=== PATIENT | female | born 1995 | race Caucasian/White ===

== ENCOUNTER 2017-07-08 05:51 | Day surgery (SDC) | payer BC, SELFPAY ==
[2017-07-06 10:04] LABS: Hematocrit 37.6 % (37-47); Hemoglobin 11.4 g/dl (12.0-15.0); Mean Corp Hgb Conc 30.3 g/gl (32-36); Mean Corpuscular Hgb 24.6 pg (27.0-32.0); Platelet Count 433 K/mm3 (150-450); RBC Distribution Width CV 15.2 % (11.6-14.6); RBC Distribution Width SD 44.4 fl (35.1-43.9); Red Blood Count 4.64 M/mm3 (4.2-5.4); White Blood Count 11.9 K/mm3 (4.4-11.0)
[2017-07-06 10:05] LABS: Scan Indicated on CBC? Y/N NO
[2017-07-06 10:10] LABS: International Normalized Ratio 1.1; Prothrombin Time (Protime)PT. 13.5 SECONDS (11.7-14.9)
[2017-07-06 10:26] LABS: Pregnancy, Serum, hCG Quali. NEGATIVE Negative (0-9 Nonpreg)
--- NOTE | 2017-07-07 | OV_PTH ---
PATIENT: SCAR CHERRY [place] [facility] [place][id number] AGE/SX: 21/F ROOM: RE07/08/[address]: Dr. Umang Lomas MD : 1995 BED: DIS: 07/08/2017 SPEC #: [id number] RECD: 07/08/17 10:45 STATUS: CORY TESSA #: [id number] KRISTEN: 07/07/17 00:[address]: Umang Lomas DEPT: SURGICAL PATHOLOGY RECD BY: Luis Enrique Ball ENTERED: 07/08/17 10:46 SP TYPE: OVARY OTHR DR: Dr. James Power MD Tissues: OVARIAN CYST Procedures: Surgery Specimen Level V HEADER OPERATION: Laparoscopic ovarian cystectomy PRE-OP DIAGNOSIS: Benign neoplasm of left ovary TISSUE SUBMITTED: Left ovarian cyst MICROSCOPIC DIAGNOSIS Left ovary and fallopian tube, salpingo-oophorectomy: Serous cystadenoma. Fallopian tube with no pathologic change. AM:natasha 07/09/17 MICROSCOPIC DESCRIPTION Slides are reviewed. GROSS DESCRIPTION Received in fixative is one container labeled with the patient's name and designated left ovarian cyst. The specimen consists of a previously opened cyst measuring 8 x 2 x 1.5 cm. The inner and outer cyst vargas do not show any papillation. The external surface is inked. A focal area of cyst shows it is filled with clear fluid. No normal ovarian tissue is identified. Also present in the container is a tubular piece of pacheco soft tissue consistent with fallopian tube measuring 2.5 cm in length and 0.9 cm in diameter. Sections reveal unremarkable cut surfaces. Giver sections are submitted in four cassettes as follows: 13 ? cyst, 4 ? fallopian tube, entirely submitted. / SJ:natasha 07/08/17 TC:Topher CPT: 02882
[2017-07-08] VITALS (8 sets, daily range): BP systolic 148–168; BP diastolic 59–86; PULSE 87–97; RESP 16–18; TEMP 36.6–37.1; O2SAT 91–99; BMI 66.8
[2017-07-08 07:17] LABS: Pregnancy, Serum, hCG Quali. NEGATIVE Negative (0-9 Nonpreg)
[2017-07-08] MEDS: Clindamycin 900 MG/50 ML BAG 75 MG IV (07:30)
--- NOTE | 2017-07-08 07:34 | PCM.DC ---
You will use the following diet at home:: No restrictions Your food should be the consistency of: Regular Discharge Activity: Return to Normal Activity, May Drive, May not drive while taking narcotic pain medications., May Shower Return to work on:: 07/15/17 May shower in (days): 0 May resume sexual activity in: 4 weeks Call your doctor if your incision/area has: Sudden Increased Bleeding, Increased Pain/ Swelling, Increased Redness, Foul Smelling Discharge, Swelling at the incision site Call your doctor if you observe: Fever of 101 or Higher, Inability to urinate, Inability to have a bowel movement, Using more than one pad per hour, Shortness of breath, Chest pain, Calf discomfort, Uncontrolled pain Remove Dressing in (days):: 2 Cleanse incision/area with: Soap & Water Allergies/Adverse Reactions: Allergies penicillin V potassium [From Pen-Vee K] Allergy (Mild, Verified 07/07/17 09:33) Rash brompheniramine maleate [From Dimetapp (brompheniramine-PPA)] Allergy (Verified 07/07/17 09:33) Shortness of breath celery Allergy (Verified 07/07/17 09:33) Swelling phenylpropanolamine HCl [From Dimetapp (brompheniramine-PPA)] Allergy (Verified 07/07/17 09:33) Shortness of breath amoxicillin trihydrate [From Augmentin] Adverse Reaction (Intermediate, Verified 07/07/17 09:33) Diarrhea potassium clavulanate [From Augmentin] Adverse Reaction (Intermediate, Verified 07/07/17 09:33) Diarrhea dicyclomine HCl [From Bentyl] Adverse Reaction (Verified 07/07/17 09:33) Nausea/Vom/Diarrhea FRUCTOSE Allergy (Uncoded 07/01/17 22:48) Other plastic tape Allergy (Uncoded 07/01/17 22:48) Rash Medications to take at Discharge Omeprazole [Prilosec] 40 mg PO PRN PRN 03/11/13 Albuterol Inhaler [Ventolin Hfa] 1 - 2 puff INHALATION Q4H PRN PRN #1 inhaler 06/30/15 Albuterol Aerosols [Ventolin Aerosols] 2.5 mg INHALATION Q4H PRN PRN 07/13/16 Epinephrine [Epi Pen] 0.3 mg IM X1 #1 syringe 06/08/17 Beclomethasone Diprop Inhaler [Qvar 80 Mcg Inhaler] 2 puff INHALATION BID 06/29/17 Diclofenac [Voltaren] 75 mg PO BIDCM 06/29/17 Oxycodone HCl/Acetaminophen [Percocet 5-325] 1 tab PO Q6H PRN PRN #8 tab 06/30/17 Sprintec 1 tab PO DAILY 07/07/17 Oxycodone [Oxyir] 10 mg PO Q4H PRN PRN #30 tab 07/08/17 The following prescriptions were given: Oxycodone [Oxyir] 10 mg PO Q4H PRN PRN #30 tab PRN Reason: Severe Pain (6-03/17) Primary Care Physician: James Power MD [Primary Care Provider] - Please Follow Up With: Umang Lomas MD When: one week Proposed Discharge Date: 07/08/17
[2017-07-08] MEDS: Bupivacaine 0.25% 30 ML Vial (08:30)
--- NOTE | 2017-07-08 08:34 | PCM.IMDPSTOP ---
Problem List (1) Paratubal cyst Status: Acute Immediate Post-Op Note Date of Procedure: 07/08/17 Primary Surgeon/Physician: Umang Lomas research compliance specialist: Christopher Coronado Pre-Operative Diagnosis: Left adnexal cyst Post-Operative Diagnosis: Left paratubal cyst Surgery/Procedure Performed:: Lapraoscopic left paratubal cystectomy Description of Surgical Findings:: Left fallopian tube with multiloculated simple paratubal cysts with 3 ditinct compartments. Largest about 8 cm in size. Fluid within the cysts clear. Normal appearing left and right ovaries, normal uterus Estimated Blood Loss: minimal Specimen's removed: left paratubal cyst Drains: none Type of Anesthesia:: General ASA Class: ASA3 Severe Disease - Admit VTE Documentation VTE Present on Admission: No VTE Mechan Device Prophylaxis: SCD's VTE Pharm Prophylaxis ordered?: No
--- NOTE | 2017-07-08 08:37 | OP.PN_ITS ---
Problem List (1) Paratubal cyst Status: Acute Immediate Post-Op Note Date of Procedure: 07/08/17 Primary Surgeon/Physician: Umang Lomas heel padder: Christopher Coronado Pre-Operative Diagnosis: Left adnexal cyst Post-Operative Diagnosis: Left paratubal cyst Surgery/Procedure Performed:: Lapraoscopic left paratubal cystectomy Description of Surgical Findings:: Left fallopian tube with multiloculated simple paratubal cysts with 3 ditinct compartments. Largest about 8 cm in size. Fluid within the cysts clear. Normal appearing left and right ovaries, normal uterus Estimated Blood Loss: minimal Specimen's removed: left paratubal cyst Drains: none Type of Anesthesia:: General ASA Class: ASA3 Severe Disease - Admit VTE Documentation VTE Present on Admission: No VTE Mechan Device Prophylaxis: SCD's VTE Pharm Prophylaxis ordered?: No
[2017-07-08] MEDS: Ketorolac 30 MG/ML Syringe IV (09:16)
--- NOTE | 2017-07-08 16:58 | PCM.OPRPT ---
Problem List (1) Paratubal cyst Status: Chronic Report of Operation Date of Procedure: 07/08/17 Pre-Operative Diagnosis: Left adnexal cyst Post-Operative Diagnosis: Left paratubal cyst Surgery/Procedure Performed:: Lapraoscopic left paratubal cystectomy Description of Surgical Findings:: Left fallopian tube with multiloculated simple paratubal cysts with 3 ditinct compartments. Largest about 8 cm in size. Fluid within the cysts clear. Normal appearing left and right ovaries, normal uterus relief captain: Christopher Coronado Type of Anesthesia:: General Anesthesiologist: Nain Ocampo Specimen's removed: left paratubal cyst Drains: none Estimated Blood Loss (mL): minimal Fluids Replaced: 1000cc Description of Procedure: Georgiana was taken to the OR with IV running. She was given clindamycin and gentamicin intravenously as surgical prophylaxis. General anesthesia was then introduced without complication. She was prepped and draped in the dorsal lithotomy position. SCDs were in place and operational throughout the case. A red rubber catheter was then used to drain the bladder. An acorn type uterine manipulator was placed. Attention was then directed toward the abdomen where a 10mm incision was made in the lower base of the umbilicus. The underlying subcutaneous tissue was dissected down to the level of fascia using a Lorraine clamp. The abdomen was then elevated and a Veress needle was placed through this defect. The abdomen was then inflated with CO2 gas to a pressure of 15 Torr. The Veress need was removed and replaced with a 5 mm trocar and sleeve. The trocar was removed and replaced with the laparoscope. Two additional 5 mm ports were placed under direct visualization with the laparoscope. One approximately 4 cm below the level of the umbilicus lateral to the epigastric vessels and the other in the midline assisted between the umbilicus and the symphysis pubis. A thorough survey of the abdomen and pelvis was performed. This was difficult due to the patients habitus. The left fallopian tube was noted to have 3 large fluid filled cysts originating in the paratubal area. Using the suction superintendent marine with a needle tip the cysts were aspirated. The was noted to be some adhesions between the bowel and the cyst vargas. The paratubal cysts were then carefully dissected from the fallopian tube, bowel, and left pelvic sidewall. A 12 mm trocar was placed in the umbilicus to accomodate the endocatch. The cyst wall was then removed with the endocatch. The left fallopian tube and ovary appeared intact. The surgical sites appeared hemostatic. The port sites were then removed with visualization of the laparoscope. The gas was evacuated. A deep suture of 0-vicryl was placed in the deep umbilical tissue and the skin incisions were closed with 4-0 Monocryl suture. The incision sites were injected with 0.25% Marcaine. Sponge, lap, and needle counts were correct. The uterine manipulator was removed. She was reversed from anesthesia and taken to the recovery room in stable condition. - Complications none - Admit VTE Documentation VTE Present on Admission: No VTE Mechan Device Prophylaxis: SCD's VTE Pharm Prophylaxis ordered?: No
--- NOTE | 2017-07-08 17:05 | OP.PCM_ITS ---
Problem List (1) Paratubal cyst Status: Chronic Report of Operation Date of Procedure: 07/08/17 Pre-Operative Diagnosis: Left adnexal cyst Post-Operative Diagnosis: Left paratubal cyst Surgery/Procedure Performed:: Lapraoscopic left paratubal cystectomy Description of Surgical Findings:: Left fallopian tube with multiloculated simple paratubal cysts with 3 ditinct compartments. Largest about 8 cm in size. Fluid within the cysts clear. Normal appearing left and right ovaries, normal uterus crude oil treater: Christopher Coronado Type of Anesthesia:: General Anesthesiologist: Nain Ocampo Specimen's removed: left paratubal cyst Drains: none Estimated Blood Loss (mL): minimal Fluids Replaced: 1000cc Description of Procedure: Georgiana was taken to the OR with IV running. She was given clindamycin and gentamicin intravenously as surgical prophylaxis. General anesthesia was then introduced without complication. She was prepped and draped in the dorsal lithotomy position. SCDs were in place and operational throughout the case. A red rubber catheter was then used to drain the bladder. An acorn type uterine manipulator was placed. Attention was then directed toward the abdomen where a 10mm incision was made in the lower base of the umbilicus. The underlying subcutaneous tissue was dissected down to the level of fascia using a Lorraine clamp. The abdomen was then elevated and a Veress needle was placed through this defect. The abdomen was then inflated with CO2 gas to a pressure of 15 Torr. The Veress need was removed and replaced with a 5 mm trocar and sleeve. The trocar was removed and replaced with the laparoscope. Two additional 5 mm ports were placed under direct visualization with the laparoscope. One approximately 4 cm below the level of the umbilicus lateral to the epigastric vessels and the other in the midline alf between the umbilicus and the symphysis pubis. A thorough survey of the abdomen and pelvis was performed. This was difficult due to the patients habitus. The left fallopian tube was noted to have 3 large fluid filled cysts originating in the paratubal area. Using the suction science interpreter with a needle tip the cysts were aspirated. The was noted to be some adhesions between the bowel and the cyst vargas. The paratubal cysts were then carefully dissected from the fallopian tube, bowel, and left pelvic sidewall. A 12 mm trocar was placed in the umbilicus to accomodate the endocatch. The cyst wall was then removed with the endocatch. The left fallopian tube and ovary appeared intact. The surgical sites appeared hemostatic. The port sites were then removed with visualization of the laparoscope. The gas was evacuated. A deep suture of 0-vicryl was placed in the deep umbilical tissue and the skin incisions were closed with 4-0 Monocryl suture. The incision sites were injected with 0.25% Marcaine. Sponge, lap, and needle counts were correct. The uterine manipulator was removed. She was reversed from anesthesia and taken to the recovery room in stable condition. - Complications none - Admit VTE Documentation VTE Present on Admission: No VTE Mechan Device Prophylaxis: SCD's VTE Pharm Prophylaxis ordered?: No
== END 2017-07-08 11:21 | disposition home or self-care (01) ==
LOC: SDC 05:51 → AC 05:52
PROVIDERS: Anesthesiology; Family Provider Pediatrics; PCP Pediatrics; Visit Provider Obstetrics & Gynecology
PROC: (CPT 58662; principal; 2017-07-08 07:15)
DX: D27.1 Benign neoplasm of left ovary (principal); J45.909 Unspecified asthma, uncomplicated; K21.9 Gastro-esophageal reflux disease without esophagitis; N28.9 Disorder of kidney and ureter, unspecified; F41.9 Anxiety disorder, unspecified; Z79.891 Long term (current) use of opiate analgesic; Z79.51 Long term (current) use of inhaled steroids; Z79.899 Other long term (current) drug therapy
CPT/HCPCS: 00840; 58662; 36415; 84703; 85027; 85610; 85730; 86850; 86900; 88305; 88307; J7120; J2405

== ENCOUNTER → 2017-08-12 11:10 | Outpatient (CLI) | payer BC, SELFPAY ==
[2017-08-12 13:15] LABS: Follicle Stimulating Hormone 4.1 mIU/mL
[2017-08-15 12:42] LABS: Estrogen, Total, Serum 199 pg/mL (.)
== END ==
PROVIDERS: Visit Provider Obstetrics & Gynecology
DX: E28.2 Polycystic ovarian syndrome (principal)
CPT/HCPCS: 36415; 82672; 83001

== ENCOUNTER 2017-11-01 22:47 | Emergency (ER) | payer BC, SELFPAY ==
--- NOTE | 2017-11-01 | RAD_ITS ---
STUDY: X-RAY CHEST REASON FOR EXAM: Female, 22 years old. Cough, weakness. TECHNIQUE: PA and lateral chest. COMPARISON: July 02, 2015. FINDINGS: The lungs are clear and expanded. There is no demonstrated pleural abnormality. Normal size heart. Normal mediastinum and ana cristina. Normal visualized pulmonary arteries. Normal visualized aortic arch and descending thoracic aorta. Normal visualized thoracic spine. Normal visualized ribs, clavicles, and shoulders. There is no demonstrated abnormality of the visualized soft tissue structures of the upper abdomen. RAD/Chest PA and Lateral IMPRESSION: Normal x-ray examination of the chest. Electronically Signed: Boom Mahoney MD at 1:28 EDT , Service support ,
[2017-11-01 22:49] VITALS: BP 158/78; PULSE 123; RESP 24; TEMP 38.4; O2SAT 98; BMI 66.9
--- NOTE | 2017-11-01 23:16 | ED.VISSUMM ---
- ER Visit Summary Date of Service: 11/01/17 Chief Complaint: [] Cough, dizziness History of Present Illness: The patient is a 22 F [] very morbidly obese weighing approximately 200 kg complaining of cough, dizziness, fever, sore throat, malaise. Presents with mother at the bedside. Patient reports she was seen at urgent care yesterday and evaluated and told to use albuterol inhaler. She then had a repeat visit today to the urgent care and underwent a rapid strep test which was negative. She was started on prednisone tablets and encouraged follow-up with her PCP. They present today with fever and dizziness. Patient denies headache or neck pain. She does report a past medical history of asthma, fructose intolerance, PCOS, cholecystectomy. Physical Examination: [] Tachycardic at 123. Febrile 101.1. BP 158/78. 22-year-old female in no acute distress. Very morbidly obese as previously indicated, weighing over 200 kg. HEENT reveals moist mucous membranes without any significant oropharyngeal erythema or exudates. There is no meningismus on neck exam. Cardiovascular exam is regular rate and rhythm. Lungs are clear to auscultation. Abdomen is soft and nontender. Test Results: [] Chest x-ray 2 views: Interpreted as negative by radiologist. Labs: Elevated white blood cell count 22.6. BMP, LFTs, urinalysis normal. UA: Negative. Emergency Department Course and Treatment: [] Patient given intravenous fluid bolus, intravenous Toradol for symptom relief and fever. The patient's white blood cell count may be elevated secondary to initiation of steroids in the previous day. However in light of her fever elevated white count and tachycardia I lean toward the side of treatment and provided her with intravenous Rocephin and oral azithromycin. Her chest x-ray was negative. She will be treated for bronchitis with a outpatient prescription for azithromycin for the next 4 days beginning tomorrow. Patient and patient's mother at the bedside are amenable to this plan and follow-up. Treatment Plan: [] Follow-up with PCP. Outpatient antibiotics. Disposition: [] Discharge, stable. Impression: [] Bronchitis This note was generated with [employer] dictation software. It may contain incorrect words, spelling, and punctuation that were not noted in review of the chart prior to signing ED Disposition - Plan for ED Patient: Chief Complaint: General Illness Referrals: James Power MD [Primary Care Provider] -
[2017-11-01] MEDS: 0.9% Normal Saline 1,000 ML 1000 ML IV (23:52)
[2017-11-01] MEDS: Ketorolac 15 MG/ML Vial IV (23:52)
[2017-11-01 23:55] LABS: Absolute Lymphocyte Count 1.77 X10^3/ul (0.83-4.51); Absolute Neutrophil Count 19.5 X10^3/uL (2.0-7.7); Basophil# 0.02 X10^3/uL; Basophil% 0.1 % (0-1); Eosinophil# 0.03 X10^3/uL; Eosinophils% 0.1 % (0-5); Hemoglobin 11.7 g/dl (12.0-15.0); Lymphocyte # 1.77 X10^3/ul (4.0); Lymphocyte % 7.8 % (19-41); Mean Corp Hgb Conc 31.6 g/gl (32-36); Mean Corpuscular Hgb 24.6 pg (27.0-32.0); Mean Corpuscular Volume 77.9 fL (81-99); Mean Platelet Vol. 9.5 fl (6.2-12.0); Monocyte# 1.27 X10^3/uL; Monocyte% 5.6 % (0-10); Neutrophil # 19.47 X10^3/uL (2.7-7.7); Neutrophil % 86.1 % (47-70); Platelet Count 351 K/mm3 (150-450); RBC Distribution Width SD 45.4 fl (35.1-43.9); Red Blood Count 4.75 M/mm3 (4.2-5.4); White Blood Count 22.6 K/mm3 (4.4-11.0)
[2017-11-01 23:55] LABS: Color, Urine Yellow (Yellow); Glucose, Dipstick 1000 mg/dl (Normal); Ketone-Dipstick Negative (Negative); Leukocyte Esterase-Dipstick 500 /ul (Negative); Nitrite-Dipstick Negative (Negative); Occult Blood-Urine 50 /ul (Negative); Protein-Dipstick 30 mg/dl (Negative); Specific Gravity, Urine 1.005 (1.002-1.030); Urine Bilirubin Dipstick Negative (Negative); Urine Clarity Sl. Cloudy (Clear); Urine Urobilinogen Normal (Normal)
[2017-11-01 23:59] LABS: POSITIVE COUNT NO; POSITIVE DIFFERENTIAL NO; POSITIVE MORPHOLOGY NO
[2017-11-02 00:14] LABS: ALB/GLOB Ratio 0.7 RATIO (0.9-2.4); AST(SGOT) 38 U/L (15-37); Alanine Aminotransfer ALT/SGPT 81 U/L (13-56); Albumin, Serum 3.2 g/dL (3.2-5.0); Alkaline Phosphatase 83 U/L (45-117); Anion Gap 7 (5-15); BUN 8 mg/dL (7-18); BUN/Creat Ratio 11.1 RATIO (10-20); Calcium,Total 8.8 mg/dL (8.5-10.1); Chloride 104 mmol/L (98-107); Creatinine, Serum 0.72 mg/dL (0.55-1.02); EST Glomerular Filtration Rate 110 mL/min (>60); Est Glom Filt Rate - Afr Amer 133 mL/min (>60); Estimated Creatinine Clearance 125.73 ml/min; Globulin 4.7 g/dL (2.2-4.2); Glucose 248 mg/dL (74-106); Potassium 3.9 mmol/L (3.5-5.1); Protein, Total 7.9 g/dL (6.4-8.2); Sodium Level 136 mmol/L (136-145)
[2017-11-02] MEDS: Ceftriaxone 1 GM/50 ML BAG IV (01:18)
[2017-11-02] MEDS: Azithromycin 250 MG Tablet 500 MG PO (01:55)
--- NOTE | 2017-11-02 01:56 | ED.DEP ---
ED Disposition - Plan for ED Patient: Disposition: Home or Assisted Living Chief Complaint: General Illness Instructions: Acute Bronchitis Prescriptions: Azithromycin 250 mg PO DAILY #4 tab Referrals: James Power MD [Primary Care Provider] -
[2017-11-02 02:03] VITALS: RESP 18; O2SAT 97
== END 2017-11-02 02:09 | disposition home or self-care (01) ==
PROVIDERS: Emergency Provider Emergency Medicine; Family Provider Pediatrics; PCP Pediatrics
DX: J40 Bronchitis, not specified as acute or chronic (principal); E66.01 Morbid (severe) obesity due to excess calories; E28.2 Polycystic ovarian syndrome; E74.10 Disorder of fructose metabolism, unspecified; J45.909 Unspecified asthma, uncomplicated; Z79.51 Long term (current) use of inhaled steroids; Z79.899 Other long term (current) drug therapy
CPT/HCPCS: 71046; 80053; 81002; 85025; 96361; 96365; 96375; 99285; J7030; A4216

== ENCOUNTER 2018-01-02 22:30 | Emergency (ER) | payer BC, SELFPAY ==
[2018-01-02 22:32] VITALS: BP 176/80; PULSE 95; RESP 15; TEMP 37.4; O2SAT 97; BMI 67.1
--- NOTE | 2018-01-02 23:13 | CT_ITS ---
STUDY: CT ABDOMEN AND PELVIS WITH CONTRAST REASON FOR EXAM: Female, 22 years old. Right lower quadrant pain RADIATION DOSAGE (If Supplied By Facility): CTDIvol = ( 17.07 ) mGy, DLP = ( 1288.62 ) mGycm TECHNIQUE: Transaxial images were obtained from the dome of the diaphragm to the symphysis pubis without oral contrast. 100 ml of Isovue 300 contrast was administered. Sagittal and coronal images were reconstructed. Individualized dose optimization techniques were used for this CT. COMPARISON: None. FINDINGS: The visualized lung bases are unremarkable. The visualized portions of the heart are within normal limits. Mild hypoattenuation of the liver parenchyma. Gallbladder is surgically absent. No biliary duct dilatation. Normal spleen. Normal pancreas. 1.7 cm left adrenal gland nodule, slightly increased in size compared to prior imaging, previously measuring 1.2 cm. 5 mm calculus in the right lower pole. No hydronephrosis. Left kidney is normal. Bilateral ureters are normal. Normal visualized stomach. Normal small intestine. Normal colon. The appendix is visualized and appears normal. Normal abdominal aorta. Normal inferior vena cava. Normal retroperitoneum. Normal urinary bladder. Uterus and bilateral adnexa are unremarkable. Normal abdominal wall. Normal osseous structures. CT/Abdomen/Pelvis W IV Cont ONLY IMPRESSION: 1. Mild fatty infiltration of the liver. 2. 1.7 cm left adrenal gland nodule which has increased in size. Dedicated MR imaging is recommended for further characterization. 3. Nonobstructing 5 mm right lower renal pole calculus. Electronically Signed: Luis Enrique De Paz MD at 1:56 EDT Tel , Service support ,
--- NOTE | 2018-01-02 23:18 | ED.DCSUM_ITS ---
- ER Visit Summary Date of Service: 01/02/18 Chief Complaint: Right lower quadrant abdominal pain History of Present Illness: The patient is a 22 F 3 of polycystic ovarian syndrome, depression, anxiety and asthma. Patient has had a prior cholecystectomy and surgery for left ovarian cysts. She states for the last 5 days she has had right lower quadrant abdominal pain. Associated with nausea, vomiting and diarrhea the last 4 days. Denies any dysuria. Cannot remember her last menstrual period and states that they are very irregular. Currently she is on control. She denies any fever. She denies any back pain. She denies any abdominal trauma. She had pain similar to this before when she had a left ovarian cyst she had right lower quadrant abdominal pain she states. She denies any vaginal bleeding or discharge. Physical Examination: Well-appearing young female. Vital signs are stable and afebrile. She does not look septic or toxic. She is in no acute distress. H EENT exam unremarkable. Moist mucous membranes. Neck nontender. No lymphadenopathy. Lungs clear to auscultation bilaterally. Heart regular rhythm no murmur. Abdomen is morbidly obese. Soft. Her only tenderness is in the right lower quadrant. Normal bowel sounds. No peritoneal signs. Right upper, left upper and left lower quadrants are all nontender. No hernias or masses. Nondistended no signs of obstruction. She is moving all 4 extremities. They are neurovascularly intact. Back is nontender. Neurologically she is awake and alert with no focal motor deficits. Test Results: CBC shows an elevated white count of 16,600 but previously was much higher. Hemoglobin of 11 which is her baseline. No bands. BMP is normal with a creatinine of 0.7 and a normal gap. Liver enzymes are unremarkable except for an ALT slightly elevated at 101 and AST of 70. UA is normal. Serum test is negative. CT abdomen and pelvis with IV contrast only showed a fatty liver. A 1.7 cm left adrenal gland nodule. Which will need further evaluation and I discussed with patient. A right renal stone. The appendix was seen and appeared normal. No ovarian cyst seen. Emergency Department Course and Treatment: Patient treated with IV Toradol for pain. A liter of normal saline. Zofran for nausea. Treatment Plan: Multiple repeat exams patient's abdomen remains benign. Minimally tender in the right lower quadrant. No peritoneal signs. She and I discussed all test results and need for follow-up. She will be given a Zofran home pack for nausea. Follow-up with her primary care physician. Disposition: Discharge Impression: Acute right lower quadrant abdominal pain of uncertain etiology This note was generated with [employer] dictation software. It may contain incorrect words, spelling, and punctuation that were not noted in review of the chart prior to signing ED Disposition - Plan for ED Patient: Disposition: Home or Assisted Living Chief Complaint: Abd Pain Instructions: ED Abdominal Pain Unkn Cause Referrals: James Power MD [Primary Care Provider] - 3-5 Days if not improving Additional Instructions: Plenty of fluids and rest. Tylenol and Motrin for pain as needed. Zofran as needed for nausea and vomiting. Call and follow-up with your doctor if not improving or return to ER feeling worse.
--- NOTE | 2018-01-02 23:27 | ED.DEP ---
ED Disposition - Plan for ED Patient: Disposition: Home or Assisted Living Chief Complaint: Abd Pain Instructions: ED Abdominal Pain Unkn Cause Referrals: James Power MD [Primary Care Provider] - 3-5 Days if not improving Additional Instructions: Plenty of fluids and rest. Tylenol and Motrin for pain as needed. Zofran as needed for nausea and vomiting. Call and follow-up with your doctor if not improving or return to ER feeling worse. Zofran as needed for nausea. You will need further evaluation of the left adrenal gland nodule in the future.
[2018-01-02] MEDS: Ketorolac 30 MG/ML Syringe IV (23:45)
[2018-01-02] MEDS: Ondansetron 4 MG/2 ML Vial IV (23:45)
[2018-01-02] MEDS: 0.9% Normal Saline 1,000 ML 1000 ML IV (23:45)
[2018-01-02 23:51] LABS: Absolute Lymphocyte Count 3.85 X10^3/ul (0.83-4.51); Absolute Neutrophil Count 11.3 X10^3/uL (2.0-7.7); Basophil# 0.05 X10^3/uL; Basophil% 0.3 % (0-1); Eosinophil# 0.37 X10^3/uL; Eosinophils% 2.2 % (0-5); Hematocrit 36.6 % (37-47); Hemoglobin 11.7 g/dl (12.0-15.0); Lymphocyte # 3.85 X10^3/ul (4.0); Lymphocyte % 23.1 % (19-41); Mean Corpuscular Hgb 25.4 pg (27.0-32.0); Mean Corpuscular Volume 79.4 fL (81-99); Mean Platelet Vol. 9.9 fl (6.2-12.0); Monocyte# 0.98 X10^3/uL; Monocyte% 5.9 % (0-10); Neutrophil # 11.33 X10^3/uL (2.7-7.7); Neutrophil % 68.1 % (47-70); Platelet Count 388 K/mm3 (150-450); RBC Distribution Width CV 16.2 % (11.6-14.6); RBC Distribution Width SD 46.2 fl (35.1-43.9); Red Blood Count 4.61 M/mm3 (4.2-5.4); White Blood Count 16.6 K/mm3 (4.4-11.0)
[2018-01-02 23:53] LABS: POSITIVE COUNT NO; POSITIVE DIFFERENTIAL NO; POSITIVE MORPHOLOGY NO
[2018-01-03 00:15] LABS: Color, Urine Yellow (Yellow); Glucose, Dipstick Normal (Normal); Ketone-Dipstick Negative (Negative); Leukocyte Esterase-Dipstick 25 /ul (Negative); Nitrite-Dipstick Negative (Negative); Occult Blood-Urine 10 /ul (Negative); Protein-Dipstick 15 mg/dl (Negative); Specific Gravity, Urine 1.015 (1.002-1.030); Urine Bilirubin Dipstick Negative (Negative); Urine Clarity Sl. Cloudy (Clear); Urine Urobilinogen Normal (Normal); Urine pH 6.5 (5.0 - 8.0)
[2018-01-03 00:16] LABS: AST(SGOT) 70 U/L (15-37); Alanine Aminotransfer ALT/SGPT 101 U/L (13-56); Albumin, Serum 3.4 g/dL (3.2-5.0); Alkaline Phosphatase 82 U/L (45-117); Anion Gap 8 (5-15); BUN 8 mg/dL (7-18); BUN/Creat Ratio 11.4 RATIO (10-20); Calcium,Total 9.5 mg/dL (8.5-10.1); Chloride 105 mmol/L (98-107); EST Glomerular Filtration Rate 112 mL/min (>60); Est Glom Filt Rate - Afr Amer 136 mL/min (>60); Estimated Creatinine Clearance 129.32 ml/min; Globulin 4.8 g/dL (2.2-4.2); Glucose 144 mg/dL (74-106); Potassium 3.9 mmol/L (3.5-5.1); Protein, Total 8.2 g/dL (6.4-8.2); Sodium Level 140 mmol/L (136-145)
[2018-01-03 00:25] LABS: Bacteria 2+ /hpf (None Seen); Mucous, Urine 1+ /hpf (<or=2+); Red Blood Cells-Urine 0-5 SEEN /hpf (0-5); Squamous Epithelial Cells - UA 0-5 SEEN /hpf (5-10); White Blood Cells 0-5 SEEN /hpf (0-5)
[2018-01-03 00:48] LABS: Pregnancy, Serum, hCG Quali. NEGATIVE Negative (0-9 Nonpreg)
[2018-01-03 01:09] VITALS: BP 158/62; PULSE 97; RESP 15; O2SAT 98
[2018-01-03 03:02] VITALS: BP 134/71; PULSE 75; RESP 16; O2SAT 99
[2018-01-03] MEDS: Ondansetron ODT 4 MG Tablet 16 MG PO (03:05)
== END 2018-01-03 03:06 | disposition home or self-care (01) ==
PROVIDERS: Emergency Provider Emergency Medicine; Family Provider Pediatrics; PCP Pediatrics
DX: R10.31 Right lower quadrant pain (principal); E28.2 Polycystic ovarian syndrome; F32.9 Major depressive disorder, single episode, unspecified; F41.9 Anxiety disorder, unspecified; J45.909 Unspecified asthma, uncomplicated; Z79.51 Long term (current) use of inhaled steroids; Z79.899 Other long term (current) drug therapy
CPT/HCPCS: 74177; 80048; 80076; 81001; 84703; 85025; 96361; 96374; 96375; 99285; J7030; J2405

== ENCOUNTER 2018-06-25 14:17 | Emergency (ER) | payer BC, SELFPAY ==
[2018-06-25 14:19] VITALS: BP 178/113; PULSE 109; RESP 28; TEMP 36.2; O2SAT 98; BMI 67.3
[2018-06-25 14:43] VITALS: PULSE 117; RESP 20
[2018-06-25] MEDS: Racepinephrine HCl 0.5 ML VIAL.NEB. INHALATION (14:43)
--- NOTE | 2018-06-25 14:51 | EKG12_ITS ---
Test Reason : SOB Blood Pressure : / mmHG Vent. Rate : 105 BPM Atrial Rate : 105 BPM P-R Int : 152 ms QRS Dur : 094 ms QT Int : 358 ms P-R-T Axes : 048 032 028 degrees QTc Int : 473 ms Sinus tachycardia Cannot rule out Anterior infarct , age undetermined Abnormal ECG Confirmed by MARIO MARCH, TED ([id number]), online content editor COLLETTE SIMPSON ([id number]) on 06/28/2018 9:46:24 AM Referred By: YVETTE Confirmed By:TED MARTIN MD
--- NOTE | 2018-06-25 14:51 | RAD_ITS ---
STUDY: X-RAY CHEST REASON FOR EXAM: Female, 22 years old. Chest pain. TECHNIQUE: Single AP portable view of the chest. COMPARISON: Comparison is made with prior study dated November 02, 2017. FINDINGS: EKG electrodes are seen. The lungs are clear and expanded. There is no demonstrated pleural abnormality. Normal size heart. Normal mediastinum and ana cristina. Normal visualized pulmonary arteries. Normal visualized aortic arch and descending thoracic aorta. Normal visualized thoracic spine. Normal visualized ribs, clavicles, and shoulders. There is no demonstrated abnormality of the visualized soft tissue structures of the upper abdomen. RAD/Chest 1 View (Portable) IMPRESSION: Normal x-ray examination of the chest. Electronically Signed: Geovanni Retana MD at 15:30 EST Tel [phone], Service support ,
[2018-06-25 15:10] VITALS: PULSE 113; RESP 18; O2SAT 98
[2018-06-25 15:12] VITALS: O2SAT 98
[2018-06-25 15:21] LABS: Absolute Lymphocyte Count 2.81 X10^3/ul (0.83-4.51); Absolute Neutrophil Count 14.7 X10^3/uL (2.0-7.7); Basophil# 0.04 X10^3/uL; Basophil% 0.2 % (0-1); Eosinophil# 0.03 X10^3/uL; Eosinophils% 0.2 % (0-5); Hemoglobin 12.7 g/dl (12.0-15.0); Lymphocyte # 2.81 X10^3/ul (4.0); Lymphocyte % 15.4 % (19-41); Mean Corpuscular Hgb 24.3 pg (27.0-32.0); Mean Corpuscular Volume 78.4 fL (81-99); Mean Platelet Vol. 10.3 fl (6.2-12.0); Monocyte# 0.58 X10^3/uL; Monocyte% 3.2 % (0-10); Neutrophil # 14.68 X10^3/uL (2.7-7.7); Neutrophil % 80.5 % (47-70); Platelet Count 468 K/mm3 (150-450); RBC Distribution Width CV 16.1 % (11.6-14.6); RBC Distribution Width SD 45.7 fl (35.1-43.9); Red Blood Count 5.23 M/mm3 (4.2-5.4); White Blood Count 18.2 K/mm3 (4.4-11.0)
[2018-06-25] MEDS: MethylPREDNISolone 125 MG/2 ML Vial IV (15:21)
[2018-06-25 15:22] LABS: POSITIVE COUNT NO; POSITIVE DIFFERENTIAL NO; POSITIVE MORPHOLOGY NO
--- NOTE | 2018-06-25 15:42 | NURSING ---
GREEN TUBE HEMOLIZED
--- NOTE | 2018-06-25 15:43 | ED.DCSUM_ITS ---
- ER Visit Summary Date of Service: 06/25/18 Chief Complaint: Shortness of breath History of Present Illness: The patient is a 22 F with shortness of breath for several days. She saw her doctor on Thursday and was prescribed prednisone and Omnicef. She has been using nebulizers every 4 hours with minimal improvement. Denies fevers. She does have a cough but denies sputum. No hemoptysis. No chest pain. No leg pain or swelling. Heart disease, dissection, or PE. Physical Examination: Afebrile. Blood pressure 178/113 and heart rate 109. Respiratory rate 28. 98% on room air. Patient is alert and oriented. No acute distress. HEENT exam unremarkable. Initial lung sounds in all garcia. Heart tachycardic but regular. Extremities nontender with no edema. Skin appears normal. Test Results: EKG showed sinus tachycardia at a rate of 105. No sign of acute ischemia or infarction pattern. Laboratory studies and chest x-ray pending. Emergency Department Course and Treatment: On arrival, respiratory therapy saw the patient and was concerned that she had stridor. Patient was treated with racemic epinephrine. I first saw the patient at the end of her racemic treatment, and her stridor had resolved. She had diminished breath sounds in all garcia. Because of her failure of outpatient treatment, I did check labs, EKG, and chest x-ray. Results are pending. The oncoming doctor will check and reevaluate the patient. Treatment Plan: As above Disposition: Pending reevaluation Impression: 1. Dyspnea This note was generated with [employer] dictation software. It may contain incorrect words, spelling, and punctuation that were not noted in review of the chart prior to signing ED Disposition - Plan for ED Patient: Chief Complaint: Cough Referrals: James Power MD [Primary Care Provider] -
--- NOTE | 2018-06-25 16:32 | ED.RN ---
CALLED TO ROOM, PT C/O SOB. UPON ARRIVAL IN ROOM, PT HYPERVENTILATING. GUIDED PT TO TAKE SLOW DEEP BREATHS, AND GIVEN EMOTIONAL SUPPORT. PT STS IS FEELING BETTER NOW. STS WAS LAYING DOWN, SLEEPING WHEN THE SENSATION OF SOB STARTED.
[2018-06-25 16:36] LABS: Anion Gap 10 (5-15); BUN 14 mg/dL (7-18); BUN/Creat Ratio 18.3 RATIO (10-20); Calcium,Total 9.6 mg/dL (8.5-10.1); Chloride 101 mmol/L (98-107); Creatinine, Serum 0.77 mg/dL (0.55-1.02); EST Glomerular Filtration Rate 101 mL/min (>60); Est Glom Filt Rate - Afr Amer 122 mL/min (>60); Estimated Creatinine Clearance 117.56 ml/min; Glucose 302 mg/dL (74-106); Potassium 4.2 mmol/L (3.5-5.1); Sodium Level 134 mmol/L (136-145)
[2018-06-25 17:24] VITALS: BP 158/88; PULSE 78; RESP 20; O2SAT 97
--- NOTE | 2018-06-25 17:24 | ED.DEP ---
ED Disposition - Plan for ED Patient: Disposition: Home or Assisted Living Chief Complaint: Cough Instructions: ED Bronchitis Asthmatic Referrals: James Power MD [Primary Care Provider] - 3-5 Days if not improving Additional Instructions: Continue your current medications including your antibiotic, steroids and aerosol treatments.
--- OUTSIDE RECORDS SUMMARY | 2018-08-30 05:26 | XMS RPT_ITS ---
:1995 Author Organization OHIP Support Name Relationship Address Phone GORDO WHITE Unavailable [address] + [place] [address] ALEYDA WHITE Unavailable [address] [place] [address] ST + [place] [address] [facility]ARE Unavailable [address] + [place] [address] GORDO WHITE Unavailable [address] [place] [address] ST + [place] [address] WANGBertinALEYDA Unavailable [address] [place] [address] ST + [place] [address] [facility] Unavailable [address] + [place] [address] GORDO WHITE Unavailable [address] + [place] [address] ALEYDA WHITE Unavailable [address] + [place] [address] [facility] CARE Unavailable [address] + [place] [address] GORDO WHITE Unavailable [address] [place] [address] ST + [place] [address] HAVEN ALEYDA Unavailable [address] + [place] [address] KIDS GIGGLES Un[address] + [place] [address] GORDO WHITE Unavailable [address] + [place] [address] CINDYALEYDA Unavailable [address] + [place] [address] KIDS GIGGLES Unavailable [address] + [place] [address] Care Team Providers Name Role Phone CROW POWER Attending Unavailable PLAYL, CROW M Attending Unavailable JYOTI RIOS (NATURAL RESOURCES SPECIALIST) Attending Unavailable ANDREW DRIVER (PA) Attending Unavailable PLAYL, CROW M Attending Unavailable REBECA PORTILLO () Attending Unavailable REBECA PORTILLO () Referring Unavailable RUTTIREBECA (DIANE) Attending Unavailable RUTTIREBECA (DIANE) Referring Unavailable RUTTI, REBECA (WHEEL BLOCKER) Attending Unavailable PLAYL, CROW M Attending Unavailable PLAYL, CROW M Referring Unavailable PLAYL, CROW M Attending Unavailable Playl, Crow Primary Care Unavailable Branden Aggarwal Attending Unavailable Seals, Umang Attending Unavailable SealsUmang Referring Unavailable Playl, Crow Primary Care Unavailable Sealray, Umang Attending Unavailable Playl, Crow Primary Care Unavailable Megan Givens Attending Unavailable Playl, Crow Primary Care Unavailable Miguelito Cabrera Attending Unavailable PROBLEMS PROBLEMS DATE TYPE CONDITION / CODE ATTENDING STATUS SOURCE 06/22/2018 Active Moderate persistent NA Active [facility] with (acute[facility] exacerbation / [place] J45.41(ICD-10) Repository 04/14/2018 Active Encounter for NA Active [facility] screening for [facility] diabetes mellitus / [place] Z13.1(ICD-10) Repository 04/14/2018 Active Headache / NA Active [facility] R51(ICD-10) [facility] [place] Repository 01/07/2018 Active Unspecified abnormal NA Active [facility] finding in specimens [facility] from other organs, [place] systems and tissues Repository / R89.9(ICD-10) 09/09/2017 Active Moderate persistent PLAYL, CROW Active [facility] asthma, M [facility] uncomplicated / [place] J45.40(ICD-10) Repository 01/10/2015 Active Anxiety disorder, PLAYL, CROW Active [facility] unspecified / M [facility] F41.9(ICD-10) [place] Repository 10/18/2014 Active Major depressive PLAYL, CROW Active [facility] disorder, single M [facility] episode, unspecified [place] / F32.9(ICD-10) Repository 12/22/2017 Active Viral infection, PLAYL, CROW Active [facility] unspecified / M [facility] B34.9(ICD-10) [place] Repository 08/12/2017 Unknown E28.2 - Polycystic Umang Lomas Active [facility] syndrome [facility] E28.2(ICD-10) Hospital Repository 07/22/2017 Active Unknown / PLAYL, CROW Active [facility] UNK(Unknown) M [facility] [place] Repository 07/09/2017 Unknown G89.18 - Other acute Seals, Umang Active [facility] postprocedural pain [facility] / G89.18(ICD-10) Hospital Repository PROCEDURES PROCEDURES No Procedure Records FoundRESULTS RESULTS 12 LEAD ELECTROCARDIOGRAM Observed: 06/28/2018 Status: F Source: [place] 9:47 AM [facility] Cardiovascular Services [address] [place] [address] 12 Lead EKG 06/25/18 1454 MR#: [id number] Acct: [id number] Name: SCAR WHITE Rep #: [id number] : 1995 22 From: Flavio Albright MD Attending Dr: Status: DEP ER Ordering Dr: Branden Aggarwal MD Date: 06/25/18 Location: ED Sex: F C Admitted: Test Reason : SOB Blood Pressure : / mmHG Vent. Rate : 105 BPM Atrial Rate : 105 BPM P-R Int : 152 ms QRS Dur : 094 ms QT Int : 358 ms P-R-T Axes : 048 032 028 degrees QTc Int : 473 ms Sinus tachycardia Cannot rule out Anterior infarct , age undetermined Abnormal ECG Confirmed by FLAVIO ALBRIGHT MD ([id number]), industrial editor COLLETTE SIMPSON ([id number]) on 06/28/2018 9:46:24 AM Referred By: YVETTE Confirmed By:FLAVIO ALBRIGHT MD 06/28/18 0946 Date Flavio Albright MD CC: Branden Aggarwal MD; Crow Power MD Signed DISCHARGE INSTRUCTION Observed: 06/26/2018 Status: F Source: [place] 12:00 AM [facility] Medical Records Department [address] [place] [address] Discharge Instruction 06/25/18 1724 MR#: [id number] Acct: [id number] Name: SCAR WHITE Rep #: [id number] : 1995 22 From: Miguelito Cabrera MD PCP: Crow Power MD Status: DEP ER ED Disposition - Plan for ED Patient: Disposition: Home or Assisted Living Chief Complaint: Cough Instructions: ED Bronchitis Asthmatic Referrals: Crow Power MD [Primary Care Provider] - 3-5 Days if not improving Additional Instructions: Continue your current medications including your antibiotic, steroids and aerosol treatments. What to do if you have Problems For any increased pain, shortness of breath, bleeding, nausea or vomiting, chest pain, or any unexpected problems, contact your Primary Care Provider. Call [facility] ([phone]) or report to the closest Emergency Room. Call 911 if necessary. 06/26/18 0000 <Electronically signed by Miguelito Cabrera MD> Date Miguelito Cabrera MD Cosigner Signature (If Indicated): Date CC: Crow Power MD EMERGENCY DEPARTMENT Observed: 06/25/2018 Status: C Source: [place] SUMMARY 5:28 PM [facility] REPOSITORY [facility] Medical Records Department [address] [facility] [place] [address] Emergency Department Summary 06/25/18 1541 MR#: [id number] Acct: [id number] Name: SCAR WHITE Rep #: [id number] : 1995 22 From: Branden Aggarwal MD PCP: Crow Power MD Status: REG ER ADDENDUM by Miguelito Cabrera MD on 06/25/18 at 1727 Patient turned over to me from Dr. Christopher Aggarwal. Chest x-ray normal. EKG sinus rhythm rate of 10 with no signs of ischemia. CBC White count is elevated 18.2 but she is currently on steroids. Hemoglobin of 12. Electrolytes unremarkable normal gap and creatinine. Troponin was normal. On multiple repeat exams her lungs are completely clear. She is no longer wheezing. She can comfortably be discharged home. Impressions: Acute dyspnea secondary to asthmatic bronchitis Asthma flare Patient will be discharged to home. She is already on steroids and antibiotics. She has aerosols at home also. Date Miguelito Cabrera MD cc: Crow Power MD * Addendum - ER Visit Summary Date of Service: 06/25/18 Chief Complaint: Shortness of breath History of Present Illness: The patient is a 22 F with shortness of breath for several days. She saw her doctor on Thursday and was prescribed prednisone and Omnicef. She has been using nebulizers every 4 hours with minimal improvement. Denies fevers. She does have a cough but denies sputum. No hemoptysis. No chest pain. No leg pain or swelling. Heart disease, dissection, or PE. Physical Examination: Afebrile. Blood pressure 178/113 and heart rate 109. Respiratory rate 28. 98% on room air. Patient is alert and oriented. No acute distress. HEENT exam unremarkable. Initial lung sounds in all garcia. Heart tachycardic but regular. Extremities nontender with no edema. Skin appears normal. Test Results: EKG showed sinus tachycardia at a rate of 105. No sign of acute ischemia or infarction pattern. Laboratory studies and chest x-ray pending. Emergency Department Course and Treatment: On arrival, respiratory therapy saw the patient and was concerned that she had stridor. Patient was treated with racemic epinephrine. I first saw the patient at the end of her racemic treatment, and her stridor had resolved. She had diminished breath sounds in all garcia. Because of her failure of outpatient treatment, I did check labs, EKG, and chest x-ray. Results are pending. The oncoming doctor will check and reevaluate the patient. Treatment Plan: As above Disposition: Pending reevaluation Impression: 1. Dyspnea This note was generated with [employer] dictation software. It may contain incorrect words, spelling, and punctuation that were not noted in review of the chart prior to signing ED Disposition - Plan for ED Patient: Chief Complaint: Cough Referrals: Crow Power MD [Primary Care Provider] - What to do if you have Problems For any increased pain, shortness of breath, bleeding, nausea or vomiting, chest pain, or any unexpected problems, contact your Primary Care Provider. Call [facility] ([phone]) or report to the closest Emergency Room. Call 911 if necessary. 06/25/18 1545 <Electronically signed by Branden Aggarwal MD> Date Branden Aggarwal MD Cosigner Signature (If Indicated): Date CC: Crow Power MD BASIC METABOLIC Collected: 06/25/2018 Status: F Source: [place] PROFILE (BMP) 3:58 PM [facility] REPOSITORY Order Comment: REDRAW. PREVIOUS SPECIMEN REJECTED DUE TO HEMOLYSIS. 06/25/181541 Gabriela Bacon. 'TROP' Serial specimen #1, #2, #3, or #4: 1 TYPE CODE TESTS RESULT OUT OF RANGE REFERENCE UNITS LAB L501.0100 74-106 mg/dL High GLU 302 Result Comment: Glucose result greater than or equal to 200 mg/dL suggests DIABETES MELLITUS per A.D.A. criteria. Please note revised GLUCOSE reference range effective 2017. LAB L501.1000 7-18 mg/dL Normal BUN 14 LAB L501.1100 0.55-1.02 mg/dL Normal CREAT,SERUM 0.77 Result Comment: The validity of the calculated GFR AND GFRAA in patients over 70 years has not been determined. Clinical correlation is essential. LAB L501.1110 >60 mL/min Normal EST GFR 101 Result Comment: Non- GFR Calc LAB L501.1115 >60 mL/min Normal EST GFR - AA 122 Result Comment: GFR Calc LAB L501.1255 ml/min Normal Estimated CRCL 117.56 LAB L501.1300 10-20 RATIO BUN/CRE Normal 18.3 LAB L501.2200 8.5-10 mg/dL .1 CA Normal 9.6 LAB L501.5300 136-14 mmol/L Low 5 NA 134 LAB L501.5600 3.5-5. mmol/L 1 K Normal 4.2 LAB L501.5900 98-107 mmol/L CL Normal 101 LAB L501.6100 21.0-3 mmol/L 2.0 CO2 Normal 23.0 LAB L501.6200 5-15 GAP Normal 10 Performed By: #### L500.2500, L501.4010 #### [facility] [address] [place], [address] TROPONIN-I Collected: 06/25/2018 Status: F Source: [place] 3:58 PM [facility] REPOSITORY Order Comment: REDRAW. PREVIOUS SPECIMEN REJECTED DUE TO HEMOLYSIS. 06/25/18 1542 Gabriela Bacon. 'TROP' Serial specimen #1, #2, #3, or #4: 1 TYPE CODE TESTS RESULT OUT OF RANGE REFERENCE UNITS LAB L501.4010 <0.045 ng/mL Normal < 0.015 TROPONIN-I Result Comment: TROPONIN-I EXPECTED VALUES <0.045 Negative 0.045 - 0.590 Consistent with Cardiac Damage > OR = 0.600 Critical Value Not every elevated troponin is indicative of PR. These values should be used with clinical judgement in examining the patient's clinical picture for diagnosis. To establish a diagnosis of PR versus myocardial injury, there must be a demonstrated rise and/or fall in the troponin values, in addition to ischemic symptoms, EKG changes, new regional wall motion abnormality, and/or angiographical evidence. PLEASE NOTE: REFERENCE RANGES EDITED 17 Performed By: #### L500.2500, L501.4010 #### [facility] [address] [place], [address] CBC W/DIFF, AUTOMATED Collected: 06/25/2018 Status: F Source: [place] 3:05 PM [facility] REPOSITORY TYPE CODE TESTS RESULT OUT OF RANGE REFERENCE UNITS LAB L100.1000 4.4-11.0 K/mm3 High WBC 18.2 LAB L100.1200 4.2-5.4 M/mm3 Normal RBC 5.23 LAB L100.1300 12.0-15.0 g/dl Normal HGB 12.7 LAB L100.1400 37-47 % Normal HCT 41.0 LAB L100.1500 81-99 fL Low MCV 78.4 LAB L100.1600 27.0-32.0 pg Low MCH 24.3 LAB L100.1700 32-36 g/gl Low MCHC 31.0 LAB L100.1810 11.6-14.6 % High RDW CV 16.1 LAB L100.1820 35.1-43.9 fl High RDW SD 45.7 LAB L100.1900 150-450 K/mm3 High PLT 468 LAB L100.2000 6.2-12.0 fl Normal MPV 10.3 LAB L100.2100 47-70 % High NEUT% 80.5 LAB L100.2200 19-41 % Low LY% 15.4 LAB L100.2300 0-10 % Normal MONO% 3.2 LAB L100.2400 0-5 % Normal EO% 0.2 LAB L100.2500 0-1 % Normal BASO% 0.2 LAB L100.2550 0.0-0.9 % Normal IM GRAN % 0.500 Result Comment: IG% - Immature Granulocytes (promyelocytes, myelocytes and metamyelocytes) > 1% indicates that a LEFT SHIFT is Present. LAB L100.2620 2.0-7.7 X10 3/uL High Absolute Neut 14.7 LAB L100.2720 0.83-4.51 X10 3/ul Normal Absolute Lymph 2.81 Performed By: #### L100.0100 #### [facility] [address] [facility] [place], [address] CHEST 1 VIEW Observed: 06/25/2018 Status: F Source: [place] (PORTABLE) 2:52 PM [facility] REPOSITORY [facility] Imaging Services [address] [place] [id number] Chest 1 View (Portable) MR#: [id number] Acct: [id number] Name: SCAR WHITE Rep #: [id number] : 1995 F 22 From: Geovanni Retana MD PCP: Crow Power MD Status: PRE ER Study: Chest 1 View (Portable) Date of Exam: 06/25/18 Exam# [id number] Ordering Dr: Branden Aggarwal MD STUDY: X-RAY CHEST REASON FOR EXAM: Female, 22 years old. Chest pain. TECHNIQUE: Single AP portable view of the chest. COMPARISON: Comparison is made with prior study dated November 02, 2017. FINDINGS: EKG electrodes are seen. The lungs are clear and expanded. There is no demonstrated pleural abnormality. Normal size heart. Normal mediastinum and ana cristina. Normal visualized pulmonary arteries. Normal visualized aortic arch and descending thoracic aorta. Normal visualized thoracic spine. Normal visualized ribs, clavicles, and shoulders. There is no demonstrated abnormality of the visualized soft tissue structures of the upper abdomen. RAD/Chest 1 View (Portable) IMPRESSION: Normal x-ray examination of the chest. Electronically Signed: Gevoanni Retana MD at 15:30 EST Tel [phone], Service support , CC: Branden Aggarwal MD; Crow Power MD Plastics Tooling Engineer: Signed PROGRESS Observed: 06/24/2018 Status: COMPLETED Source: [place] 2:12 PM [facility] REPOSITORY HNO ID: [id number] Author: Crow Power Service: (none) Author Type: Physician Type: Progress Notes Filed: 06/24/2018 2:16 PM Note Text: The patient was seen for the issues discussed below. Problem list and history reviewed. Allergies reviewed. Medications reviewed. Immunizations reviewed. HISTORY: see history section below PHYSICAL EXAM: GENERAL: alert, well appearing, smiling, in no distress LEFT EYE: no drainage noted, no conjunctival injection noted; RIGHT EYE: no drainage noted, no conjunctival injection noted; NO ADDITIONAL EYE FINDINGS LEFT EAR: pinna normal, auditory canal normal, tympanic membrane clear, no effusion noted, RIGHT EAR: pinna normal, auditory canal normal, tympanic membrane clear, no effusion noted NOSE/SINUSES: nares normal, mucosa normal, congested OROPHARYNX: lips without lesions noted, gums/mucosa normal, oropharynx without erythema or exudates NECK/ADENOPATHY: neck supple, no adenopathy noted CHEST/LUNGS: no retractions noted, expiratory phase normal, normal respiratory rate and rhythm, trace scattered wheezes bilaterally. Good air exchange. GENERAL RECOMMENDATIONS: - Issues discussed in detail. - Symptom relief measures as needed. - Prescriptions, if ordered, are listed below. - Labs and/or X-rays, if ordered or obtained, are listed below. If the final results are not available at the conclusion of this visit, then additional recommendations may be made based on the final results. Note that all x-rays are reviewed by a radiologist before being considered final. - EKG, if ordered or obtained, is reviewed by a veteran appeals reviewer before being considered final. Additional recommendations may be made based on the final results. - Return to clinic should current symptoms (if present) worsen, other problems develop, or as needed. ADDITIONAL AND DICTATED PORTION: ADDITIONAL HISTORY The following Nursing History was reviewed with the family: Patient presents with: f/u breathing The patient is currently on albuterol every 4 hours [id number]-[id number]. Doing much better in terms of respiratory status. Some cough still remains. Wheezing is decreased. Retractions have essentially resolved. The patient is also on prednisone. Qvar was unable to be filled due to the cost. No fevers. No eye, ear, throat complaints. Nasal congestion has been present. No vomiting, diarrhea, abdominal pain. No rash. ADDITIONAL EXAM / OTHER INFORMATION none ADDITIONAL IMPRESSION / PLAN Asthma exacerbation markedly improved. Patient smiling and talking (at the last visit she was minimizing speech at the beginning of the visit). Lung examination negative except for trace wheezing. We will advance the albuterol to every 6 hours afoaqi-bvc-ypqqm. Singulair prescribed to replace the Qvar prescription. We stressed that Singulair also has to be taken every single day and will take up to 4 weeks to become effective.time. Complete prednisone course as already directed. Recheck in 2 weeks, sooner as needed. This note was partially generated using [employer] voice recognition system, and there may be some incorrect words, spellings, and punctuation that were not noted in checking the note before saving. Crow Power M.D. CNOV Observed: 06/24/2018 Status: COMPLETED Source: [place] 2:00 PM [facility] REPOSITORY Office Visit (PEDSWS) SCAR WHITE ([id number]) 1995 F Date Time Provider Department 06/24/18 2:00 PM CROW POWER During your visit today, we recorded the following information about you: Temperature Pulse Respiration Blood pressure 97.2 degrees 100/minute 20/minute 128/76 Weight 203.9 kg Crow Power MD 06/24/2018 2:16 PM Signed The patient was seen for the issues discussed below. Problem list and history reviewed. Allergies reviewed. Medications reviewed. Immunizations reviewed. HISTORY: see history section below PHYSICAL EXAM: GENERAL: alert, well appearing, smiling, in no distress LEFT EYE: no drainage noted, no conjunctival injection noted; RIGHT EYE: no drainage noted, no conjunctival injection noted; NO ADDITIONAL EYE FINDINGS LEFT EAR: pinna normal, auditory canal normal, tympanic membrane clear, no effusion noted, RIGHT EAR: pinna normal, auditory canal normal, tympanic membrane clear, no effusion noted NOSE/SINUSES: nares normal, mucosa normal, congested OROPHARYNX: lips without lesions noted, gums/mucosa normal, oropharynx without erythema or exudates NECK/ADENOPATHY: neck supple, no adenopathy noted CHEST/LUNGS: no retractions noted, expiratory phase normal, normal respiratory rate and rhythm, trace scattered wheezes bilaterally. Good air exchange. GENERAL RECOMMENDATIONS: - Issues discussed in detail. - Symptom relief measures as needed. - Prescriptions, if ordered, are listed below. - Labs and/or X-rays, if ordered or obtained, are listed below. If the final results are not available at the conclusion of this visit, then additional recommendations may be made based on the final results. Note that all x-rays are reviewed by a radiologist before being considered final. - EKG, if ordered or obtained, is reviewed by a veteran appeals reviewer before being considered final. Additional recommendations may be made based on the final results. - Return to clinic should current symptoms (if present) worsen, other problems develop, or as needed. ADDITIONAL AND DICTATED PORTION: ADDITIONAL HISTORY The following Nursing History was reviewed with the family: Patient presents with: f/u breathing The patient is currently on albuterol every 4 hours bnlice-ney-lnnqm. Doing much better in terms of respiratory status. Some cough still remains. Wheezing is decreased. Retractions have essentially resolved. The patient is also on prednisone. Qvar was unable to be filled due to the cost. No fevers. No eye, ear, throat complaints. Nasal congestion has been present. No vomiting, diarrhea, abdominal pain. No rash. ADDITIONAL EXAM / OTHER INFORMATION none ADDITIONAL IMPRESSION / PLAN Asthma exacerbation markedly improved. Patient smiling and talking (at the last visit she was minimizing speech at the beginning of the visit). Lung examination negative except for trace wheezing. We will advance the albuterol to every 6 hours zelkwy-jgi-njsdl. Singulair prescribed to replace the Qvar prescription. We stressed that Singulair also has to be taken every single day and will take up to 4 weeks to become effective.time. Complete prednisone course as already directed. Recheck in 2 weeks, sooner as needed. This note was partially generated using [employer] voice recognition system, and there may be some incorrect words, spellings, and punctuation that were not noted in checking the note before saving. Crow Power M.D. Referring Provider: SELF [[id number]] Allergies As of Date: 06/24/2018 Noted Allergy Reaction AUGMENTIN (AMOXICILLIN-POT CLAVUL*12/15/2012 6 - Diarrhea BENTYL (DICYCLOMINE HCL) 07/19/2013 11 - Vomiting CELERY 04/23/2016 14 - Other: See Comments Comments: Throat AND tongue numbness DIMETAPP (BROMPHENIRAMINE-PSEUDOE*05/17/2005 FRUCTOSE 01/17/2014 14 - Other: See Comments Comments: Abdominal pain, gassiness, diarrhea PENICILLINS 09/05/2011 2 - Rash Date Reviewed: 06/24/2018 Reviewed by: Crow Power - Fully Assessed Reason for Visit: f/u breathing [Other] Primary Visit Diagnosis:Moderate persistent asthma with acute exacerbation [J45.41] Order(s):montelukast (SINGULAIR) 10 mg tabletTake 1 tablet by mouth once daily.Disp: 30 tabletRfl: 5 Prescriptions as of 06/24/2018 Sig: PREDNISONE 20 MG TABLET 3 tabs (by mouth) daily for 5* ALBUTEROL SULFATE 2.5 MG/3 ML* Use 3 mL via nebulizer every * ALBUTEROL SULFATE HFA 90 MCG/* Inhale 2 Puffs as instructed * CEFDINIR 300 MG CAPSULE Take 1 capsule by mouth twice* METFORMIN ER 500 MG TABLET,EX* Take 2 tablets by mouth daily* BLOOD SUGAR DIAGNOSTIC STRIPS Test blood sugar(s) 2 times d* LANCETS Test blood sugar(s) 2 times d* ALBUTEROL SULFATE HFA 90 MCG/* Inhale 2 Puffs as instructed * EPINEPHRINE 0.3 MG/0.3 ML INJ* METHOCARBAMOL 500 MG TABLET Take one tablet up to three t* ALBUTEROL SULFATE 2.5 MG/3 ML* Use 3 mL via nebulizer every * MONTELUKAST 10 MG TABLET Take 1 tablet by mouth once d* BECLOMETHASONE DIPROP 80 MCG/* Inhale 4 Puffs as instructed * Patient not taking: Reported on 06/24/2018 LISINOPRIL 5 MG TABLET Take 1 tablet by mouth once d* Patient not taking: Reported on 06/22/2018 ASPIRIN 81 MG TABLET,DELAYED * Take 1 tablet by mouth once d* Patient not taking: Reported on 06/22/2018 SERTRALINE 100 MG TABLET Take 1 daily for 1 week, then* Patient not taking: Reported on 06/22/2018 BECLOMETHASONE DIPROPIONATE 4* Inhale 2 Puffs as instructed * Patient not taking: Reported on 06/22/2018 ALBUTEROL SULFATE CONCENTRATE* Inhale 0.5 mL as instructed o* Patient not taking: Reported on 06/22/2018 Problem List As Of Date 06/24/2018 Noted Resolved ADD (Attention Deficit Disorder) [F98.8] INVALID FOR* Flat Feet [M21.41, M21.42] INVALID FOR* Skin tag [L91.8] INVALID FOR* Viral wart, unspecified [B07.9] INVALID FOR*07/21/2012 Multiple nevi [D22.9] INVALID FOR* Moderate persistent asthma without complication*INVALID FOR* Dysmenorrhea in the adolescent [N94.6] INVALID FOR* Abdominal pain [R10.9] INVALID FOR*01/10/2015 Nausea [R11.0] INVALID FOR*01/10/2015 Morbid obesity with BMI of 60.0-69.9, adult (HC*INVALID FOR* Fructose intolerance [E74.10] INVALID FOR* Depression [F32.9] INVALID FOR* Sciatica [M54.30] INVALID FOR* Anxiety [F41.9] PCOS (polycystic ovarian syndrome) [E28.2] INVALID FOR* Adrenal nodule (HCC) [E27.9] INVALID FOR* Type 2 diabetes mellitus without complication, *INVALID FOR* Prescriptions ordered this encounter Disp Refills Start End MONTELUKAST 10 MG TABLET 30 t* 5 06/24/2018 Route: ORAL Sig: Take 1 tablet by mouth once daily. Encounter Status:Closed by CROW POWER MD on 06/24/18 XR CHEST 2V FRONTAL/LAT Observed: 06/22/2018 Status: F Source: [place] 2:57 PM [facility] REPOSITORY * * *Final Report* * * DATE OF EXAM: Jun 22 2018 2:57PM WOX [id number] - XR CHEST 2V FRONTAL/LAT / PROCEDURE REASON: Moderate persistent asthma with acute exacerbation * * * * Physician Interpretation * * * * EXAMINATION: CHEST RADIOGRAPH (2 VIEW FRONTAL and LATERAL) CLINICAL HISTORY: Moderate persistent asthma with acute exacerbation MQ: XC2_5 Comparison: 07/08/2016 RESULT: Lines, tubes, and devices: None. Lungs and pleura: Poor inspiration with low lung volumes. No consolidation. No lung mass. No pleural effusion. Cardiomediastinal silhouette: Normal cardiomediastinal silhouette. Other: . IMPRESSION: No acute radiographic abnormality. Plastics Tooling Engineer: DARYA Transcribe Date/Time: Jun 22 2018 3:16P Dictated by : UNIQUE NAVA MD This examination was interpreted and the report reviewed and electronically signed by: UNIQUE NAVA MD on Jun 22 2018 3:17PM EST [id number] PROGRESS Observed: 06/22/2018 Status: COMPLETED Source: [place] 2:52 PM [facility] REPOSITORY HNO ID: [id number] Author: Franklin Hikcs (Rt) Layo [place] Service: (none) Author Type: Fitness And Wellness Coordinator Type: Progress Notes Filed: 06/22/2018 2:55 PM Note Text: Radiology Service Progress Note PATIENT NAME: Scar White DATE OF SERVICE: June 22, 2018 TIME: 2:52 PM PATIENT IDENTITY VERIFICATION COMPLETED USING TWO (2) METHODS: Patient confirmed name verbally and Date of . PATIENT GENDER DATA: Female. status: : No status: NO. PATIENT RELEVANT IMPLANT DATA REVIEWED: Not Applicable RADIOLOGY DEPARTMENT: General X-ray: Exam(s) Completed: Chest X-Ray PERIPHERAL IV DATA: Not applicable SIGNED BY: RT Dylan June 22, 2018 2:52 PM PROGRESS Observed: 06/22/2018 Status: COMPLETED Source: [place] 2:20 PM [facility] REPOSITORY HNO ID: [id number] Author: Crow Power Service: (none) Author Type: Physician Type: Progress Notes Filed: 06/22/2018 5:04 PM Note Text: The patient was seen for the issues discussed below. Problem list and history reviewed. Allergies reviewed. Medications reviewed. Immunizations reviewed. HISTORY: see history section below PHYSICAL EXAM: GENERAL: alert, quiet, in moderate distress LEFT EYE: no drainage noted, no conjunctival injection noted; RIGHT EYE: no drainage noted, no conjunctival injection noted; NO ADDITIONAL EYE FINDINGS LEFT EAR: pinna normal, auditory canal normal, tympanic membrane clear, no effusion noted, RIGHT EAR: pinna normal, auditory canal normal, tympanic membrane clear, no effusion noted NOSE/SINUSES: nares normal, mucosa normal, no drainage noted OROPHARYNX: lips without lesions noted, gums/mucosa normal, oropharynx without erythema or exudates NECK/ADENOPATHY: neck supple, no adenopathy noted CHEST/LUNGS: Reduced air movement. Prolonged expiratory phase. No obvious wheezing, rhonchi, or rales (due to the reduced air movement). Moderate suprasternal retractions. Patient minimizing talking. CARDIOVASCULAR: regular rate and rhythm, capillary refill less than 2 seconds ABDOMEN: soft, nontender, bowel sounds normal, no masses, no organomegaly, abdomen nondistended SKIN: normal color, no rash, no jaundice, moist mucous membranes, turgor within normal limits GENERAL RECOMMENDATIONS: - Issues discussed in detail. - Symptom relief measures as needed. - Prescriptions, if ordered, are listed below. - Labs and/or X-rays, if ordered or obtained, are listed below. If the final results are not available at the conclusion of this visit, then additional recommendations may be made based on the final results. Note that all x-rays are reviewed by a radiologist before being considered final. - EKG, if ordered or obtained, is reviewed by a veteran appeals reviewer before being considered final. Additional recommendations may be made based on the final results. - Return to clinic should current symptoms (if present) worsen, other problems develop, or as needed. ADDITIONAL AND DICTATED PORTION: ADDITIONAL HISTORY The following Nursing History was reviewed with the family: Patient presents with: URI: sore throat x 1 week. Nasal congestion/cough x 2 days. Denies fever. The patient has been experiencing several days of severe cough. Severe wheezing and shortness of breath with exertion have also been present. Some tachypnea. No retractions. The patient does have a history of asthma. She started taking albuterol and has taken 2 doses so far today. The doses were 4 hours apart. No previous albuterol recently. The patient was previously on Qvar but this was discontinued quite a while ago. No fevers. Appetite decreased. No eye or ear complaints. Sore throat has been present. No palpitations or syncope. No vomiting, diarrhea, abdominal pain. No rash or edema. Patient does have a history of morbid obesity which would complicate her asthma. She also just completed a five-day course of prednisone for TMJ syndrome. ACTIVE PROBLEM LIST Add (Attention Deficit Disorder) Flat Feet Skin Tag Multiple Nevi Moderate Persistent Asthma Without Complication Dysmenorrhea in The Adolescent Morbid Obesity With Bmi of 60.0-69.9, Adult ([facility]) Fructose Intolerance Depression Sciatica Anxiety Pcos (Polycystic Ovarian Syndrome) Adrenal Nodule ([facility]) Type 2 Diabetes Mellitus Without Complication, Without Long- Term Current Use of Insulin ([facility]) IMPORTED 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 - PCOS (polycystic ovarian syndrome) - Sciatica 10/18/2014 - Skin tag 03/28/2011 - Type 2 diabetes mellitus without complication, without long- term current use of insulin ([facility]) 04/19/2018 - Type 2 diabetes mellitus without complication, without long- term current use of insulin ([facility]) 04/19/2018 IMPORTED PAST SURGICAL HISTORY Procedure Laterality Date - EGD 04/05/13 Mild Gastritis - LAPAROSCOPIC CHOLEYCYSTECTOMY 12/28/13 - OVARIAN CYSTECTOMY 07/08/2017 - REMOVE TONSILS/ADENOIDS,<12 Y/O < 6 yrs ADDITIONAL EXAM / OTHER INFORMATION Chest x-ray reveals no obvious infiltrates. O2 saturation 99% on room air (before starting the albuterol treatments). The patient received albuterol aerosols ?3 in quick succession. Significant improvement was noted in air movement. By the end of the third treatment the patient was moving air freely. Mild expiratory wheezing. No retractions. Patient was smiling and much more talkative (she had been minimizing speech at the beginning of the visit). ADDITIONAL IMPRESSION / PLAN severe asthma exacerbation. Patient required albuterol aerosols ?3 in quick succession to alleviate the current symptoms. An additional five-day course with taper prednisone provided. Albuterol to be utilized every 4 hours [id number]. Qvar to be restarted. Recheck in 48-72 hours. Patient to be seen immediately in the emergency room for any worsening. Time, established: Spent approx. 40+ minutes (69825 level) in [id number] contact with the patient and/or family, more than half of which was devoted to discussing the above problems. This note was partially generated using [employer] voice recognition system, and there may be some incorrect words, spellings, and punctuation that were not noted in checking the note before saving. Crow Power M.D. CNOV Observed: 06/22/2018 Status: COMPLETED Source: [place] 1:45 PM [facility] REPOSITORY Office Visit (PEDSWS) SCAR WHITE ([id number]) 1995 F Date Time Provider Department 06/22/18 1:45 PM CROW POWER PEDS[facility] During your visit today, we recorded the following information about you: Temperature Pulse Respiration Blood pressure 97.9 degrees 80/minute 20/minute 134/76 Weight 207.3 kg Cara Zhao RN, RN 06/22/2018 2:31 PM Signed Albuterol 2.5 mg solution aerosol treatment given per doctor's order at 1418. Lot # [id number], Expiration date 07/08/2018. O2 sat is 99% on room air pre-treatment.. Patient tolerated treatment with no adverse effects. SIERRA Kendrick MD 06/22/2018 5:04 PM Signed The patient was seen for the issues discussed below. Problem list and history reviewed. Allergies reviewed. Medications reviewed. Immunizations reviewed. HISTORY: see history section below PHYSICAL EXAM: GENERAL: alert, quiet, in moderate distress LEFT EYE: no drainage noted, no conjunctival injection noted; RIGHT EYE: no drainage noted, no conjunctival injection noted; NO ADDITIONAL EYE FINDINGS LEFT EAR: pinna normal, auditory canal normal, tympanic membrane clear, no effusion noted, RIGHT EAR: pinna normal, auditory canal normal, tympanic membrane clear, no effusion noted NOSE/SINUSES: nares normal, mucosa normal, no drainage noted OROPHARYNX: lips without lesions noted, gums/mucosa normal, oropharynx without erythema or exudates NECK/ADENOPATHY: neck supple, no adenopathy noted CHEST/LUNGS: Reduced air movement. Prolonged expiratory phase. No obvious wheezing, rhonchi, or rales (due to the reduced air movement). Moderate suprasternal retractions. Patient minimizing talking. CARDIOVASCULAR: regular rate and rhythm, capillary refill less than 2 seconds ABDOMEN: soft, nontender, bowel sounds normal, no masses, no organomegaly, abdomen nondistended SKIN: normal color, no rash, no jaundice, moist mucous membranes, turgor within normal limits GENERAL RECOMMENDATIONS: - Issues discussed in detail. - Symptom relief measures as needed. - Prescriptions, if ordered, are listed below. - Labs and/or X-rays, if ordered or obtained, are listed below. If the final results are not available at the conclusion of this visit, then additional recommendations may be made based on the final results. Note that all x-rays are reviewed by a radiologist before being considered final. - EKG, if ordered or obtained, is reviewed by a veteran appeals reviewer before being considered final. Additional recommendations may be made based on the final results. - Return to clinic should current symptoms (if present) worsen, other problems develop, or as needed. ADDITIONAL AND DICTATED PORTION: ADDITIONAL HISTORY The following Nursing History was reviewed with the family: Patient presents with: URI: sore throat x 1 week. Nasal congestion/cough x 2 days. Denies fever. The patient has been experiencing several days of severe cough. Severe wheezing and shortness of breath with exertion have also been present. Some tachypnea. No retractions. The patient does have a history of asthma. She started taking albuterol and has taken 2 doses so far today. The doses were 4 hours apart. No previous albuterol recently. The patient was previously on Qvar but this was discontinued quite a while ago. No fevers. Appetite decreased. No eye or ear complaints. Sore throat has been present. No palpitations or syncope. No vomiting, diarrhea, abdominal pain. No rash or edema. Patient does have a history of morbid obesity which would complicate her asthma. She also just completed a five-day course of prednisone for TMJ syndrome. ACTIVE PROBLEM LIST Add (Attention Deficit Disorder) Flat Feet Skin Tag Multiple Nevi Moderate Persistent Asthma Without Complication Dysmenorrhea in The Adolescent Morbid Obesity With Bmi of 60.0-69.9, Adult ([facility]) Fructose Intolerance Depression Sciatica Anxiety Pcos (Polycystic Ovarian Syndrome) Adrenal Nodule ([facility]) Type 2 Diabetes Mellitus Without Complication, Without Long- Term Current Use of Insulin ([facility]) IMPORTED 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 - PCOS (polycystic ovarian syndrome) - Sciatica 10/18/2014 - Skin tag 03/28/2011 - Type 2 diabetes mellitus without complication, without long- term current use of insulin ([facility]) 04/19/2018 - Type 2 diabetes mellitus without complication, without long- term current use of insulin ([facility]) 04/19/2018 IMPORTED PAST SURGICAL HISTORY Procedure Laterality Date - EGD 04/05/13 Mild Gastritis - LAPAROSCOPIC CHOLEYCYSTECTOMY 12/28/13 - OVARIAN CYSTECTOMY 07/08/2017 - REMOVE TONSILS/ADENOIDS,<12 Y/O < 6 yrs ADDITIONAL EXAM / OTHER INFORMATION Chest x-ray reveals no obvious infiltrates. O2 saturation 99% on room air (before starting the albuterol treatments). The patient received albuterol aerosols ?3 in quick succession. Significant improvement was noted in air movement. By the end of the third treatment the patient was moving air freely. Mild expiratory wheezing. No retractions. Patient was smiling and much more talkative (she had been minimizing speech at the beginning of the visit). ADDITIONAL IMPRESSION / PLAN severe asthma exacerbation. Patient required albuterol aerosols ?3 in quick succession to alleviate the current symptoms. An additional five-day course with taper prednisone provided. Albuterol to be utilized every 4 hours [id number]. Qvar to be restarted. Recheck in 48-72 hours. Patient to be seen immediately in the emergency room for any worsening. Time, established: Spent approx. 40+ minutes (84974 level) in [id number] contact with the patient and/or family, more than half of which was devoted to discussing the above problems. This note was partially generated using [employer] voice recognition system, and there may be some incorrect words, spellings, and punctuation that were not noted in checking the note before saving. Crow Power M.D. Cara Zhao RN, RN 06/22/2018 3:16 PM Signed Albuterol 2.5 mg solution aerosol treatment given per doctor's order at 1515. Lot # [id number], Expiration date 08/05/2019. O2 sat is 99% on room air pre-treatment.. Patient tolerated treatment with no adverse effects. SIERRA Kendrick RN, RN 06/22/2018 3:58 PM Signed Albuterol 2.5 mg solution aerosol treatment given per doctor's order at 1556. Lot # [id number], Expiration date 08/05/2019. O2 sat is 99% on room air pre-treatment.. Patient tolerated treatment with no adverse effects. Cara Zhao RN Referring Provider: SELF [[id number]] Allergies As of Date: 06/22/2018 Noted Allergy Reaction AUGMENTIN (AMOXICILLIN-POT CLAVUL*12/15/2012 6 - Diarrhea BENTYL (DICYCLOMINE HCL) 07/19/2013 11 - Vomiting CELERY 04/23/2016 14 - Other: See Comments Comments: Throat AND tongue numbness DIMETAPP (BROMPHENIRAMINE-PSEUDOE*05/17/2005 FRUCTOSE 01/17/2014 14 - Other: See Comments Comments: Abdominal pain, gassiness, diarrhea PENICILLINS 09/05/2011 2 - Rash Date Reviewed: 06/22/2018 Reviewed by: Crow Power - Fully Assessed Reason for Visit: URI [115] Cmt: sore throat x 1 week. Nasal congestion/cough x 2 days. Denies fever. Primary Visit Diagnosis:Moderate persistent asthma with acute exacerbation [J45.41] Order(s):[] albuterol 2.5 mg /3 mL (0.083 %) 2.5 mg (PROVENTIL)Disp: Rfl: XR CHEST 2V FRONTAL/LAT [[id number]] Order #: [id number] FUTURE [] albuterol 2.5 mg /3 mL (0.083 %) 2.5 mg (PROVENTIL)Disp: Rfl: predniSONE (DELTASONE) 20 mg tablet3 tabs (by mouth) daily for 5 days, then 2 tabs daily for 2 days, then 1 tab daily for 2 days.Disp: 21 tabletRfl: 0 albuterol (PROVENTIL) 2.5 mg /3 mL (0.083 %) nebulizer solutionUse 3 mL via nebulizer every 6 hours as needed for Wheezing/Shortness of Breath. 1 vial contains 3 ml.Disp: 100 VialRfl: 1 albuterol HFA (PROVENTIL HFA, VENTOLIN HFA) 90 mcg/actuation inhalerInhale 2 Puffs as instructed every 6 hours as needed for Wheezing/Shortness of Breath.Disp: 1 InhalerRfl: 2 beclomethasone (QVAR REDIHALER) 80 mcg/actuation inhalerInhale 4 Puffs as instructed twice daily.Disp: 2 InhalerRfl: 0 cefdinir (OMNICEF) 300 mg capsuleTake 1 capsule by mouth twice daily for 10 days.Disp: 20 capsuleRfl: 0 [] albuterol 2.5 mg /3 mL (0.083 %) 2.5 mg (PROVENTIL)Disp: Rfl: Prescriptions as of 06/22/2018 Sig: METFORMIN ER 500 MG TABLET,EX* Take 2 tablets by mouth daily* BLOOD SUGAR DIAGNOSTIC STRIPS Test blood sugar(s) 2 times d* LANCETS Test blood sugar(s) 2 times d* ALBUTEROL SULFATE HFA 90 MCG/* Inhale 2 Puffs as instructed * EPINEPHRINE 0.3 MG/0.3 ML INJ* METHOCARBAMOL 500 MG TABLET Take one tablet up to three t* PREDNISONE 20 MG TABLET 3 tabs (by mouth) daily for 5* ALBUTEROL SULFATE 2.5 MG/3 ML* Use 3 mL via nebulizer every * ALBUTEROL SULFATE HFA 90 MCG/* Inhale 2 Puffs as instructed * BECLOMETHASONE DIPROP 80 MCG/* Inhale 4 Puffs as instructed * CEFDINIR 300 MG CAPSULE Take 1 capsule by mouth twice* LISINOPRIL 5 MG TABLET Take 1 tablet by mouth once d* Patient not taking: Reported on 06/22/2018 ASPIRIN 81 MG TABLET,DELAYED * Take 1 tablet by mouth once d* Patient not taking: Reported on 06/22/2018 SERTRALINE 100 MG TABLET Take 1 daily for 1 week, then* Patient not taking: Reported on 06/22/2018 BECLOMETHASONE DIPROPIONATE 4* Inhale 2 Puffs as instructed * Patient not taking: Reported on 06/22/2018 ALBUTEROL SULFATE 2.5 MG/3 ML* Use 3 mL via nebulizer every * Patient not taking: Reported on 06/22/2018 ALBUTEROL SULFATE CONCENTRATE* Inhale 0.5 mL as instructed o* Patient not taking: Reported on 06/22/2018 Problem List As Of Date 06/22/2018 Noted Resolved ADD (Attention Deficit Disorder) [F98.8] INVALID FOR* Flat Feet [M21.41, M21.42] INVALID FOR* Skin tag [L91.8] INVALID FOR* Viral wart, unspecified [B07.9] INVALID FOR*07/21/2012 Multiple nevi [D22.9] INVALID FOR* Moderate persistent asthma without complication*INVALID FOR* Dysmenorrhea in the adolescent [N94.6] INVALID FOR* Abdominal pain [R10.9] INVALID FOR*01/10/2015 Nausea [R11.0] INVALID FOR*01/10/2015 Morbid obesity with BMI of 60.0-69.9, adult ([facility]*INVALID FOR* Fructose intolerance [E74.10] INVALID FOR* Depression [F32.9] INVALID FOR* Sciatica [M54.30] INVALID FOR* Anxiety [F41.9] PCOS (polycystic ovarian syndrome) [E28.2] INVALID FOR* Adrenal nodule ([facility]) [E27.9] INVALID FOR* Type 2 diabetes mellitus without complication, *INVALID FOR* Visit Notes: >> Cara Zhao RN ThuJun 22, 2018 2:18 PM Status: Signed Albuterol 2.5 mg solution aerosol treatment given per doctor's order at 1418. Lot # [id number], Expiration date 07/08/2018. O2 sat is 99% on room air pre-treatment.. Patient tolerated treatment with no adverse effects. Cara Zhao RN >> Cara Zhao RN Jun 22, 2018 3:16 PM Status: Signed Albuterol 2.5 mg solution aerosol treatment given per doctor's order at 1515. Lot # [id number], Expiration date 08/05/2019. O2 sat is 99% on room air pre-treatment.. Patient tolerated treatment with no adverse effects. Cara Zhao RN >> Cara Zhao RN Jun 22, 2018 3:57 PM Status: Signed Albuterol 2.5 mg solution aerosol treatment given per doctor's order at 1556. Lot # [id number], Expiration date 08/05/2019. O2 sat is 99% on room air pre-treatment.. Patient tolerated treatment with no adverse effects. Cara Zhao RN Prescriptions ordered this encounter Disp Refills Start End ALBUTEROL SULFATE 2.5 MG/3 ML (0.083* 06/22/2018 06/22/2018 Route: INHALATION ALBUTEROL SULFATE 2.5 MG/3 ML (0.083* 06/22/2018 06/22/2018 Route: INHALATION PREDNISONE 20 MG TABLET 21 t* 0 06/22/2018 Si tabs (by mouth) daily for 5 days, then 2 tabs daily for 2 days, then 1 tab daily for 2 days. ALBUTEROL SULFATE 2.5 MG/3 ML (0.083* 100 * 1 06/22/2018 Route: NEBULIZATION Sig: Use 3 mL via nebulizer every 6 hours as needed for Wheezing/Shortness of Breath. 1 vial contains 3 ml. ALBUTEROL SULFATE HFA 90 MCG/ACTUATI* 1 In* 2 06/22/2018 Cmt: Device must contain a dose counter. Route: INHALATION Sig: Inhale 2 Puffs as instructed every 6 hours as needed for Wheezing/Shortness of Breath. BECLOMETHASONE DIPROP 80 MCG/ACTUATI* 2 In* 0 06/22/2018 Route: INHALATION Sig: Inhale 4 Puffs as instructed twice daily. CEFDINIR 300 MG CAPSULE 20 c* 0 06/22/2018 07/02/2018 Route: ORAL Sig: Take 1 capsule by mouth twice daily for 10 days. ALBUTEROL SULFATE 2.5 MG/3 ML (0.083* 06/22/2018 06/22/2018 Route: INHALATION Letter Text Crow Power M.D., F.A.A.P. Department of Pediatrics [address] [place] [address] June 22, 2018 To Whom It May Concern: Scar White was seen in the office today. Please excuse. Please also excuse from work on 06/22, 06/23 and 06/24/18. Sincerely, Encounter Status:Closed by CROW POWER MD on 06/22/18 PROGRESS Observed: 06/14/2018 Status: COMPLETED Source: [place] 7:14 PM [facility] REPOSITORY HNO ID: [id number] Author: Camelia De La Cruz Service: (none) Author Type: Nurse Practitioner Type: Progress Notes Filed: 06/14/2018 7:22 PM Note Text: Subjective HPI Pt presents with c/o right jaw pain x 1.5 days. Has visit scheduled tomorrow with dentist. When making the appointment was encouraged to be seen in [facility] to be sure no ear infection/sinus infection. Pt does have mild right ear pain but it started after jaw pain. Denies recent/current URI sx, fever, chills, myalgias. Grinds teeth at night and clenches jaw throughout the day. Cannot fully open jaw today. Faulk/felt popping earlier today. Review of Systems Constitutional: Negative for chills and fever. HENT: Positive for ear pain. Negative for congestion, hearing loss, sore throat and tinnitus. Respiratory: Negative for cough. Objective Physical Exam Constitutional: She is oriented to person, place, and time and well-developed, well-nourished, and in no distress. No distress. HENT: Head: Normocephalic. Right Ear: Hearing, tympanic membrane, external ear and ear canal normal. Left Ear: Hearing, tympanic membrane, external ear and ear canal normal. Nose: Nose normal. Right sinus exhibits no maxillary sinus tenderness and no frontal sinus tenderness. Left sinus exhibits no maxillary sinus tenderness and no frontal sinus tenderness. Mouth/Throat: Uvula is midline, oropharynx is clear and moist and mucous membranes are normal. No oral lesions. Normal dentition. No dental caries. No oropharyngeal exudate, posterior oropharyngeal edema, posterior oropharyngeal erythema or tonsillar abscesses. Eyes: Pupils are equal, round, and reactive to light. Conjunctivae are normal. Right eye exhibits no discharge. Left eye exhibits no discharge. Neck: Full passive range of motion without pain. Neck supple. No spinous process tenderness and no muscular tenderness present. No neck rigidity. Decreased range of motion present. No edema and no erythema present. +popping when moving jaw. Cannot fully open mouth. Tenderness with palpation. Cardiovascular: Normal rate, regular rhythm and normal heart sounds. Exam reveals no gallop and no friction rub. No murmur heard. Pulmonary/Chest: Effort normal and breath sounds normal. No accessory muscle usage. No tachypnea. No respiratory distress. She has no decreased breath sounds (CTA, good air movement throughout, no cough noted during exam.). She has no wheezes. She has no rhonchi. She has no rales. Lymphadenopathy: She has no cervical adenopathy. Neurological: She is alert and oriented to person, place, and time. Skin: Skin is warm. She is not diaphoretic. BP 132/84 Pulse 84 Temp 36.7 ?C (98.1 ?F) (Tympanic) Resp 18 Wt (!) 202.3 kg (446 lb) BMI 67.81 kg/m? 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 - PCOS (polycystic ovarian syndrome) - Sciatica 10/18/2014 - Skin tag 03/28/2011 - Type 2 diabetes mellitus without complication, without long- term current use of insulin (HCC) 04/19/2018 - Type 2 diabetes mellitus without complication, without long- term current use of insulin (HCC) 04/19/2018 PAST SURGICAL HISTORY Procedure Laterality Date - EGD 04/05/13 Mild Gastritis - LAPAROSCOPIC CHOLEYCYSTECTOMY 12/28/13 - OVARIAN CYSTECTOMY 07/08/2017 - REMOVE TONSILS/ADENOIDS,<12 Y/O < 6 yrs ALLERGIES Augmentin [Amoxicillin-Pot Clavulanate]; Bentyl [Dicyclomine Hcl]; Celery; Dimetapp [Brompheniramine-Pseudoephedrin]; Fructose; Penicillins MEDICATIONS metFORMIN ER (GLUCOPHAGE XR) 500 mg 24 hr tablet Take 2 tablets by mouth daily with breakfast. lisinopril (ZESTRIL, PRINIVIL) 5 mg tablet Take 1 tablet by mouth once daily. aspirin, enteric coated (ASPIRIN, ENTERIC COATED) 81 mg EC tablet Take 1 tablet by mouth once daily. blood sugar diagnostic (BLOOD GLUCOSE TEST) test strip Test blood sugar(s) 2 times daily. Dx: Type 2 DM - Uncontrolled E11.65 Insulin: No Lancets lancets Test blood sugar(s) 2 times daily. Dx: Type 2 DM - Uncontrolled E11.65 Insulin: No sertraline (ZOLOFT) 100 mg tablet Take 1 daily for 1 week, then 1/2 daily for 1 week, then 1/2 every other day for 1 week, then stop. beclomethasone (QVAR) 40 mcg/actuation inhaler Inhale 2 Puffs as instructed twice daily. albuterol HFA (PROVENTIL HFA, VENTOLIN HFA) 90 mcg/actuation inhaler Inhale 2 Puffs as instructed every 6 hours as needed for Wheezing/Shortness of Breath. (CLAUDETTE for Ventolin with dose counter) methocarbamol (ROBAXIN) 500 mg tablet Take one tablet up to three times a day as needed for spasm. albuterol (PROVENTIL) 2.5 mg /3 mL (0.083 %) nebulizer solution Use 3 mL via nebulizer every 6 hours as needed for Wheezing/Shortness of Breath. 1 vial contains 3 ml. albuterol 5 mg/mL Nebu Inhale 0.5 mL as instructed one time only for 1 dose. OVER 5-15 MINUTES. FOR WHEEZING AND SHORTNESS OF BREATH. predniSONE (DELTASONE) 20 mg tablet Take 2 tablets by mouth once daily for 5 days. Take daily with food. EPINEPHrine (EPIPEN) 0.3 mg/0.3 mL auto-injector FAMILY HISTORY Problem Relation Age of Onset - Hypertension Paternal Grandmother - Heart Paternal Grandmother murmur - other (Glaucome,catarcts) Paternal Grandmother - other (rare skin disease) Paternal Grandmother - other (kidney stones) Paternal Grandmother both kidneys removed - Breast Cancer Maternal Grandmother thyroid - Asthma Mother - Migraines Mother related to sinus - Diabetes Father - Hypertension Father - Hypertension Maternal Grandfather polycystic kidneys,diverticulitis - Diabetes Maternal Grandfather Social History Substance Use Topics - Smoking status: Never Smoker - Smokeless tobacco: Never Used - Alcohol use No ASSESSMENT/PLAN: 1. Jaw pain - ICD9: 784.92, ICD10: R68.84 - PREDNISONE 20 MG TABLET May apply heat prn. Keep appointment with dentist tomorrow. The patient is instructed to return or seek emergency treatment if symptoms become worse or with any acute change in condition. The patient verbalizes understanding and is in agreement with plan of care. Camelia De La Cruz CNP CNOV Observed: 06/14/2018 Status: COMPLETED Source: [place] 6:30 PM [facility] REPOSITORY Office Visit (WSTR) SCAR WHITE ([id number]) 1995 F Date Time Provider Department 06/14/18 6:30 PM CAMELIA DE LA CRUZ [facility] During your visit today, we recorded the following information about you: Temperature Pulse Respiration Blood pressure 98.1 degrees 84/minute 18/minute 132/84 Weight 202.3 kg Camelia De La Cruz APRN.DIANE 06/14/2018 7:22 PM Signed Subjective HPI Pt presents with c/o right jaw pain x 1.5 days. Has visit scheduled tomorrow with dentist. When making the appointment was encouraged to be seen in [facility] to be sure no ear infection/sinus infection. Pt does have mild right ear pain but it started after jaw pain. Denies recent/current URI sx, fever, chills, myalgias. Grinds teeth at night and clenches jaw throughout the day. Cannot fully open jaw today. Faulk/felt popping earlier today. Review of Systems Constitutional: Negative for chills and fever. HENT: Positive for ear pain. Negative for congestion, hearing loss, sore throat and tinnitus. Respiratory: Negative for cough. Objective Physical Exam Constitutional: She is oriented to person, place, and time and well-developed, well-nourished, and in no distress. No distress. HENT: Head: Normocephalic. Right Ear: Hearing, tympanic membrane, external ear and ear canal normal. Left Ear: Hearing, tympanic membrane, external ear and ear canal normal. Nose: Nose normal. Right sinus exhibits no maxillary sinus tenderness and no frontal sinus tenderness. Left sinus exhibits no maxillary sinus tenderness and no frontal sinus tenderness. Mouth/Throat: Uvula is midline, oropharynx is clear and moist and mucous membranes are normal. No oral lesions. Normal dentition. No dental caries. No oropharyngeal exudate, posterior oropharyngeal edema, posterior oropharyngeal erythema or tonsillar abscesses. Eyes: Pupils are equal, round, and reactive to light. Conjunctivae are normal. Right eye exhibits no discharge. Left eye exhibits no discharge. Neck: Full passive range of motion without pain. Neck supple. No spinous process tenderness and no muscular tenderness present. No neck rigidity. Decreased range of motion present. No edema and no erythema present. +popping when moving jaw. Cannot fully open mouth. Tenderness with palpation. Cardiovascular: Normal rate, regular rhythm and normal heart sounds. Exam reveals no gallop and no friction rub. No murmur heard. Pulmonary/Chest: Effort normal and breath sounds normal. No accessory muscle usage. No tachypnea. No respiratory distress. She has no decreased breath sounds (CTA, good air movement throughout, no cough noted during exam.). She has no wheezes. She has no rhonchi. She has no rales. Lymphadenopathy: She has no cervical adenopathy. Neurological: She is alert and oriented to person, place, and time. Skin: Skin is warm. She is not diaphoretic. BP 132/84 Pulse 84 Temp 36.7 ?C (98.1 ?F) (Tympanic) Resp 18 Wt (!) 202.3 kg (446 lb) BMI 67.81 kg/m? 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 - PCOS (polycystic ovarian syndrome) - Sciatica 10/18/2014 - Skin tag 03/28/2011 - Type 2 diabetes mellitus without complication, without long- term current use of insulin (HCC) 04/19/2018 - Type 2 diabetes mellitus without complication, without long- term current use of insulin ([facility]) 04/19/2018 PAST SURGICAL HISTORY Procedure Laterality Date - EGD 04/05/13 Mild Gastritis - LAPAROSCOPIC CHOLEYCYSTECTOMY 12/28/13 - OVARIAN CYSTECTOMY 07/08/2017 - REMOVE TONSILS/ADENOIDS,<12 Y/O < 6 yrs ALLERGIES Augmentin [Amoxicillin-Pot Clavulanate]; Bentyl [Dicyclomine Hcl]; Celery; Dimetapp [Brompheniramine-Pseudoephedrin]; Fructose; Penicillins MEDICATIONS metFORMIN ER (GLUCOPHAGE XR) 500 mg 24 hr tablet Take 2 tablets by mouth daily with breakfast. lisinopril (ZESTRIL, PRINIVIL) 5 mg tablet Take 1 tablet by mouth once daily. aspirin, enteric coated (ASPIRIN, ENTERIC COATED) 81 mg EC tablet Take 1 tablet by mouth once daily. blood sugar diagnostic (BLOOD GLUCOSE TEST) test strip Test blood sugar(s) 2 times daily. Dx: Type 2 DM - Uncontrolled E11.65 Insulin: No Lancets lancets Test blood sugar(s) 2 times daily. Dx: Type 2 DM - Uncontrolled E11.65 Insulin: No sertraline (ZOLOFT) 100 mg tablet Take 1 daily for 1 week, then 1/2 daily for 1 week, then 1/2 every other day for 1 week, then stop. beclomethasone (QVAR) 40 mcg/actuation inhaler Inhale 2 Puffs as instructed twice daily. albuterol HFA (PROVENTIL HFA, VENTOLIN HFA) 90 mcg/actuation inhaler Inhale 2 Puffs as instructed every 6 hours as needed for Wheezing/Shortness of Breath. (CLAUDETTE for Ventolin with dose counter) methocarbamol (ROBAXIN) 500 mg tablet Take one tablet up to three times a day as needed for spasm. albuterol (PROVENTIL) 2.5 mg /3 mL (0.083 %) nebulizer solution Use 3 mL via nebulizer every 6 hours as needed for Wheezing/Shortness of Breath. 1 vial contains 3 ml. albuterol 5 mg/mL Nebu Inhale 0.5 mL as instructed one time only for 1 dose. OVER 5-15 MINUTES. FOR WHEEZING AND SHORTNESS OF BREATH. predniSONE (DELTASONE) 20 mg tablet Take 2 tablets by mouth once daily for 5 days. Take daily with food. EPINEPHrine (EPIPEN) 0.3 mg/0.3 mL auto-injector FAMILY HISTORY Problem Relation Age of Onset - Hypertension Paternal Grandmother - Heart Paternal Grandmother murmur - other (Glaucome,catarcts) Paternal Grandmother - other (rare skin disease) Paternal Grandmother - other (kidney stones) Paternal Grandmother both kidneys removed - Breast Cancer Maternal Grandmother thyroid - Asthma Mother - Migraines Mother related to sinus - Diabetes Father - Hypertension Father - Hypertension Maternal Grandfather polycystic kidneys,diverticulitis - Diabetes Maternal Grandfather Social History Substance Use Topics - Smoking status: Never Smoker - Smokeless tobacco: Never Used - Alcohol use No ASSESSMENT/PLAN: 1. Jaw pain - ICD9: 784.92, ICD10: R68.84 - PREDNISONE 20 MG TABLET May apply heat prn. Keep appointment with dentist tomorrow. The patient is instructed to return or seek emergency treatment if symptoms become worse or with any acute change in condition. The patient verbalizes understanding and is in agreement with plan of care. Camelia De La Cruz CNP Referring Provider: SELF [[id number]] Allergies As of Date: 06/14/2018 Noted Allergy Reaction AUGMENTIN (AMOXICILLIN-POT CLAVUL*12/15/2012 6 - Diarrhea BENTYL (DICYCLOMINE HCL) 07/19/2013 11 - Vomiting CELERY 04/23/2016 14 - Other: See Comments Comments: Throat AND tongue numbness DIMETAPP (BROMPHENIRAMINE-PSEUDOE*05/17/2005 FRUCTOSE 01/17/2014 14 - Other: See Comments Comments: Abdominal pain, gassiness, diarrhea PENICILLINS 09/05/2011 2 - Rash Date Reviewed: 06/14/2018 Reviewed by: Heidi Rocha LPN - Fully Assessed Reason for Visit: TMJ pain [Other] Cmt: x 1 day Primary Visit Diagnosis:Jaw pain [R68.84] Order(s):predniSONE (DELTASONE) 20 mg tabletTake 2 tablets by mouth once daily for 5 days. Take daily with food.Disp: 10 tabletRfl: 0 Prescriptions as of 06/14/2018 Sig: METFORMIN ER 500 MG TABLET,EX* Take 2 tablets by mouth daily* LISINOPRIL 5 MG TABLET Take 1 tablet by mouth once d* ASPIRIN 81 MG TABLET,DELAYED * Take 1 tablet by mouth once d* BLOOD SUGAR DIAGNOSTIC STRIPS Test blood sugar(s) 2 times d* LANCETS Test blood sugar(s) 2 times d* SERTRALINE 100 MG TABLET Take 1 daily for 1 week, then* BECLOMETHASONE DIPROPIONATE 4* Inhale 2 Puffs as instructed * ALBUTEROL SULFATE HFA 90 MCG/* Inhale 2 Puffs as instructed * METHOCARBAMOL 500 MG TABLET Take one tablet up to three t* ALBUTEROL SULFATE 2.5 MG/3 ML* Use 3 mL via nebulizer every * ALBUTEROL SULFATE CONCENTRATE* Inhale 0.5 mL as instructed o* PREDNISONE 20 MG TABLET Take 2 tablets by mouth once * EPINEPHRINE 0.3 MG/0.3 ML INJ* Problem List As Of Date 06/14/2018 Noted Resolved ADD (Attention Deficit Disorder) [F98.8] INVALID FOR* Flat Feet [M21.41, M21.42] INVALID FOR* Skin tag [L91.8] INVALID FOR* Viral wart, unspecified [B07.9] INVALID FOR*07/21/2012 Multiple nevi [D22.9] INVALID FOR* Moderate persistent asthma without complication*INVALID FOR* Dysmenorrhea in the adolescent [N94.6] INVALID FOR* Abdominal pain [R10.9] INVALID FOR*01/10/2015 Nausea [R11.0] INVALID FOR*01/10/2015 Morbid obesity with BMI of 60.0-69.9, adult (HC*INVALID FOR* Fructose intolerance [E74.10] INVALID FOR* Depression [F32.9] INVALID FOR* Sciatica [M54.30] INVALID FOR* Anxiety [F41.9] PCOS (polycystic ovarian syndrome) [E28.2] INVALID FOR* Adrenal nodule (HCC) [E27.9] INVALID FOR* Type 2 diabetes mellitus without complication, *INVALID FOR* Prescriptions ordered this encounter Disp Refills Start End PREDNISONE 20 MG TABLET 10 t* 0 06/14/2018 06/19/2018 Route: ORAL Sig: Take 2 tablets by mouth once daily for 5 days. Take daily with food. 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 Denies any otc treatment for symptoms. Review of Systems Constitutional: Negative for chills, fever and malaise/fatigue. Still voiding and drinking frequently HENT: Negative for sore throat. Respiratory: Negative for cough. Gastrointestinal: Positive for diarrhea, nausea and vomiting. Negative for abdominal pain, blood in stool and melena. Genitourinary: Negative for dysuria. Neurological: Negative for dizziness and headaches. 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 - PCOS (polycystic ovarian syndrome) - Sciatica 10/18/2014 - Skin tag 03/28/2011 - Type 2 diabetes mellitus without complication, without long- term current use of insulin (HCC) 04/19/2018 - Type 2 diabetes mellitus without complication, without long- term current use of insulin (HCC) 04/19/2018 PAST SURGICAL HISTORY Procedure Laterality Date - EGD 04/05/13 Mild Gastritis - LAPAROSCOPIC CHOLEYCYSTECTOMY 12/28/13 - OVARIAN CYSTECTOMY 07/08/2017 - REMOVE TONSILS/ADENOIDS,<12 Y/O < 6 yrs ALLERGIES Augmentin [Amoxicillin-Pot Clavulanate]; Bentyl [Dicyclomine Hcl]; Celery; Dimetapp [Brompheniramine-Pseudoephedrin]; Fructose; Penicillins MEDICATIONS metFORMIN ER (GLUCOPHAGE XR) 500 mg 24 hr tablet Take 2 tablets by mouth daily with breakfast. lisinopril (ZESTRIL, PRINIVIL) 5 mg tablet Take 1 tablet by mouth once daily. aspirin, enteric coated (ASPIRIN, ENTERIC COATED) 81 mg EC tablet Take 1 tablet by mouth once daily. blood sugar diagnostic (BLOOD GLUCOSE TEST) test strip Test blood sugar(s) 2 times daily. Dx: Type 2 DM - Uncontrolled E11.65 Insulin: No Lancets lancets Test blood sugar(s) 2 times daily. Dx: Type 2 DM - Uncontrolled E11.65 Insulin: No sertraline (ZOLOFT) 100 mg tablet Take 1 daily for 1 week, then 1/2 daily for 1 week, then 1/2 every other day for 1 week, then stop. beclomethasone (QVAR) 40 mcg/actuation inhaler Inhale 2 Puffs as instructed twice daily. albuterol HFA (PROVENTIL HFA, VENTOLIN HFA) 90 mcg/actuation inhaler Inhale 2 Puffs as instructed every 6 hours as needed for Wheezing/Shortness of Breath. (CLAUDETTE for Ventolin with dose counter) EPINEPHrine (EPIPEN) 0.3 mg/0.3 mL auto-injector methocarbamol (ROBAXIN) 500 mg tablet Take one tablet up to three times a day as needed for spasm. albuterol (PROVENTIL) 2.5 mg /3 mL (0.083 %) nebulizer solution Use 3 mL via nebulizer every 6 hours as needed for Wheezing/Shortness of Breath. 1 vial contains 3 ml. albuterol 5 mg/mL Nebu Inhale 0.5 mL as instructed one time only for 1 dose. OVER 5-15 MINUTES. FOR WHEEZING AND SHORTNESS OF BREATH. FAMILY HISTORY Problem Relation Age of Onset - Hypertension Paternal Grandmother - Heart Paternal Grandmother murmur - other (Glaucome,catarcts) Paternal Grandmother - other (rare skin disease) Paternal Grandmother - other (kidney stones) Paternal Grandmother both kidneys removed - Breast Cancer Maternal Grandmother thyroid - Asthma Mother - Migraines Mother related to sinus - Diabetes Father - Hypertension Father - Hypertension Maternal Grandfather polycystic kidneys,diverticulitis - Diabetes Maternal Grandfather Social History Substance Use Topics - Smoking status: Never Smoker - Smokeless tobacco: Never Used - Alcohol use No Objective Physical Exam Constitutional: She is well-developed, well-nourished, and in no distress. HENT: Head: Normocephalic. Right Ear: Tympanic membrane, external ear and ear canal normal. Left Ear: Tympanic membrane, external ear and ear canal normal. Nose: Nose normal. Right sinus exhibits no maxillary sinus tenderness and no frontal sinus tenderness. Left sinus exhibits no maxillary sinus tenderness and no frontal sinus tenderness. Mouth/Throat: Oropharynx is clear and moist. Eyes: Conjunctivae are normal. Neck: Normal range of motion. Cardiovascular: Normal rate, regular rhythm and normal heart sounds. Pulmonary/Chest: Effort normal and breath sounds normal. No respiratory distress. She has no wheezes. Abdominal: Soft. Bowel sounds are normal. She exhibits no distension. There is no tenderness. There is no rebound. Lymphadenopathy: She has no cervical adenopathy. Skin: Skin is warm and dry. No rash noted. Nursing note and vitals reviewed. ASSESSMENT/PLAN: 1. Viral gastroenteritis - ICD9: 008.8, ICD10: A08.4 -reviewed viral etiology -supportive care, rest, electrolyte replacement, analgesics PRN -reviewed GUT rest and Pine diet after episode of vomiting -Probiotic otc recommended -F/u with pcp in 3-5 days or sooner if symptoms are not improving or worsening Prescription instructions reviewed with patient as applicable. Patient advised if symptoms do not improve or if symptoms worsen sooner, to contact their primary care physician. Potential red flag symptoms discussed with the patient. Reviewed appropriate action plan to take if red flag symptoms occur. Patient agreeable to treatment plan. Darling Randhawa APRN.DIANE CNOV Observed: 05/11/2018 Status: COMPLETED Source: [place] 11:15 AM [facility] REPOSITORY Office Visit (WSTR) SCAR WHITE ([id number]) 1995 F Date Time Provider Department 05/11/18 11:15 AM DARLING RANDHAWA (NATURAL RESOURCES SPECIALIST) [facility] During your visit today, we recorded the following information about you: Temperature Pulse Respiration Blood pressure 98.7 degrees 82/minute 18/minute 136/84 Weight 202.3 kg Darling Randhawa APRN.DIANE 05/11/2018 12:08 PM Signed Subjective HPI Patient presents with: Vomiting: diarrhea, fever x 3 days Last vomiting episode this am 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 Denies any otc treatment for symptoms. Review of Systems Constitutional: Negative for chills, fever and malaise/fatigue. Still voiding and drinking frequently HENT: Negative for sore throat. Respiratory: Negative for cough. Gastrointestinal: Positive for diarrhea, nausea and vomiting. Negative for abdominal pain, blood in stool and melena. Genitourinary: Negative for dysuria. Neurological: Negative for dizziness and headaches. 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 - PCOS (polycystic ovarian syndrome) - Sciatica 10/18/2014 - Skin tag 03/28/2011 - Type 2 diabetes mellitus without complication, without long- term current use of insulin (HCC) 04/19/2018 - Type 2 diabetes mellitus without complication, without long- term current use of insulin (HCC) 04/19/2018 PAST SURGICAL HISTORY Procedure Laterality Date - EGD 04/05/13 Mild Gastritis - LAPAROSCOPIC CHOLEYCYSTECTOMY 12/28/13 - OVARIAN CYSTECTOMY 07/08/2017 - REMOVE TONSILS/ADENOIDS,<12 Y/O < 6 yrs ALLERGIES Augmentin [Amoxicillin-Pot Clavulanate]; Bentyl [Dicyclomine Hcl]; Celery; Dimetapp [Brompheniramine-Pseudoephedrin]; Fructose; Penicillins MEDICATIONS metFORMIN ER (GLUCOPHAGE XR) 500 mg 24 hr tablet Take 2 tablets by mouth daily with breakfast. lisinopril (ZESTRIL, PRINIVIL) 5 mg tablet Take 1 tablet by mouth once daily. aspirin, enteric coated (ASPIRIN, ENTERIC COATED) 81 mg EC tablet Take 1 tablet by mouth once daily. blood sugar diagnostic (BLOOD GLUCOSE TEST) test strip Test blood sugar(s) 2 times daily. Dx: Type 2 DM - Uncontrolled E11.65 Insulin: No Lancets lancets Test blood sugar(s) 2 times daily. Dx: Type 2 DM - Uncontrolled E11.65 Insulin: No sertraline (ZOLOFT) 100 mg tablet Take 1 daily for 1 week, then 1/2 daily for 1 week, then 1/2 every other day for 1 week, then stop. beclomethasone (QVAR) 40 mcg/actuation inhaler Inhale 2 Puffs as instructed twice daily. albuterol HFA (PROVENTIL HFA, VENTOLIN HFA) 90 mcg/actuation inhaler Inhale 2 Puffs as instructed every 6 hours as needed for Wheezing/Shortness of Breath. (CLAUDETTE for Ventolin with dose counter) EPINEPHrine (EPIPEN) 0.3 mg/0.3 mL auto-injector methocarbamol (ROBAXIN) 500 mg tablet Take one tablet up to three times a day as needed for spasm. albuterol (PROVENTIL) 2.5 mg /3 mL (0.083 %) nebulizer solution Use 3 mL via nebulizer every 6 hours as needed for Wheezing/Shortness of Breath. 1 vial contains 3 ml. albuterol 5 mg/mL Nebu Inhale 0.5 mL as instructed one time only for 1 dose. OVER 5-15 MINUTES. FOR WHEEZING AND SHORTNESS OF BREATH. FAMILY HISTORY Problem Relation Age of Onset - Hypertension Paternal Grandmother - Heart Paternal Grandmother murmur - other (Glaucome,catarcts) Paternal Grandmother - other (rare skin disease) Paternal Grandmother - other (kidney stones) Paternal Grandmother both kidneys removed - Breast Cancer Maternal Grandmother thyroid - Asthma Mother - Migraines Mother related to sinus - Diabetes Father - Hypertension Father - Hypertension Maternal Grandfather polycystic kidneys,diverticulitis - Diabetes Maternal Grandfather Social History Substance Use Topics - Smoking status: Never Smoker - Smokeless tobacco: Never Used - Alcohol use No Objective Physical Exam Constitutional: She is well-developed, well-nourished, and in no distress. HENT: Head: Normocephalic. Right Ear: Tympanic membrane, external ear and ear canal normal. Left Ear: Tympanic membrane, external ear and ear canal normal. Nose: Nose normal. Right sinus exhibits no maxillary sinus tenderness and no frontal sinus tenderness. Left sinus exhibits no maxillary sinus tenderness and no frontal sinus tenderness. Mouth/Throat: Oropharynx is clear and moist. Eyes: Conjunctivae are normal. Neck: Normal range of motion. Cardiovascular: Normal rate, regular rhythm and normal heart sounds. Pulmonary/Chest: Effort normal and breath sounds normal. No respiratory distress. She has no wheezes. Abdominal: Soft. Bowel sounds are normal. She exhibits no distension. There is no tenderness. There is no rebound. Lymphadenopathy: She has no cervical adenopathy. Skin: Skin is warm and dry. No rash noted. Nursing note and vitals reviewed. ASSESSMENT/PLAN: 1. Viral gastroenteritis - ICD9: 008.8, ICD10: A08.4 -reviewed viral etiology -supportive care, rest, electrolyte replacement, analgesics PRN -reviewed GUT rest and Pine diet after episode of vomiting -Probiotic otc recommended -F/u with pcp in 3-5 days or sooner if symptoms are not improving or worsening Prescription instructions reviewed with patient as applicable. Patient advised if symptoms do not improve or if symptoms worsen sooner, to contact their primary care physician. Potential red flag symptoms discussed with the patient. Reviewed appropriate action plan to take if red flag symptoms occur. Patient agreeable to treatment plan. Darling Randhawa APRN.DIANE Randhawa APRN.DIANE 05/11/2018 11:46 AM Signed GASTROENTERITIS Your exam shows you have gastroenteritis, a common illness. Symptoms can include nausea, vomiting, stomach cramps, diarrhea, and a slight fever. Viral gastroenteritis, usually the most common form clears up in 2-3 days with bed rest and a clear liquid diet. If you are not vomiting, you can start on small sips of water every 20-30 minutes; gradually increase this to 1-2 cups every hour as tolerated. You can then try sodas, Gatorade, broth, and jello if your cramps and nausea are better. Try crackers and dry toast as your symptoms improve. Stay away from milk and dairy products, alcohol, and drugs that upset your stomach for the next week. Call your doctor or the emergency department if you have: persistent vomiting, bloody stools, dehydration, fainting, high fever, increased pain or pain in the abdomen on the right side. Viral gastroenteritis is hard to tell from food poisoning. If other members of your family also become ill, check with your doctor or the health department. Referring Provider: SELF [200] Allergies As of Date: 05/11/2018 Noted Allergy Reaction AUGMENTIN (AMOXICILLIN-POT CLAVUL*12/15/2012 6 - Diarrhea BENTYL (DICYCLOMINE HCL) 07/19/2013 11 - Vomiting CELERY 04/23/2016 14 - Other: See Comments Comments: Throat AND tongue numbness DIMETAPP (BROMPHENIRAMINE-PSEUDOE*05/17/2005 FRUCTOSE 01/17/2014 14 - Other: See Comments Comments: Abdominal pain, gassiness, diarrhea PENICILLINS 09/05/2011 2 - Rash Date Reviewed: 05/11/2018 Reviewed by: Rebeca Burdick Ma - Fully Assessed Reason for Visit: Vomiting [120] Cmt: diarrhea, fever x 3 days Primary Visit Diagnosis:Viral gastroenteritis [A08.4] Order(s):ondansetron orally disintegrating (ZOFRAN ODT) 4 mg disintegrating tabletTake 1 tablet by mouth every 8 hours as needed for up to 2 days.Disp: 6 tabletRfl: 0 Prescriptions as of 05/11/2018 Sig: METFORMIN ER 500 MG TABLET,EX* Take 2 tablets by mouth daily* LISINOPRIL 5 MG TABLET Take 1 tablet by mouth once d* ASPIRIN 81 MG TABLET,DELAYED * Take 1 tablet by mouth once d* BLOOD SUGAR DIAGNOSTIC STRIPS Test blood sugar(s) 2 times d* LANCETS Test blood sugar(s) 2 times d* SERTRALINE 100 MG TABLET Take 1 daily for 1 week, then* BECLOMETHASONE DIPROPIONATE 4* Inhale 2 Puffs as instructed * ALBUTEROL SULFATE HFA 90 MCG/* Inhale 2 Puffs as instructed * EPINEPHRINE 0.3 MG/0.3 ML INJ* METHOCARBAMOL 500 MG TABLET Take one tablet up to three t* ALBUTEROL SULFATE 2.5 MG/3 ML* Use 3 mL via nebulizer every * ALBUTEROL SULFATE CONCENTRATE* Inhale 0.5 mL as instructed o* ONDANSETRON 4 MG DISINTEGRATI* Take 1 tablet by mouth every * Problem List As Of Date 05/11/2018 Noted Resolved ADD (Attention Deficit Disorder) [F98.8] INVALID FOR* Flat Feet [M21.41, M21.42] INVALID FOR* Skin tag [L91.8] INVALID FOR* Viral wart, unspecified [B07.9] INVALID FOR*07/21/2012 Multiple nevi [D22.9] INVALID FOR* Moderate persistent asthma without complication*INVALID FOR* Dysmenorrhea in the adolescent [N94.6] INVALID FOR* Abdominal pain [R10.9] INVALID FOR*01/10/2015 Nausea [R11.0] INVALID FOR*01/10/2015 Morbid obesity with BMI of 60.0-69.9, adult (HC*INVALID FOR* Fructose intolerance [E74.10] INVALID FOR* Depression [F32.9] INVALID FOR* Sciatica [M54.30] INVALID FOR* Anxiety [F41.9] PCOS (polycystic ovarian syndrome) [E28.2] INVALID FOR* Adrenal nodule (HCC) [E27.9] INVALID FOR* Type 2 diabetes mellitus without complication, *INVALID FOR* Other instructions from your clinician: GASTROENTERITIS Your exam shows you have gastroenteritis, a common illness. Symptoms can include nausea, vomiting, stomach cramps, diarrhea, and a slight fever. Viral gastroenteritis, usually the most common form clears up in 2-3 days with bed rest and a clear liquid diet. If you are not vomiting, you can start on small sips of water every 20-30 minutes; gradually increase this to 1-2 cups every hour as tolerated. You can then try sodas, Gatorade, broth, and jello if your cramps and nausea are better. Try crackers and dry toast as your symptoms improve. Stay away from milk and dairy products, alcohol, and drugs that upset your stomach for the next week. Call your doctor or the emergency department if you have: persistent vomiting, bloody stools, dehydration, fainting, high fever, increased pain or pain in the abdomen on the right side. Viral gastroenteritis is hard to tell from food poisoning. If other members of your family also become ill, check with your doctor or the health department. Prescriptions ordered this encounter Disp Refills Start End ONDANSETRON 4 MG DISINTEGRATING TABL* 6 ta* 0 05/11/2018 05/13/2018 Route: ORAL Sig: Take 1 tablet by mouth every 8 hours as needed for up to 2 days. Disposition: Return if symptoms worsen or fail to improve. Follow-up and Disposition History Recorded Letter Text Darling Randhawa APRN.[facility] Urgent Care [address] [id number] Dept: [phone] 05/11/2018 Scar White [address] [facility] [place] [address] To Whom it May Concern: This is to certify that Scar White was seen at our office for medical care. Scar may return to work on 05/12/2018. If you have any questions please feel free to call. Sincerely: Darling Randhawa APRN.[facility] Encounter Status:Closed by DARLING RANDHAWA on 05/11/18 [facility]CO Observed: 05/06/2018 Status: COMPLETED Source: [place] 12:00 AM [facility] REPOSITORY Letter Text Scar White [address] [facility] [address] 05/06/2018 [facility] #: [id number] Dear , Due to a change in the provider's schedule it has been necessary to reschedule your Appointment. Your original appointment was scheduled for 07/30/18 at 9:40 AM with Rebeca White CNP. Your new appointment is now scheduled on 07/30/18 at 11:20 AM with Rebeca White CNP. If this new appointment is not convenient for you, please contact our office at [phone]. Thank you for choosing the [facility] as your Healthcare Provider Sincerely, Family Medicine Appointment Office PROGRESS Observed: 04/19/2018 Status: COMPLETED Source: [place] 9:46 AM [facility] REPOSITORY HNO ID: [id number] Author: Carmen Garcia MA Service: (none) Author Type: Golf Cart Mechanic Type: Progress Notes Filed: 04/19/2018 1:04 PM Note Text: Influenza Vaccine Documentation: ? Patient is identified by name and date of : Yes ? Patient is older than 6 months of age: Yes ? Patient denies a severe allergy to any vaccine component or to a previous dose of influenza vaccine: Yes FOR EGG ALLERGY CONCERNS, REFER TO PROVIDER. ? Denies allergy to gelatin, formaldehyde, thimerosol :Yes ? Patient is afebrile and not moderately or severely ill: Yes ? Does the patient have a history of Guillain ?Vidalia Syndrome (a severe paralytic illness): No ? Denies bone marrow transplant prior 6 months or solid organ transplant prior 3 months: Yes ? Denies a history of fainting after a prior injection or medical procedure? Yes If patient has fainted in the past, the CDC recommends sitting or lying down for 15 minutes after the vaccination. ? VIS sheet provided: Yes ? See Immunization Form in [employer] for details of immunizations administered today. If patient reports dizziness, vision changes or ringing in the ears post vaccination ? please have patient sit or lie down for 15 minutes. Carmen Garcia MA PROGRESS Observed: 04/19/2018 Status: COMPLETED Source: [place] 9:30 AM [facility] REPOSITORY HNO ID: [id number] Author: Rebeca White Service: (none) Author Type: Nurse Practitioner Type: Progress Notes Filed: 04/19/2018 1:04 PM Note Text: 04/19/2018 Patient presents with: Results SUBJECTIVE: This is a 22 year old that is here today for review of labs indicating DM. She states that she is not upset or overwhelmed with the information because she has a family history of it. She states that she already avoids fructose because she was found to have an intolerance. She is not currently exercising. She states that she is familiar with the glucose meters and testing. In follow up to visit last week, headaches continue, she has not restarted the zoloft yet. She did not try the imitrex and agrees to hold off since LFTs were elevated. 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 SUMAtriptan (IMITREX) 25 mg tablet Take 1 tablet by mouth as needed. Ok to repeat dose once if no improvement in 2 hours beclomethasone (QVAR) 40 mcg/actuation inhaler Inhale 2 Puffs as instructed twice daily. albuterol HFA (PROVENTIL HFA, VENTOLIN HFA) 90 mcg/actuation inhaler Inhale 2 Puffs as instructed every 6 hours as needed for Wheezing/Shortness of Breath. (CLAUDETTE for Ventolin with dose counter) diclofenac, EC, (VOLTAREN) 75 mg EC tablet EPINEPHrine (EPIPEN) 0.3 mg/0.3 mL auto-injector methocarbamol (ROBAXIN) 500 mg tablet Take one tablet up to three times a day as needed for spasm. albuterol (PROVENTIL) 2.5 mg /3 mL (0.083 %) nebulizer solution Use 3 mL via nebulizer every 6 hours as needed for Wheezing/Shortness of Breath. 1 vial contains 3 ml. albuterol 5 mg/mL Nebu Inhale 0.5 mL as instructed one time only for 1 dose. OVER 5-15 MINUTES. FOR WHEEZING AND SHORTNESS OF BREATH. No current facility-administered medications for this visit. Medications and allergies reviewed by this provider. 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 REVIEW OF SYSTEMS GENERAL: No weight loss, malaise or fevers RESPIRATORY: Negative for cough, hemoptysis, wheezing, COPD, dyspnea or shortness of breath CARDIOVASCULAR: Negative for chest pain, leg swelling, hypertension, CHF or palpitations ENDOCRINE: Negative for cold or heat intolerance, polyuria, polydipsia and goiter OBJECTIVE: BP 116/76 Pulse 84 Resp 20 Wt (!) 202.3 kg (446 lb) SpO2 97% BMI 67.81 kg/m? . Vital signs reviewed by this provider. PHYSICAL EXAMINATION: General appearance: Well appearing, alert, in no acute distress, well-hydrated, well nourished. Skin: Skin color, texture, turgor normal, no suspicious rashes or lesions Lungs: lungs clear to auscultation. No wheezing, rhonchi, rales Heart: RRR without murmur, gallop, or rubs. No ectopy Extremities: No deformities, edema, skin discoloration, clubbing or cyanosis. Good capillary refill. Feet: Shoes and socks removed, No deformities, ulcers, calluses, normal distal pulses, sensitive to 10 gm monofilament, vibratory perception normal and skin dry ASSESSMENT/PLAN: 1. Type 2 diabetes mellitus without complication, without long-term current use of insulin (HCC) - ICD9: 250.00, ICD10: E11.9 (primary diagnosis) newly diagnosed- education provided today - Add metformin (Glucophage) - Blood glucose monitoring on a twice a day schedule - Ophthalmology referral for eval/management of diabetic eye changes - Encouraged regular aerobic exercise and weight loss - Daily Asprin therapy recommended - Follow up in 3 months with labs, sooner should any other issues arise. - Discussed diabetic education issues of retirement diabetic complications, hypoglycemic symptoms, hyperglycemic symptoms, diet, medications- side effects and need for compliance, importance of exercise and importance of annual examinations with Opthalmology with patient. - BP goal of <130/80 - LDL goal of <100 - METFORMIN ER 500 MG TABLET,EXTENDED RELEASE 24 HR - LISINOPRIL 5 MG TABLET - ASPIRIN 81 MG TABLET,DELAYED RELEASE - BLOOD SUGAR DIAGNOSTIC STRIPS - BLOOD-GLUCOSE METER KIT - LANCETS - provided with heathy You packets- reviewed and encouraged to read 2. Morbid obesity with BMI of 60.0-69.9, adult (HCC) - ICD9: 278.01, V85.44, ICD10: E66.01, Z68.44 - discussed and encouraged healthy diet and exercise 3. Need for vaccination - ICD9: V05.9, ICD10: Z23 - ADMIN OF INFLUENZA VACCINE - INFLUENZA VAC QUADRIVALENT PRSRV FREE AGE 3 YRS + IM Rebeca White APRN.CNP CNOV Observed: 04/19/2018 Status: COMPLETED Source: [place] 9:00 AM [facility] REPOSITORY Office Visit (FAMPWS) SCAR WHITE ([id number]) 1995 F Date Time Provider Department 04/19/18 9:00 AM REBECA WHITE (DIANE) FAMPWS During your visit today, we recorded the following information about you: Pulse Respiration Blood pressure Weight 84/minute 20/minute 116/76 202.3 kg Rebeca White APRN.CNP 04/19/2018 1:04 PM Signed 04/19/2018 Patient presents with: Results SUBJECTIVE: This is a 22 year old that is here today for review of labs indicating DM. She states that she is not upset or overwhelmed with the information because she has a family history of it. She states that she already avoids fructose because she was found to have an intolerance. She is not currently exercising. She states that she is familiar with the glucose meters and testing. In follow up to visit last week, headaches continue, she has not restarted the zoloft yet. She did not try the imitrex and agrees to hold off since LFTs were elevated. 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 SUMAtriptan (IMITREX) 25 mg tablet Take 1 tablet by mouth as needed. Ok to repeat dose once if no improvement in 2 hours beclomethasone (QVAR) 40 mcg/actuation inhaler Inhale 2 Puffs as instructed twice daily. albuterol HFA (PROVENTIL HFA, VENTOLIN HFA) 90 mcg/actuation inhaler Inhale 2 Puffs as instructed every 6 hours as needed for Wheezing/Shortness of Breath. (CLAUDETTE for Ventolin with dose counter) diclofenac, EC, (VOLTAREN) 75 mg EC tablet EPINEPHrine (EPIPEN) 0.3 mg/0.3 mL auto-injector methocarbamol (ROBAXIN) 500 mg tablet Take one tablet up to three times a day as needed for spasm. albuterol (PROVENTIL) 2.5 mg /3 mL (0.083 %) nebulizer solution Use 3 mL via nebulizer every 6 hours as needed for Wheezing/Shortness of Breath. 1 vial contains 3 ml. albuterol 5 mg/mL Nebu Inhale 0.5 mL as instructed one time only for 1 dose. OVER 5-15 MINUTES. FOR WHEEZING AND SHORTNESS OF BREATH. No current facility-administered medications for this visit. Medications and allergies reviewed by this provider. 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 REVIEW OF SYSTEMS GENERAL: No weight loss, malaise or fevers RESPIRATORY: Negative for cough, hemoptysis, wheezing, COPD, dyspnea or shortness of breath CARDIOVASCULAR: Negative for chest pain, leg swelling, hypertension, CHF or palpitations ENDOCRINE: Negative for cold or heat intolerance, polyuria, polydipsia and goiter OBJECTIVE: BP 116/76 Pulse 84 Resp 20 Wt (!) 202.3 kg (446 lb) SpO2 97% BMI 67.81 kg/m? . Vital signs reviewed by this provider. PHYSICAL EXAMINATION: General appearance: Well appearing, alert, in no acute distress, well-hydrated, well nourished. Skin: Skin color, texture, turgor normal, no suspicious rashes or lesions Lungs: lungs clear to auscultation. No wheezing, rhonchi, rales Heart: RRR without murmur, gallop, or rubs. No ectopy Extremities: No deformities, edema, skin discoloration, clubbing or cyanosis. Good capillary refill. Feet: Shoes and socks removed, No deformities, ulcers, calluses, normal distal pulses, sensitive to 10 gm monofilament, vibratory perception normal and skin dry ASSESSMENT/PLAN: 1. Type 2 diabetes mellitus without complication, without long-term current use of insulin ([facility]) - ICD9: 250.00, ICD10: E11.9 (primary diagnosis) newly diagnosed- education provided today - Add metformin (Glucophage) - Blood glucose monitoring on a twice a day schedule - Ophthalmology referral for eval/management of diabetic eye changes - Encouraged regular aerobic exercise and weight loss - Daily Asprin therapy recommended - Follow up in 3 months with labs, sooner should any other issues arise. 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 - BP goal of <130/80 - LDL goal of <100 - METFORMIN ER 500 MG TABLET,EXTENDED RELEASE 24 HR - LISINOPRIL 5 MG TABLET - ASPIRIN 81 MG TABLET,DELAYED RELEASE - BLOOD SUGAR DIAGNOSTIC STRIPS - BLOOD-GLUCOSE METER KIT - LANCETS - provided with heathy You packets- reviewed and encouraged to read 2. Morbid obesity with BMI of 60.0-69.9, adult (HCC) - ICD9: 278.01, V85.44, ICD10: E66.01, Z68.44 - discussed and encouraged healthy diet and exercise 3. Need for vaccination - ICD9: V05.9, ICD10: Z23 - ADMIN OF INFLUENZA VACCINE - INFLUENZA VAC QUADRIVALENT PRSRV FREE AGE 3 YRS + IM Rebeca White APRN.WHEEL BLOCKER Carmen Garcia MA, VALENTINE 04/19/2018 1:04 PM Signed Influenza Vaccine Documentation: ? Patient is identified by name and date of : Yes ? Patient is older than 6 months of age: Yes ? Patient denies a severe allergy to any vaccine component or to a previous dose of influenza vaccine: Yes FOR EGG ALLERGY CONCERNS, REFER TO PROVIDER. ? Denies allergy to gelatin, formaldehyde, thimerosol :Yes ? Patient is afebrile and not moderately or severely ill: Yes ? Does the patient have a history of Guillain ?Vidalia Syndrome (a severe paralytic illness): No ? Denies bone marrow transplant prior 6 months or solid organ transplant prior 3 months: Yes ? Denies a history of fainting after a prior injection or medical procedure? Yes If patient has fainted in the past, the CDC recommends sitting or lying down for 15 minutes after the vaccination. ? VIS sheet provided: Yes ? See Immunization Form in [facility] for details of immunizations administered today. If patient reports dizziness, vision changes or ringing in the ears post vaccination ? please have patient sit or lie down for 15 minutes. Carmen Garcia MA Allergies As of Date: 04/19/2018 Noted Allergy Reaction AUGMENTIN (AMOXICILLIN-POT CLAVUL*12/15/2012 6 - Diarrhea BENTYL (DICYCLOMINE HCL) 07/19/2013 11 - Vomiting CELERY 04/23/2016 14 - Other: See Comments Comments: Throat AND tongue numbness DIMETAPP (BROMPHENIRAMINE-PSEUDOE*05/17/2005 FRUCTOSE 01/17/2014 14 - Other: See Comments Comments: Abdominal pain, gassiness, diarrhea PENICILLINS 09/05/2011 2 - Rash Date Reviewed: 04/19/2018 Reviewed by: Carmen Garcia MA - Fully Assessed Reason for Visit: Results [95] Primary Visit Diagnosis:Type 2 diabetes mellitus without complication, without long-term current use of insulin (HCC) [E11.9] Other Visit Diagnoses:Morbid obesity with BMI of 60.0-69.9, adult (HCC) [E66.01, Z68.44] Need for vaccination [Z23] Order(s):metFORMIN ER (GLUCOPHAGE XR) 500 mg 24 hr tabletTake 2 tablets by mouth daily with breakfast.Disp: 60 tabletRfl: 3 lisinopril (ZESTRIL, PRINIVIL) 5 mg tabletTake 1 tablet by mouth once daily.Disp: 30 tabletRfl: 3 aspirin, enteric coated (ASPIRIN, ENTERIC COATED) 81 mg EC tabletTake 1 tablet by mouth once daily.Disp: 30 tabletRfl: 3 blood sugar diagnostic (BLOOD GLUCOSE TEST) test stripTest blood sugar(s) 2 times daily. Dx: Type 2 DM - Uncontrolled Insulin: NoDisp: 50 StripRfl: 11 Blood-Glucose Meter monitoring kitGlucose Meter of Choice - Kit - Dx: Type 2 DM - Uncontrolled Disp: 1 EachRfl: 0 Lancets lancetsTest blood sugar(s) 2 times daily. Dx: Type 2 DM - Uncontrolled Insulin: NoDisp: 100 EachRfl: 11 ADMIN OF INFLUENZA VACCINE [[id number]] Order #: [id number]: 1 INFLUENZA VAC QUADRIVALENT PRSRV FREE AGE 3 YRS + IM [[id number]] Order #: [id number] Prescriptions as of 04/19/2018 Sig: METFORMIN ER 500 MG TABLET,EX* Take 2 tablets by mouth daily* LISINOPRIL 5 MG TABLET Take 1 tablet by mouth once d* ASPIRIN 81 MG TABLET,DELAYED * Take 1 tablet by mouth once d* BLOOD SUGAR DIAGNOSTIC STRIPS Test blood sugar(s) 2 times d* BLOOD-GLUCOSE METER KIT Glucose Meter of Choice - Kit* LANCETS Test blood sugar(s) 2 times d* SERTRALINE 100 MG TABLET Take 1 daily for 1 week, then* BECLOMETHASONE DIPROPIONATE 4* Inhale 2 Puffs as instructed * ALBUTEROL SULFATE HFA 90 MCG/* Inhale 2 Puffs as instructed * EPINEPHRINE 0.3 MG/0.3 ML INJ* METHOCARBAMOL 500 MG TABLET Take one tablet up to three t* ALBUTEROL SULFATE 2.5 MG/3 ML* Use 3 mL via nebulizer every * ALBUTEROL SULFATE CONCENTRATE* Inhale 0.5 mL as instructed o* Problem List As Of Date 04/19/2018 Noted Resolved ADD (Attention Deficit Disorder) [F98.8] INVALID FOR* Flat Feet [M21.41, M21.42] INVALID FOR* Skin tag [L91.8] INVALID FOR* Viral wart, unspecified [B07.9] INVALID FOR*07/21/2012 Multiple nevi [D22.9] INVALID FOR* Moderate persistent asthma without complication*INVALID FOR* Dysmenorrhea in the adolescent [N94.6] INVALID FOR* Abdominal pain [R10.9] INVALID FOR*01/10/2015 Nausea [R11.0] INVALID FOR*01/10/2015 Morbid obesity with BMI of 60.0-69.9, adult (HC*INVALID FOR* Fructose intolerance [E74.10] INVALID FOR* Depression [F32.9] INVALID FOR* Sciatica [M54.30] INVALID FOR* Anxiety [F41.9] PCOS (polycystic ovarian syndrome) [E28.2] INVALID FOR* Adrenal nodule (HCC) [E27.9] INVALID FOR* Type 2 diabetes mellitus without complication, *INVALID FOR* Prescriptions ordered this encounter Disp Refills Start End METFORMIN ER 500 MG TABLET,EXTENDED * 60 t* 3 04/19/2018 Route: ORAL Sig: Take 2 tablets by mouth daily with breakfast. LISINOPRIL 5 MG TABLET 30 t* 3 04/19/2018 Route: ORAL Sig: Take 1 tablet by mouth once daily. ASPIRIN 81 MG TABLET,DELAYED RELEASE 30 t* 3 04/19/2018 Route: ORAL Sig: Take 1 tablet by mouth once daily. BLOOD SUGAR DIAGNOSTIC STRIPS 50 S* 11 04/19/2018 Sig: Test blood sugar(s) 2 times daily. Dx: Type 2 DM - Uncontrolled E11.65 Insulin: No BLOOD-GLUCOSE METER KIT 1 Ea* 0 04/19/2018 04/20/2018 Sig: Glucose Meter of Choice - Kit - Dx: Type 2 DM - Uncontrolled E11.65 LANCETS 100 * 11 04/19/2018 Sig: Test blood sugar(s) 2 times daily. Dx: Type 2 DM - Uncontrolled E11.65 Insulin: No Medications Discontinued During This Encounter diclofenac, EC, (VOLTAREN) 75 mg EC * 06/09/2017 04/19/2018 Class: Historical Med Sig: Disc: Reason for discontinue is not on file. SUMAtriptan (IMITREX) 25 mg tablet 4 ta* 0 04/14/2018 04/19/2018 Route: ORAL Sig: Take 1 tablet by mouth as needed. Ok to repeat dose once if no improvement in 2 hours Disc: Reason for discontinue is not on file. Encounter Status:Closed by REBECA WHITE on 04/19/18 CBC Collected: 04/14/2018 Status: F Source: [place] 3:00 PM [facility] REPOSITORY TYPE CODE TESTS RESULT OUT OF REFERENCE UNITS RANGE LAB WBC 3.70-11.00 k/uL WBC High 16.38 LAB RBC 3.90-5.20 m/uL RBC 4.79 LAB HGB 11.5-15.5 g/dL Hemoglobin 11.7 LAB HCT 36.0-46.0 % Hematocrit 38.8 LAB MCV 80.0-100.0 fL MCV 81.0 LAB MCH 26.0-34.0 pG Low MCH 24.4 LAB MCHC 30.5-36.0 g/dL Low MCHC 30.2 LAB RDWCV 11.5-15.0 % RDW-CV High 15.2 LAB PLTCT 150-400 k/uL Platelet Count 394 LAB MPV 9.0-12.7 fL MPV 10.7 LAB ABSNUC <0.01 k/uL Absolute nRBC <0.01 Performed By: #### CBC, CMP, HBA1C #### [facility] [address] [address] COMP METABOLIC PANEL Collected: 04/14/2018 Status: F Source: [place] 3:00 PM [facility] REPOSITORY TYPE CODE TESTS RESULT OUT OF REFERENCE UNITS RANGE LAB TP 6.3-8.0 g/dL Protein, Total 7.9 LAB ALB 3.9-4.9 g/dL Albumin 4.0 LAB CA 8.5-10.2 mg/dL Calcium, Total 9.6 LAB TBIL 0.2-1.3 mg/dL Bilirubin, Total 0.3 LAB ALKP 34-123 U/L Alkaline Phosphatase 84 LAB AST 13-35 U/L AST High 185 LAB GLU 74-99 mg/dL Glucose High 135 Result Comment: The [place] Diabetes Association (ADA) provides guidance for cutoff values for fasting glucose and random glucose. The ADA defines fasting as no caloric intake for at least 8 hours. Fas ting plasma glucose results between 100 to 125 mg/dL indicate increased risk for diabetes (prediabetes). Fasting plasma glucose results greater than or equal to 126 mg/dL meet the criteria for diagnosis of diabetes. In the absence of unequivocal hyperglycemia, results should be confirmed by repeat testing. In a patient with classic symptoms of hyperglycemia or hyperglycemic crisis, random plasma glucose results greater than or equal to 200 mg/dL meet the criteria for diagnosis of diabetes. Reference: Standards of Medical Care in Diabetes 2016, [place] [employer] Association. Diabetes Care. 2016.39(Suppl 1). LAB BUN 7-21 mg/dL BUN 9 LAB CRET 0.58-0.96 mg/dL Creatinine 0.58 LAB NA 136-144 mmol/L Sodium 136 LAB K 3.7-5.1 mmol/L Potassium 4.0 LAB CL 97-105 mmol/L Chloride 98 LAB CO2 22-30 mmol/L CO2 24 LAB AGAP 9-18 mmol/L Anion Gap 14 LAB ALT 7-38 U/L ALT High 152 LAB GFRAA eGFR- Amer. >60 LAB GFRNAA . eGFR-All Other Races >60 Result Comment: eGFR (Estimated GFR) Units of measure: mL/min/1.73 meters squared eGFR is derived from the reexpressed MDRD Study equation using the following parameters: serum creatinine, age, gender and race. The creatinine assay has been calibrated to be traceable to IDMS. An eGFR <60 mL/min/1.73m2 for >3 months is consistent with chronic kidney disease. Refer to KDOQI guidelines for clinical interpretation. In patients with unstable renal function, e.g. those with acute kidney injury, the eGFR may not accurately reflect actual GFR. Performed By: #### CBC, CMP, HBA1C #### [facility] [address] [place], [place] [address] HEMOGLOBIN A1C Collected: 04/14/2018 Status: F Source: [place] 3:00 PM [facility] REPOSITORY TYPE CODE TESTS RESULT OUT OF REFERENCE UNITS RANGE LAB HGBA1C 4.3-5.6 % High Hemoglobin A1c 8.2 LAB HBA0 mg/dL Est. Average Glucose 189 Result Comment: eAG: (Estimated average glucose) is a calculated value from HgbA1c and is auto claim representative of the average blood glucose level in the last 2-3 month period. Performed By: #### CBC, CMP, HBA1C #### [facility] [address] [place], [place] [address] JOSIE Observed: 04/14/2018 Status: COMPLETED Source: [place] 2:00 PM [facility] REPOSITORY Office Visit (FAMPWS) SCAR WHITE ([id number]) 1995 F Date Time Provider Department 04/14/18 2:00 PM REBECA WHITE (WHEEL BLOCKER) [facility] During your visit today, we recorded the following information about you: Pulse Respiration Blood pressure Weight 115/minute 20/minute 120/72 202.3 kg Rebeca White APRN.DIANE 04/14/2018 3:00 PM Signed 04/14/2018 Patient presents with: Nausea: vomitting ,DALE x2 weeks SUBJECTIVE: This is a 22 year old that is here today for daily headaches over the last 2 weeks. Described as sharp left sikhism across forehead to top of head. She states that she is also having nausea and blurred vision occasionally when the headaches are really bad. She states that she has never had headaches before like this. She denies an aura. She states that she had been prescribed glasses in the past, but has not worn them in several years. She states that she stopped taking zoloft around the time of the symptoms starting. She states that she did not have any more refills and just did not feel that it was needed. She denies any concerns for anxiety or depression at this time. She denies any concerns for URI or sinus infection. She does not feel that seasonal allergies are a concern. She denies the headache waking her up at night, or it being the worst headache of her life. She denies any weakness or stroke symptoms. She denies CP or SOB. She is concerned about DM. She states that she checked her BS with mom's meter and go 272- right before bed- ate 2.5 hours prior and 194 fasting today. She denies increased thirst, heat or cold intolerance, CP, SOB, or numbness or tingling in extremities. She states that she thinks that her mom had DM, but will not admit it and her dad does have it. She admits that she does not eat like she should. 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 beclomethasone (QVAR) 40 mcg/actuation inhaler Inhale 2 Puffs as instructed twice daily. albuterol HFA (PROVENTIL HFA, VENTOLIN HFA) 90 mcg/actuation inhaler Inhale 2 Puffs as instructed every 6 hours as needed for Wheezing/Shortness of Breath. (CLAUDETTE for Ventolin with dose counter) sertraline (ZOLOFT) 100 mg tablet Take 1 tablet by mouth once daily. acyclovir (ZOVIRAX) 400 mg tablet Take 1 tablet by mouth three times daily. NORGESTIMATE-ETHINYL ESTRADIOL (SPRINTEC, 28, ORAL) Take by mouth. diclofenac, EC, (VOLTAREN) 75 mg EC tablet EPINEPHrine (EPIPEN) 0.3 mg/0.3 mL auto-injector methocarbamol (ROBAXIN) 500 mg tablet Take one tablet up to three times a day as needed for spasm. albuterol (PROVENTIL) 2.5 mg /3 mL (0.083 %) nebulizer solution Use 3 mL via nebulizer every 6 hours as needed for Wheezing/Shortness of Breath. 1 vial contains 3 ml. albuterol 5 mg/mL Nebu Inhale 0.5 mL as instructed one time only for 1 dose. OVER 5-15 MINUTES. FOR WHEEZING AND SHORTNESS OF BREATH. No current facility-administered medications for this visit. Medications and allergies reviewed by this provider. 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 REVIEW OF SYSTEMS see HPI OBJECTIVE: BP 120/72 Pulse 115 Resp 20 Wt (!) 202.3 kg (446 lb) SpO2 96% BMI 67.81 kg/m? . Vital signs reviewed by this provider. PHYSICAL EXAMINATION: General appearance: Well appearing, alert, in no acute distress, well-hydrated, well nourished. and Morbidly obese Skin: Skin color, texture, turgor normal, no suspicious rashes or lesions Head: Normocephalic, no masses, lesions, tenderness or abnormalities Eyes: Anicteric sclera. Pupils are equally round and reactive to light. Extraocular movements are intact- increased headache during Ears: Positive findings: cerumen on left, amount Large- cleared with irrigation. Left ear canal slightly erythematous, bilateral TMs normal Nose/Sinuses: Nares normal, septum midline, mucosa normal, no drainage or sinus tenderness Oropharynx: Lips, mucosa, and tongue normal, teeth and gums normal, oropharynx normal Neck: Supple, no adenopathy Lungs: lungs clear to auscultation. No wheezing, rhonchi, rales Heart: RRR without murmur, gallop, or rubs. No ectopy Extremities: No deformities, edema, skin discoloration, clubbing or cyanosis. Good capillary refill. , Pulses: 2+ Neuro: Gait normal. Sensation grossly intact., Negative findings: speech normal, mental status intact, Romberg negative, muscle tone normal, muscle strength normal, finger to nose normal ASSESSMENT/PLAN: 1. Headache, unspecified headache type - ICD9: 784.0, ICD10: R51 (primary diagnosis) - migraine vs SSRI stooped without wean vs sinus headache - encouraged to increase water intake, decrease salt intake - will start the zoloft back and wean - ok to try imitrex - COMP METABOLIC PANEL - CBC - SUMATRIPTAN 25 MG TABLET - follow up if no improvement or worsening symptoms - ER with any red flag symptoms 2. Blurred vision - ICD9: 368.8, ICD10: H53.8 - discussed red flags and when to be seen emergently - encouraged eye exam - CONSULT TO OPHTHALMOLOGY 3. Screening for diabetes mellitus - ICD9: V77.1, ICD10: Z13.1 - HGB A1C - CONSULT TO OPHTHALMOLOGY 4. Depression, unspecified depression type - ICD9: 311, ICD10: F32.9 - controlled - will wean zoloft - SERTRALINE 100 MG TABLET 5. Anxiety - ICD9: 300.00, ICD10: F41.9 - controlled - will wean zoloft - SERTRALINE 100 MG TABLET Rebeca White APRN.WHEEL BLOCKER Carmen Garcia MA, VALENTINE 04/14/2018 2:30 PM Signed Ear lavage performed on the left ear with warm water/h202. Small amount of cerumen flushed from ear. TM is visible and intact post procedure. Patient tolerated procedure well and had no complaints during or after the procedure. VALENTINE Bradley APRN.WHEEL BLOCKER 04/14/2018 2:35 PM Addendum For the zoloft, if you start to get headache and nausea back again, go back to the prior dosing and call the office and let us know. I did give extra pills in case we need to stay on it longer and do a slower wean. Ok to try imitrex for the headache, if it does not improve with that, just push fluids and continue with the plan for zoloft wean and call the office with update or come in to be seen if worsening. ER with increased vision issues, weakness, increased pain to the point of worst headache of your life, or if headache wakes you up at night. Will call with lab results and plan based on them. Referring Provider: SELF [[id number]] Allergies As of Date: 04/14/2018 Noted Allergy Reaction AUGMENTIN (AMOXICILLIN-POT CLAVUL*12/15/2012 6 - Diarrhea BENTYL (DICYCLOMINE HCL) 07/19/2013 11 - Vomiting CELERY 04/23/2016 14 - Other: See Comments Comments: Throat AND tongue numbness DIMETAPP (BROMPHENIRAMINE-PSEUDOE*05/17/2005 FRUCTOSE 01/17/2014 14 - Other: See Comments Comments: Abdominal pain, gassiness, diarrhea PENICILLINS 09/05/2011 2 - Rash Date Reviewed: 04/14/2018 Reviewed by: Carmen Feliciano) VALENTINE Garcia - Fully Assessed Reason for Visit: Nausea [70] Cmt: vomitting ,DALE x2 weeks Primary Visit Diagnosis:Headache, unspecified headache type [R51] Other Visit Diagnoses:Blurred vision [H53.8] Screening for diabetes mellitus [Z13.1] Depression, unspecified depression type [F32.9] Anxiety [F41.9] Order(s):HGB A1C [DUYOK2W] Order #: [id number] FUTURE COMP METABOLIC PANEL [SQCMP] Order #: [id number] FUTURE CBC [SQCBC] Order #: [id number] FUTURE CONSULT TO OPHTHALMOLOGY [9024] Order #: [id number]: 1 sertraline (ZOLOFT) 100 mg tabletTake 1 daily for 1 week, then 1/2 daily for 1 week, then 1/2 every other day for 1 week, then stop.Disp: 30 tabletRfl: 0 SUMAtriptan (IMITREX) 25 mg tabletTake 1 tablet by mouth as needed. Ok to repeat dose once if no improvement in 2 hoursDisp: 4 tabletRfl: 0 Prescriptions as of 04/14/2018 Sig: BECLOMETHASONE DIPROPIONATE 4* Inhale 2 Puffs as instructed * ALBUTEROL SULFATE HFA 90 MCG/* Inhale 2 Puffs as instructed * DICLOFENAC SODIUM 75 MG TABLE* EPINEPHRINE 0.3 MG/0.3 ML INJ* METHOCARBAMOL 500 MG TABLET Take one tablet up to three t* ALBUTEROL SULFATE 2.5 MG/3 ML* Use 3 mL via nebulizer every * ALBUTEROL SULFATE CONCENTRATE* Inhale 0.5 mL as instructed o* SERTRALINE 100 MG TABLET Take 1 daily for 1 week, then* SUMATRIPTAN 25 MG TABLET Take 1 tablet by mouth as nee* Problem List As Of Date 04/14/2018 Noted Resolved ADD (Attention Deficit Disorder) [F98.8] INVALID FOR* Flat Feet [M21.41, M21.42] INVALID FOR* Skin tag [L91.8] INVALID FOR* Viral wart, unspecified [B07.9] INVALID FOR*07/21/2012 Multiple nevi [D22.9] INVALID FOR* Moderate persistent asthma without complication*INVALID FOR* Dysmenorrhea in the adolescent [N94.6] INVALID FOR* Abdominal pain [R10.9] INVALID FOR*01/10/2015 Nausea [R11.0] INVALID FOR*01/10/2015 Obesity peds (BMI >=95 percentile) [E66.9, Z68.*INVALID FOR* Fructose intolerance [E74.10] INVALID FOR* Depression [F32.9] INVALID FOR* Sciatica [M54.30] INVALID FOR* Anxiety [F41.9] PCOS (polycystic ovarian syndrome) [E28.2] INVALID FOR* Adrenal nodule (HCC) [E27.9] INVALID FOR* Other instructions from your clinician: For the zoloft, if you start to get headache and nausea back again, go back to the prior dosing and call the office and let us know. I did give extra pills in case we need to stay on it longer and do a slower wean. Ok to try imitrex for the headache, if it does not improve with that, just push fluids and continue with the plan for zoloft wean and call the office with update or come in to be seen if worsening. ER with increased vision issues, weakness, increased pain to the point of worst headache of your life, or if headache wakes you up at night. Will call with lab results and plan based on them. Visit Notes: >> Carmen (Valentine) VALENTINE Garcia Wed Apr 14, 2018 2:30 PM Status: Signed Ear lavage performed on the left ear with warm water/h202. Small amount of cerumen flushed from ear. TM is visible and intact post procedure. Patient tolerated procedure well and had no complaints during or after the procedure. Carmen Garcia MA Prescriptions ordered this encounter Disp Refills Start End SERTRALINE 100 MG TABLET 30 t* 0 04/14/2018 Sig: Take 1 daily for 1 week, then 1/2 daily for 1 week, then 1/2 every other day for 1 week, then stop. SUMATRIPTAN 25 MG TABLET 4 ta* 0 04/14/2018 Route: ORAL Sig: Take 1 tablet by mouth as needed. Ok to repeat dose once if no improvement in 2 hours Medications Discontinued During This Encounter NORGESTIMATE-ETHINYL ESTRADIOL (SPRI* 04/14/2018 Class: Historical Med Route: ORAL Sig: Take by mouth. Disc: Reason for discontinue is not on file. acyclovir (ZOVIRAX) 400 mg tablet 21 t* 0 12/13/2017 04/14/2018 Route: ORAL Sig: Take 1 tablet by mouth three times daily. Disc: Reason for discontinue is not on file. ondansetron orally disintegrating (Z* 10 t* 0 01/07/2018 04/14/2018 Route: ORAL Sig: Take 1 tablet by mouth every 8 hours as needed. Disc: Reason for discontinue is not on file. sertraline (ZOLOFT) 100 mg tablet 30 t* 0 12/22/2017 04/14/2018 Route: ORAL Sig: Take 1 tablet by mouth once daily. Disc: Reason for discontinue is not on file. Encounter Status:Closed by REBECA WHITE on 04/14/18 PROGRESS Observed: 04/14/2018 Status: COMPLETED Source: [place] 1:51 PM [facility] RE[facility] O ID: [id number] Author: Rebeca (Diane) Crhistopher Service: (none) Author Type: Nurse Practitioner Type: Progress Notes Filed: 04/14/2018 3:00 PM Note Text: 04/14/2018 Patient presents with: Nausea: vomitting ,DALE x2 weeks SUBJECTIVE: This is a 22 year old that is here today for daily headaches over the last 2 weeks. Described as sharp left sikhism across forehead to top of head. She states that she is also having nausea and blurred vision occasionally when the headaches are really bad. She states that she has never had headaches before like this. She denies an aura. She states that she had been prescribed glasses in the past, but has not worn them in several years. She states that she stopped taking zoloft around the time of the symptoms starting. She states that she did not have any more refills and just did not feel that it was needed. She denies any concerns for anxiety or depression at this time. She denies any concerns for URI or sinus infection. She does not feel that seasonal allergies are a concern. She denies the headache waking her up at night, or it being the worst headache of her life. She denies any weakness or stroke symptoms. She denies CP or SOB. She is concerned about DM. She states that she checked her BS with mom's meter and go 272- right before bed- ate 2.5 hours prior and 194 fasting today. She denies increased thirst, heat or cold intolerance, CP, SOB, or numbness or tingling in extremities. She states that she thinks that her mom had DM, but will not admit it and her dad does have it. She admits that she does not eat like she should. 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 beclomethasone (QVAR) 40 mcg/actuation inhaler Inhale 2 Puffs as instructed twice daily. albuterol HFA (PROVENTIL HFA, VENTOLIN HFA) 90 mcg/actuation inhaler Inhale 2 Puffs as instructed every 6 hours as needed for Wheezing/Shortness of Breath. (CLAUDETTE for Ventolin with dose counter) sertraline (ZOLOFT) 100 mg tablet Take 1 tablet by mouth once daily. acyclovir (ZOVIRAX) 400 mg tablet Take 1 tablet by mouth three times daily. NORGESTIMATE-ETHINYL ESTRADIOL (SPRINTEC, 28, ORAL) Take by mouth. diclofenac, EC, (VOLTAREN) 75 mg EC tablet EPINEPHrine (EPIPEN) 0.3 mg/0.3 mL auto-injector methocarbamol (ROBAXIN) 500 mg tablet Take one tablet up to three times a day as needed for spasm. albuterol (PROVENTIL) 2.5 mg /3 mL (0.083 %) nebulizer solution Use 3 mL via nebulizer every 6 hours as needed for Wheezing/Shortness of Breath. 1 vial contains 3 ml. albuterol 5 mg/mL Nebu Inhale 0.5 mL as instructed one time only for 1 dose. OVER 5-15 MINUTES. FOR WHEEZING AND SHORTNESS OF BREATH. No current facility-administered medications for this visit. Medications and allergies reviewed by this provider. 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 . Vital signs reviewed by this provider. PHYSICAL EXAMINATION: General appearance: Well appearing, alert, in no acute distress, well-hydrated, well nourished. and Morbidly obese Skin: Skin color, texture, turgor normal, no suspicious rashes or lesions Head: Normocephalic, no masses, lesions, tenderness or abnormalities Eyes: Anicteric sclera. Pupils are equally round and reactive to light. Extraocular movements are intact- increased headache during Ears: Positive findings: cerumen on left, amount Large- cleared with irrigation. Left ear canal slightly erythematous, bilateral TMs normal Nose/Sinuses: Nares normal, septum midline, mucosa normal, no drainage or sinus tenderness Oropharynx: Lips, mucosa, and tongue normal, teeth and gums normal, oropharynx normal Neck: Supple, no adenopathy Lungs: lungs clear to auscultation. No wheezing, rhonchi, rales Heart: RRR without murmur, gallop, or rubs. No ectopy Extremities: No deformities, edema, skin discoloration, clubbing or cyanosis. Good capillary refill. , Pulses: 2+ Neuro: Gait normal. Sensation grossly intact., Negative findings: speech normal, mental status intact, Romberg negative, muscle tone normal, muscle strength normal, finger to nose normal ASSESSMENT/PLAN: 1. Headache, unspecified headache type - ICD9: 784.0, ICD10: R51 (primary diagnosis) - migraine vs SSRI stooped without wean vs sinus headache - encouraged to increase water intake, decrease salt intake - will start the zoloft back and wean - ok to try imitrex - COMP METABOLIC PANEL - CBC - SUMATRIPTAN 25 MG TABLET - follow up if no improvement or worsening symptoms - ER with any red flag symptoms 2. Blurred vision - ICD9: 368.8, ICD10: H53.8 - discussed red flags and when to be seen emergently - encouraged eye exam - CONSULT TO OPHTHALMOLOGY 3. Screening for diabetes mellitus - ICD9: V77.1, ICD10: Z13.1 - HGB A1C - CONSULT TO OPHTHALMOLOGY 4. Depression, unspecified depression type - ICD9: 311, ICD10: F32.9 - controlled - will wean zoloft - SERTRALINE 100 MG TABLET 5. Anxiety - ICD9: 300.00, ICD10: F41.9 - controlled - will wean zoloft - SERTRALINE 100 MG TABLET Rebeca White APRN.WHEEL BLOCKER PROGRESS Observed: 01/11/2018 Status: COMPLETED Source: [place] 9:08 AM [facility] REPOSITORY HNO ID: [id number] Author: Zaira Cazares Psr Service: (none) Author Type: (none) Type: Progress Notes Filed: 01/11/2018 9:09 AM Note Text: 1st attemp/left message to call back to schedule consult to endocrinology CBC AND DIFFERENTIAL Collected: 01/07/2018 Status: F Source: [place] 3:04 PM [facility] REPOSITORY TYPE CODE TESTS RESULT OUT OF REFERENCE UNITS RANGE LAB WBC 3.70-11.00 k/uL WBC High 14.80 LAB RBC 3.90-5.20 m/uL RBC 4.73 LAB HGB 11.5-15.5 g/dL Hemoglobin 11.6 LAB HCT 36.0-46.0 % Hematocrit 38.8 LAB MCV 80.0-100.0 fL MCV 82.0 LAB MCH 26.0-34.0 pG Low MCH 24.5 LAB MCHC 30.5-36.0 g/dL Low MCHC 29.9 LAB RDWCV 11.5-15.0 % RDW-CV High 16.7 LAB PLTCT 150-400 k/uL Platelet Count 379 LAB MPV 9.0-12.7 fL MPV 10.6 LAB ANEUT % Neut% 65.0 LAB AANEUT 1.45-7.50 k/uL Abs Neut High 9.62 LAB ALYMP % Lymph% 24.1 LAB AALYMP 1.00-4.00 k/uL Abs Lymph 3.57 LAB AMONO % Mohave% 7.5 LAB AAMONO <0.87 k/uL Abs [place] High 1.11 LAB AEOS % Eosin% 2.9 LAB AAEOS <0.46 k/uL Abs Eosin 0.43 LAB ABASO % Baso% 0.5 LAB AABASO <0.11 k/uL Abs Baso 0.07 LAB AUNRBC 0 /100 WBC NRBCs 0.0 LAB ABNRBC <0.01 k/uL Absolute nRBC <0.01 LAB DTYP DTYPE Auto Diff Performed By: #### CBCDIF #### [id number] [place] [address] Observed: 01/07/2018 Status: F Source: [place] URINE CULTURE 2:30 PM [facility] REPOSITORY Sp. Request/Comment: - Specimen received in preservative Culture Result - <10,000 CFU/ml Gram negative bacilli --> ABNORMAL ALERT Insignificant colony count. No further workup. --> ABNORMAL ALERT 10,000 - <50,000 CFU/ml Normal urogenital albert Performed By: #### URCUL #### [id number] [place] [address] PROGRESS Observed: 01/07/2018 Status: COMPLETED Source: [place] 1:33 PM [facility] REPOSITORY HNO ID: [id number] Author: Rebeca Bangura) Bandar Service: (none) Author Type: Physician Type: Progress Notes Filed: 01/13/2018 11:11 AM Note Text: PEDIATRIC SICK VISIT SERVICE DATE: 01/07/2018 Scar White is a 22 year old female accompanied by mother for evaluation of abdominal pain of several day(s) duration. She states the pain is sharp and stabbing and comes and goes in the RLQ. She has been having diarrhea for 8 days, denies blood. She states her stool is very dark brown in color but not black. She continues to have nausea for which she was given Zofran which helps somewhat. She is able to walk and is not doubled over in pain but the day she went to the ER it hurt to walk. She denies burning with urination. Her pain is currently 4/10 and at its worst is 10/10. The pain does not radiate. CT was done at [facility] ER and appendix was normal. No ovarian cysts were appreciated. She was noted to have a nodule on her left adrenal gland and also a right kidney stone. She has a history of reflux and has had her gallbladder removed. History was obtained from: mother SUBJECTIVE: Associated symptoms include: Fussiness: not asked Fever: no but some chills Headache: yes Ear pain/pulling: no Nasal congestion: no Sore throat: no Cough: no Abdominal pain: yes Nausea: yes Emesis: yes Urine Output:: adequate urine output Diarrhea: yes Rash: no Symptoms are moderate-severe. 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 Dysmenorrhea in The Adolescent - 08/23/2012 Multiple Nevi - 07/21/2012 Moderate Persistent Asthma Without Complication - 07/21/2012 Skin Tag - 03/28/2011 Add (Attention Deficit Disorder) - 12/27/2009 Flat Feet - 12/27/2009 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 - Sciatica 10/18/2014 - Skin tag 03/28/2011 PAST SURGICAL HISTORY Procedure Laterality Date - EGD 04/05/13 Mild Gastritis - LAPAROSCOPIC CHOLEYCYSTECTOMY 12/28/13 - OVARIAN CYSTECTOMY 07/08/2017 - REMOVE TONSILS/ADENOIDS,<12 Y/O < 6 yrs Allergies: ALLERGIES Allergen Reactions - Augmentin [Amoxicil* Diarrhea - Bentyl [Dicyclomine* Vomiting - Celery Other: See Comments Throat AND tongue numbness - Dimetapp [Brompheni* - Fructose Other: See Comments Abdominal pain, gassiness, diarrhea - Penicillins Rash Medications: beclomethasone (QVAR) 40 mcg/actuation inhaler Inhale 2 Puffs as instructed twice daily. albuterol HFA (PROVENTIL HFA, VENTOLIN HFA) 90 mcg/actuation inhaler Inhale 2 Puffs as instructed every 6 hours as needed for Wheezing/Shortness of Breath. (CLAUDETTE for Ventolin with dose counter) sertraline (ZOLOFT) 100 mg tablet Take 1 tablet by mouth once daily. acyclovir (ZOVIRAX) 400 mg tablet Take 1 tablet by mouth three times daily. NORGESTIMATE-ETHINYL ESTRADIOL (SPRINTEC, 28, ORAL) Take by mouth. diclofenac, EC, (VOLTAREN) 75 mg EC tablet EPINEPHrine (EPIPEN) 0.3 mg/0.3 mL auto-injector methocarbamol (ROBAXIN) 500 mg tablet Take one tablet up to three times a day as needed for spasm. albuterol (PROVENTIL) 2.5 mg /3 mL (0.083 %) nebulizer solution Use 3 mL via nebulizer every 6 hours as needed for Wheezing/Shortness of Breath. 1 vial contains 3 ml. albuterol 5 mg/mL Nebu Inhale 0.5 mL as instructed one time only for 1 dose. OVER 5-15 MINUTES. FOR WHEEZING AND SHORTNESS OF BREATH. Social history: Sick contacts: no Attends daycare or school: no REVIEW OF SYSTEMS All other systems reviewed and are negative. OBJECTIVE Physical Exam: BP 124/82 Pulse 92 Temp 36.8 ?C (98.3 ?F) (Temporal Artery) Resp 20 Ht 172.7 cm (5' 8) Wt (!) 199.4 kg (439 lb 9.6 oz) LMP 10/30/2017 BMI 66.84 kg/m? General: Well developed, No acute distress, ill-appearing but non-toxic Eyes: clear, no drainage Ears: TMs translucent Nose: no erythema or exudate OP: no lesions, moist mucous membranes, normal tonsils Neck: supple and no adenopathy Lungs: clear to auscultation bilaterally, good air exchange, no retractions CVS: Normal rate, regular rhythm, no murmur Abdomen: Patient is obese and therefore exam is limited but abdomen is soft, no guarding present. Some tenderness of RLQ with pressure to area. +CVA tenderness on the right. Skin: Normal color, texture and turgor. No rashes. Assessment/Plan: Encounter Diagnosis ICD-10-CM 1. Non-intractable vomiting with nausea, unspecified vomiting type R11.2 ondansetron orally disintegrating (ZOFRAN ODT) 4 mg disintegrating tablet 2. Adrenal nodule (HCC) E27.9 3. Kidney stone on right side N20.0 UA DIP B/O URINE CULTURE 4. Abnormal laboratory test result R89.9 CBC + DIFF Adrenal Nodule - size increased from 1.2cm in 2013 to 1.7cm in 2018. While this is likely benign, given her issues with obesity will refer to Endocrinology for possible evaluation of Abner's or other endocrinopathies. Follow up for persistent or worsening symptoms, not drinking, decreased urination, or other concerns. 30 min spent with Scar today. Over half of the time spent on counseling and continuity of care. SIGNATURE: Rebeca Portillo MD PATIENT NAME: Scar White DATE: January 07, 2018 TIME: 1:34 PM CNOV Observed: 01/07/2018 Status: COMPLETED Source: [place] 1:30 PM [facility] REPOSITORY Office Visit (PEDSWS) SCAR WHITE ([id number]) 1995 F Date Time Provider Department 01/07/18 1:30 PM REBECA PORTILLO) PEDSWS During your visit today, we recorded the following information about you: Temperature Pulse Respiration Blood pressure 98.3 degrees 92/minute 20/minute 124/82 Weight Height Last Period 199.4 kg 1.727 m 10/30/17 Rebeca Portillo MD 01/13/2018 11:11 AM Signed PEDIATRIC SICK VISIT SERVICE DATE: 01/07/2018 Scar White is a 22 year old female accompanied by mother for evaluation of abdominal pain of several day(s) duration. She states the pain is sharp and stabbing and comes and goes in the RLQ. She has been having diarrhea for 8 days, denies blood. She states her stool is very dark brown in color but not black. She continues to have nausea for which she was given Zofran which helps somewhat. She is able to walk and is not doubled over in pain but the day she went to the ER it hurt to walk. She denies burning with urination. Her pain is currently 4/10 and at its worst is 10/10. The pain does not radiate. CT was done at [facility] ER and appendix was normal. No ovarian cysts were appreciated. She was noted to have a nodule on her left adrenal gland and also a right kidney stone. She has a history of reflux and has had her gallbladder removed. History was obtained from: mother SUBJECTIVE: Associated symptoms include: Fussiness: not asked Fever: no but some chills Headache: yes Ear pain/pulling: no Nasal congestion: no Sore throat: no Cough: no Abdominal pain: yes Nausea: yes Emesis: yes Urine Output:: adequate urine output Diarrhea: yes Rash: no Symptoms are moderate-severe. 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 Dysmenorrhea in The Adolescent - 08/23/2012 Multiple Nevi - 07/21/2012 Moderate Persistent Asthma Without Complication - 07/21/2012 Skin Tag - 03/28/2011 Add (Attention Deficit Disorder) - 12/27/2009 Flat Feet - 12/27/2009 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 - Sciatica 10/18/2014 - Skin tag 03/28/2011 PAST SURGICAL HISTORY Procedure Laterality Date - EGD 04/05/13 Mild Gastritis - LAPAROSCOPIC CHOLEYCYSTECTOMY 12/28/13 - OVARIAN CYSTECTOMY 07/08/2017 - REMOVE TONSILS/ADENOIDS,<12 Y/O < 6 yrs Allergies: ALLERGIES Allergen Reactions - Augmentin [Amoxicil* Diarrhea - Bentyl [Dicyclomine* Vomiting - Celery Other: See Comments Throat AND tongue numbness - Dimetapp [Brompheni* - Fructose Other: See Comments Abdominal pain, gassiness, diarrhea - Penicillins Rash Medications: beclomethasone (QVAR) 40 mcg/actuation inhaler Inhale 2 Puffs as instructed twice daily. albuterol HFA (PROVENTIL HFA, VENTOLIN HFA) 90 mcg/actuation inhaler Inhale 2 Puffs as instructed every 6 hours as needed for Wheezing/Shortness of Breath. (CLAUDETTE for Ventolin with dose counter) sertraline (ZOLOFT) 100 mg tablet Take 1 tablet by mouth once daily. acyclovir (ZOVIRAX) 400 mg tablet Take 1 tablet by mouth three times daily. NORGESTIMATE-ETHINYL ESTRADIOL (SPRINTEC, 28, ORAL) Take by mouth. diclofenac, EC, (VOLTAREN) 75 mg EC tablet EPINEPHrine (EPIPEN) 0.3 mg/0.3 mL auto-injector methocarbamol (ROBAXIN) 500 mg tablet Take one tablet up to three times a day as needed for spasm. albuterol (PROVENTIL) 2.5 mg /3 mL (0.083 %) nebulizer solution Use 3 mL via nebulizer every 6 hours as needed for Wheezing/Shortness of Breath. 1 vial contains 3 ml. albuterol 5 mg/mL Nebu Inhale 0.5 mL as instructed one time only for 1 dose. OVER 5-15 MINUTES. FOR WHEEZING AND SHORTNESS OF BREATH. Social history: Sick contacts: no Attends daycare or school: no REVIEW OF SYSTEMS All other systems reviewed and are negative. OBJECTIVE Physical Exam: BP 124/82 Pulse 92 Temp 36.8 ?C (98.3 ?F) (Temporal Artery) Resp 20 Ht 172.7 cm (5' 8) Wt (!) 199.4 kg (439 lb 9.6 oz) LMP 10/30/2017 BMI 66.84 kg/m? General: Well developed, No acute distress, ill-appearing but non-toxic Eyes: clear, no drainage Ears: TMs translucent Nose: no erythema or exudate OP: no lesions, moist mucous membranes, normal tonsils Neck: supple and no adenopathy Lungs: clear to auscultation bilaterally, good air exchange, no retractions CVS: Normal rate, regular rhythm, no murmur Abdomen: Patient is obese and therefore exam is limited but abdomen is soft, no guarding present. Some tenderness of RLQ with pressure to area. +CVA tenderness on the right. Skin: Normal color, texture and turgor. No rashes. Assessment/Plan: Encounter Diagnosis ICD-10-CM 1. Non-intractable vomiting with nausea, unspecified vomiting type R11.2 ondansetron orally disintegrating (ZOFRAN ODT) 4 mg disintegrating tablet 2. Adrenal nodule (HCC) E27.9 3. Kidney stone on right side N20.0 UA DIP B/O URINE CULTURE 4. Abnormal laboratory test result R89.9 CBC + DIFF Adrenal Nodule - size increased from 1.2cm in 2013 to 1.7cm in 2018. While this is likely benign, given her issues with obesity will refer to Endocrinology for possible evaluation of Abner's or other endocrinopathies. Follow up for persistent or worsening symptoms, not drinking, decreased urination, or other concerns. 30 min spent with Scar today. Over half of the time spent on counseling and continuity of care. SIGNATURE: Rebeca Portillo MD PATIENT NAME: Scar White DATE: January 07, 2018 TIME: 1:34 PM Rebeca Portillo MD 01/07/2018 1:34 PM Signed 5 to Go!TM Healthy Kids Inside AND Out 5 Eat FIVE fruits and veggies a day 4 Give and get FOUR compliments a day 3 Consume THREE calcium products a day 2 Limit media time to TWO hours a day 1 Get at least ONE hour of exercise a day 0 Consume ZERO sugar-sweetened drinks Go! Be healthy, inside and out! [email or web address] Zaira Cazares Psr 01/11/2018 9:09 AM Signed 1st attemp/left message to call back to schedule consult to endocrinology Referring Provider: SELF [[id number]] Allergies As of Date: 01/07/2018 Noted Allergy Reaction AUGMENTIN (AMOXICILLIN-POT CLAVUL*12/15/2012 6 - Diarrhea BENTYL (DICYCLOMINE HCL) 07/19/2013 11 - Vomiting CELERY 04/23/2016 14 - Other: See Comments Comments: Throat AND tongue numbness DIMETAPP (BROMPHENIRAMINE-PSEUDOE*05/17/2005 FRUCTOSE 01/17/2014 14 - Other: See Comments Comments: Abdominal pain, gassiness, diarrhea PENICILLINS 09/05/2011 2 - Rash Date Reviewed: 01/07/2018 Reviewed by: Lubna [employer] - Fully Assessed Reason for Visit: ED Follow-up [821] Cmt: patient was seen at Urgent Care on 12-31-2017 and then [facility] on 01-02-2018, States still having the Nausea and Abdominal Pain Primary Visit Diagnosis:Non-intractable vomiting with nausea, unspecified vomiting type [R11.2] Other Visit Diagnoses:Adrenal nodule (HCC) [E27.9] Kidney stone on right side [N20.0] Abnormal laboratory test result [R89.9] Order(s):ondansetron orally disintegrating (ZOFRAN ODT) 4 mg disintegrating tabletTake 1 tablet by mouth every 8 hours as needed.Disp: 10 tabletRfl: 0 UA DIP B/O [[id number]] Order #: [id number] URINE CULTURE [SQURCUL] Order #: [id number]. #:[id number] CBC + DIFF [SQCBCDIF] Order #: [id number] FUTURE Prescriptions as of 01/07/2018 Sig: BECLOMETHASONE DIPROPIONATE 4* Inhale 2 Puffs as instructed * ALBUTEROL SULFATE HFA 90 MCG/* Inhale 2 Puffs as instructed * SERTRALINE 100 MG TABLET Take 1 tablet by mouth once d* ACYCLOVIR 400 MG TABLET Take 1 tablet by mouth three * SPRINTEC (28) ORAL Take by mouth. DICLOFENAC SODIUM 75 MG TABLE* EPINEPHRINE 0.3 MG/0.3 ML INJ* METHOCARBAMOL 500 MG TABLET Take one tablet up to three t* ALBUTEROL SULFATE 2.5 MG/3 ML* Use 3 mL via nebulizer every * ALBUTEROL SULFATE CONCENTRATE* Inhale 0.5 mL as instructed o* ONDANSETRON 4 MG DISINTEGRATI* Take 1 tablet by mouth every * Problem List As Of Date 01/07/2018 Noted Resolved ADD (Attention Deficit Disorder) [F98.8] INVALID FOR* Flat Feet [M21.41, M21.42] INVALID FOR* Skin tag [L91.8] INVALID FOR* Viral wart, unspecified [B07.9] INVALID FOR*07/21/2012 Multiple nevi [D22.9] INVALID FOR* Moderate persistent asthma without complication*INVALID FOR* Dysmenorrhea in the adolescent [N94.6] INVALID FOR* Abdominal pain [R10.9] INVALID FOR*01/10/2015 Nausea [R11.0] INVALID FOR*01/10/2015 Obesity peds (BMI >=95 percentile) [E66.9, Z68.*INVALID FOR* Fructose intolerance [E74.10] INVALID FOR* Depression [F32.9] INVALID FOR* Sciatica [M54.30] INVALID FOR* Anxiety [F41.9] PCOS (polycystic ovarian syndrome) [E28.2] INVALID FOR* Adrenal nodule (HCC) [E27.9] INVALID FOR* Other instructions from your clinician: 5 to Go!TM Healthy Kids Inside AND Out 5 Eat FIVE fruits and veggies a day 4 Give and get FOUR compliments a day 3 Consume THREE calcium products a day 2 Limit media time to TWO hours a day 1 Get at least ONE hour of exercise a day 0 Consume ZERO sugar-sweetened drinks Go! Be healthy, inside and out! [email or web address] Prescriptions ordered this encounter Disp Refills Start End ONDANSETRON 4 MG DISINTEGRATING TABL* 10 t* 0 01/07/2018 Route: ORAL Sig: Take 1 tablet by mouth every 8 hours as needed. Follow-up and Disposition History Recorded Encounter Status:Closed by REBECA PORTILLO on 01/13/18 EMERGENCY DEPARTMENT Observed: 01/03/2018 Status: F Source: [place] SUMMARY 5:58 AM [facility] Medical Records Department [address] [place] [address] Emergency Department Summary 01/02/18 2316 MR#: [id number] Acct: [id number] Name: SCAR WHITE Rep #: [id number] : 1995 22 From: Miguelito Cabrera MD PCP: Crow Power MD Status: DEP ER - ER Visit Summary Date of Service: 01/02/18 Chief Complaint: Right lower quadrant abdominal pain History of Present Illness: The patient is a 22 F 3 of polycystic ovarian syndrome, depression, anxiety and asthma. Patient has had a prior cholecystectomy and surgery for left ovarian cysts. She states for the last 5 days she has had right lower quadrant abdominal pain. Associated with nausea, vomiting and diarrhea the last 4 days. Denies any dysuria. Cannot remember her last menstrual period and states that they are very irregular. Currently she is on control. She denies any fever. She denies any back pain. She denies any abdominal trauma. She had pain similar to this before when she had a left ovarian cyst she had right lower quadrant abdominal pain she states. She denies any vaginal bleeding or discharge. Physical Examination: Well-appearing young female. Vital signs are stable and afebrile. She does not look septic or toxic. She is in no acute distress. H EENT exam unremarkable. Moist mucous membranes. Neck nontender. No lymphadenopathy. Lungs clear to auscultation bilaterally. Heart regular rhythm no murmur. Abdomen is morbidly obese. Soft. Her only tenderness is in the right lower quadrant. Normal bowel sounds. No peritoneal signs. Right upper, left upper and left lower quadrants are all nontender. No hernias or masses. Nondistended no signs of obstruction. She is moving all 4 extremities. They are neurovascularly intact. Back is nontender. Neurologically she is awake and alert with no focal motor deficits. Test Results: CBC shows an elevated white count of 16,600 but previously was much higher. Hemoglobin of 11 which is her baseline. No bands. BMP is normal with a creatinine of 0.7 and a normal gap. Liver enzymes are unremarkable except for an ALT slightly elevated at 101 and AST of 70. UA is normal. Serum test is negative. CT abdomen and pelvis with IV contrast only showed a fatty liver. A 1.7 cm left adrenal gland nodule. Which will need further evaluation and I discussed with patient. A right renal stone. The appendix was seen and appeared normal. No ovarian cyst seen. Emergency Department Course and Treatment: Patient treated with IV Toradol for pain. A liter of normal saline. Zofran for nausea. Treatment Plan: Multiple repeat exams patient's abdomen remains benign. Minimally tender in the right lower quadrant. No peritoneal signs. She and I discussed all test results and need for follow-up. She will be given a Zofran home pack for nausea. Follow-up with her primary care physician. Disposition: Discharge Impression: Acute right lower quadrant abdominal pain of uncertain etiology This note was generated with [employer] dictation software. It may contain incorrect words, spelling, and punctuation that were not noted in review of the chart prior to signing ED Disposition - Plan for ED Patient: Disposition: Home or Assisted Living Chief Complaint: Abd Pain Instructions: ED Abdominal Pain Unkn Cause Referrals: Crow Power MD [Primary Care Provider] - 3-5 Days if not improving Additional Instructions: Plenty of fluids and rest. Tylenol and Motrin for pain as needed. Zofran as needed for nausea and vomiting. Call and follow-up with your doctor if not improving or return to ER feeling worse. What to do if you have Problems For any increased pain, shortness of breath, bleeding, nausea or vomiting, chest pain, or any unexpected problems, contact your Primary Care Provider. Call [facility] ([phone]) or report to the closest Emergency Room. Call 911 if necessary. 01/03/18 0558 <Electronically signed by Miguelito Cabrera MD> Date Miguelito Cabrera MD Cosigner Signature (If Indicated): Date CC: Crow Power MD DISCHARGE INSTRUCTION Observed: 01/03/2018 Status: F Source: [place] 5:58 AM [facility] REPOSITORY [facility] Medical Records Department [address] [place] [address] Discharge Instruction 01/02/18 2327 MR#: [id number] Acct: [id number] Name: SCAR WHITE Rep #: [id number] : 1995 22 From: Miguelito Cabrera MD PCP: Crow Power MD Status: DEP ER ED Disposition - Plan for ED Patient: Disposition: Home or Assisted Living Chief Complaint: Abd Pain Instructions: ED Abdominal Pain Unkn Cause Referrals: Crow Power MD [Primary Care Provider] - 3-5 Days if not improving Additional Instructions: Plenty of fluids and rest. Tylenol and Motrin for pain as needed. Zofran as needed for nausea and vomiting. Call and follow-up with your doctor if not improving or return to ER feeling worse. Zofran as needed for nausea. You will need further evaluation of the left adrenal gland nodule in the future. What to do if you have Problems For any increased pain, shortness of breath, bleeding, nausea or vomiting, chest pain, or any unexpected problems, contact your Primary Care Provider. Call [facility] ([phone]) or report to the closest Emergency Room. Call 911 if necessary. 01/03/18 0558 <Electronically signed by Miguelito Cabrera MD> Date Miguelito Cabrera MD Cosigner Signature (If Indicated): Date CC: Crow Power MD CBC W/DIFF, AUTOMATED Collected: 01/02/2018 Status: F Source: [place] 11:40 PM [facility] REPOSITORY TYPE CODE TESTS RESULT OUT OF RANGE REFERENCE UNITS LAB L100.1000 4.4-11.0 K/mm3 High WBC 16.6 LAB L100.1200 4.2-5.4 M/mm3 Normal RBC 4.61 LAB L100.1300 12.0-15.0 g/dl Low HGB 11.7 LAB L100.1400 37-47 % Low HCT 36.6 LAB L100.1500 81-99 fL Low MCV 79.4 LAB L100.1600 27.0-32.0 pg Low MCH 25.4 LAB L100.1700 32-36 g/gl Normal MCHC 32.0 LAB L100.1810 11.6-14.6 % High RDW CV 16.2 LAB L100.1820 35.1-43.9 fl High RDW SD 46.2 LAB L100.1900 150-450 K/mm3 Normal PLT 388 LAB L100.2000 6.2-12.0 fl Normal MPV 9.9 LAB L100.2100 47-70 % Normal NEUT% 68.1 LAB L100.2200 19-41 % Normal LY% 23.1 LAB L100.2300 0-10 % Normal MONO% 5.9 LAB L100.2400 0-5 % Normal EO% 2.2 LAB L100.2500 0-1 % Normal BASO% 0.3 LAB L100.2550 0.0-0.9 % Normal IM GRAN % 0.400 Result Comment: IG% - Immature Granulocytes (promyelocytes, myelocytes and metamyelocytes) > 1% indicates that a LEFT SHIFT is Present. LAB L100.2620 2.0-7.7 X10 3/uL High Absolute Neut 11.3 LAB L100.2720 0.83-4.51 X10 3/ul Normal Absolute Lymph 3.85 Performed By: #### L100.0100 #### [facility] [address] [facility] [place], [place], [address] BASIC METABOLIC Collected: 01/02/2018 Status: F Source: [place] PROFILE (BMP) 11:40 PM [facility] REPOSITORY TYPE CODE TESTS RESULT OUT OF RANGE REFERENCE UNITS LAB L501.0100 74-106 mg/dL High GLU 144 Result Comment: Fasting Glucose result greater than or equal to 126 mg/dL suggests DIABETES MELLITUS per A.D.A. criteria. Please note revised GLUCOSE reference range effective 2017. LAB L501.1000 7-18 mg/dL Normal BUN 8 LAB L501.1100 0.55-1.02 mg/dL Normal CREAT,SERUM 0.70 Result Comment: The validity of the calculated GFR AND GFRAA in patients over 70 years has not been determined. Clinical correlation is essential. LAB L501.1110 >60 mL/min Normal EST GFR 112 Result Comment: Non- GFR Calc LAB L501.1115 >60 mL/min Normal EST GFR - AA 136 Result Comment: GFR Calc LAB L501.1255 ml/min Normal Estimated CRCL 129.32 LAB L501.1300 10-20 RATIO BUN/CRE Normal 11.4 LAB L501.2200 8.5-10 mg/dL .1 CA Normal 9.5 LAB L501.5300 136-14 mmol/L 5 NA Normal 140 LAB L501.5600 3.5-5. mmol/L 1 K Normal 3.9 LAB L501.5900 98-107 mmol/L CL Normal 105 LAB L501.6100 21.0-3 mmol/L 2.0 CO2 Normal 27.0 LAB L501.6200 5-15 GAP Normal 8 Performed By: #### L500.2500, L500.3400 #### [facility] [address] [place], [place], [id number] LIVER PROFILE Collected: 01/02/2018 Status: F Source: [place] 11:40 PM [facility] REPOSITORY TYPE CODE TESTS RESULT OUT OF RANGE REFERENCE UNITS LAB L501.1500 6.4-8.2 g/dL Normal T PROT 8.2 LAB L501.1800 3.2-5.0 g/dL Normal ALB 3.4 LAB L501.1950 2.2-4.2 g/dL High GLOB 4.8 LAB L501.4100 15-37 U/L High AST 70 LAB L501.4305 45-117 U/L Normal ALK P 82 LAB L501.4405 13-56 U/L High ALT 101 LAB L501.4600 0.20-1.00 mg/dL Normal T BILI 0.20 LAB L501.4700 0.00-0.30 mg/dL Normal D BILI 0.10 Performed By: #### L500.2500, L500.3400 #### [facility] [address] [place], [place], [id number] ,SERUM,HCG QUALI. Collected: Status: F Source: [place] 01/02/2018 11:40 PM [facility] REPOSITORY TYPE CODE TESTS RESULT OUT OF REFERENCE UNITS RANGE LAB L700.7000 0-9 Nonpreg Negative Normal HCGSQUAL NEGATIVE LAB L700.6700 =>Qualitative mIU/mL Normal HCG Qual < 1 triggr Performed By: #### L700.6800 #### [facility] [address] [place], [address] URINALYSIS, COMPLETE Collected: 01/02/2018 Status: F Source: [place] 11:30 PM [facility] REPOSITORY Order Comment: Order Date: 01/02/18 How was Urine Obtained? CLEAN CATCH TYPE CODE TESTS RESULT OUT OF RANGE REFERENCE UNITS LAB L400.3000 Yellow COLOR Normal Yellow LAB L400.3050 Clear Normal CLARITY Sl. Cloudy LAB L400.3200 Normal mg/dl Normal GLUCOSE, UR Normal LAB L400.3300 Negative mg/dL Normal BILIRUBIN URINE Negative LAB L400.3400 Negative mg/dl Normal KETONE UR Negative LAB L400.3465 1.002-1.030 Normal SP.GR. DIPSTX 1.015 LAB L400.3550 5.0 - 8.0 pH UR Normal 6.5 LAB L400.3600 Negative mg/dl High PROT 15 DIPSTX LAB L400.3700 Normal mg/dl Normal UROBILI Normal LAB L400.3750 Negative Normal NITRITE UR Negative LAB L400.3780 Negative /ul High 10 OCCULT BLOOD-UR LAB L400.3800 Negative /ul High LEUK 25 ESTERASE LAB L400.4050 0-5 /hpf WBC Normal 0-5 SEEN LAB L400.4100 0-5 /hpf Normal RBC-UA 0-5 SEEN LAB L400.4150 5-10 /hpf SQUAM Normal EPI 0-5 SEEN LAB L400.4300 None Seen /hpf 2+ Normal BACTERIA LAB L400.4350 <or=2+ /hpf 1+ Normal MUCUS, URINE Performed By: #### L400.0001 #### [facility] [address] [place], [address] ABDOMEN/PELVIS W IV CONT Observed: 01/02/2018 Status: F Source: LIDIA ONLY 11:15 PM [facility] REPOSITORY [facility] Imaging Services [address] [place] [address] Abdomen/Pelvis W IV Cont ONLY MR#: [id number] Acct: [id number] Name: SCAR WHITE Rep #: [id number] : 1995 F 22 From: Luis Enrique De Paz MD PCP: Crow Power MD Status: REG ER Study: Abdomen/Pelvis W IV Cont ONLY Date of Exam: 01/02/18 Exam# [id number] Ordering Dr: Miguelito Cabrera MD STUDY: CT ABDOMEN AND PELVIS WITH CONTRAST REASON FOR EXAM: Female, 22 years old. Right lower quadrant pain RADIATION DOSAGE (If Supplied By Facility): CTDIvol = ( 17.07 ) mGy, DLP = ( 1288.62 ) mGycm TECHNIQUE: Transaxial images were obtained from the dome of the diaphragm to the symphysis pubis without oral contrast. 100 ml of Isovue 300 contrast was administered. Sagittal and coronal images were reconstructed. Individualized dose optimization techniques were used for this CT. COMPARISON: None. FINDINGS: The visualized lung bases are unremarkable. The visualized portions of the heart are within normal limits. Mild hypoattenuation of the liver parenchyma. Gallbladder is surgically absent. No biliary duct dilatation. Normal spleen. Normal pancreas. 1.7 cm left adrenal gland nodule, slightly increased in size compared to prior imaging, previously measuring 1.2 cm. 5 mm calculus in the right lower pole. No hydronephrosis. Left kidney is normal. Bilateral ureters are normal. Normal visualized stomach. Normal small intestine. Normal colon. The appendix is visualized and appears normal. Normal abdominal aorta. Normal inferior vena cava. Normal retroperitoneum. Normal urinary bladder. Uterus and bilateral adnexa are unremarkable. Normal abdominal wall. Normal osseous structures. CT/Abdomen/Pelvis W IV Cont ONLY IMPRESSION: 1. Mild fatty infiltration of the liver. 2. 1.7 cm left adrenal gland nodule which has increased in size. Dedicated MR imaging is recommended for further characterization. 3. Nonobstructing 5 mm right lower renal pole calculus. 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 ANGEL White is a 22 year old female who presents today for CC of vomiting and diarrhea. This started yesterday. She had vomiting 3-4 times over past 24 hours, and several episodes of diarrhea. she denies fever or severe abdominal pain. Symptoms are worsened by nothing She has tried ibuprofen with slight relief. 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 BP 122/82 Pulse 82 Temp 37.1 ?C (98.8 ?F) (Tympanic) Resp 18 Wt (!) 197.3 kg (435 lb) BMI 64.80 kg/m? ALLERGIES Allergen Reactions - Augmentin [Amoxicil* Diarrhea - Bentyl [Dicyclomine* Vomiting - Celery Other: See Comments Throat AND tongue numbness - Dimetapp [Brompheni* - Fructose Other: See Comments Abdominal pain, gassiness, diarrhea - Penicillins Rash ACTIVE PROBLEM LIST Add (Attention Deficit Disorder) Flat Feet Skin Tag Multiple Nevi Moderate Persistent Asthma Without Complication Dysmenorrhea in The Adolescent Obesity Peds (Bmi >=95 Percentile) Fructose Intolerance Depression Sciatica Anxiety Pcos (Polycystic Ovarian Syndrome) Family History Problem Relation Age of Onset - Hypertension Paternal Grandmother - Heart Paternal Grandmother murmur - Glaucome,catarcts [OTHER] Paternal Grandmother - rare skin disease [OTHER] Paternal Grandmother - kidney stones [OTHER] Paternal Grandmother both kidneys removed - Breast Cancer Maternal Grandmother thyroid - Asthma Mother - Diabetes Father - Hypertension Father - Hypertension Maternal Grandfather polycystic kidneys,diverticulitis - Diabetes Maternal Grandfather Social History Marital status: Single Spouse name: Years of education: Number of children: Social History Main Topics Smoking status: Never Smoker Smokeless tobacco: Never Used Alcohol use: No Drug use: No Sexual activity: No 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 - Sciatica 10/18/2014 - Skin tag 03/28/2011 Review of Systems Constitutional: Negative for chills, fever and malaise/fatigue. Gastrointestinal: Positive for abdominal pain (mild), diarrhea and vomiting. Negative for constipation and nausea. Genitourinary: Negative for dysuria, flank pain, frequency, hematuria and urgency. Skin: Negative for rash. Neurological: Negative for headaches. Objective Physical Exam Constitutional: She is oriented to person, place, and time and well-developed, well-nourished, and in no distress. HENT: Head: Normocephalic and atraumatic. Eyes: Conjunctivae and EOM are normal. Pupils are equal, round, and reactive to light. Neck: Normal range of motion. Neck supple. Pulmonary/Chest: Effort normal. Abdominal: Soft. Normal appearance. She exhibits no pulsatile midline mass. Bowel sounds are hyperactive. There is no hepatosplenomegaly. There is generalized tenderness. There is no rigidity, no rebound, no guarding, no CVA tenderness, no tenderness at McBurney's point and negative Burkett's sign. Morbid obesity, due to body habitus, limits exam. Neurological: She is alert and oriented to person, place, and time. Skin: Skin is warm. Psychiatric: Affect normal. Nursing note and vitals reviewed. ASSESSMENT/PLAN: 1. Vomiting and diarrhea - ICD9: 787.03, 787.91, ICD10: R11.10, R19.7 Drink small sips of clear fluids to begin with. Advance to other liquids as tolerated. If tolerating liquids for several hours without vomiting, then you can try bland foods such as toast, crackers, etc. Advance to full diet when nausea/vomiting has completely resolved but avoid greasy, fatty, spicy foods for next several days. Monitor hydration, Encourage increasing water intakeneed to have 2 urines in 8 hours that are light yellow to yellow in color, if not need to go to ER for further treatment. To ER for worsening symptoms, increased pain, fevers, vomiting, decreased urine output, blood in her urine blood in her stools or dark tarry stools. Diagnosis and treatment plan were discussed and questions were answered to the patient's satisfaction. Pt acknowledged understanding of concepts and follow up plan. Specific signs and symptoms that would indicate the need for higher level of care were discussed in detail warranting prompt ER evaluation. Pily Casiano APRN.CNP CNOV Observed: 12/31/2017 Status: COMPLETED Source: [place] 11:30 AM [facility] REPOSITORY Office Visit (WSTR) SCAR WHITE ([id number]) 1995 F Date Time Provider Department 12/31/17 11:30 AM PILY CASIANO (DIANE) [facility] During your visit today, we recorded the following information about you: Temperature Pulse Respiration Blood pressure 98.8 degrees 82/minute 18/minute 122/82 Weight 197.3 kg Pily Casiano APRN.CNP 12/31/2017 12:03 PM Signed Subjective The history is provided by the patient and a parent. ANGEL Villalucia [place] is a 22 year old female who presents today for CC of vomiting and diarrhea. This started yesterday. She had vomiting 3-4 times over past 24 hours, and several episodes of diarrhea. she denies fever or severe abdominal pain. Symptoms are worsened by nothing She has tried ibuprofen with slight relief. 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 BP 122/82 Pulse 82 Temp 37.1 ?C (98.8 ?F) (Tympanic) Resp 18 Wt (!) 197.3 kg (435 lb) BMI 64.80 kg/m? ALLERGIES Allergen Reactions - Augmentin [Amoxicil* Diarrhea - Bentyl [Dicyclomine* Vomiting - Celery Other: See Comments Throat AND tongue numbness - Dimetapp [Brompheni* - Fructose Other: See Comments Abdominal pain, gassiness, diarrhea - Penicillins Rash ACTIVE PROBLEM LIST Add (Attention Deficit Disorder) Flat Feet Skin Tag Multiple Nevi Moderate Persistent Asthma Without Complication Dysmenorrhea in The Adolescent Obesity Peds (Bmi >=95 Percentile) Fructose Intolerance Depression Sciatica Anxiety Pcos (Polycystic Ovarian Syndrome) Family History Problem Relation Age of Onset - Hypertension Paternal Grandmother - Heart Paternal Grandmother murmur - Glaucome,catarcts [OTHER] Paternal Grandmother - rare skin disease [OTHER] Paternal Grandmother - kidney stones [OTHER] Paternal Grandmother both kidneys removed - Breast Cancer Maternal Grandmother thyroid - Asthma Mother - Diabetes Father - Hypertension Father - Hypertension Maternal Grandfather polycystic kidneys,diverticulitis - Diabetes Maternal Grandfather Social History Marital status: Single Spouse name: Years of education: Number of children: Social History Main Topics Smoking status: Never Smoker Smokeless tobacco: Never Used Alcohol use: No Drug use: No Sexual activity: No 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 - Sciatica 10/18/2014 - Skin tag 03/28/2011 Review of Systems Constitutional: Negative for chills, fever and malaise/fatigue. Gastrointestinal: Positive for abdominal pain (mild), diarrhea and vomiting. Negative for constipation and nausea. Genitourinary: Negative for dysuria, flank pain, frequency, hematuria and urgency. Skin: Negative for rash. Neurological: Negative for headaches. Objective Physical Exam Constitutional: She is oriented to person, place, and time and well-developed, well-nourished, and in no distress. HENT: Head: Normocephalic and atraumatic. Eyes: Conjunctivae and EOM are normal. Pupils are equal, round, and reactive to light. Neck: Normal range of motion. Neck supple. Pulmonary/Chest: Effort normal. Abdominal: Soft. Normal appearance. She exhibits no pulsatile midline mass. Bowel sounds are hyperactive. There is no hepatosplenomegaly. There is generalized tenderness. There is no rigidity, no rebound, no guarding, no CVA tenderness, no tenderness at McBurney's point and negative Burkett's sign. Morbid obesity, due to body habitus, limits exam. Neurological: She is alert and oriented to person, place, and time. Skin: Skin is warm. Psychiatric: Affect normal. Nursing note and vitals reviewed. ASSESSMENT/PLAN: 1. Vomiting and diarrhea - ICD9: 787.03, 787.91, ICD10: R11.10, R19.7 Drink small sips of clear fluids to begin with. Advance to other liquids as tolerated. If tolerating liquids for several hours without vomiting, then you can try bland foods such as toast, crackers, etc. Advance to full diet when nausea/vomiting has completely resolved but avoid greasy, fatty, spicy foods for next several days. Monitor hydration, Encourage increasing water intakeneed to have 2 urines in 8 hours that are light yellow to yellow in color, if not need to go to ER for further treatment. To ER for worsening symptoms, increased pain, fevers, vomiting, decreased urine output, blood in her urine blood in her stools or dark tarry stools. Diagnosis and treatment plan were discussed and questions were answered to the patient's satisfaction. Pt acknowledged understanding of concepts and follow up plan. Specific signs and symptoms that would indicate the need for higher level of care were discussed in detail warranting prompt ER evaluation. Pily Casiano APRN.DIANE Casiano APRN.CNP 12/31/2017 12:02 PM Addendum ASSESSMENT/PLAN: 1. Vomiting and diarrhea - ICD9: 787.03, 787.91, ICD10: R11.10, R19.7 Drink small sips of clear fluids to begin with. Advance to other liquids as tolerated. If tolerating liquids for several hours without vomiting, then you can try bland foods such as toast, crackers, etc. Advance to full diet when nausea/vomiting has completely resolved but avoid greasy, fatty, spicy foods for next several days. Monitor hydration,Encourage increasing water intake, need to have 2 urines in 8 hours that are light yellow to yellow in color, if not need to go to ER for further treatment. To ER for worsening symptoms, increased pain, fevers, vomiting, decreased urine output, blood in her urine blood in her stools or dark tarry stools. Referring Provider: SELF [[id number]] Allergies As of Date: 12/31/2017 Noted Allergy Reaction AUGMENTIN (AMOXICILLIN-POT CLAVUL*12/15/2012 6 - Diarrhea BENTYL (DICYCLOMINE HCL) 07/19/2013 11 - Vomiting CELERY 04/23/2016 14 - Other: See Comments Comments: Throat AND tongue numbness DIMETAPP (BROMPHENIRAMINE-PSEUDOE*05/17/2005 FRUCTOSE 01/17/2014 14 - Other: See Comments Comments: Abdominal pain, gassiness, diarrhea PENICILLINS 09/05/2011 2 - Rash Date Reviewed: 12/31/2017 Reviewed by: Pily ([facility]) Stephenie - Fully Assessed Reason for Visit: Diarrhea [35] Cmt: vomiting x 24 hours Primary Visit Diagnosis:Vomiting and diarrhea [R11.10, R19.7] Prescriptions as of 12/31/2017 Sig: BECLOMETHASONE DIPROPIONATE 4* Inhale 2 Puffs as instructed * ALBUTEROL SULFATE HFA 90 MCG/* Inhale 2 Puffs as instructed * SERTRALINE 100 MG TABLET Take 1 tablet by mouth once d* SPRINTEC (28) ORAL Take by mouth. DICLOFENAC SODIUM 75 MG TABLE* EPINEPHRINE 0.3 MG/0.3 ML INJ* METHOCARBAMOL 500 MG TABLET Take one tablet up to three t* ALBUTEROL SULFATE 2.5 MG/3 ML* Use 3 mL via nebulizer every * ALBUTEROL SULFATE CONCENTRATE* Inhale 0.5 mL as instructed o* ACYCLOVIR 400 MG TABLET Take 1 tablet by mouth three * Patient not taking: Reported on 12/31/2017 Problem List As Of Date 12/31/2017 Noted Resolved ADD (Attention Deficit Disorder) [F98.8] INVALID FOR* Flat Feet [M21.41, M21.42] INVALID FOR* Skin tag [L91.8] INVALID FOR* Viral wart, unspecified [B07.9] INVALID FOR*07/21/2012 Multiple nevi [D22.9] INVALID FOR* Moderate persistent asthma without complication*INVALID FOR* Dysmenorrhea in the adolescent [N94.6] INVALID FOR* Abdominal pain [R10.9] INVALID FOR*01/10/2015 Nausea [R11.0] INVALID FOR*01/10/2015 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 Vomiting and diarrhea - ICD9: 787.03, 787.91, ICD10: R11.10, R19.7 Drink small sips of clear fluids to begin with. Advance to other liquids as tolerated. If tolerating liquids for several hours without vomiting, then you can try bland foods such as toast, crackers, etc. Advance to full diet when nausea/vomiting has completely resolved but avoid greasy, fatty, spicy foods for next several days. Monitor hydration,Encourage increasing water intake, need to have 2 urines in 8 hours that are light yellow to yellow in color, if not need to go to ER for further treatment. To ER for worsening symptoms, increased pain, fevers, vomiting, decreased urine output, blood in her urine blood in her stools or dark tarry stools. Medications Discontinued During This Encounter benzonatate (TESSALON PERLE) 100 mg * 30 c* 0 11/01/2017 12/31/2017 Sig: Take 1-2 capsules tid prn Patient not taking: Reported on 12/31/2017 Disc: Course of therapy completed Letter Text Pily Casiano APRN.[facility] [address] [facility] [address] Dept: [phone] 12/31/2017 [place] [address] [facility] [address] To Whom it May Concern: This is to certify that Scar M Cindy was seen at our office for medical care. Scar may return to work on 01.01.2018. If you have any questions please feel free to call. Sincerely: Pily Casiano APRN.DIANE Encounter Status:Closed by PILY CASIANO DIANE on 12/31/17 PROGRESS Observed: 12/22/2017 Status: COMPLETED Source: [place] 6:49 PM [facility] REPOSITORY HNO ID: [id number] Author: Crow Power Service: (none) Author Type: Physician Type: Progress Notes Filed: 12/22/2017 6:54 PM Note Text: The patient was seen for the issues discussed below. Problem list and history reviewed. Allergies reviewed. Medications reviewed. Immunizations reviewed. HISTORY: see history section below PHYSICAL EXAM: GENERAL: alert, mildly ill-appearing, in no distress LEFT EYE: no drainage noted, no conjunctival injection noted; RIGHT EYE: no drainage noted, no conjunctival injection noted; NO ADDITIONAL EYE FINDINGS LEFT EAR: pinna normal, auditory canal normal, tympanic membrane clear, no effusion noted, RIGHT EAR: pinna normal, auditory canal normal, tympanic membrane clear, no effusion noted NOSE/SINUSES: nares normal, mucosa normal, no drainage noted OROPHARYNX: lips without lesions noted, gums/mucosa normal, oropharynx without erythema or exudates NECK/ADENOPATHY: neck supple, no adenopathy noted CHEST/LUNGS: lungs clear to auscultation, no retractions noted, expiratory phase normal, normal respiratory rate and rhythm CARDIOVASCULAR: regular rate and rhythm, capillary refill less than 2 seconds SKIN: normal color, no rash, no jaundice, moist mucous membranes, turgor within normal limits GENERAL RECOMMENDATIONS: - Issues discussed in detail. - Symptom relief measures as needed. - Prescriptions, if ordered, are listed below. - Labs and/or X-rays, if ordered or obtained, are listed below. If the final results are not available at the conclusion of this visit, then additional recommendations may be made based on the final results. Note that all x-rays are reviewed by a radiologist before being considered final. - EKG, if ordered or obtained, is reviewed by a veteran appeals reviewer before being considered final. Additional recommendations may be made based on the final results. - Return to clinic should current symptoms (if present) worsen, other problems develop, or as needed. ADDITIONAL AND DICTATED PORTION: ADDITIONAL HISTORY The following Nursing History was reviewed with the family: Patient presents with: medication check Patient is here for an asthma medication recheck as well as a depression/anxiety medication recheck. She is also currently suffering from an illness. Scar is currently on Zoloft 100 mg per day. She has been successfully taking that approximately 50% of the time. She states it is easily forgotten. Specific depression screening questions noted in the separate documentation window. No current suicidal ideation. Scar is also having increased asthma exacerbation since she became ill 1 week ago. Prior to that her asthma was somewhat controlled. Asthma control test representing the period before she became ill showed a total score of 17. She is currently using her albuterol every 4 hours with minimal results. Prior to her illness she was using it less than once a week. She has a prescription for Qvar but it has not been used since the end of September. Currently no fevers have been present. Sore throat, cold sores, nasal congestion, and pain at the base of the ear bilaterally has been present. No lymphadenopathy. Coughing, wheezing, shortness of breath have been frequent. No tachypnea, retractions, cyanosis. No vomiting, diarrhea, abdominal pain. No rash. ACTIVE PROBLEM LIST Add (Attention Deficit Disorder) Flat Feet Skin Tag Multiple Nevi Moderate Persistent Asthma Without Complication Dysmenorrhea in The Adolescent Obesity Peds (Bmi >=95 Percentile) Fructose Intolerance Depression Sciatica Anxiety Pcos (Polycystic Ovarian Syndrome) IMPORTED 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 Depression under suboptimal control. We discussed that the patient needs to return to using her Zoloft 100 mg daily. Methods to help remember the medication on a daily basis were discussed. Recheck in 1-2 months. 2. Moderate persistent asthma also under suboptimal control. Prednisone burst to be utilized due to the current exacerbation. Then Qvar to be restarted. Also discussed in detail. 3. Continue symptom relief measures for the current viral illness (herpes simplex stomatitis). Time, established: Spent approx. 25+ minutes (93003 level) in [id number] contact with the patient and/or family, more than half of which was devoted to discussing the above problems. This note was partially generated using [employer] voice recognition system, and there may be some incorrect words, spellings, and punctuation that were not noted in checking the note before saving. Crow Power M.D. PROGRESS Observed: 12/22/2017 Status: COMPLETED Source: [place] 6:35 PM [facility] REPOSITORY O ID: [id number] Author: Crow Power Service: (none) Author Type: Physician Type: Progress Notes Filed: 12/22/2017 6:54 PM Note Text: Zung Depression Scale Important note: The Zung Self-Rating Depression scale is only a screening tool; it is not a diagnostic device. The result from this scale may indicate the need for further clinical evaluation. Patient instructions: Read each sentence carefully. For eash statement check the response that best corresponds to how often you have felt that way during the past two weeks. For statements 5 and 7, if you are on a diet, answer as if you were not. 1. I feel downhearted, blue and sad. Good part of the time (3) 2. Morning is when I feel the best. * Good part of the time (2) 3. I have crying spells or feel like it. Most or all of the time (4) 4. I have trouble sleeping through the night. Most or all of the time (4) 5. I eat as much as I used to. * Most or all of the time (1) 6. I enjoy looking at, talking to, and being with attractive women/men. * Some of the time (3) 7. I notice that I am losing weight. None of the time (1) 8. I have trouble with constipation. None of the time (1) 9. My heart beats faster than usual. Good part of the time (3) 10. I get tired for no reason. Most or all of the time (4) 11. My mind is as clear as it used to be. * Some of the time (3) 12. I find it easy to do the things I used to do. * None of the time (4) 13. I am restless and can't keep still. Some of the time (2) 14. I feel hopeful about the future. * Some of the time (3) 15. I am more irritable than usual. Some of the time (2) 16. I find it easy to make decisions. * None of the time (4) 17. I feel that I am useful and needed. * Some of the time (3) 18. My life is pretty full. * Good part of the time (2) 19. I feel that others would be better off if I were . Some of the time (2) 20. I still enjoy the things I used to do. * Some of the time (3) *note- scale reversed Raw score 54 SDS index conversion (raw score= SDS index) 54=68 SDS index Equivalent Clinical Global Impressions Below 50: Within normal range, no psychopathology 50-59 Presence of minimal to mild depression 60-69 Presence of moderate to marked depression 70 and over Presence of severe to exteme depression Crow Power MD CNOV Observed: 12/22/2017 Status: COMPLETED Source: [place] 6:30 PM [facility] REPOSITORY Office Visit (PEDSWS) SCAR WHITE ([id number]) 1995 F Date Time Provider Department 12/22/17 6:30 PM CROW POWER During your visit today, we recorded the following information about you: Temperature Pulse Respiration Blood pressure 98.7 degrees 92/minute 18/minute 142/80 Weight 197.1 kg Crow Power MD 12/22/2017 6:54 PM Signed Zung Depression Scale Important note: The Zung Self-Rating Depression scale is only a screening tool; it is not a diagnostic device. The result from this scale may indicate the need for further clinical evaluation. Patient instructions: Read each sentence carefully. For eash statement check the response that best corresponds to how often you have felt that way during the past two weeks. For statements 5 and 7, if you are on a diet, answer as if you were not. 1. I feel downhearted, blue and sad. Good part of the time (3) 2. Morning is when I feel the best. * Good part of the time (2) 3. I have crying spells or feel like it. Most or all of the time (4) 4. I have trouble sleeping through the night. Most or all of the time (4) 5. I eat as much as I used to. * Most or all of the time (1) 6. I enjoy looking at, talking to, and being with attractive women/men. * Some of the time (3) 7. I notice that I am losing weight. None of the time (1) 8. I have trouble with constipation. None of the time (1) 9. My heart beats faster than usual. Good part of the time (3) 10. I get tired for no reason. Most or all of the time (4) 11. My mind is as clear as it used to be. * Some of the time (3) 12. I find it easy to do the things I used to do. * None of the time (4) 13. I am restless and can't keep still. Some of the time (2) 14. I feel hopeful about the future. * Some of the time (3) 15. I am more irritable than usual. Some of the time (2) 16. I find it easy to make decisions. * None of the time (4) 17. I feel that I am useful and needed. * Some of the time (3) 18. My life is pretty full. * Good part of the time (2) 19. I feel that others would be better off if I were . Some of the time (2) 20. I still enjoy the things I used to do. * Some of the time (3) *note- scale reversed Raw score 54 SDS index conversion (raw score= SDS index) 54=68 SDS index Equivalent Clinical Global Impressions Below 50: Within normal range, no psychopathology 50-59 Presence of minimal to mild depression 60-69 Presence of moderate to marked depression 70 and over Presence of severe to exteme depression MD Crow Wilson MD 12/22/2017 6:54 PM Signed The patient was seen for the issues discussed below. Problem list and history reviewed. Allergies reviewed. Medications reviewed. Immunizations reviewed. HISTORY: see history section below PHYSICAL EXAM: GENERAL: alert, mildly ill-appearing, in no distress LEFT EYE: no drainage noted, no conjunctival injection noted; RIGHT EYE: no drainage noted, no conjunctival injection noted; NO ADDITIONAL EYE FINDINGS LEFT EAR: pinna normal, auditory canal normal, tympanic membrane clear, no effusion noted, RIGHT EAR: pinna normal, auditory canal normal, tympanic membrane clear, no effusion noted NOSE/SINUSES: nares normal, mucosa normal, no drainage noted OROPHARYNX: lips without lesions noted, gums/mucosa normal, oropharynx without erythema or exudates NECK/ADENOPATHY: neck supple, no adenopathy noted CHEST/LUNGS: lungs clear to auscultation, no retractions noted, expiratory phase normal, normal respiratory rate and rhythm CARDIOVASCULAR: regular rate and rhythm, capillary refill less than 2 seconds SKIN: normal color, no rash, no jaundice, moist mucous membranes, turgor within normal limits GENERAL RECOMMENDATIONS: - Issues discussed in detail. - Symptom relief measures as needed. - Prescriptions, if ordered, are listed below. - Labs and/or X-rays, if ordered or obtained, are listed below. If the final results are not available at the conclusion of this visit, then additional recommendations may be made based on the final results. Note that all x-rays are reviewed by a radiologist before being considered final. - EKG, if ordered or obtained, is reviewed by a veteran appeals reviewer before being considered final. Additional recommendations may be made based on the final results. - Return to clinic should current symptoms (if present) worsen, other problems develop, or as needed. ADDITIONAL AND DICTATED PORTION: ADDITIONAL HISTORY The following Nursing History was reviewed with the family: Patient presents with: medication check Patient is here for an asthma medication recheck as well as a depression/anxiety medication recheck. She is also currently suffering from an illness. Scar is currently on Zoloft 100 mg per day. She has been successfully taking that approximately 50% of the time. She states it is easily forgotten. Specific depression screening questions noted in the separate documentation window. No current suicidal ideation. Scar is also having increased asthma exacerbation since she became ill 1 week ago. Prior to that her asthma was somewhat controlled. Asthma control test representing the period before she became ill showed a total score of 17. She is currently using her albuterol every 4 hours with minimal results. Prior to her illness she was using it less than once a week. She has a prescription for Qvar but it has not been used since the end of September. Currently no fevers have been present. Sore throat, cold sores, nasal congestion, and pain at the base of the ear bilaterally has been present. No lymphadenopathy. Coughing, wheezing, shortness of breath have been frequent. No tachypnea, retractions, cyanosis. No vomiting, diarrhea, abdominal pain. No rash. ACTIVE PROBLEM LIST Add (Attention Deficit Disorder) Flat Feet Skin Tag Multiple Nevi Moderate Persistent Asthma Without Complication Dysmenorrhea in The Adolescent Obesity Peds (Bmi >=95 Percentile) Fructose Intolerance Depression Sciatica Anxiety Pcos (Polycystic Ovarian Syndrome) IMPORTED 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 Depression under suboptimal control. We discussed that the patient needs to return to using her Zoloft 100 mg daily. Methods to help remember the medication on a daily basis were discussed. Recheck in 1- 2 months. 2. Moderate persistent asthma also under suboptimal control. Prednisone burst to be utilized due to the current exacerbation. Then Qvar to be restarted. Also discussed in detail. 3. Continue symptom relief measures for the current viral illness (herpes simplex stomatitis). Time, established: Spent approx. 25+ minutes (70636 level) in [id number] contact with the patient and/or family, more than half of which was devoted to discussing the above problems. This note was partially generated using [employer] voice recognition system, and there may be some incorrect words, spellings, and punctuation that were not noted in checking the note before saving. Crow Power M.D. Referring Provider: SELF [[id number]] Allergies As of Date: 12/22/2017 Noted Allergy Reaction AUGMENTIN (AMOXICILLIN-POT CLAVUL*12/15/2012 6 - Diarrhea BENTYL (DICYCLOMINE HCL) 07/19/2013 11 - Vomiting CELERY 04/23/2016 14 - Other: See Comments Comments: Throat AND tongue numbness DIMETAPP (BROMPHENIRAMINE-PSEUDOE*05/17/2005 FRUCTOSE 01/17/2014 14 - Other: See Comments Comments: Abdominal pain, gassiness, diarrhea PENICILLINS 09/05/2011 2 - Rash Date Reviewed: 12/22/2017 Reviewed by: Crow Power - Fully Assessed Reason for Visit: medication check [Other] Primary Visit Diagnosis:Depression, unspecified depression type [F32.9] Other Visit Diagnoses:Anxiety [F41.9] Moderate persistent asthma without complication [J45.40] Viral syndrome [B34.9] Order(s):predniSONE (DELTASONE) 20 mg tabletTake 3 tablets by mouth once daily for 3 days.Disp: 9 tabletRfl: 0 beclomethasone (QVAR) 40 mcg/actuation inhalerInhale 2 Puffs as instructed twice daily.Disp: 1 InhalerRfl: 5 albuterol HFA (PROVENTIL HFA, VENTOLIN HFA) 90 mcg/actuation inhalerInhale 2 Puffs as instructed every 6 hours as needed for Wheezing/Shortness of Breath. (CLAUDETTE for Ventolin with dose counter)Disp: 1 InhalerRfl: 2 sertraline (ZOLOFT) 100 mg tabletTake 1 tablet by mouth once daily.Disp: 30 tabletRfl: 0 Prescriptions as of 12/22/2017 Sig: BECLOMETHASONE DIPROPIONATE 4* Inhale 2 Puffs as instructed * ALBUTEROL SULFATE HFA 90 MCG/* Inhale 2 Puffs as instructed * ACYCLOVIR 400 MG TABLET Take 1 tablet by mouth three * BENZONATATE 100 MG CAPSULE Take 1-2 capsules tid prn SPRINTEC (28) ORAL Take by mouth. DICLOFENAC SODIUM 75 MG TABLE* EPINEPHRINE 0.3 MG/0.3 ML INJ* METHOCARBAMOL 500 MG TABLET Take one tablet up to three t* ALBUTEROL SULFATE 2.5 MG/3 ML* Use 3 mL via nebulizer every * PREDNISONE 20 MG TABLET Take 3 tablets by mouth once * SERTRALINE 100 MG TABLET Take 1 tablet by mouth once d* Problem List As Of Date 12/22/2017 Noted Resolved ADD (Attention Deficit Disorder) [F98.8] INVALID FOR* Flat Feet [M21.41, M21.42] INVALID FOR* Skin tag [L91.8] INVALID FOR* Viral wart, unspecified [B07.9] INVALID FOR*07/21/2012 Multiple nevi [D22.9] INVALID FOR* Moderate persistent asthma without complication*INVALID FOR* Dysmenorrhea in the adolescent [N94.6] INVALID FOR* Abdominal pain [R10.9] INVALID FOR*01/10/2015 Nausea [R11.0] INVALID FOR*01/10/2015 Obesity peds (BMI >=95 percentile) [E66.9, Z68.*INVALID FOR* Fructose intolerance [E74.10] INVALID FOR* Depression [F32.9] INVALID FOR* Sciatica [M54.30] INVALID FOR* Anxiety [F41.9] PCOS (polycystic ovarian syndrome) [E28.2] INVALID FOR* Prescriptions ordered this encounter Disp Refills Start End PREDNISONE 20 MG TABLET 9 ta* 0 12/22/2017 12/25/2017 Route: ORAL Sig: Take 3 tablets by mouth once daily for 3 days. BECLOMETHASONE DIPROPIONATE 40 MCG/A* 1 In* 5 12/22/2017 Class: Print RX Route: INHALATION Sig: Inhale 2 Puffs as instructed twice daily. ALBUTEROL SULFATE HFA 90 MCG/ACTUATI* 1 In* 2 12/22/2017 Route: INHALATION Sig: Inhale 2 Puffs as instructed every 6 hours as needed for Wheezing/Shortness of Breath. (CLAUDETTE for Ventolin with dose counter) SERTRALINE 100 MG TABLET 30 t* 0 12/22/2017 01/21/2018 Route: ORAL Sig: Take 1 tablet by mouth once daily. Medications Discontinued During This Encounter beclomethasone (QVAR) 40 mcg/actuati* 1 In* 5 06/19/2017 12/22/2017 Route: INHALATION Sig: Inhale 2 Puffs as instructed twice daily. Disc: Reason for discontinue is not on file. albuterol HFA (PROVENTIL HFA, VENTOL* 1 In* 2 05/30/2016 12/22/2017 Route: INHALATION Sig: Inhale 2 Puffs as instructed every 6 hours as needed for Wheezing/Shortness of Breath. (CLAUDETTE for Ventolin with dose counter) Disc: Reason for discontinue is not on file. sertraline (ZOLOFT) 100 mg tablet 30 t* 0 11/10/2017 12/22/2017 Route: ORAL Sig: Take 1 tablet by mouth once daily. Disc: Reason for discontinue is not on file. Questionnaire: ASTHMA CONTROL TEST Last 4 weeks, your asthma limited your activity at work or home: -> 3 SOME OF THE TIME Past 4 weeks, how often have you had shortness of breath? -> 3 TO 6 TIMES A WEEK Past 4 weeks: Asthma symptoms woke you at night or earlier than usual? -> 4 ONCE OR TWICE Past 4 weeks: How often did you use rescue inhaler or nebulizer med? -> 4 ONCE OR LESS A WEEK Rate your Asthma Control during the past 4 weeks: -> 3 SOMEWHAT CONTROLLED ACT TOTAL SCORE: -> 17 Encounter Status:Closed by CROW POWER MD on 12/22/17 GROUP A STREP BY Collected: 12/13/2017 Status: F Source: [place] PCR 3:15 PM [facility] REPOSITORY TYPE CODE TESTS RESULT OUT OF REFERENCE UNITS RANGE LAB GASSRC Throat Swab GAS Specimen Source LAB PCRGAS Negative for Group A Strep Group A PCR Streptococcus by PCR. Result Comment: This test was developed and its performance characteristics determined by [facility] [place] ([facility]). It has not been cleared or approved by the FDA. [facility] is regulated under CLIA as qualified to perform high-complexity testing. This test is used for clinical purposes. It should not be regarded as inv estigational or for research. Performed By: #### GASPCR #### [facility] [address] [id number] PROGRESS Observed: 12/13/2017 Status: COMPLETED Source: [place] 2:41 PM [facility] REPOSITORY HNO ID: [id number] Author: Andrew Ch) Service: (none) Author Type: Nurse Practitioner Type: Progress Notes Filed: 12/13/2017 3:23 PM Note Text: Subjective HPI HPI Scar White is a 22 year old female who presents today for CC of painful lip blisters. This started 2 days ago. Has tried noting. Symptoms are worsened by nothing. Risk factors family with oral herpes. Patient has never had this before. Intermittent sore throat for past few days. .Patient presents with: Mouth Sores 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 - Sciatica 10/18/2014 - Skin tag 03/28/2011 PAST SURGICAL HISTORY Procedure Laterality Date - EGD 04/05/13 Mild Gastritis - LAPAROSCOPIC CHOLEYCYSTECTOMY 12/28/13 - OVARIAN CYSTECTOMY 07/08/2017 - REMOVE TONSILS/ADENOIDS,<12 Y/O < 6 yrs ALLERGIES Augmentin [Amoxicillin-Pot Clavulanate]; Bentyl [Dicyclomine Hcl]; Celery; Dimetapp [Brompheniramine-Pseudoephedrin]; Fructose; Penicillins MEDICATIONS trimethoprim-polymyxin eye drops (POLYTRIM) ophthalmic solution Use 2 Drops in the right eye every 4 hours for 7 days. sertraline (ZOLOFT) 100 mg tablet Take 1 tablet by mouth once daily. NORGESTIMATE-ETHINYL ESTRADIOL (SPRINTEC, 28, ORAL) Take by mouth. beclomethasone (QVAR) 40 mcg/actuation inhaler Inhale 2 Puffs as instructed twice daily. diclofenac, EC, (VOLTAREN) 75 mg EC tablet EPINEPHrine (EPIPEN) 0.3 mg/0.3 mL auto-injector methocarbamol (ROBAXIN) 500 mg tablet Take one tablet up to three times a day as needed for spasm. albuterol (PROVENTIL) 2.5 mg /3 mL (0.083 %) nebulizer solution Use 3 mL via nebulizer every 6 hours as needed for Wheezing/Shortness of Breath. 1 vial contains 3 ml. albuterol HFA (PROVENTIL HFA, VENTOLIN HFA) 90 mcg/actuation inhaler Inhale 2 Puffs as instructed every 6 hours as needed for Wheezing/Shortness of Breath. (CLAUDETTE for Ventolin with dose counter) benzonatate (TESSALON PERLE) 100 mg capsule Take 1-2 capsules tid prn FAMILY HISTORY Problem Relation Age of Onset - Hypertension Paternal Grandmother - Heart Paternal Grandmother murmur - Glaucome,catarcts [OTHER] Paternal Grandmother - rare skin disease [OTHER] Paternal Grandmother - kidney stones [OTHER] Paternal Grandmother both kidneys removed - Breast Cancer Maternal Grandmother thyroid - Asthma Mother - Diabetes Father - Hypertension Father - Hypertension Maternal Grandfather polycystic kidneys,diverticulitis - Diabetes Maternal Grandfather Social History Substance Use Topics - Smoking status: Never Smoker - Smokeless tobacco: Never Used - Alcohol use No Review of Systems Constitutional: Negative for chills, fever and weight loss. HENT: Positive for sore throat. Negative for congestion, ear pain and nosebleeds. Respiratory: Negative for cough, shortness of breath and wheezing. Musculoskeletal: Negative for neck pain. Objective Blood pressure 128/88, pulse 102, temperature 36.9 ?C (98.4 ?F), temperature source Left Tympanic, resp. rate 20, weight (!) 201.4 kg (444 lb), SpO2 96 %. Physical Exam Constitutional: She is oriented to person, place, and time and well-developed, well-nourished, and in no distress. Non-toxic appearance. She does not have a sickly appearance. No distress. HENT: Head: Normocephalic and atraumatic. Right Ear: Hearing, tympanic membrane, external ear and ear canal normal. Left Ear: Hearing, tympanic membrane, external ear and ear canal normal. Nose: Nose normal. Mouth/Throat: Uvula is midline, oropharynx is clear and moist and mucous membranes are normal. Eyes: Conjunctivae and lids are normal. Pupils are equal, round, and reactive to light. Right eye exhibits no discharge. Left eye exhibits no discharge. No scleral icterus. Neck: Trachea normal and normal range of motion. Neck supple. Cardiovascular: Normal rate, regular rhythm and normal heart sounds. Pulmonary/Chest: Effort normal and breath sounds normal. Lymphadenopathy: She has cervical adenopathy. Right cervical: Superficial cervical adenopathy present. Left cervical: Superficial cervical adenopathy present. Neurological: She is alert and oriented to person, place, and time. Skin: No rash noted. She is not diaphoretic. ASSESSMENT/PLAN: 1. Oral herpes - ICD9: 054.2, ICD10: B00.2 (primary diagnosis) -use medication as prescribed -follow up if symptoms persist, worsen, change -given educational handout -discussed expected course/contagiousness - ACYCLOVIR 400 MG TABLET 2. Sore throat - ICD9: 462, ICD10: J02.9 - Rapid Strep negative in the office today and Throat culture pending - Discussed supportive care treatment with fluids, rest and analgesia. - The patient should follow up in 3-5 days if symptoms persist or worsen - Call back if drooling, increased temperature, symptoms of dehydration and/or still sick in one week - RAPID STREP TEST B/O - GROUP A STREPTOCOCCUS BY PCR Prescription instructions reviewed with patient as applicable. Patient advised if symptoms do not improve or if symptoms worsen sooner, to contact the office for further evaluation by their primary care physician. Potential red flag symptoms discussed with the patient. Reviewed appropriate action plan to take if red flag symptoms occur. Patient agreeable to treatment plan. Andrew Driver APRN.DIANE CNOV Observed: 12/13/2017 Status: COMPLETED Source: [place] 2:30 PM [facility] REPOSITORY Office Visit (WSTR) SCAR WHITE ([id number]) 1995 F Date Time Provider Department 12/13/17 2:30 PM ANDREW DRIVER (DIANE) [facility] During your visit today, we recorded the following information about you: Temperature Pulse Respiration Blood pressure 98.4 degrees 102/minute 20/minute 128/88 Weight 201.4 kg Andrew Driver APRN.CNP 12/13/2017 3:23 PM Signed Subjective HPI HPI Scarlucia Martinsbertin is a 22 year old female who presents today for CC of painful lip blisters. This started 2 days ago. Has tried noting. Symptoms are worsened by nothing. Risk factors family with oral herpes. Patient has never had this before. Intermittent sore throat for past few days. .Patient presents with: Mouth Sores 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 - Sciatica 10/18/2014 - Skin tag 03/28/2011 PAST SURGICAL HISTORY Procedure Laterality Date - EGD 04/05/13 Mild Gastritis - LAPAROSCOPIC CHOLEYCYSTECTOMY 12/28/13 - OVARIAN CYSTECTOMY 07/08/2017 - REMOVE TONSILS/ADENOIDS,<12 Y/O < 6 yrs ALLERGIES Augmentin [Amoxicillin-Pot Clavulanate]; Bentyl [Dicyclomine Hcl]; Celery; Dimetapp [Brompheniramine-Pseudoephedrin]; Fructose; Penicillins MEDICATIONS trimethoprim-polymyxin eye drops (POLYTRIM) ophthalmic solution Use 2 Drops in the right eye every 4 hours for 7 days. sertraline (ZOLOFT) 100 mg tablet Take 1 tablet by mouth once daily. NORGESTIMATE-ETHINYL ESTRADIOL (SPRINTEC, 28, ORAL) Take by mouth. beclomethasone (QVAR) 40 mcg/actuation inhaler Inhale 2 Puffs as instructed twice daily. diclofenac, EC, (VOLTAREN) 75 mg EC tablet EPINEPHrine (EPIPEN) 0.3 mg/0.3 mL auto-injector methocarbamol (ROBAXIN) 500 mg tablet Take one tablet up to three times a day as needed for spasm. albuterol (PROVENTIL) 2.5 mg /3 mL (0.083 %) nebulizer solution Use 3 mL via nebulizer every 6 hours as needed for Wheezing/Shortness of Breath. 1 vial contains 3 ml. albuterol HFA (PROVENTIL HFA, VENTOLIN HFA) 90 mcg/actuation inhaler Inhale 2 Puffs as instructed every 6 hours as needed for Wheezing/Shortness of Breath. (CLAUDETTE for Ventolin with dose counter) benzonatate (TESSALON PERLE) 100 mg capsule Take 1-2 capsules tid prn FAMILY HISTORY Problem Relation Age of Onset - Hypertension Paternal Grandmother - Heart Paternal Grandmother murmur - Glaucome,catarcts [OTHER] Paternal Grandmother - rare skin disease [OTHER] Paternal Grandmother - kidney stones [OTHER] Paternal Grandmother both kidneys removed - Breast Cancer Maternal Grandmother thyroid - Asthma Mother - Diabetes Father - Hypertension Father - Hypertension Maternal Grandfather polycystic kidneys,diverticulitis - Diabetes Maternal Grandfather Social History Substance Use Topics - Smoking status: Never Smoker - Smokeless tobacco: Never Used - Alcohol use No Review of Systems Constitutional: Negative for chills, fever and weight loss. HENT: Positive for sore throat. Negative for congestion, ear pain and nosebleeds. Respiratory: Negative for cough, shortness of breath and wheezing. Musculoskeletal: Negative for neck pain. Objective Blood pressure 128/88, pulse 102, temperature 36.9 ?C (98.4 ?F), temperature source Left Tympanic, resp. rate 20, weight (!) 201.4 kg (444 lb), SpO2 96 %. Physical Exam Constitutional: She is oriented to person, place, and time and well-developed, well-nourished, and in no distress. Non-toxic appearance. She does not have a sickly appearance. No distress. HENT: Head: Normocephalic and atraumatic. Right Ear: Hearing, tympanic membrane, external ear and ear canal normal. Left Ear: Hearing, tympanic membrane, external ear and ear canal normal. Nose: Nose normal. Mouth/Throat: Uvula is midline, oropharynx is clear and moist and mucous membranes are normal. Eyes: Conjunctivae and lids are normal. Pupils are equal, round, and reactive to light. Right eye exhibits no discharge. Left eye exhibits no discharge. No scleral icterus. Neck: Trachea normal and normal range of motion. Neck supple. Cardiovascular: Normal rate, regular rhythm and normal heart sounds. Pulmonary/Chest: Effort normal and breath sounds normal. Lymphadenopathy: She has cervical adenopathy. Right cervical: Superficial cervical adenopathy present. Left cervical: Superficial cervical adenopathy present. Neurological: She is alert and oriented to person, place, and time. Skin: No rash noted. She is not diaphoretic. ASSESSMENT/PLAN: 1. Oral herpes - ICD9: 054.2, ICD10: B00.2 (primary diagnosis) -use medication as prescribed -follow up if symptoms persist, worsen, change -given educational handout -discussed expected course/contagiousness - ACYCLOVIR 400 MG TABLET 2. Sore throat - ICD9: 462, ICD10: J02.9 - Rapid Strep negative in the office today and Throat culture pending - Discussed supportive care treatment with fluids, rest and analgesia. - The patient should follow up in 3-5 days if symptoms persist or worsen - Call back if drooling, increased temperature, symptoms of dehydration and/or still sick in one week - RAPID STREP TEST B/O - GROUP A STREPTOCOCCUS BY PCR Prescription instructions reviewed with patient as applicable. Patient advised if symptoms do not improve or if symptoms worsen sooner, to contact the office for further evaluation by their primary care physician. Potential red flag symptoms discussed with the patient. Reviewed appropriate action plan to take if red flag symptoms occur. Patient agreeable to treatment plan. Andrew Driver APRN.WHEEL BLOCKER Referring Provider: SELF [[id number]] Allergies As of Date: 12/13/2017 Noted Allergy Reaction AUGMENTIN (AMOXICILLIN-POT CLAVUL*12/15/2012 6 - Diarrhea BENTYL (DICYCLOMINE HCL) 07/19/2013 11 - Vomiting CELERY 04/23/2016 14 - Other: See Comments Comments: Throat AND tongue numbness DIMETAPP (BROMPHENIRAMINE-PSEUDOE*05/17/2005 FRUCTOSE 01/17/2014 14 - Other: See Comments Comments: Abdominal pain, gassiness, diarrhea PENICILLINS 09/05/2011 2 - Rash Date Reviewed: 12/13/2017 Reviewed by: Andrew (Video Software Engineer) - Fully Assessed Reason for Visit: Mouth Sores [839] Primary Visit Diagnosis:Oral herpes [B00.2] Other Visit Diagnosis:Sore throat [J02.9] Order(s):RAPID STREP TEST B/O [[id number]] Order #: [id number] GROUP A STREPTOCOCCUS BY PCR [SQGASPCR] Order #: [id number] FUTURE acyclovir (ZOVIRAX) 400 mg tabletTake 1 tablet by mouth three times daily.Disp: 21 tabletRfl: 0 Prescriptions as of 12/13/2017 Sig: POLYMYXIN B SULFATE 10,000 UN* Use 2 Drops in the right eye * SERTRALINE 100 MG TABLET Take 1 tablet by mouth once d* SPRINTEC (28) ORAL Take by mouth. BECLOMETHASONE DIPROPIONATE 4* Inhale 2 Puffs as instructed * DICLOFENAC SODIUM 75 MG TABLE* EPINEPHRINE 0.3 MG/0.3 ML INJ* METHOCARBAMOL 500 MG TABLET Take one tablet up to three t* ALBUTEROL SULFATE 2.5 MG/3 ML* Use 3 mL via nebulizer every * ALBUTEROL SULFATE HFA 90 MCG/* Inhale 2 Puffs as instructed * ACYCLOVIR 400 MG TABLET Take 1 tablet by mouth three * BENZONATATE 100 MG CAPSULE Take 1-2 capsules tid prn Patient not taking: Reported on 12/10/2017 Problem List As Of Date 12/13/2017 Noted Resolved ADD (Attention Deficit Disorder) [F98.8] INVALID FOR* Flat Feet [M21.41, M21.42] INVALID FOR* Skin tag [L91.8] INVALID FOR* Viral wart, unspecified [B07.9] INVALID FOR*07/21/2012 Multiple nevi [D22.9] INVALID FOR* Moderate persistent asthma without complication*INVALID FOR* Dysmenorrhea in the adolescent [N94.6] INVALID FOR* Abdominal pain [R10.9] INVALID FOR*01/10/2015 Nausea [R11.0] INVALID FOR*01/10/2015 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 Encounter Status:Closed by ANDREW DRIVER CNP on 12/13/17 PROGRESS Observed: 12/10/2017 Status: COMPLETED Source: [place] 8:08 AM [facility] REPOSITORY O ID: [id number] Author: Bernice Suggs) Magan Service: (none) Author Type: Physician Knitting Machine Fixer Head Type: Progress Notes Filed: 12/10/2017 9:43 AM Note Text: Subjective HPI Pt presents with right eye drainage and discomfort since this am. Last night her eye was itching and she thought maybe she was bit by a bug. She does not wear contacts. No blurry or double vision. No cough congestion or sore throat. Review of Systems Eyes: Positive for discharge and redness. All other systems reviewed and are negative. 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 Disp: 30 tablet Rfl: 0 NORGESTIMATE-ETHINYL ESTRADIOL (SPRINTEC, 28, ORAL) Take by mouth. Disp: Rfl: beclomethasone (QVAR) 40 mcg/actuation inhaler Inhale 2 Puffs as instructed twice daily. Disp: 1 Inhaler Rfl: 5 diclofenac, EC, (VOLTAREN) 75 mg EC tablet Disp: Rfl: EPINEPHrine (EPIPEN) 0.3 mg/0.3 mL auto-injector Disp: Rfl: methocarbamol (ROBAXIN) 500 mg tablet Take one tablet up to three times a day as needed for spasm. Disp: Rfl: 0 albuterol (PROVENTIL) 2.5 mg /3 mL (0.083 %) nebulizer solution Use 3 mL via nebulizer every 6 hours as needed for Wheezing/Shortness of Breath. 1 vial contains 3 ml. Disp: 100 Vial Rfl: 1 albuterol HFA (PROVENTIL HFA, VENTOLIN HFA) 90 mcg/actuation inhaler Inhale 2 Puffs as instructed every 6 hours as needed for Wheezing/Shortness of Breath. (CLAUDETTE for Ventolin with dose counter) Disp: 1 Inhaler Rfl: 2 trimethoprim-polymyxin eye drops (POLYTRIM) ophthalmic solution Use 2 Drops in the right eye every 4 hours for 7 days. Disp: 1 Bottle Rfl: 0 benzonatate (TESSALON PERLE) 100 mg capsule Take 1-2 capsules tid prn (Patient not taking: Reported on 12/10/2017 ) Disp: 30 capsule Rfl: 0 No current facility-administered medications for this visit. PAST SURGICAL HISTORY Procedure Laterality Date - EGD 04/05/13 Mild Gastritis - LAPAROSCOPIC CHOLEYCYSTECTOMY 12/28/13 - OVARIAN CYSTECTOMY 07/08/2017 - REMOVE TONSILS/ADENOIDS,<12 Y/O < 6 yrs FAMILY HISTORY Problem Relation Age of Onset - Hypertension Paternal Grandmother - Heart Paternal Grandmother murmur - Glaucome,catarcts [OTHER] Paternal Grandmother - rare skin disease [OTHER] Paternal Grandmother - kidney stones [OTHER] Paternal Grandmother both kidneys removed - Breast Cancer Maternal Grandmother thyroid - Asthma Mother - Diabetes Father - Hypertension Father - Hypertension Maternal Grandfather polycystic kidneys,diverticulitis - Diabetes Maternal Grandfather Social History Substance Use Topics - Smoking status: Never Smoker - Smokeless tobacco: Never Used - Alcohol use No BP 110/76 Pulse 74 Temp 36.5 ?C (97.7 ?F) (Tympanic) Resp 16 Wt (!) 200 kg (441 lb) BMI 65.69 kg/m? Objective Physical Exam Constitutional: She is oriented to person, place, and time and well-developed, well-nourished, and in no distress. HENT: Head: Normocephalic and atraumatic. Right Ear: Tympanic membrane, external ear and ear canal normal. Left Ear: Tympanic membrane, external ear and ear canal normal. Nose: Nose normal. Mouth/Throat: Uvula is midline and oropharynx is clear and moist. Eyes: EOM are normal. Pupils are equal, round, and reactive to light. Lids are everted and swept, no foreign bodies found. Mild conjunctival erythema with discharge on the right. No hyphema. No Fb. No abrasions noted. No signs of orbital or periorbital cellulitis. Cardiovascular: Normal rate, regular rhythm and normal heart sounds. Pulmonary/Chest: Effort normal and breath sounds normal. Neurological: She is alert and oriented to person, place, and time. Skin: Skin is warm and dry. Psychiatric: Affect normal. Nursing note and vitals reviewed. ASSESSMENT/PLAN: 1. Acute conjunctivitis of right eye, unspecified acute conjunctivitis type - ICD9: 372.00, ICD10: H10.31 - see medication orders- polytrim - course and contagiousness issues discussed, including hand washing. - Instructed to call if high fever, development of periorbital redness or swelling, eye pain, visual changes, concerns or if symptoms persist. YOANDY Long Observed: 12/10/2017 Status: COMPLETED Source: [place] 8:00 AM [facility] REPOSITORY [facility] SCAR [facility] ([id number]) 1995 F Date Time Provider Department 12/10/17 8:00 AM BERNICE BEASLEY (VITO) [facility] During your visit today, we recorded the following information about you: Temperature Pulse Respiration Blood pressure 97.7 degrees 74/minute 16/minute 110/76 Weight 200 kg Bernice Beasley PA-C 12/10/2017 9:43 AM Signed Subjective HPI Pt presents with right eye drainage and discomfort since this am. Last night her eye was itching and she thought maybe she was bit by a bug. She does not wear contacts. No blurry or double vision. No cough congestion or sore throat. Review of Systems Eyes: Positive for discharge and redness. All other systems reviewed and are negative. 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 Disp: 30 tablet Rfl: 0 NORGESTIMATE-ETHINYL ESTRADIOL (SPRINTEC, 28, ORAL) Take by mouth. Disp: Rfl: beclomethasone (QVAR) 40 mcg/actuation inhaler Inhale 2 Puffs as instructed twice daily. Disp: 1 Inhaler Rfl: 5 diclofenac, EC, (VOLTAREN) 75 mg EC tablet Disp: Rfl: EPINEPHrine (EPIPEN) 0.3 mg/0.3 mL auto-injector Disp: Rfl: methocarbamol (ROBAXIN) 500 mg tablet Take one tablet up to three times a day as needed for spasm. Disp: Rfl: 0 albuterol (PROVENTIL) 2.5 mg /3 mL (0.083 %) nebulizer solution Use 3 mL via nebulizer every 6 hours as needed for Wheezing/Shortness of Breath. 1 vial contains 3 ml. Disp: 100 Vial Rfl: 1 albuterol HFA (PROVENTIL HFA, VENTOLIN HFA) 90 mcg/actuation inhaler Inhale 2 Puffs as instructed every 6 hours as needed for Wheezing/Shortness of Breath. (CLAUDETTE for Ventolin with dose counter) Disp: 1 Inhaler Rfl: 2 trimethoprim-polymyxin eye drops (POLYTRIM) ophthalmic solution Use 2 Drops in the right eye every 4 hours for 7 days. Disp: 1 Bottle Rfl: 0 benzonatate (TESSALON PERLE) 100 mg capsule Take 1-2 capsules tid prn (Patient not taking: Reported on 12/10/2017 ) Disp: 30 capsule Rfl: 0 No current facility-administered medications for this visit. PAST SURGICAL HISTORY Procedure Laterality Date - EGD 04/05/13 Mild Gastritis - LAPAROSCOPIC CHOLEYCYSTECTOMY 12/28/13 - OVARIAN CYSTECTOMY 07/08/2017 - REMOVE TONSILS/ADENOIDS,<12 Y/O < 6 yrs FAMILY HISTORY Problem Relation Age of Onset - Hypertension Paternal Grandmother - Heart Paternal Grandmother murmur - Glaucome,catarcts [OTHER] Paternal Grandmother - rare skin disease [OTHER] Paternal Grandmother - kidney stones [OTHER] Paternal Grandmother both kidneys removed - Breast Cancer Maternal Grandmother thyroid - Asthma Mother - Diabetes Father - Hypertension Father - Hypertension Maternal Grandfather polycystic kidneys,diverticulitis - Diabetes Maternal Grandfather Social History Substance Use Topics - Smoking status: Never Smoker - Smokeless tobacco: Never Used - Alcohol use No BP 110/76 Pulse 74 Temp 36.5 ?C (97.7 ?F) (Tympanic) Resp 16 Wt (!) 200 kg (441 lb) BMI 65.69 kg/m? Objective Physical Exam Constitutional: She is oriented to person, place, and time and well-developed, well-nourished, and in no distress. HENT: Head: Normocephalic and atraumatic. Right Ear: Tympanic membrane, external ear and ear canal normal. Left Ear: Tympanic membrane, external ear and ear canal normal. Nose: Nose normal. Mouth/Throat: Uvula is midline and oropharynx is clear and moist. Eyes: EOM are normal. Pupils are equal, round, and reactive to light. Lids are everted and swept, no foreign bodies found. Mild conjunctival erythema with discharge on the right. No hyphema. No Fb. No abrasions noted. No signs of orbital or periorbital cellulitis. Cardiovascular: Normal rate, regular rhythm and normal heart sounds. Pulmonary/Chest: Effort normal and breath sounds normal. Neurological: She is alert and oriented to person, place, and time. Skin: Skin is warm and dry. Psychiatric: Affect normal. Nursing note and vitals reviewed. ASSESSMENT/PLAN: 1. Acute conjunctivitis of right eye, unspecified acute conjunctivitis type - ICD9: 372.00, ICD10: H10.31 - see medication orders- polytrim - course and contagiousness issues discussed, including hand washing. - Instructed to call if high fever, development of periorbital redness or swelling, eye pain, visual changes, concerns or if symptoms persist. Bernice Beasley PA-C Referring Provider: SELF [200] Allergies As of Date: 12/10/2017 Noted Allergy Reaction AUGMENTIN (AMOXICILLIN-POT CLAVUL*12/15/2012 6 - Diarrhea BENTYL (DICYCLOMINE HCL) 07/19/2013 11 - Vomiting CELERY 04/23/2016 14 - Other: See Comments Comments: Throat AND tongue numbness DIMETAPP (BROMPHENIRAMINE-PSEUDOE*05/17/2005 FRUCTOSE 01/17/2014 14 - Other: See Comments Comments: Abdominal pain, gassiness, diarrhea PENICILLINS 09/05/2011 2 - Rash Date Reviewed: 12/10/2017 Reviewed by: Rebeca Burdick Ma - Fully Assessed Reason for Visit: Eye Problem [43] Cmt: insect bite in corner of right eye, painful x last night Primary Visit Diagnosis:Acute conjunctivitis of right eye, unspecified acute conjunctivitis type [H10.31] Order(s):trimethoprim-polymyxin eye drops (POLYTRIM) ophthalmic solutionUse 2 Drops in the right eye every 4 hours for 7 days.Disp: 1 BottleRfl: 0 Prescriptions as of 12/10/2017 Sig: SERTRALINE 100 MG TABLET Take 1 tablet by mouth once d* SPRINTEC (28) ORAL Take by mouth. BECLOMETHASONE DIPROPIONATE 4* Inhale 2 Puffs as instructed * DICLOFENAC SODIUM 75 MG TABLE* EPINEPHRINE 0.3 MG/0.3 ML INJ* METHOCARBAMOL 500 MG TABLET Take one tablet up to three t* ALBUTEROL SULFATE 2.5 MG/3 ML* Use 3 mL via nebulizer every * ALBUTEROL SULFATE HFA 90 MCG/* Inhale 2 Puffs as instructed * POLYMYXIN B SULFATE 10,000 UN* Use 2 Drops in the right eye * BENZONATATE 100 MG CAPSULE Take 1-2 capsules tid prn Patient not taking: Reported on 12/10/2017 Problem List As Of Date 12/10/2017 Noted Resolved ADD (Attention Deficit Disorder) [F98.8] INVALID FOR* Flat Feet [M21.41, M21.42] INVALID FOR* Skin tag [L91.8] INVALID FOR* Viral wart, unspecified [B07.9] INVALID FOR*07/21/2012 Multiple nevi [D22.9] INVALID FOR* Moderate persistent asthma without complication*INVALID FOR* Dysmenorrhea in the adolescent [N94.6] INVALID FOR* Abdominal pain [R10.9] INVALID FOR*01/10/2015 Nausea [R11.0] INVALID FOR*01/10/2015 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 Encounter Status:Closed by BERNICE BEASLEY PA-C on 12/10/17 EMERGENCY DEPARTMENT Observed: 11/02/2017 Status: F Source: [place] SUMMARY 7:22 AM [facility] REPOSITORY [facility] Medical Records Department [address] [place] [address] Emergency Department Summary 11/01/17 2316 MR#: [id number] Acct: [id number] Name: SCAR WHITE Rep #: [id number] : 1995 22 From: Megan Givens DO PCP: Crow Power MD Status: DEP ER - ER Visit Summary Date of Service: 11/01/17 Chief Complaint: [] Cough, dizziness History of Present Illness: The patient is a 22 F [] very morbidly obese weighing approximately 200 kg complaining of cough, dizziness, fever, sore throat, malaise. Presents with mother at the bedside. Patient reports she was seen at urgent care yesterday and evaluated and told to use albuterol inhaler. She then had a repeat visit today to the urgent care and underwent a rapid strep test which was negative. She was started on prednisone tablets and encouraged follow-up with her PCP. They present today with fever and dizziness. Patient denies headache or neck pain. She does report a past medical history of asthma, fructose intolerance, PCOS, cholecystectomy. Physical Examination: [] Tachycardic at 123. Febrile 101.1. BP 158/78. 22-year-old female in no acute distress. Very morbidly obese as previously indicated, weighing over 200 kg. HEENT reveals moist mucous membranes without any significant oropharyngeal erythema or exudates. There is no meningismus on neck exam. Cardiovascular exam is regular rate and rhythm. Lungs are clear to auscultation. Abdomen is soft and nontender. Test Results: [] Chest x-ray 2 views: Interpreted as negative by radiologist. Labs: Elevated white blood cell count 22.6. BMP, LFTs, urinalysis normal. UA: Negative. Emergency Department Course and Treatment: [] Patient given intravenous fluid bolus, intravenous Toradol for symptom relief and fever. The patient's white blood cell count may be elevated secondary to initiation of steroids in the previous day. However in light of her fever elevated white count and tachycardia I lean toward the side of treatment and provided her with intravenous Rocephin and oral azithromycin. Her chest x-ray was negative. She will be treated for bronchitis with a outpatient prescription for azithromycin for the next 4 days beginning tomorrow. Patient and patient's mother at the bedside are amenable to this plan and follow-up. Treatment Plan: [] Follow-up with PCP. Outpatient antibiotics. Disposition: [] Discharge, stable. Impression: [] Bronchitis This note was generated with Modera.coation software. It may contain incorrect words, spelling, and punctuation that were not noted in review of the chart prior to signing ED Disposition - Plan for ED Patient: Chief Complaint: General Illness Referrals: Crow Power MD [Primary Care Provider] - What to do if you have Problems For any increased pain, shortness of breath, bleeding, nausea or vomiting, chest pain, or any unexpected problems, contact your Primary Care Provider. Call [facility] ([phone]) or report to the closest Emergency Room. Call 911 if necessary. 11/02/17721 <Electronically signed by Megan Givens DO> Date Megan Givens DO Cosigner Signature (If Indicated): Date CC: Crow Power MD DISCHARGE INSTRUCTION Observed: 11/02/2017 Status: F Source: [place] 1:57 AM [facility] Medical Records Department [address] [place] [id number] Discharge Instruction 11/02/176 MR#: [id number] Acct: [id number] Name: SCAR WHITE Rep #: [id number] : 1995 From: Megan Givens DO PCP: Crow Power MD Status: REG ER ED Disposition - Plan for ED Patient: Disposition: Home or Assisted Living Chief Complaint: General Illness Instructions: Acute Bronchitis Prescriptions: Azithromycin 250 mg PO DAILY #4 tab Referrals: Crow Power MD [Primary Care Provider] - What to do if you have Problems For any increased pain, shortness of breath, bleeding, nausea or vomiting, chest pain, or any unexpected problems, contact your Primary Care Provider. Call [facility] ([phone]) or report to the closest Emergency Room. Call 911 if necessary. 11/02/17 0157 <Electronically signed by Megan Givens DO> Date Megan Givens DO Cosigner Signature (If Indicated): Date CC: Crow Power MD CBC W/DIFF, AUTOMATED Collected: 11/01/2017 Status: F Source: [place] 11:45 PM [facility] REPOSITORY TYPE CODE TESTS RESULT OUT OF RANGE REFERENCE UNITS LAB L100.1000 4.4-11.0 K/mm3 High WBC 22.6 LAB L100.1200 4.2-5.4 M/mm3 Normal RBC 4.75 LAB L100.1300 12.0-15.0 g/dl Low HGB 11.7 LAB L100.1400 37-47 % Normal HCT 37.0 LAB L100.1500 81-99 fL Low MCV 77.9 LAB L100.1600 27.0-32.0 pg Low MCH 24.6 LAB L100.1700 32-36 g/gl Low MCHC 31.6 LAB L100.1810 11.6-14.6 % High RDW CV 16.0 LAB L100.1820 35.1-43.9 fl High RDW SD 45.4 LAB L100.1900 150-450 K/mm3 Normal PLT 351 LAB L100.2000 6.2-12.0 fl Normal MPV 9.5 LAB L100.2100 47-70 % High NEUT% 86.1 LAB L100.2200 19-41 % Low LY% 7.8 LAB L100.2300 0-10 % Normal MONO% 5.6 LAB L100.2400 0-5 % Normal EO% 0.1 LAB L100.2500 0-1 % Normal BASO% 0.1 LAB L100.2550 0.0-0.9 % Normal IM GRAN % 0.300 Result Comment: IG% - Immature Granulocytes (promyelocytes, myelocytes and metamyelocytes) > 1% indicates that a LEFT SHIFT is Present. LAB L100.2620 2.0-7.7 X10 3/uL High Absolute Neut 19.5 LAB L100.2720 0.83-4.51 X10 3/ul Normal Absolute Lymph 1.77 Performed By: #### L100.0100 #### [facility] [place], [address] COMPREHENSIVE METABOLIC Collected: 11/01/2017 Status: F Source: [place] 11:45 PM [facility] REPOSITORY TYPE CODE TESTS RESULT OUT OF RANGE REFERENCE UNITS LAB L501.0100 74-106 mg/dL High GLU 248 Result Comment: Glucose result greater than or equal to 200 mg/dL suggests DIABETES MELLITUS per A.D.A. criteria. Please note revised GLUCOSE reference range effective 2017. LAB L501.1000 7-18 mg/dL Normal BUN 8 LAB L501.1100 0.55-1.02 mg/dL Normal CREAT,SERUM 0.72 Result Comment: The validity of the calculated GFR AND GFRAA in patients over 70 years has not been determined. Clinical correlation is essential. LAB L501.1110 >60 mL/min Normal EST GFR 110 Result Comment: Non- GFR Calc LAB L501.1115 >60 mL/min Normal EST GFR - AA 133 Result Comment: GFR Calc LAB L501.1255 ml/min Normal Estimated CRCL 125.73 LAB L501.1300 10-20 RATIO BUN/CRE Normal 11.1 LAB L501.1500 6.4-8. g/dL 2 T PROT Normal 7.9 LAB L501.1800 3.2-5. g/dL 0 ALB Normal 3.2 LAB L501.1950 2.2-4. g/dL High 2 GLOB 4.7 LAB L501.2000 0.9-2. RATIO Low 4 A/G 0.7 LAB L501.2200 8.5-10 mg/dL .1 CA Normal 8.8 LAB L501.4100 15-37 U/L High AST 38 LAB L501.4305 45-117 U/L ALK P Normal 83 LAB L501.4405 13-56 U/L High ALT 81 LAB L501.4600 0.20-1 mg/dL .00 T BILI Normal 0.40 LAB L501.5300 136-14 mmol/L 5 NA Normal 136 LAB L501.5600 3.5-5. mmol/L 1 K Normal 3.9 LAB L501.5900 98-107 mmol/L CL Normal 104 LAB L501.6100 21.0-3 mmol/L 2.0 CO2 Normal 25.0 LAB L501.6200 5-15 GAP Normal 7 Performed By: #### L500.4050 #### [facility] [address] [place], [address] URINALYSIS, ROUTINE Collected: 11/01/2017 Status: F Source: [place] (DIPSTICK) 11:35 PM [facility] REPOSITORY Order Comment: How was Urine Obtained? CLEAN CATCH TYPE CODE TESTS RESULT OUT OF RANGE REFERENCE UNITS LAB L400.3000 Yellow COLOR Normal Yellow LAB L400.3050 Clear Normal CLARITY Sl. Cloudy LAB L400.3200 Normal mg/dl High GLUCOSE, UR 1000 LAB L400.3300 Negative mg/dL Normal BILIRUBIN URINE Negative LAB L400.3400 Negative mg/dl Normal KETONE UR Negative LAB L400.3465 1.002-1.030 Normal SP.GR. DIPSTX 1.005 LAB L400.3550 5.0 - 8.0 pH UR Normal 7.0 LAB L400.3600 Negative mg/dl High PROT 30 DIPSTX LAB L400.3700 Normal mg/dl Normal UROBILI Normal LAB L400.3750 Negative Normal NITRITE UR Negative LAB L400.3780 Negative /ul High 50 OCCULT BLOOD-UR LAB L400.3800 Negative /ul High LEUK ESTERASE 500 Performed By: #### L400.2011 #### [facility] [address] [place], [address] CHEST PA AND LATERAL Observed: 11/01/2017 Status: F Source: [place] 11:10 PM [facility] REPOSITORY [facility] Imaging Services [address] [place] [address] Chest PA and Lateral MR#: [id number] Acct: [id number] Name: SCAR WHITE Rep #: [id number] : 1995 F 22 From: Boom Mahoney PCP: Crow Power MD Status: REG ER Study: Chest PA and Lateral Date of Exam: 11/01/17 Exam# [id number] Ordering Dr: Megan Givens DO STUDY: X-RAY CHEST REASON FOR EXAM: Female, 22 years old. Cough, weakness. TECHNIQUE: PA and lateral chest. COMPARISON: July 02, 2015. FINDINGS: The lungs are clear and expanded. There is no demonstrated pleural abnormality. Normal size heart. Normal mediastinum and ana cristina. Normal visualized pulmonary arteries. Normal visualized aortic arch and descending thoracic aorta. Normal visualized thoracic spine. Normal visualized ribs, clavicles, and shoulders. There is no demonstrated abnormality of the visualized soft tissue structures of the upper abdomen. RAD/Chest PA and Lateral IMPRESSION: Normal x-ray examination of the chest. Electronically Signed: Boom Mahoney MD at 1:28 EDT , Service support , CC: Megan Givens DO; Crow Power MD Plastics Tooling Engineer: Signed GROUP A STREP BY Collected: 11/01/2017 Status: F Source: [place] PCR 8:46 AM [facility] REPOSITORY TYPE CODE TESTS RESULT OUT OF RANGE REFERENCE UNITS LAB GASSRC Throat Swab GAS Specimen Source LAB PCRGAS Positive for Abnormal Group A Strep Group A Alert PCR Streptococcus by PCR. Result Comment: This test was developed and its performance characteristics determined by [facility]'s Chintan Palma [facility] [place] ([facility]). It has not been cleared or approved by the FDA. [facility] is regulated under CLIA as qualified to perform high-complexity testing. This test is used for clinical purposes. It should not be regarded as inv estigational or for research. Performed By: #### GASPCR #### [facility] [address] [place], [place] [address] PROGRESS Observed: 11/01/2017 Status: COMPLETED Source: [place] 8:39 AM [facility] REPOSITORY HNO ID: [id number] Author: Pily Casiano Service: (none) Author Type: Nurse Practitioner Type: Progress Notes Filed: 11/01/2017 9:19 AM Note Text: Subjective The history is provided by the patient. No director speech language was used. Sore Throat Associated symptoms include coughing. Pertinent negatives include no congestion, ear pain, headaches or shortness of breath. Cough Associated symptoms include sore throat. Pertinent negatives include no chest pain, no chills, no ear pain, no headaches, no myalgias, no shortness of breath and no wheezing. ANGEL White is a 22 year old female who presents today for CC of sore throat This started yesterday. She is also having a cough Symptoms are worsened by swallowing. 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 ALLERGIES Allergen Reactions - Augmentin [Amoxicil* Diarrhea - Bentyl [Dicyclomine* Vomiting - Celery Other: See Comments Throat AND tongue numbness - Dimetapp [Brompheni* - Fructose Other: See Comments Abdominal pain, gassiness, diarrhea - Penicillins Rash ACTIVE PROBLEM LIST Add (Attention Deficit Disorder) Flat Feet Skin Tag Multiple Nevi Moderate Persistent Asthma Without Complication Dysmenorrhea in The Adolescent Obesity Peds (Bmi >=95 Percentile) Fructose Intolerance Depression Sciatica Anxiety Pcos (Polycystic Ovarian Syndrome) Family History Problem Relation Age of Onset - Hypertension Paternal Grandmother - Heart Paternal Grandmother murmur - Glaucome,catarcts [OTHER] Paternal Grandmother - rare skin disease [OTHER] Paternal Grandmother - kidney stones [OTHER] Paternal Grandmother both kidneys removed - Breast Cancer Maternal Grandmother thyroid - Asthma Mother - Diabetes Father - Hypertension Father - Hypertension Maternal Grandfather polycystic kidneys,diverticulitis - Diabetes Maternal Grandfather Social History Marital status: Single Spouse name: Years of education: Number of children: Social History Main Topics Smoking status: Never Smoker Smokeless tobacco: Never Used Alcohol use: No Drug use: No Sexual activity: No 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 Review of Systems Constitutional: Negative. Negative for chills, fever and malaise/fatigue. HENT: Positive for sore throat. Negative for congestion, ear pain and sinus pain. Respiratory: Positive for cough. Negative for sputum production, shortness of breath and wheezing. Cardiovascular: Negative for chest pain. Musculoskeletal: Negative for myalgias. Skin: Negative for rash. Neurological: Negative for headaches. Objective Physical Exam Constitutional: She is well-developed, well-nourished, and in no distress. HENT: Head: Normocephalic and atraumatic. Right Ear: Tympanic membrane, external ear and ear canal normal. Tympanic membrane is not injected, not erythematous, not retracted and not bulging. No middle ear effusion. Left Ear: Tympanic membrane, external ear and ear canal normal. Tympanic membrane is not injected, not erythematous, not retracted and not bulging. No middle ear effusion. Nose: Mucosal edema and rhinorrhea present. Right sinus exhibits no maxillary sinus tenderness and no frontal sinus tenderness. Left sinus exhibits no maxillary sinus tenderness and no frontal sinus tenderness. Mouth/Throat: Uvula is midline and mucous membranes are normal. Posterior oropharyngeal erythema (mild) present. No oropharyngeal exudate, posterior oropharyngeal edema or tonsillar abscesses. Eyes: Conjunctivae and EOM are normal. Pupils are equal, round, and reactive to light. Neck: Normal range of motion. Cardiovascular: Normal rate, regular rhythm and normal heart sounds. Pulmonary/Chest: Effort normal. No respiratory distress. She has no decreased breath sounds. She has wheezes (scattered). She has no rhonchi. She has no rales. Lymphadenopathy: Head (right side): No submental, no submandibular, no tonsillar, no preauricular and no posterior auricular adenopathy present. Head (left side): No submental, no submandibular, no tonsillar, no preauricular and no posterior auricular adenopathy present. She has cervical adenopathy. Right cervical: No superficial cervical and no posterior cervical adenopathy present. Left cervical: Superficial cervical adenopathy present. No posterior cervical adenopathy present. Right: No supraclavicular adenopathy present. Left: No supraclavicular adenopathy present. Skin: Skin is warm and dry. Psychiatric: Affect normal. Nursing note and vitals reviewed. ASSESSMENT/PLAN: 1. Sore throat - ICD9: 462, ICD10: J02.9 (primary diagnosis) - suspect strep - Rapid Strep negative in the office today - overnight throat culture pending, Only call if Strep culture is positive. - Discussed supportive care treatment with fluids, rest and analgesia. - The patient may also use warm salt water gargles, throat lozenges and/or OTC throat spray as needed. - The patient should follow up in one week if symptoms persist or worsen - Call back if drooling, increased temperature, symptoms of dehydration and/or still sick in one week - RAPID STREP TEST B/O - GROUP A STREPTOCOCCUS BY PCR 2. Wheezing - ICD9: 786.07, ICD10: R06.2 - Discussed use of Prednisone 5 day course and albuterol inhaler as needed for cough, wheeze, shortness of breath * Prednisone 40 mg (2 tablets) per day for 5 days, take in morning or early in day * Do not NSAIDs during this 5 day course (ibuprofen, naproxen, Motrin, Aleve, Advil) Tylenol only during prednisone use * Follow up with primary care provider if no improvement with treatment * Seek medical care immediately, call 911, go to ER if you have chest pain, difficulty breathing, shortness of breath, inability to swallow. - PREDNISONE 20 MG TABLET 3. Mild intermittent asthma with acute exacerbation - ICD9: 493.92, ICD10: J45.21 Prednisone burst Tessalon Perles as prescribed for coughing, do not combine this with other cough and cold medications - PREDNISONE 20 MG TABLET - BENZONATATE 100 MG CAPSULE Diagnosis and treatment plan were discussed and questions were answered to the patient's satisfaction. Pt acknowledged understanding of concepts and follow up plan. Specific signs and symptoms that would indicate the need for higher level of care were discussed in detail warranting prompt ER evaluation. Pily Casiano APRN.DIANE CNOV Observed: 11/01/2017 Status: COMPLETED Source: [place] 8:30 AM [facility] REPOSITORY Office Visit (WSTR) SCAR WHITE ([id number]) 1995 F Date Time Provider Department 11/01/17 8:30 AM PILY CASIANO (DAINE) WSTR During your visit today, we recorded the following information about you: Temperature Pulse Respiration Blood pressure 98 degrees 79/minute 18/minute 130/80 Weight 198.2 kg Pily CasianoSHI 11/01/2017 9:19 AM Signed Subjective The history is provided by the patient. No director speech language was used. Sore Throat Associated symptoms include coughing. Pertinent negatives include no congestion, ear pain, headaches or shortness of breath. Cough Associated symptoms include sore throat. Pertinent negatives include no chest pain, no chills, no ear pain, no headaches, no myalgias, no shortness of breath and no wheezing. HPI Scar White is a 22 year old female who presents today for CC of sore throat This started yesterday. She is also having a cough Symptoms are worsened by swallowing. 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 ALLERGIES Allergen Reactions - Augmentin [Amoxicil* Diarrhea - Bentyl [Dicyclomine* Vomiting - Celery Other: See Comments Throat AND tongue numbness - Dimetapp [Brompheni* - Fructose Other: See Comments Abdominal pain, gassiness, diarrhea - Penicillins Rash ACTIVE PROBLEM LIST Add (Attention Deficit Disorder) Flat Feet Skin Tag Multiple Nevi Moderate Persistent Asthma Without Complication Dysmenorrhea in The Adolescent Obesity Peds (Bmi >=95 Percentile) Fructose Intolerance Depression Sciatica Anxiety Pcos (Polycystic Ovarian Syndrome) Family History Problem Relation Age of Onset - Hypertension Paternal Grandmother - Heart Paternal Grandmother murmur - Glaucome,catarcts [OTHER] Paternal Grandmother - rare skin disease [OTHER] Paternal Grandmother - kidney stones [OTHER] Paternal Grandmother both kidneys removed - Breast Cancer Maternal Grandmother thyroid - Asthma Mother - Diabetes Father - Hypertension Father - Hypertension Maternal Grandfather polycystic kidneys,diverticulitis - Diabetes Maternal Grandfather Social History Marital status: Single Spouse name: Years of education: Number of children: Social History Main Topics Smoking status: Never Smoker Smokeless tobacco: Never Used Alcohol use: No Drug use: No Sexual activity: No 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 Review of Systems Constitutional: Negative. Negative for chills, fever and malaise/fatigue. HENT: Positive for sore throat. Negative for congestion, ear pain and sinus pain. Respiratory: Positive for cough. Negative for sputum production, shortness of breath and wheezing. Cardiovascular: Negative for chest pain. Musculoskeletal: Negative for myalgias. Skin: Negative for rash. Neurological: Negative for headaches. Objective Physical Exam Constitutional: She is well-developed, well-nourished, and in no distress. HENT: Head: Normocephalic and atraumatic. Right Ear: Tympanic membrane, external ear and ear canal normal. Tympanic membrane is not injected, not erythematous, not retracted and not bulging. No middle ear effusion. Left Ear: Tympanic membrane, external ear and ear canal normal. Tympanic membrane is not injected, not erythematous, not retracted and not bulging. No middle ear effusion. Nose: Mucosal edema and rhinorrhea present. Right sinus exhibits no maxillary sinus tenderness and no frontal sinus tenderness. Left sinus exhibits no maxillary sinus tenderness and no frontal sinus tenderness. Mouth/Throat: Uvula is midline and mucous membranes are normal. Posterior oropharyngeal erythema (mild) present. No oropharyngeal exudate, posterior oropharyngeal edema or tonsillar abscesses. Eyes: Conjunctivae and EOM are normal. Pupils are equal, round, and reactive to light. Neck: Normal range of motion. Cardiovascular: Normal rate, regular rhythm and normal heart sounds. Pulmonary/Chest: Effort normal. No respiratory distress. She has no decreased breath sounds. She has wheezes (scattered). She has no rhonchi. She has no rales. Lymphadenopathy: Head (right side): No submental, no submandibular, no tonsillar, no preauricular and no posterior auricular adenopathy present. Head (left side): No submental, no submandibular, no tonsillar, no preauricular and no posterior auricular adenopathy present. She has cervical adenopathy. Right cervical: No superficial cervical and no posterior cervical adenopathy present. Left cervical: Superficial cervical adenopathy present. No posterior cervical adenopathy present. Right: No supraclavicular adenopathy present. Left: No supraclavicular adenopathy present. Skin: Skin is warm and dry. Psychiatric: Affect normal. Nursing note and vitals reviewed. ASSESSMENT/PLAN: 1. Sore throat - ICD9: 462, ICD10: J02.9 (primary diagnosis) - suspect strep - Rapid Strep negative in the office today - overnight throat culture pending, Only call if Strep culture is positive. - Discussed supportive care treatment with fluids, rest and analgesia. - The patient may also use warm salt water gargles, throat lozenges and/or OTC throat spray as needed. - The patient should follow up in one week if symptoms persist or worsen - Call back if drooling, increased temperature, symptoms of dehydration and/or still sick in one week - RAPID STREP TEST B/O - GROUP A STREPTOCOCCUS BY PCR 2. Wheezing - ICD9: 786.07, ICD10: R06.2 - Discussed use of Prednisone 5 day course and albuterol inhaler as needed for cough, wheeze, shortness of breath * Prednisone 40 mg (2 tablets) per day for 5 days, take in morning or early in day * Do not NSAIDs during this 5 day course (ibuprofen, naproxen, Motrin, Aleve, Advil) Tylenol only during prednisone use * Follow up with primary care provider if no improvement with treatment * Seek medical care immediately, call 911, go to ER if you have chest pain, difficulty breathing, shortness of breath, inability to swallow. - PREDNISONE 20 MG TABLET 3. Mild intermittent asthma with acute exacerbation - ICD9: 493.92, ICD10: J45.21 Prednisone burst Tessalon Perles as prescribed for coughing, do not combine this with other cough and cold medications - PREDNISONE 20 MG TABLET - BENZONATATE 100 MG CAPSULE Diagnosis and treatment plan were discussed and questions were answered to the patient's satisfaction. Pt acknowledged understanding of concepts and follow up plan. Specific signs and symptoms that would indicate the need for higher level of care were discussed in detail warranting prompt ER evaluation. SHI Johnson APRN.CNP 11/01/2017 8:49 AM Signed ASSESSMENT/PLAN: 1. Sore throat - ICD9: 462, ICD10: J02.9 (primary diagnosis) - suspect strep - Rapid Strep negative in the office today - overnight throat culture pending, Only call if Strep culture is positive. - Discussed supportive care treatment with fluids, rest and analgesia. - The patient may also use warm salt water gargles, throat lozenges and/or OTC throat spray as needed. - The patient should follow up in one week if symptoms persist or worsen - Call back if drooling, increased temperature, symptoms of dehydration and/or still sick in one week - RAPID STREP TEST B/O - GROUP A STREPTOCOCCUS BY PCR 2. Wheezing - ICD9: 786.07, ICD10: R06.2 - Discussed use of Prednisone 5 day course and albuterol inhaler as needed for cough, wheeze, shortness of breath * Prednisone 40 mg (2 tablets) per day for 5 days, take in morning or early in day * Do not NSAIDs during this 5 day course (ibuprofen, naproxen, Motrin, Aleve, Advil) Tylenol only during prednisone use * Follow up with primary care provider if no improvement with treatment * Seek medical care immediately, call 911, go to ER if you have chest pain, difficulty breathing, shortness of breath, inability to swallow. - PREDNISONE 20 MG TABLET 3. Mild intermittent asthma with acute exacerbation - ICD9: 493.92, ICD10: J45.21 Prednisone burst Tessalon Perles as prescribed for coughing, do not combine this with other cough and cold medications - PREDNISONE 20 MG TABLET - BENZONATATE 100 MG CAPSULE Referring Provider: SELF [200] Allergies As of Date: 11/01/2017 Noted Allergy Reaction AUGMENTIN (AMOXICILLIN-POT CLAVUL*12/15/2012 6 - Diarrhea BENTYL (DICYCLOMINE HCL) 07/19/2013 11 - Vomiting CELERY 04/23/2016 14 - Other: See Comments Comments: Throat AND tongue numbness DIMETAPP (BROMPHENIRAMINE-PSEUDOE*05/17/2005 FRUCTOSE 01/17/2014 14 - Other: See Comments Comments: Abdominal pain, gassiness, diarrhea PENICILLINS 09/05/2011 2 - Rash Date Reviewed: 11/01/2017 Reviewed by: Jaelyn Julian Ma - Fully Assessed Reason for Visit: Sore Throat [200] Cough [28] Primary Visit Diagnosis:Sore throat [J02.9] Other Visit Diagnoses:Wheezing [R06.2] Mild intermittent asthma with acute exacerbation [J45.21] Order(s):RAPID STREP TEST B/O [0807630] Order #: [id number] GROUP A STREPTOCOCCUS BY PCR [SQGASPCR] Order #: [id number] predniSONE (DELTASONE) 20 mg tabletTake 2 tablets by mouth once daily for 5 days.Disp: 10 tabletRfl: 0 benzonatate (TESSALON PERLE) 100 mg capsuleTake 1- 2 capsules tid prnDisp: 30 capsuleRfl: 0 Prescriptions as of 11/01/2017 Sig: PREDNISONE 20 MG TABLET Take 2 tablets by mouth once * BENZONATATE 100 MG CAPSULE Take 1-2 capsules tid prn SERTRALINE 100 MG TABLET Take 1 tablet by mouth once d* SPRINTEC (28) ORAL Take by mouth. BECLOMETHASONE DIPROPIONATE 4* Inhale 2 Puffs as instructed * DICLOFENAC SODIUM 75 MG TABLE* EPINEPHRINE 0.3 MG/0.3 ML INJ* METHOCARBAMOL 500 MG TABLET Take one tablet up to three t* ALBUTEROL SULFATE 2.5 MG/3 ML* Use 3 mL via nebulizer every * ALBUTEROL SULFATE HFA 90 MCG/* Inhale 2 Puffs as instructed * Problem List As Of Date 11/01/2017 Noted Resolved ADD (Attention Deficit Disorder) [F98.8] INVALID FOR* Flat Feet [M21.41, M21.42] INVALID FOR* Skin tag [L91.8] INVALID FOR* Viral wart, unspecified [B07.9] INVALID FOR*07/21/2012 Multiple nevi [D22.9] INVALID FOR* Moderate persistent asthma without complication*INVALID FOR* Dysmenorrhea in the adolescent [N94.6] INVALID FOR* Abdominal pain [R10.9] INVALID FOR*01/10/2015 Nausea [R11.0] INVALID FOR*01/10/2015 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 Sore throat - ICD9: 462, ICD10: J02.9 (primary diagnosis) - suspect strep - Rapid Strep negative in the office today - overnight throat culture pending, Only call if Strep culture is positive. - Discussed supportive care treatment with fluids, rest and analgesia. - The patient may also use warm salt water gargles, throat lozenges and/or OTC throat spray as needed. - The patient should follow up in one week if symptoms persist or worsen - Call back if drooling, increased temperature, symptoms of dehydration and/or still sick in one week - RAPID STREP TEST B/O - GROUP A STREPTOCOCCUS BY PCR 2. Wheezing - ICD9: 786.07, ICD10: R06.2 - Discussed use of Prednisone 5 day course and albuterol inhaler as needed for cough, wheeze, shortness of breath * Prednisone 40 mg (2 tablets) per day for 5 days, take in morning or early in day * Do not NSAIDs during this 5 day course (ibuprofen, naproxen, Motrin, Aleve, Advil) Tylenol only during prednisone use * Follow up with primary care provider if no improvement with treatment * Seek medical care immediately, call 911, go to ER if you have chest pain, difficulty breathing, shortness of breath, inability to swallow. - PREDNISONE 20 MG TABLET 3. Mild intermittent asthma with acute exacerbation - ICD9: 493.92, ICD10: J45.21 Prednisone burst Tessalon Perles as prescribed for coughing, do not combine this with other cough and cold medications - PREDNISONE 20 MG TABLET - BENZONATATE 100 MG CAPSULE Prescriptions ordered this encounter Disp Refills Start End PREDNISONE 20 MG TABLET 10 t* 0 11/01/2017 11/06/2017 Route: ORAL Sig: Take 2 tablets by mouth once daily for 5 days. BENZONATATE 100 MG CAPSULE 30 c* 0 11/01/2017 Sig: Take 1-2 capsules tid prn Medications Discontinued During This Encounter Nwjjaigidfdclga-Boftyolij-UF (BROMFE* 118 * 0 09/13/2017 11/01/2017 Route: ORAL Sig: Take 5 mL by mouth four times daily as needed. Patient not taking: Reported on 10/12/2017 Disc: Course of therapy completed Encounter Status:Closed by PILY CASIANO CNP on 11/01/17 JOSIE Observed: 10/12/2017 Status: COMPLETED Source: [place] 6:30 PM [facility] REPOSIT[facility] Office Visit ([facility]STR) SCAR WHITE ([id number]) 1995 F Date Time Provider Department 10/12/17 6:30 PM PILY CASIANO ([facility]) [facility] During your visit today, we recorded the following information about you: Temperature Pulse Respiration Blood pressure 99 degrees 82/minute 18/minute 138/74 Weight 197.3 kg Pily Casiano (Diane) 10/12/2017 6:44 PM Signed Subjective The history is provided by the patient. No director speech language was used. Diarrhea Associated symptoms include abdominal pain and vomiting (every day, x 3-4 times a day). Pertinent negatives include no chills and no headaches. ANGEL White is a 22 year old female who presents today for CC of diarrhea, vomiting and body aches. This started 3 days ago. She denies any blood in stool or vomit She is also having fever as high as 102. Symptoms are worsened by nothing She has tried tylenol and ibuprofen Risk factors father, mother ill PMH cholecystectomy, ovarian cyst removal BP 138/74 Pulse 82 Temp 37.2 ?C (99 ?F) (Tympanic) Resp 18 Wt (!) 197.3 kg (435 lb) BMI 64.80 kg/m? ALLERGIES Allergen Reactions - Augmentin [Amoxicil* Diarrhea - Bentyl [Dicyclomine* Vomiting - Celery Other: See Comments Throat AND tongue numbness - Dimetapp [Brompheni* - Fructose Other: See Comments Abdominal pain, gassiness, diarrhea - Penicillins Rash ACTIVE PROBLEM LIST Add (Attention Deficit Disorder) Flat Feet Skin Tag Multiple Nevi Moderate Persistent Asthma Without Complication Dysmenorrhea in The Adolescent Obesity Peds (Bmi >=95 Percentile) Fructose Intolerance Depression Sciatica Anxiety Pcos (Polycystic Ovarian Syndrome) Family History Problem Relation Age of Onset - Hypertension Paternal Grandmother - Heart Paternal Grandmother murmur - Glaucome,catarcts [OTHER] Paternal Grandmother - rare skin disease [OTHER] Paternal Grandmother - kidney stones [OTHER] Paternal Grandmother both kidneys removed - Breast Cancer Maternal Grandmother thyroid - Asthma Mother - Diabetes Father - Hypertension Father - Hypertension Maternal Grandfather polycystic kidneys,diverticulitis - Diabetes Maternal Grandfather Social History Marital status: Single Spouse name: Years of education: Number of children: Social History Main Topics Smoking status: Never Smoker Smokeless tobacco: Never Used Alcohol use: No Drug use: No Sexual activity: No 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 Review of Systems Constitutional: Negative for chills, fever and malaise/fatigue. Gastrointestinal: Positive for abdominal pain, diarrhea (x 3 days, approx 10 x/day) and vomiting (every day, x 3-4 times a day). Negative for constipation. Genitourinary: Negative for dysuria, flank pain, frequency, hematuria and urgency. Skin: Negative for rash. Neurological: Negative for headaches. Objective Physical Exam Constitutional: She is oriented to person, place, and time and well-developed, well-nourished, and in no distress. HENT: Head: Normocephalic and atraumatic. Moist mucous membranes Eyes: Conjunctivae and EOM are normal. Pupils are equal, round, and reactive to light. Neck: Normal range of motion. Neck supple. Pulmonary/Chest: Effort normal. Abdominal: Soft. She exhibits no abdominal bruit, no pulsatile midline mass and no mass. Bowel sounds are hyperactive. There is no hepatosplenomegaly. There is generalized tenderness (mild). There is no rigidity, no rebound, no guarding and no CVA tenderness. Morbid obesity Neurological: She is alert and oriented to person, place, and time. Skin: Skin is warm. Psychiatric: Affect normal. Nursing note and vitals reviewed. ASSESSMENT/PLAN: 1. Vomiting and diarrhea - ICD9: 787.03, 787.91, ICD10: R11.10, R19.7 Drink small sips of clear fluids to begin with. Advance to other liquids as tolerated. If tolerating liquids for several hours without vomiting, then you can try bland foods such as toast, crackers, etc. Advance to full diet when nausea/vomiting has completely resolved but avoid greasy, fatty, spicy foods for next several days. Attempt to get 8-10 oz in every 2 hours, small amounts at a time Make sure urinating twice in 8 hours, light - yellow in color, if decreased amount or dark in color to ER for hydration. To ER for worsening symptoms, increased pain, fevers, vomiting, decreased urine output, blood in her urine blood in her stools or dark tarry stools. Diagnosis and treatment plan were discussed and questions were answered to the patient's satisfaction. Pt acknowledged understanding of concepts and follow up plan. Specific signs and symptoms that would indicate the need for higher level of care were discussed in detail warranting prompt ER evaluation. Pily Casiano APRN.Pily Mercado ([facility]) 10/12/2017 6:39 PM Signed ASSESSMENT/PLAN: 1. Vomiting and diarrhea - ICD9: 787.03, 787.91, ICD10: R11.10, R19.7 Drink small sips of clear fluids to begin with. Advance to other liquids as tolerated. If tolerating liquids for several hours without vomiting, then you can try bland foods such as toast, crackers, etc. Advance to full diet when nausea/vomiting has completely resolved but avoid greasy, fatty, spicy foods for next several days. Attempt to get 8-10 oz in every 2 hours, small amounts at a time Make sure urinating twice in 8 hours, light - yellow in color, if decreased amount or dark in color to ER for hydration. To ER for worsening symptoms, increased pain, fevers, vomiting, decreased urine output, blood in her urine blood in her stools or dark tarry stools. Referring Provider: SELF [[id number]] Allergies As of Date: 10/12/2017 Noted Allergy Reaction AUGMENTIN (AMOXICILLIN-POT CLAVUL*12/15/2012 6 - Diarrhea BENTYL (DICYCLOMINE HCL) 07/19/2013 11 - Vomiting CELERY 04/23/2016 14 - Other: See Comments Comments: Throat AND tongue numbness DIMETAPP (BROMPHENIRAMINE-PSEUDOE*05/17/2005 FRUCTOSE 01/17/2014 14 - Other: See Comments Comments: Abdominal pain, gassiness, diarrhea PENICILLINS 09/05/2011 2 - Rash Date Reviewed: 10/12/2017 Reviewed by: Pily Casiano ([facility]) - Fully Assessed Reason for Visit: Diarrhea [35] Cmt: vomiting, bodyaches and fever x 3 days Primary Visit Diagnosis:Vomiting and diarrhea [R11.10, R19.7] Order(s):ondansetron orally disintegrating (ZOFRAN ODT) 8 mg disintegrating tabletTake 1 tablet by mouth every 12 hours as needed for up to 4 days.Disp: 8 tabletRfl: 0 Prescriptions as of 10/12/2017 Sig: SERTRALINE 100 MG TABLET Take 1 tablet by mouth once d* SPRINTEC (28) ORAL Take by mouth. BECLOMETHASONE DIPROPIONATE 4* Inhale 2 Puffs as instructed * DICLOFENAC SODIUM 75 MG TABLE* EPINEPHRINE 0.3 MG/0.3 ML INJ* METHOCARBAMOL 500 MG TABLET Take one tablet up to three t* ALBUTEROL SULFATE 2.5 MG/3 ML* Use 3 mL via nebulizer every * ALBUTEROL SULFATE HFA 90 MCG/* Inhale 2 Puffs as instructed * ONDANSETRON 8 MG DISINTEGRATI* Take 1 tablet by mouth every * BROMPHENIRAMINE-PSEUDOEPHEDRI* Take 5 mL by mouth four times* Patient not taking: Reported on 10/12/2017 Problem List As Of Date 10/12/2017 Noted Resolved ADD (Attention Deficit Disorder) [F98.8] INVALID FOR* Flat Feet [M21.41, M21.42] INVALID FOR* Skin tag [L91.8] INVALID FOR* Viral wart, unspecified [B07.9] INVALID FOR*07/21/2012 Multiple nevi [D22.9] INVALID FOR* Moderate persistent asthma without complication*INVALID FOR* Dysmenorrhea in the adolescent [N94.6] INVALID FOR* Abdominal pain [R10.9] INVALID FOR*01/10/2015 Nausea [R11.0] INVALID FOR*01/10/2015 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 Vomiting and diarrhea - ICD9: 787.03, 787.91, ICD10: R11.10, R19.7 Drink small sips of clear fluids to begin with. Advance to other liquids as tolerated. If tolerating liquids for several hours without vomiting, then you can try bland foods such as toast, crackers, etc. Advance to full diet when nausea/vomiting has completely resolved but avoid greasy, fatty, spicy foods for next several days. Attempt to get 8-10 oz in every 2 hours, small amounts at a time Make sure urinating twice in 8 hours, light - yellow in color, if decreased amount or dark in color to ER for hydration. To ER for worsening symptoms, increased pain, fevers, vomiting, decreased urine output, blood in her urine blood in her stools or dark tarry stools. Prescriptions ordered this encounter Disp Refills Start End ONDANSETRON 8 MG DISINTEGRATING TABL* 8 ta* 0 10/12/2017 10/16/2017 Route: ORAL Sig: Take 1 tablet by mouth every 12 hours as needed for up to 4 days. Letter Text Pily Casiano APRN.CNP Urgent Care [address] [id number] Dept: [phone] 10/12/2017 Scar White [address] [facility] [address] To Whom it May Concern: This is to certify that Scar White was seen at our office for medical care. Scar may return to work when fever is less than 100 for 24 hours. If you have any questions please feel free to call. Sincerely: Pily Casiano APRN.CNP Encounter Status:Closed by PILY CASIANO CNP on 10/12/17 PROGRESS Observed: 10/12/2017 Status: COMPLETED Source: [place] 6:27 PM [facility] REPOSITORY HNO ID: [id number] Author: Pily Casiano (Diane) Service: (none) Author Type: Nurse Practitioner Type: Progress Notes Filed: 10/12/2017 6:44 PM Note Text: Subjective The history is provided by the patient. No director speech language was used. Diarrhea Associated symptoms include abdominal pain and vomiting (every day, x 3-4 times a day). Pertinent negatives include no chills and no headaches. HPI Scar White is a 22 year old female who presents today for CC of diarrhea, vomiting and body aches. This started 3 days ago. She denies any blood in stool or vomit She is also having fever as high as 102. Symptoms are worsened by nothing She has tried tylenol and ibuprofen Risk factors father, mother ill PMH cholecystectomy, ovarian cyst removal BP 138/74 Pulse 82 Temp 37.2 ?C (99 ?F) (Tympanic) Resp 18 Wt (!) 197.3 kg (435 lb) BMI 64.80 kg/m? ALLERGIES Allergen Reactions - Augmentin [Amoxicil* Diarrhea - Bentyl [Dicyclomine* Vomiting - Celery Other: See Comments Throat AND tongue numbness - Dimetapp [Brompheni* - Fructose Other: See Comments Abdominal pain, gassiness, diarrhea - Penicillins Rash ACTIVE PROBLEM LIST Add (Attention Deficit Disorder) Flat Feet Skin Tag Multiple Nevi Moderate Persistent Asthma Without Complication Dysmenorrhea in The Adolescent Obesity Peds (Bmi >=95 Percentile) Fructose Intolerance Depression Sciatica Anxiety Pcos (Polycystic Ovarian Syndrome) Family History Problem Relation Age of Onset - Hypertension Paternal Grandmother - Heart Paternal Grandmother murmur - Glaucome,catarcts [OTHER] Paternal Grandmother - rare skin disease [OTHER] Paternal Grandmother - kidney stones [OTHER] Paternal Grandmother both kidneys removed - Breast Cancer Maternal Grandmother thyroid - Asthma Mother - Diabetes Father - Hypertension Father - Hypertension Maternal Grandfather polycystic kidneys,diverticulitis - Diabetes Maternal Grandfather Social History Marital status: Single Spouse name: Years of education: Number of children: Social History Main Topics Smoking status: Never Smoker Smokeless tobacco: Never Used Alcohol use: No Drug use: No Sexual activity: No 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 Review of Systems Constitutional: Negative for chills, fever and malaise/fatigue. Gastrointestinal: Positive for abdominal pain, diarrhea (x 3 days, approx 10 x/day) and vomiting (every day, x 3-4 times a day). Negative for constipation. Genitourinary: Negative for dysuria, flank pain, frequency, hematuria and urgency. Skin: Negative for rash. Neurological: Negative for headaches. Objective Physical Exam Constitutional: She is oriented to person, place, and time and well-developed, well-nourished, and in no distress. HENT: Head: Normocephalic and atraumatic. Moist mucous membranes Eyes: Conjunctivae and EOM are normal. Pupils are equal, round, and reactive to light. Neck: Normal range of motion. Neck supple. Pulmonary/Chest: Effort normal. Abdominal: Soft. She exhibits no abdominal bruit, no pulsatile midline mass and no mass. Bowel sounds are hyperactive. There is no hepatosplenomegaly. There is generalized tenderness (mild). There is no rigidity, no rebound, no guarding and no CVA tenderness. Morbid obesity Neurological: She is alert and oriented to person, place, and time. Skin: Skin is warm. Psychiatric: Affect normal. Nursing note and vitals reviewed. ASSESSMENT/PLAN: 1. Vomiting and diarrhea - ICD9: 787.03, 787.91, ICD10: R11.10, R19.7 Drink small sips of clear fluids to begin with. Advance to other liquids as tolerated. If tolerating liquids for several hours without vomiting, then you can try bland foods such as toast, crackers, etc. Advance to full diet when nausea/vomiting has completely resolved but avoid greasy, fatty, spicy foods for next several days. Attempt to get 8-10 oz in every 2 hours, small amounts at a time Make sure urinating twice in 8 hours, light - yellow in color, if decreased amount or dark in color to ER for hydration. To ER for worsening symptoms, increased pain, fevers, vomiting, decreased urine output, blood in her urine blood in her stools or dark tarry stools. Diagnosis and treatment plan were discussed and questions were answered to the patient's satisfaction. Pt acknowledged understanding of concepts and follow up plan. Specific signs and symptoms that would indicate the need for higher level of care were discussed in detail warranting prompt ER evaluation. Pily Casiano APRN.DIANE PROGRESS Observed: 09/13/2017 Status: COMPLETED Source: [place] 10:10 AM [facility] REPOSITORY HNO ID: [id number] Author: Criss (Diane) Harlan Service: (none) Author Type: Nurse Practitioner Type: Progress Notes Filed: 09/13/2017 10:28 AM Note Text: Subjective HPI Scar White is a 22 year old female who presents with cough, congestion, sinus pain and pressure for the last 7-10 days. She has taken mucinex at home without relief and ibuprofen for headache. Review of Systems Constitutional: Positive for chills and fever (reported 100.5 at home). HENT: Positive for congestion, ear pain, sinus pain and sore throat. Respiratory: Positive for cough. Negative for sputum production and shortness of breath. Cardiovascular: Negative. Negative for chest pain. Gastrointestinal: Negative. Negative for abdominal pain, diarrhea, nausea and vomiting. Musculoskeletal: Negative. Negative for myalgias. Skin: Negative. Neurological: Positive for dizziness and headaches. BP 121/88 Pulse 84 Temp 36.7 ?C (98.1 ?F) (Tympanic) Resp 18 Wt (!) 198.7 kg (438 lb) SpO2 96% BMI 65.25 kg/m2 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 - Sciatica 10/18/2014 - Skin tag 03/28/2011 PAST SURGICAL HISTORY Procedure Laterality Date - EGD 04/05/13 Mild Gastritis - LAPAROSCOPIC CHOLEYCYSTECTOMY 12/28/13 - OVARIAN CYSTECTOMY 07/08/2017 - REMOVE TONSILS/ADENOIDS,<12 Y/O < 6 yrs ALLERGIES Augmentin [Amoxicillin-Pot Clavulanate]; Bentyl [Dicyclomine Hcl]; Celery; Dimetapp [Brompheniramine-Pseudoephedrin]; Fructose; Penicillins MEDICATIONS sertraline (ZOLOFT) 50 mg tablet Take 1 tablet by mouth once daily. NORGESTIMATE-ETHINYL ESTRADIOL (SPRINTEC, 28, ORAL) Take by mouth. beclomethasone (QVAR) 40 mcg/actuation inhaler Inhale 2 Puffs as instructed twice daily. diclofenac, EC, (VOLTAREN) 75 mg EC tablet EPINEPHrine (EPIPEN) 0.3 mg/0.3 mL auto-injector methocarbamol (ROBAXIN) 500 mg tablet Take one tablet up to three times a day as needed for spasm. albuterol (PROVENTIL) 2.5 mg /3 mL (0.083 %) nebulizer solution Use 3 mL via nebulizer every 6 hours as needed for Wheezing/Shortness of Breath. 1 vial contains 3 ml. albuterol HFA (PROVENTIL HFA, VENTOLIN HFA) 90 mcg/actuation inhaler Inhale 2 Puffs as instructed every 6 hours as needed for Wheezing/Shortness of Breath. (CLAUDETTE for Ventolin with dose counter) FAMILY HISTORY Problem Relation Age of Onset - Hypertension Paternal Grandmother - Heart Paternal Grandmother murmur - Glaucome,catarcts [OTHER] Paternal Grandmother - rare skin disease [OTHER] Paternal Grandmother - kidney stones [OTHER] Paternal Grandmother both kidneys removed - Breast Cancer Maternal Grandmother thyroid - Asthma Mother - Diabetes Father - Hypertension Father - Hypertension Maternal Grandfather polycystic kidneys,diverticulitis - Diabetes Maternal Grandfather Social History Substance Use Topics - Smoking status: Never Smoker - Smokeless tobacco: Never Used - Alcohol use No Objective Physical Exam Constitutional: She is well-developed, well-nourished, and in no distress. HENT: Head: Normocephalic. Right Ear: Tympanic membrane, external ear and ear canal normal. Left Ear: Tympanic membrane, external ear and ear canal normal. Nose: Sinus tenderness present. Mouth/Throat: Uvula is midline, oropharynx is clear and moist and mucous membranes are normal. No posterior oropharyngeal edema or posterior oropharyngeal erythema. Eyes: Conjunctivae are normal. Right eye exhibits no discharge. Left eye exhibits no discharge. Neck: Neck supple. Cardiovascular: Normal rate, regular rhythm and normal heart sounds. No murmur heard. Pulmonary/Chest: Effort normal and breath sounds normal. No respiratory distress. She has no wheezes. She has no rales. Lymphadenopathy: She has no cervical adenopathy. Neurological: She is alert. Skin: Skin is warm and dry. No rash noted. Nursing note and vitals reviewed. ASSESSMENT/PLAN: 1. Sinobronchitis - ICD9: 473.9, 490, ICD10: J32.9, J40 - Will begin treatment with Doxycycline - Supportive care with plenty of fluids, rest, and analgesia prn. - DOXYCYCLINE HYCLATE 100 MG CAPSULE - [id number] 2 MG-30 MG-10 MG/5 ML SYRUP - Follow-up with your PCP in 3-5 days if symptoms have not improved or sooner if symptoms worsen - Discussed red flags and need for immediate medical evaluation if any occur. - Discussed supportive care treatment with fluids, rest and analgesia. - Discussed expected course of illness Criss Claros APRN.DIANE GALINDO Observed: 09/13/2017 Status: COMPLETED Source: [place] 9:45 AM [facility] REPOSITORY Office Visit (UCWSTR) SCAR WHITE ([id number]) 1995 F Date Time Provider Department 09/13/17 9:45 AM CRISS CLAROS (WHEEL [employer]ER) [facility] During your visit today, we recorded the following information about you: Temperature Pulse Respiration Blood pressure 98.1 degrees 84/minute 18/minute 121/88 Weight 198.7 kg Criss Claros APRN.DIANE 09/13/2017 10:28 AM Signed Subjective HPI Scar White is a 22 year old female who presents with cough, congestion, sinus pain and pressure for the last 7-10 days. She has taken mucinex at home without relief and ibuprofen for headache. Review of Systems Constitutional: Positive for chills and fever (reported 100.5 at home). HENT: Positive for congestion, ear pain, sinus pain and sore throat. Respiratory: Positive for cough. Negative for sputum production and shortness of breath. Cardiovascular: Negative. Negative for chest pain. Gastrointestinal: Negative. Negative for abdominal pain, diarrhea, nausea and vomiting. Musculoskeletal: Negative. Negative for myalgias. Skin: Negative. Neurological: Positive for dizziness and headaches. BP 121/88 Pulse 84 Temp 36.7 ?C (98.1 ?F) (Tympanic) Resp 18 Wt (!) 198.7 kg (438 lb) SpO2 96% BMI 65.25 kg/m2 PAST MEDICAL HISTORY Diagnosis Date - ADD (attention deficit disorder) - Anxiety age 15y - Asthma 07/21/2012 mild intermittent - Depression age 15y - Dysmenorrhea in the adolescent 08/23/2012 - Flat feet 12/27/2009 - foot problems bunions, wears orthotics - Fructose intolerance 03/2013 - History of herniated intervertebral disc Age 18 years - Menarche age 13 - Multiple nevi 07/21/2012 - Obesity peds (BMI ANDgt;=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/15/2012 - Sciatica 10/18/2014 - Skin tag 03/28/2011 PAST SURGICAL HISTORY Procedure Laterality Date - EGD 04/05/13 Mild Gastritis - LAPAROSCOPIC CHOLEYCYSTECTOMY 12/28/13 - OVARIAN CYSTECTOMY 07/08/2017 - REMOVE TONSILS/ADENOIDS,ANDlt;12 Y/O ANDlt; 6 yrs ALLERGIES Augmentin [Amoxicillin-Pot Clavulanate]; Bentyl [Dicyclomine Hcl]; Celery; Dimetapp [Brompheniramine-Pseudoephedrin]; Fructose; Penicillins MEDICATIONS sertraline (ZOLOFT) 50 mg tablet Take 1 tablet by mouth once daily. NORGESTIMATE-ETHINYL ESTRADIOL (SPRINTEC, 28, ORAL) Take by mouth. beclomethasone (QVAR) 40 mcg/actuation inhaler Inhale 2 Puffs as instructed twice daily. diclofenac, EC, (VOLTAREN) 75 mg EC tablet EPINEPHrine (EPIPEN) 0.3 mg/0.3 mL auto-injector methocarbamol (ROBAXIN) 500 mg tablet Take one tablet up to three times a day as needed for spasm. albuterol (PROVENTIL) 2.5 mg /3 mL (0.083 %) nebulizer solution Use 3 mL via nebulizer every 6 hours as needed for Wheezing/Shortness of Breath. 1 vial contains 3 ml. albuterol HFA (PROVENTIL HFA, VENTOLIN HFA) 90 mcg/actuation inhaler Inhale 2 Puffs as instructed every 6 hours as needed for Wheezing/Shortness of Breath. (CLAUDETTE for Ventolin with dose counter) FAMILY HISTORY Problem Relation Age of Onset - Hypertension Paternal Grandmother - Heart Paternal Grandmother murmur - Glaucome,catarcts [OTHER] Paternal Grandmother - rare skin disease [OTHER] Paternal Grandmother - kidney stones [OTHER] Paternal Grandmother both kidneys removed - Breast Cancer Maternal Grandmother thyroid - Asthma Mother - Diabetes Father - Hypertension Father - Hypertension Maternal Grandfather polycystic kidneys,diverticulitis - Diabetes Maternal Grandfather Social History Substance Use Topics - Smoking status: Never Smoker - Smokeless tobacco: Never Used - Alcohol use No Objective Physical Exam Constitutional: She is well-developed, well-nourished, and in no distress. HENT: Head: Normocephalic. Right Ear: Tympanic membrane, external ear and ear canal normal. Left Ear: Tympanic membrane, external ear and ear canal normal. Nose: Sinus tenderness present. Mouth/Throat: Uvula is midline, oropharynx is clear and moist and mucous membranes are normal. No posterior oropharyngeal edema or posterior oropharyngeal erythema. Eyes: Conjunctivae are normal. Right eye exhibits no discharge. Left eye exhibits no discharge. Neck: Neck supple. Cardiovascular: Normal rate, regular rhythm and normal heart sounds. No murmur heard. Pulmonary/Chest: Effort normal and breath sounds normal. No respiratory distress. She has no wheezes. She has no rales. Lymphadenopathy: She has no cervical adenopathy. Neurological: She is alert. Skin: Skin is warm and dry. No rash noted. Nursing note and vitals reviewed. ASSESSMENT/PLAN: 1. Sinobronchitis - ICD9: 473.9, 490, ICD10: J32.9, J40 - Will begin treatment with Doxycycline - Supportive care with plenty of fluids, rest, and analgesia prn. - DOXYCYCLINE HYCLATE 100 MG CAPSULE - [id number] 2 MG-30 MG-10 MG/5 ML SYRUP - Follow-up with your PCP in 3-5 days if symptoms have not improved or sooner if symptoms worsen - Discussed red flags and need for immediate medical evaluation if any occur. - Discussed supportive care treatment with fluids, rest and analgesia. - Discussed expected course of illness SHI Coyne APRN.CNP 09/13/2017 10:16 AM Signed Acute Sinusitis Each of us has four paired cavities (spaces) in our head that are connected to the nose by narrow channels. These cavities, known as sinuses, produce thin mucus that drains out of the channels of the nose. This drainage helps keep the nose clean and free of particles and bacteria. Normally, sinuses are filled with air. But when sinuses become blocked and filled with fluid, bacteria can grow and cause an infection (bacterial sinusitis). Conditions that cause sinus blockage include: ? the common cold ? allergic rhinitis (swelling of the lining of the nose due to allergies) ? nasal polyps (small growths in the lining of the nose), or ? a deviated septum (the wall between the left and right nostril is crooked). Allergies, such as hay fever, can also cause swelling and poor drainage of the sinuses. One confusing factor to consider is that many people with ?sinus headaches? are actually suffering from migraines. In fact, in large clinical studies, up to 90% of people who reported sinus headaches were diagnosed with migraines instead. Migraines can cause headaches in combination with facial pressure over the sinuses, a runny nose, and nasal congestion. If you have symptoms that involve the sinuses, it may be difficult to tell if you have sinusitis, a cold, nasal allergy, or even a migraine. This article will describe the symptoms, diagnosis, and treatment of sinusitis, and how to tell the difference between sinusitis, cold, migraines, and nasal allergy. What is sinusitis? Sinusitis is an inflammation, or swelling, of the tissue lining the sinuses. There are two types of sinusitis: ? Acute bacterial sinusitis: a sudden onset of cold symptoms such as runny nose, stuffy nose, and facial pain that does not go away after 10 days, or symptoms that seem to begin improving but return worse than the initial symptoms. It responds well to antibiotics and decongestants. ? Chronic sinusitis: a condition defined by nasal congestion, drainage, facial pain/pressure, and decreased sense of smell for at least 12 weeks. Who gets sinusitis? Every year, approximately 1 billion Americans have at least one episode of viral sinusitis. About 37 million will develop a bacterial sinusitis. People who have the following conditions have a higher risk of sinusitis: ? Nasal mucus membrane swelling, as from a common cold or allergies ? Blockage of drainage ducts, leading to trapping of mucus ? Structure differences that narrow the drainage ducts ? Conditions that result in an increased risk of infection ? Polyps (growths) In children, common factors in the environment that contribute to sinusitis include allergies, illness from other children at day care or school, and smoke in the environment. In adults, the contributing factors are most frequently viral infections, allergies, and smoking. What are the signs and symptoms of acute sinusitis? The primary symptoms of acute sinusitis include: ? Facial pain/pressure/tenderness ? Nasal stuffiness ? Nasal discharge (thick yellow or green discharge from nose), especially if it is long-lasting. These also may be present with viral illness. ? Loss of smell and taste ? Cough/congestion Additional symptoms may include: ? Fever of 102? or higher ? Ear pain ? Headache ? Bad breath ? Fatigue ? Ache in upper jaw and teeth How is sinusitis diagnosed? To diagnose sinusitis, your doctor will discuss your symptoms and examine your nose for swelling and drainage. Your personal history is most important in diagnosing sinusitis. A physical exam of the ears, nose, and throat is performed to look for signs of obstruction (blockage) or infection. Some patients may have conditions that may need to be referred to a specialist, such as an ear, nose, and throat (ENT) physician. How is sinusitis treated? Acute sinusitis. If you have a simple sinusitis infection, your health care provider may recommend treatment with prhz-sjv-hlriadt medications for cold and allergy, nasal saline irrigation, and drinking fluids (as most sinusitis is viral). Use of prescription intranasal steroid sprays might be added to help control symptoms. However, non-prescription drops or sprays should not be used beyond 5 days -- or they may actually increase congestion. If symptoms do not improve after at least 10 days, if the symptoms seem to be getting worse, or if medications for cold or allergy do not improve symptoms, a bacterial infection may be causing the sinusitis. In this case, antibiotics are given for 7 days in adults and 10 days in children. Antibiotics should improve symptoms within 48 hours. Chronic sinusitis. Treating chronic sinusitis begins with controlling the underlying condition, which is most often allergies. Standard treatments include intranasal steroid sprays, topical antihistamine sprays, or antihistamine pills, and leukotriene antagonists such as montelukast. Often you will be encouraged to rinse the nose with saline irrigations. Sometimes medications may be added to these irrigations. If sinusitis is not controlled, the next step is a visit with an Ear, Nose and Throat Specialist. Will I need to make lifestyle changes? If you have indoor allergies, avoiding triggers -- such as animal dander and dust mites ? is recommended in addition to medications. Smoking is never recommended, but if you do smoke, strongly consider a program to help you stop smoking, as this may be the main reason you have sinus infections. No special diet is required, but drinking extra fluids helps to thin nasal secretions. What are the symptoms of the common cold? An upper respiratory infection (the common cold) is usually caused by a virus that infects the nose and throat. Most upper respiratory infections are not bacterial and do not respond to antibiotics. A cold may cause swelling in the sinuses, preventing the outflow of mucus. Cold symptoms include nasal congestion, runny nose, post-nasal drip (ojtp-ea-pylh release of nasal fluid into the back of the throat), headache, achiness, and fatigue. Cough and fever may also go along with these symptoms. Cold symptoms usually build, peak, and slowly disappear. No treatment is necessary for a cold, but some medications can ease symptoms. For example, decongestants may decrease drainage and open the nasal passages. Analgesics (pain relievers) may help with fever and headache. Cough medication may help, as well. Colds will typically last from a few days to about a week. What is the harm in getting an antibiotic for a common cold? Viral infections like the common cold are not cured by antibiotics. Taking an antibiotic for a viral infection unnecessarily puts you at risk for side effects related to the antibiotic. In addition, the overuse of antibiotics leads to antibiotic resistance, which may make future infections more difficult to treat. Finally, the use of inappropriate medication increases health care costs unnecessarily. What are the symptoms of nasal allergy? Symptoms of nasal allergy include: ? Sneezing ? Itchy nose ? Clear, watery nasal discharge ? Nasal blockage ? Feeling fatigued How is nasal allergy treated? Usually medications are prescribed to relieve symptoms. These may include antihistamines, with or without decongestants, or steroid nasal sprays. Other nasal sprays, which deliver antihistamines or cromolyn sodium, are sometimes helpful. If allergy symptoms are chronic (long-term), allergy testing and allergy shots (immunotherapy) may be helpful. How can I tell if I have a sinus infection, cold, or nasal allergy? Although the symptoms of sinusitis and nasal allergy may occur with a common cold, in general, cold-related symptoms disappear within 1 week. The point at which a normal cold ends and a sinus condition begins is not always easy to know. If you are fighting off a cold and develop symptoms of a sinus infection or nasal allergy, see your health care provider. You will be asked to describe your symptoms and medical history. ? How do I know if my sinus condition requires the care of an ear, nose, and throat specialist? Most routine sinus conditions are easily cared for by primary care physicians. If, however, you are bothered by ongoing abnormal symptoms, recurring infections, or have abnormal X-ray findings or complications, a referral to a specialist is appropriate. References ? Maricarmen Wagner et al., IDSA Clinical Practice Guideline for Acute Bacterial Rhinosinusitis in Children and Adults. Clinical Infectious Diseases; 2012;54(8):8908-6224. ? [place] Cun[place], Sinusitis: Allergies, antibiotics, aspirin, asthma. [facility] Journal of Medicine 2006; 73(7): 671-678 ? [employer] [place] of Allergy and Infectious Diseases. Sinusitis (Sinus Infection) Accessed 04/17/2015. ? [place] [employer], Asthma, and Immunology. Sinusitis Accessed 04/17/2015. ? [place] [employer], Asthma ANDamp; Immunology. Sinus Information Accessed 04/17/2015. ? Vince Alonzo., Prevalence of migraine in patients with a history of self-reported or physician-diagnosed ANDquot;sinusANDquot; headache. Arch [employer] Med, 2004. 164(16):1769-72. ? Copyright 4802-1346 [facility]. All rights reserved. ACUTE BRONCHITIS: You have acute bronchitis. This means the airway passages in your lungs are inflamed. Bronchitis may be caused by viruses or bacteria. Inhaling cigarette smoke will always make it worse. Exposure to irritating chemicals or second hand smoke as well as allergies can contribute to bronchitis. Repeat episodes of bronchitis may cause lifelong lung problems. Acute bronchitis is usually treated with rest, fluids, cough medicine, and possibly antibiotics or inhaled medicine to open up the small airways. It is very important that you avoid smoke and drink increased amounts of fluids. A cool air vaporizer can help thin bronchial secretions. This makes it easier to cough and clear your chest. If you are a cigarette smoker, consider using nicotine gum or skin patches to help you withdraw. Recovery from bronchitis is often slow, but you should start feeling better after 2-3 days of treatment. Please call your doctor or return here if you have any of the following symptoms: - Increased fever, chills, or chest pain. - Severe shortness of breath or bloody sputum. - Do not improve after 3 days of proper treatment. Referring Provider: SELF [[id number]] Allergies As of Date: 09/13/2017 Noted Allergy Reaction AUGMENTIN (AMOXICILLIN-POT CLAVUL*12/15/2012 6 - Diarrhea BENTYL (DICYCLOMINE HCL) 07/19/2013 11 - Vomiting CELERY 04/23/2016 14 - Other: See Comments Comments: Throat AND tongue numbness DIMETAPP (BROMPHENIRAMINE-PSEUDOE*05/17/2005 FRUCTOSE 01/17/2014 14 - Other: See Comments Comments: Abdominal pain, gassiness, diarrhea PENICILLINS 09/05/2011 2 - Rash Date Reviewed: 09/13/2017 Reviewed by: Criss ([facility] [place] - Fully Assessed Reason for Visit: Pain, Sinus [857] Cmt: sinus pressure/drainage x 1 week Cough [28] Cmt: x 1 week Primary Visit Diagnosis:Sinobronchitis [J32.9, J40] Order(s):doxycycline hyclate (VIBRAMYCIN) 100 mg capsuleTake 1 capsule by mouth twice daily for 10 days.Disp: 20 capsuleRfl: 0 Gnkvbaisgsopebu-Juepfbzws-PG (BROMFED DM) 2-30-10 mg/5 mL syrupTake 5 mL by mouth four times daily as needed.Disp: 118 mLRfl: 0 Prescriptions as of 09/13/2017 Sig: SERTRALINE 50 MG TABLET Take 1 tablet by mouth once d* SPRINTEC (28) ORAL Take by mouth. BECLOMETHASONE DIPROPIONATE 4* Inhale 2 Puffs as instructed * DICLOFENAC SODIUM 75 MG TABLE* EPINEPHRINE 0.3 MG/0.3 ML INJ* METHOCARBAMOL 500 MG TABLET Take one tablet up to three t* ALBUTEROL SULFATE 2.5 MG/3 ML* Use 3 mL via nebulizer every * ALBUTEROL SULFATE HFA 90 MCG/* Inhale 2 Puffs as instructed * DOXYCYCLINE HYCLATE 100 MG CA* Take 1 capsule by mouth twice* BROMPHENIRAMINE-PSEUDOEPHEDRI* Take 5 mL by mouth four times* Problem List As Of Date 09/13/2017 Noted Resolved ADD (Attention Deficit Disorder) [F98.8] INVALID FOR* Flat Feet [M21.41, M21.42] INVALID FOR* Skin tag [L91.8] INVALID FOR* Viral wart, unspecified [B07.9] INVALID FOR*07/21/2012 Multiple nevi [D22.9] INVALID FOR* Moderate persistent asthma without complication*INVALID FOR* Dysmenorrhea in the adolescent [N94.6] INVALID FOR* Abdominal pain [R10.9] INVALID FOR*01/10/2015 Nausea [R11.0] INVALID FOR*01/10/2015 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 These cavities, known as sinuses, produce thin mucus that drains out of the channels of the nose. This drainage helps keep the nose clean and free of particles and bacteria. Normally, sinuses are filled with air. But when sinuses become blocked and filled with fluid, bacteria can grow and cause an infection (bacterial sinusitis). Conditions that cause sinus blockage include: ? the common cold ? allergic rhinitis (swelling of the lining of the nose due to allergies) ? nasal polyps (small growths in the lining of the nose), or ? a deviated septum (the wall between the left and right nostril is crooked). Allergies, such as hay fever, can also cause swelling and poor drainage of the sinuses. One confusing factor to consider is that many people with ?sinus headaches? are actually suffering from migraines. In fact, in large clinical studies, up to 90% of people who reported sinus headaches were diagnosed with migraines instead. Migraines can cause headaches in combination with facial pressure over the sinuses, a runny nose, and nasal congestion. If you have symptoms that involve the sinuses, it may be difficult to tell if you have sinusitis, a cold, nasal allergy, or even a migraine. This article will describe the symptoms, diagnosis, and treatment of sinusitis, and how to tell the difference between sinusitis, cold, migraines, and nasal allergy. What is sinusitis? Sinusitis is an inflammation, or swelling, of the tissue lining the sinuses. There are two types of sinusitis: ? Acute bacterial sinusitis: a sudden onset of cold symptoms such as runny nose, stuffy nose, and facial pain that does not go away after 10 days, or symptoms that seem to begin improving but return worse than the initial symptoms. It responds well to antibiotics and decongestants. ? Chronic sinusitis: a condition defined by nasal congestion, drainage, facial pain/pressure, and decreased sense of smell for at least 12 weeks. Who gets sinusitis? Every year, approximately 1 billion Americans have at least one episode of viral sinusitis. About 37 million will develop a bacterial sinusitis. People who have the following conditions have a higher risk of sinusitis: ? Nasal mucus membrane swelling, as from a common cold or allergies ? Blockage of drainage ducts, leading to trapping of mucus ? Structure differences that narrow the drainage ducts ? Conditions that result in an increased risk of infection ? Polyps (growths) In children, common factors in the environment that contribute to sinusitis include allergies, illness from other children at day care or school, and smoke in the environment. In adults, the contributing factors are most frequently viral infections, allergies, and smoking. What are the signs and symptoms of acute sinusitis? The primary symptoms of acute sinusitis include: ? Facial pain/pressure/tenderness ? Nasal stuffiness ? Nasal discharge (thick yellow or green discharge from nose), especially if it is long-lasting. These also may be present with viral illness. ? Loss of smell and taste ? Cough/congestion Additional symptoms may include: ? Fever of 102? or higher ? Ear pain ? Headache ? Bad breath ? Fatigue ? Ache in upper jaw and teeth How is sinusitis diagnosed? To diagnose sinusitis, your doctor will discuss your symptoms and examine your nose for swelling and drainage. Your personal history is most important in diagnosing sinusitis. A physical exam of the ears, nose, and throat is performed to look for signs of obstruction (blockage) or infection. Some patients may have conditions that may need to be referred to a specialist, such as an ear, nose, and throat (ENT) physician. How is sinusitis treated? Acute sinusitis. If you have a simple sinusitis infection, your health care provider may recommend treatment with scbd-ixi-umjjilf medications for cold and allergy, nasal saline irrigation, and drinking fluids (as most sinusitis is viral). Use of prescription intranasal steroid sprays might be added to help control symptoms. However, non- prescription drops or sprays should not be used beyond 5 days -- or they may actually increase congestion. If symptoms do not improve after at least 10 days, if the symptoms seem to be getting worse, or if medications for cold or allergy do not improve symptoms, a bacterial infection may be causing the sinusitis. In this case, antibiotics are given for 7 days in adults and 10 days in children. Antibiotics should improve symptoms within 48 hours. Chronic sinusitis. Treating chronic sinusitis begins with controlling the underlying condition, which is most often allergies. Standard treatments include intranasal steroid sprays, topical antihistamine sprays, or antihistamine pills, and leukotriene antagonists such as montelukast. Often you will be encouraged to rinse the nose with saline irrigations. Sometimes medications may be added to these irrigations. If sinusitis is not controlled, the next step is a visit with an Ear, Nose and Throat Specialist. Will I need to make lifestyle changes? If you have indoor allergies, avoiding triggers -- such as animal dander and dust mites ? is recommended in addition to medications. Smoking is never recommended, but if you do smoke, strongly consider a program to help you stop smoking, as this may be the main reason you have sinus infections. No special diet is required, but drinking extra fluids helps to thin nasal secretions. What are the symptoms of the common cold? An upper respiratory infection (the common cold) is usually caused by a virus that infects the nose and throat. Most upper respiratory infections are not bacterial and do not respond to antibiotics. A cold may cause swelling in the sinuses, preventing the outflow of mucus. Cold symptoms include nasal congestion, runny nose, post- nasal drip (ktwf-gw-ipye release of nasal fluid into the back of the throat), headache, achiness, and fatigue. Cough and fever may also go along with these symptoms. Cold symptoms usually build, peak, and slowly disappear. No treatment is necessary for a cold, but some medications can ease symptoms. For example, decongestants may decrease drainage and open the nasal passages. Analgesics (pain relievers) may help with fever and headache. Cough medication may help, as well. Colds will typically last from a few days to about a week. What is the harm in getting an antibiotic for a common cold? Viral infections like the common cold are not cured by antibiotics. Taking an antibiotic for a viral infection unnecessarily puts you at risk for side effects related to the antibiotic. In addition, the overuse of antibiotics leads to antibiotic resistance, which may make future infections more difficult to treat. Finally, the use of inappropriate medication increases health care costs unnecessarily. What are the symptoms of nasal allergy? Symptoms of nasal allergy include: ? Sneezing ? Itchy nose ? Clear, watery nasal discharge ? Nasal blockage ? Feeling fatigued How is nasal allergy treated? Usually medications are prescribed to relieve symptoms. These may include antihistamines, with or without decongestants, or steroid nasal sprays. Other nasal sprays, which deliver antihistamines or cromolyn sodium, are sometimes helpful. If allergy symptoms are chronic (long- term), allergy testing and allergy shots (immunotherapy) may be helpful. How can I tell if I have a sinus infection, cold, or nasal allergy? Although the symptoms of sinusitis and nasal allergy may occur with a common cold, in general, cold-related symptoms disappear within 1 week. The point at which a normal cold ends and a sinus condition begins is not always easy to know. If you are fighting off a cold and develop symptoms of a sinus infection or nasal allergy, see your health care provider. You will be asked to describe your symptoms and medical history. ? How do I know if my sinus condition requires the care of an ear, nose, and throat specialist? Most routine sinus conditions are easily cared for by primary care physicians. If, however, you are bothered by ongoing abnormal symptoms, recurring infections, or have abnormal X-ray findings or complications, a referral to a specialist is appropriate. References ? Bernard A. et al., IDSA Clinical Practice Guideline for Acute Bacterial Rhinosinusitis in Children and Adults. Clinical Infectious Diseases; 2012;54(8):1624-7016. ? [place] C[place], Sinusitis: Allergies, antibiotics, aspirin, asthma. [facility] Journal of Medicine 2006; 73(7): 671-678 ? [employer] [place] of Allergy and Infectious Diseases. Sinusitis (Sinus Infection) Accessed 04/17/2015. ? [place] [employer], Asthma, and Immunology. Sinusitis Accessed 04/17/2015. ? [place] [employer], Ast[employer] AND Immunology. Sinus Information Accessed 04/17/2015. ? Vince Alonzo., Prevalence of migraine in patients with a history of self-reported or physician-diagnosed sinus headache. Arch [employer] Med, 2004. 164(16):1769-72. ? Copyright 6532-5879 [facility]. All rights reserved. ACUTE BRONCHITIS: You have acute bronchitis. This means the airway passages in your lungs are inflamed. Bronchitis may be caused by viruses or bacteria. Inhaling cigarette smoke will always make it worse. Exposure to irritating chemicals or second hand smoke as well as allergies can contribute to bronchitis. Repeat episodes of bronchitis may cause lifelong lung problems. Acute bronchitis is usually treated with rest, fluids, cough medicine, and possibly antibiotics or inhaled medicine to open up the small airways. It is very important that you avoid smoke and drink increased amounts of fluids. A cool air vaporizer can help thin bronchial secretions. This makes it easier to cough and clear your chest. If you are a cigarette smoker, consider using nicotine gum or skin patches to help you withdraw. Recovery from bronchitis is often slow, but you should start feeling better after 2-3 days of treatment. Please call your doctor or return here if you have any of the following symptoms: - Increased fever, chills, or chest pain. - Severe shortness of breath or bloody sputum. - Do not improve after 3 days of proper treatment. Prescriptions ordered this encounter Disp Refills Start End DOXYCYCLINE HYCLATE 100 MG CAPSULE 20 c* 0 09/13/2017 09/23/2017 Route: ORAL Sig: Take 1 capsule by mouth twice daily for 10 days. [id number]-[id number] 2* 118 * 0 09/13/2017 Route: ORAL Sig: Take 5 mL by mouth four times daily as needed. Encounter Status:Closed by CRISS CLAROS on 09/13/17 PROGRESS Observed: 08/25/2017 Status: COMPLETED Source: [place] 9:01 AM [facility] ID: [id number] Author: Jyoti Hebert (Textile Machine Mechanic) JUNE Rios.WHEEL BLOCKER Service: (none) Author Type: Nurse Practitioner Type: Progress Notes Filed: 08/25/2017 10:48 AM Note Text: 22 year old female presents for a routine 12+ year check-up. 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 Significant stresses: No [] SPORTS QUESTIONS color enhanced section History of seizures: No History of concussion: No History of syncope: No History of heart problems: No History of hypertension: No History of asthma: Yes History of single kidney: No History of skeletal problems: No History of any significant injury: Yes herniated discs in back, in pain management Family history of either heart problems or sudden <age 40 years: Unknown MEDICAL HISTORY Past medical history: IMPORTED 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 - Sciatica 10/18/2014 - Skin tag 03/28/2011 IMPORTED PAST SURGICAL HISTORY Procedure Laterality Date - EGD 04/05/13 Mild Gastritis - LAPAROSCOPIC CHOLEYCYSTECTOMY 12/28/13 - OVARIAN CYSTECTOMY 07/08/2017 - REMOVE TONSILS/ADENOIDS,<12 Y/O < 6 yrs Family history: IMPORTED FAMILY HISTORY Problem Relation Age of Onset - Hypertension Paternal Grandmother - Heart Paternal Grandmother murmur - Glaucome,catarcts [OTHER] Paternal Grandmother - rare skin disease [OTHER] Paternal Grandmother - kidney stones [OTHER] Paternal Grandmother both kidneys removed - Breast Cancer Maternal Grandmother thyroid - Asthma Mother - Diabetes Father - Hypertension Father - Hypertension Maternal Grandfather polycystic kidneys,diverticulitis - Diabetes Maternal Grandfather GYNECOLOGICAL HISTORY Menarche: 14 Periods are: regular q 28-30 days while on BCP [] SOCIAL HISTORY color enhanced section Sexual activity: No Substance abuse and smoking: No High risk behaviors: NONE Mental health: POSITIVE OUTLOOK Social history obtained when patient was alone [] MISCELLANEOUS color enhanced section Difficulties with learning for patient: No VISION AND HEARING ASSESSMENT Eye doctor visit within the past year: No Vision: Correction: glasses, As tested: NONE Acuity: RIGHT: 20/ 70 LEFT: 20/ 70 Hearing concerns: No [] ADDITIONAL NURSING COMMENTS color enhanced section None Latonia León LPN PHQ-9 reviewed and see scores: Is seeing PCP for depression and has followup in 1 month PHYSICAL EXAM (to re-import BP% use .BPFA) Blood pressure: Normalized ayqdjqg-vtz-dsi data not available for patients older than 20 years. General: alert and active, obese, in no apparent distress Head: normal Eyes: conjunctivae/corneas clear. PERRL, EOM's intact. Ears: External ears normal. Canals clear. TM's normal. Nose: Nares normal. Septum midline. Mucosa normal. Oropharynx: Lips, mucosa, and tongue normal. Teeth and gums normal. Oropharynx normal. Neck: Neck supple, no adenopathy; thyroid symmetric, normal size Back: Back symmetric, no curvature. Lungs: Lungs clear to auscultation. Heart: RRR , Normal S1 and S2.,No murmurs Breast: Aristides stage V, no abnormality noted by hx--sees Property Management Intern Abdomen: Abdomen soft, non-tender. BS normal. No masses, organomegaly Genitalia: FEMALE: External genitalia normal by hx, Aristides stage V--sees Property Management Intern Extremities: No deformities, edema, skin discoloration, clubbing or cyanosis. Good capillary refill. , Extremities normal. No deformities, edema, or skin discolora Musculoskeletal: Extremities with FROM and no problems identified. Neuro: No focal deficits or abnormal findings present Skin: acanthosis nigricans neck [] ASSESSMENT color enhanced section Well patient Normal growth Issues: BMI > 99% Obesity Watch blood pressure; recheck with Property Management Intern and PCP PLAN Plan per orders. Note: Patient states was screened for Diabetes by Property Management Intern Referral letters given for Solutions Specialist/Nutrition and Exercise/Weight Management Counseling: seat belts, bike AND motorcycle helmets, water safety, sunscreen power tools, firearms exercise, sports safety 2% (or less) milk, balanced diet, limit sugar and high fat foods dental care adequate sleep, limit TV / video and computer games social interactions with family and peers school issues drug, alcohol and tobacco use sexual activity and control mental health and abuse / domestic violence issues Forms filled out: Daycare Worker Follow up visit in 1 year for routine care or prn with concerns. I have reviewed the above nursing obtained HPI and I concur. Jyoti Rios APRN.WHEEL BLOCKER CNOV Observed: 08/25/2017 Status: COMPLETED Source: [place] 9:00 AM [facility] REPOSITORY Office Visit (PEDSWS) SCAR WHITE ([id number]) 1995 F Date Time Provider Department 08/25/17 9:00 AM JYOTI RIOS (NATURAL RESOURCES SPECIALIST) PEDSWS During your visit today, we recorded the following information about you: Temperature Pulse Respiration Blood pressure 97.3 degrees 104/minute 16/minute 142/90 Weight Height Last Period 197.8 kg 1.745 m 07/20/17 Jyoti Rios APRN.WHEEL BLOCKER, CLOTH PRINTING BACK TENDER.WHEEL BLOCKER 08/25/2017 10:48 AM Signed 22 year old female presents for a routine 12+ year check-up. [] GENERAL QUESTIONS color enhanced section Patient concerns: NONE Parental concerns: N/A Diet: milk: skim; balanced diet; specific issues: NONE Stools: Issues: diarrhea from fructose in foods Urine: NO PROBLEMS Fluoride Water: uses significant amount of [place]quot[place]city[place]quot[place] water from: [facility] PWS - deficient (use recommendations for levels of ANDlt;0.3 ppm), fluoride level: 0.13 ppm (2011 testing) Prescription: age 17+ years - no fluoride supplement indicated Ongoing subspecialty care: Ongoing care: gynecology, Pain Management Ongoing ancillary care: NONE School/etc: N/A, 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; 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 Significant stresses: No [] SPORTS QUESTIONS color enhanced section History of seizures: No History of concussion: No History of syncope: No History of heart problems: No History of hypertension: No History of asthma: Yes History of single kidney: No History of skeletal problems: No History of any significant injury: Yes herniated discs in back, in pain management Family history of either heart problems or sudden ANDlt;age 40 years: Unknown MEDICAL HISTORY Past medical history: IMPORTED PAST MEDICAL HISTORY Diagnosis Date - ADD (attention deficit disorder) - Anxiety age 15y - Asthma 07/21/2012 mild intermittent - Depression age 15y - Dysmenorrhea in the adolescent 08/23/2012 - Flat feet 12/27/2009 - foot problems bunions, wears orthotics - Fructose intolerance 03/2013 - History of herniated intervertebral disc Age 18 years - Menarche age 13 - Multiple nevi 07/21/2012 - Obesity peds (BMI ANDgt;=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/15/2012 - Sciatica 10/18/2014 - Skin tag 03/28/2011 IMPORTED PAST SURGICAL HISTORY Procedure Laterality Date - EGD 04/05/13 Mild Gastritis - LAPAROSCOPIC CHOLEYCYSTECTOMY 12/28/13 - OVARIAN CYSTECTOMY 07/08/2017 - REMOVE TONSILS/ADENOIDS,ANDlt;12 Y/O ANDlt; 6 yrs Family history: IMPORTED FAMILY HISTORY Problem Relation Age of Onset - Hypertension Paternal Grandmother - Heart Paternal Grandmother murmur - Glaucome,catarcts [OTHER] Paternal Grandmother - rare skin disease [OTHER] Paternal Grandmother - kidney stones [OTHER] Paternal Grandmother both kidneys removed - Breast Cancer Maternal Grandmother thyroid - Asthma Mother - Diabetes Father - Hypertension Father - Hypertension Maternal Grandfather polycystic kidneys,diverticulitis - Diabetes Maternal Grandfather GYNECOLOGICAL HISTORY Menarche: 14 Periods are: regular q 28-30 days while on BCP [] SOCIAL HISTORY color enhanced section Sexual activity: No Substance abuse and smoking: No High risk behaviors: NONE Mental health: POSITIVE OUTLOOK Social history obtained when patient was alone [] MISCELLANEOUS color enhanced section Difficulties with learning for patient: No VISION ANDamp; HEARING ASSESSMENT Eye doctor visit within the past year: No Vision: Correction: glasses, As tested: NONE Acuity: RIGHT: 20/ 70 LEFT: 20/ 70 Hearing concerns: No [] ADDITIONAL NURSING COMMENTS color enhanced section None Latonia León WATER METER READER PHQ-9 reviewed and see scores: Is seeing PCP for depression and has followup in 1 month PHYSICAL EXAM (to re-import BP% use .BPFA) Blood pressure: Normalized [id number]-[id number] data not available for patients older than 20 years. General: alert and active, obese, in no apparent distress Head: normal Eyes: conjunctivae/corneas clear. PERRL, EOM's intact. Ears: External ears normal. Canals clear. TM's normal. Nose: Nares normal. Septum midline. Mucosa normal. Oropharynx: Lips, mucosa, and tongue normal. Teeth and gums normal. Oropharynx normal. Neck: Neck supple, no adenopathy; thyroid symmetric, normal size Back: Back symmetric, no curvature. Lungs: Lungs clear to auscultation. Heart: RRR , Normal S1 and S2.,No murmurs Breast: Aristides stage V, no abnormality noted by hx--sees Property Management Intern Abdomen: Abdomen soft, non-tender. BS normal. No masses, organomegaly Genitalia: FEMALE: External genitalia normal by hx, Aristides stage V--sees Property Management Intern Extremities: No deformities, edema, skin discoloration, clubbing or cyanosis. Good capillary refill. , Extremities normal. No deformities, edema, or skin discolora Musculoskeletal: Extremities with FROM and no problems identified. Neuro: No focal deficits or abnormal findings present Skin: acanthosis nigricans neck [] ASSESSMENT color enhanced section Well patient Normal growth Issues: BMI ANDgt; 99% Obesity Watch blood pressure; recheck with Property Management Intern and PCP PLAN Plan per orders. 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 I have reviewed the above nursing obtained HPI and I concur. Jyoti Rios APRN.DIANE Rios APRN.DIANE, JUNE.DIANE 08/25/2017 10:47 AM Signed Reviewed results of visit w/ patient. Verbalizes understanding. Referring Provider: SELF [[id number]] Allergies As of Date: 08/25/2017 Noted Allergy Reaction AUGMENTIN (AMOXICILLIN-POT CLAVUL*12/15/2012 6 - Diarrhea BENTYL (DICYCLOMINE HCL) 07/19/2013 11 - Vomiting CELERY 04/23/2016 14 - Other: See Comments Comments: Throat AND tongue numbness DIMETAPP (BROMPHENIRAMINE-PSEUDOE*05/17/2005 FRUCTOSE 01/17/2014 14 - Other: See Comments Comments: Abdominal pain, gassiness, diarrhea PENICILLINS 09/05/2011 2 - Rash Date Reviewed: 08/25/2017 Reviewed by: Jyoti Hebert (Textile Machine Mechanic) JUNE Rios.DIANE - Fully Assessed Reason for Visit: Physical [83] Primary Visit Diagnosis:Encounter for routine child health examination with abnormal findings [Z00.121] Other Visit Diagnoses:PCOS (polycystic ovarian syndrome) [E28.2] Increased BMI (body mass index) [R63.8] Elevated blood pressure reading without diagnosis of hypertension [R03.0] Prescriptions as of 08/25/2017 Sig: SERTRALINE 50 MG TABLET Take 1 tablet by mouth once d* SPRINTEC (28) ORAL Take by mouth. BECLOMETHASONE DIPROPIONATE 4* Inhale 2 Puffs as instructed * DICLOFENAC SODIUM 75 MG TABLE* EPINEPHRINE 0.3 MG/0.3 ML INJ* METHOCARBAMOL 500 MG TABLET Take one tablet up to three t* ALBUTEROL SULFATE 2.5 MG/3 ML* Use 3 mL via nebulizer every * ALBUTEROL SULFATE HFA 90 MCG/* Inhale 2 Puffs as instructed * Problem List As Of Date 08/25/2017 Noted Resolved ADD (Attention Deficit Disorder) [F98.8] INVALID FOR* Flat Feet [M21.41, M21.42] INVALID FOR* Skin tag [L91.8] INVALID FOR* Viral wart, unspecified [B07.9] INVALID FOR*07/21/2012 Multiple nevi [D22.9] INVALID FOR* Asthma [J45.909] INVALID FOR* Dysmenorrhea in the adolescent [N94.6] INVALID FOR* Abdominal pain [R10.9] INVALID FOR*01/10/2015 Nausea [R11.0] INVALID FOR*01/10/2015 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 Verbalizes understanding. Disposition: Return in about 1 year (around 08/25/2018) for well. Follow-up and Disposition History Recorded Questionnaire: PED PHQ 9 1. Feeling down, depressed, irritable or hopeless? -> 2 - More Than Half the Days 2. Little interest or pleasure in doing things? -> 1 - Several Days 3. Trouble falling asleep, staying asleep, or sleeping too much? -> 3 - Nearly Every Day 4. Poor appetite, weight loss, or overeating? -> 2 - More Than Half the Days 5. Feeling tired or little energy? -> 1 - Several Days 6. Feeling bad about yourself-or feeling that you are a failure or that you have let yourself or your family down? -> 1 - Several Days 7. Trouble concentrating on things like school work, reading or watching TV? -> 2 - Mo- re Th- an Dale- lf th- e Da- ys 8. Moving or speaking so slowly that other people could have notices? Or the opposite-being so fidgety or restless that you were moving around a lot more than usual? -> 1 - Several Days 9. Thoughts that you would be better off or of hurting yourself in some way? -> 0 - Not At All 10. In the past year have you felt depressed or sad most days, even if you felt okay sometimes? -> Yes 11. If you are experiencing any of the problems listed on this questionnaire, how difficult have these problems made it for you to do your work, take care of things at home or get along with other people? -> Somewhat difficult 12. Has there been a time in the past month when you have had serious thoughts about ending your life? -> No 13. Have you ever tried to kill yourself or made a suicide attempt? -> No SCORE -> 13 Total Score: Depression Severity -> 10-14=Moderate depression (>or = to 11=Positive score) Classic SmartForms filed during this visit: Extended Vitals Letter Text [facility] Department of Pediatrics [address] [place] [address] August 25, 2017 To whom it may concern: Scar White was seen in the office today for BMI > 99%.(R63.8) PCOS.(E28.2) The following is advised: Nutrition/Solutions Specialist referral. Exercise therapy referral. Sincerely, Encounter Status:Closed by JYOTI RIOS WHEEL BLOCKER on 08/25/17 PROGRESS Observed: 08/14/2017 Status: COMPLETED Source: [place] 2:56 PM [facility] REPOSITORY HNO ID: [id number] Author: Crow Power Service: (none) Author Type: Physician Type: Progress Notes Filed: 08/14/2017 3:00 PM Note Text: The patient was seen for the issues discussed below. Problem list and history reviewed. Allergies reviewed. Medications reviewed. Immunizations reviewed. HISTORY: see history section below PHYSICAL EXAM: GENERAL: alert, well appearing, in no distress LEFT EYE: no drainage noted, no conjunctival injection noted; RIGHT EYE: no drainage noted, no conjunctival injection noted; NO ADDITIONAL EYE FINDINGS LEFT EAR: pinna normal, auditory canal normal, tympanic membrane clear, no effusion noted, RIGHT EAR: pinna normal, auditory canal normal, tympanic membrane clear, no effusion noted NOSE/SINUSES: nares normal, mucosa normal, no drainage noted OROPHARYNX: lips without lesions noted, gums/mucosa normal, oropharynx without erythema or exudates NECK/ADENOPATHY: neck supple, no adenopathy noted CHEST/LUNGS: lungs clear to auscultation GENERAL RECOMMENDATIONS: - Issues discussed in detail. - Symptom relief measures as needed. - Prescriptions, if ordered, are listed below. - Labs and/or X-rays, if ordered or obtained, are listed below. If the final results are not available at the conclusion of this visit, then additional recommendations may be made based on the final results. Note that all x-rays are reviewed by a radiologist before being considered final. - EKG, if ordered or obtained, is reviewed by a veteran appeals reviewer before being considered final. Additional recommendations may be made based on the final results. - Return to clinic should current symptoms (if present) worsen, other problems develop, or as needed. ADDITIONAL AND DICTATED PORTION: ADDITIONAL HISTORY The following Nursing History was reviewed with the family: Patient presents with: depression f-up anxiety f-up Scar is currently on Zoloft 25 mg daily. She is here for a follow-up exam. Specific depression screening questions noted in the separate documentation window. She states she has not felt any differently since starting the medication. No adverse side effects from the medication. No suicidal ideation. SCARED Rating Scale Panic/somatic 14 cutoff equals 7 Generalized anxiety 15 cutoff equals 9 Separation 13 cutoff equals 5 Social 6 cutoff equals 8 School avoidance 8 cutoff equals 3 TOTAL 56 cutoff equals 25 No fever. No fatigue/malaise. No activity changes. No eye complaints. No ear complaints. No nose complaints. No throat complaints. No lymph node enlargement. No bruising, excessive bleeding. No chest pain. No cough. No wheezing, stridor. No shortness of breath, retractions, tachypnea, cyanosis. No palpitations. No abdominal pain. No vomiting. No diarrhea. No rash. No edema. 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 This is not unexpected as we were restarting the medication at the last visit. No adverse side effects from Zoloft. No suicidal ideation. We will increase to 50 mg daily. Telephone follow-up in one month. We will gradually titrate the dosage as appropriate. We will plan a recheck when we feel we are at the patient's near dosage. Time, established: Spent approx. 25+ minutes (14046 level) in [id number] contact with the patient and/or family, more than half of which was devoted to discussing the above problems. This note was partially generated using [employer] voice recognition system, and there may be some incorrect words, spellings, and punctuation that were not noted in checking the note before saving. Crow Power M.D. PROGRESS Observed: 08/14/2017 Status: COMPLETED Source: [place] 2:45 PM [facility] REPOSITORY [facility] ID: [id number] Author: Crow Power Service: (none) Author Type: Physician Type: Progress Notes Filed: 08/14/2017 3:00 PM Note Text: Zung Depression Scale Important note: The Zung Self-Rating Depression scale is only a screening tool; it is not a diagnostic device. The result from this scale may indicate the need for further clinical evaluation. Patient instructions: Read each sentence carefully. For eash statement check the response that best corresponds to how often you have felt that way during the past two weeks. For statements 5 and 7, if you are on a diet, answer as if you were not. 1. I feel downhearted, blue and sad. Good part of the time (3) 2. Morning is when I feel the best. * Good part of the time (2) 3. I have crying spells or feel like it. Most or all of the time (4) 4. I have trouble sleeping through the night. Most or all of the time (4) 5. I eat as much as I used to. * Most or all of the time (1) 6. I enjoy looking at, talking to, and being with attractive women/men. * None of the time (4) 7. I notice that I am losing weight. None of the time (1) 8. I have trouble with constipation. Some of the time (2) 9. My heart beats faster than usual. Some of the time (2) 10. I get tired for no reason. Good part of the time (3) 11. My mind is as clear as it used to be. * Some of the time (3) 12. I find it easy to do the things I used to do. * Some of the time (3) 13. I am restless and can't keep still. Some of the time (2) 14. I feel hopeful about the future. * Some of the time (3) 15. I am more irritable than usual. Good part of the time (3) 16. I find it easy to make decisions. * None of the time (4) 17. I feel that I am useful and needed. * Some of the time (3) 18. My life is pretty full. * None of the time (4) 19. I feel that others would be better off if I were . Some of the time (2) 20. I still enjoy the things I used to do. * Some of the time (3) *note- scale reversed Raw score 56 SDS index conversion (raw score= SDS index) 56=70 SDS index Equivalent Clinical Global Impressions Below 50: Within normal range, no psychopathology 50-59 Presence of minimal to mild depression 60-69 Presence of moderate to marked depression 70 and over Presence of severe to exteme depression Crow Power MD CNOV Observed: 08/14/2017 Status: COMPLETED Source: [place] 2:30 PM [facility] REPOSITORY Office Visit (PEDSWS) SCAR [id number]) 1995 F Date Time Provider Department 08/14/17 2:30 PM CROW POWER During your visit today, we recorded the following information about you: Temperature Pulse Respiration Blood pressure 97.6 degrees 84/minute 16/minute 148/62 Weight Last Period 199.3 kg 07/20/17 Crow Power MD 08/14/2017 3:00 PM Signed Zung Depression Scale Important note: The Zung Self-Rating Depression scale is only a screening tool; it is not a diagnostic device. The result from this scale may indicate the need for further clinical evaluation. Patient instructions: Read each sentence carefully. For eash statement check the response that best corresponds to how often you have felt that way during the past two weeks. For statements 5 and 7, if you are on a diet, answer as if you were not. 1. I feel downhearted, blue and sad. Good part of the time (3) 2. Morning is when I feel the best. * Good part of the time (2) 3. I have crying spells or feel like it. Most or all of the time (4) 4. I have trouble sleeping through the night. Most or all of the time (4) 5. I eat as much as I used to. * Most or all of the time (1) 6. I enjoy looking at, talking to, and being with attractive women/men. * None of the time (4) 7. I notice that I am losing weight. None of the time (1) 8. I have trouble with constipation. Some of the time (2) 9. My heart beats faster than usual. Some of the time (2) 10. I get tired for no reason. Good part of the time (3) 11. My mind is as clear as it used to be. * Some of the time (3) 12. I find it easy to do the things I used to do. * Some of the time (3) 13. I am restless and can't keep still. Some of the time (2) 14. I feel hopeful about the future. * Some of the time (3) 15. I am more irritable than usual. Good part of the time (3) 16. I find it easy to make decisions. * None of the time (4) 17. I feel that I am useful and needed. * Some of the time (3) 18. My life is pretty full. * None of the time (4) 19. I feel that others would be better off if I were . Some of the time (2) 20. I still enjoy the things I used to do. * Some of the time (3) *note- scale reversed Raw score 56 SDS index conversion (raw score= SDS index) 56=70 SDS index Equivalent Clinical Global Impressions Below 50: Within normal range, no psychopathology 50-59 Presence of minimal to mild depression 60-69 Presence of moderate to marked depression 70 and over Presence of severe to exteme depression MD Crow Wilson MD 08/14/2017 3:00 PM Signed The patient was seen for the issues discussed below. Problem list and history reviewed. Allergies reviewed. Medications reviewed. Immunizations reviewed. HISTORY: see history section below PHYSICAL EXAM: GENERAL: alert, well appearing, in no distress LEFT EYE: no drainage noted, no conjunctival injection noted; RIGHT EYE: no drainage noted, no conjunctival injection noted; NO ADDITIONAL EYE FINDINGS LEFT EAR: pinna normal, auditory canal normal, tympanic membrane clear, no effusion noted, RIGHT EAR: pinna normal, auditory canal normal, tympanic membrane clear, no effusion noted NOSE/SINUSES: nares normal, mucosa normal, no drainage noted OROPHARYNX: lips without lesions noted, gums/mucosa normal, oropharynx without erythema or exudates NECK/ADENOPATHY: neck supple, no adenopathy noted CHEST/LUNGS: lungs clear to auscultation GENERAL RECOMMENDATIONS: - Issues discussed in detail. - Symptom relief measures as needed. - Prescriptions, if ordered, are listed below. - Labs and/or X-rays, if ordered or obtained, are listed below. If the final results are not available at the conclusion of this visit, then additional recommendations may be made based on the final results. Note that all x-rays are reviewed by a radiologist before being considered final. - EKG, if ordered or obtained, is reviewed by a veteran appeals reviewer before being considered final. Additional recommendations may be made based on the final results. - Return to clinic should current symptoms (if present) worsen, other problems develop, or as needed. ADDITIONAL ANDamp; DICTATED PORTION: ADDITIONAL HISTORY The following Nursing History was reviewed with the family: Patient presents with: depression f-up anxiety f-up Scar is currently on Zoloft 25 mg daily. She is here for a follow-up exam. Specific depression screening questions noted in the separate documentation window. She states she has not felt any differently since starting the medication. No adverse side effects from the medication. No suicidal ideation. SCARED Rating Scale Panic/somatic 14 cutoff equals 7 Generalized anxiety 15 cutoff equals 9 Separation 13 cutoff equals 5 Social 6 cutoff equals 8 School avoidance 8 cutoff equals 3 TOTAL 56 cutoff equals 25 No fever. No fatigue/malaise. No activity changes. No eye complaints. No ear complaints. No nose complaints. No throat complaints. No lymph node enlargement. No bruising, excessive bleeding. No chest pain. No cough. No wheezing, stridor. No shortness of breath, retractions, tachypnea, cyanosis. No palpitations. No abdominal pain. No vomiting. No diarrhea. No rash. No edema. 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 This is not unexpected as we were restarting the medication at the last visit. No adverse side effects from Zoloft. No suicidal ideation. We will increase to 50 mg daily. Telephone follow-up in one month. We will gradually titrate the dosage as appropriate. We will plan a recheck when we feel we are at the patient's near dosage. Time, established: Spent approx. 25+ minutes (77444 level) in yhic-ys-yjyn contact with the patient and/or family, more than half of which was devoted to discussing the above problems. This note was partially generated using [employer] voice recognition system, and there may be some incorrect words, spellings, and punctuation that were not noted in checking the note before saving. Crow Power M.D. Crow Power MD 08/14/2017 3:00 PM Addendum 5 to Go!TM Healthy Kids Inside ANDamp; Out 5 Eat FIVE fruits and veggies a day 4 Give and get FOUR compliments a day 3 Consume THREE calcium products a day 2 Limit media time to TWO hours a day 1 Get at least ONE hour of exercise a day 0 Consume ZERO sugar-sweetened drinks Go! Be healthy, inside and out! [email or web address] Referring Provider: SELF [200] Allergies As of Date: 08/14/2017 Noted Allergy Reaction AUGMENTIN (AMOXICILLIN-POT CLAVUL*12/15/2012 6 - Diarrhea BENTYL (DICYCLOMINE HCL) 07/19/2013 11 - Vomiting CELERY 04/23/2016 14 - Other: See Comments Comments: Throat AND tongue numbness DIMETAPP (BROMPHENIRAMINE-PSEUDOE*05/17/2005 FRUCTOSE 01/17/2014 14 - Other: See Comments Comments: Abdominal pain, gassiness, diarrhea PENICILLINS 09/05/2011 2 - Rash Date Reviewed: 08/14/2017 Reviewed by: Crow Power - Fully Assessed Reason for Visit: depression f-up [Other] anxiety f-up [Other] Primary Visit Diagnosis:Anxiety [F41.9] Other Visit Diagnosis:Depression, unspecified depression type [F32.9] Order(s):sertraline (ZOLOFT) 50 mg tabletTake 1 tablet by mouth once daily.Disp: 30 tabletRfl: 0 Prescriptions as of 08/14/2017 Sig: SPRINTEC (28) ORAL Take by mouth. BECLOMETHASONE DIPROPIONATE 4* Inhale 2 Puffs as instructed * DICLOFENAC SODIUM 75 MG TABLE* EPINEPHRINE 0.3 MG/0.3 ML INJ* METHOCARBAMOL 500 MG TABLET Take one tablet up to three t* ALBUTEROL SULFATE 2.5 MG/3 ML* Use 3 mL via nebulizer every * ALBUTEROL SULFATE HFA 90 MCG/* Inhale 2 Puffs as instructed * SERTRALINE 50 MG TABLET Take 1 tablet by mouth once d* Problem List As Of Date 08/14/2017 Noted Resolved ADD (Attention Deficit Disorder) [F98.8] INVALID FOR* Flat Feet [M21.41, M21.42] INVALID FOR* Skin tag [L91.8] INVALID FOR* Viral wart, unspecified [B07.9] INVALID FOR*07/21/2012 Multiple nevi [D22.9] INVALID FOR* Asthma [J45.909] INVALID FOR* Dysmenorrhea in the adolescent [N94.6] INVALID FOR* Abdominal pain [R10.9] INVALID FOR*01/10/2015 Nausea [R11.0] INVALID FOR*01/10/2015 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 Be healthy, inside and out! [email or web address] Prescriptions ordered this encounter Disp Refills Start End SERTRALINE 50 MG TABLET 30 t* 0 08/14/2017 Route: ORAL Sig: Take 1 tablet by mouth once daily. Medications Discontinued During This Encounter sertraline (ZOLOFT) 25 mg tablet 30 t* 0 07/22/2017 08/14/2017 Route: ORAL Sig: Take 1 tablet by mouth once daily. Disc: Reason for discontinue is not on file. Encounter Status:Closed by CROW POWER MD on 08/14/17 FOLLICLE STIMULATING Collected: 08/12/2017 Status: F Source: [place] 11:11 AM [facility] REPOSITORY TYPE CODE TESTS RESULT OUT OF RANGE REFERENCE UNITS LAB L3100.5125 mIU/mL Normal FSH 4.1 Result Comment: NORMAL REFERENCE RANGES FEMALE FOLLICULAR 2.3 - 12.6 mIU/mL MID-CYCLE PEAK 5.2 - 17.5 mIU/mL LUTEAL 1.7 - 12.9 mIU/mL POST-MENOPAUSAL ON MHT 5.9 - 72.8 mIU/mL NOT ON MHT 12.7 - 132.2 mlU/mL MALE 0.7 - 10.8 mIU/mL NEW TEST METHOD AND REFERENCE RANGES OCTOBER 27, 2011 Performed By: #### L3100.5125 #### [facility] [address] [place], [place], [address] ESTROGEN, TOTAL, SERUM Collected: 08/12/2017 Status: F Source: [place] 11:11 AM [facility] REPOSITORY Order Comment: Has Patient had Radioactive Injection for X-ray?: N TYPE CODE TESTS RESULT OUT OF RANGE REFERENCE UNITS LAB L3400.0200 . pg/mL Normal ESTROGEN 4549 199 Result Comment: Prepubertal <40 Female Cycle: 1-10 Days 61 - 394 11-20 Days 122 - 437 21-30 Days 156 - 350 Post-Menopausal <40 HMG Treatment for Ovulation Induction: 400 - 800 Performed at: BN - [facility] [address] [id number] Mother Helper: Marv Rodriguez MD, Phone: [phone] Performed By: #### L3400.0200 #### [facility] (refer to report for specific site) refer to report for address and phone number PROGRESS Observed: 07/22/2017 Status: COMPLETED Source: [place] 12:25 PM [facility] REPOSITORY HNO ID: [id number] Author: Crow Power Service: (none) Author Type: Physician Type: Progress Notes Filed: 07/22/2017 12:42 PM Note Text: The patient was seen for the issues discussed below. Problem list and history reviewed. Allergies reviewed. Medications reviewed. Immunizations reviewed. HISTORY: see history section below PHYSICAL EXAM: GENERAL: alert, well appearing, in no distress HABITUS: Obese LEFT EYE: no drainage noted, no conjunctival injection noted; RIGHT EYE: no drainage noted, no conjunctival injection noted; NO ADDITIONAL EYE FINDINGS LEFT EAR: pinna normal, auditory canal normal, tympanic membrane clear, no effusion noted, RIGHT EAR: pinna normal, auditory canal normal, tympanic membrane clear, no effusion noted NOSE/SINUSES: nares normal, mucosa normal, no drainage noted OROPHARYNX: lips without lesions noted, gums/mucosa normal, oropharynx without erythema or exudates NECK/ADENOPATHY: neck supple, no adenopathy noted CHEST/LUNGS: lungs clear to auscultation CARDIOVASCULAR: regular rate and rhythm, capillary refill less than 2 seconds ABDOMEN: soft, nontender, bowel sounds normal, no masses, no organomegaly, abdomen nondistended SKIN: normal color, no rash, no jaundice, moist mucous membranes, turgor within normal limits GENERAL RECOMMENDATIONS: - Issues discussed in detail. - Symptom relief measures as needed. - Prescriptions, if ordered, are listed below. - Labs and/or X-rays, if ordered or obtained, are listed below. If the final results are not available at the conclusion of this visit, then additional recommendations may be made based on the final results. Note that all x-rays are reviewed by a radiologist before being considered final. - EKG, if ordered or obtained, is reviewed by a veteran appeals reviewer before being considered final. Additional recommendations may be made based on the final results. - Return to clinic should current symptoms (if present) worsen, other problems develop, or as needed. ADDITIONAL AND DICTATED PORTION: ADDITIONAL HISTORY The following Nursing History was reviewed with the family: Patient presents with: Illness: restart medication The patient is here with a desire to restart Zoloft. She is concerned as she feels depression is present. Specific depression screening questionnaire noted in the separate documentation window. No current self-harm thoughts. No suicidal plans. Patient has no history of attempting suicide. The patient was previously on Zoloft 100 mg daily. Medication was discontinued in early 2015. Patient does not recall any side effects from the Zoloft. Patient also has symptoms of anxiety by her history. SCARED Rating Scale Panic/somatic 15 cutoff equals 7 Generalized anxiety 13 cutoff equals 9 Separation 14 cutoff equals 5 Social 10 cutoff equals 8 School avoidance 7 cutoff equals 3 TOTAL 59 cutoff equals 25 No fever. No appetite changes. No activity changes. No eye complaints. No ear complaints. No nose complaints. No throat complaints. No lymph node enlargement. No bruising, excessive bleeding. No chest pain. No wheezing, stridor. No shortness of breath, retractions, tachypnea, cyanosis. (+) cough. Trace. No palpitations. No syncope. No abdominal pain. No vomiting. No diarrhea. No rash. No edema. 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 Depression and generalized anxiety disorder. Discussed in detail. This included etiology, symptoms, and typical treatment. SSRI medications reviewed in detail. Suicide precautions also reviewed. We will restart the patient on Zoloft at 25 mg daily. Patient be seen immediately by a crisis evaluation team in the emergency room for any suicidal ideation. Recheck in the office in 3-4 weeks. Counseling to be started. 2. Trace Cough secondary to a viral syndrome. No evidence of asthma exacerbation. Symptom relief measures. Time, established: Spent approx. 25+ minutes (71968 level) in iikg-pt-trnx contact with the patient and/or family, more than half of which was devoted to discussing the above problems. This note was partially generated using [employer] voice recognition system, and there may be some incorrect words, spellings, and punctuation that were not noted in checking the note before saving. Crow Power M.D. PROGRESS Observed: 07/22/2017 Status: COMPLETED Source: [place] 10:31 AM [facility] REPOSITORY O ID: [id number] Author: Crow Power Service: (none) Author Type: Physician Type: Progress Notes Filed: 07/22/2017 12:42 PM Note Text: Zung Depression Scale Important note: The Zung Self-Rating Depression scale is only a screening tool; it is not a diagnostic device. The result from this scale may indicate the need for further clinical evaluation. Patient instructions: Read each sentence carefully. For eash statement check the response that best corresponds to how often you have felt that way during the past two weeks. For statements 5 and 7, if you are on a diet, answer as if you were not. 1. I feel downhearted, blue and sad. Good part of the time (3) 2. Morning is when I feel the best. * Some of the time (3) 3. I have crying spells or feel like it. Good part of the time (3) 4. I have trouble sleeping through the night. Most or all of the time (4) 5. I eat as much as I used to. * Good part of the time (2) 6. I enjoy looking at, talking to, and being with attractive women/men. * None of the time (4) 7. I notice that I am losing weight. None of the time (1) 8. I have trouble with constipation. Good part of the time (3) 9. My heart beats faster than usual. Some of the time (2) 10. I get tired for no reason. Most or all of the time (4) 11. My mind is as clear as it used to be. * Some of the time (3) 12. I find it easy to do the things I used to do. * Some of the time (3) 13. I am restless and can't keep still. Some of the time (2) 14. I feel hopeful about the future. * None of the time (4) 15. I am more irritable than usual. Most or all of the time (4) 16. I find it easy to make decisions. * Good part of the time (2) 17. I feel that I am useful and needed. * Some of the time (3) 18. My life is pretty full. * Some of the time (3) 19. I feel that others would be better off if I were . Good part of the time (3) 20. I still enjoy the things I used to do. * Some of the time (3) *note- scale reversed Raw score 59 SDS index conversion (raw score= SDS index) 59=74 SDS index Equivalent Clinical Global Impressions Below 50: Within normal range, no psychopathology 50-59 Presence of minimal to mild depression 60-69 Presence of moderate to marked depression 70 and over Presence of severe to exteme depression MD MALIKA Wilson Observed: 07/21/2017 Status: COMPLETED Source: [place] 12:00 AM [facility] REPOSITORY Letter Text Scar [facility] [address], [address] [place] [address] July 21, 2017 Dear Scar White, Below you will find a list of CPT codes that are used for allergy testing. We recommend that you call your health insurance plan prior to your appointment date to verify that these tests are covered. When contacting your insurance to inquire about coverage at our office, please be sure that the insurance is aware that this will be billed as a Hospital Outpatient Setting. The codes are as follows: CPT 00746 - Skin Testing - Percutaneous Allergen Extracts CPT 13960 - Skin Testing - Intradermal Allergen Extracts If you are scheduled for the following breathing tests: CPT 22377 - Spirometry - Pre-bronchodilator CPT 71902 - Spirometry - Post-bronchodilator CPT 23941 - Exhaled Nitric Oxide CPT 99474 - Penicillin Testing Your health insurance plan may also request a diagnosis code. These are as follows: J30.1- Allergic Rhinitis J31.0 - Chronic Rhinitis J45.909 - Asthma The health insurance plan will inform you if you have either a co-payment due or if there is a deductible. The co-payment will be due at the time of the visit. Also, please bring your current health plan insurance card so it can be verified and updated in our system. Sincerely, Department of Allergy AND Clinical Immunology [facility] Instructions for Your Appointment If you are currently taking any of the following medications that contain antihistamines, stop taking the medication 5 days prior to your appointment: Lorrie (fexofenadine) Clarinex (desloratadine) Claritin/Alavert (loratadine) Xyzal (levocetirizine) Zyrtec (cetirizine) Patanase (olopatadine hydrochloride) Atarax (hydroxyzine) Aller-Chlor/ChlorTabs (chlorpheniramine) Astelin nasal spray Astepro nasal spray Dymista nasal spray If you are taking Silenor (doxepin) or Elavil (amitriptyline), please stop 48 hours prior to appointment if prescribing physician allows. You may use Benadryl up to 48 hours prior to your appointment. If you are taking antihistamines for hives or rash, you may continue taking the antihistamine and the doctor will consider alternative testing if necessary. Please bring a list of medications that you are taking. Your appointment may last 1-2 hours. OPERATIVE REPORT Observed: 07/09/2017 Status: F Source: [place] 6:52 AM [facility] REPOSITORY [facility] Medical Records Department [address] [place] [address] Operative Report 07/08/17 1658 MR#: [id number] Acct: [id number] Name: SCAR WHITE Rep #: [id number] : 1995 21 From: Umang Lomas MD PCP: Crow Power MD Status: [facility] Y Location: [place] [address] Problem List (1) Paratubal cyst Status: Chronic Report of Operation Date of Procedure: 07/08/17 Pre-Operative Diagnosis: Left adnexal cyst Post-Operative Diagnosis: Left paratubal cyst Surgery/Procedure Performed:: Lapraoscopic left paratubal cystectomy Description of Surgical Findings:: Left fallopian tube with multiloculated simple paratubal cysts with 3 ditinct compartments. Largest about 8 cm in size. Fluid within the cysts clear. Normal appearing left and right ovaries, normal uterus flat surfacer: Christopher Coronado Type of Anesthesia:: General Anesthesiologist: Nain Ocampo Specimen's removed: left paratubal cyst Drains: none Estimated Blood Loss (mL): minimal Fluids Replaced: 1000cc Description of Procedure: Scar was taken to the OR with IV running. She was given clindamycin and gentamicin intravenously as surgical prophylaxis. General anesthesia was then introduced without complication. She was prepped and draped in the dorsal lithotomy position. SCDs were in place and operational throughout the case. A red rubber catheter was then used to drain the bladder. An acorn type uterine manipulator was placed. Attention was then directed toward the abdomen where a 10mm incision was made in the lower base of the umbilicus. The underlying subcutaneous tissue was dissected down to the level of fascia using a Lorraine clamp. The abdomen was then elevated and a Veress needle was placed through this defect. The abdomen was then inflated with CO2 gas to a pressure of 15 Torr. The Veress need was removed and replaced with a 5 mm trocar and sleeve. The trocar was removed and replaced with the laparoscope. Two additional 5 mm ports were placed under direct visualization with the laparoscope. One approximately 4 cm below the level of the umbilicus lateral to the epigastric vessels and the other in the midline mcfp between the umbilicus and the symphysis pubis. A thorough survey of the abdomen and pelvis was performed. This was difficult due to the patients habitus. The left fallopian tube was noted to have 3 large fluid filled cysts originating in the paratubal area. Using the suction cathode builder with a needle tip the cysts were aspirated. The was noted to be some adhesions between the bowel and the cyst vargas. The paratubal cysts were then carefully dissected from the fallopian tube, bowel, and left pelvic sidewall. A 12 mm trocar was placed in the umbilicus to accomodate the endocatch. The cyst wall was then removed with the endocatch. The left fallopian tube and ovary appeared intact. The surgical sites appeared hemostatic. The port sites were then removed with visualization of the laparoscope. The gas was evacuated. A deep suture of 0-vicryl was placed in the deep umbilical tissue and the skin incisions were closed with 4-0 Monocryl suture. The incision sites were injected with 0.25% Marcaine. Sponge, lap, and needle counts were correct. The uterine manipulator was removed. She was reversed from anesthesia and taken to the recovery room in stable condition. - Complications none - Admit VTE Documentation VTE Present on Admission: No VTE Mechan Device Prophylaxis: SCD's VTE Pharm Prophylaxis ordered?: No 07/09/17 0652 <Electronically signed by Umang Lomas MD> Date Umang Lomas MD CC: Umang Lomas MD; Crow Power MD Signed DISCHARGE INSTRUCTION Observed: 07/08/2017 Status: F Source: [place] 7:35 AM [facility] REPOSITORY [facility] Medical Records Department [address] [place] [address] Instructions for Home/Discharge Instructions 07/08/17 0734 MR#: [id number] Acct: [id number] Name: SCAR WHITE Rep #: [id number] : 1995 21 From: Umang Lomas MD PCP: Crow Power MD Status: [facility] You will use the following diet at home:: No restrictions Your food should be the consistency of: Regular Discharge Activity: Return to Normal Activity, May Drive, May not drive while taking narcotic pain medications., May Shower Return to work on:: 07/15/17 May shower in (days): 0 May resume sexual activity in: 4 weeks Call your doctor if your incision/area has: Sudden Increased Bleeding, Increased Pain/ Swelling, Increased Redness, Foul Smelling Discharge, Swelling at the incision site Call your doctor if you observe: Fever of 101 or Higher, Inability to urinate, Inability to have a bowel movement, Using more than one pad per hour, Shortness of breath, Chest pain, Calf discomfort, Uncontrolled pain Remove Dressing in (days):: 2 Cleanse incision/area with: Soap AND Water Allergies/Adverse Reactions: Allergies penicillin V potassium [From Pen-Vee K] Allergy (Mild, Verified 07/07/17 09:33) Rash brompheniramine maleate [From Dimetapp (brompheniramine-PPA)] Allergy (Verified 07/07/17 09:33) Shortness of breath celery Allergy (Verified 07/07/17 09:33) Swelling phenylpropanolamine HCl [From Dimetapp (brompheniramine-PPA)] Allergy (Verified 07/07/17 09:33) Shortness of breath amoxicillin trihydrate [From Augmentin] Adverse Reaction (Intermediate, Verified 07/07/17 09:33) Diarrhea potassium clavulanate [From Augmentin] Adverse Reaction (Intermediate, Verified 07/07/17 09:33) Diarrhea dicyclomine HCl [From Bentyl] Adverse Reaction (Verified 07/07/17 09:33) Nausea/Vom/Diarrhea FRUCTOSE Allergy (Uncoded 07/01/17 22:48) Other plastic tape Allergy (Uncoded 07/01/17 22:48) Rash Medications to take at Discharge Omeprazole [Prilosec] 40 mg PO PRN PRN 03/11/13 Albuterol Inhaler [Ventolin Hfa] 1 - 2 puff INHALATION Q4H PRN PRN #1 inhaler 06/30/15 Albuterol Aerosols [Ventolin Aerosols] 2.5 mg INHALATION Q4H PRN PRN 07/13/16 Epinephrine [Epi Pen] 0.3 mg IM X1 #1 syringe 06/08/17 Beclomethasone Diprop Inhaler [Qvar 80 Mcg Inhaler] 2 puff INHALATION BID 06/29/17 Diclofenac [Voltaren] 75 mg PO BIDCM 06/29/17 Oxycodone HCl/Acetaminophen [Percocet 5-325] 1 tab PO Q6H PRN PRN #8 tab 06/30/17 Sprintec 1 tab PO DAILY 07/07/17 Oxycodone [Oxyir] 10 mg PO Q4H PRN PRN #30 tab 07/08/17 The following prescriptions were given: Oxycodone [Oxyir] 10 mg PO Q4H PRN PRN #30 tab PRN Reason: Severe Pain (6-03/17) Primary Care Physician: Crow Power MD [Primary Care Provider] - Please Follow Up With: Umang Lomas MD When: one week Proposed Discharge Date: 07/08/17 07/08/17 0735 <Electronically signed by Umang Lomas MD> Date Umang Lomas MD CC: Crow Power MD ,SERUM,HCG QUALI. Collected: Status: C Source: [place] 07/08/2017 6:50 AM [facility] REPOSITORY TYPE CODE TESTS RESULT OUT OF REFERENCE UNITS RANGE LAB L700.6700 =>Qualitative mIU/mL Normal HCG Qual < 1 triggr LAB L700.7000 0-9 Nonpreg Negative Normal HCGSQUAL NEGATIVE Performed By: #### L700.6800 #### [facility] [address] [place], [address] OVARY (CHOOSE SIDE) Observed: 07/07/2017 Status: F Source: [place] 12:00 AM [facility] REPOSITORY Patient: SCAR WHITE : 1995 (21/F) Acct Num: [id number] Phys: Abebe MARCH,Umang Unit Num: [id number] Loc: [facility] Specimen: [id number] Received: 07/08/17 - 1045 Spec Type: OVARY TISSUES TISSUES: OVARIAN CYST GROSS DESCRIPTION Received in fixative is one container labeled with the patient's name and designated left ovarian cyst. The specimen consists of a previously opened cyst measuring 8 x 2 x 1.5 cm. The inner and outer cyst vargas do not show any papillation. The external surface is inked. A focal area of cyst shows it is filled with clear fluid. No normal ovarian tissue is identified. Also present in the container is a tubular piece of pacheco soft tissue consistent with fallopian tube measuring 2.5 cm in length and 0.9 cm in diameter. Sections reveal unremarkable cut surfaces. Computer Art Instructor sections are submitted in four cassettes as follows: 13 cyst, 4 fallopian tube, entirely submitted. / SJ: natasha 07/08/17 TC:5 CPT: 21989 HEADER OPERATION: Laparoscopic ovarian cystectomy PRE-OP DIAGNOSIS: Benign neoplasm of left ovary TISSUE SUBMITTED: Left ovarian cyst MICROSCOPIC DESCRIPTION Slides are reviewed. MICROSCOPIC DIAGNOSIS Left ovary and fallopian tube, salpingo-oophorectomy: Serous cystadenoma. Fallopian tube with no pathologic change. AM:natasha 07/09/17 Signed Ricki Sen 07/09/17 <signature on file> Performed By: #### POV #### [facility] [address] [place], [address] CBC-COMPLETE BLOOD CNT Collected: 07/06/2017 Status: F Source: [place] NO DIFF 8:57 AM [facility] REPOSITORY TYPE CODE TESTS RESULT OUT OF RANGE REFERENCE UNITS LAB L100.1000 4.4-11.0 K/mm3 High WBC 11.9 LAB L100.1200 4.2-5.4 M/mm3 Normal RBC 4.64 LAB L100.1300 12.0-15.0 g/dl Low HGB 11.4 LAB L100.1400 37-47 % Normal HCT 37.6 LAB L100.1500 81-99 fL Normal MCV 81.0 LAB L100.1600 27.0-32.0 pg Low MCH 24.6 LAB L100.1700 32-36 g/gl Low MCHC 30.3 LAB L100.1810 11.6-14.6 % High RDW CV 15.2 LAB L100.1820 35.1-43.9 fl High RDW SD 44.4 LAB L100.1900 150-450 K/mm3 Normal PLT 433 LAB L100.2000 6.2-12.0 fl Normal MPV 10.0 Performed By: #### L100.0500 #### [facility] [address] [place], [place], [address] PROTHROMBIN TIME W/INR Collected: 07/06/2017 Status: F Source: [place] 8:57 AM [facility] REPOSITORY TYPE CODE TESTS RESULT OUT OF RANGE REFERENCE UNITS LAB L300.4150 11.7-14.9 SECONDS Normal PROTIME 13.5 LAB L300.4200 Normal INR 1.1 Performed By: #### L300.3900, L300.4310 #### [facility] [address] [place], [address] PARTIAL THROMBOPLAST Collected: 07/06/2017 Status: F Source: [place]ENY[place] TIME 8:57 AM [facility] REPOSITORY TYPE CODE TESTS RESULT OUT OF RANGE REFERENCE UNITS LAB L300.4310 24.1-36.2 Seconds Normal PTT 32.0 Performed By: #### L300.3900, L300.4310 #### [facility] [address] [place], [address] ,SERUM,HCG QUALI. Collected: Status: F Source: KEN[place] 07/06/2017 8:57 AM [facility] REPOSITORY TYPE CODE TESTS RESULT OUT OF REFERENCE UNITS RANGE LAB L700.7000 0-9 Nonpreg Negative Normal HCGSQUAL NEGATIVE LAB L700.6700 =>Qualitative mIU/mL Normal HCG Qual < 1 triggr Performed By: #### L700.6800 #### [facility] [address] [place], [address] TYPE AND SCREEN Collected: 07/06/2017 Status: F Source: [place]EN[place] 8:57 AM [facility] REPOSITORY Order Comment: Surgery Date: 07/08/17 Hx of Preganancy in last 3 Months No Ever experience any problems with transfusion(s)? N Hx of Transfusion in last 3 Months N Reason for Type AND Screen/Red Cells: SURGERY SURGICAL PROCEDURE: LAP TYPE CODE TESTS RESULT OUT OF RANGE REFERENCE UNITS LAB B10.0800 A Normal BLOOD TYPE GEL NEGATIVE LAB B100.4000 Normal Antibody NEGATIVE Screen Performed By: #### B101.7475 #### [facility] [address] [place], [address] ALLERGIES ALLERGIES DATE TYPE / CODE NAME / CODE REACTION SEVERITY SOURCE 06/25/19 Drug dicyclomine Nausea/Vom/Di Unknown [facility] 19 Allergy/246768114 HCl/L891788706(RXNORM) arrhea [facility] (SNOMED CT) Hospital Repository 06/25/19 Drug phenylpropanolamine Shortness of Unknown [facility] 19 Allergy/059149586 HCl/U904019000(RXNORM) breath [facility] (SNOMED CT) Hospital Repository 06/25/19 Drug penicillin V Rash PR [facility] 19 Allergy/489206692 potassium/N619618321(RX [facility] (SNOMED CT) NORM) Hospital Repository 06/25/19 Drug amoxicillin Diarrhea [place] [facility] 19 Allergy/496382917 trihydrate/H939080447(R [facility] (SNOMED CT) XNORM) Hospital Repository 06/25/19 Drug potassium Diarrhea MO [facility] 19 Allergy/190738754 clavulanate/M550690414( [facility] (SNOMED CT) RXNORM) Hospital Repository 06/25/19 Drug brompheniramine Shortness of Unknown [facility] 19 Allergy/227816185 maleate/Q852704076(RXNO [facility] Repository 06/25/19 Drug celery/U595595870(RXNOR Swelling Unknown [facility] 19 Allergy/837993989 M) [facility] (SNOMED CT) Hospital Repository 06/25/19 Miscellaneous FRUCTOSE Other Unknown [facility] 19 Allergy/936877767 [facility] (SNOMED CT) Hospital Repository 06/25/19 Miscellaneous plastic tape Rash Unknown [facility] 19 Allergy/738659908 [facility] (SNOMED CT) Hospital Repository 04/23/20 DRUG CELERY OTHER: SEE [facility] 16 INGREDI/932743070 [facility] (SNOMED CT) [place] Repository 01/18/20 DRUG FRUCTOSE OTHER: SEE [facility] 14 INGREDI/749078292 [facility] (SNOMED CT) [place] Repository 07/19/19 DRUG DICYCLOMINE HCL Vomiting [facility] INGREDI/086271844 [facility] (SNOMED CT) [place] Repository 12/16/19 DRUG/646332701(SN AMOXICILLIN-POT DIARRHEA [facility] [address]) CLAVUL[address] [facility] [place] Repository 09/05/19 Drug PENICILLINS RASH [facility] 12 Class/943275073(S [facility] NOMED CT) [place] Repository 05/17/20 DRUG/184245477(SN BROMPHENIRAMINE-PSEUDOE [facility] [address]) PHEDRIN [facility] [place] Repository ENCOUNTERS ENCOUNTERS ADMIT/DISCHARGE ACCOUNT ADMITTING ENCOUNTER LOCATION SOURCE NUMBER CLASS 06/25/2018/06/25/19 [id number] Emergency Lidia [facility] ing:ED Repository 06/24/2018/06/25/19 [id number] Ambulatory [address] Main [place] Repository 06/22/2018/06/22/19 [id number] Ambulatory [address] Main [place] Repository 06/22/2018/06/23/19 [id number] Ambulatory [address] Main [place] Repository 06/14/2018/06/15/19 [id number] Ambulatory [address] [place] Repository 05/11/2018/05/12/20 [id number] Ambulatory [address] [place] Repository 04/19/2018/04/20/20 [id number] Ambulatory [address] Main [place] Repository 04/14/2018/04/14/20 [id number] Ambulatory [address] Main [place] Repository 04/14/2018/04/15/20 [id number] Ambulatory [address] Main [place] Repository 01/07/2018/01/08/20 [id number] Ambulatory [address] Main [place] Repository 01/07/2018/01/15/20 [id number] Ambulatory [address] Main [place] Repository 01/02/2018/01/04/20 [id number] Emergency Lidia[address] ing:ED Repository 12/31/2017/01/01/20 [id number] Ambulatory [address] Main [place] Repository 12/22/2017/12/23/19 [id number] Ambulatory [address] Main [place] Repository 12/13/2017/12/15/19 [id number] Ambulatory [address] [place] Repository 12/10/2017/12/11/19 [id number] Ambulatory [address] Repository 11/01/2017/11/03/19 [id number] Emergency Lidia[address] ing:ED Repository 11/01/2017/11/04/19 [id number] Ambulatory [address] Main [place] Repository 10/12/2017/10/14/19 [id number] Ambulatory [address] Main [place] Repository 09/13/2017/09/16/19 [id number] Ambulatory [address] [place] Repository 08/25/2017/08/27/19 [id number] Ambulatory [address] Main [place] Repository 08/14/2017/08/18/19 [id number] Ambulatory [address] Repository 08/12/2017 [id number] Ambulatory [facility] ing:WOBLAB Repository 07/22/2017/07/23/19 [id number] Ambulatory [address] Main [place] Repository 07/08/2017/07/08/19 [id number] Ambulatory [address] ing:SDCRoom: Repository AC08 PAYERS PAYERS ENCOUNTER GUARANTOR PAYER SUBSCRIBER SOURCE 06/25/2018 SCAR CARO [place] HAVENDOB: Lidia [id number] [id number] [address]Alz: [phone]) [id number] Repository [phone] () Date:6596-78-32[address]UO[address]AN[address] DELACRUZ [address]VB: 06/25/2018 Secondary NOT GIVENUNK [facility] Insurance:SELF PAY [facility] Number: Effective Repository Date:2018-06-25 01/02/2018 [facility] GORDO Murillo [id number] Insurance:[place]HEMPolic [place] Number: [id number] [address]Trx: [phone]) [id number] Repository [phone] () Date:1509-99-86[address] [address]SJ: 01/02/2018 Secondary NOT GIVENUNK [facility] Insurance:SELF PAY [facility] Number: Effective Repository Date:2018-01-02 11/01/2017 [facility] GORDO Murillo [id number] Insurance:ANTHEMPolic [place]: [id number] [address]Nlh: [phone]) [id number] Repository [phone] () Date:5775-48-11[address] [address]UG: 11/01/2017 Secondary NOT GIVENUNK [facility] Insurance:SELF PAY [facility] Number: Effective Repository Date:2017-11-01 08/12/2017 Scar Murillo [id number] Insurance:ANTHEMPolic [place]: [id number] [id number]: [phone]) [id number] Repository [phone] () Date:0415-78-12ZT [address] [address]GC: 08/12/2017 Secondary NOT GIVENUNK Lidia Insurance:SELF PAY [facility] Number: Effective Repository Date:2017-08-12 07/08/2017 Scar Murillo [id number] Insurance:ANTHEMPolic H[place]OB: [place] Number: [id number] [address]Dfd: [phone]) [id number] Repository [phone] () Date:4330-46-84[address], [place] [address]IN: 07/08/2017 Secondary NOT GIVENUNK [facility] Insurance:SELF PAY [facility] Number: Effective Repository Date:2017-07-02
== END 2018-06-25 17:31 | disposition home or self-care (01) ==
PROVIDERS: Emergency Provider Emergency Medicine; Family Provider Pediatrics; PCP Pediatrics
DX: J45.901 Unspecified asthma with (acute) exacerbation (principal); E11.9 Type 2 diabetes mellitus without complications; E28.2 Polycystic ovarian syndrome; Z79.84 Long term (current) use of oral hypoglycemic drugs; Z79.51 Long term (current) use of inhaled steroids; Z79.52 Long term (current) use of systemic steroids
CPT/HCPCS: 71045; 80048; 84484; 85025; 93005; 94640; 96374; 99284; A4216

== ENCOUNTER 2018-12-27 07:15 | Emergency (ER) | payer OTHER, SELFPAY ==
[2018-12-27 07:17] VITALS: BP 128/87; PULSE 87; RESP 17; TEMP 37; O2SAT 96; BMI 67.2
--- NOTE | 2018-12-27 07:29 | CT_ITS ---
STUDY: CT ABDOMEN AND PELVIS WITHOUT CONTRAST REASON FOR EXAM: Female, 23 years old. Right lower quadrant pain RADIATION DOSAGE (If Supplied By Facility): CTDIvol = ( 33.88 ) mGy, DLP = ( 1896.06 ) mGycm TECHNIQUE: Transaxial images were obtained from the dome of the diaphragm to the symphysis pubis without oral contrast, and without intravenous contrast. Sagittal and coronal images were reconstructed. Individualized dose optimization techniques were used for this CT. COMPARISON: 01/03/2018 FINDINGS: The visualized lung bases are unremarkable. The visualized portions of the heart are within normal limits. There is decreased attenuation of the liver consistent with steatosis. There are surgical clips in the gallbladder fossa consistent with a prior cholecystectomy. Normal spleen. Normal pancreas. There is a stable 2.6 cm low attenuation left adrenal mass, consistent with an adrenal adenoma. Normal right adrenal gland. No obstructive uropathy, stable 5 mm stone in the lower pole of the right kidney Normal visualized stomach. Normal small intestine. Normal colon. The appendix is visualized and appears normal. Appendix best seen on coronal recon images 78-82 Normal abdominal aorta. Normal inferior vena cava. Normal retroperitoneum. Normal urinary bladder. Normal-appearing uterus. There are bilateral ovarian cysts, right measures 3.96 cm, left measures 7.5 cm. Normal abdominal wall. Normal osseous structures. CT/Abdomen/Pelvis without Cont IMPRESSION: No CT evidence of an acute inflammatory process, normal appendix visualized. Bilateral prominent ovarian cysts, right measures 3.96 cm, left 7.5 cm. Fatty liver Stable left adrenal adenoma Nonobstructing right nephrolithiasis Electronically Signed: Declan Dinh MD at 9:25 EDT , Service support ,
[2018-12-27] MEDS: 0.9% Normal Saline 1,000 ML 125 ML IV (08:03)
[2018-12-27] MEDS: Ondansetron 4 MG/2 ML Vial IV ×2 (08:03→10:48)
[2018-12-27] MEDS: Ketorolac 30 MG/ML Syringe IV (08:03)
[2018-12-27 08:10] LABS: Absolute Lymphocyte Count 3.05 X10^3/uL (0.83-4.51); Absolute Neutrophil Count 9.3 X10^3/uL (2.0-7.7); Basophil# 0.08 X10^3/uL; Basophil% 0.6 % (0-1); Eosinophil# 0.46 X10^3/uL; Eosinophils% 3.3 % (0-5); Hematocrit 37.6 % (37-47); Hemoglobin 11.5 g/dL (12.0-15.0); Lymphocyte # 3.05 X10^3/ul (4.0); Lymphocyte % 22.1 % (19-41); Mean Corp Hgb Conc 30.6 g/dL (32-36); Mean Corpuscular Hgb 24.9 pg (27.0-32.0); Mean Corpuscular Volume 81.4 fL (81-99); Mean Platelet Vol. 9.6 fl (6.2-12.0); Monocyte% 5.8 % (0-10); NRBC Flagged by Analyzer 0 % (0-5); Neutrophil # 9.29 X10^3/uL (2.7-7.7); Neutrophil % 67.5 % (47-70); Platelet Count 335 K/mm3 (150-450); RBC Distribution Width CV 15.5 % (11.6-14.6); RBC Distribution Width SD 45.5 fl (35.1-43.9); Red Blood Count 4.62 M/mm3 (4.2-5.4); White Blood Count 13.8 K/mm3 (4.4-11.0)
[2018-12-27 08:20] LABS: Anion Gap 9 (5-15); BUN 10 mg/dL (7-18); BUN/Creat Ratio 16.4 RATIO (10-20); Calcium,Total 8.9 mg/dL (8.5-10.1); Chloride 103 mmol/L (98-107); Creatinine, Serum 0.61 mg/dL (0.55-1.02); EST Glomerular Filtration Rate 131 mL/min (>60); Est Glom Filt Rate - Afr Amer 159 mL/min (>60); Estimated Creatinine Clearance 147.16 ml/min; Glucose 158 mg/dL (74-106); Sodium Level 139 mmol/L (136-145)
[2018-12-27 08:35] LABS: Internal QC Validated? YES +Cl - CLEAR BKGD; Pregnancy, Serum, hCG Quali. NEGATIVE Negative
[2018-12-27 09:27] VITALS: RESP 18
[2018-12-27 10:10] LABS: Mucous, Urine 0 SEEN /hpf (<or=2+)
[2018-12-27 10:15] LABS: Color, Urine Yellow (Yellow); Glucose, Dipstick Normal (Normal); Ketone-Dipstick Negative (Negative); Leukocyte Esterase-Dipstick 100 /ul (Negative); Nitrite-Dipstick Negative (Negative); Occult Blood-Urine 10 /ul (Negative); Protein-Dipstick Negative (Negative); Specific Gravity, Urine 1.015 (1.002-1.030); Urine Bilirubin Dipstick Negative (Negative); Urine Clarity Sl. Cloudy (Clear); Urine Urobilinogen Normal (Normal); Urine pH 6.5 (5.0 - 8.0)
[2018-12-27 10:24] LABS: Bacteria 1+ /hpf (None Seen); Red Blood Cells-Urine 0-5 SEEN /hpf (0-5); Squamous Epithelial Cells - UA 0-5 SEEN /hpf (5-10); White Blood Cells 0-5 SEEN /hpf (0-5)
--- NOTE | 2018-12-27 10:41 | US_ITS ---
STUDY: ULTRASOUND OF THE FEMALE PELVIS - COMPLETE REASON FOR EXAM: Female, 23 years old. Right pelvic pain LMP: TECHNIQUE: Transabdominal and Transvaginal TECHNICAL QUALITY: Adequate. COMPARISON: 07/01/2017 FINDINGS: The uterus is anteverted and is in a midline position. The uterus measures 8.5 x 3.9 x 3.6 cm. Normal uterine cervix. The endometrium measures 3.9 mm in thickness, and is hyperechoic. There is no demonstrated endometrial mass. There is no demonstrated myometrial mass. I.U.D. - The patient does not have an I.U.D. The right ovary is visualized. The right ovary measures 4.6 x 2.8 x 2.1 cm. There is no right ovarian cyst or ovarian mass. There is no visualized right adnexal mass or complex lesion. There is normal arterial and normal venous vascularity. The left ovary is visualized. The left ovary measures 7.1 x 8.5 x 6.6 cm. There is a simple 6.1 cm cyst.. There is normal arterial and normal venous vascularity. There is no fluid in the cul-de-sac. The bladder sonographically normal US/Pelvic (Non ) IMPRESSION: Simple 6.1 cm left ovarian cyst, otherwise unremarkable pelvic ultrasound. Electronically Signed: Declan Dinh MD at 12:52 EDT , Service support ,
[2018-12-27] MEDS: Morphine 4 MG/ML Syringe IV (10:49)
[2018-12-27 11:07] VITALS: RESP 16
--- NOTE | 2018-12-27 12:59 | ED.VISSUMM ---
- ER Visit Summary Date of Service: 12/27/18 Chief Complaint: [Abdominal pain] History of Present Illness: The patient is a 23 F [presents to the emergency room with abdominal pain that started yesterday. Patient has continuous right lower quadrant pain that she rates as an 8 out of 10. She describes it as sharp. Patient had nausea and vomiting with it x4. She denies any urinary symptoms. Patient has not had fevers. She does have history of PCOS as well as asthma and type 2 diabetes. Patient has had prior cholecystectomy.] Physical Examination: HEENT-PERRLA, EOMI. Cranial nerves II through XII grossly intact. TMs clear. Mucous membranes moist. No adenopathy. Cardiovascular-regular rate and rhythm without murmur or ectopy Lungs-clear to auscultation, chest wall stable without crepitus or subcu emphysema Abdomen-normoactive bowel sounds, soft. Patient has tenderness palpation of the right lower quadrant over McBurney's. There is guarding. There is no rebound, rigidity, or perineal signs. Extremities-intact ?4, normal range of motion, normal pulses, atraumatic [] Test Results: [CBC with differential obtained showed an elevated white blood cell count of 13.8, hemoglobin 11.5, hematocrit 38, platelets 335. Chemistries unremarkable. Urinalysis was normal. hCG was negative. CT flank showed nothing acute and a normal appendix. Ultrasound of the pelvis showed normal blood flow to both ovaries and she had a left-sided ovarian cyst measuring 6.1 cm.] Emergency Department Course and Treatment: [She initially medicated with Toradol but did not receive much pain relief with that and she was given 4 mg of morphine 4 mg of Zofran which did give her good pain relief.] Treatment Plan: [Patient to follow-up with her INTEGRATION DIRECTOR within next 5 to 7 days. Patient advised to return if worsening pain, fever, vomiting, dehydration, or conditions worsen anyway.] Disposition: [Discharged to home in stable condition.] Impression: [Abdominal pain-etiology uncertain] This note was generated with [employer] software. It may contain incorrect words, spelling, and punctuation that were not noted in review of the chart prior to signing ED Disposition - Plan for ED Patient: Referrals: Miguelito Unger MD [Primary Care Provider] -
--- NOTE | 2018-12-27 13:03 | DCINST.ED_ITS ---
ED Disposition - Plan for ED Patient: Instructions: ABDOMINAL PAIN, Unknown Cause, (Female) Prescriptions: Hydrocodone Bitart/Apap 5-325 [[place] 5MG-325MG] 1 tab PO Q4H PRN PRN 2 Days #10 tab PRN Reason: Pain Prescription Printed Referrals: Miguelito Unger MD [Primary Care Provider] - Lluvia Márquez MD [STAFF PHYSICIAN] - 5-7 Days
== END 2018-12-27 13:20 | disposition home or self-care (01) ==
LOC: ED 07:33
PROVIDERS: Emergency Provider Emergency Medicine; Family Provider Family Medicine; PCP Family Medicine
DX: N83.202 Unspecified ovarian cyst, left side (principal); R10.31 Right lower quadrant pain; E11.9 Type 2 diabetes mellitus without complications; J45.909 Unspecified asthma, uncomplicated; E28.2 Polycystic ovarian syndrome; Z79.51 Long term (current) use of inhaled steroids; Z79.84 Long term (current) use of oral hypoglycemic drugs; Z79.899 Other long term (current) drug therapy
CPT/HCPCS: 74176; 76856; 80048; 81001; 84703; 85025; 93976; 96361; 96374; 96375; 96376; 99283; J7030; A4216; J2405

== ENCOUNTER 2018-12-29 09:31 | Emergency (ER) | payer OTHER, SELFPAY ==
[2018-12-28 15:42] VITALS: BMI 67.2
[2018-12-29 09:35] VITALS: BP 163/81; PULSE 89; RESP 18; TEMP 36.9; O2SAT 99; BMI 66.9
--- NOTE | 2018-12-29 09:52 | US_ITS ---
STUDY: ULTRASOUND OF THE FEMALE PELVIS - COMPLETE REASON FOR EXAM: Female, 23 years old. Pelvic pain and fullness LMP: 11/25/2018 TECHNIQUE: Transabdominal and Transvaginal TECHNICAL QUALITY: Adequate. COMPARISON: 12/27/2018 FINDINGS: The uterus is anteverted and is in a midline position. The uterus measures 7.9 x 4.4 x 3.1 cm. Normal uterine cervix. The endometrium measures 4.5 mm in thickness, and is hyperechoic. There is no demonstrated endometrial mass. There is no demonstrated myometrial mass. I.U.D. - The patient does not have an I.U.D. the gas derrick operator notes a nonspecific increased vascularity to the cervix. The right ovary is visualized. The right ovary measures 3.8 x 3.4 x 2.6 cm. There is no right ovarian cyst or ovarian mass. There is no visualized right adnexal mass or complex lesion. There is normal arterial and normal venous vascularity. The left ovary is visualized. The left ovary measures 4.6 x 2.2 x 2.7 cm cm. There is no left ovarian cyst or ovarian mass. There is no visualized left adnexal mass or complex lesion. There is normal arterial and normal venous vascularity. Previously noted left ovarian cyst has resolved. There is no fluid in the cul-de-sac. The bladder is sonographically normal US/Transvaginal Non- IMPRESSION: No suspicious sonographic findings, previous noted left ovarian cyst has resolved Electronically Signed: Declan Dinh MD at 11:07 EDT , Service support ,
--- NOTE | 2018-12-29 09:53 | ED.DCSUM_ITS ---
- ER Visit Summary Date of Service: 12/29/18 Chief Complaint: Pelvic pain History of Present Illness: The patient is a 23 F who states that she was sent to the emergency department to rule out ovarian torsion. She was diagnosed with a 6 cm ovarian cyst on the left ovary. She notes continued pain but states the pain is more severe. She has been taking Pauline and Zofran. No fevers. She saw Francy Yi in the office yesterday for follow-up from Mondays emergency department visit. Physical Examination: Afebrile vital signs are stable Gen: Well-nourished well-developed morbidly obese Head: Normocephalic atraumatic Eyes: Perrl EOMI ENT: TMs clear no rhinorrhea moist mucous membranes Neck: Supple no lymphadenopathy no JVD nontender CVS: Regular rate rhythm no murmurs normal S1-S2 Respiratory: No distress clear to auscultation bilaterally chest nontender Abdomen: Soft nontender nondistended normal bowel sounds no masses Back: Nontender Extremity: Nontender no edema Skin: Normal color no rash Neuro: alert orientated ?3 CN II-XII intact normal strength sensation reflexes g ait cerebellar Psych: Normal affect normal mood Test Results: Pelvic ultrasound was obtained. This demonstrates that the ovarian cyst has resolved. Emergency Department Course and Treatment: She received a dose of Toradol. I wonder if the patient's cyst ruptured and that is why she had an increase in pain. I updated her RECEIVABLE EXECUTIVE. Impression: 1. Acute pelvic pain This note was generated with [employer] dictation software. It may contain incorrect words, spelling, and punctuation that were not noted in review of the chart prior to signing ED Disposition - Plan for ED Patient: Instructions: Ovarian Cyst Referrals: Lluvia Márquez MD [STAFF PHYSICIAN] - Keep Amy appointment
[2018-12-29] MEDS: Ketorolac 60 MG/2 ML Vial IM (11:34)
[2018-12-29 12:22] VITALS: BP 150/64; PULSE 89; RESP 17; O2SAT 96
[2018-12-29 12:46] VITALS: BP 127/66; PULSE 71; RESP 15; O2SAT 100
== END 2018-12-29 12:47 | disposition home or self-care (01) ==
LOC: ED 10:47
PROVIDERS: Emergency Provider Emergency Medicine; Family Provider Family Medicine; PCP Family Medicine
DX: R10.2 Pelvic and perineal pain (principal); E28.2 Polycystic ovarian syndrome; E66.01 Morbid (severe) obesity due to excess calories; Z79.84 Long term (current) use of oral hypoglycemic drugs
CPT/HCPCS: 76830; 96372; 99282

== ENCOUNTER 2018-12-29 13:22 | Outpatient (RCR) | payer OTHER, SELFPAY ==
[2018-12-28 13:20] VITALS: BMI 67.5
[2018-12-29 09:35] VITALS: BMI 66.9
== END 2019-01-05 23:59 ==
LOC: NS 13:22
PROVIDERS: Family Provider Family Medicine; PCP Family Medicine; Visit Provider Nurse Practitioner Women's Health
DX: E11.9 Type 2 diabetes mellitus without complications (principal); E66.3 Overweight; Z71.3 Dietary counseling and surveillance
CPT/HCPCS: 97802

== ENCOUNTER 2019-02-03 15:00 | Outpatient (RCR) | payer OTHER, SELFPAY | END 2019-02-05 23:59 | LOC: DC 15:00 | PROVIDERS: Family Provider Family Medicine; PCP Family Medicine; Visit Provider Nurse Practitioner Women's Health | DX: E11.9 Type 2 diabetes mellitus without complications (principal); E66.3 Overweight; Z68.44 Body mass index [BMI] 60.0-69.9, adult; Z71.3 Dietary counseling and surveillance | CPT/HCPCS: 97803; G0108 ==

== ENCOUNTER 2019-02-10 11:24 | Emergency (ER) | payer OTHER, SELFPAY ==
[2019-02-10 11:25] VITALS: BP 168/114; PULSE 102; RESP 18; TEMP 37.1; O2SAT 94; BMI 65.9
--- NOTE | 2019-02-10 11:48 | CT_ITS ---
STUDY: CT ABDOMEN AND PELVIS WITH CONTRAST REASON FOR EXAM: Female, 23 years old. Bloody diarrhea. Lower abdominal pain with nausea. RADIATION DOSAGE (If Supplied By Facility): CTDIvol = ( 19.38 ) mGy, DLP = ( 1970.18 ) mGycm TECHNIQUE: Transaxial images were obtained from the dome of the diaphragm to the symphysis pubis with oral contrast. 100CC IV/Oral Isovue 300 was administered. Sagittal and coronal images were reconstructed. Individualized dose optimization techniques were used for this CT. COMPARISON: Comparison is made with prior study dated December 27, 2018. FINDINGS: The visualized lung bases are unremarkable. The visualized portions of the heart are within normal limits. There is decreased attenuation of the liver consistent with steatosis. There are surgical clips in the gallbladder fossa consistent with a prior cholecystectomy. Normal spleen. Normal pancreas. There is a small, circumscribed, smooth, low attenuation left adrenal mass, consistent with an adrenal adenoma. This is unchanged. Normal right adrenal gland. 3.5 mm nonobstructive calculus in the lower pole calyx of the right kidney. Normal left kidney. Normal visualized stomach. Normal small intestine. Normal colon. The appendix is visualized and appears normal. Normal abdominal aorta. Normal inferior vena cava. There is borderline retroperitoneal lymphadenopathy with enlarged nodes no greater than 10mm in the short axis diameter. Normal urinary bladder. There is a 7.4 cm x 6.5 cm x 6.8 cm cyst in the left ovary. Follicles are seen in the right ovary. Normal abdominal wall. Normal osseous structures. CT/Abdomen/Pelvis WITH Contrast IMPRESSION: Left ovarian cyst. This is essentially unchanged. Stable 3.5 mm nonobstructive calculus in the lower pole of the right kidney. Stable 2.5 cm adenoma and left adrenal gland. Electronically Signed: Geovanni Retana, at 14:29 EDT , Service support ,
[2019-02-10] MEDS: 0.9% Normal Saline 1,000 ML 1000 ML IV (12:13)
[2019-02-10] MEDS: Ondansetron 4 MG/2 ML Vial IV (12:14)
[2019-02-10] MEDS: Morphine 4 MG/ML Syringe IV (12:15)
[2019-02-10 12:23] LABS: Absolute Lymphocyte Count 2.71 X10^3/uL (0.83-4.51); Basophil# 0.06 X10^3/uL; Basophil% 0.4 % (0-1); Eosinophil# 0.33 X10^3/uL; Eosinophils% 2.2 % (0-5); Hemoglobin 11.9 g/dL (12.0-15.0); Lymphocyte # 2.71 X10^3/ul (4.0); Mean Corp Hgb Conc 30.5 g/dL (32-36); Mean Corpuscular Hgb 24.8 pg (27.0-32.0); Mean Corpuscular Volume 81.4 fL (81-99); Mean Platelet Vol. 9.5 fl (6.2-12.0); Monocyte# 0.82 X10^3/uL; Monocyte% 5.5 % (0-10); NRBC Flagged by Analyzer 0 % (0-5); Neutrophil # 11.01 X10^3/uL (2.7-7.7); Neutrophil % 73.2 % (47-70); Platelet Count 390 K/mm3 (150-450); RBC Distribution Width CV 15.3 % (11.6-14.6); RBC Distribution Width SD 44.7 fl (35.1-43.9); Red Blood Count 4.79 M/mm3 (4.2-5.4)
--- NOTE | 2019-02-10 12:28 | ED.VISSUMM ---
- ER Visit Summary Date of Service: 02/10/19 Chief Complaint: Abdominal pain, nausea, vomiting, diarrhea History of Present Illness: The patient is a [address] Unger and Dr. Vishnu Young. She reports that she has lower abdominal pain that began 3 days ago. Is a constant aching, sharp pain. It is 10 out of 10 at worst an 8 out of 10 currently. Is worsened by movement and relieved by nothing. She reports she is been nauseated vomited 4 times. No blood or emesis. She reports that she has diarrhea that began today. She had 3 episodes and this is bloody. She denies any dysuria or frequency. She just finished her last menstrual period. She denies any vaginal bleeding or discharge. No family history of Crohn's disease or ulcerative colitis. She has never had a colonoscopy. She had an endoscopy by Dr. Watson. Patient denies sick contacts. Has not been camping out of the country. No possible bad food exposure. Does not drink well water. Was placed on Keflex 2 days ago for possible UTI and took this for 2 days. She is no longer taking this. Physical Examination: Vitals: Stable. Afebrile. General: Well-nourished and well-developed. Head: Normocephalic atraumatic. Neck: Supple, no lymphadenopathy. No JVD. Nontender. Cardiovascular: Regular rate and rhythm. No murmurs. Respiratory: No respiratory distress. Clear to auscultation bilaterally. Abdominal: Soft, moderate right lower quadrant tenderness to palpation, nondistended, normal bowel sounds. No guarding, rebound, or peritoneal signs. Back: Nontender. Extremities: Nontender, no edema. Skin: Normal color, no rash. Neurologic: Alert and oriented ?3. Cranial nerves II through XII are intact. Normal strength and sensation. Psych: Normal affect. Test Results: CBC shows a white count of 50.0 with a hemoglobin of 11.9, 7 neutrophils 73, lymphocytes 18. Chem-7 shows glucose 136. UA shows leukocytes, blood, 25-50 white blood cells, 1+ bacteria. test is negative. Clinical Impression(s) from Imaging Studies Abdomen/Pelvis CT 02/10/19 11:48 IMPRESSION: Left ovarian cyst. This is essentially unchanged. Stable 3.5 mm nonobstructive calculus in the lower pole of the right kidney. Stable 2.5 cm adenoma and left adrenal gland. Electronically Signed: Geovanni Retana, at 14:29 EDT , Service support , Emergency Department Course and Treatment: Patient had an IV placed. She was given a liter of normal saline. She was given Zofran and morphine IV. She is resting more comfortably. Patient's urine was sent for culture. Treatment Plan: I discussed the CT results with the patient. She does not have appendicitis. She does have a left ovarian cyst that is unchanged. She is instructed to follow-up with Dr. Vishnu Young for this. She states that she has had pain referred to the right side from an ovarian cyst in the past. She will be discharged with Zofran and Keflex. Instructed to follow-up with her primary care physician 1 to 2 days if not improving. Return to the emergency department for any worsening symptoms. Disposition: To home in improved and stable condition. Impression: 1. Abdominal pain, uncertain cause. 2. UTI. 3. Left ovarian cyst. 4. Vomiting/diarrhea. This note was generated with [employer] dictation software. It may contain incorrect words, spelling, and punctuation that were not noted in review of the chart prior to signing ED Disposition - Plan for ED Patient: Disposition: Home or Assisted Living Instructions: ABDOMINAL PAIN, Unknown Cause, (Female) Prescriptions: Cephalexin [Keflex] 500 mg PO Q12 #14 cap Prescription Printed Ondansetron [Zofran Odt] 4 mg PO Q8H PRN PRN #10 tab PRN Reason: Nausea Prescription Printed Referrals: Miguelito Unger MD [Primary Care Provider] - 3-5 Days if not improving
[2019-02-10 12:38] LABS: Anion Gap 8 (5-15); BUN 11 mg/dL (7-18); BUN/Creat Ratio 18.7 RATIO (10-20); Calcium,Total 9.1 mg/dL (8.5-10.1); Chloride 105 mmol/L (98-107); Creatinine, Serum 0.59 mg/dL (0.55-1.02); EST Glomerular Filtration Rate 137 mL/min (>60); Est Glom Filt Rate - Afr Amer 166 mL/min (>60); Estimated Creatinine Clearance 152.15 ml/min; Glucose 136 mg/dL (74-106); Sodium Level 140 mmol/L (136-145)
[2019-02-10 12:50] LABS: Internal QC Validated? YES +Cl - CLEAR BKGD; Pregnancy, Serum, hCG Quali. NEGATIVE Negative
[2019-02-10 13:13] LABS: Mucous, Urine 0 SEEN /hpf (<or=2+); Squamous Epithelial Cells - UA 0 SEEN /hpf (5-10)
[2019-02-10 13:15] LABS: Color, Urine Yellow (Yellow); Glucose, Dipstick Normal (Normal); Ketone-Dipstick Negative (Negative); Leukocyte Esterase-Dipstick 500 /ul (Negative); Nitrite-Dipstick Negative (Negative); Occult Blood-Urine 10 /ul (Negative); Protein-Dipstick Negative (Negative); Urine Bilirubin Dipstick Negative (Negative); Urine Clarity Sl. Cloudy (Clear); Urine Urobilinogen Normal (Normal)
[2019-02-10 13:21] LABS: Bacteria 1+ /hpf (None Seen); Red Blood Cells-Urine 0-5 SEEN /hpf (0-5); White Blood Cells 25-50 SEEN /hpf (0-5)
[2019-02-10 13:22] LABS: Amorphous Sediment 1+ PHOS
[2019-02-10 14:22] VITALS: BP 138/92; PULSE 91; RESP 16; O2SAT 100
[2019-02-10] MEDS: Cephalexin 250 MG Capsule 500 MG PO (15:19)
[2019-02-10 15:20] VITALS: RESP 18
== END 2019-02-10 15:23 | disposition home or self-care (01) ==
LOC: ED 12:02
PROVIDERS: Emergency Provider Emergency Medicine; Family Provider Family Medicine; PCP Family Medicine
DX: R10.31 Right lower quadrant pain (principal); N39.0 Urinary tract infection, site not specified; N83.202 Unspecified ovarian cyst, left side; R11.2 Nausea with vomiting, unspecified; R19.7 Diarrhea, unspecified; J45.909 Unspecified asthma, uncomplicated; E11.9 Type 2 diabetes mellitus without complications; E28.2 Polycystic ovarian syndrome; Z79.84 Long term (current) use of oral hypoglycemic drugs; Z79.899 Other long term (current) drug therapy
CPT/HCPCS: 74177; 80048; 81001; 84703; 85025; 87086; 87088; 96361; 96374; 96375; 99285; J7030; Q9967; A4216; J2405

== ENCOUNTER 2019-02-20 15:41 | Emergency (ER) | payer OTHER, SELFPAY ==
[2019-02-20 15:42] VITALS: BP 158/85; PULSE 80; RESP 18; TEMP 36.3; O2SAT 97; BMI 65.9
--- NOTE | 2019-02-20 15:50 | US_ITS ---
STUDY: ULTRASOUND OF THE FEMALE PELVIS - COMPLETE REASON FOR EXAM: Female, 23 years old. Left ovarian cysts LMP: TECHNIQUE: Transabdominal TECHNICAL QUALITY: Adequate. COMPARISON: CT 02/09/4019 FINDINGS: The uterus is anteverted and is in a midline position. The uterus measures 7.4x4.7x3.3 cm. Normal uterine cervix. The endometrium measures 4.3 mm in thickness, and is hyperechoic. There is no demonstrated endometrial mass. There is no demonstrated myometrial mass. I.U.D. - The patient does not have an I.U.D. The right ovary is visualized. The right ovary measures 2.7x3.3x1.6 cm. There is no right ovarian cyst or ovarian mass. There is no visualized right adnexal mass or complex lesion. There is normal arterial and normal venous vascularity. The left ovary is visualized. The left ovary measures 4.3x3.1x2.6 cm. There is a 7.0 cm cysts There is no visualized left adnexal mass or complex lesion. There is normal arterial and normal venous vascularity. There is no fluid in the cul-de-sac. Urinary bladder is unremarkable US/Pelvic (Non ) IMPRESSION: 7.0 cm left ovarian cyst. No pelvic free fluid or evidence of ovarian torsion. Electronically Signed: Diomedes Kim MD ([place]) at 18:21 EDT , Service support ,
[2019-02-20 16:04] VITALS: RESP 18
[2019-02-20] MEDS: Ondansetron 4 MG/2 ML Vial IV (16:05)
--- NOTE | 2019-02-20 16:05 | ED.VIS.GEN ---
History of Present Illness Chief Complaint: Female C/O Detail of Chief Complaint: Left adnexal pain Informant: Patient, Family Onset: Days - 13 days ago Context: Sudden Onset Timing: Continuous Quality: Pain Location: Left lower quadrant/left adnexa Current Severity: Moderate Maximum Severity: Severe Worsened by: Coughing, walking Relieved by: Nothing Associated Symptoms: Nausea Narrative: She is a 23-year-old female who was seen approximate 2 weeks ago and diagnosed with a left ovarian cyst. She had an ultrasound performed by her event marketing assistant Dr. Oviedo and mother states the cyst was 7 x 6 cm in size. Patient has history of polycystic ovarian syndrome. She denies fever, chills night sweats. She does report nausea without vomiting diarrhea. Denies constipation. She denies dysuria, frequency, urgency or hematuria. Last normal menstrual period approximately 2 weeks ago. control pills for polycystic ovarian syndrome. She denies pain referred to her shoulder. She does report pain that radiates to her lower back. She states that pain is been present since onset. She denies vaginal discharge. She is had numerous cysts on the left ovary which required surgery. She has had no problems with the right ovary. Patient denies respiratory, cardiac or ENT symptoms. There is no history of trauma. There is no history of renal ureterolithiasis. She denies hematuria. Prior similar symptoms: Yes Recent Illness/Hospitalization: Yes - Past Medical History (1) History of polycystic ovarian syndrome Status: Acute Past Medical History - Allergies and Home Meds Allergies/Adverse Reactions: Allergies penicillin V potassium [From Pen-Vee K] Allergy (Mild, Verified 02/20/19 15:42) Rash brompheniramine maleate [From Dimetapp (brompheniramine-PPA)] Allergy (Verified 02/20/19 15:42) Shortness of breath celery Allergy (Verified 02/20/19 15:42) Swelling phenylpropanolamine HCl [From Dimetapp (brompheniramine-PPA)] Allergy (Verified 02/20/19 15:42) Shortness of breath amoxicillin trihydrate [From Augmentin] Adverse Reaction (Intermediate, Verified 02/20/19 15:42) Diarrhea potassium clavulanate [From Augmentin] Adverse Reaction (Intermediate, Verified 02/20/19 15:42) Diarrhea dicyclomine HCl [From Bentyl] Adverse Reaction (Verified 02/20/19 15:42) Nausea/Vom/Diarrhea plastic tape Allergy (Uncoded 02/20/19 15:42) Rash FRUCTOSE Adverse Reaction (Uncoded 02/20/19 15:42) Nausea/Vom/Diarrhea Primary Care Physician: Miguelito Unger MD [Primary Care Provider] - Prior records reviewed: Yes 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: - - CARGOMAN for recurrent left ovarian cysts Lives: With Family Smoking Status: Never smoker Alcohol: None Drugs: None Review of Systems General: Denies: Chills, Fever, Malaise, Sweats ENT: Denies: Rhinorrhea, Sore throat Cardiovascular: Denies: Chest pain, Palpitations Respiratory: Denies: Dyspnea, Cough, Dyspnea on exertion Gastrointestinal: Reports: Abdominal pain, Nausea. Denies: Vomiting, Diarrhea, Constipation, Melena, Hematochezia, -, - Genitourinary: Denies: Dysuria, Hematuria, Frequency Musculoskeletal: Reports: Back pain. Denies: Myalgias, Arthralgias, Neck pain, Swelling, Extremity Pain Skin: Denies: Rash, Wounds Neurological: Denies: Headache, Weakness, Numbness Endocrine: Denies: Polyuria, Polydipsia Hematologic: Denies: Easy bruising, Easy bleeding Allergy: Denies: Uticaria Physical Exam Vital Signs/Narrative: Vital Signs Temp Pulse Resp BP Pulse Ox 02/20/19 15:42 97.4 F L 80 18 158/85 H 97 Inital Vital Signs reviewed: Yes General: Well nourished, Well developed, Obese, No Acute Distress, - - As I was exiting the room patient began to cry. She states that I caused significant pain with palpation. Head: Normocephalic, Atraumatic Eyes: Perrl, EOMI. Negative for: Pale conjunctiva, Scleral icterus ENT: Moist mucous membranes, No rhinorrhea Cardiovascular: Regular rate, Regular rhythm, No murmurs, Normal S1, Normal S2 Respiratory: No distress, CTA bilaterally, Chest nontender Abdomen: Soft, Nondistended, Normal bowel sounds, Tender Rectal: Deferred Back: Nontender, Normal Inspection Extremities: Nontender, No edema Skin: Normal color, No rash Neurological: Alert, Oriented x3, Cranial nerves II-XII grossly intact, Normal Strength, Normal Sensation Psychological: Tearful Diagnostic/Tx/Re-eval Impressions Pelvis Ultrasound 02/20/19 15:50 IMPRESSION: 7.0 cm left ovarian cyst. No pelvic free fluid or evidence of ovarian torsion. Electronically Signed: Diomedes Kim MD ([place]) at 18:21 EDT , Service support , 02/20/19 15:50 Pelvic (Non ) [US] Stat - Medical Decision Making With history of ovarian cyst on left side greater than 6 cm and history of abrupt onset need to evaluate for torsion. Ultrasound with color-flow was ordered to evaluate for torsion. Case will be discussed with her event marketing assistant once results are available. Medicated with IV Toradol and Zofran for her nausea. Differential includes ruptured ovarian cyst, portion of the ovary, polycystic ovarian syndrome and pain of unknown etiology. Was informed at 1854 the patient is having pain again. Formyl grams of morphine was ordered. The ultrasound reveals no evidence of torsion or ruptured ovarian cyst. Plan is to discharge to home to follow-up with Dr. Oviedo. ED Disposition - Plan for ED Patient: Disposition: Home or Assisted Living Diagnosis: Left ovarian cyst Instructions: Ovarian Cyst Referrals: Miguelito Unger MD [Primary Care Provider] - Flower Mendoza MD [STAFF PHYSICIAN] - 3-5 Days if not improving
[2019-02-20] MEDS: Ketorolac 15 MG/ML Vial IV (16:06)
[2019-02-20 18:45] VITALS: RESP 18
[2019-02-20] MEDS: Morphine 4 MG/ML Syringe IV (19:05)
[2019-02-20 19:13] VITALS: BP 147/89; PULSE 81; RESP 14; O2SAT 97
== END 2019-02-20 19:14 | disposition home or self-care (01) ==
PROVIDERS: Emergency Provider Emergency Medicine; Family Provider Family Medicine; PCP Family Medicine
DX: N83.202 Unspecified ovarian cyst, left side (principal)
CPT/HCPCS: 76856; 96374; 96375; 99283; A4216; J2405

== ENCOUNTER 2019-02-24 15:00 | Outpatient (RCR) | payer OTHER, SELFPAY | END 2019-03-07 23:59 | LOC: DC 15:00 | PROVIDERS: Family Provider Family Medicine; PCP Family Medicine; Visit Provider Nurse Practitioner Women's Health | DX: E11.9 Type 2 diabetes mellitus without complications (principal); E66.3 Overweight; Z68.44 Body mass index [BMI] 60.0-69.9, adult; Z71.3 Dietary counseling and surveillance | CPT/HCPCS: 97803; G0108 ==

== ENCOUNTER 2019-02-26 20:39 | Emergency (ER) | payer OTHER, SELFPAY ==
[2019-02-26 20:40] VITALS: BP 149/106; PULSE 111; RESP 20; TEMP 36.5; O2SAT 98; BMI 66.0
[2019-02-26 20:48] VITALS: BP 164/90
--- NOTE | 2019-02-26 21:05 | US_ITS ---
HISTORY: Ovarian cyst. 93 images. [address] scan is from February 10, 2019. A comparison pelvic ultrasound is also from February 20, 2019. Findings: Transabdominal imaging: The left ovary measures 2.5 x 3.3 x 2.4 cm. Color and pulse wave Doppler imaging suggests arterial flow to left ovarian parenchyma. Adjacent to the left ovary there is a cystic mass. No flow is demonstrated within the cystic mass. Transabdominally, I measure the mass 6.9 x 6 x 6.1 cm The right ovary is not identified transabdominally. Endovaginal imaging: Myometrium is homogeneous. The cervix is closed. No significant free fluid is present. Endovaginally the endometrial stripe is measured at 4 mm. Color Doppler imaging over the uterine fundus and endometrial stripe films demonstrate pathological flow. There is a suggestion of nabothian cysts. The right ovary measures 3.8 x 2.2 x 2.8 cm. Several follicles are present on the right ovary. Color Doppler imaging demonstrates flow to right ovarian parenchyma. Pelvic Doppler imaging suggest arterial and venous flow to right ovarian parenchyma. The left ovary is again suggested. The left ovary is measured at 7.8 x 6.4 x 3.2 cm. No flow is perceived within the left ovary on color Doppler imaging. Nondiagnostic flow is perceived within the ovary on pulsed wave Doppler endovaginal imaging. The cyst adjacent to the left ovary is again demonstrated. Endovaginally the cyst is measured at 7.8 x 6.4 x 7 cm. US/Transvaginal Non- IMPRESSION: No change. 7.8 x 6.4 x 7 cm cystic mass adjacent to the left ovary. It may be part of the left ovary. It is likely part of the left ovary. It is possible it is just adjacent to the left ovary. Nondiagnostic flow within the left ovary. This left ovarian cyst versus left adnexal cyst is unchanged also since previous study of December 27, [address] is also been made available from June 29, 2017. 2 left ovarian cystic mass since were present at that time. at 2313 Reported and signed by: Ajay Dumont MD Electronically Signed: Ajay Dumont MD at 23:12 EDT Tel , Service support ,
[2019-02-26] MEDS: Morphine 4 MG/ML Syringe IV (21:19)
[2019-02-26] MEDS: Ondansetron 4 MG/2 ML Vial IV (21:19)
[2019-02-26 22:40] VITALS: BP 149/80; PULSE 94; RESP 18; O2SAT 97
--- NOTE | 2019-02-26 23:20 | ED.DCSUM_ITS ---
History of Present Illness Chief Complaint: Abd Pain Detail of Chief Complaint: Left lower quadrant pain Informant: Patient, Family Onset: Weeks Context: Gradual Onset Current Severity: Moderate Maximum Severity: Moderate Narrative: Patient was diagnosed with a left ovarian cyst several weeks ago. Patient was most recently seen here on the and had an ultrasound that revealed a 7 cm cyst. Patient states that she continues to have pain but today seem to be significantly worse. Last dose of ibuprofen shortly prior to arrival. Past Medical History - Allergies and Home Meds Allergies/Adverse Reactions: Allergies penicillin V potassium [From Pen-Vee K] Allergy (Mild, Verified 02/26/19 20:40) Rash brompheniramine maleate [From Dimetapp (brompheniramine-PPA)] Allergy (Verified 02/26/19 20:40) Shortness of breath celery Allergy (Verified 02/26/19 20:40) Swelling phenylpropanolamine HCl [From Dimetapp (brompheniramine-PPA)] Allergy (Verified 02/26/19 20:40) Shortness of breath amoxicillin trihydrate [From Augmentin] Adverse Reaction (Intermediate, Verified 02/26/19 20:40) Diarrhea potassium clavulanate [From Augmentin] Adverse Reaction (Intermediate, Verified 02/26/19 20:40) Diarrhea dicyclomine HCl [From Bentyl] Adverse Reaction (Verified 02/26/19 20:40) Nausea/Vom/Diarrhea plastic tape Allergy (Uncoded 02/26/19 20:40) Rash FRUCTOSE Adverse Reaction (Uncoded 02/26/19 20:40) Nausea/Vom/Diarrhea Primary Care Physician: Miguelito Unger MD [Primary Care Provider] - Prior records reviewed: Yes Past Medical History: - - Reviewed 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: - - [employer]GE [employer] for recurrent left ovarian cysts Lives: With Family Smoking Status: Never smoker Review of Systems General: Denies: Chills, Fever Eyes: Denies: Visual changes - bilaterally ENT: Denies: Bilateral ear pain Cardiovascular: Denies: Chest pain Respiratory: Denies: Dyspnea Gastrointestinal: Reports: Abdominal pain. Denies: Nausea, Vomiting, Diarrhea Genitourinary: Denies: Dysuria Musculoskeletal: Denies: Back pain Neurological: Denies: Headache Physical Exam Vital Signs/Narrative: Vital Signs Temp Pulse Resp BP Pulse Ox 02/26/19 22:40 94 18 149/80 H 97 02/26/19 20:48 164/90 H 02/26/19 20:40 97.7 F L 111 H 20 H 149/106 H 98 General: Well nourished, Well developed ENT: Moist mucous membranes Neck: Supple Cardiovascular: Regular rate, Regular rhythm Respiratory: No distress, CTA bilaterally Abdomen: Soft, Tender - Left lower quadrant tenderness palpation., Hypoactive bowel sounds. Negative for: Guarding, Rebound tenderness Extremities: Nontender Skin: Normal color Neurological: Alert, Oriented x3 Psychological: Normal affect Diagnostic/Tx/Re-eval Impressions Transvaginal US 02/26/19 21:05 IMPRESSION: No change. 7.8 x 6.4 x 7 cm cystic mass adjacent to the left ovary. It may be part of the left ovary. It is likely part of the left ovary. It is possible it is just adjacent to the left ovary. Nondiagnostic flow within the left ovary. This left ovarian cyst versus left adnexal cyst is unchanged also since previous study of December 27, [address] is also been made available from June 29, 2017. 2 left ovarian cystic mass since were present at that time. at 2313 Reported and signed by: Ajay Dumont MD Electronically Signed: Ajay Dumont MD at 23:12 EDT Tel , Service support , 02/26/19 21:05 Transvaginal Non- [US] Stat - Medical Decision Making Patient was given morphine and Zofran for pain. Ultrasound appears to be unchanged. There is flow noted to the ovaries. Test results were discussed with patient and mother at bedside. She will continue ibuprofen. I will write her for a few [place] for breakthrough pain only. ED Disposition - Plan for ED Patient: Disposition: Home or Assisted Living Diagnosis: Left ovarian cyst Instructions: Ovarian Cyst Prescriptions: Hydrocodone Bitart/Apap 5-325 [[place] 5MG-325MG] 1 tablet PO Q6H PRN PRN 3 Days #10 tablet PRN Reason: Pain Referrals: Miguelito Unger MD [Primary Care Provider] - Katt Harrison MD [STAFF PHYSICIAN] -
[2019-02-26 23:24] VITALS: BP 138/74; PULSE 92; RESP 18; O2SAT 97
== END 2019-02-26 23:33 | disposition home or self-care (01) ==
PROVIDERS: Emergency Provider Emergency Medicine; Family Provider Family Medicine; PCP Family Medicine
DX: N83.202 Unspecified ovarian cyst, left side (principal)
CPT/HCPCS: 76830; 93976; 96374; 96375; 99284; A4216; J2405

== ENCOUNTER 2019-03-09 14:58 | Outpatient (RCR) | payer OTHER, SELFPAY | END 2019-03-09 23:59 | disposition home or self-care (01) | LOC: DC 14:58 | PROVIDERS: Family Provider Family Medicine; PCP Family Medicine; Visit Provider Nurse Practitioner Women's Health | DX: Z71.3 Dietary counseling and surveillance (principal); E11.9 Type 2 diabetes mellitus without complications; E66.3 Overweight; Z68.44 Body mass index [BMI] 60.0-69.9, adult | CPT/HCPCS: 97803 ==

== ENCOUNTER 2019-05-16 05:57 | Emergency (ER) | payer OTHER, SELFPAY ==
[2019-05-16 06:02] VITALS: BP 132/68; PULSE 85; RESP 20; TEMP 36.7; O2SAT 95; BMI 65.2
--- NOTE | 2019-05-16 06:41 | US_ITS ---
STUDY: ULTRASOUND OF THE FEMALE PELVIS - COMPLETE REASON FOR EXAM: Female, 23 years old. . Left lower quadrant pain. Patient has a history of ovarian cysts and polycystic ovary disease.. LMP: March 13, 2019. TECHNIQUE: Transvaginal TECHNICAL QUALITY: Adequate. COMPARISON: Comparison is made with prior examination of February 26, 2019. FINDINGS: The uterus is anteverted and is in a midline position. The uterus measures 8.9 cm x 4.2 cm x 3.5 cm. Normal uterine cervix. The endometrium measures 5.4 mm in thickness, and is . There is no demonstrated endometrial mass. There is no demonstrated myometrial mass. I.U.D. - The patient does not have an I.U.D. The right ovary is visualized. The right ovary is enlarged and measures 5.6 cm x 4.2 cm x 4.2 cm. There is a 4 cm x 2.9 cm x 2.9 cm right ovarian cyst. There is no visualized right adnexal mass or complex lesion. There is normal arterial and normal venous vascularity. The left ovary is visualized. The left ovary and measures 7.7 cm x 11.5 cm by 6.3 cm. There is a 5.2 cm x 8.5 cm x 5.8 cm benign cyst. There is no visualized left adnexal mass or complex lesion. There is normal arterial and normal venous vascularity. There is no fluid in the cul-de-sac. US/Transvaginal Non- IMPRESSION: Enlargement of both ovaries with bilateral ovarian cysts as described. Electronically Signed: Geovanni Retana, at 9:08 EST , Service support ,
--- NOTE | 2019-05-16 06:42 | ED.VISSUMM ---
- ER Visit Summary Date of Service: 05/16/19 Chief Complaint: Left-sided abdominal and pelvic pain. History of Present Illness: The patient is a 23 F presenting with left-sided abdominal and pelvic pain. Patient states this has been intermittent since January. She has history of PCOS. She is scheduled to have ovarian cyst removed in June at her [employer] [facility] in [place]. She has been taking Tylenol and ibuprofen at home. She states the pain worsened tonight. She has nausea with no vomiting. She also has URI symptoms with mild cough and rhinorrhea. She denies fever. Last menstrual period was in March, history of irregular periods. Denies possibility of . Denies vaginal discharge or bleeding. Denies urinary complaints. Denies other complaints. Physical Examination: Vitals are stable. Patient is afebrile. Alert no acute distress. HEENT exam is unremarkable. Neck is supple. Lungs are clear and equal bilaterally. Heart is regular rate and rhythm. Abdomen is soft left lower quadrant tenderness with no rebound or guarding Extremities are unremarkable. Skin is warm and dry. No focal neurologic deficit. Remainder of exam is unremarkable. Emergency Department Course and Treatment: Patient was given morphine and Zofran IV. Pelvic ultrasound will be obtained and checked out to the oncoming physician. Disposition: Pending results Impression: Pelvic pain This note was generated with [employer]in[employer] dictation software. It may contain incorrect words, spelling, and punctuation that were not noted in review of the chart prior to signing ED Disposition - Plan for ED Patient: Referrals: Miguelito Unger MD [Primary Care Provider] -
[2019-05-16] MEDS: 0.9% Normal Saline 1,000 ML 1000 ML IV (07:30)
[2019-05-16] MEDS: Morphine 4 MG/ML Syringe IV (07:30)
[2019-05-16] MEDS: Ondansetron 4 MG/2 ML Vial IV (07:31)
[2019-05-16 08:33] VITALS: RESP 18
[2019-05-16 08:38] LABS: Mucous, Urine 0 SEEN /hpf (<or=2+)
[2019-05-16 08:38] LABS: Absolute Lymphocyte Count 3.17 X10^3/uL (0.83-4.51); Absolute Neutrophil Count 9.2 X10^3/uL (2.0-7.7); Basophil# 0.06 X10^3/uL; Basophil% 0.4 % (0-1); Eosinophil# 0.39 X10^3/uL; Eosinophils% 2.8 % (0-5); Hematocrit 37.9 % (37-47); Hemoglobin 11.5 g/dL (12.0-15.0); Lymphocyte # 3.17 X10^3/ul (4.0); Lymphocyte % 22.8 % (19-41); Mean Corp Hgb Conc 30.3 g/dL (32-36); Mean Corpuscular Hgb 24.4 pg (27.0-32.0); Mean Corpuscular Volume 80.3 fL (81-99); Mean Platelet Vol. 9.7 fl (6.2-12.0); Monocyte% 6.5 % (0-10); NRBC Flagged by Analyzer 0 % (0-5); Neutrophil # 9.19 X10^3/uL (2.7-7.7); Neutrophil % 66.1 % (47-70); Platelet Count 400 K/mm3 (150-450); RBC Distribution Width CV 15.6 % (11.6-14.6); RBC Distribution Width SD 45.1 fl (35.1-43.9); Red Blood Count 4.72 M/mm3 (4.2-5.4); White Blood Count 13.9 K/mm3 (4.4-11.0)
[2019-05-16 08:42] LABS: Anion Gap 4 (5-15); BUN 10 mg/dL (7-18); BUN/Creat Ratio 16.5 RATIO (10-20); Calcium,Total 8.8 mg/dL (8.5-10.1); Chloride 104 mmol/L (98-107); EST Glomerular Filtration Rate 132 mL/min (>60); Est Glom Filt Rate - Afr Amer 160 mL/min (>60); Estimated Creatinine Clearance 149.62 ml/min; Glucose 156 mg/dL (74-106); Potassium 4.2 mmol/L (3.5-5.1); Sodium Level 136 mmol/L (136-145)
[2019-05-16 08:54] LABS: Internal QC Validated? YES +Cl - CLEAR BKGD; Pregnancy, Urine Negative Negative
[2019-05-16 08:55] LABS: Color, Urine Yellow (Yellow); Glucose, Dipstick 50 mg/dl (Normal); Ketone-Dipstick Negative (Negative); Leukocyte Esterase-Dipstick 100 /ul (Negative); Nitrite-Dipstick Negative (Negative); Occult Blood-Urine 25 /ul (Negative); Protein-Dipstick Negative (Negative); Specific Gravity, Urine 1.015 (1.002-1.030); Urine Bilirubin Dipstick Negative (Negative); Urine Clarity Clear (Clear); Urine Urobilinogen Normal (Normal)
[2019-05-16 09:09] LABS: Bacteria 2+ /hpf (None Seen); Red Blood Cells-Urine 0-5 SEEN /hpf (0-5); Squamous Epithelial Cells - UA 0-5 SEEN /hpf (5-10); White Blood Cells 0-5 SEEN /hpf (0-5)
--- NOTE | 2019-05-16 09:47 | ED.DEP ---
ED Disposition - Plan for ED Patient: Instructions: PELVIC PAIN, Unknown Cause Prescriptions: Hydrocodone Bitart/Apap 5-325 [[place] 5MG-325MG] 1 tab PO Q4H PRN PRN 2 Days #4 tab PRN Reason: Pain Prescription Printed Referrals: Miguelito Unger MD [Primary Care Provider] -
[2019-05-16] MEDS: Ketorolac 30 MG/ML Syringe IV (10:28)
[2019-05-16 10:32] VITALS: BP 153/98; PULSE 81; RESP 17; O2SAT 97
== END 2019-05-16 10:33 | disposition home or self-care (01) ==
PROVIDERS: Emergency Medicine; Emergency Provider Emergency Medicine; Family Provider Family Medicine; PCP Family Medicine
DX: E28.2 Polycystic ovarian syndrome (principal); E11.9 Type 2 diabetes mellitus without complications; Z79.84 Long term (current) use of oral hypoglycemic drugs
CPT/HCPCS: 76830; 80048; 81001; 81025; 85025; 93976; 96361; 96374; 96375; 99285; J7030; A4216; J2405

== ENCOUNTER 2019-05-17 22:55 | Emergency (ER) | payer OTHER, SELFPAY ==
[2019-05-16 06:02] VITALS: BMI 65.2
[2019-05-17 22:57] VITALS: BP 155/76; PULSE 102; RESP 17; TEMP 36.4; O2SAT 96; BMI 66.9
--- NOTE | 2019-05-17 23:19 | ED.VIS.GEN ---
History of Present Illness Chief Complaint: Abd Pain Informant: Patient, Family Narrative: Patient stated she has acute on chronic pelvic pain. She has had chronic pelvic pain per patient since January of this year. She has had multiple work-ups for ovarian cyst. She had an ultrasound just yesterday. She was seen in the emergency department evaluated for similar pains. However she stated they were mainly on the left. They alternate per patient from left to right. Patient stated ultrasound showed a 7 cm ovarian cyst on the left. She has no cyst on the right. Patient had a negative test yesterday as well as urine analysis. Patient stated she try to go to work today and was able to make it for 2 hours and then to had to come home because of the pain. She is been feeling nauseous. No vomiting. No diarrhea. No fevers or chills. She stated she is supposed to see RN EMBEDDED in June to talk about having surgery for her ovarian cyst. She stated she finished her [place] earlier today. 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 (4) Lumbar radiculopathy Status: Chronic (5) Paratubal cyst Status: Chronic Past Medical History - Allergies and Home Meds Allergies/Adverse Reactions: Allergies penicillin V potassium [From Pen-Vee K] Allergy (Mild, Verified 05/17/19 22:55) Rash brompheniramine maleate [From Dimetapp (brompheniramine-PPA)] Allergy (Verified 05/17/19 22:55) Shortness of breath celery Allergy (Verified 05/17/19 22:55) Swelling phenylpropanolamine HCl [From Dimetapp (brompheniramine-PPA)] Allergy (Verified 05/17/19 22:55) Shortness of breath amoxicillin trihydrate [From Augmentin] Adverse Reaction (Intermediate, Verified 05/17/19 22:55) Diarrhea potassium clavulanate [From Augmentin] Adverse Reaction (Intermediate, Verified 05/17/19 22:55) Diarrhea dicyclomine HCl [From Bentyl] Adverse Reaction (Verified 05/17/19 22:55) Nausea/Vom/Diarrhea plastic tape Allergy (Uncoded 05/17/19 22:55) Rash FRUCTOSE Adverse Reaction (Uncoded 05/17/19 22:55) Nausea/Vom/Diarrhea Primary Care Physician: Miguelito Unger MD [Primary Care Provider] - Prior records reviewed: Yes Past Medical History: - - See problem list 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: - - 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 Denies: Vomiting, Diarrhea, Melena, Hematochezia Genitourinary: Denies: Dysuria, Hematuria, Frequency Musculoskeletal: Denies: Back pain, Extremity Pain Skin: Denies: Rash, Wounds Neurological: Denies: Headache, Weakness, Numbness Physical Exam Vital Signs/Narrative: Vital Signs Temp Pulse Resp BP Pulse Ox 05/17/19 22:57 97.5 F L 102 H 17 155/76 H 96 General: Well nourished, Well developed, No Acute Distress Head: Normocephalic, Atraumatic Eyes: Perrl, EOMI ENT: Moist mucous membranes, No rhinorrhea Neck: Supple, Nontender Cardiovascular: Regular rate, Regular rhythm, No murmurs Respiratory: No distress, CTA bilaterally, Chest nontender Abdomen: Soft, Nondistended, Normal bowel sounds, Tender - Very mild tenderness right lower quadrant with palpation.. Negative for: Guarding, Rebound tenderness Back: Nontender, Normal Inspection Extremities: Nontender, No edema Skin: Normal color, No rash Neurological: Alert, Oriented x3, Cranial nerves II-XII grossly intact, Normal Strength, Normal Sensation Psychological: Normal affect, Normal Mood Diagnostic/Tx/Re-eval - Medical Decision Making Patient given a dose of morphine and Zofran. Lab work obtained. Lab work shows a chronic leukocytosis at 15,000. No left shift. Electrolytes unremarkable. On reevaluation the patient feels much better. She is resting comfortably. She does not have an acute abdomen. Her ultrasound showed no cyst on that side. I do not think she has an appendicitis. I feel she can follow-up as an outpatient. This appears to be a chronic pelvic problem ED Disposition - Plan for ED Patient: Disposition: Home or Assisted Living Diagnosis: Pelvic pain Instructions: PELVIC PAIN, Unknown Cause Prescriptions: Oxycodone HCl/Acetaminophen [Percocet 5/325] 1 - 2 tab PO Q6H PRN PRN 3 Days #12 tab PRN Reason: Pain Prescription Printed Referrals: Miguelito Unger MD [Primary Care Provider] -
[2019-05-18 00:17] LABS: Absolute Lymphocyte Count 3.48 X10^3/uL (0.83-4.51); Absolute Neutrophil Count 10.1 X10^3/uL (2.0-7.7); Basophil# 0.05 X10^3/uL; Basophil% 0.3 % (0-1); Eosinophil# 0.36 X10^3/uL; Eosinophils% 2.4 % (0-5); Hemoglobin 11.2 g/dL (12.0-15.0); Lymphocyte # 3.48 X10^3/ul (4.0); Lymphocyte % 22.9 % (19-41); Mean Corp Hgb Conc 31.1 g/dL (32-36); Mean Corpuscular Hgb 24.7 pg (27.0-32.0); Mean Corpuscular Volume 79.3 fL (81-99); Mean Platelet Vol. 9.5 fl (6.2-12.0); Monocyte# 0.95 X10^3/uL; Monocyte% 6.3 % (0-10); NRBC Flagged by Analyzer 0 % (0-5); Neutrophil # 10.13 X10^3/uL (2.7-7.7); Neutrophil % 66.6 % (47-70); Platelet Count 396 K/mm3 (150-450); RBC Distribution Width CV 15.5 % (11.6-14.6); Red Blood Count 4.54 M/mm3 (4.2-5.4); White Blood Count 15.2 K/mm3 (4.4-11.0)
[2019-05-18] MEDS: Ondansetron 4 MG/2 ML Vial IV (00:24)
[2019-05-18] MEDS: Morphine 4 MG/ML Syringe IV (00:24)
[2019-05-18 00:38] LABS: Anion Gap 5 (5-15); BUN 12 mg/dL (7-18); Calcium,Total 8.9 mg/dL (8.5-10.1); Chloride 106 mmol/L (98-107); Creatinine, Serum 0.67 mg/dL (0.55-1.02); EST Glomerular Filtration Rate 118 mL/min (>60); Est Glom Filt Rate - Afr Amer 143 mL/min (>60); Estimated Creatinine Clearance 133.99 ml/min; Glucose 208 mg/dL (74-106); Sodium Level 139 mmol/L (136-145)
[2019-05-18 01:02] VITALS: BP 148/72; PULSE 80; RESP 16; O2SAT 97
== END 2019-05-18 01:04 | disposition home or self-care (01) ==
PROVIDERS: Emergency Provider Emergency Medicine; Family Provider Family Medicine; PCP Family Medicine
DX: R10.2 Pelvic and perineal pain (principal); G89.29 Other chronic pain; R11.0 Nausea; N83.202 Unspecified ovarian cyst, left side; E28.2 Polycystic ovarian syndrome; M51.16 Intervertebral disc disorders with radiculopathy, lumbar region; Z79.84 Long term (current) use of oral hypoglycemic drugs; Z79.899 Other long term (current) drug therapy
CPT/HCPCS: 80048; 85025; 96374; 96375; 99285; A4216; J2405

== ENCOUNTER 2019-07-14 05:57 | Emergency (ER) | payer OTHER, SELFPAY ==
[2019-07-14 05:58] VITALS: BP 116/75; PULSE 80; RESP 18; TEMP 36.8; O2SAT 96; BMI 67.5
--- NOTE | 2019-07-14 06:08 | US_ITS ---
STUDY: ULTRASOUND TRANSVAGINAL CLINICAL: Female, 23 years old. Left lower quadrant pain. TECHNIQUE: Transabdominal and transvaginal. COMPARISON: May 16, 2019. FINDINGS: Uterus is anteverted in the midline and measures 8.5 x 4.8 x 3.6 cm. Endometrium measures 8 mm and is hyperechoic. Nabothian cyst on the cervix. No IUD. No free fluid in the cul-de-sac. Right ovary measures 3.9 x 3.3 x 2.4 cm and is normal. Previously noted right ovarian cyst has resolved. Left ovary is enlarged measuring 9.1 x 8.3 x 6.8 cm and contains a simple cyst measuring 7.2 x 6.2 x 5.8 cm. Left ovary is similar in appearance to the prior study. . Polycystic ovary disease: No. US/Transvaginal Non- IMPRESSION: Persistent enlarged left ovary containing a 7.2 cm simple cyst. This represents an atypical physiologic cyst or a benign ovarian neoplasm. Consider LO[employer] OUT WORK[employer] consult. Normal right ovary. Previously noted right ovarian cyst has resolved. Electronically Signed: Boom Mahoney MD at 8:04 EST , Service support ,
--- NOTE | 2019-07-14 06:10 | ED.DCSUM_ITS ---
History of Present Illness Chief Complaint: Abd Pain Detail of Chief Complaint: Pain left lower quadrant/inguinal area Informant: Patient Onset: Today Context: Sudden Onset Timing: Continuous Quality: Pain Location: Left pelvic region Current Severity: Mild Maximum Severity: Severe Worsened by: Walking, coughing Relieved by: Better if she pushes on it Associated Symptoms: Nausea Narrative: She is a 23-year-old woman with history of polycystic ovarian disease. She had a transvaginal ultrasound May 16, 2019 which revealed an enlarged left ovary with cyst. Size of cyst is concerning for torsion. There is no evidence of torsion at that time. She states the pain awoke her from sleep. It hurts to walk. Hurts to cough. She reports pain rating through to her back. She has history of renal lithiasis. She denies fever, chills night sweats. Does report nausea without vomiting diarrhea. She denies dysuria, frequency, urgency or hematuria. She denies vaginal bleeding or discharge. She is on no hormonal therapy/ control. 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 (3) Paratubal cyst Status: Chronic Past Medical History - Allergies and Home Meds Allergies/Adverse Reactions: Allergies penicillin V potassium [From Pen-Vee K] Allergy (Mild, Verified 07/14/19 05:58) Rash brompheniramine maleate [From Dimetapp (brompheniramine-PPA)] Allergy (Verified 07/14/19 05:58) Shortness of breath celery Allergy (Verified 07/14/19 05:58) Swelling phenylpropanolamine HCl [From Dimetapp (brompheniramine-PPA)] Allergy (Verified 07/14/19 05:58) Shortness of breath amoxicillin trihydrate [From Augmentin] Adverse Reaction (Intermediate, Verified 07/14/19 05:58) Diarrhea potassium clavulanate [From Augmentin] Adverse Reaction (Intermediate, Verified 07/14/19 05:58) Diarrhea dicyclomine HCl [From Bentyl] Adverse Reaction (Verified 07/14/19 05:58) Nausea/Vom/Diarrhea plastic tape Allergy (Uncoded 07/14/19 05:58) Rash FRUCTOSE Adverse Reaction (Uncoded 07/14/19 05:58) Nausea/Vom/Diarrhea Primary Care Physician: Miguelito Unger MD [Primary Care Provider] - Prior records reviewed: Yes Past Medical History: - - Polycystic ovarian syndrome 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: - - 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 Denies: Vomiting, Diarrhea, Constipation, Melena, Hematochezia, -, - Genitourinary: Denies: Dysuria, Hematuria, Frequency Musculoskeletal: Reports: Back pain. Denies: Myalgias, Arthralgias, Neck pain, Swelling, Extremity Pain, -, - Skin: Denies: Rash, Wounds Neurological: Denies: Headache, Weakness, Parasthesia Hematologic: Denies: Easy bruising, Easy bleeding Allergy: Denies: Uticaria, Swelling of the mouth Physical Exam Vital Signs/Narrative: Vital Signs Temp Pulse Resp BP Pulse Ox 07/14/19 05:58 98.3 F 80 18 116/75 96 Inital Vital Signs reviewed: Yes General: Well nourished, Well developed, Obese, No Acute Distress, - - Appears uncomfortable. Head: Normocephalic, Atraumatic. Negative for: Trauma, Tenderness Eyes: Perrl, EOMI. Negative for: Pale conjunctiva, Scleral icterus ENT: Moist mucous membranes, No rhinorrhea, TM's clear Neck: Supple, Nontender, No lymphadenopathy, No JVD Cardiovascular: Regular rate, Regular rhythm, No murmurs, Normal S1, Normal S2 Respiratory: No distress, CTA bilaterally, Chest nontender Abdomen: Soft, Nondistended, Tender, Hypoactive bowel sounds. Negative for: Nontender, Normal bowel sounds, Hepatomegaly, Splenomegaly, Mass, Pulsatile mass Rectal: Deferred Back: Nontender Extremities: Nontender, No edema Skin: Normal color, No rash, No Trauma. Negative for: Cyanosis, Diaphoresis, Jaundice Neurological: Alert, Oriented x3, Cranial nerves II-XII grossly intact, Normal Strength, Normal Sensation Psychological: Depressed Diagnostic/Tx/Re-eval 07/14/19 06:08 Transvaginal Non- [US] Stat Laboratory Results 07/14/19 07/14/19 06:36 06:36 WBC 13.6 H RBC 4.42 Hgb 10.7 L Hct 35.5 L MCV 80.3 L MCH 24.2 L MCHC 30.1 L RDW Std Deviation 45.6 H RDW Coeff of Silvia 15.9 H Plt Count 353 MPV 9.3 Immature Gran % (Auto) 0.400 Neut % (Auto) 67.3 Lymph % (Auto) 23.7 [place] % (Auto) 6.1 Eos % (Auto) 2.1 Baso % (Auto) 0.4 Absolute Neuts (auto) 9.1 H Absolute Lymphs (auto) 3.22 Nucleated RBC % 0 Serum , Qual NEGATIVE White count is slightly elevated. This is nonspecific. test was negative. Ultrasound of the pelvis is pending. UA is pending. Disposition to be made by Dr. David Kim once UA and ultrasound results are available for review. - Medical Decision Making History of polycystic ovarian syndrome and ovary that is 6 to 7 cm in size which is the ideal size for torsion need to evaluate for torsion since pain started abruptly and woke patient from sleep. Serum test was obtained. Since there is also tenderness of the suprapubic area UA was obtained as well as CBC to assess white count and H&H. Transvaginal ultrasound was ordered with Doppler flow to determine if there is evidence of torsion. ED Disposition - Plan for ED Patient: Referrals: Miguelito Unger MD [Primary Care Provider] -
[2019-07-14] MEDS: Ondansetron 4 MG/2 ML Vial IV (06:40)
[2019-07-14] MEDS: Morphine 4 MG/ML Syringe IV ×3 (06:40→12:23)
[2019-07-14 06:42] LABS: Absolute Lymphocyte Count 3.22 X10^3/uL (0.83-4.51); Absolute Neutrophil Count 9.1 X10^3/uL (2.0-7.7); Basophil# 0.05 X10^3/uL; Basophil% 0.4 % (0-1); Eosinophil# 0.29 X10^3/uL; Eosinophils% 2.1 % (0-5); Hematocrit 35.5 % (37-47); Hemoglobin 10.7 g/dL (12.0-15.0); Lymphocyte # 3.22 X10^3/ul (4.0); Lymphocyte % 23.7 % (19-41); Mean Corp Hgb Conc 30.1 g/dL (32-36); Mean Corpuscular Hgb 24.2 pg (27.0-32.0); Mean Corpuscular Volume 80.3 fL (81-99); Mean Platelet Vol. 9.3 fl (6.2-12.0); Monocyte# 0.83 X10^3/uL; Monocyte% 6.1 % (0-10); NRBC Flagged by Analyzer 0 % (0-5); Neutrophil # 9.11 X10^3/uL (2.7-7.7); Neutrophil % 67.3 % (47-70); Platelet Count 353 K/mm3 (150-450); RBC Distribution Width CV 15.9 % (11.6-14.6); RBC Distribution Width SD 45.6 fl (35.1-43.9); Red Blood Count 4.42 M/mm3 (4.2-5.4); White Blood Count 13.6 K/mm3 (4.4-11.0)
[2019-07-14 06:53] LABS: Internal QC Validated? YES +Cl - CLEAR BKGD; Pregnancy, Serum, hCG Quali. NEGATIVE Negative
[2019-07-14 08:14] LABS: Mucous, Urine 0 SEEN /hpf (<or=2+)
[2019-07-14 08:29] LABS: Color, Urine Yellow (Yellow); Glucose, Dipstick Normal (Normal); Ketone-Dipstick Negative (Negative); Leukocyte Esterase-Dipstick 500 /ul (Negative); Nitrite-Dipstick Negative (Negative); Occult Blood-Urine 10 /ul (Negative); Protein-Dipstick Negative (Negative); Urine Bilirubin Dipstick Negative (Negative); Urine Clarity Sl. Cloudy (Clear); Urine Urobilinogen Normal (Normal); Urine pH 6.5 (5.0 - 8.0)
[2019-07-14 08:37] LABS: Bacteria 1+ /hpf (None Seen); Red Blood Cells-Urine 0-5 SEEN /hpf (0-5); Squamous Epithelial Cells - UA 5-10 SEEN /hpf (5-10); White Blood Cells 25-50 SEEN /hpf (0-5)
[2019-07-14 10:00] VITALS: BP 134/59; PULSE 83; RESP 18; O2SAT 96
--- NOTE | 2019-07-14 13:59 | DCINST.ED_ITS ---
ED Disposition - Plan for ED Patient: Disposition: Home or Assisted Living Diagnosis: Ovarian cyst Instructions: Ovarian Cyst Prescriptions: Hydrocodone Bitart/Apap 5-325 [[place] 5MG-325MG] 1 tab PO Q8H PRN PRN 3 Days #9 tab PRN Reason: Pain Prescription Printed Additional Instructions: Followup with Dr Eliot RADER
[2019-07-14] MEDS: oxyCODONE 5 MG Tablet 10 MG PO (14:09)
[2019-07-14 14:13] VITALS: PULSE 89; RESP 18; O2SAT 95
--- NOTE | 2019-07-14 16:51 | CON.PCM_ITS ---
Problem List (1) Pelvic pain Status: Acute (2) History of ovarian cyst Status: Acute Reason for Consult Date of Consultation: 07/14/19 Reason for Consultation: Rule out ovarian torsion History of Present Illness: The patient is a 23 year old F [] with a history that is significant for chronic pelvic pain, polycystic ovarian syndrome, ovarian cysts, morbid obesity, suspected [place]'s disease, adrenal adenoma, type 2 diabetes, and fatty liver who presents to the emergency department with acute pelvic pain. She has a known simple cyst in her left adnexa and she has been seen by Dr. Vishnu Mccabe for consultation regarding removal of the cyst given her morbid obesity and medical complications, and need for tertiary care center. Her surgery is being scheduled with plan for a left adrenalectomy. She states she has left lower quadrant pain that worsened today. Improved with pain medication. She notes nausea with the pain. No additional complaints. Her mother is at bedside and states the patient has had this same pain off and on for several years. She was last in the ER in May for this same pain. 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 myelopathy (Chronic) Lumbar radiculopathy (Chronic) Medical History: Medical History (Last Updated 12/28/18 @ 13:24 by Gaviota Sen) Asthma J45.909 Diabetes E11.9 Type 2 GERD (gastroesophageal reflux disease) K21.9 Obesity E66.9 Ovarian cyst N83.209 PCOS (polycystic ovarian syndrome) E28.2 Allergies penicillin V potassium [From Pen-Vee K] Allergy (Mild, Verified 07/14/19 05:58) Rash brompheniramine maleate [From Dimetapp (brompheniramine-PPA)] Allergy (Verified 07/14/19 05:58) Shortness of breath celery Allergy (Verified 07/14/19 05:58) Swelling phenylpropanolamine HCl [From Dimetapp (brompheniramine-PPA)] Allergy (Verified 07/14/19 05:58) Shortness of breath amoxicillin trihydrate [From Augmentin] Adverse Reaction (Intermediate, Verified 07/14/19 05:58) Diarrhea potassium clavulanate [From Augmentin] Adverse Reaction (Intermediate, Verified 07/14/19 05:58) Diarrhea dicyclomine HCl [From Bentyl] Adverse Reaction (Verified 07/14/19 05:58) Nausea/Vom/Diarrhea plastic tape Allergy (Uncoded 07/14/19 05:58) Rash FRUCTOSE Adverse Reaction (Uncoded 07/14/19 05:58) Nausea/Vom/Diarrhea Home Medications: Ambulatory Orders Medication Instructions Recorded Epi Pen (for allergic rxn) 0.3 mg IM X1 #1 syringe 06/08/17 Metformin HCl 1,000 mg PO DAILY 06/25/18 Lisinopril 5 mg PO DAILY 02/10/19 buPROPion SR [Wellbutrin Sr] 100 mg PO BID 02/10/19 Celexa 10 mg PO DAILY 05/16/19 Ferrous Sulfate [Iron] 1 tab PO DAILY 05/16/19 Cholecalciferol (Vitamin D3) 125 mcg PO DAILY 05/17/19 [Vitamin D3] Hydrocodone Bitart/Apap 5-325 1 tab PO Q8H PRN PRN 3 Days #9 tab 07/14/19 [[place] 5MG-325MG] 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: 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 (Last Updated 12/28/18 @ 13:23 by Gaviota Sen) H/O endoscopy Z98.890 H/O ovarian cystectomy Z98.890, Z87.42 06/[address] 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 Denies: Constipation, Diarrhea, Vomiting Genitourinary: Denies: Dysuria Gynecological: Denies: Vaginal bleeding, Vaginal discharge - Physical Exam Vitals/I&O's: Vital Signs Temp Pulse Resp BP Pulse Ox 98.3 F 89 18 134/59 H 95 07/14/19 05:58 07/14/19 14:13 07/14/19 14:13 07/14/19 10:00 07/14/19 14:13 Oxygen Delivery Method Room Air Weight: 444 lb 3.703 oz Body Mass Index (BMI) 67.5 General: Alert, No apparent distress, - - Comfortable HEENT: Atraumatic Abdomen: Soft, Non-Distended, - - +LLQ tenderness, no rebounding, no gaurding, no rigidity, morbidly obese Skin: No rashes Neurological: Neuro grossly intact Laboratory Results 07/14/19 06:36: WBC 13.6 H, RBC 4.42, Hgb 10.7 L, Hct 35.5 L, MCV 80.3 L, MCH 24.2 L, MCHC 30.1 L, RDW Std Deviation 45.6 H, RDW Coeff of Silvia 15.9 H, Plt Count 353, MPV 9.3, Immature Gran % (Auto) 0.400, Neut % (Auto) 67.3, Lymph % (Auto) 23.7, [place] % (Auto) 6.1, Eos % (Auto) 2.1, Baso % (Auto) 0.4, Absolute Neuts (auto) 9.1 H, Absolute Lymphs (auto) 3.22, Nucleated RBC % 0 07/14/19 06:36: Serum , Qual NEGATIVE 07/14/19 08:05: Urine Color Yellow, Urine Clarity Sl. Cloudy, Urine pH 6.5, Ur Specific [place] 1.010, Urine Protein Negative, Urine Glucose (UA) Normal, Urine Ketones Negative, Urine Occult Blood 10 H, Urine Nitrite Negative, Urine Bilirubin Negative, Urine Urobilinogen Normal, Ur Leukocyte Esterase 500 H, Urine RBC 0-5 SEEN, Urine WBC 25-50 SEEN, Ur Squamous Epith Cells 5-10 SEEN, Urine Bacteria 1+, Urine Mucus 0 SEEN Assessment/Plan All Active Problems (Last Updated 12/28/18 @ 13:24 by Gaviota Sen) History of polycystic ovarian syndrome (Acute) Ovarian cyst (Acute) Pelvic pain (Acute) History of ovarian cyst (Acute) Abdominal pain (Acute) Patient with a history of chronic pelvic pain and multiple ER visits for acute worsening of her pain. Her mother does state that the pain today is similar to the worsening of her pain before in the past. She does have tenderness in left lower quadrant but no acute peritoneal signs. Pelvic ultrasound images reviewed and there is good flow noted to both ovaries. She does have a 7 cm simple cyst in the left adnexa. Patient is very comfortable appearing at this time. Instructed her to follow-up with planned surgery for ovarian cystectomy. Reviewed signs and symptoms of a torsion or rupture and when to call or come back into the ER.
== END 2019-07-14 14:14 | disposition home or self-care (01) ==
PROVIDERS: Emergency Medicine; Emergency Provider Emergency Medicine; PCP Family Medicine
DX: E28.2 Polycystic ovarian syndrome (principal); E11.9 Type 2 diabetes mellitus without complications; Z79.84 Long term (current) use of oral hypoglycemic drugs
CPT/HCPCS: 76830; 81001; 84703; 85025; 93976; 96374; 96375; 96376; 99284; A4216; J2405

== ENCOUNTER 2019-07-18 07:27 | Emergency (ER) | payer OTHER, SELFPAY ==
[2019-07-18 07:28] VITALS: BP 155/106; PULSE 92; RESP 16; TEMP 36.9; O2SAT 98; BMI 66.9
--- NOTE | 2019-07-18 07:55 | US_ITS ---
STUDY: ULTRASOUND OF THE FEMALE PELVIS - COMPLETE REASON FOR EXAM: Female, 23 years old. LLQ PAIN LMP: July 03, 2019. TECHNIQUE: Transabdominal and Transvaginal TECHNICAL QUALITY: Adequate. COMPARISON: Comparison is made with prior study dated July 14, 2019. FINDINGS: The uterus is anteverted and is in a midline position. The uterus measures 8.5 cm x 4.5 cm x 5.1 cm. Normal uterine cervix. The endometrium measures 5.0 mm in thickness, and is hyperechoic. There is no demonstrated endometrial mass. There is no demonstrated myometrial mass. I.U.D. - The patient does not have an I.U.D. The right ovary is visualized. The right ovary measures 3 cm x 3.8 cm x 2.8 cm. There is no right ovarian cyst or ovarian mass. There is no visualized right adnexal mass or complex lesion. There is normal arterial and normal venous vascularity. The left ovary is visualized. The left ovary measures 4.6 cm x 3 cm x 3.4 cm. There is no left ovarian cyst or ovarian mass. Follicles are seen within the ovary. Lateral and inferior to the left ovary, there is a 7.3 cm x 7 cm x 6.3 cm simple cyst. This may represent a paraovarian cyst. This is unchanged. There is normal arterial and normal venous vascularity. There is no fluid in the cul-de-sac. US/Transvaginal Non- IMPRESSION: Stable left paraovarian cyst. Electronically Signed: Geovanni Retana, at 9:52 EST , Service support ,
--- NOTE | 2019-07-18 07:59 | ED.VIS.GI ---
History of Present Illness Chief Complaint: Abd Pain Informant: Patient - Abdominal Pain/Flank Pain Onset: Days - 4- Context: Gradual Onset Timing: Continuous Quality: Aching Location: LLQ Current Severity: Severe Maximum Severity: Severe Worsened by: Nothing Relieved by: - - Vicodin was helping for the last several days, but not this morning - Nausea/Vomiting/Emesis GI Symptom: Nausea, Vomiting Onset: Today Quality: Nonbilious. Negative for: Blood streaks, Coffee ground, Hematemesis - Diarrhea/Melena/Hematochezia GI Symptom: Negative for: Diarrhea, Melena, Hematochezia Associated Symptoms: Negative for: Dysuria, Frequency, Hematuria, Urgency Narrative: Patient seen here 4 days ago for the same thing, has a history of painful ovarian cysts that have been removed as a result, but now she has [place] disease and an adrenal mass, and was referred to [facility] from her aircraft general repair mechanic here because of her relative surgical complexity. She was seen at a aircraft general repair mechanic in [place] with [facility] who referred her to a specialist at [facility]. She is awaiting scheduling with that surgeon, and has not seen them yet. She is here today because the pain is uncontrollable. She has no new symptoms. She has had no syncopal or presyncopal symptoms. When she was here on she had an ultrasound, they discussed with the [facility] surgeon, and the plan was to follow-up as an outpatient. 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 (4) Type 2 diabetes mellitus Status: Chronic (5) Left adrenal mass Status: Chronic Past Medical History - Allergies and Home Meds Allergies/Adverse Reactions: Allergies penicillin V potassium [From Pen-Vee K] Allergy (Mild, Verified 07/14/19 05:58) Rash brompheniramine maleate [From Dimetapp (brompheniramine-PPA)] Allergy (Verified 07/14/19 05:58) Shortness of breath celery Allergy (Verified 07/14/19 05:58) Swelling phenylpropanolamine HCl [From Dimetapp (brompheniramine-PPA)] Allergy (Verified 07/14/19 05:58) Shortness of breath amoxicillin trihydrate [From Augmentin] Adverse Reaction (Intermediate, Verified 07/14/19 05:58) Diarrhea potassium clavulanate [From Augmentin] Adverse Reaction (Intermediate, Verified 07/14/19 05:58) Diarrhea dicyclomine HCl [From Bentyl] Adverse Reaction (Verified 07/14/19 05:58) Nausea/Vom/Diarrhea plastic tape Allergy (Uncoded 07/14/19 05:58) Rash FRUCTOSE Adverse Reaction (Uncoded 07/14/19 05:58) Nausea/Vom/Diarrhea Primary Care Physician: Miguelito Unger MD [Primary Care Provider] - 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: - - 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 Denies: Diarrhea, Melena, Hematochezia Genitourinary: Denies: Dysuria, Hematuria, Frequency Musculoskeletal: Denies: Back pain, Extremity Pain Skin: Denies: Rash, Wounds Neurological: Denies: Headache, Weakness, Numbness Physical Exam Vital Signs/Narrative: Vital Signs Temp Pulse Resp BP Pulse Ox 07/18/19 07:28 98.4 F 92 16 155/106 H 98 Inital Vital Signs reviewed: Yes General: Well nourished, Well developed, Obese, Acute Distress - in pain Head: Normocephalic, Atraumatic Eyes: Perrl, EOMI ENT: Moist mucous membranes, No rhinorrhea Neck: Supple, Nontender Cardiovascular: Regular rate, Regular rhythm, No murmurs Respiratory: No distress, CTA bilaterally, Chest nontender Abdomen: Soft, Normal bowel sounds, Tender - LLQ, Guarding - vol, - - morbidly obese. Negative for: Rebound tenderness Back: Nontender, Normal Inspection. Negative for: CVA tenderness Extremities: Nontender, No edema Skin: Normal color, No rash, No Trauma Neurological: Alert, Oriented x3, Cranial nerves II-XII grossly intact, Normal Strength, Normal Sensation Psychological: Normal Mood, - - mildly anxious Diagnostic/Tx/Re-eval Impressions Transvaginal US 07/18/19 07:55 IMPRESSION: Stable left paraovarian cyst. Electronically Signed: Geovanni Retana, at 9:52 EST , Service support , 07/18/19 07:55 Transvaginal Non- [US] Stat Laboratory Results 07/18/19 07/18/19 08:05 08:05 WBC 14.9 H RBC 4.63 Hgb 11.2 L Hct 37.0 MCV 79.9 L MCH 24.2 L MCHC 30.3 L RDW Std Deviation 46.6 H RDW Coeff of Silvia 16.3 H Plt Count 393 MPV 9.6 Immature Gran % (Auto) 0.700 Neut % (Auto) 70.9 H Lymph % (Auto) 19.6 [place] % (Auto) 6.2 Eos % (Auto) 2.2 Baso % (Auto) 0.4 Absolute Neuts (auto) 10.5 H Absolute Lymphs (auto) 2.91 Nucleated RBC % 0 Sodium 136 Potassium 4.1 Chloride 103 Carbon Dioxide 28.0 Anion Gap 5 BUN 10 Creatinine 0.56 Estim Creat Clear Calc 160.30 Est GFR (MDRD) Af Amer 174 Est GFR (MDRD) Non-Af 144 BUN/Creatinine Ratio 17.8 Glucose 119 H Calcium 9.1 - Medical Decision Making Ultrasound shows excellent blood flow to and from both ovaries including the left with a stable large cyst on the left. She had morphine, the pain became significantly worse after transvaginal ultrasound so she was given another dose at her request. On reevaluation she feels much better. She has a mild nonspecific leukocytosis. It is seen by looking at past records that she had a urinalysis 3 or 4 days ago that appeared to show infection. There is no culture in the system and the results of this were not discussed by the physicians who saw her before. I discussed this with her, she has no urinary symptoms. I will place her on a 3-day course of Bactrim in case this result has anything to do with her worsening symptoms which it may not. They are comfortable with that plan and I offered transfer if they would want to requested. She has no medical reason at this time to require emergent transfer to a higher level of care. It is obvious that she needs to follow-up. They talked and decided to be discharged and follow-up as soon as they can with this specialist. I offered a new prescription for analgesics as well as the antibiotic and they are comfortable with that overall plan we discussed reasons to return. ED Disposition - Plan for ED Patient: Disposition: Home or Assisted Living Diagnosis: Acute pelvic pain, female, Left ovarian cyst Instructions: Ovarian Cyst Prescriptions: Smz/Tmp Ds [Bactrim Ds] 1 tab PO BID #6 tab Transmission Status: Pending to [facility] Oxycodone HCl/Acetaminophen [Percocet 5/325] 1 - 2 tablet PO Q6H PRN PRN 2 Days #16 tablet PRN Reason: Pain Transmission Status: Sent to [facility] Referrals: [facility] specialist, your [Other] (abisai -- call for appt)
[2019-07-18 08:09] LABS: Absolute Lymphocyte Count 2.91 X10^3/uL (0.83-4.51); Absolute Neutrophil Count 10.5 X10^3/uL (2.0-7.7); Basophil# 0.06 X10^3/uL; Basophil% 0.4 % (0-1); Eosinophil# 0.32 X10^3/uL; Eosinophils% 2.2 % (0-5); Hemoglobin 11.2 g/dL (12.0-15.0); Lymphocyte # 2.91 X10^3/ul (4.0); Lymphocyte % 19.6 % (19-41); Mean Corp Hgb Conc 30.3 g/dL (32-36); Mean Corpuscular Hgb 24.2 pg (27.0-32.0); Mean Corpuscular Volume 79.9 fL (81-99); Mean Platelet Vol. 9.6 fl (6.2-12.0); Monocyte# 0.92 X10^3/uL; Monocyte% 6.2 % (0-10); NRBC Flagged by Analyzer 0 % (0-5); Neutrophil # 10.54 X10^3/uL (2.7-7.7); Neutrophil % 70.9 % (47-70); Platelet Count 393 K/mm3 (150-450); RBC Distribution Width CV 16.3 % (11.6-14.6); RBC Distribution Width SD 46.6 fl (35.1-43.9); Red Blood Count 4.63 M/mm3 (4.2-5.4); White Blood Count 14.9 K/mm3 (4.4-11.0)
[2019-07-18] MEDS: 0.9% Normal Saline 1,000 ML 999 ML IV (08:10)
[2019-07-18] MEDS: Ondansetron 4 MG/2 ML Vial IV (08:10)
[2019-07-18] MEDS: Ketorolac 15 MG/ML Vial IV (08:11)
[2019-07-18] MEDS: Morphine 4 MG/ML Syringe IV ×2 (08:13→10:04)
[2019-07-18 08:22] LABS: Anion Gap 5 (5-15); BUN 10 mg/dL (7-18); BUN/Creat Ratio 17.8 RATIO (10-20); Calcium,Total 9.1 mg/dL (8.5-10.1); Chloride 103 mmol/L (98-107); Creatinine, Serum 0.56 mg/dL (0.55-1.02); EST Glomerular Filtration Rate 144 mL/min (>60); Est Glom Filt Rate - Afr Amer 174 mL/min (>60); Glucose 119 mg/dL (74-106); Potassium 4.1 mmol/L (3.5-5.1); Sodium Level 136 mmol/L (136-145)
[2019-07-18 11:32] VITALS: BP 113/85; PULSE 87; RESP 16; O2SAT 95
--- NOTE | 2019-07-18 11:53 | ED.RN ---
IV DC'ED, CATHETER INTACT, SMALL GAUZE DRESSING PLACED. DISCHARGE INSTRUCTIONS GIVEN TO AND REVIEWED WITH MOTHER, MOTHER DENIES QUESTIONS OR CONCERNS AND VOICES UNDERSTANDING OF DISCHARGE INSTRUCTIONS. PT AMBULATES OUT OF ROOM WITHOUT DIFFICULTY.
== END 2019-07-18 11:54 | disposition home or self-care (01) ==
PROVIDERS: Emergency Provider Emergency Medicine; PCP Family Medicine
DX: N83.202 Unspecified ovarian cyst, left side (principal); E11.9 Type 2 diabetes mellitus without complications; E24.9 Cushing's syndrome, unspecified; R10.2 Pelvic and perineal pain; M51.26 Other intervertebral disc displacement, lumbar region; Z79.84 Long term (current) use of oral hypoglycemic drugs; Z79.899 Other long term (current) drug therapy
CPT/HCPCS: 76830; 80048; 85025; 93976; 96361; 96374; 96375; 96376; 99283; J7030; A4216; J2405

== ENCOUNTER 2019-12-18 16:52 | Emergency (ER) | payer OTHER, SELFPAY ==
[2019-12-18 16:53] VITALS: BP 117/85; PULSE 105; RESP 17; TEMP 36.9; O2SAT 98; BMI 65.9
--- NOTE | 2019-12-18 17:06 | ED.VIS.GEN ---
History of Present Illness Chief Complaint: Wound Check Informant: Patient Onset: Today Narrative: 24-year-old female presents for wound check on the left side of her abdomen. She states she had an cyst removed as well as a cyst on her ureter formed at [facility] at the same time by her urologist and OUTSOLE FLEXER. This was a month ago. She has 2 incisions which have healed very well. There is a third incision which dehisced and her OUTSOLE FLEXER has been monitoring this. It has not been infected. Patient is not on antibiotics. Today she was walking and thinks she may have hit the side of her stomach on the counter and made it bleed. The bleeding is stopped prior to arrival. She has not had drainage or discharge from it. She feels generally well. She has no abdominal pain, nausea, vomiting. Past Medical History - Allergies and Home Meds Allergies/Adverse Reactions: Allergies penicillin V potassium [From Pen-Vee K] Allergy (Mild, Verified 12/18/19 16:53) Rash brompheniramine maleate [From Dimetapp (brompheniramine-PPA)] Allergy (Verified 12/18/19 16:53) Shortness of breath celery Allergy (Verified 12/18/19 16:53) Swelling phenylpropanolamine HCl [From Dimetapp (brompheniramine-PPA)] Allergy (Verified 12/18/19 16:53) Shortness of breath amoxicillin trihydrate [From Augmentin] Adverse Reaction (Intermediate, Verified 12/18/19 16:53) Diarrhea potassium clavulanate [From Augmentin] Adverse Reaction (Intermediate, Verified 12/18/19 16:53) Diarrhea dicyclomine HCl [From Bentyl] Adverse Reaction (Verified 12/18/19 16:53) Nausea/Vom/Diarrhea plastic tape Allergy (Uncoded 12/18/19 16:53) Rash FRUCTOSE Adverse Reaction (Uncoded 12/18/19 16:53) Nausea/Vom/Diarrhea Primary Care Physician: Miguelito Unger MD [Primary Care Provider] - Prior records reviewed: Yes 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: - - 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 Smoking Status: Never smoker Alcohol: None Drugs: None Review of Systems General: Denies: Chills, Fever, Sweats Eyes: Denies: Visual changes - bilaterally, Diplopia ENT: Denies: Rhinorrhea, Sore throat Cardiovascular: Denies: Chest pain, Palpitations Respiratory: Denies: Dyspnea, Cough, Dyspnea on exertion Gastrointestinal: Denies: Abdominal pain, Nausea, Vomiting, Diarrhea, Melena, Hematochezia Musculoskeletal: Denies: Back pain, Extremity Pain Skin: Reports: Wounds Physical Exam Vital Signs/Narrative: Vital Signs Temp Pulse Resp BP Pulse Ox 12/18/19 16:53 98.4 F 105 H 17 117/85 H 98 Inital Vital Signs reviewed: Yes General: Well nourished, Well developed, No Acute Distress Head: Normocephalic Eyes: Perrl Cardiovascular: Regular rate, Tachycardia Abdomen: Soft, Nontender Back: Nontender Extremities: Nontender Skin: - - 3.5 cm ovoid shaped wound with no active bleeding. There is no surrounding cellulitis. Diagnostic/Tx/Re-eval - Medical Decision Making Presents for wound check. She has no active bleeding or signs of cellulitis around the wound. She has no abdominal pain. She states she was initially concerned because it was bleeding but since it is stopped she feels better. She thinks she bumped it on a counter which made it bleed. Patient and her mother will follow up with her OUTSOLE FLEXER tomorrow to recheck the wound. I do not believe that appears infected and she feels otherwise well. Patient will be discharged home in stable condition ED Disposition - Plan for ED Patient: Disposition: Home or Assisted Living Diagnosis: Visit for wound check Instructions: ED Wound Check Post Op Bleeding Referrals: Miguelito Unger MD [Primary Care Provider] -
== END 2019-12-18 17:28 | disposition home or self-care (01) ==
LOC: ED 17:23
PROVIDERS: Emergency Provider Student in an Organized Health Care Education/Training Program; PCP Family Medicine
DX: Z48.00 Encounter for change or removal of nonsurgical wound dressing (principal)
CPT/HCPCS: 99282

== ENCOUNTER 2020-01-05 20:22 | Emergency (ER) | payer OTHER, SELFPAY ==
[2020-01-05 20:23] VITALS: BP 159/92; PULSE 90; RESP 18; TEMP 36.1; O2SAT 97; BMI 65.8
[2020-01-05 20:45] LABS: Absolute Lymphocyte Count 3.77 X10^3/uL (0.83-4.51); Absolute Neutrophil Count 13.3 X10^3/uL (2.0-7.7); Basophil# 0.07 X10^3/uL; Basophil% 0.4 % (0-1); Eosinophils% 1.6 % (0-5); Hematocrit 38.6 % (37-47); Hemoglobin 11.8 g/dL (12.0-15.0); Lymphocyte # 3.77 X10^3/ul (4.0); Lymphocyte % 20.4 % (19-41); Mean Corp Hgb Conc 30.6 g/dL (32-36); Mean Corpuscular Hgb 24.6 pg (27.0-32.0); Mean Corpuscular Volume 80.6 fL (81-99); Mean Platelet Vol. 9.4 fl (6.2-12.0); Monocyte% 4.9 % (0-10); NRBC Flagged by Analyzer 0 % (0-5); Neutrophil # 13.32 X10^3/uL (2.7-7.7); Neutrophil % 72.2 % (47-70); Platelet Count 428 K/mm3 (150-450); RBC Distribution Width CV 15.5 % (11.6-14.6); RBC Distribution Width SD 44.8 fl (35.1-43.9); Red Blood Count 4.79 M/mm3 (4.2-5.4); White Blood Count 18.5 K/mm3 (4.4-11.0)
--- NOTE | 2020-01-05 21:01 | CT_ITS ---
STUDY: CT ABDOMEN AND PELVIS WITHOUT CONTRAST REASON FOR EXAM: Female, 24 years old. RT FLANK PAIN. Hx of kidney stones. Prior cholecystectomy, cyst removed from fallopian tube and adrenal gland removed. RADIATION DOSAGE (If Supplied By Facility): CTDIvol = ( 24.18 ) mGy, DLP = ( 1467.99 ) mGycm TECHNIQUE: Transaxial images were obtained from the dome of the diaphragm to the symphysis pubis without oral contrast, and without intravenous contrast. Sagittal and coronal images were reconstructed. Individualized dose optimization techniques were used for this CT. COMPARISON: None. FINDINGS: Lung bases are clear. Heart size is normal. The liver is unremarkable. The gallbladder is surgically absent. The spleen and pancreas are unremarkable. The adrenal glands are normal. Nonobstructing lower pole right renal stone measures 6 mm. The kidneys are otherwise unremarkable. No hydronephrosis. Ureters are normal in course and caliber. No ureteral stones. The aorta is normal in caliber. There is no free fluid, free air or organized collection. No bowel obstruction or inflammatory change. Normal appendix. Urinary bladder is unremarkable. Normal abdominal wall. Normal osseous structures. CT/Abdomen/Pelvis without Cont IMPRESSION: 1. Nonobstructing right renal stone. Otherwise negative study. No obstructive uropathy. Electronically Signed: Khushi Dodd MD at 22:08 EDT Tel , Service support ,
[2020-01-05 21:04] LABS: Anion Gap 3 (5-15); BUN 15 mg/dL (7-18); BUN/Creat Ratio 21.7 RATIO (10-20); Calcium,Total 9.3 mg/dL (8.5-10.1); Chloride 108 mmol/L (98-107); Creatinine, Serum 0.69 mg/dL (0.55-1.02); EST Glomerular Filtration Rate 113 mL/min (>60); Est Glom Filt Rate - Afr Amer 136 mL/min (>60); Estimated Creatinine Clearance 129.01 ml/min; Glucose 107 mg/dL (74-106); Potassium 4.2 mmol/L (3.5-5.1); Sodium Level 137 mmol/L (136-145)
--- NOTE | 2020-01-05 21:08 | ED.VISSUMM ---
- ER Visit Summary Date of Service: 01/05/20 Chief Complaint: Right flank pain History of Present Illness: The patient is a 24 F presenting with right flank pain. She states this started this afternoon. She has history of previous kidney stones. She tried Tylenol, naproxen, and muscle relaxer at home. She denies urinary complaints. She is scheduled to have her left ovary removed on January 19. She has no left-sided abdominal or back pain. Denies fever. Denies other complaints. Physical Examination: Vitals are stable. Patient is afebrile. Alert no acute distress. HEENT exam is unremarkable. Neck is supple. Lungs are clear and equal bilaterally. Heart is regular rate and rhythm. Abdomen is soft nontender nondistended. No guarding or rebound Back: Right CVA tenderness Extremities are unremarkable. Skin is warm and dry. Remainder of exam is unremarkable. Emergency Department Course and Treatment: Patient was given morphine, Zofran IV. CBC shows white count 18.5, hemoglobin 11.8. She is on chronic steroids for adrenal insufficiency. Chemistries unremarkable. hCG negative. CT abdomen pelvis shows nonobstructing right renal stone. Otherwise negative study. No obstructive uropathy. Patient continues to have pain and was given 1 dose of Dilaudid IV. Urinalysis is pending and will be checked out to the oncoming physician. Disposition: Pending Impression: Right flank pain This note was generated with [employer] dictation software. It may contain incorrect words, spelling, and punctuation that were not noted in review of the chart prior to signing ED Disposition - Plan for ED Patient: Instructions: ED Flank Pain Uncertain Cause Prescriptions: Naproxen [Naprosyn] 500 mg PO BID PRN #20 tab Prescription Printed Referrals: Miguelito Unger MD [Primary Care Provider] -
[2020-01-05] MEDS: Ondansetron 4 MG/2 ML Vial IV (21:10)
[2020-01-05] MEDS: Morphine 4 MG/ML Syringe IV (21:10)
[2020-01-05 21:23] LABS: Internal QC Validated? YES +Cl - CLEAR BKGD; Pregnancy, Serum, hCG Quali. NEGATIVE Negative
[2020-01-05] MEDS: HYDROmorphone 1 MG/ML Syringe IV (22:26)
--- NOTE | 2020-01-05 23:04 | ED.DEP ---
ED Disposition - Plan for ED Patient: Instructions: ED Flank Pain Uncertain Cause Prescriptions: Naproxen [Naprosyn] 500 mg PO BID PRN #20 tablet Referrals: Miguelito Unger MD [Primary Care Provider] -
[2020-01-05 23:05] VITALS: RESP 18
[2020-01-06 00:13] LABS: Squamous Epithelial Cells - UA 0 SEEN /hpf (5-10)
[2020-01-06 00:15] LABS: Color, Urine Yellow (Yellow); Glucose, Dipstick Normal (Normal); Ketone-Dipstick 5 mg/dl (Negative); Leukocyte Esterase-Dipstick 25 /ul (Negative); Nitrite-Dipstick Negative (Negative); Occult Blood-Urine 25 /ul (Negative); Protein-Dipstick 30 mg/dl (Negative); Specific Gravity, Urine 1.025 (1.002-1.030); Urine Clarity Sl. Cloudy (Clear); Urine Urobilinogen 1 mg/dl (Normal)
[2020-01-06 00:18] LABS: Urine Bilirubin Dipstick 1 mg/dL (Negative)
[2020-01-06] MEDS: Ketorolac 30 MG/ML Syringe IV (00:21)
[2020-01-06 00:22] VITALS: BP 130/63; PULSE 82; RESP 16; O2SAT 99
[2020-01-06 00:23] LABS: Mucous, Urine 3+ /hpf (<or=2+)
[2020-01-06 00:24] LABS: Red Blood Cells-Urine 0-5 SEEN /hpf (0-5); White Blood Cells 0-5 SEEN /hpf (0-5)
[2020-01-06 00:25] LABS: Bacteria 1+ /hpf (None Seen)
[2020-01-06 00:27] LABS: Transitional Epithelial - Ur 0-5 SEEN /hpf (0-5)
[2020-01-06 00:29] LABS: Amorphous Sediment R
--- NOTE | 2020-01-06 00:34 | ED.DCSUM_ITS ---
- ER Visit Summary Date of Service: 01/06/20 Chief Complaint: [Right flank pain] History of Present Illness: The patient is a 24 F [presented with complaint of right flank pain. Patient was fully evaluated by Dr. Hue Lopez. Patient had lab work that showed an elevated white blood cell count however she is on steroids. Patient also had a CT scan of the flank that showed no evidence of kidney stones and showed normal appendix. CT scan essentially unremarkable. Care of patient was turned over to me awaiting results of urinalysis and she was to be discharged home if that was unremarkable. Discharge instructions were written for by Dr. Hue Lopez.] Physical Examination: [HEENT-PERRLA, EOMI. Cranial nerves II through XII grossly intact. TMs clear. Mucous membranes moist. No adenopathy. Cardiovascular-regular rate and rhythm without murmur or ectopy Lungs-clear to auscultation, chest wall stable without crepitus or subcu emphysema Abdomen-normoactive bowel sounds, soft, nontender, no rebound or rigidity, no peritoneal signs. Back exam-patient has tenderness to palpation over the right lumbar paraspinal musculature that seems to reproduce her pain. Minimal palpation of the area causes her to tear up. As I entered the room she was resting comfortably and did not seem to be in any acute distress. Extremities-intact ?4, normal range of motion, normal pulses, atraumatic] Test Results: [] Emergency Department Course and Treatment: Patient was given a dose of Toradol while awaiting urinalysis results.] Treatment Plan: [Patient to follow-up with her primary care physician within next 2 to 3 days. Patient advised to return if worsening pain, fever, vomiting, or condition should worsen anyway.] Discharge instructions and prescription for naproxen written by Dr. Hue Lopez. Disposition: [Discharged home in stable condition] Impression: [Right flank pain] This note was generated with [employer] dictation software. It may contain incorrect words, spelling, and punctuation that were not noted in review of the chart prior to signing ED Disposition - Plan for ED Patient: Instructions: ED Flank Pain Uncertain Cause Prescriptions: Naproxen [Naprosyn] 500 mg PO BID PRN #20 tab Prescription Printed Referrals: Miguelito Unger MD [Primary Care Provider] -
[2020-01-06 00:37] VITALS: BP 130/63; PULSE 80; RESP 16; O2SAT 99
== END 2020-01-06 00:43 | disposition home or self-care (01) ==
LOC: ED 21:16
PROVIDERS: Emergency Provider Emergency Medicine; PCP Family Medicine
DX: R10.9 Unspecified abdominal pain (principal)
CPT/HCPCS: 74176; 80048; 81001; 84703; 85025; 96374; 96375; 99282; J7030; A4216; J2405

== ENCOUNTER 2020-04-10 20:54 | Emergency (ER) | payer BC, SELFPAY ==
[2020-04-10 20:55] VITALS: BP 163/90; PULSE 104; RESP 20; TEMP 36.2; O2SAT 97; BMI 66.1
--- NOTE | 2020-04-10 22:32 | ED.VIS.GEN ---
History of Present Illness Chief Complaint: Fall Informant: Patient Onset: Weeks Maximum Severity: Mild Narrative: The patient presents complaining of lumbar back pain that occurred about 2 weeks ago after she inadvertently tripped and fell and landed on her bottom her pain is still low lumbar part of her spine, coccygeal area, she followed up with orthopedic surgeon saw the environmental health specialist in that office who examined her x-rays were done that were unremarkable she was told to use muscle relaxants, and has an MRI scheduled for this Thursday she denies numbness weakness or paresthesias just persistence of the pain that is not improved with the use of the muscle relaxer, she has a prior history for back elements she has prior MRI that showed some lumbar disc disease but nothing that required surgery, she denies denies paresthesias pain that is focal to the low lumbar back she is having normal bowel bladder habits she states when she moves stands turns the pain is worse when she is still the pain is better Past Medical History - Allergies and Home Meds Allergies/Adverse Reactions: Allergies penicillin V potassium [From Pen-Vee K] Allergy (Mild, Verified 01/05/20 20:26) Rash brompheniramine maleate [From Dimetapp (brompheniramine-PPA)] Allergy (Verified 01/05/20 20:26) Shortness of breath celery Allergy (Verified 01/05/20 20:26) Swelling phenylpropanolamine HCl [From Dimetapp (brompheniramine-PPA)] Allergy (Verified 01/05/20 20:26) Shortness of breath amoxicillin trihydrate [From Augmentin] Adverse Reaction (Intermediate, Verified 01/05/20 20:26) Diarrhea potassium clavulanate [From Augmentin] Adverse Reaction (Intermediate, Verified 01/05/20 20:26) Diarrhea dicyclomine HCl [From Bentyl] Adverse Reaction (Verified 01/05/20 20:26) Nausea/Vom/Diarrhea plastic tape Allergy (Uncoded 01/05/20 20:26) Rash FRUCTOSE Adverse Reaction (Uncoded 01/05/20 20:26) Nausea/Vom/Diarrhea Primary Care Physician: Miguelito Unger MD [Primary Care Provider] - Past Medical History: - - She has a very high BMI of 66, prior lumbar back ailment 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: - - 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 Denies: Chills, Fever, Sweats Eyes: Denies: Visual changes - bilaterally, Diplopia ENT: Denies: Rhinorrhea, Sore throat Cardiovascular: Denies: Chest pain, Palpitations Respiratory: Denies: Dyspnea, Cough, Dyspnea on exertion Gastrointestinal: Denies: Abdominal pain, Nausea, Vomiting, Diarrhea, Melena, Hematochezia Genitourinary: Denies: Dysuria, Hematuria, Frequency Musculoskeletal: Denies: Back pain, Extremity Pain Skin: Denies: Rash, Wounds Neurological: Denies: Headache, Weakness, Numbness Physical Exam Vital Signs/Narrative: Vital Signs Temp Pulse Resp BP Pulse Ox 04/10/20 20:55 97.1 F L 104 H 20 H 163/90 H 97 General: Well nourished, Well developed, No Acute Distress Head: Normocephalic, Atraumatic Eyes: Perrl, EOMI ENT: Moist mucous membranes, No rhinorrhea Neck: Supple, Nontender Cardiovascular: Regular rate, Regular rhythm, No murmurs Respiratory: No distress, CTA bilaterally, Chest nontender Abdomen: Soft, Nontender, Nondistended, Normal bowel sounds Back: Normal Inspection, - - Pain to the low lumbar back area, the midline back is otherwise nontender, she has move her extremities without difficulty there is no weakness or signs of cauda equina she denies numbness or paresthesias, she can stand bear her own weight walk around the room but complains of pain to this area when Extremities: Nontender, No edema Skin: Normal color, No rash Neurological: Alert, Oriented x3, Cranial nerves II-XII grossly intact, Normal Strength, Normal Sensation Psychological: Normal affect, Normal Mood Diagnostic/Tx/Re-eval - Medical Decision Making I had a long conversation with the patient this injury occurred almost 2 weeks ago she was seen by the environmental health specialist x-rays were negative her chief concern right now is that her pain is refractory to the muscle relaxers, she had nowhere else to go she came to the emergency department, at this time given that the above given the dilemma that she is in she is given morphine 8 mg subcu [place] short course to use only at bedtime and she will discuss further pain management options with her outpatient providers and return for change in symptoms and otherwise follow the outpatient plan which includes getting the MRI in the next few days she will return for change in symptoms Home stable Final impression acute recurrent lumbar back pain after fall ED Disposition - Plan for ED Patient: Diagnosis: Lumbar back pain Instructions: ED Contusion Back, ED LUMBAR SPRAIN/STRAIN Prescriptions: Hydrocodone Bitart/Apap 5-325 [[place] 5MG-325MG] 1 tab PO Q4H PRN PRN 2 Days #10 tab PRN Reason: Pain Prescription Printed Referrals: Miguelito Unger MD [Primary Care Provider] -
[2020-04-10] MEDS: morphine 8 MG/ML Syringe SC (22:38)
[2020-04-10 23:12] VITALS: BP 149/89; PULSE 85; RESP 18; O2SAT 95
== END 2020-04-10 23:17 | disposition home or self-care (01) ==
PROVIDERS: Emergency Provider Emergency Medicine; PCP Family Medicine
DX: M54.5 Low back pain (principal); E66.9 Obesity, unspecified; Z68.44 Body mass index [BMI] 60.0-69.9, adult
CPT/HCPCS: 96374; 99283

== ENCOUNTER → 2020-04-23 10:54 | Outpatient (CLI) | payer BC, SELFPAY ==
[2020-04-10 20:55] VITALS: BMI 66.1
--- NOTE | 2020-04-23 11:03 | MRI_ITS ---
STUDY: MRI LUMBAR SPINE WITHOUT CONTRAST REASON FOR EXAM: Female, 24 years old. spondylosis with radiculopathy, BACK PAIN, LEFT LEG PAIN, PREV MRI 05/2017 TECHNIQUE: Standardized fat and water weighted pulse sequences were obtained in the sagittal and axial planes. COMPARISON: 05/29/2017 FINDINGS: T12-L1: Normal endplates. Normal disc height, hydration and morphology. Normal bilateral facet joints. Normal central canal and bilateral lateral recesses. Normal bilateral intervertebral neural foramina. Normal lumbar lordosis. There is no substantial scoliosis. Normal conus medullaris that terminates at the L1/L2. L1-2: Normal endplates. Normal disc height, hydration and morphology. Normal bilateral facet joints. Normal central canal and bilateral lateral recesses. Normal bilateral intervertebral neural foramina. L2-3: New moderate sized central disc protrusion produces a moderate spinal stenosis with mild bilateral lateral recess stenosis but no neural foraminal stenosis. L3-4: No change in the moderate sized central disc protrusion produces moderate spinal stenosis with mild bilateral lateral recess stenosis but no neural foraminal stenosis. L4-5: No change in the small central disc protrusion produces mild spinal stenosis with mild bilateral lateral recess stenosis but no neural foraminal stenosis. L5-S1: No change in the large central disc protrusion produces moderate spinal stenosis and moderate bilateral lateral recess stenosis but no neural foraminal stenosis. Normal visualized sacral ala. Severe friction related edema of the posterior subcutaneous fat. MRI/Spine Lumbar (Routine) IMPRESSION: Worsening degenerative disc disease at L2/L3 as described above. Electronically Signed: Joe Steward MD at 17:34 EST Tel , Service support ,
== END ==
PROVIDERS: PCP Family Medicine; Referring Provider Orthopaedic Surgery; Visit Provider Orthopaedic Surgery
DX: M47.26 Other spondylosis with radiculopathy, lumbar region (principal)
CPT/HCPCS: 72148

== ENCOUNTER 2020-05-09 17:05 | Emergency (ER) | payer BC, SELFPAY ==
[2020-05-09 17:06] VITALS: BP 151/82; PULSE 98; RESP 18; TEMP 36.6; O2SAT 97; BMI 66.9
--- NOTE | 2020-05-09 17:23 | ED.RN ---
1708 rt notified of ekg needed for cp.
--- NOTE | 2020-05-09 17:24 | EKG12_ITS ---
Test Reason : Blood Pressure : / mmHG Vent. Rate : 088 BPM Atrial Rate : 088 BPM P-R Int : 174 ms QRS Dur : 102 ms QT Int : 404 ms P-R-T Axes : 013 036 024 degrees QTc Int : 488 ms Normal sinus rhythm Prolonged QT Abnormal ECG Confirmed by BESSY MARCH, WESTON ([id number]), newspaper or periodical editor ADRIANE GAN ([id number]) on 05/11/2020 2:06:38 PM Referred By: ISIDRA Confirmed By:DAVID DOHERTY MD
--- NOTE | 2020-05-09 17:47 | RAD_ITS ---
STUDY: X-RAY CHEST REASON FOR EXAM: Female, 24 years old. chest pain, cough TECHNIQUE: Single AP portable view of the chest. COMPARISON: June 25, 2018. FINDINGS: Mild hazy edema is present in the right lower lobe, which could represent a developing infiltrate. The remaining lung garcia are clear. There is no demonstrated pleural abnormality. Normal size heart. Normal mediastinum and ana cristina. Normal visualized pulmonary arteries. Normal visualized aortic arch and descending thoracic aorta. Normal visualized thoracic spine. Normal visualized ribs, clavicles, and shoulders. There is no demonstrated abnormality of the visualized soft tissue structures of the upper abdomen. RAD/Chest 1 View (Portable) IMPRESSION: 1. Mild hazy edema is present in the right lower lobe, which could represent a developing infiltrate. The remaining lung garcia are clear. Electronically Signed: Asaf Sullivan MD at 18:03 EST , Service support ,
[2020-05-09 18:51] VITALS: RESP 17
[2020-05-09 19:00] VITALS: RESP 20
[2020-05-09 19:33] LABS: Absolute Lymphocyte Count 3.85 X10^3/uL (0.83-4.51); Absolute Neutrophil Count 9.9 X10^3/uL (2.0-7.7); Basophil# 0.07 X10^3/uL; Basophil% 0.5 % (0-1); Eosinophil# 0.28 X10^3/uL; Eosinophils% 1.9 % (0-5); Hematocrit 35.8 % (37-47); Hemoglobin 10.8 g/dL (12.0-15.0); Lymphocyte # 3.85 X10^3/ul (4.0); Lymphocyte % 25.9 % (19-41); Mean Corp Hgb Conc 30.2 g/dL (32-36); Mean Corpuscular Hgb 24.2 pg (27.0-32.0); Mean Corpuscular Volume 80.3 fL (81-99); Mean Platelet Vol. 9.7 fl (6.2-12.0); Monocyte# 0.72 X10^3/uL; Monocyte% 4.8 % (0-10); NRBC Flagged by Analyzer 0 % (0-5); Neutrophil # 9.85 X10^3/uL (2.7-7.7); Neutrophil % 66.2 % (47-70); Platelet Count 424 K/mm3 (150-450); RBC Distribution Width CV 15.3 % (11.6-14.6); RBC Distribution Width SD 44.5 fl (35.1-43.9); Red Blood Count 4.46 M/mm3 (4.2-5.4); White Blood Count 14.9 K/mm3 (4.4-11.0)
[2020-05-09 19:46] LABS: Internal QC Validated? YES +Cl - CLEAR BKGD; Pregnancy, Serum, hCG Quali. NEGATIVE Negative
[2020-05-09 19:54] LABS: Anion Gap 6 (5-15); BUN 12 mg/dL (7-18); BUN/Creat Ratio 19.9 RATIO (10-20); Calcium,Total 9.3 mg/dL (8.5-10.1); Chloride 105 mmol/L (98-107); EST Glomerular Filtration Rate 131 mL/min (>60); Est Glom Filt Rate - Afr Amer 159 mL/min (>60); Estimated Creatinine Clearance 148.36 ml/min; Glucose 118 mg/dL (74-106); Potassium 3.5 mmol/L (3.5-5.1); Sodium Level 138 mmol/L (136-145)
[2020-05-09 20:00] VITALS: BP 140/82; PULSE 93; RESP 17; O2SAT 95
--- NOTE | 2020-05-09 20:19 | ED.DCSUM_ITS ---
- ER Visit Summary Date of Service: 05/09/20 Chief Complaint: Chest pain History of Present Illness: The patient is a 24 F presenting with chest pain. Patient states this started on Thursday. She has had intermittent chest pain over the past couple of days. She has had constant pain for the past 6 hours. She states her boss was diagnosed with Covid. She has had a nonproductive cough. She has had chills. She denies fever. She has had diarrhea. She denies loss of sense of taste or smell. She was been tested for Covid in November and January and was negative both times. Physical Examination: Vitals are stable. Patient is afebrile. Alert no acute distress. Pulse ox 97% on room air HEENT exam is unremarkable. Neck is supple. Lungs are clear and equal bilaterally. Heart is regular rate and rhythm. Abdomen is soft nontender nondistended. Extremities are unremarkable. Skin is warm and dry. No focal neurologic deficit. Remainder of exam is unremarkable. Emergency Department Course and Treatment: EKG is sinus rhythm rate of 88 with no acute ischemic changes. Chest x-ray shows mild hazy edema is present in the right lower lobe, which could represent a developing infiltrate. The remaining lung garcia are clear. CBC shows white count 14.9, hemoglobin 10.8. Chemistries unremarkable. Troponin is negative. D-dimer negative. hCG negative. Covid negative. Due to her developing infiltrate being unilateral, I will start her on Zithromax. She is advised to continue social distancing. Advised to follow-up with her primary care physician. Advised return to ED for worsening complaints. Disposition: Discharge home Impression: Pneumonia This note was generated with [employer] dictation software. It may contain incorrect words, spelling, and punctuation that were not noted in review of the chart prior to signing ED Disposition - Plan for ED Patient: Referrals: Miguelito Unger MD [Primary Care Provider] -
[2020-05-09 20:31] LABS: D-Dimer Quantitative (DVT/PE) < 0.27 FEU/ug/m (0.27-0.49)
[2020-05-09 21:00] VITALS: BP 117/73; PULSE 88; RESP 18; O2SAT 95
[2020-05-09 21:25] VITALS: BP 134/63; PULSE 90; RESP 18; O2SAT 96
[2020-05-09] MEDS: Azithromycin 250 MG Tablet 500 MG PO (21:27)
--- NOTE | 2020-05-09 21:31 | ED.DEP ---
ED Disposition - Plan for ED Patient: Instructions: ED Pneumonia (Adult) Prescriptions: Azithromycin [Zithromax Z-Wolf] 250 mg PO UD #1 box Prescription Printed Referrals: Miguelito Unger MD [Primary Care Provider] -
== END 2020-05-09 21:42 | disposition home or self-care (01) ==
LOC: ED 18:44
PROVIDERS: Emergency Provider Emergency Medicine; PCP Family Medicine
DX: J18.9 Pneumonia, unspecified organism (principal); E11.9 Type 2 diabetes mellitus without complications; F32.9 Major depressive disorder, single episode, unspecified; Z79.84 Long term (current) use of oral hypoglycemic drugs
CPT/HCPCS: 71045; 80048; 84484; 84703; 85025; 85379; 87426; 93005; 99284; J7030; A4216

== ENCOUNTER 2020-05-14 15:36 | Emergency (ER) | payer BC, SELFPAY ==
[2020-05-14 15:36] VITALS: BP 177/67; PULSE 93; RESP 18; TEMP 37; O2SAT 98; BMI 67.1
--- NOTE | 2020-05-14 15:54 | ED.DCSUM_ITS ---
History of Present Illness Chief Complaint: Allergic Reaction Informant: Patient Onset: Today Context: Sudden Onset - after eating celery accidentally Timing: Continuous Quality: swelling Location: face Current Severity: Mild Maximum Severity: Severe Worsened by: nothing Relieved by: after using epi-pen 40 min ago Associated Symptoms: tongue tingling w/o swelling Narrative: Patient was eating chili at a restaurant, started feeling funny and then determine that it was made with celery which she has anaphylactic reaction to. Started having swelling throughout her face and tingling in her tongue, felt lightheaded. She denies feeling short of breath, tongue swelling, wheezing, chest tightness, or edema elsewhere. No syncope. She used her EpiPen pretty quickly, and has been feeling much better since then although she still has some swelling in her face. Also, she was diagnosed with pneumonia here recently and placed on a Z-Wolf, she is taken 4 out of the 5 days and she does not feel any better. She had a negative rapid Covid test at that time. Her PCP just called in a new course of antibiotics. Prior similar symptoms: Yes - Past Medical History (1) Abner disease Status: Chronic (2) History of polycystic ovarian syndrome Status: Chronic (3) Type 2 diabetes mellitus Status: Chronic Past Medical History - Allergies and Home Meds Allergies/Adverse Reactions: Allergies penicillin V potassium [From Pen-Vee K] Allergy (Mild, Verified 05/14/20 15:40) Rash brompheniramine maleate [From Dimetapp (brompheniramine-PPA)] Allergy (Verified 05/14/20 15:40) Shortness of breath celery Allergy (Verified 05/14/20 15:40) Swelling phenylpropanolamine HCl [From Dimetapp (brompheniramine-PPA)] Allergy (Verified 05/14/20 15:40) Shortness of breath amoxicillin trihydrate [From Augmentin] Adverse Reaction (Intermediate, Verified 05/14/20 15:40) Diarrhea potassium clavulanate [From Augmentin] Adverse Reaction (Intermediate, Verified 05/14/20 15:40) Diarrhea dicyclomine HCl [From Bentyl] Adverse Reaction (Verified 05/14/20 15:40) Nausea/Vom/Diarrhea plastic tape Allergy (Uncoded 05/14/20 15:40) Rash FRUCTOSE Adverse Reaction (Uncoded 05/14/20 15:40) Nausea/Vom/Diarrhea Primary Care Physician: Miguelito Unger MD [Primary Care Provider] - 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: - - 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 Denies: Sore throat Cardiovascular: Denies: Chest pain, Palpitations Respiratory: Reports: Cough. Denies: Dyspnea, Dyspnea on exertion Gastrointestinal: Denies: Abdominal pain, Nausea, Vomiting, Diarrhea, Melena, Hematochezia Genitourinary: Denies: Dysuria, Hematuria, Frequency Musculoskeletal: Reports: Swelling. Denies: Back pain, Extremity Pain Skin: Denies: Rash, Wounds Neurological: Denies: Headache, Weakness, Numbness Physical Exam Vital Signs/Narrative: Vital Signs Temp Pulse Resp BP Pulse Ox 05/14/20 15:36 98.6 F 93 18 177/67 H 98 Inital Vital Signs reviewed: Yes General: Well nourished, Well developed, Obese - morbidly, limited exam to some degree, especially w/r/t swelling/edema, No Acute Distress Head: Normocephalic, Atraumatic Eyes: Perrl, EOMI ENT: Moist mucous membranes, No rhinorrhea, - - Tongue is not edematous. No trismus. Posterior oropharynx easily visible without tongue depressor. Neck: Supple, Nontender Cardiovascular: Regular rate, Regular rhythm, No murmurs, - - No stridor. Respiratory: No distress, CTA bilaterally, Chest nontender Abdomen: Soft, Nontender, Nondistended, Normal bowel sounds Back: Nontender, Normal Inspection Extremities: Nontender, No edema Skin: Normal color, No rash, No Trauma Neurological: Alert, Oriented x3, Cranial nerves II-XII grossly intact, Normal Strength, Normal Sensation, Normal Gait, - - Dysarthria Psychological: Normal affect, Normal Mood Diagnostic/Tx/Re-eval - Medical Decision Making Patient was given Solu-Medrol and observed. After the epinephrine wore off she gradually started feeling itching in her face, cannot tell if it was edematous or not a neither could I but she did not have any oral, throat, tongue involvement. To be safe she was given another dose of epinephrine in addition to Benadryl. Plan is to observe her until she no longer requires epinephrine. At that time I suspect she will be able to be safely discharged with a prescription for another couple days of steroids. Will be checked out to oncoming physician for recheck. ED Disposition - Plan for ED Patient: Disposition: Home or Assisted Living Diagnosis: Anaphylactoid reaction due to food Instructions: ED Food Allergy Prescriptions: Prednisone [Deltasone] 40 mg PO DAILY 2 Days #4 tab Transmission Status: Pending to [facility] Epi Pen (for allergic rxn) 0.3 mg IM X1 PRN #1 syringe PRN Reason: Anaphylaxis Transmission Status: Pending to [facility] Referrals: Miguelito Unger MD [Primary Care Provider] - As Needed
[2020-05-14] MEDS: MethylPREDNISolone 125 MG/2 ML Vial IV (16:05)
[2020-05-14] MEDS: DiphenhydrAMINE 50 MG/ML Syringe 25 MG IV (17:52)
[2020-05-14 17:59] VITALS: BP 149/67; PULSE 91; RESP 18; O2SAT 96
[2020-05-14 18:49] VITALS: BP 116/50; PULSE 89; RESP 18; O2SAT 96
[2020-05-14 19:29] VITALS: BP 136/72; BP 136/73; PULSE 92; RESP 16; O2SAT 95; O2SAT 96
== END 2020-05-14 19:34 | disposition home or self-care (01) ==
PROVIDERS: Emergency Provider Emergency Medicine; PCP Family Medicine
DX: T78.40XA Allergy, unspecified, initial encounter (principal); E66.9 Obesity, unspecified; E11.9 Type 2 diabetes mellitus without complications; Z79.84 Long term (current) use of oral hypoglycemic drugs
CPT/HCPCS: 87635; 96372; 96374; 96375; 99284; J7040; A4216; U0003

== ENCOUNTER 2020-06-11 08:52 | Day surgery (SDC) | payer BC, MEDICAID, SELFPAY ==
[2020-06-11 09:19] VITALS: BP 156/69; PULSE 107; RESP 16; TEMP 36.1; O2SAT 99; BMI 65.4
[2020-06-11 09:51] LABS: Bedside Glucose 196 mg/dL (70-110)
[2020-06-11] MEDS: Lactated Ringers 1,000 ML 100 ML IV (09:57)
[2020-06-11 10:16] LABS: Internal QC Validated? YES +Cl - CLEAR BKGD; Pregnancy, Urine Negative Negative
--- NOTE | 2020-06-11 11:00 | RAD_ITS ---
PROCEDURE: Caudal block. DATE OF EXAMINATION: 06/11/2020 INDICATION: Female, 24 years old. Chronic pain. FLUOROSCOPY TIME (if supplied): (14.6 seconds) minutes/seconds Intraoperative imaging provided for caudal block. RAD/Fluor Guidance for Spine Inj IMPRESSION: Intraoperative imaging provided for caudal block. Electronically Signed: Geovanni Retana, at 12:57 EST , Service support ,
[2020-06-11] MEDS: MethylPREDNISolone Acetate 40 MG/ML Vial IM (11:11)
[2020-06-11] MEDS: Bupivacaine 0.25% 30 ML Vial (11:12)
[2020-06-11] MEDS: Lidocaine 1% (5 ml sdv) 5 ML Vial (11:13)
[2020-06-11 11:15] VITALS: BP 134/75; BP 156/69; PULSE 96; RESP 16; TEMP 36.4; O2SAT 96
[2020-06-11 11:20] VITALS: BP 129/79; BP 156/69; PULSE 97; RESP 16; O2SAT 97
--- NOTE | 2020-06-11 11:21 | PCM.OPRPT ---
Report of Operation Date of Procedure: 06/11/20 Description of Surgical Findings:: PREOPERATIVE DIAGNOSIS: Lumbosacral radiculopathy, lumbosacral degenerative disc disease, lumbosacral spinal stenosis POSTOPERATIVE DIAGNOSIS: Lumbosacral radiculopathy, lumbosacral degenerative disc disease, lumbosacral spinal stenosis PROCEDURE PERFORMED: Diagnostic/therapeutic caudal epidural steroid injection. ANESTHESIA: MAC. BLOOD LOSS: Minimal. COMPLICATIONS: None. DESCRIPTION OF PROCEDURE: History and physical of today was reviewed. Risks and benefits of the procedure were explained. The patient understood and agreed to proceed. Informed consent was obtained. IV inserted per routine protocol. The patient was taken to the operating room and placed in the prone position with a pillow positioned underneath the abdomen. The lower back and tailbone area was prepped and draped in a sterile fashion using iodine x3. Under fluoroscopy guidance on a lateral view, the caudal space was identified. The skin and subcutaneous tissue was anesthetized with approximately 3 mL of 1% lidocaine using a 25-gauge regular needle. Under direct visualization with fluoroscopy, using a 22-gauge 3-1/2-inch spinal needle, the needle was advanced via the skin through the sacral hiatus. The tip of the needle was passed through the sacrococcygeal ligament and advanced to approximately S4 area. After negative aspiration of blood or CSF, a total of 3 mL of contrast was injected to confirm correct placement of the needle as well as cephalad spread. The spread was followed to approximately L5 area. After confirmation on AP as well as lateral view and repeated negative aspiration, a total of 15 mL of preservative-free 0.125% Marcaine with 80 mg of Depo-Medrol was injected easily. The needle was then removed intact. The patient experienced no sign or symptoms of intrathecal or intravascular injection. The patient experienced no paresthesia. The procedure was completed without any apparent difficulty or any complications. The patient appeared to tolerate it well. ASSESSMENT AND PLAN: This is a 24-year-old female with lumbosacral radiculopathy, lumbosacral degenerative disc disease, lumbosacral spinal stenosis status post diagnostic/therapeutic caudal epidural steroid injection, patient will continue her current medications, patient will follow in approximately 2 weeks for reevaluation.
[2020-06-11 11:25] VITALS: BP 132/83; BP 156/69; PULSE 105; RESP 16; O2SAT 96
[2020-06-11 11:30] VITALS: BP 144/91; BP 156/69; PULSE 105; RESP 16; TEMP 36.6; O2SAT 95
[2020-06-11 12:13] VITALS: BP 156/69
== END 2020-06-11 12:14 | disposition home or self-care (01) ==
LOC: SDC 08:54 → AC 09:00
PROVIDERS: Anesthesiology; PCP Family Medicine; Referring Provider Anesthesiology Pain Medicine; Visit Provider Anesthesiology Pain Medicine
PROC: 3E0S3BZ Introduction of Anesthetic Agent into Epidural Space, Percutaneous Approach (ICD-10-PCS; CPT 62282; principal; 2020-06-11 10:15)
DX: M51.17 Intervertebral disc disorders with radiculopathy, lumbosacral region (principal); M48.07 Spinal stenosis, lumbosacral region; E66.01 Morbid (severe) obesity due to excess calories; Z68.44 Body mass index [BMI] 60.0-69.9, adult; I10 Essential (primary) hypertension; J45.909 Unspecified asthma, uncomplicated; Z79.899 Other long term (current) drug therapy; K21.9 Gastro-esophageal reflux disease without esophagitis; D64.9 Anemia, unspecified; F41.9 Anxiety disorder, unspecified; F32.9 Major depressive disorder, single episode, unspecified; Z85.44 Personal history of malignant neoplasm of other female genital organs
CPT/HCPCS: 62323; 64483; 77003; 81025; 82962; J7120; J3490

== ENCOUNTER 2020-06-21 20:15 | Emergency (ER) | payer BC, SELFPAY ==
[2020-06-21 20:15] VITALS: BP 161/93; PULSE 99; RESP 18; TEMP 36.2; O2SAT 97; BMI 65.3
--- NOTE | 2020-06-21 20:26 | ED.VIS.BACK ---
History of Present Illness Chief Complaint: Back Informant: Patient Onset: Yesterday Context: Gradual Onset Chronic pain exacerbated by: nothing in particular Timing: Continuous Quality: Aching Location: Lumbar Current Severity: Severe Maximum Severity: Severe Worsened by: improves with: Movement, Ambulation, Bending, Lifting Relieved by: Nothing Associated Symptoms: Tingling, Radiation to Left Leg, - - No bowel or bladder dysfunction or saddle anesthesia Narrative: Patient has a history of chronic low back pain from degenerative disc disease, she states it flares up periodically and this flareup has been present for 1 or 2 months. As a result, 1.5 weeks ago, she had a cortisone injection by her pain management doctor, Dr. Erickson. Her pain was improving after the shot, but as of yesterday it started to get worse and still yet worse today. She has radiation down her left lower extremity which she has had before but does not always have, along with some tingling. No bowel or bladder dysfunction, no dysuria, no abdominal pain, no fevers or chills. Able to walk. Wanting something to help her with the pain tonight. Prior similar symptoms: Yes, With Prior Back Pain - Past Medical History (1) Lumbar degenerative disc disease Status: Chronic (2) History of polycystic ovarian syndrome Status: Chronic (3) [place] disease Status: Chronic (4) Type 2 diabetes mellitus Status: Chronic (5) Lumbar disc displacement without myelopathy Status: Chronic (6) Lumbar radiculopathy Status: Chronic Past Medical History - Allergies and Home Meds Allergies/Adverse Reactions: Allergies penicillin V potassium [From Pen-Vee K] Allergy (Mild, Verified 06/21/20 20:17) Rash brompheniramine maleate [From Dimetapp (brompheniramine-PPA)] Allergy (Verified 06/21/20 20:17) Shortness of breath celery Allergy (Verified 06/21/20 20:17) Swelling phenylpropanolamine HCl [From Dimetapp (brompheniramine-PPA)] Allergy (Verified 06/21/20 20:17) Shortness of breath amoxicillin trihydrate [From Augmentin] Adverse Reaction (Intermediate, Verified 06/21/20 20:17) Diarrhea potassium clavulanate [From Augmentin] Adverse Reaction (Intermediate, Verified 06/21/20 20:17) Diarrhea dicyclomine HCl [From Bentyl] Adverse Reaction (Verified 06/21/20 20:17) Nausea/Vom/Diarrhea plastic tape Allergy (Uncoded 06/21/20 20:17) Rash FRUCTOSE Adverse Reaction (Uncoded 06/21/20 20:17) Nausea/Vom/Diarrhea Primary Care Physician: Miguelito Unger MD [Primary Care Provider] - 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: - - [employer]S A[employer] for recurrent ovarian cysts Smoking Status: Never smoker Review of Systems General: Denies: Chills, Fever, Sweats Gastrointestinal: Denies: Abdominal pain Genitourinary: Denies: Dysuria, Hematuria Musculoskeletal: Reports: Back pain, Extremity Pain. Denies: Neck pain, Swelling Neurological: Reports: Parasthesia. Denies: Headache, Weakness Physical Exam Vital Signs/Narrative: Vital Signs Temp Pulse Resp BP Pulse Ox 06/21/20 20:15 97.2 F L 99 18 161/93 H 97 Inital Vital Signs reviewed: Yes General: Well nourished, Well developed, Obese, - - NAD. Sitting comfortably in bed. Head: Normocephalic, Atraumatic Back: Normal Inspection, Negative SLR - Right - With negative cross straight leg raise, Positive SLR - Left - While sitting, at approximately 30 degrees increasing pain in low back and radicular symptoms distal left lower extremity. Negative for: CVA tenderness Extremeties: Nontender, No edema Skin: Normal color, No rash Neuro: Alert, Oriented, Normal Strength, Normal Sensation, Normal DTR Psychological: Normal affect, Normal Mood Diagnostic/Tx/Re-eval - Medical Decision Making Patient has no care plan here in the ED and is under pain management, so she understands she cannot receive prescriptions for narcotics from us, but I am happy to give her doses of analgesics here. She was given injections of morphine and Toradol as well as Norflex. She will find her at home. ED Disposition - Plan for ED Patient: Disposition: Home or Assisted Living Diagnosis: Acute exacerbation of chronic low back pain Instructions: ED Back Pain (Acute or Chronic) Referrals: Miguelito Watkins MD [STAFF PHYSICIAN] - 3-5 Days if not improving
[2020-06-21] MEDS: Orphenadrine 60 MG/2 ML Ampul IM (20:32)
[2020-06-21] MEDS: Ketorolac 30 MG/ML Syringe IM (20:32)
[2020-06-21] MEDS: Morphine 4 MG/ML Syringe IM (20:32)
[2020-06-21 21:04] VITALS: BP 149/77; PULSE 85; RESP 16; O2SAT 97
== END 2020-06-21 21:08 | disposition home or self-care (01) ==
PROVIDERS: Emergency Provider Emergency Medicine; PCP Family Medicine
DX: M54.5 Low back pain (principal); G89.29 Other chronic pain; E66.9 Obesity, unspecified
CPT/HCPCS: 96372; 99283

== ENCOUNTER 2020-07-16 05:09 | Emergency (ER) | payer BC, MEDICAID, SELFPAY ==
[2020-07-14 09:45] VITALS: BMI 65.9
[2020-07-16 05:10] VITALS: BP 143/81; PULSE 88; RESP 16; TEMP 36.8; O2SAT 99; BMI 65.8
--- NOTE | 2020-07-16 05:14 | CT_ITS ---
STUDY: CT ABDOMEN AND PELVIS WITHOUT CONTRAST REASON FOR EXAM: Female, 24 years old. Lower abdominal pain and nausea. History of cholecystectomy, left ovary and fallopian tube removal. RADIATION DOSAGE (If Supplied By Facility): CTDIvol = ( 34.45 ) mGy, DLP = ( 2083.23 ) mGycm TECHNIQUE: Transaxial images were obtained from the dome of the diaphragm to the symphysis pubis without oral contrast, and without intravenous contrast. Sagittal and coronal images were reconstructed. Individualized dose optimization techniques were used for this CT. COMPARISON: January 05, 2020. December 27, 2018. Report ultrasound pelvis February 26, 2019. FINDINGS: The visualized lung bases are unremarkable. The visualized portions of the heart are within normal limits. Hepatomegaly versus Keshia''s lobe the latter of which is normal variant. Right lobe of the liver measures 25.3 cm. No significant change since December 2018. Hepatic steatosis. There are surgical clips in the gallbladder fossa consistent with a prior cholecystectomy. Splenomegaly with spleen measuring 17.7 cm in craniocaudad dimension. Normal pancreas. Normal bilateral adrenal glands. 4 mm nonobstructing inferior pole right renal calculus. Normal left kidney. Normal visualized stomach. Normal small intestine. Normal colon. The appendix is visualized and appears normal. Normal abdominal aorta. Normal inferior vena cava. Normal retroperitoneum. No intra-abdominal free air. Normal urinary bladder. Uterus not enlarged. 4.2 x 3.7 cm right adnexal mass with attenuation suggestive of an ovarian cyst which was also present on a prior study. No left adnexal mass is seen. Patient is obese. There is a 3.8 cm umbilical hernia containing fat. Normal osseous structures. CT/Abdomen/Pelvis without Cont IMPRESSION: Hepatomegaly versus Keshia''s lobe. Fatty liver. No significant change since 2018. Stable splenomegaly. Small nonobstructing right renal calculus unchanged. Probable 4.2 cm right ovarian cyst. This can be followed with pelvic ultrasound after 2-3 menstrual cycles or sooner as clinically warranted. Umbilical hernia containing fat. No acute findings in the abdomen or pelvis. Electronically Signed: Boom Mahoney MD at 6:29 EST , Service support ,
--- NOTE | 2020-07-16 05:18 | ED.DCSUM_ITS ---
- ER Visit Summary Date of Service: 07/16/20 Chief Complaint: Abdominal pain History of Present Illness: The patient is a 24 F who presents with abdominal pain. The pain started yesterday. She describes a sharp pain in the left side of her abdomen. Does not radiate. Nothing makes it better or worse. She has nausea without vomiting. She denies diarrhea or constipation. No dysuria or hematuria. She does have a history of kidney stones but this feels different. She denies fevers. She tried ibuprofen which did not help. She has a history of multiple ovarian cysts and has had a left oophorectomy as well as a cholecystectomy. Physical Examination: Vital signs reviewed. HEENT exam unremarkable. Heart is regular rate and rhythm without murmurs. Lungs are clear to auscultation. Abdomen is soft with tenderness in the left upper quadrant. There is no guarding or rebound tenderness. Extremities reveal no edema. Skin exam normal. Neurologic exam normal. Test Results: CBC showed a white blood count of 16,000, sodium 134, potassium is 5.3 but there is hemolysis noted. Liver enzymes are slightly elevated. Urinalysis does show evidence of infection with 10-25 white blood cells. hCG negative. CAT scan of the abdomen pelvis shows hepatomegaly, unchanged. Stable splenomegaly. Right ovarian cyst noted as well. Nothing acute is seen. Emergency Department Course and Treatment: She was given morphine and Zofran. She does have evidence of urinary tract infection. I wonder if this is the cause of her pain. At this point I do not see any other acute causes. Patient will be treated with Bactrim. She will continue Tylenol and ibuprofen for pain at home. She will call her PCP today for follow-up Treatment Plan: [] Disposition: Discharge Impression: UTI This note was generated with [employer] dictation software. It may contain incorrect words, spelling, and punctuation that were not noted in review of the chart prior to signing ED Disposition - Plan for ED Patient: Disposition: Home or Assisted Living Instructions: ED Abdominal Pain Unkn Cause Fem Prescriptions: Smz/Tmp Ds [Bactrim Ds] 1 tab PO BID #14 tab Transmission Status: Pending to [facility] Referrals: Miguelito Unger MD [Primary Care Provider] -
[2020-07-16 05:37] LABS: Basophil# 0.09 X10^3/uL; Basophil% 0.6 % (0-1); Eosinophil# 0.29 X10^3/uL; Eosinophils% 1.8 % (0-5); Hemoglobin 11.3 g/dL (12.0-15.0); Lymphocyte % 22.6 % (19-41); Mean Corp Hgb Conc 30.5 g/dL (32-36); Mean Corpuscular Hgb 24.5 pg (27.0-32.0); Mean Corpuscular Volume 80.3 fL (81-99); Mean Platelet Vol. 9.6 fl (6.2-12.0); Monocyte# 0.95 X10^3/uL; NRBC Flagged by Analyzer 0 % (0-5); Neutrophil # 10.96 X10^3/uL (2.7-7.7); Neutrophil % 68.6 % (47-70); Platelet Count 429 K/mm3 (150-450); RBC Distribution Width CV 15.7 % (11.6-14.6); RBC Distribution Width SD 45.3 fl (35.1-43.9); Red Blood Count 4.61 M/mm3 (4.2-5.4)
[2020-07-16] MEDS: Morphine 4 MG/ML Syringe IV (05:40)
[2020-07-16] MEDS: Ondansetron 4 MG/2 ML Vial IV (05:40)
[2020-07-16 05:46] LABS: Bacteria 0 SEEN /hpf (None Seen); Color, Urine Yellow (Yellow); Glucose, Dipstick Normal (Normal); Ketone-Dipstick 5 mg/dl (Negative); Leukocyte Esterase-Dipstick 100 /ul (Negative); Mucous, Urine 0 SEEN /hpf (<or=2+); Nitrite-Dipstick Negative (Negative); Occult Blood-Urine Negative /ul (Negative); Protein-Dipstick Negative (Negative); Specific Gravity, Urine 1.025 (1.002-1.030); Urine Bilirubin Dipstick Negative (Negative); Urine Clarity Clear (Clear); Urine Urobilinogen Normal (Normal)
[2020-07-16 05:51] LABS: Internal QC Validated? YES +Cl - CLEAR BKGD; Pregnancy, Urine Negative Negative; Red Blood Cells-Urine 0-5 SEEN /hpf (0-5); Squamous Epithelial Cells - UA 0-5 SEEN /hpf (5-10); White Blood Cells 10-25 SEEN /hpf (0-5)
[2020-07-16 06:38] LABS: ALB/GLOB Ratio 0.6 RATIO (0.9-2.4); AST(SGOT) 70 U/L (15-37); Alanine Aminotransfer ALT/SGPT 62 U/L (13-56); Alkaline Phosphatase 78 U/L (45-117); Anion Gap 6 (5-15); BUN 12 mg/dL (7-18); Chloride 104 mmol/L (98-107); Creatinine, Serum 0.67 mg/dL (0.55-1.02); EST Glomerular Filtration Rate 116 mL/min (>60); Est Glom Filt Rate - Afr Amer 141 mL/min (>60); Estimated Creatinine Clearance 132.86 ml/min; Glucose 156 mg/dL (74-106); Lipase 108 U/L (73-393); Potassium 5.3 mmol/L (3.5-5.1); Sodium Level 134 mmol/L (136-145)
[2020-07-16] MEDS: Smz/Tmp Ds Tablet 1 TABLET PO (06:50)
== END 2020-07-16 06:50 | disposition home or self-care (01) ==
PROVIDERS: Emergency Provider Emergency Medicine; PCP Family Medicine
DX: N39.0 Urinary tract infection, site not specified (principal); Z90.721 Acquired absence of ovaries, unilateral; Z90.49 Acquired absence of other specified parts of digestive tract; Z87.442 Personal history of urinary calculi
CPT/HCPCS: 74176; 80053; 81001; 81025; 83690; 85025; 96374; 96375; 99285; A4216; J2405

== ENCOUNTER 2020-07-23 07:09 | Day surgery (SDC) | payer BC, MEDICAID, SELFPAY ==
[2020-07-23 07:35] LABS: Internal QC Validated? YES +Cl - CLEAR BKGD; Pregnancy, Urine Negative Negative
[2020-07-23 07:47] VITALS: BP 134/73; PULSE 9; RESP 16; TEMP 36.3; BMI 66.9
[2020-07-23 08:00] LABS: Bedside Glucose 153 mg/dL (70-110)
[2020-07-23] MEDS: Lactated Ringers 1,000 ML 100 ML IV (08:29)
--- NOTE | 2020-07-23 08:37 | RAD_ITS ---
STUDY: X-RAY - LUMBAR SPINE REASON FOR EXAM: Female, 24 years old. LEFT L3-S1 FACET MEDIAL BRANCH BLOCK TECHNIQUE: 3 view(s) of the lumbar spine were obtained. COMPARISON: None FINDINGS: Intraoperative imaging provided for left L3-S1 facet joint block. RAD/Lumbar Spine 2 or 3 Views IMPRESSION: Intraoperative imaging provided for left L3-S1 facet joint block. Electronically Signed: Geovanni Retana MD at 12:24 EST , Service support ,
[2020-07-23] MEDS: Bupivacaine 0.25% 30 ML Vial (08:47)
[2020-07-23] MEDS: Lidocaine 1% (5 ml sdv) 5 ML Vial (08:48)
[2020-07-23 08:55] VITALS: BP 123/65; BP 134/73; PULSE 88; RESP 17; TEMP 36.6; O2SAT 98
[2020-07-23 09:00] VITALS: BP 125/63; BP 134/73; PULSE 82; RESP 16; O2SAT 96
[2020-07-23 09:05] VITALS: BP 130/55; BP 134/73; PULSE 82; RESP 16; O2SAT 98
[2020-07-23 09:12] VITALS: BP 120/58; BP 134/73; PULSE 83; RESP 16; TEMP 36.8; O2SAT 99
[2020-07-23 09:30] VITALS: BP 134/73
--- NOTE | 2020-07-23 15:45 | PCM.OPRPT ---
Report of Operation Date of Procedure: 07/23/20 Description of Surgical Findings:: PREOPERATIVE DIAGNOSIS: Lumbosacral spondylosis, lumbosacral degenerative disc disease, lumbar facet arthropathy POSTOPERATIVE DIAGNOSIS: Lumbosacral spondylosis, lumbosacral degenerative disc disease, lumbar facet arthropathy PROCEDURE PERFORMED: Left-sided diagnostic lumbar medial branch block at, L3, L4, L5, and S1. ANESTHESIA: MAC. BLOOD LOSS: Minimal. COMPLICATIONS: None. DESCRIPTION OF PROCEDURE: History and physical of today was reviewed. Risks and benefits of the procedure were explained. The patient understood and agreed to proceed. Informed consent was obtained. IV inserted per routine protocol. The patient was taken to the operating room and placed in the prone position with a pillow positioned underneath the abdomen. The left side of her lower back was prepped and draped in a sterile fashion using iodine x3. Under fluoroscopy on oblique view, the L3 through S1 vertebral bodies were visualized. The skin and subcutaneous tissue was anesthetized with approximately 5 mL of 1% lidocaine using a 25-gauge regular needle. Under direct visualization with fluoroscopy, at approximately 25-degree angle starting on the left L3, ending on the left S1, passing through the L4 and L5, using a 22-gauge 5 inch spinal needle, the needle was advanced via the skin. The tip of the needle was maneuvered and directed towards the superior medial gutter of the transverse process at the vicinity of the medial branch. Once tip of the needle was in contact with the bone, the needle was pulled approximately 2 mm off the bone. After negative aspiration of blood or CSF and confirmation on AP as well as oblique view, a total of 8 mL of preservative-free 0.25% Marcaine was injected in divided doses between those four levels. The needles were then removed intact. The patient experienced no sign or symptoms of intrathecal or intravascular injection. The patient experienced no paresthesia. The procedure was completed without any apparent difficulty or any complications. The patient appeared to tolerate it well. ASSESSMENT AND PLAN: This is a 24-year-old female with lumbosacral spondylosis, lumbosacral degenerative disc disease, lumbar facet arthropathy status post left-sided diagnostic lumbar medial branch block at L3-S1, patient will continue her current medications, patient will follow in approximately 1 week for reevaluation.
== END 2020-07-23 09:56 | disposition home or self-care (01) ==
LOC: SDC 07:10 → AC 07:11
PROVIDERS: Anesthesiology; PCP Family Medicine; Referring Provider Anesthesiology Pain Medicine; Visit Provider Anesthesiology Pain Medicine
PROC: 3E0T3BZ Introduction of Anesthetic Agent into Peripheral Nerves and Plexi, Percutaneous Approach (ICD-10-PCS; CPT 64493; principal; 2020-07-23 08:35)
DX: M47.817 Spondylosis without myelopathy or radiculopathy, lumbosacral region (principal); M51.37 Other intervertebral disc degeneration, lumbosacral region; J45.909 Unspecified asthma, uncomplicated; G89.29 Other chronic pain; K21.9 Gastro-esophageal reflux disease without esophagitis; F41.9 Anxiety disorder, unspecified; F32.9 Major depressive disorder, single episode, unspecified; E11.9 Type 2 diabetes mellitus without complications; I10 Essential (primary) hypertension; Z79.899 Other long term (current) drug therapy; Z79.84 Long term (current) use of oral hypoglycemic drugs
CPT/HCPCS: 64493; 64494; 64495; 64483; 72100; 81025; 82962; J7120

== ENCOUNTER 2020-08-16 23:12 | Emergency (ER) | payer BC, MEDICAID, SELFPAY ==
[2020-08-16 23:13] VITALS: BP 144/93; PULSE 98; RESP 18; TEMP 36.3; O2SAT 99; BMI 66.1
--- NOTE | 2020-08-16 23:41 | ED.DEP ---
ED Disposition - Plan for ED Patient: Instructions: ED Back and Neck Pain, General Referrals: Miguelito Unger MD [Primary Care Provider] - Honorio Erickson DO [NON-STAFF] -
--- NOTE | 2020-08-16 23:43 | ED.VISSUMM ---
- ER Visit Summary Date of Service: 08/16/20 Chief Complaint: Back pain History of Present Illness: The patient is a 25 F presenting with low back pain. Patient states this started tonight. She has a history of chronic back pain and is in pain management. She is scheduled to have an injection on Thursday. She has been taking Tylenol, ibuprofen, Percocet. She states she ran out of her Percocet yesterday. Denies any injury today. Denies fever or chills. Denies incontinence. She is able to ambulate with pain. This is the same pain that she typically gets with her chronic back pain. Denies other complaints. Physical Examination: Vitals are stable. Patient is afebrile. Alert no acute distress. HEENT exam is unremarkable. Neck is supple. Lungs are clear and equal bilaterally. Heart is regular rate and rhythm. Abdomen is soft nontender nondistended. Back: Left lumbar paraspinal muscle tenderness, no midline tenderness. Straight leg raise +30 degrees on the left Extremities are unremarkable. Skin is warm and dry. No focal neurologic deficit. Normal strength and sensation, no foot drop Remainder of exam is unremarkable. Emergency Department Course and Treatment: Patient is given morphine, Zofran. She understands due to her pain management contract we are unable to give her prescriptions in the emergency department. She will follow-up with pain management tomorrow. She is advised to return to ED for worsening complaints. Disposition: Discharge home Impression: Acute on chronic back pain This note was generated with [employer] dictation software. It may contain incorrect words, spelling, and punctuation that were not noted in review of the chart prior to signing ED Disposition - Plan for ED Patient: Instructions: ED Back and Neck Pain, General Referrals: Honorio Erickson DO [NON-STAFF] - Miguelito Unger MD [Primary Care Provider] -
[2020-08-16] MEDS: Ondansetron ODT 4 MG Tablet 8 MG PO (23:48)
[2020-08-16] MEDS: morphine 10 MG/ML Syringe IM (23:48)
[2020-08-17 00:18] VITALS: BP 136/79; PULSE 79; RESP 18; O2SAT 97
== END 2020-08-17 00:19 | disposition home or self-care (01) ==
LOC: ED 23:47
PROVIDERS: Emergency Provider Emergency Medicine; PCP Family Medicine
DX: M54.5 Low back pain (principal); G89.29 Other chronic pain
CPT/HCPCS: 96372; 99283

== ENCOUNTER 2020-08-19 06:25 | Emergency (ER) | payer BC, MEDICAID, SELFPAY ==
[2020-08-19 06:27] VITALS: BP 158/78; PULSE 87; RESP 19; TEMP 36.8; O2SAT 99; BMI 67.9
[2020-08-19] MEDS: morphine 8 MG/ML Syringe IM (06:50)
--- NOTE | 2020-08-19 07:57 | ED.DCSUM_ITS ---
History of Present Illness Chief Complaint: Back Narrative: Patient presenting for evaluation secondary to back pain. Patient has an underlying history of chronic back pain secondary to bulging disks, she is under the care of Dr. Erickson. She has a scheduled spinal injection tomorrow. Patient reports that since yesterday she has been having an exacerbation of her back pain. Its in the lower back radiates down the left leg to approximately the level of the calf. Patient states that her leg gave out secondary to pain but she denies any numbness or weakness. No bowel or bladder incontinence. No fevers. No chills night sweats or unintended weight loss. No history of IV drug abuse or recent surgeries. She took Percocet it did not seem to alleviate her symptoms. Past Medical History - Allergies and Home Meds Allergies/Adverse Reactions: Allergies penicillin V potassium [From Pen-Vee K] Allergy (Mild, Verified 08/19/20 06:32) Rash brompheniramine maleate [From Dimetapp (brompheniramine-PPA)] Allergy (Verified 08/19/20 06:32) Shortness of breath celery Allergy (Verified 08/19/20 06:32) Swelling phenylpropanolamine HCl [From Dimetapp (brompheniramine-PPA)] Allergy (Verified 08/19/20 06:32) Shortness of breath amoxicillin trihydrate [From Augmentin] Adverse Reaction (Intermediate, Verified 08/19/20 06:32) Diarrhea potassium clavulanate [From Augmentin] Adverse Reaction (Intermediate, Verified 08/19/20 06:32) Diarrhea dicyclomine HCl [From Bentyl] Adverse Reaction (Verified 08/19/20 06:32) Nausea/Vom/Diarrhea plastic tape Allergy (Uncoded 08/19/20 06:32) Rash FRUCTOSE Adverse Reaction (Uncoded 08/19/20 06:32) Nausea/Vom/Diarrhea Primary Care Physician: Miguelito Unger MD [Primary Care Provider] - Prior records reviewed: Yes Past Medical History: - - back pain, diabetes 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: - - HE[employer] for recurrent ovarian cysts Lives: With Family Smoking Status: Never smoker Alcohol: None Drugs: None Review of Systems All systems negative except as indicated General: Denies: Chills, Fever, Sweats Eyes: Denies: Visual changes - bilaterally, Diplopia ENT: Denies: Rhinorrhea, Sore throat Cardiovascular: Denies: Chest pain, Palpitations Respiratory: Denies: Dyspnea, Cough, Dyspnea on exertion Gastrointestinal: Denies: Abdominal pain, Nausea, Vomiting, Diarrhea, Melena, Hematochezia Genitourinary: Denies: Dysuria, Hematuria, Frequency Musculoskeletal: Reports: Back pain Skin: Denies: Rash, Wounds Neurological: Denies: Headache, Weakness, Numbness Physical Exam Vital Signs/Narrative: Vital Signs Temp Pulse Resp BP Pulse Ox 08/19/20 06:27 98.2 F 87 19 H 158/78 H 99 Inital Vital Signs reviewed: Yes General: Well nourished, Well developed, Obese Head: Normocephalic, Atraumatic Eyes: Perrl, EOMI ENT: Moist mucous membranes, No rhinorrhea Neck: Supple, Nontender Cardiovascular: Regular rate, Regular rhythm, No murmurs Respiratory: No distress, CTA bilaterally, Chest nontender Abdomen: Soft, Nontender, Nondistended, Normal bowel sounds Back: Normal Inspection, Nontender Extremeties: Nontender, No edema, - - 2+ radial, 2+ DP and PT pulses bilaterally symmetric Skin: Normal color, No rash Neuro: Alert, Oriented, Normal Strength, Normal Sensation, Normal Gait, - - 5 out of 5 strength of the hip knee ankle and foot normal sensation over all dermatomes. 1+ patellar and Achilles reflexes negative clonus and Babinski. Positive straight leg raise bilaterally. Psychological: Normal affect Diagnostic/Tx/Re-eval - Medical Decision Making Patient is a past history of low back pain secondary to bulging disks. On she has no red flag signs or symptoms at this time and her symptomatology really seems consistent with an exacerbation of her lumbar radiculopathy. I do not believe that further work-up or IV are indicated. Patient was given IM morphine, she was able to ambulate in the emergency department although she states that her pain is not at all improved. Patient was given an additional dose of IM morphine. Patient's pain status will be followed up on by the oncoming physician, at which point the patient will be discharged. Patient has a follow-up appointment with her business development specialist tomorrow she was recommended to keep that. ED Disposition - Plan for ED Patient: Disposition: Home or Assisted Living Diagnosis: Lumbar radiculopathy, acute Instructions: ED Sciatica Referrals: Honorio Erickson DO [NON-STAFF] - Keep Amy appointment
[2020-08-19] MEDS: Morphine 4 MG/ML Syringe 8 MG IM (08:00)
[2020-08-19] MEDS: Ondansetron ODT 4 MG Tablet PO (08:18)
[2020-08-19 09:42] VITALS: BP 121/60; PULSE 84; RESP 15; O2SAT 95
[2020-08-19] MEDS: oxyCODONE 5 MG Tablet 10 MG PO (09:46)
== END 2020-08-19 09:52 | disposition home or self-care (01) ==
PROVIDERS: Emergency Provider Emergency Medicine; PCP Family Medicine
DX: M54.16 Radiculopathy, lumbar region (principal); E66.9 Obesity, unspecified; E11.9 Type 2 diabetes mellitus without complications; Z79.84 Long term (current) use of oral hypoglycemic drugs
CPT/HCPCS: 96372; 99283; A4216

== ENCOUNTER 2020-08-20 08:38 | Day surgery (SDC) | payer BC, MEDICAID, SELFPAY ==
[2020-08-19 06:27] VITALS: BMI 67.9
[2020-08-20] VITALS (7 sets, daily range): BP systolic 128–145; BP diastolic 70–80; PULSE 82–87; RESP 16; TEMP 36.2–36.6; O2SAT 96–99; BMI 67.6
[2020-08-20 09:25] LABS: Internal QC Validated? YES +Cl - CLEAR BKGD; Pregnancy, Urine Negative Negative
[2020-08-20 09:51] LABS: Bedside Glucose 150 mg/dL (70-110)
--- NOTE | 2020-08-20 10:00 | RAD_ITS ---
PROCEDURE: Caudal block. DATE OF EXAMINATION: 08/20/2020 INDICATION: Female, 25 years old. Low back pain. FLUOROSCOPY TIME (if supplied): (13 seconds) minutes/seconds. Single lateral view was submitted. RAD/Fluor Guidance for Spine Inj IMPRESSION: Intraoperative imaging provided for caudal block. Electronically Signed: Geovanni Retana MD at 15:27 EDT , Service support ,
[2020-08-20] MEDS: MethylPREDNISolone Acetate 80 MG/ML Vial (10:04)
[2020-08-20] MEDS: MethylPREDNISolone Acetate 40 MG/ML Vial IM (10:04)
[2020-08-20] MEDS: Bupivacaine 0.25% 30 ML Vial (10:04)
[2020-08-20] MEDS: Lidocaine 1% (5 ml sdv) 5 ML Vial (10:06)
--- NOTE | 2020-08-20 12:49 | PCM.OPRPT ---
Report of Operation Date of Procedure: 08/20/20 Description of Surgical Findings:: PREOPERATIVE DIAGNOSIS: Lumbosacral radiculopathy, lumbosacral degenerative disc disease, lumbosacral spinal stenosis POSTOPERATIVE DIAGNOSIS: Lumbosacral radiculopathy, lumbosacral degenerative disc disease, lumbosacral spinal stenosis PROCEDURE PERFORMED: Diagnostic/therapeutic caudal epidural steroid injection. ANESTHESIA: MAC. BLOOD LOSS: Minimal. COMPLICATIONS: None. DESCRIPTION OF PROCEDURE: History and physical of today was reviewed. Risks and benefits of the procedure were explained. The patient understood and agreed to proceed. Informed consent was obtained. IV inserted per routine protocol. The patient was taken to the operating room and placed in the prone position with a pillow positioned underneath the abdomen. The lower back and tailbone area was prepped and draped in a sterile fashion using iodine x3. Under fluoroscopy guidance on a lateral view, the caudal space was identified. The skin and subcutaneous tissue was anesthetized with approximately 3 mL of 1% lidocaine using a 25-gauge regular needle. Under direct visualization with fluoroscopy, using a 22-gauge 3-1/2-inch spinal needle, the needle was advanced via the skin through the sacral hiatus. The tip of the needle was passed through the sacrococcygeal ligament and advanced to approximately S4 area. After negative aspiration of blood or CSF, a total of 3 mL of contrast was injected to confirm correct placement of the needle as well as cephalad spread. The spread was followed to approximately L5 area. After confirmation on AP as well as lateral view and repeated negative aspiration, a total of 15 mL of preservative-free 0.125% Marcaine with 80 mg of Depo-Medrol was injected easily. The needle was then removed intact. The patient experienced no sign or symptoms of intrathecal or intravascular injection. The patient experienced no paresthesia. The procedure was completed without any apparent difficulty or any complications. The patient appeared to tolerate it well. ASSESSMENT AND PLAN: This is a 25-year-old female with lumbosacral radiculopathy, lumbosacral degenerative disc disease, lumbosacral spinal stenosis status post diagnostic/therapeutic caudal epidural steroid injection patient will continue her current medications, patient will follow in approximately 2 weeks for reevaluation.
== END 2020-08-20 10:55 | disposition home or self-care (01) ==
LOC: SDC 08:40 → AC 08:40
PROVIDERS: Anesthesiology; PCP Family Medicine; Referring Provider Anesthesiology Pain Medicine; Visit Provider Anesthesiology Pain Medicine
PROC: 3E0S3BZ Introduction of Anesthetic Agent into Epidural Space, Percutaneous Approach (ICD-10-PCS; CPT 62282; principal; 2020-08-20 09:55)
DX: M51.17 Intervertebral disc disorders with radiculopathy, lumbosacral region (principal); M48.07 Spinal stenosis, lumbosacral region; J45.909 Unspecified asthma, uncomplicated; F41.9 Anxiety disorder, unspecified; F32.9 Major depressive disorder, single episode, unspecified; Z91.81 History of falling; Z79.899 Other long term (current) drug therapy; E11.9 Type 2 diabetes mellitus without complications; K21.9 Gastro-esophageal reflux disease without esophagitis; Z79.84 Long term (current) use of oral hypoglycemic drugs; I10 Essential (primary) hypertension
CPT/HCPCS: 01992; 62323; 64483; 77003; 81025; 82962; J7120; J3490

== ENCOUNTER 2020-08-27 18:59 | Emergency (ER) | payer BC, MEDICAID, SELFPAY ==
[2020-08-20 09:25] VITALS: BMI 67.6
[2020-08-27 19:00] VITALS: BP 183/102; PULSE 106; RESP 18; TEMP 35.7; O2SAT 94; BMI 65.7
[2020-08-27 19:02] VITALS: BP 183/102; PULSE 106; RESP 18; TEMP 35.7; O2SAT 94
--- NOTE | 2020-08-27 19:36 | CT_ITS ---
INDICATION: abdominal pain RLQ HX of cysts EXAMINATION: CT Abdomen And Pelvis W/O Contrast Injection TECHNIQUE: Helically acquired images were obtained of the abdomen and pelvis without the use of IV contrast. A radiation dose optimization technique was used for this scan. Oral contrast: None. COMPARISON: 07/16/2020 FINDINGS: Evaluation of the solid organs and vascular structures is limited without intravenous contrast. Visualized lung bases: Unremarkable Liver: Diffusely hypodense consistent with fatty liver. Gallbladder: Surgically absent. Spleen: Unremarkable Pancreas: Unremarkable Adrenal Glands: Left adrenal gland is surgically absent. Right adrenal gland appears normal. Kidneys: 6 mm nonobstructing right inferior pole calculi. GI Tract: Unremarkable Vasculature: Unremarkable Lymphadenopathy: None Peritoneum: No ascites. Bladder: Unremarkable Reproductive organs: Unremarkable Bones/Soft tissues: Small fat-containing supraumbilical hernia. CT/Abdomen/Pelvis without Cont IMPRESSION: No acute abnormalities in the abdomen or pelvis. Nonobstructing 6 mm right lower pole renal stone. Small fat-containing supraumbilical hernia. Diffuse hepatic steatosis. Electronically Signed: Torito Jarrell MD at 20:45 EDT Tel , Service support ,
[2020-08-27 20:04] LABS: Absolute Neutrophil Count 14.8 X10^3/uL (2.0-7.7); Basophil# 0.06 X10^3/uL; Basophil% 0.3 % (0-1); Eosinophil# 0.34 X10^3/uL; Eosinophils% 1.7 % (0-5); Hematocrit 39.2 % (37-47); Hemoglobin 12.1 g/dL (12.0-15.0); Mean Corp Hgb Conc 30.9 g/dL (32-36); Mean Corpuscular Hgb 24.6 pg (27.0-32.0); Mean Corpuscular Volume 79.7 fL (81-99); Mean Platelet Vol. 9.7 fl (6.2-12.0); Monocyte# 0.97 X10^3/uL; NRBC Flagged by Analyzer 0 % (0-5); Neutrophil % 76.2 % (47-70); Platelet Count 441 K/mm3 (150-450); RBC Distribution Width CV 15.2 % (11.6-14.6); RBC Distribution Width SD 43.6 fl (35.1-43.9); Red Blood Count 4.92 M/mm3 (4.2-5.4); White Blood Count 19.4 K/mm3 (4.4-11.0)
--- NOTE | 2020-08-27 20:18 | ED.RN ---
dr. turner verbal order to go to [facility] without result
[2020-08-27 20:21] LABS: ALB/GLOB Ratio 0.7 RATIO (0.9-2.4); AST(SGOT) 48 U/L (15-37); Alanine Aminotransfer ALT/SGPT 71 U/L (13-56); Albumin, Serum 3.3 g/dL (3.2-5.0); Alkaline Phosphatase 85 U/L (45-117); Anion Gap 9 (5-15); BUN 15 mg/dL (7-18); BUN/Creat Ratio 21.5 RATIO (10-20); Calcium,Total 9.3 mg/dL (8.5-10.1); Chloride 104 mmol/L (98-107); EST Glomerular Filtration Rate 111 mL/min (>60); Est Glom Filt Rate - Afr Amer 134 mL/min (>60); Estimated Creatinine Clearance 126.09 ml/min; Globulin 4.8 g/dL (2.2-4.2); Glucose 153 mg/dL (74-106); Potassium 4.2 mmol/L (3.5-5.1); Protein, Total 8.1 g/dL (6.4-8.2); Sodium Level 139 mmol/L (136-145)
[2020-08-27 20:55] LABS: Mucous, Urine 0 SEEN /hpf (<or=2+); Red Blood Cells-Urine 0 SEEN /hpf (0-5)
--- NOTE | 2020-08-27 20:58 | ED.VIS.GEN ---
History of Present Illness Chief Complaint: Abd Pain Informant: Patient, Family Narrative: 25-year-old female with history of chronic back pain states that she recently had a steroid injection. She has adrenal insufficiency and believes that this has put her into a adrenal insufficiency crisis. She states that she talk to her program counselor as this is happened before and they placed her on Solu-Cortef today. She has had some intermittent fever since the injection so she went to urgent care and they pressed on her abdomen and she had some right lower quadrant pain so they told her to come to the emergency room. The patient thinks she may have Covid. She notes some urinary frequency and wonders if she has a UTI. Mom states she has a history of ovarian cyst and thinks that that may be it. Patient denies any new neurologic symptoms. She denies any rashes or swelling at the injection sites. - Past Medical History (1) [place] disease Status: Chronic (2) History of polycystic ovarian syndrome Status: Chronic (3) Left adrenal mass Status: Chronic (4) Lumbar degenerative disc disease Status: Chronic (5) Lumbar radiculopathy Status: Chronic (6) Type 2 diabetes mellitus Status: Chronic Past Medical History - Allergies and Home Meds Allergies/Adverse Reactions: Allergies penicillin V potassium [From Pen-Vee K] Allergy (Mild, Verified 08/27/20 19:02) Rash brompheniramine maleate [From Dimetapp (brompheniramine-PPA)] Allergy (Verified 08/27/20 19:02) Shortness of breath celery Allergy (Verified 08/27/20 19:02) Swelling phenylpropanolamine HCl [From Dimetapp (brompheniramine-PPA)] Allergy (Verified 08/27/20 19:02) Shortness of breath amoxicillin trihydrate [From Augmentin] Adverse Reaction (Intermediate, Verified 08/27/20 19:02) Diarrhea potassium clavulanate [From Augmentin] Adverse Reaction (Intermediate, Verified 08/27/20 19:02) Diarrhea dicyclomine HCl [From Bentyl] Adverse Reaction (Verified 08/27/20 19:02) Nausea/Vom/Diarrhea plastic tape Allergy (Uncoded 08/27/20 19:02) Rash FRUCTOSE Adverse Reaction (Uncoded 08/27/20 19:02) Nausea/Vom/Diarrhea Primary Care Physician: Miguelito Unger MD [Primary Care Provider] - As Needed 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: - - [employer] CHIEF for recurrent ovarian cysts Lives: With Family Smoking Status: Never smoker Drugs: None Review of Systems General: Reports: Fever, Malaise. Denies: Chills, Sweats Eyes: Denies: Visual changes - bilaterally, Diplopia ENT: Denies: Rhinorrhea, Sore throat Cardiovascular: Denies: Chest pain, Palpitations Respiratory: Denies: Dyspnea, Cough, Dyspnea on exertion Gastrointestinal: Reports: Abdominal pain. Denies: Nausea, Vomiting, Diarrhea, Melena, Hematochezia Genitourinary: Reports: Frequency. Denies: Dysuria, Hematuria Musculoskeletal: Reports: Back pain - Chronic no change. Denies: Extremity Pain Skin: Denies: Rash, Wounds Neurological: Denies: Headache, Weakness, Numbness Physical Exam Vital Signs/Narrative: Vital Signs Temp Pulse Resp BP Pulse Ox 08/27/20 19:02 96.3 F L 106 H 18 183/102 H 94 08/27/20 19:00 96.3 F L 106 H 18 183/102 H 94 Inital Vital Signs reviewed: Yes General: Well nourished, Well developed, Obese - Morbid obesity, No Acute Distress Head: Normocephalic, Atraumatic Eyes: Perrl, EOMI ENT: Moist mucous membranes, No rhinorrhea Neck: Supple, Nontender Cardiovascular: Regular rate, Regular rhythm, No murmurs Respiratory: No distress, CTA bilaterally, Chest nontender Abdomen: Soft, Nondistended, Normal bowel sounds, Tender - Minimal tenderness right lower quadrant Back: Nontender, Normal Inspection, - - Patient's body habitus precludes confident examination but I do not see any erythema or infectious areas to suggest underlying abscess Extremities: Nontender, No edema Skin: Normal color, No rash Neurological: Alert, Oriented x3, Cranial nerves II-XII grossly intact, Normal Strength, Normal Sensation Psychological: Normal affect, Normal Mood Diagnostic/Tx/Re-eval Clinical Impression(s) from Imaging Studies Abdomen/Pelvis CT 08/27/20 19:36 IMPRESSION: No acute abnormalities in the abdomen or pelvis. Nonobstructing 6 mm right lower pole renal stone. Small fat-containing supraumbilical hernia. Diffuse hepatic steatosis. Electronically Signed: Torito Jarrell MD at 20:45 EDT Tel , Service support , Laboratory Last Values WBC 19.4 K/mm3 (4.4-11.0) H 08/27/20 19:53 RBC 4.92 M/mm3 (4.2-5.4) 08/27/20 19:53 Hgb 12.1 g/dL (12.0-15.0) 08/27/20 19:53 Hct 39.2 % (37-47) 08/27/20 19:53 MCV 79.7 fL (81-99) L 08/27/20 19:53 MCH 24.6 pg (27.0-32.0) L 08/27/20 19:53 MCHC 30.9 g/dL (32-36) L 08/27/20 19:53 RDW Std Deviation 43.6 fl (35.1-43.9) 08/27/20 19:53 RDW Coeff of Silvia 15.2 % (11.6-14.6) H 08/27/20 19:53 Plt Count 441 K/mm3 (150-450) 08/27/20 19:53 MPV 9.7 fl (6.2-12.0) 08/27/20 19:53 Immature Gran % (Auto) 0.800 % (0.0-0.9) 08/27/20 19:53 Neut % (Auto) 76.2 % (47-70) H 08/27/20 19:53 Lymph % (Auto) 16.0 % (19-41) L 08/27/20 19:53 [place] % (Auto) 5.0 % (0-10) 08/27/20 19:53 Eos % (Auto) 1.7 % (0-5) 08/27/20 19:53 Baso % (Auto) 0.3 % (0-1) 08/27/20 19:53 Absolute Neuts (auto) 14.8 X10^3/uL (2.0-7.7) H 08/27/20 19:53 Absolute Lymphs (auto) 3.10 X10^3/uL (0.83-4.51) 08/27/20 19:53 Nucleated RBC % 0 % (0-5) 08/27/20 19:53 Sodium 139 mmol/L (136-145) 08/27/20 19:53 Potassium 4.2 mmol/L (3.5-5.1) 08/27/20 19:53 Chloride 104 mmol/L (98-107) 08/27/20 19:53 Carbon Dioxide 26.0 mmol/L (21.0-32.0) 08/27/20 19:53 Anion Gap 9 (5-15) 08/27/20 19:53 BUN 15 mg/dL (7-18) 08/27/20 19:53 Creatinine 0.70 mg/dL (0.55-1.02) 08/27/20 19:53 Estim Creat Clear Calc 126.09 ml/min 08/27/20 19:53 Est GFR (MDRD) Af Amer 134 mL/min (>60) 08/27/20 19:53 Est GFR (MDRD) Non-Af 111 mL/min (>60) 08/27/20 19:53 BUN/Creatinine Ratio 21.5 RATIO (10-20) H 08/27/20 19:53 Glucose 153 mg/dL (74-106) H 08/27/20 19:53 Calcium 9.3 mg/dL (8.5-10.1) 08/27/20 19:53 Total Bilirubin 0.20 mg/dL (0.20-1.00) 08/27/20 19:53 AST 48 U/L (15-37) H 08/27/20 19:53 ALT 71 U/L (13-56) H 08/27/20 19:53 Alkaline Phosphatase 85 U/L (45-117) 08/27/20 19:53 Total Protein 8.1 g/dL (6.4-8.2) 08/27/20 19:53 Albumin 3.3 g/dL (3.2-5.0) 08/27/20 19:53 Globulin 4.8 g/dL (2.2-4.2) H 08/27/20 19:53 Albumin/Globulin Ratio 0.7 RATIO (0.9-2.4) L 08/27/20 19:53 Urine Color Yellow (Yellow) 08/27/20 20:54 Urine Clarity Sl. Cloudy (Clear) 08/27/20 20:54 Urine pH 7.0 (5.0 - 8.0) 08/27/20 20:54 Ur Specific [place] 1.015 (1.002-1.030) 08/27/20 20:54 Urine Protein 15 mg/dl (Negative) H 08/27/20 20:54 Urine Glucose (UA) Normal mg/dl (Normal) 08/27/20 20:54 Urine Ketones Negative mg/dl (Negative) 08/27/20 20:54 Urine Occult Blood 10 /ul (Negative) H 08/27/20 20:54 Urine Nitrite Negative (Negative) 08/27/20 20:54 Urine Bilirubin Negative mg/dL (Negative) 08/27/20 20:54 Urine Urobilinogen Normal mg/dl (Normal) 08/27/20 20:54 Ur Leukocyte Esterase 25 /ul (Negative) H 08/27/20 20:54 Urine RBC 0 SEEN /hpf (0-5) 08/27/20 20:54 Urine WBC 0-5 SEEN /hpf (0-5) 08/27/20 20:54 Ur Squamous Epith Cells 5-10 SEEN /hpf (5-10) 08/27/20 20:54 Urine Bacteria 2+ /hpf (None Seen) 08/27/20 20:54 Urine Mucus 0 SEEN /hpf (<or=2+) 08/27/20 20:54 Urine Test Negative Negative 08/27/20 20:54 - Medical Decision Making CT abdomen pelvis does not demonstrate any appendicitis or obvious ovarian cyst per radiology. White count is elevated but she is on steroids. Her urinalysis does not show any overt infection and does have some evidence of contamination. Her Covid test is negative. At this point patient will be discharged home to follow-up with her doctors return if worsening or concerns ED Disposition - Plan for ED Patient: Disposition: Home or Assisted Living Diagnosis: Abdominal pain, Adrenal insufficiency Instructions: ED Abdominal Pain Unkn Cause Fem Referrals: Miguelito Unger MD [Primary Care Provider] - As Needed Additional Instructions: Please follow-up with your program counselor and your doctors as scheduled
[2020-08-27 21:01] LABS: Internal QC Validated? YES +Cl - CLEAR BKGD; Pregnancy, Urine Negative Negative
[2020-08-27 21:02] LABS: Color, Urine Yellow (Yellow); Glucose, Dipstick Normal (Normal); Ketone-Dipstick Negative (Negative); Leukocyte Esterase-Dipstick 25 /ul (Negative); Nitrite-Dipstick Negative (Negative); Occult Blood-Urine 10 /ul (Negative); Protein-Dipstick 15 mg/dl (Negative); Specific Gravity, Urine 1.015 (1.002-1.030); Urine Bilirubin Dipstick Negative (Negative); Urine Clarity Sl. Cloudy (Clear); Urine Urobilinogen Normal (Normal)
[2020-08-27 21:10] LABS: White Blood Cells 0-5 SEEN /hpf (0-5)
[2020-08-27 21:11] LABS: Bacteria 2+ /hpf (None Seen); Squamous Epithelial Cells - UA 5-10 SEEN /hpf (5-10)
[2020-08-27 21:31] VITALS: RESP 18
== END 2020-08-27 21:32 | disposition home or self-care (01) ==
PROVIDERS: Emergency Provider Emergency Medicine; PCP Family Medicine
DX: R10.31 Right lower quadrant pain (principal); E27.40 Unspecified adrenocortical insufficiency; E66.01 Morbid (severe) obesity due to excess calories; E11.9 Type 2 diabetes mellitus without complications; Z79.84 Long term (current) use of oral hypoglycemic drugs
CPT/HCPCS: 74176; 80053; 81001; 81025; 85025; 87426; 99283

== ENCOUNTER 2020-09-20 08:54 | Emergency (ER) | payer BC, MEDICAID, SELFPAY ==
[2020-09-20 08:54] VITALS: BP 161/93; PULSE 96; RESP 18; TEMP 36.6; O2SAT 98; BMI 65.3
--- NOTE | 2020-09-20 09:04 | ED.VIS.GEN ---
History of Present Illness Chief Complaint: Abd Pain Informant: Patient Onset: Yesterday Context: Gradual Onset Timing: Continuous Current Severity: Moderate Maximum Severity: Moderate Narrative: The patient is a 25-year-old female presents to the emergency department with nausea and vomiting and concern for blood in her emesis. Patient has longstanding history of GERD. She is on Prilosec and Carafate. She states yesterday, she had some significant heartburn. She states she vomited twice and seemed like there was some red blood and dark blood. She is not had any change in stools. She denies any fever or chills. She states that she is trying to get scheduled for outpatient endoscopy, but states she has not been scheduled yet. She states she is been compliant with her medications. She does have history of anemia, but is on no anticoagulants. Prior similar symptoms: Yes Recent Illness/Hospitalization: No Past Medical History - Allergies and Home Meds Allergies/Adverse Reactions: Allergies penicillin V potassium [From Pen-Vee K] Allergy (Mild, Verified 09/20/20 08:57) Rash brompheniramine maleate [From Dimetapp (brompheniramine-PPA)] Allergy (Verified 09/20/20 08:57) Shortness of breath celery Allergy (Verified 09/20/20 08:57) Swelling phenylpropanolamine HCl [From Dimetapp (brompheniramine-PPA)] Allergy (Verified 09/20/20 08:57) Shortness of breath amoxicillin trihydrate [From Augmentin] Adverse Reaction (Intermediate, Verified 09/20/20 08:57) Diarrhea potassium clavulanate [From Augmentin] Adverse Reaction (Intermediate, Verified 09/20/20 08:57) Diarrhea dicyclomine HCl [From Bentyl] Adverse Reaction (Verified 09/20/20 08:57) Nausea/Vom/Diarrhea plastic tape Allergy (Uncoded 09/20/20 08:57) Rash FRUCTOSE Adverse Reaction (Uncoded 09/20/20 08:57) Nausea/Vom/Diarrhea Primary Care Physician: Miguelito Unger MD [Primary Care Provider] - Prior records reviewed: Yes Past Medical History: - - Polycystic ovarian disease, GERD, obesity 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: noncontributory, - - 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 Denies: Diarrhea, Melena, Hematochezia Genitourinary: Denies: Dysuria, Hematuria, Frequency Musculoskeletal: Denies: Back pain, Extremity Pain Skin: Denies: Rash, Wounds Neurological: Denies: Headache, Weakness, Numbness Physical Exam Vital Signs/Narrative: Vital Signs Temp Pulse Resp BP Pulse Ox 09/20/20 08:54 98 F 96 18 161/93 H 98 Inital Vital Signs reviewed: Yes General: Well nourished, Well developed, Obese, No Acute Distress Head: Normocephalic, Atraumatic Eyes: Perrl, EOMI ENT: Moist mucous membranes, No rhinorrhea Neck: Supple, Nontender Cardiovascular: Regular rate, Regular rhythm, No murmurs Respiratory: No distress, CTA bilaterally, Chest nontender Abdomen: Soft, Nontender, Nondistended, Normal bowel sounds Back: Nontender, Normal Inspection Extremities: Nontender, No edema Skin: Normal color, No rash Neurological: Alert, Oriented x3, Cranial nerves II-XII grossly intact, Normal Strength, Normal Sensation Psychological: Normal affect, Normal Mood Diagnostic/Tx/Re-eval Abnormal Lab Results 09/20/20 09/20/20 09:45 09:45 WBC 12.9 H RBC 4.79 Hgb 11.7 L Hct 38.3 MCV 80.0 L MCH 24.4 L MCHC 30.5 L RDW Std Deviation 43.6 RDW Coeff of Silvia 15.0 H Plt Count 408 MPV 9.5 Immature Gran % (Auto) 0.600 Neut % (Auto) 69.6 Lymph % (Auto) 21.5 [place] % (Auto) 5.7 Eos % (Auto) 2.2 Baso % (Auto) 0.4 Absolute Neuts (auto) 9.0 H Absolute Lymphs (auto) 2.76 Nucleated RBC % 0 Sodium 137 Potassium 3.8 Chloride 105 Carbon Dioxide 27.0 Anion Gap 5 BUN 11 Creatinine 0.61 Estim Creat Clear Calc 144.69 Est GFR (MDRD) Af Amer 157 Est GFR (MDRD) Non-Af 130 BUN/Creatinine Ratio 18.1 Glucose 135 H Calcium 9.1 Total Bilirubin 0.30 AST 30 ALT 49 Alkaline Phosphatase 70 Total Protein 7.6 Albumin 3.2 Globulin 4.4 H Albumin/Globulin Ratio 0.7 L - Medical Decision Making Patient presents with epigastric pain, nausea, and vomiting. She does have rather significant history of GERD and states this feels similar. She was concerned because she thought she may have seen blood in her emesis. The patient has had no further emesis while here, but has felt nauseated. We are unable to establish IV access. We were however able to get lab work. Patient's anemia is stable. Her metabolic panel is unremarkable. The patient was treated with Zofran and GI cocktail that was still feeling nauseated. She was given Phenergan. At this point, I do not suspect a dangerous process. I do feel that she is safe for continued outpatient follow-up with general surgery for her endoscopy. Impression 1. Gastritis with GERD ED Disposition - Plan for ED Patient: Instructions: ED PEPTIC ULCER vs GASTRITIS Prescriptions: Ondansetron [Zofran Odt] 4 mg PO Q8H PRN PRN #10 tablet PRN Reason: Nausea Prescription Printed Referrals: Miguelito Unger MD [Primary Care Provider] -
[2020-09-20] MEDS: Mag Hydrox/Al Hydrox/Simeth 30 ML UDC PO (09:15)
[2020-09-20] MEDS: Ondansetron ODT 4 MG Tablet PO (09:31)
--- NOTE | 2020-09-20 09:39 | ED.RN ---
pt stuck three times for an iv. unable to obtain iv at this time. dr. mcintyre informed. pt reports she would still like lab to draw blood. oral meds ordered per .
[2020-09-20 09:51] LABS: Absolute Lymphocyte Count 2.76 X10^3/uL (0.83-4.51); Basophil# 0.05 X10^3/uL; Basophil% 0.4 % (0-1); Eosinophil# 0.28 X10^3/uL; Eosinophils% 2.2 % (0-5); Hematocrit 38.3 % (37-47); Hemoglobin 11.7 g/dL (12.0-15.0); Lymphocyte # 2.76 X10^3/ul (0.83-4.51); Lymphocyte % 21.5 % (19-41); Mean Corp Hgb Conc 30.5 g/dL (32-36); Mean Corpuscular Hgb 24.4 pg (27.0-32.0); Mean Platelet Vol. 9.5 fl (6.2-12.0); Monocyte# 0.73 X10^3/uL; Monocyte% 5.7 % (0-10); NRBC Flagged by Analyzer 0 % (0-5); Neutrophil # 8.96 X10^3/uL (2.7-7.7); Neutrophil % 69.6 % (47-70); Platelet Count 408 K/mm3 (150-450); RBC Distribution Width SD 43.6 fl (35.1-43.9); Red Blood Count 4.79 M/mm3 (4.2-5.4); White Blood Count 12.9 K/mm3 (4.4-11.0)
[2020-09-20 10:08] LABS: ALB/GLOB Ratio 0.7 RATIO (0.9-2.4); AST(SGOT) 30 U/L (15-37); Alanine Aminotransfer ALT/SGPT 49 U/L (13-56); Albumin, Serum 3.2 g/dL (3.2-5.0); Alkaline Phosphatase 70 U/L (45-117); Anion Gap 5 (5-15); BUN 11 mg/dL (7-18); BUN/Creat Ratio 18.1 RATIO (10-20); Calcium,Total 9.1 mg/dL (8.5-10.1); Chloride 105 mmol/L (98-107); Creatinine, Serum 0.61 mg/dL (0.55-1.02); EST Glomerular Filtration Rate 130 mL/min (>60); Est Glom Filt Rate - Afr Amer 157 mL/min (>60); Estimated Creatinine Clearance 144.69 ml/min; Globulin 4.4 g/dL (2.2-4.2); Glucose 135 mg/dL (74-106); Potassium 3.8 mmol/L (3.5-5.1); Protein, Total 7.6 g/dL (6.4-8.2); Sodium Level 137 mmol/L (136-145)
[2020-09-20] MEDS: proMETHazine 25 MG/ML Syringe 12.5 MG IM (10:28)
[2020-09-20] MEDS: Ketorolac 30 MG/ML Syringe IM (10:48)
[2020-09-20 10:51] VITALS: BP 124/69; PULSE 72; RESP 15; O2SAT 99
== END 2020-09-20 10:53 | disposition home or self-care (01) ==
PROVIDERS: Emergency Provider Emergency Medicine; PCP Family Medicine
DX: K29.70 Gastritis, unspecified, without bleeding (principal); K21.9 Gastro-esophageal reflux disease without esophagitis; E66.9 Obesity, unspecified
CPT/HCPCS: 36415; 80053; 85025; 96372; 99285; J2405

== ENCOUNTER 2020-09-28 08:24 | Emergency (ER) | payer BC, MEDICAID, SELFPAY ==
[2020-09-28 08:25] VITALS: BP 152/93; PULSE 89; RESP 18; TEMP 36.6; O2SAT 97; BMI 64.7
[2020-09-28 09:12] LABS: Absolute Lymphocyte Count 2.53 X10^3/uL (0.83-4.51); Absolute Neutrophil Count 8.3 X10^3/uL (2.0-7.7); Basophil# 0.07 X10^3/uL; Basophil% 0.6 % (0-1); Eosinophil# 0.27 X10^3/uL; Eosinophils% 2.3 % (0-5); Hemoglobin 11.1 g/dL (12.0-15.0); Lymphocyte # 2.53 X10^3/ul (0.83-4.51); Lymphocyte % 21.6 % (19-41); Mean Corp Hgb Conc 29.2 g/dL (32-36); Mean Corpuscular Volume 85.6 fL (81-99); Mean Platelet Vol. 9.8 fl (6.2-12.0); Monocyte# 0.53 X10^3/uL; Monocyte% 4.5 % (0-10); NRBC Flagged by Analyzer 0 % (0-5); Neutrophil # 8.25 X10^3/uL (2.7-7.7); Neutrophil % 70.3 % (47-70); Platelet Count 376 K/mm3 (150-450); RBC Distribution Width CV 15.6 % (11.6-14.6); RBC Distribution Width SD 48.5 fl (35.1-43.9); Red Blood Count 4.44 M/mm3 (4.2-5.4); White Blood Count 11.7 K/mm3 (4.4-11.0)
[2020-09-28] MEDS: 0.9% Normal Saline 1,000 ML 1000 ML IV (09:20)
[2020-09-28] MEDS: Ketorolac 15 MG/ML Vial IV (09:21)
[2020-09-28] MEDS: Ondansetron 4 MG/2 ML Vial IV (09:21)
[2020-09-28 09:26] LABS: ALB/GLOB Ratio 0.7 RATIO (0.9-2.4); AST(SGOT) 36 U/L (15-37); Alanine Aminotransfer ALT/SGPT 46 U/L (13-56); Albumin, Serum 2.9 g/dL (3.2-5.0); Alkaline Phosphatase 63 U/L (45-117); Anion Gap 6 (5-15); BUN 7 mg/dL (7-18); BUN/Creat Ratio 11.8 RATIO (10-20); Calcium,Total 8.8 mg/dL (8.5-10.1); Chloride 107 mmol/L (98-107); Creatinine, Serum 0.59 mg/dL (0.55-1.02); EST Glomerular Filtration Rate 133 mL/min (>60); Est Glom Filt Rate - Afr Amer 161 mL/min (>60); Globulin 4.2 g/dL (2.2-4.2); Glucose 145 mg/dL (74-106); Potassium 4.1 mmol/L (3.5-5.1); Protein, Total 7.1 g/dL (6.4-8.2); Sodium Level 135 mmol/L (136-145)
--- NOTE | 2020-09-28 09:32 | ED.DCSUM_ITS ---
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 She reports she has right-sided abdominal pain that began 2 days ago. It is a sharp pain is 10 of 10 at worst 9-10 currently. Is worsened by movement. Is relieved by ibuprofen. She has had nausea without vomiting. Reports has had a poor appetite. Last bowel movement was today. No melena or hematochezia. No dysuria or frequency. Last menstrual period was September 06. No vaginal bleeding or discharge. Physical Examination: Vitals: Stable. Afebrile. General: Well-nourished and well-developed. Head: Normocephalic atraumatic. Neck: Supple, no lymphadenopathy. No JVD. Nontender. Cardiovascular: Regular rate and rhythm. No murmurs. Respiratory: No respiratory distress. Clear to auscultation bilaterally. Abdominal: Soft, mild tenderness palpation to the very lateral surface of her abdomen on the right. There is no pain at McBurney's point. Nondistended, normal bowel sounds. No guarding, rebound, or peritoneal signs. Back: Mild right CVA tenderness. Extremities: Nontender, no edema. Skin: Normal color, no rash. Neurologic: Alert and oriented ?3. Cranial nerves II through XII are intact. Normal strength and sensation. Psych: Normal affect. Test Results: CBC shows a white count 11.7 with a hemoglobin 11.1. Chem-7 shows sodium 135 and glucose 145. LFTs show an albumin of 2.9. UA shows 10-25 white blood cells, 10-25 epithelial cells, no bacteria. Clinical Impression(s) from Imaging Studies Abdomen/Pelvis CT 09/28/20 10:15 IMPRESSION: 3 mm calculus in the lower pole calyx of the right kidney. No obstructive uropathy is seen. Umbilical hernia containing fat. Electronically Signed: Geovanni Retana MD at 11:10 EDT , Service support , Emergency Department Course and Treatment: Patient had an IV placed. She was given liter normal saline. She was given Toradol and Zofran IV. She is resting more comfortably. Treatment Plan: Patient will be discharged with Zofran. She is instructed use Tylenol and/or ibuprofen for pain. Follow-up with her primary care physician 1 to 2 days if not improving. Return to the emergency department for any worsening symptoms. Disposition: To home in improved and stable condition. Impression: 1. Abdominal pain, uncertain cause. This note was generated with [employer] dictation software. It may contain incorrect words, spelling, and punctuation that were not noted in review of the chart prior to signing ED Disposition - Plan for ED Patient: Disposition: Home or Assisted Living Instructions: ED Abdominal Pain Unkn Cause Fem Prescriptions: Ondansetron [Zofran Odt] 4 mg PO Q8H PRN PRN #10 tablet PRN Reason: Nausea Prescription Printed Referrals: Miguelito Unger MD [Primary Care Provider] - 1-2 Days if not improving
--- NOTE | 2020-09-28 10:15 | CT_ITS ---
STUDY: CT ABDOMEN AND PELVIS WITHOUT CONTRAST REASON FOR EXAM: Female, 25 years old. Right flank pain RADIATION DOSAGE (If Supplied By Facility): CTDIvol = ( 24.18 ) mGy, DLP = ( 1383.36 ) mGycm TECHNIQUE: Transaxial images were obtained from the dome of the diaphragm to the symphysis pubis without oral contrast, and without intravenous contrast. Sagittal and coronal images were reconstructed. Individualized dose optimization techniques were used for this CT. COMPARISON: Comparison is made with prior study dated 08/27/2020. FINDINGS: The visualized lung bases are unremarkable. The visualized portions of the heart are within normal limits. Normal liver. There are surgical clips in the gallbladder fossa consistent with a prior cholecystectomy. Normal spleen. Normal pancreas. Normal bilateral adrenal glands. 3 mm calculus in the lower pole calyx of the right kidney. Punctate calculus in the lower pole calyx of the left kidney. Normal visualized stomach. Normal small intestine. Normal colon. The appendix is visualized and appears normal. Normal abdominal aorta. Normal inferior vena cava. There is borderline retroperitoneal lymphadenopathy with enlarged nodes no greater than 10mm in the short axis diameter. Normal urinary bladder. There is a small umbilical hernia containing fat. The neck of the hernia measures 4.1 cm. Normal osseous structures. CT/Abdomen/Pelvis without Cont IMPRESSION: 3 mm calculus in the lower pole calyx of the right kidney. No obstructive uropathy is seen. Umbilical hernia containing fat. Electronically Signed: Geovanni Retana MD at 11:10 EDT , Service support ,
[2020-09-28 10:19] LABS: Internal QC Validated? YES +Cl - CLEAR BKGD; Pregnancy, Serum, hCG Quali. NEGATIVE Negative
[2020-09-28] MEDS: Morphine 4 MG/ML Syringe IV (10:25)
[2020-09-28 10:32] LABS: Bacteria 0 SEEN /hpf (None Seen); Red Blood Cells-Urine 0 SEEN /hpf (0-5)
[2020-09-28 12:06] VITALS: BP 145/87; PULSE 90; RESP 18; O2SAT 97
[2020-09-28 12:35] LABS: Color, Urine Yellow (Yellow); Glucose, Dipstick Normal (Normal); Ketone-Dipstick 5 mg/dl (Negative); Leukocyte Esterase-Dipstick 100 /ul (Negative); Nitrite-Dipstick Negative (Negative); Occult Blood-Urine Negative /ul (Negative); Protein-Dipstick 15 mg/dl (Negative); Specific Gravity, Urine 1.025 (1.002-1.030); Urine Bilirubin Dipstick Negative (Negative); Urine Clarity Sl. Cloudy (Clear); Urine Urobilinogen Normal (Normal)
[2020-09-28 12:42] LABS: Amorphous Sediment 1+; Mucous, Urine 1+ /hpf (<or=2+); Squamous Epithelial Cells - UA 10-25 SEEN /hpf (5-10); White Blood Cells 10-25 SEEN /hpf (0-5)
[2020-09-28] MEDS: Acetaminophen 500 MG Tablet 1000 MG PO (12:42)
== END 2020-09-28 13:14 | disposition home or self-care (01) ==
PROVIDERS: Emergency Provider Emergency Medicine; PCP Family Medicine
DX: R10.9 Unspecified abdominal pain (principal); E11.9 Type 2 diabetes mellitus without complications; F32.9 Major depressive disorder, single episode, unspecified; Z79.84 Long term (current) use of oral hypoglycemic drugs
CPT/HCPCS: 74176; 80053; 81001; 84703; 85025; 96374; 96375; 99284; J7030; J2405

== ENCOUNTER 2020-10-02 13:38 | Emergency (ER) | payer BC, MEDICAID, SELFPAY ==
[2020-10-02 13:39] VITALS: BP 142/89; PULSE 115; RESP 20; TEMP 36.7; O2SAT 96; BMI 66.1
--- NOTE | 2020-10-02 13:56 | EX.ED.DYSGE1 ---
HPI History of Present Illness Chief Complaint: Other, Pain/Inj Detail of Chief Complaint: Heartburn Informant: patient Onset/Context/Timing Onset: Yesterday Context: Gradual Onset Quality: Burning Location: Esophagus and epigastrium Worsened by: Everything Associated Symptoms Associated Symptoms: Lightheaded Narrative Narrative: Patient presents with heartburn that began yesterday. Patient states he gradually has gotten worse since last night. Patient states it feels like there is a burning in her esophagus. Patient states she tried her Carafate, Prilosec, and Pepto-Bismol at home with no improvement. Patient states she has been feeling lightheaded. Patient admits to some nausea and vomiting. Patient denies any hematemesis or coffee-ground emesis. Patient denies any melena or hematochezia. [facility] Medical History Asthma Diabetes GERD (gastroesophageal reflux disease) Obesity Ovarian cyst PCOS (polycystic ovarian syndrome) Home Medications metformin 1,000 mg PO DAILY 06/25/18 [History Last Taken 05/17/19] ferrous sulfate 1 tab PO DAILY 05/16/19 [History Last Taken 05/17/19] cholecalciferol (vitamin D3) 125 mcg PO DAILY 05/17/19 [History Last Taken 05/17/19] omeprazole 40 mg PO BID 07/18/19 [History Last Taken Unknown] epinephrine 0.3 mg IM X1 PRN #1 syringe 05/14/20 [Rx Last Taken Unknown] cetirizine 10 mg PO DAILY 06/06/20 [History Last Taken Unknown] bupropion HCl 300 mg 24 hr tablet, extended release 300 mg PO QAM 07/14/20 [History Last Taken Unknown] Fenofibrate 48 mg PO DAILY 07/23/20 [History Last Taken Unknown] sitagliptin 100 mg PO DAILY 07/23/20 [History Last Taken Unknown] gabapentin 100 mg PO DAILY 08/19/20 [History Last Taken Unknown] sucralfate 1 gm PO BID 09/20/20 [History Last Taken Unknown] ondansetron 4 mg PO Q8H PRN PRN #10 tablet 09/28/20 [Rx Last Taken Unknown] Allergy/AdvReac Type Severity Reaction Status Date / Time penicillin V potassium Allergy Mild Rash Verified 10/02/20 13:41 [From Pen-Vee K] brompheniramine maleate Allergy Shortness Verified 10/02/20 13:41 [From Dimetapp of breath (brompheniramine-PPA)] celery Allergy Swelling Verified 10/02/20 13:41 phenylpropanolamine HCl Allergy Shortness Verified 10/02/20 13:41 [From Dimetapp of breath (brompheniramine-PPA)] amoxicillin trihydrate AdvReac Intermediate Diarrhea Verified 10/02/20 13:41 [From Augmentin] potassium clavulanate AdvReac Intermediate Diarrhea Verified 10/02/20 13:41 [From Augmentin] dicyclomine HCl [From Bentyl] AdvReac Nausea/Vom/ Verified 10/02/20 13:41 Diarrhea plastic tape Allergy Rash Uncoded 10/02/20 13:41 FRUCTOSE AdvReac Nausea/Vom/ Uncoded 10/02/20 13:41 Diarrhea Family History Father Diabetes Mother Hypertension Grandmother Breast cancer 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 H/O endoscopy H/O oophorectomy H/O ovarian cystectomy H/O wisdom tooth extraction History of tonsillectomy and adenoidectomy Hx of cholecystectomy Social History Smoking Status: Never smoker alcohol intake: current alcohol intake frequency: a few times a month substance use type: does not use seatbelt use: always do you feel safe at home: Yes ROS ROS ED Constitutional Constitutional ED: Denies chills or fever(s) Eyes Eyes: Denies blurry vision or change in vision ENT ENT ED: Denies rhinorrhea or sore throat Cardiovascular Cardiovascular: Denies chest pain or palpitations Respiratory/Chest Respiratory/Chest: Denies cough or dyspnea Gastrointestinal Gastrointestinal: Reports abdominal pain, nausea and vomiting Genitourinary Genitourinary ED: Denies dysuria or hematuria Musculoskeletal Musculoskeletal: Denies back pain or neck pain Integumentary Denies abscess or rash Neurologic Neurologic: Denies headache(s) or weakness Allergic/Immunologic Allergic/Immunologic ED: Denies mouth swelling or urticaria EXAM Physical Exam Const Vital Signs: 10/02/20 13:39 10/02/20 14:00 Temperature 98.1 F Temperature Source Oral Pulse Rate 115 H Respiratory Rate 20 H Respiratory Effort Normal Non-Labored Respiratory Pattern Normal Blood Pressure 142/89 H Blood Pressure Mean 106 Pulse Ox 96 Oxygen Delivery Method Room Air Positive well nourished, well developed and obese General Appearance ED: well developed Nutritional Appearance: obese HEENT Reports moist mucous membranes Neck supple and no JVD Resp normal respiratory effort and clear to auscultation bilaterally Cardio regular rate and regular rhythm GI Auscultation: normoactive bowel sounds Palpation: soft and tender epigastric; Negative for guarding or rebound tenderness present Extremity General Extremety ED: Negative for edema or tenderness General Extremity: Negative for edema Neuro oriented x3 and no sensory deficits noted Sensorium / Orientation: alert Motor Exam: strength 5/5 throughout MDM MDM MDM Narrative Medical decision making narrative: EMS EKG was obtained and on my interpretation, it showed sinus tachycardia with a rate of 113. There are no acute ST or T wave changes noted. CBC does show a mild leukocytosis of 16.9. Comprehensive metabolic profile was essentially within normal limits. Patient was given Reglan and a GI cocktail. Patient is feeling better on reevaluation. Patient was instructed to follow-up with her primary care physician in 5 to 7 days. Patient was instructed to follow-up with her endoscopy as scheduled. Patient understood and was agreeable with the plan. All questions were answered. Lab Data Attestation: I reviewed the patient's lab results. Labs: Laboratory Results - last 24 hr 10/02/20 10/02/20 14:00 14:00 WBC 16.9 H RBC 5.03 Hgb 12.3 Hct 39.8 MCV 79.1 L D MCH 24.5 L MCHC 30.9 L D RDW Std Deviation 45.0 H RDW Coeff of Silvia 15.9 H Plt Count 455 H MPV 9.4 Immature Gran % (Auto) 0.500 Neut % (Auto) 71.3 H Lymph % (Auto) 20.5 [place] % (Auto) 5.1 Eos % (Auto) 2.1 Baso % (Auto) 0.5 Absolute Neuts (auto) 12.0 H Absolute Lymphs (auto) 3.46 Nucleated RBC % 0 Sodium 136 Potassium 3.8 Chloride 103 Carbon Dioxide 25.0 Anion Gap 8 BUN 11 Creatinine 0.62 Estim Creat Clear Calc 142.36 Est GFR (MDRD) Af Amer 155 Est GFR (MDRD) Non-Af 128 BUN/Creatinine Ratio 17.9 Glucose 141 H Calcium 9.3 Total Bilirubin 0.30 AST 27 ALT 44 Alkaline Phosphatase 67 Total Protein 8.0 Albumin 3.4 Globulin 4.6 H Albumin/Globulin Ratio 0.7 L Lipase 92 Discharge Plan Triage Chief Complaint: Other, Pain/Inj ED Provider: Gio Ceron Dx/Rx/DC Orders Clinical Impression: Gastroesophageal reflux disease Instructions: ED GERD (Adult) Prescriptions: No Action bupropion HCl [Wellbutrin XL] 300 mg tablet extended release 24 hr 300 mg PO QAM RF: 0 metformin 1,000 MG tablet 1,000 mg PO DAILY RF: 0 ferrous sulfate 325 MG tablet 1 tab PO DAILY RF: 0 cholecalciferol (vitamin D3) 125 MCG capsule 125 mcg PO DAILY RF: 0 omeprazole 20 MG capsule 40 mg PO BID RF: 0 epinephrine 0.3 MG syringe 0.3 mg IM X1 PRN (Reason: Anaphylaxis) Qty: 1 RF: 0 cetirizine 10 MG capsule 10 mg PO DAILY RF: 0 sitagliptin 100 MG tablet 100 mg PO DAILY RF: 0 Fenofibrate 48 mg PO DAILY RF: 0 gabapentin 100 MG capsule 100 mg PO DAILY RF: 0 sucralfate 1 GM tablet 1 gm PO BID RF: 0 ondansetron 4 MG tablet 4 mg PO Q8H PRN PRN (Reason: Nausea) Qty: 10 RF: 0 Primary Care Provider: Miguelito Unger Referrals: Miguelito Unger MD [Primary Care Provider] - 3-5 Days Disposition Patient Disposition: Home, self care
[2020-10-02] MEDS: Mag Hydrox/Al Hydrox/Simeth 30 ML UDC PO (14:03)
[2020-10-02] MEDS: Metoclopramide 10 MG/2 ML Vial IV (14:07)
[2020-10-02 14:10] LABS: Absolute Lymphocyte Count 3.46 X10^3/uL (0.83-4.51); Basophil# 0.08 X10^3/uL; Basophil% 0.5 % (0-1); Eosinophil# 0.36 X10^3/uL; Eosinophils% 2.1 % (0-5); Hematocrit 39.8 % (37-47); Hemoglobin 12.3 g/dL (12.0-15.0); Lymphocyte # 3.46 X10^3/ul (0.83-4.51); Lymphocyte % 20.5 % (19-41); Mean Corp Hgb Conc 30.9 g/dL (32-36); Mean Corpuscular Hgb 24.5 pg (27.0-32.0); Mean Corpuscular Volume 79.1 fL (81-99); Mean Platelet Vol. 9.4 fl (6.2-12.0); Monocyte# 0.86 X10^3/uL; Monocyte% 5.1 % (0-10); NRBC Flagged by Analyzer 0 % (0-5); Neutrophil # 12.01 X10^3/uL (2.7-7.7); Neutrophil % 71.3 % (47-70); Platelet Count 455 K/mm3 (150-450); RBC Distribution Width CV 15.9 % (11.6-14.6); Red Blood Count 5.03 M/mm3 (4.2-5.4); White Blood Count 16.9 K/mm3 (4.4-11.0)
[2020-10-02 14:26] LABS: ALB/GLOB Ratio 0.7 RATIO (0.9-2.4); AST(SGOT) 27 U/L (15-37); Alanine Aminotransfer ALT/SGPT 44 U/L (13-56); Albumin, Serum 3.4 g/dL (3.2-5.0); Alkaline Phosphatase 67 U/L (45-117); Anion Gap 8 (5-15); BUN 11 mg/dL (7-18); BUN/Creat Ratio 17.9 RATIO (10-20); Calcium,Total 9.3 mg/dL (8.5-10.1); Chloride 103 mmol/L (98-107); Creatinine, Serum 0.62 mg/dL (0.55-1.02); EST Glomerular Filtration Rate 128 mL/min (>60); Est Glom Filt Rate - Afr Amer 155 mL/min (>60); Estimated Creatinine Clearance 142.36 ml/min; Globulin 4.6 g/dL (2.2-4.2); Glucose 141 mg/dL (74-106); Lipase 92 U/L (73-393); Potassium 3.8 mmol/L (3.5-5.1); Sodium Level 136 mmol/L (136-145)
[2020-10-02 14:58] VITALS: BP 136/81; PULSE 118; RESP 15; O2SAT 96
== END 2020-10-02 14:58 | disposition home or self-care (01) ==
PROVIDERS: Emergency Provider Emergency Medicine; PCP Family Medicine
DX: K21.9 Gastro-esophageal reflux disease without esophagitis (principal); E11.9 Type 2 diabetes mellitus without complications; E66.9 Obesity, unspecified; Z79.84 Long term (current) use of oral hypoglycemic drugs
CPT/HCPCS: 80053; 83690; 85025; 96374; 99285; A4216

== ENCOUNTER → 2020-10-04 18:09 | Emergency (ER) | payer BC, MEDICAID, SELFPAY ==
[2020-10-02 13:39] VITALS: BMI 66.1
[2020-10-04 18:10] VITALS: BP 161/97; PULSE 115; RESP 14; TEMP 36.6; O2SAT 99; BMI 65.7
--- NOTE | 2020-10-04 19:01 | EX.ED.DYSGE1 ---
HPI History of Present Illness Chief Complaint: Nausea/Vomiting Informant: patient Onset/Context/Timing Onset: Today Context: Gradual Onset Timing: Continuous Current Severity: Moderate Maximum Severity: Moderate Narrative Narrative: Patient presents the emergency department nausea and vomiting. Patient does have rather significant history of GERD. She is scheduled for outpatient endoscopy October 15. From time to time, she will get flares where she gets sharp stabbing pain in her midepigastric area with vomiting. She denies any fevers or chills. She denies any change in symptoms. The patient has been seen multiple times for similar complaints. She is not had chest pain or shortness of breath. [facility] Medical History (Updated 10/04/20 @ 19:20 by Maddy Lui) Asthma Cancer Diabetes GERD (gastroesophageal reflux disease) Obesity Ovarian cyst PCOS (polycystic ovarian syndrome) Home Medications metformin 1,000 mg PO DAILY 06/25/18 [History Last Taken 05/17/19] ferrous sulfate 1 tab PO DAILY 05/16/19 [History Last Taken 05/17/19] cholecalciferol (vitamin D3) 125 mcg PO DAILY 05/17/19 [History Last Taken 05/17/19] omeprazole 40 mg PO BID 07/18/19 [History Last Taken Unknown] epinephrine 0.3 mg IM X1 PRN #1 syringe 05/14/20 [Rx Last Taken Unknown] cetirizine 10 mg PO DAILY 06/06/20 [History Last Taken Unknown] bupropion HCl 300 mg 24 hr tablet, extended release 300 mg PO QAM 07/14/20 [History Last Taken Unknown] Fenofibrate 48 mg PO DAILY 07/23/20 [History Last Taken Unknown] sitagliptin 100 mg PO DAILY 07/23/20 [History Last Taken Unknown] gabapentin 100 mg PO DAILY 08/19/20 [History Last Taken Unknown] sucralfate 1 gm PO BID 09/20/20 [History Last Taken Unknown] ondansetron 4 mg PO Q8H PRN PRN #10 tablet 09/28/20 [Rx Last Taken Unknown] lidocaine HCl [Lidocaine Viscous] 15 ml MUCOUS MEMBRANE Q8H PRN #100 ml 10/04/20 [Rx Last Taken Unknown] metoclopramide HCl [Reglan] 10 mg PO Q6H PRN #20 tab 10/04/20 [Rx Last Taken Unknown] Allergy/AdvReac Type Severity Reaction Status Date / Time penicillin V potassium Allergy Mild Rash Verified 10/04/20 18:12 [From Pen-Vee K] brompheniramine maleate Allergy Shortness Verified 10/04/20 18:12 [From Dimetapp of breath (brompheniramine-PPA)] celery Allergy Swelling Verified 10/04/20 18:12 phenylpropanolamine HCl Allergy Shortness Verified 10/04/20 18:12 [From Dimetapp of breath (brompheniramine-PPA)] amoxicillin trihydrate AdvReac Intermediate Diarrhea Verified 10/04/20 18:12 [From Augmentin] potassium clavulanate AdvReac Intermediate Diarrhea Verified 10/04/20 18:12 [From Augmentin] dicyclomine HCl [From Bentyl] AdvReac Nausea/Vom/ Verified 10/04/20 18:12 Diarrhea plastic tape Allergy Rash Uncoded 10/04/20 18:12 FRUCTOSE AdvReac Nausea/Vom/ Uncoded 10/04/20 18:12 Diarrhea Family History Father Diabetes Mother Hypertension Grandmother Breast cancer 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 H/O endoscopy H/O oophorectomy H/O ovarian cystectomy H/O wisdom tooth extraction History of tonsillectomy and adenoidectomy Hx of cholecystectomy Social History Smoking Status: Never smoker alcohol intake: current alcohol intake frequency: a few times a month substance use type: does not use seatbelt use: always do you feel safe at home: Yes ROS ROS ED Constitutional Constitutional ED: Denies chills or fever(s) Eyes Eyes: Denies blurry vision or change in vision ENT ENT ED: Denies ear pain or sore throat Cardiovascular Cardiovascular: Denies chest pain or palpitations Respiratory/Chest Respiratory/Chest: Denies cough, dyspnea or dyspnea on exertion Gastrointestinal Gastrointestinal: Reports abdominal pain, nausea and vomiting Genitourinary Genitourinary ED: Denies dysuria or urinary frequency Musculoskeletal Musculoskeletal: Denies arthralgias or myalgias Integumentary Denies rash Neurologic Neurologic: Denies headache(s) or paresthesias Psychiatric Psychiatric: Denies anxiety or depression Endocrine Endocrinology: Denies polydipsia or polyuria Allergic/Immunologic Allergic/Immunologic ED: Denies urticaria EXAM Physical Exam Const Vital Signs: 10/04/20 18:10 Temperature 97.9 F Temperature Source Temporal Pulse Rate 115 H Respiratory Rate 14 Blood Pressure 161/97 H Blood Pressure Mean 118 Pulse Ox 99 Oxygen Delivery Method Room Air Positive well nourished and well developed General Appearance ED: well developed HEENT Reports normocephalic, head/scalp atraumatic and moist mucous membranes Eyes PERRL and EOMs intact bilaterally Neck no lymphadenopathy and supple General: Negative for tenderness Chest Wall inspection of chest normal Resp normal respiratory effort and clear to auscultation bilaterally Cardio regular rate, regular rhythm and no murmurs GI normal to inspection, nondistended, normoactive bowel sounds Palpation: Negative for tender, guarding or rebound tenderness present Back/Spine no CVA tenderness Cervical Spine: Negative for cervical spine tenderness Thoracic Spine / Upper Back: Negative for thoracic spinal tenderness Extremity normal to inspection General Extremety ED: Negative for tenderness Neuro oriented x3 and CN's II-XII intact bilaterally Neuro Narrative: No focal deficits appreciated. Sensorium / Orientation: alert Psych mental status grossly normal Skin no rashes or lesions noted, no wounds and skin turgor normal MDM MDM MDM Narrative Medical decision making narrative: Patient presents with heartburn, nausea, and vomiting. She has had these similar complaints multiple times. She has been consistent with her medications. IV was established. Patient was given fluids and Reglan. She was also given a GI cocktail. Labs do show mild leukocytosis do feel is likely reactive. Liver functions were normal. On reevaluation, the patient is totally pain-free. I am going to prescribe her Reglan and viscous lidocaine. She will follow-up for her upper endoscopy. Lab Data Attestation: I reviewed the patient's lab results. Labs: Laboratory Results - last 24 hr 10/04/20 10/04/20 19:10 19:10 WBC 17.1 H RBC 4.67 Hgb 11.5 L Hct 37.2 MCV 79.7 L MCH 24.6 L MCHC 30.9 L RDW Std Deviation 45.9 H RDW Coeff of Silvia 15.9 H Plt Count 439 MPV 10.0 Immature Gran % (Auto) 0.600 Neut % (Auto) 73.7 H Lymph % (Auto) 18.3 L [place] % (Auto) 5.0 Eos % (Auto) 2.0 Baso % (Auto) 0.4 Absolute Neuts (auto) 12.6 H Absolute Lymphs (auto) 3.13 Nucleated RBC % 0 Sodium 136 Potassium 3.9 Chloride 104 Carbon Dioxide 25.0 Anion Gap 7 BUN 10 Creatinine 0.69 Estim Creat Clear Calc 127.92 Est GFR (MDRD) Af Amer 135 Est GFR (MDRD) Non-Af 112 BUN/Creatinine Ratio 14.5 Glucose 133 H Calcium 9.1 Total Bilirubin 0.20 AST 47 H ALT 53 Alkaline Phosphatase 68 Total Protein 7.8 Albumin 3.3 Globulin 4.5 H Albumin/Globulin Ratio 0.7 L Discharge Plan Triage Chief Complaint: Nausea/Vomiting ED Provider: David Llamas Dx/Rx/DC Orders Instructions: ED PEPTIC ULCER vs GASTRITIS Prescriptions: New metoclopramide HCl [Reglan] 10 mg tablet 10 mg PO Q6H PRN (Reason: nausea and vomiting) Qty: 20 RF: 0 Lidocaine Viscous 2 % solution 15 ml mucous membrane Q8H PRN (Reason: pain) Qty: 100 RF: 0 No Action bupropion HCl [Wellbutrin XL] 300 mg tablet extended release 24 hr 300 mg PO QAM RF: 0 metformin 1,000 MG tablet 1,000 mg PO DAILY RF: 0 ferrous sulfate 325 MG tablet 1 tab PO DAILY RF: 0 cholecalciferol (vitamin D3) 125 MCG capsule 125 mcg PO DAILY RF: 0 omeprazole 20 MG capsule 40 mg PO BID RF: 0 epinephrine 0.3 MG syringe 0.3 mg IM X1 PRN (Reason: Anaphylaxis) Qty: 1 RF: 0 cetirizine 10 MG capsule 10 mg PO DAILY RF: 0 sitagliptin 100 MG tablet 100 mg PO DAILY RF: 0 Fenofibrate 48 mg PO DAILY RF: 0 gabapentin 100 MG capsule 100 mg PO DAILY RF: 0 sucralfate 1 GM tablet 1 gm PO BID RF: 0 ondansetron 4 MG tablet 4 mg PO Q8H PRN PRN (Reason: Nausea) Qty: 10 RF: 0 Primary Care Provider: Miguelito Unger Referrals: Miguelito Unger MD [Primary Care Provider] -
[2020-10-04] MEDS: Mag Hydrox/Al Hydrox/Simeth 30 ML UDC PO (19:15)
[2020-10-04] MEDS: Metoclopramide 10 MG/2 ML Vial IV (19:16)
[2020-10-04] MEDS: 0.9% Normal Saline 1,000 ML 1000 ML IV (19:17)
[2020-10-04 19:19] LABS: Absolute Lymphocyte Count 3.13 X10^3/uL (0.83-4.51); Absolute Neutrophil Count 12.6 X10^3/uL (2.0-7.7); Basophil# 0.06 X10^3/uL; Basophil% 0.4 % (0-1); Eosinophil# 0.34 X10^3/uL; Hematocrit 37.2 % (37-47); Hemoglobin 11.5 g/dL (12.0-15.0); Lymphocyte # 3.13 X10^3/ul (0.83-4.51); Lymphocyte % 18.3 % (19-41); Mean Corp Hgb Conc 30.9 g/dL (32-36); Mean Corpuscular Hgb 24.6 pg (27.0-32.0); Mean Corpuscular Volume 79.7 fL (81-99); Monocyte# 0.86 X10^3/uL; NRBC Flagged by Analyzer 0 % (0-5); Neutrophil # 12.62 X10^3/uL (2.7-7.7); Neutrophil % 73.7 % (47-70); Platelet Count 439 K/mm3 (150-450); RBC Distribution Width CV 15.9 % (11.6-14.6); RBC Distribution Width SD 45.9 fl (35.1-43.9); Red Blood Count 4.67 M/mm3 (4.2-5.4); White Blood Count 17.1 K/mm3 (4.4-11.0)
[2020-10-04 19:36] LABS: ALB/GLOB Ratio 0.7 RATIO (0.9-2.4); AST(SGOT) 47 U/L (15-37); Alanine Aminotransfer ALT/SGPT 53 U/L (13-56); Albumin, Serum 3.3 g/dL (3.2-5.0); Alkaline Phosphatase 68 U/L (45-117); Anion Gap 7 (5-15); BUN 10 mg/dL (7-18); BUN/Creat Ratio 14.5 RATIO (10-20); Calcium,Total 9.1 mg/dL (8.5-10.1); Chloride 104 mmol/L (98-107); Creatinine, Serum 0.69 mg/dL (0.55-1.02); EST Glomerular Filtration Rate 112 mL/min (>60); Est Glom Filt Rate - Afr Amer 135 mL/min (>60); Estimated Creatinine Clearance 127.92 ml/min; Globulin 4.5 g/dL (2.2-4.2); Glucose 133 mg/dL (74-106); Potassium 3.9 mmol/L (3.5-5.1); Protein, Total 7.8 g/dL (6.4-8.2); Sodium Level 136 mmol/L (136-145)
== END | disposition home or self-care (01) ==
PROVIDERS: Emergency Provider Emergency Medicine; PCP Family Medicine
DX: K27.9 Peptic ulcer, site unspecified, unspecified as acute or chronic, without hemorrhage or perforation (principal); K29.70 Gastritis, unspecified, without bleeding; E66.9 Obesity, unspecified
CPT/HCPCS: 80053; 85025; 96374; 99283; J7030; A4216

== ENCOUNTER 2020-10-08 23:44 | Emergency (ER) | payer BC, MEDICAID, SELFPAY ==
[2020-10-04 18:10] VITALS: BMI 65.7
--- NOTE | 2020-10-08 23:48 | EX.ED.GENINJ ---
HPI History of Present Illness Chief Complaint: Fall Informant: patient Onset/Context/Timing Onset: Today Mechanism/Context: Fall Location of pain/injuries: Left hip Current Severity: Moderate Maximum Severity: Moderate Narrative Narrative: Patient is a 25-year-old female presents to the emergency department after a fall. Patient states she was getting up from bed, lost her balance, and fell forward. She landed on her stomach and on her left hip. She did not strike her head. She denies loss of consciousness. With help, she was able to get up and ambulate. She states she is otherwise been in her normal state of health. [facility] Medical History Asthma Cancer Diabetes GERD (gastroesophageal reflux disease) Obesity Ovarian cyst PCOS (polycystic ovarian syndrome) Home Medications metformin 1,000 mg PO DAILY 06/25/18 [History Last Taken 05/17/19] ferrous sulfate 1 tab PO DAILY 05/16/19 [History Last Taken 05/17/19] cholecalciferol (vitamin D3) 125 mcg PO DAILY 05/17/19 [History Last Taken 05/17/19] omeprazole 40 mg PO BID 07/18/19 [History Last Taken Unknown] epinephrine 0.3 mg IM X1 PRN #1 syringe 05/14/20 [Rx Last Taken Unknown] cetirizine 10 mg PO DAILY 06/06/20 [History Last Taken Unknown] bupropion HCl 300 mg 24 hr tablet, extended release 300 mg PO QAM 07/14/20 [History Last Taken Unknown] Fenofibrate 48 mg PO DAILY 07/23/20 [History Last Taken Unknown] sitagliptin 100 mg PO DAILY 07/23/20 [History Last Taken Unknown] gabapentin 100 mg PO DAILY 08/19/20 [History Last Taken Unknown] sucralfate 1 gm PO BID 09/20/20 [History Last Taken Unknown] ondansetron 4 mg PO Q8H PRN PRN #10 tablet 09/28/20 [Rx Last Taken Unknown] lidocaine HCl [Lidocaine Viscous] 15 ml MUCOUS MEMBRANE Q8H PRN #100 ml 10/04/20 [Rx Last Taken Unknown] metoclopramide HCl [Reglan] 10 mg PO Q6H PRN #20 tab 10/04/20 [Rx Last Taken Unknown] hydrocodone-acetaminophen 1 tab PO Q4H PRN PRN 2 Days #10 tablet 10/09/20 [Rx Last Taken Unknown] Allergy/AdvReac Type Severity Reaction Status Date / Time penicillin V potassium Allergy Mild Rash Verified 10/08/20 23:46 [From Pen-Vee K] brompheniramine maleate Allergy Shortness Verified 10/08/20 23:46 [From Dimetapp of breath (brompheniramine-PPA)] celery Allergy Swelling Verified 10/08/20 23:46 phenylpropanolamine HCl Allergy Shortness Verified 10/08/20 23:46 [From Dimetapp of breath (brompheniramine-PPA)] amoxicillin trihydrate AdvReac Intermediate Diarrhea Verified 10/08/20 23:46 [From Augmentin] potassium clavulanate AdvReac Intermediate Diarrhea Verified 10/08/20 23:46 [From Augmentin] dicyclomine HCl [From Bentyl] AdvReac Nausea/Vom/ Verified 10/08/20 23:46 Diarrhea plastic tape Allergy Rash Uncoded 10/08/20 23:46 FRUCTOSE AdvReac Nausea/Vom/ Uncoded 10/08/20 23:46 Diarrhea Family History Father Diabetes Mother Hypertension Grandmother Breast cancer 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 H/O endoscopy H/O oophorectomy H/O ovarian cystectomy H/O wisdom tooth extraction History of tonsillectomy and adenoidectomy Hx of cholecystectomy Social History Smoking Status: Never smoker alcohol intake: current alcohol intake frequency: a few times a month substance use type: does not use seatbelt use: always do you feel safe at home: Yes ROS ROS ED Constitutional Constitutional ED: Denies chills or fever(s) Eyes Eyes: Denies blurry vision or change in vision ENT ENT ED: Denies ear pain or sore throat Cardiovascular Cardiovascular: Denies chest pain or palpitations Respiratory/Chest Respiratory/Chest: Denies cough, dyspnea or dyspnea on exertion Gastrointestinal Gastrointestinal: Reports nausea; Denies abdominal pain or vomiting Genitourinary Genitourinary ED: Denies dysuria or urinary frequency Musculoskeletal Musculoskeletal: Reports arthralgias; Denies myalgias Integumentary Denies rash Neurologic Neurologic: Denies headache(s) or paresthesias Psychiatric Psychiatric: Denies anxiety or depression Endocrine Endocrinology: Denies polydipsia or polyuria Allergic/Immunologic Allergic/Immunologic ED: Denies urticaria EXAM Physical Exam Const Vital Signs: 10/08/20 23:49 10/08/20 23:51 10/09/20 02:08 Temperature 97.8 F Temperature Source Temporal Pulse Rate 91 89 Respiratory Rate 16 20 H Respiratory Effort Normal Respiratory Depth Normal Respiratory Pattern Normal Blood Pressure 146/78 H 139/86 H Blood Pressure Mean 100 Pulse Ox 95 96 Oxygen Delivery Method Room Air Room Air Positive well nourished and well developed General Appearance ED: well developed HEENT Reports normocephalic, head/scalp atraumatic and moist mucous membranes Eyes PERRL and EOMs intact bilaterally Neck no lymphadenopathy and supple General: Negative for tenderness Chest Wall inspection of chest normal Resp normal respiratory effort and clear to auscultation bilaterally Cardio regular rate, regular rhythm and no murmurs GI normal to inspection, nondistended, normoactive bowel sounds Palpation: Negative for tender, guarding or rebound tenderness present Back/Spine no CVA tenderness, normal to inspection and no thoracic nor lumbar tenderness Cervical Spine: Negative for cervical spine tenderness Thoracic Spine / Upper Back: Negative for thoracic spinal tenderness Lumbar Spine / Lower Back: straight leg raise negative bilaterally Extremity normal to inspection Extremity Narrative: Tenderness of the left hip with motion General Extremety ED: Yes tenderness Neuro oriented x3 and CN's II-XII intact bilaterally Neuro Narrative: No focal deficits appreciated. Sensorium / Orientation: alert Psych mental status grossly normal Skin no rashes or lesions noted, no wounds and skin turgor normal MDM MDM MDM Narrative Medical decision making narrative: Patient presents after a fall. She has pain in her hip and in her chest wall. She had no loss of consciousness or head injury. She was treated with analgesics with some improvement. Plain films were obtained of both the hip and the chest. These were reviewed by both myself and the radiologist. There is no evidence of fracture, infiltrates, dislocation, or other dangerous process. Patient was given a dose of Toradol. She will be given a short course of analgesics and will be discharged home. Impression 1. Left hip contusion 2. Chest wall contusion Radiography Diagnostic Testing: Radiology Impression Hip/Pelvis X-Ray 10/09/20 00:18 IMPRESSION: Normal x-ray examination of the pelvis and hip. Electronically Signed: Karley Schilling MD at 0:33 EDT , Service support , Chest X-Ray 10/09/20 01:09 IMPRESSION: Normal x-ray examination of the chest, stable study in the interval. Electronically Signed: Karley Schilling MD at 1:27 EDT , Service support , Discharge Plan Triage Chief Complaint: Fall ED Provider: David Llamas Dx/Rx/DC Orders Instructions: ED Mechanical Fall Prescriptions: New hydrocodone-acetaminophen [hydrocodone-acetaminophen] 1 TABLET tablet 1 tab PO Q4H PRN PRN (Reason: Pain) 2 Days Qty: 10 RF: 0 No Action bupropion HCl [Wellbutrin XL] 300 mg tablet extended release 24 hr 300 mg PO QAM RF: 0 metformin 1,000 MG tablet 1,000 mg PO DAILY RF: 0 ferrous sulfate 325 MG tablet 1 tab PO DAILY RF: 0 cholecalciferol (vitamin D3) 125 MCG capsule 125 mcg PO DAILY RF: 0 omeprazole 20 MG capsule 40 mg PO BID RF: 0 epinephrine 0.3 MG syringe 0.3 mg IM X1 PRN (Reason: Anaphylaxis) Qty: 1 RF: 0 cetirizine 10 MG capsule 10 mg PO DAILY RF: 0 sitagliptin 100 MG tablet 100 mg PO DAILY RF: 0 Fenofibrate 48 mg PO DAILY RF: 0 gabapentin 100 MG capsule 100 mg PO DAILY RF: 0 sucralfate 1 GM tablet 1 gm PO BID RF: 0 ondansetron 4 MG tablet 4 mg PO Q8H PRN PRN (Reason: Nausea) Qty: 10 RF: 0 metoclopramide HCl [Reglan] 10 mg tablet 10 mg PO Q6H PRN (Reason: nausea and vomiting) Qty: 20 RF: 0 Lidocaine Viscous 2 % solution 15 ml mucous membrane Q8H PRN (Reason: pain) Qty: 100 RF: 0 Primary Care Provider: Miguelito Unger Referrals: Miguelito Unger MD [Primary Care Provider] - Disposition Disposition: Home, self care Discharge Date/Time: 10/09/20 02:09
[2020-10-08 23:51] VITALS: BP 146/78; PULSE 91; RESP 16; TEMP 36.6; O2SAT 95; BMI 65.7
[2020-10-08] MEDS: HYDROcodone Bitartrate/Apap 5/325 Tablet PO (23:58)
--- NOTE | 2020-10-09 00:18 | RAD_ITS ---
STUDY: X-RAY - PELVIS AND LEFT HIP REASON FOR EXAM: Female, 25 years old. fall TECHNIQUE: 3 views of the pelvis and hip. COMPARISON: None. FINDINGS: There is a non-specific bowel gas pattern. Normal visualized soft tissue structures. Normal bilateral iliac wings, sacroiliac joints and visualized sacrum. Normal bilateral superior and inferior pubic rami. Normal pubic symphysis. Normal bilateral ischial tuberosities. Normal visualized femoral head. Normal acetabulum. Normal hip joint. RAD/HIP, UNI W/ Pelvis 2-3 Views IMPRESSION: Normal x-ray examination of the pelvis and hip. Electronically Signed: Karley Schilling MD at 0:33 EDT , Service support ,
--- NOTE | 2020-10-09 01:09 | RAD_ITS ---
STUDY: X-RAY CHEST REASON FOR EXAM: Female, 25 years old. injury TECHNIQUE: Single AP portable view of the chest. COMPARISON: 05/09/2020. FINDINGS: The lungs are clear and expanded. There is no demonstrated pleural abnormality. Normal size heart. Normal mediastinum and ana cristina. Normal visualized pulmonary arteries. Normal visualized aortic arch and descending thoracic aorta. Normal visualized thoracic spine. Normal visualized ribs, clavicles, and shoulders. There is no demonstrated abnormality of the visualized soft tissue structures of the upper abdomen. RAD/Chest 1 View (Portable) IMPRESSION: Normal x-ray examination of the chest, stable study in the interval. Electronically Signed: Karley Schilling MD at 1:27 EDT , Service support ,
[2020-10-09] MEDS: Ketorolac 60 MG/2 ML Vial IM (01:31)
[2020-10-09 02:08] VITALS: BP 139/86; PULSE 89; RESP 20; O2SAT 96
== END 2020-10-09 02:09 | disposition home or self-care (01) ==
LOC: ED 23:58
PROVIDERS: Emergency Provider Emergency Medicine; PCP Family Medicine
DX: S70.02XA Contusion of left hip, initial encounter (principal); S20.219A Contusion of unspecified front wall of thorax, initial encounter; E66.9 Obesity, unspecified; E11.9 Type 2 diabetes mellitus without complications; K21.9 Gastro-esophageal reflux disease without esophagitis; W06.XXXA Fall from bed, initial encounter; Z79.84 Long term (current) use of oral hypoglycemic drugs
CPT/HCPCS: 71045; 73502; 96372; 99284

== ENCOUNTER 2020-10-22 09:17 | Outpatient (RCR) | payer BC, MEDICAID, SELFPAY ==
--- NOTE | 2020-10-31 12:53 | HP.FCE ---
Floor (Occasional 1-33% of Day): NA Floor (Frequent 34-66% of Day): NA Floor (Constant 67-100% of Day): NA Floor PDL: No Ability Knee (Occasional 1-33% of Day): 10# Knee (Frequent 34-66% of Day): 5# Knee (Constant 67-100% of Day): NA Knee PDL: Sedentary Waist (Occasional 1-33% of Day): 10# Waist (Frequent 34-66% of Day): 5# Waist (Constant 67-100% of Day): NA Waist PDL: Sedentary Shoulder (Occasional 1-33% of Day): NA Shoulder (Frequent 34-66% of Day): NA Shoulder (Constant 67-100% of Day): NA Shoulder PDL: No Ability Overhead (Occasional 1-33% of Day): NA Overhead (Frequent 34-66% of Day): NA Overhead (Constant 67-100% of Day): NA Overhead PDL: No Ability Bending: Occasional Ability (1-33% of day) Comments: low occasional ability Squatting: Occasional Ability (1-33% of day) Comments: low occasional ability Kneeling: No Ablility (0% of day) Reaching out: Occasional Ability (1-33% of day) Comments: while sitting Reaching up: Occasional Ability (1-33% of day) Comments: while sitting Sitting: Frequent Ability (34-66% of day) Walking: Occasional Ability (1-33% of day) Standing: Occasional Ability (1-33% of day) Duration Sedentary Sedentary Light Light Light Medium Medium Medium Heavy Very Heavy Heavy Occasional (0-33% of day) Frequent (34-66% of day) Constant (67-100% of day) 10 # Negligible Negligible 15 # 8 # Negligible 20 # 10# Negli. 35 # 18 # 7 # 50 # 25 # 10 # 75 # 100 # >100 # 38 # 50 # >50 # 15 # 20 # >20 # Weight:: 195.045 kg Hand Dominance: right Medical History Including Restrictions: This 25 year old female was seen for FCE- pt states she was in good health until 2014 she began having sharp pain in her back and her legs would not hold her up and she would fall- pt states she went to Dr. Whitman and she went through physical therapy without success. Pt states she was then refereed to pain mtg. where she had back injections - pt states injections last one in August increased her symptoms. pt states she continues with numbness, muscle weakness she call parallelized that last a few minutes. pt states she is undergoing physical therapy in the pool (3-or 4 sessions ) and states she hasn't notice much of a change. pt states she had MRI (2015)and dx other interverterbral disc degeneration lumbarsacral region- pt states end or middle of 2019 she had another MRI done at [facility]. Pt states she is DM. pt states she was dx with anxiety and depression states this is controlled with medication. pt states she did have counseling at one point but did not find a counselor she likes so she didn't go. 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 Diagnoses: DM dx in . Depression dx in 2010 or 2009 controlled with medication. anxiety dx age 10 or 11 controlled with medication. Overian cancer dx 2019 Symptoms: back pain. leg weakness. burning sensation. pins/needles sensation in feet and left thigh. right buttock Pain: pt states current pain 4/10 but currently after sitting for 25 min pain increases 6/10. pt sitting her heart rate 92-103. pt does use heat to decrease her pain - oxy and Tylenol. pt does take gabapentin and meloxicam Work History: PT states she worked at [employer] pt state she only worked about 4 weeks. pt states she was hired in [employer] and quit working due increase in her back symptoms. 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 pt states prior to the above employment pt worked for [employer] for 2 years. pt states she underwent sx and her employer did not have a position when she was ready to return to work. Behavioral: Pt was pleasant and cooperative throughout assessment. ADLS: Pt states she lives in an apartment with her mom, dad and brother 1st floor set-up no steps. pt states her family does work outside the home- pt states she has a walk in shower- pts states depending on pain- she will sit on a chair so she doesn't risk falling. pt states she does use a walker to assist her from getting up from her bed. pt states she can dress ind. and Jaelyn for bathing. pt states if she is in pain she does not do house work- pt states she can assist with meals at a modified level with sitting to do meal prep or cooking. pt does not drive- pt states parents do the grocery shopping. pt states there home does have a basement and was able to get down but unable to get up from basement without her brothers and mom's help Physical Examination: pt demo with increase adipose tissue that limits hip flex ROM: pt demo limited lumbar flex/ext. limited hip flexion. all other ROM is WFL Strength: left hip flexion 3/5. all other ROM 4/5. pt demo with fair strength to perform daily tasks. Right Technical Testing Engineer Strength Average: 78.33 Right Technical Testing Engineer Strength Percentile: 74% Left Technical Testing Engineer Strength Average: 60.00 Left Technical Testing Engineer Strength Percentile: 42% Right Lateral Pinch Average: 18.66 Right Lateral Pinch Percentile: >90% Left Lateral Pinch Average: 18.00 Left Lateral Pinch Percentile: >90% Right Tripod Pinch Average: 19.33 Right Tripod Pinch Percentile: 90% Left Tripod Pinch Average: 18.66 Left Tripod Pinch Percentile: 90% Sensation: denies in fingers/hands. states tingling in feet and left thigh Fine Motor: Denies Balance: no loss of balance noted during assessment Bending: pt demo bending forward 3/3 with external support and limited motion - pt states back pain 6/10. declined 10x and 10x rapidly. pt can bend forward on a low occasional ability Squatting: pt demo the ability to squat three x with limited motion and use of external support- pt unable to squat 10x or 10x rapidly. pt reported sharp pain in her back. pt can squat on a low occasional ability. Kneeling: unable Reaching out/up: pt demo the ability to reach up 3x, 7/10 times while standing. pt states she feels this pulling in her back- pt sat and was able to complete 10/10 while sitting, and reaching up 10/10 rapidly pt can reach out on an occasional ability while sitting. pt demo the ability to reach out 3x while standing, reach out 10/10 while sitting, and 10/10 rapidly. pt can reach up on an occasional ability while sitting. hear rate ranged from 99-104 Walking: pt demo a slow antalgic gait pattern for total 932 feet this was broken up in 3 different times- pt's heart rate was 139 following ambulation. pt can ambulate on a occasional ability Standing: pt demo standing for 4 min with shifting body weight and holding on table top. pt can stand on a occasional ability Sitting: pt demo the ability to sit for 25 min with apparent discomfort pt can sit on a frequent ability Climbing Stairs: pt demo with 2 steps with use of rails and increase in time. heart rate after 138 Floor Lift: unable Knee Lift: pt demonstrated the ability to lift 10# maximally from this level. Waist Lift: pt demonstrated the ability to lift 10# maximally from this level. Shoulder Lift: unable due to increase in back pain 8/10 Overhead Lift: unable due to increase in back pain 8/10 Carrying: pt states she does not carry objects as she states she doesn't feel safe. light bag only like bread. pt demonstrated the ability to carry 5# for 12 feet. Comments: after ambulation heart rate 139
--- NOTE | 2020-10-31 12:54 | HP.OTFCE.D ---
FCE D/C Summary - Discharge SCAR CHERRY was seen for a one time visit for an FCE on 10/22/20 and is discharged.
== END 2020-10-22 19:00 | disposition home or self-care (01) ==
LOC: OT 09:17
PROVIDERS: PCP Family Medicine; Referring Provider Anesthesiology Pain Medicine; Visit Provider Anesthesiology Pain Medicine
DX: M51.37 Other intervertebral disc degeneration, lumbosacral region (principal)
CPT/HCPCS: 97750

== ENCOUNTER 2020-11-13 16:00 | Outpatient (RCR) | payer BC, MEDICAID, SELFPAY ==
--- NOTE | 2020-10-04 09:03 | HP.PTEVAL_ITS ---
Patient's Visit Information SCAR CHERRY is a 25 year old F referred to Physical Therapy by RENEA Dey with a diagnosis of Degeneration of lumbosacral disc with radiculopathy and facet arthritis.. Date of Evaluation: 10/03/20 Physical Therapist: Igor Miranda DPT - Visit Plan Frequency: 2-3x /Week Duration: 4 Weeks Plan: Pt. will need physical therapy to decrease pain that she is having in her lumbar spine and left lower extremity. Pt. needs to strengthen her lower extremity as well as her core, so she can return to work and her daily activities. 1) In aquatic setting progress core and hip strength. 2) Add in lumbar ROM as tolerated. 3) Progress flexion stretching and or deep water hang to reduce symptoms. - Subjective Pt. is a 25 yo female that reports constant low back and leg pain since April 2020. The pain has been intermittent prior to April and has been ongoing for a few years. She reports that she has stopped working and prefers sitting positions and the child's pose position. Pt. does not prefer to lie on her back or to walk for long periods of time due to pain. She does report having symptoms of numbness and tingling down her posterior left leg, stemming from her lumbar spine. Pt. reports she has had therapy before for low back pain and had symptoms of decreased sensation in both lower extremities, but denies having those symptoms today. - Pain Lumbar spine Pain Intensity (Out of 10): Unrated Pain Intensity Range: Unrated Comment: Pt. did not rate pain today, but it does get severe at times. Left leg Pain Intensity (Out of 10): Unrated Pain Intensity Range: Unrated Comment: Pt. reports having numbness and tingling down the entire left leg. - Objective Posture: pt. has FH posture, roduned shoulders, overall slouched posture. MMT: hip extension R 3+/5, L 3/5, hip abduction B 3+/5, Hip flexion B 3+/5, knee extension B 4/5, knee flexion R 4/5, L 3+/5, dorsiflexion/inversion B 4/5, great toe extension B 5/5, eversion B 4/5. ROM: limited lumbar extension, full lumbar flexion and side-bending. not tested with a tape measure. Sensation: R intact in whole lower extremity, L dulled in whole lower extremity. Special Tests: +Quadrant test, + SLR test, - TAYLOR test - Special Tests L/S Left Straight Leg Raise: Positive L/S Right Straight Leg Raise: Negative - Goals Goal 1:: LTG: Pt. independent and compliant with HEP. Goal Time Frame: 2-4 Weeks Goal 2:: LTG: Pt. will report pain less than 2/10 in lumbar/sacral region when walking around in the community. Goal Time Frame: 6-8 Weeks Goal 3:: LTG: Pt. will increase overall hip strength to a 4/5, so she can return to doing her daily activities. Goal Time Frame: 4-6 Weeks Goal 4:: STG: pt. to sleep throughout the night with 0-2/10 pain. Goal Time Frame: 2 Weeks Goal 5:: LTG: pt. have increased lumbar ROM by 50% in all directions without increase in pain. - Rehabilitation Potential Physical Therapy Diagnosis: Pt. has signs and symptoms consistent with low back pain with radiculopathy within the left lower extremity. Pt. presents with pain to palpation in the lumbosacral region, general muscle weakness, decreased sensation in the L lower extremity, lumbar spine hypomobility, as well as overall deconditioning. Pt. will benefit from physical therapy to treat the i mpairments listed above. Rehabilitation Potential: Fair - Anticipated Interventions Patient/Client Instruction: Educate patient on: Condition, Plan of Care, Risk Factors, Benefits of Fitness Program For the Purpose of:: To improve health and function, To foster healthy habits, To improve decision making, To prevent re-injury Therapeutic Exercise to Include: Strength training, Power training, Body mechanics, Postural training, Flexibilty training, In an aquatic setting, Active ROM, Dynamic Lumbar Stabilization, Sundeep Exercises For the Purpose of:: To decrease pain, To increase ROM, To improve nutrient delivery to tissue, To increase oxygenation perfusion, To improve health of tissue, To decrease soft tissue restriction, To increase flexibility/ROM Thank you for the opportunity to evaluate your patient. For Medicare and Medicare HMO plans, please review the plan of care and approve it. It will need to be FAXED BACK to us at [phone] for Medicare purposes. For Medicare only, by signing this I certify the plan of care. Please let me know if there are questions or concerns regarding this plan of care. Physician Signature: Date:
--- NOTE | 2020-10-29 08:22 | HP.PTREVAL_ITS ---
Aviva Porter, TARA-C, It has been my pleasure to treat SCAR CHERRY over the last 7 visits for Degeneration of lumbosacral disc with radiculopathy and facet arthritis.. Please see the progress note below for an update on the physical therapy plan of care! Subjective: Pt. is here today for her follow up with the PT. Pt. has had 6 session in the pool with reports of mild improvement. SHe reports no pain while she is in the pool, but has increased pain the moment she gets out. Pt. reports that her pain gets to about the same intensity. Pt. does report having some improvement, due to increase LE strength, getting up from chair and overall increased lumbar mobility. Pt. does have pain that goes down her LLE to her foot at times and is having some R sided pain as well. Objective/Function: Pt. does report some mild Numbness at L lateral proximal thigh. MMT: RLE: hip- flexion 3/5, abd 3/5, ext 3/5; knee ext 4/5, flexion 4/5 increase NW; ankle 4+/5 throughout; great toe ext- 5/5. LLE: hip- flexion 3/5, abd 3/5, ext 3/5; knee ext 4/5, flexion 4/5; ankle 4+/5 throughout, great toe ext 5/5. Core strength- poor. Pt. reports not sleeping well, both difficulty falling asleep and difficulty with staying asleep. Lumbar ROM: flexon 35deg, ext 10deg, SB R 10deg, SB L 12degdeg. Pt. is tight in B HS, hip flexors,. Pt. has difficulty with walking. She does not need a device, but has very limited arm swing indicative of muscle gaurding. She stands and walks in an anterior plevic tilt with sway back like posture. Pt. has a very decreased tempo with walking. with reports of increased pain. I am concerned about her N/T going down her L leg and is now reporting R LE pain as well. She is awaiting approval for an injection in her lower spine from pain management. She did have some relief in the pool, but again when she got out her pain would resume. I would like her to continue to work in the pool with focus on core stability/control, adding in some light lumbar extension as tolerated. She is mildly stuck into flexion and can not flex pas 35deg of flexion resulting in slid on foot wear due to inability to get to her feet. Plan Plan: I am requesting another 6 visits in the pool with focus on slowly increasing BLE and core strength along with lumbar extension. Add in deep water hang, but have her in the 3-4 foot water post hang to allow for easier transition. Due to her limited mobility and high levels of pain for such a long period at a young age I am concerned about penitentiary injury and moving towards a disability like situation. Goals Goal 1:: LTG: Pt. independent and compliant with HEP. Goal Time Frame: 2-4 Weeks Goal Progress: Progressing Goal 2:: LTG: Pt. will report pain less than 2/10 in lumbar/sacral region when walking around in the community. Goal Time Frame: 6-8 Weeks Goal Progress: Progressing Goal 3:: LTG: Pt. will increase overall hip strength to a 4/5, so she can return to doing her daily activities. Goal Time Frame: 4-6 Weeks Goal Progress: Progressing Goal 4:: STG: pt. to sleep throughout the night with 0-2/10 pain. Goal Time Frame: 2 Weeks Goal Progress: Not Progressing Goal 5:: LTG: pt. have increased lumbar ROM by 50% in all directions without increase in pain. Goal Progress: Not Progressing Anticipated Interventions Patient/Client Instruction: Educate patient on: Condition, Plan of Care, Risk Factors, Benefits of Fitness Program For the Purpose of:: To improve health and function, To foster healthy habits, To improve decision making, To prevent re-injury Therapeutic Exercise to Include: Strength training, Power training, Body mechanics, Postural training, Flexibilty training, In an aquatic setting, Active ROM, Dynamic Lumbar Stabilization, Sundeep Exercises For the Purpose of:: To decrease pain, To increase ROM, To improve nutrient delivery to tissue, To increase oxygenation perfusion, To improve health of tissue, To decrease soft tissue restriction, To increase flexibility/ROM Please do not hesitate to contact me at [phone] by phone or if you have questions or concerns regarding this new plan of care! Sincerely, Igor Miranda DPT
== END 2020-11-13 19:00 | disposition home or self-care (01) ==
LOC: PT 16:00
PROVIDERS: PCP Family Medicine; Referring Provider Nurse Practitioner Family; Visit Provider Nurse Practitioner Family
DX: M51.37 Other intervertebral disc degeneration, lumbosacral region (principal); M47.817 Spondylosis without myelopathy or radiculopathy, lumbosacral region; M54.17 Radiculopathy, lumbosacral region; M51.26 Other intervertebral disc displacement, lumbar region; M12.9 Arthropathy, unspecified; M54.16 Radiculopathy, lumbar region
CPT/HCPCS: 97113; 97161; 97164

== ENCOUNTER 2020-11-13 17:49 | Emergency (ER) | payer BC, MEDICAID, SELFPAY ==
[2020-11-13 17:50] VITALS: BP 157/92; PULSE 114; RESP 16; TEMP 36.1; O2SAT 94; BMI 65.3
--- NOTE | 2020-11-13 18:39 | EX.ED.GENINJ ---
HPI History of Present Illness Chief Complaint: Head Injury Informant: patient Narrative Narrative: 25-year-old female states that on Thursday of last week during the night she struck her head on a windowsill while sleeping. She states that she is a very violent sleeper. She states that she found herself awake with her head in the windowsill crying. She struck the occiput on the windowsill. Since that time she has had headache and nausea. She has been taking Phenergan which has prevented her from vomiting. She went to urgent care who recommended that she come here. Patient notes that she has had many CTs in her lifetime and is concerned about cumulative radiation. [facility] Medical History Asthma Cancer Diabetes GERD (gastroesophageal reflux disease) Obesity Ovarian cyst PCOS (polycystic ovarian syndrome) Home Medications metformin 1,000 mg PO DAILY 06/25/18 [History Last Taken 05/17/19] ferrous sulfate 1 tab PO DAILY 05/16/19 [History Last Taken 05/17/19] cholecalciferol (vitamin D3) 125 mcg PO DAILY 05/17/19 [History Last Taken 05/17/19] omeprazole 40 mg PO BID 07/18/19 [History Last Taken Unknown] epinephrine 0.3 mg IM X1 PRN #1 syringe 05/14/20 [Rx Last Taken Unknown] cetirizine 10 mg PO DAILY 06/06/20 [History Last Taken Unknown] bupropion HCl 300 mg 24 hr tablet, extended release 300 mg PO QAM 07/14/20 [History Last Taken Unknown] Fenofibrate 48 mg PO DAILY 07/23/20 [History Last Taken Unknown] sitagliptin 100 mg PO DAILY 07/23/20 [History Last Taken Unknown] gabapentin 100 mg PO DAILY 08/19/20 [History Last Taken Unknown] sucralfate 1 gm PO BID 09/20/20 [History Last Taken Unknown] ondansetron 4 mg PO Q8H PRN PRN #10 tablet 09/28/20 [Rx Last Taken Unknown] lidocaine HCl [Lidocaine Viscous] 15 ml MUCOUS MEMBRANE Q8H PRN #100 ml 10/04/20 [Rx Last Taken Unknown] metoclopramide HCl [Reglan] 10 mg PO Q6H PRN #20 tab 10/04/20 [Rx Last Taken Unknown] hydrocodone-acetaminophen 1 tab PO Q4H PRN PRN 2 Days #10 tablet 10/09/20 [Rx Last Taken Unknown] Allergy/AdvReac Type Severity Reaction Status Date / Time penicillin V potassium Allergy Mild Rash Verified 11/13/20 17:52 [From Pen-Vee K] brompheniramine maleate Allergy Shortness Verified 11/13/20 17:52 [From Dimetapp of breath (brompheniramine-PPA)] celery Allergy Swelling Verified 11/13/20 17:52 phenylpropanolamine HCl Allergy Shortness Verified 11/13/20 17:52 [From Dimetapp of breath (brompheniramine-PPA)] amoxicillin trihydrate AdvReac Intermediate Diarrhea Verified 11/13/20 17:52 [From Augmentin] potassium clavulanate AdvReac Intermediate Diarrhea Verified 11/13/20 17:52 [From Augmentin] dicyclomine HCl [From Bentyl] AdvReac Nausea/Vom/ Verified 11/13/20 17:52 Diarrhea plastic tape Allergy Rash Uncoded 11/13/20 17:52 FRUCTOSE AdvReac Nausea/Vom/ Uncoded 11/13/20 17:52 Diarrhea Family History Father Diabetes Mother Hypertension Grandmother Breast cancer 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 H/O endoscopy H/O oophorectomy H/O ovarian cystectomy H/O wisdom tooth extraction History of tonsillectomy and adenoidectomy Hx of cholecystectomy Social History Smoking Status: Never smoker alcohol intake: current alcohol intake frequency: a few times a month substance use type: does not use seatbelt use: always do you feel safe at home: Yes ROS ROS ED Constitutional Constitutional ED: Denies chills or weight loss Eyes Eyes: Denies change in vision or diplopia ENT ENT ED: Denies ear pain, rhinorrhea or sore throat Cardiovascular Cardiovascular: Denies chest pain, orthopnea, palpitations or racing heartbeat Respiratory/Chest Respiratory/Chest: Denies cough, dyspnea or orthopnea Gastrointestinal Gastrointestinal: Reports nausea; Denies abdominal pain, diarrhea or vomiting Genitourinary Genitourinary ED: Denies dysuria, hematuria or urinary frequency Musculoskeletal Musculoskeletal: Denies arthralgias, back pain, myalgias or neck pain Integumentary Denies abscess or rash Neurologic Neurologic: Reports headache(s); Denies weakness Psychiatric Psychiatric: Denies anxiety, depression, suicidal ideation or suicidal thoughts Endocrine Endocrinology: Denies polydipsia, polyphagia or polyuria Allergic/Immunologic Allergic/Immunologic ED: Denies mouth swelling, tongue swelling or urticaria EXAM Physical Exam Const Vital Signs: 11/13/20 17:50 11/13/20 18:00 Temperature 97 F L Temperature Source Temporal Pulse Rate 114 H Respiratory Rate 16 Respiratory Effort Normal Non-Labored Respiratory Depth Normal Respiratory Pattern Normal Blood Pressure 157/92 H Blood Pressure Mean 113 Pulse Ox 94 Oxygen Delivery Method Room Air Room Air Positive well nourished and well developed General Appearance ED: well developed HEENT Reports normocephalic, head/scalp atraumatic, TM's clear and moist mucous membranes atraumatic Tympanic Membrane ED: Yes TM's clear Eyes PERRL and EOMs intact bilaterally Neck no lymphadenopathy, supple and no JVD Resp normal respiratory effort and clear to auscultation bilaterally Cardio regular rate, regular rhythm and no murmurs GI normal to inspection, nondistended, normoactive bowel sounds and non-tender Palpation: soft Back/Spine no CVA tenderness and normal ROM Extremity normal to inspection General Extremety ED: Negative for edema General Extremity: Negative for edema Neuro oriented x3 and CN's II-XII intact bilaterally Neuro Narrative: GCS 15 Sensorium / Orientation: alert Motor Exam: strength 5/5 throughout Psych mental status grossly normal Mood & Affect: Negative for depressed or tearful Skin no rashes or lesions noted and no wounds MDM MDM MDM Narrative Medical decision making narrative: Patient presents on post trauma day 4. GCS is 15. There is no outward signs of head trauma. Clinically I believe she has a concussion. I think she can be observed and we can avoid additional radiation. Discharge Plan Triage Chief Complaint: Head Injury ED Provider: Branden Kay Dx/Rx/DC Orders Clinical Impression: Concussion Instructions: ED Concussion Prescriptions: No Action bupropion HCl [Wellbutrin XL] 300 mg tablet extended release 24 hr 300 mg PO QAM RF: 0 metformin 1,000 MG tablet 1,000 mg PO DAILY RF: 0 ferrous sulfate 325 MG tablet 1 tab PO DAILY RF: 0 cholecalciferol (vitamin D3) 125 MCG capsule 125 mcg PO DAILY RF: 0 omeprazole 20 MG capsule 40 mg PO BID RF: 0 epinephrine 0.3 MG syringe 0.3 mg IM X1 PRN (Reason: Anaphylaxis) Qty: 1 RF: 0 cetirizine 10 MG capsule 10 mg PO DAILY RF: 0 sitagliptin 100 MG tablet 100 mg PO DAILY RF: 0 Fenofibrate 48 mg PO DAILY RF: 0 gabapentin 100 MG capsule 100 mg PO DAILY RF: 0 sucralfate 1 GM tablet 1 gm PO BID RF: 0 ondansetron 4 MG tablet 4 mg PO Q8H PRN PRN (Reason: Nausea) Qty: 10 RF: 0 metoclopramide HCl [Reglan] 10 mg tablet 10 mg PO Q6H PRN (Reason: nausea and vomiting) Qty: 20 RF: 0 Lidocaine Viscous 2 % solution 15 ml mucous membrane Q8H PRN (Reason: pain) Qty: 100 RF: 0 hydrocodone-acetaminophen [hydrocodone-acetaminophen] 1 TABLET tablet 1 tab PO Q4H PRN PRN (Reason: Pain) 2 Days Qty: 10 RF: 0 Primary Care Provider: Miguelito Unger Referrals: Miguelito Unger MD [Primary Care Provider] - 1-2 Weeks Disposition Disposition: Home, self care
== END 2020-11-13 18:59 | disposition home or self-care (01) ==
LOC: ED 18:50
PROVIDERS: Emergency Provider Emergency Medicine; PCP Family Medicine
DX: S06.0X9A Concussion with loss of consciousness of unspecified duration, initial encounter (principal); E66.9 Obesity, unspecified; W22.09XA Striking against other stationary object, initial encounter
CPT/HCPCS: 99283

== ENCOUNTER 2020-11-21 23:53 | Emergency (ER) | payer BC, MEDICAID, SELFPAY ==
[2020-11-21 23:54] VITALS: BP 158/83; PULSE 109; RESP 24; TEMP 37.3; O2SAT 98; BMI 66.6
--- NOTE | 2020-11-21 23:57 | ED.RN ---
PRINTED OLD EKG
--- NOTE | 2020-11-22 00:07 | EKG12_ITS ---
Test Reason : CP Blood Pressure : / mmHG Vent. Rate : 108 BPM Atrial Rate : 108 BPM P-R Int : 158 ms QRS Dur : 094 ms QT Int : 358 ms P-R-T Axes : 051 041 033 degrees QTc Int : 479 ms Sinus tachycardia Otherwise normal ECG Confirmed by BESSY MARCH, WESTON ([id number]), movie editor KRISTIE CARRERO ([id number]) on 11/23/2020 10:47:32 A M Referred By: AFSHIN Confirmed By:DAVID DOHERTY MD
--- NOTE | 2020-11-22 00:07 | RAD_ITS ---
HISTORY: chest pain EXAM: XR Chest 1 View: COMPARISON: October 09, 2020 FINDINGS: # of images incl. paperwork: 1 Lungs are clear. Heart is not enlarged. No acute osseous pathology perceived. Pulmonary vascularity is distinct. No effusions. RAD/Chest 1 View (Portable) IMPRESSION: Normal. at 0033 Reported and signed by: Ajay Dumont MD Electronically Signed: Ajay Dumont MD at 0:32 EDT Tel , Service support ,
--- NOTE | 2020-11-22 00:08 | ED.VIS.CHEST ---
HPI History of Present Illness Chief Complaint: Chest Pain Informant: patient Narrative Narrative: Patient is a 25-year-old female with extensive medical history including polycystic ovarian syndrome, ovarian tumor status post resection, type 2 diabetes mellitus, chronic back pain and [place]'s syndrome presenting with chest pain and palpitations. She states she was laying in bed around 1045 and suddenly she felt that her heart was racing and she had chest pain. She describes pain as sharp and just to the left of midline and radiating around her left breast. She has some associated shortness of breath. She had a mild cough lately but attributes that just to mucus production/phlegm in the back of her throat. She also she feels lightheaded and dizzy. She states she felt fine earlier today. She notes she generally feels weak is having hard time ambulating because of her symptoms. She denies associated vomiting but is having some nausea. She denies any abdominal pain. She denies any symptoms. Denies any family history of heart disease at a young age. She denies any history of DVT or PE. She denies any swelling of her extremities. Patient states she called the on-call nurse who had her check her vital signs at home. States her heart rate was 162. She was instructed to call 911. She states that per EMS her heart rate was in the 120s. Patient states when she was given a physical for her back she was found to have an elevated heart rate at that time and was referred to cardiology. She is not followed up yet. [facility] Medical History Asthma Cancer Diabetes GERD (gastroesophageal reflux disease) Obesity Ovarian cyst PCOS (polycystic ovarian syndrome) Home Medications metformin 1,000 mg PO DAILY 06/25/18 [History Last Taken 05/17/19] ferrous sulfate 1 tab PO DAILY 05/16/19 [History Last Taken 05/17/19] cholecalciferol (vitamin D3) 125 mcg PO DAILY 05/17/19 [History Last Taken 05/17/19] epinephrine 0.3 mg IM X1 PRN #1 syringe 05/14/20 [Rx Last Taken Unknown] bupropion HCl 300 mg 24 hr tablet, extended release 300 mg PO QAM 07/14/20 [History Last Taken Unknown] Fenofibrate 48 mg PO DAILY 07/23/20 [History Last Taken Unknown] sitagliptin 100 mg PO DAILY 07/23/20 [History Last Taken Unknown] gabapentin 100 mg PO DAILY 08/19/20 [History Last Taken Unknown] sucralfate 1 gm PO BID 09/20/20 [History Last Taken Unknown] ondansetron 4 mg PO Q8H PRN PRN #10 tablet 09/28/20 [Rx Last Taken Unknown] lidocaine HCl [Lidocaine Viscous] 15 ml MUCOUS MEMBRANE Q8H PRN #100 ml 10/04/20 [Rx Last Taken Unknown] metoclopramide HCl [Reglan] 10 mg PO Q6H PRN #20 tab 10/04/20 [Rx Last Taken Unknown] hydrocodone-acetaminophen 1 tab PO Q4H PRN PRN 2 Days #10 tablet 10/09/20 [Rx Last Taken Unknown] ondansetron 4 mg PO Q8H PRN PRN #10 tab 11/13/20 [Rx Last Taken Unknown] fexofenadine [Lorrie] 180 mg PO DAILY 11/21/20 [History Last Taken Unknown] pantoprazole 20 mg PO DAILY 11/21/20 [History Last Taken Unknown] Allergy/AdvReac Type Severity Reaction Status Date / Time penicillin V potassium Allergy Mild Rash Verified 11/21/20 23:59 [From Pen-Vee K] brompheniramine maleate Allergy Shortness Verified 11/21/20 23:59 [From Dimetapp of breath (brompheniramine-PPA)] celery Allergy Swelling Verified 11/21/20 23:59 phenylpropanolamine HCl Allergy Shortness Verified 11/21/20 23:59 [From Dimetapp of breath (brompheniramine-PPA)] amoxicillin trihydrate AdvReac Intermediate Diarrhea Verified 11/21/20 23:59 [From Augmentin] potassium clavulanate AdvReac Intermediate Diarrhea Verified 11/21/20 23:59 [From Augmentin] dicyclomine HCl [From Bentyl] AdvReac Nausea/Vom/ Verified 11/21/20 23:59 Diarrhea plastic tape Allergy Rash Uncoded 11/21/20 23:59 FRUCTOSE AdvReac Nausea/Vom/ Uncoded 11/21/20 23:59 Diarrhea Family History Father Diabetes Mother Hypertension Grandmother Breast cancer 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 H/O endoscopy H/O oophorectomy H/O ovarian cystectomy H/O wisdom tooth extraction History of tonsillectomy and adenoidectomy Hx of cholecystectomy Social History Smoking Status: Never smoker alcohol intake: current alcohol intake frequency: a few times a month substance use type: does not use seatbelt use: always do you feel safe at home: Yes ROS ROS ED Constitutional Constitutional ED: Denies chills or fever(s) Eyes Eyes: Denies change in vision ENT ENT ED: Denies ear pain, rhinorrhea or sore throat Cardiovascular Cardiovascular: Reports chest pain and palpitations Respiratory/Chest Respiratory/Chest: Reports cough and dyspnea; Denies dyspnea on exertion or sputum Gastrointestinal Gastrointestinal: Reports nausea; Denies abdominal pain, diarrhea or vomiting Genitourinary Genitourinary ED: Denies dysuria or hematuria Musculoskeletal Musculoskeletal: Denies arthralgias or myalgias Integumentary Denies rash Neurologic Neurologic: Denies headache(s) Psychiatric Psychiatric: Denies depression EXAM Physical Exam Const Vital Signs: 11/21/20 23:54 11/21/20 23:56 11/22/20 00:15 Temperature 99.1 F Temperature Source Oral Pulse Rate 109 H Respiratory Rate 24 H Respiratory Effort Normal Blood Pressure 158/83 H Blood Pressure Mean 108 Pulse Ox 98 100 Oxygen Delivery Method Room Air Room Air 11/22/20 02:39 Temperature Temperature Source Pulse Rate 92 Respiratory Rate 11 L Respiratory Effort Blood Pressure Blood Pressure Mean Pulse Ox 96 Oxygen Delivery Method Room Air Positive well nourished, well developed and obese General Appearance ED: well developed Nutritional Appearance: obese HEENT normocephalic and atraumatic Eyes PERRL and EOMs intact bilaterally Neck supple and no JVD Chest Wall inspection of chest normal and palpation of chest normal Chest: Negative for tenderness Resp normal respiratory effort and clear to auscultation bilaterally Effort and Inspection: Negative for respiratory distress Cardio regular rate, regular rhythm and no murmurs GI normal to inspection, nondistended, normoactive bowel sounds Back/Spine no CVA tenderness Extremity normal to inspection General Extremety ED: Negative for edema General Extremity: Negative for edema Neuro oriented x3 and CN's II-XII intact bilaterally Sensorium / Orientation: awake and alert Psych mental status grossly normal Skin no rashes or lesions noted Heart Score History: Slightly/Non-Suspicious ECG: Normal Age: </= 45 years Risk Factors: 1 or 2 Risk Factors Troponin: </= Normal Limit Score: 1 MDM MDM MDM Narrative Medical decision making narrative: Patient is evaluated for chest discomfort and sensation of heart racing. She appears nontoxic in no acute distress. She is mildly tachycardic in the emergency room. Patient is at multiple visits for similar complaints in the past. She does not have any cardiac history but does have pretty extensive medical history given her age. EKG shows sinus tachycardia with no ischemic changes. Her work-up is remarkable for mild leukocytosis 16.7. Her review shows that she normally does have a leukocytosis with this is close to her baseline. Her D-dimer is normal at 0.35. Patient is otherwise low risk for PE and I feel like a negative D-dimer effectively rules out PE for her. I do not think CT is indicated. Her BMP is normal. Troponin is negative x2. She has normal TSH. Chest x-ray does not show any acute process. Patient is low risk for major cardiac event. While in the ER she started to complain of some nausea and heartburn. She is given Zofran and then a GI cocktail. She will be discharged home to follow-up with her PCP and her lens coating technician. She states she has appointment to see cardiology in about 2 weeks. Patient is counseled on signs and symptoms requiring return to the emergency room. Patient verbalizes agreement and understand this plan. Patient discharged home in stable and improved condition. Lab Data Labs: Laboratory Results - last 24 hr 11/22/20 11/22/20 11/22/20 00:10 00:10 00:10 WBC 16.7 H RBC 4.50 Hgb 11.1 L Hct 36.1 L MCV 80.2 L MCH 24.7 L MCHC 30.7 L RDW Std Deviation 44.2 H RDW Coeff of Silvia 15.5 H Plt Count 421 MPV 9.3 Immature Gran % (Auto) 0.900 Neut % (Auto) 70.5 H Lymph % (Auto) 20.9 Frontier % (Auto) 5.1 Eos % (Auto) 2.2 Baso % (Auto) 0.4 Absolute Neuts (auto) 11.8 H Absolute Lymphs (auto) 3.50 Nucleated RBC % 0 D-Dimer Quant (PE/DVT) 0.35 Sodium 138 Potassium 3.9 Chloride 105 Carbon Dioxide 25.0 Anion Gap 8 BUN 10 Creatinine 0.79 Estim Creat Clear Calc 111.72 Est GFR (MDRD) Af Amer 115 Est GFR (MDRD) Non-Af 95 BUN/Creatinine Ratio 12.6 Glucose 210 H Calcium 9.5 Troponin I < 0.015 TSH 2.41 11/22/20 03:15 WBC RBC Hgb Hct MCV MCH MCHC RDW Std Deviation RDW Coeff of Silvia Plt Count MPV Immature Gran % (Auto) Neut % (Auto) Lymph % (Auto) Frontier % (Auto) Eos % (Auto) Baso % (Auto) Absolute Neuts (auto) Absolute Lymphs (auto) Nucleated RBC % D-Dimer Quant (PE/DVT) Sodium Potassium Chloride Carbon Dioxide Anion Gap BUN Creatinine Estim Creat Clear Calc Est GFR (MDRD) Af Amer Est GFR (MDRD) Non-Af BUN/Creatinine Ratio Glucose Calcium Troponin I < 0.015 TSH Radiography Chest X-Ray - ED: 1 View, Read by ED Physician, Read by Radiologist and No Acute Disease Diagnostic Testing: Radiology Impression Chest X-Ray 11/22/20 00:07 IMPRESSION: Normal. at 0033 Reported and signed by: Ajay Dumont MD Electronically Signed: Ajay Dumont MD at 0:32 EDT Tel , Service support , Rhythm Strip Rhythm Strip: Sinus Tach Rate: 108 Ectopy: None EKG Initial EKG: Attestation: I personally reviewed and interpreted this EKG as follows: Interpretation: Sinus Tachycardia Comments: Sinus tachycardia rate of 108 Normal axis Normal intervals Normal ST segments No change compared to prior EKG on 06/25/2018 Discharge Plan Triage Chief Complaint: Chest Pain ED Provider: Hedy Nichols Dx/Rx/DC Orders Clinical Impression: Chest pain of uncertain etiology Instructions: ED Chest Pain, Uncertain Cause Prescriptions: No Action bupropion HCl [Wellbutrin XL] 300 mg tablet extended release 24 hr 300 mg PO QAM RF: 0 metformin 1,000 MG tablet 1,000 mg PO DAILY RF: 0 ferrous sulfate 325 MG tablet 1 tab PO DAILY RF: 0 cholecalciferol (vitamin D3) 125 MCG capsule 125 mcg PO DAILY RF: 0 epinephrine 0.3 MG syringe 0.3 mg IM X1 PRN (Reason: Anaphylaxis) Qty: 1 RF: 0 sitagliptin 100 MG tablet 100 mg PO DAILY RF: 0 Fenofibrate 48 mg PO DAILY RF: 0 gabapentin 100 MG capsule 100 mg PO DAILY RF: 0 sucralfate 1 GM tablet 1 gm PO BID RF: 0 ondansetron 4 MG tablet 4 mg PO Q8H PRN PRN (Reason: Nausea) Qty: 10 RF: 0 metoclopramide HCl [Reglan] 10 mg tablet 10 mg PO Q6H PRN (Reason: nausea and vomiting) Qty: 20 RF: 0 lidocaine HCl [Lidocaine Viscous] 2 % solution 15 ml mucous membrane Q8H PRN (Reason: pain) Qty: 100 RF: 0 hydrocodone-acetaminophen [hydrocodone-acetaminophen] 1 TABLET tablet 1 tab PO Q4H PRN PRN (Reason: Pain) 2 Days Qty: 10 RF: 0 ondansetron [ondansetron] 4 MG tablet 4 mg PO Q8H PRN PRN (Reason: Nausea) Qty: 10 RF: 0 fexofenadine [Lorrie] 180 mg Tablet 180 mg PO DAILY RF: 0 pantoprazole 20 mg Tablet,Delayed Release (Dr/Ec) 20 mg PO DAILY RF: 0 Primary Care Provider: Miguelito Unger Referrals: Miguelito Unger MD [Primary Care Provider] - Activity Restrictions/Additional Instructions: Please follow-up with your primary care doctor as well as your lens coating technician as scheduled. At this time you do not have any signs of pneumonia, concerning arrhythmia or heart attack or blood clot in the lungs. Disposition Disposition: Home, self care
[2020-11-22 00:15] VITALS: O2SAT 100
[2020-11-22 00:18] LABS: Absolute Neutrophil Count 11.8 X10^3/uL (2.0-7.7); Basophil# 0.07 X10^3/uL; Basophil% 0.4 % (0-1); Eosinophil# 0.37 X10^3/uL; Eosinophils% 2.2 % (0-5); Hematocrit 36.1 % (37-47); Hemoglobin 11.1 g/dL (12.0-15.0); Lymphocyte % 20.9 % (19-41); Mean Corp Hgb Conc 30.7 g/dL (32-36); Mean Corpuscular Hgb 24.7 pg (27.0-32.0); Mean Corpuscular Volume 80.2 fL (81-99); Mean Platelet Vol. 9.3 fl (6.2-12.0); Monocyte# 0.85 X10^3/uL; Monocyte% 5.1 % (0-10); NRBC Flagged by Analyzer 0 % (0-5); Neutrophil % 70.5 % (47-70); Platelet Count 421 K/mm3 (150-450); RBC Distribution Width CV 15.5 % (11.6-14.6); RBC Distribution Width SD 44.2 fl (35.1-43.9); White Blood Count 16.7 K/mm3 (4.4-11.0)
[2020-11-22] MEDS: Aspirin 81 MG TAB.CHEW 324 MG PO (00:26)
[2020-11-22] MEDS: 0.9% Normal Saline 1,000 ML 1000 ML IV (00:26)
[2020-11-22 00:29] LABS: D-Dimer Quantitative (DVT/PE) 0.35 FEU/ug/m (0.27-0.49)
[2020-11-22 00:42] LABS: Anion Gap 8 (5-15); BUN 10 mg/dL (7-18); BUN/Creat Ratio 12.6 RATIO (10-20); Calcium,Total 9.5 mg/dL (8.5-10.1); Chloride 105 mmol/L (98-107); Creatinine, Serum 0.79 mg/dL (0.55-1.02); EST Glomerular Filtration Rate 95 mL/min (>60); Est Glom Filt Rate - Afr Amer 115 mL/min (>60); Estimated Creatinine Clearance 111.72 ml/min; Glucose 210 mg/dL (74-106); Potassium 3.9 mmol/L (3.5-5.1); Sodium Level 138 mmol/L (136-145); Thyroid Stim Hormone (TSH) 2.41 uIU/mL (0.358-3.74)
[2020-11-22] MEDS: Acetaminophen 325 MG Tablet 650 MG PO (01:05)
[2020-11-22] MEDS: Ondansetron 4 MG/2 ML Vial IV (01:58)
[2020-11-22 02:39] VITALS: PULSE 92; RESP 11; O2SAT 96
[2020-11-22 04:03] VITALS: PULSE 92; RESP 16; O2SAT 97
[2020-11-22] MEDS: Mag Hydrox/Al Hydrox/Simeth 30 ML UDC PO (04:05)
== END 2020-11-22 04:05 | disposition home or self-care (01) ==
PROVIDERS: Emergency Provider Emergency Medicine; PCP Family Medicine
DX: R07.9 Chest pain, unspecified (principal); E66.9 Obesity, unspecified; E11.9 Type 2 diabetes mellitus without complications; K21.9 Gastro-esophageal reflux disease without esophagitis; Z79.84 Long term (current) use of oral hypoglycemic drugs; Z79.899 Other long term (current) drug therapy
CPT/HCPCS: 71045; 80048; 84443; 84484; 85025; 85379; 93005; 96374; 99285; J7030; A4216; J2405

== ENCOUNTER 2020-11-30 16:10 | Emergency (ER) | payer BC, MEDICAID, SELFPAY ==
[2020-11-30 16:10] VITALS: BP 153/96; PULSE 114; RESP 18; TEMP 35.8; O2SAT 97; BMI 66.0
--- NOTE | 2020-11-30 16:49 | EKG12_ITS ---
Test Reason : CP Blood Pressure : / mmHG Vent. Rate : 104 BPM Atrial Rate : 104 BPM P-R Int : 154 ms QRS Dur : 094 ms QT Int : 362 ms P-R-T Axes : 014 045 017 degrees QTc Int : 476 ms Sinus tachycardia Anterior infarct , age undetermined , cannot be excluded Abnormal ECG Confirmed by SEVERO MARCH, HOLLAND ([id number]), newspaper copy editor KRISTIE CARRERO ([id number]) on 12/04/2020 8:36:38 AM Referred By: ARYAN Confirmed By:HOLLAND ELKINS MD
--- NOTE | 2020-11-30 16:51 | ED.VIS.DYS ---
HPI History of Present Illness Chief Complaint: Shortness of Breath Detail of Chief Complaint: Shortness of breath that started today. Informant: patient Narrative Narrative: Patient presents to the emergency department complaint of a cough and a sore throat that started yesterday. She complains of shortness of breath that started today and at times hurts when she takes a deep breath and sometimes she feels like she cannot get a full breath. Patient went to urgent care and they referred her to the ER for concern about a PE. Patient apparently had an EGD 2 days ago. She denies any swelling in her legs out of the ordinary. She has no history of PE or DVT. [facility] Medical History Asthma Cancer Diabetes GERD (gastroesophageal reflux disease) Obesity Ovarian cyst PCOS (polycystic ovarian syndrome) Home Medications metformin 1,000 mg PO DAILY 06/25/18 [History Last Taken 05/17/19] ferrous sulfate 1 tab PO DAILY 05/16/19 [History Last Taken 05/17/19] cholecalciferol (vitamin D3) 125 mcg PO DAILY 05/17/19 [History Last Taken 05/17/19] epinephrine 0.3 mg IM X1 PRN #1 syringe 05/14/20 [Rx Last Taken Unknown] bupropion HCl 300 mg 24 hr tablet, extended release 300 mg PO QAM 07/14/20 [History Last Taken Unknown] Fenofibrate 48 mg PO DAILY 07/23/20 [History Last Taken Unknown] sitagliptin 100 mg PO DAILY 07/23/20 [History Last Taken Unknown] gabapentin 100 mg PO DAILY 08/19/20 [History Last Taken Unknown] sucralfate 1 gm PO BID 09/20/20 [History Last Taken Unknown] ondansetron 4 mg PO Q8H PRN PRN #10 tablet 09/28/20 [Rx Last Taken Unknown] lidocaine HCl [Lidocaine Viscous] 15 ml MUCOUS MEMBRANE Q8H PRN #100 ml 10/04/20 [Rx Last Taken Unknown] metoclopramide HCl [Reglan] 10 mg PO Q6H PRN #20 tab 10/04/20 [Rx Last Taken Unknown] hydrocodone-acetaminophen 1 tab PO Q4H PRN PRN 2 Days #10 tablet 10/09/20 [Rx Last Taken Unknown] ondansetron 4 mg PO Q8H PRN PRN #10 tab 11/13/20 [Rx Last Taken Unknown] fexofenadine [Lorrie] 180 mg PO DAILY 11/21/20 [History Last Taken Unknown] pantoprazole 20 mg PO DAILY 11/21/20 [History Last Taken Unknown] benzonatate 200 mg PO BID PRN #20 cap 11/30/20 [Rx Last Taken Unknown] prednisone 20 mg PO BID #7 tab 11/30/20 [Rx Last Taken Unknown] Allergy/AdvReac Type Severity Reaction Status Date / Time penicillin V potassium Allergy Mild Rash Verified 11/30/20 16:10 [From Pen-Vee K] brompheniramine maleate Allergy Shortness Verified 11/30/20 16:10 [From Dimetapp of breath (brompheniramine-PPA)] celery Allergy Swelling Verified 11/30/20 16:10 phenylpropanolamine HCl Allergy Shortness Verified 11/30/20 16:10 [From Dimetapp of breath (brompheniramine-PPA)] amoxicillin trihydrate AdvReac Intermediate Diarrhea Verified 11/30/20 16:10 [From Augmentin] potassium clavulanate AdvReac Intermediate Diarrhea Verified 11/30/20 16:10 [From Augmentin] dicyclomine HCl [From Bentyl] AdvReac Nausea/Vom/ Verified 11/30/20 16:10 Diarrhea plastic tape Allergy Rash Uncoded 11/30/20 16:10 FRUCTOSE AdvReac Nausea/Vom/ Uncoded 11/30/20 16:10 Diarrhea Family History Father Diabetes Mother Hypertension Grandmother Breast cancer 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 H/O endoscopy H/O oophorectomy H/O ovarian cystectomy H/O wisdom tooth extraction History of tonsillectomy and adenoidectomy Hx of cholecystectomy Social History Smoking Status: Never smoker alcohol intake: current alcohol intake frequency: a few times a month substance use type: does not use seatbelt use: always do you feel safe at home: Yes ROS ROS ED Constitutional Constitutional ED: Reports systems reviewed and no addt'l complaints, except as documented; Denies body ache(s), change in weight or chills Eyes Eyes: Denies acute decrease in peripheral vision, change in vision, double vision or loss of vision ENT ENT ED: Reports none and sore throat; Denies ear pain, lip swelling, loss taste/smell, neck pain or otalgia Cardiovascular Cardiovascular: Reports none; Denies abdominal pain, chest pain with activity, leg edema, lightheadedness, palpitations, rapid heart rate or syncope Respiratory/Chest Respiratory/Chest: Reports none, cough and dyspnea; Denies change in mental status, dry cough, hemoptysis, shortness of breath at rest or shortness of breath with exertion Gastrointestinal Gastrointestinal: Reports none; Denies abdominal pain, change in stool character, diarrhea, hematemesis, hematochezia, melena, rectal bleeding or vomiting Genitourinary Genitourinary ED: Reports none; Denies abdominal discomfort, anuria, dysuria, genital pain or polyuria Musculoskeletal Musculoskeletal: Reports none; Denies arthralgias, back pain, difficulty walking, extremity pain, muscle weakness or myalgias Integumentary Reports none; Denies abscess or rash Neurologic Neurologic: Reports none; Denies abnormal gait, confusion, focal weakness, frequent falls, headache(s), loss of vision, numbness, paresthesias, radicular pain, vertigo or weakness Psychiatric Psychiatric: Reports systems reviewed and no addt'l complaints, except as documented and none; Denies behavioral changes, confusion, difficulty concentrating, hallucinations, suicidal ideation, tactile hallucinations or visual hallucinations Endocrine Endocrinology: Denies none, cold intolerance, excessive sweating, fatigue or heat intolerance Hematologic/Lymphatic Hematologic/Lymphatic: Reports none; Denies anemia, easy bleeding or easy bruising Allergic/Immunologic Allergic/Immunologic ED: Denies as per HPI, none, lip swelling, mouth swelling, throat swelling, tongue swelling or hives EXAM Physical Exam Const Vital Signs: 11/30/20 16:10 11/30/20 17:18 11/30/20 17:19 Temperature 96.5 F L Temperature Source Temporal Pulse Rate 114 H 114 H Respiratory Rate 18 20 H Respiratory Effort Normal Respiratory Depth Normal Respiratory Pattern Tachypnea Normal Blood Pressure 153/96 H Blood Pressure Mean 115 Pulse Ox 97 Oxygen Delivery Method Room Air 11/30/20 19:11 Temperature Temperature Source Pulse Rate 109 H Respiratory Rate 22 H Respiratory Effort Respiratory Depth Respiratory Pattern Tachypnea Blood Pressure Blood Pressure Mean Pulse Ox Oxygen Delivery Method Positive well nourished and well developed General Appearance ED: well developed and NAD HEENT Reports TM's clear and moist mucous membranes HEENT Narrative: No significant pharyngeal erythema. No exudates. Uvula midline without trismus. normocephalic and atraumatic; Negative for trauma or tenderness Tympanic Membrane ED: Yes TM's clear Eyes PERRL and EOMs intact bilaterally General Eye ED: Negative for pale conjunctiva or scleral icterus Neck no lymphadenopathy, supple and no JVD General: Negative for tenderness Chest Wall inspection of chest normal and palpation of chest normal Chest: Negative for tenderness Resp normal respiratory effort and clear to auscultation bilaterally Effort and Inspection: Negative for respiratory distress or pain with movement Auscultation: Negative for rhonchi, wheezes or diminished lung sounds Cardio regular rate, regular rhythm, S1 normal heart sound, S2 normal heart sound and no murmurs Peripheral Pulses: pulses 2+ throughout GI normal to inspection, nondistended, normoactive bowel sounds, soft to palpation, non-tender, non-distended and no masses Back/Spine no CVA tenderness and no thoracic nor lumbar tenderness Extremity normal to inspection General Extremety ED: Negative for edema General Extremity: Negative for edema Neuro oriented x3, CN's II-XII intact bilaterally, no sensory deficits noted and gait normal Sensorium / Orientation: awake, alert, oriented to person, oriented to place and oriented to time Motor Exam: strength 5/5 throughout and strength abnormal Psych mental status grossly normal Skin no rashes or lesions noted and no wounds MDM MDM MDM Narrative Medical decision making narrative: Solomon hawley has a history of a chronically elevated white blood cell count and she has seen hematology for this and no etiology was found. Patient's chest x-ray was unremarkable. I suspect likely a viral URI with reactive airway disease. Patient currently on Macrobid for possible UTI. Patient to follow-up with her primary care physician 3 to 5 days. I will start her on Tessalon Perles and prednisone for a few days. Lab Data Attestation: I reviewed the patient's lab results. Labs: Laboratory Results - last 24 hr 11/30/20 11/30/20 11/30/20 17:10 17:10 17:10 WBC 17.5 H RBC 4.56 Hgb 11.1 L Hct 36.7 L MCV 80.5 L MCH 24.3 L MCHC 30.2 L RDW Std Deviation 45.2 H RDW Coeff of Silvia 16.1 H Plt Count 454 H MPV 10.2 Immature Gran % (Auto) 0.700 Neut % (Auto) 73.7 H Lymph % (Auto) 18.7 L Mills % (Auto) 5.0 Eos % (Auto) 1.5 Baso % (Auto) 0.4 Absolute Neuts (auto) 12.9 H Absolute Lymphs (auto) 3.27 Nucleated RBC % 0 D-Dimer Quant (PE/DVT) 0.41 Sodium 137 Potassium 4.3 Chloride 105 Carbon Dioxide 24.0 Anion Gap 8 BUN 11 Creatinine 0.70 Estim Creat Clear Calc 126.09 Est GFR (MDRD) Af Amer 134 Est GFR (MDRD) Non-Af 110 BUN/Creatinine Ratio 15.8 Glucose 143 H Lactic Acid Calcium 9.4 11/30/20 17:10 WBC RBC Hgb Hct MCV MCH MCHC RDW Std Deviation RDW Coeff of Silvia Plt Count MPV Immature Gran % (Auto) Neut % (Auto) Lymph % (Auto) Mills % (Auto) Eos % (Auto) Baso % (Auto) Absolute Neuts (auto) Absolute Lymphs (auto) Nucleated RBC % D-Dimer Quant (PE/DVT) Sodium Potassium Chloride Carbon Dioxide Anion Gap BUN Creatinine Estim Creat Clear Calc Est GFR (MDRD) Af Amer Est GFR (MDRD) Non-Af BUN/Creatinine Ratio Glucose Lactic Acid 1.7 Calcium Radiography Chest X-Ray - ED: 1 View Diagnostic Testing: Radiology Impression Chest X-Ray 11/30/20 19:03 IMPRESSION: Normal x-ray examination of the chest. No interval change. Electronically Signed: Tripp Salcido DO at 20:05 EDT Tel [phone], Service support , 1 view chest x-ray obtained interpreted by myself as no acute disease process. Radiology in agreement. EKG Initial EKG: Attestation: I personally reviewed and interpreted this EKG as follows: Comments: Sinus rhythm with a ventricular rate of 104 bpm with questionable old anterior infarct noted Prior EKG tracings: available for review Prior: Unchanged Discharge Plan Triage Chief Complaint: Shortness of Breath ED Provider: Mega Posey Dx/Rx/DC Orders Clinical Impression: Viral upper respiratory infection, RAD (reactive airway disease) Instructions: ED Bronchospasm (Adult), ED URI, Viral, No Abx (Adult) Prescriptions: New prednisone 20 mg tablet 20 mg PO BID Qty: 7 RF: 0 benzonatate 200 mg capsule 200 mg PO BID PRN (Reason: cough) Qty: 20 RF: 0 No Action bupropion HCl [Wellbutrin XL] 300 mg tablet extended release 24 hr 300 mg PO QAM RF: 0 metformin 1,000 MG tablet 1,000 mg PO DAILY RF: 0 ferrous sulfate 325 MG tablet 1 tab PO DAILY RF: 0 cholecalciferol (vitamin D3) 125 MCG capsule 125 mcg PO DAILY RF: 0 epinephrine 0.3 MG syringe 0.3 mg IM X1 PRN (Reason: Anaphylaxis) Qty: 1 RF: 0 sitagliptin 100 MG tablet 100 mg PO DAILY RF: 0 Fenofibrate 48 mg PO DAILY RF: 0 gabapentin 100 MG capsule 100 mg PO DAILY RF: 0 sucralfate 1 GM tablet 1 gm PO BID RF: 0 ondansetron 4 MG tablet 4 mg PO Q8H PRN PRN (Reason: Nausea) Qty: 10 RF: 0 metoclopramide HCl [Reglan] 10 mg tablet 10 mg PO Q6H PRN (Reason: nausea and vomiting) Qty: 20 RF: 0 lidocaine HCl [Lidocaine Viscous] 2 % solution 15 ml mucous membrane Q8H PRN (Reason: pain) Qty: 100 RF: 0 hydrocodone-acetaminophen [hydrocodone-acetaminophen] 1 TABLET tablet 1 tab PO Q4H PRN PRN (Reason: Pain) 2 Days Qty: 10 RF: 0 ondansetron [ondansetron] 4 MG tablet 4 mg PO Q8H PRN PRN (Reason: Nausea) Qty: 10 RF: 0 fexofenadine [Lorrie] 180 mg Tablet 180 mg PO DAILY RF: 0 pantoprazole 20 mg Tablet,Delayed Release (Dr/Ec) 20 mg PO DAILY RF: 0 Primary Care Provider: Miguelito Unger Referrals: Miguelito Unger MD [Primary Care Provider] - 3-5 Days Disposition Disposition: Home, Self Care
[2020-11-30] MEDS: Ipratropium/Albuterol Sulfate 3 ML AMPUL.NEB INHALATION ×2 (17:16→19:11)
[2020-11-30 17:18] VITALS: PULSE 114; RESP 20
[2020-11-30 17:19] VITALS: O2SAT 96
[2020-11-30 17:19] LABS: Absolute Lymphocyte Count 3.27 X10^3/uL (0.83-4.51); Absolute Neutrophil Count 12.9 X10^3/uL (2.0-7.7); Basophil# 0.07 X10^3/uL; Basophil% 0.4 % (0-1); Eosinophil# 0.27 X10^3/uL; Eosinophils% 1.5 % (0-5); Hematocrit 36.7 % (37-47); Hemoglobin 11.1 g/dL (12.0-15.0); Lymphocyte # 3.27 X10^3/ul (0.83-4.51); Lymphocyte % 18.7 % (19-41); Mean Corp Hgb Conc 30.2 g/dL (32-36); Mean Corpuscular Hgb 24.3 pg (27.0-32.0); Mean Corpuscular Volume 80.5 fL (81-99); Mean Platelet Vol. 10.2 fl (6.2-12.0); Monocyte# 0.88 X10^3/uL; NRBC Flagged by Analyzer 0 % (0-5); Neutrophil # 12.87 X10^3/uL (2.7-7.7); Neutrophil % 73.7 % (47-70); Platelet Count 454 K/mm3 (150-450); RBC Distribution Width CV 16.1 % (11.6-14.6); RBC Distribution Width SD 45.2 fl (35.1-43.9); Red Blood Count 4.56 M/mm3 (4.2-5.4); White Blood Count 17.5 K/mm3 (4.4-11.0)
[2020-11-30 17:35] LABS: Anion Gap 8 (5-15); BUN 11 mg/dL (7-18); BUN/Creat Ratio 15.8 RATIO (10-20); Calcium,Total 9.4 mg/dL (8.5-10.1); Chloride 105 mmol/L (98-107); D-Dimer Quantitative (DVT/PE) 0.41 FEU/ug/m (0.27-0.49); EST Glomerular Filtration Rate 110 mL/min (>60); Est Glom Filt Rate - Afr Amer 134 mL/min (>60); Estimated Creatinine Clearance 126.09 ml/min; Glucose 143 mg/dL (74-106); Potassium 4.3 mmol/L (3.5-5.1); Sodium Level 137 mmol/L (136-145)
[2020-11-30 17:54] LABS: Lactic Acid 1.7 mmol/L (0.4-1.9)
--- NOTE | 2020-11-30 19:01 | ED.RN ---
PT REPORTS INCREASED SOB. REQUESTS BREATHING TX. DUONEB ORDERED PER DR. HA. RESPIRATORY NOTIFIED.
--- NOTE | 2020-11-30 19:03 | RAD_ITS ---
STUDY: X-RAY CHEST REASON FOR EXAM: Female, 25 years old. Yes. TECHNIQUE: Single AP portable view of the chest. COMPARISON: 11/22/2020. FINDINGS: The lungs are clear and expanded. There is no demonstrated pleural abnormality. Normal size heart. Normal mediastinum and ana cristina. Normal visualized pulmonary arteries. Normal visualized aortic arch and descending thoracic aorta. Normal visualized thoracic spine. Normal visualized ribs, clavicles, and shoulders. There is no demonstrated abnormality of the visualized soft tissue structures of the upper abdomen. RAD/Chest 1 View (Portable) IMPRESSION: Normal x-ray examination of the chest. No interval change. Electronically Signed: Tripp Salcido DO at 20:05 EDT Tel [phone], Service support ,
[2020-11-30 19:11] VITALS: PULSE 109; RESP 22
[2020-11-30] MEDS: predniSONE 20 MG Tablet 40 MG PO (20:33)
== END 2020-11-30 20:36 | disposition home or self-care (01) ==
PROVIDERS: Emergency Provider Emergency Medicine; PCP Family Medicine
DX: J06.9 Acute upper respiratory infection, unspecified (principal); J45.909 Unspecified asthma, uncomplicated; E66.9 Obesity, unspecified
CPT/HCPCS: 71045; 80048; 83605; 85025; 85379; 87040; 87880; 93005; 94640; 99285; J7030; A4216

== ENCOUNTER → 2021-01-07 12:20 | Outpatient (CLI) | payer BC, MEDICAID, SELFPAY ==
--- NOTE | 2021-01-07 12:25 | MRI_ITS ---
STUDY: MRI LUMBAR SPINE WITHOUT CONTRAST REASON FOR EXAM: Female, 25 years old. SPINAL STENOSIS,pain low back and left leg COMPARISON: Previous MRI obtained on 04/23/2020, previous CT scan of the abdomen and pelvis with sagittal reconstruction images obtained on 09/28/2020 TECHNIQUE: An MRI lumbar spine was performed utilizing T1 and fast spin-echo T2-weighted and STIR weighted sagittal images followed by angled axial T1 and T2-weighted images obtained from above the T12-L1 intervertebral disc space level down to the L5-S1 level. FINDINGS: L1-L2: The intervertebral disc and neural foramina appear to be normal. L2-L3:The intervertebral disc and neural foramina appear to be normal.L2-L3:A mild diffusely bulging is noted at this location with a small central disc bulge/protrusion which was seen previously and is unchanged and is causing very minimal compression of the anterior aspect of the lumbar subarachnoid space. Since nerve root compression identified this is of questionable clinical significance, and the neural foramina appear to be normal bilaterally. This is unchanged from the previous study. L3-L4: The intervertebral disc and neural foramina appear to be normal.L2-L3:A mild diffusely bulging is noted at this location with a small central disc bulge/protrusion which was seen previously and is unchanged and is causing very minimal compression of the anterior aspect of the lumbar subarachnoid space. Since nerve root compression identified this is of questionable clinical significance, and the neural foramina appear to be normal bilaterally.This is unchanged from the previous study. L4-L5: The intervertebral disc and neural foramina appear to be normal. L5-S1: Again noted is a large paracentral disc protrusion/herniation on the left which is causing some mild compression of the passing left S1 nerve root. This, again, was previously identified and is not symmetrically changed. The right S1 nerve root appears to be normal. No central spinal stenosis is seen. Conus medullaris and lumbar nerve roots: The conus medullaris ends at the T12-L1 level and appears to be normal. The lumbar nerve roots appear to be normal. Lumbar spine: The lumbar spine appears to be in good position and alignment. The bone marrow of the lumbar vertebral bodies appears to be normal. No vertebral body compression fractures are seen. No significant facet arthropathy is identified MRI/Spine Lumbar (Routine) IMPRESSION: A diffusely bulging discs is noted at the L5-S1 level with a paracentral disc herniation noted on the left causing some mild compression of the left S1 nerve root. These findings are unchanged from the previous MRI. Electronically Signed: Graham Louise DO at 14:28 EDT Tel , Service support ,
== END ==
PROVIDERS: PCP Family Medicine; Referring Provider Orthopaedic Surgery; Visit Provider Orthopaedic Surgery
DX: M51.26 Other intervertebral disc displacement, lumbar region (principal); M48.07 Spinal stenosis, lumbosacral region
CPT/HCPCS: 72148

== ENCOUNTER 2021-01-10 21:30 | Emergency (ER) | payer BC, MEDICAID, SELFPAY ==
[2021-01-10 21:31] VITALS: BP 169/91; PULSE 108; RESP 16; TEMP 36.7; O2SAT 98; BMI 66.9
[2021-01-10] MEDS: HYDROmorphone 1 MG/ML Syringe IM (22:41)
--- NOTE | 2021-01-10 23:24 | ED.VIS.BACK ---
HPI History of Present Illness Chief Complaint: Back Informant: patient and parent Narrative Narrative: Patient is a 25-year-old female with history of lumbar disc disease presenting with worsening of her low back pain. Patient states that she follows with pain management, Dr. Erickson and he increased her Percocet prescription however she not any relief of her pain. She states she is chronic low back pain is actually supposed to have a surgery coming up. She had a repeat MRI Thursday of this week and since then she has had exacerbation of her pain. MRI results reviewed by myself which show diffusely bulging discs is noted at the L5-S1 level with a paracentral disc herniation noted on the left causing some mild compression of the left S1 nerve root. These findings are unchanged from the previous MRI. Patient states the pain is in her left lower back and radiates down her leg. She has some associated numbness or tingling. She denies any saddle anesthesia or incontinence. She states that she is having a hard time wiping herself because of the pain. She states the pain is more severe than normal and it takes her breath away. Radiates down her left leg. She denies any fever or chills. No other complaints at this time. Prior similar symptoms: Yes and With Prior Back Pain [facility] Medical History Asthma Cancer Abner's disease Diabetes GERD (gastroesophageal reflux disease) Obesity Ovarian cyst PCOS (polycystic ovarian syndrome) Home Medications metformin 1,000 mg PO DAILY 06/25/18 [History Last Taken 05/17/19] ferrous sulfate 1 tab PO DAILY 05/16/19 [History Last Taken 05/17/19] cholecalciferol (vitamin D3) 125 mcg PO DAILY 05/17/19 [History Last Taken 05/17/19] epinephrine 0.3 mg IM X1 PRN #1 syringe 05/14/20 [Rx Last Taken Unknown] bupropion HCl 300 mg 24 hr tablet, extended release 300 mg PO QAM 07/14/20 [History Last Taken Unknown] Fenofibrate 48 mg PO DAILY 07/23/20 [History Last Taken Unknown] sitagliptin 100 mg PO DAILY 07/23/20 [History Last Taken Unknown] gabapentin 100 mg PO DAILY 08/19/20 [History Last Taken Unknown] sucralfate 1 gm PO BID 09/20/20 [History Last Taken Unknown] ondansetron 4 mg PO Q8H PRN PRN #10 tablet 09/28/20 [Rx Last Taken Unknown] lidocaine HCl [Lidocaine Viscous] 15 ml MUCOUS MEMBRANE Q8H PRN #100 ml 10/04/20 [Rx Last Taken Unknown] metoclopramide HCl [Reglan] 10 mg PO Q6H PRN #20 tab 10/04/20 [Rx Last Taken Unknown] fexofenadine [Lorrie] 180 mg PO DAILY 11/21/20 [History Last Taken Unknown] pantoprazole 20 mg PO DAILY 11/21/20 [History Last Taken Unknown] benzonatate 200 mg PO BID PRN #20 cap 11/30/20 [Rx Last Taken Unknown] citalopram 40 mg PO DAILY 01/10/21 [History Last Taken Unknown] hydroxyzine HCl [Atarax] 25 mg PO QHS 01/10/21 [History Last Taken Unknown] metoprolol tartrate 25 mg PO DAILY 01/10/21 [History Last Taken Unknown] oxycodone-acetaminophen [Percocet] 1 tab PO Q6H PRN 01/10/21 [History Last Taken Unknown] Allergy/AdvReac Type Severity Reaction Status Date / Time penicillin V potassium Allergy Mild Rash Verified 01/10/21 21:35 [From Pen-Vee K] brompheniramine maleate Allergy Shortness Verified 01/10/21 21:35 [From Dimetapp of breath (brompheniramine-PPA)] celery Allergy Swelling Verified 01/10/21 21:35 phenylpropanolamine HCl Allergy Shortness Verified 01/10/21 21:35 [From Dimetapp of breath (brompheniramine-PPA)] amoxicillin trihydrate AdvReac Intermediate Diarrhea Verified 01/10/21 21:35 [From Augmentin] potassium clavulanate AdvReac Intermediate Diarrhea Verified 01/10/21 21:35 [From Augmentin] dicyclomine HCl [From Bentyl] AdvReac Nausea/Vom/ Verified 01/10/21 21:35 Diarrhea plastic tape Allergy Rash Uncoded 01/10/21 21:35 FRUCTOSE AdvReac Nausea/Vom/ Uncoded 01/10/21 21:35 Diarrhea Family History Father Diabetes Mother Hypertension Grandmother Breast cancer 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 H/O endoscopy H/O oophorectomy H/O ovarian cystectomy H/O wisdom tooth extraction History of tonsillectomy and adenoidectomy Hx of cholecystectomy Social History Smoking Status: Never smoker alcohol intake: current alcohol intake frequency: a few times a month substance use type: does not use seatbelt use: always do you feel safe at home: Yes ROS ROS ED Constitutional Constitutional ED: Denies chills or fever(s) Eyes Eyes: Denies change in vision ENT ENT ED: Denies sore throat Cardiovascular Cardiovascular: Denies chest pain Respiratory/Chest Respiratory/Chest: Denies dyspnea or sputum Gastrointestinal Gastrointestinal: Denies abdominal pain or vomiting Genitourinary Genitourinary ED: Denies dysuria or urinary frequency Musculoskeletal Musculoskeletal: Reports back pain; Denies arthralgias Integumentary Denies rash Neurologic Neurologic: Denies headache(s), paresthesias or weakness Psychiatric Psychiatric: Denies depression EXAM Physical Exam Const Vital Signs: 01/10/21 21:31 Temperature 98.0 F Temperature Source Temporal Pulse Rate 108 H Respiratory Rate 16 Blood Pressure 169/91 H Blood Pressure Mean 117 Pulse Ox 98 Oxygen Delivery Method Room Air Positive well developed and obese General Appearance ED: well developed Nutritional Appearance: obese HEENT Reports moist mucous membranes Eyes PERRL Neck supple General: normal visual inspection Resp normal respiratory effort and clear to auscultation bilaterally Cardio regular rate, regular rhythm and no murmurs GI normal to inspection, nondistended, normoactive bowel sounds Back/Spine Back/Spine Narrative: Diffuse tenderness stable light palpation of the lumbar region including paraspinal, flank and midline areas. No obvious deformity. Patient pulled my hand away during exam so difficult to fully evaluate. Extremity normal to inspection Extremity Narrative: 2+ bilateral DP pulses General Extremety ED: Negative for edema or tenderness General Extremity: Negative for edema Neuro oriented x3 and no sensory deficits noted Sensorium / Orientation: alert Motor Exam: strength 5/5 throughout Psych mental status grossly normal Skin no rashes or lesions noted MDM MDM MDM Narrative Medical decision making narrative: Patient evaluated for worsening low back pain. It seems to be triggered by having an MRI this week. MRI reviewed does not show any compression requiring emergent evaluation. Patient given IM Dilaudid for pain control in the ER. She is able to ambulate to and from the bathroom. I do not think she requires repeat imaging emergently at this time. She is discharged home to follow-up with a pain management doctor. She has a prescription for Percocet at home. She does not have findings concerning for cauda equina based on history and physical exam. Patient discharged home. Discharge Plan Triage Chief Complaint: Back ED Provider: Hedy Nichols Dx/Rx/DC Orders Clinical Impression: Lumbar back pain with radiculopathy affecting lower extremity Instructions: ED Back Pain (Acute or Chronic) Prescriptions: No Action bupropion HCl [Wellbutrin XL] 300 mg tablet extended release 24 hr 300 mg PO QAM RF: 0 metformin 1,000 MG tablet 1,000 mg PO DAILY RF: 0 ferrous sulfate 325 MG tablet 1 tab PO DAILY RF: 0 cholecalciferol (vitamin D3) 125 MCG capsule 125 mcg PO DAILY RF: 0 epinephrine 0.3 MG syringe 0.3 mg IM X1 PRN (Reason: Anaphylaxis) Qty: 1 RF: 0 sitagliptin 100 MG tablet 100 mg PO DAILY RF: 0 Fenofibrate 48 mg PO DAILY RF: 0 gabapentin 100 MG capsule 100 mg PO DAILY RF: 0 sucralfate 1 GM tablet 1 gm PO BID RF: 0 ondansetron 4 MG tablet 4 mg PO Q8H PRN PRN (Reason: Nausea) Qty: 10 RF: 0 metoclopramide HCl [Reglan] 10 mg tablet 10 mg PO Q6H PRN (Reason: nausea and vomiting) Qty: 20 RF: 0 lidocaine HCl [Lidocaine Viscous] 2 % solution 15 ml mucous membrane Q8H PRN (Reason: pain) Qty: 100 RF: 0 fexofenadine [Lorrie] 180 mg Tablet 180 mg PO DAILY RF: 0 pantoprazole 20 mg Tablet,Delayed Release (Dr/Ec) 20 mg PO DAILY RF: 0 benzonatate 200 mg capsule 200 mg PO BID PRN (Reason: cough) Qty: 20 RF: 0 oxycodone-acetaminophen [Percocet] 5-325 mg Tablet 1 tab PO Q6H PRN (Reason: Pain) RF: 0 metoprolol tartrate 25 mg Tablet 25 mg PO DAILY RF: 0 citalopram 40 mg Tablet 40 mg PO DAILY RF: 0 hydroxyzine HCl [Atarax] 25 mg Tablet 25 mg PO QHS RF: 0 Primary Care Provider: Miguelito Unger Referrals: Miguelito Unger MD [Primary Care Provider] - Activity Restrictions/Additional Instructions: Please follow-up with your back doctor as well as your pain management doctor. Disposition Disposition: Home, Self Care Discharge Date/Time: 01/10/21 23:36
== END 2021-01-10 23:36 | disposition home or self-care (01) ==
PROVIDERS: Emergency Provider Emergency Medicine; PCP Family Medicine
DX: M54.16 Radiculopathy, lumbar region (principal); E66.9 Obesity, unspecified; G89.29 Other chronic pain; E11.9 Type 2 diabetes mellitus without complications; K21.9 Gastro-esophageal reflux disease without esophagitis; Z79.84 Long term (current) use of oral hypoglycemic drugs; Z79.899 Other long term (current) drug therapy
CPT/HCPCS: 96372; 99282

== ENCOUNTER 2021-01-11 16:31 | Emergency (ER) | payer BC, MEDICAID, SELFPAY ==
[2021-01-10 21:31] VITALS: BMI 66.9
[2021-01-11 16:33] VITALS: BP 141/89; PULSE 108; RESP 16; TEMP 36.1; O2SAT 100; BMI 66.9
--- NOTE | 2021-01-11 16:55 | ED.VIS.BACK ---
HPI History of Present Illness Chief Complaint: Back Informant: patient and parent Onset/Context/Timing Onset: Weeks Timing: Continuous Quality: Sharp Location: Lumbar and Left Leg Current Severity: Moderate Maximum Severity: Severe Worsened by: improves with Movement Relieved by: Remaining Still Associated Symptoms Associated Symptoms: Radiation to Left Leg; Negative for Abdominal Pain, Dysuria, Unable to Ambulate, Unable to Transfer, Urinary Retention, Urinary Incontinence, Constipation and Fecal Incontinence Narrative Narrative: 25-year-old female history of diabetes prior ovarian cancer and surgeries for cholecystectomy, tonsillectomy and adrenalectomy. She has known degenerative disc disease in her lumbar spine at L5-S1. She just had an MRI on January 07 showing this. And a prior MRI showing similar last April. She is supposed to get back surgery but that is been delayed by her insurance and the need to get the recent MRI. She was seen yesterday was given an injection of Dilaudid. She sees pain management. She is on home Percocet and ibuprofen which she states is not cutting the pain. Also gabapentin. And just started today a taper dose of steroids. She denies any bowel or bladder incontinence. She denies any fever. She denies any falls or trauma. Prior similar symptoms: Yes Recent Illness/Hospitalization: No PFSH PFS Medical History Asthma Cancer Abner's disease Diabetes GERD (gastroesophageal reflux disease) Obesity Ovarian cyst PCOS (polycystic ovarian syndrome) Home Medications metformin 1,000 mg PO DAILY 06/25/18 [History Last Taken 05/17/19] ferrous sulfate 1 tab PO DAILY 05/16/19 [History Last Taken 05/17/19] cholecalciferol (vitamin D3) 125 mcg PO DAILY 05/17/19 [History Last Taken 05/17/19] epinephrine 0.3 mg IM X1 PRN #1 syringe 05/14/20 [Rx Last Taken Unknown] bupropion HCl 300 mg 24 hr tablet, extended release 300 mg PO QAM 07/14/20 [History Last Taken Unknown] Fenofibrate 48 mg PO DAILY 07/23/20 [History Last Taken Unknown] sitagliptin 100 mg PO DAILY 07/23/20 [History Last Taken Unknown] gabapentin 100 mg PO DAILY 08/19/20 [History Last Taken Unknown] sucralfate 1 gm PO BID 09/20/20 [History Last Taken Unknown] ondansetron 4 mg PO Q8H PRN PRN #10 tablet 09/28/20 [Rx Last Taken Unknown] lidocaine HCl [Lidocaine Viscous] 15 ml MUCOUS MEMBRANE Q8H PRN #100 ml 10/04/20 [Rx Last Taken Unknown] metoclopramide HCl [Reglan] 10 mg PO Q6H PRN #20 tab 10/04/20 [Rx Last Taken Unknown] fexofenadine [Lorrie] 180 mg PO DAILY 11/21/20 [History Last Taken Unknown] pantoprazole 20 mg PO DAILY 11/21/20 [History Last Taken Unknown] benzonatate 200 mg PO BID PRN #20 cap 11/30/20 [Rx Last Taken Unknown] citalopram 40 mg PO DAILY 01/10/21 [History Last Taken Unknown] hydroxyzine HCl [Atarax] 25 mg PO QHS 01/10/21 [History Last Taken Unknown] metoprolol tartrate 25 mg PO DAILY 01/10/21 [History Last Taken Unknown] oxycodone-acetaminophen [Percocet] 1 tab PO Q6H PRN 01/10/21 [History Last Taken Unknown] Allergy/AdvReac Type Severity Reaction Status Date / Time penicillin V potassium Allergy Mild Rash Verified 01/11/21 16:32 [From Pen-Vee K] brompheniramine maleate Allergy Shortness Verified 01/11/21 16:32 [From Dimetapp of breath (brompheniramine-PPA)] celery Allergy Swelling Verified 01/11/21 16:32 phenylpropanolamine HCl Allergy Shortness Verified 01/11/21 16:32 [From Dimetapp of breath (brompheniramine-PPA)] amoxicillin trihydrate AdvReac Intermediate Diarrhea Verified 01/11/21 16:32 [From Augmentin] potassium clavulanate AdvReac Intermediate Diarrhea Verified 01/11/21 16:32 [From Augmentin] dicyclomine HCl [From Bentyl] AdvReac Nausea/Vom/ Verified 01/11/21 16:32 Diarrhea plastic tape Allergy Rash Uncoded 01/11/21 16:32 FRUCTOSE AdvReac Nausea/Vom/ Uncoded 01/11/21 16:32 Diarrhea Family History Father Diabetes Mother Hypertension Grandmother Breast cancer 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 H/O endoscopy H/O oophorectomy H/O ovarian cystectomy H/O wisdom tooth extraction History of tonsillectomy and adenoidectomy Hx of cholecystectomy Social History Smoking Status: Never smoker alcohol intake: current alcohol intake frequency: a few times a month substance use type: does not use seatbelt use: always do you feel safe at home: Yes ROS ROS ED ROS Narrative Denies recent illness. Review of Systems ROS Unobtainable: Denies due to encephalopathy Constitutional Constitutional ED: Denies chills or fever(s) Eyes Eyes: Denies change in vision ENT ENT ED: Denies ear pain or sore throat Cardiovascular Cardiovascular: Denies chest pain Respiratory/Chest Respiratory/Chest: Denies dyspnea Gastrointestinal Gastrointestinal: Denies abdominal pain, diarrhea, nausea or vomiting Genitourinary Genitourinary ED: Denies dysuria or hematuria Musculoskeletal Musculoskeletal: Reports back pain; Denies myalgias Integumentary Denies abscess or rash Neurologic Neurologic: Denies headache(s) Psychiatric Psychiatric: Denies depression Endocrine Endocrinology: Denies polyuria Hematologic/Lymphatic Hematologic/Lymphatic: Denies easy bruising Allergic/Immunologic Allergic/Immunologic ED: Denies urticaria EXAM Physical Exam Narrative Exam Narrative: 25-year-old female lying prone on the bed. Mom at bedside. Vital signs stable afebrile. Patient is morbidly obese. Complaining of back pain. H EENT exam unremarkable. Neck nontender. Lungs clear to auscultation. Heart regular rhythm rate about 105 no murmur. Abdomen morbidly obese but soft nondistended normal bowel sounds no peritoneal signs. Back she has diffuse lumbar and paralumbar tenderness. No ecchymosis or bruising. No redness or warmth. Both upper and lower extremities are neurovascularly intact. She has a positive straight leg test on the left. Dorsi and plantar flexion are intact. She has no saddle anesthesia. She has normal medial thigh sensation. No signs of cauda equina. Neurologically she is awake alert with no focal motor deficits. Const Vital Signs: 01/11/21 16:33 Temperature 97 F L Temperature Source Temporal Pulse Rate 108 H Respiratory Rate 16 Blood Pressure 141/89 H Blood Pressure Mean 106 Pulse Ox 100 Positive well nourished, well developed and obese General Appearance ED: well developed; Negative for pallor Nutritional Appearance: obese HEENT Reports moist mucous membranes Negative for trauma or tenderness Eyes PERRL and EOMs intact bilaterally Neck no lymphadenopathy, supple and no JVD General: Negative for tenderness Resp normal respiratory effort and clear to auscultation bilaterally Cardio regular rhythm, S1 normal heart sound, S2 normal heart sound and no murmurs GI normal to inspection, nondistended, normoactive bowel sounds, soft to palpation, non-tender and non-distended Inspection: Negative for abdominal distention Palpation: Negative for tender, guarding or rebound tenderness present Back/Spine Back/Spine Narrative: Lumbar and paralumbar soft tissue tenderness. General Back: Negative for CVA tenderness Thoracic Spine / Upper Back: paraspinal muscle tenderness Extremity normal to inspection General Extremety ED: Negative for edema or tenderness General Extremity: Negative for edema Neuro oriented x3 and no sensory deficits noted Sensorium / Orientation: alert; Negative for confused, lethargic or stuporous Motor Exam: strength 5/5 throughout Psych mental status grossly normal Skin no rashes or lesions noted and no wounds General Skin Exam: Negative for jaundice or pallor MDM MDM MDM Narrative Medical decision making narrative: I did the patient and her mother that there was not much more we can add to the emergency department. She does not need any acute imaging today she literally had an MRI like for 5 days ago. She is following up with her spine surgeon at [facility]. She is already on Percocet, gabapentin, ibuprofen and tapered steroids currently. Should be given IM injection of Dilaudid and discharged to home. Discharge Plan Triage Chief Complaint: Back ED Provider: Cecilio Cabrera Dx/Rx/DC Orders Clinical Impression: Lumbar radiculopathy, Back pain Instructions: ED Back and Neck Pain, General Prescriptions: No Action bupropion HCl [Wellbutrin XL] 300 mg tablet extended release 24 hr 300 mg PO QAM RF: 0 metformin 1,000 MG tablet 1,000 mg PO DAILY RF: 0 ferrous sulfate 325 MG tablet 1 tab PO DAILY RF: 0 cholecalciferol (vitamin D3) 125 MCG capsule 125 mcg PO DAILY RF: 0 epinephrine 0.3 MG syringe 0.3 mg IM X1 PRN (Reason: Anaphylaxis) Qty: 1 RF: 0 sitagliptin 100 MG tablet 100 mg PO DAILY RF: 0 Fenofibrate 48 mg PO DAILY RF: 0 gabapentin 100 MG capsule 100 mg PO DAILY RF: 0 sucralfate 1 GM tablet 1 gm PO BID RF: 0 ondansetron 4 MG tablet 4 mg PO Q8H PRN PRN (Reason: Nausea) Qty: 10 RF: 0 metoclopramide HCl [Reglan] 10 mg tablet 10 mg PO Q6H PRN (Reason: nausea and vomiting) Qty: 20 RF: 0 lidocaine HCl [Lidocaine Viscous] 2 % solution 15 ml mucous membrane Q8H PRN (Reason: pain) Qty: 100 RF: 0 fexofenadine [Lorrie] 180 mg Tablet 180 mg PO DAILY RF: 0 pantoprazole 20 mg Tablet,Delayed Release (Dr/Ec) 20 mg PO DAILY RF: 0 benzonatate 200 mg capsule 200 mg PO BID PRN (Reason: cough) Qty: 20 RF: 0 oxycodone-acetaminophen [Percocet] 5-325 mg Tablet 1 tab PO Q6H PRN (Reason: Pain) RF: 0 metoprolol tartrate 25 mg Tablet 25 mg PO DAILY RF: 0 citalopram 40 mg Tablet 40 mg PO DAILY RF: 0 hydroxyzine HCl [Atarax] 25 mg Tablet 25 mg PO QHS RF: 0 Primary Care Provider: Miguelito Unger Referrals: Miguelito Unger MD [Primary Care Provider] - As Needed Activity Restrictions/Additional Instructions: Continue your current medications for your back. Call follow-up with your orthopedic spine physician soon as possible. Return if fever, bowel or bladder incontinence or unable to urinate or move your bowels or significant weakness in your lower extremities. Disposition Disposition: Home, Self Care
[2021-01-11] MEDS: HYDROmorphone 1 MG/ML Syringe IM (16:59)
== END 2021-01-11 17:36 | disposition home or self-care (01) ==
LOC: ED 17:05
PROVIDERS: Emergency Provider Emergency Medicine; PCP Family Medicine
DX: M54.16 Radiculopathy, lumbar region (principal); M54.5 Low back pain; E66.01 Morbid (severe) obesity due to excess calories; E11.9 Type 2 diabetes mellitus without complications; K21.9 Gastro-esophageal reflux disease without esophagitis; Z90.49 Acquired absence of other specified parts of digestive tract; Z79.84 Long term (current) use of oral hypoglycemic drugs; Z79.899 Other long term (current) drug therapy
CPT/HCPCS: 96372; 99282

== ENCOUNTER 2021-01-12 22:52 | Emergency (ER) | payer BC, MEDICAID, SELFPAY ==
[2021-01-11 16:33] VITALS: BMI 66.9
[2021-01-12 22:53] VITALS: BP 152/89; PULSE 94; RESP 18; TEMP 36.6; O2SAT 97; BMI 66.9
--- NOTE | 2021-01-12 23:10 | EDS_ITS ---
HPI History of Present Illness Chief Complaint: Back Informant: patient Narrative Narrative: Patient comes in with complaints of back pain. She has had back pain for about 6 or 7 years. She has had no surgery but they are planning for that soon. She just had an MRI about 5 days ago. After laying on the table for the MRI she has had exacerbation of her pain. It does radiate down the left leg. It goes to the lateral aspect of the lower leg. But this is not new. She has no bowel or bladder dysfunction. No saddle anesthesia. No fevers or chills or recent infections. She has been seen here for this recently. She does take chronic narcotics at home. There is really nothing new or different. This is her same pain is just harder to manage. She just started a steroid dose about 24 hours ago. [facility] Medical History Asthma Cancer [place]'s disease Diabetes GERD (gastroesophageal reflux disease) Obesity Ovarian cyst PCOS (polycystic ovarian syndrome) Home Medications metformin 1,000 mg PO DAILY 06/25/18 [History Last Taken 05/17/19] ferrous sulfate 1 tab PO DAILY 05/16/19 [History Last Taken 05/17/19] cholecalciferol (vitamin D3) 125 mcg PO DAILY 05/17/19 [History Last Taken 05/17/19] epinephrine 0.3 mg IM X1 PRN #1 syringe 05/14/20 [Rx Last Taken Unknown] bupropion HCl 300 mg 24 hr tablet, extended release 300 mg PO QAM 07/14/20 [History Last Taken Unknown] Fenofibrate 48 mg PO DAILY 07/23/20 [History Last Taken Unknown] sitagliptin 100 mg PO DAILY 07/23/20 [History Last Taken Unknown] gabapentin 100 mg PO DAILY 08/19/20 [History Last Taken Unknown] sucralfate 1 gm PO BID 09/20/20 [History Last Taken Unknown] ondansetron 4 mg PO Q8H PRN PRN #10 tablet 09/28/20 [Rx Last Taken Unknown] lidocaine HCl [Lidocaine Viscous] 15 ml MUCOUS MEMBRANE Q8H PRN #100 ml 10/04/20 [Rx Last Taken Unknown] metoclopramide HCl [Reglan] 10 mg PO Q6H PRN #20 tab 10/04/20 [Rx Last Taken Unknown] fexofenadine [Lorrie] 180 mg PO DAILY 11/21/20 [History Last Taken Unknown] pantoprazole 20 mg PO DAILY 11/21/20 [History Last Taken Unknown] benzonatate 200 mg PO BID PRN #20 cap 11/30/20 [Rx Last Taken Unknown] citalopram 40 mg PO DAILY 01/10/21 [History Last Taken Unknown] hydroxyzine HCl [Atarax] 25 mg PO QHS 01/10/21 [History Last Taken Unknown] metoprolol tartrate 25 mg PO DAILY 01/10/21 [History Last Taken Unknown] oxycodone-acetaminophen [Percocet] 1 tab PO Q6H PRN 01/10/21 [History Last Taken Unknown] Allergy/AdvReac Type Severity Reaction Status Date / Time penicillin V potassium Allergy Mild Rash Verified 01/12/21 22:55 [From Pen-Vee K] brompheniramine maleate Allergy Shortness Verified 01/12/21 22:55 [From Dimetapp of breath (brompheniramine-PPA)] celery Allergy Swelling Verified 01/12/21 22:55 phenylpropanolamine HCl Allergy Shortness Verified 01/12/21 22:55 [From Dimetapp of breath (brompheniramine-PPA)] amoxicillin trihydrate AdvReac Intermediate Diarrhea Verified 01/12/21 22:55 [From Augmentin] potassium clavulanate AdvReac Intermediate Diarrhea Verified 01/12/21 22:55 [From Augmentin] dicyclomine HCl [From Bentyl] AdvReac Nausea/Vom/ Verified 01/12/21 22:55 Diarrhea plastic tape Allergy Rash Uncoded 01/12/21 22:55 FRUCTOSE AdvReac Nausea/Vom/ Uncoded 01/12/21 22:55 Diarrhea Family History Father Diabetes Mother Hypertension Grandmother Breast cancer 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 H/O endoscopy H/O oophorectomy H/O ovarian cystectomy H/O wisdom tooth extraction History of tonsillectomy and adenoidectomy Hx of cholecystectomy Social History Smoking Status: Never smoker alcohol intake: current alcohol intake frequency: a few times a month substance use type: does not use seatbelt use: always do you feel safe at home: Yes ROS ROS ED Constitutional Constitutional ED: Denies chills, fever(s) or sweats Eyes Eyes: Denies blurry vision or change in vision ENT ENT ED: Denies sore throat Cardiovascular Cardiovascular: Denies chest pain or palpitations Respiratory/Chest Respiratory/Chest: Denies dyspnea or sputum Gastrointestinal Gastrointestinal: Reports other Details: No incontinence. ; Denies abdominal pain, constipation, diarrhea, melena, nausea or vomiting Genitourinary Genitourinary ED: Reports other Details: No incontinence or urinary retention symptoms ; Denies dysuria or hematuria Musculoskeletal Musculoskeletal: Reports back pain Integumentary Denies rash Neurologic Neurologic: Reports other Details: Pain radiates down the left leg but no weakness or numbness or paresthesias. ; Denies headache(s), paresthesias or weakness Psychiatric Psychiatric: Reports anxiety and depression Hematologic/Lymphatic Hematologic/Lymphatic: Denies easy bleeding or easy bruising Allergic/Immunologic Allergic/Immunologic ED: Denies urticaria EXAM Physical Exam Const Vital Signs: 01/12/21 22:53 01/13/21 00:22 Temperature 97.9 F Temperature Source Temporal Pulse Rate 94 89 Respiratory Rate 18 18 Blood Pressure 152/89 H 132/72 H Blood Pressure Mean 110 Pulse Ox 97 99 Oxygen Delivery Method Room Air Positive well nourished, well developed and obese General Appearance ED: well developed and NAD Nutritional Appearance: obese HEENT Negative for trauma Eyes PERRL Resp normal respiratory effort and clear to auscultation bilaterally Cardio regular rate and regular rhythm GI normal to inspection, nondistended, normoactive bowel sounds, soft to palpation and non-tender Back/Spine normal to inspection Back/Spine Narrative: Patient has tenderness mostly over the very low left lumbar and left sciatic and left buttock area. With mother in the room we did press in the perirectal perineal area and there is no sensory change or loss. She has normal sensation and strength distally. She is able to walk and bear weight. Extremity normal to inspection General Extremety ED: Negative for edema or tenderness General Extremity: Negative for edema Psych mental status grossly normal Skin no rashes or lesions noted MDM MDM MDM Narrative Medical decision making narrative: I reviewed her recent MRI and visits. I explained to the patient that there is very little I can do to really resolve her symptoms but I am more than happy to try to help her. She is already on long-term narcotics. I cannot prescribe further meds for this. She also takes Motrin. I will give her a short dose of dexamethasone to boost her initial steroid treatment. I will give her a dose of Dilaudid to try to calm this down today. If she develops urinary retention incontinence, stool incontinence, numbness or weakness or other changes she may need to come back. At this point, there is no indication of acute cord compromise. Discharge Plan Triage Chief Complaint: Back ED Provider: Kiran Doshi Dx/Rx/DC Orders Clinical Impression: Lumbar radiculopathy, Back pain Instructions: ED Back Pain (Acute or Chronic) Prescriptions: No Action bupropion HCl [Wellbutrin XL] 300 mg tablet extended release 24 hr 300 mg PO QAM RF: 0 metformin 1,000 MG tablet 1,000 mg PO DAILY RF: 0 ferrous sulfate 325 MG tablet 1 tab PO DAILY RF: 0 cholecalciferol (vitamin D3) 125 MCG capsule 125 mcg PO DAILY RF: 0 epinephrine 0.3 MG syringe 0.3 mg IM X1 PRN (Reason: Anaphylaxis) Qty: 1 RF: 0 sitagliptin 100 MG tablet 100 mg PO DAILY RF: 0 Fenofibrate 48 mg PO DAILY RF: 0 gabapentin 100 MG capsule 100 mg PO DAILY RF: 0 sucralfate 1 GM tablet 1 gm PO BID RF: 0 ondansetron 4 MG tablet 4 mg PO Q8H PRN PRN (Reason: Nausea) Qty: 10 RF: 0 metoclopramide HCl [Reglan] 10 mg tablet 10 mg PO Q6H PRN (Reason: nausea and vomiting) Qty: 20 RF: 0 lidocaine HCl [Lidocaine Viscous] 2 % solution 15 ml mucous membrane Q8H PRN (Reason: pain) Qty: 100 RF: 0 fexofenadine [Lorrie] 180 mg Tablet 180 mg PO DAILY RF: 0 pantoprazole 20 mg Tablet,Delayed Release (Dr/Ec) 20 mg PO DAILY RF: 0 benzonatate 200 mg capsule 200 mg PO BID PRN (Reason: cough) Qty: 20 RF: 0 oxycodone-acetaminophen [Percocet] 5-325 mg Tablet 1 tab PO Q6H PRN (Reason: Pain) RF: 0 metoprolol tartrate 25 mg Tablet 25 mg PO DAILY RF: 0 citalopram 40 mg Tablet 40 mg PO DAILY RF: 0 hydroxyzine HCl [Atarax] 25 mg Tablet 25 mg PO QHS RF: 0 Primary Care Provider: Miguelito Unger Referrals: Miguelito Unger MD [Primary Care Provider] - 3-5 Days if not improving Disposition Disposition: Home, Self Care Discharge Date/Time: 01/13/21 00:25
[2021-01-12] MEDS: dexAMETHasone 10 MG/ML Vial IM (23:48)
[2021-01-12] MEDS: HYDROmorphone 1 MG/ML Syringe IM (23:50)
[2021-01-13 00:22] VITALS: BP 132/72; PULSE 89; RESP 18; O2SAT 99
== END 2021-01-13 00:25 | disposition home or self-care (01) ==
PROVIDERS: Emergency Provider Emergency Medicine; PCP Family Medicine
DX: M54.16 Radiculopathy, lumbar region (principal); M54.9 Dorsalgia, unspecified; E66.9 Obesity, unspecified; K21.9 Gastro-esophageal reflux disease without esophagitis; E11.9 Type 2 diabetes mellitus without complications; Z79.84 Long term (current) use of oral hypoglycemic drugs; Z79.899 Other long term (current) drug therapy
CPT/HCPCS: 96372; 99282

== ENCOUNTER 2021-01-16 15:07 | Emergency (ER) | payer BC, MEDICAID, SELFPAY ==
[2021-01-16 15:08] VITALS: BP 140/84; PULSE 112; RESP 18; TEMP 36.1; O2SAT 97; BMI 66.1
--- NOTE | 2021-01-16 15:48 | EDS_ITS ---
HPI History of Present Illness Chief Complaint: General Illness Narrative Narrative: 25-year-old female with history of lumbar back pain with an acute exacerbation. Patient was seen by her explosive ordnance disposal specialist, Dr. Mckenna, who did order an MRI which showed bulging disks diffusely of the lumbar spine. Essentially this MRI was unchanged. He does plan to do surgery with what sounds like a lumbar laminectomy on the . Patient was recently seen on the after her MRI and has been on Percocet through her pain management doctor which is now scheduled for 5 325 mg 3 times daily. Patient states that yesterday she had loss of bladder and bowel control. She states she was sitting in her own urine and did not know that she had urinated. Today she has control of her bladder and bowel. She denies fever or chills. She states that she has had no new injury. Patient states that she called Dr. Mckenna's office today and was sent to the ER for an evaluation. [facility] Medical History (Updated 01/16/21 @ 17:[address] Eliseo Prather, DO) Asthma Cancer Abner's disease Diabetes GERD (gastroesophageal reflux disease) Obesity Ovarian cyst PCOS (polycystic ovarian syndrome) Home Medications metformin 1,000 mg PO DAILY 06/25/18 [History Last Taken 05/17/19] ferrous sulfate 1 tab PO DAILY 05/16/19 [History Last Taken 05/17/19] cholecalciferol (vitamin D3) 125 mcg PO DAILY 05/17/19 [History Last Taken 05/17/19] epinephrine 0.3 mg IM X1 PRN #1 syringe 05/14/20 [Rx Last Taken Unknown] bupropion HCl 300 mg 24 hr tablet, extended release 300 mg PO QAM 07/14/20 [History Last Taken Unknown] Fenofibrate 48 mg PO DAILY 07/23/20 [History Last Taken Unknown] sitagliptin 100 mg PO DAILY 07/23/20 [History Last Taken Unknown] gabapentin 100 mg PO DAILY 08/19/20 [History Last Taken Unknown] sucralfate 1 gm PO BID 09/20/20 [History Last Taken Unknown] ondansetron 4 mg PO Q8H PRN PRN #10 tablet 09/28/20 [Rx Last Taken Unknown] lidocaine HCl [Lidocaine Viscous] 15 ml MUCOUS MEMBRANE Q8H PRN #100 ml 10/04/20 [Rx Last Taken Unknown] metoclopramide HCl [Reglan] 10 mg PO Q6H PRN #20 tab 10/04/20 [Rx Last Taken Unknown] fexofenadine [Lorrie] 180 mg PO DAILY 11/21/20 [History Last Taken Unknown] pantoprazole 20 mg PO DAILY 11/21/20 [History Last Taken Unknown] benzonatate 200 mg PO BID PRN #20 cap 11/30/20 [Rx Last Taken Unknown] citalopram 40 mg PO DAILY 01/10/21 [History Last Taken Unknown] hydroxyzine HCl [Atarax] 25 mg PO QHS 01/10/21 [History Last Taken Unknown] metoprolol tartrate 25 mg PO DAILY 01/10/21 [History Last Taken Unknown] oxycodone-acetaminophen [Percocet] 1 tab PO Q6H PRN 01/10/21 [History Last Taken Unknown] Allergy/AdvReac Type Severity Reaction Status Date / Time penicillin V potassium Allergy Mild Rash Verified 01/16/21 15:11 [From Pen-Vee K] brompheniramine maleate Allergy Shortness Verified 01/16/21 15:11 [From Dimetapp of breath (brompheniramine-PPA)] celery Allergy Swelling Verified 01/16/21 15:11 phenylpropanolamine HCl Allergy Shortness Verified 01/16/21 15:11 [From Dimetapp of breath (brompheniramine-PPA)] amoxicillin trihydrate AdvReac Intermediate Diarrhea Verified 01/16/21 15:11 [From Augmentin] potassium clavulanate AdvReac Intermediate Diarrhea Verified 01/16/21 15:11 [From Augmentin] dicyclomine HCl [From Bentyl] AdvReac Nausea/Vom/ Verified 01/16/21 15:11 Diarrhea plastic tape Allergy Rash Uncoded 01/16/21 15:11 FRUCTOSE AdvReac Nausea/Vom/ Uncoded 01/16/21 15:11 Diarrhea Family History Father Diabetes Mother Hypertension Grandmother Breast cancer 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 (Updated 01/16/21 @ 16:14 by Jovon Carnes) H/O endoscopy H/O oophorectomy H/O ovarian cystectomy H/O wisdom tooth extraction History of adrenal surgery History of tonsillectomy and adenoidectomy Hx of cholecystectomy Social History Smoking Status: Never smoker alcohol intake: current alcohol intake frequency: a few times a month substance use type: does not use seatbelt use: always do you feel safe at home: Yes ROS ROS ED Constitutional Constitutional ED: Denies chills, fever(s) or sweats Eyes Eyes: Denies blurry vision or change in vision ENT ENT ED: Denies rhinorrhea or sore throat Cardiovascular Cardiovascular: Denies chest pain or palpitations Respiratory/Chest Respiratory/Chest: Denies cough, dyspnea or sputum Gastrointestinal Gastrointestinal: Denies abdominal pain, nausea or vomiting Genitourinary Genitourinary ED: Denies dysuria or hematuria Musculoskeletal Musculoskeletal: Reports back pain Integumentary Denies abscess or rash Neurologic Neurologic: Reports paresthesias LLE Psychiatric Psychiatric: Denies anxiety or depression Endocrine Endocrinology: Denies polydipsia or polyuria EXAM Physical Exam Const Vital Signs: 01/16/21 15:08 01/16/21 17:33 Temperature 96.9 F L Temperature Source Temporal Pulse Rate 112 H 71 Respiratory Rate 18 16 Blood Pressure 140/84 H 124/66 H Blood Pressure Mean 102 Pulse Ox 97 98 Oxygen Delivery Method Room Air General Appearance ED: NAD HEENT Reports moist mucous membranes Negative for trauma Eyes PERRL and EOMs intact bilaterally Resp normal respiratory effort and clear to auscultation bilaterally Cardio regular rate and regular rhythm Narrative: Patient has normal rectal tone. Back/Spine Back/Spine Narrative: Generalized tenderness palpation of the lumbar paraspinal musculature. There is no obvious midline deformity or step-off. Neuro oriented x3 and CN's II-XII intact bilaterally Neuro Narrative: Slight decreased sensation in the left anterior thigh however perineal sensation is intact. Posterior thigh sensation is intact as well. Patient states that she has decreased sensation perirectally but has a normal rectal tone Sensorium / Orientation: alert Psych mental status grossly normal Skin no rashes or lesions noted and no wounds MDM MDM MDM Narrative Medical decision making narrative: Patient was given Dilaudid for pain. I did check a rectal exam and she has normal rectal tone. Postvoid residual is also normal. Patient states that she has not had any problems with bladder or bowel control today. I did check a urinalysis which is negative for infection. Patient was discussed with Dr. Mckenna who did not feel this represented cauda equina syndrome and I do agree. Her previous MRI essentially showed no changes from the one before that. This was performed on the fifth. Patient does have Percocet for home. Dr. Mckenna states that she is scheduled for laminectomy soon. He does not believe she needs emergent MRI based on exam findings and history. She is given strict return precautions if she has new or worsening symptoms. Patient stable discharge at this time. Impression: 1. Lumbar radiculopathy 2. Acute exacerbation of chronic back pain Lab Data Attestation: I reviewed the patient's lab results. Labs: Laboratory Results - last 24 hr 01/16/21 16:50 Urine Color Yellow Urine Clarity Clear Urine pH 6.5 Ur Specific [place] 1.015 Urine Protein Negative Urine Glucose (UA) 50 H Urine Ketones Negative Urine Occult Blood 10 H Urine Nitrite Negative Urine Bilirubin Negative Urine Urobilinogen Normal Ur Leukocyte Esterase 100 H Urine RBC 0 SEEN Urine WBC 0-5 SEEN Ur Squamous Epith Cells 0-5 SEEN Urine Bacteria 1+ Urine Mucus 0 SEEN Discharge Plan Triage Chief Complaint: General Illness ED Provider: Eliseo Prather Dx/Rx/DC Orders Clinical Impression: Lumbar radiculopathy Prescriptions: No Action bupropion HCl [Wellbutrin XL] 300 mg tablet extended release 24 hr 300 mg PO QAM RF: 0 metformin 1,000 MG tablet 1,000 mg PO DAILY RF: 0 ferrous sulfate 325 MG tablet 1 tab PO DAILY RF: 0 cholecalciferol (vitamin D3) 125 MCG capsule 125 mcg PO DAILY RF: 0 epinephrine 0.3 MG syringe 0.3 mg IM X1 PRN (Reason: Anaphylaxis) Qty: 1 RF: 0 sitagliptin 100 MG tablet 100 mg PO DAILY RF: 0 Fenofibrate 48 mg PO DAILY RF: 0 gabapentin 100 MG capsule 100 mg PO DAILY RF: 0 sucralfate 1 GM tablet 1 gm PO BID RF: 0 ondansetron 4 MG tablet 4 mg PO Q8H PRN PRN (Reason: Nausea) Qty: 10 RF: 0 metoclopramide HCl [Reglan] 10 mg tablet 10 mg PO Q6H PRN (Reason: nausea and vomiting) Qty: 20 RF: 0 lidocaine HCl [Lidocaine Viscous] 2 % solution 15 ml mucous membrane Q8H PRN (Reason: pain) Qty: 100 RF: 0 fexofenadine [Lorrie] 180 mg Tablet 180 mg PO DAILY RF: 0 pantoprazole 20 mg Tablet,Delayed Release (Dr/Ec) 20 mg PO DAILY RF: 0 benzonatate 200 mg capsule 200 mg PO BID PRN (Reason: cough) Qty: 20 RF: 0 oxycodone-acetaminophen [Percocet] 5-325 mg Tablet 1 tab PO Q6H PRN (Reason: Pain) RF: 0 metoprolol tartrate 25 mg Tablet 25 mg PO DAILY RF: 0 citalopram 40 mg Tablet 40 mg PO DAILY RF: 0 hydroxyzine HCl [Atarax] 25 mg Tablet 25 mg PO QHS RF: 0 Primary Care Provider: Miguelito Unger Referrals: Miguelito Unger MD [Primary Care Provider] - Miguelito Mckenna DO [STAFF PHYSICIAN] - As Needed Disposition Disposition: Home, Self Care Discharge Date/Time: 01/16/21 17:34
[2021-01-16] MEDS: HYDROmorphone 0.5 MG/0.5 ML SYRINGE IM (16:10)
--- NOTE | 2021-01-16 16:54 | ED.RN ---
pre void bladder scan amount 595ml, pt voided 425, post void scan showed 59ml
[2021-01-16 16:58] LABS: Mucous, Urine 0 SEEN /hpf (<or=2+); Red Blood Cells-Urine 0 SEEN /hpf (0-5)
[2021-01-16 17:01] LABS: Color, Urine Yellow (Yellow); Glucose, Dipstick 50 mg/dl (Normal); Ketone-Dipstick Negative (Negative); Leukocyte Esterase-Dipstick 100 /ul (Negative); Nitrite-Dipstick Negative (Negative); Occult Blood-Urine 10 /ul (Negative); Protein-Dipstick Negative (Negative); Specific Gravity, Urine 1.015 (1.002-1.030); Urine Bilirubin Dipstick Negative (Negative); Urine Clarity Clear (Clear); Urine Urobilinogen Normal (Normal); Urine pH 6.5 (5.0 - 8.0)
[2021-01-16] MEDS: oxyCODONE 5 MG Tablet PO (17:08)
[2021-01-16 17:22] LABS: Bacteria 1+ /hpf (None Seen); Squamous Epithelial Cells - UA 0-5 SEEN /hpf (5-10); White Blood Cells 0-5 SEEN /hpf (0-5)
[2021-01-16 17:33] VITALS: BP 124/66; PULSE 71; RESP 16; O2SAT 98
== END 2021-01-16 17:34 | disposition home or self-care (01) ==
PROVIDERS: Emergency Provider Student in an Organized Health Care Education/Training Program; PCP Family Medicine
DX: M54.16 Radiculopathy, lumbar region (principal); E11.9 Type 2 diabetes mellitus without complications; E24.9 Cushing's syndrome, unspecified; E28.2 Polycystic ovarian syndrome; E66.9 Obesity, unspecified; Z68.44 Body mass index [BMI] 60.0-69.9, adult; G89.29 Other chronic pain; K21.9 Gastro-esophageal reflux disease without esophagitis; J45.909 Unspecified asthma, uncomplicated; Z79.84 Long term (current) use of oral hypoglycemic drugs; Z79.899 Other long term (current) drug therapy
CPT/HCPCS: 81001; 96372; 99283

== ENCOUNTER 2021-01-16 21:42 | Emergency (ER) | payer BC, MEDICAID, SELFPAY ==
[2021-01-16 15:08] VITALS: BMI 66.1
[2021-01-16 21:44] VITALS: BP 150/93; PULSE 106; RESP 18; TEMP 36.1; O2SAT 99; BMI 66.1
[2021-01-16] MEDS: HYDROmorphone 0.5 MG/0.5 ML SYRINGE IM (23:19)
--- NOTE | 2021-01-16 23:21 | ED.VIS.BACK ---
HPI History of Present Illness Chief Complaint: Back Informant: patient and parent Onset/Context/Timing Onset: Weeks Context: Sudden Onset Chronic pain exacerbated by: Movement Timing: Continuous Quality: Dull and Aching Location: Lumbar, Buttock and Left Leg Current Severity: Mild Maximum Severity: Severe Worsened by: improves with Movement, Ambulation and Bending Relieved by: Nothing Associated Symptoms Associated Symptoms: Radiation to Left Leg; Negative for Numbness, Tingling, Radiation to Right Leg, Fever, Abdominal Pain, Dysuria, Unable to Ambulate, Unable to Transfer, Urinary Retention, Urinary Incontinence, Constipation and Fecal Incontinence Narrative Narrative: Patient is a morbidly obese female who presents with left lower back pain radiating down her left buttocks, posterior thigh and leg. She denies bowel bladder dysfunction. She denies saddle paresthesia or anesthesia. She denies foot drop. She denies buckling of her knees going up or down steps. She states she had a recent MRI. The MRI reveals a centrally herniated disc L5 5 S1 with compression of the left S1 nerve root. This is unchanged from prior. Patient denies any constitutional symptoms. She denies any urologic symptoms. She denies recent dental work. She denies history of SBE. She does have history of type 2 diabetes. Prior similar symptoms: Yes Recent Illness/[facility]: [facility] Medical History Asthma Cancer Abner's disease Diabetes GERD (gastroesophageal reflux disease) Obesity Ovarian cyst PCOS (polycystic ovarian syndrome) Home Medications metformin 1,000 mg PO DAILY 06/25/18 [History Last Taken 05/17/19] ferrous sulfate 1 tab PO DAILY 05/16/19 [History Last Taken 05/17/19] cholecalciferol (vitamin D3) 125 mcg PO DAILY 05/17/19 [History Last Taken 05/17/19] epinephrine 0.3 mg IM X1 PRN #1 syringe 05/14/20 [Rx Last Taken Unknown] bupropion HCl 300 mg 24 hr tablet, extended release 300 mg PO QAM 07/14/20 [History Last Taken Unknown] Fenofibrate 48 mg PO DAILY 07/23/20 [History Last Taken Unknown] sitagliptin 100 mg PO DAILY 07/23/20 [History Last Taken Unknown] gabapentin 100 mg PO DAILY 08/19/20 [History Last Taken Unknown] sucralfate 1 gm PO BID 09/20/20 [History Last Taken Unknown] ondansetron 4 mg PO Q8H PRN PRN #10 tablet 09/28/20 [Rx Last Taken Unknown] lidocaine HCl [Lidocaine Viscous] 15 ml MUCOUS MEMBRANE Q8H PRN #100 ml 10/04/20 [Rx Last Taken Unknown] metoclopramide HCl [Reglan] 10 mg PO Q6H PRN #20 tab 10/04/20 [Rx Last Taken Unknown] fexofenadine [Lorrie] 180 mg PO DAILY 11/21/20 [History Last Taken Unknown] pantoprazole 20 mg PO DAILY 11/21/20 [History Last Taken Unknown] benzonatate 200 mg PO BID PRN #20 cap 11/30/20 [Rx Last Taken Unknown] citalopram 40 mg PO DAILY 01/10/21 [History Last Taken Unknown] hydroxyzine HCl [Atarax] 25 mg PO QHS 01/10/21 [History Last Taken Unknown] metoprolol tartrate 25 mg PO DAILY 01/10/21 [History Last Taken Unknown] oxycodone-acetaminophen [Percocet] 1 tab PO Q6H PRN 01/10/21 [History Last Taken Unknown] Allergy/AdvReac Type Severity Reaction Status Date / Time penicillin V potassium Allergy Mild Rash Verified 01/16/21 15:11 [From Pen-Vee K] brompheniramine maleate Allergy Shortness Verified 01/16/21 15:11 [From Dimetapp of breath (brompheniramine-PPA)] celery Allergy Swelling Verified 01/16/21 15:11 phenylpropanolamine HCl Allergy Shortness Verified 01/16/21 15:11 [From Dimetapp of breath (brompheniramine-PPA)] amoxicillin trihydrate AdvReac Intermediate Diarrhea Verified 01/16/21 15:11 [From Augmentin] potassium clavulanate AdvReac Intermediate Diarrhea Verified 01/16/21 15:11 [From Augmentin] dicyclomine HCl [From Bentyl] AdvReac Nausea/Vom/ Verified 01/16/21 15:11 Diarrhea plastic tape Allergy Rash Uncoded 01/16/21 15:11 FRUCTOSE AdvReac Nausea/Vom/ Uncoded 01/16/21 15:11 Diarrhea Family History Father Diabetes Mother Hypertension Grandmother Breast cancer 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 H/O endoscopy H/O oophorectomy H/O ovarian cystectomy H/O wisdom tooth extraction History of adrenal surgery History of tonsillectomy and adenoidectomy Hx of cholecystectomy Social History (Updated 01/16/21 @ 23:[address] Ehsan Campbell MD) household members: family Smoking Status: Never smoker alcohol intake: current alcohol intake frequency: a few times a month substance use type: does not use seatbelt use: always do you feel safe at home: Yes ROS ROS ED Constitutional Constitutional ED: Denies chills, fever(s), subjective or sweats ENT ENT ED: Denies ear pain, rhinorrhea or sore throat Cardiovascular Cardiovascular: Denies chest pain, orthopnea or palpitations Respiratory/Chest Respiratory/Chest: Denies dyspnea, dyspnea on exertion or orthopnea Gastrointestinal Gastrointestinal: Denies abdominal pain, constipation, nausea or vomiting Genitourinary Genitourinary ED: Denies hematuria or urinary frequency Musculoskeletal Musculoskeletal: Reports back pain; Denies arthralgias, myalgias or neck pain Integumentary Denies rash Neurologic Neurologic: Denies paresthesias or weakness Hematologic/Lymphatic Hematologic/Lymphatic: Denies easy bleeding or easy bruising EXAM Physical Exam Const Vital Signs: 01/16/21 21:44 Temperature 97 F L Temperature Source Temporal Pulse Rate 106 H Respiratory Rate 18 Blood Pressure 150/93 H Blood Pressure Mean 112 Pulse Ox 99 Positive well nourished, well developed and obese General Appearance ED: well developed Nutritional Appearance: obese HEENT HEENT Narrative: Atraumatic normocephalic. Ears normal. Nares patent. Eyes PERRL and EOMs intact bilaterally General Eye ED: Negative for pale conjunctiva or scleral icterus Neck no lymphadenopathy Resp normal respiratory effort Cardio regular rate, regular rhythm, S1 normal heart sound, S2 normal heart sound and no murmurs GI normal to inspection, nondistended, normoactive bowel sounds and soft to palpation Back/Spine normal to inspection and no thoracic nor lumbar tenderness General Back: Negative for CVA tenderness Extremity normal to inspection and no clubbing, cyanosis or edema General Extremety ED: Negative for edema or tenderness General Extremity: Negative for edema Neuro oriented x3 and no sensory deficits noted Neuro Narrative: Straight leg test is negative on the right. Elevating the left leg 5 to 10 degrees causes her severe back pain. Sensorium / Orientation: alert Motor Exam: strength 5/5 throughout Deep Tendon Reflexes: Rt Patellar (L4): 1+, Lt Patellar (L4): 1+, Rt Ankle (S1): 1+ and Lt Ankle (S1): 1+ Deep Tendon Reflexes Back: Rt Patellar (L4): 1+, Lt Patellar (L4): 1+, Rt Ankle (S1): 1+ and Lt Ankle (S1): 1+ Plantar Reflex: Downgoing: bilateral Psych Mood & Affect: depressed Skin no rashes or lesions noted and no wounds MDM MDM MDM Narrative Medical decision making narrative: Patient has degenerative disc disease at multiple levels. There is an L5-S1 central herniated disc with mild compression of the L1 nerve root that is unchanged. Based on the history she does have sciatica. There are no objective findings. Therefore plan is to medicate and discharge to home and follow-up with pain management to control her pain and mother and patient were informed and understand that no prescriptions will be written for since this will violate her pain management contract. Discharge Plan Triage Chief Complaint: Back ED Provider: Ehsan Campbell Dx/Rx/DC Orders Clinical Impression: Chronic low back pain with sciatica Instructions: ED Sciatica Prescriptions: No Action bupropion HCl [Wellbutrin XL] 300 mg tablet extended release 24 hr 300 mg PO QAM RF: 0 metformin 1,000 MG tablet 1,000 mg PO DAILY RF: 0 ferrous sulfate 325 MG tablet 1 tab PO DAILY RF: 0 cholecalciferol (vitamin D3) 125 MCG capsule 125 mcg PO DAILY RF: 0 epinephrine 0.3 MG syringe 0.3 mg IM X1 PRN (Reason: Anaphylaxis) Qty: 1 RF: 0 sitagliptin 100 MG tablet 100 mg PO DAILY RF: 0 Fenofibrate 48 mg PO DAILY RF: 0 gabapentin 100 MG capsule 100 mg PO DAILY RF: 0 sucralfate 1 GM tablet 1 gm PO BID RF: 0 ondansetron 4 MG tablet 4 mg PO Q8H PRN PRN (Reason: Nausea) Qty: 10 RF: 0 metoclopramide HCl [Reglan] 10 mg tablet 10 mg PO Q6H PRN (Reason: nausea and vomiting) Qty: 20 RF: 0 lidocaine HCl [Lidocaine Viscous] 2 % solution 15 ml mucous membrane Q8H PRN (Reason: pain) Qty: 100 RF: 0 fexofenadine [Lorrie] 180 mg Tablet 180 mg PO DAILY RF: 0 pantoprazole 20 mg Tablet,Delayed Release (Dr/Ec) 20 mg PO DAILY RF: 0 benzonatate 200 mg capsule 200 mg PO BID PRN (Reason: cough) Qty: 20 RF: 0 oxycodone-acetaminophen [Percocet] 5-325 mg Tablet 1 tab PO Q6H PRN (Reason: Pain) RF: 0 metoprolol tartrate 25 mg Tablet 25 mg PO DAILY RF: 0 citalopram 40 mg Tablet 40 mg PO DAILY RF: 0 hydroxyzine HCl [Atarax] 25 mg Tablet 25 mg PO QHS RF: 0 Primary Care Provider: Miguelito Unger Referrals: Miguelito Unger MD [Primary Care Provider] - Activity Restrictions/Additional Instructions: 1. You need to contact pain management for control and management of your pain. The patch he that was applied to your skin will last for 72 hours 2. Reasons to come back are if you are unable to urinate, loss of bowel control or develop a foot drop Disposition Disposition: Home, Self Care
[2021-01-16] MEDS: fentaNYL 25 MCG Patch TD (23:23)
[2021-01-16 23:49] VITALS: BP 144/71; PULSE 88; RESP 18; O2SAT 98
== END 2021-01-16 23:52 | disposition home or self-care (01) ==
PROVIDERS: Emergency Provider Emergency Medicine; PCP Family Medicine
DX: M51.17 Intervertebral disc disorders with radiculopathy, lumbosacral region (principal); E66.01 Morbid (severe) obesity due to excess calories; Z68.44 Body mass index [BMI] 60.0-69.9, adult; E11.9 Type 2 diabetes mellitus without complications; E24.9 Cushing's syndrome, unspecified; E28.2 Polycystic ovarian syndrome; G89.29 Other chronic pain; J45.909 Unspecified asthma, uncomplicated; K21.9 Gastro-esophageal reflux disease without esophagitis; Z79.84 Long term (current) use of oral hypoglycemic drugs; Z79.899 Other long term (current) drug therapy
CPT/HCPCS: 96372; 99283

== ENCOUNTER 2021-01-31 05:54 | Day surgery (SDC) | payer BC, MEDICAID, SELFPAY ==
[2021-01-31] VITALS (10 sets, daily range): BP systolic 110–136; BP diastolic 48–77; PULSE 83–116; RESP 14–20; TEMP 36.5–36.8; O2SAT 20–100; BMI 65.9
[2021-01-31 06:36] LABS: Internal QC Validated? YES +Cl - CLEAR BKGD; Pregnancy, Urine Negative Negative
[2021-01-31 07:10] LABS: Bedside Glucose 174 mg/dL (70-110)
--- NOTE | 2021-01-31 07:16 | PCM.OPRPT ---
Problems Associated Problem List Diagnoses (1) Lumbar disc displacement without myelopathy: Report of Operation Date of Procedure: 01/31/21 Pre-Operative Diagnosis: 1. L5-S1 stenosis with spondylosis 2. L5-S1 herniated nucleus pulposus Post-Operative Diagnosis: 1. L5-S1 stenosis with spondylosis 2. L5-S1 herniated nucleus pulposus Surgery/Procedure Performed:: 1. L5 laminectomy decompression 2. Partial S1 laminectomy 3. L5-S1 discectomy 4. Bilateral L5-S1 foraminotomies Surgeon: Miguelito Mckenna credit control assistant: Dolores Peters Type of Anesthesia: General Specimen's removed: None Drains: None Estimated Blood Loss (mL): 75 Fluids Replaced: 1800 cc Description of Procedure: STATEMENT OF MEDICAL NECESSITY: The patient is a 25-year-old female with intractable back and leg pain. Image studies confirm the above diagnosis. She has failed conservative treatment to include: medicine, therapy, and injections. The patient opted for operative intervention, understanding the risks to include, but not limited to infection, bleeding, damage to nerves, arteries, and veins, possibility of spinal fluid leak, continued pain, need for further surgery, deep vein thrombosis, pulmonary embolism, heart attack, risk of stroke, or . DESCRIPTION OF PROCEDURE: The patient was identified in the preoperative holding area. There, she received the preoperative IV antibotics, clindamycin, and was then transferred to the operating suite. Once in the operating suite, after general endotracheal anesthesia was established, the patient was transferred to the [place] operating table in the prone position. All bony prominences were padded accordingly. The lumbar spine was prepped and draped in standard surgical fashion. A Midline incision was made and taken down to the lumbodorsal fascia. The fascia was divided and subperiosteal dissection taken down to the level of the bilateral L5-S1 facet joints. Deep retractors were placed. At this point a bone scalpel was used to make cuts in the bilateral lamina, then a series of rongeurs and Kerrisons were used to remove the lamina of L5 and part of the superior lamina of S1. The Kerrison was used in the bilateral foramen and bilateral foraminotomies were performed at L5-S1, decompressing the bilateral nerve roots. The nerve roots were identified on the right side and the nerve roots and dura were retracted medially. A large subligamentous disc herniation was identified. A knife was used to perform an annulotomy and a large subligamentous disc was removed using pituitaries, any loose fragments were identified and removed and the wound was irrigated. All bleeding was well controlled. Tissel was placed over the dura as a hemostatic agent. The fascia was closed with #1 Vicryl, subcutaneous with 2-0 Vicryl, skin was closed with 2-0 nylon. A sterile dressing was applied with 4 x 4, ABD, and tape. Sponge, instrument, and needle counts were correct at the end of the case. The patient was extubated, taken to PACU without incident. Dolores Peters PA-C, was present throughout the duration of the case and necessary for critical parts of the case including retraction and closure. Grafts/Implants Used: None Complications None Admit VTE Documentation VTE Present on Admission: No VTE Mechan Device Prophylaxis: SCD's and Knee High ANI Lacey
--- NOTE | 2021-01-31 07:16 | PCM.PN.ORT ---
Subjective Subjective The patient was seen and examined postoperatively in the PACU. She is complaining of some pain around the surgical site. She is also complaining of paresthesias and subjective weakness in the left lower extremity, consistent with preoperative exam. She denies any other complaints. Objective Data Objective Data Vital Signs: Vital Signs Temp Pulse Resp BP Pulse Ox 97.9 F 116 H 18 136/72 H 100 01/31/21 06:36 01/31/21 06:36 01/31/21 06:36 01/31/21 06:36 01/31/21 06:36 Oxygen Delivery Method Room Air Weight: 433 lb 6.861 oz Body Mass Index (BMI) 65.9 Lab / Micro Data Labs: Laboratory Results - last 24 hr 01/31/21 06:15: Urine Test Negative 01/31/21 06:27: POC Glucose 174 H Physical Exam Const alert, oriented x3 and no apparent distress General Appearance: cooperative Orientation / Consciousness: awake, oriented to person and oriented to place HEENT head/scalp atraumatic Eyes EOMs intact bilaterally and conjunctivae normal Resp normal respiratory effort and normal air movement Cardio regular rate and regular rhythm Peripheral Pulses: pulses 2+ throughout GI soft to palpation, non-tender and non-distended Back/Spine Back/Spine Narrative: Dressing clean dry and intact Cervical Spine: cervical ROM normal Thoracic Spine / Upper Back: normal to inspection Lumbar Spine / Lower Back: normal to inspection Extremity normal to inspection, normal capillary refill, no clubbing, cyanosis or edema and no calf tenderness Peripheral Pulses: Yes pulses 2+ throughout Skin General Skin Exam: no breakdown Neuro oriented x3, CN's II-XII intact bilaterally, moves all extremities and deep tendon reflexes 2+ bilaterally Neuro Narrative: Sensation and motor are intact grossly. Examination of the left lower extremity demonstrate areas of decreased sensation in the left lower extremity along the anterolateral thigh and leg below the knee, along with weakness in left EHL, and ankle dorsiflexion. Sensation and motor function consistent with preoperative examination. Otherwise, sensation and motor are intact grossly in the right lower extremity without focal deficits. Sensorium / Orientation: awake and alert Motor Exam: muscle tone normal throughout Assessment & Plan Assessment/Plan (1) Lumbar disc displacement without myelopathy: PLAN: Okay to discharge home See discharge instructions Activity restrictions include no repetitive bending twisting or lifting anything greater than 5 pounds Daily dressing changes with iodine gauze and tape Follow-up with Dr. Mckenna in 3 weeks Prescriptions for Percocet and Flexeril sent to pharmacy (2) Lumbar radiculopathy:
[2021-01-31] MEDS: Lactated Ringers 1,000 ML 100 ML IV (07:18)
--- NOTE | 2021-01-31 07:30 | RAD_ITS ---
INDICATION: L5-S1 LAMINOTOMY DISCECTOMY, POSS LAMINECTOMY, LEFT EXAMINATION/TECHNIQUE: X-RAY - XR Spine Lumbar 1 View COMPARISON: None. FINDINGS: Single intraoperative image provided for L5-S1 laminectomy. RAD/Spine 1 View Any Level IMPRESSION: Single intraoperative image provided for L5-S1 laminectomy. Refer to operative note for further details. Electronically Signed: Torito Jarrell MD at 16:53 EDT Tel , Service support ,
[2021-01-31 08:02] LABS: International Normalized Ratio 1.1; Prothrombin Time (Protime)PT. 13.1 SECONDS (11.7-14.9)
[2021-01-31 08:03] LABS: Partial Thromboplast Time 30.5 Seconds (24.1-36.2)
[2021-01-31] MEDS: THROMBIN (RECOMBINANT) 20,000 UNIT VIAL 20000 UNIT TOPICAL (08:34)
[2021-01-31 11:35] LABS: Bedside Glucose 199 mg/dL (70-110)
[2021-01-31] MEDS: Ipratropium/Albuterol Sulfate 3 ML AMPUL.NEB INHALATION (12:00)
[2021-01-31] MEDS: oxyCODONE 5 MG Tablet PO (12:46)
== END 2021-01-31 13:51 | disposition home or self-care (01) ==
LOC: SDC 05:55 → AC 06:05
PROVIDERS: Anesthesiology; PCP Family Medicine; Referring Provider Orthopaedic Surgery; Visit Provider Orthopaedic Surgery
PROC: (CPT 63030; principal; 2021-01-31 07:00)
DX: M48.07 Spinal stenosis, lumbosacral region (principal); M47.26 Other spondylosis with radiculopathy, lumbar region; M51.27 Other intervertebral disc displacement, lumbosacral region; M51.16 Intervertebral disc disorders with radiculopathy, lumbar region; F41.9 Anxiety disorder, unspecified; J45.909 Unspecified asthma, uncomplicated; K21.9 Gastro-esophageal reflux disease without esophagitis; E66.9 Obesity, unspecified; F32.9 Major depressive disorder, single episode, unspecified; E24.0 Pituitary-dependent Cushing's disease; D64.9 Anemia, unspecified; C80.1 Malignant (primary) neoplasm, unspecified; Z79.899 Other long term (current) drug therapy; Z79.84 Long term (current) use of oral hypoglycemic drugs; Z68.44 Body mass index [BMI] 60.0-69.9, adult; E66.01 Morbid (severe) obesity due to excess calories
CPT/HCPCS: 00670; 63047; 36415; 72020; 76000; 81025; 82962; 85610; 85730; 94640; J7120; J2405

== ENCOUNTER 2021-02-01 17:19 | Emergency (ER) | payer BC, MEDICAID, SELFPAY ==
[2021-02-01 17:20] VITALS: BP 156/96; PULSE 123; RESP 19; TEMP 36.7; O2SAT 97; BMI 65.3
[2021-02-01] MEDS: morphine 10 MG/ML Syringe IM (18:56)
--- NOTE | 2021-02-01 20:18 | ED.VIS.BACK ---
HPI History of Present Illness Chief Complaint: Back Narrative Narrative: Patient presenting for evaluation secondary to postoperative back pain. Patient has a history of being 1 day postop from a lumbar decompression and laminectomy from Dr. Mckenna. Patient states that since discharge yesterday she has had increased low back pain. Chronically the patient has left leg numbness and weakness, she states that that seems somewhat worse. She denies currently that she is having any sort of bowel or bladder incontinence. She denies any fevers. Patient has been taking her oral pain medications at home, was not able to obtain pain relief so she was informed to come to the emergency department for pain control. Review of systems otherwise negative. [facility] Medical History Anemia Anxiety Arthritis Asthma Cancer Cancer Cardiology follow-up encounter Abner's disease Depression Diabetes Dietary restriction Gastric reflux GERD (gastroesophageal reflux disease) Herniated disc History of echocardiogram History of irregular heartbeat History of pain when walking History of steroid therapy Injury of back Injury of head and neck Kidney stones Non-smoker Obesity Ovarian cyst PCOS (polycystic ovarian syndrome) Walker as ambulation aid Home Medications metformin 1,000 mg PO BID 06/25/18 [History Last Taken 01/30/21 08:00] ferrous sulfate 1 tab PO DAILY 05/16/19 [History Last Taken 01/24/21 08:00] cholecalciferol (vitamin D3) 125 mcg PO DAILY 05/17/19 [History Last Taken 01/24/21 08:00] epinephrine 0.3 mg IM X1 PRN #1 syringe 05/14/20 [Rx Last Taken 01/30/21 08:00] bupropion HCl 300 mg 24 hr tablet, extended release 300 mg PO QAM 07/14/20 [History Last Taken 01/30/21 08:00] Fenofibrate 48 mg PO DAILY 07/23/20 [History Last Taken 01/30/21 08:00] sitagliptin 100 mg PO DAILY 07/23/20 [History Last Taken 01/30/21 08:00] gabapentin 100 mg PO DAILY 08/19/20 [History Last Taken 01/30/21 08:00] sucralfate 1 gm PO BID 09/20/20 [History Last Taken 01/30/21 08:00] ondansetron 4 mg PO Q8H PRN PRN #10 tablet 09/28/20 [Rx Last Taken 01/30/21 08:00] lidocaine HCl [Lidocaine Viscous] 15 ml MUCOUS MEMBRANE Q8H PRN #100 ml 10/04/20 [Rx Last Taken 01/30/21 08:00] metoclopramide HCl [Reglan] 10 mg PO Q6H PRN #20 tab 10/04/20 [Rx Last Taken 01/30/21 08:00] fexofenadine 180 mg PO DAILY 11/21/20 [History Last Taken 01/30/21 08:00] pantoprazole 20 mg PO BID 11/21/20 [History Last Taken 01/30/21 08:00] benzonatate 200 mg PO BID PRN #20 cap 11/30/20 [Rx Last Taken 01/30/21 08:00] citalopram 40 mg PO DAILY 01/10/21 [History Last Taken 01/30/21 08:00] hydroxyzine HCl 25 mg PO QHS 01/10/21 [History Last Taken 01/30/21 08:00] metoprolol tartrate 25 mg PO DAILY 01/10/21 [History Last Taken 01/30/21 08:00] oxycodone-acetaminophen [Percocet] 1 tab PO Q6H PRN 01/10/21 [History Last Taken 01/30/21 08:00] albuterol sulfate 1 puff INHALATION PRN PRN 01/25/21 [History Last Taken 01/30/21 08:00] albuterol sulfate 2.5 mg INHALATION PRN PRN 01/25/21 [History Last Taken 01/30/21 08:00] dextroamphetamine-amphetamine 20 mg PO DAILY 01/25/21 [History Last Taken 01/30/21 08:00] glimepiride 2 mg PO DAILY 01/25/21 [History Last Taken 01/30/21 08:00] lisinopril 5 mg PO DAILY 01/25/21 [History Last Taken 01/30/21 08:00] cyclobenzaprine 10 mg PO TID PRN 21 Days #30 tab 01/31/21 [Rx Last Taken Unknown] oxycodone 5 mg PO Q6H PRN 7 Days #28 cap 01/31/21 [Rx Last Taken Unknown] Allergy/AdvReac Type Severity Reaction Status Date / Time penicillin V potassium Allergy Mild Rash Verified 02/01/21 17:22 [From Pen-Vee K] brompheniramine maleate Allergy Shortness Verified 02/01/21 17:22 [From Dimetapp of breath (brompheniramine-PPA)] celery Allergy Swelling Verified 02/01/21 17:22 phenylpropanolamine HCl Allergy Shortness Verified 02/01/21 17:22 [From Dimetapp of breath (brompheniramine-PPA)] amoxicillin trihydrate AdvReac Intermediate Diarrhea Verified 02/01/21 17:22 [From Augmentin] potassium clavulanate AdvReac Intermediate Diarrhea Verified 02/01/21 17:22 [From Augmentin] dicyclomine HCl [From Bentyl] AdvReac Nausea/Vom/ Verified 02/01/21 17:22 Diarrhea plastic tape Allergy Rash Uncoded 02/01/21 17:22 FRUCTOSE AdvReac Nausea/Vom/ Uncoded 02/01/21 17:22 Diarrhea Family History Father Diabetes Mother Hypertension Grandmother Breast cancer 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 H/O endoscopy H/O oophorectomy H/O ovarian cystectomy H/O wisdom tooth extraction History of adrenal surgery History of tonsillectomy and adenoidectomy Hx of cholecystectomy Social History household members: family Smoking Status: Never smoker alcohol intake: current alcohol intake frequency: a few times a month substance use type: does not use seatbelt use: always do you feel safe at home: Yes ROS ROS ED Constitutional Constitutional ED: Reports other Details: Denies recent surgeries, or injections ; Denies chills, fever(s), sweats or weight loss Cardiovascular Cardiovascular: Denies chest pain Respiratory/Chest Respiratory/Chest: Denies dyspnea Gastrointestinal Gastrointestinal: Reports other Details: Denies Bowel Incontinence ; Denies abdominal pain Genitourinary Genitourinary ED: Reports other Details: Denies Bladder Incontinence Musculoskeletal Musculoskeletal: Reports back pain Integumentary Denies rash Neurologic Neurologic: Reports paresthesias and weakness Psychiatric Psychiatric: Reports other Details: Denies history of IV Drug abuse Hematologic/Lymphatic Hematologic/Lymphatic: Denies lymphadenopathy EXAM Physical Exam Const Vital Signs: 02/01/21 17:20 Temperature 98.1 F Temperature Source Temporal Pulse Rate 123 H Respiratory Rate 19 H Blood Pressure 156/96 H Blood Pressure Mean 116 Pulse Ox 97 Oxygen Delivery Method Room Air Positive well nourished, well developed and obese Constitutional Narrative: Morbidly obese female lying in the prone position no acute distress General Appearance ED: well developed Nutritional Appearance: obese HEENT Reports normocephalic and head/scalp atraumatic Eyes EOMs intact bilaterally Neck supple Resp normal respiratory effort and clear to auscultation bilaterally Cardio regular rate, regular rhythm and no murmurs Bruits: other Other Details: 2+ Radial Pulses 2+ DP Pulses 2+ PT Pulses Peripheral Pulses: radial pulses present, posterior tibial pulses present and dorsalis pedis pulses present GI normal to inspection, nondistended, normoactive bowel sounds, soft to palpation and non-tender Palpation: Negative for pulsatile mass Back/Spine Back/Spine Narrative: Patient has a surgical incision on the back that appears clean dry and intact, no signs of underlying hematoma or cellulitic changes. No drainage. Thoracic Spine / Upper Back: Negative for thoracic spinal tenderness Lumbar Spine / Lower Back: Negative for lumbar spinal tenderness Extremity normal to inspection Neuro oriented x3 Neuro Narrative: Patient complains of numbness of the thigh and the left leg. And she does have decreased sensation in that area. She also complains of decreased sensation of her buttocks and saddle region. Patient has some weakness of the left leg in terms of dorsiflexion, plantarflexion, EHL, knee flexion and extension. This is 4 out of 5. Sensorium / Orientation: alert Sensory Exam: other Plantar Reflex: Other: bilateral (No pathologic clonus) Psych mental status grossly normal Skin no rashes or lesions noted Trauma: other No petechiae MDM MDM MDM Narrative Medical decision making narrative: Patient presented with postoperative back pain. She does have some abnormal neurologic findings. I discussed patient's case with her surgeon, Dr. Mckenna, and he informed me that the patient's neurologic findings are chronic and were present prior to the operation. Would seem unlikely that the patient has an expanding hematoma at this point I do not think that emergent neuroimaging is indicated. Patient is otherwise nontoxic, do not think that this is infectious. It is rather more of a pain control type issue, the patient does have a history of multiple visits for pain control in the past. Patient was given IM morphine, repeat evaluation of the patient at 2019 shows her to be laying in the left lateral decubitus position with significant improvement of her pain. After discussion with spine surgery the patient's gabapentin will be increased. She was recommended to titrate up to 300 mg 3 times a day. Patient will follow up with spine surgery. Discharge Plan Triage Chief Complaint: Back ED Provider: David Mix Dx/Rx/DC Orders Clinical Impression: Back pain Instructions: ED Back Pain (Acute or Chronic) Prescriptions: No Action bupropion HCl [Wellbutrin XL] 300 mg tablet extended release 24 hr 300 mg PO QAM RF: 0 metformin 1,000 MG tablet 1,000 mg PO BID RF: 0 ferrous sulfate 325 MG tablet 1 tab PO DAILY RF: 0 cholecalciferol (vitamin D3) 125 MCG capsule 125 mcg PO DAILY RF: 0 epinephrine 0.3 MG syringe 0.3 mg IM X1 PRN (Reason: Anaphylaxis) Qty: 1 RF: 0 sitagliptin 100 MG tablet 100 mg PO DAILY RF: 0 Fenofibrate 48 mg PO DAILY RF: 0 gabapentin 100 MG capsule 100 mg PO DAILY RF: 0 sucralfate 1 GM tablet 1 gm PO BID RF: 0 ondansetron 4 MG tablet 4 mg PO Q8H PRN PRN (Reason: Nausea) Qty: 10 RF: 0 metoclopramide HCl [Reglan] 10 mg tablet 10 mg PO Q6H PRN (Reason: nausea and vomiting) Qty: 20 RF: 0 lidocaine HCl [Lidocaine Viscous] 2 % solution 15 ml mucous membrane Q8H PRN (Reason: pain) Qty: 100 RF: 0 fexofenadine 180 mg Tablet 180 mg PO DAILY RF: 0 pantoprazole 20 mg Tablet,Delayed Release (Dr/Ec) 20 mg PO BID RF: 0 benzonatate 200 mg capsule 200 mg PO BID PRN (Reason: cough) Qty: 20 RF: 0 albuterol sulfate 2.5 mg /3 mL (0.083 %) solution for nebulization 2.5 mg inhalation PRN PRN (Reason: ASTHMA) RF: 0 glimepiride 2 mg tablet 2 mg PO DAILY RF: 0 dextroamphetamine-amphetamine 20 mg capsule,extended release 24hr 20 mg PO DAILY RF: 0 lisinopril 5 mg tablet 5 mg PO DAILY RF: 0 albuterol sulfate 90 mcg/actuation HFA aerosol inhaler 1 puff INHALATION PRN PRN (Reason: ASTHMA) RF: 0 oxycodone 5 mg capsule 5 mg PO Q6H PRN (Reason: pain) 7 Days Qty: 28 RF: 0 cyclobenzaprine 10 mg tablet 10 mg PO TID PRN (Reason: muscle spasm) 21 Days Qty: 30 RF: 0 oxycodone-acetaminophen [Percocet] 5-325 mg Tablet 1 tab PO Q6H PRN (Reason: Pain) RF: 0 metoprolol tartrate 25 mg Tablet 25 mg PO DAILY RF: 0 citalopram 40 mg Tablet 40 mg PO DAILY RF: 0 hydroxyzine HCl 25 mg Tablet 25 mg PO QHS RF: 0 Primary Care Provider: Miguelito Unger Referrals: Miguelito Unger MD [Primary Care Provider] - Miguelito Mckenna DO [STAFF PHYSICIAN] - As Needed Activity Restrictions/Additional Instructions: Titrate up your dose of gabapentin. Tomorrow you can take 300 mg twice daily, and the following day you can take 300 mg 3 times daily. Continue this thereon after. Follow-up with your surgeon. Disposition Disposition: Home, Self Care
[2021-02-01] MEDS: oxyCODONE 5 MG Tablet PO (20:39)
[2021-02-01 20:44] VITALS: RESP 17
== END 2021-02-01 20:46 | disposition home or self-care (01) ==
PROVIDERS: Emergency Provider Emergency Medicine; PCP Family Medicine
DX: M54.5 Low back pain (principal); E66.9 Obesity, unspecified; J45.909 Unspecified asthma, uncomplicated; K21.9 Gastro-esophageal reflux disease without esophagitis; E11.9 Type 2 diabetes mellitus without complications; F32.9 Major depressive disorder, single episode, unspecified; Z79.899 Other long term (current) drug therapy
CPT/HCPCS: 96372; 99283

== ENCOUNTER 2021-02-08 16:57 | Emergency (ER) | payer BC, MEDICAID, SELFPAY ==
[2021-02-08 16:58] VITALS: BP 125/58; PULSE 100; RESP 18; TEMP 36.5; O2SAT 97; BMI 67.2
[2021-02-08 18:10] LABS: Absolute Lymphocyte Count 3.36 X10^3/uL (0.83-4.51); Absolute Neutrophil Count 9.9 X10^3/uL (2.0-7.7); Basophil# 0.06 X10^3/uL; Basophil% 0.4 % (0-1); Eosinophil# 0.44 X10^3/uL; Hematocrit 35.3 % (37-47); Hemoglobin 11.2 g/dL (12.0-15.0); Lymphocyte # 3.36 X10^3/ul (0.83-4.51); Lymphocyte % 22.8 % (19-41); Mean Corp Hgb Conc 31.7 g/dL (32-36); Mean Corpuscular Hgb 25.2 pg (27.0-32.0); Mean Corpuscular Volume 79.5 fL (81-99); Mean Platelet Vol. 9.7 fl (6.2-12.0); Monocyte# 0.83 X10^3/uL; Monocyte% 5.6 % (0-10); NRBC Flagged by Analyzer 0 % (0-5); Neutrophil # 9.89 X10^3/uL (2.7-7.7); Neutrophil % 67.2 % (47-70); Platelet Count 479 K/mm3 (150-450); RBC Distribution Width CV 15.2 % (11.6-14.6); RBC Distribution Width SD 43.6 fl (35.1-43.9); Red Blood Count 4.44 M/mm3 (4.2-5.4); White Blood Count 14.7 K/mm3 (4.4-11.0)
[2021-02-08 18:23] LABS: Anion Gap 4 (5-15); BUN 9 mg/dL (7-18); BUN/Creat Ratio 15.6 RATIO (10-20); Calcium,Total 9.3 mg/dL (8.5-10.1); Chloride 104 mmol/L (98-107); Creatinine, Serum 0.58 mg/dL (0.55-1.02); EST Glomerular Filtration Rate 137 mL/min (>60); Est Glom Filt Rate - Afr Amer 166 mL/min (>60); Estimated Creatinine Clearance 152.18 ml/min; Glucose 169 mg/dL (74-106); Potassium 3.9 mmol/L (3.5-5.1); Sodium Level 135 mmol/L (136-145)
[2021-02-08 19:00] VITALS: RESP 16
--- NOTE | 2021-02-08 19:06 | EDS_ITS ---
HPI History of Present Illness Chief Complaint: Numb/Ting Informant: patient Onset/Context/Timing Onset: Today Context: Sudden Onset Timing: Intermittent Quality: Burning, numbness Location: Left lower face Worsened by: Nothing Relieved by: Sleeping Narrative Narrative: Patient presents with numbness and tingling all over her body that began today. Patient states it has been intermittent. Patient states she woke up like that today. Patient states that she was able to go back to sleep and it went away. Patient states she woke up again and still felt some numbness and tingling. Patient states it lasted a few seconds and then went away. Patient states she was able to go back to sleep. Patient states when she woke up the third time it was there again. Patient states it lasted approximately 5 minutes. Currently, the patient complains of some tingling over the left side of her face over her cheek and lower jaw. Patient denies any weakness. Patient denies any difficulty swallowing. Patient denies any visual changes. Patient also reports that her gabapentin was increased recently. Patient also had recent low back surgery. Patient denies any fevers or chills. Patient does admit to some mild serous drainage from the wound. There is no purulent drainage. Mother states the patient's incision appears to be healing well. [facility] Medical History Anemia Anxiety Arthritis Asthma Cancer Cancer Cardiology follow-up encounter [place]'s disease Depression Diabetes Dietary restriction Gastric reflux GERD (gastroesophageal reflux disease) Herniated disc History of echocardiogram History of irregular heartbeat History of pain when walking History of steroid therapy Injury of back Injury of head and neck Kidney stones Non-smoker Obesity Ovarian cyst PCOS (polycystic ovarian syndrome) Walker as ambulation aid Home Medications metformin 1,000 mg PO BID 06/25/18 [History Last Taken 01/30/21 08:00] ferrous sulfate 1 tab PO DAILY 05/16/19 [History Last Taken 01/24/21 08:00] cholecalciferol (vitamin D3) 125 mcg PO DAILY 05/17/19 [History Last Taken 01/24/21 08:00] epinephrine 0.3 mg IM X1 PRN #1 syringe 05/14/20 [Rx Last Taken 01/30/21 08:00] bupropion HCl 300 mg 24 hr tablet, extended release 300 mg PO QAM 07/14/20 [History Last Taken 01/30/21 08:00] Fenofibrate 48 mg PO DAILY 07/23/20 [History Last Taken 01/30/21 08:00] sitagliptin 100 mg PO DAILY 07/23/20 [History Last Taken 01/30/21 08:00] gabapentin 300 mg PO BID 08/19/20 [History Last Taken 01/30/21 08:00] sucralfate 1 gm PO BID 09/20/20 [History Last Taken 01/30/21 08:00] ondansetron 4 mg PO Q8H PRN PRN #10 tablet 09/28/20 [Rx Last Taken 01/30/21 08:00] lidocaine HCl [Lidocaine Viscous] 15 ml MUCOUS MEMBRANE Q8H PRN #100 ml 10/04/20 [Rx Last Taken 01/30/21 08:00] metoclopramide HCl [Reglan] 10 mg PO Q6H PRN #20 tab 10/04/20 [Rx Last Taken 01/30/21 08:00] fexofenadine 180 mg PO DAILY 11/21/20 [History Last Taken 01/30/21 08:00] pantoprazole 20 mg PO BID 11/21/20 [History Last Taken 01/30/21 08:00] benzonatate 200 mg PO BID PRN #20 cap 11/30/20 [Rx Last Taken 01/30/21 08:00] citalopram 40 mg PO DAILY 01/10/21 [History Last Taken 01/30/21 08:00] hydroxyzine HCl 25 mg PO QHS 01/10/21 [History Last Taken 01/30/21 08:00] metoprolol tartrate 25 mg PO DAILY 01/10/21 [History Last Taken 01/30/21 08:00] oxycodone-acetaminophen [Percocet] 1 tab PO Q6H PRN 01/10/21 [History Last Taken 01/30/21 08:00] albuterol sulfate 1 puff INHALATION PRN PRN 01/25/21 [History Last Taken 01/30/21 08:00] albuterol sulfate 2.5 mg INHALATION PRN PRN 01/25/21 [History Last Taken 01/30/21 08:00] dextroamphetamine-amphetamine 20 mg PO DAILY 01/25/21 [History Last Taken 01/30/21 08:00] glimepiride 2 mg PO DAILY 01/25/21 [History Last Taken 01/30/21 08:00] lisinopril 5 mg PO DAILY 01/25/21 [History Last Taken 01/30/21 08:00] cyclobenzaprine 10 mg PO TID PRN 21 Days #30 tab 01/31/21 [Rx Last Taken Unknown] oxycodone 5 mg PO Q6H PRN 7 Days #28 cap 01/31/21 [Rx Last Taken Unknown] Allergy/AdvReac Type Severity Reaction Status Date / Time penicillin V potassium Allergy Mild Rash Verified 02/08/21 16:58 [From Pen-Vee K] brompheniramine maleate Allergy Shortness Verified 02/08/21 16:58 [From Dimetapp of breath (brompheniramine-PPA)] celery Allergy Swelling Verified 02/08/21 16:58 phenylpropanolamine HCl Allergy Shortness Verified 02/08/21 16:58 [From Dimetapp of breath (brompheniramine-PPA)] amoxicillin trihydrate AdvReac Intermediate Diarrhea Verified 02/08/21 16:58 [From Augmentin] potassium clavulanate AdvReac Intermediate Diarrhea Verified 02/08/21 16:58 [From Augmentin] dicyclomine HCl [From Bentyl] AdvReac Nausea/Vom/ Verified 02/08/21 16:58 Diarrhea plastic tape Allergy Rash Uncoded 02/08/21 16:58 FRUCTOSE AdvReac Nausea/Vom/ Uncoded 02/08/21 16:58 Diarrhea Family History Father Diabetes Mother Hypertension Grandmother Breast cancer 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 H/O endoscopy H/O oophorectomy H/O ovarian cystectomy H/O wisdom tooth extraction History of adrenal surgery History of tonsillectomy and adenoidectomy Hx of cholecystectomy Social History household members: family Smoking Status: Never smoker alcohol intake: current alcohol intake frequency: a few times a month substance use type: does not use seatbelt use: always do you feel safe at home: Yes ROS ROS ED Constitutional Constitutional ED: Denies chills or fever(s) Eyes Eyes: Denies blurry vision or change in vision ENT ENT ED: Denies rhinorrhea or sore throat Cardiovascular Cardiovascular: Denies chest pain or palpitations Respiratory/Chest Respiratory/Chest: Reports dyspnea; Denies cough Gastrointestinal Gastrointestinal: Reports nausea; Denies vomiting Genitourinary Genitourinary ED: Denies dysuria or hematuria Musculoskeletal Musculoskeletal: Reports back pain; Denies neck pain Integumentary Denies abscess or rash Neurologic Neurologic: Denies headache(s) or weakness Allergic/Immunologic Allergic/Immunologic ED: Denies mouth swelling or urticaria EXAM Physical Exam Const Vital Signs: 02/08/21 16:58 02/08/21 19:00 Temperature 97.7 F L Temperature Source Temporal Pulse Rate 100 Respiratory Rate 18 16 Blood Pressure 125/58 H Blood Pressure Mean 80 Pulse Ox 97 Oxygen Delivery Method Room Air Positive well nourished, well developed and obese General Appearance ED: well developed Nutritional Appearance: obese HEENT Reports moist mucous membranes Neck supple and no JVD Resp normal respiratory effort and clear to auscultation bilaterally Cardio regular rate, regular rhythm and no murmurs GI normal to inspection, nondistended, normoactive bowel sounds and non-tender Palpation: soft Back/Spine Back/Spine Narrative: There is a healing incision over the lower lumbar area. Sutures were in place. There is no purulent discharge or drainage. There is no surrounding erythema. Patient was able to sit up without difficulty. Extremity normal to inspection General Extremety ED: Negative for edema or tenderness General Extremity: Negative for edema Neuro oriented x3 and CN's II-XII intact bilaterally Neuro Narrative: Sensation was slightly diminished to light touch over the left cheek and left lower jaw. There is no facial asymmetry or facial weakness. Sensorium / Orientation: alert Motor Exam: strength 5/5 throughout Psych mental status grossly normal Skin no rashes or lesions noted MDM MDM MDM Narrative Medical decision making narrative: CBC shows a mild leukocytosis of 14.7. This is consistent with prior results. Basic metabolic profile was within normal limits. Patient is feeling better on reevaluation. Patient was instructed to follow-up with her primary care physician in 5 to 7 days. Patient understood and was agreeable with the plan. All questions were answered. Lab Data Attestation: I reviewed the patient's lab results. Labs: Laboratory Results - last 24 hr 02/08/21 02/08/21 17:52 17:52 WBC 14.7 H RBC 4.44 Hgb 11.2 L Hct 35.3 L MCV 79.5 L MCH 25.2 L MCHC 31.7 L RDW Std Deviation 43.6 RDW Coeff of Silvia 15.2 H Plt Count 479 H MPV 9.7 Immature Gran % (Auto) 1.000 H Neut % (Auto) 67.2 Lymph % (Auto) 22.8 [place] % (Auto) 5.6 Eos % (Auto) 3.0 Baso % (Auto) 0.4 Absolute Neuts (auto) 9.9 H Absolute Lymphs (auto) 3.36 Nucleated RBC % 0 Sodium 135 L Potassium 3.9 Chloride 104 Carbon Dioxide 27.0 Anion Gap 4 L BUN 9 Creatinine 0.58 Estim Creat Clear Calc 152.18 Est GFR (MDRD) Af Amer 166 Est GFR (MDRD) Non-Af 137 BUN/Creatinine Ratio 15.6 Glucose 169 H Calcium 9.3 Discharge Plan Triage Chief Complaint: Numb/Ting ED Provider: Gio Ceron Dx/Rx/DC Orders Clinical Impression: Facial paresthesia Instructions: ED Paraesthesias Prescriptions: No Action bupropion HCl [Wellbutrin XL] 300 mg tablet extended release 24 hr 300 mg PO QAM RF: 0 metformin 1,000 MG tablet 1,000 mg PO BID RF: 0 ferrous sulfate 325 MG tablet 1 tab PO DAILY RF: 0 cholecalciferol (vitamin D3) 125 MCG capsule 125 mcg PO DAILY RF: 0 epinephrine 0.3 MG syringe 0.3 mg IM X1 PRN (Reason: Anaphylaxis) Qty: 1 RF: 0 sitagliptin 100 MG tablet 100 mg PO DAILY RF: 0 Fenofibrate 48 mg PO DAILY RF: 0 gabapentin 100 MG capsule 300 mg PO BID RF: 0 sucralfate 1 GM tablet 1 gm PO BID RF: 0 ondansetron 4 MG tablet 4 mg PO Q8H PRN PRN (Reason: Nausea) Qty: 10 RF: 0 metoclopramide HCl [Reglan] 10 mg tablet 10 mg PO Q6H PRN (Reason: nausea and vomiting) Qty: 20 RF: 0 lidocaine HCl [Lidocaine Viscous] 2 % solution 15 ml mucous membrane Q8H PRN (Reason: pain) Qty: 100 RF: 0 fexofenadine 180 mg Tablet 180 mg PO DAILY RF: 0 pantoprazole 20 mg Tablet,Delayed Release (Dr/Ec) 20 mg PO BID RF: 0 benzonatate 200 mg capsule 200 mg PO BID PRN (Reason: cough) Qty: 20 RF: 0 albuterol sulfate 2.5 mg /3 mL (0.083 %) solution for nebulization 2.5 mg inhalation PRN PRN (Reason: ASTHMA) RF: 0 glimepiride 2 mg tablet 2 mg PO DAILY RF: 0 dextroamphetamine-amphetamine 20 mg capsule,extended release 24hr 20 mg PO DAILY RF: 0 lisinopril 5 mg tablet 5 mg PO DAILY RF: 0 albuterol sulfate 90 mcg/actuation HFA aerosol inhaler 1 puff INHALATION PRN PRN (Reason: ASTHMA) RF: 0 oxycodone 5 mg capsule 5 mg PO Q6H PRN (Reason: pain) 7 Days Qty: 28 RF: 0 cyclobenzaprine 10 mg tablet 10 mg PO TID PRN (Reason: muscle spasm) 21 Days Qty: 30 RF: 0 oxycodone-acetaminophen [Percocet] 5-325 mg Tablet 1 tab PO Q6H PRN (Reason: Pain) RF: 0 metoprolol tartrate 25 mg Tablet 25 mg PO DAILY RF: 0 citalopram 40 mg Tablet 40 mg PO DAILY RF: 0 hydroxyzine HCl 25 mg Tablet 25 mg PO QHS RF: 0 Primary Care Provider: Miguelito Unger Referrals: Miguelito Unger MD [Primary Care Provider] - 5-7 Days Disposition Disposition: Home, Self Care
== END 2021-02-08 19:24 | disposition home or self-care (01) ==
PROVIDERS: Emergency Provider Emergency Medicine; PCP Family Medicine
DX: R20.2 Paresthesia of skin (principal); R20.0 Anesthesia of skin; E66.9 Obesity, unspecified
CPT/HCPCS: 36415; 80048; 85025; 99282

== ENCOUNTER 2021-03-26 07:08 | Emergency (ER) | payer BC, MEDICAID, SELFPAY ==
[2021-03-26 07:10] VITALS: BP 151/92; PULSE 98; RESP 16; TEMP 35.8; O2SAT 94; BMI 66.9
--- NOTE | 2021-03-26 07:19 | CT_ITS ---
STUDY: CT ABDOMEN AND PELVIS WITH CONTRAST REASON FOR EXAM: Female, 25 years old. Abdominal pain. Elevated white blood cell count. The patient is status post resection of the left adrenal gland. RADIATION DOSAGE (If Supplied By Facility): CTDIvol = ( 21.63 ) mGy, DLP = ( 1592.85 ) mGycm TECHNIQUE: Transaxial images were obtained from the dome of the diaphragm to the symphysis pubis without oral contrast. ISOVUE 300 100ML was administered. Sagittal and coronal images were reconstructed. Individualized dose optimization techniques were used for this CT. COMPARISON: Comparison is made with prior study dated 09/28/2020. FINDINGS: The visualized lung bases are unremarkable. The visualized portions of the heart are within normal limits. There is decreased attenuation of the liver consistent with steatosis. There are surgical clips in the gallbladder fossa consistent with a prior cholecystectomy. Normal spleen. Normal pancreas. The patient is status post left adrenalectomy. There is a 5 mm nonobstructive calculus in the lower pole calyx of the right kidney. Normal left kidney. Normal visualized stomach. Normal small intestine. Normal colon. The appendix is visualized and appears normal. Normal abdominal aorta. Normal inferior vena cava. There is borderline retroperitoneal lymphadenopathy with enlarged nodes no greater than 10mm in the short axis diameter. Normal urinary bladder. The right ovary measures 4 cm x 4.6 cm. Follicles are seen within it. There is a small umbilical hernia containing fat. The neck of the hernia measures 4.8 cm. Normal osseous structures. CT/Abdomen/Pelvis W IV Cont ONLY IMPRESSION: Fatty infiltration of the liver. 5 mm nonobstructive calculus in the lower pole calyx of the right kidney. Follicles are seen within the right ovary. Stable umbilical hernia. Electronically Signed: Geovanni Retana MD at 8:52 EDT , Service support ,
--- NOTE | 2021-03-26 07:21 | EDS_ITS ---
HPI HPI - GI History of Present Illness Chief Complaint: Abd Pain Narrative Narrative: Patient presents with right lower quadrant abdominal pain for the past few days, she also had some dysuria but apparently had a negative urinalysis outpatient. Her pain got worse last night. It is sharp stabbing and right lower quadrant region. She has no back pain she has no epigastric pain she has some nausea but no vomiting no diarrhea or constipation. She does have a complicated history with left-sided ovarian mass and status post removal of her left ovary. [facility] Medical History Anemia Anxiety Arthritis Asthma Cancer Cancer Cardiology follow-up encounter [place]'s disease Depression Diabetes Dietary restriction Gastric reflux GERD (gastroesophageal reflux disease) Herniated disc History of echocardiogram History of irregular heartbeat History of pain when walking History of steroid therapy Injury of back Injury of head and neck Kidney stones Non-smoker Obesity Ovarian cyst PCOS (polycystic ovarian syndrome) Walker as ambulation aid Home Medications metformin 1,000 mg PO BID 06/25/18 [History Last Taken 01/30/21 08:00] ferrous sulfate 1 tab PO DAILY 05/16/19 [History Last Taken 01/24/21 08:00] cholecalciferol (vitamin D3) 125 mcg PO DAILY 05/17/19 [History Last Taken 01/24/21 08:00] epinephrine 0.3 mg IM X1 PRN #1 syringe 05/14/20 [Rx Last Taken 01/30/21 08:00] bupropion HCl 300 mg 24 hr tablet, extended release 300 mg PO QAM 07/14/20 [History Last Taken 01/30/21 08:00] Fenofibrate 48 mg PO DAILY 07/23/20 [History Last Taken 01/30/21 08:00] sitagliptin 100 mg PO DAILY 07/23/20 [History Last Taken 01/30/21 08:00] gabapentin 300 mg PO BID 08/19/20 [History Last Taken 01/30/21 08:00] sucralfate 1 gm PO BID 09/20/20 [History Last Taken 01/30/21 08:00] ondansetron 4 mg PO Q8H PRN PRN #10 tablet 09/28/20 [Rx Last Taken 01/30/21 08:00] lidocaine HCl [Lidocaine Viscous] 15 ml MUCOUS MEMBRANE Q8H PRN #100 ml 10/04/20 [Rx Last Taken 01/30/21 08:00] metoclopramide HCl [Reglan] 10 mg PO Q6H PRN #20 tab 10/04/20 [Rx Last Taken 01/30/21 08:00] fexofenadine 180 mg PO DAILY 11/21/20 [History Last Taken 01/30/21 08:00] pantoprazole 20 mg PO BID 11/21/20 [History Last Taken 01/30/21 08:00] benzonatate 200 mg PO BID PRN #20 cap 11/30/20 [Rx Last Taken 01/30/21 08:00] citalopram 40 mg PO DAILY 01/10/21 [History Last Taken 01/30/21 08:00] hydroxyzine HCl 25 mg PO QHS 01/10/21 [History Last Taken 01/30/21 08:00] metoprolol tartrate 25 mg PO DAILY 01/10/21 [History Last Taken 01/30/21 08:00] oxycodone-acetaminophen [Percocet] 1 tab PO Q6H PRN 01/10/21 [History Last Taken 01/30/21 08:00] albuterol sulfate 1 puff INHALATION PRN PRN 01/25/21 [History Last Taken 01/30/21 08:00] albuterol sulfate 2.5 mg INHALATION PRN PRN 01/25/21 [History Last Taken 01/30/21 08:00] dextroamphetamine-amphetamine 20 mg PO DAILY 01/25/21 [History Last Taken 01/30/21 08:00] glimepiride 2 mg PO DAILY 01/25/21 [History Last Taken 01/30/21 08:00] lisinopril 5 mg PO DAILY 01/25/21 [History Last Taken 01/30/21 08:00] cyclobenzaprine 10 mg PO TID PRN 21 Days #30 tab 01/31/21 [Rx Last Taken Unknown] oxycodone 5 mg PO Q6H PRN 7 Days #28 cap 01/31/21 [Rx Last Taken Unknown] Allergy/AdvReac Type Severity Reaction Status Date / Time penicillin V potassium Allergy Mild Rash Verified 03/26/21 07:09 [From Jimmy Garcia] brompheniramine maleate Allergy Shortness Verified 03/26/21 07:09 [From Dimetapp of breath (brompheniramine-PPA)] celery Allergy Swelling Verified 03/26/21 07:09 phenylpropanolamine HCl Allergy Shortness Verified 03/26/21 07:09 [From Dimetapp of breath (brompheniramine-PPA)] amoxicillin trihydrate AdvReac Intermediate Diarrhea Verified 03/26/21 07:09 [From Augmentin] potassium clavulanate AdvReac Intermediate Diarrhea Verified 03/26/21 07:09 [From Augmentin] dicyclomine HCl [From Bentyl] AdvReac Nausea/Vom/ Verified 03/26/21 07:09 Diarrhea plastic tape Allergy Rash Uncoded 03/26/21 07:09 FRUCTOSE AdvReac Nausea/Vom/ Uncoded 03/26/21 07:09 Diarrhea Family History Father Diabetes Mother Hypertension Grandmother Breast cancer 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 H/O endoscopy H/O oophorectomy H/O ovarian cystectomy H/O wisdom tooth extraction History of adrenal surgery History of tonsillectomy and adenoidectomy Hx of cholecystectomy Social History household members: family Smoking Status: Never smoker alcohol intake: current alcohol intake frequency: a few times a month substance use type: does not use seatbelt use: always do you feel safe at home: Yes ROS ROS ED ROS Narrative Past medical history: Reviewed, complicated includes prior ovarian mass, diabetes, [place]'s disease and morbid obesity Medications: Reviewed Social history: Noncontributory Review of systems: All systems negative except as indicated General: No fever Eyes: No visual changes ENT: No upper airway congestion, normal voice Neck: No neck pain Cardiovascular: No chest pain Respiratory: No shortness of breath or cough Gastrointestinal: Right lower quadrant abdominal pain as in HPI Genitourinary: Some dysuria for the past few days. Musculoskeletal: Denies myalgias no difficulty with ambulation Skin: No rash Neurological: No memory loss, confusion or any focal weakness Psych: No recent behavioral changes Hematologic: No easy bleeding or easy bruising EXAM Physical Exam Narrative Exam Narrative: Physical exam General: Patient appears uncomfortable in the bed. Head: Normocephalic, Atraumatic Eyes: Conjunctiva not pale ENT: Moist mucous membranes Neck: Supple, Nontender, No lymphadenopathy Cardiovascular: Regular rate, Regular rhythm Respiratory: No distress, CTA bilaterally Abdomen: Soft, most of the pain is in the right lower quadrant it is somewhat of a difficult exam due to the body habitus. I cannot appreciate bowel sounds but again this is quite difficult. No obvious guarding or rebound. Back: Nontender, Normal Inspection. Negative for: CVA tenderness Extremities: Nontender, No edema Skin: Normal color, No rash Neurological: Alert, Normal Strength, Normal Sensation Psychological: Anxious appearing Const Vital Signs: 03/26/21 07:10 03/26/21 08:43 Temperature 96.4 F L Temperature Source Temporal Pulse Rate 98 91 Respiratory Rate 16 16 Blood Pressure 151/92 H 142/68 H Blood Pressure Mean 111 92 Pulse Ox 94 96 Oxygen Delivery Method Room Air Room Air MDM MDM MDM Narrative Medical decision making narrative: Both CT and ultrasound are unremarkable, she likely has dysuria because of the amount of glucose in her urine otherwise I do not see any infection she appears well I will discharge her in stable condition. Lab Data Labs: Laboratory Results - last 24 hr 03/26/21 03/26/21 03/26/21 07:27 07:27 07:35 WBC 12.0 H RBC 4.42 Hgb 10.8 L Hct 35.3 L MCV 79.9 L MCH 24.4 L MCHC 30.6 L RDW Std Deviation 43.8 RDW Coeff of Silvia 15.4 H Plt Count 350 MPV 10.2 Immature Gran % (Auto) 0.700 Neut % (Auto) 70.2 H Lymph % (Auto) 20.1 [place] % (Auto) 5.8 Eos % (Auto) 2.8 Baso % (Auto) 0.4 Absolute Neuts (auto) 8.4 H Absolute Lymphs (auto) 2.41 Nucleated RBC % 0 Sodium 136 Potassium 4.2 Chloride 100 Carbon Dioxide 26.0 Anion Gap 10 BUN 9 Creatinine 0.68 Estim Creat Clear Calc 129.80 Est GFR (MDRD) Af Amer 137 Est GFR (MDRD) Non-Af 113 BUN/Creatinine Ratio 13.2 Glucose 269 H Calcium 9.2 Total Bilirubin 0.20 AST 52 H ALT 62 H Alkaline Phosphatase 75 Total Protein 7.3 Albumin 2.9 L Globulin 4.4 H Albumin/Globulin Ratio 0.7 L Lipase 142 Urine Color Straw Urine Clarity Clear Urine pH 7.0 Ur Specific [place] 1.015 Urine Protein Negative Urine Glucose (UA) 1000 H Urine Ketones Negative Urine Occult Blood 25 H Urine Nitrite Negative Urine Bilirubin Negative Urine Urobilinogen Normal Ur Leukocyte Esterase 25 H Urine RBC 0-5 SEEN Urine WBC 0-5 SEEN Ur Squamous Epith Cells 5-10 SEEN Urine Bacteria RARE Urine Mucus 0 SEEN Urine Test Negative Radiography Diagnostic Testing: Clinical Impression(s) from Imaging Studies Abdomen/Pelvis CT 03/26/21 07:19 IMPRESSION: Fatty infiltration of the liver. 5 mm nonobstructive calculus in the lower pole calyx of the right kidney. Follicles are seen within the right ovary. Stable umbilical hernia. Electronically Signed: Geovanni Retana MD at 8:52 EDT , Service support , Pelvis Ultrasound 03/26/21 09:01 IMPRESSION: Normal female pelvis. Status post left oophorectomy. Electronically Signed: Geovanni Retana MD at 9:55 EDT , Service support , Discharge Plan Triage Chief Complaint: Abd Pain ED Provider: Jj Cole Dx/Rx/DC Orders Clinical Impression: Abdominal pain Instructions: Abdominal Pain Prescriptions: No Action bupropion HCl [Wellbutrin XL] 300 mg tablet extended release 24 hr 300 mg PO QAM RF: 0 metformin 1,000 MG tablet 1,000 mg PO BID RF: 0 ferrous sulfate 325 MG tablet 1 tab PO DAILY RF: 0 cholecalciferol (vitamin D3) 125 MCG capsule 125 mcg PO DAILY RF: 0 epinephrine 0.3 MG syringe 0.3 mg IM X1 PRN (Reason: Anaphylaxis) Qty: 1 RF: 0 sitagliptin 100 MG tablet 100 mg PO DAILY RF: 0 Fenofibrate 48 mg PO DAILY RF: 0 gabapentin 100 MG capsule 300 mg PO BID RF: 0 sucralfate 1 GM tablet 1 gm PO BID RF: 0 ondansetron 4 MG tablet 4 mg PO Q8H PRN PRN (Reason: Nausea) Qty: 10 RF: 0 metoclopramide HCl [Reglan] 10 mg tablet 10 mg PO Q6H PRN (Reason: nausea and vomiting) Qty: 20 RF: 0 lidocaine HCl [Lidocaine Viscous] 2 % solution 15 ml mucous membrane Q8H PRN (Reason: pain) Qty: 100 RF: 0 fexofenadine 180 mg Tablet 180 mg PO DAILY RF: 0 pantoprazole 20 mg Tablet,Delayed Release (Dr/Ec) 20 mg PO BID RF: 0 benzonatate 200 mg capsule 200 mg PO BID PRN (Reason: cough) Qty: 20 RF: 0 albuterol sulfate 2.5 mg /3 mL (0.083 %) solution for nebulization 2.5 mg inhalation PRN PRN (Reason: ASTHMA) RF: 0 glimepiride 2 mg tablet 2 mg PO DAILY RF: 0 dextroamphetamine-amphetamine 20 mg capsule,extended release 24hr 20 mg PO DAILY RF: 0 lisinopril 5 mg tablet 5 mg PO DAILY RF: 0 albuterol sulfate 90 mcg/actuation HFA aerosol inhaler 1 puff INHALATION PRN PRN (Reason: ASTHMA) RF: 0 oxycodone 5 mg capsule 5 mg PO Q6H PRN (Reason: pain) 7 Days Qty: 28 RF: 0 cyclobenzaprine 10 mg tablet 10 mg PO TID PRN (Reason: muscle spasm) 21 Days Qty: 30 RF: 0 oxycodone-acetaminophen [Percocet] 5-325 mg Tablet 1 tab PO Q6H PRN (Reason: Pain) RF: 0 metoprolol tartrate 25 mg Tablet 25 mg PO DAILY RF: 0 citalopram 40 mg Tablet 40 mg PO DAILY RF: 0 hydroxyzine HCl 25 mg Tablet 25 mg PO QHS RF: 0 Primary Care Provider: Miguelito Unger Referrals: Miguelito Unger MD [Primary Care Provider] - 2 Days Disposition Disposition: Home, Self Care
[2021-03-26] MEDS: Ondansetron 4 MG/2 ML Vial IV (07:38)
[2021-03-26] MEDS: 0.9% Normal Saline 1,000 ML 1000 ML IV (07:38)
[2021-03-26] MEDS: Morphine 4 MG/ML Syringe IV ×2 (07:38→09:17)
[2021-03-26 07:39] LABS: Absolute Lymphocyte Count 2.41 X10^3/uL (0.83-4.51); Absolute Neutrophil Count 8.4 X10^3/uL (2.0-7.7); Basophil# 0.05 X10^3/uL; Basophil% 0.4 % (0-1); Eosinophil# 0.34 X10^3/uL; Eosinophils% 2.8 % (0-5); Hematocrit 35.3 % (37-47); Hemoglobin 10.8 g/dL (12.0-15.0); Lymphocyte # 2.41 X10^3/ul (0.83-4.51); Lymphocyte % 20.1 % (19-41); Mean Corp Hgb Conc 30.6 g/dL (32-36); Mean Corpuscular Hgb 24.4 pg (27.0-32.0); Mean Corpuscular Volume 79.9 fL (81-99); Mean Platelet Vol. 10.2 fl (6.2-12.0); Monocyte% 5.8 % (0-10); NRBC Flagged by Analyzer 0 % (0-5); Neutrophil # 8.41 X10^3/uL (2.7-7.7); Neutrophil % 70.2 % (47-70); Platelet Count 350 K/mm3 (150-450); RBC Distribution Width CV 15.4 % (11.6-14.6); RBC Distribution Width SD 43.8 fl (35.1-43.9); Red Blood Count 4.42 M/mm3 (4.2-5.4)
[2021-03-26 07:44] LABS: Mucous, Urine 0 SEEN /hpf (<or=2+)
[2021-03-26 07:50] LABS: Color, Urine Straw (Yellow); Glucose, Dipstick 1000 mg/dl (Normal); Ketone-Dipstick Negative (Negative); Leukocyte Esterase-Dipstick 25 /ul (Negative); Nitrite-Dipstick Negative (Negative); Occult Blood-Urine 25 /ul (Negative); Protein-Dipstick Negative (Negative); Specific Gravity, Urine 1.015 (1.002-1.030); Urine Bilirubin Dipstick Negative (Negative); Urine Clarity Clear (Clear); Urine Urobilinogen Normal (Normal)
[2021-03-26 07:52] LABS: Internal QC Validated? YES +Cl - CLEAR BKGD; Pregnancy, Urine Negative Negative
[2021-03-26 08:00] LABS: ALB/GLOB Ratio 0.7 RATIO (0.9-2.4); AST(SGOT) 52 U/L (15-37); Alanine Aminotransfer ALT/SGPT 62 U/L (13-56); Albumin, Serum 2.9 g/dL (3.2-5.0); Alkaline Phosphatase 75 U/L (45-117); Anion Gap 10 (5-15); BUN 9 mg/dL (7-18); BUN/Creat Ratio 13.2 RATIO (10-20); Calcium,Total 9.2 mg/dL (8.5-10.1); Chloride 100 mmol/L (98-107); Creatinine, Serum 0.68 mg/dL (0.55-1.02); EST Glomerular Filtration Rate 113 mL/min (>60); Est Glom Filt Rate - Afr Amer 137 mL/min (>60); Globulin 4.4 g/dL (2.2-4.2); Glucose 269 mg/dL (74-106); Lipase 142 U/L (73-393); Potassium 4.2 mmol/L (3.5-5.1); Protein, Total 7.3 g/dL (6.4-8.2); Sodium Level 136 mmol/L (136-145)
[2021-03-26 08:02] LABS: Bacteria RARE /hpf (None Seen); Red Blood Cells-Urine 0-5 SEEN /hpf (0-5); Squamous Epithelial Cells - UA 5-10 SEEN /hpf (5-10); White Blood Cells 0-5 SEEN /hpf (0-5)
[2021-03-26 08:43] VITALS: BP 142/68; PULSE 91; RESP 16; O2SAT 96
--- NOTE | 2021-03-26 09:01 | US_ITS ---
STUDY: ULTRASOUND OF THE FEMALE PELVIS - COMPLETE REASON FOR EXAM: Female, 25 years old. Pelvic pain, r/o mass, torsion LMP: 03/13/2021. TECHNIQUE: Transabdominal TECHNICAL QUALITY: Adequate. COMPARISON: Comparison is made with prior ultrasound dated 07/18/[address] scan done earlier today. FINDINGS: The uterus is anteverted and is in a midline position. The uterus measures 8.8 cm x 4.5 cm x 3.1 cm. Normal uterine cervix. The endometrium measures 3.1 mm in thickness, and is hyperechoic. There is no demonstrated endometrial mass. There is no demonstrated myometrial mass. I.U.D. - The patient does not have an I.U.D. The right ovary is visualized. The right ovary measures 3.1 cm x 3.6 cm by 2.4 cm. There is no right ovarian cyst or ovarian mass. There is no visualized right adnexal mass or complex lesion. There is normal arterial and normal venous vascularity. The patient is status post left oophorectomy. There is no fluid in the cul-de-sac. The pre void volume of the bladder was 263 ml. US/Pelvic (Non ) IMPRESSION: Normal female pelvis. Status post left oophorectomy. Electronically Signed: Geovanni Retana MD at 9:55 EDT , Service support ,
[2021-03-26 10:52] VITALS: RESP 18
== END 2021-03-26 10:52 | disposition home or self-care (01) ==
PROVIDERS: Emergency Provider Emergency Medicine; PCP Family Medicine
DX: R10.31 Right lower quadrant pain (principal); E66.01 Morbid (severe) obesity due to excess calories
CPT/HCPCS: 74177; 76856; 80053; 81001; 81025; 83690; 85025; 96361; 96374; 96375; 96376; 99283; J7030; Q9967; A4216; J2405

== ENCOUNTER 2021-05-23 19:11 | Emergency (ER) | payer BC, MEDICAID, SELFPAY ==
[2021-05-23 19:12] VITALS: BP 163/70; PULSE 101; RESP 22; TEMP 37.2; O2SAT 98; BMI 66.9
--- NOTE | 2021-05-23 20:16 | EDS_ITS ---
HPI HPI - GI History of Present Illness Chief Complaint: Abd Pain Narrative Narrative: 24-year-old female presenting with right lower quadrant pain which started about 2 hours ago. Patient states she was having a bowel movement when this occurred. Patient states he has multiple bowel movements throughout the day and some of them are watery and some of them are hard. Patient does have history of ovarian cysts as well as polycystic ovarian disease. She is history of gallbladder disease and she is status post cholecystectomy. Patient has not had any fever or chills. No history of kidney stones and no urinary complaints. PFSH PFSH Medical History Anemia Anxiety Arthritis Asthma Cancer Cancer Cardiology follow-up encounter Os[place]ola's disease Depression Diabetes Dietary restriction Gastric reflux GERD (gastroesophageal reflux disease) Herniated disc History of echocardiogram History of irregular heartbeat History of pain when walking History of steroid therapy Injury of back Injury of head and neck Kidney stones Non-smoker Obesity Ovarian cyst PCOS (polycystic ovarian syndrome) Walker as ambulation aid Home Medications metformin 1,000 mg PO BID 06/25/18 [History Last Taken 01/30/21 08:00] ferrous sulfate 1 tab PO DAILY 05/16/19 [History Last Taken 01/24/21 08:00] cholecalciferol (vitamin D3) 125 mcg PO DAILY 05/17/19 [History Last Taken 01/24/21 08:00] epinephrine 0.3 mg IM X1 PRN #1 syringe 05/14/20 [Rx Last Taken 01/30/21 08:00] bupropion HCl 300 mg 24 hr tablet, extended release 300 mg PO QAM 07/14/20 [History Last Taken 01/30/21 08:00] Fenofibrate 48 mg PO DAILY 07/23/20 [History Last Taken 01/30/21 08:00] sitagliptin 100 mg PO DAILY 07/23/20 [History Last Taken 01/30/21 08:00] gabapentin 300 mg PO BID 08/19/20 [History Last Taken 01/30/21 08:00] sucralfate 1 gm PO BID 09/20/20 [History Last Taken 01/30/21 08:00] ondansetron 4 mg PO Q8H PRN PRN #10 tablet 09/28/20 [Rx Last Taken 01/30/21 08:00] lidocaine HCl [Lidocaine Viscous] 15 ml MUCOUS MEMBRANE Q8H PRN #100 ml 10/04/20 [Rx Last Taken 01/30/21 08:00] metoclopramide HCl [Reglan] 10 mg PO Q6H PRN #20 tab 10/04/20 [Rx Last Taken 01/30/21 08:00] fexofenadine 180 mg PO DAILY 11/21/20 [History Last Taken 01/30/21 08:00] pantoprazole 20 mg PO BID 11/21/20 [History Last Taken 01/30/21 08:00] benzonatate 200 mg PO BID PRN #20 cap 11/30/20 [Rx Last Taken 01/30/21 08:00] citalopram 40 mg PO DAILY 01/10/21 [History Last Taken 01/30/21 08:00] hydroxyzine HCl 25 mg PO QHS 01/10/21 [History Last Taken 01/30/21 08:00] metoprolol tartrate 25 mg PO DAILY 01/10/21 [History Last Taken 01/30/21 08:00] albuterol sulfate 1 puff INHALATION PRN PRN 01/25/21 [History Last Taken 01/30/21 08:00] albuterol sulfate 2.5 mg INHALATION PRN PRN 01/25/21 [History Last Taken 01/30/21 08:00] dextroamphetamine-amphetamine 20 mg PO DAILY 01/25/21 [History Last Taken 01/30/21 08:00] glimepiride 2 mg PO DAILY 01/25/21 [History Last Taken 01/30/21 08:00] lisinopril 5 mg PO DAILY 01/25/21 [History Last Taken 01/30/21 08:00] cyclobenzaprine 10 mg PO TID PRN 21 Days #30 tab 01/31/21 [Rx Last Taken Unknown] ondansetron 4 mg PO Q8H PRN PRN #10 tab 05/23/21 [Rx Last Taken Unknown] Allergy/AdvReac Type Severity Reaction Status Date / Time penicillin V potassium Allergy Mild Rash Verified 05/23/21 20:11 [From Pen-Vee K] brompheniramine maleate Allergy Shortness Verified 05/23/21 20:11 [From Dimetapp of breath (brompheniramine-PPA)] celery Allergy Swelling Verified 05/23/21 20:11 phenylpropanolamine HCl Allergy Shortness Verified 05/23/21 20:11 [From Dimetapp of breath (brompheniramine-PPA)] amoxicillin trihydrate AdvReac Intermediate Diarrhea Verified 05/23/21 20:11 [From Augmentin] potassium clavulanate AdvReac Intermediate Diarrhea Verified 05/23/21 20:11 [From Augmentin] dicyclomine HCl [From Bentyl] AdvReac Nausea/Vom/ Verified 05/23/21 20:11 Diarrhea plastic tape Allergy Rash Uncoded 05/23/21 20:11 FRUCTOSE AdvReac Nausea/Vom/ Uncoded 05/23/21 20:11 Diarrhea Family History Father Diabetes Mother Hypertension Grandmother Breast cancer 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 H/O endoscopy H/O oophorectomy H/O ovarian cystectomy H/O wisdom tooth extraction History of adrenal surgery History of tonsillectomy and adenoidectomy Hx of cholecystectomy Social History household members: family Smoking Status: Never smoker alcohol intake: current alcohol intake frequency: a few times a month substance use type: does not use seatbelt use: always do you feel safe at home: Yes ROS ROS ED Constitutional Constitutional ED: Denies chills or fever(s) ENT ENT ED: Denies rhinorrhea or sore throat Cardiovascular Cardiovascular: Denies chest pain or palpitations Respiratory/Chest Respiratory/Chest: Denies cough or dyspnea Gastrointestinal Gastrointestinal: Reports abdominal pain, constipation, diarrhea and nausea; Denies vomiting Genitourinary Genitourinary ED: Denies dysuria or hematuria Musculoskeletal Musculoskeletal: Denies arthralgias or myalgias Integumentary Denies Abrasions or rash Neurologic Neurologic: Denies headache(s) or weakness EXAM Physical Exam Const Vital Signs: 05/23/21 19:12 05/23/21 22:28 Temperature 99 F Temperature Source Temporal Pulse Rate 101 H 88 Respiratory Rate 22 H 16 Blood Pressure 163/70 H Blood Pressure Mean 101 Pulse Ox 98 97 Oxygen Delivery Method Room Air Room Air Positive obese General Appearance ED: NAD; Negative for pallor Nutritional Appearance: obese HEENT Reports moist mucous membranes normocephalic and atraumatic Eyes PERRL and EOMs intact bilaterally General Eye ED: Negative for pale conjunctiva or scleral icterus Resp normal respiratory effort and clear to auscultation bilaterally Cardio regular rate and regular rhythm GI non-distended GI Narrative: Negative McBurney point tenderness. Abdomen nonperitoneal. Palpation: soft and tender RLQ Back/Spine no CVA tenderness Neuro Sensorium / Orientation: alert, oriented to person, oriented to place and oriented to time Psych mental status grossly normal and thought process normal Skin General Skin Exam: Negative for jaundice or pallor MDM MDM MDM Narrative Medical decision making narrative: Patient presenting with right-sided abdominal pain. On exam her abdomen is benign. I did obtain lab work and her white blood cell count is slightly elevated at 13.4 however it is typically elevated above this. Her hemoglobin is 10.5 which is near her baseline. Platelets are normal. Renal function electrolytes are normal. AST and ALT are slightly elevated. Serum is negative. Patient given Toradol and Zofran for her pain. She feels some improvement after this. CT of the abdomen pelvis was ordered due to the leukocytosis and this is negative for any acute findings. Given this I feel the patient is stable to be discharged home. She was given return precautions. Follow-up with your PCP to ensure resolution. Impression: 1. Abdominal pain Lab Data Attestation: I reviewed the patient's lab results. Labs: Laboratory Results - last 24 hr 05/23/21 05/23/21 05/23/21 21:05 21:05 21:05 WBC 13.4 H RBC 4.42 Hgb 10.5 L Hct 34.8 L MCV 78.7 L MCH 23.8 L MCHC 30.2 L RDW Std Deviation 44.0 H RDW Coeff of Silvia 15.6 H Plt Count 387 MPV 9.8 Immature Gran % (Auto) 0.700 Neut % (Auto) 68.2 Lymph % (Auto) 23.1 [place] % (Auto) 4.8 Eos % (Auto) 2.8 Baso % (Auto) 0.4 Absolute Neuts (auto) 9.1 H Absolute Lymphs (auto) 3.08 Nucleated RBC % 0 Sodium 138 Potassium 3.6 Chloride 106 Carbon Dioxide 26.0 Anion Gap 6 BUN 9 Creatinine 0.67 Estim Creat Clear Calc 131.73 Est GFR (MDRD) Af Amer 139 Est GFR (MDRD) Non-Af 115 BUN/Creatinine Ratio 13.4 Glucose 234 H Calcium 9.1 Total Bilirubin 0.30 AST 73 H ALT 98 H Alkaline Phosphatase 73 Total Protein 7.2 Albumin 2.9 L Globulin 4.3 H Albumin/Globulin Ratio 0.7 L Serum , Qual NEGATIVE Radiography Diagnostic Testing: Clinical Impression(s) from Imaging Studies Abdomen/Pelvis CT 05/23/21 21:20 IMPRESSION: No acute abnormalities in the abdomen or pelvis. Fatty liver. 4 mm nonobstructing stone in the right lower renal pole. Small fat-containing umbilical hernia. Electronically Signed: Torito Jarrell MD at 22:37 EST Tel , Service support , Discharge Plan Triage Chief Complaint: Abd Pain ED Provider: Eliseo Prather Dx/Rx/DC Orders Instructions: ED Abdominal Pain Unkn Cause Fem Prescriptions: New ondansetron 4 mg tablet,disintegrating 4 mg PO Q8H PRN PRN (Reason: Nausea) Qty: 10 RF: 0 No Action bupropion HCl [Wellbutrin XL] 300 mg tablet extended release 24 hr 300 mg PO QAM RF: 0 metformin 1,000 MG tablet 1,000 mg PO BID RF: 0 ferrous sulfate 325 MG tablet 1 tab PO DAILY RF: 0 cholecalciferol (vitamin D3) 125 MCG capsule 125 mcg PO DAILY RF: 0 epinephrine 0.3 MG syringe 0.3 mg IM X1 PRN (Reason: Anaphylaxis) Qty: 1 RF: 0 sitagliptin 100 MG tablet 100 mg PO DAILY RF: 0 Fenofibrate 48 mg PO DAILY RF: 0 gabapentin 100 MG capsule 300 mg PO BID RF: 0 sucralfate 1 GM tablet 1 gm PO BID RF: 0 ondansetron 4 MG tablet 4 mg PO Q8H PRN PRN (Reason: Nausea) Qty: 10 RF: 0 metoclopramide HCl [Reglan] 10 mg tablet 10 mg PO Q6H PRN (Reason: nausea and vomiting) Qty: 20 RF: 0 lidocaine HCl [Lidocaine Viscous] 2 % solution 15 ml mucous membrane Q8H PRN (Reason: pain) Qty: 100 RF: 0 fexofenadine 180 mg Tablet 180 mg PO DAILY RF: 0 pantoprazole 20 mg Tablet,Delayed Release (Dr/Ec) 20 mg PO BID RF: 0 benzonatate 200 mg capsule 200 mg PO BID PRN (Reason: cough) Qty: 20 RF: 0 albuterol sulfate 2.5 mg /3 mL (0.083 %) solution for nebulization 2.5 mg inhalation PRN PRN (Reason: ASTHMA) RF: 0 glimepiride 2 mg tablet 2 mg PO DAILY RF: 0 dextroamphetamine-amphetamine 20 mg capsule,extended release 24hr 20 mg PO DAILY RF: 0 lisinopril 5 mg tablet 5 mg PO DAILY RF: 0 albuterol sulfate 90 mcg/actuation HFA aerosol inhaler 1 puff INHALATION PRN PRN (Reason: ASTHMA) RF: 0 cyclobenzaprine 10 mg tablet 10 mg PO TID PRN (Reason: muscle spasm) 21 Days Qty: 30 RF: 0 metoprolol tartrate 25 mg Tablet 25 mg PO DAILY RF: 0 citalopram 40 mg Tablet 40 mg PO DAILY RF: 0 hydroxyzine HCl 25 mg Tablet 25 mg PO QHS RF: 0 Primary Care Provider: Miguelito Unger Referrals: Miguelito Unger MD [Primary Care Provider] - Disposition Disposition: Home, Self Care
[2021-05-23 21:16] LABS: Absolute Lymphocyte Count 3.08 X10^3/uL (0.83-4.51); Absolute Neutrophil Count 9.1 X10^3/uL (2.0-7.7); Basophil# 0.06 X10^3/uL; Basophil% 0.4 % (0-1); Eosinophil# 0.37 X10^3/uL; Eosinophils% 2.8 % (0-5); Hematocrit 34.8 % (37-47); Hemoglobin 10.5 g/dL (12.0-15.0); Lymphocyte # 3.08 X10^3/ul (0.83-4.51); Lymphocyte % 23.1 % (19-41); Mean Corp Hgb Conc 30.2 g/dL (32-36); Mean Corpuscular Hgb 23.8 pg (27.0-32.0); Mean Corpuscular Volume 78.7 fL (81-99); Mean Platelet Vol. 9.8 fl (6.2-12.0); Monocyte# 0.64 X10^3/uL; Monocyte% 4.8 % (0-10); NRBC Flagged by Analyzer 0 % (0-5); Neutrophil % 68.2 % (47-70); Platelet Count 387 K/mm3 (150-450); RBC Distribution Width CV 15.6 % (11.6-14.6); Red Blood Count 4.42 M/mm3 (4.2-5.4); White Blood Count 13.4 K/mm3 (4.4-11.0)
[2021-05-23] MEDS: Ondansetron 4 MG/2 ML Vial IV (21:18)
--- NOTE | 2021-05-23 21:20 | CT_ITS ---
INDICATION: RLQ abdominal pain EXAMINATION: CT Abdomen And Pelvis W/ Contrast Injection TECHNIQUE: Helically acquired images were obtained of the abdomen and pelvis after IV contrast. A radiation dose optimization technique was used for this scan. IV Contrast dosage and agent: IV 100mL [id number] Oral contrast: None. COMPARISON: 03/26/2021. FINDINGS: Visualized lung bases: Unremarkable Liver: Diffusely hypodense consistent with fatty liver. Gallbladder: Surgically absent. Spleen: Unremarkable Pancreas: Unremarkable Adrenal Glands: Unremarkable Kidneys: 4 mm nonobstructing stone in the right lower renal pole. Vasculature: Unremarkable GI Tract: The appendix is not visualized. Lymphadenopathy: None Peritoneum: No ascites. Bladder: Unremarkable Reproductive organs: Unremarkable Bones/Soft tissues: Small fat-containing umbilical hernia CT/Abdomen/Pelvis W IV Cont ONLY IMPRESSION: No acute abnormalities in the abdomen or pelvis. Fatty liver. 4 mm nonobstructing stone in the right lower renal pole. Small fat-containing umbilical hernia. Electronically Signed: Torito Jarrell MD at 22:37 EST Tel , Service support ,
[2021-05-23 21:27] LABS: Internal QC Validated? YES +Cl - CLEAR BKGD; Pregnancy, Serum, hCG Quali. NEGATIVE Negative
[2021-05-23 21:33] LABS: ALB/GLOB Ratio 0.7 RATIO (0.9-2.4); AST(SGOT) 73 U/L (15-37); Alanine Aminotransfer ALT/SGPT 98 U/L (13-56); Albumin, Serum 2.9 g/dL (3.2-5.0); Alkaline Phosphatase 73 U/L (45-117); Anion Gap 6 (5-15); BUN 9 mg/dL (7-18); BUN/Creat Ratio 13.4 RATIO (10-20); Calcium,Total 9.1 mg/dL (8.5-10.1); Chloride 106 mmol/L (98-107); Creatinine, Serum 0.67 mg/dL (0.55-1.02); EST Glomerular Filtration Rate 115 mL/min (>60); Est Glom Filt Rate - Afr Amer 139 mL/min (>60); Estimated Creatinine Clearance 131.73 ml/min; Globulin 4.3 g/dL (2.2-4.2); Glucose 234 mg/dL (74-106); Potassium 3.6 mmol/L (3.5-5.1); Protein, Total 7.2 g/dL (6.4-8.2); Sodium Level 138 mmol/L (136-145)
[2021-05-23 22:28] VITALS: PULSE 88; RESP 16; O2SAT 97
[2021-05-23] MEDS: Ketorolac 15 MG/ML Vial IV (22:29)
--- NOTE | 2021-05-23 23:11 | ED.RN ---
dietetic technician registered in the er at this time to deliver medications. patient mother was waiting in the er waiting room but left. Called patient at this time and patient left and no longer wants medications any more. aircraft avionics technician made aware.
== END 2021-05-23 22:56 | disposition home or self-care (01) ==
PROVIDERS: Emergency Provider Student in an Organized Health Care Education/Training Program; PCP Family Medicine
DX: R10.31 Right lower quadrant pain (principal); E66.9 Obesity, unspecified; E11.9 Type 2 diabetes mellitus without complications; J45.909 Unspecified asthma, uncomplicated; K21.9 Gastro-esophageal reflux disease without esophagitis; F32.A Depression, unspecified; F41.9 Anxiety disorder, unspecified; M19.90 Unspecified osteoarthritis, unspecified site; E28.2 Polycystic ovarian syndrome; E24.9 Cushing's syndrome, unspecified; Z79.84 Long term (current) use of oral hypoglycemic drugs; Z90.49 Acquired absence of other specified parts of digestive tract; Z79.899 Other long term (current) drug therapy
CPT/HCPCS: 74177; 80053; 84703; 85025; 96374; 96375; 99283; Q9967; A4216; J2405

== ENCOUNTER 2021-06-26 11:56 | Emergency (ER) | payer OTHER, MEDICAID, SELFPAY ==
[2021-06-26 11:58] VITALS: BP 165/91; PULSE 105; RESP 20; TEMP 36.6; O2SAT 98; BMI 67.0
[2021-06-26 12:51] LABS: Absolute Lymphocyte Count 2.93 X10^3/uL (0.83-4.51); Absolute Neutrophil Count 9.1 X10^3/uL (2.0-7.7); Basophil# 0.08 X10^3/uL; Basophil% 0.6 % (0-1); Eosinophil# 0.33 X10^3/uL; Eosinophils% 2.5 % (0-5); Hemoglobin 11.6 g/dL (12.0-15.0); Lymphocyte # 2.93 X10^3/ul (0.83-4.51); Lymphocyte % 22.1 % (19-41); Mean Corp Hgb Conc 31.4 g/dL (32-36); Mean Corpuscular Hgb 23.2 pg (27.0-32.0); Mean Platelet Vol. 9.6 fl (6.2-12.0); Monocyte# 0.69 X10^3/uL; Monocyte% 5.2 % (0-10); NRBC Flagged by Analyzer 0 % (0-5); Neutrophil # 9.14 X10^3/uL (2.7-7.7); Neutrophil % 69.1 % (47-70); Platelet Count 377 K/mm3 (150-450); RBC Distribution Width CV 15.8 % (11.6-14.6); RBC Distribution Width SD 42.1 fl (35.1-43.9); White Blood Count 13.2 K/mm3 (4.4-11.0)
[2021-06-26 13:02] LABS: Anion Gap 7 (5-15); BUN 9 mg/dL (7-18); Calcium,Total 9.1 mg/dL (8.5-10.1); Chloride 102 mmol/L (98-107); EST Glomerular Filtration Rate 130 mL/min (>60); Est Glom Filt Rate - Afr Amer 158 mL/min (>60); Glucose 233 mg/dL (74-106); Potassium 3.9 mmol/L (3.5-5.1); Sodium Level 135 mmol/L (136-145)
[2021-06-26 13:18] LABS: Amphetamine Urine VISTA NEGATIVE (<1000 ng/mL); Barbiturate Urine VISTA NEGATIVE (< 200 ng/mL); Benzodiazepine Urine VISTA NEGATIVE (< 200 ng/mL); Cocaine Urine VISTA NEGATIVE (< 300 ng/mL); Ecstacy Urine VISTA NEGATIVE (< 500 ng/mL); Methadone Urine VISTA NEGATIVE (< 300 ng/mL); PCP Urine VISTA NEGATIVE (< 25 ng/mL); THC Urine VISTA NEGATIVE (< 50 ng/mL); Vista UDS pH Range 6
[2021-06-26 13:20] LABS: Alcohol, Blood (Medical)-Serum < 3.0 mg/dL
[2021-06-26 13:32] LABS: Internal QC Validated? YES +Cl - CLEAR BKGD
[2021-06-26 13:33] LABS: Pregnancy, Serum, hCG Quali. NEGATIVE Negative
--- NOTE | 2021-06-26 14:23 | EDS_ITS ---
HPI HPI - Psych History of Present Illness Chief Complaint: Suicidal Narrative Narrative: 25-year-old female presenting with suicidal and homicidal ideation. Apparently she reported this to her gas collection system operator who called the crisis center to have her evaluated and she is already been pink slipped and sent to the emergency room. Patient does not relate any new stressors. She states she is having auditory hallucinations of what sounds like whispers telling her to kill herself and everybody would be better off. She also states she seen visual hallucinations of loved ones that are and that is how she knows are not real. She feels as if she wants to hurt somebody but it is not directed at anybody in particular. She has been doing superficial cutting but has not attempted to cut herself deeper but she does have a plan to cut her veins in her arms. Patient states that as a child she had been seen at [facility] for some depression but has never attempted suicide and has never had hallucinations before. PFSH [facility] Medical History Anemia Anxiety Arthritis Asthma Cancer Cancer Cardiology follow-up encounter [place]'s disease Depression Diabetes Dietary restriction Gastric reflux GERD (gastroesophageal reflux disease) Herniated disc History of echocardiogram History of irregular heartbeat History of pain when walking History of steroid therapy Injury of back Injury of head and neck Kidney stones Non-smoker Obesity Ovarian cyst PCOS (polycystic ovarian syndrome) Walker as ambulation aid Home Medications metformin 1,000 mg PO BID 06/25/18 [History Last Taken 01/30/21 08:00] ferrous sulfate 1 tab PO DAILY 05/16/19 [History Last Taken 01/24/21 08:00] cholecalciferol (vitamin D3) 125 mcg PO DAILY 05/17/19 [History Last Taken 01/24/21 08:00] epinephrine 0.3 mg IM X1 PRN #1 syringe 05/14/20 [Rx Last Taken 01/30/21 08:00] bupropion HCl 300 mg 24 hr tablet, extended release 300 mg PO QAM 07/14/20 [History Last Taken 01/30/21 08:00] Fenofibrate 48 mg PO DAILY 07/23/20 [History Last Taken 01/30/21 08:00] sitagliptin 100 mg PO DAILY 07/23/20 [History Last Taken 01/30/21 08:00] gabapentin 300 mg PO BID 08/19/20 [History Last Taken 01/30/21 08:00] sucralfate 1 gm PO BID 09/20/20 [History Last Taken 01/30/21 08:00] ondansetron 4 mg PO Q8H PRN PRN #10 tablet 09/28/20 [Rx Last Taken 01/30/21 08:00] lidocaine HCl [Lidocaine Viscous] 15 ml MUCOUS MEMBRANE Q8H PRN #100 ml 10/04/20 [Rx Last Taken 01/30/21 08:00] metoclopramide HCl [Reglan] 10 mg PO Q6H PRN #20 tab 10/04/20 [Rx Last Taken 01/30/21 08:00] fexofenadine 180 mg PO DAILY 11/21/20 [History Last Taken 01/30/21 08:00] pantoprazole 20 mg PO BID 11/21/20 [History Last Taken 01/30/21 08:00] benzonatate 200 mg PO BID PRN #20 cap 11/30/20 [Rx Last Taken 01/30/21 08:00] citalopram 40 mg PO DAILY 01/10/21 [History Last Taken 01/30/21 08:00] hydroxyzine HCl 25 mg PO QHS 01/10/21 [History Last Taken 01/30/21 08:00] metoprolol tartrate 25 mg PO DAILY 01/10/21 [History Last Taken 01/30/21 08:00] albuterol sulfate 1 puff INHALATION PRN PRN 01/25/21 [History Last Taken 01/30/21 08:00] albuterol sulfate 2.5 mg INHALATION PRN PRN 01/25/21 [History Last Taken 01/30/21 08:00] dextroamphetamine-amphetamine 20 mg PO DAILY 01/25/21 [History Last Taken 01/30/21 08:00] glimepiride 2 mg PO DAILY 01/25/21 [History Last Taken 01/30/21 08:00] lisinopril 5 mg PO DAILY 01/25/21 [History Last Taken 01/30/21 08:00] cyclobenzaprine 10 mg PO TID PRN 21 Days #30 tab 01/31/21 [Rx Last Taken Unknown] ondansetron 4 mg PO Q8H PRN PRN #10 tab 05/23/21 [Rx Last Taken Unknown] Allergy/AdvReac Type Severity Reaction Status Date / Time penicillin V potassium Allergy Mild Rash Verified 06/26/21 11:57 [From Pen-Vee K] brompheniramine maleate Allergy Shortness Verified 06/26/21 11:57 [From Dimetapp of breath (brompheniramine-PPA)] celery Allergy Swelling Verified 06/26/21 11:57 phenylpropanolamine HCl Allergy Shortness Verified 06/26/21 11:57 [From Dimetapp of breath (brompheniramine-PPA)] amoxicillin trihydrate AdvReac Intermediate Diarrhea Verified 06/26/21 11:57 [From Augmentin] potassium clavulanate AdvReac Intermediate Diarrhea Verified 06/26/21 11:57 [From Augmentin] dicyclomine HCl [From Bentyl] AdvReac Nausea/Vom/ Verified 06/26/21 11:57 Diarrhea plastic tape Allergy Rash Uncoded 06/26/21 11:57 FRUCTOSE AdvReac Nausea/Vom/ Uncoded 06/26/21 11:57 Diarrhea Family History Father Diabetes Mother Hypertension Grandmother Breast cancer 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 H/O endoscopy H/O oophorectomy H/O ovarian cystectomy H/O wisdom tooth extraction History of adrenal surgery History of tonsillectomy and adenoidectomy Hx of cholecystectomy Social History household members: family Smoking Status: Never smoker alcohol intake: current alcohol intake frequency: a few times a month substance use type: does not use seatbelt use: always do you feel safe at home: Yes ROS ROS ED Constitutional Constitutional ED: Denies chills or fever(s) Eyes Eyes: Denies blurry vision or diplopia ENT ENT ED: Denies rhinorrhea or sore throat Cardiovascular Cardiovascular: Denies chest pain Respiratory/Chest Respiratory/Chest: Denies cough or dyspnea Gastrointestinal Gastrointestinal: Denies abdominal pain, nausea or vomiting Genitourinary Genitourinary ED: Denies dysuria, hematuria or urinary frequency Musculoskeletal Musculoskeletal: Denies arthralgias or myalgias Neurologic Neurologic: Denies headache(s) or weakness Psychiatric Psychiatric: Reports depression, homicidal ideation, suicidal ideation and suicidal thoughts EXAM Physical Exam Const Vital Signs: 06/26/21 11:58 Temperature 98 F Temperature Source Temporal Pulse Rate 105 H Respiratory Rate 20 H Blood Pressure 165/91 H Blood Pressure Mean 115 Pulse Ox 98 Oxygen Delivery Method Room Air Positive well nourished General Appearance ED: NAD; Negative for pallor HEENT Reports moist mucous membranes normocephalic and atraumatic Eyes PERRL and EOMs intact bilaterally Neck supple Resp normal respiratory effort and clear to auscultation bilaterally Cardio Rhythm: regular rhythm Neuro oriented x3, CN's II-XII intact bilaterally and no sensory deficits noted Sensorium / Orientation: alert Motor Exam: strength 5/5 throughout Psych affect normal and speech normal Appearance: grossly normal Attitude: calm Activity / Motor Behavior: appropriate eye contact Thought Content: suicidality, homicidality and hallucination(s) Positive for auditory and visual Attention / Concentration: attention grossly intact Memory / Cognition: memory grossly intact Insight: questionable Judgement: questionable Skin General Skin Exam: Negative for jaundice or pallor Rashes: no rashes MDM MDM MDM Narrative Medical decision making narrative: Patient presenting with suicidal and homicidal ideation. She has not attempted as of yet to hurt herself or anybody else. She does have a plan to cut her veins on her wrist. She also has expressed that she wants to hurt someone but not anyone in particular. Patient has no history of this. She is also having hallucinations both auditory and visual which is concerning. Other than anxiety and depression and ADHD she does not have any psychiatric or behavioral history since she was a child and was at [facility]. Patient CBC is unremarkable. Renal function and electrolytes are normal. Glucose slightly elevated at 233 without anion gap. Urine drug screen is negative. EtOH is negative. hCG is negative. I feel the patient's symptoms are concerning enough that she needs to be hospitalized. I spoke with the child protective services social worker who will contact crisis who is already out of the pink slip. They will work on placement. Impression: 1. Suicidal ideation 2. Homicidal ideation 3. Auditory hallucinations 4. Visual hallucinations Lab Data Labs: Laboratory Results - last 24 hr 06/26/21 06/26/21 06/26/21 12:25 12:40 12:40 WBC 13.2 H RBC 5.00 Hgb 11.6 L Hct 37.0 MCV 74.0 L MCH 23.2 L MCHC 31.4 L RDW Std Deviation 42.1 RDW Coeff of Silvia 15.8 H Plt Count 377 MPV 9.6 Immature Gran % (Auto) 0.500 Neut % (Auto) 69.1 Lymph % (Auto) 22.1 [place] % (Auto) 5.2 Eos % (Auto) 2.5 Baso % (Auto) 0.6 Absolute Neuts (auto) 9.1 H Absolute Lymphs (auto) 2.93 Nucleated RBC % 0 Sodium 135 L Potassium 3.9 Chloride 102 Carbon Dioxide 26.0 Anion Gap 7 BUN 9 Creatinine 0.60 Estim Creat Clear Calc 147.10 Est GFR (MDRD) Af Amer 158 Est GFR (MDRD) Non-Af 130 BUN/Creatinine Ratio 15.0 Glucose 233 H Calcium 9.1 Serum , Qual Urine Opiates Screen NEGATIVE Urine Methadone Screen NEGATIVE Ur Barbiturates Screen NEGATIVE Ur Phencyclidine Scrn NEGATIVE Ur Amphetamines Screen NEGATIVE U Methamphetamin-MDMA NEGATIVE U Benzodiazepines Scrn NEGATIVE Urine Cocaine Screen NEGATIVE U Cannabinoids Screen NEGATIVE Ur Drug Screen Comment Ethyl Alcohol 06/26/21 06/26/21 12:40 12:40 WBC RBC Hgb Hct MCV MCH MCHC RDW Std Deviation RDW Coeff of Silvia Plt Count MPV Immature Gran % (Auto) Neut % (Auto) Lymph % (Auto) [place] % (Auto) Eos % (Auto) Baso % (Auto) Absolute Neuts (auto) Absolute Lymphs (auto) Nucleated RBC % Sodium Potassium Chloride Carbon Dioxide Anion Gap BUN Creatinine Estim Creat Clear Calc Est GFR (MDRD) Af Amer Est GFR (MDRD) Non-Af BUN/Creatinine Ratio Glucose Calcium Serum , Qual NEGATIVE Urine Opiates Screen Urine Methadone Screen Ur Barbiturates Screen Ur Phencyclidine Scrn Ur Amphetamines Screen U Methamphetamin-MDMA U Benzodiazepines Scrn Urine Cocaine Screen U Cannabinoids Screen Ur Drug Screen Comment Ethyl Alcohol < 3.0 Discharge Plan Triage Chief Complaint: Suicidal ED Provider: Eliseo Prather Dx/Rx/DC Orders Prescriptions: No Action bupropion HCl [Wellbutrin XL] 300 mg tablet extended release 24 hr 300 mg PO QAM RF: 0 metformin 1,000 MG tablet 1,000 mg PO BID RF: 0 ferrous sulfate 325 MG tablet 1 tab PO DAILY RF: 0 cholecalciferol (vitamin D3) 125 MCG capsule 125 mcg PO DAILY RF: 0 epinephrine 0.3 MG syringe 0.3 mg IM X1 PRN (Reason: Anaphylaxis) Qty: 1 RF: 0 sitagliptin 100 MG tablet 100 mg PO DAILY RF: 0 Fenofibrate 48 mg PO DAILY RF: 0 gabapentin 100 MG capsule 300 mg PO BID RF: 0 sucralfate 1 GM tablet 1 gm PO BID RF: 0 ondansetron 4 MG tablet 4 mg PO Q8H PRN PRN (Reason: Nausea) Qty: 10 RF: 0 metoclopramide HCl [Reglan] 10 mg tablet 10 mg PO Q6H PRN (Reason: nausea and vomiting) Qty: 20 RF: 0 lidocaine HCl [Lidocaine Viscous] 2 % solution 15 ml mucous membrane Q8H PRN (Reason: pain) Qty: 100 RF: 0 fexofenadine 180 mg Tablet 180 mg PO DAILY RF: 0 pantoprazole 20 mg Tablet,Delayed Release (Dr/Ec) 20 mg PO BID RF: 0 benzonatate 200 mg capsule 200 mg PO BID PRN (Reason: cough) Qty: 20 RF: 0 albuterol sulfate 2.5 mg /3 mL (0.083 %) solution for nebulization 2.5 mg inhalation PRN PRN (Reason: ASTHMA) RF: 0 glimepiride 2 mg tablet 2 mg PO DAILY RF: 0 dextroamphetamine-amphetamine 20 mg capsule,extended release 24hr 20 mg PO DAILY RF: 0 lisinopril 5 mg tablet 5 mg PO DAILY RF: 0 albuterol sulfate 90 mcg/actuation HFA aerosol inhaler 1 puff INHALATION PRN PRN (Reason: ASTHMA) RF: 0 cyclobenzaprine 10 mg tablet 10 mg PO TID PRN (Reason: muscle spasm) 21 Days Qty: 30 RF: 0 metoprolol tartrate 25 mg Tablet 25 mg PO DAILY RF: 0 citalopram 40 mg Tablet 40 mg PO DAILY RF: 0 hydroxyzine HCl 25 mg Tablet 25 mg PO QHS RF: 0 ondansetron 4 mg tablet,disintegrating 4 mg PO Q8H PRN PRN (Reason: Nausea) Qty: 10 RF: 0 Primary Care Provider: Miguelito Unger
--- NOTE | 2021-06-26 14:37 | CASEMGMT ---
Social Work Patient evaluated by Crisis in community and found to meed criteria for inpatient psychiatric placement, per crisis. Dr. Prather agrees with crisis recommendations. Patient was [place] Slipped to ED. Telephone call to Lyndsay Cornejo. This psychotherapist social worker faxed clinical information as per Dr. Prather patient is now medically cleared. Lyndsay to work on placement. Social Work to assist as needed. Sahara Nixon MSW, MAURY-S
--- NOTE | 2021-06-26 14:38 | CASEMGMT ---
Social Work Telephone call from patient mother, Rajani. Rajani is patient HCPOA. Rajani inquired about process of inpatient psychiatric placement. This social scientist explaining process to Rajani. Rajani thanked this social scientist. Will continue to follow. Sahara DREW, ARVIND
[2021-06-26 15:14] VITALS: PULSE 72; RESP 16; O2SAT 98
--- NOTE | 2021-06-26 15:14 | CASEMGMT ---
Social Work Telephone call from patient mother, Rajani. Rajani reports that patient just text me and informed Rajani that patient was given a bowl of soup that had celery in it. Rajani reports that patient is allergic to celery with allergic reaction being swelling. Rajani reports to believe that patient has not eaten the soup. This manager social responsibility notified nursing. Nursing to patient room and removed soup. This manager social responsibility then assisting nursing by contacting dietary services, dietary report to have missed this and will make corrections. Dietary inquired about what type of soup patient would like, patient request tomato soup. Dietary to send tomato soup up. Nursing updated on all above. Sahara Nixon [employer] ENGINEER, ARVIND
[2021-06-26 16:23] VITALS: BP 143/79; PULSE 84; RESP 16; O2SAT 99
--- NOTE | 2021-06-26 16:52 | NURSING ---
CALLED [facility], ETA IS 4 HRS
--- NOTE | 2021-06-26 17:02 | CASEMGMT ---
Social Work [facility] from [facility]. Patient has been accepted to [facility] in [place], [place]. Patient accepted by Dr. Berry to the Discovery Unit. Nurse to nurse: [phone]. Medical team and patient updated. Patient agreeable to this secondary social studies teacher contacting patient motherRajani about above information. Telephone call to Rajani Gerard updated on above. PLAN: Discharge to [facility]. Sahara DREW, ARVIND
[2021-06-26 17:04] VITALS: BP 160/88; PULSE 100; RESP 18; O2SAT 98
[2021-06-26 17:38] VITALS: BP 158/84; PULSE 82; RESP 18; O2SAT 98
[2021-06-26 20:20] VITALS: PULSE 95; RESP 18; O2SAT 96
[2021-06-26] MEDS: metFORMIN (XR) 500 MG Tablet 1000 MG PO (21:10)
== END 2021-06-26 21:26 ==
PROVIDERS: Emergency Provider Student in an Organized Health Care Education/Training Program; PCP Family Medicine; Visit Provider Student in an Organized Health Care Education/Training Program
DX: R45.851 Suicidal ideations (principal); E11.65 Type 2 diabetes mellitus with hyperglycemia; Z68.44 Body mass index [BMI] 60.0-69.9, adult; R45.850 Homicidal ideations; R44.0 Auditory hallucinations; R44.1 Visual hallucinations; E66.9 Obesity, unspecified; F32.A Depression, unspecified; F41.9 Anxiety disorder, unspecified; F90.9 Attention-deficit hyperactivity disorder, unspecified type; Z79.899 Other long term (current) drug therapy; Z79.84 Long term (current) use of oral hypoglycemic drugs
CPT/HCPCS: 80048; 80307; 82077; 84703; 85025; 87426; 99285

== ENCOUNTER 2021-07-16 20:26 | Emergency (ER) | payer OTHER, MEDICAID, SELFPAY ==
[2021-07-16 20:27] VITALS: BP 148/83; PULSE 108; RESP 18; TEMP 35.6; O2SAT 97; BMI 66.4
--- NOTE | 2021-07-16 21:03 | EX.ED.VIS.PS ---
HPI HPI - Psych History of Present Illness Chief Complaint: Suicidal Detail of Chief Complaint: My mind is messed up Informant: patient and parent Onset/Context/Timing Onset: Days (Increased past 2 days) Conflict: Family, Work, Financial and - (Patient states I do not know ) Timing: Continuous and Waxes and wanes Current Severity: Moderate Maximum Severity: Severe Relieved by: Nothing Associated Symptoms Associated Symptoms - Psych: Positive for Depressed, Change in Eating, Change in sleeping, Decreased Interest, Suicidal Thoughts, Visual Hallucinations and Auditory Hallucinations Specific plan (suicidal thought): Superficial cuts to right and left forearm yesterday and today Narrative Narrative: Patient is a 25-year-old woman with history of depression and anxiety who was recently admitted and had medication added to her present regimen. She has been compliant with the medicine. She states she does not know why she feels like this. She states she feels stupid because she does not know why. Mother states there is history of mild depression anxiety in the family but nothing significant. There is been no complaints of fever, chills night sweats. She denies ocular, visual auditory symptoms. She denies head pain or headache. She denies upper respiratory symptoms. She denies GI symptoms. She denies urologic symptoms. Tetanus is up-to-date. Prior similar symptoms: Yes Recent Illness/Hospitalization: Yes PFSH PFS Medical History Anemia Anxiety Arthritis Asthma Cancer Cancer Cardiology follow-up encounter Abner's disease Depression Diabetes Dietary restriction Gastric reflux GERD (gastroesophageal reflux disease) Herniated disc History of echocardiogram History of irregular heartbeat History of pain when walking History of steroid therapy Injury of back Injury of head and neck Kidney stones Non-smoker Obesity Ovarian cyst PCOS (polycystic ovarian syndrome) Walker as ambulation aid Home Medications metformin 1,000 mg PO BID 06/25/18 [History Last Taken 01/30/21 08:00] ferrous sulfate 1 tab PO DAILY 05/16/19 [History Last Taken 01/24/21 08:00] cholecalciferol (vitamin D3) 125 mcg PO DAILY 05/17/19 [History Last Taken 01/24/21 08:00] epinephrine 0.3 mg IM X1 PRN #1 syringe 05/14/20 [Rx Last Taken 01/30/21 08:00] bupropion HCl 300 mg 24 hr tablet, extended release 300 mg PO QAM 07/14/20 [History Last Taken 01/30/21 08:00] Fenofibrate 48 mg PO DAILY 07/23/20 [History Last Taken 01/30/21 08:00] sitagliptin 100 mg PO DAILY 07/23/20 [History Last Taken 01/30/21 08:00] gabapentin 300 mg PO BID 08/19/20 [History Last Taken 01/30/21 08:00] sucralfate 1 gm PO BID 09/20/20 [History Last Taken 01/30/21 08:00] ondansetron 4 mg PO Q8H PRN PRN #10 tablet 09/28/20 [Rx Last Taken 01/30/21 08:00] lidocaine HCl [Lidocaine Viscous] 15 ml MUCOUS MEMBRANE Q8H PRN #100 ml 10/04/20 [Rx Last Taken 01/30/21 08:00] metoclopramide HCl [Reglan] 10 mg PO Q6H PRN #20 tab 10/04/20 [Rx Last Taken 01/30/21 08:00] fexofenadine 180 mg PO DAILY 11/21/20 [History Last Taken 01/30/21 08:00] pantoprazole 20 mg PO BID 11/21/20 [History Last Taken 01/30/21 08:00] benzonatate 200 mg PO BID PRN #20 cap 11/30/20 [Rx Last Taken 01/30/21 08:00] citalopram 40 mg PO DAILY 01/10/21 [History Last Taken 01/30/21 08:00] hydroxyzine HCl 25 mg PO QHS 01/10/21 [History Last Taken 01/30/21 08:00] metoprolol tartrate 25 mg PO DAILY 01/10/21 [History Last Taken 01/30/21 08:00] albuterol sulfate 1 puff INHALATION PRN PRN 01/25/21 [History Last Taken 01/30/21 08:00] albuterol sulfate 2.5 mg INHALATION PRN PRN 01/25/21 [History Last Taken 01/30/21 08:00] dextroamphetamine-amphetamine 20 mg PO DAILY 01/25/21 [History Last Taken 01/30/21 08:00] glimepiride 2 mg PO DAILY 01/25/21 [History Last Taken 01/30/21 08:00] lisinopril 5 mg PO DAILY 01/25/21 [History Last Taken 01/30/21 08:00] cyclobenzaprine 10 mg PO TID PRN 21 Days #30 tab 01/31/21 [Rx Last Taken Unknown] ondansetron 4 mg PO Q8H PRN PRN #10 tab 05/23/21 [Rx Last Taken Unknown] Allergy/AdvReac Type Severity Reaction Status Date / Time penicillin V potassium Allergy Mild Rash Verified 06/26/21 11:57 [From Pen-Vee K] brompheniramine maleate Allergy Shortness Verified 06/26/21 11:57 [From Dimetapp of breath (brompheniramine-PPA)] celery Allergy Swelling Verified 06/26/21 11:57 phenylpropanolamine HCl Allergy Shortness Verified 06/26/21 11:57 [From Dimetapp of breath (brompheniramine-PPA)] amoxicillin trihydrate AdvReac Intermediate Diarrhea Verified 06/26/21 11:57 [From Augmentin] potassium clavulanate AdvReac Intermediate Diarrhea Verified 06/26/21 11:57 [From Augmentin] dicyclomine HCl [From Bentyl] AdvReac Nausea/Vom/ Verified 06/26/21 11:57 Diarrhea plastic tape Allergy Rash Uncoded 06/26/21 11:57 FRUCTOSE AdvReac Nausea/Vom/ Uncoded 06/26/21 11:57 Diarrhea Family History Father Diabetes Mother Hypertension Grandmother Breast cancer 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 H/O endoscopy H/O oophorectomy H/O ovarian cystectomy H/O wisdom tooth extraction History of adrenal surgery History of tonsillectomy and adenoidectomy Hx of cholecystectomy Social History household members: family Smoking Status: Never smoker alcohol intake: current alcohol intake frequency: a few times a month substance use type: does not use seatbelt use: always do you feel safe at home: Yes ROS ROS ED Constitutional Constitutional ED: Denies chills, fever(s), subjective, sweats or weight loss Eyes Eyes: Denies blurry vision, change in vision or diplopia ENT ENT ED: Denies ear pain, rhinorrhea or sore throat Cardiovascular Cardiovascular: Denies chest pain, orthopnea, palpitations or racing heartbeat Respiratory/Chest Respiratory/Chest: Denies cough, dyspnea, dyspnea on exertion or orthopnea Gastrointestinal Gastrointestinal: Denies abdominal pain, diarrhea, nausea or vomiting Genitourinary Genitourinary ED: Denies dysuria, hematuria or urinary frequency Musculoskeletal Musculoskeletal: Denies arthralgias, back pain, myalgias or neck pain Integumentary Reports Abrasions; Denies abscess or rash Neurologic Neurologic: Denies headache(s), paresthesias or weakness Psychiatric Psychiatric: Reports anxiety, depression, suicidal ideation, suicidal thoughts and other Details: Admits to auditory hallucinations presently Hematologic/Lymphatic Hematologic/Lymphatic: Denies easy bleeding or easy bruising EXAM Physical Exam Const Vital Signs: 07/16/21 20:27 07/16/21 22:00 Temperature 96.0 F L Temperature Source Temporal Pulse Rate 108 H Respiratory Rate 18 15 Blood Pressure 148/83 H Blood Pressure Mean 104 Pulse Ox 97 Oxygen Delivery Method Room Air Positive well nourished, well developed and obese General Appearance ED: well developed and other Patient stares straight ahead. ; Negative for pallor Nutritional Appearance: obese HEENT Reports TM's clear and moist mucous membranes normocephalic and atraumatic; Negative for tenderness Tympanic Membrane ED: Yes TM's clear Eyes PERRL and EOMs intact bilaterally General Eye ED: Negative for pale conjunctiva or scleral icterus Neck no lymphadenopathy, supple and no JVD Resp normal respiratory effort and clear to auscultation bilaterally Cardio S1 normal heart sound, S2 normal heart sound and no murmurs Rate: tachycardic Rhythm: regular rhythm GI non-tender, non-distended and no masses Auscultation: normoactive bowel sounds Palpation: soft Back/Spine no CVA tenderness Cervical Spine: Negative for cervical spine tenderness Thoracic Spine / Upper Back: Negative for thoracic spinal tenderness Lumbar Spine / Lower Back: Negative for lumbar spinal tenderness Extremity normal to inspection General Extremety ED: Negative for edema or tenderness General Extremity: Negative for edema Neuro oriented x3 and CN's II-XII intact bilaterally Sensorium / Orientation: alert Psych Appearance: grossly normal Attitude: calm and withdrawn Activity / Motor Behavior: psychomotor slowing Speech: minimal and slow Mood & Affect: depressed, sad and flat affect Thought Process: normal thought process Thought Content: suicidality, No homicidality, No phobia(s) and hallucination(s) Positive for auditory and visual Attention / Concentration: attention grossly intact Memory / Cognition: memory grossly intact and memory grossly impaired Insight: limited Judgement: limited Skin General Skin Exam: Negative for jaundice or pallor Lesions: no lesions Rashes: no rashes Trauma: abrasion MDM MDM MDM Narrative Medical decision making narrative: Patient with depression suicidal thoughts and hallucination. Will obtain appropriate work-up for evaluation and clear patient for hospitalization for psychiatric care. Mother states she is not able to be seen until August at the crisis center. She had additional meds added to her present regimen. Mother states part of her contract is that her mother gives her the meds. She has been taking them as scheduled. The licensed real estate broker has been working on disposition. Disposition is pending. The evening physician being made aware of patient's history physical and need for inpatient therapy. In my professional medical opinion patient has no metabolic or infectious process causing her symptoms and or preventing her from receiving care at a psychiatric facility. She is medically cleared . Lab Data Attestation: I reviewed the patient's lab results. Labs: Laboratory Results - last 24 hr 07/16/21 07/16/21 07/16/21 20:50 21:40 21:40 WBC 17.5 H RBC 4.52 Hgb 10.9 L Hct 35.1 L MCV 77.7 L MCH 24.1 L MCHC 31.1 L RDW Std Deviation 45.2 H RDW Coeff of Silvia 16.2 H Plt Count 420 MPV 9.6 Immature Gran % (Auto) 0.500 Neut % (Auto) 69.9 Lymph % (Auto) 21.5 [place] % (Auto) 5.6 Eos % (Auto) 2.1 Baso % (Auto) 0.4 Absolute Neuts (auto) 12.2 H Absolute Lymphs (auto) 3.76 Nucleated RBC % 0 Sodium 136 Potassium 3.8 Chloride 104 Carbon Dioxide 26.0 Anion Gap 6 BUN 11 Creatinine 0.79 Estim Creat Clear Calc 111.72 Est GFR (MDRD) Af Amer 116 Est GFR (MDRD) Non-Af 96 BUN/Creatinine Ratio 14.0 Glucose 197 H Calcium 8.8 Serum , Qual Urine Opiates Screen NEGATIVE Urine Methadone Screen NEGATIVE Ur Barbiturates Screen NEGATIVE Ur Phencyclidine Scrn NEGATIVE Ur Amphetamines Screen NEGATIVE U Methamphetamin-MDMA POSITIVE H U Benzodiazepines Scrn NEGATIVE Urine Cocaine Screen NEGATIVE U Cannabinoids Screen NEGATIVE Ur Drug Screen Comment Ethyl Alcohol 07/16/21 07/16/21 21:40 21:40 WBC RBC Hgb Hct MCV MCH MCHC RDW Std Deviation RDW Coeff of Silvia Plt Count MPV Immature Gran % (Auto) Neut % (Auto) Lymph % (Auto) [place] % (Auto) Eos % (Auto) Baso % (Auto) Absolute Neuts (auto) Absolute Lymphs (auto) Nucleated RBC % Sodium Potassium Chloride Carbon Dioxide Anion Gap BUN Creatinine Estim Creat Clear Calc Est GFR (MDRD) Af Amer Est GFR (MDRD) Non-Af BUN/Creatinine Ratio Glucose Calcium Serum , Qual NEGATIVE Urine Opiates Screen Urine Methadone Screen Ur Barbiturates Screen Ur Phencyclidine Scrn Ur Amphetamines Screen U Methamphetamin-MDMA U Benzodiazepines Scrn Urine Cocaine Screen U Cannabinoids Screen Ur Drug Screen Comment Ethyl Alcohol < 3.0 Discharge Plan Triage Chief Complaint: Suicidal ED Provider: Ehsan Campbell Dx/Rx/DC Orders Clinical Impression: Depression with suicidal ideation, Continuous auditory hallucinations, Episodes of formed visual hallucinations, Intentional self-harm Prescriptions: No Action bupropion HCl [Wellbutrin XL] 300 mg tablet extended release 24 hr 300 mg PO QAM RF: 0 metformin 1,000 MG tablet 1,000 mg PO BID RF: 0 ferrous sulfate 325 MG tablet 1 tab PO DAILY RF: 0 cholecalciferol (vitamin D3) 125 MCG capsule 125 mcg PO DAILY RF: 0 epinephrine 0.3 MG syringe 0.3 mg IM X1 PRN (Reason: Anaphylaxis) Qty: 1 RF: 0 sitagliptin 100 MG tablet 100 mg PO DAILY RF: 0 Fenofibrate 48 mg PO DAILY RF: 0 gabapentin 100 MG capsule 300 mg PO BID RF: 0 sucralfate 1 GM tablet 1 gm PO BID RF: 0 ondansetron 4 MG tablet 4 mg PO Q8H PRN PRN (Reason: Nausea) Qty: 10 RF: 0 metoclopramide HCl [Reglan] 10 mg tablet 10 mg PO Q6H PRN (Reason: nausea and vomiting) Qty: 20 RF: 0 lidocaine HCl [Lidocaine Viscous] 2 % solution 15 ml mucous membrane Q8H PRN (Reason: pain) Qty: 100 RF: 0 fexofenadine 180 mg Tablet 180 mg PO DAILY RF: 0 pantoprazole 20 mg Tablet,Delayed Release (Dr/Ec) 20 mg PO BID RF: 0 benzonatate 200 mg capsule 200 mg PO BID PRN (Reason: cough) Qty: 20 RF: 0 albuterol sulfate 2.5 mg /3 mL (0.083 %) solution for nebulization 2.5 mg inhalation PRN PRN (Reason: ASTHMA) RF: 0 glimepiride 2 mg tablet 2 mg PO DAILY RF: 0 dextroamphetamine-amphetamine 20 mg capsule,extended release 24hr 20 mg PO DAILY RF: 0 lisinopril 5 mg tablet 5 mg PO DAILY RF: 0 albuterol sulfate 90 mcg/actuation HFA aerosol inhaler 1 puff INHALATION PRN PRN (Reason: ASTHMA) RF: 0 cyclobenzaprine 10 mg tablet 10 mg PO TID PRN (Reason: muscle spasm) 21 Days Qty: 30 RF: 0 metoprolol tartrate 25 mg Tablet 25 mg PO DAILY RF: 0 citalopram 40 mg Tablet 40 mg PO DAILY RF: 0 hydroxyzine HCl 25 mg Tablet 25 mg PO QHS RF: 0 ondansetron 4 mg tablet,disintegrating 4 mg PO Q8H PRN PRN (Reason: Nausea) Qty: 10 RF: 0 Primary Care Provider: Miguelito Unger Referrals: Miguelito Unger MD [Primary Care Provider] - Disposition Disposition: Psychiatric Hospital or Unit
[2021-07-16 21:50] LABS: Amphetamine Urine VISTA NEGATIVE (<1000 ng/mL); Barbiturate Urine VISTA NEGATIVE (< 200 ng/mL); Benzodiazepine Urine VISTA NEGATIVE (< 200 ng/mL); Cocaine Urine VISTA NEGATIVE (< 300 ng/mL); Ecstacy Urine VISTA POSITIVE (< 500 ng/mL); Methadone Urine VISTA NEGATIVE (< 300 ng/mL); PCP Urine VISTA NEGATIVE (< 25 ng/mL); THC Urine VISTA NEGATIVE (< 50 ng/mL); Vista UDS pH Range 5
[2021-07-16 21:51] LABS: Absolute Lymphocyte Count 3.76 X10^3/uL (0.83-4.51); Absolute Neutrophil Count 12.2 X10^3/uL (2.0-7.7); Basophil# 0.07 X10^3/uL; Basophil% 0.4 % (0-1); Eosinophil# 0.36 X10^3/uL; Eosinophils% 2.1 % (0-5); Hematocrit 35.1 % (37-47); Hemoglobin 10.9 g/dL (12.0-15.0); Lymphocyte # 3.76 X10^3/ul (0.83-4.51); Lymphocyte % 21.5 % (19-41); Mean Corp Hgb Conc 31.1 g/dL (32-36); Mean Corpuscular Hgb 24.1 pg (27.0-32.0); Mean Corpuscular Volume 77.7 fL (81-99); Mean Platelet Vol. 9.6 fl (6.2-12.0); Monocyte# 0.98 X10^3/uL; Monocyte% 5.6 % (0-10); NRBC Flagged by Analyzer 0 % (0-5); Neutrophil # 12.23 X10^3/uL (2.7-7.7); Neutrophil % 69.9 % (47-70); Platelet Count 420 K/mm3 (150-450); RBC Distribution Width CV 16.2 % (11.6-14.6); RBC Distribution Width SD 45.2 fl (35.1-43.9); Red Blood Count 4.52 M/mm3 (4.2-5.4); White Blood Count 17.5 K/mm3 (4.4-11.0)
[2021-07-16] MEDS: Ondansetron ODT 4 MG Tablet PO (21:52)
[2021-07-16 22:00] VITALS: RESP 15
[2021-07-16 22:05] LABS: Anion Gap 6 (5-15); BUN 11 mg/dL (7-18); Calcium,Total 8.8 mg/dL (8.5-10.1); Chloride 104 mmol/L (98-107); Creatinine, Serum 0.79 mg/dL (0.55-1.02); EST Glomerular Filtration Rate 96 mL/min (>60); Est Glom Filt Rate - Afr Amer 116 mL/min (>60); Estimated Creatinine Clearance 111.72 ml/min; Glucose 197 mg/dL (74-106); Potassium 3.8 mmol/L (3.5-5.1); Sodium Level 136 mmol/L (136-145)
--- NOTE | 2021-07-16 22:11 | CM.ED ---
Social Work Psychiatric Assessment: Referral Reason: Mental Health Referral Source: Chief Complaint: Patient was interviewed by this medical underwriter. Initially she was comfortable with this medical underwriter interviewing her in the presence of her mother but during the interview asked that her mother step outside. Patient said that she is at the ED as ?I want to ?. Patient said that she has felt this way for ?a very long time?. Patient said that she has felt this way ?before I came here to go to [facility]?. Patient said that her plan, regarding suicide, is to ?trying to slit my wrist and I told my friend I wanted to slit my throat?. Patient said that he had a conversation with her friend emily where she told her friend that she wanted to slit her throat. Patient said that she told her mom she wanted to and wanted to cut herself and her mom brought her to the ED. Marital /Social History: Patient is single. No children. Living Situation: Patient reports that she lives in a house with her mom, dad, and brother. Supports/Resources: Patient said that she ?doesn?t feel like talking to anybody?. Patient said that she feels her friends are ?not good supports?. History: Denied Education and Employment History: Patient graduated high school and the [employer]. Patient said that she has ADHD and thus had a Section 5. 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 Patient is currently employed at the [employer] and said, ?I love it?. Patient did note that she has been ?struggling recently? at her job. Mental Health: Patient reports that after going to [facility] she had an intake appointment on 07/05/21 and then had a crisis appointment on ThursdayJuly 09. Patient said that she was told that she would not be able to see a counselor ?till a case operator contacts me and that could be September or October?. Patient said that she was also going for intake to the [facility] IOP program on 07/18/21 and that patient it may be 2-3 weeks until she can begin that program. Triggers: Patient said that her triggers are ?my job, voices when someone yells at me?. SW asked if someone had yelled at her and she said, ?my friend Mariposa diaz?. Coping Skills: ?Cutting and renee painting?. Abuse Issues: Denied Substance Abuse: Patient denied substance abuse but then said, ?I really wanted a tequila tonight and said that she drinks a tequila every once and awhile but not enough to say I drink?. Patient said that she drinks ?one and awhile?. Risk to Self/Others Suicidal: Patient reports she is suicidal. She reports a plan to slit her throat or wrist. Patient said that in the past she has tried to overdose on melatonin, ?a long time ago?, but her friend came and got her an took her to her friend?s house. Homicidal: Denied Violence: Patient reports she cuts herself, smashes her head on the wall and scratches face. Patient said that ?sometimes I throw stuff and break stuff?. Mental Status Exam: Orientation: x4 Memory: Intact Appearance/General Behavior: Poor eye contact. Wearing hospital gown Mood/Affect: Patient reports that her mood is ?sad and angry?. Patient appears to have depressed mood and affect. Patient reports that her sleep is good, and the trazodone is helping. Patient said that her appetite is ?less than normal?. Communication Pattern: Responds to questions. Thought Process: Patient reports she hears the voice of her ?papa? who and the voice says, ?we miss you... come be with us... no one else wants you down there?. 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 Patient said that she has been seeing the 4-year-old ?a lot? at work. Patient said that her AH?s are of ?loved ones that ? General Intellectual Functioning: Average Judgment: Impaired Insight: Impaired Recommendation: Patient reports ?I don?t feel safe at home?. Patient said that her mom took medication and knives ?but there are plenty of different ways to hurt myself?. Patient needs inpatient psych hospitalization for stabilization. Carissa KAPLAN
[2021-07-16 22:22] LABS: Internal QC Validated? YES +Cl - CLEAR BKGD; Pregnancy, Serum, hCG Quali. NEGATIVE Negative
[2021-07-16 22:24] LABS: Alcohol, Blood (Medical)-Serum < 3.0 mg/dL
--- NOTE | 2021-07-16 22:26 | CM.ED ---
LEONARDO Note SW called [facility] as patient had previously been there in June. LEONARDO spoke to admission staff who advised to fax the referral. LEONARDO faxed referral to [facility] and [facility]. LEONARDO updated patient and mother regarding referrals to [facility] and [facility]. Plan: Inpatient psych hospitalization Carissa KAPLAN
[2021-07-16] MEDS: LORazepam 1 MG Tablet PO (22:58)
[2021-07-16 23:00] VITALS: RESP 15
[2021-07-17] VITALS (10 sets, daily range): BP systolic 139–148; BP diastolic 62–95; PULSE 91–116; RESP 14–20; TEMP 36.7; O2SAT 96–99
--- NOTE | 2021-07-17 00:44 | ED.RN ---
patient has been accepted to [facility] adult unit nurse to nurse [phone]
[2021-07-17] MEDS: Ondansetron ODT 4 MG Tablet PO (04:59)
--- NOTE | 2021-07-17 08:27 | NURSING ---
CALLED INQUIRING ABOUT [facility], ETA IS ABOUT 15 TO 20 MIN
[2021-07-17] MEDS: LORazepam 1 MG Tablet PO (08:39)
== END 2021-07-17 09:09 ==
PROVIDERS: Emergency Provider Emergency Medicine; PCP Family Medicine; Visit Provider Emergency Medicine
DX: F32.A Depression, unspecified (principal); E11.9 Type 2 diabetes mellitus without complications; R45.851 Suicidal ideations; F41.9 Anxiety disorder, unspecified; R44.0 Auditory hallucinations; E66.9 Obesity, unspecified; K21.9 Gastro-esophageal reflux disease without esophagitis; J45.909 Unspecified asthma, uncomplicated; Z79.899 Other long term (current) drug therapy
CPT/HCPCS: 36415; 80048; 80307; 82077; 84703; 85025; 87426; 99285

== ENCOUNTER 2021-07-30 08:00 | Outpatient (RCR) | payer OTHER, MEDICAID, SELFPAY ==
--- NOTE | 2021-07-30 08:28 | BH.COMM_ITS ---
Communication Note - Communication with Client Communication Note: Met with patient to complete initial paperwork. No sig nificant changes since pre-admission screening. Completed [place] Suicide Screening. Moderate risk. Pt has a hx of one interrupted attempt in which pt had plans to overdose on melatonin but was stopped by a friend. Additionally, reports a hx of self-harming via cutting her wrists and one 2 occasions reports ambivalence as to whether her behaviors would result in . Hx of self- harming via cutting her forearms since age 14. Client additionally had a psychiatric admission from June 27 to July 04, 2021 and again she was admitted from July 17 to July 22, 2021 for suicidal ideation with a plan to cut her throat and wrists. Client denies access to any lethal means and reports her mother as removed all sharp objects including her diabetes insulin pin from immediate access and client is unsure as to where her mother is keeping these items. Denies hx of HI, plan or intent. Denies any current SI/HI. Case discussed with Dr. Rodriguez with plan to admit to IOP level of care with dx of Bipolar 1 disorder, most recent episode depressed, severe possibly with psychosis F31.5.
--- NOTE | 2021-07-30 09:00 | BH.SGPN.GN ---
Behaviors/Verbalizations/Mental Status: []Client alert and oriented, neatly dressed and groomed. Eye contact good. Motor activity restless-tapping foot. Speech within normal limits-soft. Affect flat, mood anxious. Thoughts linear, logical, no signs of hallucinations or delusions. Reviewed client?s symptom tracker, no risk for suicidal ideation, plan, or intent as of 07/30/21 Client Response/Progress/Benefit: []Client responded well to session, first day of PHP tx and anxious which is to be expected. Client declined to share during check-in this morning, but she was attentive throughout. Client received supportive statements and encouragement from peers on IOP tx and what to expect. Client appeared to benefit from connecting with peers. Client will continue PHP tx to prevent decompensation, maintain safety, and gain healthy supports. Narrative Note: []
--- NOTE | 2021-07-30 10:08 | BH.SGPN.GN ---
Behaviors/Verbalizations/Mental Status: [] Client alert and oriented, casually dressed and groomed. Eye contact fair to good. Motor activity appropriate. Speech within normal limits. Affect congruent, mood anxious and dysthymic. Thoughts linear, logical, no signs of hallucinations or delusions. Client Response/Progress/Benefit: [] Client responded well to session AEB client taking notes, listening attentively to others, and providing some input throughout despite reports of feeling anxious. Group discussed the origin of coping skills, examples of unhealthy coping, and why we utilize them. Client identified negative self-talk and not knowing what to do as personal barriers to using healthy coping skills. Participated in experiential activity, providing possible solutions and supportive feedback to peers. Client was engaged throughout discussion of the importance of external supports and a strong variety of internal coping skills. Appeared to benefit from increased knowledge of internal coping skills and identifying personal barriers to consistent skill application. Client will continue PHP treatment to promote maintain safety, open communication with supports, improve distress tolerance skills, as well as prevent decompensation. Narrative Note: []
--- NOTE | 2021-07-30 10:28 | BH.MTP ---
Master Treatment Plan - Patient Information Program Physician:: Dr. Lluvia Rodriguez Primary Therapist:: MAURY Mckeon - Psychiatric Diagnoses Psychiatric Diagnoses:: 1. Bipolar 1 disorder, most recent episode depressed, severe possibly with psychosis. 2. Cluster B traits. 3. History of ADHD, inattentive type. 4. Rule out alcohol use disorder. 5. Anxiety disorder, NOS Diagnosis Code(s):: F 31.5 - Estimated LOS Estimated LOS (in weeks):: 1 Problem/Goal #1 - Problem/Goal #1 Stated Goal:: Client will reduce depression causing passive thoughts of and self-harming urges, while learning healthy coping skills to better improve mood stability. Description of Barriers: Client verbalizing a lot of displaced guilt and fear of being a burden. She struggles with independent skill application and reports hx of treatment ineffectiveness. Client has a hx of impulsivity and poor emotion regulation. Functional Impact: The patient is a 26-year-old female with a history of bipolar disorder and depression who was referred to the [facility] behavioral health partial hospitalization program following 2 psychiatric admissions in the past month. The patient had a psychiatric admission from June 27 to July 04, 2021 and again she was admitted from July 17 to July 22, 2021 for suicidal ideation with a plan to cut her throat and wrists. Pt says her symptoms have been worsening for the past 5 months but does not know of any trigger for this. She has a history of self-harm for several years and has cut her wrist and scratched her face at times, last reported on 07/22. In addition when she gets angry she bangs her head against a wall. She states that her mother put all knives and medications out of her reach and denies any access to guns. The patient says some of her stressors are losing 5 people that she liked since 2013. The patient's ?[place]? several years ago and she states that she has had auditory hallucinations of her grandfather's voice telling her to kill herself and these have occurred since the past 5 months. She says these hallucinations only occur when she is very upset and she has not heard these voices since her discharge from the hospital on July 22, 2021. The patient also describes being paranoid and says that she is certain that she sees people and that there are people outside of her house watching her, resulting in pt covering all her bedroom windows. At time of admission, pt endorses sadness, crying spells, isolating, anhedonia, low passive thoughts of , thoughts of self-harm, low energy, worry, and feelings of being a burden. Pt?s sx are impacting her social, occupational, and ability to function at baseline resulting in PHP level of care. - Objectives Objective #1 Stated Objective: Work with client to develop a ?crisis plan? which includes emergency telephone numbers, 3-4 coping strategies for emotional distress, lists of supports, positive aspects of life, and motivations. Work with client to identify 3-4 sources or triggers to emotional distress to increase insight. Identify 3 effective thought-stopping skills to utilize. Interventions: Therapist will provide list of crisis phone numbers. Therapist will work with client to identify her motivations to live as well as effective coping strategies and steps to take in time of mental health crisis. Discharge Criteria: Client will have achieved this goal once she completes her safety plan and is able to utilize coping and thought replacement strategies. Target Date: 08/06/21 Review Date: 08/06/21 Problem/Goal #2 - Problem/Goal #2 Stated Goal:: Reduce intensity and duration of anxiety to improve overall functioning. Description of Barriers: Client verbalizing a lot of displaced guilt and fear of being a burden. She struggles with independent skill application and reports hx of treatment ineffectiveness. Client has a hx of impulsivity and poor emotion regulation. Functional Impact: The patient is a 26-year-old female with a history of bipolar disorder and depression who was referred to the [facility] behavioral health partial hospitalization program following 2 psychiatric admissions in the past month. The patient had a psychiatric admission from June 27 to July 04, 2021 and again she was admitted from July 17 to July 22, 2021 for suicidal ideation with a plan to cut her throat and wrists. Pt says her symptoms have been worsening for the past 5 months but does not know of any trigger for this. She has a history of self-harm for several years and has cut her wrist and scratched her face at times, last reported on 07/22. In addition when she gets angry she bangs her head against a wall. She states that her mother put all knives and medications out of her reach and denies any access to guns. The patient says some of her stressors are losing 5 people that she liked since 2013. The patient's ?[place]? several years ago and she states that she has had auditory hallucinations of her grandfather's voice telling her to kill herself and these have occurred since the past 5 months. She says these hallucinations only occur when she is very upset and she has not heard these voices since her discharge from the hospital on July 22, 2021. The patient also describes being paranoid and says that she is certain that she sees people and that there are people outside of her house watching her, resulting in pt covering all her bedroom windows. At time of admission, pt endorses sadness, crying spells, isolating, anhedonia, low passive thoughts of , thoughts of self-harm, low energy, worry, and feelings of being a burden. Pt?s sx are impacting her social, occupational, and ability to function at baseline resulting in PHP level of care. - Objectives Objective #1 Stated Objective: Client will gain awareness of anxiety symptoms and triggers while learning 2-3 calming skills to reduce intensity of symptoms. Interventions: Therapist will help client increase awareness of cognitive distortions, triggers, and warning signs for anxiety. Therapist will provide psychoeducation on the overall impact anxiety has on individuals. Therapist will utilize CBT, DBT, and mindfulness strategies to teach client ways to manage symptoms and increase emotional regulation. Therapist will practice these skills during session with client. Discharge Criteria: Client will have accomplished this goal when client can report increased self-awareness and application of at least 2 calming skills. Target Date: 08/06/21 Review Date: 08/06/21
--- NOTE | 2021-07-30 10:28 | BH.MDN_ITS ---
Multi-Disciplinary Note - Note 45-min Individual Time Started:: 12:00 Date: 07/30/21 Purpose of session/treatment goals addressed:: The purpose of this session was to gather information on client's current stressors, symptoms, and treatment goals. Another goal was to build rapport and provide psychoeducation on healthy distress tolerance skills. Began creation of Trigger Action Plan. Eye Contact:: Fair Motor Activity:: Appropriate Appearance:: Casual Speech:: Appropriate, Soft Mood:: Anxious, Depressed Affect:: Constricted Thoughts:: Linear, Logical, No evidence of hallucinations/delusions noted Staff Interventions:: motivational interviewing, psychoeducation on: - distress tolerance, rapport building, strengths perspective, treatment planning, completed risk assessment / safety planning, taught coping skills Client Response:: Client responded well to session, open to meeting with therapist. Client reports feeling ?anxious but hopeful? about beginning the PHP program. Shared that her first day in groups ?went okay?, that she felt more anxious during process group but became increasingly comfortable as the day went on. Expressed connecting with the topic of healthy coping skills as this an area in which client has struggled significantly with in the past. Client elaborated that limited healthy coping skills is the primary reason she is in the IOP program. Described struggling to cope with intense emotions and intrusive thoughts over the past several months. Client shared she has a hx of self- harming since middle school but has recently been experiencing increased sx of depression, irritability, and overwhelming anxiety in the past 5 months. Noted that in June her sx escalated to the point in which she was hospitalized for suicidal ideation without specific plan or intent, but was again hospitalized less than two weeks later for suicidal ideation with plan to slit her wrists and neck. At this time client was given a bipolar dx. Denies suicidal ideation since July 17. Denies a specific trigger; however, client did admit to experiencing auditory command hallucinations of her uncle telling her to kill herself and ?come be with me?. 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 Denies experiencing either of these hallucinations since prior to most recent hospitalization and that they usually only occur when she is significantly overwhelmed or experiencing distress. Further disclosed paranoia, indicating she is certain that people are outside of her house watching her through the windows. She states that she has now covered all her windows with blankets because she feels better knowing no one can see in. Upon further discussion, client able to identify several triggers for emotion dysregulation. She was receptive of psychoeducation on distress tolerance and exploring several emotion regulation skills client may be able to apply for each of her identified triggers. Identified connecting specifically with art, calming music, and fidgets as healthy means of coping. Receptive of beginning to write down her identified triggers and the coping skills she connec stepan with to create and Emotional Distress trigger action and safety plan. Client receptive of working with her mother to identify potential warning signs she is becoming emotionally dysregulated for each of her identified triggers as homework. Risks/Concerns:: Client denies any current suicidal ideation, plan, or intent. Denies access to lethal means and reports feeling safe in the home. No hx of self-harming in the past week. Denies any homicidal ideation, plan, or intent. Reports her family as primary protective factors. Future-oriented. Aware of and willing to utilize crisis resources or seek emergency services should she feel unable to maintain safety at any time. Progress Toward Goals/Plan:: Client reports looking forward to the PHP program and discussed wanting to learn new skills for improving emotion regulation, improving confidence, and better managing her negative thoughts. Client?s first day of PHP tx, so no significant progress noted. Client would like to work on improving her relationship with self, learn coping skills for better managing her emotions and preventing crisis escalation, as well as return to work. Client will continue PHP tx to prevent decompensation, improve mood stability, and learn healthy coping skills for distress tolerance. Time Stopped:: 12:38
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
--- NOTE | 2021-07-30 11:10 | BH.SGPN.GN ---
Behaviors/Verbalizations/Mental Status: []Client alert and oriented, casually dressed and groomed. Eye contact fair. Motor activity appropriate. Speech within normal limits. Affect constricted, mood anxious and depressed. Thoughts linear, logical, no signs of hallucinations or delusions. Client Response/Progress/Benefit: []Client responded well to session, taking notes and nodding frequently. Group discussed the different categories of coping skills which included distraction, emotional release, grounding, self-love, and thought challenging. Client's coping skill menu included: painting, 5 senses, plan something she enjoys, and saying negative thoughts out loud then challenge thoughts. Appeared to benefit from increasing repertoire of healthy coping skills. Will continue tx to increase healthy coping, maintain safety, improve daily functioning and prevent decompensation.
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
--- NOTE | 2021-07-31 10:06 | BH.SGPN.GN ---
Behaviors/Verbalizations/Mental Status: []Client alert and oriented, casually dressed and groomed. Eye contact good. Motor activity appropriate. Speech within normal limits. Affect congruent, mood anxious. Thoughts linear, logical, no signs of hallucinations or delusions. Client Response/Progress/Benefit: []Client responded well to session AEB sharing and listening attentively to others. Client nodded and took notes throughout group discussion of the impacts and consequences of unmanaged anger, as well as the benefits of managed anger and anger as a secondary emotion. Client reported outward personal signed of anger as yelling, crying, and self-harm. Identified underlying emotions that contribute to anger as grief, anxiety, and feeling overwhelmed. Appeared to benefit from increased knowledge of anger as a secondary emotion and increased self-awareness of signs and emotions that contribute to anger. Will continue PHP treatment to prevent decompensation and maintain safety. Narrative Note: []
--- NOTE | 2021-07-31 11:05 | BH.SGPN.GN ---
Behaviors/Verbalizations/Mental Status: []Client alert and oriented, casually dressed and groomed. Eye contact good. Motor activity appropriate. Speech within normal limits. Affect constricted, mood anxious. Thoughts linear, logical, no signs of hallucinations or delusions. Client Response/Progress/Benefit: []Pt was engaged throughout AEB participating in discussion and taking notes. Pt reported the activity went well and pt felt confident in her ability to be successful. Contributed as group brainstormed healthy coping skills for better managing anger which included: deep breathing, counting, exercise, DDD, and looking at the consequences of responding in anger. Pt appeared to benefit from identifying different techniques to manage anger as well as gaining awareness of the costs of anger. Pt reported when their anger is unmanaged, pt yells, cries, and self-harms. Pt selected painting and using the G.L.A.D writing prompt to better manage anger. Will continue PHP tx to prevent decompensation, maintain safety, and gain healthy support. Narrative Note: []
[2021-07-31 11:08] VITALS: BP 179/94; PULSE 93
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
--- NOTE | 2021-07-31 13:08 | BH.DR.ITP ---
Initial Treatment Plan Patient Information Visit Information: ADMISSION DATE: EXPECTED LOS: 4-6 weeks Problems/Symptoms Problem #1:: Depression Symptom:: Sadness, worthlessness, anhedonia, low energy, passive thoughts of , recent suicidal ideation, thoughts of self-harm Problem #2:: Anxiety Symptom:: Worry, rumination
--- NOTE | 2021-07-31 15:42 | BH.MDN_ITS ---
Multi-Disciplinary Note - Note 45-min Individual Time Started:: 11:54 Date: 07/31/21 Purpose of session/treatment goals addressed:: The purpose of this session was to address current stressors impacting emotion regulation and resulting in self- harming on previous night. Additional purpose was to review homework and complete Trigger Action Plan. Eye Contact:: Fair, Avoidant Motor Activity:: Appropriate Appearance:: Casual Speech:: Soft Mood:: Anxious, Depressed Affect:: Constricted, Congruent Thoughts:: Linear, Logical, No evidence of hallucinations/delusions noted Staff Interventions:: thought challenging, motivational interviewing, CBT techniques, strengths perspective, taught coping skills - reviewed distress tolerance skills, other - completed trigger action and safety plan, reviewed supports Client Response:: Client receptive of session, initially hesitant to disclose recent stressors but with time willing to open up. Shared experiencing a stressful conversation in which her aunt had taken out frustrations on client the night before. Client noted shutting down in the moment and that her mother had intervened on client?s behalf. Client noted feeling frustrated, guilty, and depressed as a result which resulted in pt engaging in self-harming behaviors for the first time since July 22. Noted however that she did not allow this to ruin her night and instead reached out to a healthy support who helped client to challenge her negative thinking patterns and identify heathy coping skills she could engage in instead. Reported attempting to paint but struggling to focus so she instead spent time completing the G.L.A.D. journal prompt introduced during the coping skills group earlier in the day which she identified as helpful. Additionally, client noted completing her assigned homework to work with supports on identifying her common emotion dysregulation warning signs. Reviewed these with therapist as well as several additional skills her supports reminded her of that have been helpful in the past. Client and therapist discussed importance of identifying both internal and external supports in times in which she is triggered and reviewed several supportive people she can reach out to when needing healthy distraction, encouragement, or in times of crisis. Remainder of session spent completing trigger action plan. Client identified wanting to spend next session discussing strategies for chal lenging and reframing her negative self-talk messages. Risks/Concerns:: Client denies any current suicidal ideation, plan, or intent. Denies access to lethal means and reports feeling safe in the home. Reported engaging in self-harming via cutting her forearm last night but denies this was suicidal in nature. Denies any current self-harming urges or access to sharp objects she could use to engage in self-harming behaviors. Reviewed Client safety plan and crisis resources available. Progress Toward Goals/Plan:: Variable progress. Client reports benefiting from the materials she has learned so far and applying some of relaxation and emotion regulation skills when feeling overwhelmed the previous night. However, indicated struggling to utilize these skills until after engaging in self- harming behaviors. Client continues to report significant difficulties with in the moment stress management and distress tolerance skills. Recommended contin ued PHP tx to maintain safety, continue to improve healthy coping application, and prevent decompensation. Time Stopped:: 12:34
--- NOTE | 2021-08-01 09:00 | BH.SGPN.GN ---
Behaviors/Verbalizations/Mental Status: Eye contact is fair. Motor activity is appropriate. Appearance is casual. Speech is appropriate. Mood is anxious and depressed. Affect is constricted. Thoughts are linear and logical. No evidence of psychosis. Reviewed daily symptom tracker sheet with no reports of suicidal ideations, plan, or intent.[] Client Response/Progress/Benefit: [] Client was engaged AEB pt openly sharing thoughts and feelings and appeared attentive to others. Client reported her morning was going well until she found out her individual therapist wasn't at [facility] today. Client open to feedback from therapist. Client stated she thinks it could benefit her to talk with another [facility] therapist instead of waiting until tomorrow. Client struggled with identifying mental health wins. With help client reported staying at [facility] today as a win because she had the urge to leave when found out her therapist wasn't here. Pt seemed to benefit from support from peers. Will continue PHP treatment to maintain safety, improve emotion regulation and prevent decompensation.
--- NOTE | 2021-08-01 10:10 | BH.SGPN.GN ---
Behaviors/Verbalizations/Mental Status: [] Eye contact is good. Motor activity is appropriate. Appearance is casual. Speech is Appropriate. Mood is depressed. Affect is flat. Thoughts are linear and logical. No evidence of psychosis. Client Response/Progress/Benefit: [] Pt was an active participant in group discussion. Engaged in activity. Attentive during psychoeducation on the 4 stages of change. Pt participated and shared insight during interactive discussion regarding the obstacles to making changes which included; anxiety, fear of the unknown, what if it doesn't go well?, makes us leave comfort zone, expects things to go bad, FOF, past experiences with change were negative, and shame. Pt participated in activity which led to discussion on emotions commonly associated with change ( confused, cautious, guilty, overwhelmed, happy, anxious, confident, hopeful, and frightened. Benefited from increased insight and awareness of obstacles to change, common emotions associated with change, and the stages of change. Will continue in PHP to maintain safety, increased healthy coping, and prevent decompensation. Narrative Note: []
--- NOTE | 2021-08-01 11:15 | BH.SGPN.GN ---
Behaviors/Verbalizations/Mental Status: []Client alert and oriented, casually dressed and groomed. Eye contact avoidant. Motor activity appropriate. Speech within normal limits. Affect flat, mood anxious. Thoughts linear, logical, no signs of hallucinations or delusions. Client Response/Progress/Benefit: []Client responded well to session, attentive. Client withdrawn during the activity and shared feeling anxious about being in a smaller room ?where people look at you.? Client did better following the activity as client was able to work independently. Client identified a change they would like to make as setting a boundary with her aunt, but she is not yet ready to do this. Client reports barriers to change as not wanting to hurt her aunt?s feelings and fear of standing up for herself. Client set a goal of completing a decisional balance worksheet on setting a boundary with her aunt. Appeared to benefit from identifying a small goal to work towards. Client will continue PHP tx to prevent decompensation, maintain safety, and gain healthy coping skills. Narrative Note: []
--- NOTE | 2021-08-01 15:20 | BH.MDN_ITS ---
Multi-Disciplinary Note - Note 30-min Individual Time Started:: 12:05 Date: 08/01/21 Purpose of session/treatment goals addressed:: Pt's usual therapist was out due to illness, so this therapist met with pt. Purpose was to address current stressors, symptoms, and response to homework. Eye Contact:: Good Motor Activity:: Appropriate Appearance:: Neat Speech:: Soft Mood:: Anxious, Dysthymic Affect:: Constricted Thoughts:: Linear, Logical, No evidence of hallucinations/delusions noted Staff Interventions:: thought challenging, rapport building, strengths perspective, other - reviewed homework from previous session, offered emotional support, and helped pt complete a decisional balance reflection. Client Response:: Pt responded well to session, open to meeting with this therapist due to pt's usual therapist being out sick. Pt reports that at the beginning of the day she was feeling calm, but due to the change in routine, pt felt anxious during group sessions. Reviewed coping skills pt can use and support IOP staff can provide. Pt completed her homework from last session and this therapist will give it to pt's usual therapist. Pt stated she had a hard time identifying personal strengths, so she asked her supports for help. Pt has been using the G.L.A.D technique for journaling each day and pt finds this helpful. Pt reports her biggest stressor today is a boundary pt wants to set with her aunt. Pt shared she is close with this aunt, but every time we talk she's so negative. Pt reports feeling torn about setting this boundary, so she was receptive to completing a decisional balance reflection. Identified pros and cons for both setting the boundary and not saying anything. Pt acknowledges that ultimately not saying anything will only harm pt's mental health. Pt did not feel comfortable yet with choosing what to do, but she was willing to review her answers to the reflection for homework. Pt will also complete her G.L.A.D reflections tonight and pt was encouraged to practice self-care. Risks/Concerns:: Pt denied any active suicidal ideations, plan, or intent to this therapist as of 08/01/21. History of chronic passive thoughts of , but denies any suicidal ideations today. History of self-harm. Denies access to any lethal means. Progress Toward Goals/Plan:: Pt reports gaining valuable skills in PHP, but progress is limited at this time. Pt is applying some coping skills well such as writing and reaching out to supports. However, pt continues to struggle with distress tolerance and emotional dysregulation. Pt also having fleeting thought s to self-harm and has a history of suicidal ideations. Continues to endorse a depressed mood and significant anxiety. Recommended continued PHP tx to maintain safety, continue to improve healthy coping application, and prevent decompensation. Time Stopped:: 12:40
--- NOTE | 2021-08-02 09:00 | BH.SGPN.GN ---
Behaviors/Verbalizations/Mental Status: [] Eye contact is good. Motor activity is appropriate. Appearance is casual. Speech is Appropriate. Mood is depressed. Affect is flat. Thoughts are linear and logical. No evidence of psychosis. Reviewed daily check in sheet and pt reports 1/5 for suicidal thoughts and 0/5 for intent. Client Response/Progress/Benefit: [] Pt was an active participant in group discussion. Attentive. Provided appropriate feedback. Emotion for today is overwhelmed. He win for today is I'm here today. Discussed struggles with motivation this AM to get to IOP. Admits that she has distressing thoughts and urges last night. She did not elaborate on her thoughts or urges to the group. She was proud of herself for reaching out to support last night while having negative thoughts. In the past she would often isolate and ruminate on distressing thoughts which increased intensity. She states that she is overwhelmed however I don't know why. Limited insight into triggers to emotions. Progress noted per pt report. Benefited from group support, encouragement, and feedback. Will continue in [facility] to maintain safety and prevent decompensation (hospitalization). Narrative Note: []
--- NOTE | 2021-08-02 10:08 | BH.SGPN.GN ---
Behaviors/Verbalizations/Mental Status: []Client alert and oriented, casually dressed and groomed. Eye contact good. Motor activity appropriate. Speech within normal limits, quiet. Affect constricted, mood dysthymic and anxious. Thoughts linear, logical, no signs of hallucinations or delusions. Client Response/Progress/Benefit: [] Client receptive to session, listening attentively to others and providing input. Actively listening and taking notes as the group brainstormed the positive and negative aspects of stress on physical and mental health. Client discussed stress has resulted in her acting impulsively and turning to self-harming. Group worked together to define stress and provided input during discussion about eustress vs distress. Client identified personal stressors which included: father?s drinking, work, finances, trauma anniversary, and her mental health. Client reports belief that her stress jar is overflowing which she feels is impeding her ability to challenge negative thoughts and impacting her self-esteem. Seemed to benefit from increased awareness of current stressors and impact of too much stress on the mind and body. Will continue PHP tx to prevent decompensation, maintain safety, and promote consistent use of healthy coping skills. Narrative Note: []
--- NOTE | 2021-08-02 11:10 | BH.SGPN.GN ---
Behaviors/Verbalizations/Mental Status: []Client alert and oriented, casually dressed and groomed. Eye contact fair to good. Motor activity appropriate. Speech within normal limits, soft. Affect constricted, mood anxious and dysthymic. Thoughts linear, logical, no signs of hallucinations or delusions. Client Response/Progress/Benefit: []Client engaged in session AEB listening attentively, working collaboratively with others, and providing input when prompted throughout. Client appearing to be more comfortable in the small group setting AEB increased participation. She was an active participant in challenge activity and did well to use communication skills to help group with problem solving throughout challenge activity. Client remained attentive during discussion about the 4 A's of managing stress and expressed connecting with the various benefits of each. Completed worksheet provided on which she identified she would like to work on using the skill of acceptance to address current stressor of conflict with her aunt. Discussed that she could use acceptance to allow her to forgive the situation. Client seemed to benefit from increased awareness of the impact of stress on mental health and increasing repertoire of stress management strategies. Progress noted in pt overall improved engagement in group setting and reports of reduced intrusive thoughts of . Will continue IOP tx to continue to maintain safety, further improve coping repertoire, as well as prevent decompensation. Narrative Note: []
--- NOTE | 2021-08-02 14:33 | BH.MDN ---
Multi-Disciplinary Note - Note 30-min Individual Time Started:: 12:13 Date: 08/02/21 Purpose of session/treatment goals addressed:: The purpose of this session was to address ongoing stressors impacting emotion regulation and continuing to impede healthy coping application. Additional purpose was to review homework and begin addressing negative thinking patterns. Eye Contact:: Good Motor Activity:: Appropriate Appearance:: Casual Speech:: Appropriate Mood:: Anxious, Dysthymic Thoughts:: Linear, Logical, No evidence of hallucinations/delusions noted Staff Interventions:: thought challenging - aided client in utilizing reframing skills, motivational interviewing, CBT techniques - Reviewed behavior chain analysis of recent stressor and pt response, strengths perspective - commended pt for reaching out to supports, completed risk assessment / safety planning Client Response:: Client receptive of session, actively engaged and more open to discuss current symptoms and stressors than in prior sessions. Client shared completing a decisional-balance worksheet when checking in with another therapist the previous date due to this therapist being out of the office. Explained she was weighing the pros/cons of confronting her aunt about the negative statements she has been making to client about one of her friends. Indicated that she ultimately would like to establish a boundary as this impacts client?s mood and stress levels, but that she is worried about upsetting her aunt or getting yelled at. Client receptive of discussion reviewing healthy communication strategies for advocating for herself and addressing her concerns her concerns. Client identified that she could utilize her mother as an additional support when preparing for and having the conversation. Went on to discuss that this had again been a trigger last night as client?s aunt and father got into an argument resulting in her father becoming angry and drinking more than he usually would. Client shared experiencing intrusive thoughts of ?I want to burn down the house with me in it? at that times. When asked what she did to cope, client expressed not knowing what to do and sat alone in her room until the thoughts became overwhelming and she superficially cut her thumb with a knife in the kitchen. Denies referring to her trigger action plan for reminders of healthy coping reminders in the moment. Denies this was suicidal in nature and expressed recognizing this as a warning sign and spending the remainder of the evening with a friend. Shared the thoughts returned upon coming home and she decided to try and ?sleep it off?. Reports often relying on sleep to cope when not knowing how else to manage her emotions. Worked with therapist to complete a behavior chain analysis of the events and identify healthy skills she could apply in each moment throughout the stressful experience. Discussed displaying her Trigger Action Plan in an area she often spends time to increase the likelihood of utilizing her healthy skills. Client and therapist reviewed the negative thinking patterns contributing to increase in emotion dysregulation. Discussed creating visual reminders to aid in challenging these thoughts in the moment. Receptive of painting and displaying in her room images highlighting her strengths for homework. Risks/Concerns:: Client denies any current or active suicidal ideation, plan, or intent. Does report intrusive passive thoughts of the previous night, but denies any plan or intent at that times. Denies current access to lethal means, reporting her father has removed the new cutlery from pt access in the kitchen, and reports feeling safe in the home. Reported engaging in self-harming via cutting her thumb last night but denies this was suicidal in nature. Denies any current self-harming urges. Reviewed Client safety plan and crisis resources available. Progress Toward Goals/Plan:: Variable progress. Client continues to deny active suicidal ideation, plan, or intent and denies thoughts of no longer wanting to live. However, she does report intrusive thoughts of wanting to when feeling particularly overwhelmed or times she is emotionally triggered. Continues to struggle with in the moment distress tolerance skill use and thought challenging, thought does report improved willingness to reach out to supports. Progress in reduction of thoughts of actually wanting to , but recommended continued PHP tx to further improve distress tolerance and emotion regulation skills, maintain safety, and prevent decompensation. Time Stopped:: 12:45
--- NOTE | 2021-08-05 09:03 | BH.SGPN.GN ---
Behaviors/Verbalizations/Mental Status: []Client alert and oriented, casually dressed and groomed. Eye contact fair to good. Motor activity appropriate. Speech soft, limited input provided. Affect constricted, mood anxious. Thoughts linear, logical, no signs of hallucinations or delusions. Reviewed client?s symptom tracker denies any suicidal ideation, plan, or intent as of 07/30/21. Client Response/Progress/Benefit: []Client responded well to session, attentive and willing to provide feedback to group. Client however reported not wanting to process this morning as she is feeling anxious. Continues to report anxiety during the process group, though appears to benefit from supportive environment. Reported progress in reduced depressive sx and has not indicated any suicidal ideations. Client will continue PHP tx to promote healthy skill use, continue to maintain mood stability, and prevent decompensation. Narrative Note: []
--- NOTE | 2021-08-05 10:15 | BH.SGPN.GN ---
Behaviors/Verbalizations/Mental Status: []Client alert and oriented, casually dressed and groomed. Eye contact good. Motor activity appropriate. Speech within normal limits. Affect congruent, mood anxious. Thoughts linear, logical, no signs of hallucinations or delusions. Client Response/Progress/Benefit: []Client responded well to group session AEB sharing and listening attentively to others. Client participated in group activity identifying famous individuals and how they overcame failure to be successful. Group defined fear of failure, and identified its impact on their mental health and relationships. Client stated that fear of failure ?keeps us from being ourselves? due to being ?afraid to rock the boat?. Client participated in experiential activity, problem solving with group members and providing supportive feedback. Appeared to benefit from increased knowledge of fear of failure. Will continue IOP treatment to increase mood stability and increase application of healthy coping skills to improve daily functioning. Narrative Note: []
--- NOTE | 2021-08-05 11:15 | BH.SGPN.GN ---
Behaviors/Verbalizations/Mental Status: []Client alert and oriented, casually dressed and groomed. Eye contact good. Motor activity appropriate. Speech within normal limits. Affect flat, mood depressed. Thoughts linear, logical, no signs of hallucinations or delusions. Client Response/Progress/Benefit: []Client responded well during 2nd group, but then became withdrawn after finding out her therapist had to leave early. Client completed fear of failure worksheet but did not share out with the group. Able to identify thoughts and behaviors that reinforce personal fear of failure including: distorted thought patterns, not feeling enough, and avoidance. Client also reported that fear of failure has kept client meeting new people and ?showing who I really am.? Client participated in small group discussion regarding strategies to overcome fear of failure. Identified wanting to work on setting small boundaries with toxic people. Appeared to benefit from increased knowledge of strategies to combat fear of failure and gaining self-awareness. Client was to drop down from [facility] to IOP tomorrow, but due to client?s increased symptoms today, IOP staff will need to evaluate plan of care. Narrative Note: []
--- NOTE | 2021-08-05 14:13 | BH.MDN ---
Multi-Disciplinary Note - Note 60-min Individual Time Started:: 12:05 Date: 08/05/21 Purpose of session/treatment goals addressed:: To address current symptoms, stressors, triggers, and assess risk. Pt's usual [facility] therapist had to leave early today, so this therapist met with pt. Eye Contact:: Good Motor Activity:: Slowed Appearance:: Casual Speech:: Soft Mood:: Anxious, Dysthymic Affect:: Other - tearful and flat at times but other times laughing with therapist. Thoughts:: Linear, Logical, No evidence of hallucinations/delusions noted Staff Interventions:: strengths perspective, completed risk assessment / safety planning, taught coping skills - reviewed pt's safety plan which included supports and coping skills., other - called pt's mother to discuss safety plan. Client Response:: Pt entered session quiet and appearing depressed and anxious. Pt shared she is not doing well today and became tearful. Pt stated her plan over the weekend was to keep busy but pt shared this resulted in pt feeling overwhelmed and emotionally drained today. Pt stated I lied on my symptom assessment and reported my thoughts haven't been good. Pt shared she has been having suicidal ideations as well as thoughts of wishing she was . Pt stated she has had these thoughts throughout the weekend, but pt did not self-harm which is progress. Pt stated she lied on her assessment because she does not want to go back to the hospital and let people down (mother and normal [facility] therapist). Discussed pt's options and challenged distortions. Pt continues to struggle with change in routine and reported she continues to struggle with isolation and avoidance. Pt agreeable to completing a safety plan and having therapist call her mother. Pt understands that she will need monitoring and pt's mother feels comfortable and is able to do this. Part of pt's plan is to spend time with a friend emily and practice her coping skills. Pt was given a coping skills plan from her therapist and pt has this to review. Pt was not tearful by the end of session and was laughing at times. Risks/Concerns:: Pt had initially denied any suicidal ideations this morning. However, during individual session, pt admitted to having suicidal ideations with thoughts of cutting her wrist or hanging herself that have lasted throughout the weekend. Pt reports the thoughts are worse today because I'm emotionally drained. Pt has not reported any SI while in PHP, and pt does not know the specific trigger. Pt was unable to commit to keeping herself safe today initially, but after creating a safety plan and calling her mother, pt felt able to keep herself safe. Pt denied any active SI. Pt does not have any access to weapons or stockpiles of medications. Parents have taken all the razors and sharp objects from the home. Pt's mother was informed to monitor pt 29/12 and not leave pt alone. Pt was future oriented by the end of session and during session pt scheduled plans with a friend for emily. Progress Toward Goals/Plan:: Variable progress. Pt reports benefiting from the materials she has learned so far and applying some of the skills learned in group and individual sessions. However, indicated struggling to utilize these skills and reports significant difficulties with using tolerance skills. Pt reports she continues to avoid stressors through sleeping. Pt also reported that she was not honest on her DMS-5 assessment and that her scores have not really decreased. Pt was to drop down to IOP level of care, however, due to recent decompensation in symptoms and SI, pt recommended continued PHP tx to maintain safety, continue to improve healthy coping application, and prevent decompensation that might require rehospitalization. Time Stopped:: 13:00
--- NOTE | 2021-08-05 14:38 | BH.COMM ---
Communication Note - Communication with Client Communication Note: pt's mother called in as part of pt's safety plan. Mother reports pt is doing well, pt ate lunch and is now sleeping. Pt's mother agreeable to continue watching pt 29/12 and if symptoms worsen or pt does not feel she can keep herself safe, mother will take pt to the ER. Pt's mother was provided a copy of pt's safety plan and feels capable of providing monitoring and making sure the environment is safe. Pt is scheduled for PHP tomorrow.
== END 2021-08-05 23:59 ==
LOC: BHPHP 08:00
PROVIDERS: PCP Family Medicine; Visit Provider Psychiatry & Neurology Psychiatry
DX: F31.5 Bipolar disorder, current episode depressed, severe, with psychotic features (principal); E66.01 Morbid (severe) obesity due to excess calories; E24.9 Cushing's syndrome, unspecified; E11.9 Type 2 diabetes mellitus without complications; F90.0 Attention-deficit hyperactivity disorder, predominantly inattentive type; F41.9 Anxiety disorder, unspecified; Z79.899 Other long term (current) drug therapy; M19.90 Unspecified osteoarthritis, unspecified site; I10 Essential (primary) hypertension; K21.9 Gastro-esophageal reflux disease without esophagitis; J45.909 Unspecified asthma, uncomplicated; E28.2 Polycystic ovarian syndrome; Z81.8 Family history of other mental and behavioral disorders
CPT/HCPCS: H0035; 90832; 90834; 90837; G0410

== ENCOUNTER 2021-08-06 07:57 | Outpatient (RCR) | payer OTHER, MEDICAID, SELFPAY ==
[2021-08-06 00:44] VITALS: BP 179/94; PULSE 93
--- NOTE | 2021-08-06 08:27 | BH.MDN ---
Multi-Disciplinary Note - Note 45-min Individual Time Started:: 07:54 Date: 08/06/21 Purpose of session/treatment goals addressed:: To address current symptoms, stressors, triggers impacting tx progress. Discussed barriers to openly communicating with supports and strategies for improving honest communication. Assessed for risk. Eye Contact:: Good - initially avoidant but improved throughout session Motor Activity:: Appropriate Appearance:: Casual Speech:: Appropriate Mood:: Anxious, Dysthymic Affect:: Congruent Thoughts:: Linear, Logical, No evidence of hallucinations/delusions noted Staff Interventions:: thought challenging, motivational interviewing, psychoeducation on: - healthy communication, behavior activation skills of opposite action, CBT techniques, strengths perspective, completed risk assessment / safety planning, taught coping skills - reviewed skills Client Response:: Pt receptive of session, initially quiet and indirect with eye contact reporting feeling nervous this therapist was upset that pt had reported she had been dishonest about her symptoms the previous date. Therapist reassured client and discussed that it is more important she is safe and willing to honestly communicate moving forward. Reviewed the importance of open and honest communication with her entire care team to best address her mental health needs and prevent decompensation. Pt expressed understanding and proved insight into barriers preventing her from doing so previously. Identified feeling uncomfortable, not knowing how to communicate when she is struggling, and not wanting to disappoint or make her mother sad. Therapist worked with pt to challenge associated distortions. Reviewed ways to increase comfort in communicating with others, and pt identified wanting to begin keeping a journal with her mother that she can write in and hand her mother read when she is struggling until able to feel more comfortable verbalizing these thoughts and emotions. Pt additionally discussed ongoing difficulties with applying her distress tolerance skills in the moment when feeling emotionally triggered or overwhelmed, reporting she often resorts to avoidance via sleeping or escaping the situation. Shared ?I just haven?t wanted to use my skills because I don?t feel good so I don?t feel like it?. Reviewed concepts of behavior activation including opposite action and it?s impacts on improving motivation and reducing apathy. Additionally, notes forgetting her skills in the moment and does not remember to look at her Trigger Action Plan completed in previous sessions. Reports willingness to share her Trigger Action Plan with her mother to help remind her of her skills in the moment. Risks/Concerns:: Pt reports feeling her thoughts of expressed the previous date were more associated with experiencing increased anxiety earlier that morning and feeling helpless in her ability to manage her anxious thoughts and sx and not wanting to communicate her need for support. Shared she began feeling hopeless and as though ?I would be better off ? but denies thoughts and feelings of not wanting to live since meeting with another program therapist yesterday. Reports she does not have access to any potentially lethal means. Future oriented and protective factors noted. Pt does not live alone and reports she will be around supports the remainder of the day. Progress Toward Goals/Plan:: Variable progress. Pt reports continuing to benefit from the materials she has learned so far, however is admitting to inconsistent and limited application of materials learned. Shared struggling to remember and utilize skills in the moment, as well as distortions preventing her from openly communicating with supports. Does well to complete all homework assigned and is engaged in individual and group settings. Continues to struggle significantly with in the moment distress tolerance skills. Pt reported suicidal ideation previous date due to difficulties in managing overwhelming sx of anxiety. Denies any current. Pt recommended continued PHP tx to maintain safety, continue to improve healthy coping application, and prevent decompensation that might require rehospitalization. Time Stopped:: 08:40
--- NOTE | 2021-08-06 09:05 | BH.SGPN.GN ---
Behaviors/Verbalizations/Mental Status: [] Eye contact is good. Motor activity is appropriate. Appearance is casual. Speech is Appropriate. Mood is depressed. Affect is flat. Thoughts are linear and logical. No evidence of psychosis. Reviewed daily check in sheet and no reports of suicidal ideations or intent. Client Response/Progress/Benefit: [] Pt was an active participant in group discussion. Attentive. Provided appropriate feedback. Daily symptom tracker notes 2/5 for depression and self-harm urges. Emotion for today is content. Shared that yesterday was a hard day which included suicidal thoughts. She discussed her intrusive negative thoughts. Insight that she shut down yesterday and previous days by not disclosing her distress to support and isolation. Utilized sleep as coping skill. I need to communicate more. Progress noted from yesterday. Benefited from group support, encouragement, and feedback. Will continue in PHP to maintain safety (pt verbalized SI with plan and no intent yesterday). Narrative Note: []
--- NOTE | 2021-08-06 10:05 | BH.SGPN.GN ---
Behaviors/Verbalizations/Mental Status: []Eye contact is good. Motor activity is appropriate. Appearance is casual. Speech is Appropriate, limited input provided. Mood is anxious. Affect is constricted. Thoughts are linear and logical. No evidence of psychosis. Client Response/Progress/Benefit: [] Pt was an active participant in group discussion AEB taking notes and providing input throughout. Attentive during psychoeducation reviewing internal and external obstacles and provided examples throughout. Participated in the reflection activity in which clients tristan pictures depicting their current and desired reality and shared with the group. Pt shared in current reality she is stuck in bed and suffocating while others watch but don?t help. Expressed struggling to reach out for help which continues to reinforce feelings of being alone in her depression. Shared a desired reality would be to be jumping on the bed, feeling more confident and able to see her own personal strengths. Pt to continue PHP to further improve daily functioning, and emotion regulation skills, as well as prevent decompensation. Narrative Note: []
--- NOTE | 2021-08-06 11:10 | BH.SGPN.GN ---
Behaviors/Verbalizations/Mental Status: []Client alert and oriented, casually dressed and groomed. Eye contact good. Motor activity appropriate. Speech within normal limits. Affect congruent to topics being discussed, mood dysthymic. Thoughts linear, logical, no signs of hallucinations or delusions. Client Response/Progress/Benefit: []Client an active participant, encouraging peers and contributed as group brainstormed ideas on how to cope with internal barriers that keep clients stuck from moving towards goals. Able to identify barriers to desired reality. Identified barriers to current reality to include: avoidance, difficulty managing emotions, and fear of being judged. Client wants to work on overcoming the barrier of avoidance by isolating less when she is stressed. Benefited from group by identifying obstacles and solutions to desired reality. Will continue PHP tx to prevent decompensation and use of emotional regulation skills when triggered. Narrative Note: []
--- NOTE | 2021-08-07 09:00 | BH.SGPN.GN ---
Behaviors/Verbalizations/Mental Status: []Eye contact is good. Motor activity is appropriate. Appearance is casual. Speech is Appropriate. Mood is euthymic. Affect is congruent. Thoughts are linear and logical. No evidence of psychosis. Reviewed daily check in sheet and no SI indicated. Client Response/Progress/Benefit: P[]Pt responded well to session, chose to share first which is uncharacteristic for pt. Pt shared she is feeling happy this morning because she set a boundary with her aunt and her aunt responded well to this boundary. Pt shared feeling proud about how she set the boundary as well stating, I didn't go off on her, I just told her. Pt identified other healthy coping skills she used recently like therapeutic painting. Pt denied having any stressors today and appeared to benefit from reflecting on her wins. Progress noted in pt's self-report of utilizing coping skills, however, pt continues to struggle with emotional dysregulation. Will continue PHP tx to promote mood stability, maintain safety, and increase the use of healthy coping skills. Narrative Note: []
--- NOTE | 2021-08-07 10:05 | BH.SGPN.GN ---
Behaviors/Verbalizations/Mental Status: []Client alert and oriented, casually dressed and groomed. Eye contact good. Motor activity appropriate. Speech within normal limits. Affect congruent, mood euthymic. Thoughts linear, logical, no signs of hallucinations or delusions. Client Response/Progress/Benefit: []Client responded well to session AEB sharing and listening attentively to others. Group discussed the benefits of healthy relationships and factors that contribute to relationships becoming unhealthy. Client provided examples of factors, including drugs and alcohol, poor communication, and poor emotion regulation. Client participated in experiential activity modeling healthy relationship behaviors, supporting and problems solving with group members. Appeared to benefit from increased knowledge of the benefits of healthy relationships and characteristics of unhealthy relationships. Will continue IOP treatment to prevent decompensation and increase healthy coping skill application to improve daily functioning. Narrative Note: []
--- NOTE | 2021-08-07 11:13 | BH.SGPN.GN ---
Behaviors/Verbalizations/Mental Status: [] Client alert and oriented, casually dressed and groomed. Eye contact good. Motor activity appropriate. Speech within normal limits. Affect congruent, mood euthymic and positive. Thoughts linear, logical, no signs of hallucinations or delusions. Client Response/Progress/Benefit: [] Client responded well to session, engaged and taking notes. Attentive during psychoeducation about characteristics of healthy, unhealthy, and abusive relationships. Able to identify relationship strengths. Client stated she wants to work on being more open and honest with her communication. Client reported she typically shuts down and doesn't communicate with others, which she can connect the challenges this provides for her. Client reported she has made some steps recently to be more open with her communication. Appeared to benefit from reflecting upon personal relationship strengths, as well as brainstorming strategies to build healthier relationships. Pt recommended to continue PHP tx to maintain safety, continue working on building healthy coping skills and prevent decompensation.
--- NOTE | 2021-08-07 12:21 | PCM.BH.PN_ITS ---
Progress Note Progress Note: History of Present Illness/Interim History: [] The patient is a 26-year-old single female with a history of bipolar disorder and depression who is seen in follow-up at the [facility] behavioral health [facility] program. I last saw the patient 1 week ago and at the time of her admission she had had two psychiatric admissions in June and one in July 2021 for suicidal ideation with a plan to cut her throat and wrists. The patient states that her symptoms have not really changed in the past week. Her met her medications were last changed about 3 weeks ago. She remains depressed and has thoughts of self-harm on occasion but has not done any self-harm. Since last visit. The patient does have low frustration tolerance and on August 05, 2021 the patient did come to the [facility] center expressing suicidal ideation with a plan to cut her throat or wrists. The patient met with counselors here and a safety plan was devised to help her cope with these feelings and when she feels overwhelmed and this plan has been adopted for her and she states that it has helped her at home. The patient denies any hallucinations but says she does still feel somewhat paranoid and that she still has blankets covering up the windows in her family room. She however states that there were no curtains in the family room. There are curtains in her bedroom so she does not have blankets on the bedroom. She denies homicidal ideation, hallucinations and denies current suicidal ideation or thoughts of self-harm today. Current Psychiatric Medications: [] Abilify 15 mg p.o. nightly (x5 weeks); Cymbalta 30 mg p.o. daily (x4 weeks); trazodone as needed at bedtime and Vistaril as needed for panic attacks. Mental Status Examination: [] The patient is an obese female who is seen wearing a mask due to the pandemic and is casually dressed and groomed with good hygiene. She is cooperative during the interview and has no psychomotor agitation or retardation. Eye contact is good and speech is normal rate and rhythm and fluent with no pressure. Mood is depressed. Affect is constricted. Thought process is goal-directed and organized and consistent today. Thought content: There is evidence of recent suicidal ideation 3 days ago and feelings of being overwhelmed easily when frustrated. There is no evidence of homicidal ideation or hallucinations. There is evidence of mild paranoia and feelings that she is being watched for which she has covered her family room windows with blankets due to the fact that there were no curtains in that room. Reality testing is intact. Intelligence is possibly below average or average. Judgment is intact. Insight is limited but improving. Impulsivity is high. Diagnoses: [] 1. Bipolar one disorder, most recent episode depressed, severe without psychosis Two. Cluster B traits: Strong 3. History of ADHD, inattentive type Four. Rule out alcohol use disorder 5. Anxiety disorder, NOS 6. Primary support and work issues Plan: [] The patient will continue the IOP the PHP the patient will continue the PHP program at [facility] as the structure, support, education and group therapy will hopefully prevent worsening of the patient's symptoms which might require rehospitalization. The patient remains very easily overwhelmed and with a very low frustration tolerance and will be watched closely due to these issues. Patient felt safe during the interview and if it anytime she does not feel safe she agrees to let us know or go to the emergency room. She agrees to continue the safety plan she set up with the counselors that seems to be helping her at home. She agrees to not engage in any self harm and to not use any alcohol. The risks, options, possible complications and side effects of the medications were again discussed with the patient and she understands and accepts these. The patient agrees to increase her Cymbalta to 60 mg p.o. daily and a prescription was given for this. The patient will continue to follow-up with her outpatient medical and psychiatric providers and I will see the patient in follow-up in 1 week.
--- NOTE | 2021-08-07 14:06 | BH.COMM ---
Communication Note - Communication with Client Communication Note: Therapist out of office on this date and client reported she did not want to meet with another therapist for individual session. Therapist contacted client to check-in following PHP group and discuss plans for upcoming session tomorrow. Client reports having a really great day today and excitedly shared several positives which included: completing homework from prior session, challenging herself to share in group, as well as setting a boundary with her aunt who has been a trigger for client in the past. Client reports plan to complete a few tasks around the house and paint this evening. Denies any suicidal ideation, plan, or intent at time of communication. Plan is to meet with this therapist tomorrow morning.
--- NOTE | 2021-08-08 09:05 | BH.SGPN.GN ---
Behaviors/Verbalizations/Mental Status: [] Eye contact is good. Motor activity is appropriate. Appearance is casual. Speech is Appropriate. Mood is anxious/irritable. Affect is congruent. Thoughts are linear and logical. No evidence of psychosis. Reviewed daily check in sheet and no reports of suicidal thoughts. Client Response/Progress/Benefit: [] Pt was an active participant in group discussion. Attentive. Provided appropriate feedback. Daily symptom tracker notes 3/5 for anxiety and irritability; 2/5 for depression. [facility] was communicating with support this AM regarding events that were causing her distress. She reports that she met with individual therapist this AM and worked on other things. States that she managed her negative thoughts and emotions better yesterday and had a good day. Emotion for today is exhausted. Progress noted per pt report. Benefited from group support and encouragement. Will continue in PHP to maintain safety, prevent decompensation, and to increase healthy coping. Narrative Note: []
--- NOTE | 2021-08-08 10:15 | BH.SGPN.GN ---
Behaviors/Verbalizations/Mental Status: []Client alert and oriented, casually dressed and groomed. Eye contact good. Motor activity appropriate. Speech within normal limits. Affect congruent, mood anxious. Thoughts linear, logical, no signs of hallucinations or delusions. Client Response/Progress/Benefit: []Pt engaged throughout AEB taking notes, listening attentively, and providing some input when prompted. Attentive during psychoeducation and discussed the importance of goal-setting with the group. Pt indicated agreeing that goals can provide a sense of purpose. Group identified potential benefits of having goals to include: they motivate, increase self-confidence, provide a sense of accomplishment, help hold you accountable, and provide a sense of purpose. Group also worked together to identify barriers to goal-setting which included; negative self-talk, lack of motivation, fear of other?s reactions, unrealistic expectations, and procrastination/excuses. Pt identified personal barriers to include negative self-talk, low motivation, and distractions. Benefited from increased awareness of benefits and barriers to goal-setting. Pt will continue in PHP to prevent decompensation/maintain safety, increase healthy coping skill application, stabilize mood, as well as further improve daily functioning. Narrative Note: []
--- NOTE | 2021-08-08 11:15 | BH.SGPN.GN ---
Behaviors/Verbalizations/Mental Status: []Client alert and oriented, casually dressed and groomed. Eye contact fair to good. Motor activity appropriate. Speech within normal limits. Affect congruent, mood anxious. Thoughts linear, logical, no signs of hallucinations or delusions. Client Response/Progress/Benefit: []Pt was an active participant in group discussions and activities. Engaged in activity. Pt identified a SMART goal for the next week is to: practice her trigger coping skills twice a day at lunch and bedtime. Pt reported this would benefit her by helping her learn and remember to use healthy skills when triggered. Identified negative self-talk, lack of confidence, forgetfulness, other people and apathy as potential barriers to completing this goal. Pt able to identify several solutions, such as, visual aids, challenging negative thoughts, and celebrating wins, that can help overcome identified barriers. Benefited from group by being able to utilize SMART educate to create a goal. Pt to continue PHP to maintain safety, increase emotion regulation and prevent decompensation.
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
--- NOTE | 2021-08-09 09:00 | BH.SGPN.GN ---
Behaviors/Verbalizations/Mental Status: [] Eye contact is good. Motor activity is appropriate. Appearance is casual. Speech is Appropriate. Mood is anxious. Affect is congruent. Thoughts are linear and logical. No evidence of psychosis. Reviewed daily check in sheet and no reports of suicidal ideations or intent. Client Response/Progress/Benefit: [] Pt participated at times during group discussion. Attentive. Daily symptom tracker notes 2/5 for self-harm urges and 1/5 for anxiety. Pt did not want to share stating I don't have much to say Emotion for today is energetic. She was engaged at times during group discussion. Smiling. Did not appear in distress. Benefited from group discussion and support. Will continue in PHP to maintain safety, prevent decompensation, and increase heathy coping. Narrative Note: []
--- NOTE | 2021-08-09 11:13 | BH.SGPN.GN ---
Behaviors/Verbalizations/Mental Status: []Client alert and oriented, casually dressed and grooming appropriate. Eye contact good. Motor activity appropriate. Speech within normal limits, quiet. Affect congruent. mood euthymic and anxious. Thoughts linear, logical, no signs of hallucinations or delusions. Client Response/Progress/Benefit: []Client engaged in session AEB contributing to discussion and taking notes throughout. Attentive throughout discussion on what prevents moving on to the ?next chapter? in our life and the importance of problem-solving solutions to address identified barriers. Participated as group brainstormed the components of A,B,C,D,E problem solving method and various strategies for promoting follow-through in each stage. Client identified low motivation, poor emotion regulation, and blaming others as barriers preventing her from moving to the next chapter in mental health recovery. Identified practicing positive affirmations, communicating more openly and honestly with supports, and continuing treatment she can take in the problem-solving process. Appeared to benefit from learning about problem solving method and practice applying this to personal barriers identified. Progress noted in client self-report of improved application of distress tolerance skills and increased mood stability. Will continue PHP tx to further improve mood stability, continue to promote healthy skill application, and prevent decompensation. Narrative Note: []
--- NOTE | 2021-08-09 15:03 | BH.MDN_ITS ---
Multi-Disciplinary Note - Note 45-min Individual Time Started:: 07:55 Date: 08/09/21 Purpose of session/treatment goals addressed:: To address current symptoms, stressors, and tx progress. Reviewed yessica warning signs and triggers, and created a weekend safety plan. Eye Contact:: Good Motor Activity:: Appropriate, Restless Appearance:: Casual Speech:: Appropriate Mood:: Euthymic Affect:: Congruent Thoughts:: Linear, Logical, No evidence of hallucinations/delusions noted Staff Interventions:: motivational interviewing, psychoeducation on: - manic symptoms and common triggers, CBT techniques, strengths perspective, other - completed weekend safety plan Client Response:: Pt entered session in a positive and more talkative mood. Reports having ?a lot of energy today? and fears she may be heading towards a manic cycle. Provided insight into warning signs for yessica, stating that she often starts feeling increasingly energetic and restless, has urges to act impulsively, and sleep becomes disrupted. Pt shared feeling more ?goofy? and energetic last night which resulted in pt dying her hair for the first time and consuming several shots of alcohol. Denies any other impulsive behaviors but noted these as outside of her typical behavior which is concerning. Shared that she has impulsively engaged in self-harming behaviors and excess spending when manic in the past and is worried she will be tempted to do something similar this weekend. Willing to work with therapist to create a weekend safety plan to prevent from engaging in in any high-risk behaviors or placing herself in situations in which she may be tempts, as pt reports difficulties in saying ?no? as well. Pt identified several supports she could reach out to who would be willing to spend time engaging in healthy activities with pt over the weekend. Identified playing board games, going for a picnic, and visiting her grandparents/helping them around their house as healthy activities she can do. Able to identify several skills she could use to help if feeling agitated or overwhelmed as well. Discussed with therapist strategies to improve safety of the environment which included removing all alcohol and any potentially dangerous objects, communicating with supports the need to stay away from alcohol, as well as giving her money/credit cards to a support person to prevent excess spending as well. Pt reports feeling confident she can manage her s ymptoms this weekend and maintain safety. Discussed plans to spend time with her mother and brother this afternoon. Discussed benefits of mood tracking over the weekend to identify any changes in behavior or mood as well. Risks/Concerns:: Pt denies any suicidal ideation or thoughts of since Thursday. Additionally denies any self-harming thoughts since this time as well. Reports willingness to follow weekend safety plan and will reach out to emergency services should she feel unable to maintain safety at anytime. Progress Toward Goals/Plan:: Progress remains variable. Pt continues to struggle with consistent skill implementation and communication with supports, though does report some progress in this area. Indicates increased insight into her warning signs and triggers but continues to struggle with remembering what skills to use during those times. Pt does however express taking steps to inform her supports of these warning signs and triggers when recognizing them in order to take steps to begin addressing them. Proactively identified warning signs for potential manic cycle and was willing to safety plan for the weekend which i ndicates progress as well. Continues to deny any SI or self-harming urges, plan or intent. Future oriented. Pt recommended continued PHP tx to maintain safety, continue to improve emotion regulation and stress management skill use, and prevent decompensation that might require rehospitalization. Will re-evaluate on Thursday. Time Stopped:: 08:35
--- NOTE | 2021-08-12 09:00 | BH.SGPN.GN ---
Behaviors/Verbalizations/Mental Status: [] Eye contact is good. Motor activity is appropriate. Appearance is casual. Speech is Appropriate. Mood is euthymic. Affect is full. Thoughts are linear and logical. No evidence of psychosis. Reviewed daily check in sheet and no reports of suicidal ideations or intent. Client Response/Progress/Benefit: [] Pt was an active participant in group discussion. Attentive. Emotion for today is swell. Pt reports being in good spirits today. Mental health wins included not having a panic attacked while grocery shopping over the weekend. Prior to going shopping she developed a plan for anxiety management. Utilized plan which involved several skills. Proud of herself. Shared negative thoughts that enter her head while shopping which are mainly centered around others judging her appearance. Throughout the weekend she managed her emotions well through self-care and calming skills. Progress noted per pt report. Will continue in PHP today to maintain safety and prevent decompensation. Plan to discuss case further with treatment team today for possible step-down to IOP. Narrative Note: []
--- NOTE | 2021-08-12 10:05 | BH.SGPN.GN ---
Behaviors/Verbalizations/Mental Status: []Client alert and oriented, casually dressed and groomed. Eye contact good. Motor activity appropriate. Speech within normal limits. Affect constricted, mood anxious. Thoughts linear, logical, no signs of hallucinations or delusions. Client Response/Progress/Benefit: [] Pt was an attentive participant AEB taking notes and contributing occasionally. Attentive during psychoeducation on Conflict Styles ( Avoidant, Competing, Accommodating, and Collaborating). Participated in interactive group discussion on benefits of conflict.? Pt along with peers identified several reasons conflict is often avoided as well as why conflict is beneficial to one?s mental health and relationships. Pt reported connecting most with the avoiding and accommodating styles. Pt stated these styles lead to pt getting taken advantage of and not getting her needs met. Benefited from increased awareness on conflict styles. Will discharge from [facility] level of care and transition to [facility] level of care to promote mood stability and increase application of healthy coping skills. Narrative Note: []
--- NOTE | 2021-08-12 10:57 | BH.DS ---
Discharge Summary - Demographics Date of Admission:: 07/30/21 Discharge Date: 08/12/21 Presenting Problems at Admission:: The patient is a 26-year-old female with a history of bipolar disorder and depression who was referred to the [facility] behavioral health partial hospitalization program following 2 psychiatric admissions in the past month. The patient had a psychiatric admission from June 27 to July 04, 2021 and again she was admitted from July 17 to July 22, 2021 for suicidal ideation with a plan to cut her throat and wrists. Pt says her symptoms have been worsening for the past 5 months but does not know of any trigger for this. She has a history of self-harm for several years and has cut her wrist and scratched her face at times, last reported on 07/22. In addition when she gets angry she bangs her head against a wall. She states that her mother put all knives and medications out of her reach and denies any access to guns. The patient says some of her stressors are losing 5 people that she liked since 2013. The patient's ?[place]? several years ago and she states that she has had auditory hallucinations of her grandfather's voice telling her to kill herself and these have occurred since the past 5 months. She says these hallucinations only occur when she is very upset and she has not heard these voices since her discharge from the hospital on July 22, 2021. The patient also describes being paranoid and says that she is certain that she sees people and that there are people outside of her house watching her, resulting in pt covering all her bedroom windows. At time of admission, pt endorses sadness, crying spells, isolating, anhedonia, low passive thoughts of , thoughts of self-harm, low energy, worry, and feelings of being a burden. Pt?s sx are impacting her social, occupational, and ability to function at baseline resulting in [facility] level of care. Discharge Diagnoses:: 1. Bipolar one disorder, most recent episode depressed, severe without psychosis. 2. Cluster B traits: Strong. 3. History of ADHD, inattentive type. 4. Rule out alcohol use disorder. 5. Anxiety disorder, NOS Reason for Discharge:: Client has made progress while in [facility] as shown by her report of no suicidal thoughts, accomplishment of treatment goals, and report of using coping skills when experiencing triggers or feeling emotionally overwhelmed. Client to step down to IOP level of care to promote mood stability, improve functioning, and further reduce symptoms. - Treatment Progress During Treatment & Response: Client responded well to [facility] treatment as she was an attentive participant in both group and individual sessions. Client did initially struggle with anxiety in the group setting which limited engagement; however, client has improved some in this area though continues to struggle in 1st group. Client reported sharing in group is anxiety producing for her, but she is receptive to challenging herself to becoming more active in sessions. Client was consistent with completing homework and reported more actively using healthy coping skills outside of group in the past two weeks. Client continues to express motivation to improve her mental health and functioning. Client was receptive to learning new skills, increasing self-awareness into warning signs and triggers, and is more actively challenging herself to communicate with supports as well as apply coping skills even when they were outside her comfort zone. Client has demonstrated progress during PHP as client reports no suicidal ideations, some reduction in depressive symptoms and self-harming urges, increased self-awareness, some improvement in mood symptoms, and improved application of coping skills. Client has been practicing utilizing distress tolerance skills to help client sit with overwhelming emotions and prevent self-sabotaging behaviors. Issues Still to be Addressed:: Client made progress with reducing suicidal ideations and maintaining safety while in [facility]. Client had struggled early last week with increased suicidal ideation and thoughts of when experiencing overwhelming anxiety; however, has since improved her ability to manage symptoms in the moment and better communicate with supports resulting in no reported SI since last Thursday. Client can continue to benefit from utilizing coping skills she learned to manage crisis warning signs and triggers. Client would like to continue to work on reducing intrusive thinking, increasing distress tolerance skills, decreasing negative thoughts of self, and improving independent coping skill application. Client can benefit from ongoing work on emotion regulation skills, communication with supports, and reinforcing healthy coping skills. Lastly, client can benefit from IOP level of care to promote gains made in PHP and improve daily functioning. Discharge Recommendations/Instructions:: Recommended to step down to IOP level of care to maintain gains, promote daily functioning, and further stabilize mood. Client reports reduced intensity of symptoms as well as improvement with utilizing coping skills. Client would benefit from IOP to continue working on treatment goals, improve confidence in symptom management, and further increase mood stability. Discharge Handout: Complete Discharge Handout with client on aftercare options and continuity of care.
--- NOTE | 2021-08-12 11:15 | BH.SGPN.GN ---
Behaviors/Verbalizations/Mental Status: []Client alert and oriented, casually dressed and appropriately groomed. Eye contact good. Motor activity appropriate. Speech within normal limits. Affect congruent, mood euthymic. Thoughts linear, logical, no signs of hallucinations or delusions. Client Response/Progress/Benefit: []Client engaged in session AEB contributing to discussion and taking notes. Client did well to participate during the activity in which participants were challenged to eliminate various items through group consensus. Client contributed to discussion of the barriers that occurred during the activity as well as the conflict resolution strategies. Client reported she wants to work on expressing feelings with words when in a conflict. Client stated she typically will stonewall when gets upset. Client able to recognize that this can escalate the conflict and doens't result david resolution. Appeared to benefit from learning strategies to better manage conflict. Will continue IOP tx to improve daily functioning, increase healthy coping and prevent decompensation.
--- NOTE | 2021-08-12 11:29 | BH.MDN ---
Multi-Disciplinary Note - Note 45-min Individual Time Started:: 07:52 Date: 08/12/21 Purpose of session/treatment goals addressed:: The purpose of this session was to address current stressors, symptoms, and application of coping skills. Another goal was to begin discussing return to work as well as discussed discharge from [facility]. Eye Contact:: Good Motor Activity:: Appropriate Appearance:: Casual Speech:: Appropriate Mood:: Anxious, Dysthymic Affect:: Flat Thoughts:: Linear, Logical, No evidence of hallucinations/delusions noted Staff Interventions:: thought challenging, motivational interviewing, discharge planning, strengths perspective, reviewed DSM-5, goal setting - Discussed goals for IOP level of care, other - Reviewed distress tolerance skills and began discussion regarding return to work plan Client Response:: Client responded well to session, open to meeting with therapist. Client stated she is feeling ?really tired? this morning and noted that the rainy weather as well as waking up 30 minutes later than usual may be contributing factors. Discussed her weekend and noted successfully managing her emotions and warning signs for yessica throughout the weekend. Client described one instance in which she became more irritable with her mother but was able to remove herself from the situation and go for a walk which was helpful. Additionally shared using her skills of deep breathing and positive self-talk to manage anxiety while grocery shopping on Thursday. Client discussed feeling more capable of recognizing her warning signs and trigger and although she continues to struggle with consistent skill application, feels she has greatly improved in this area over the past two weeks. Noted that she had off and on negative thoughts of ?what?s the point? and urges to self-harm but no plan or intent over the weekend. Noting that painting and spending time with a friend had made these thoughts much easier to manage. Denies any active self-harming thoughts or urges. Identified increased ability to function at baseline and is beginning to make plans regarding return to work. Shared wanting to return initially on a substitute basis while she gains confidence and feels more comfortable in the work environment. Began discussion regarding client?s ideal return date which she identified as the end of August on a substitute basis. Client struggled with identifying specific concerns or fears about this return and reports willingness to think about this throughout the week and write down specific concerns and potential triggers related to her work environment. Risks/Concerns:: Client denies any suicidal ideations, plan, or intent as of 08/12/21. Progress Toward Goals/Plan:: Client has demonstrated progress towards her PHP treatment as shown by her report of reduced intensity of symptoms and decrease in suicidal ideations and self-harming urges. Client continues to endorse negative thinking, irritability, mood swings, anxiety, and difficulty being alone. Client will discharge from [facility] and drop to IOP level of care to promote continuity of care and further improve daily functioning. Time Stopped:: 08:34
--- NOTE | 2021-08-13 11:52 | BH.COMM_ITS ---
Communication Note - Communication with Client Communication Note: Client call and cancelled group on this date indicating she was tired and did not feel like coming into group this morning. Staff attempted to encourage client to attend, citing that group may aid in reducing fatigue and improve her mood. Client declined and expressed feeling she can maintain safety and would prefer to take the day off from group. Denies any SI/HI or self- harming urges. Reports willingness to check-in later this afternoon and express ed plans to attend group as scheduled tomorrow.
== END 2021-08-12 12:24 | disposition home or self-care (01) ==
LOC: BHPHP 07:57
PROVIDERS: PCP Family Medicine; Visit Provider Psychiatry & Neurology Psychiatry
DX: F31.4 Bipolar disorder, current episode depressed, severe, without psychotic features (principal); F41.9 Anxiety disorder, unspecified; Z79.899 Other long term (current) drug therapy
CPT/HCPCS: H0035; 90834; G0410

== ENCOUNTER 2021-08-11 17:28 | Emergency (ER) | payer OTHER, MEDICAID, SELFPAY ==
[2021-08-11 17:29] VITALS: BP 140/84; PULSE 102; RESP 16; TEMP 36.4; O2SAT 98; BMI 65.7
--- NOTE | 2021-08-11 19:25 | RAD_ITS ---
HISTORY: Injury/Pain COMPARISON: None FINDINGS: # of images incl. paperwork: 3 XR Foot Min 3 Views: SOFT TISSUES: Ankle and diffuse foot edema. No radiodense soft tissue foreign body. No abnormal soft tissue mineralization. OSSEOUS: No fracture. No dislocation. No erosion or periostitis. BONE MINERALIZATION: Unremarkable. RAD/Foot min 3 Views IMPRESSION: Ankle and foot edema. No acute osseous finding. at 2011 Reported and signed by: Ashwin Cerda MD Electronically Signed: Ashwin Cerda MD at 20:10 EST ,
--- NOTE | 2021-08-11 20:22 | EDS_ITS ---
HPI History of Present Illness HPI Narrative: Patient presents with left foot pain that began today. Patient states it is gradually gotten worse throughout the day today. Patient denies any trauma or injury. Patient states the pain is over the dorsal aspect of the foot. Patient describes her pain as sharp. Patient states her pain is worse with ambulation. Patient states nothing seems to help with the pain. Patient denies any paresthesias or weakness. Patient denies any radiation of the pain. Chief Complaint: Lower Extremity Injury Onset/Context/Timing Onset: Today Context: Gradual Onset Timing: Continuous Quality of Pain: Sharp Worsened by: Ambulation Relieved by: Nothing Associated Symptoms Associated Symptoms: Negative for Parasthesia, Weakness and Loss of Funtion [facility] Medical History ADHD Anemia Anxiety disorder, unspecified Arthritis Asthma Bipolar 1 disorder Cancer Cancer Cardiology follow-up encounter Abner's disease Depression Diabetes Dietary restriction Gastric reflux GERD (gastroesophageal reflux disease) Herniated disc History of echocardiogram History of irregular heartbeat History of pain when walking History of steroid therapy Injury of back Injury of head and neck Kidney stones Non-smoker Obesity Ovarian cyst PCOS (polycystic ovarian syndrome) Walker as ambulation aid Home Medications metformin 1,000 mg PO BID 06/25/18 [History Last Taken 01/30/21 08:00] ferrous sulfate 1 tab PO DAILY 05/16/19 [History Last Taken 01/24/21 08:00] cholecalciferol (vitamin D3) 125 mcg PO DAILY 05/17/19 [History Last Taken 01/24/21 08:00] epinephrine 0.3 mg IM X1 PRN #1 syringe 05/14/20 [Rx Last Taken 01/30/21 08:00] Fenofibrate 48 mg PO DAILY 07/23/20 [History Last Taken 01/30/21 08:00] sucralfate 1 gm PO 4X/DAY PRN PRN 09/20/20 [History Last Taken 01/30/21 08:00] lidocaine HCl [Lidocaine Viscous] 15 ml MUCOUS [place]BRANE Q8H PRN #100 ml 10/04/20 [Rx Last Taken 01/30/21 08:00] hydroxyzine HCl 50 mg PO QHS 01/10/21 [History Last Taken 01/30/21 08:00] metoprolol tartrate 25 mg PO DAILY 01/10/21 [History Last Taken 01/30/21 08:00] albuterol sulfate 1 puff INHALATION PRN PRN 01/25/21 [History Last Taken 01/30/21 08:00] albuterol sulfate 2.5 mg INHALATION PRN PRN 01/25/21 [History Last Taken 01/30/21 08:00] dextroamphetamine-amphetamine 20 mg PO DAILY 01/25/21 [History Last Taken 01/30/21 08:00] glimepiride 2 mg PO DAILY 01/25/21 [History Last Taken 01/30/21 08:00] lisinopril 5 mg PO DAILY 01/25/21 [History Last Taken 01/30/21 08:00] cyclobenzaprine 10 mg PO TID PRN 21 Days #30 tab 01/31/21 [Rx Last Taken Unknown] aripiprazole 15 mg PO DAILY 07/16/21 [History Last Taken Unknown] hydrocortisone 20 mg PO DAILY 07/16/21 [History Last Taken Unknown] nabumetone 500 mg PO BID 07/16/21 [History Last Taken Unknown] promethazine 25 mg PO Q6H PRN PRN 07/16/21 [History Last Taken Unknown] trazodone 100 mg PO QHS 07/16/21 [History Last Taken Unknown] dulaglutide [Trulicity] 1.5 mg SUBCUT QWEEK 07/31/21 [History Last Taken Unknown] fluticasone propionate [Flonase] 2 spray INTRANASAL DAILY 07/31/21 [History Last Taken Unknown] meloxicam [Mobic] 7.5 mg PO DAILY 07/31/21 [History Last Taken Unknown] pantoprazole 40 mg PO BID 07/31/21 [History Last Taken Unknown] vitamin B complex 1 tab PO DAILY 07/31/21 [History Last Taken Unknown] duloxetine [Cymbalta] 60 mg PO DAILY 30 Days #30 cap 08/07/21 [Rx Last Taken Unknown] Allergy/AdvReac Type Severity Reaction Status Date / Time penicillin V potassium Allergy Mild Rash Verified 08/11/21 17:31 [From Pen-Vee K] brompheniramine maleate Allergy Shortness Verified 08/11/21 17:31 [From Dimetapp of breath (brompheniramine-PPA)] celery Allergy Swelling Verified 08/11/21 17:31 phenylpropanolamine HCl Allergy Shortness Verified 08/11/21 17:31 [From Dimetapp of breath (brompheniramine-PPA)] amoxicillin trihydrate AdvReac Intermediate Diarrhea Verified 08/11/21 17:31 [From Augmentin] potassium clavulanate AdvReac Intermediate Diarrhea Verified 08/11/21 17:31 [From Augmentin] dicyclomine HCl [From Bentyl] AdvReac Nausea/Vom/ Verified 08/11/21 17:31 Diarrhea sertraline [From Zoloft] AdvReac Other Verified 08/11/21 17:31 plastic tape Allergy Rash Uncoded 06/26/21 11:57 FRUCTOSE AdvReac Nausea/Vom/ Uncoded 06/26/21 11:57 Diarrhea Family History Father Diabetes Mother Hypertension Grandmother Breast cancer 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 H/O endoscopy H/O oophorectomy H/O ovarian cystectomy H/O wisdom tooth extraction History of adrenal surgery History of back surgery History of tonsillectomy and adenoidectomy Hx of cholecystectomy Social History household members: family Smoking Status: Never smoker alcohol intake: current alcohol intake frequency: a few times a month substance use type: does not use seatbelt use: always do you feel safe at home: Yes ROS ROS ED Constitutional Constitutional ED: Denies chills or fever(s) Eyes Eyes: Denies blurry vision or change in vision ENT ENT ED: Denies rhinorrhea or sore throat Cardiovascular Cardiovascular: Denies chest pain or palpitations Respiratory/Chest Respiratory/Chest: Denies cough or dyspnea Gastrointestinal Gastrointestinal: Denies nausea or vomiting Genitourinary Genitourinary ED: Denies dysuria or hematuria Musculoskeletal Musculoskeletal: Denies back pain or neck pain Integumentary Denies abscess or rash Neurologic Neurologic: Denies headache(s) or weakness Allergic/Immunologic Allergic/Immunologic ED: Denies mouth swelling or urticaria EXAM Physical Exam Const Vital Signs: 08/11/21 17:29 Temperature 97.5 F L Temperature Source Temporal Pulse Rate 102 H Respiratory Rate 16 Blood Pressure 140/84 H Blood Pressure Mean 102 Pulse Ox 98 Oxygen Delivery Method Room Air Positive well nourished, well developed and obese General Appearance ED: well developed and NAD Nutritional Appearance: obese HEENT Reports moist mucous membranes Neck full ROM Extremity Extremity Narrative: There is tenderness and mild edema over the dorsal aspect of the left foot. There is no ecchymosis. There is no obvious deformity noted. Range of motion was slightly limited in all motions of the left foot secondary to pain. Sensation was intact to light touch in all digits. Capillary refill was less than 2 seconds in all digits. Pedal pulses are equal bilaterally. There is no tenderness over the ankle or proximal fibula. Neuro oriented x3, CN's II-XII intact bilaterally, moves all extremities and no sensory deficits noted Sensorium / Orientation: alert Motor Exam: strength 5/5 throughout Psych mental status grossly normal MDM MDM MDM Narrative Medical decision making narrative: X-rays of the left foot were obtained. There are 3 views. On my interpretation, there is no acute fracture or dislocation. There is some mild soft tissue swelling. Radiologist also interpreted the x- rays and agrees. Patient was given a postop shoe. Patient was instructed to ice and elevate the left foot. Patient was instructed to follow-up with her primary care physician in 5 to 7 days. Patient understood and was agreeable with the plan. All questions were answered. Radiography Diagnostic Testing: Clinical Impression(s) from Imaging Studies Foot X-Ray 08/11/21 19:25 IMPRESSION: Ankle and foot edema. No acute osseous finding. at 2011 Reported and signed by: Ashwin Cerda MD Electronically Signed: Ashwin Cerda MD at 20:10 EST Reading Location ID and State: [facility] / [place] Tel , Service support , Discharge Plan Triage Chief Complaint: Lower Extremity Injury ED Provider: Gio Ceron Dx/Rx/DC Orders Clinical Impression: Acute pain of left foot Instructions: ED Pain, Acute, Uncertain Cause Prescriptions: No Action metformin 1,000 MG tablet 1,000 mg PO BID RF: 0 ferrous sulfate 325 MG tablet 1 tab PO DAILY RF: 0 cholecalciferol (vitamin D3) 125 MCG capsule 125 mcg PO DAILY RF: 0 epinephrine 0.3 MG syringe 0.3 mg IM X1 PRN (Reason: Anaphylaxis) Qty: 1 RF: 0 Fenofibrate 48 mg PO DAILY RF: 0 sucralfate 1 GM tablet 1 gm PO 4X/DAY PRN PRN (Reason: Gastric Reflux) RF: 0 lidocaine HCl [Lidocaine Viscous] 2 % solution 15 ml mucous membrane Q8H PRN (Reason: pain) Qty: 100 RF: 0 albuterol sulfate 2.5 mg /3 mL (0.083 %) solution for nebulization 2.5 mg inhalation PRN PRN (Reason: ASTHMA) RF: 0 glimepiride 2 mg tablet 2 mg PO DAILY RF: 0 dextroamphetamine-amphetamine 20 mg capsule,extended release 24hr 20 mg PO DAILY RF: 0 lisinopril 5 mg tablet 5 mg PO DAILY RF: 0 albuterol sulfate 90 mcg/actuation HFA aerosol inhaler 1 puff INHALATION PRN PRN (Reason: ASTHMA) RF: 0 cyclobenzaprine 10 mg tablet 10 mg PO TID PRN (Reason: muscle spasm) 21 Days Qty: 30 RF: 0 metoprolol tartrate 25 mg Tablet 25 mg PO DAILY RF: 0 hydroxyzine HCl 25 mg Tablet 50 mg PO QHS RF: 0 trazodone 50 mg tablet 100 mg PO QHS RF: 0 promethazine 25 mg tablet 25 mg PO Q6H PRN PRN (Reason: Nausea) RF: 0 hydrocortisone 10 mg tablet 20 mg PO DAILY RF: 0 nabumetone 500 mg Tablet 500 mg PO BID RF: 0 aripiprazole 10 mg tablet 15 mg PO DAILY RF: 0 pantoprazole 40 mg Tablet,Delayed Release (Dr/Ec) 40 mg PO BID RF: 0 Trulicity 1.5 mg/0.5 mL Pen Injector 1.5 mg SUBCUT QWEEK RF: 0 meloxicam [Mobic] 7.5 mg Tablet 7.5 mg PO DAILY RF: 0 vitamin B complex Tablet 1 tab PO DAILY RF: 0 fluticasone propionate [Flonase] 50 mcg/actuation [place],Suspension 2 spray INTRANASAL DAILY RF: 0 duloxetine [Cymbalta] 60 mg capsule,delayed release(DR/EC) 60 mg PO DAILY 30 Days Qty: 30 RF: 1 Primary Care Provider: Miguelito Unger Referrals: Miguelito Unger MD [Primary Care Provider] - 5-7 Days Disposition Disposition: Home, Self Care Discharge Date/Time: 08/11/21 20:46
== END 2021-08-11 20:46 | disposition home or self-care (01) ==
PROVIDERS: Emergency Provider Emergency Medicine; PCP Family Medicine; Visit Provider Emergency Medicine
DX: M79.672 Pain in left foot (principal); E66.9 Obesity, unspecified
CPT/HCPCS: 73630; 99283

== ENCOUNTER 2021-08-14 09:09 | Outpatient (RCR) | payer OTHER, MEDICAID, SELFPAY ==
--- NOTE | 2021-08-14 09:03 | BH.SGPN.GN ---
Behaviors/Verbalizations/Mental Status: []Eye contact is good. Motor activity is appropriate. Appearance is casual. Speech is appropriate. Mood is depressed. Affect is congruent. Thoughts are linear and logical. No evidence of psychosis. Reviewed daily symptom tracker sheet with no reports of suicidal ideations, plan, or intent. Client Response/Progress/Benefit: []Client was engaged throughout group session sharing and listening attentively to others. Client reported her emotion as ?depressed?. Client discussed that she has been having trouble concentrating and is struggling to not self-isolate. Client reported not wanting to attend group today, but utilized opposite action to come. Client appeared to benefit from group discussion normalizing the experience of intrusive thoughts and discussing that thoughts are not facts. Will continue IOP treatment to prevent decompensation and increase application of healthy coping skills to improve daily functioning. Narrative Note: []
--- NOTE | 2021-08-14 11:45 | PCM.BH.PN ---
Progress Note Progress Note: History of Present Illness/Interim History: [] The patient is a 26-year-old female with a history of bipolar disorder and depression who is seen in follow-up at the [facility] behavioral health IOP program. I last saw the patient 1 week ago and at that time the Cymbalta was increased to 60 mg p.o. daily. The patient states that she is feeling better with a better mood until today. She states that she missed her Abilify and Cymbalta doses yesterday and remembered late last night but still has not taken her doses for yesterday yet today. The patient has had consistent attendance at the IOP program and is engaged when present. The patient states that she had not had any suicidal ideation in the last week until late yesterday when she had some passive, fleeting suicidal thoughts. She thought about suicide by hanging with the rope but states she has no access to a rope and it was passive. The patient has had some urges to self-harm and she admits that she burned her right leg yesterday. She also admits to having some alcohol over the weekend which she states was a few sips only on Thursday and Thursday last weekend. The patient at times during the history appears to pause and hesitate to be truthful in the interview and some of her answers were changed during the interview. The patient states that she is not following her safety plan now because she feels she is somewhat better and she does not want to be unable to be home alone and she does not want to have to have her doors open when she is home with others. She denies any new stresses. She also denies any access to knives or medications. She denies homicidal ideation, active suicidal ideation, hallucinations, delusions except for her baseline mild paranoia. Current Psychiatric Medications: [] Abilify 15 mg p.o. nightly (x6 weeks); Cymbalta 60 mg p.o. daily (times dose increased 1 week ago); trazodone as needed at bedtime and Vistaril as needed for panic attacks. Patient was noncompliant with her medications yesterday. Mental Status Examination: [] Patient is an obese female who is seen wearing a mask due to the pandemic and is casually dressed and groomed with good hygiene. She has no psychomotor agitation or retardation. Eye contact is fair but the patient looks down and pauses when she is hesitant to admit to certain feelings or deeds. Speech is normal rate and rhythm and fluent with no pressure. Mood is mildly depressed. Affect is constricted. Thought process is goal-directed and organized. Thought content: There is evidence of self-harm yesterday which was a mild burn on her right leg. There is evidence of fleeting, passive suicidal ideation late yesterday with a plan or imagined hanging with the rope but there is no access to a rope according to the patient. There has been noncompliance with medication. Reality testing is intact. Judgment is intact but limited. Insight is limited. Impulsivity is high. Diagnoses: [] 1. Bipolar 1 disorder, most recent episode depressed, severe without psychosis 2. Strong cluster B traits 3. History of ADHD, inattentive type 4. Alcohol use disorder 5. Anxiety disorder, NOS (F 41.9) 6. Primary support and work issues Plan: [] The patient will continue the IOP program at [facility] as the structure, support, education and group therapy will hopefully prevent worsening of the patient's symptoms that might we require readmission to the hospital. The patient had 2 psychiatric admissions in June and July 2021 for suicidal ideation with a plan. The risks, options, and possible side effects of the medications were again discussed with the patient and the importance of compliance with medications and she understands and accepts this. She felt safe during the interview today and if she does not feel safe she agrees to let us know or go to the emergency room. No medication changes were made today. The patient is encouraged to discuss with her counselor again possible safety plan and mild modifications to it in order for her to comply. The patient is encouraged to not use any alcohol. She will continue to follow-up with her outpatient medical and psychiatric providers and I will see the patient in follow-up in 1 week.
--- NOTE | 2021-08-14 14:14 | BH.MTP ---
Master Treatment Plan - Patient Information Program Physician:: Dr. Lluvia Rodriguez Primary Therapist:: MAURY Mckeon - Psychiatric Diagnoses Psychiatric Diagnoses:: 1. Bipolar 1 disorder, most recent episode depressed, severe without psychosis. 2. Strong cluster B traits. 3. History of ADHD, inattentive type. 4. Alcohol use disorder. 5. Anxiety disorder, NOS (F 41.9) Diagnosis Code(s):: F 31.4 - Estimated LOS Estimated LOS (in weeks):: 6 Problem/Goal #1 - Problem/Goal #1 Stated Goal:: Client will reduce depression, feelings of hopelessness, and suicidal ideation through Intensive Outpatient Program. Description of Barriers: Client verbalizing a lot of displaced guilt and fear of being a burden. She struggles with independent skill application, low motivation, limited self-accountability, and reports hx of treatment ineffectiveness. Client has a hx of impulsivity and poor emotion regulation. Functional Impact: The patient is a 26-year-old female with a history of bipolar disorder and depression who was referred to the [facility] behavioral health partial hospitalization program following 2 psychiatric admissions in the past month. The patient had a psychiatric admission from June 27 to July 04, 2021 and again she was admitted from July 17 to July 22, 2021 for suicidal ideation with a plan to cut her throat and wrists. Any lethal means have since been secured and client declines any active SI since 08/05/21. She does continue to endorse passive SI, but is able to manage these thoughts and notes reduction in severity and frequency. Client completed 2 weeks of PHP and did well with improving ability to utilize coping skills and communicate with supports which resulted in symptom reduction. However, client continues to report issues with purposelessness, depressive sx, intrusive thoughts, mood swings, and anxiety. Client continues to have difficulties in proactively using coping skills when noticing warning signs or triggers and struggles with self-deprecation. Client?s functioning is improving, but it is still not at her baseline. - Objectives Objective #1 Stated Objective: Client will learn and utilize 2-3 healthy coping strategies to manage depressive symptoms and improve emotion regulation. Interventions: Therapist will utilize CBT techniques to assist client with understanding the connection between thoughts, feelings and behaviors. Education will be provided on behavioral activation. Therapist will assist client in learning internal coping strategies to manage depressive symptoms, along with helping client identify triggers. Discharge Criteria: Client will have achieved this goal when can verbalize and practiced at least 2 healthy coping strategies that successfully manage depressive symptoms. Target Date: 09/24/21 Review Date: 09/03/21 Objective #2 Stated Objective: Pt will decrease depressive symptoms AEB pt?s score on the DSM 5 cross-cutting measure and improve pt?s daily functioning. Interventions: Through groups and individual therapy, pt will be provided with education on cognitive distortions, mistaken beliefs, and identifying and combating negative self-talk. Therapist will assist pt with getting back into the activities she once enjoyed as well as increasing healthy coping strategies. Discharge Criteria: Pt will have met this goal when pt?s score on the DSM 5 cross cutting measure for depression has been decreased and per pt?s report daily functioning has improved. Target Date: 09/24/21 Review Date: 09/03/21 Problem/Goal #2 - Problem/Goal #2 Stated Goal:: Stabilize anxiety level causing increased rumination and impeding ability to function on daily basis. Description of Barriers: Client verbalizing a lot of displaced guilt and fear of being a burden. She struggles with independent skill application, low motivation, limited self-accountability, and reports hx of treatment ineffectiveness. Client has a hx of impulsivity and poor emotion regulation. Functional Impact: The patient is a 26-year-old female with a history of bipolar disorder and depression who was referred to the [facility] behavioral health partial hospitalization program following 2 psychiatric admissions in the past month. The patient had a psychiatric admission from June 27 to July 04, 2021 and again she was admitted from July 17 to July 22, 2021 for suicidal ideation with a plan to cut her throat and wrists. Any lethal means have since been secured and client declines any active SI since 08/05/21. She does continue to endorse passive SI, but is able to manage these thoughts and notes reduction in severity and frequency. Client completed 2 weeks of PHP and did well with improving ability to utilize coping skills and communicate with supports which resulted in symptom reduction. However, client continues to report issues with purposelessness, depressive sx, intrusive thoughts, mood swings, and anxiety. Client continues to have difficulties in proactively using coping skills when noticing warning signs or triggers and struggles with self-deprecation. Client?s functioning is improving, but it is still not at her baseline. - Objectives Objective #1 Stated Objective: Client will identify 2-3 anxiety and paranoia triggers and 2 healthy calming coping skills to use when feeling anxious to reduce anxiety as shown by decreased DSM-5 cross-cutting score. Interventions: Therapist will help client increase awareness of cognitive distortions, paranoia triggers, and physical warning signs of anxiety. Therapist will encourage client to focus on stressors in her control and teach client calming and mindfulness techniques. Therapist will encourage client to focus on stressors in their control and teach client distress tolerance techniques. Discharge Criteria: Client will have achieved this goal when can verbalize at least 2 calming skills and successfully implement skills to reduce anxious symptoms. Pt's score on the DSM 5 cross cutting measure for anxiety has been decreased and per pt?s report daily functioning has improved. Target Date: 09/24/21 Review Date: 09/03/21
--- NOTE | 2021-08-16 09:06 | BH.SGPN.GN ---
Behaviors/Verbalizations/Mental Status: []Eye contact is fair to good. Motor activity is appropriate. Appearance is casual. Speech is Appropriate, quiet with minimal input provided. Mood is anxious. Affect is constricted. Thoughts are linear and logical. No evidence of psychosis. Reviewed daily check in sheet and no reports of suicidal ideations or intent. Client Response/Progress/Benefit: []Pt receptive of session and attentive throughout, however remained a passive participant. Nodding and laughing at various points in session, though opted not to share this morning. Reports current emotion as ?tired? today. Pt continues to struggle with engaging in process group and often limits her responses in group when discussing her personal mental health. This may serve as a limitation to consistent tx progress as it prevents pt from reflecting on progress, barriers, or holding herself accountable. Pt appeared to benefit from supportive group environment and discussions. Will continue with IOP tx to improve consistent use of, continue to stabilize mood, and prevent decompensation.
--- NOTE | 2021-08-16 11:15 | BH.SGPN.GN ---
Behaviors/Verbalizations/Mental Status: []Client alert and oriented, casually dressed and groomed. Eye contact fair. Motor activity appropriate. Speech within normal limits. Affect constricted, mood anxious. Thoughts linear, logical, no signs of hallucinations or delusions Client Response/Progress/Benefit: []Pt did well to remain attentive throughout session, AEB providing input throughout discussion. Engaged as group reviewed the importance of taking a strengths-based approach to foster a healthier perspective and better manage mental health symptoms. Completed strengths exploration worksheet and identified personal strengths to include: artistic ability, honesty, and creativity. Pt reported these strengths are currently helping pt release emotions and gain self-care. Pt stated self-sabotage and lack of motivation keep pt from using strengths and pt helped group identify strategies to increase acknowledgement of strengths. Benefited from identifying personal strengths and strategies for enhancing use of identified strengths. Pt to continue IOP tx as pt continues to struggle with mood instability, lack of motivation, and negative thinking patterns. Narrative Note: []
--- NOTE | 2021-08-16 11:30 | BH.MDN_ITS ---
Multi-Disciplinary Note - Note 45-min Individual Time Started:: 10:27 Date: 08/16/21 Purpose of session/treatment goals addressed:: The purpose of this session was to address current stressors, symptoms, and barriers impeding consistent application of coping skills. Another goal was to review strategies for breaking current depression/mood instability maintenance cycle. Eye Contact:: Fair Motor Activity:: Appropriate Appearance:: Casual Speech:: Appropriate Mood:: Anxious Affect:: Congruent Thoughts:: Linear, Logical, No evidence of hallucinations/delusions noted Staff Interventions:: thought challenging, motivational interviewing, psychoeducation on: - maintenance cycles, positive affirmations, CBT techniques, goal setting, taught coping skills - DBT STOPP technique Client Response:: Client responded well to session, open to meeting with therapist. Client stated she had a good day yesterday and is looking forward to the weekend as she has plans to attend a friend?s birthday republican. Shared feeling excited about this but acknowledges the risk as she will be in an environment where alcohol is present. Reviewed with therapist the potential risks of consuming alcohol on pt moods stability and ability to self-regulate. Reports feeling capable of monitoring her consumption and denies beliefs that consuming alcohol could be a potential trigger for mood instability. Receptive however of discussion on harms reduction and reports plans to consume beer rather than hard liquor as this is a lower alcohol content, additionally expressed plans to limit herself to only two beverages. Expressed she can hold herself accountable by communicating this plan with supports and only bringing two drinks with her. Went on to indicate that although she is doing well today, she had several moments of mood instability throughout the week. Expressed waking up on Thursday morning ?screaming and crying for no reason? and reports cancelling plans to attend [facility] tx on that date despite knowing this may have improved her mood and h elped to prevent isolating throughout the day. Shared she ended up staying in bed a majority of the day instead and struggled with negative thoughts of ?what?s the point?? or ?Why bother??. Declines making any efforts to challenge these thoughts or use opposite action to use a healthy coping skill she has previously identified on her trigger action plan. Denies looking at her trigger action plan in times of increased negative thinking. Explained she did however challenge herself to get out of bed to make dinner, but quickly became triggered by her father?s comments. Declines reaching out to a support or using another skill and instead ruminated on her negative thoughts, which ultimately resulted in client engaging in self-harming behavior via burning herself with ice and salt. Denies this was suicidal in nature. Able to recognize self-sabotaging behaviors throughout the day and was receptive of discussion regarding maintenance cycles. Discussed DBT STOPP technique to begin reducing impulsive emotional responses when triggered. Client and therapist worked to identify client own maintenance cycles and the role of negative self-talk in maintaining current unhealthy coping behaviors. Pt reports not believing positive self-talk statements when attempting to use them in the past. Receptive of psychoeducation on creating believable positive affirmations and challenging negative thoughts. Worked with therapist to create several self-talk statements client finds to be more believable and reports plans to practice implementing these over the weekend. Risks/Concerns:: Client denies any active suicidal ideations, plan, or intent as of 08/16/21. Reports self-harming earlier this week but denies this was suicidal in nature. Progress Toward Goals/Plan:: Continues to struggle with consistent progress as pt skill implementation is often variable and mood dependent. Pt ability to regulate emotions continues to be impeded by limited motivation and self- accountability. Pt self-reports self-sabbotaging behaviors and not reaching out to supports or challenging herself to utilize her skills when feeling triggered or experiencing negative thought patterns. Does report overall improved mood and reduced depressive sx however. Denies any active SI since 08/05/21. Pt will continue IOp tx to promote mood stability and consistent skill application, as well as further improve daily functioning. Time Stopped:: 11:03
--- NOTE | 2021-08-19 09:01 | BH.SGPN.GN ---
Behaviors/Verbalizations/Mental Status: [] Eye contact is good. Motor activity is appropriate. Appearance is casual. Speech is Appropriate. Mood is euthymic. Affect is congruent. Thoughts are linear and logical. No evidence of psychosis. Reviewed daily check in sheet and no reports of suicidal ideations or intent. Client Response/Progress/Benefit: [] Pt was an active participant in group discussion. Attentive. Provided appropriate feedback. Pt reported mental health win as having a good time with friends for a birthday alliance party. Pt stated she couldn't identify any other mental health wins from the weekend. Therapist tried to challenge pt to identify if used any skills at outing with friends or if felt less anxious while out in public. Pt stated she just kept to herself during the alliance party. Pt seemed to minimize any idea therapist had about mental health wins pt could identify. Benefited from group support, encouragement, and feedback. Progress could be hindered if pt continues to focus on the negatives and not allow self to identify her wins. Will continue in IOP to maintain safety, increase healthy coping, and to improve functioning. Narrative Note: []
--- NOTE | 2021-08-19 10:05 | BH.SGPN.GN ---
Behaviors/Verbalizations/Mental Status: []Client alert and oriented, casually dressed and groomed. Eye contact good. Motor activity appropriate. Speech within normal limits. Affect congruent, mood euthymic. Thoughts linear, logical, no signs of hallucinations or delusions. Client Response/Progress/Benefit: []Client responded well to session AEB sharing and listening attentively to others. Client participated in group discussion identifying what makes up a support system, what weakens it, and the benefits of social support. Client identified lack of communication and trust as weakening support systems. Client participated in experiential activity illustrating the importance of social support as well as modeling communication that strengthens support systems. Appeared to benefit from increased knowledge of social support and self-awareness of personal support system. Will continue IOP treatment to increase mood stability and increase depression management skill to improve daily functioning. Narrative Note: []
--- NOTE | 2021-08-19 11:15 | BH.SGPN.GN ---
Behaviors/Verbalizations/Mental Status: []Client alert and oriented, casually dressed and groomed. Eye contact good. Motor activity appropriate. Speech within normal limits. Affect congruent-laughing, mood euthymic and anxious. Thoughts linear, logical, no signs of hallucinations or delusions. Client Response/Progress/Benefit: []pt was an active participant throughout AEB contributing to discussion, providing personal examples, and taking notes. Pt processed emotions pt felt in the activity and how pt coped in the moment. Pt provided input during discussion on the types of support our supports can provide. Pt reports wanting to work on increasing emotional support, noting this will provide pt validation and challenge perspective. Pt plans to improve this support by exploring the resources at [facility]. Pt seemed to benefit from identifying the type of support and how this support will aid in promoting overall mental wellness. Progress noted in pt?s report of utilizing calming skills in the moment today to prevent a panic attack. Will continue IOP tx to prevent decompensation, improve emotional regulation skills, and increase application of healthy coping skills. Narrative Note: []
--- NOTE | 2021-08-21 09:00 | BH.SGPN.GN ---
Behaviors/Verbalizations/Mental Status: []Eye contact is good. Motor activity is appropriate. Appearance is casual. Speech is appropriate. Mood is euthymic. Affect is congruent. Thoughts are linear and logical. No evidence of psychosis. Reviewed daily symptom tracker sheet with no reports of suicidal ideations, plan, or intent. Client Response/Progress/Benefit: []Client was engaged throughout group session, sharing and listening attentively to others. Client reported her emotion as ?hopeful?. Client discussed that she is both excited and nervous as she is returning to her job today. Client stated that she struggles to say no to her boss when she is asked to cover shifts. Client appeared to benefit from supportive feedback and discussion regarding boundary setting with manager lsw. Progress noted AEB client report of increased mood and decreased anxiety symptoms. Will continue IOP treatment to continue increasing mood stability and healthy coping skills to improve daily functioning. Narrative Note: []
--- NOTE | 2021-08-21 11:20 | BH.SGPN.GN ---
Behaviors/Verbalizations/Mental Status: []Client alert and oriented, casually dressed and groomed. Eye contact fair. Motor activity appropriate. Speech within normal limits. Affect constricted, mood dysthymic. Thoughts linear, logical, no signs of hallucinations or delusions. Client Response/Progress/Benefit: []Client engaged in session AEB client listening attentively to peers and providing input. Attentive during psychoeducation on 4 zones of regulation. Client able to identify feelings and behaviors for each zone. Client identified coping skills one can use to support self in each zone which included: go to friends house, paint, breathing, and stress ball. Client reports she can benefit from practicing personal hygiene, paint, and progressive muscle relaxation. Benefited from increased education on zones of regulation or stages of alertness for emotions and healthy coping skills to use for each zone. Will continue IOP tx to prevent decompensation, increase consistent use of healthy coping skills, challenge negative thoughts.
--- NOTE | 2021-08-21 15:41 | BH.MDN_ITS ---
Multi-Disciplinary Note - Note 45-min Individual Time Started:: 10:22 Date: 08/21/21 Purpose of session/treatment goals addressed:: The purpose of this session was to address current stressors, symptoms, and tx progress. Another goal was to review alternatives to self-harming behaviors and address motivations to change. Eye Contact:: Good Motor Activity:: Restless Appearance:: Casual Speech:: Appropriate Mood:: Anxious Affect:: Congruent Thoughts:: Linear, Logical, No evidence of hallucinations/delusions noted Staff Interventions:: thought challenging, motivational interviewing, psychoeducation on: - self-sabotage and maintenance cycles., CBT techniques, completed risk assessment / safety planning Client Response:: Client receptive to session, open to meeting with therapist. Client in a positive mood and discussed that she overall has been feeling better and has been experiencing reduced suicidal ideation, noting a reduction in negative self-talk and isolating. Additionally noted plans to begin grief counseling through hospice to aid in better managing her grief related triggers, especially as she plans to return to work the end of this month. Shared that she did well to manage her anxiety when setting up for and attending a friend?s birthday alliance party over the weekend. Described using skills of deep breathing, taking breaks, and knowing her limits. Shared staying longer than she had expected as a result and having an enjoyable experience. Went on to indicate that she did however struggle over the past two days, expressing increasing thoughts of ?I don?t need to take my meds. They make me weak? and urges to act impulsively. Expressed feelings of emptiness which resulted in client feeling restless and uncomfortable, describing increased urges to drink or engage in self-harming behaviors. Denies completing her homework to practice using the DBT STOPP skill in moments of dysregulation and indicated that she did not attempt to apply any skills to better manage her impulsive urges at that time. Shared s he instead contacted a friend to take her to purchase alcohol. Notes consuming 4 alcoholic beverages at 9% each on Thursday night as a result and indicated that her friends had been present but had not been drinking with her. Client expressed ?I think I?m replacing my self-harming behaviors with drinking?. Receptive of reviewing maintenance cycles and client self-sabotage. Client again denies using her healthy coping and Trigger Action Plan, indicating ?I didn?t have it with me?. Receptive of taking a picture of her plan on her phone to ensure she always has access to reminders of safe and healthy coping skills. Client ultimately admits to not wanting to use healthier skills in the moment on Thursday. Aware of and able to identify potential mental health risks of continued alcohol misuse. Reviewed healthier alternatives and discussed supports she has that would help to encourage client not to drink. Additionally, discussed resources locally for substance use support such as AA. Client declined at this time. Risks/Concerns:: Client denies any active suicidal ideations, plan, or intent as of 08/21/21. Denies self-harming behaviors since 08/13/21. Reports however in creasing alcohol use which in a concern regarding client impulse control and ability to utilize healthy coping skills when experiencing dysregulation. Client reports awareness of risks of alcohol consumption and expressed plans to reduce overall use. Will continue to follow-up. Encouraged AA and sobriety. Progress Toward Goals/Plan:: Continues to struggle with consistent progress as pt is an inconsistent historian. She often reports improved skill implementation in one moment and then discusses an area of significant regression within the same session. Client struggles with consistency and motivation to consistently apply healthy skills. She reports continued impulsivity and limited utilization of the healthy skills she has used in moments in which she has urges to act on impulse. Struggles with consistent homework completion and often explains her behaviors by focusing on her mood or the external stressor rather than addressing her own self-sabotaging behaviors until they are directly brought to light. Continues to struggle with selective communication with supports as well, noting she does not want to share when she is struggling despite acknowledging the importance of doing so. Pt will continue IOp tx to continue to promote mood stability and consistent skill application, reduce self-sabotage behaviors, and prevent decompensation. Time Stopped:: 11:12
--- NOTE | 2021-08-23 09:00 | BH.SGPN.GN ---
Behaviors/Verbalizations/Mental Status: []Eye contact is fair. Motor activity is appropriate. Appearance is casual. Speech is Appropriate. Mood is dysthymic. Affect is incongruent AEB pt talking about distressing situations and smiling. Thoughts are linear and logical. No evidence of psychosis. Reviewed daily check in sheet and no reports of suicidal ideations or intent. Client Response/Progress/Benefit: []Pt responded well to session AEB sharing thoughts and feelings and listening attentively to peers. Pt reported mental health positive as returning to work yesterday and it going really well. Pt stated her stressors are finding out she has diabetic neuropathy, bones in feet being impacted by diabetes and has another ovarian cyst. Pt reported the doctor did give her orthotics to help with her bones. Pt stated anxious about ovarian cyst since she has hx of cancer. Pt identified additional positive as making it to IOP despite wanting to stay home. Pt reported she has not been using her trigger action plan or other healthy coping skills. Identified negative thoughts and motivation as barriers. Group provided suggestions and ideas to help pt increase follow through with skills. Progress limited. Pt to continue IOP to increase consistent application of healthy coping skills, challenge negative thoughts and prevent decompensation.
--- NOTE | 2021-08-23 10:14 | BH.SGPN.GN ---
Behaviors/Verbalizations/Mental Status: []Client alert and oriented, casually dressed and groomed. Eye contact good. Motor activity appropriate. Speech within normal limits. Affect flat, mood depressed and irritable. Thoughts linear, logical, no signs of hallucinations or delusions. Client Response/Progress/Benefit: []Pt was a passive participant in group discussion and activity. Attentive during psychoeducation. Pt participated in group discussion in which group defined fixed mindset and provided insight on how a fixed mindset could impact mental health. Pt?s fixed mindset thoughts included: something bad will happen? and ?the medication will stop working so why take it.? Pt stated fixed thinking results in pt wanting to self-harm and get angry at herself for medical and mental health issues. Benefited from increased awareness on the role of fixed mindset on mental health. Will continue in IOP to prevent decompensation, increase the application of healthy coping skills, and increase distress tolerance skills. Narrative Note: []
--- NOTE | 2021-08-23 11:14 | BH.SGPN.GN ---
Behaviors/Verbalizations/Mental Status: []Client alert and oriented, casually dressed and groomed. Eye contact good. Motor activity appropriate. Speech within normal limits. Affect congruent. mood anxious and euthymic. Thoughts linear, logical, no signs of hallucinations or delusions. Client Response/Progress/Benefit: []Client engaged during activity and discussion AEB providing some input, as well as taking notes throughout. Client did well to engage as group worked on identifying characteristics and benefits of adopting a growth mindset. Worked with fellow participants in reframing the example fixed thoughts into growth mindset thoughts and providing ideas when encouraged throughout. Continues to struggle with engagement in group settings at times, however. Client worked in small group to apply skills learned to reframe own personal fixed thoughts. Reframed personal fixed thought of ?The meds won?t work, so why take them?? with growth mindset thought of ?I don?t know that for sure and if they don?t I can always try something else to see if it helps?. Noted that this would aid in improving willingness to try medication and stay more consistent with the meds she does take. Benefitted from discussing benefits of growth mindset and brainstorming strategies for prompting growth-mindset. Will continue IOP tx to continue to promote active skill application, improve mood stability, as well as continue to improve healthy coping repertoire. Narrative Note: []
--- NOTE | 2021-08-26 09:00 | BH.SGPN.GN ---
Behaviors/Verbalizations/Mental Status: []Pt alert and oriented, casually dressed and groomed. Eye contact good, motor activity appropriate, speech within normal limits. Affect, congruent-smiling. Mood appeared euthymic. Thoughts linear, logical, no signs of hallucinations or delusions. Reviewed pt's daily symptom tracker, no SI indicated. Client Response/Progress/Benefit: P[]Pt responded well to session, but declined to share during check-in. Pt was attentive, joking, and providing supportive statements to peers. Pt's daily symptom tracker did not indicate any significant changes in symptoms and pt appeared to be in a good mood. Pt has declined to share in process group in the past, so this is not unusual behavior, but staff will continue to monitor for any warning signs for decompensation. Pt did report to this therapist after group ended that she was able to stop herself from binge drinking this weekend which is a positive. Progress continues to be variable based on the day/week as pt's mood is often determined by external situations. Pt to continue IOP tx to prevent decompensation, increase application of healthy coping skills, and improve distress tolerance. Narrative Note: []
--- NOTE | 2021-08-26 10:10 | BH.SGPN.GN ---
Behaviors/Verbalizations/Mental Status: [] Eye contact is good. Motor activity is appropriate. Appearance is casual. Speech is Appropriate. Mood is depressed. Affect is flat. Thoughts are linear and logical. No evidence of psychosis. Client Response/Progress/Benefit: [] Pt was an active participant in group discussion and activity. Attentive during psychoeducation on social stigma vs self-stigma. Pt was actively involved in interactive discussion on the question of What impacts how we define and view ourselves? Pt along with peers were able to identify several aspects that impact how we view ourselves which include; society, past experiences, upbringing, guilt over past actions, shame, what we tell ourselves, actions, and our roles (i.e. mother, father, unemployed, crazy). Pt also participated in identifying examples of social stigma for mental health illness which included too sensitive, looking for attention, overly emotional, psycho, crazy, just an excuse, not working hard enough, lazy, mental health is not real, just a pessimist, and mental health can just be turned off. Benefited from increased awareness of how mental health stigma can impact individuals and treatment. Plan is to continue in IOP to maintain safety, prevent decompensation, increase healthy coping, and improve functioning to return to work full-time. Narrative Note: []
--- NOTE | 2021-08-28 09:00 | BH.SGPN.GN ---
Behaviors/Verbalizations/Mental Status: [] Eye contact is fair. Motor activity is appropriate. Appearance is casual. Speech is Appropriate. Mood is anxious. Affect is congruent. Thoughts are linear and logical. No evidence of psychosis. Reviewed daily check in sheet and no reports of suicidal ideations or intent. Client Response/Progress/Benefit: [] Pt was a passive participant AEB pt providing limited input, however did appear to listen attentively to others. Pt reported she did not want to share this morning. Per pt's symptoms tracker she did not report any thoughts of suicide which would indicate progress from when first started IOP. Benefited from group support, encouragement, and feedback. Progress could be hindered if pt continues to not share in group because doesn't provided opportunity for feedback or different perspective. Will continue in IOP to challenge negative thinking, increase healthy coping and prevent decompensation.
--- NOTE | 2021-08-28 11:10 | BH.SGPN.GN ---
Behaviors/Verbalizations/Mental Status: []Client alert and oriented, casually dressed and groomed. Eye contact good. Motor activity appropriate. Speech within normal limits. Affect constricted, mood dysthymic. Thoughts linear, logical, no signs of hallucinations or delusions. Client Response/Progress/Benefit: []Client engaged participant AEB client taking notes during discussion. Attentive throughout group discussion on the various areas of self-care, benefits, and types of self-care activities for each area. Client completed worksheet which identified current self-care practices and what self-care activities client wants to start using. Client selected physical self-care as the area of self-care client would like to improve. Client plans to do this by improving her personal hygiene, diet, and hydration. Client reports she is doing well with psychological self-care. Appeared to benefit from completing the self-care evaluation and gaining insights into current self-care practices, as well as identifying areas in which she would like to improve upon. Will continue IOP tx to improve impulse control and emotional regulation skills to improve functioning. Narrative Note: []
--- NOTE | 2021-08-28 11:56 | PCM.BH.PN_ITS ---
Progress Note Progress Note: History of Present Illness/Interim History: [] The patient is a 26-year-old female with a history of bipolar disorder and depression who is seen in follow-up at the [facility] area last saw the patient 2 weeks ago and she was admitted to [facility] and downgraded from [facility]. The patient feels she is learning valuable skills in the program in the last few weeks and is trying to learn how to apply them well in her daily life. The patient states that she is doing better overall. Her mood is still down but not as often or as seriously depressed as before. 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 She has not missed any medication doses since our last visit so compliance has improved. She denies any thoughts of self-harm or action of self-harm. She has had more event temptation to drink alcohol. She has drank alcohol 2 days in the past week. She drank 4 drinks on 1 day and only 1 drink on the the next day. She is trying to decrease her alcohol use. The patient states that she has not had any suicidal ideation since 3 weeks ago. She denies any homicidal ideation, plan for suicide, self-harm, hallucinations or delusions. Current Psychiatric Medications: [] Abilify 15 mg p.o. nightly (x8 weeks); Cymbalta 60 mg p.o. daily (dose increased 3 weeks ago); trazodone as needed at bedtime and Vistaril as needed for panic attacks. Mental Status Examination: [] Patient is an obese female who is seen wearing a mask due to the pandemic and is casually dressed and groomed with good hygiene. She has no psychomotor agitation or retardation. Eye contact is fair but patient looks down often during the interview. Speech is normal rate and rhythm and fluent with no pressure. Mood is depressed. Affect is constricted. Thought process is goal-directed and organized. Thought content: There is no evidence of self-harm and no evidence of suicidal ideation. There is no evidence of homicidal ideation, hallucinations or delusions. Judgment is intact but limited. Insight is limited but improving. Impulsivity is high. Diagnoses: [] 1. Bipolar 1 disorder, most recent episode depressed, severe without psychosis 2. Strong cluster B traits 3. History of ADHD, inattentive type 4. Alcohol use disorder 5. Anxiety disorder, NOS (F 41.9) 6. Primary support and work issues Plan: [] The patient will continue the IOP program at [facility] as the structure, support, education and group therapy will hopefully prevent worsening of the patient's symptoms that could require admission to the hospital. The patient felt safe during the interview and if it anytime she does not feel safe she agrees to let us know or go to the emergency room. The risks, options and possible complications and side effects of the medications were again discussed with the patient and she understands and accepts this. No medication changes were made today. The patient is encouraged to abstain from alcohol or any other drug use. She will continue to follow-up with her outpatient medical and psychiatric providers and I will see the patient in follow-up in 1 to 2 weeks.
--- NOTE | 2021-08-30 09:05 | BH.SGPN.GN ---
Behaviors/Verbalizations/Mental Status: [] Eye contact is good. Motor activity is appropriate. Appearance is casual. Speech is normal. Mood is euthymic. Affect is full. Thoughts are linear and logical. No evidence of psychosis. Reviewed daily check in sheet and no reports of suicidal ideations or intent. Client Response/Progress/Benefit: [] Pt was an active participant in group discussion. Attentive. Provided appropriate feedback. Emotion for today is disconnected. No distress noted on daily symptom tracker. Shared mental health win is I'm here stating some challenges with mood and motivation this AM. Another win was that she made an appointment for outpatient counseling at a local agency. She has not had consistent counseling for several years. She discussed the obstacles to reaching out in the past. Group empathized and provide feedback for approaching her initial appointment. She talked at length regarding feeling disconnected and dissociated. Group members shared their experiences with feeling disconnected when depressed or overwhelmed which was beneficial. Group encouraged some skills similar to mindfulness which had helped some in the past. Progress noted per pt report. Benefited from group support, encouragement,and feedback. Will continue in IOP to maintain safety, prevent decompensation, and increase healthy coping skills. Narrative Note: []
--- NOTE | 2021-08-30 10:15 | BH.SGPN.GN ---
Behaviors/Verbalizations/Mental Status: []Client alert and oriented, neatly dressed and groomed. Eye contact good. Motor activity appropriate. Speech within normal limits. Affect congruent, mood euthymic. Thoughts linear, logical, no signs of hallucinations or delusions. Client Response/Progress/Benefit: []Pt was an active participant in group discussion and activity. Attentive during psychoeducation on coping skills and gave examples of unhealthy coping skills shut as lashing out, internalizing, self-harming, and drinking. Discussed using these coping skills to escape emotions and stressors. Benefited from increased understanding of unhealthy coping skills and the need for developing healthy interna and external coping skills. Pt will continue in IOP to prevent decompensation, increase distress tolerance skills, and reduce use of unhealthy coping skills. Narrative Note: []
--- NOTE | 2021-08-30 11:15 | BH.SGPN.GN ---
Behaviors/Verbalizations/Mental Status: []Client alert and oriented, casually dressed and groomed. Eye contact good. Motor activity appropriate. Speech within normal limits. Affect congruent, mood anxious and euthymic. Thoughts linear, logical, no signs of hallucinations or delusions. Client Response/Progress/Benefit: [] Client responded well to session AEB taking notes and providing input and examples throughout, more actively engaged than in previous sessions. Group discussed the different categories of coping skills which included distraction, emotional release, grounding, self-love, and thought challenging. Client created a coping skill menu identifying various skills she could try in each category. Client?s coping skill menu included: pairing an unwanted activity w/something enjoyable, aromatherapy, boxing, going to therapy, and asking for help from others. Appeared to benefit from increasing repertoire of healthy coping skills. Will continue tx to further promote mood stability, improve consistent use of distress tolerance skill application, and prevent decompensation. Narrative Note: []
--- NOTE | 2021-08-30 14:33 | BH.MDN_ITS ---
Multi-Disciplinary Note - Note 30-min Individual Time Started:: 08:02 Date: 08/30/21 Purpose of session/treatment goals addressed:: The purpose of this session was to address current stressors, symptoms, and tx progress. Another goal was to review mindfulness strategies for reducing feelings of numbness and disconnection. Eye Contact:: Good Motor Activity:: Appropriate Appearance:: Casual Speech:: Appropriate Mood:: Euthymic, Anxious Affect:: Congruent Thoughts:: Linear, Logical, No evidence of hallucinations/delusions noted Staff Interventions:: psychoeducation on: - borderline personality disorder, mindfulness, mindfulness skills, discharge planning, strengths perspective, taught coping skills Client Response:: Client receptive to session, open to meeting with therapist. Client reports overall that she is having a good week and is feeling she is making progress. Shared she is proud of herself as she has been able to refrain from drinking alcohol when bored or having a bad day. Noted she has not had an alcoholic beverage in 5 days and that she had only consumed one drink while at dinner with a friend at that time as well. Client noted that she plans to only drink on social occasions and limit her consumption to no more than 2 beverages. Acknowledged the importance of identifying her intentions behind drinking alcohol prior to engaging in the behavior as well and notes understanding of the potential dangers in drinking when bored, upset, or to cope with difficult stressors. Went on to discuss continuing to use painting and spending time with supports as helpful coping skills. Expressed she has noticed recent difficulties with emotional numbness and feeling distant or disconnected from others when trying to engage with supports. Explained ?I don?t know what?s going on with my body, it feels like I?m watching my body from the outside?. Receptive of discussion normalizing her concerns and how her symptoms may be related to client?s diagnoses. Reviewed the importance of not drinking alcohol when so cializing with others would aid in improving her ability to remain present. Went on to work with client on identifying and practicing several mindfulness/grounding strategies to improve ability to remain present as well. Practiced 5-senses, mindful eating, and mindful listening in session. Discussed benefits of practicing these skills when not feeling numb or disconnected to gain familiarity and increase likelihood of using these skills when noticing herself disconnect as well. Reports willingness to practice one grounding/mindfulness skill each day this week. Risks/Concerns:: Client denies any active suicidal ideations, plan, or intent as of 08/30/21. Denies self-harming behaviors since 08/13/21. Reports reduced alcohol use and has not drank in 5 days. Reports ability to maintain safety. Denies any hallucinations or delusions. Progress Toward Goals/Plan:: Client reports improved mood and application of skills over the past several days. 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 Shared she has not had any active thoughts of harming herself in the past 2 weeks and reports improved communication with supports as well. Pt mood continues to remain conditional to her environment and current external stressors which may impact consistency of progress and mood stability. Client has displayed improved engagement in IOP groups and wiliness to provide input to sessions. Client has contacted [facility] to schedule an initial intake appointment as well and is in the process of choosing an agency to establish outpatient psychiatry services as well. Client has been provided a list of agencies to pick from. Will continue IOP tx to promote continued skill application, promote healthy change behaviors, and prevent decompensation. Time Stopped:: 08:35
--- NOTE | 2021-09-02 09:00 | BH.SGPN.GN ---
Behaviors/Verbalizations/Mental Status: [] Eye contact is good. Motor activity is appropriate. Appearance is casual. Speech is Appropriate. Mood is depressed. Affect is flat. Thoughts are linear and logical. No evidence of psychosis. Reviewed daily check in sheet and no reports of suicidal ideations or intent. Client Response/Progress/Benefit: [] Pt was a passive participant in group discussion. Pt appeared to listen attentively to others. Pt provided feedback to another peer. Pt stated she did not want to check-in this morning. Pt progress difficult to assess due to pt not sharing thoughts/feelings/use of skills during process group. This could potentially be a hindrance to treatment progress because therapist is not able to provide feedback or help challenge any pt's negative/distorted thoughts or behaviors. Seemed to benefit from listening to group members. Will continue in IOP to increase consistent use of healthy coping skills, challenge distorted thoughts and prevent decompensation.
--- NOTE | 2021-09-02 10:05 | BH.SGPN.GN ---
Behaviors/Verbalizations/Mental Status: []Client alert and oriented, casually dressed and groomed. Eye contact good. Motor activity appropriate. Speech within normal limits. Affect congruent, mood euthymic. Thoughts linear, logical, no signs of hallucinations or delusions. Client Response/Progress/Benefit: []Client responded well to session AEB listening attentively to others. Client participated in experiential activity illustrating resilience. Client was engaged throughout group discussion defining resilience and where resilience comes from. Clinician provided psychoeducation on the road to resilience, and introduced how making connections with others can help build resilience. Client nodded and took notes throughout session, appearing to benefit from increased knowledge of resilience. Will continue IOP treatment to increase mood stability and decrease negative self talk to improve daily functioning. Narrative Note: []
--- NOTE | 2021-09-02 11:15 | BH.SGPN.GN ---
Behaviors/Verbalizations/Mental Status: []Client alert and oriented, casually dressed and groomed. Eye contact good. Motor activity appropriate. Speech within normal limits. Affect congruent, mood anxious and euthymic. Thoughts linear, logical, no signs of hallucinations or delusions Client Response/Progress/Benefit: []Client responded well to session AEB listening and contributing to group discussion, taking notes, and providing suggestions throughout. Client participated small group discussion of how each resiliency component can help increase personal resiliency. Worked cooperatively with group to identify strategies to enhance each of the components discussed. Client identified doing well with the resilience component of ?self-awareness?. Went on to reflect wanting to improve in the personal resilience component of ?nurture a positive view of self?. Client stated she wants to work on this by more actively following through with reading positive affirmation and personal strengths each day. Client seemed to benefit from discussing strategies for improving personal resilience. Will continue IOP tx to promote healthy change behaviors, continue to promote consistent application of healthy coping skills, and continue to improve mood stability. Narrative Note: []
--- NOTE | 2021-09-04 10:10 | BH.SGPN.GN ---
Behaviors/Verbalizations/Mental Status: []Client alert and oriented, casually dressed and groomed. Eye contact good. Motor activity appropriate. Speech within normal limits. Affect constricted, mood dysthymic. Thoughts linear, logical, no signs of hallucinations or delusions. Client Response/Progress/Benefit: []Client engaged during session AEB client contributing thoughts throughout discussion and completing worksheet. Connected with discussion on crisis and how coping with external crises by using unhealthy coping skills could result in a personal crisis. Group reflected on the importance of having awareness of personal warning signs to prevent reaching crisis point. Group identified potential warning signs for crisis and client completed the personal warning signs worksheet. Client identified personal crisis warning signs to include: racing thoughts, increased irritation, and avoidance/isolation. Client benefited by increasing awareness of what leads to crisis and personal warning signs. Client will continue IOP tx to increase emotional regulation skills, promote gains in not self-harming, and reduce negative thought patterns. Narrative Note: []
--- NOTE | 2021-09-04 11:10 | BH.SGPN.GN ---
Behaviors/Verbalizations/Mental Status: []Client alert and oriented, casually dressed and groomed. Eye contact good. Motor activity appropriate. Speech within normal limits. Affect constricted, mood dysthymic. Thoughts linear, logical, no signs of hallucinations or delusions. Client Response/Progress/Benefit: []Client responded well to session as evidenced by client listening attentively to others and providing strategies during small group discussion. Connected as fellow participants discussed the importance of identifying and addressing personal warning signs. Client identified warning signs for crisis and gained further awareness of earliest warning signs. Client created a crisis action plan to help client better manage warning signs for crisis. Client?s action plan for physical anxiety symptoms includes:calming breath, stress ball, be own hype person, funny videos, listen to music, and taking medication. Client appeared to benefit from creating a crisis action plan and increasing self-awareness. Client to continue IOP tx to increase consistent use of healthy coping skills, challenge distorted thoughts and prevent decompensation.
--- NOTE | 2021-09-04 14:25 | BH.MDN_ITS ---
Multi-Disciplinary Note - Note 60-min Individual Time Started:: 09:09 Date: 09/04/21 Purpose of session/treatment goals addressed:: Reviewed current symptoms and progress in IOP. Addressed upcoming stressful events and ongoing barriers which are impacting mental health tx progress Eye Contact:: Good Motor Activity:: Appropriate Appearance:: Casual Speech:: Appropriate Mood:: Anxious, Dysthymic Affect:: Constricted Thoughts:: Linear, Logical, No evidence of hallucinations/delusions noted Staff Interventions:: thought challenging, motivational interviewing, psychoeducation on: - Behavior activation and opposite action, discharge planning, strengths perspective, reviewed DSM-5 Client Response:: Pt receptive of session, engaged throughout. Reports feeling ?alright? this morning, but upon further discussion shared some frustrations about the upcoming September. Pt explained that she often feels on edge and is fearful that others will play cruel jokes on her as she had this happen in the past while in school. Therapist empathized and worked with pt to use thought challenging skills as well as develop a coping plan for Thursday which included communicating her concerns with her supports. Pt additionally shared that she could spend the day doing things with people she feels safe with such as playing video games with her brother, going for a walk, and spending time painting. Pt went on to share another stressor as the upcoming anniversary of her uncle?s . Indicates this is in two weeks and that she is concerned about how she is going to cope as in the past this has led to pt isolating and self-harming. Pt and therapist discussed that she now has the insight and knowledge to create a healthy coping plan ahead of time. Pt identified plans to spend time with her friend Farrah as she feels this support would be most understanding and supportive of pt?s mental health needs that day. Additionally, reviewed skills she can use and pt identified wanting to make her uncle?s relish recipe as a positive way to honor his memory on that day. Discussed plans to talk with her mom about her concerns and ensure she is on board with pt?s plan for coping on that day as well. Reviewed with pt areas in which she has been making progress in tx which include decreased suicidal ideation, improved emotion regulation and healthier coping over the past two weeks, as well as successful return to work. Pt reports ongoing issues with consistent skill application, not remembering to say positive affirmations in the moment, and continued feelings of apathy or not being motivated enough to implement her skills. Reports this may be contributing to ongoing sx of depression, disconnection, and recent reports of emotional numbness. Willing to discuss strategies for improving consistent skill application such as placing post-it note reminders around the house or setting reminders on her phone. Risks/Concerns:: Denies any suicidal or homicidal ideations, plan, or intent. Future-oriented. Progress Toward Goals/Plan:: Pt progress remains variable as pt self reports an overall improved mood, increased communication with supports, reduced suicidal ideation, and has successfully transitioned back to part-time work. However, despite pt self-reported progress, she continues to indicate mood swings, apathy, low motivation, thoughts of self-harming without plan or intent, and admits to knowingly engaging in self-sabotage via isolating or turning to unhealthy coping behaviors rather than utilizing healthy alternatives when feeling emotionally overwhelmed or triggered. According to 4 week DSM cross- cutting scales pt has had a 7% reduction in overall symptoms from PHP admission to now, however scores have increased by 52% from PHP discharge/IOP admission to present. Her depression scores have decreased by 71% and her anxiety scores have decreased by 60%. Pt reports this may be due to difficulties with self- accountability and consistent skill utilization, as well as a recent increase in feelings of emotional numbness when engaging with others, and the upcoming stressor of the anniversary date of her uncle?s . Despite recent regression overall she is benefiting from the program. Increased insight and awareness per pt. Primary challenge and stressor is in the moment distress tolerance and consistent skill use. Encouraged to utilize sticky notes and alarms as reminders as well as regularly review materials covered. Pt is connected with outpatient counseling through [facility] and psychiatry initial appointment with the [facility] is scheduled for 09/13/21. Plan is to continue in [facility] to maintain safety, increase healthy coping, and prevent decompensation. Time Stopped:: 10:07
--- NOTE | 2021-09-04 15:32 | BH.TPR ---
Treatment Plan Review Date of Admission:: 08/14/21 Date of Treatment Plan Review:: 09/04/21 Admitting Diagnoses:: 1. Bipolar 1 disorder, most recent episode depressed, severe possibly with psychosis. 2. Cluster B traits. 3. History of ADHD, inattentive type. 4. Rule out alcohol use disorder. 5. Anxiety disorder, NOS Current Diagnoses:: 1. Bipolar 1 disorder, most recent episode depressed, severe without psychosis. 2. Strong cluster B traits. 3. History of ADHD, inattentive type. 4. Alcohol use disorder. 5. Anxiety disorder, NOS (F 41.9) Patient's Response to Treatment:: Pt was initially very hesitant about group counseling while attending at the [facility] level of care; however, after the first week has responded well and is continuing to make improvements in her comfort levels and willingness to engage in group. Struggles at times with sharing during process group, however, remains attentive and takes notes throughout. Reports that she is utilizing skills learned in IOP outside group as well though self-admits to struggling with consistency in this area. Provides supportive feedback and encouragement to peers. Status of Current Problems and Symptoms: According to 4 week DSM cross-cutting scales pt has had a 7% reduction in overall symptoms from PHP admission to now, however scores have increased by 52% from PHP discharge/IOP admission to present. Her depression scores have remained the same and her anxiety scores have increased by 40%. Irritability scores decreased 50%. SI frequency has stayed the same. Pt reports this may be due to difficulties with self-accountability and consistent skill utilization, as well as a recent increase in feelings of emotional numbness when engaging with others, and the upcoming stressor of the anniversary date of her uncle?s . Despite recent regression overall she is benefiting from the program. Increased insight and awareness per pt. Primary challenge and stressor is in the moment distress tolerance and consistent skill use. Encouraged to utilize sticky notes and alarms as reminders as well as regularly review materials covered. Problem #1 Problem Name:: Depression/SI/Self-harm urges Status of Goals:: Ob1- Per pt report she feels that she has learned several healthy coping skills for managing her sx and has successfully decreased her self-harming and suicidal ideation, however mood instability and depressive sx of apathy and unhealthy coping skills continue. Struggles with healthy communication with supports and consistent skill application. Ob2- per pt reports she feels her mood is more stable, though DSM scores have not reduced as of this point. Team Recommendations:: Continue to work on emotion regulation as she continues to be reactive. Continue with current treatment plan. Problem #2 Problem Name:: Anxiety Status of Goals:: ob1- She is able to identify calming skills learned in group however struggles with implementing these skills consistently when in overwhelming situations or feeling triggered. Can identify triggers as well when calm but struggles to proactively plan to address triggers she knows she may potentially face or communicate feeling triggered in the moment. Team Recommendations:: Continue with current plan.
--- NOTE | 2021-09-05 09:00 | BH.SGPN.GN ---
Behaviors/Verbalizations/Mental Status: [] Eye contact is good. Motor activity is appropriate. Appearance is casual. Speech is Appropriate. Mood is anxious. Affect is congruent. Thoughts are linear and logical. No evidence of psychosis. Reviewed daily check in sheet and no reports of suicidal ideations or intent. Client Response/Progress/Benefit: [] Pt participated at times during the group discussion. Attentive. Daily symptom tracker notes 2/5 for depression and anxiety and 1/5 for self-harm urges. Mental health wins are I left the house yesterday. Emotion for today is alright. Shared that next week is the anniversary of her grandfather's . She has developed a plan to help her through this difficult time with her therapist. Proud of herself for being proactive. Check in was very short, however she was engaged with peers on most topics discussed today. Progress noted per pt report. Benefited from group support and encouragement. Will contiune in IOP to maintain safety, increase coping skills, and improve functioning. Narrative Note: []
--- NOTE | 2021-09-05 10:05 | BH.SGPN.GN ---
Behaviors/Verbalizations/Mental Status: []Client alert and oriented, casually dressed and groomed. Eye contact good. Motor activity appropriate. Speech within normal limits. Affect congruent-smiling, mood euthymic. Thoughts linear, logical, no signs of hallucinations or delusions. Client Response/Progress/Benefit: []Client responded well to session AEB sharing and listening attentively to others. Client participated in group discussion defining anxiety and how anxiety affects emotions, thoughts, and feelings. Group discussed the benefits of anxiety, as well as when it becomes problematic. Clinician provided psychoeducation the anxiety triangle of physical symptoms, safety behaviors, and common anxious thoughts. Client identified physical symptoms of anxiety as increased chest hurting, increased heart rate, and crying. Connected with discussion reviewing anxiety safety behaviors and reported personal safety behaviors as avoidance, procrastination, and reassurance seeking. Client appeared to benefit from increased knowledge of anxiety diagnoses and causes, as well as improved self awareness of anxiety symptoms. Will continue IOP tx to improve distress tolerance skills and combat distorted thought patterns. Narrative Note: []
--- NOTE | 2021-09-05 11:10 | BH.SGPN.GN ---
Behaviors/Verbalizations/Mental Status: []Client alert and oriented, casually dressed and groomed. Eye contact good. Motor activity appropriate. Speech within normal limits. Affect congruent, mood euthymic. Thoughts linear, logical, no signs of hallucinations or delusions. Client Response/Progress/Benefit: []Client an active participant AEB providing input to discussion and participated in practicing calming skills. Attentive during psychoeducation on mindfulness coping skills and their impact on mental health wellness. The group worked together to brainstorm anxiety reduction strategies that were self-soothing and mind and body-based. Client reported they will practice mindfulness by watching calming videos of the ocean at night and taking through stressors with supports. Client seemed to benefit from increased repertoire of anxiety reduction skills. Client will continue IOP tx to reduce anxiety, improve work-related functioning, and increase impulse control. Narrative Note: []
== END 2021-09-05 23:59 | disposition home or self-care (01) ==
LOC: BHIOP 09:09
PROVIDERS: PCP Family Medicine; Referring Provider Psychiatry & Neurology Psychiatry; Visit Provider Psychiatry & Neurology Psychiatry
DX: F33.2 Major depressive disorder, recurrent severe without psychotic features (principal); F90.0 Attention-deficit hyperactivity disorder, predominantly inattentive type; F41.9 Anxiety disorder, unspecified; Z72.89 Other problems related to lifestyle
CPT/HCPCS: S9480; 90832; 90834; 90837; 90853

== ENCOUNTER 2021-08-20 01:44 | Emergency (ER) | payer OTHER, MEDICAID, SELFPAY ==
--- NOTE | 2021-08-20 04:30 | CT_ITS ---
EXAM: CT ABDOMEN AND PELVIS WITH INTRAVENOUS CONTRAST CLINICAL INDICATION: RLQ PAIN RLQ PAIN TECHNIQUE: Helically acquired images were obtained of the abdomen and pelvis with intravenous contrast. This CT exam was performed using one or more of the following dose reduction techniques: automated exposure control, adjustment of the mA and/or kV according to patient size, and/or use of iterative reconstruction technique. This report was created using [employer] report generation technology. CONTRAST: 100mL Isovue 300 COMPARISON: None. FINDINGS: LOWER THORAX: Unremarkable. Lung bases are clear. No cardiomegaly. No significant pericardial effusion. ABDOMEN: LIVER: The liver is enlarged. GALLBLADDER AND BILE DUCTS: Gallbladder surgically absent. No intra- or extrahepatic biliary ductal dilation. PANCREAS: Unremarkable. No focal cystic or solid mass. SPLEEN: There is severe splenomegaly. ADRENALS: Unremarkable. No nodules. KIDNEYS AND URETERS: There is an 8 mm nonobstructive right renal calculus. There is no demonstrated ureteral S or hydronephrosis. Normal renal size and position. STOMACH AND BOWEL: There are colonic diverticula. No stomach or bowel distention. No focal inflammatory change. PELVIS: APPENDIX: A normal-appearing appendix is seen on axial images 81-90. BLADDER: Unremarkable. REPRODUCTIVE: There is a 2.8 cm right ovarian cyst. ABDOMEN and PELVIS: INTRAPERITONEAL SPACE: Unremarkable. No ascites or other fluid collection. No free air. BONES/JOINTS: There are mild multilevel degenerative changes in the lumbar spine. No suspicious lytic or blastic abnormality. SOFT TISSUES: There is a supraumbilical ventral hernia contains fat. VASCULATURE: Unremarkable. Abdominal aorta is non-dilated. LYMPH NODES: Unremarkable. No enlarged lymph nodes. CT/Abdomen/Pelvis W IV Cont ONLY IMPRESSION: 1. Hepatomegaly and splenomegaly. 2. Colonic diverticulosis, without evidence for acute diverticulitis. 3. Supraumbilical ventral hernia contains fat, no bowel. 4. Status post cholecystectomy. 5. Nonobstructive right renal calculus. No demonstrated ureteral calculus or hydronephrosis. 6. 2.8 cm right ovarian cyst. No follow-up is necessary. 7. No evidence for appendicitis. No evidence for acute pathology. Electronically Signed: Radhames Tate MD at 7:11 EDT ,
[2021-08-20 05:49] LABS: Absolute Lymphocyte Count 3.41 X10^3/uL (0.83-4.51); Absolute Neutrophil Count 10.2 X10^3/uL (2.0-7.7); Basophil# 0.05 X10^3/uL; Basophil% 0.3 % (0-1); Eosinophil# 0.36 X10^3/uL; Eosinophils% 2.4 % (0-5); Hematocrit 36.2 % (37-47); Hemoglobin 11.4 g/dL (12.0-15.0); Lymphocyte # 3.41 X10^3/ul (0.83-4.51); Lymphocyte % 22.9 % (19-41); Mean Corp Hgb Conc 31.5 g/dL (32-36); Mean Corpuscular Hgb 24.4 pg (27.0-32.0); Mean Corpuscular Volume 77.5 fL (81-99); Monocyte# 0.81 X10^3/uL; Monocyte% 5.4 % (0-10); NRBC Flagged by Analyzer 0 % (0-5); Neutrophil # 10.16 X10^3/uL (2.7-7.7); Neutrophil % 68.5 % (47-70); Platelet Count 375 K/mm3 (150-450); RBC Distribution Width CV 16.3 % (11.6-14.6); RBC Distribution Width SD 45.8 fl (35.1-43.9); Red Blood Count 4.67 M/mm3 (4.2-5.4); White Blood Count 14.9 K/mm3 (4.4-11.0)
[2021-08-20 05:55] LABS: AST(SGOT) 40 U/L (15-37); Alanine Aminotransfer ALT/SGPT 62 U/L (13-56); Albumin, Serum 3.2 g/dL (3.2-5.0); Alkaline Phosphatase 87 U/L (45-117); Anion Gap 6 (5-15); BUN 11 mg/dL (7-18); BUN/Creat Ratio 14.2 RATIO (10-20); Bilirubin, Direct < 0.05 mg/dL (0.00-0.30); Calcium,Total 8.8 mg/dL (8.5-10.1); Chloride 105 mmol/L (98-107); Creatinine, Serum 0.77 mg/dL (0.55-1.02); EST Glomerular Filtration Rate 98 mL/min (>60); Est Glom Filt Rate - Afr Amer 118 mL/min (>60); Globulin 4.4 g/dL (2.2-4.2); Glucose 351 mg/dL (74-106); Lipase 141 U/L (73-393); Potassium 4.1 mmol/L (3.5-5.1); Protein, Total 7.6 g/dL (6.4-8.2); Sodium Level 136 mmol/L (136-145)
--- NOTE | 2021-08-20 06:33 | EX.ED.DYSGE1 ---
HPI Narrative Narrative: Patient is a 26-year-old female who states that she went out drinking last. She states she awoke around 1230 or 1 this afternoon. She states since that time she noticed some midepigastric abdominal pain and has felt nauseous. She states that her oral intake has been poor throughout the day because of the nausea and she believes she is becoming dehydrated. She states that with this pain however she feels that it has now migrated from her mid abdomen to her right lower quadrant. She denies any diarrhea or dysuria associated with this. She denies any fevers or chills or trauma. However with the persistent and now worsening symptoms presents for evaluation [facility] ED Constitutional Constitutional ED: Denies chills or fever(s) ENT ENT ED: Denies sore throat Cardiovascular Cardiovascular: Denies chest pain Respiratory/Chest Respiratory/Chest: Denies cough or dyspnea Gastrointestinal Gastrointestinal: Reports abdominal pain and nausea; Denies diarrhea or vomiting Genitourinary Genitourinary ED: Denies dysuria Musculoskeletal Musculoskeletal: Denies myalgias Integumentary Denies rash Neurologic Neurologic: Denies headache(s) Hematologic/Lymphatic Hematologic/Lymphatic: Denies easy bleeding or easy bruising EXAM Physical Exam Const Positive well nourished, well developed and obese General Appearance ED: well developed Nutritional Appearance: obese HEENT Reports dry mucous membranes Mouth ED: Yes dry mucous membranes Mouth: dry mucous membranes Eyes PERRL and EOMs intact bilaterally Neck supple Resp normal respiratory effort and clear to auscultation bilaterally Cardio regular rate and regular rhythm Rate: other Other Details: Radial pulses are +2-4 bilaterally are equal and symmetric GI non-distended GI Narrative: Abdomen is obese soft and nondistended with normal active bowel sounds. There is pain with palpation in the right lower quadrant without voluntary guarding or rigidity. Negative rebound. Negative heel strike however positive psoas and obturator signs. 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 Secondary to this I did elect to perform basic laboratory studies which shows an elevated white blood cell count at 14.9. A CT was then obtained which showed a normal appendix but a small right ovarian cyst without any obvious signs of infection or decreased blood flow. On reevaluation the patient reports feeling better after Pepcid and Zofran and fluids and her abdomen remains soft and nonsurgical. Therefore at this time with improvement of symptoms and negative work-up there is no need for further treatment and she is safe for discharge Lab Data Attestation: I reviewed the patient's lab results. Labs: Laboratory Results - last 24 hr 08/20/21 08/20/21 04:48 04:48 WBC 14.9 H RBC 4.67 Hgb 11.4 L Hct 36.2 L MCV 77.5 L MCH 24.4 L MCHC 31.5 L RDW Std Deviation 45.8 H RDW Coeff of Silvia 16.3 H Plt Count 375 MPV 10.0 Immature Gran % (Auto) 0.500 Neut % (Auto) 68.5 Lymph % (Auto) 22.9 [place] % (Auto) 5.4 Eos % (Auto) 2.4 Baso % (Auto) 0.3 Absolute Neuts (auto) 10.2 H Absolute Lymphs (auto) 3.41 Nucleated RBC % 0 Sodium 136 Potassium 4.1 Chloride 105 Carbon Dioxide 25.0 Anion Gap 6 BUN 11 Creatinine 0.77 Est GFR (MDRD) Af Amer 118 Est GFR (MDRD) Non-Af 98 BUN/Creatinine Ratio 14.2 Glucose 351 H Calcium 8.8 Total Bilirubin 0.10 L Direct Bilirubin < 0.05 AST 40 H ALT 62 H Alkaline Phosphatase 87 Total Protein 7.6 Albumin 3.2 Globulin 4.4 H Lipase 141 Discharge Plan Triage ED Provider: Sudarshan Angelo Dx/Rx/DC Orders Clinical Impression: Mild dehydration, Cyst of right ovary Instructions: ED Dehydration (Adult), ED Ovarian Cyst Primary Care Provider: Miguelito Unger Referrals: Miguelito Unger MD [Primary Care Provider] - Disposition Disposition: Home, Self Care
--- NOTE | 2021-08-20 08:05 | ED.RN ---
See downtime charting for pt visit. Pt given written and verbal dc instructions Pt ambulated to WR without difficuty with mother
[2021-08-20 08:10] VITALS: PULSE 78; RESP 18; O2SAT 94
[2021-08-20 08:54] LABS: Mucous, Urine 0 SEEN /hpf (<or=2+); Red Blood Cells-Urine 0 SEEN /hpf (0-5); Squamous Epithelial Cells - UA 0 SEEN /hpf (5-10); White Blood Cells 0 SEEN /hpf (0-5)
[2021-08-20 08:55] LABS: Color, Urine Yellow (Yellow); Glucose, Dipstick 1000 mg/dl (Normal); Ketone-Dipstick Negative (Negative); Leukocyte Esterase-Dipstick Negative /ul (Negative); Nitrite-Dipstick Negative (Negative); Occult Blood-Urine Negative /ul (Negative); Protein-Dipstick 15 mg/dl (Negative); Specific Gravity, Urine 1.015 (1.002-1.030); Urine Bilirubin Dipstick Negative (Negative); Urine Clarity Clear (Clear); Urine Urobilinogen Normal (Normal)
[2021-08-20 08:56] LABS: Bacteria RARE /hpf (None Seen); Internal QC Validated? YES +Cl - CLEAR BKGD
[2021-08-20 08:57] LABS: Pregnancy, Urine Negative Negative
== END 2021-08-20 08:10 | disposition home or self-care (01) ==
PROVIDERS: Emergency Provider Emergency Medicine; PCP Family Medicine; Visit Provider Emergency Medicine
DX: E86.0 Dehydration (principal); N83.201 Unspecified ovarian cyst, right side; E66.9 Obesity, unspecified
CPT/HCPCS: 36415; 74177; 80048; 80076; 81001; 81025; 83690; 85025; 96361; 96374; 99284; Q9967; J2405; J3490

== ENCOUNTER 2021-09-06 08:17 | Outpatient (RCR) | payer OTHER, MEDICAID, SELFPAY ==
--- NOTE | 2021-09-09 09:00 | BH.SGPN.GN ---
Behaviors/Verbalizations/Mental Status: []Pt alert and oriented, casually dressed and groomed. Eye contact good. Motor activity appropriate. Speech within normal limits. Affect congruent, mood euthymic and anxious. Thoughts linear, logical, no signs of hallucinations or delusions. Reviewed pt?s symptom tracker, no risk for suicidal ideation, plan, or intent as of 09/09/21. Client Response/Progress/Benefit: PP[]Pt responded well to session, positive and engaged. Pt reports feeling worried this morning because she will be doing many things this week that make her anxious, but these things will also help pt maintain progress. Pt plans to go to [employer] today for a tour and pt has several appointments this week. Pt reports using her coping skills over the weekend which helped pt not nap as long and enjoy time with supports over the weekend. Pt is anxious about her upcoming discharge and multiple appointments, but pt reminded of her numerous strengths and coping skills. Pt appeared to benefit from reflecting on her resilience. Will continue IOP tx to promote mood stability, further decrease the use of unhealthy coping skills, and improve daily functioning. Narrative Note: []
--- NOTE | 2021-09-09 10:13 | BH.SGPN.GN ---
Behaviors/Verbalizations/Mental Status: []Client alert and oriented, casually dressed and groomed. Eye contact good. Motor activity appropriate. Speech within normal limits. Affect congruent, mood euthymic. Thoughts linear, logical, no signs of hallucinations or delusions. Client Response/Progress/Benefit: []Pt engaged throughout AEB taking notes, listening attentively, and providing some input throughout. Attentive during psychoeducation and discussed the importance of goal-setting with the group. Pt indicated that goals ?help keep us from giving up because they give us something to work towards?. Group identified potential benefits of having goals to include: they motivate, increase self-confidence, provide a sense of accomplishment, help you begin to create healthier habits, and provide a sense of purpose. Group also worked together to identify barriers to goal-setting which included; fear of failure, lack of motivation, depression, ?I don?t care attitude?, and lack of support from others. Pt identified personal barriers to include feeling invalidated by others, negative self-talk, and lack of motivation. Benefited from increased awareness of benefits and barriers to goal-setting. Pt will continue in IOP to prevent decompensation, increase healthy coping and further stabilize mood, as well as further improve daily functioning. Narrative Note: []
--- NOTE | 2021-09-09 12:13 | BH.MDN_ITS ---
Multi-Disciplinary Note - Note 30-min Individual Time Started:: 11:29 Date: 09/09/21 Purpose of session/treatment goals addressed:: Reviewed current symptoms and progress in IOP. Addressed progress on treatment plan goals and reviewed homework to create a coping plan for upcoming trauma anniversary date. Discussion on aftercare. Staff Interventions:: thought challenging, motivational interviewing, discharge planning, strengths perspective, reviewed DSM-5 Client Response:: Pt reports feeling ?pretty good? today and shared that he mood has been overall more positive over the past several days. Pt described being able to spend time with healthy supports and engage with friends over the weekend without feeling detached or emotionally ?numb?. Expressed being able to enjoy the interactions and actually found herself laughing at various points rather than zoning out as she had been when attempting to spend time with her supports. Reflected that she believes she ?hadn?t been letting myself be happy or enjoy myself? out of fear of not deserving it or being able to maintain the positive emotions. Expressed taking steps to be more open to the idea that she is ?allowed? and deserves to be happy. Shared using more positive self-talk statements to encourage herself as well. Expressed enjoying daily activities more as a result of this change in perspective as well, describing spending time painting and crafting over the weekend. Went on to proudly discuss her plan for coping with the upcoming anniversary of her uncle?s , next Thursday. Explained planning to spend the day with her mother helping her grandfather as pt?s grandmother will be out of town. Shared that she enjoys spending time with her grandfather and that this will both serve as a distraction, as well as provider her with a sense of purpose. Noted plans to watch her uncle?s favorite shows with the family and then her mother is having friends over to play board games. Pt expressed feeling proud of herself for proactively creating a coping rather than waiting till the day of as she has in the past. Discussed her progress in IOP with plan to discharge next week. Pt discussed improved emotion regulation and feels her anxiety and depression has reduced since beginning tx as well. Attributes progress to no longer shutting down, improving self-talk, and finding healthier means of managing her emotions and stressors in the moment. Able to identify healthy skills for managing depressive sx and has successfully refrained from self-harming behaviors in the past two weeks. Denies any SI, plan, or intent in past month as well. Noted that her ability to understand, identify and communicate her mental health warning signs, triggers, and needs has also improved and that she plans to continue to work on increasing communicating with supports moving forward. Her coping skills for anxiety include painting, going for walks, taking breaks, communicating with supports, and taking deep breaths. Reports improved self-talk and is taking steps to remind herself to continue to prioritize her mental health needs rather than avoiding or self-sabotaging. Risks/Concerns:: Denies any suicidal ideations, plan, or intent as of this date 09/09/20 Progress Toward Goals/Plan:: Progress noted since starting IOP. Currently denies any SI, plan, or intent. Reports being more stable and believes she has been able to gain insight and implement skills to better solution design and analysis manager her mental health symptoms since beginning IOP tx. Has been able to refrain from self-harming behaviors in past 2 weeks despite significant stressors. Pt has additionally returned to work on a part-time basis and reports this is going well. Reduced isolating behaviors and has plans to begin attending [facility] support groups with a tour scheduled for today. Plan is to discharge next week. She is going to begin aftercare group and is scheduled to begin counseling at the [facility] on 09/17, begin [facility] through [facility] beginning tomorrow, and her initial psychiatry appointment with the [facility] is next scheduled for Wednesday 09/13 as well. Time Stopped:: 12:03
--- NOTE | 2021-09-10 09:02 | BH.SGPN.GN ---
Behaviors/Verbalizations/Mental Status: []Eye contact is good. Motor activity is appropriate. Appearance is casual. Speech is Appropriate. Mood is euthymic and anxious. Affect is congruent, bright. Thoughts are linear and logical. No evidence of psychosis. Reviewed daily check in sheet and pt denies any suicidal ideations and intent as of this date, 09/10/21. Client Response/Progress/Benefit: []Pt was an active participant in group discussion. Attentive. Provided appropriate feedback. Emotion for today is ?anxious, but happy and hopeful?. Shared with the group that she is supposed to begin grief counseling today and is nervous about that. Expressed fears that she is ?not ready? but did well to challenge this and identify her ability to set the pace. Appeared to benefit from this, as well as supportive feedback and encouragement provided by the group. Did well to identify current mental health wins which included taking a tour of [place] and signing up for the craft even there on . Additional win noted as continuing to engage in self-care via taking her medications regularly. Progress noted since last session AEB pt report of increased engagement in supportive services and use of skills. Will continue in IOP to prevent decompensation, continue to stabilize mood, and increase health coping skills. Narrative Note: []
--- NOTE | 2021-09-10 10:00 | BH.SGPN.GN ---
Behaviors/Verbalizations/Mental Status: []Pt alert and oriented, casually dressed and groomed. Eye contact good. Motor activity appropriate. Speech within normal limits. Affect constricted, mood euthymic. Thoughts linear, logical, no signs of hallucinations or delusions. Client Response/Progress/Benefit: []Pt responded well to session, attentive and participating in activity. Pt contributing during the discussion of what fear of failure means and what contributes to the development of fear of failure. Group shared that the fear of failure can lead to isolation, self-sabotage, pushing people away, self-doubt, avoidance, and not trying. Pt made connections during the activity of progress not being linear and how this can help pt?s overcome fear of failure. Pt appeared to benefit from gaining awareness of the impact fear of failure can have on one?s mental health and wellbeing. Will continue IOP tx to reduce the use of unhealthy coping skills, improve mood stability, and increase work-related functioning. Narrative Note: []
--- NOTE | 2021-09-10 11:10 | BH.SGPN.GN ---
Behaviors/Verbalizations/Mental Status: []Pt alert and oriented, casually dressed and groomed. Eye contact good. Motor activity appropriate. Speech within normal limits. Affect congruent-laughing, mood euthymic. Thoughts linear, logical, no signs of hallucinations or delusions. Client Response/Progress/Benefit: []Pt responded well to session, engaged in the experiential activity and attentive throughout group processing. 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 Pt completed fear of failure worksheet and was able to identify thoughts and behaviors that reinforce personal fear of failure including not following through with goals and telling herself she is not good enough. Pt participated in small group discussion regarding strategies to overcome fear of failure. Identified wanting to work on challenging fear of failing by using positive self-talk. Appeared to benefit from increased knowledge of strategies to combat fear of failure and gaining self-awareness. Pt will continue IOP tx to promote mood stability, reduce the use of unhealthy coping skills, and increase distress tolerance skills. Narrative Note: []
--- NOTE | 2021-09-11 09:00 | BH.SGPN.GN ---
Behaviors/Verbalizations/Mental Status: []Eye contact is good. Motor activity is fidgety. Appearance is casual. Speech is rapid. Mood is euthymic. Affect is congruent. Thoughts are linear and logical. No evidence of psychosis. Reviewed daily symptom tracker sheet with no reports of suicidal ideations, plan, or intent. Client Response/Progress/Benefit: []Client was engaged throughout group session, sharing and listening attentively to others. Client reported her emotion as ?excited?. Client discussed waking up tired and drinking three cups of coffee and a five-hour energy shot to wake up. Group discussed the effects of caffeine on anxiety, which client denied experiencing. Client discussed that she is starting grief counseling this week and is working to not allow herself to not enjoy things, something she has struggled with in the past. Client reports using positive self-talk and is planning to attend a local craft group at the [facility]. Client discussed feeling stressed about next week being her last week, but stated she could see her progress. Appeared to benefit from support group discussion and feedback. Progress noted AEB client?s report of increased use of positive self-talk. Will continue IOP treatment to continue increasing mood stability and application of healthy coping skills to improve daily functioning. Narrative Note: []
--- NOTE | 2021-09-11 10:15 | BH.SGPN.GN ---
Behaviors/Verbalizations/Mental Status: []Client alert and oriented, casually dressed and groomed. Eye contact fair. Motor activity restless. Speech within normal limits. Affect constricted, mood dysthymic. Thoughts linear, logical, no signs of hallucinations or delusions. Client Response/Progress/Benefit: []Client responded well to treatment AEB sharing and listening attentively to others. Client participated in group discussion defining taking action. Group identified barriers to taking action. Client attentive to psychoeducation and discussion about what symptoms and behaviors take control over functioning. Client identified:intrusive thoughts, grief, negative self talk, alcohol, self harm urges and reassurance seeking as what takes control over their functioning too frequently. Client reported self harm urges, alcohol and intrusive thoughts impact her the most. Client she would be happier if she gained back some control in her life. Client identified using skills, attending therapy and communicating are things that are helping her gain back control. Appeared to benefit from increased self-awareness and knowledge regarding examples and barriers to taking action. Will continue IOP treatment to continue improving healthy coping skills, challenge distorted thoughts and prevent decompensation.
--- NOTE | 2021-09-11 11:13 | BH.SGPN.GN ---
Behaviors/Verbalizations/Mental Status: []Client alert and oriented, casually dressed and groomed. Eye contact good. Motor activity appropriate. Speech within normal limits. Affect congruent to mood-tearful, mood anxious. Thoughts linear, logical, no signs of hallucinations or delusions. Client Response/Progress/Benefit: []Client responded well to session, taking notes and participating in worksheet discussion. Client identified they want to take action on reducing grief symptoms such as negative thinking. Identified talking to her grief therapist, reading positive quotes online, and writing positive quotes on sticky notes as strategies that can help client follow through with the goal. Appeared to benefit from identifying a small goal to benefit mental health. Client to continue IOP to increase distress tolerance skills, improve work-related functioning, and further reduce the use of unhealthy coping skills. Narrative Note: []
--- NOTE | 2021-09-16 09:00 | BH.SGPN.GN ---
Behaviors/Verbalizations/Mental Status: [] Eye contact is good. Motor activity is restless. Appearance is casual. Speech is Appropriate. Mood is euthymic. Affect is congruent. Thoughts are linear and logical. No evidence of psychosis. Reviewed daily check in sheet denies suicidal ideation, plan or intention to date. Client Response/Progress/Benefit: [] Pt was an active participant in group discussion. Attentive to others. Pt reported mental health positive as going to the [employer] for art group. Pt stated she really enjoyed her time at [employer]. Pt stated additional mental health positive as going to a cook out with family. Pt reported she is in the wedding constitution party for an upcoming wedding so she had dinner with the bridal constitution party this weekend. Pt noted socializing with others was a significant win for her. Pt stated current stressor is graduating from IOP this week. Benefited from group support, encouragement, and feedback. Will continue in IOP to prevent decompensation, maintain gains, and continue use of healthy coping skills.
--- NOTE | 2021-09-16 10:07 | BH.SGPN.GN ---
Behaviors/Verbalizations/Mental Status: []Client alert and oriented, casually dressed and groomed. Eye contact good. Motor activity appropriate. Speech within normal limits. Affect congruent, mood euthymic. Thoughts linear, logical, no signs of hallucinations or delusions. Client Response/Progress/Benefit: []Client responded well to session AEB sharing and listening attentively to others. Client participated throughout group discussion of the benefits and barriers to making change. Client provided examples of benefits including increased motivation and barriers such as fear of failure. Client participated in experiential activity illustrating the emotions that go along with making change, and how they can be both positive and negative, providing insight throughout group processing. Clinician provided psychoeducation on the cognitive triangle, discussing how thoughts, emotions and behaviors are connected. Appeared to benefit from increase knowledge of the benefits and barriers to making change, as well as how emotions are affected by change. Will continue IOP treatment to continue increasing mood stability and decrease rumination. Narrative Note: []
--- NOTE | 2021-09-16 11:10 | BH.SGPN.GN ---
Behaviors/Verbalizations/Mental Status: []Client alert and oriented, casually dressed and groomed. Eye contact good. Motor activity appropriate. Speech within normal limits. Affect constricted, mood euthymic and anxious. Thoughts linear, logical, no signs of hallucinations or delusions. Client Response/Progress/Benefit: []Client responded well to session, attentive. Did well to process activity and work with group to relate the strategies used to overcome barriers in the activity to managing change in own life. Client identified a change they would like to make as being able to use sharp knives again and be in control of her medications. Client reports barriers to change as self-harm urges and negative self-talk. Client set a goal of asking a support to supervise her while using a knife this week and to ask for one days? worth of medication at a time. Appeared to benefit from identifying a small goal to work towards. Client will continue IOP tx for one more week to reinforce healthy coping skills and establish aftercare. Narrative Note: []
--- NOTE | 2021-09-18 08:54 | BH.SGPN.GN ---
Behaviors/Verbalizations/Mental Status: []Pt alert and oriented, casually dressed and groomed. Eye contact good, motor activity appropriate, speech within normal limits. Affect, constricted. Mood, dysthymic and anxious. Thoughts linear, logical, no signs of hallucinations or delusions. Reviewed pt's daily symptom tracker, no SI indicated. Client Response/Progress/Benefit: []Pt responded well to session, engaged and attentive throughout. Pt reports emotion of the day as grief. Discussed that today is a trauma anniversary date which has historically been difficult for her to cope with. Shared usually she would isolate, avoid others, and at times self-harm; however, today she has plans to use much healthier alternative coping skills. Pt tearful throughout and noted not wanting to share further. Appeared to benefit from encouragement and supportive feedback provided by group. Will continue IOP tx to continue to continue to maintain safety, reinforce healthy coping skills, and promote mood stability. Narrative Note: []
--- NOTE | 2021-09-18 10:00 | BH.SGPN.GN ---
Behaviors/Verbalizations/Mental Status: []Client alert and oriented, casually dressed and groomed. Eye contact good. Motor activity appropriate. Speech within normal limits. Affect congruent, mood euthymic. Thoughts linear, logical, no signs of hallucinations or delusions. Client Response/Progress/Benefit: []Client responded well to session AEB sharing and listening attentively to others. Client participated in group discussion defining pitfalls, with client providing examples of self isolating and sleeping. Clinician provided psychoeducation on internal and external triggers to pitfalls, which client appeared connected to. Client participated in experiential activity illustrating how easy it is to fall into pitfalls when we are unaware of them. Client provided problem solving throughout activity. Appeared to benefit from increased knowledge of pitfalls and their triggers. Will continue IOP treatment to continue increasing mood stability and decrease rumination to improve daily functioning. Narrative Note: []
--- NOTE | 2021-09-18 11:05 | BH.SGPN.GN ---
Behaviors/Verbalizations/Mental Status: []Pt alert and oriented, disheveled appearance. Eye contact good. Motor activity appropriate. Speech within normal limits. Affect constricted, mood dysthymic. Thoughts linear, logical, no signs of hallucinations or delusions. Client Response/Progress/Benefit: []Pt receptive of session, engaged throughout AEB pt actively listening and contributing to discussion, as well as taking notes. Pt completed worksheet identifying personal pitfalls impacting mental health progress. Pt identified the following pitfalls: having an ?I don?t care? attitude, numbing and wanting to escape, feeding into anger, and not giving self-credit. Group learned different coping skills to help manage pitfalls. Pt selected the following coping skills to help with pitfalls: verbalizing a need for a break and challenging distorted thoughts. Benefited from identifying personal pitfalls and strategies to overcome these pitfalls. Will continue IOP tx to reinforce healthy coping skills, reduce the use of unhealthy coping skills, and combat distortions. Narrative Note: []
--- NOTE | 2021-09-18 13:19 | PCM.BH.PN ---
Progress Note Progress Note: History of Present Illness/Interim History: [] The patient is a 26-year-old female with a history of bipolar disorder and depression who is seen in follow-up at the [facility] behavioral health IOP program. I last saw the patient 3 weeks ago. She is doing pretty well in the IOP program currently and has made progress and feels she has learned valuable skills to help deal with her issues. She states that she still feels that she wants to feel better than she does. 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 Discussed with the patient that these stressors in life will always occur. She is still using alcohol 4 days a week up to 5 drinks per day. She has had some thoughts of self-harm but has not done any self-harm since 2 weeks ago. She denies passive thoughts of , suicidal ideation, homicidal ideation, plan for suicide, hallucinations or delusions. Current Psychiatric Medications: [] Abilify 15 mg p.o. nightly; Cymbalta 60 mg p.o. daily; trazodone at bedtime as needed and Vistaril as needed for panic attacks. Mental Status Examination: [] The patient is an obese female who appears normal for stated age and is seen wearing a mask due to the pandemic. She is casually dressed and groomed with good hygiene. She has no psychomotor agitation or retardation. Eye contact is fair but patient sometimes looks down during the interview. Speech is normal rate and rhythm and fluent with no pressure. Mood is mildly depressed. Affect is mildly constricted. Thought process is goal-directed and organized. Thought content: There is no evidence of passive thoughts of , suicidal ideation, homicidal ideation, hallucinations or delusions. There is occasional thoughts of self-harm but no actions recently. Judgment is limited but intact. Insight is limited but improving. Impulsivity is high. Diagnoses: [] 1. Bipolar 1 disorder, most recent episode depressed, severe without psychosis (resolving) 2. Strong cluster B traits 3. History of ADHD, inattentive type 4. Alcohol use disorder 5. Anxiety disorder, NOS 6. Primary support and work issues Plan: [] The patient will continue the IOP program but probably will be discharged this week. She felt safe during the interview and if it anytime she does not feel safe she will let us know or go to the emergency room. The risk, options, possible complications and side effects of the medications were again discussed with the patient and she understands accepts these. The patient was again encouraged to abstain from alcohol or any other drug use. She is offered naltrexone to help her state fight off the alcohol cravings and to help her drink less alcohol when she does drink. The patient agrees to take the name of the naltrexone and give this to her psych new psychiatrist who she thinks she is seeing today or tomorrow. She may be willing at this point to start naltrexone 50 mg p.o. daily to help her decrease her alcohol use. She will continue to follow-up with her outpatient medical and psychiatric providers.
--- NOTE | 2021-09-20 09:00 | BH.SGPN.GN ---
Behaviors/Verbalizations/Mental Status: [] Eye contact is good. Motor activity is appropriate. Appearance is casual. Speech is Appropriate. Mood is euthymic. Affect is full. Thoughts are linear and logical. No evidence of psychosis. Reviewed daily check in sheet and no reports of suicidal ideations or intent. Client Response/Progress/Benefit: [] Pt was an active participant in group discussion. Attentive. Provided appropriate feedback. Emotion for today is happy and unsure. Daily symptom tracker notes 1/5 for depression and 4/5 for anxiety. Shared with the group that today is her last day in [facility]. Shared her progress over the several weeks including going from frequent psych admits to feeling stable. Utilizing skills and completing self-care. Smiling. Believes that anger mgmt group was most helpful group and shared how anger was an obstacle for progress in the past. Progress noted per pt report. Benefited from group support and encouragement. Will be discharged from [facility] today as she no longer meets criteria. Narrative Note: []
--- NOTE | 2021-09-20 09:43 | BH.MDN_ITS ---
Multi-Disciplinary Note - Note 30-min Individual Time Started:: 08:38 Date: 09/20/21 Purpose of session/treatment goals addressed:: Reviewed progress on treatment plan in IOP. Finalized aftercare plans and reviewed outcome measurement. Discussed areas of continued focus in outpatient tx following IOP d/c. Eye Contact:: Good Motor Activity:: Appropriate Appearance:: Casual Speech:: Appropriate Mood:: Euthymic, Anxious Affect:: Congruent Thoughts:: Linear, Logical, No evidence of hallucinations/delusions noted Staff Interventions:: thought challenging, motivational interviewing, strengths perspective, reviewed DSM-5, other - discharge planning and provided substance use supportive resources Client Response:: Reviewed progress in IOP and on treatment plan goals. Pt was able to identify healthy communication skills, healthy coping skills for depression and mood swings, anxiety triggers, and calming skills for anxiety. According to DSM outcome measurement pt showed an overall symptom decrease of 39% since admission. Pt had some significant stressors this week, including a trauma anniversary date this past Thursday. Shared that she was able to follow- through with the healthy coping plan created with her mother rather than engage in isolating and self-harming behaviors she has used to cope on this day in the past. Pt additionally reports that she was able to utilize healthy coping skills of renee painting, reaching out to her supports, opposite action, and positive self-talk to best cope with the difficult emotions that day. Reports increased awareness of the need for proactively practicing her distress tolerance and emotion regulation skills so that she is able to remember to utilize them in the moment as well. Reports increased urges to drink over the last 10-12 days and has struggled with increased alcohol consumption over that past two weeks but did not feel it was a problem until recently which is why she did not previously bring this up. Receptive of referral resources for substance use support, but is unsure of willingness to seek additional support at this time. Recognizes potential risk of self-sabotage and impacts of substance use on maintaining gains made. Pt has successfully maintained safety throughout IOP admission and denies any SI in at least the past 3 weeks. Reports she does not remember the last time she had the desire to self-harm or suicidal thoughts. Risks/Concerns:: Pt denies SI/HI plan or intents as of this date, Does report an influx in alcohol consumption over the past week to 12 days. Reports urges to drink daily and is receptive of beginning Naltrexone for cravings as discussed with psychiatry on Thursday. Receptive of substance use supportive resources though uncertain of willingness to follow-through with utilizing provided res [facility]. Progress Toward Goals/Plan:: Progress noted. Pt has met treatment plan goals as noted above. DSM outcome measurements show a 39% decrease in overall symptoms since admission. DSM also shows a 33% reduction in scores on depression scale, 67% reduction on thoughts of harming self, and an 80% reduction on scores on the yessica scales. Pt self-reports improved mood stability, denies self-harming via cutting, improved communication with supports, and decrease in depression. Reports increased awareness and insight on healthy coping skills, though recommended continued focus on consistent implementation, as well as recommended additional tx focus on alcohol use. Plan is to discharge as pt no longer meets criteria for IOP level of care. Will begin aftercare program next week, 09/26/21. Time Stopped:: 09:10
--- NOTE | 2021-09-20 09:47 | BH.DS ---
Discharge Summary - Demographics Date of Admission:: 08/14/21 Discharge Date: 09/20/21 Presenting Problems at Admission:: The patient is a 26-year-old female with a history of bipolar disorder and depression who was referred to the [facility] behavioral health partial hospitalization program following 2 psychiatric admissions in the past month. The patient had a psychiatric admission from June 27 to July 04, 2021 and again she was admitted from July 17 to July 22, 2021 for suicidal ideation with a plan to cut her throat and wrists. Any lethal means have since been secured and client declines any active SI since 08/05/21. She does continue to endorse passive SI, but is able to manage these thoughts and notes reduction in severity and frequency. Client completed 2 weeks of PHP and did well with improving ability to utilize coping skills and communicate with supports which resulted in symptom reduction. However, client continues to report issues with purposelessness, depressive sx, intrusive thoughts, mood swings, and anxiety. Client continues to have difficulties in proactively using coping skills when noticing warning signs or triggers and struggles with self-deprecation. Client?s functioning is improving, but it is still not at her baseline. Discharge Diagnoses:: 1. Bipolar 1 disorder, most recent episode depressed, severe without psychosis (resolving). 2. Strong cluster B traits. 3. History of ADHD, inattentive type. 4. Alcohol use disorder. 5. Anxiety disorder, NOS Reason for Discharge:: Pt completed treatment plan goals and no longer meets criteria for IOP level of care. - Treatment Progress During Treatment & Response: Pt's attendance in IOP was consistent and she remained attentive and taking notes throughout the various sessions. Pt struggled at times with providing input and actively engaging in sessions, but improved significantly in these areas as she progressed in tx. Pt has met treatment plan goals as noted above, and would greatly benefit from continued outpatient tx to further improve consistency of skill application and prevent returning to old unhealthy coping habits. DSM outcome measurements show a 33% reduction in scores on depression scale, 67% reduction on thoughts of harming self, and an 80% reduction on scores on the yessica scales. Pt self-reports improved mood stability, denies self-harming via cutting, improved communication with supports, and decrease in depression. Reports increased awareness and insight on healthy coping skills, though recommended continued focus on consistent implementation, as well as recommended additional tx focus on alcohol use. Plan is to discharge as pt no longer meets criteria for IOP level of care. Will begin aftercare program next week, 09/26/21. Issues Still to be Addressed:: Would benefit from continued work on communication and emotion regulation skills. Recommended to continue with counseling to work on relapse prevention and substance use management skills given recent increase in alcohol use, depression, anxiety, and overall mood management. Has been given referral resources for substance use supportive services. Discharge Recommendations/Instructions:: Regular outpatient appointments with Luis Enirque for individual counseling at [facility] every 1-2 weeks. Pt is linked with [place] [id number] for medication management, pending initial intake appointment as pt recently had an intake appt with [facility] on 09/18/21 and requested a referral elsewhere. Scheduled to begin aftercare group here at [facility] starting on 09/26/21. Discharge Handout: Complete Discharge Handout with client on aftercare options and continuity of care.
--- NOTE | 2021-09-20 10:15 | BH.SGPN.GN ---
Behaviors/Verbalizations/Mental Status: []Eye contact is good. Motor activity is appropriate. Appearance is casual. Speech is Appropriate. Mood is dysthymic. Affect is congruent. Thoughts are linear and logical. No evidence of psychosis. Client Response/Progress/Benefit: []Pt was an active participant in group discussion AEB taking notes and providing input throughout. Attentive during psychoeducation reviewing internal and external obstacles and provided examples throughout. Participated in the reflection activity in which clients tristan pictures depicting their current and desired reality and shared with the group. Pt shared in current reality she is on a ledge looking down at body of water that represents happiness and job, but she's unsure she is ready to let go of her past choices and behaviors. Shared desired reality is to be swimming in the water with people letting go of some anxiety, starting to trust others and feeling more optimistic about her future. Pt to continue IOP to further improve daily functioning, continue use of stress management skills, and prevent decompensation.
--- NOTE | 2021-09-20 10:35 | BH.AFTERPLAN ---
Aftercare Plan - Demographics Treatment End Date:: 09/20/21 Psychiatrist:: Lluvia Curtis Psychiatrist Office #:: [id number] [facility] Therapist:: Maday Hines Therapist Phone #:: [phone] - Plan Details Progress/Aftercare Plan Details:: You have made progress in taking the brave step to address your mental health needs rather than continuing to try and pushing them aside or keep it to yourself. This is not an easy thing to do and deserves a lot of credit. Continuing to make time to recognize and use your coping skills when you?re struggling is going to be quarles to maintaining the progress you?ve made! Since beginning treatment, you have made strides in your overall ability to replace unhealthy ways of coping, like shutting down, bottling things up, self-harming, or cutting people of, with healthier skills. You are now more actively reaching out to support and being honest about how you?re doing before things escalate to the point of crisis. I know this is hard, but it?s important that you continue to be HONEST and regularly check-in with your supports. You have made so much progress with trying to catch and challenge your negative and distorted thoughts, as well as replace them with more positive self-talk. You have started to create encouraging and self-empowering pieces of art and have a positive encouragement Pinterest board, keep using those things to continue to improve the way you speak to yourself. You have come such a long way in beginning to set healthy boundaries with yourself by creating spending limits, trying to use healthy skills before going back to self-harming or isolating behaviors, and beginning to create plans with your supports to reduce your drinking behaviors. I know it?s tempting to fall back on the old ways or coping or to try to numb your emotions when feeling overwhelmed. Remember, you have gone over 2 months without being in the hospital. The numbing doesn?t work and won?t keep you on the path of mental wellness you?ve been working so hard to forge. Strategies for Success:: Opposite Action!!! ? do what will help you, even when your brain is saying ?This won?t work? or ?I can?t do it?, even when it feels uncomfortable, even when you are tempted to give up or fall back into unhealthy coping behaviors like isolating, self-harming/self-sabotaging, or shutting down and not communicating with your supports. Doing the hard, uncomfortable, or anxious thing is not always fun, but it is often the healthier option. Regularly check-in with yourself and ask yourself how you are really doing. Do you recognize any of your warning signs? Are you going to be faced with a potential trigger soon? If you notice you are struggling, use your calming skills! Try engaging in a relaxing activity such as looking at affirmations or inspirational quotes, taking a walk, stepping away for a minute, painting, or deep breathing. REMEMBER, external stressors impact us all and can often be outside our control, but this does not leave us helpless. During these times we get to decide how we want to respond! Remember, you are in control of your responses to external stressors! Take pictures of your coping plans so that they are always with you! Challenge negative thought patterns by trying to look at things from another perspective. Remember ?thoughts are thoughts, not facts?. Ask yourself ?How else can I think about this??, ?Do I have to give this thought value??, ?Is there evidence against this thought?, What would I say to someone else??, ?What would my supports say to me if I told them how I was feeling??. Continue to COMMUNICATE, COMMUNICATE, COMMUNICATE! Your supports won?t know how to help if you don?t let them be a part of the conversation. This includes communicating with yourself, your supports (even the ones you don?t always see eye to eye with), your counseling case manager, and your new therapist! Your mental health needs are important and deserve to be addressed! Keep challenging yourself to engage in activities that YOU enjoy and make YOU feel refreshed. These should be healthy activities that make you feel refreshed and give you a sense of emotional release. Remember to keep up with your medications and stay away from temptations to fall back into self-medicating habits. Please consider seeking additional supportive services for reducing alcohol use as well. Keep going to therapy! GO to [facility]! - Appointments Appointments/Referrals to Other Services:: Regular outpatient appointments with Luis Enrique for individual counseling at [facility] every 1-2 weeks. Pt is linked with [place] [id number] for medication management, pending initial intake appointment as pt recently had an intake appt with [facility] on 09/18/21 and requested a referral elsewhere. Scheduled to begin aftercare group here at [facility] starting on 09/26/21. - Medications Home Medications: Home Medications metformin 1,000 mg PO BID 06/25/18 ferrous sulfate 1 tab PO DAILY 05/16/19 cholecalciferol (vitamin D3) 125 mcg PO DAILY 05/17/19 epinephrine 0.3 mg IM X1 PRN #1 syringe 05/14/20 Fenofibrate 48 mg PO DAILY 07/23/20 sucralfate 1 gm PO 4X/DAY PRN PRN 09/20/20 lidocaine HCl [Lidocaine Viscous] 15 ml MUCOUS MEMBRANE Q8H PRN #100 ml 10/04/20 hydroxyzine HCl 50 mg PO QHS 01/10/21 metoprolol tartrate 25 mg PO DAILY 01/10/21 albuterol sulfate 1 puff INHALATION PRN PRN 01/25/21 albuterol sulfate 2.5 mg INHALATION PRN PRN 01/25/21 dextroamphetamine-amphetamine 20 mg PO DAILY 01/25/21 glimepiride 2 mg PO DAILY 01/25/21 lisinopril 5 mg PO DAILY 01/25/21 cyclobenzaprine 10 mg PO TID PRN 21 Days #30 tab 01/31/21 aripiprazole 15 mg PO DAILY 07/16/21 hydrocortisone 20 mg PO DAILY 07/16/21 nabumetone 500 mg PO BID 07/16/21 promethazine 25 mg PO Q6H PRN PRN 07/16/21 trazodone 100 mg PO QHS 07/16/21 dulaglutide [Trulicity] 1.5 mg SUBCUT QWEEK 07/31/21 fluticasone propionate [Flonase] 2 spray INTRANASAL DAILY 07/31/21 meloxicam [Mobic] 7.5 mg PO DAILY 07/31/21 pantoprazole 40 mg PO BID 07/31/21 vitamin B complex 1 tab PO DAILY 07/31/21 duloxetine [Cymbalta] 60 mg PO DAILY 30 Days #30 cap 08/07/21
== END 2021-09-20 13:20 | disposition home or self-care (01) ==
LOC: BHIOP 08:17
PROVIDERS: PCP Family Medicine; Referring Provider Psychiatry & Neurology Psychiatry; Visit Provider Psychiatry & Neurology Psychiatry
DX: F31.4 Bipolar disorder, current episode depressed, severe, without psychotic features (principal); F90.0 Attention-deficit hyperactivity disorder, predominantly inattentive type; Z72.89 Other problems related to lifestyle; Z79.899 Other long term (current) drug therapy; F41.9 Anxiety disorder, unspecified
CPT/HCPCS: S9480; 90832; 90853

== ENCOUNTER 2021-09-26 14:26 | Outpatient (RCR) | payer OTHER, MEDICAID, SELFPAY ==
--- NOTE | 2021-09-26 14:00 | BH.SGPN.GN ---
Behaviors/Verbalizations/Mental Status: []Client alert and oriented, casual in appearance. Eye contact good. Motor activity appropriate. Speech within normal limits. Affect congruent. Mood anxious and euthymic. Thoughts linear, logical, no signs of hallucinations or delusions Client Response/Progress/Benefit: []Pt responded well to session AEB providing input throughout and listening attentively to others. Pt reported current emotion as ?anxious? and attributes this somewhat to the fact that she is still making plans to get started with regular outpatient counseling and medication management. Pt identified several coping skills she has been using over the past week to continue to manage mental health sx, which included: reaching out to supports, her stress ball, and going for walks. Pt connected with self-reflection discussion. Worked with group to identify the benefits of self-reflection. Seemed to benefit from identifying how to incorporate self-reflection into life more often. Pt completed aftercare specific self-reflection activity and indicated she has seen improvements in her ability to use opposite action to ?do hard things? but would like to continue to focus on making improvements in improving overall motivation levels. Willing to complete weekly self-reflection assignment for homework. Pt to continue aftercare to maintain gains and prevent decompensation. Narrative Note: []
--- NOTE | 2021-09-26 14:30 | BH.COMM ---
Communication Note - Communication with Client Communication Note: Pt completed IOP level of care and presented to begin weekly relapse prevention group. Case discussed with Dr. Bautista with plan to admit with dx of f31.4
--- NOTE | 2021-09-26 14:53 | BH.MTP ---
Master Treatment Plan - Patient Information Program Physician:: Dr. Curtis Primary Therapist:: Maday MENDIOLA - Psychiatric Diagnoses Psychiatric Diagnoses:: Bipolar 1 disorder, most recent episode depressed, severe without psychosis (resolving). F31.4; Strong cluster B traits; History of ADHD, inattentive type; Alcohol use disorder; Anxiety disorder, NOS Diagnosis Code(s):: F31.4 - Estimated LOS Estimated LOS (in weeks):: 10 Problem/Goal #1 - Problem/Goal #1 Stated Goal:: client will maintain or see a reduction in symptoms AEB client score on the DSM 5 cross-cutting measure and improve client's daily functioning. - Objectives Objective #1 Stated Objective: Client will continue to consistently apply healthy coping skills to maintain progress made in IOP tx. Interventions: Through group therapy, client will review warning signs and triggers as well as healthy coping skills learned in IOP tx to successfully maintain gains while transitioning into outpatient therapy. Discharge Criteria: Client will have accomplished this goal when client's score on the DSM-5 cross-cutting measure has either maintained or reduced over a 10 week period. Target Date: 12/05/21 Review Date: 09/26/21 Status: open Objective #2 Stated Objective: Client will learn and utilize 2-3 maintenance strategies to prevent decompensation from original IOP DSM-5 scores. Interventions: Through group therapy, client will be provided with education on healthy maintenance behaviors, relapse prevention techniques, and healthy coping strategies. Discharge Criteria: Client will have accomplished this goal when can report using at least 2 maintenance skills to prevent decompensation compared to original IOP DSM-5 scores Target Date: 12/05/21 Review Date: 09/26/21 Status: open
--- NOTE | 2021-10-04 14:00 | BH.SGPN.GN ---
Behaviors/Verbalizations/Mental Status: []Client alert and oriented, casually dressed. Eye contact good. Motor activity appropriate. Speech within normal limits. Affect congruent, mood euthymic. Thoughts linear, logical, no signs of hallucinations or delusions. Client Response/Progress/Benefit: []Pt responded well to session AEB pt providing input during discussion and listening attentively to peers. Pt stated has counseling appointment for October 08, but still on waiting list for psychiatry. Pt reported she has had some difficulty adjusting to being out of IOP because used to being somewhere 3 days a week. Pt stated she has been using renee painting, progressive muscle relaxation, stress ball, belly breathing, anxiety rings and opposite action to cope with various feelings and stressors. Pt engaged in discussion about self-love. Pt worked with group to identify strategies to increase self-love. Pt stated wanting to work on self-love by starting to celebrate her daily wins. Pt seemed to benefit from reviewing treatment progress and stressors as well as learning about how to increase self-love. Pt to continue aftercare group to promote ongoing use of healthy coping, continue to use open communication, and prevent decompensation.
== END 2021-10-05 23:59 ==
LOC: BHOG 14:26
PROVIDERS: PCP Family Medicine; Referring Provider Psychiatry & Neurology Psychiatry; Visit Provider Psychiatry & Neurology Psychiatry
DX: F31.4 Bipolar disorder, current episode depressed, severe, without psychotic features (principal); F90.0 Attention-deficit hyperactivity disorder, predominantly inattentive type; Z72.89 Other problems related to lifestyle; F41.9 Anxiety disorder, unspecified
CPT/HCPCS: 90853

== ENCOUNTER 2021-10-07 08:36 | Outpatient (RCR) | payer OTHER, MEDICAID, SELFPAY ==
--- NOTE | 2021-10-10 14:00 | BH.SGPN.GN ---
Behaviors/Verbalizations/Mental Status: []Client alert and oriented, casual in appearance. Eye contact good. Motor activity appropriate. Speech within normal limits. Affect congruent. Mood euthymic and tired. Thoughts linear, logical, no signs of hallucinations or delusions Client Response/Progress/Benefit: []Pt responded well to session AEB pt openly sharing thoughts and feelings and completing worksheet. Pt completed the self-reflection sheet stating they have been taking medications consistently, but they did not have a counseling or psychiatry appointment this week. Pt has a psychiatry appointment scheduled though. Pt also reports using coping skills such as opposite action, giving herself credit, and celebrating small and big wins. Pt responded well to group discussion and review about self-care. Pt stated they will work on following self-care activities: allowing herself to cry, getting coffee with a friend, painting, getting a haircut, and spending time in nature. Pt seemed to benefit from support from peers and identifying self-care plan. Pt will continue IOP aftercare to promote gains and further increase mood stability. Narrative Note: []
--- NOTE | 2021-10-31 14:00 | BH.SGPN.GN ---
Behaviors/Verbalizations/Mental Status: []Client alert and oriented, casually dressed and groomed. Eye contact good. Motor activity appropriate. Speech within normal limits. Affect congruent, mood anxious and euthymic. Thoughts linear, logical, no signs of hallucinations or delusions. Client Response/Progress/Benefit: []Pt responded well to session, provided input, and listened attentively to peers. Reported struggling this past week to maintain consistent with outpatient counseling but was able to attend an appointment for medication management. Identified plans to schedule a new counseling session to prevent from falling back into unhealthy coping behaviors. Identified ongoing use of opposite action over the past week to prevent from self-isolating. Pt engaged in discussion on self-advocacy. Worked with group to identify the benefits of self-advocacy, as well as common barriers. Reviewed the personal bill of rights and shared she does well to advocate for her right to ?say I don?t know?. Discussed struggling with personal right of ?I have the right to not give excuses or reasons for my behaviors?. Noted plans to take steps in better advocating for this right by challenging herself to start small with not explaining why she says no to doing something. Client seemed to benefit from reviewing treatment progress and skill application, as well as learning about how to increase self-advocacy. Client to continue aftercare to promote gains, prevent regression, and further improve functioning. Narrative Note: []
--- NOTE | 2021-10-31 16:35 | BH.DS_ITS ---
Discharge Summary - Demographics Date of Admission:: 09/26/21 Discharge Date: 10/31/21 Presenting Problems at Admission:: Pt discharged from IOP tx and transitioned to IOP aftercare to maintain gains Pt made in IOP and to reinforce healthy coping skills. At admission to IOP aftercare, pt continued to report symptoms of depression, anxiety, irritability, and the use of unhealthy coping skills at times. Pt also continued to experience stress with work, family, and substance use. Discharge Diagnoses:: Bipolar 1 disorder, most recent episode depressed, severe without psychosis (resolving). F31.4; Strong cluster B traits; History of ADHD, inattentive type; Alcohol use disorder; Anxiety disorder, NOS Reason for Discharge:: IOP aftercare was canceled due to lack of attendance by pts. Pt discharged and will continue with traditional outpatient counseling. - Treatment Progress During Treatment & Response: Pt responded well and made progress in IOP aftercare as evidenced by pt's participation in group discussions and self- report of mostly consistently applying coping skills. Pt's overall DSM-5 scores decreased by an additional 41% from IOP admission. Based on pt's DSM-5 scores from 10/24/21, but has been able to maintain gains made in IOP tx for depression, but pt's anxiety was slightly higher than it was in IOP. Pt reports she has not been as consistent with outpatient counseling, which could be a factor. Issues Still to be Addressed:: Would benefit from continued work on communication and emotion regulation skills. Recommended to continue with counseling to work on relapse prevention and substance use management skills given recent increase in alcohol use, depression, anxiety, and overall mood management. Discharge Recommendations/Instructions:: Pt will continue seeing her provider at [facility] for medication management and [facility] Enrique [facility] for individual counseling. At IOP discharge, pt was given resources for substance abuse services should pt need them. Discharge Handout: Complete Discharge Handout with client on aftercare options and continuity of care.
== END 2021-11-05 23:59 ==
LOC: BHOG 08:36
PROVIDERS: PCP Family Medicine; Referring Provider Psychiatry & Neurology Psychiatry; Visit Provider Psychiatry & Neurology Psychiatry
DX: F31.4 Bipolar disorder, current episode depressed, severe, without psychotic features (principal); F41.9 Anxiety disorder, unspecified; F90.0 Attention-deficit hyperactivity disorder, predominantly inattentive type; Z72.89 Other problems related to lifestyle
CPT/HCPCS: 90853

== ENCOUNTER 2021-11-04 21:23 | Emergency (ER) | payer OTHER, MEDICAID, SELFPAY ==
[2021-11-04 21:24] VITALS: BP 137/95; PULSE 102; RESP 16; TEMP 36.7; O2SAT 98; BMI 68.3
[2021-11-04 21:28] VITALS: BP 137/95; PULSE 102; RESP 16; TEMP 36.7; O2SAT 98
[2021-11-04 21:52] VITALS: O2SAT 98
[2021-11-04 21:55] VITALS: PULSE 113; RESP 20; RESP 22; O2SAT 98
[2021-11-04] MEDS: Ipratropium/Albuterol Sulfate 3 ML AMPUL.NEB INHALATION (21:55)
--- NOTE | 2021-11-04 22:08 | RAD_ITS ---
STUDY: X-RAY CHEST REASON FOR EXAM: Female, 26 years old. sob TECHNIQUE: Single AP portable view of the chest. COMPARISON: 11/30/2020 FINDINGS: The lungs are clear and expanded. There is no demonstrated pleural abnormality. Normal size heart. Normal mediastinum and ana cristina. Normal visualized pulmonary arteries. Normal visualized aortic arch and descending thoracic aorta. Normal visualized thoracic spine. Normal visualized ribs, clavicles, and shoulders. There is no demonstrated abnormality of the visualized soft tissue structures of the upper abdomen. RAD/Chest 1 View (Portable) IMPRESSION: Normal x-ray examination of the chest. Electronically Signed: Justen Henderson DO at 22:26 EDT ,
--- NOTE | 2021-11-04 22:35 | ED.VIS.DYS ---
HPI History of Present Illness Chief Complaint: Shortness of Breath Narrative Narrative: Patient presents with 3 days history of some shortness of breath and some chest pain. It is nonpleuritic it is sharp and stabbing. No back pain or tearing sensation. No new lower extremity edema or calf pain. She is COVID-positive. No fevers or chills. She is denying a cough. She does have a history of asthma and psychiatric disease. She has no myalgias. She is eating and drinking well and has no nausea vomiting or any GI symptoms. No headache or confusion no neck pain or stiffness. [facility] Medical History ADHD Anemia Anxiety disorder, unspecified Arthritis Asthma Bipolar 1 disorder Cancer Cancer Cardiology follow-up encounter [place]'s disease Depression Diabetes Dietary restriction Gastric reflux GERD (gastroesophageal reflux disease) Herniated disc History of echocardiogram History of irregular heartbeat History of pain when walking History of steroid therapy Injury of back Injury of head and neck Kidney stones Non-smoker Obesity Ovarian cyst PCOS (polycystic ovarian syndrome) Walker as ambulation aid Home Medications metformin 1,000 mg PO BID 06/25/18 [History Last Taken 01/30/21 08:00] ferrous sulfate 1 tab PO DAILY 05/16/19 [History Last Taken 01/24/21 08:00] cholecalciferol (vitamin D3) 125 mcg PO DAILY 05/17/19 [History Last Taken 01/24/21 08:00] epinephrine 0.3 mg IM X1 PRN #1 syringe 05/14/20 [Rx Last Taken 01/30/21 08:00] Fenofibrate 48 mg PO DAILY 07/23/20 [History Last Taken 01/30/21 08:00] sucralfate 1 gm PO 4X/DAY PRN PRN 09/20/20 [History Last Taken 01/30/21 08:00] lidocaine HCl [Lidocaine Viscous] 15 ml MUCOUS MEMBRANE Q8H PRN #100 ml 10/04/20 [Rx Last Taken 01/30/21 08:00] hydroxyzine HCl 50 mg PO QHS 01/10/21 [History Last Taken 01/30/21 08:00] metoprolol tartrate 25 mg PO DAILY 01/10/21 [History Last Taken 01/30/21 08:00] albuterol sulfate 1 puff INHALATION PRN PRN 01/25/21 [History Last Taken 01/30/21 08:00] albuterol sulfate 2.5 mg INHALATION PRN PRN 01/25/21 [History Last Taken 01/30/21 08:00] dextroamphetamine-amphetamine 20 mg PO DAILY 01/25/21 [History Last Taken 01/30/21 08:00] glimepiride 2 mg PO DAILY 01/25/21 [History Last Taken 01/30/21 08:00] lisinopril 5 mg PO DAILY 01/25/21 [History Last Taken 01/30/21 08:00] cyclobenzaprine 10 mg PO TID PRN 21 Days #30 tab 01/31/21 [Rx Last Taken Unknown] aripiprazole 15 mg PO DAILY 07/16/21 [History Last Taken Unknown] hydrocortisone 20 mg PO DAILY 07/16/21 [History Last Taken Unknown] nabumetone 500 mg PO BID 07/16/21 [History Last Taken Unknown] promethazine 25 mg PO Q6H PRN PRN 07/16/21 [History Last Taken Unknown] trazodone 100 mg PO QHS 07/16/21 [History Last Taken Unknown] dulaglutide [Trulicity] 1.5 mg SUBCUT QWEEK 07/31/21 [History Last Taken Unknown] fluticasone propionate [Flonase] 2 spray INTRANASAL DAILY 07/31/21 [History Last Taken Unknown] meloxicam [Mobic] 7.5 mg PO DAILY 07/31/21 [History Last Taken Unknown] pantoprazole 40 mg PO BID 07/31/21 [History Last Taken Unknown] vitamin B complex 1 tab PO DAILY 07/31/21 [History Last Taken Unknown] duloxetine [Cymbalta] 60 mg PO DAILY 30 Days #30 cap 08/07/21 [Rx Last Taken Unknown] molnupiravir 800 mg PO Q12H 5 Days #40 cap 11/04/21 [Rx Last Taken Unknown] Allergy/AdvReac Type Severity Reaction Status Date / Time penicillin V potassium Allergy Mild Rash Verified 11/04/21 21:24 [From Pen-Vee K] brompheniramine maleate Allergy Shortness Verified 11/04/21 21:24 [From Dimetapp of breath (brompheniramine-PPA)] celery Allergy Swelling Verified 11/04/21 21:24 phenylpropanolamine HCl Allergy Shortness Verified 11/04/21 21:24 [From Dimetapp of breath (brompheniramine-PPA)] amoxicillin trihydrate AdvReac Intermediate Diarrhea Verified 11/04/21 21:24 [From Augmentin] potassium clavulanate AdvReac Intermediate Diarrhea Verified 11/04/21 21:24 [From Augmentin] dicyclomine HCl [From Bentyl] AdvReac Nausea/Vom/ Verified 11/04/21 21:24 Diarrhea sertraline [From Zoloft] AdvReac Other Verified 11/04/21 21:24 plastic tape Allergy Rash Uncoded 11/04/21 21:24 FRUCTOSE AdvReac Nausea/Vom/ Uncoded 11/04/21 21:24 Diarrhea Family History Father Diabetes Mother Hypertension Grandmother Breast cancer 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 H/O endoscopy H/O oophorectomy H/O ovarian cystectomy H/O wisdom tooth extraction History of adrenal surgery History of back surgery History of tonsillectomy and adenoidectomy Hx of cholecystectomy Social History household members: family Smoking Status: Never smoker alcohol intake: current alcohol intake frequency: a few times a month substance use type: does not use seatbelt use: always do you feel safe at home: Yes ROS ROS ED ROS Narrative Past medical history: Reviewed Medications: Reviewed Social history: Noncontributory Review of systems: All systems negative except as indicated General: No fever Eyes: No visual changes ENT: No upper airway congestion, normal voice Neck: No neck pain Cardiovascular: Chest wall pain which is not pleuritic. No back pain or tearing sensation. Respiratory: As in HPI Gastrointestinal: No abdominal pain, nausea vomiting or diarrhea Genitourinary: No dysuria Musculoskeletal: Denies myalgias no difficulty with ambulation Skin: No rash Neurological: No memory loss, confusion or any focal weakness Psych: No recent behavioral changes Hematologic: No easy bleeding or easy bruising EXAM Physical Exam Narrative Exam Narrative: Physical exam General: She appears relatively comfortable. She appears her stated BMI of 68.3 kg/m?. Head: Normocephalic, Atraumatic Eyes: Conjunctiva not pale ENT: Moist mucous membranes. No congestion Neck: Supple, Nontender, No lymphadenopathy Cardiovascular: Regular rate, Regular rhythm Respiratory: Mostly clear except for some scant wheezing. She is speaking in full sentences does not appear in respiratory distress. Abdomen: Soft, Nontender, Nondistended Back: Nontender, Normal Inspection. Negative for: CVA tenderness Extremities: Nontender, she is some chronic bilateral symmetric lower extremity edema. No calf pain. Skin: Normal color, No rash Neurological: Alert, Normal Strength, Normal Sensation Psychological: Normal affect Const Vital Signs: 11/04/21 21:24 11/04/21 21:28 11/04/21 21:52 Temperature 98.0 F 98.0 F Temperature Source Temporal Temporal Pulse Rate 102 H 102 H Respiratory Rate 16 16 Respiratory Effort Non-Labored Short of Breath Respiratory Depth Respiratory Pattern Blood Pressure 137/95 H 137/95 H Blood Pressure Mean 109 109 Pulse Ox 98 98 Oxygen Delivery Method Room Air Room Air Room Air 11/04/21 21:55 Temperature Temperature Source Pulse Rate 113 H Respiratory Rate 22 H Respiratory Effort Normal Short of Breath Respiratory Depth Shallow Respiratory Pattern Tachypnea Blood Pressure Blood Pressure Mean Pulse Ox 98 Oxygen Delivery Method Room Air MDM MDM MDM Narrative Medical decision making narrative: Patient is positive for COVID, she has multiple risk factors including asthma and morbid obesity, I believe she would benefit from monoclonal antibodies which I will prescribe from the emergency department. Otherwise she appears well is satting well and has a normal x-ray will discharge in stable condition. She is not hypoxic therefore she does not meet criteria for dexamethasone. Radiography Diagnostic Testing: Clinical Impression(s) from Imaging Studies Chest X-Ray 11/04/21 22:08 IMPRESSION: Normal x-ray examination of the chest. Electronically Signed: Justen Henderson DO at 22:26 EDT Reading Location ID and State: [facility] / MD Tel , Service support , Discharge Plan Triage Chief Complaint: Shortness of Breath ED Provider: Jj Cole Dx/Rx/DC Orders Clinical Impression: COVID, Asthma Instructions: How COVID-19 Spreads, Simple Ways to Avoid COVID-19 Prescriptions: New molnupiravir 200 mg capsule 800 mg PO Q12H 5 Days Qty: 40 RF: 0 No Action metformin 1,000 MG tablet 1,000 mg PO BID RF: 0 ferrous sulfate 325 MG tablet 1 tab PO DAILY RF: 0 cholecalciferol (vitamin D3) 125 MCG capsule 125 mcg PO DAILY RF: 0 epinephrine 0.3 MG syringe 0.3 mg IM X1 PRN (Reason: Anaphylaxis) Qty: 1 RF: 0 Fenofibrate 48 mg PO DAILY RF: 0 sucralfate 1 GM tablet 1 gm PO 4X/DAY PRN PRN (Reason: Gastric Reflux) RF: 0 lidocaine HCl [Lidocaine Viscous] 2 % solution 15 ml mucous membrane Q8H PRN (Reason: pain) Qty: 100 RF: 0 albuterol sulfate 2.5 mg /3 mL (0.083 %) solution for nebulization 2.5 mg inhalation PRN PRN (Reason: ASTHMA) RF: 0 glimepiride 2 mg tablet 2 mg PO DAILY RF: 0 dextroamphetamine-amphetamine 20 mg capsule,extended release 24hr 20 mg PO DAILY RF: 0 lisinopril 5 mg tablet 5 mg PO DAILY RF: 0 albuterol sulfate 90 mcg/actuation HFA aerosol inhaler 1 puff INHALATION PRN PRN (Reason: ASTHMA) RF: 0 cyclobenzaprine 10 mg tablet 10 mg PO TID PRN (Reason: muscle spasm) 21 Days Qty: 30 RF: 0 metoprolol tartrate 25 mg Tablet 25 mg PO DAILY RF: 0 hydroxyzine HCl 25 mg Tablet 50 mg PO QHS RF: 0 trazodone 50 mg tablet 100 mg PO QHS RF: 0 promethazine 25 mg tablet 25 mg PO Q6H PRN PRN (Reason: Nausea) RF: 0 hydrocortisone 10 mg tablet 20 mg PO DAILY RF: 0 nabumetone 500 mg Tablet 500 mg PO BID RF: 0 aripiprazole 10 mg tablet 15 mg PO DAILY RF: 0 pantoprazole 40 mg Tablet,Delayed Release (Dr/Ec) 40 mg PO BID RF: 0 Trulicity 1.5 mg/0.5 mL Pen Injector 1.5 mg SUBCUT QWEEK RF: 0 meloxicam [Mobic] 7.5 mg Tablet 7.5 mg PO DAILY RF: 0 vitamin B complex Tablet 1 tab PO DAILY RF: 0 fluticasone propionate [Flonase] 50 mcg/actuation [place],Suspension 2 spray INTRANASAL DAILY RF: 0 duloxetine [Cymbalta] 60 mg capsule,delayed release(DR/EC) 60 mg PO DAILY 30 Days Qty: 30 RF: 1 Primary Care Provider: Miguelito Unger Referrals: Miguelito Unger MD [Primary Care Provider] - 3-5 Days Disposition Disposition: Home, Self Care
[2021-11-04 22:46] VITALS: O2SAT 98
== END 2021-11-04 22:47 | disposition home or self-care (01) ==
PROVIDERS: Emergency Provider Emergency Medicine; PCP Family Medicine; Visit Provider Emergency Medicine
DX: U07.1 COVID-19 (principal); J45.909 Unspecified asthma, uncomplicated
CPT/HCPCS: 71045; 94640; 99251; 99282; G0463

== ENCOUNTER 2021-11-06 07:35 | Outpatient (RCR) | payer OTHER, MEDICAID, SELFPAY | END 2021-11-27 09:48 | disposition home or self-care (01) | LOC: BHOG 07:35 | PROVIDERS: PCP Family Medicine; Referring Provider Psychiatry & Neurology Psychiatry; Visit Provider Psychiatry & Neurology Psychiatry | DX: Z00.00 Encounter for general adult medical examination without abnormal findings (principal) ==

== ENCOUNTER → 2021-12-31 | Outpatient (CLI) | payer OTHER, MEDICAID, SELFPAY ==
--- NOTE | 2021-12-31 08:37 | EKG12_ITS ---
Test Reason : PALP Blood Pressure : / mmHG Vent. Rate : 089 BPM Atrial Rate : 089 BPM P-R Int : 144 ms QRS Dur : 094 ms QT Int : 400 ms P-R-T Axes : 031 025 015 degrees QTc Int : 486 ms Normal sinus rhythm Poor R wave progression Anterior DC, age undetermined, cannot be excluded Confirmed by SEVERO MARCH, HOLLAND ([id number]), general expeditor KRISTIE CARRERO ([id number]) on 01/01/2022 12:44:48 PM Referred By: Sara Juarez Confirmed By:HOLLAND ELKINS MD
== END | disposition home or self-care (01) ==
LOC: PSN 08:36
PROVIDERS: PCP Family Medicine; Referring Provider Physician Assistant; Visit Provider Physician Assistant
DX: R00.2 Palpitations (principal); Z79.899 Other long term (current) drug therapy
CPT/HCPCS: 93005

== ENCOUNTER 2022-03-18 17:13 | Emergency (ER) | payer OTHER, MEDICAID, SELFPAY ==
[2022-03-18 17:14] VITALS: BP 140/82; PULSE 95; RESP 18; TEMP 36.6; O2SAT 99; BMI 72.1
--- NOTE | 2022-03-18 17:53 | ED.VIS.CHEST ---
HPI History of Present Illness Chief Complaint: Chest Pain Informant: patient Onset/Context/Timing Onset: Yesterday Timing: Continuous Quality: Positive for Tightness Location: Substernal and Left Chest Current Severity: Mild Maximum Severity: Moderate Narrative Narrative: Patient presents with continued chest pain after a panic attack. Patient states she had a panic attack yesterday. She will often get chest pain with her panic attacks and for a day or so afterward. She states this pain just feels different than her normal. She points to the substernal area and states that wraps around her left chest. She feels as if she cannot get a big deep breath. She has not had cough, fever, chills. No significant personal or family history of cardiac disease at a young age. [facility] Medical History ADHD Anemia Anxiety disorder, unspecified Arthritis Asthma Bipolar 1 disorder Cancer Cancer Cardiology follow-up encounter [place]'s disease Depression Diabetes Diabetes Dietary restriction Gastric reflux GERD (gastroesophageal reflux disease) Herniated disc History of echocardiogram History of irregular heartbeat History of pain when walking History of steroid therapy Hypertriglyceridemia Injury of back Injury of head and neck Kidney stones Non-smoker Obesity Obesity Ovarian cyst PCOS (polycystic ovarian syndrome) Proteinuria due to type 2 diabetes mellitus Walker as ambulation aid Home Medications ferrous sulfate 325 mg (65 mg iron) tablet 1 tab PO DAILY 05/16/19 [History Last Taken 01/24/21 08:00] cholecalciferol (vitamin D3) 125 mcg (5,000 unit) capsule 125 mcg PO DAILY supplement 05/17/19 [History Last Taken 01/24/21 08:00] epinephrine 0.3 mg/0.3 mL injection, auto-injector 0.3 mg (0.3 mL) IM X1 PRN Anaphylaxis ##1 05/14/20 [Rx Last Taken 01/30/21 08:00] Fenofibrate 48 mg PO DAILY 07/23/20 [History Last Taken 01/30/21 08:00] lidocaine HCl 2 % mucosal solution (Lidocaine Viscous) 15 ml mucous membrane Q8H PRN pain #100 mL 10/04/20 [Rx Last Taken 01/30/21 08:00] hydroxyzine HCl 25 mg tablet 50 mg PO QHS 01/10/21 [History Last Taken 01/30/21 08:00] metoprolol tartrate 25 mg tablet 25 mg PO DAILY 01/10/21 [History Last Taken 01/30/21 08:00] albuterol sulfate 2.5 mg/3 mL (0.083 %) solution for nebulization 2.5 mg inhalation PRN PRN ASTHMA 01/25/21 [History Last Taken 01/30/21 08:00] albuterol sulfate 90 mcg/actuation aerosol inhaler 1 puff inhalation PRN PRN ASTHMA 01/25/21 [History Last Taken 01/30/21 08:00] lisinopril 5 mg tablet 5 mg PO DAILY 01/25/21 [History Last Taken 01/30/21 08:00] cyclobenzaprine 10 mg tablet 10 mg PO TID PRN muscle spasm 3 weeks #30 tabs 01/31/21 [Rx Last Taken Unknown] aripiprazole 10 mg tablet 15 mg PO DAILY 07/16/21 [History Last Taken Unknown] hydrocortisone 10 mg tablet 20 mg PO DAILY 07/16/21 [History Last Taken Unknown] promethazine 25 mg tablet 25 mg PO Q6H PRN PRN Nausea 07/16/21 [History Last Taken Unknown] trazodone 50 mg tablet 100 mg PO QHS 07/16/21 [History Last Taken Unknown] fluticasone propionate 50 mcg/actuation nasal spray,suspension 2 spray intranasal DAILY 07/31/21 [History Last Taken Unknown] meloxicam 7.5 mg tablet (Mobic) 7.5 mg PO DAILY 07/31/21 [History Last Taken Unknown] pantoprazole 40 mg tablet,delayed release 40 mg PO BID 07/31/21 [History Last Taken Unknown] duloxetine 60 mg capsule,delayed release (Cymbalta) 60 mg PO DAILY 30 days #30 caps 08/07/21 [Rx Last Taken Unknown] Trulicity 4.5 mg/0.5 mL subcutaneous pen injector (dulaglutide) 4.5 mg (0.5 mL) subcut QWEEK #2 mL 01/07/22 [Rx Last Taken Unknown] clindamycin HCl 150 mg capsule 150 mg PO .qid 01/07/22 [History Last Taken Unknown] empagliflozin 25 mg tablet (Jardiance) 25 mg PO DAILY #30 tabs 01/07/22 [Rx Last Taken Unknown] glimepiride 2 mg tablet 4 mg PO DAILY 01/07/22 [History Last Taken Unknown] cyclobenzaprine 10 mg tablet 10 mg PO BID PRN muscle spasm #10 tabs 03/18/22 [Rx Last Taken Unknown] Allergy/AdvReac Type Severity Reaction Status Date / Time penicillin V potassium Allergy Mild Rash Verified 03/18/22 17:14 [From Pen-Vee K] brompheniramine maleate Allergy Shortness Verified 03/18/22 17:14 [From Dimetapp of breath (brompheniramine-PPA)] celery Allergy Swelling Verified 03/18/22 17:14 phenylpropanolamine HCl Allergy Shortness Verified 03/18/22 17:14 [From Dimetapp of breath (brompheniramine-PPA)] amoxicillin trihydrate AdvReac Intermediate Diarrhea Verified 03/18/22 17:14 [From Augmentin] potassium clavulanate AdvReac Intermediate Diarrhea Verified 03/18/22 17:14 [From Augmentin] dicyclomine HCl [From Bentyl] AdvReac Nausea/Vom/ Verified 03/18/22 17:14 Diarrhea sertraline [From Zoloft] AdvReac Other Verified 03/18/22 17:14 plastic tape Allergy Rash Uncoded 03/18/22 17:14 FRUCTOSE AdvReac Nausea/Vom/ Uncoded 03/18/22 17:14 Diarrhea Family History Father Diabetes Mother Hypertension Grandmother Breast cancer 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 H/O endoscopy H/O oophorectomy H/O ovarian cystectomy H/O partial adrenalectomy H/O wisdom tooth extraction History of adrenal surgery History of back surgery History of tonsillectomy and adenoidectomy Hx of cholecystectomy Social History household members: family Smoking Status: Never smoker alcohol intake: current alcohol intake frequency: a few times a month substance use type: does not use seatbelt use: always do you feel safe at home: Yes ROS ROS ED Constitutional Constitutional ED: Denies chills or fever(s) Eyes Eyes: Denies change in vision or discharge from eye(s) ENT ENT ED: Denies discharge from eye(s), rhinorrhea or sore throat Cardiovascular Cardiovascular: Reports chest pain; Denies palpitations Respiratory/Chest Respiratory/Chest: Reports dyspnea; Denies cough Gastrointestinal Gastrointestinal: Denies abdominal pain, diarrhea, nausea or vomiting Genitourinary Genitourinary ED: Denies dysuria Musculoskeletal Musculoskeletal: Denies back pain or extremity pain Integumentary Denies Abrasions or rash Neurologic Neurologic: Denies headache(s) or weakness Psychiatric Psychiatric: Denies anxiety or depression Endocrine Endocrinology: Denies polydipsia or polyuria Allergic/Immunologic Allergic/Immunologic ED: Denies lip swelling or urticaria EXAM Physical Exam Const Vital Signs: 03/18/22 17:14 03/18/22 18:13 Temperature 97.8 F Temperature Source Temporal Pulse Rate 95 Respiratory Rate 18 Blood Pressure 140/82 H Blood Pressure Mean 101 Pulse Ox 99 Oxygen Delivery Method Room Air Room Air Positive well nourished, well developed and obese General Appearance ED: well developed Nutritional Appearance: obese HEENT Reports normocephalic and head/scalp atraumatic Eyes PERRL and EOMs intact bilaterally Neck supple Chest Wall inspection of chest normal Chest Narrative: Anterior chest wall tenderness palpation. No crepitus. Resp normal respiratory effort and clear to auscultation bilaterally Cardio regular rate and regular rhythm GI normal to inspection, nondistended, normoactive bowel sounds Palpation: soft Neuro oriented x3 and no sensory deficits noted Sensorium / Orientation: alert Motor Exam: strength 5/5 throughout Psych mental status grossly normal MDM MDM MDM Narrative Medical decision making narrative: EKG, chest x-ray, lab work obtained. Lab Data Attestation: I reviewed the patient's lab results. Labs: Laboratory Results - last 24 hr 03/18/22 03/18/22 18:18 18:18 WBC 13.0 H RBC 4.54 Hgb 11.9 L Hct 37.3 MCV 82.2 MCH 26.2 L MCHC 31.9 L RDW Std Deviation 41.7 RDW Coeff of Silvia 14.2 Plt Count 331 MPV 10.1 Immature Gran % (Auto) 0.600 Neut % (Auto) 64.5 Lymph % (Auto) 26.2 [place] % (Auto) 5.8 Eos % (Auto) 2.5 Baso % (Auto) 0.4 Absolute Neuts (auto) 8.4 H Absolute Lymphs (auto) 3.41 Nucleated RBC % 0 Sodium 138 Potassium 3.9 Chloride 104 Carbon Dioxide 25.0 Anion Gap 9 BUN 9 Creatinine 0.66 Estim Creat Clear Calc 132.59 Est GFR (MDRD) Af Amer 141 Est GFR (MDRD) Non-Af 116 BUN/Creatinine Ratio 13.6 Glucose 289 H Calcium 9.2 Troponin I High Sens 4 Radiography Diagnostic Testing: Clinical Impression(s) from Imaging Studies Chest X-Ray 03/18/22 18:13 IMPRESSION: There are no acute findings. Electronically Signed: Woody Sterling MD at 18:37 EDT , EKG Initial EKG: Attestation: I personally reviewed and interpreted this EKG as follows: Interpretation: Sinus Rhythm (Sinus at 93 with no acute ischemia.) Treatment and Re-Evaluation Narrative: Repeat evaluation patient sitting in bedside chair. She is in no acute distress. EKG reveals no acute ischemia. Chest x-ray per my interpretation reveals no acute abnormalities. CBC reveals mild elevation of white count at 13.0 but no left shift noted. Hemoglobin 11.9. Chemistry studies unremarkable and troponin normal at 4. Patient does have reproducible chest wall pain after having a panic attack. I do not believe this is cardiac in nature. She is reassured with his findings. She will use topical Voltaren cream and I will write her a short prescription of Flexeril to help with muscle cramp and spasm. Return instructions provided. Discharge Plan Triage Chief Complaint: Chest Pain ED Provider: Noni Ayala Dx/Rx/DC Orders Clinical Impression: Chest wall muscle strain Instructions: ED Chest Wall Strain Prescriptions: New cyclobenzaprine 10 mg tablet 10 mg PO BID PRN (Reason: muscle spasm) Qty: 10 0RF No Action clindamycin HCl 150 mg capsule 150 mg PO .qid Label Comments: TAKE 1 CAPSULE FOUR TIMES DAILY UNTIL GONE Jardiance 25 mg tablet 25 mg PO DAILY Qty: 30 5RF Trulicity 4.5 mg/0.5 mL pen injector 4.5 mg subcut QWEEK Qty: 2 5RF glimepiride 2 mg tablet 4 mg PO DAILY Label Comments: TAKE 1 TABLET BY MOUTH ONCE DAILY WITH BREAKFAST ferrous sulfate 325 MG tablet 1 tab PO DAILY Label Comments: TAKE 1 TABLET BY MOUTH ONCE DAILY WITH BREAKFAST cholecalciferol (vitamin D3) 125 MCG capsule 125 mcg PO DAILY epinephrine 0.3 MG syringe 0.3 mg IM X1 PRN (Reason: Anaphylaxis) Qty: 1 0RF Fenofibrate 48 mg PO DAILY lidocaine HCl [Lidocaine Viscous] 2 % solution 15 ml mucous membrane Q8H PRN (Reason: pain) Qty: 100 0RF albuterol sulfate 2.5 mg /3 mL (0.083 %) solution for nebulization 2.5 mg inhalation PRN PRN (Reason: ASTHMA) Label Comments: INHALE 1 VIAL VIA NEBULIZER EVERY 6 HOURS NEEDED FOR SHORTNESS OF BREATH AND WHEEZING lisinopril 5 mg tablet 5 mg PO DAILY Label Comments: TAKE 1 TABLET BY MOUTH ONCE DAILY albuterol sulfate 90 mcg/actuation HFA aerosol inhaler 1 puff INHALATION PRN PRN (Reason: ASTHMA) Label Comments: INHALE TWO(2) PUFFS INTO LUNGS EVERY SIX(6) HOURS NEEDED FOR SHORTNESS OF BREATH AND WHEEZING cyclobenzaprine 10 mg tablet 10 mg PO TID PRN (Reason: muscle spasm) 21 Days Qty: 30 0RF metoprolol tartrate 25 mg Tablet 25 mg PO DAILY hydroxyzine HCl 25 mg Tablet 50 mg PO QHS trazodone 50 mg tablet 100 mg PO QHS Label Comments: TAKE 1 TABLET BY MOUTH EVERY DAY AT BEDTIME NEEDED promethazine 25 mg tablet 25 mg PO Q6H PRN PRN (Reason: Nausea) Label Comments: TAKE (1) TABLET BY MOUTH EVERY 6 HOURS NEEDED FOR NAUSEA/VOMITING hydrocortisone 10 mg tablet 20 mg PO DAILY Label Comments: TAKE TWO (2) TABLETS BY MOUTH EVERY MORNING FOR SYMPTOM RELIEF DIRECTED aripiprazole 10 mg tablet 15 mg PO DAILY Label Comments: TAKE 1 TABLET BY MOUTH EVERY DAY AT BEDTIME pantoprazole 40 mg Tablet,Delayed Release (Dr/Ec) 40 mg PO BID meloxicam [Mobic] 7.5 mg Tablet 7.5 mg PO DAILY fluticasone propionate [Flonase] 50 mcg/actuation [place],Suspension 2 spray INTRANASAL DAILY duloxetine [Cymbalta] 60 mg capsule,delayed release(DR/EC) 60 mg PO DAILY 30 Days Qty: 30 1RF Primary Care Provider: Miguelito Unger Referrals: Miguelito Unger MD [Primary Care Provider] - 1 Week if not improving Disposition Disposition: Home, Self Care
--- NOTE | 2022-03-18 17:58 | EKG12_ITS ---
Test Reason : CP Blood Pressure : / mmHG Vent. Rate : 093 BPM Atrial Rate : 093 BPM P-R Int : 166 ms QRS Dur : 092 ms QT Int : 374 ms P-R-T Axes : 015 035 032 degrees QTc Int : 465 ms Normal sinus rhythm Poor R wave progression Abnormal ECG Confirmed by SEVERO MARCH, HOLLAND ([id number]), editor newspaper KRISTIE CARRERO ([id number]) on 03/20/2022 1:02:06 PM Referred By: EMMA Confirmed By:HOLLAND ELKINS MD
--- NOTE | 2022-03-18 18:13 | RAD_ITS ---
STUDY: X-RAY CHEST REASON FOR EXAM: Female, 26 years old. CHEST PAIN chest pain TECHNIQUE: XR Chest 1 View COMPARISON: 5.30.22 FINDINGS: There is no demonstrated pleural abnormality. Normal size heart. Normal mediastinum and ana cristina. Normal visualized pulmonary arteries. Normal visualized aortic arch and descending thoracic aorta. Normal visualized thoracic spine. Normal visualized ribs, clavicles, and shoulders. There is no demonstrated abnormality of the visualized soft tissue structures of the upper abdomen. RAD/Chest 1 View (Portable) IMPRESSION: There are no acute findings. Electronically Signed: Woody Sterling MD at 18:37 EDT ,
[2022-03-18 18:22] LABS: Absolute Lymphocyte Count 3.41 X10^3/uL (0.83-4.51); Absolute Neutrophil Count 8.4 X10^3/uL (2.0-7.7); Basophil# 0.05 X10^3/uL; Basophil% 0.4 % (0-1); Eosinophil# 0.33 X10^3/uL; Eosinophils% 2.5 % (0-5); Hematocrit 37.3 % (37-47); Hemoglobin 11.9 g/dL (12.0-15.0); Lymphocyte # 3.41 X10^3/ul (0.83-4.51); Lymphocyte % 26.2 % (19-41); Mean Corp Hgb Conc 31.9 g/dL (32-36); Mean Corpuscular Hgb 26.2 pg (27.0-32.0); Mean Corpuscular Volume 82.2 fL (81-99); Mean Platelet Vol. 10.1 fl (6.2-12.0); Monocyte# 0.76 X10^3/uL; Monocyte% 5.8 % (0-10); NRBC Flagged by Analyzer 0 % (0-5); Neutrophil # 8.38 X10^3/uL (2.7-7.7); Neutrophil % 64.5 % (47-70); Platelet Count 331 K/mm3 (150-450); RBC Distribution Width CV 14.2 % (11.6-14.6); RBC Distribution Width SD 41.7 fl (35.1-43.9); Red Blood Count 4.54 M/mm3 (4.2-5.4)
[2022-03-18 18:39] LABS: Anion Gap 9 (5-15); BUN 9 mg/dL (7-18); BUN/Creat Ratio 13.6 RATIO (10-20); Calcium,Total 9.2 mg/dL (8.5-10.1); Chloride 104 mmol/L (98-107); Creatinine, Serum 0.66 mg/dL (0.55-1.02); EST Glomerular Filtration Rate 116 mL/min (>60); Est Glom Filt Rate - Afr Amer 141 mL/min (>60); Estimated Creatinine Clearance 132.59 ml/min; Glucose 289 mg/dL (74-106); Potassium 3.9 mmol/L (3.5-5.1); Sodium Level 138 mmol/L (136-145); Troponin-I HS 4 pg/mL (3.0-54.0)
[2022-03-18 20:06] VITALS: BP 151/83; PULSE 99; O2SAT 96
== END 2022-03-18 20:07 | disposition home or self-care (01) ==
PROVIDERS: Emergency Provider Emergency Medicine; PCP Family Medicine; Visit Provider Emergency Medicine
DX: S29.011A Strain of muscle and tendon of front wall of thorax, initial encounter (principal); E66.9 Obesity, unspecified; X58.XXXA Exposure to other specified factors, initial encounter
CPT/HCPCS: 71045; 80048; 84484; 85025; 93005; 99284; A4216

== ENCOUNTER 2022-08-07 18:15 | Emergency (ER) | payer OTHER, MEDICAID, SELFPAY ==
[2022-08-07 18:16] VITALS: BP 158/110; PULSE 133; RESP 16; TEMP 36.1; O2SAT 99; BMI 62.9
[2022-08-07 20:45] LABS: Absolute Lymphocyte Count 3.53 X10^3/uL (0.83-4.51); Absolute Neutrophil Count 9.3 X10^3/uL (2.0-7.7); Basophil# 0.07 X10^3/uL; Basophil% 0.5 % (0-1); Eosinophil# 0.33 X10^3/uL; Eosinophils% 2.3 % (0-5); Hematocrit 40.8 % (37-47); Hemoglobin 12.9 g/dL (12.0-15.0); Lymphocyte # 3.53 X10^3/ul (0.83-4.51); Lymphocyte % 25.1 % (19-41); Mean Corp Hgb Conc 31.6 g/dL (32-36); Mean Corpuscular Volume 82.1 fL (81-99); Mean Platelet Vol. 9.9 fl (6.2-12.0); Monocyte# 0.73 X10^3/uL; Monocyte% 5.2 % (0-10); NRBC Flagged by Analyzer 0 % (0-5); Neutrophil # 9.34 X10^3/uL (2.7-7.7); Neutrophil % 66.3 % (47-70); Platelet Count 378 K/mm3 (150-450); RBC Distribution Width CV 15.2 % (11.6-14.6); Red Blood Count 4.97 M/mm3 (4.2-5.4); White Blood Count 14.1 K/mm3 (4.4-11.0)
--- NOTE | 2022-08-07 20:53 | EX.ED.VIS.PS ---
HPI HPI - Psych History of Present Illness Chief Complaint: Suicidal Informant: patient Narrative Narrative: Patient feeling more depressed than usual today, causing her to take a double dose of her trazodone as a suicidal gesture, considering taking her life as a result. She usually takes 150 at night, she took 300 tonight. This was about 3.5-4 hours prior to arrival. She feels a little drowsy but otherwise feels okay. She did not take any other pills. She had a handful of them, but she states the girlfriend of hers came in and found her, took the pills were before she could take anything else. Subsequently she states she had an hour long conversation with nurse practitioner Sara Juarez who she knows through her psychiatrist office, and she agreed to come here voluntarily for further psychiatric evaluation. No recent illness, injury otherwise. [facility] Medical History ADHD Anemia Anxiety disorder, unspecified Arthritis Asthma Bipolar 1 disorder Cancer Cancer Cardiology follow-up encounter [place]'s disease Depression Diabetes Diabetes Dietary restriction Gastric reflux GERD (gastroesophageal reflux disease) Herniated disc History of echocardiogram History of irregular heartbeat History of pain when walking History of steroid therapy Hypertriglyceridemia Injury of back Injury of head and neck Kidney stones Non-smoker Obesity Obesity Ovarian cyst PCOS (polycystic ovarian syndrome) Proteinuria due to type 2 diabetes mellitus Walker as ambulation aid Home Medications ferrous sulfate 325 mg (65 mg iron) tablet 1 tab PO DAILY 05/16/19 [History Last Taken 01/24/21 08:00] cholecalciferol (vitamin D3) 125 mcg (5,000 unit) capsule 125 mcg PO DAILY supplement 05/17/19 [History Last Taken 01/24/21 08:00] epinephrine 0.3 mg/0.3 mL injection, auto-injector 0.3 mg (0.3 mL) IM X1 PRN Anaphylaxis ##1 05/14/20 [Rx Last Taken 01/30/21 08:00] Fenofibrate 48 mg PO DAILY 07/23/20 [History Last Taken 01/30/21 08:00] lidocaine HCl 2 % mucosal solution (Lidocaine Viscous) 15 ml mucous membrane Q8H PRN pain #100 mL 10/04/20 [Rx Last Taken 01/30/21 08:00] hydroxyzine HCl 25 mg tablet 50 mg PO QHS 01/10/21 [History Last Taken 01/30/21 08:00] metoprolol tartrate 25 mg tablet 50 mg PO DAILY 01/10/21 [History Last Taken 01/30/21 08:00] albuterol sulfate 2.5 mg/3 mL (0.083 %) solution for nebulization 2.5 mg inhalation PRN PRN ASTHMA 01/25/21 [History Last Taken 01/30/21 08:00] albuterol sulfate 90 mcg/actuation aerosol inhaler 1 puff inhalation PRN PRN ASTHMA 01/25/21 [History Last Taken 01/30/21 08:00] lisinopril 5 mg tablet 5 mg PO DAILY 01/25/21 [History Last Taken 01/30/21 08:00] aripiprazole 10 mg tablet 15 mg PO DAILY 07/16/21 [History Last Taken Unknown] hydrocortisone 10 mg tablet 20 mg PO DAILY 07/16/21 [History Last Taken Unknown] promethazine 25 mg tablet 25 mg PO Q6H PRN PRN Nausea 07/16/21 [History Last Taken Unknown] trazodone 50 mg tablet 150 mg PO QHS 07/16/21 [History Last Taken Unknown] fluticasone propionate 50 mcg/actuation nasal spray,suspension 2 spray intranasal DAILY 07/31/21 [History Last Taken Unknown] pantoprazole 40 mg tablet,delayed release 40 mg PO BID 07/31/21 [History Last Taken Unknown] glimepiride 2 mg tablet 4 mg PO DAILY 01/07/22 [History Last Taken Unknown] atorvastatin 10 mg tablet 10 mg PO QHS 08/07/22 [History Last Taken Unknown] lithium carbonate 150 mg capsule 150 mg PO DAILY 08/07/22 [History Last Taken Unknown] semaglutide 1 mg/dose (4 mg/3 mL) subcutaneous pen injector (Ozempic) 1 mg subcut QWEEK 08/07/22 [History Last Taken Unknown] Allergy/AdvReac Type Severity Reaction Status Date / Time penicillin V potassium Allergy Mild Rash Verified 08/07/22 18:20 [From Pen-Vee K] adhesive tape [plastic tape] Allergy Rash Verified 08/07/22 18:20 brompheniramine maleate Allergy Shortness Verified 08/07/22 18:20 [From Dimetapp of breath (brompheniramine-PPA)] celery Allergy Swelling Verified 08/07/22 18:20 phenylpropanolamine HCl Allergy Shortness Verified 08/07/22 18:20 [From Dimetapp of breath (brompheniramine-PPA)] amoxicillin trihydrate AdvReac Intermediate Diarrhea Verified 08/07/22 18:20 [From Augmentin] potassium clavulanate AdvReac Intermediate Diarrhea Verified 08/07/22 18:20 [From Augmentin] dicyclomine HCl [From Bentyl] AdvReac Nausea/Vom/ Verified 08/07/22 18:20 Diarrhea fructose AdvReac Nausea/Vom/ Verified 08/07/22 18:20 Diarrhea sertraline [From Zoloft] AdvReac Other Verified 08/07/22 18:20 Family History Father Diabetes Mother Hypertension Grandmother Breast cancer 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 H/O endoscopy H/O oophorectomy H/O ovarian cystectomy H/O partial adrenalectomy H/O wisdom tooth extraction History of adrenal surgery History of back surgery History of tonsillectomy and adenoidectomy Hx of cholecystectomy Social History household members: family Smoking Status: Never smoker alcohol intake: current alcohol intake frequency: a few times a month substance use type: does not use seatbelt use: always do you feel safe at home: Yes ROS ROS ED Constitutional Constitutional ED: Reports fatigue; Denies chills or fever(s) Eyes Eyes: Denies change in vision or diplopia ENT ENT ED: Denies rhinorrhea or sore throat Cardiovascular Cardiovascular: Denies chest pain or palpitations Respiratory/Chest Respiratory/Chest: Denies cough or dyspnea Gastrointestinal Gastrointestinal: Denies abdominal pain, diarrhea, nausea or vomiting Genitourinary Genitourinary ED: Denies dysuria or hematuria Musculoskeletal Musculoskeletal: Denies back pain or neck pain Integumentary Denies abscess or rash Neurologic Neurologic: Denies headache(s), paresthesias or weakness Psychiatric Psychiatric: Reports depression, suicidal ideation and suicidal thoughts; Denies homicidal ideation EXAM Physical Exam Const Vital Signs: 08/07/22 18:16 Temperature 97 F L Temperature Source Temporal Pulse Rate 133 H Respiratory Rate 16 Blood Pressure 158/110 H Blood Pressure Mean 126 Pulse Ox 99 Oxygen Delivery Method Room Air Positive well nourished and well developed General Appearance ED: well developed and NAD HEENT Reports moist mucous membranes normocephalic and atraumatic Eyes PERRL and EOMs intact bilaterally General Eye ED: Negative for scleral icterus Neck no lymphadenopathy and supple Resp normal respiratory effort and clear to auscultation bilaterally Cardio no murmurs Rate: regular rate Rhythm: regular rhythm GI non-tender and non-distended Auscultation: normoactive bowel sounds Palpation: soft Back/Spine no CVA tenderness and normal ROM Extremity normal to inspection General Extremety ED: Negative for edema General Extremity: Negative for edema Neuro oriented x3, CN's II-XII intact bilaterally, no sensory deficits noted and gait normal Sensorium / Orientation: alert Motor Exam: strength 5/5 throughout Psych mental status grossly normal, thought process normal, cooperative, activity/motor behavior normal and denies homicidal ideation Mood & Affect: depressed Thought Content: suicidality Skin Lesions: no lesions Rashes: no rashes MDM MDM MDM Narrative Medical decision making narrative: Exam unremarkable, although somewhat limited by morbid obesity. This patient took a therapeutic dose of trazodone, as the maximum daily dose is recommended to be 400 mg or less. She does not have any toxidrome or other toxic symptoms, findings, or abnormal vital signs. Therefore she does not require any further extended observation or treatment/diagnostics in order to be medically cleared from this ingestion. Labs noted, pt is medically cleared. Crisis evaluated and agrees that she needs transferred to psychiatric facility. Lab Data Attestation: I reviewed the patient's lab results. Labs: Laboratory Results - last 24 hr 08/07/22 08/07/22 08/07/22 20:36 20:36 20:36 WBC 14.1 H RBC 4.97 Hgb 12.9 Hct 40.8 MCV 82.1 MCH 26.0 L MCHC 31.6 L RDW Std Deviation 45.0 H RDW Coeff of Silvia 15.2 H Plt Count 378 MPV 9.9 Immature Gran % (Auto) 0.600 Neut % (Auto) 66.3 Lymph % (Auto) 25.1 Gove % (Auto) 5.2 Eos % (Auto) 2.3 Baso % (Auto) 0.5 Absolute Neuts (auto) 9.3 H Absolute Lymphs (auto) 3.53 Nucleated RBC % 0 Sodium 138 Potassium 4.1 Chloride 106 Carbon Dioxide 24.0 Anion Gap 8 BUN 12 Creatinine 0.62 Estim Creat Clear Calc 139.92 Est GFR (MDRD) Af Amer 151 Est GFR (MDRD) Non-Af 125 BUN/Creatinine Ratio 19.4 Glucose 209 H Calcium 9.6 Serum , Qual NEGATIVE Ethyl Alcohol 08/07/22 20:36 WBC RBC Hgb Hct MCV MCH MCHC RDW Std Deviation RDW Coeff of Silvia Plt Count MPV Immature Gran % (Auto) Neut % (Auto) Lymph % (Auto) Gove % (Auto) Eos % (Auto) Baso % (Auto) Absolute Neuts (auto) Absolute Lymphs (auto) Nucleated RBC % Sodium Potassium Chloride Carbon Dioxide Anion Gap BUN Creatinine Estim Creat Clear Calc Est GFR (MDRD) Af Amer Est GFR (MDRD) Non-Af BUN/Creatinine Ratio Glucose Calcium Serum , Qual Ethyl Alcohol 4.0 Discharge Plan Triage Chief Complaint: Suicidal ED Provider: Wilman Chavarria Dx/Rx/DC Orders Clinical Impression: Suicidal ideation, Suicide gesture Prescriptions: No Action glimepiride 2 mg tablet 4 mg PO DAILY Label Comments: TAKE 1 TABLET BY MOUTH ONCE DAILY WITH BREAKFAST ferrous sulfate 325 MG tablet 1 tab PO DAILY Label Comments: TAKE 1 TABLET BY MOUTH ONCE DAILY WITH BREAKFAST cholecalciferol (vitamin D3) 125 MCG capsule 125 mcg PO DAILY epinephrine 0.3 MG syringe 0.3 mg IM X1 PRN (Reason: Anaphylaxis) Qty: 1 0RF Fenofibrate 48 mg PO DAILY lidocaine HCl [Lidocaine Viscous] 2 % solution 15 ml mucous membrane Q8H PRN (Reason: pain) Qty: 100 0RF albuterol sulfate 2.5 mg /3 mL (0.083 %) solution for nebulization 2.5 mg inhalation PRN PRN (Reason: ASTHMA) Label Comments: INHALE 1 VIAL VIA NEBULIZER EVERY 6 HOURS NEEDED FOR SHORTNESS OF BREATH AND WHEEZING lisinopril 5 mg tablet 5 mg PO DAILY Label Comments: TAKE 1 TABLET BY MOUTH ONCE DAILY albuterol sulfate 90 mcg/actuation HFA aerosol inhaler 1 puff INHALATION PRN PRN (Reason: ASTHMA) Label Comments: INHALE TWO(2) PUFFS INTO LUNGS EVERY SIX(6) HOURS NEEDED FOR SHORTNESS OF BREATH AND WHEEZING metoprolol tartrate 25 mg Tablet 50 mg PO DAILY hydroxyzine HCl 25 mg Tablet 50 mg PO QHS trazodone 50 mg tablet 150 mg PO QHS Label Comments: TAKE 1 TABLET BY MOUTH EVERY DAY AT BEDTIME NEEDED promethazine 25 mg tablet 25 mg PO Q6H PRN PRN (Reason: Nausea) Label Comments: TAKE (1) TABLET BY MOUTH EVERY 6 HOURS NEEDED FOR NAUSEA/VOMITING hydrocortisone 10 mg tablet 20 mg PO DAILY Label Comments: TAKE TWO (2) TABLETS BY MOUTH EVERY MORNING FOR SYMPTOM RELIEF DIRECTED aripiprazole 10 mg tablet 15 mg PO DAILY Label Comments: TAKE 1 TABLET BY MOUTH EVERY DAY AT BEDTIME pantoprazole 40 mg Tablet,Delayed Release (Dr/Ec) 40 mg PO BID fluticasone propionate [Flonase] 50 mcg/actuation [place],Suspension 2 spray INTRANASAL DAILY atorvastatin 10 mg tablet 10 mg PO QHS Label Comments: TAKE 1 TABLET BY MOUTH ONCE DAILY AT BEDTIME FOR CHOLESTEROL lithium carbonate 150 mg capsule 150 mg PO DAILY Ozempic 1 mg/dose (4 mg/3 mL) pen injector 1 mg SUBCUT QWEEK Primary Care Provider: Miguelito Unger Referrals: Miguelito Unger MD [Primary Care Provider] - Disposition Disposition: Psychiatric Hospital or Unit
[2022-08-07 21:07] LABS: Internal QC Validated? YES +Cl - CLEAR BKGD; Pregnancy, Serum, hCG Quali. NEGATIVE Negative
[2022-08-07 21:13] LABS: Anion Gap 8 (5-15); BUN 12 mg/dL (7-18); BUN/Creat Ratio 19.4 RATIO (10-20); Calcium,Total 9.6 mg/dL (8.5-10.1); Chloride 106 mmol/L (98-107); Creatinine, Serum 0.62 mg/dL (0.55-1.02); EST Glomerular Filtration Rate 125 mL/min (>60); Est Glom Filt Rate - Afr Amer 151 mL/min (>60); Estimated Creatinine Clearance 139.92 ml/min; Glucose 209 mg/dL (74-106); Potassium 4.1 mmol/L (3.5-5.1); Sodium Level 138 mmol/L (136-145)
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
--- NOTE | 2022-08-07 21:54 | CM.ED ---
Addendum entered by Minnie Hilario 08/07/22 22:27: LEONARDO updated patient and patient's mother regarding referrals. Patient's mother also requests referrals not be sent to [facility]. LEONARDO updated RN, MD and pocketed spring assembler regarding referrals. SW updated [facility] in case patient is declined from facilities. LEONARDO faxed clinical documents to [facility]. Plan: pending acceptance to [facility] or [facility]. MAURY Brar Original Note: LEONARDO Note SW sent referrals to [facility] and [facility] as both facilities have beds available. LEONARDO provided admissions staff with contact for ED staff if accepting/declining after 10:30pm. Plan: pending referrals to [facility] and [facility] MAURY Brar
[2022-08-07 23:00] VITALS: RESP 14
[2022-08-08] VITALS: RESP 16
[2022-08-08 01:00] VITALS: BP 134/76; PULSE 88; RESP 16; TEMP 36.1; O2SAT 99
[2022-08-08] MEDS: Lithium Carbonate 150 MG Capsule PO (01:19)
[2022-08-08] MEDS: Ferrous Sulfate 325 MG Tablet PO (01:19)
[2022-08-08] MEDS: Cholecalciferol (Vit D3) 125 MCG CAPSULE (5,000 UNITS) PO (01:19)
[2022-08-08] MEDS: Atorvastatin Calcium 10 MG Tablet PO (01:19)
[2022-08-08] MEDS: Fenofibrate 48 MG Tablet PO (01:20)
[2022-08-08] MEDS: Lisinopril 5 MG Tablet PO (01:20)
[2022-08-08] MEDS: ARIPiprazole 5 MG Tablet 15 MG PO (01:20)
[2022-08-08] MEDS: Glimepiride 4 MG Tablet PO (01:20)
[2022-08-08] MEDS: Metoprolol Tartrate 50 MG Tablet PO (01:24)
[2022-08-08] MEDS: hydrOXYzine PAM 25 MG Capsule 50 MG PO (01:24)
[2022-08-08] MEDS: Pantoprazole Sodium 40 MG Tablet PO (01:24)
[2022-08-08 02:00] VITALS: RESP 14
[2022-08-08 02:08] LABS: Amphetamine Urine VISTA NEGATIVE (<1000 ng/mL); Barbiturate Urine VISTA NEGATIVE (< 200 ng/mL); Benzodiazepine Urine VISTA NEGATIVE (< 200 ng/mL); Cocaine Urine VISTA NEGATIVE (< 300 ng/mL); Ecstacy Urine VISTA POSITIVE (< 500 ng/mL); Methadone Urine VISTA NEGATIVE (< 300 ng/mL); PCP Urine VISTA NEGATIVE (< 25 ng/mL); THC Urine VISTA NEGATIVE (< 50 ng/mL); Vista UDS pH Range 4
== END 2022-08-08 03:55 ==
PROVIDERS: Emergency Provider Emergency Medicine; PCP Family Medicine; Visit Provider Emergency Medicine
DX: R45.851 Suicidal ideations (principal); E11.9 Type 2 diabetes mellitus without complications; K21.9 Gastro-esophageal reflux disease without esophagitis; J45.909 Unspecified asthma, uncomplicated; Z79.84 Long term (current) use of oral hypoglycemic drugs; Z79.899 Other long term (current) drug therapy
CPT/HCPCS: 36415; 80048; 80307; 82077; 84703; 85025; 87811; 99284

== ENCOUNTER 2022-08-15 08:00 | Outpatient (RCR) | payer OTHER, MEDICAID, SELFPAY ==
--- NOTE | 2022-08-15 09:00 | BH.SGPN.GN ---
Behaviors/Verbalizations/Mental Status: []Pt alert and oriented, casually dressed and groomed. Eye contact good. Motor activity appropriate. Speech within normal limits. Affect constricted, mood depressed. Thoughts linear, logical, no signs of hallucinations or delusions. Reviewed pt?s symptom tracker, no risk for suicidal ideation, plan, or intent as of 08/15/22 Client Response/Progress/Benefit: []Pt responded well to session, quiet, but attentive and receptive to group encouragement. Pt's first day of IOP tx and pt appeared anxious. Pt has previously completed IOP tx in the past. Pt declined to shared during her check-in this morning, but pt did engage with peers during the ice breaker question. Pt appeared to benefit from connecting with peers. Pt will continue IOP tx to prevent decompensation and rehospitalization. Narrative Note: []
--- NOTE | 2022-08-15 10:10 | BH.SGPN.GN ---
Behaviors/Verbalizations/Mental Status: [] Eye contact is good. Motor activity is appropriate. Appearance is casual. Speech is Appropriate. Mood is depressed. Affect is flat. Thoughts are linear and logical. No evidence of psychosis. Client Response/Progress/Benefit: [] Pt was an active participant in group discussions. Attentive during psychoeducation. Participated during interactive discussions in which peers attempted to define crisis. Group also worked together to identify unhealthy responses to crisis which included; isolation, self-harm, over-sleeping, impulsive activities, over-sharing, and lashing out. Pt identified her top 3 warning signs that she is in crisis which were 1. Self-Harm 2.Suicidal thoughts 3. isolation. Benefited from increased understanding of crisis and awareness of personal warning signs to crisis. Will continue in IOP to maintain safety, prevent decompensation, and increase healthy coping skills. Narrative Note: []
--- NOTE | 2022-08-15 11:10 | BH.SGPN.GN ---
Behaviors/Verbalizations/Mental Status: []Pt alert and oriented, casually dressed and appropriately groomed. Eye contact good. Motor activity appropriate. Speech within normal limits. Affect congruent, mood anxious and depressed. Thoughts linear, logical, no signs of hallucinations or delusions. Client Response/Progress/Benefit: []Pt responded well to session as evidenced by listening attentively to others and providing strategies during discussion.? Pt identified personal warning signs for crisis and gained further awareness of earliest warning signs. Pt created a crisis action plan to help better manage warning signs for crisis. Pt able to create action plan for warning sign of increased self-harming urges. Pt's action plan included: reminding herself to take things one day at a time, schedule a therapy appointment, call the crisis hotline, and healthy distractions. Pt appeared to benefit from creating a crisis action plan and increasing self-awareness. Pt continue IOP tx to continue to improve mood stability, increase healthy coping, and prevent decompensation. Narrative Note: []
--- NOTE | 2022-08-15 14:03 | BH.MTP ---
Master Treatment Plan - Patient Information Program Physician:: Dr. Lluvia Rodriguez Primary Therapist:: MAURY Mckeon - Psychiatric Diagnoses Psychiatric Diagnoses:: Bipolar 1 disorder, most recent episode depressed, severe without psychosis (F31.4). 2. Cluster B traits. 3. Anxiety disorder, NOS. 4. History of ADHD, inattentive type. 5. Alcohol use disorder Diagnosis Code(s):: F31.4 - Estimated LOS Estimated LOS (in weeks):: 6 Problem/Goal #1 - Problem/Goal #1 Stated Goal:: Pt will increase mood stability by reducing hopelessness, worthlessness, paranoia, and anhedonia. Description of Barriers: Client verbalizing a lot of displaced guilt and fear of being a burden. She struggles with independent skill application, low motivation, limited self-accountability, and reports hx of treatment ineffectiveness. Client has a hx of impulsivity and poor emotion regulation. Functional Impact: The patient is a 27-year-old single, female with a history of bipolar disorder depression who was referred to the [facility] behavioral health IOP program after [place] [facility] after a suicide attempt on trazodone. At that time the patient took 300 mg of trazodone as a suicide attempt. The patient also had been abusing alcohol by drinking 4 to 5 days a week and using 4-5 drinks a day when she does drink. Pt previously completed this IOP program and aftercare tx in July 2021. Reports her depression has recently been steadily worsening for the past 2-3 months, resulting in pt being on medical leave since the end of July 2022. Pt currently endorses having trouble doing her activities of daily living and has only been bathing about once every other week, lack of motivation and anhedonia, sadness, hopelessness, worthlessness, passive thoughts of and recent passive suicidal ideation without a plan. She denies suicidal ideation currently and denies plan for suicide. She has no access to lethal means or weapons or sharp objects though has a chronic hx of self-harming. Last self-harmed about 2 -3 weeks ago. She also endorses decreased concentration and low energy. Primary stressors include her cousin?s recent , her mother returning to work, and her relationship with her father. Pt current sx are impacting ability to function at baseline, as well as social and occupational functioning. - Objectives Objective #1 Stated Objective: Pt will learn and utilize 2-3 healthy coping strategies to better manage depressive symptoms and reduce thoughts of as shown by a decrease of DMS-5 symptoms for depression. Interventions: Through group and individual sessions, therapist will help pt identify triggers and warning signs of depression and guilt including emotional, physical, and behavioral changes. Therapist will teach pt various coping skills to manage symptoms and give pt tangible resources to use to regulate emotions. Therapist will use cognitive restructuring techniques and help pt gain awareness of negative thoughts that reinforce guilt and depression. Therapist will provide psychoeducation on maintenance cycles and help pt learn ways to break unhealthy maintenance cycles. Therapist will help pt incorporate behavioral activation and assist pt in setting SMART goals. Discharge Criteria: Pt will have met this goal when can report learning and using at least 2 coping skills to manage depressive symptoms and reduce isolation. Additionally, pt will have met this goal when pt's DSM-5 scores for depression decrease. Target Date: 09/26/22 Review Date: 09/10/22 Objective #2 Stated Objective: Pt will identify at least 2-3 negative self-talk messages used to reinforce negative core beliefs, worthlessness, and isolation and replace thoughts with balanced, realistic messages. Interventions: Therapist will help pt identify distorted, negative beliefs about self and replace with more realistic, affirmative messages. Therapist will use CBT and DBT to help pt increase insight to the connection between thoughts, emotions, and behaviors. Therapist will encourage pt to practice thought challenging. Discharge Criteria: Pt will have achieved this goal when can verbalize at least 2 cognitive distortions and effectively replace those thoughts with affirmative messages. Target Date: 09/26/22 Review Date: 09/10/22 Problem/Goal #2 - Problem/Goal #2 Stated Goal:: Will reduce anxiety through increasing emotional regulation and distress tolerance skills Description of Barriers: Client verbalizing a lot of displaced guilt and fear of being a burden. She struggles with independent skill application, low motivation, limited self-accountability, and reports hx of treatment ineffectiveness. Client has a hx of impulsivity and poor emotion regulation. Functional Impact: The patient is a 27-year-old single, female with a history of bipolar disorder depression who was referred to the [facility] behavioral health IOP program after being [place] [facility] after a suicide attempt on trazodone. At that time the patient took 300 mg of trazodone as a suicide attempt. The patient also had been abusing alcohol by drinking 4 to 5 days a week and using 4-5 drinks a day when she does drink. Pt previously completed this IOP program and aftercare tx in July 2021. Reports her depression has recently been steadily worsening for the past 2-3 months, resulting in pt being on medical leave since the end of July 2022. Pt currently endorses having trouble doing her activities of daily living and has only been bathing about once every other week, lack of motivation and anhedonia, sadness, hopelessness, worthlessness, passive thoughts of and recent passive suicidal ideation without a plan. She denies suicidal ideation currently and denies plan for suicide. She has no access to lethal means or weapons or sharp objects though has a chronic hx of self-harming. Last self-harmed about 2 -3 weeks ago. She also endorses decreased concentration and low energy. Primary stressors include her cousin?s recent , her mother returning to work, and her relationship with her father. Pt current sx are impacting ability to function at baseline, as well as social and occupational functioning. - Objectives Objective #1 Stated Objective: Pt will identify 2-3 anxiety triggers and 2 coping skills to use when feeling anxious to manage anxiety as shown by reducing DSM-5 scores for anxiety Interventions: Therapist will provide education on anxiety, avoidance behaviors, and maintenance cycles. Therapist will help pt explore personal symptoms and warning signs of anxiety. Therapist will teach pt coping skills to improve emotional regulation, mindfulness, and distress tolerance to help pt cope with anxiety in the moment. Discharge Criteria: Pt will have accomplished this goal when he can identify at least 2 triggers and report using 2 coping skills to manage anxiety. Additionally, pt will have accomplished this goal AEB reduction of DSM-5 scores for anxiety. Target Date: 09/26/22 Review Date: 09/10/22 Objective #2 Stated Objective: Pt will increase ability to manage stressors and anxiety by gaining 2-3 distress tolerance skills. Interventions: Through group and individual therapy, pt will learn various coping skills to help manage stress and anxiety. Therapist will utilize DBT distress tolerance skills to increase awareness and give pt tools to more effectively manage anxiety. Therapist will provide psychoeducation on emotional regulation and help pt identify unhealthy coping skills she wants to change. Discharge Criteria: Pt will have accomplished this goal when can report improved ability to manage stressors and identify at least 2 distress tolerance skill Target Date: 09/26/22 Review Date: 09/10/22
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
--- NOTE | 2022-08-18 09:05 | BH.SGPN.GN ---
Behaviors/Verbalizations/Mental Status: []Eye contact fair to good, casually dressed, motor activity appropriate, speech normal rate and tone, mood depressed and anxious, congruent affect, thoughts linear and intact, no evidence of delusions or hallucinations. Reviewed pt's symptom tracker, pt suicidal ideation reported within baseline, denies plan, or intent as of this date. Future oriented. Client Response/Progress/Benefit: []Pt responded well to session, attentive and willing to process with group. Pt did well to identify wins, which included only consuming one alcoholic drink when hanging out with friends rather than several. Shared reminding herself that ?alcohol is a natural depressant? aided in not consuming further. Additional win identified as accomplishing a necessary task, noting she went to the laundry mat and did her laundry over the weekend. Went on to identify current stressor as going to the salon to get her hair done tomorrow and feeling anxious that she will feel over stimulated and struggle to manage her anxiety. Receptive of supportive feedback and suggestions. Progress limited as it is pt 2nd day in tx. Recommended continued IOP tx to continue to improve use of healthy emotion regulation skills, promote mood stability, as well as prevent decompensation. Narrative Note: []
--- NOTE | 2022-08-18 10:10 | BH.SGPN.GN ---
Behaviors/Verbalizations/Mental Status: [] Eye contact is good. Motor activity is appropriate. Appearance is casual. Speech is Appropriate. Mood is depressed. Affect is congruent. Thoughts are linear and logical. No evidence of psychosis. Client Response/Progress/Benefit: [] Pt participated when prompted. Attentive during psychoeducation. Did not participate in experiential activity. Attentive during interactive discussion among peers on how emotions can negatively impact how we communicate. Attentive as peers identified that intense emotions can impact one's ability to focus, cause one to shut down, lead to word vomit, cause cognitive distortions (Catastrophizing, Minimizing, mind-reading), and can impact one's ability to comprehend. Attentive during group discussion on the importance of communicating one's emotions to others which can prevent blow-ups, help one get their needs met, help others better understand our emotions/concerns/stressors, can build trust with others, and can help us advocate for ourselves. Benefited from increased awareness of how emotions can impact communication. Will continue in PHP to maintain safety and prevent decompensation/re-admission to psych unit. Narrative Note: []
--- NOTE | 2022-08-18 11:15 | BH.SGPN.GN ---
Behaviors/Verbalizations/Mental Status: []Pt alert and oriented, casually dressed and groomed. Eye contact good. Motor activity appropriate. Speech within normal limits. Affect congruent, mood dysthymic. Thoughts linear, logical, no signs of hallucinations or delusions. Client Response/Progress/Benefit: []Pt engaged in session AEB pt listening attentively to peers and providing input. Attentive during psychoeducation on 4 zones of regulation. Pt able to identify feelings and behaviors for each zone.? Pt identified coping skills one can use to support self in each zone. Pt stated belief that pt is in the blue zone today and pt feels like she has not left this zone ?for months.? Pt reports going to her psychiatry appointment and not napping will help pt get out of the blue zone today. Benefited from increased education on zones of regulation or stages of alertness for emotions and healthy coping skills to use for each zone. Pt will continue IOP tx to prevent decompensation, increase application of healthy coping skills, and improve overall functioning. Narrative Note: []
--- NOTE | 2022-08-18 14:04 | BH.MDN_ITS ---
Multi-Disciplinary Note - Note 30-min Individual Time Started:: 12:08 Date: 08/18/22 Purpose of session/treatment goals addressed:: The purpose of this session was to address current stressors, symptoms, and barriers impeding consistent application of coping skills. Another goal was to review strategies for breaking current depression/mood instability maintenance cycle. Eye Contact:: Good Motor Activity:: Appropriate Appearance:: Casual Speech:: Appropriate Mood:: Depressed Affect:: Congruent Thoughts:: Linear, Logical, No evidence of hallucinations/delusions noted Staff Interventions:: motivational interviewing, psychoeducation on: - depression maintainance cycles, maladaptive coping, CBT techniques, strengths perspective, goal setting, taught coping skills - reviewed behavior activation skill of opposite action Client Response:: Client responded well to session, open to meeting with therapist. Client stated she had an alright weekend but continues to struggle with feeling ?low?, sad, and numb. Indicates that although she spent time with friends on Thursday, Thursday, and Thursday, she did not feel engaged in the interactions. Shared drinking alcohol each time she was with her friends throughout the weekend, noting that her overall alcohol consumption has increased in the past month. Denies drinking alone; however, indicates she is not drinking to be social but rather to ?stop the self-harming and suicidal th oughts?. Noted current SI and self-harming thought occur daily and are intrusive in nature and without identifiable triggers. Denies plan or intent to act on these thoughts but is feeling increasingly distressed by them. Client shared that when she is not drinking, she wood with the thoughts by either sleeping or in the past has resorted to self-harming. Receptive of psychoeducation on maladaptive coping behaviors and how they are formed, as well as the role of maladaptive coping in maintaining depression and anxiety. Identified client?s own depression maintenance cycle and impacts of these maladaptive coping behaviors in maintaining current sx and reinforcing SI. Reviewed how implementing behavior activation skills can aid in breaking maladaptive coping behaviors. Remainder of session focused on identifying more adaptive means of coping with suicidal ideation and self-harming urges as they occur. Pt reports not finding much enjoyment in any activities she had previously been engaged with. Did however identify still finding some pleasure in completing word searches. Receptive of printing off several word searches with positive affirmations or inspirational words she can complete when experiencing increased SI. Able to identify this may help her with refocusing her thoughts on something more positive. Pt additionally reports willingness to work on reducing alcohol consumption to no more than 3x a week, as pt resistant to stopping use all together. Risks/Concerns:: Client denies any active suicidal ideations, plan, or intent as of 08/18/22. Reports increased intrusive thoughts of but denies urges or intent to act on these thoughts. Last thoughts occurred on Thursday. Pt future oriented and denies access to lethal means. Reports ability to maintain safety and is aware of crisis resources in unable to do so. Progress Toward Goals/Plan:: Client 2nd day in IOP tx, therefore little progress noted. Reports continuing to struggle with self-care/personal hygiene, intrusive thoughts of , low motivation, and feeling disconnected from others. Self- reports engaging in consuming alcohol over the weekend despite knowing ?alcohol is a natural depressant?. Indicates doing so to numb herself from her negative thoughts patters. Insight that this will only reinforce them long-term and receptive of setting small behavior activation goals to improve healthy coping. Reports goals of showering once this week as well. Pt will continue IOp tx to improve mood stability and consistent skill application, reduce thoughts of , as well as further improve daily functioning. Time Stopped:: 12:40
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
[2022-08-20 10:08] VITALS: BP 153/83; PULSE 94
--- NOTE | 2022-08-20 10:10 | BH.SGPN.GN ---
Behaviors/Verbalizations/Mental Status: [] Eye contact is good. Motor activity is appropriate. Appearance is casual. Speech is Appropriate. Mood is depressed. Affect is congruent. Thoughts are linear and logical. No evidence of psychosis. Client Response/Progress/Benefit: [] Pt participated at times during group discussions. Attentive during psychoeducation. Participated along with peers on working to define locus of control and provide examples of internal and external locus of control. Active and engaged during experiential activity and was able to see correlations between activity and emotions/perspectives associated with internal vs external locus of control. Pt shared that she is unsure of her locus of control is more external or interna I view myselfas responsible for alot of situations but I also feel helpless when it comes to making changes. Benefited from increased insight and awareness of internal vs external locus of control and how this could impact mental health. Will continue in IOP to maintain safety, prevent decompensation/re-admission to psych unit, and to increase healthy coping. Narrative Note: []
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
--- NOTE | 2022-08-20 12:11 | BH.DR.ITP ---
Initial Treatment Plan Patient Information Visit Information: ADMISSION DATE: EXPECTED LOS: 4-6 weeks Problems/Symptoms Problem #1:: Mood instability Symptom:: Sadness, hopelessness, worthlessness, anhedonia, lack of motivation, decreased concentration, passive thoughts of , passive suicidal ideation, thoughts of self-harm, low energy Problem #2:: Anxiety Symptom:: Worry, rumination
--- NOTE | 2022-08-22 09:05 | BH.SGPN.GN ---
Behaviors/Verbalizations/Mental Status: []Pt alert and oriented, disheveled appearance. Eye contact good. Motor activity appropriate. Speech within normal limits. Affect incongruent-smiling while talking about grief, mood depressed. Thoughts linear, logical, no signs of hallucinations or delusions. Reviewed pt?s symptom tracker, no risk for suicidal ideation, plan, or intent as of 08/22/22 Client Response/Progress/Benefit: []Pt responded well to session, attentive and receptive to ideas. Pt reports she is grieving today as earlier this week pt found out that someone in her family was killed. Pt shared she was in disbelief at first, but now pt has accepted this happened. Pt shared she has been to grief counseling before and found it helpful. Pt identified going out with friends last night and not drinking as much as she used to as a win. Pt was encouraged to utilize self-care practices today to break up pt's urge to isolate and sleep. Pt appeared to benefit from group brainstorming healthy coping skills. Pt will continue IOP tx to prevent decompensation, reduce self-harm urges, and improve distress tolerance skills. Narrative Note: []
--- NOTE | 2022-08-22 10:13 | BH.SGPN.GN ---
Behaviors/Verbalizations/Mental Status: []Eye contact is good. Motor activity is appropriate. Appearance is casual. Speech is Appropriate. Mood is dysthymic anxious. Affect is congruent. Thoughts are linear and logical. No evidence of psychosis. Client Response/Progress/Benefit: []Pt was an active participant in group discussions and activities. Attentive during psychoeducation. Pt engaged during interactive discussion in which the group defined self-care and discussed its benefits. ?Worked with group to identify myths related to self-care which included; self-care is selfish, don?t feel they deserve self-care/must be earned, self-care means a person is weak, and self-care takes up too much time. Pt participated in small groups where they worked to bust these self-care myths. Benefited from increased awareness of self-care, its benefits, and the consequences of not utilizing self-care strategies. Pt made a lot of connections in group sharing ?self-care is hard for me because I don?t feel like I deserve it, even though I know this is a thought distortion.? Will continue in IOP to prevent decompensation, increase healthy coping, and improve functioning.? Narrative Note: []
--- NOTE | 2022-08-22 11:10 | BH.SGPN.GN ---
Behaviors/Verbalizations/Mental Status: []Pt alert and oriented, casually dressed and groomed. Eye contact good. Motor activity appropriate. Speech within normal limits. Affect constricted, mood depressed. Thoughts linear, logical, no signs of hallucinations or delusions. Client Response/Progress/Benefit: []Pt engaged participant AEB completing self-assessment worksheet and providing input throughout discussion. Participated in group discussion on the various areas of self-care. Pt completed worksheet identifying current self-care practices and what self-care activities pt wants to start using. Pt selected emotional self-care to begin practicing more consistently. Pt plans to do this by pursuing new interests, setting boundaries, and getting back into painting. Appeared to benefit from completing the self-care evaluation and gaining insights into current self-care practices, as well as identifying areas in which pt ?would like to improve upon.?Will continue IOP tx to improve daily functioning, increase healthy coping, and prevent decompensation.
--- NOTE | 2022-08-27 09:03 | BH.SGPN.GN ---
Behaviors/Verbalizations/Mental Status: []Eye contact fair, casually dressed, motor activity appropriate, speech normal rate and tone, mood euthymic, congruent affect, thoughts linear and intact, no evidence of delusions or hallucinations. Reviewed pt's symptom tracker, suicidal ideation within baseline, pt denies plan, or intent as of this date. Future oriented. Client Response/Progress/Benefit: []Pt responded well to session, attentive and willing to process with group. Pt reported mental health positive as accomplishing her goals set in individual session for the week. Client reported she used opposite action yesterday to help her get her dishes done. Pt stated current stressor is having to go to services for her uncle this week. Shared feeling emotional exhausted with everything going on. Appeared to benefit from group?discussion and supportive environment. Recommended continued IOP tx to continue to improve healthy skills, promote anxiety management, as well as prevent decompensation.
--- NOTE | 2022-08-27 10:10 | BH.SGPN.GN ---
Behaviors/Verbalizations/Mental Status: []Eye contact is good. Motor activity is appropriate. Appearance is casual. Speech is Appropriate. Mood is anxious and depressed. Affect is congruent. Thoughts are linear and logical. No evidence of psychosis. Client Response/Progress/Benefit: []Pt was an active participant in group discussions and experiential activity. Attentive during psychoeducation on resilience. Participated in interactive discussion with peers on the definition of resilience and where it comes from. Shared to her is ?the ability to bounce back?. Group identified that resiliency can be impacted by; past experiences, learned behaviors, and mental health state. Group also worked together to identify the benefits of being resilient and how it is related to mental health. Able to relate experiential activity of group juggle to topics of resilience. Worked well with peers in small group in which they identified factors that contribute to resilience. Benefited from increased awareness of resilience and the factors that contribute to building resilience. Will continue in IOP to prevent decompensation, increase healthy coping and ability to complete daily responsibilities, as well as prevent decompensation. Narrative Note: []
--- NOTE | 2022-08-27 11:10 | BH.SGPN.GN ---
Behaviors/Verbalizations/Mental Status: []Pt alert and oriented, disheveled appearance. Eye contact good. Motor activity appropriate. Speech within normal limits. Affect congruent, mood depressed. Thoughts linear, logical, no signs of hallucinations or delusions Client Response/Progress/Benefit: []Pt responded well to session AEB completing the resilience worksheet provided. Reports belief they already use resilience traits of??self-awareness and making connections.? Pt shared these traits will help pt overcome current stressors. Pt stated they would like to continue to develop resilience trait of ?taking care of yourself.? which pt wants to do this by working on the daily check-in chart she and her therapist created. Pt seemed to benefit from discussing strategies for improving personal resilience and identifying resilience traits pt already possesses. Progress limited as pt continues to struggle with daily self-care and isolation. Will continue IOP tx to prevent further decompensation, improve daily functioning, and improve motivation. ? Narrative Note: []
--- NOTE | 2022-08-27 11:30 | BH.MDN ---
Multi-Disciplinary Note - Note 45-min Individual Time Started:: 08:27 Date: 08/27/22 Purpose of session/treatment goals addressed:: To work on goal #1 of pt's tx plan and identify strategies for improving motivation and willingness to engage in healthy self-care and coping activities. Eye Contact:: Good Motor Activity:: Appropriate Appearance:: Disheveled - reports not showering in the past 9 days, Casual Speech:: Soft Mood:: Depressed Affect:: Congruent Thoughts:: Linear, Logical, No evidence of hallucinations/delusions noted Staff Interventions:: thought challenging, motivational interviewing, strengths perspective, goal setting, other - reviewed maintenance cycles and behavior activation. Created a weekly schedule Client Response:: Pt responded well to session, open to meeting with therapist. Pt reports feeling more depressed, noting ?I went down a rabbit hole and can?t get out? over the past week. Pt reports this may be related to the recent of her uncle and shared she is not doing much of anything throughout the day. Pt stated she has been primarily staying in bed and is continuing to struggle to complete her ADLs. Pt and therapist processed pt's use of sleep to cope, and pt was able to identify this as a maladaptive coping strategy. Recognizes that her current behaviors continue to limit motivation and reinforce negative self-talk. Reviewed maintenance cycles and how to break these cycles. Shared she has several responsibilities she would like to complete each day but is not due to staying in bed for much of the day. Shared she needs a more concrete reminder of what specifically she should do and when, as she is more likely to follow-through if it is written down. Worked with therapist to identify 2 responsibilities she needs to take care of in the next week and 2 activities she enjoys she would like to do. Pt completed an activity habitat conservation planner with specific times and days to complete these activities throughout the next week and plans to highlight each task as she does so to aid in holding herself accountable. Shared wanting to shower 2x this week, clean her room for 15 minutes 3x, journal once, and paint once. Identified that these activities would aid in getting her out of her bed/bedroom and help to promote a feeling of accomplishment. Risks/Concerns:: Pt denies any suicidal ideations, plan, or intent as of 08/27/22. Progress Toward Goals/Plan:: Pt is making limited progress as she self-reports ongoing isolation, not engaging in activities she enjoys, not completing personal hygiene self-care, and limited use of healthy coping skills. Pt continues to struggle with managing anxiety and depression. Pt reports ongoing lack of motivation, increased sleep, lack of interest, and feeling disconnected from relationships. Pt self-reports that she has not been using coping skills discussed for the last week due to increase grief related stress and illness. Pt will continue IOP tx to promote use of healthy coping skills, improve functioning, and increase motivation. Time Stopped:: 09:15
--- NOTE | 2022-08-29 09:05 | BH.SGPN.GN ---
Behaviors/Verbalizations/Mental Status: []Pt alert and oriented, disheveled appearance. Eye contact good. Motor activity appropriate. Speech within normal limits. Affect constricted, mood depressed. Thoughts linear, logical, no signs of hallucinations or delusions. Reviewed pt?s symptom tracker, no risk for suicidal ideation, plan, or intent as of 08/29/22 Client Response/Progress/Benefit: []Pt responded well to session, low energy, but participating. Pt reports feeling empty this morning as pt is grieving the loss of a family member. Pt shared her family had services yesterday and pt found some comfort in being with supports. Pt shared she does not want to go back to grief counseling yet. Pt's mental health wins include getting to IOP tx today when she wanted to cancel and working on her self-care checklist. Pt appeared to benefit from connecting with peers and reflecting on her application of coping skills. Pt will continue IOP tx to prevent decompensation, improve daily functioning, and reduce isolation. Narrative Note: []
--- NOTE | 2022-08-29 10:10 | BH.SGPN.GN ---
Behaviors/Verbalizations/Mental Status: [] Client alert and oriented, casually dressed and groomed. Eye contact good. Motor activity appropriate. Speech within normal limits. Affect congruent, mood euthymic. Thoughts linear, logical, no signs of hallucinations or delusions. Client Response/Progress/Benefit: [] Client responded well to session AEB sharing and listening attentively to others. Client with group provided examples of benefits of having social support which included having someone to vent to, getting direction, and having people there to catch you when you fall. Client also participated in group discussion regarding reasons that prevent us from using our supports with stating substance abuse. Client participated in experiential activity illustrating the importance of having multiple social supports. Client provided supportive feedback and problem solving throughout group activity. Client participated in group processing of the activity, stating having communication with supports helps make the activity successful. Client appeared to benefit from increased knowledge of the benefits of social support and greater self-awareness. Will continue IOP treatment to improve overall functioning, increase use of self care, and decrease negative thought patterns. Narrative Note: []
--- NOTE | 2022-08-29 11:15 | BH.SGPN.GN ---
Behaviors/Verbalizations/Mental Status: [] Client alert and oriented, casually dressed and groomed. Eye contact good. Motor activity appropriate. Speech within normal limits. Affect congruent, mood euthymic. Thoughts linear, logical, no signs of hallucinations or delusions. Client Response/Progress/Benefit: [] Client was an active participant throughout AEB contributing to discussion, providing personal examples, and taking notes. Client provided input during discussion on the types of support our supports can provide. Client able to identify current support system and barriers that get in the way of using supports by drawing out their own support net. Client reported after identifying what type of supports they receive; they gained awareness that they could benefit from more emotional supports. Client identified steps to achieve this by reaching out and texting friends more, being honest with others, and utilizing their weighted blanket. Client seemed to benefit from identifying the type of support client needs to work on improving. Client recommended to continue IOP tx to increase healthy coping, reduce isolation, and increase overall functioning. Narrative Note: []
--- NOTE | 2022-09-01 09:05 | BH.SGPN.GN ---
Behaviors/Verbalizations/Mental Status: []Pt alert and oriented, neatly dressed and groomed-reported she showered. Eye contact good. Motor activity appropriate. Speech within normal limits. Affect congruent, mood euthymic. Thoughts linear, logical, no signs of hallucinations or delusions. Reviewed pt?s symptom tracker, no risk for suicidal ideation, plan, or intent as of 09/01/22 Client Response/Progress/Benefit: []Pt responded well to session, attentive and engaged. Pt reports feeling accomplished this morning as pt has been working on her weekly goals. Pt shared she showered, painted, and cleaned her room over the weekend which felt good. Pt has been working on accomplishing goals each day and highlighting her progress. Pt's stressor today is that her aunt is getting surgery today, so pt is anxious. Pt able to identify healthy coping skills she can use to manage anxiety today. Pt will continue IOP tx to promote mood stability, reduce negative thinking patterns, and increase motivation. Narrative Note: []
--- NOTE | 2022-09-01 10:05 | BH.SGPN.GN ---
Behaviors/Verbalizations/Mental Status: [] Client alert and oriented, casually dressed and groomed. Eye contact good. Motor activity appropriate. Speech within normal limits. Affect congruent, mood euthymic. Thoughts linear, logical, no signs of hallucinations or delusions. Client Response/Progress/Benefit: [] Client responded well to session, contributing to discussion and engaged during the activity. Attentive during discussion on the quote and shared anxiety can be a big factor in preventing change. Group identified the benefits of change which included: personal growth, positive perspective, increased confidence and better mental health. Worked with the group to identify barriers to change, which included: uncomfortable emotions such as anxiety, lack of awareness, low energy, support system, and negative thinking. Client also reflected on past negative experiences can keep people from making changes. Client participated along with group in activity where they identified and discussed the emotions related to change. Benefited from increased awareness and understanding of emotions, benefits, and barriers related to change. Will continue IOP tx to continue to increase self care, reduce negative thinking patterns, and improve overall functioning. Narrative Note: []
--- NOTE | 2022-09-01 11:13 | BH.SGPN.GN ---
Behaviors/Verbalizations/Mental Status: [] Client alert and oriented, casually dressed and groomed. Eye contact good. Motor activity appropriate. Speech within normal limits. Affect congruent, mood euthymic. Thoughts linear, logical, no signs of hallucinations or delusions. Client Response/Progress/Benefit: [] Client responded well to session, attentive AEB participating in activity and actively engaging in group discussion. Group processed activity to relate the strategies used to overcome barriers in the activity to managing change in own life. Discussed and set SMART goal in group as it relates to change group members are wanting to make. Client identified she wants a having a room cleaner house. Identified being in the preparation stage. Client stated her goal is to clan for 15 mins every non IOP day. Appeared to benefit from identifying a small goal to work towards. Client will continue IOP tx to prevent decompensation, gain healthy coping skills, and increase healthy coping. Narrative Note: []
--- NOTE | 2022-09-02 09:05 | BH.SGPN.GN ---
Behaviors/Verbalizations/Mental Status: [] Eye contact is good. Motor activity is appropriate. Appearance is casual. Speech is Appropriate. Mood is depressed. Affect is congruent. Thoughts are linear and logical. No evidence of psychosis. Reviewed daily check in sheet and no reports of suicidal ideations or intent. Client Response/Progress/Benefit: [] Pt was an active participant in group discussion. Attentive. Daily symptom tracker notes 2/5 for depression and anxiety. Reports 1/5 for self-harm urges. Mental health wins include utilizing skill discussed in group to help with her motivation called evens miller. Elaborated on the game and how it encourages her to accomplish tasks around the house. By increasing tasks she spends less time in bed and more time being active. Due to her recent depression her house is out of control Shared the she did not take a nap yesterday which was a significant win as she typically naps 2-3 times a day. Increased activity and lack of naps also improve her quality of sleep at night. She also shared current stressors. Benefited from group support, encouragement, and feedback. Will continue in IOP to maintain safety, prevent decompensation/re-admission, and to increase healthy coping. Narrative Note: []
--- NOTE | 2022-09-02 09:39 | BH.MDN ---
Multi-Disciplinary Note - Note 45-min Individual Time Started:: 08:31 Date: 09/02/22 Purpose of session/treatment goals addressed:: To work on goal #1 of pt's tx plan and review behavior activation homework. Created a plan for continued skill implementation. Eye Contact:: Good Motor Activity:: Appropriate Appearance:: Casual Speech:: Appropriate Mood:: Euthymic Affect:: Congruent Thoughts:: Linear, Logical, No evidence of hallucinations/delusions noted Staff Interventions:: motivational interviewing, psychoeducation on: - intrinsic vs extrinsic motivation, CBT techniques, strengths perspective, goal setting Client Response:: Pt engaged in session, reported looking forward to meeting with therapist as she is proud of her accomplishments in the past week. Shared completing several of the activities on the activity automatic data processing planner created in last session. Pt noted that knowing she would be reporting back on her progress aided in motivating her to complete several of the tasks, as wanted something positive to report. Connected with discussion on intrinsic vs. extrinsic motivation and identified she tends to be more extrinsically motivated. Reflected that this has made it difficult to complete tasks if not encouraged or told to do so by others and identified how this has maintained her depression in the past. Identified that continued completion of a weekly activity automatic data processing planner would improve consistency, and promote improved sense of accomplishment and satisfaction ultimately beginning to develop more intrinsic motivation. Worked with therapist to create a new behavior activation activity automatic data processing planner for this week and discussed ways to make some of the less enjoyable activities more enjoyable. Shared she turned her cleaning activity last week into a ?cleaning bingo? game per suggestion of another participant. Identified wanting to create a coping skills word search in where she will complete the skill in person when finding it on the word search. Shared making the activities more interactive may also improve her motivation levels as well as reduce avoidance. Risks/Concerns:: Pt denies any suicidal ideations, plan, or intent as of 09/02/22. Progress Toward Goals/Plan:: Pt is making progress compared with previous week. Reports completing several self-care activities, coping skills, and thought challenging techniques. Shared use of a weekly schedule as well as finding ways to make the tasks into games aided in doing so. Identified use of opposite action, positive self-talk, and thought challenging in order to do so. Continues to report some depressive sx and ongoing difficulties with sleep. Did recently see a change in medications when meeting with outpatient psychiatry last week. Will follow-up on 09/09/22 regarding these adjustments. Pt will continue IOP tx to promote use of healthy coping skills, continue to improve functioning, and improve mood stability. Time Stopped:: 09:11
--- NOTE | 2022-09-02 10:10 | BH.SGPN.GN ---
Behaviors/Verbalizations/Mental Status: []Pt alert and oriented, neatly dressed and groomed. Eye contact good. Motor activity appropriate. Speech within normal limits. Affect congruent, mood euthymic. Thoughts linear, logical, no signs of hallucinations or delusions. Client Response/Progress/Benefit: []Pt was an active participant in group discussion and experiential activity. Attentive during psychoeducation on possible causes to developing and maintain unhealthy coping skills which can impact mental health. Pt participated in interactive discussion identifying common unhealthy coping skills and pt identified personal ones as avoidance, isolation, and distractions. Able to make connections between experiential activity (folder towers) and importance of having a solid base of internal and external coping skills. Benefited from increased awareness of internal and external coping skills and identifying unhealthy coping skills. Will continue in IOP to promote self-care practices, improve daily functioning, and increase distress tolerance skills. Narrative Note: []
--- NOTE | 2022-09-02 11:10 | BH.SGPN.GN ---
Behaviors/Verbalizations/Mental Status: []Pt alert and oriented, appropriately dressed and groomed. Eye contact good. Motor activity appropriate. Speech within normal limits. Affect congruent, mood euthymic. Thoughts linear, logical, no signs of hallucinations or delusions. Client Response/Progress/Benefit: []Pt responded well to session, taking notes and contributing. Group discussed the different categories of coping skills which included distraction, emotional release, grounding, self-love, and thought challenging.? Pt participated in creating a coping skills ?menu? from the five categories of coping skills. Pt's coping skill menu included: journaling, boxing, deep breathing, creating a pro/con list, and opposite action. Pt reported struggling at times with consistency and plans to remind herself of the importance of consistent practice to improve motivation. Appeared to benefit from increasing repertoire of healthy coping skills. Will continue tx to promote continued use of healthy coping skills, reduce avoidance, and maintain mood stability. Narrative Note: []
--- NOTE | 2022-09-03 09:03 | BH.SGPN.GN ---
Behaviors/Verbalizations/Mental Status: []Pt alert and oriented, neatly dressed and groomed. Eye contact good. Motor activity appropriate. Speech within normal limits. Affect congruent, mood mellow. Thoughts linear, logical, no signs of hallucinations or delusions. Reviewed pt?s symptom tracker, no risk for suicidal ideation, plan, or intent as of 09/03/22 Client Response/Progress/Benefit: []Pt responded well to session, attentive and receptive to feedback. Pt reports feeling dissatisfied this morning although pt recently accomplished a lot of her personal goals. Pt shared she created a self-care bingo and this has helped motivate pt to use opposite action an accomplish ADLs. However, pt stated she is focusing on how she had a panic attack about her self-care bingo board last night which is triggering the dissatisfaction. Pt receptive to gentle thought challenging and encouragement from peers which pt appeared to benefit from. Pt will continue IOP tx to reduce isolation, increase self-care, and improve daily functioning. Narrative Note: []
--- NOTE | 2022-09-03 10:05 | BH.SGPN.GN ---
Behaviors/Verbalizations/Mental Status: []Client alert and oriented, casually dressed and groomed. Eye contact good. Motor activity appropriate. Speech normal. Affect congruent, mood euthymic, anxious. Thoughts linear, logical, no signs of hallucinations or delusions. Client Response/Progress/Benefit: []Client's receptive of session, remained an actively engaged participant, AEB client listening and taking notes throughout, as well as participated in small group discussion. Attentive during psychoeducation on communication styles, providing an example of aggressive communication. Assisted group with identifying barriers of effective communication which included: assuming, shutting down, dominating the conversation, and using text to communicate. Identified a personal barrier as ?mind reading? and becoming emotionally overwhelmed. Benefited from increased awareness of different communication barriers, styles, and the importance of communicating effectively to improve mental wellness. Will continue IOP tx to continue to improve overall functioning, promote mood stability, and prevent decompensation. Narrative Note: []
--- NOTE | 2022-09-03 11:15 | BH.SGPN.GN ---
Behaviors/Verbalizations/Mental Status: [] Client alert and oriented, casually dressed and groomed. Eye contact fair. Motor activity appropriate. Speech within normal limits. Affect congruent, mood euthymic. Thoughts linear, logical, no signs of hallucinations or delusions Client Response/Progress/Benefit: [] Client responded well to session AEB client listening attentively to others and providing input during group discussion. Client did well in the activity to be assertive and ask for feedback. Recognizes if group wasn't assertive in activity, they wouldn't have been successful. Discussed with group communication strategies used to make activity successful. Attentive during psychoeducation on interpersonal DBT skill JEREMY. Client set a goal to work on being more assertive by starting with her best friend. Stated she believes her best friend will respond the healthiest to her being more assertive so will be a good person to start with. Client seemed to benefit from increasing awareness of healthy strategies to improve communication. Will continue IOP tx to increase healthy coping, challenge negative thinking, and prevent decompensation.
== END 2022-09-05 23:59 ==
LOC: BHIOP 08:00
PROVIDERS: PCP Family Medicine; Referring Provider Psychiatry & Neurology Psychiatry; Visit Provider Psychiatry & Neurology Psychiatry
DX: F31.4 Bipolar disorder, current episode depressed, severe, without psychotic features (principal); F41.9 Anxiety disorder, unspecified; F90.0 Attention-deficit hyperactivity disorder, predominantly inattentive type; F10.90 Alcohol use, unspecified, uncomplicated; Z79.899 Other long term (current) drug therapy
CPT/HCPCS: S9480; 90832; 90834; 90853

== ENCOUNTER 2022-09-08 08:16 | Outpatient (RCR) | payer OTHER, MEDICAID, SELFPAY ==
[2022-09-06 02:16] VITALS: BP 153/83; PULSE 94
--- NOTE | 2022-09-08 10:10 | BH.SGPN.GN ---
Behaviors/Verbalizations/Mental Status: []Pt alert and oriented, casually dressed and groomed. Eye contact good. Motor activity appropriate. Speech within normal limits. Affect congruent, mood euthymic. Thoughts linear, logical, no signs of hallucinations or delusions. Client Response/Progress/Benefit: []Pt receptive to session AEB contributing to discussion, as well listening attentively to others, and taking notes. Worked with group to brainstorm the positive and negative aspects of stress on physical and mental health. Group did well to identify the benefits of stress as well as the impact of distress on performance, relationships, and mental health. Pt identified their personal top stressors as: ?other people?s emotions,? emotions and grief, being vulnerable, and upcoming events. Pt reports when the stress overflows, pt reacts with crying, throwing things, and shutting down. Pt seemed to benefit from increased awareness of current stressors and impact stress has on mental health. Recommended to continue IOP tx to continue to promote healthy coping, reduce isolative behaviors, and increase distress tolerance skills. ? Narrative Note: []
--- NOTE | 2022-09-08 11:00 | BH.SGPN.GN ---
Behaviors/Verbalizations/Mental Status: [] Eye contact is good. Motor activity is appropriate. Appearance is casual. Speech is Appropriate. Mood is depressed. Affect is congruent. Thoughts are linear and logical. No evidence of psychosis. Client Response/Progress/Benefit: [] Pt was an active participant in group discussions and experiential activity. Attentive during psychoeducation on the 4 A's (Avoid, adapt, alter, accept) of coping with stress as well as strategies to identify stressors in which one has no control, little control, or a great deal of control over. Shared that he would benefit most from working on accept in regards to the 4 A's of coping with stress. Was able to identify the connection between the experimental activity and utilization of stress management skills. Benefited from increased awareness of stress management strategies. Will continue in IOP to maintain safety, prevent decompensation/re-admission, and to increase healthy coping skills. Narrative Note: []
--- NOTE | 2022-09-08 11:38 | BH.MDN ---
Multi-Disciplinary Note - Note 60-min Individual Time Started:: 08:28 Date: 09/08/22 Purpose of session/treatment goals addressed:: To review homework and progress in treatment thus far, discuss goals for tx moving forward, and process any current stressors impacting further progress. Eye Contact:: Good Motor Activity:: Appropriate Appearance:: Casual Speech:: Appropriate Mood:: Euthymic Affect:: Congruent Thoughts:: Linear, Logical, No evidence of hallucinations/delusions noted Staff Interventions:: motivational interviewing, CBT techniques, strengths perspective, reviewed DSM-5, goal setting, taught coping skills - psychoeducation on intrusive thoughts and worked to identify skill for management of anxiety associated Client Response:: Client responded well to session, open to meeting with therapist. Client shared feeling overall her mood and ability to engage in activities she enjoys has significantly improved in the past few weeks. Reviewed homework to complete weekly activity log, in which client completed several of the goals she identified for the week as well as added an additional goal to eat in the kitchen rather than her bedroom. Reports that having to hold herself accountable for her progress each week has been helpful and she plans to continue to do so when returning to outpatient counseling. Discussed feeling ready to create her weekly schedule on her own rather than in session as she has done in the past. Additional progress identified in reduction of anger sx and improved sleep as well. Client attributes her improved sleep to beginning to implement a 10-minute guided meditation in her nighttime routine. Client reports right now her biggest stressor as her relationships with her friends and her father. Noted she continues to struggle with not feeling connected with others and is unable to identify a reason why. Reports her relationship with her father has always been tense and that she would like to work on acceptance in this regard, as well as identifying ways to adapt her environment and coping skills to feel more comfortable in the home environment. Risks/Concerns:: Client denies any suicidal ideations, plan, or intent as of 09/08/22. Denies any homicidal ideations. Denies any medication issues. Progress Toward Goals/Plan:: Client continues to respond well to IOP tx AEB increased contributions in group and reduced anger and depression scores on the DSM-5. Client reports her personal hygiene has improved, she has been journaling again, and she has been spending less time in her room. Client's DSM-5 scores for depression and anxiety have both reduced which client attributes to using healthy coping skills more often. Client's current stressors include returning to work, her relationships with friends and her father, and being alone. Client can benefit from ongoing IOP tx to help client improve consistency of skill application, maintain mood stability, and prevent decompensation. Time Stopped:: 09:23
--- NOTE | 2022-09-08 13:44 | BH.TPR ---
Treatment Plan Review Date of Admission:: 08/15/22 Date of Treatment Plan Review:: 09/10/22 Admitting Diagnoses:: Bipolar 1 disorder, most recent episode depressed, severe without psychosis (F31.4). 2. Cluster B traits. 3. Anxiety disorder, NOS. 4. History of ADHD, inattentive type. 5. Alcohol use disorder Current Diagnoses:: Bipolar 1 disorder, most recent episode depressed, severe without psychosis (F31.4). 2. Cluster B traits. 3. Anxiety disorder, NOS. 4. History of ADHD, inattentive type. 5. Alcohol use disorder Patient's Response to Treatment:: Pt has responded well to treatment AEB pt consistently attending IOP sessions and reduction of overall mental health symptoms on the DSM-5 by 41% since admission. Pt contributes well during individual sessions and is becoming more engaged during group sessions. Pt applies coping skills outside of IOP and reports overall mood is improved, but pt's anxiety is slightly increased due to wanting to take steps to improve her boundaries and interpersonal relationships. Status of Current Problems and Symptoms: Pt continues to struggle with apathy, emotion regulation, communicating her needs and emotions, avoidance, and negative self-talk. Pt is working on facing things that make pt anxious and reducing isolative behaviors through the use of behavior activation. Pt disclosed additional issues which pt believes could be the relationship she has with her father and his drinking behaviors, and pt wants to work on addressing this through assertive communication and boundary setting while in IOP as well. Problem #1 Problem Name:: Depression, worthlessness, apathy Status of Goals:: Objective 1- complete with ongoing work encouraged. Pt?s DSM-5 scores for depression decreased by 38% since admission. Pt reports cleaning and engaging in healthy coping skills more, as well as increased sense of enjoyment and reduced suicidal ideations. Objective 2- in progress. Pt is working on catching herself using distortions and negative self-talk messages. She is trying to then practice reframing thoughts about herself by incorporating more positive affirmations as well. Team Recommendations:: Continue to work on behavior activation goals as pt continues to display progress in this area. Continue with current treatment plan. Problem #2 Problem Name:: Anxiety, avoidance, rumination Status of Goals:: Objective 1- not complete. Pt is actively working on implementing healthy anxiety management skills. Pt can identify triggers and she has learned coping skills to manage her anxiety, she is working to improve consistency at this time. Pt often struggles to communicate her needs in times of high anxiety as well which has made additional progress difficult as she often shuts down. She reports wanting to work on this through use of more assertive communication. Pt DSM-5 scores for anxiety have seen a 13% reduction since admission. Team Recommendations:: Continue to work on emotion regulation as pt continues to report difficulties in managing emotions when feeling overwhelmed or anxious. Continue with current treatment plan.
--- NOTE | 2022-09-10 09:00 | BH.SGPN.GN ---
Behaviors/Verbalizations/Mental Status: []Eye contact good, casually dressed, motor activity appropriate, speech normal rate and tone, mood anxious and dysthymic, congruent affect, thoughts linear and intact, no evidence of delusions or hallucinations. Reviewed pt's symptom tracker, pt suicidal ideation within established baseline, denies any plan or intent. Future oriented. Client Response/Progress/Benefit: []Pt responded well to session, attentive and willing to process with group. Identified current mental health wins as challenging herself to be social and hangout with a friend despite not initially wanting to. Shared having a positive time and enjoying herself as a result. Additional win noted as continuing to work on her daily self-care goals, despite not always having the motivation or energy to do so. Identified opposite action and positive self-talk as primary supports in this area. Current stressor noted as her mother recently having to go to the ER. Pt shared struggling with distorted thoughts, specifically catastrophizing, as a result. Pt appeared to benefit from group support and encouragement. Continues to display progress in use of thought challenging and opposite action audrey make progress towards behavior activation goals. Recommended continued IOP tx to continue to improve self-care, promote mood stability, as well as prevent decompensation. Narrative Note: []
--- NOTE | 2022-09-10 10:10 | BH.SGPN.GN ---
Behaviors/Verbalizations/Mental Status: [] Eye contact is good. Motor activity is appropriate. Appearance is casual. Speech is Appropriate. Mood is depressed. Affect is flat. Thoughts are linear and logical. No evidence of psychosis. Client Response/Progress/Benefit: [] Pt was an active participant in group discussion. Attentive during psychoeducation on the CBT [place] (Thoughts, Behaviors, Emotions). Engaged in small group session in which members identified common thoughts, emotions, and actions associated with an event associated with fear of rejection. Completed worksheet in which pt identified a thought that is keeping them stuck or is in obstacle to increased mental wellness. The thought that pt identified was I didn't do enough for them( referencing recent family ). Benefited from increased awareness of the basis of CBT therapy as well as thoughts are impacting pt' progress. Will continue in IOP to prevent decompensation, stabilize mood, increased healthy coping, and transition back to full-time work., Narrative Note: []
--- NOTE | 2022-09-10 11:10 | BH.SGPN.GN ---
Behaviors/Verbalizations/Mental Status: []Pt alert and oriented, neatly dressed and groomed. Eye contact good. Motor activity appropriate. Speech within normal limits. Affect congruent, mood anxious and euthymic. Thoughts linear, logical, no signs of hallucinations or delusions. Client Response/Progress/Benefit: []Pt responded well to session, contributing to discussion when prompted, and attentive throughout discussion. Pt identified a negative thought that has kept them stuck. Pt's thought was I didn?t do enough for them. Pt reported when they think this way, they cry and isolate. Pt worked to reframe the thought by finding more rational, realistic ways to look at the thoughts and then processed within group setting. Pt reframed the thought to ?I did what I could with the information I had.? Pt appeared to benefit from practicing challenging negative thinking. Pt will continue IOP tx to promote use of healthy coping skills, reduce intensity of anxiety symptoms, and improve daily functioning. ? Narrative Note: []
--- NOTE | 2022-09-10 11:59 | PCM.BH.PN ---
Progress Note Progress Note: History of Present Illness/Interim History: The patient is a 27-year-old single, female with a history of bipolar depression who is seen in follow-up at the [facility] behavioral health IOP program. I last saw the patient 3 weeks ago when she was referred to our program after a suicide attempt and psychiatric admission from August 07 to Josh August 14, 2022. At that time the patient had also been abusing alcohol by drinking 5 drinks a day for 5 days a week. The patient states that she has not used any alcohol since August 28, 2022. She did use alcohol at the same amount as noted above once or twice between August 20 and August 28 however. The patient feels that overall she has improved and has been engaged with consistent attendance according to the staff. She states that her mood is more stable and less depressed now. She denies any yessica. She denies passive thoughts of now. She denies any passive suicidal ideation. She says she still has some hopelessness but much less than before. She has not had any suicidal ideation since 10 days ago. One of her stressors was that her mother returned to work and her mom is a big source of support for the patient as she does not get along with her alcoholic father. Her mother is off work now due to back pain and has been home in the past 2 weeks and possibly this has contributed to the patient's improvement. Patient denies any self-harm. She denies active suicidal ideation, homicidal ideation, passive suicidal ideation, hallucinations, delusions. Current Psychiatric Medications: [] Abilify 20 mg p.o. nightly (x1 month); lithium carbonate increased to 150 mg every morning and 450 mg p.o. at bedtime (for total of 600 mg daily), had blood work for this by her outpatient psychiatrist. Her doctor also added BuSpar of unknown dose. Mental Status Examination: [] Patient is a morbidly obese female who is casually dressed and groomed with good hygiene. She has rainbow colored hair in the front still. She is cooperative during the interview. She has no psychomotor agitation or retardation. Eye contact is good and speech is normal rate and rhythm and fluent with no pressure. Mood is depressed. Affect is constricted. Thought process is goal-directed and organized. Thought content: There is no evidence of passive thoughts of , plan for suicide, homicidal ideation, suicidal ideation, hallucinations or delusions. There is no evidence of thoughts of self-harm. Reality testing is intact. Intelligence is average or possibly below average. Judgment is intact. Insight is limited. Impulsivity is high. Diagnoses: [] 1. Bipolar 1 disorder, most recent episode depressed, severe without psychosis (F31.4) 2. Cluster B traits 3. Anxiety disorder, NOS 4. History of ADHD, inattentive type 5. Alcohol use disorder 6. Primary support issues 7. Morbid obesity, asthma Plan: [] The patient will continue the IOP program at [facility] as the structure, support, education and group therapy will hopefully prevent worsening of the patient's symptoms. She felt safe during the interview and if it anytime she does not feel safe she will let us know or go to the emergency room. The risks, options, possible complications and side effects of the medications were again discussed with the patient and she understands and accepts these. No medication changes were made today as they were recently made by her outpatient physician. Patient agrees to abstain from alcohol and make every attempt to do so. She will continue to follow-up with her outpatient medical and psychiatric providers and I will see the patient in follow-up in 2 weeks.
--- NOTE | 2022-09-12 09:05 | BH.SGPN.GN ---
Behaviors/Verbalizations/Mental Status: [] Eye contact is good. Motor activity is appropriate. Appearance is casual. Speech is Appropriate. Mood is anxious. Affect is congruent. Thoughts are linear and logical. No evidence of psychosis. Reviewed daily check in sheet and no reports of suicidal ideations or intent. Client Response/Progress/Benefit: [] Pt was an active participant in group discussion. Attentive. Daily symptom tracker notes 07/13 for depression and anxiety. She reports that his AM was very challenging and emotional as they had to call 911 for her mother due to severe pain at 430a. Mother went to the ER and was discharged. Mother's chronic pain has escalated recently which has been an additional stressor for patient and her family. Pt is concerned about her mother's health. She was able to reframe and utilized healthy coping strategies which has kept her anxiety and depression very escalating. She was able to identify a few mental health wins. Benefited from group support, encouragement, and feedback. Will continue in IOP to prevent decompensation/re-admission, maintain safety, and increase healthy coping. Narrative Note: []
--- NOTE | 2022-09-12 10:15 | BH.SGPN.GN ---
Behaviors/Verbalizations/Mental Status: []Pt alert and oriented, casually dressed and groomed. Eye contact good. Motor activity appropriate. Speech within normal limits. Affect congruent, mood content, anxious. Thoughts linear, logical, no signs of hallucinations or delusions. Client Response/Progress/Benefit: []Pt was an engaged participant AEB providing input, listening to others, and taking notes. Participated in interactive group discussion on internal and external barriers to mental health progress. Pt described current reality using a mountain metaphor. Pt shared feeling like ?I?m struggling to climb the mountain because I?m being weighed down by all my stressors and can see my supports at the finish line?. Reported desired reality is being able to more consistently use her skills and reach out to her supports in order to feel less overwhelmed and more confident in managing her mental health sx. Pt shared personal barriers to desired realty include: fear of failure, lack of motivation, and not giving herself credit. Benefited from increased awareness of current barriers to progress as well as current/desired realities. Pt to continue IOP to prevent decompensation, improve daily functioning, and increase use of healthy coping skills. ? Narrative Note: []
--- NOTE | 2022-09-12 11:10 | BH.SGPN.GN ---
Behaviors/Verbalizations/Mental Status: []Client alert and oriented, casually dressed and groomed. Eye contact fair. Motor activity appropriate. Speech within normal limits. Affect constricted, mood dysthymic. Thoughts linear, logical, no signs of hallucinations or delusions. Client Response/Progress/Benefit: []Client an active participant at beginning of group, encouraging peers and contributed as group brainstormed ideas on how to cope with internal barriers that keep clients stuck from moving towards goals. Able to identify barriers to desired reality. Worked with group to identify strategies to help overcome barriers. Identified personal barriers to desired reality. Client chose to not share what barrier she wants to work on. Client appeared to disengage toward middle of group. Benefited from group by identifying obstacles and solutions to desired reality. client to continue IOP to increase healthy coping, challenge distortions, and prevent decompensation.
--- NOTE | 2022-09-15 09:05 | BH.SGPN.GN ---
Behaviors/Verbalizations/Mental Status: [] Eye contact good. Motor activity appropriate. Speech within normal limits. Affect congruent, mood anxious and euthymic. Thoughts linear, logical, no signs of hallucinations or delusions. Reviewed client?s symptom tracker, no risk for suicidal ideation, plan, or intent as of 09/15/2022. Client Response/Progress/Benefit: [] Client responded well to session, attentive and willing to process with group. Identified current mental health wins as going to her grandparents over the weekend and it going overall well with opening up more to others. Client also shared win of cooking for herself two nights in a row. Current stressor noted as not knowing if she should go back to work yet or not.Shared she worries that boss won't be receptive to her due to poor past experiences with other bosses. Client appeared to benefit from group support and encouragement. Continues to display progress in use of thought challenging. Recommended continued IOP tx to continue to increase overall funcitoning, promote mood stability, as well as prevent decompensation. Narrative Note: []
--- NOTE | 2022-09-15 10:10 | BH.SGPN.GN ---
Behaviors/Verbalizations/Mental Status: [] Eye contact is good. Motor activity is appropriate. Appearance is casual. Speech is Appropriate. Mood is depressed. Affect is congruent. Thoughts are linear and logical. No evidence of psychosis. Client Response/Progress/Benefit: [] Pt was an active participant in group discussion. Attentive during psychoeducation on fixed mindset. Participated during interactive discussions in which group worked together to define 'fixed mindset'. Descriptors identified included; only one way of seeing things, absolute thinking, not compromising, and believing that nothing could change. Participated in further discussion on the negatives that result from a 'fixed' mindset which are; emotional dysregulation, decreased confidence in oneself, feeling 'stuck', feelings of worthlessness, hopelessness, and 'giving up'. Benefited from increased understanding of 'fixed' mindset and its impact on mental health. Will continue in IOP to maintain safety, prevent decompensation/re-admission to psych unit, and to increase healthy coping skills. Narrative Note: []
--- NOTE | 2022-09-15 11:07 | BH.MDN_ITS ---
Multi-Disciplinary Note - Note 45-min Individual Time Started:: 09:25 Date: 09/15/22 Purpose of session/treatment goals addressed:: To address treatment goal #2, focused on anxiety surrounding interpersonal relationships. Discussed strategies for improving ability to manage anxiety regarding difficult conversations with supports. Eye Contact:: Good, Other - tearful Motor Activity:: Appropriate Appearance:: Casual Speech:: Appropriate, Soft Mood:: Anxious, Dysthymic Affect:: Congruent Thoughts:: Linear, Logical, No evidence of hallucinations/delusions noted Staff Interventions:: thought challenging, psychoeducation on: - vulnerability, mindfulness skills - deep breathing, strengths perspective, taught coping skills - reviewed DEAR MAN and practiced application Client Response:: Client responded well to session, open to meeting with therapist. Client shared feeling ?really anxious? this morning and became tearful. Receptive of engaging in deep breathing and grounding activities to reduce anxiety and aid in self-regulation. Client able to do so, and successfully engaged in conversation. Discussed having a conversation about returning to work with her father and felt pressured to do so upon hearing his disappointment when client shared not feeling ready to go back. Client noted that she shut down as a result and avoided interacting with her father the remainder of the day. Insight that she often shuts down when having difficult conversations or experiencing situations that reinforce her fear of failure and rejection. Insight that this has contributed to feelings of disconnect within other relationships, as client withdraws rather than risks saying something ?embarrassing?. Noted also struggling to advocate for her need to focus on less heavy topics which reinforces her fears of disappointing/angering others. Did well to work with therapist on identifying and challenging associated distortions, as well as discussed benefits of working to address and overcome these fears. Connected with discussion on practicing small moments of vulnerability with supports to begin combating fears of disappointment and embarrassment. Additionally, identified how to apply the DEAR MAN technique to difficult conversations with her supports. Client given a worksheet to practice DEAR MAN for two conversations she would like to have. Shared plans to discuss return to work and potential engagement in the [employer] work readiness program with her parents this afternoon. Risks/Concerns:: Client denies any suicidal ideations, plan, or intent as of 09/15/22. Denies any homicidal ideations. Denies any medication issues. Progress Toward Goals/Plan:: Client continues to respond well to IOP tx AEB increased continued engagement in both individual and group settings. Client is making consistent strides on her behavior activation goals and has begun to work on DBT skills for managing emotions/distress tolerance in order to continue to improve her interpersonal relationships. Shared overall improved mood and engagement in daily activities; however, continues to struggle with anxiety, lack of motivation, and negative self-talk. Client can benefit from ongoing IOP tx to help client improve consistency of skill application, improve interpersonal communication, maintain mood stability, and prevent decompensation. Time Stopped:: 10:05
--- NOTE | 2022-09-15 11:10 | BH.SGPN.GN ---
Behaviors/Verbalizations/Mental Status: []Pt alert and oriented, neatly dressed and groomed. Eye contact good. Motor activity appropriate. Speech within normal limits. Affect congruent, mood euthymic and anxious. Thoughts linear, logical, no signs of hallucinations or delusions. Client Response/Progress/Benefit: []Pt engaged during activity and discussion AEB providing some input, connecting with peers, as well as taking notes throughout. Pt did well to engage as group worked on identifying characteristics and benefits of adopting a growth mindset. Worked with fellow participants in reframing the example fixed thoughts into growth mindset thoughts. Reframed personal fixed thought of ?I?m not good enough? with growth mindset thought of ?my friends like me for for.? Benefitted from discussing benefits of growth mindset and brainstorming strategies for prompting growth-mindset. Pt did well in small group to challenge own thoughts and help peers. Pt will continue IOP tx to increase consistently application of healthy coping skills, improve motivation, and reduce negative thinking patterns. Narrative Note: []
--- NOTE | 2022-09-17 09:01 | BH.SGPN.GN ---
Behaviors/Verbalizations/Mental Status: [] Eye contact good. Motor activity appropriate. Speech within normal limits. Affect congruent, mood anxious and euthymic. Thoughts linear, logical, no signs of hallucinations or delusions. Reviewed client?s symptom tracker, no risk for suicidal ideation, plan, or intent. Client Response/Progress/Benefit: [] Client responded well to session, attentive and willing to process with group. Client reported she is currently struggling with making herself talk to her parents about wanting to stop working at the [employer] so she can go through the [employer] work program. Client stated she thinks this program would be really beneficial for her but is worried about how her parents and work will respond. Client recognized her pushing off this discussion is only increasing her anxiety and impacting other areas of her life. Client noted she has not been following through with some of the skills that she was using more consistently. Client identified mental positive was facing her anxiety about making a phone call to her psychiatrist to get her anxiety medication increase. Client appeared to benefit from group support and encouragement. Client progress slightly declining as evidenced by her starting to not follow through with skills outside of treatment environment. Recommended continued IOP tx to continue to increase consistent use of healthy coping skills, utilize anxiety management skills, and prevent decompensation.
--- NOTE | 2022-09-17 10:10 | BH.SGPN.GN ---
Behaviors/Verbalizations/Mental Status: []Pt alert and oriented, casually dressed and groomed. Eye contact fair. Motor activity restless. Speech within normal limits. Affect congruent, mood anxious. Thoughts linear, logical, no signs of hallucinations or delusions. Client Response/Progress/Benefit: []Pt was an active participant in group discussion and activity. Attentive during psychoeducation. Along with peers was able to identify barriers to taking action. Identified several symptoms and stressors that she feels are holding her back from progress such as lack of motivation, avoidance, and anxiety that freezes pt. Stated these things have kept pt from trying new things and making changes in her life. Benefited from increased self-awareness of obstacles. Will continue IOP tx to promote mood stability, increase application of healthy coping skills, and reduce negative thinking patterns. Narrative Note: []
--- NOTE | 2022-09-17 11:10 | BH.SGPN.GN ---
Behaviors/Verbalizations/Mental Status: []Client alert and oriented, casually dressed and groomed. Eye contact good. Motor activity appropriate. Speech within normal limits. Affect congruent, mood anxious. Thoughts linear, logical, no signs of hallucinations or delusions. Client Response/Progress/Benefit: []Client responded well to session, taking notes and participating in worksheet discussion. Client connected with the zones of action/change and that making sustainable change comes from stepping out of one?s comfort zone into the learning zone. Client set a goal to gain control over fear of rejection. Client reported plans to challenge herself to have small vulnerable conversations with supports. Client identified using fidgets, the JEREMY skill, opposite action, and support from her mother as supports needed to help accomplish this goal. Appeared to benefit from identifying a small goal to benefit mental health. Will continue IOP tx to increase healthy coping, promote mood stability, and prevent decompensation. Narrative Note: []
--- NOTE | 2022-09-19 09:00 | BH.SGPN.GN ---
Behaviors/Verbalizations/Mental Status: []Pt alert and oriented, disheveled appearance. Eye contact good. Motor activity appropriate. Speech within normal limits. Affect congruent, mood anxious. Thoughts linear, logical, no signs of hallucinations or delusions. Reviewed pt?s symptom tracker, no risk for suicidal ideation, plan, or intent as of 09/19/22 Client Response/Progress/Benefit: []Pt responded well to session, attentive and receptive to feedback. Pt reports feeling confused this morning as pt wanted to go see her grandfather's grave, but she could not and it's been since 2017. Group talked about grief and normalized the impact grief has throughout time. Pt is also feeling anxious because pt talked to her boss about not returning to work. Pt shared this is good for pt's mental health, but pt feels guilt and anxiety because I don't like letting people down. Pt receptive to gentle thought challenging and pt gave herself credit for advocating for herself. Pt also cleaned her room last night and has decided to join the [employer] program which were positives. Pt appeared to benefit from reflecting on her use of skills. Pt will continue IOP tx to promote mood stability, reinforce use of healthy coping skills, and improve daily functioning. Narrative Note: []
--- NOTE | 2022-09-19 10:00 | BH.SGPN.GN ---
Behaviors/Verbalizations/Mental Status: [] Eye contact is good. Motor activity is appropriate. Appearance is casual. Speech is Appropriate. Mood is anxious. Affect is congruent. Thoughts are linear and logical. No evidence of psychosis. Client Response/Progress/Benefit: [] Pt was an active participant in group discussions and experiential activity. Attentive during psychoeducation. Participated during interactive discussions on unhealthy ways to manage emotions which included; substance abuse, self-harm, risky behaviors, isolation, lashing out at others, or sleeping excessively. Pt and peers identified consequences to unhealthy coping skills which included; relationship conflict, prison, hospitalization, rehab, shame, guilt, loss of job, etc. Group participated in discussion on the impact that intense emotions can have on communication which included; verbal vomit, not communicating effectively, resentments, over-sharing, dishonesty, yelling, anger outbursts, and relationship struggles. Engaged in experiential activity and able to relate activity to psychoeducation. Benefited from increased awareness of how the impact that emotions can have on communication. Will continue in IOP to maintain safety, prevent decompensation/re-admission, and to increase healthy coping skills. Narrative Note: []
--- NOTE | 2022-09-19 11:10 | BH.SGPN.GN ---
Behaviors/Verbalizations/Mental Status: []Client alert and oriented, casually dressed and groomed. Eye contact fair. Motor activity appropriate. Speech within normal limits. Affect constricted, mood dysthymic. Thoughts linear, logical, no signs of hallucinations or delusions. Client Response/Progress/Benefit: []Client engaged in session AEB client listening attentively to peers and providing input. Attentive during psychoeducation on 4 zones of regulation. Client able to identify feelings and behaviors for each zone. Client identified coping skills one can use to support self in each zone. Client reports she can benefit from practicing opposite action, GLAD journal, and sensory pressure. Benefited from increased education on zones of regulation or stages of alertness for emotions and healthy coping skills to use for each zone. Will continue IOP tx to increase consistent use of healthy coping, challenge distortions, and prevent decompensation.
--- NOTE | 2022-09-22 09:00 | BH.SGPN.GN ---
Behaviors/Verbalizations/Mental Status: []Eye contact is good. Motor activity is appropriate. Appearance is casual. Speech is Appropriate. Mood is anxious. Affect is congruent-tearful. Thoughts are linear and logical. No evidence of psychosis. Reviewed daily check in sheet and denies any active SI. Client Response/Progress/Benefit: []Pt responded well to session, receptive to feedback from peers. Pt reports feeling anxious this morning and pt became tearful. Pt shared over the weekend she got so anxious that she had a panic attack and had to go to the ER. Pt reframed this experience and identified that asking for help from others was a win. Pt also spent time with a friend this weekend listening to music and hanging out. Pt continues to struggle with low distress tolerance which impacts pt's ability to manage stressors and change. Pt is working on this in individual sessions. Pt will continue IOP tx to promote mood stability, increase distress tolerance skills, and improve daily functioning. Narrative Note: []
--- NOTE | 2022-09-22 10:10 | BH.SGPN.GN ---
Behaviors/Verbalizations/Mental Status: []Pt alert and oriented, casually dressed and groomed. Eye contact good. Motor activity appropriate. Speech within normal limits. Affect congruent, mood anxious. Thoughts linear, logical, no signs of hallucinations or delusions. Client Response/Progress/Benefit: []Pt receptive of group, participated in discussion and taking notes throughout. Group worked together to identify benefits of healthy relationships which included improves mental health, improved emotion regulation, increased sense of security, and a different perspective. Group identified factors that lead to unhealthy relationships which included trauma, lack of communication, unmanaged emotions, and lack of trust. Pt shared connecting with past negative experiences and fear of rejection/abandonment as personal challenges to healthy relationships. Did well to participate, provide input and ideas, as well as actively listen to other?s during the activity. Benefited from increased insight and awareness of benefits of healthy relationships and factors that contribute to unhealthy relationships. Pt to continue IOP tx to further improve consistent application of healthy coping skills and reduce self-sabotage behaviors, promote mood stability, and prevent decompensation. ? Narrative Note: []
--- NOTE | 2022-09-22 11:10 | BH.SGPN.GN ---
Behaviors/Verbalizations/Mental Status: [] Client alert and oriented, casually dressed and groomed. Eye contact good. Motor activity appropriate. Speech within normal limits. Affect congruent, mood euthymic, slightly anxious. Thoughts linear, logical, no signs of hallucinations or delusions. Client Response/Progress/Benefit: [] Client responded well to session, engaged and taking notes. Worked with group to identify characteristics of healthy and unhealthy relationships. Attentive during psychoeducation about characteristics of healthy, unhealthy, and abusive relationships. Client stated within relationships she does well is being respectful towards others. Client reported an area she would like to improve in is communication and trust. Client shared when she is upset she tends to shut down which leads to her needs not being met. Appeared to benefit from identifying area wants to work on to build healthier relationships. Client to continue IOP to increase healthy coping skills, challenge distortions, and prevent decompensation.
--- NOTE | 2022-09-24 09:05 | BH.SGPN.GN ---
Behaviors/Verbalizations/Mental Status: []Eye contact good, casually dressed, motor activity appropriate, speech normal rate and tone, mood euthymic and anxious, congruent affect, thoughts linear and intact, no evidence of delusions or hallucinations. Reviewed pt's symptom tracker, pt suicidal ideation within established baseline, denies any plan or intent. Future oriented. Client Response/Progress/Benefit: []Pt responded well to session, attentive and willing to process with group. Did well to provide supportive feedback to group, however opted not to process with the group today. Therapist gently challenged pt and assisted pt in brainstorming potential wins; however, pt ultimately chose not to share in group. Will continue to encourage active participation and working to allow herself to step outside her comfort zone in group setting as well. Recommended continued IOP tx to continue to improve anxiety management, promote mood stability, as well as prevent decompensation. Narrative Note: []
--- NOTE | 2022-09-24 10:10 | BH.SGPN.GN ---
Behaviors/Verbalizations/Mental Status: [] Client alert and oriented, casually dressed and groomed. Eye contact good. Motor activity appropriate. Speech within normal limits. Affect constricted, mood euthymic and anxious. Thoughts linear, logical, no signs of hallucinations or delusions. Client Response/Progress/Benefit: [] Client responded well to session AEB taking notes throughout and listening attentively to others. Client was attentive throughout group activity discussing famous individuals and how they overcame failure to be successful. Client helped group identify how fear of failure can impact mental health and relationships. Client shared that fear of failure has caused them to feel increased shame in themselves Group together identified how fear of failure leads to over-obsessing, not trying, and lack of confidence. Client participated in experiential activity, working with group members to problem solve.. Appeared to benefit from increased knowledge of fear of failure. Will continue IOP tx to improve self-confidence, challenge negative thinking patterns, and prevent decompensation. Narrative Note: []
--- NOTE | 2022-09-24 11:10 | BH.SGPN.GN ---
Behaviors/Verbalizations/Mental Status: [] Client alert and oriented, casually dressed and groomed. Eye contact good. Motor activity appropriate. Speech within normal limits. Affect constricted and tearful, mood euthymic and anxious. Thoughts linear, logical, no signs of hallucinations or delusions. Client Response/Progress/Benefit: [] Client responded well to session, engaged in the experiential activity and attentive throughout group processing. Client reported fear of failure has kept client from succeeding, trying new things, and meeting new people. Client completed fear of failure worksheet and was able to identify thoughts and behaviors that reinforce personal fear of failure including low confidence, distortions and stereotypes. Client participated in small group discussion regarding strategies to overcome fear of failure. Client struggled to identify strategies and indicated that this part was hard for them. Appeared to benefit from increased knowledge of strategies to combat fear of failure and gaining self-awareness. Client will continue IOP tx to increase self-confidence, prevent decompensation and increase overall functioniong. Narrative Note: []
--- NOTE | 2022-09-24 15:07 | BH.MDN ---
Multi-Disciplinary Note - Note 45-min Individual Time Started:: 08:14 Date: 09/24/22 Purpose of session/treatment goals addressed:: To address treatment goal #2, focused on recent influx in panic sx. Reviewed strategies for coping with intrusive and ruminating thoughts. Eye Contact:: Good Motor Activity:: Appropriate Appearance:: Casual Speech:: Appropriate Mood:: Anxious Affect:: Congruent Thoughts:: Linear, Logical, No evidence of hallucinations/delusions noted Staff Interventions:: thought challenging, motivational interviewing, CBT techniques, strengths perspective, goal setting Client Response:: Client receptive of session, willing to arrive prior to IOP group to meet with this therapist. Reports doing ?alright? today and went on to share continued struggles with anxiety over the past week. Originally reported ?I don?t know? when asked if she could identify any potential triggers; however, upon further discussion, client provided insight into several possible triggers. Identified being alone, change, and difficult conversations as potential root cause of recent influx in panic. Noted her father, whom client has a tense relationship with, was home all weekend and led to client isolating in her room for much of the day throughout the weekend. Additionally shared discussing plans not to return to her previous job with her employer, as well as her mother?s health continues to be a stressor. Noted her mother needs back surgery and does not qualify to have the procedure done at this time. Expressed experiencing increased rumination and intrusive ?what if? thoughts when isolated. Denies trying to use any skills when experiencing rumination, shared she instead often engages with the thoughts acknowledging that this reinforces her anxiety. Receptive of discussion reviewing self-sabotage behaviors and the role of isolation on hindering continued progress for client. Reports she has recently stopped completing her weekly activities schedule and believes this is also contributing to maintaining her anxiety. Insight that laying in bed and thinking of what she is anxious about is maladaptive and client was receptive of acknowledging her intrusive thoughts and reminding herself she does not have to engage with them. Worked with therapist on identifying skills she can use to reduce rumination and focus on the present. Additionally, identified benefits of working on the relationship with her father to improve overall comfort levels when her father is home. Shared plans to ask if he would like to do something one-on-one with her this week as they have not done something just the two of them in years. Risks/Concerns:: Client denies any suicidal ideations, plan, or intent as of 09/24/22. Denies any homicidal ideations. Denies any medication issues. Progress Toward Goals/Plan:: Client progress remains variable, as she reports progress in areas of motivation to return to work via beginning the [employer] program. Client also reports an overall improved mood, increased socialization, and reduction in sx of depression. However, does indicated increased anxiety and panic, as well as decreased follow-through in daily activity goals. Has insight into triggers and strategies to reduce self-sabotaging behaviors, as well as improve anxiety management. Motivation to improve the relationship with her father as well. Client can benefit from ongoing IOP tx to help client improve consistency of skill application, improve interpersonal relationships, maintain mood stability, and prevent decompensation. Time Stopped:: 09:00
--- NOTE | 2022-09-26 09:00 | BH.SGPN.GN ---
Behaviors/Verbalizations/Mental Status: []Pt alert and oriented, casually dressed and groomed. Eye contact good. Motor activity appropriate. Speech within normal limits. Affect congruent, mood euthymic and anxious. Thoughts linear, logical, no signs of hallucinations or delusions. Reviewed pt?s symptom tracker, no risk for suicidal ideation, plan, or intent as of 09/26/22 Client Response/Progress/Benefit: []Pt responded well to session, attentive and engaged. Pt reports feeling mixed emotions this morning as pt shared she advocated for herself about not returning to work. Pt stated this was both positive and stressful as pt identifies herself as a people pleaser. Pt shared she has not gotten a response back from her boss, but historically her boss has been supportive so pt can challenge her anxious thoughts. Pt reports she has been consistent with her daily routine and that has been helping her mood. Pt appeared to benefit from reflecting on her progress. Pt will continue IOP tx to further increase mood stability, improve self-compassion, and reinforce healthy coping skills. Narrative Note: []
--- NOTE | 2022-09-26 10:00 | BH.SGPN.GN ---
Behaviors/Verbalizations/Mental Status: [] Client alert and oriented, neatly dressed and groomed. Eye contact good. Motor activity appropriate. Speech within normal limits. Affect congruent, mood euthymic. Thoughts linear, logical, no signs of hallucinations or delusions. Client Response/Progress/Benefit: [] Client responded well to session, attentive during psychoeducation on SMART goals (Specific, Measurable, Achievable, Realistic, and Time-bound) and engaged in group experiential activity. Active in interactive discussion with peers in which they worked together to define what a goal is and the benefits of having goals. Group identified benefits as; giving a sense of purpose, improving motivation, and helping reduce negative mental health symptoms. Participated in interactive discussion in which group identified barriers to setting goals and following through with goals. Barriers included not feeling worthy, negative self-talk, time, and cognitive distortions such as all or nothing thinking. Client shared how she struggles to give herself recognition when completing a goal due to feeling like she could do more and isn't deserving of recognition. Benefited from increased awareness of benefits and strategies for goal-setting. Will continue in IOP tx to increase self care, reduce negative thinking patterns, and prevent decompensation. Narrative Note: []
--- NOTE | 2022-09-26 11:10 | BH.SGPN.GN ---
Behaviors/Verbalizations/Mental Status: [] Client alert and oriented, casually dressed, appropriately groomed. Eye contact good. Motor activity appropriate. Speech within normal limits. Affect congruent, mood euthymic. Thoughts linear, logical, no signs of hallucinations or delusions. Client Response/Progress/Benefit: [] Client was engaged during discussion and willing to complete the worksheet challenging them to develop a personal SMART goal. Client chose the goal of following her daily schedule for 1 week. Client stated this will benefit them by getting her out of her bedroom. Client identified barriers which included lack of motivation, cognitive distortions, and her dad being home. Identified solutions as utilizing opposite action, reframing her thoughts, and reminding herself she does not need to have a conversation with her dad. Client receptive to identifying solutions for these barriers and willing to begin working on this goal. Benefited from this group by developing a short-term SMART goal related to mental health. Will continue IOP tx to increase self worth, improve daily functioning, and prevent decompensation. Narrative Note: []
--- NOTE | 2022-09-29 09:05 | BH.SGPN.GN ---
Behaviors/Verbalizations/Mental Status: [] Eye contact is good. Motor activity is appropriate. Appearance is casual. Speech is Appropriate. Mood is euthymic. Affect is full. Thoughts are linear and logical. No evidence of psychosis. Reviewed daily check in sheet and pt no reports of suicidal thoughts or intent. Client Response/Progress/Benefit: [] Pt was an active participant in group discussion. Attentive. Daily symptom tracker notes 3/5 for anxiety and 2/5 for irritability. Emotion for today is chill. Mental health wins include getting back on track. Shared that has been maintain her schedule (ADLS, cleaning, self-care, etc) and has decreased her isolation. Spen time with her support and also challenged herself to learn a new skill. Reports improved functioning, increased mood stability, and overall improved mood. Stressor is that she is set to d/c from IOP later this week which is leading to apprehensive and fear of decompensating w/o support. She does have aftercare set up with psych and counseling. Benefited from group support, encouragement, and feedback. Will continue in IOP to maintain gains and prevent decompensation/re-admission to psych unit. Narrative Note: []
--- NOTE | 2022-09-29 10:20 | BH.SGPN.GN ---
Behaviors/Verbalizations/Mental Status: []Pt alert and oriented, casually dressed and groomed. Eye contact good. Motor activity appropriate. Speech within normal limits. Affect congruent, mood anxious. Thoughts linear, logical, no signs of hallucinations or delusions. Client Response/Progress/Benefit: []Pt was an active participant AEB contributing to discussion, taking notes, and engaging in group activity. Connected with the topic of pitfalls and listened to group discussion on barriers that prevent from choosing a healthier path to mental wellness. Group worked together to identify examples of personal pitfalls and pt identified theirs as lack of awareness, emotion dysregulation, apathy, and self-doubt.? Pt benefited from group as pt learned to better identify potential barriers to improving mental health symptoms. Pt will continue IOP tx to improve confidence, challenge distortions, and prevent decompensation.
--- NOTE | 2022-09-29 11:20 | BH.SGPN.GN ---
Behaviors/Verbalizations/Mental Status: []Pt alert and oriented, neatly dressed and groomed. Eye contact good. Motor activity appropriate. Speech within normal limits. Affect congruent, mood euthymic. Thoughts linear, logical, no signs of hallucinations or delusions. Client Response/Progress/Benefit: []Pt receptive of session, engaged throughout AEB actively listening and contributing to discussion, as well as taking notes.? Pt participated in the experiential activity and did well to communicate ideas with peers and manage emotions. Pt and group processed how the emotions and perspective of the group after the break positively impacted pt. Group worked together to identify different coping skills to help manage pitfalls. Pt identified pitfalls they struggle with and shared wanting to work on pitfall of excessive rumination by utilizing healthy distractions. ?Benefited from identifying personal pitfalls and strategies to overcome these pitfalls. Pt has recently bounced back from a setback with isolating and lack of motivation. Will continue IOP tx to increase distress tolerance skills, further reduce isolation, and improve motivation. ? Narrative Note: []
--- NOTE | 2022-09-29 11:46 | BH.MDN ---
Multi-Disciplinary Note - Note 30-min Individual Time Started:: 08:33 Date: 09/29/22 Purpose of session/treatment goals addressed:: To address tx goals #1 & 2, as well as begin discharge planning and reviewing maintenance plan. Eye Contact:: Good Motor Activity:: Appropriate Appearance:: Casual Speech:: Appropriate Mood:: Euthymic, Anxious Affect:: Congruent Thoughts:: Linear, Logical, No evidence of hallucinations/delusions noted Staff Interventions:: motivational interviewing, CBT techniques, discharge planning, strengths perspective, other - began working on pt's maintenance plan. Client Response:: Pt responded well to session, open to meeting with therapist. Pt reports she is doing better than she was last week and is overall feeling less anxious. Reports beliefs this may be due in part to recent increase in her Abilify and buspar, as well as following through with the anxiety management created in last session. Proudly shared completing most of the daily activities on her weekly scheduled and felt more accomplished as a result. Pt noted she was able to actually enjoy doing the dishes and learned to make pasta salad which contributed to an overall sense of accomplishment as well. Additionally, pt described journaling when experiencing urges to consume alcohol. Stated using a prompt of ?Saying yes to drinking means saying no to..? and listed areas of her life as well as future plans/goals continuing to drink would impact. Reports a strong desire to ?break the cycle of alcoholism? in her family. 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 Pt shared that although she knows she has made much progress, she is anxious about a possible d/c from IOP tx and no longer having the supportive structured environment. Therapist normalized these concerns and discussed maintenance skill to continue to make progress as well as, returning to individual counseling, and beginning the aftercare program. Pt plans to schedule with outpatient providers and depending on when she can get into counseling services next, she with either d/c this week or next. Risks/Concerns:: Pt denies any suicidal ideations or thoughts of . Progress Toward Goals/Plan:: Pt continues to make progress on her tx goals AEB pt's self-report of improved functioning, increased motivation to complete daily tasks, reduced use of sleep as isolation, improved anxiety management, and increased willingness to pursue engaging in activities with healthy supports. Pt continues to struggle with negative thinking patterns and pt still uses avoidance when feeling anxious or apathetic, but this is less frequent than before. Pt will continue IOP tx until able to schedule with her outpatient provider either this week or next and to complete her maintenance plan. Time Stopped:: 09:07
--- NOTE | 2022-10-01 09:00 | BH.SGPN.GN ---
Behaviors/Verbalizations/Mental Status: []Eye contact is fair to good. Motor activity is restless. Appearance is casual. Speech is Appropriate. Mood is anxious and positive.. Affect is congruent. Thoughts are linear and logical. No evidence of psychosis. Reviewed daily check in sheet and denies any active SI, plan, or intent as of this date. Client Response/Progress/Benefit: []Pt responded well to session, attentive and willing to process with group. Pt noted mental health positive as graduating from IOP this week. Pt reported graduating from IOP is also a stressor because she enjoys group therapy and worries about not having the same level of support. Client reported additional mental health as managing her emotions after her sugar spiked from eating a bowl of cereal. Client stated usually when her sugar spikes she will get very anxious, but this time was able to manage it well. Benefited from supportive feedback structure of the group. Pt has made progress since starting IOP and will discharge from IOP today.
--- NOTE | 2022-10-01 10:10 | BH.SGPN.GN ---
Behaviors/Verbalizations/Mental Status: []Pt alert and oriented, neatly dressed and groomed. Eye contact good. Motor activity appropriate. Speech within normal limits. Affect congruent, mood euthymic. Thoughts linear, logical, no signs of hallucinations or delusions. Client Response/Progress/Benefit: []Pt was an active participant in group discussions and activity. Attentive during psychoeducation. Interactive discussion on the definition of perspective, how perspective is formed, and why perspective is important in treatment.? Pt along with peers also identified that perspective can either motivate and encourage treatment or be a barrier to receiving help. Pt shared she had a negative, closed off perspective when she originally started IOP tx. Pt reports her perspective today is more hopeful and pt described it as ?more loved and loving than fearful.? Pt continues to make progress in challenging her negative thought patterns. Will continue in IOP tx for one more day to establish aftercare and reinforce healthy coping skills. Narrative Note: []
--- NOTE | 2022-10-01 11:15 | BH.SGPN.GN ---
Behaviors/Verbalizations/Mental Status: [] Pt alert and oriented, casually dressed and groomed. Eye contact good. Motor activity appropriate. Speech within normal limits. Affect constricted, mood anxious and euthymic. Thoughts linear, logical, no signs of hallucinations or delusions. Client Response/Progress/Benefit: []Pt was attentive and contributed to small group discussion. Pt completed strengths exploration worksheet. Pt able to acknowledge how these strengths are helping pt and can continue to help pt in mental health journey. With some prompting pt able to reflect on how pt?s empathy, kindness, and sens of humor have helped pt in the past and continue to help pt with mental health. Pt worked with group to identify strategies that can help increase utilization of personal strengths and how to challenge one?s perspective in general. Benefited from identifying personal strengths and strategies for enhancing use of identified strengths. Pt to continue IOP tx to prevent decompensation, promote mood stability, and continue to improve consistent skill application. ? Narrative Note: []
--- NOTE | 2022-10-01 11:50 | PCM.BH.PN ---
Progress Note Progress Note: History of Present Illness/Interim History: The patient is a 27-year-old single female with a history of bipolar 1 disorder, anxiety and cluster B traits who is seen in follow-up at the [facility] behavioral health IOP program. The patient was last seen 3 weeks ago. The patient did not discuss this at the interview but on looking in the medical record the patient was seen in the emergency room on September 19 for a panic attack. EKG was normal and 1 Ativan was given in the emergency room and the panic attack resolved. The patient states that she has had some increase in anxiety over the last 2 weeks and that she had a panic attack every other day during the past week. She states that the panic attacks are not as bad as they were a few weeks ago when she went to the emergency room. She feels that her mood is now stable and that she has minimal to mild depression only. She feels she is learning valuable skills from the IOP program. She denies passive thoughts of , suicidal ideation, homicidal ideation, hallucinations or delusions. Her mother is still at home and the patient has been doing better at home because of this as the mother may have to go on disability and be unable to work. Current Psychiatric Medications: [] Abilify 30 mg p.o. nightly (increased 1 week ago by outpatient provider); lithium carbonate is being weaned and she is now taking 150 mg nightly for 7 days and then will stop lithium. She is also on BuSpar 20 mg p.o. twice daily which was increased 1 week ago. Mental Status Examination: [] The patient is a 27-year-old morbidly obese female who who is casually dressed and groomed with good hygiene. She has rainbow colored hair in the front and shaven sides. She is cooperative during the interview and has no psychomotor agitation or retardation. Eye contact is good and speech is normal rate and rhythm and fluent with no pressure. Mood is mildly depressed. Affect is constricted. Thought process is goal-directed and organized. Thought content: There is no evidence of passive thoughts of , plan for suicide, homicidal ideation, suicidal ideation, hallucinations or delusions. Reality testing is intact. Judgment is intact. Insight is limited. Impulsivity is high. Diagnoses: [] 1. Bipolar 1 disorder, most recent episode depressed, severe without psychosis (F31.4, resolving) 2. Strong cluster B traits 3. Anxiety disorder, NOS (F41.9) 4. History of ADHD 5. Alcohol use disorder 6. Primary support issues Plan: [] The patient will continue the IOP program at [facility] as the structure, support, education and group therapy will hopefully continue to prevent worsening of the patient's symptoms which could require hospitalization. She felt safe during the interview and if it anytime she does not feel safe she will let us know and go to the emergency room. The patient will continue to follow-up with her outpatient providers and no medication changes were made today. She is encouraged to continue decreasing her alcohol use. I will see the patient in follow-up in 2 weeks.
--- NOTE | 2022-10-03 09:00 | BH.SGPN.GN ---
Behaviors/Verbalizations/Mental Status: [] Eye contact is good. Motor activity is appropriate. Appearance is casual. Speech is Appropriate. Mood is euthymic. Affect is full. Thoughts are linear and logical. No evidence of psychosis. Reviewed daily check in sheet and no reports of suicidal ideations or intent. Client Response/Progress/Benefit: [] Pt was an active participant in group discussions. Attentive. Daily symptom tracker notes 08/10 for anxiety. Emotion for today is ?anxious?. Mental health wins include starting to make significant changes in her lifestyle. 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 She hopes to obtain her license and get FT work. Shared with the group that today is her last day in [facility]. Briefly discussed her progress and reports being optimistic and hopeful about the future. Benefited from group support, encouragement, and feedback. Will be discharged from [facility] today. Narrative Note: []
--- NOTE | 2022-10-03 09:41 | BH.DS_ITS ---
Discharge Summary - Demographics Date of Admission:: 08/15/22 Discharge Date: 10/03/22 Presenting Problems at Admission:: The patient is a 27-year-old single, female with a history of bipolar disorder depression who was referred to the [facility] behavioral health IOP program after being admitted to the psychiatric service at [facility] from August 07-2022 after a suicide attempt on trazodone. At that time the patient took 300 mg of trazodone as a suicide attempt. The patient also had been abusing alcohol by drinking 4 to 5 days a week and using 4-5 drinks a day when she does drink. Pt previously completed this IOP program and aftercare tx in July 2021. Reports her depression has recently been steadily worsening for the past 2-3 months, resulting in pt being on medical leave since the end of July 2022. Pt currently endorses having trouble doing her activities of daily living and has only been bathing about once every other week, lack of motivation and anhedonia, sadness, hopelessness, worthlessness, passive thoughts of and recent passive suicidal ideation without a plan. She denies suicidal ideation currently and denies plan for suicide. She has no access to lethal means or weapons or sharp objects though has a chronic hx of self-harming. Last self- harmed about 2 -3 weeks ago. She also endorses decreased concentration and low energy. Primary stressors include her cousin?s recent , her mother retu rning to work, and her relationship with her father. Pt current sx are impacting ability to function at baseline, as well as social and occupational functioning. Discharge Diagnoses:: Bipolar 1 disorder, most recent episode depressed, severe without psychosis (F31.4). 2. Cluster B traits. 3. Anxiety disorder, NOS. 4. History of ADHD, inattentive type. 5. Alcohol use disorder Reason for Discharge:: Pt has accomplished her tx goals AEB pt's reduction of DSM-5 scores, self-report of improve functioning and mood, no longer experiencing SI, and reduced isolation. Pt will continue with outpatient counseling, psychiatry, and IOP aftercare. - Treatment Progress During Treatment & Response: Pt has responded well to treatment as evidenced by Pt consistently attending IOP sessions and her reduction of DSM-5 scores since admission. Pt was always attentive and receptive to learning during group and individual sessions. Pt actively applied coping skills outside of IOP and reports overall her mood is improved and she is functioning better than she was several months ago. Pt was mostly consistent with her goals and homework and when facing a setback did well to re-engage in healthy skill which likely contributed to her reduction of symptoms. Pt?s overall symptom reduction is 63% since admission with anger decreasing by 50%, depression decreasing by 75%, suicidal ideations decreasing by 100%, and anxiety decreasing by 25%. Pt has increased self-confidence in her ability to manage anxiety, depression, and negative thinking. Issues Still to be Addressed:: Core beliefs and negative self-talk, ongoing anxiety and depression management, building healthy social connections, alcohol misuse, and daily goal setting. Discharge Recommendations/Instructions:: Pt will follow up with [place] [id number] for psychiatry and pt has an appointment next week. Pt will continue with Paulette at [place] [id number] as well for individual counseling. Pt plans to do IOP aftercare starting 10/09/22. Discharge Handout: Complete Discharge Handout with client on aftercare options and continuity of care.
--- NOTE | 2022-10-03 10:05 | BH.SGPN.GN ---
Behaviors/Verbalizations/Mental Status: [Pt alert and oriented, neatly dressed and groomed. Eye contact good. Motor activity appropriate. Speech within normal limits. Affect congruent, mood euthymic. Thoughts linear, logical, no signs of hallucinations or delusions. Client Response/Progress/Benefit: []Pt participated in group discussions. Active participant in experiential activity. Attentive during psychoeducation. Attentive as peers shared types of social supports which included; family, friends, PCP, mental health providers, support groups, pets, ourselves, community classes, etc. Attentive as group identified mental health benefits of social support but pt and peers also shared sometimes it seems like they cannot access support. Contributed as peers worked together to identify obstacles to utilizing support. Pt identified personal barriers as fear of rejection, substance use, and pride. Benefited from increased awareness of mental health benefits of social support and obstacles that prevent one from utilizing support. Will discharge from IOP tx today as pt has accomplished her tx goals and no longer meets criteria for IOP level of care. Narrative Note: []
--- NOTE | 2022-10-03 11:10 | BH.SGPN.GN ---
Behaviors/Verbalizations/Mental Status: []Client alert and oriented, casually dressed and groomed. Eye contact good. Motor activity appropriate. Speech within normal limits. Affect congruent, mood euthymic. Thoughts linear, logical, no signs of hallucinations or delusions. Client Response/Progress/Benefit: []Client was an active participant throughout AEB contributing to discussion, providing personal examples, and taking notes. Client provided input during discussion on the types of support our supports can provide. Client able to identify current support system and barriers that get in the way of using supports by drawing out their own support net. Client reported after identifying what type of supports they receive; they gained awareness that they could benefit from more informational supports. Client identified steps to achieve this by doing the anxious thing and reaching out and talking with the [facility] program regarding what to expect/resources available. Client seemed to benefit from identifying the type of support client needs to work on improving. Client to d/c on this date and recommended continued outpatient tx to prevent decompensation, maintain gains, and continue to promote mood stability. Narrative Note: []
--- NOTE | 2022-10-03 13:08 | BH.IGGP_ITS ---
Aftercare Plan - Demographics Treatment End Date:: 10/03/22 Psychiatrist:: Lluvia Curtis Psychiatrist Office #:: [phone] [facility]/IOP Therapist:: Maday Hines Therapist Phone #:: [phone] - Plan Details Progress/Aftercare Plan Details:: Rosaline has responded well to treatment as evidenced by consistently attending IOP sessions and her reduction of DSM-5 scores since admission. Rosaline was always attentive and receptive to learning during group and individual sessions. She actively applied coping skills outside of IOP and reports overall her mood is improved and she is functioning better than she was several months ago. Rosaline was consistent with her goals and homework and did well to hold herself accountable when beginning to struggle with these, which likely contributed to her reduction of symptoms. Rosaline has increased self- confidence in her ability to manage anxiety, depression, and negative thinking. Strategies for Success:: 1. Opposite action! Continue to challenge yourself to not let anxiety or depression drive your bus. 2. Set small goals each day and break down bigger stressors. 3. Continue to ask for help and advocate for yourself. 4. Challenge distorted thoughts. Remember that something can be overwhelming AND you can cope with it. 5. Keep challenging yourself to reach out to people (HEALTHY supports)6. Self-care! this means the fun and not so fun stuff. Personal hygiene is an important part of self-care! 7. Keep using your calming skills when anxious. 8. Keep a routine throughout the week- for yourself, self-care, and plans with friends. 9. Give yourself credit and write them down! 10. Be creative! - Appointments Appointments/Referrals to Other Services:: Pt will follow up with [place] [id number] for psychiatry and pt has an appointment next week. Pt will continue with Paulette at [place] [address] as well for individual counseling. Pt plans to do IOP aftercare starting 10/09/22. - Medications Home Medications: Home Medications ferrous sulfate 325 mg (65 mg iron) tablet 1 tab PO DAILY 05/16/19 cholecalciferol (vitamin D3) 125 mcg (5,000 unit) capsule 125 mcg PO DAILY supplement 05/17/19 epinephrine 0.3 mg/0.3 mL injection, auto-injector 0.3 mg (0.3 mL) IM X1 PRN Anaphylaxis ##1 05/14/20 Fenofibrate 48 mg PO DAILY 07/23/20 albuterol sulfate 2.5 mg/3 mL (0.083 %) solution for nebulization 2.5 mg inhalation PRN PRN ASTHMA 01/25/21 albuterol sulfate 90 mcg/actuation aerosol inhaler 1 puff inhalation PRN PRN ASTHMA 01/25/21 lisinopril 5 mg tablet 5 mg PO DAILY 01/25/21 aripiprazole 10 mg tablet 30 mg PO DAILY 07/16/21 promethazine 25 mg tablet 25 mg PO Q6H PRN PRN Nausea 07/16/21 pantoprazole 40 mg tablet,delayed release 40 mg PO BID 07/31/21 glimepiride 2 mg tablet 4 mg PO DAILY 01/07/22 atorvastatin 10 mg tablet 10 mg PO QHS 08/07/22 lithium carbonate 150 mg capsule 150 mg PO BREAKFAST 08/07/22 semaglutide 1 mg/dose (4 mg/3 mL) subcutaneous pen injector (Ozempic) 1 mg subcut QWEEK 08/07/22 hydroxyzine HCl 50 mg tablet 50 mg PO BID PRN PRN Anxiety 08/20/22 hydroxyzine HCl 50 mg tablet 100 mg PO QHS 08/20/22 lithium carbonate 150 mg capsule 150 mg PO QHS 08/20/22 metoprolol tartrate 75 mg tablet 75 mg PO DAILY 08/20/22
== END 2022-10-03 12:02 | disposition home or self-care (01) ==
LOC: BHIOP 08:16
PROVIDERS: PCP Family Medicine; Referring Provider Psychiatry & Neurology Psychiatry; Visit Provider Psychiatry & Neurology Psychiatry
DX: F31.4 Bipolar disorder, current episode depressed, severe, without psychotic features (principal); F41.9 Anxiety disorder, unspecified; F90.0 Attention-deficit hyperactivity disorder, predominantly inattentive type; F10.90 Alcohol use, unspecified, uncomplicated
CPT/HCPCS: S9480; 90832; 90834; 90837; 90853

== ENCOUNTER 2022-09-19 18:37 | Emergency (ER) | payer OTHER, MEDICAID, SELFPAY ==
[2022-09-19 18:38] VITALS: BP 191/96; PULSE 108; RESP 24; TEMP 35.8; O2SAT 97; BMI 69.2
--- NOTE | 2022-09-19 18:52 | EX.ED.DYSGE1 ---
HPI History of Present Illness Chief Complaint: Anxiety Narrative Narrative: 27-year-old female here for concern for panic attack, chest tightness. Notes recent change in medication. States her Atarax was changed to BuSpar because Atarax was not working. She states her last week she had intermittent panic attacks worse today. Most recent panic attack started 2 hours ago. Associated with feeling anxious, chest tightness and occasional shortness of breath. The patient denies recent surgery in the last 4 weeks or immobilization in the last 3 days, denies previous diagnosis of DVT or PE, hemoptysis, unilateral leg swelling or malignancy with treatment the last 6 months. No estrogen use noted. [facility] Medical History (Updated 09/19/22 @ 20:[address] Mason Beard, ) ADHD Anemia Anxiety disorder, unspecified Arthritis Asthma Bipolar 1 disorder Cancer Cancer Cardiology follow-up encounter Brooklyn's disease Depression Diabetes Diabetes Dietary restriction Gastric reflux GERD (gastroesophageal reflux disease) Herniated disc History of echocardiogram History of irregular heartbeat History of pain when walking History of steroid therapy Hypertriglyceridemia Injury of back Injury of head and neck Kidney stones Non-smoker Obesity Obesity Ovarian cyst PCOS (polycystic ovarian syndrome) Proteinuria due to type 2 diabetes mellitus Walker as ambulation aid Home Medications ferrous sulfate 325 mg (65 mg iron) tablet 1 tab PO DAILY 05/16/19 [History Last Taken 01/24/21 08:00] cholecalciferol (vitamin D3) 125 mcg (5,000 unit) capsule 125 mcg PO DAILY supplement 05/17/19 [History Last Taken 01/24/21 08:00] epinephrine 0.3 mg/0.3 mL injection, auto-injector 0.3 mg (0.3 mL) IM X1 PRN Anaphylaxis ##1 05/14/20 [Rx Last Taken 01/30/21 08:00] Fenofibrate 48 mg PO DAILY 07/23/20 [History Last Taken 01/30/21 08:00] albuterol sulfate 2.5 mg/3 mL (0.083 %) solution for nebulization 2.5 mg inhalation PRN PRN ASTHMA 01/25/21 [History Last Taken 01/30/21 08:00] albuterol sulfate 90 mcg/actuation aerosol inhaler 1 puff inhalation PRN PRN ASTHMA 01/25/21 [History Last Taken 01/30/21 08:00] lisinopril 5 mg tablet 5 mg PO DAILY 01/25/21 [History Last Taken 01/30/21 08:00] aripiprazole 10 mg tablet 20 mg PO DAILY 07/16/21 [History Last Taken Unknown] promethazine 25 mg tablet 25 mg PO Q6H PRN PRN Nausea 07/16/21 [History Last Taken Unknown] pantoprazole 40 mg tablet,delayed release 40 mg PO BID 07/31/21 [History Last Taken Unknown] glimepiride 2 mg tablet 4 mg PO DAILY 01/07/22 [History Last Taken Unknown] atorvastatin 10 mg tablet 10 mg PO QHS 08/07/22 [History Last Taken Unknown] lithium carbonate 150 mg capsule 150 mg PO BREAKFAST 08/07/22 [History Last Taken Unknown] semaglutide 1 mg/dose (4 mg/3 mL) subcutaneous pen injector (Ozempic) 1 mg subcut QWEEK 08/07/22 [History Last Taken Unknown] hydroxyzine HCl 50 mg tablet 50 mg PO BID PRN PRN Anxiety 08/20/22 [History Last Taken Unknown] hydroxyzine HCl 50 mg tablet 100 mg PO QHS 08/20/22 [History Last Taken Unknown] lithium carbonate 150 mg capsule 300 mg PO QHS 08/20/22 [History Last Taken Unknown] metoprolol tartrate 75 mg tablet 75 mg PO DAILY 08/20/22 [History Last Taken Unknown] Allergy/AdvReac Type Severity Reaction Status Date / Time penicillin V potassium Allergy Mild Rash Verified 09/19/22 18:38 [From Pen-Vee K] adhesive tape [plastic tape] Allergy Rash Verified 09/19/22 18:38 brompheniramine maleate Allergy Shortness Verified 09/19/22 18:38 [From Dimetapp of breath (brompheniramine-PPA)] celery Allergy Swelling Verified 09/19/22 18:38 phenylpropanolamine HCl Allergy Shortness Verified 09/19/22 18:38 [From Dimetapp of breath (brompheniramine-PPA)] amoxicillin trihydrate AdvReac Intermediate Diarrhea Verified 09/19/22 18:38 [From Augmentin] potassium clavulanate AdvReac Intermediate Diarrhea Verified 09/19/22 18:38 [From Augmentin] dicyclomine HCl [From Bentyl] AdvReac Nausea/Vom/ Verified 09/19/22 18:38 Diarrhea fructose AdvReac Nausea/Vom/ Verified 09/19/22 18:38 Diarrhea sertraline [From Zoloft] AdvReac Other Verified 09/19/22 18:38 Family History Father Diabetes Mother Hypertension Grandmother Breast cancer 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 H/O endoscopy H/O oophorectomy H/O ovarian cystectomy H/O partial adrenalectomy H/O wisdom tooth extraction History of adrenal surgery History of back surgery History of tonsillectomy and adenoidectomy Hx of cholecystectomy Social History household members: family Smoking Status: Never smoker alcohol intake: current alcohol intake frequency: a few times a month substance use type: does not use seatbelt use: always do you feel safe at home: Yes ROS ROS ED ROS Narrative Constitutional: Denies fever HEENT: Denies sore throat Neck: Denies neck pain Cardiovascular: Denies chest pain, syncope Respiratory: Denies shortness of breath GI: Denies nausea vomiting or abdominal pain : Denies changes in urinary habits Musculoskeletal: Denies muscle or joint pain Neurologic: Denies numbness weakness or loss of sensation Skin denies rash Psych: Anxiety, panic attack, no SI, HI, auditory visual hallucinations EXAM Physical Exam Narrative Exam Narrative: Nursing triage notes reviewed, Vital signs reviewed Constitutional: please see mdm HENT: MMM Eyes: Pupils equal round and reactive to light, Extraocular muscles intact Neck: No stridor, no JVD, full neck ROM Lungs: Clear to auscultation, No wheezing or rales. No increased work of breathing, no conversational dyspnea, no accessory muscle use, no nasal flaring. No respiratory distress noted Heart: Regular rate and rhythm, No murmurs, No rubs and No gallops, 2+ distal pulses (radial, femoral, posterior tibial) in all extremities Abdomen: Soft, there is no tenderness, rigidity, rebound or guarding, no obvious peritoneal signs, no palpable pulsatile abdominal masses, no auscultated abdominal bruit : No CVAT Extremities: No edema Neuro: No focal neurological deficits, cranial nerves II through XII intact, 5/5 strength in all extremities. Intact sensation to light touch in all extremities, 2+ reflexes bilateral patella dens. Normal gait. No ataxia. Skin: No rash or lesions noted Const Vital Signs: 09/19/22 18:38 Temperature 96.5 F L Temperature Source Temporal Pulse Rate 108 H Respiratory Rate 24 H Blood Pressure 191/96 H Blood Pressure Mean 127 Pulse Ox 97 Oxygen Delivery Method Room Air MDM MDM MDM Narrative Medical decision making narrative: Chief Complaint: Anxiety External records reviewed: Last ED visit in August 2022 for suicidal ideation Patient is currently on lithium, hydroxyzine I considered the following differential diagnosis: Anxiety, pain attack, psychosis, decompensated bipolar disorder Gave the patient 2 mg of p.o. Ativan. I checked EKG because she complained of chest tightness associated with anxiety. EKG showed no evidence of arrhythmia or myocardial ischemia. The patient improved after Ativan she was discharged with a prescription for Atarax and with instructions to follow-up with her psychiatrist at the next available appointment for further evaluation and outpatient management. She denied any suicidal ideation, homicidal ideation, auditory visual hallucinations. She states he is compliant with lithium. There is no evidence of decompensated psychosis or decompensated bipolar disorder at this time Factors affecting care: History of mental health disturbance Social determinants of health: Bipolar disorder History obtained from others: Shared decision making: I will have a discussion with the patient and or visitors regarding risk/benefits of further testing or admission. They will be made aware of of the risk/benefits inherent in this decision they will be given the opportunity to voice understanding. Consults: None Discharge Plan Triage Chief Complaint: Anxiety ED Provider: Mason Beard Dx/Rx/DC Orders Clinical Impression: Anxiety Instructions: ED Anxiety Reaction Prescriptions: No Action glimepiride 2 mg tablet 4 mg PO DAILY Label Comments: TAKE 1 TABLET BY MOUTH ONCE DAILY WITH BREAKFAST ferrous sulfate 325 MG tablet 1 tab PO DAILY Label Comments: TAKE 1 TABLET BY MOUTH ONCE DAILY WITH BREAKFAST cholecalciferol (vitamin D3) 125 MCG capsule 125 mcg PO DAILY epinephrine 0.3 MG syringe 0.3 mg IM X1 PRN (Reason: Anaphylaxis) Qty: 1 0RF Fenofibrate 48 mg PO DAILY albuterol sulfate 2.5 mg /3 mL (0.083 %) solution for nebulization 2.5 mg inhalation PRN PRN (Reason: ASTHMA) Label Comments: INHALE 1 VIAL VIA NEBULIZER EVERY 6 HOURS NEEDED FOR SHORTNESS OF BREATH AND WHEEZING lisinopril 5 mg tablet 5 mg PO DAILY Label Comments: TAKE 1 TABLET BY MOUTH ONCE DAILY albuterol sulfate 90 mcg/actuation HFA aerosol inhaler 1 puff INHALATION PRN PRN (Reason: ASTHMA) Label Comments: INHALE TWO(2) PUFFS INTO LUNGS EVERY SIX(6) HOURS NEEDED FOR SHORTNESS OF BREATH AND WHEEZING promethazine 25 mg tablet 25 mg PO Q6H PRN PRN (Reason: Nausea) Label Comments: TAKE (1) TABLET BY MOUTH EVERY 6 HOURS NEEDED FOR NAUSEA/VOMITING aripiprazole 10 mg tablet 20 mg PO DAILY Label Comments: TAKE 1 TABLET BY MOUTH EVERY DAY AT BEDTIME pantoprazole 40 mg Tablet,Delayed Release (Dr/Ec) 40 mg PO BID atorvastatin 10 mg tablet 10 mg PO QHS Label Comments: TAKE 1 TABLET BY MOUTH ONCE DAILY AT BEDTIME FOR CHOLESTEROL lithium carbonate 150 mg capsule 150 mg PO BREAKFAST Ozempic 1 mg/dose (4 mg/3 mL) pen injector 1 mg SUBCUT QWEEK lithium carbonate 150 mg Capsule 300 mg PO QHS hydroxyzine HCl 50 mg Tablet 100 mg PO QHS hydroxyzine HCl 50 mg Tablet 50 mg PO BID PRN PRN (Reason: Anxiety) metoprolol tartrate 75 mg Tablet 75 mg PO DAILY Stand Alone Forms: ED Work / School Excuse Primary Care Provider: Miguelito Unger Referrals: Miguelito Unger MD [Primary Care Provider] - Activity Restrictions/Additional Instructions: Please return if you develop suicidal ideation, homicidal ideation, auditory visual hallucinations. Please follow with your psychiatrist next billable appointment. Disposition Disposition: Home, Self Care Discharge Date/Time: 09/19/22 21:25
--- NOTE | 2022-09-19 19:06 | EKG12_ITS ---
Test Reason : CP Blood Pressure : / mmHG Vent. Rate : 097 BPM Atrial Rate : 000 BPM P-R Int : 000 ms QRS Dur : 092 ms QT Int : 368 ms P-R-T Axes : 000 -12 -07 degrees QTc Int : 467 ms Normal sinus rhythm Inferior infarct , age undetermined Possible Anterior infarct , age undetermined Abnormal ECG Confirmed by TAY ASTORGA ([id number]), editorial manager KRISTIE CARRERO ([id number]) on 09/23/2022 7:55:14 AM Referred By: Confirmed By:TAY ASTORGA
[2022-09-19] MEDS: LORazepam 1 MG Tablet 2 MG PO (19:33)
== END 2022-09-19 21:25 | disposition home or self-care (01) ==
PROVIDERS: Emergency Provider Emergency Medicine; PCP Family Medicine; Visit Provider Emergency Medicine
DX: F41.9 Anxiety disorder, unspecified (principal)
CPT/HCPCS: 93005; 99283

== ENCOUNTER 2022-10-09 08:00 | Outpatient (RCR) | payer OTHER, MEDICAID, SELFPAY ==
--- NOTE | 2022-10-09 13:36 | BH.MTP ---
Master Treatment Plan - Patient Information Program Physician:: Dr. Lluvia Rodriguez Primary Therapist:: MAURY Mckeon - Psychiatric Diagnoses Psychiatric Diagnoses:: Bipolar 1 disorder, most recent episode depressed, severe without psychosis (F31.4). 2. Cluster B traits. 3. Anxiety disorder, NOS. 4. History of ADHD, inattentive type. 5. Alcohol use disorder Diagnosis Code(s):: F 31.4 - Estimated LOS Estimated LOS (in weeks):: 8 Problem/Goal #1 - Problem/Goal #1 Stated Goal:: Client will maintain or see a reduction in symptoms AEB client score on the DSM 5 cross-cutting measure and improve client's daily functioning. - Objectives Objective #1 Stated Objective: Client will continue to consistently apply healthy coping skills to maintain progress made in IOP tx. Interventions: Through group therapy, client will review warning signs and triggers as well as healthy coping skills learned in IOP tx to successfully maintain gains while transitioning into outpatient therapy. Discharge Criteria: Client will have accomplished this goal when client's score on the DSM-5 cross-cutting measure has either maintained or reduced over an 8 week period. Target Date: 11/27/22 Review Date: 10/30/22 Objective #2 Stated Objective: Client will learn and utilize 2-3 maintenance strategies to prevent decompensation from original IOP DSM-5 scores. Interventions: Through group therapy, client will be provided with education on healthy maintenance behaviors, relapse prevention techniques, and healthy coping strategies. Discharge Criteria: Client will have accomplished this goal when can report using at least 2 maintenance skills to prevent decompensation compared to original IOP DSM-5 scores Target Date: 11/27/22 Review Date: 10/30/22
--- NOTE | 2022-10-09 14:00 | BH.SGPN.GN ---
Behaviors/Verbalizations/Mental Status: []Client alert and oriented, casually dressed and groomed. Eye contact fair to good. Motor activity appropriate. Speech within normal limits. Affect congruent, mood euthymic and anxious. Thoughts linear, logical, no signs of hallucinations or delusions. Client Response/Progress/Benefit: []Receptive of session, engaged throughout. Pt reports she has remained consistent in attending outpatient counseling and psychiatry appointments, as well as maintaining medication compliance. Noted use of journaling, opposite action, and deep breathing as coping skills aiding in ongoing mental health maintenance. Engaged and attentive during discussion of vulnerability and benefits of practicing vulnerability. Shared being vulnerable has not been easy for her as she struggles with fear of rejection and embarrassment. Group discussed ways we avoid feeling vulnerable and how this negatively affects mental health and relationships. Appeared to benefit from group support and discussion reflecting on the positive impact vulnerability can have on mental health. Identified plans to challenge herself to post a video on [employer] as a way in which she could practice being vulnerable in the next week. Pt will continue with aftercare tx to maintain gains and prevent decompensation. Narrative Note: []
--- NOTE | 2022-10-16 14:00 | BH.SGPN.GN ---
Behaviors/Verbalizations/Mental Status: []Client alert and oriented, casual in appearance. Eye contact good. Motor activity appropriate. Speech within normal limits. Affect congruent. Mood euthymic. Thoughts linear, logical, no signs of hallucinations or delusions Client Response/Progress/Benefit: []Pt responded well to session AEB providing input throughout and listening attentively to others. Pt reported meeting with outpatient counselor today and has a psychiatry appointment for next week. Reports taking medications as prescribed. Pt identified several coping skills she has been using over the past week to continue to manage mental health sx, which included: deep breathing, opposite action, and journaling. Pt connected with self-reflection discussion. Worked with group to identify the benefits of self-reflection. Appeared to benefit from identifying how to incorporate self-reflection into daily life. Pt completed aftercare specific self-reflection activity and indicated she has seen continued progress in maintaining a consistent schedule but would like to continue to focus on making improvements in following through with daily cleaning goals. Willing to complete weekly self-reflection assignment for homework, identifying plans to journal. Pt to continue aftercare to maintain gains and prevent decompensation. Narrative Note: []
--- NOTE | 2022-10-23 14:00 | BH.SGPN.GN ---
Behaviors/Verbalizations/Mental Status: []Pt alert and oriented, neatly dressed and groomed. Eye contact good. Motor activity appropriate. Speech within normal limits. Affect congruent, mood anxious and happy. Thoughts linear, logical, no signs of hallucinations or delusions. Client Response/Progress/Benefit: []Pt receptive of session, engaged throughout. Pt shared they have been consistent with their medications and they have been maintaining appointments with their outpatient mental health providers. Pt reports using self-care, deep breathing, crying, and doing word searches to cope with stressors and negative thoughts. Receptive of discussion on sitting with the uncomfortable and emotional urges. Pt contributed to the discussion of distress tolerance including benefits and pt identified personal examples of what happens if their distress tolerance is low. Pt shared to improve distress tolerance, pt is going to work on turning the TV volume to a different number, which will trigger anxiety, but not changing it for five minutes. Pt seemed to benefit from support from peers and increasing understanding of distress tolerance. Will continue IOP aftercare to reinforce healthy coping skills and maintain gains. Narrative Note: []
== END 2022-11-05 23:59 ==
LOC: BHOG 08:00
PROVIDERS: PCP Family Medicine; Referring Provider Psychiatry & Neurology Psychiatry; Visit Provider Psychiatry & Neurology Psychiatry
DX: F31.4 Bipolar disorder, current episode depressed, severe, without psychotic features (principal); F41.9 Anxiety disorder, unspecified; F10.90 Alcohol use, unspecified, uncomplicated; F90.0 Attention-deficit hyperactivity disorder, predominantly inattentive type
CPT/HCPCS: 90853

== ENCOUNTER 2022-10-22 12:40 | Emergency (ER) | payer OTHER, MEDICAID, SELFPAY ==
[2022-10-22 12:41] VITALS: BP 164/101; PULSE 116; RESP 18; TEMP 37; O2SAT 99; BMI 65.0
--- NOTE | 2022-10-22 13:34 | CM.ED ---
Social Work Referral Source: case find Referral Reason: care plan SW provided MD Chavarria with copy of care plan and reviewed possible obstacles and solutions. MD reports understanding and will consult with LEONARDO if needs arise. Minnie DREW, MAURY
--- NOTE | 2022-10-22 13:48 | EX.ED.DYSGE1 ---
HPI History of Present Illness Chief Complaint: Allergic Reaction Informant: patient and parent (mother) Narrative Narrative: Patient awoke this morning with pruritus around her eyes, and itchy sore hives that have cropped up relatively suddenly in different areas since. Upon waking up they immediately went to urgent care given that she is reacting to something and was given prednisone 40 mg as well as a prescription for another 4-day supply, as well as some steroid cream for her eyelids. She took some Benadryl couple hours ago, but she had another group of hives crop up on her left arm pretty suddenly within the last hour. Also has developed some mild chest tightness that feels similar to asthma but she is not wheezing. She does have a history of asthma. She has not denied any peripheral swelling in hands or feet or recent cough or fevers, nor has she had any near-syncope or syncope or any other systemic symptoms. Does not have an albuterol inhaler, I cannot find it. Mom states she has a new medication she started taking 2 weeks ago, and she also just switched detergents and is suspicious that may be the case here. [facility] Medical History ADHD Anemia Anxiety disorder, unspecified Arthritis Asthma Bipolar 1 disorder Cancer Cancer Cardiology follow-up encounter [place]'s disease Depression Diabetes Diabetes Dietary restriction Gastric reflux GERD (gastroesophageal reflux disease) Herniated disc History of echocardiogram History of irregular heartbeat History of pain when walking History of steroid therapy Hypertriglyceridemia Injury of back Injury of head and neck Kidney stones Non-smoker Obesity Obesity Ovarian cyst PCOS (polycystic ovarian syndrome) Proteinuria due to type 2 diabetes mellitus Walker as ambulation aid Home Medications ferrous sulfate 325 mg (65 mg iron) tablet 1 tab PO DAILY 05/16/19 [History Last Taken 01/24/21 08:00] cholecalciferol (vitamin D3) 125 mcg (5,000 unit) capsule 125 mcg PO DAILY supplement 05/17/19 [History Last Taken 01/24/21 08:00] epinephrine 0.3 mg/0.3 mL injection, auto-injector 0.3 mg (0.3 mL) IM X1 PRN Anaphylaxis ##1 05/14/20 [Rx Last Taken 01/30/21 08:00] Fenofibrate 48 mg PO DAILY 07/23/20 [History Last Taken 01/30/21 08:00] albuterol sulfate 2.5 mg/3 mL (0.083 %) solution for nebulization 2.5 mg inhalation PRN PRN ASTHMA 01/25/21 [History Last Taken 01/30/21 08:00] lisinopril 5 mg tablet 5 mg PO DAILY 01/25/21 [History Last Taken 01/30/21 08:00] aripiprazole 10 mg tablet 30 mg PO DAILY 07/16/21 [History Last Taken Unknown] promethazine 25 mg tablet 25 mg PO Q6H PRN PRN Nausea 07/16/21 [History Last Taken Unknown] pantoprazole 40 mg tablet,delayed release 40 mg PO BID 07/31/21 [History Last Taken Unknown] glimepiride 2 mg tablet 4 mg PO DAILY 01/07/22 [History Last Taken Unknown] atorvastatin 10 mg tablet 10 mg PO QHS 08/07/22 [History Last Taken Unknown] lithium carbonate 150 mg capsule 150 mg PO BREAKFAST 08/07/22 [History Last Taken Unknown] semaglutide 1 mg/dose (4 mg/3 mL) subcutaneous pen injector (Ozempic) 1 mg subcut QWEEK 08/07/22 [History Last Taken Unknown] hydroxyzine HCl 50 mg tablet 50 mg PO BID PRN PRN Anxiety 08/20/22 [History Last Taken Unknown] hydroxyzine HCl 50 mg tablet 100 mg PO QHS 08/20/22 [History Last Taken Unknown] lithium carbonate 150 mg capsule 150 mg PO QHS 08/20/22 [History Last Taken Unknown] metoprolol tartrate 75 mg tablet 75 mg PO DAILY 08/20/22 [History Last Taken Unknown] albuterol sulfate 90 mcg/actuation aerosol inhaler 2 puff inhalation PRN PRN ASTHMA #6.7 grams 10/22/22 [Rx Last Taken Unknown] Allergy/AdvReac Type Severity Reaction Status Date / Time penicillin V potassium Allergy Mild Rash Verified 10/22/22 12:44 [From Pen-Vee K] adhesive tape [plastic tape] Allergy Rash Verified 10/22/22 12:44 brompheniramine maleate Allergy Shortness Verified 10/22/22 12:44 [From Dimetapp of breath (brompheniramine-PPA)] celery Allergy Swelling Verified 10/22/22 12:44 phenylpropanolamine HCl Allergy Shortness Verified 10/22/22 12:44 [From Dimetapp of breath (brompheniramine-PPA)] amoxicillin trihydrate AdvReac Intermediate Diarrhea Verified 10/22/22 12:44 [From Augmentin] potassium clavulanate AdvReac Intermediate Diarrhea Verified 10/22/22 12:44 [From Augmentin] dicyclomine HCl [From Bentyl] AdvReac Nausea/Vom/ Verified 10/22/22 12:44 Diarrhea fructose AdvReac Nausea/Vom/ Verified 10/22/22 12:44 Diarrhea sertraline [From Zoloft] AdvReac Other Verified 10/22/22 12:44 Family History Father Diabetes Mother Hypertension Grandmother Breast cancer 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 H/O endoscopy H/O oophorectomy H/O ovarian cystectomy H/O partial adrenalectomy H/O wisdom tooth extraction History of adrenal surgery History of back surgery History of tonsillectomy and adenoidectomy Hx of cholecystectomy Social History household members: family Smoking Status: Never smoker alcohol intake: current alcohol intake frequency: a few times a month substance use type: does not use seatbelt use: always do you feel safe at home: Yes ROS ROS ED Constitutional Constitutional ED: Denies chills or fever(s) Eyes Eyes: Denies change in vision or diplopia ENT ENT ED: Denies rhinorrhea or sore throat Cardiovascular Cardiovascular: Reports chest pain; Denies palpitations Respiratory/Chest Respiratory/Chest: Denies cough or dyspnea Gastrointestinal Gastrointestinal: Denies abdominal pain, diarrhea, nausea or vomiting Genitourinary Genitourinary ED: Denies dysuria or hematuria Musculoskeletal Musculoskeletal: Denies back pain or neck pain Integumentary Reports pruritus and rash; Denies abscess Neurologic Neurologic: Denies headache(s), paresthesias or weakness Psychiatric Psychiatric: Denies anxiety or suicidal thoughts EXAM Physical Exam Const Vital Signs: 10/22/22 12:41 Temperature 98.6 F Temperature Source Temporal Pulse Rate 116 H Respiratory Rate 18 Blood Pressure 164/101 H Blood Pressure Mean 122 Pulse Ox 99 Oxygen Delivery Method Room Air Positive well nourished, well developed and obese General Appearance ED: well developed and NAD Nutritional Appearance: obese HEENT Reports moist mucous membranes normocephalic and atraumatic Eyes PERRL and EOMs intact bilaterally Eyes Narrative: Mild erythema eyelids nothing focal Neck full ROM and supple Chest Wall palpation of chest normal Chest Narrative: Scattered urticaria upper chest/breasts. Nontender Resp normal respiratory effort and clear to auscultation bilaterally Cardio regular rate, regular rhythm and no murmurs GI non-tender and non-distended Auscultation: normoactive bowel sounds Palpation: soft Back/Spine no CVA tenderness General Back: other FROM Extremity Extremity Narrative: Scattered nontender urticaria some of which have blanching centers on upper extremities but not lower. No edema. General Extremety ED: Negative for edema, pulses abnormal or tenderness General Extremity: Negative for edema or pulses abnormal Neuro oriented x3, CN's II-XII intact bilaterally and no sensory deficits noted Sensorium / Orientation: awake and alert Motor Exam: strength 5/5 throughout Skin no wounds Skin Narrative: Urticaria chest wall bilateral upper extremities MDM MDM MDM Narrative Medical decision making narrative: Already received prednisone, reassured that we will take some time for it at the start working since she is here only 3 to 4 hours after the first dose was given. She took Benadryl earlier, she is not extremely pruritic so I do not think she needs another dose of that. She was given an albuterol treatment here, that did resolve her chest discomfort, and I will give her a prescription for an albuterol inhaler; she already has vials for her neb machine at home. Advised to continue the steroid cream and prednisone as prescribed, and to avoid the new detergent which is probably the cause of this. She is not anaphylactic or having any other dangerous symptoms right now, I do not think she needs an EKG or other work-up given that an allergic reaction could certainly exac her asthma. Discharge Plan Triage Chief Complaint: Allergic Reaction ED Provider: Wilamn Chavarria Dx/Rx/DC Orders Clinical Impression: Allergic reaction to detergent, Acute asthma exacerbation Instructions: ED General Allergic Reactions, ED Asthma, Acute (Adult) Prescriptions: Continued glimepiride 2 mg tablet 4 mg PO DAILY Label Comments: TAKE 1 TABLET BY MOUTH ONCE DAILY WITH BREAKFAST ferrous sulfate 325 MG tablet 1 tab PO DAILY Label Comments: TAKE 1 TABLET BY MOUTH ONCE DAILY WITH BREAKFAST cholecalciferol (vitamin D3) 125 MCG capsule 125 mcg PO DAILY epinephrine 0.3 MG syringe 0.3 mg IM X1 PRN (Reason: Anaphylaxis) Qty: 1 0RF Fenofibrate 48 mg PO DAILY albuterol sulfate 2.5 mg /3 mL (0.083 %) solution for nebulization 2.5 mg inhalation PRN PRN (Reason: ASTHMA) Label Comments: INHALE 1 VIAL VIA NEBULIZER EVERY 6 HOURS NEEDED FOR SHORTNESS OF BREATH AND WHEEZING lisinopril 5 mg tablet 5 mg PO DAILY Label Comments: TAKE 1 TABLET BY MOUTH ONCE DAILY promethazine 25 mg tablet 25 mg PO Q6H PRN PRN (Reason: Nausea) Label Comments: TAKE (1) TABLET BY MOUTH EVERY 6 HOURS NEEDED FOR NAUSEA/VOMITING aripiprazole 10 mg tablet 30 mg PO DAILY Label Comments: TAKE 1 TABLET BY MOUTH EVERY DAY AT BEDTIME pantoprazole 40 mg Tablet,Delayed Release (Dr/Ec) 40 mg PO BID atorvastatin 10 mg tablet 10 mg PO QHS Label Comments: TAKE 1 TABLET BY MOUTH ONCE DAILY AT BEDTIME FOR CHOLESTEROL lithium carbonate 150 mg capsule 150 mg PO BREAKFAST Ozempic 1 mg/dose (4 mg/3 mL) pen injector 1 mg SUBCUT QWEEK lithium carbonate 150 mg Capsule 150 mg PO QHS Label Comments: stop lithium in 7 days hydroxyzine HCl 50 mg Tablet 100 mg PO QHS hydroxyzine HCl 50 mg Tablet 50 mg PO BID PRN PRN (Reason: Anxiety) metoprolol tartrate 75 mg Tablet 75 mg PO DAILY Changed albuterol sulfate 90 mcg/actuation HFA aerosol inhaler 2 puff INHALATION PRN PRN (Reason: ASTHMA) Qty: 6.7 0RF Primary Care Provider: Miguelito Unger Referrals: Miguelito Unger MD [Primary Care Provider] - 3-5 Days if not improving Activity Restrictions/Additional Instructions: Take the prescribed prednisone and cream as directed. Avoid the new detergent that is likely the cause of your reaction. Disposition Disposition: Home, Self Care
[2022-10-22] MEDS: Albuterol 2.5 MG/3 ML VIAL.NEB. INHALATION (13:50)
[2022-10-22 13:51] VITALS: PULSE 120; RESP 23
[2022-10-22 13:55] VITALS: BP 112/69; PULSE 107; RESP 18; O2SAT 96
== END 2022-10-22 14:14 | disposition home or self-care (01) ==
PROVIDERS: Emergency Provider Emergency Medicine; PCP Family Medicine; Visit Provider Emergency Medicine
DX: T78.40XA Allergy, unspecified, initial encounter (principal); J45.901 Unspecified asthma with (acute) exacerbation; E66.9 Obesity, unspecified; X58.XXXA Exposure to other specified factors, initial encounter
CPT/HCPCS: 94640; 99282

== ENCOUNTER 2022-10-27 17:52 | Emergency (ER) | payer OTHER, MEDICAID, SELFPAY ==
[2022-10-27 17:52] VITALS: BP 142/97; PULSE 103; RESP 18; TEMP 36.4; O2SAT 97; BMI 66.9
--- NOTE | 2022-10-27 18:10 | EDS_ITS ---
HPI History of Present Illness Chief Complaint: Hyperglycemia Informant: patient Narrative Narrative: Patient presents because of her blood sugar above 400 today. For the last couple days she has had urinary frequency. She is a type II diabetic, she is not on insulin, she was seen here this past week because she was having hives due to changing detergents, she and I suspected. She stopped that, she still had the hives although she had no worsening, she went to urgent care and they put her on prednisone. She states that the fourth day of the prednisone she still had hives she went to her PCP and they put her on prednisone, now she is tapering and she thinks she is on 3 pills for today ready to change down to 2 pills/day, and she is having high blood sugars likely as a result. She denies any dyspnea, the rash is gone. No other systemic symptoms. No lightheadedness or feeling dehydrated. [facility] Medical History ADHD Anemia Anxiety disorder, unspecified Arthritis Asthma Bipolar 1 disorder Cancer Cancer Cardiology follow-up encounter [place]'s disease Depression Diabetes Diabetes Dietary restriction Gastric reflux GERD (gastroesophageal reflux disease) Herniated disc History of echocardiogram History of irregular heartbeat History of pain when walking History of steroid therapy Hypertriglyceridemia Injury of back Injury of head and neck Kidney stones Non-smoker Obesity Obesity Ovarian cyst PCOS (polycystic ovarian syndrome) Proteinuria due to type 2 diabetes mellitus Walker as ambulation aid Home Medications ferrous sulfate 325 mg (65 mg iron) tablet 1 tab PO DAILY 05/16/19 [History Last Taken 01/24/21 08:00] cholecalciferol (vitamin D3) 125 mcg (5,000 unit) capsule 125 mcg PO DAILY supplement 05/17/19 [History Last Taken 01/24/21 08:00] epinephrine 0.3 mg/0.3 mL injection, auto-injector 0.3 mg (0.3 mL) IM X1 PRN Anaphylaxis ##1 05/14/20 [Rx Last Taken 01/30/21 08:00] Fenofibrate 48 mg PO DAILY 07/23/20 [History Last Taken 01/30/21 08:00] albuterol sulfate 2.5 mg/3 mL (0.083 %) solution for nebulization 2.5 mg inhalation PRN PRN ASTHMA 01/25/21 [History Last Taken 01/30/21 08:00] lisinopril 5 mg tablet 5 mg PO DAILY 01/25/21 [History Last Taken 01/30/21 08:00] aripiprazole 10 mg tablet 30 mg PO DAILY 07/16/21 [History Last Taken Unknown] promethazine 25 mg tablet 25 mg PO Q6H PRN PRN Nausea 07/16/21 [History Last Taken Unknown] pantoprazole 40 mg tablet,delayed release 40 mg PO BID 07/31/21 [History Last Taken Unknown] glimepiride 2 mg tablet 4 mg PO DAILY 01/07/22 [History Last Taken Unknown] atorvastatin 10 mg tablet 10 mg PO QHS 08/07/22 [History Last Taken Unknown] lithium carbonate 150 mg capsule 150 mg PO BREAKFAST 08/07/22 [History Last Taken Unknown] semaglutide 1 mg/dose (4 mg/3 mL) subcutaneous pen injector (Ozempic) 1 mg subcut QWEEK 08/07/22 [History Last Taken Unknown] hydroxyzine HCl 50 mg tablet 50 mg PO BID PRN PRN Anxiety 08/20/22 [History Last Taken Unknown] hydroxyzine HCl 50 mg tablet 100 mg PO QHS 08/20/22 [History Last Taken Unknown] lithium carbonate 150 mg capsule 150 mg PO QHS 08/20/22 [History Last Taken Unknown] metoprolol tartrate 75 mg tablet 75 mg PO DAILY 08/20/22 [History Last Taken Unknown] albuterol sulfate 90 mcg/actuation aerosol inhaler 2 puff inhalation PRN PRN ASTHMA #6.7 grams 10/22/22 [Rx Last Taken Unknown] Allergy/AdvReac Type Severity Reaction Status Date / Time penicillin V potassium Allergy Mild Rash Verified 10/27/22 17:55 [From Pen-Vee K] adhesive tape [plastic tape] Allergy Rash Verified 10/27/22 17:55 brompheniramine maleate Allergy Shortness Verified 10/27/22 17:55 [From Dimetapp of breath (brompheniramine-PPA)] celery Allergy Swelling Verified 10/27/22 17:55 phenylpropanolamine HCl Allergy Shortness Verified 10/27/22 17:55 [From Dimetapp of breath (brompheniramine-PPA)] amoxicillin trihydrate AdvReac Intermediate Diarrhea Verified 10/27/22 17:55 [From Augmentin] potassium clavulanate AdvReac Intermediate Diarrhea Verified 10/27/22 17:55 [From Augmentin] dicyclomine HCl [From Bentyl] AdvReac Nausea/Vom/ Verified 10/27/22 17:55 Diarrhea fructose AdvReac Nausea/Vom/ Verified 10/27/22 17:55 Diarrhea sertraline [From Zoloft] AdvReac Other Verified 10/27/22 17:55 Family History Father Diabetes Mother Hypertension Grandmother Breast cancer 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 H/O endoscopy H/O oophorectomy H/O ovarian cystectomy H/O partial adrenalectomy H/O wisdom tooth extraction History of adrenal surgery History of back surgery History of tonsillectomy and adenoidectomy Hx of cholecystectomy Social History household members: family Smoking Status: Never smoker alcohol intake: current alcohol intake frequency: a few times a month substance use type: does not use seatbelt use: always do you feel safe at home: Yes ROS ROS ED Constitutional Constitutional ED: Denies chills or fever(s) Eyes Eyes: Denies change in vision or diplopia ENT ENT ED: Denies rhinorrhea or sore throat Cardiovascular Cardiovascular: Denies chest pain or palpitations Respiratory/Chest Respiratory/Chest: Denies cough or dyspnea Gastrointestinal Gastrointestinal: Denies abdominal pain, diarrhea, nausea or vomiting Genitourinary Genitourinary ED: Reports urinary frequency; Denies dysuria or hematuria Musculoskeletal Musculoskeletal: Denies back pain or neck pain Integumentary Denies abscess, pruritus or rash Neurologic Neurologic: Denies headache(s), paresthesias or weakness Psychiatric Psychiatric: Denies anxiety or suicidal thoughts EXAM Physical Exam Const Vital Signs: 10/27/22 17:52 10/27/22 18:34 Temperature 97.5 F L Temperature Source Temporal Pulse Rate 103 H Respiratory Rate 18 Respiratory Effort Normal Non-Labored Respiratory Pattern Normal Blood Pressure 142/97 H Blood Pressure Mean 112 Pulse Ox 97 Oxygen Delivery Method Room Air Positive well nourished, well developed and obese General Appearance ED: well developed and NAD Nutritional Appearance: obese HEENT Reports moist mucous membranes normocephalic and atraumatic Eyes PERRL and EOMs intact bilaterally Neck full ROM and supple Resp normal respiratory effort and clear to auscultation bilaterally Cardio regular rate, regular rhythm and no murmurs Rate: tachycardic GI non-tender and non-distended Auscultation: normoactive bowel sounds Palpation: soft Back/Spine no CVA tenderness General Back: other FROM Extremity normal to inspection General Extremety ED: Negative for edema, pulses abnormal or tenderness General Extremity: Negative for edema or pulses abnormal Neuro oriented x3, CN's II-XII intact bilaterally, no sensory deficits noted and gait normal Sensorium / Orientation: awake and alert Motor Exam: strength 5/5 throughout Psych mental status grossly normal Skin no rashes or lesions noted and no wounds MDM MDM MDM Narrative Medical decision making narrative: I checked a chemistry panel, her anion gap is within normal limits, blood sugar elevated in the 400s. She was given insulin, and we monitor her sugars. We checked a urinalysis, shows glycosuria but no signs of infection. I reevaluated several hours after the insulin she is down to 220. She feels well. I do not think she needs IV fluids and she is stable for discharge home. I explained to them that since she does not have the rash anymore, they are not sure exactly how long she has been on prednisone right now, if it has been 1 week / 7 days or less, she may stop it without further tapering. Otherwise I would try to hasten the taper. Lab Data Attestation: I reviewed the patient's lab results. Labs: Laboratory Results - last 24 hr 10/27/22 10/27/22 10/27/22 18:22 18:30 18:35 Sodium 138 Potassium 4.3 Chloride 102 Carbon Dioxide 25.0 Anion Gap 11 BUN 15 Creatinine 0.84 Estim Creat Clear Calc 103.28 Est GFR (MDRD) Af Amer 105 Est GFR (MDRD) Non-Af 87 BUN/Creatinine Ratio 17.8 Glucose 330 H Calcium 9.9 Urine Color Yellow Urine Clarity Clear Urine pH 6.5 Ur Specific [place] 1.010 Urine Protein Negative Urine Glucose (UA) 1000 H Urine Ketones Negative Urine Occult Blood 150 H Urine Nitrite Negative Urine Bilirubin Negative Urine Urobilinogen Normal Ur Leukocyte Esterase Negative Urine RBC 0-5 SEEN Urine WBC 0-5 SEEN Ur Squamous Epith Cells 0-5 SEEN Urine Bacteria 0 SEEN Urine Mucus 0 SEEN POC Glucose 336 H 10/27/22 20:21 Sodium Potassium Chloride Carbon Dioxide Anion Gap BUN Creatinine Estim Creat Clear Calc Est GFR (MDRD) Af Amer Est GFR (MDRD) Non-Af BUN/Creatinine Ratio Glucose Calcium Urine Color Urine Clarity Urine pH Ur Specific [place] Urine Protein Urine Glucose (UA) Urine Ketones Urine Occult Blood Urine Nitrite Urine Bilirubin Urine Urobilinogen Ur Leukocyte Esterase Urine RBC Urine WBC Ur Squamous Epith Cells Urine Bacteria Urine Mucus POC Glucose 220 H Discharge Plan Triage Chief Complaint: Hyperglycemia ED Provider: Wilman Chavarria Dx/Rx/DC Orders Clinical Impression: Steroid-induced hyperglycemia, Type 2 diabetes mellitus Instructions: ED Diabetic Hyperglycemia Prescriptions: No Action glimepiride 2 mg tablet 4 mg PO DAILY Label Comments: TAKE 1 TABLET BY MOUTH ONCE DAILY WITH BREAKFAST ferrous sulfate 325 MG tablet 1 tab PO DAILY Label Comments: TAKE 1 TABLET BY MOUTH ONCE DAILY WITH BREAKFAST cholecalciferol (vitamin D3) 125 MCG capsule 125 mcg PO DAILY epinephrine 0.3 MG syringe 0.3 mg IM X1 PRN (Reason: Anaphylaxis) Qty: 1 0RF Fenofibrate 48 mg PO DAILY albuterol sulfate 2.5 mg /3 mL (0.083 %) solution for nebulization 2.5 mg inhalation PRN PRN (Reason: ASTHMA) Label Comments: INHALE 1 VIAL VIA NEBULIZER EVERY 6 HOURS NEEDED FOR SHORTNESS OF BREATH AND WHEEZING lisinopril 5 mg tablet 5 mg PO DAILY Label Comments: TAKE 1 TABLET BY MOUTH ONCE DAILY promethazine 25 mg tablet 25 mg PO Q6H PRN PRN (Reason: Nausea) Label Comments: TAKE (1) TABLET BY MOUTH EVERY 6 HOURS NEEDED FOR NAUSEA/VOMITING aripiprazole 10 mg tablet 30 mg PO DAILY Label Comments: TAKE 1 TABLET BY MOUTH EVERY DAY AT BEDTIME pantoprazole 40 mg Tablet,Delayed Release (Dr/Ec) 40 mg PO BID atorvastatin 10 mg tablet 10 mg PO QHS Label Comments: TAKE 1 TABLET BY MOUTH ONCE DAILY AT BEDTIME FOR CHOLESTEROL lithium carbonate 150 mg capsule 150 mg PO BREAKFAST Ozempic 1 mg/dose (4 mg/3 mL) pen injector 1 mg SUBCUT QWEEK lithium carbonate 150 mg Capsule 150 mg PO QHS Label Comments: stop lithium in 7 days hydroxyzine HCl 50 mg Tablet 100 mg PO QHS hydroxyzine HCl 50 mg Tablet 50 mg PO BID PRN PRN (Reason: Anxiety) metoprolol tartrate 75 mg Tablet 75 mg PO DAILY albuterol sulfate 90 mcg/actuation HFA aerosol inhaler 2 puff INHALATION PRN PRN (Reason: ASTHMA) Qty: 6.7 0RF Primary Care Provider: Miguelito Unger Referrals: Miguelito Unger MD [Primary Care Provider] - 3-5 Days if not improving Activity Restrictions/Additional Instructions: If you have been on prednisone for 7 days or less, you may discontinue. If you have been on it for more than 7 days, you may hasten the taper. Disposition Disposition: Home, Self Care
[2022-10-27] MEDS: Insulin Lispro 100 UNIT/ML INSULN.PEN 16 UNIT SC (18:25)
--- NOTE | 2022-10-27 18:30 | CM.ED ---
Social Work Referral Source: case find Referral Reason: care plan SW reviewed patient's chart and provided a copy of patient's care plan to MD Chavarria to review possible obstacles and solutions regarding care for patient. MD reports understanding and will consult with SW if needs arise. Minnie Hilario MSW, MAUR[facility]
[2022-10-27 18:45] LABS: Bedside Glucose 336 mg/dL (74-106)
[2022-10-27 18:46] LABS: Bacteria 0 SEEN /hpf (None Seen); Mucous, Urine 0 SEEN /hpf (<or=2+)
[2022-10-27 18:54] LABS: Color, Urine Yellow (Yellow); Glucose, Dipstick 1000 mg/dl (Normal); Ketone-Dipstick Negative (Negative); Leukocyte Esterase-Dipstick Negative /ul (Negative); Nitrite-Dipstick Negative (Negative); Occult Blood-Urine 150 /ul (Negative); Protein-Dipstick Negative (Negative); Urine Bilirubin Dipstick Negative (Negative); Urine Clarity Clear (Clear); Urine Urobilinogen Normal (Normal); Urine pH 6.5 (5.0 - 8.0)
[2022-10-27 19:00] LABS: Anion Gap 11 (5-15); BUN 15 mg/dL (7-18); BUN/Creat Ratio 17.8 RATIO (10-20); Calcium,Total 9.9 mg/dL (8.5-10.1); Chloride 102 mmol/L (98-107); Creatinine, Serum 0.84 mg/dL (0.55-1.02); EST Glomerular Filtration Rate 87 mL/min (>60); Est Glom Filt Rate - Afr Amer 105 mL/min (>60); Estimated Creatinine Clearance 103.28 ml/min; Glucose 330 mg/dL (74-106); Potassium 4.3 mmol/L (3.5-5.1); Sodium Level 138 mmol/L (136-145)
[2022-10-27 19:01] LABS: Red Blood Cells-Urine 0-5 SEEN /hpf (0-5); Squamous Epithelial Cells - UA 0-5 SEEN /hpf (5-10); White Blood Cells 0-5 SEEN /hpf (0-5)
[2022-10-27 20:41] LABS: Bedside Glucose 220 mg/dL (74-106)
[2022-10-27 20:59] VITALS: BP 135/74; PULSE 69; RESP 18; O2SAT 100
== END 2022-10-27 21:00 | disposition home or self-care (01) ==
LOC: ED 18:38
PROVIDERS: Emergency Provider Emergency Medicine; PCP Family Medicine; Visit Provider Emergency Medicine
DX: E11.65 Type 2 diabetes mellitus with hyperglycemia (principal); R81 Glycosuria; R35.0 Frequency of micturition; T38.0X5A Adverse effect of glucocorticoids and synthetic analogues, initial encounter; E66.9 Obesity, unspecified
CPT/HCPCS: 80048; 81001; 82962; 99282

== ENCOUNTER 2022-11-06 07:18 | Outpatient (RCR) | payer OTHER, MEDICAID, SELFPAY ==
--- NOTE | 2022-11-06 09:41 | BH.TPR ---
Treatment Plan Review Demographics Date of Admission:: 10/09/22 Date of Treatment Plan Review:: 11/06/22 Admitting Diagnoses:: Bipolar 1 disorder, most recent episode depressed, severe without psychosis (F31.4). 2. Cluster B traits. 3. Anxiety disorder, NOS. 4. History of ADHD, inattentive type. 5. Alcohol use disorder Current Diagnoses:: Bipolar 1 disorder, most recent episode depressed, severe without psychosis (F31.4). 2. Cluster B traits. 3. Anxiety disorder, NOS. 4. History of ADHD, inattentive type. 5. Alcohol use disorder Patient Status Patient's Response to Treatment:: Pt responding well to treatment AEB pt's consistent attendance, active engagement in group discussions, follow up with outpatient providers, and reporting use of skills outside treatment environment. Pt utilizes IOP aftercare to process current stressors, practice giving herself credit for daily accomplishments, continue to work on stepping outside her comfort zone to reduce social anxiety, and identify coping strategies. Status of Current Problems and Symptoms: Ongoing stressors include maintaining progress made in IOP, stress with new/resurgence of medical conditions, managing social anxiety and continuing to improve her boundaries and communication within interpersonal relationships. Pt self-reports she has moments of negative thinking and depression, but it is still manageable. Progress Problem #1: Problem Name:: Pt will maintain or decrease symptoms from IOP admission data. Status of Goals:: Obj 1 - complete with ongoing work encouraged- Pt has been able to maintain gains made in IOP as pt?s DSM-5 scores are 71% lower than they were at IOP admission. 88% decrease in depressive symptoms and 13% decrease in anxiety when compared to IOP admission scores. Obj 2 - complete with ongoing work encouraged. Pt has been consistently reporting self-care, thought challenging, and using healthy coping skills. Team Recommendations:: Recommended client continue IOP aftercare group to show maintenance of progress. Will continue to encourage client to attend regular outpatient counseling and psychiatry appointments as well.
--- NOTE | 2022-11-13 14:00 | BH.SGPN.GN ---
Behaviors/Verbalizations/Mental Status: []Pt alert and oriented, casually dressed and groomed. Eye contact good. Motor activity appropriate. Speech within normal limits. Affect flat, mood anxious and depressed. Thoughts linear, logical, no signs of hallucinations or delusions. Client Response/Progress/Benefit: []Pt responded well to session, Pt reports they have been keeping up with therapy, taking medications, and she sees her psychiatrist next week. Pt shared her mood is low this week due to numerous triggers including medical concerns, tension with a friend, and her therapist leaving the practice. Pt has been using deep breathing and crying to cope. Pt engaged well during the discussion of the components of self-compassion. Pt connected with the benefits of self-compassion and participated in the activity of reframing an example setback using self-compassion Pt worked with peers in small groups to practice reframing using self-compassion and for homework pt will use the same technique for their own experience. Pt appeared to benefit from practicing self-compassion and connecting with peers. Will continue aftercare to promote mood stability and reinforce healthy coping skills. Narrative Note: []
--- NOTE | 2022-11-20 14:00 | BH.SGPN.GN ---
Behaviors/Verbalizations/Mental Status: []Pt alert and oriented, casually dressed and groomed. Eye contact good. Motor activity appropriate. Speech within normal limits. Affect congruent, mood anxious and dysthymic. Thoughts linear, logical, no signs of hallucinations or delusions. Client Response/Progress/Benefit: []Pt responded well to session AEB sharing and listening attentively to others. Pt has been consistent with her outpatient mental health appointments and medication compliance. Pt reports using deep breathing, opposite action, and healthy distraction to help with managing her mental health symptoms. Pt participated in group discussion defining affirmations and why they are important. Pt provided insight throughout clinician?s presentation of tips for writing personal affirmations and wrote her own affirmations, including ?I am working on me for me?. Pt appeared to benefit from increased knowledge of affirmation writing skills and creating her own affirmational statements to remind herself of outside tx environment. Will continue aftercare treatment to reinforce healthy coping skills and promote gains. ? Narrative Note: []
--- NOTE | 2022-11-27 09:45 | BH.DS ---
Discharge Summary Demographics Date of Admission:: 10/09/22 Discharge Date: 11/27/22 Presenting Problems at Admission:: Pt discharged from IOP tx and transitioned to IOP aftercare to maintain gains Pt made in IOP and to reinforce healthy coping skills. At admission to IOP aftercare, pt continued to report mild symptoms of depression, anxiety, irritability, and the use of unhealthy coping skills at times. Pt also continued to experience stress with obtaining work, family, and substance use. Discharge Diagnoses:: Bipolar 1 disorder, most recent episode depressed, severe without psychosis (F31.4). 2. Cluster B traits. 3. Anxiety disorder, NOS. 4. History of ADHD, inattentive type. 5. Alcohol use disorder Reason for Discharge:: Pt has been able to maintain gains made in IOP tx and prevent decompensation, successfully completing aftercare goals. Pt discharged and will continue with traditional outpatient counseling. Treatment Progress During Treatment & Response: Pt responded well and made progress in IOP aftercare as evidenced by pt's participation in group discussions and self-report of more consistently applying coping skills than in prior admissions. Pt's overall DSM-5 scores decreased by 66% from IOP admission. Based on pt's DSM-5 scores from 11/27/22, pt has been able to maintain gains made in IOP tx for depression and anxiety, though pt self-reports continuing to struggle with consistent use of anxiety management skills. Pt reports she has been consistent with outpatient counseling as well. Issues Still to be Addressed:: Would benefit from continued work on distress tolerance and emotion regulation skills. Recommended to continue with counseling to work on relapse prevention and job readiness skills, depression, anxiety, and overall mood management. Discharge Recommendations/Instructions:: Pt will continue seeing her providers at [place] [id number] for medication management and individual counseling. Pt is working with the [employer] program for job skills coaching as well. Discharge Handout
--- NOTE | 2022-11-27 14:00 | BH.SGPN.GN ---
Behaviors/Verbalizations/Mental Status: []Pt alert and oriented, neatly dressed and groomed. Eye contact good. Motor activity appropriate. Speech within normal limits. Affect congruent, mood anxious and sad. Thoughts linear, logical, no signs of hallucinations or delusions. Client Response/Progress/Benefit: []Pt responded well to session, attentive and engaged. Pt reported she is following up with counseling, psychiatry, and pt has been taking her medications. Pt has been using opposite action and deep breathing to manage anxiety and sadness. Pt participated in discussion of personal values and why knowing these can be helpful to one's mental health. The group also discussed what could happen if one does not live according to their values. Pt identified her top value as family. Pt set a goal to play video games with her brother and board games with her mom. Pt will discharge from aftercare as pt has accomplished her goals and completed the 8 week group. ? Narrative Note: []
== END 2022-11-28 07:46 | disposition home or self-care (01) ==
LOC: BHOG 07:18
PROVIDERS: PCP Family Medicine; Referring Provider Psychiatry & Neurology Psychiatry; Visit Provider Psychiatry & Neurology Psychiatry
DX: F31.4 Bipolar disorder, current episode depressed, severe, without psychotic features (principal); F41.9 Anxiety disorder, unspecified; F90.0 Attention-deficit hyperactivity disorder, predominantly inattentive type; F10.90 Alcohol use, unspecified, uncomplicated
CPT/HCPCS: 90853

== ENCOUNTER 2023-01-16 16:56 | Emergency (ER) | payer OTHER, MEDICAID, SELFPAY ==
[2023-01-16 17:09] VITALS: BP 135/87; PULSE 123; RESP 18; TEMP 37.4; O2SAT 100
--- NOTE | 2023-01-16 19:59 | CM.ED ---
Social Work Referral Source: case find Referral Reason: care plan SW reviewed patient's chart and provided a copy of patient's care plan to MD Cabrera to review possible obstacles and solutions regarding care for patient. reports understanding and will consult with SW if needs arise. Minnie Hilario MSW, MAURY
--- NOTE | 2023-01-16 20:05 | CT_ITS ---
EXAM: CT ABDOMEN AND PELVIS WITH INTRAVENOUS CONTRAST CLINICAL INDICATION: RLQ abd pain TECHNIQUE: Helically acquired images were obtained of the abdomen and pelvis with intravenous contrast. This CT exam was performed using one or more of the following dose reduction techniques: automated exposure control, adjustment of the mA and/or kV according to patient size, and/or use of iterative reconstruction technique. CONTRAST: IV-100 ML ISOVUE 370 COMPARISON: 05/23/2021. FINDINGS: LIMITATIONS: Quality: Slightly limited due to artifact in the pelvis. LOWER THORAX: Unremarkable. Lung bases are clear. No cardiomegaly. No significant pericardial effusion. ABDOMEN: LIVER: Unremarkable. Homogeneous. No focal mass. GALLBLADDER AND BILE DUCTS: Gallbladder is surgically absent. No intra- or extrahepatic biliary ductal dilation. PANCREAS: Unremarkable. No focal cystic or solid mass. SPLEEN: Unremarkable. Normal size without focal cystic or solid mass. ADRENALS: Unremarkable. No nodules. KIDNEYS AND URETERS: Unremarkable. Normal renal size and position. No hydronephrosis. STOMACH AND BOWEL: Unremarkable. No stomach or bowel distention. No focal inflammatory change. PELVIS: APPENDIX: Normal visualized appendix. BLADDER: Unremarkable. REPRODUCTIVE: 4.3 x 4.4 x 5.4 cm right ovarian cyst, mildly increased compared to the prior study. ABDOMEN and PELVIS: INTRAPERITONEAL SPACE: No free fluid, collection or free air. BONES/JOINTS: Unremarkable. No suspicious lytic or blastic abnormality. SOFT TISSUES: Small, fat-containing supraumbilical hernia. VASCULATURE: Unremarkable. Abdominal aorta is normal in caliber. LYMPH NODES: Unremarkable. No enlarged lymph nodes. CT/Abdomen/Pelvis W IV Cont ONLY IMPRESSION: 1. No acute findings. 2. Right ovarian cyst. ACR White Paper guidelines (Barroso, et. al. JACR 2020;17(2):248-254) recommend pelvic ultrasound to better characterize this cyst. 3. Small, fat-containing supraumbilical hernia. Electronically Signed: Khushi Dodd MD at 21:38 EDT Reading Location ID and State: [id number] / Tel , Service support ,
--- NOTE | 2023-01-16 20:07 | EX.ED.DYSGE1 ---
HPI History of Present Illness Chief Complaint: General Illness Detail of Chief Complaint: Nausea vomiting. Right-sided abdominal pain. Prior cholecystectomy. Informant: patient Onset/Context/Timing Onset: Today and Hours Context: Gradual Onset Timing: Continuous Current Severity: Mild Maximum Severity: Mild Narrative Narrative: 27-year-old female history of ADHD, anemia, diabetes, ovarian cancer with 1 ovary removed and prior cholecystectomy. Also history ovarian cyst. Complaining of right-sided abdominal pain with nausea vomiting. Diagnosed with a UTI yesterday at [facility] urgent [facility] and started on Macrodantin today. States the pain started today around 430. She has had nausea, vomiting and diarrhea. Denies fever. No history of kidney stones. Noticed history of abdominal trauma. Prior similar symptoms: Yes Recent Illness/Hospitalization: No PFSH PFSH Medical History ADHD Anemia Anxiety disorder, unspecified Arthritis Asthma Bipolar 1 disorder Cancer Cancer Cardiology follow-up encounter Abner's disease Depression Diabetes Diabetes Dietary restriction Gastric reflux GERD (gastroesophageal reflux disease) Herniated disc History of echocardiogram History of irregular heartbeat History of pain when walking History of steroid therapy Hypertriglyceridemia Injury of back Injury of head and neck Kidney stones Non-smoker Obesity Obesity Ovarian cyst PCOS (polycystic ovarian syndrome) Proteinuria due to type 2 diabetes mellitus Walker as ambulation aid Home Medications ferrous sulfate 325 mg (65 mg iron) tablet 1 tab PO DAILY 05/16/19 [History Last Taken 01/24/21 08:00] cholecalciferol (vitamin D3) 125 mcg (5,000 unit) capsule 125 mcg PO DAILY supplement 05/17/19 [History Last Taken 01/24/21 08:00] epinephrine 0.3 mg/0.3 mL injection, auto-injector 0.3 mg (0.3 mL) IM X1 PRN Anaphylaxis ##1 05/14/20 [Rx Last Taken 01/30/21 08:00] Fenofibrate 48 mg PO DAILY 07/23/20 [History Last Taken 01/30/21 08:00] albuterol sulfate 2.5 mg/3 mL (0.083 %) solution for nebulization 2.5 mg inhalation PRN PRN ASTHMA 01/25/21 [History Last Taken 01/30/21 08:00] lisinopril 5 mg tablet 5 mg PO DAILY 08/20/21 [History Last Taken 01/30/21 08:00] aripiprazole 10 mg tablet 30 mg PO DAILY 07/16/21 [History Last Taken Unknown] promethazine 25 mg tablet 25 mg PO Q6H PRN PRN Nausea 07/16/21 [History Last Taken Unknown] pantoprazole 40 mg tablet,delayed release 40 mg PO BID 07/31/21 [History Last Taken Unknown] glimepiride 2 mg tablet 4 mg PO DAILY 01/07/22 [History Last Taken Unknown] atorvastatin 10 mg tablet 10 mg PO QHS 08/07/22 [History Last Taken Unknown] lithium carbonate 150 mg capsule 150 mg PO BREAKFAST 08/07/22 [History Last Taken Unknown] semaglutide 1 mg/dose (4 mg/3 mL) subcutaneous pen injector (Ozempic) 1 mg subcut QWEEK 08/07/22 [History Last Taken Unknown] hydroxyzine HCl 50 mg tablet 50 mg PO BID PRN PRN Anxiety 08/20/22 [History Last Taken Unknown] hydroxyzine HCl 50 mg tablet 100 mg PO QHS 08/20/22 [History Last Taken Unknown] lithium carbonate 150 mg capsule 150 mg PO QHS 08/20/22 [History Last Taken Unknown] metoprolol tartrate 75 mg tablet 75 mg PO DAILY 08/20/22 [History Last Taken Unknown] albuterol sulfate 90 mcg/actuation aerosol inhaler 2 puff inhalation PRN PRN ASTHMA #6.7 grams 10/22/22 [Rx Last Taken Unknown] Allergy/AdvReac Type Severity Reaction Status Date / Time penicillin V potassium Allergy Mild Rash Verified 01/16/23 17:10 [From Pen-Vee K] adhesive tape [plastic tape] Allergy Rash Verified 01/16/23 17:10 brompheniramine maleate Allergy Shortness Verified 01/16/23 17:10 [From Dimetapp of breath (brompheniramine-PPA)] celery Allergy Swelling Verified 01/16/23 17:10 phenylpropanolamine HCl Allergy Shortness Verified 01/16/23 17:10 [From Dimetapp of breath (brompheniramine-PPA)] amoxicillin trihydrate AdvReac Intermediate Diarrhea Verified 01/16/23 17:10 [From Augmentin] potassium clavulanate AdvReac Intermediate Diarrhea Verified 01/16/23 17:10 [From Augmentin] dicyclomine HCl [From Bentyl] AdvReac Nausea/Vom/ Verified 01/16/23 17:10 Diarrhea fructose AdvReac Nausea/Vom/ Verified 01/16/23 17:10 Diarrhea sertraline [From Zoloft] AdvReac Other Verified 01/16/23 17:10 Family History Father Diabetes Mother Hypertension Grandmother Breast cancer 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 H/O endoscopy H/O oophorectomy H/O ovarian cystectomy H/O partial adrenalectomy H/O wisdom tooth extraction History of adrenal surgery History of back surgery History of tonsillectomy and adenoidectomy Hx of cholecystectomy Social History household members: family Smoking Status: Never smoker alcohol intake: current alcohol intake frequency: a few times a month substance use type: does not use seatbelt use: always do you feel safe at home: Yes ROS ROS ED ROS Narrative Nausea and vomiting. Right-sided abdominal pain. Review of Systems ROS Unobtainable: Denies due to encephalopathy Constitutional Constitutional ED: Denies chills or fever(s) Eyes Eyes: Denies blurry vision ENT ENT ED: Denies ear pain Cardiovascular Cardiovascular: Denies chest pain Respiratory/Chest Respiratory/Chest: Denies cough or dyspnea Gastrointestinal Gastrointestinal: Reports abdominal pain, diarrhea, nausea and vomiting; Denies constipation or melena Genitourinary Genitourinary ED: Reports dysuria Musculoskeletal Musculoskeletal: Denies arthralgias Integumentary Denies abscess Neurologic Neurologic: Denies headache(s) Endocrine Endocrinology: Denies cold intolerance Hematologic/Lymphatic Hematologic/Lymphatic: Reports none Allergic/Immunologic Allergic/Immunologic ED: Denies mouth swelling or tongue swelling EXAM Physical Exam Narrative Exam Narrative: 27-year-old female vital signs stable afebrile does not look septic toxic. No distress. Temperature nine 9.4. HEENT exam unremarkable. Lungs clear. Heart tachycardic rate of 110 no murmur. Abdomen morbidly obese soft tender right lower quadrant. No peritoneal signs. No obstruction. No hernia or mass. Left side of the abdomen is nontender. Right upper quadrant unremarkable. Moving all 4 extremities. Neurologically awake and alert no focal motor deficits. Const Vital Signs: 01/16/23 17:09 01/16/23 20:12 01/16/23 21:37 Temperature 99.4 F H Temperature Source Temporal Pulse Rate 123 H Respiratory Rate 18 16 Respiratory Pattern Normal Blood Pressure 135/87 H Blood Pressure Mean 103 Pulse Ox 100 Oxygen Delivery Method Room Air Positive well nourished, well developed and obese; Negative for cachectic, contractures or unkempt General Appearance ED: well developed and NAD; Negative for unkempt, cachectic, contractures, cyanotic or diaphoretic Nutritional Appearance: obese; Negative for cachectic HEENT Reports moist mucous membranes; Denies dry mucous membranes Negative for trauma or tenderness Mouth ED: No dry mucous membranes Mouth: No dry mucous membranes Eyes PERRL and EOMs intact bilaterally General Eye ED: Negative for pale conjunctiva, scleral icterus or other Neck no lymphadenopathy, supple and no JVD General: Negative for tenderness Lymph Lymphatic: Negative for other Chest Wall inspection of chest normal and palpation of chest normal Chest: Negative for other Resp normal respiratory effort and clear to auscultation bilaterally Effort and Inspection: Negative for retractions Auscultation: Negative for rales, rhonchi or wheezes Cardio regular rate, regular rhythm, S1 normal heart sound, S2 normal heart sound and no murmurs Palpation: Negative for palpable S3 or palpable S4 Rate: Negative for bradycardia or tachycardic Rhythm: Negative for abnormal rhythm GI normal to inspection, nondistended, normoactive bowel sounds, non-distended and no masses; Negative for non-tender GI Narrative: Right lower quadrant tenderness. No peritoneal signs. Inspection: Negative for abdominal distention Auscultation: normoactive bowel sounds Palpation: soft and tender; Negative for guarding Back/Spine no CVA tenderness General Back: Negative for CVA tenderness Cervical Spine: Negative for cervical spine tenderness Thoracic Spine / Upper Back: Negative for thoracic spinal tenderness or paraspinal muscle tenderness Lumbar Spine / Lower Back: Negative for lumbar spinal tenderness Neuro oriented x3 Sensorium / Orientation: alert Motor Exam: strength 5/5 throughout Psych mental status grossly normal Appearance: Negative for unkempt Attitude: No agitated Mood & Affect: Negative for depressed, anxious or tearful Skin no rashes or lesions noted and no wounds General Skin Exam: Negative for elasticity normal Lesions: No lesion noted Rashes: No rashes noted Trauma: Negative for abrasion Wounds: Negative for wounds noted MDM MDM MDM Narrative Medical decision making narrative: 27-year-old female right lower quadrant abdominal pain. CAT scan and labs pending. Treated with IV Toradol. Patient has a care plan. Differential would include UTI, stone, appendicitis, ovarian cyst. Adhesions. Abdominal wall pain etc. Repeat exam patient doing well at 10:21 PM. She is resting comfortably. She has a known cyst on the right ovary we went over her labs and CAT scan report. She is being followed by [facility] oncologist in [place] at the [facility] because of her prior history of ovarian cancer. They are going to repeat imaging and decide a treatment plan for this. She is comfortable being discharged home. Motrin and Tylenol for pain. History & Record Review Discussion w/independent historian: Patient Additional record(s) reviewed:: Prior inpatient record, Prior outpatient record and Prior ED visit Lab Data Attestation: I reviewed the patient's lab results. Lab results narrative: CBC showed white count 17.2. H&H 12.6 and 40. Platelets 351. Compared to prior labs patient often has elevated white count. CMP shows gap of 7. Normal BUN and creatinine. Glucose 190. Liver enzymes normal. Serum test negative. CAT scan shows a right ovarian cyst about 4-1/2 cm. Has been seen before in the past. No acute appendicitis. Pending seen and normal. Labs: Laboratory Results - last 24 hr 01/16/23 20:35 WBC 17.2 H RBC 4.74 Hgb 12.6 Hct 40.0 MCV 84.4 MCH 26.6 L MCHC 31.5 L RDW Std Deviation 44.1 H RDW Coeff of Silvia 14.4 Plt Count 351 MPV 10.6 Immature Gran % (Auto) 0.500 Neut % (Auto) 79.8 H Lymph % (Auto) 10.2 L Rutherford % (Auto) 8.1 Eos % (Auto) 1.1 Baso % (Auto) 0.3 Absolute Neuts (auto) 13.8 H Absolute Lymphs (auto) 1.75 Nucleated RBC % 0 Sodium 136 Potassium 4.5 Chloride 105 Carbon Dioxide 24.0 Anion Gap 7 BUN 7 Creatinine 0.70 Est GFR (MDRD) Af Amer 131 Est GFR (MDRD) Non-Af 108 BUN/Creatinine Ratio 10.0 Glucose 190 H Calcium 9.5 Total Bilirubin 0.50 AST 53 H ALT 44 Alkaline Phosphatase 58 Total Protein 7.6 Albumin 3.2 Globulin 4.4 H Albumin/Globulin Ratio 0.7 L Serum , Qual NEGATIVE Radiography Diagnostic Testing: Clinical Impression(s) from Imaging Studies Abdomen/Pelvis CT 01/16/23 20:05 IMPRESSION: 1. No acute findings. 2. Right ovarian cyst. ACR White Paper guidelines (Dharmesh, et. al. JACR 2020;17(2):248-254) recommend pelvic ultrasound to better characterize this cyst. 3. Small, fat-containing supraumbilical hernia. Electronically Signed: Khushi Dodd MD at 21:38 EDT Reading Location ID and State: [id number] / Tel , Service support , Discharge Plan Triage Chief Complaint: General Illness ED Provider: Cecilio Cabrera Dx/Rx/DC Orders Clinical Impression: Pelvic pain, Complex cyst of right ovary, Abdominal pain Instructions: Ovarian Cysts Prescriptions: No Action glimepiride 2 mg tablet 4 mg PO DAILY Patient Comments: TAKE 1 TABLET BY MOUTH ONCE DAILY WITH BREAKFAST ferrous sulfate 325 MG tablet 1 tab PO DAILY Patient Comments: TAKE 1 TABLET BY MOUTH ONCE DAILY WITH BREAKFAST cholecalciferol (vitamin D3) 125 MCG capsule 125 mcg PO DAILY epinephrine 0.3 MG syringe 0.3 mg IM X1 PRN (Reason: Anaphylaxis) Qty: 1 0RF Fenofibrate 48 mg PO DAILY albuterol sulfate 2.5 mg /3 mL (0.083 %) solution for nebulization 2.5 mg inhalation PRN PRN (Reason: ASTHMA) Patient Comments: INHALE 1 VIAL VIA NEBULIZER EVERY 6 HOURS NEEDED FOR SHORTNESS OF BREATH AND WHEEZING lisinopril 5 mg tablet 5 mg PO DAILY Patient Comments: TAKE 1 TABLET BY MOUTH ONCE DAILY promethazine 25 mg tablet 25 mg PO Q6H PRN PRN (Reason: Nausea) Patient Comments: TAKE (1) TABLET BY MOUTH EVERY 6 HOURS NEEDED FOR NAUSEA/VOMITING aripiprazole 10 mg tablet 30 mg PO DAILY Patient Comments: TAKE 1 TABLET BY MOUTH EVERY DAY AT BEDTIME pantoprazole 40 mg Tablet,Delayed Release (Dr/Ec) 40 mg PO BID atorvastatin 10 mg tablet 10 mg PO QHS Patient Comments: TAKE 1 TABLET BY MOUTH ONCE DAILY AT BEDTIME FOR CHOLESTEROL lithium carbonate 150 mg capsule 150 mg PO BREAKFAST Ozempic 1 mg/dose (4 mg/3 mL) pen injector 1 mg SUBCUT QWEEK lithium carbonate 150 mg Capsule 150 mg PO QHS Patient Comments: stop lithium in 7 days hydroxyzine HCl 50 mg Tablet 100 mg PO QHS hydroxyzine HCl 50 mg Tablet 50 mg PO BID PRN PRN (Reason: Anxiety) metoprolol tartrate 75 mg Tablet 75 mg PO DAILY albuterol sulfate 90 mcg/actuation HFA aerosol inhaler 2 puff INHALATION PRN PRN (Reason: ASTHMA) Qty: 6.7 0RF Primary Care Provider: Miguelito Unger Referrals: Miguelito Unger MD [Primary Care Provider] - As Needed Activity Restrictions/Additional Instructions: Follow-up with your [facility] oncologist. Motrin and Tylenol for pain due to the ovarian cyst on the right ovary. Disposition Disposition: Home, Self Care
[2023-01-16 20:49] LABS: Absolute Lymphocyte Count 1.75 X10^3/uL (0.83-4.51); Absolute Neutrophil Count 13.8 X10^3/uL (2.0-7.7); Basophil# 0.06 X10^3/uL; Basophil% 0.3 % (0-1); Eosinophil# 0.19 X10^3/uL; Eosinophils% 1.1 % (0-5); Hemoglobin 12.6 g/dL (12.0-15.0); Lymphocyte # 1.75 X10^3/ul (0.83-4.51); Lymphocyte % 10.2 % (19-41); Mean Corp Hgb Conc 31.5 g/dL (32-36); Mean Corpuscular Hgb 26.6 pg (27.0-32.0); Mean Corpuscular Volume 84.4 fL (81-99); Mean Platelet Vol. 10.6 fl (6.2-12.0); Monocyte# 1.39 X10^3/uL; Monocyte% 8.1 % (0-10); NRBC Flagged by Analyzer 0 % (0-5); Neutrophil # 13.75 X10^3/uL (2.7-7.7); Neutrophil % 79.8 % (47-70); Platelet Count 351 K/mm3 (150-450); RBC Distribution Width CV 14.4 % (11.6-14.6); RBC Distribution Width SD 44.1 fl (35.1-43.9); Red Blood Count 4.74 M/mm3 (4.2-5.4); White Blood Count 17.2 K/mm3 (4.4-11.0)
[2023-01-16 20:59] LABS: Internal QC Validated? YES +Cl - CLEAR BKGD; Pregnancy, Serum, hCG Quali. NEGATIVE Negative
[2023-01-16 21:20] LABS: ALB/GLOB Ratio 0.7 RATIO (0.9-2.4); AST(SGOT) 53 U/L (15-37); Alanine Aminotransfer ALT/SGPT 44 U/L (13-56); Albumin, Serum 3.2 g/dL (3.2-5.0); Alkaline Phosphatase 58 U/L (45-117); Anion Gap 7 (5-15); BUN 7 mg/dL (7-18); Calcium,Total 9.5 mg/dL (8.5-10.1); Chloride 105 mmol/L (98-107); EST Glomerular Filtration Rate 108 mL/min (>60); Est Glom Filt Rate - Afr Amer 131 mL/min (>60); Globulin 4.4 g/dL (2.2-4.2); Glucose 190 mg/dL (74-106); Potassium 4.5 mmol/L (3.5-5.1); Protein, Total 7.6 g/dL (6.4-8.2); Sodium Level 136 mmol/L (136-145)
[2023-01-16] MEDS: Ketorolac 30 MG/ML Syringe IV (21:29)
[2023-01-16] MEDS: Ondansetron 4 MG/2 ML Vial IV (21:29)
[2023-01-16 21:37] VITALS: RESP 16
[2023-01-16 22:58] VITALS: BP 134/72; PULSE 81; RESP 16; O2SAT 98
== END 2023-01-16 22:59 | disposition home or self-care (01) ==
PROVIDERS: Emergency Provider Emergency Medicine; PCP Family Medicine; Visit Provider Emergency Medicine
DX: R10.2 Pelvic and perineal pain (principal); N83.201 Unspecified ovarian cyst, right side; R10.9 Unspecified abdominal pain; E66.9 Obesity, unspecified
CPT/HCPCS: 74177; 80053; 84703; 85025; 96374; 96375; 99285; Q9967; A4216; J2405

== ENCOUNTER 2023-02-06 22:21 | Emergency (ER) | payer OTHER, MEDICAID, SELFPAY ==
[2023-02-06 22:23] VITALS: BP 144/113; PULSE 109; RESP 20; TEMP 35.8; O2SAT 97; BMI 68.9
[2023-02-06 22:41] LABS: Absolute Lymphocyte Count 3.86 X10^3/uL (0.83-4.51); Absolute Neutrophil Count 7.1 X10^3/uL (2.0-7.7); Basophil# 0.08 X10^3/uL; Basophil% 0.7 % (0-1); Eosinophil# 0.36 X10^3/uL; Hematocrit 39.4 % (37-47); Hemoglobin 12.4 g/dL (12.0-15.0); Lymphocyte # 3.86 X10^3/ul (0.83-4.51); Lymphocyte % 31.7 % (19-41); Mean Corp Hgb Conc 31.5 g/dL (32-36); Mean Corpuscular Volume 85.8 fL (81-99); Mean Platelet Vol. 11.1 fl (6.2-12.0); Monocyte# 0.71 X10^3/uL; Monocyte% 5.8 % (0-10); NRBC Flagged by Analyzer 0 % (0-5); Neutrophil # 7.08 X10^3/uL (2.7-7.7); Neutrophil % 58.1 % (47-70); Platelet Count 414 K/mm3 (150-450); RBC Distribution Width CV 14.4 % (11.6-14.6); RBC Distribution Width SD 44.2 fl (35.1-43.9); Red Blood Count 4.59 M/mm3 (4.2-5.4); White Blood Count 12.2 K/mm3 (4.4-11.0)
[2023-02-06 22:53] LABS: Internal QC Validated? YES +Cl - CLEAR BKGD; Pregnancy, Serum, hCG Quali. NEGATIVE Negative
[2023-02-06 22:57] LABS: Anion Gap 9 (5-15); BUN 9 mg/dL (7-18); BUN/Creat Ratio 11.6 RATIO (10-20); Chloride 101 mmol/L (98-107); Creatinine, Serum 0.78 mg/dL (0.55-1.02); EST Glomerular Filtration Rate 96 mL/min (>60); Est Glom Filt Rate - Afr Amer 116 mL/min (>60); Estimated Creatinine Clearance 111.22 ml/min; Glucose 329 mg/dL (74-106); Potassium 4.5 mmol/L (3.5-5.1); Sodium Level 134 mmol/L (136-145)
[2023-02-06 23:58] LABS: Mucous, Urine 0 SEEN /hpf (<or=2+)
[2023-02-06 23:59] LABS: Color, Urine Yellow (Yellow); Glucose, Dipstick 1000 mg/dl (Normal); Ketone-Dipstick Negative (Negative); Leukocyte Esterase-Dipstick 500 /ul (Negative); Nitrite-Dipstick Positive (Negative); Occult Blood-Urine 50 /ul (Negative); Protein-Dipstick 30 mg/dl (Negative); Urine Bilirubin Dipstick Negative (Negative); Urine Clarity Sl. Cloudy (Clear); Urine Urobilinogen Normal (Normal)
[2023-02-07 00:13] LABS: Bacteria 2+ /hpf (None Seen); Red Blood Cells-Urine 5-10 SEEN /hpf (0-5); Squamous Epithelial Cells - UA 0-5 SEEN /hpf (5-10); White Blood Cells 10-25 SEEN /hpf (0-5)
--- NOTE | 2023-02-07 00:18 | US_ITS ---
EXAM: US PELVIS TRANSVAGINAL CLINICAL INDICATION: rt pelvic pain TECHNIQUE: Transvaginal pelvic ultrasound was performed with grayscale and color Doppler imaging. Transvaginal imaging was used for better evaluation of the endometrium and adnexa. COMPARISON: CT abdomen and pelvis 01/16/2023 FINDINGS: UTERUS/CERVIX: Uterus: 8.5 x 4.6 x 3.9 cm. Endometrium: 2.6 mm. Anteverted. There is no uterine mass. RIGHT OVARY: The right ovary is enlarged, measuring 6 x 5.4 x 4.7 cm, with 2 minimally complex cysts measuring 3.9 and 2.7 cm. Blood flow is present in the right ovary, with normal Doppler waveforms. LEFT OVARY: The left ovary is surgically absent. FREE FLUID: None. BLADDER: Empty bladder which cannot be evaluated with this probe. US/Transvaginal Non- IMPRESSION: The right ovary is enlarged, measuring 6 x 5.4 x 4.7 cm, with 2 minimally complex cysts measuring 3.9 and 2.7 cm. No evidence of torsion or other complication. Follow-up pelvic ultrasound in 6 weeks is recommended to evaluate for resolution. Electronically Signed: Woody Glover MD at 2:37 EDT ,
--- NOTE | 2023-02-07 00:20 | EX.ED.DYSGE1 ---
HPI History of Present Illness Chief Complaint: Abd Pain Informant: patient Narrative Narrative: Patient states she has been having pain in her right pelvis for the past month or more, she had an outpatient ultrasound at [facility] that showed a 4 cm ovarian cyst according to the patient's report verbally. She has been following with oncology because he has a history of ovarian cancer for which she had a left oophorectomy, and they are working this 1 up for cancer, she has an appointment soon to look into that, but tonight the pain became significantly worse to the point where the tramadol she has been taking which was helping, is not. She has been vomiting with this. [facility] Medical History ADHD Anemia Anxiety disorder, unspecified Arthritis Asthma Bipolar 1 disorder Cancer Cancer Cardiology follow-up encounter [place]'s disease Depression Diabetes Diabetes Dietary restriction Gastric reflux GERD (gastroesophageal reflux disease) Herniated disc History of echocardiogram History of irregular heartbeat History of pain when walking History of steroid therapy Hypertriglyceridemia Injury of back Injury of head and neck Kidney stones Non-smoker Obesity Obesity Ovarian cyst PCOS (polycystic ovarian syndrome) Proteinuria due to type 2 diabetes mellitus Walker as ambulation aid Home Medications ferrous sulfate 325 mg (65 mg iron) tablet 1 tab PO DAILY 05/16/19 [History Last Taken 01/24/21 08:00] cholecalciferol (vitamin D3) 125 mcg (5,000 unit) capsule 125 mcg PO DAILY supplement 05/17/19 [History Last Taken 01/24/21 08:00] epinephrine 0.3 mg/0.3 mL injection, auto-injector 0.3 mg (0.3 mL) IM X1 PRN Anaphylaxis ##1 05/14/20 [Rx Last Taken 01/30/21 08:00] Fenofibrate 48 mg PO DAILY 07/23/20 [History Last Taken 01/30/21 08:00] albuterol sulfate 2.5 mg/3 mL (0.083 %) solution for nebulization 2.5 mg inhalation PRN PRN ASTHMA 01/25/21 [History Last Taken 01/30/21 08:00] lisinopril 5 mg tablet 5 mg PO DAILY 01/25/21 [History Last Taken 01/30/21 08:00] aripiprazole 10 mg tablet 30 mg PO DAILY 07/16/21 [History Last Taken Unknown] promethazine 25 mg tablet 25 mg PO Q6H PRN PRN Nausea 07/16/21 [History Last Taken Unknown] pantoprazole 40 mg tablet,delayed release 40 mg PO BID 07/31/21 [History Last Taken Unknown] glimepiride 2 mg tablet 4 mg PO DAILY 01/07/22 [History Last Taken Unknown] atorvastatin 10 mg tablet 10 mg PO QHS 08/07/22 [History Last Taken Unknown] lithium carbonate 150 mg capsule 150 mg PO BREAKFAST 08/07/22 [History Last Taken Unknown] semaglutide 1 mg/dose (4 mg/3 mL) subcutaneous pen injector (Ozempic) 1 mg subcut QWEEK 08/07/22 [History Last Taken Unknown] hydroxyzine HCl 50 mg tablet 50 mg PO BID PRN PRN Anxiety 08/20/22 [History Last Taken Unknown] hydroxyzine HCl 50 mg tablet 100 mg PO QHS 08/20/22 [History Last Taken Unknown] lithium carbonate 150 mg capsule 150 mg PO QHS 08/20/22 [History Last Taken Unknown] metoprolol tartrate 75 mg tablet 75 mg PO DAILY 08/20/22 [History Last Taken Unknown] albuterol sulfate 90 mcg/actuation aerosol inhaler 2 puff inhalation PRN PRN ASTHMA #6.7 grams 10/22/22 [Rx Last Taken Unknown] hydrocodone-acetaminophen 5-325mg 5mg-325mg 1 tab PO Q6H PRN PRN Pain 3 days #10 TABLETS 02/07/23 [Rx Last Taken Unknown] Allergy/AdvReac Type Severity Reaction Status Date / Time nitrofurantoin Allergy Intermediate rash Verified 02/06/23 22:23 [From Macrobid] penicillin V potassium Allergy Mild Rash Verified 02/06/23 22:23 [From Pen-Vee K] adhesive tape [plastic tape] Allergy Rash Verified 02/06/23 22:23 brompheniramine maleate Allergy Shortness Verified 02/06/23 22:23 [From Dimetapp of breath (brompheniramine-PPA)] celery Allergy Swelling Verified 02/06/23 22:23 phenylpropanolamine HCl Allergy Shortness Verified 02/06/23 22:23 [From Dimetapp of breath (brompheniramine-PPA)] amoxicillin trihydrate AdvReac Intermediate Diarrhea Verified 02/06/23 22:23 [From Augmentin] potassium clavulanate AdvReac Intermediate Diarrhea Verified 02/06/23 22:23 [From Augmentin] dicyclomine HCl [From Bentyl] AdvReac Nausea/Vom/ Verified 02/06/23 22:23 Diarrhea fructose AdvReac Nausea/Vom/ Verified 02/06/23 22:23 Diarrhea sertraline [From Zoloft] AdvReac Other Verified 02/06/23 22:23 Family History Father Diabetes Mother Hypertension Grandmother Breast cancer 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 H/O endoscopy H/O oophorectomy H/O ovarian cystectomy H/O partial adrenalectomy H/O wisdom tooth extraction History of adrenal surgery History of back surgery History of tonsillectomy and adenoidectomy Hx of cholecystectomy Social History household members: family Smoking Status: Never smoker alcohol intake: current alcohol intake frequency: a few times a month substance use type: does not use seatbelt use: always do you feel safe at home: Yes ROS ROS ED Constitutional Constitutional ED: Denies chills or fever(s) Eyes Eyes: Denies change in vision or diplopia ENT ENT ED: Denies rhinorrhea or sore throat Cardiovascular Cardiovascular: Denies chest pain or palpitations Respiratory/Chest Respiratory/Chest: Denies cough or dyspnea Gastrointestinal Gastrointestinal: Reports abdominal pain, nausea and vomiting; Denies diarrhea Genitourinary Genitourinary ED: Reports other Details: No vaginal bleeding or discharge ; Denies dysuria or hematuria Musculoskeletal Musculoskeletal: Denies back pain or neck pain Integumentary Denies abscess or rash Neurologic Neurologic: Denies headache(s), paresthesias or weakness Psychiatric Psychiatric: Denies anxiety or suicidal thoughts EXAM Physical Exam Const Vital Signs: 02/06/23 22:23 02/07/23 00:43 Temperature 96.4 F L Temperature Source Temporal Pulse Rate 109 H 102 H Respiratory Rate 20 H 18 Blood Pressure 144/113 H 135/82 H Blood Pressure Mean 123 99 Pulse Ox 97 94 Oxygen Delivery Method Room Air Room Air Positive well nourished and well developed Constitutional Narrative: Morbidly obese General Appearance ED: well developed and NAD HEENT Reports moist mucous membranes normocephalic and atraumatic Eyes PERRL and EOMs intact bilaterally Neck full ROM and supple Resp normal respiratory effort and clear to auscultation bilaterally Cardio regular rate, regular rhythm and no murmurs GI non-distended GI Narrative: Abdominal exam significantly limited due to abdominal obesity. Tender in the right pelvis, nontender at McBurney's point and the rest of the abdomen. No guarding or rebound tenderness. Auscultation: normoactive bowel sounds Palpation: soft Back/Spine no CVA tenderness General Back: other FROM Extremity normal to inspection General Extremety ED: Negative for edema, pulses abnormal or tenderness General Extremity: Negative for edema or pulses abnormal Neuro oriented x3, CN's II-XII intact bilaterally and no sensory deficits noted Sensorium / Orientation: awake and alert Motor Exam: strength 5/5 throughout Skin no rashes or lesions noted and no wounds MDM MDM MDM Narrative Medical decision making narrative: Labs noted, negative, urine is abnormal but she has no urinary symptoms so we sent that for culture. I sent her for transvaginal stat ultrasound of the pelvis since I have no records of her prior ultrasound, it was done several weeks ago, and the cysts could have enlarged since then, and I would be unable to rule out torsion without 1 given her symptoms. This was obtained, I reviewed the images and results which I agree with, negative for torsion, the Ovary is enlarged and there are 2 cysts, the patient is feeling much better after analgesics and stable for discharge home, I did write her a prescription for short course of analgesics stronger than tramadol, advised to not take both at the same time. Lab Data Attestation: I reviewed the patient's lab results. Labs: Laboratory Results - last 24 hr 02/06/23 02/06/23 02/07/23 22:30 23:52 00:45 WBC 12.2 H RBC 4.59 Hgb 12.4 Hct 39.4 MCV 85.8 MCH 27.0 MCHC 31.5 L RDW Std Deviation 44.2 H RDW Coeff of Silvia 14.4 Plt Count 414 MPV 11.1 Immature Gran % (Auto) 0.700 Neut % (Auto) 58.1 Lymph % (Auto) 31.7 [place] % (Auto) 5.8 Eos % (Auto) 3.0 Baso % (Auto) 0.7 Absolute Neuts (auto) 7.1 Absolute Lymphs (auto) 3.86 Nucleated RBC % 0 Sodium 134 L Potassium 4.5 Chloride 101 Carbon Dioxide 24.0 Anion Gap 9 BUN 9 Creatinine 0.78 Estim Creat Clear Calc 111.22 Est GFR (MDRD) Af Amer 116 Est GFR (MDRD) Non-Af 96 BUN/Creatinine Ratio 11.6 Glucose 329 H Calcium 10.0 Serum , Qual NEGATIVE Urine Color Yellow Urine Clarity Sl. Cloudy Urine pH 6.0 Ur Specific [place] 1.020 Urine Protein 30 H Urine Glucose (UA) 1000 H Urine Ketones Negative Urine Occult Blood 50 H Urine Nitrite Positive H Urine Bilirubin Negative Urine Urobilinogen Normal Ur Leukocyte Esterase 500 H Urine RBC 5-10 SEEN Urine WBC 10-25 SEEN Ur Squamous Epith Cells 0-5 SEEN Urine Bacteria 2+ Urine Mucus 0 SEEN Urine Test Negative Radiography Diagnostic Testing: Clinical Impression(s) from Imaging Studies Transvaginal US 02/07/23 00:18 IMPRESSION: The right ovary is enlarged, measuring 6 x 5.4 x 4.7 cm, with 2 minimally complex cysts measuring 3.9 and 2.7 cm. No evidence of torsion or other complication. Follow-up pelvic ultrasound in 6 weeks is recommended to evaluate for resolution. Electronically Signed: Woody Glover MD at 2:37 EDT , Discharge Plan Triage Chief Complaint: Abd Pain Other Complaint: Female C/O Nausea/Vomiting ED Provider: Wilman Chavarria Dx/Rx/DC Orders Clinical Impression: Pelvic pain in female, Cyst of right ovary Instructions: ED Ovarian Cyst Prescriptions: New hydrocodone-acetaminophen [hydrocodone-acetaminophen] 5-325 mg tablet 1 tab PO Q6H PRN PRN (Reason: Pain) 3 Days Qty: 10 0RF Rx Instructions: Emergency Rx No Action glimepiride 2 mg tablet 4 mg PO DAILY Patient Comments: TAKE 1 TABLET BY MOUTH ONCE DAILY WITH BREAKFAST ferrous sulfate 325 MG tablet 1 tab PO DAILY Patient Comments: TAKE 1 TABLET BY MOUTH ONCE DAILY WITH BREAKFAST cholecalciferol (vitamin D3) 125 MCG capsule 125 mcg PO DAILY epinephrine 0.3 MG syringe 0.3 mg IM X1 PRN (Reason: Anaphylaxis) Qty: 1 0RF Fenofibrate 48 mg PO DAILY albuterol sulfate 2.5 mg /3 mL (0.083 %) solution for nebulization 2.5 mg inhalation PRN PRN (Reason: ASTHMA) Patient Comments: INHALE 1 VIAL VIA NEBULIZER EVERY 6 HOURS NEEDED FOR SHORTNESS OF BREATH AND WHEEZING lisinopril 5 mg tablet 5 mg PO DAILY Patient Comments: TAKE 1 TABLET BY MOUTH ONCE DAILY promethazine 25 mg tablet 25 mg PO Q6H PRN PRN (Reason: Nausea) Patient Comments: TAKE (1) TABLET BY MOUTH EVERY 6 HOURS NEEDED FOR NAUSEA/VOMITING aripiprazole 10 mg tablet 30 mg PO DAILY Patient Comments: TAKE 1 TABLET BY MOUTH EVERY DAY AT BEDTIME pantoprazole 40 mg Tablet,Delayed Release (Dr/Ec) 40 mg PO BID atorvastatin 10 mg tablet 10 mg PO QHS Patient Comments: TAKE 1 TABLET BY MOUTH ONCE DAILY AT BEDTIME FOR CHOLESTEROL lithium carbonate 150 mg capsule 150 mg PO BREAKFAST Ozempic 1 mg/dose (4 mg/3 mL) pen injector 1 mg SUBCUT QWEEK lithium carbonate 150 mg Capsule 150 mg PO QHS Patient Comments: stop lithium in 7 days hydroxyzine HCl 50 mg Tablet 100 mg PO QHS hydroxyzine HCl 50 mg Tablet 50 mg PO BID PRN PRN (Reason: Anxiety) metoprolol tartrate 75 mg Tablet 75 mg PO DAILY albuterol sulfate 90 mcg/actuation HFA aerosol inhaler 2 puff INHALATION PRN PRN (Reason: ASTHMA) Qty: 6.7 0RF Primary Care Provider: Miguelito Unger Referrals: Miguelito Unger MD [Primary Care Provider] - Doctor,Your [Non-Staff] - 02/11/23 (as scheduled)
[2023-02-07] MEDS: Ondansetron ODT 4 MG Tablet 8 MG PO (00:40)
[2023-02-07] MEDS: Oxycodone/Apap 5/325 Tablet PO (00:41)
[2023-02-07 00:43] VITALS: BP 135/82; PULSE 102; RESP 18; O2SAT 94
[2023-02-07 00:59] LABS: Internal QC Validated? YES +Cl - CLEAR BKGD; Pregnancy, Urine Negative Negative
[2023-02-07 02:00] VITALS: BP 140/88; PULSE 16; RESP 110
[2023-02-07 03:01] VITALS: BP 137/95; PULSE 107; RESP 16; TEMP 36.7
== END 2023-02-07 03:21 | disposition home or self-care (01) ==
LOC: ED 02-07 00:48
PROVIDERS: Emergency Provider Emergency Medicine; PCP Family Medicine; Visit Provider Emergency Medicine
DX: R10.2 Pelvic and perineal pain (principal); N83.201 Unspecified ovarian cyst, right side
CPT/HCPCS: 36415; 76830; 80048; 81001; 81025; 84703; 85025; 87086; 87088; 93976; 99284; A4216; J2405

== ENCOUNTER 2023-03-26 15:05 | Emergency (ER) | payer OTHER, MEDICAID, SELFPAY ==
[2023-03-26 15:06] VITALS: BP 144/92; PULSE 135; RESP 19; TEMP 36.4; O2SAT 97; BMI 69.0
[2023-03-26 15:17] VITALS: O2SAT 99
--- NOTE | 2023-03-26 15:29 | CM.ED ---
Social Work SW performed chart review; HCPOA on file as of 2021. Patient reports not having a LW. Patient's HCPOA is patient's mother, Rajani. Minnie Hilario MSW, MAURY
--- NOTE | 2023-03-26 15:30 | CM.ED ---
Social Work Referral Source: case find Referral Reason: care plan SW reviewed patient's chart and provided a copy of patient's care plan to MD Prather to review possible obstacles and solutions regarding care for patient. MD will consult with LEONARDO if needs arise. Minnie DREW, MAURY
--- NOTE | 2023-03-26 15:52 | EKG12_ITS ---
Test Reason : SOB Blood Pressure : / mmHG Vent. Rate : 149 BPM Atrial Rate : 149 BPM P-R Int : 088 ms QRS Dur : 090 ms QT Int : 344 ms P-R-T Axes : 000 022 018 degrees QTc Int : 541 ms Critical Test Result: High HR Sinus tachycardia with short NH Poor R- wave progression Anterior Leads Abnormal ECG Confirmed by BESSY MARCH, WESTON ([id number]), society editor ADRIANE GAN ([id number]) on 03/31/2023 12:35:20 PM Referred By: GAVINO Confirmed By:DAVID DOHERTY MD
--- NOTE | 2023-03-26 15:52 | RAD_ITS ---
STUDY: X-RAY CHEST REASON FOR EXAM: Female, 27 years old. cough TECHNIQUE: AP portable COMPARISON: March 18, 2022. FINDINGS: There is less than optimal inspiratory effort however the lungs are clear. There is no demonstrated pleural abnormality. Normal size heart. Normal mediastinum and ana cristina. Normal visualized pulmonary arteries. Normal visualized aortic arch and descending thoracic aorta. Normal visualized thoracic spine. Normal visualized ribs, clavicles, and shoulders. There is no demonstrated abnormality of the visualized soft tissue structures of the upper abdomen. No significant change since prior exam RAD/Chest 1 View (Portable) IMPRESSION: Diminished inspiratory effort. No acute cardio pulmonary pathology Electronically Signed: Miguelito Whitney MD at 17:02 EDT ,
--- NOTE | 2023-03-26 15:54 | ED.VIS.DYS ---
HPI History of Present Illness Chief Complaint: Shortness of Breath Narrative Narrative: 27-year-old female with history of asthma presenting with viral symptoms of cough, shortness of breath, chills, body aches. No fevers at home. She does complain of a sore throat. She went to urgent care today and was tested for strep however since her heart rate was 145 they sent her to the ER. She states that her heart rate is baseline in the 1 teens. She states he is diagnosed with tachycardia. She states that she feels tight like she is having an asthma flare. She points to the retrosternal region. She does have a cough. She states that her strep was negative but they did not test her for COVID or influenza at the urgent care. She had some nausea and vomiting earlier today. She did breathing treatments earlier before coming to the urgent care. [facility] Medical History ADHD Anemia Anxiety disorder, unspecified Arthritis Asthma Bipolar 1 disorder Cancer Cancer Cardiology follow-up encounter Beverly's disease Depression Diabetes Diabetes Dietary restriction Gastric reflux GERD (gastroesophageal reflux disease) Herniated disc History of echocardiogram History of irregular heartbeat History of pain when walking History of steroid therapy Hypertriglyceridemia Injury of back Injury of head and neck Kidney stones Non-smoker Obesity Obesity Ovarian cyst PCOS (polycystic ovarian syndrome) Proteinuria due to type 2 diabetes mellitus Walker as ambulation aid Home Medications ferrous sulfate 325 mg (65 mg iron) tablet 1 tab PO DAILY 05/16/19 [History Last Taken 01/24/21 08:00] cholecalciferol (vitamin D3) 125 mcg (5,000 unit) capsule 125 mcg PO DAILY supplement 05/17/19 [History Last Taken 01/24/21 08:00] epinephrine 0.3 mg/0.3 mL injection, auto-injector 0.3 mg (0.3 mL) IM X1 PRN Anaphylaxis ##1 05/14/20 [Rx Last Taken 01/30/21 08:00] Fenofibrate 48 mg PO DAILY 07/23/20 [History Last Taken 01/30/21 08:00] albuterol sulfate 2.5 mg/3 mL (0.083 %) solution for nebulization 2.5 mg inhalation PRN PRN ASTHMA 01/25/21 [History Last Taken 01/30/21 08:00] lisinopril 5 mg tablet 5 mg PO DAILY 01/25/21 [History Last Taken 01/30/21 08:00] aripiprazole 10 mg tablet 30 mg PO DAILY 07/16/21 [History Last Taken Unknown] promethazine 25 mg tablet 25 mg PO Q6H PRN PRN Nausea 07/16/21 [History Last Taken Unknown] pantoprazole 40 mg tablet,delayed release 40 mg PO BID 07/31/21 [History Last Taken Unknown] glimepiride 2 mg tablet 4 mg PO DAILY 01/07/22 [History Last Taken Unknown] atorvastatin 10 mg tablet 10 mg PO QHS 08/07/22 [History Last Taken Unknown] lithium carbonate 150 mg capsule 150 mg PO BREAKFAST 08/07/22 [History Last Taken Unknown] semaglutide 1 mg/dose (4 mg/3 mL) subcutaneous pen injector (Ozempic) 1 mg subcut QWEEK 08/07/22 [History Last Taken Unknown] hydroxyzine HCl 50 mg tablet 50 mg PO BID PRN PRN Anxiety 08/20/22 [History Last Taken Unknown] hydroxyzine HCl 50 mg tablet 100 mg PO QHS 08/20/22 [History Last Taken Unknown] lithium carbonate 150 mg capsule 150 mg PO QHS 08/20/22 [History Last Taken Unknown] metoprolol tartrate 75 mg tablet 75 mg PO DAILY 08/20/22 [History Last Taken Unknown] albuterol sulfate 90 mcg/actuation aerosol inhaler 2 puff inhalation PRN PRN ASTHMA #6.7 grams 10/22/22 [Rx Last Taken Unknown] hydrocodone-acetaminophen 5-325mg 5mg-325mg 1 tab PO Q6H PRN PRN Pain 3 days #10 TABLETS 02/07/23 [Rx Last Taken Unknown] albuterol sulfate 2.5 mg/3 mL (0.083 %) solution for nebulization 2.5 mg (3 mL) inhalation Q6H PRN shortness of breath or wheezing #75 mL 03/26/23 [Rx Last Taken Unknown] ondansetron 4 mg disintegrating tablet 4 mg PO Q8H PRN PRN Nausea #12 tabs 03/26/23 [Rx Last Taken Unknown] prednisone 50 mg tablet 50 mg PO DAILY #5 tabs 03/26/23 [Rx Last Taken Unknown] Allergy/AdvReac Type Severity Reaction Status Date / Time nitrofurantoin Allergy Intermediate rash Verified 03/26/23 15:06 [From Macrobid] penicillin V potassium Allergy Mild Rash Verified 03/26/23 15:06 [From Pen-Vee K] adhesive tape [plastic tape] Allergy Rash Verified 03/26/23 15:06 brompheniramine maleate Allergy Shortness Verified 03/26/23 15:06 [From Dimetapp of breath (brompheniramine-PPA)] celery Allergy Swelling Verified 03/26/23 15:06 phenylpropanolamine HCl Allergy Shortness Verified 03/26/23 15:06 [From Dimetapp of breath (brompheniramine-PPA)] amoxicillin trihydrate AdvReac Intermediate Diarrhea Verified 03/26/23 15:06 [From Augmentin] potassium clavulanate AdvReac Intermediate Diarrhea Verified 03/26/23 15:06 [From Augmentin] dicyclomine HCl [From Bentyl] AdvReac Nausea/Vom/ Verified 03/26/23 15:06 Diarrhea fructose AdvReac Nausea/Vom/ Verified 03/26/23 15:06 Diarrhea sertraline [From Zoloft] AdvReac Other Verified 03/26/23 15:06 Family History Father Diabetes Mother Hypertension Grandmother Breast cancer 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 H/O endoscopy H/O oophorectomy H/O ovarian cystectomy H/O partial adrenalectomy H/O wisdom tooth extraction History of adrenal surgery History of back surgery History of tonsillectomy and adenoidectomy Hx of cholecystectomy Social History household members: family Smoking Status: Never smoker alcohol intake: current alcohol intake frequency: a few times a month substance use type: does not use seatbelt use: always do you feel safe at home: Yes ROS ROS ED Constitutional Constitutional ED: Denies chills, fever(s) or sweats Eyes Eyes: Denies blurry vision or change in vision ENT ENT ED: Denies ear pain or sore throat Cardiovascular Cardiovascular: Reports palpitations; Denies racing heartbeat Respiratory/Chest Respiratory/Chest: Reports cough, dyspnea and dyspnea on exertion; Denies sputum Gastrointestinal Gastrointestinal: Reports nausea and vomiting; Denies abdominal pain, constipation or diarrhea Genitourinary Genitourinary ED: Denies dysuria, hematuria or urinary frequency Musculoskeletal Musculoskeletal: Denies arthralgias, myalgias or neck pain Integumentary Denies abscess, Abrasions or rash Neurologic Neurologic: Denies headache(s), paresthesias or weakness Psychiatric Psychiatric: Denies anxiety, depression, suicidal ideation or suicidal thoughts Endocrine Endocrinology: Denies polydipsia or polyuria EXAM Physical Exam Const Vital Signs: 03/26/23 15:06 03/26/23 15:17 03/26/23 15:55 Temperature 97.6 F L Temperature Source Temporal Pulse Rate 135 H Respiratory Rate 19 H Respiratory Effort Short of Breath Respiratory Depth Normal Respiratory Pattern Tachypnea Blood Pressure 144/92 H Blood Pressure Mean 109 Pulse Ox 97 96 Oxygen Delivery Method Room Air Room Air Room Air 03/26/23 16:11 Temperature Temperature Source Pulse Rate 116 H Respiratory Rate 16 Respiratory Effort Respiratory Depth Respiratory Pattern Normal Blood Pressure Blood Pressure Mean Pulse Ox Oxygen Delivery Method Positive well nourished General Appearance ED: NAD; Negative for pallor HEENT Reports moist mucous membranes Eyes PERRL and EOMs intact bilaterally Neck no lymphadenopathy and supple Resp Resp Narrative: Tachypneic Auscultation: wheezes scattered wheezes Cardio regular rhythm Rate: tachycardic GI non-tender Neuro oriented x3 and CN's II-XII intact bilaterally Sensorium / Orientation: alert Motor Exam: strength 5/5 throughout Psych mental status grossly normal Skin no wounds General Skin Exam: Negative for jaundice or pallor MDM MDM MDM Narrative Medical decision making narrative: Presenting with tightness in her chest and states it feels like asthma exacerbation. She got some scattered wheezing on examination. Patient with viral symptoms since yesterday. She had a rapid strep done in urgent care. States her heart rate is normally in the 100s at baseline. She was 145 at the urgent care and sent to the ED. Differential includes ACS, pneumonia, COVID, influenza, dehydration, electrolyte normalities, hyperglycemia, anemia. CBC was obtained to assess white blood cell count, hemoglobin, platelets. BMP to assess renal function and electrolytes. High-sensitivity troponin and EKG to assess for ischemia. Chest x-ray to rule out pneumonia. Patient medicated with a liter of normal saline she is given breathing treatments and steroids CBC shows minimal leukocytosis of 11.5. Hemoglobin stable 11.8. Platelets are normal at 314. Renal function and electrolytes unremarkable. Glucose slightly elevated at 238 but it seems she runs high. No anion gap. High-sensitivity troponin is 4. EKG shows sinus tachycardia without evidence of ischemia. Chest x-ray on my interpretation shows no acute process. Radiologist interprets this and agrees. Patient is feeling better after being medicated with Solu-Medrol and given breathing treatments. Her heart rate is down to t o 115 which she states is her baseline. Her COVID test came back positive. She is given a burst of steroids as well as albuterol refills and Zofran for home. Impression 1. COVID-19 2. Nausea/vomiting 3. Asthma exacerbation Lab Data Attestation: I reviewed the patient's lab results. Labs: Laboratory Results - last 24 hr 03/26/23 16:10 WBC 11.5 H RBC 4.50 Hgb 11.8 L Hct 37.8 MCV 84.0 MCH 26.2 L MCHC 31.2 L RDW Std Deviation 43.2 RDW Coeff of Silvia 14.2 Plt Count 314 MPV 10.5 Immature Gran % (Auto) 0.700 Neut % (Auto) 77.4 H Lymph % (Auto) 11.7 L Wirt % (Auto) 7.7 Eos % (Auto) 2.0 Baso % (Auto) 0.5 Absolute Neuts (auto) 8.9 H Absolute Lymphs (auto) 1.34 Nucleated RBC % 0 Sodium 137 Potassium 3.9 Chloride 105 Carbon Dioxide 25.0 Anion Gap 7 BUN 9 Creatinine 0.58 Estim Creat Clear Calc 149.57 Est GFR (MDRD) Af Amer 160 Est GFR (MDRD) Non-Af 133 BUN/Creatinine Ratio 15.4 Glucose 238 H Calcium 9.2 Troponin I High Sens 4 Radiography Diagnostic Testing: Clinical Impression(s) from Imaging Studies Chest X-Ray 03/26/23 15:52 IMPRESSION: Diminished inspiratory effort. No acute cardio pulmonary pathology Electronically Signed: Miguelito Whitney MD at 17:02 EDT , Discharge Plan Triage Chief Complaint: Shortness of Breath ED Provider: Eliseo Prather Dx/Rx/DC Orders Instructions: Coronavirus Disease 2019 (COVID-19): Caring for Yourself or Others, ED Bronchitis with Wheezing (Adult) Prescriptions: New prednisone 50 mg tablet 50 mg PO DAILY Qty: 5 0RF ondansetron 4 mg tablet,disintegrating 4 mg PO Q8H PRN PRN (Reason: Nausea) Qty: 12 0RF albuterol sulfate 2.5 mg /3 mL (0.083 %) solution for nebulization 2.5 mg inhalation Q6H PRN (Reason: shortness of breath or wheezing) Qty: 75 0RF No Action glimepiride 2 mg tablet 4 mg PO DAILY Patient Comments: TAKE 1 TABLET BY MOUTH ONCE DAILY WITH BREAKFAST ferrous sulfate 325 MG tablet 1 tab PO DAILY Patient Comments: TAKE 1 TABLET BY MOUTH ONCE DAILY WITH BREAKFAST cholecalciferol (vitamin D3) 125 MCG capsule 125 mcg PO DAILY epinephrine 0.3 MG syringe 0.3 mg IM X1 PRN (Reason: Anaphylaxis) Qty: 1 0RF Fenofibrate 48 mg PO DAILY albuterol sulfate 2.5 mg /3 mL (0.083 %) solution for nebulization 2.5 mg inhalation PRN PRN (Reason: ASTHMA) Patient Comments: INHALE 1 VIAL VIA NEBULIZER EVERY 6 HOURS NEEDED FOR SHORTNESS OF BREATH AND WHEEZING lisinopril 5 mg tablet 5 mg PO DAILY Patient Comments: TAKE 1 TABLET BY MOUTH ONCE DAILY promethazine 25 mg tablet 25 mg PO Q6H PRN PRN (Reason: Nausea) Patient Comments: TAKE (1) TABLET BY MOUTH EVERY 6 HOURS NEEDED FOR NAUSEA/VOMITING aripiprazole 10 mg tablet 30 mg PO DAILY Patient Comments: TAKE 1 TABLET BY MOUTH EVERY DAY AT BEDTIME pantoprazole 40 mg Tablet,Delayed Release (Dr/Ec) 40 mg PO BID atorvastatin 10 mg tablet 10 mg PO QHS Patient Comments: TAKE 1 TABLET BY MOUTH ONCE DAILY AT BEDTIME FOR CHOLESTEROL lithium carbonate 150 mg capsule 150 mg PO BREAKFAST Ozempic 1 mg/dose (4 mg/3 mL) pen injector 1 mg SUBCUT QWEEK lithium carbonate 150 mg Capsule 150 mg PO QHS Patient Comments: stop lithium in 7 days hydroxyzine HCl 50 mg Tablet 100 mg PO QHS hydroxyzine HCl 50 mg Tablet 50 mg PO BID PRN PRN (Reason: Anxiety) metoprolol tartrate 75 mg Tablet 75 mg PO DAILY albuterol sulfate 90 mcg/actuation HFA aerosol inhaler 2 puff INHALATION PRN PRN (Reason: ASTHMA) Qty: 6.7 0RF hydrocodone-acetaminophen [hydrocodone-acetaminophen] 5-325 mg tablet 1 tab PO Q6H PRN PRN (Reason: Pain) 3 Days Qty: 10 0RF Rx Instructions: Emergency Rx Stand Alone Forms: ED Work / School Excuse Primary Care Provider: Miguelito Unger Referrals: Miguelito Unger MD [Primary Care Provider] - Disposition Disposition: Home, Self Care Discharge Date/Time: 03/26/23 17:47
[2023-03-26 15:55] VITALS: O2SAT 96
[2023-03-26] MEDS: Ipratropium/Albuterol Sulfate 3 ML AMPUL.NEB INHALATION (16:09)
[2023-03-26] MEDS: Albuterol 2.5 MG/3 ML VIAL.NEB. INHALATION (16:10)
[2023-03-26 16:11] VITALS: PULSE 116; RESP 16
[2023-03-26] MEDS: Ondansetron 4 MG/2 ML Vial IV (16:15)
[2023-03-26] MEDS: MethylPREDNISolone 125 MG/2 ML Vial IV (16:15)
[2023-03-26] MEDS: 0.9% Normal Saline (1000mL) 1,000 ML 999 ML IV (16:15)
[2023-03-26 16:23] LABS: Absolute Lymphocyte Count 1.34 X10^3/uL (0.83-4.51); Absolute Neutrophil Count 8.9 X10^3/uL (2.0-7.7); Basophil# 0.06 X10^3/uL; Basophil% 0.5 % (0-1); Eosinophil# 0.23 X10^3/uL; Hematocrit 37.8 % (37-47); Hemoglobin 11.8 g/dL (12.0-15.0); Lymphocyte # 1.34 X10^3/ul (0.83-4.51); Lymphocyte % 11.7 % (19-41); Mean Corp Hgb Conc 31.2 g/dL (32-36); Mean Corpuscular Hgb 26.2 pg (27.0-32.0); Mean Platelet Vol. 10.5 fl (6.2-12.0); Monocyte# 0.89 X10^3/uL; Monocyte% 7.7 % (0-10); NRBC Flagged by Analyzer 0 % (0-5); Neutrophil % 77.4 % (47-70); Platelet Count 314 K/mm3 (150-450); RBC Distribution Width CV 14.2 % (11.6-14.6); RBC Distribution Width SD 43.2 fl (35.1-43.9); White Blood Count 11.5 K/mm3 (4.4-11.0)
[2023-03-26 17:23] LABS: Anion Gap 7 (5-15); BUN 9 mg/dL (7-18); BUN/Creat Ratio 15.4 RATIO (10-20); Calcium,Total 9.2 mg/dL (8.5-10.1); Chloride 105 mmol/L (98-107); Creatinine, Serum 0.58 mg/dL (0.55-1.02); EST Glomerular Filtration Rate 133 mL/min (>60); Est Glom Filt Rate - Afr Amer 160 mL/min (>60); Estimated Creatinine Clearance 149.57 ml/min; Glucose 238 mg/dL (74-106); Potassium 3.9 mmol/L (3.5-5.1); Sodium Level 137 mmol/L (136-145); Troponin-I HS 4 pg/mL (3.0-54.0)
== END 2023-03-26 17:47 | disposition home or self-care (01) ==
PROVIDERS: Emergency Provider Student in an Organized Health Care Education/Training Program; PCP Family Medicine; Visit Provider Student in an Organized Health Care Education/Training Program
DX: U07.1 COVID-19 (principal); R11.2 Nausea with vomiting, unspecified; J45.909 Unspecified asthma, uncomplicated; K21.9 Gastro-esophageal reflux disease without esophagitis; Z23 Encounter for immunization; Z79.899 Other long term (current) drug therapy
CPT/HCPCS: 71045; 80048; 84484; 85025; 87428; 90471; 93005; 94640; 96374; 96375; 99285; J7030; A4216; J2405

== ENCOUNTER 2023-03-26 22:36 | Emergency (ER) | payer OTHER, MEDICAID, SELFPAY ==
[2023-03-26 22:38] VITALS: BP 163/98; PULSE 122; RESP 20; TEMP 36.1; O2SAT 95; BMI 66.4
[2023-03-26 22:41] VITALS: BP 163/98; PULSE 122; RESP 20; TEMP 36.1; O2SAT 95
[2023-03-26] MEDS: Insulin Lispro 100 UNIT/ML INSULN.PEN 16 UNIT SC (23:25)
[2023-03-26 23:56] LABS: Anion Gap 11 (5-15); BUN 10 mg/dL (7-18); Calcium,Total 9.7 mg/dL (8.5-10.1); Chloride 107 mmol/L (98-107); Creatinine, Serum 0.71 mg/dL (0.55-1.02); EST Glomerular Filtration Rate 106 mL/min (>60); Est Glom Filt Rate - Afr Amer 128 mL/min (>60); Estimated Creatinine Clearance 122.19 ml/min; Glucose 448 mg/dL (74-106); Potassium 4.4 mmol/L (3.5-5.1); Sodium Level 135 mmol/L (136-145)
--- NOTE | 2023-03-27 00:01 | EX.ED.DYSGE1 ---
HPI History of Present Illness Chief Complaint: Hyperglycemia Informant: patient Narrative Narrative: Several hours of polyuria, polydipsia, feels like her blood sugar is elevated, she checked it at home and it was in the high 400s. She was diagnosed with COVID earlier today and got a dose of Solu-Medrol in the ER, she has not started the prescription for prednisone yet which was given to her because of her asthma being flared up with this. The asthma has not been severe. She has not needed to use a breathing treatment or albuterol inhaler since she has been home. [facility] Medical History ADHD Anemia Anxiety disorder, unspecified Arthritis Asthma Bipolar 1 disorder Cancer Cancer Cardiology follow-up encounter Abner's disease Depression Diabetes Diabetes Dietary restriction Gastric reflux GERD (gastroesophageal reflux disease) Herniated disc History of echocardiogram History of irregular heartbeat History of pain when walking History of steroid therapy Hypertriglyceridemia Injury of back Injury of head and neck Kidney stones Non-smoker Obesity Obesity Ovarian cyst PCOS (polycystic ovarian syndrome) Proteinuria due to type 2 diabetes mellitus Walker as ambulation aid Home Medications ferrous sulfate 325 mg (65 mg iron) tablet 1 tab PO DAILY 05/16/19 [History Last Taken 01/24/21 08:00] cholecalciferol (vitamin D3) 125 mcg (5,000 unit) capsule 125 mcg PO DAILY supplement 05/17/19 [History Last Taken 01/24/21 08:00] epinephrine 0.3 mg/0.3 mL injection, auto-injector 0.3 mg (0.3 mL) IM X1 PRN Anaphylaxis ##1 05/14/20 [Rx Last Taken 01/30/21 08:00] Fenofibrate 48 mg PO DAILY 07/23/20 [History Last Taken 01/30/21 08:00] albuterol sulfate 2.5 mg/3 mL (0.083 %) solution for nebulization 2.5 mg inhalation PRN PRN ASTHMA 01/25/21 [History Last Taken 01/30/21 08:00] lisinopril 5 mg tablet 5 mg PO DAILY 01/25/21 [History Last Taken 01/30/21 08:00] aripiprazole 10 mg tablet 30 mg PO DAILY 07/16/21 [History Last Taken Unknown] promethazine 25 mg tablet 25 mg PO Q6H PRN PRN Nausea 07/16/21 [History Last Taken Unknown] pantoprazole 40 mg tablet,delayed release 40 mg PO BID 07/31/21 [History Last Taken Unknown] glimepiride 2 mg tablet 4 mg PO DAILY 01/07/22 [History Last Taken Unknown] atorvastatin 10 mg tablet 10 mg PO QHS 08/07/22 [History Last Taken Unknown] lithium carbonate 150 mg capsule 150 mg PO BREAKFAST 08/07/22 [History Last Taken Unknown] semaglutide 1 mg/dose (4 mg/3 mL) subcutaneous pen injector (Ozempic) 1 mg subcut QWEEK 08/07/22 [History Last Taken Unknown] hydroxyzine HCl 50 mg tablet 50 mg PO BID PRN PRN Anxiety 08/20/22 [History Last Taken Unknown] hydroxyzine HCl 50 mg tablet 100 mg PO QHS 08/20/22 [History Last Taken Unknown] lithium carbonate 150 mg capsule 150 mg PO QHS 08/20/22 [History Last Taken Unknown] metoprolol tartrate 75 mg tablet 75 mg PO DAILY 08/20/22 [History Last Taken Unknown] albuterol sulfate 90 mcg/actuation aerosol inhaler 2 puff inhalation PRN PRN ASTHMA #6.7 grams 10/22/22 [Rx Last Taken Unknown] hydrocodone-acetaminophen 5-325mg 5mg-325mg 1 tab PO Q6H PRN PRN Pain 3 days #10 TABLETS 02/07/23 [Rx Last Taken Unknown] albuterol sulfate 2.5 mg/3 mL (0.083 %) solution for nebulization 2.5 mg (3 mL) inhalation Q6H PRN shortness of breath or wheezing #75 mL 03/26/23 [Rx Last Taken Unknown] ondansetron 4 mg disintegrating tablet 4 mg PO Q8H PRN PRN Nausea #12 tabs 03/26/23 [Rx Last Taken Unknown] prednisone 50 mg tablet 50 mg PO DAILY #5 tabs 03/26/23 [Rx Last Taken Unknown] Allergy/AdvReac Type Severity Reaction Status Date / Time nitrofurantoin Allergy Intermediate rash Verified 03/26/23 22:38 [From Macrobid] penicillin V potassium Allergy Mild Rash Verified 03/26/23 22:38 [From Pen-Vee K] adhesive tape [plastic tape] Allergy Rash Verified 03/26/23 22:38 brompheniramine maleate Allergy Shortness Verified 03/26/23 22:38 [From Dimetapp of breath (brompheniramine-PPA)] celery Allergy Swelling Verified 03/26/23 22:38 phenylpropanolamine HCl Allergy Shortness Verified 03/26/23 22:38 [From Dimetapp of breath (brompheniramine-PPA)] amoxicillin trihydrate AdvReac Intermediate Diarrhea Verified 03/26/23 22:38 [From Augmentin] potassium clavulanate AdvReac Intermediate Diarrhea Verified 03/26/23 22:38 [From Augmentin] dicyclomine HCl [From Bentyl] AdvReac Nausea/Vom/ Verified 03/26/23 22:38 Diarrhea fructose AdvReac Nausea/Vom/ Verified 03/26/23 22:38 Diarrhea sertraline [From Zoloft] AdvReac Other Verified 03/26/23 22:38 Family History Father Diabetes Mother Hypertension Grandmother Breast cancer 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 H/O endoscopy H/O oophorectomy H/O ovarian cystectomy H/O partial adrenalectomy H/O wisdom tooth extraction History of adrenal surgery History of back surgery History of tonsillectomy and adenoidectomy Hx of cholecystectomy Social History household members: family Smoking Status: Never smoker alcohol intake: current alcohol intake frequency: a few times a month substance use type: does not use seatbelt use: always do you feel safe at home: Yes ROS ROS ED Constitutional Constitutional ED: Reports fever(s) and malaise; Denies chills Eyes Eyes: Denies change in vision or diplopia ENT ENT ED: Reports nasal congestion; Denies sore throat Cardiovascular Cardiovascular: Denies chest pain or palpitations Respiratory/Chest Respiratory/Chest: Reports cough; Denies dyspnea Gastrointestinal Gastrointestinal: Denies abdominal pain, diarrhea, nausea or vomiting Genitourinary Genitourinary ED: Denies dysuria or hematuria Musculoskeletal Musculoskeletal: Denies back pain or neck pain Integumentary Denies abscess or rash Neurologic Neurologic: Reports headache(s); Denies paresthesias or weakness Psychiatric Psychiatric: Denies anxiety or suicidal thoughts Endocrine Endocrinology: Reports polydipsia and polyuria EXAM Physical Exam Const Vital Signs: 03/26/23 22:38 03/26/23 22:41 03/26/23 23:22 Temperature 96.9 F L 96.9 F L Temperature Source Temporal Temporal Pulse Rate 122 H 122 H Respiratory Rate 20 H 20 H Respiratory Effort Normal Respiratory Pattern Normal Blood Pressure 163/98 H 163/98 H Blood Pressure Mean 119 119 Pulse Ox 95 95 Positive well nourished and well developed General Appearance ED: well developed and NAD HEENT Reports moist mucous membranes normocephalic and atraumatic Eyes PERRL and EOMs intact bilaterally Neck full ROM and supple Resp normal respiratory effort and clear to auscultation bilaterally Back/Spine no CVA tenderness General Back: other FROM Extremity normal to inspection General Extremety ED: Negative for edema General Extremity: Negative for edema Neuro oriented x3, CN's II-XII intact bilaterally and no sensory deficits noted Sensorium / Orientation: awake and alert Motor Exam: strength 5/5 throughout Skin no rashes or lesions noted and no wounds MDM MDM MDM Narrative Medical decision making narrative: Attempted to place an IV and give the patient a liter of IV fluids in addition to insulin, but she is a very difficult stick and after 3 attempts of family and we aborted the IV and fluids, I just gave her the insulin. I would advise her to not take the prednisone that was prescribed, and just to use albuterol going forward for her asthma symptoms, unless she really is needing to use it all day or having significant trouble with dyspnea to where the benefits of the steroid were outweigh the risks of hyperglycemia and dehydration. She has only had symptoms for a few hours so is not clinically dehydrated at this time and stable for discharge home she is keeping down oral fluids. Lab Data Attestation: I reviewed the patient's lab results. Labs: Laboratory Results - last 24 hr 03/26/23 23:21 Sodium 135 L Potassium 4.4 Chloride 107 Carbon Dioxide 17.0 L Anion Gap 11 BUN 10 Creatinine 0.71 Estim Creat Clear Calc 122.19 Est GFR (MDRD) Af Amer 128 Est GFR (MDRD) Non-Af 106 BUN/Creatinine Ratio 14.0 Glucose 448 H Calcium 9.7 Rhythm Strip Rhythm Strip: Sinus Tach Rate: 120 Ectopy: None Discharge Plan Triage Chief Complaint: Hyperglycemia ED Provider: Wilman Chavarria Dx/Rx/DC Orders Clinical Impression: Hyperglycemia, drug-induced, Type 2 diabetes mellitus Instructions: ED Diabetic Hyperglycemia Prescriptions: No Action glimepiride 2 mg tablet 4 mg PO DAILY Patient Comments: TAKE 1 TABLET BY MOUTH ONCE DAILY WITH BREAKFAST ferrous sulfate 325 MG tablet 1 tab PO DAILY Patient Comments: TAKE 1 TABLET BY MOUTH ONCE DAILY WITH BREAKFAST cholecalciferol (vitamin D3) 125 MCG capsule 125 mcg PO DAILY epinephrine 0.3 MG syringe 0.3 mg IM X1 PRN (Reason: Anaphylaxis) Qty: 1 0RF Fenofibrate 48 mg PO DAILY albuterol sulfate 2.5 mg /3 mL (0.083 %) solution for nebulization 2.5 mg inhalation PRN PRN (Reason: ASTHMA) Patient Comments: INHALE 1 VIAL VIA NEBULIZER EVERY 6 HOURS NEEDED FOR SHORTNESS OF BREATH AND WHEEZING lisinopril 5 mg tablet 5 mg PO DAILY Patient Comments: TAKE 1 TABLET BY MOUTH ONCE DAILY promethazine 25 mg tablet 25 mg PO Q6H PRN PRN (Reason: Nausea) Patient Comments: TAKE (1) TABLET BY MOUTH EVERY 6 HOURS NEEDED FOR NAUSEA/VOMITING aripiprazole 10 mg tablet 30 mg PO DAILY Patient Comments: TAKE 1 TABLET BY MOUTH EVERY DAY AT BEDTIME pantoprazole 40 mg Tablet,Delayed Release (Dr/Ec) 40 mg PO BID atorvastatin 10 mg tablet 10 mg PO QHS Patient Comments: TAKE 1 TABLET BY MOUTH ONCE DAILY AT BEDTIME FOR CHOLESTEROL lithium carbonate 150 mg capsule 150 mg PO BREAKFAST Ozempic 1 mg/dose (4 mg/3 mL) pen injector 1 mg SUBCUT QWEEK lithium carbonate 150 mg Capsule 150 mg PO QHS Patient Comments: stop lithium in 7 days hydroxyzine HCl 50 mg Tablet 100 mg PO QHS hydroxyzine HCl 50 mg Tablet 50 mg PO BID PRN PRN (Reason: Anxiety) metoprolol tartrate 75 mg Tablet 75 mg PO DAILY albuterol sulfate 90 mcg/actuation HFA aerosol inhaler 2 puff INHALATION PRN PRN (Reason: ASTHMA) Qty: 6.7 0RF prednisone 50 mg tablet 50 mg PO DAILY Qty: 5 0RF ondansetron 4 mg tablet,disintegrating 4 mg PO Q8H PRN PRN (Reason: Nausea) Qty: 12 0RF albuterol sulfate 2.5 mg /3 mL (0.083 %) solution for nebulization 2.5 mg inhalation Q6H PRN (Reason: shortness of breath or wheezing) Qty: 75 0RF hydrocodone-acetaminophen [hydrocodone-acetaminophen] 5-325 mg tablet 1 tab PO Q6H PRN PRN (Reason: Pain) 3 Days Qty: 10 0RF Rx Instructions: Emergency Rx Primary Care Provider: Miguelito Unger Referrals: Miguelito Unger MD [Primary Care Provider] - As Needed Activity Restrictions/Additional Instructions: Do not take the prescribed prednisone, instead simply treat any asthma symptoms with your rescue inhaler and/or albuterol. If you are really having significant trouble breathing, you may try taking the prednisone but I would recommend half the dose of what is prescribed. If everything is worse and you feel you need to be seen in the emergency department you are welcome to return. Try to drink as much fluid as you can given your high blood sugar which can cause dehydration. Disposition Disposition: Home, Self Care
[2023-03-27] MEDS: Insulin Lispro 100 UNIT/ML INSULN.PEN 12 UNIT SC (00:55)
[2023-03-27 01:00] VITALS: BP 159/72; PULSE 100; RESP 20; O2SAT 97
[2023-03-27 01:03] LABS: Bedside Glucose 429 mg/dL (74-106)
[2023-03-29 03:07] LABS: Bedside Glucose 432 mg/dL (74-106)
== END 2023-03-27 01:01 | disposition home or self-care (01) ==
PROVIDERS: Emergency Provider Emergency Medicine; PCP Family Medicine; Visit Provider Emergency Medicine
DX: E11.65 Type 2 diabetes mellitus with hyperglycemia (principal); U07.1 COVID-19
CPT/HCPCS: 36415; 71045; 80048; 82962; 84484; 85025; 87428; 90471; 93005; 94640; 96374; 96375; 99282; 99285; J7030; A4216; J2405

== ENCOUNTER 2023-03-27 23:52 | Emergency (ER) | payer OTHER, MEDICAID, SELFPAY ==
[2023-03-27 23:53] VITALS: BP 155/73; PULSE 154; RESP 28; TEMP 36.5; O2SAT 100; BMI 66.5
[2023-03-28 01:52] VITALS: PULSE 154; O2SAT 97
[2023-03-28 01:57] VITALS: O2SAT 96
[2023-03-28 02:35] LABS: Absolute Lymphocyte Count 1.08 X10^3/uL (0.83-4.51); Absolute Neutrophil Count 10.8 X10^3/uL (2.0-7.7); Basophil# 0.05 X10^3/uL; Basophil% 0.4 % (0-1); Eosinophil# 0.05 X10^3/uL; Eosinophils% 0.4 % (0-5); Hematocrit 39.5 % (37-47); Hemoglobin 12.4 g/dL (12.0-15.0); Lymphocyte # 1.08 X10^3/ul (0.83-4.51); Lymphocyte % 8.7 % (19-41); Mean Corp Hgb Conc 31.4 g/dL (32-36); Mean Corpuscular Hgb 26.4 pg (27.0-32.0); Mean Platelet Vol. 10.4 fl (6.2-12.0); Monocyte# 0.31 X10^3/uL; Monocyte% 2.5 % (0-10); NRBC Flagged by Analyzer 0 % (0-5); Neutrophil # 10.78 X10^3/uL (2.7-7.7); Neutrophil % 87.3 % (47-70); Platelet Count 333 K/mm3 (150-450); RBC Distribution Width CV 14.6 % (11.6-14.6); RBC Distribution Width SD 44.2 fl (35.1-43.9); White Blood Count 12.4 K/mm3 (4.4-11.0)
[2023-03-28] MEDS: 0.9% Normal Saline (1000mL) 1,000 ML 999 ML IV (02:36)
[2023-03-28 02:49] LABS: Anion Gap 10 (5-15); BUN 15 mg/dL (7-18); BUN/Creat Ratio 18.4 RATIO (10-20); Calcium,Total 8.9 mg/dL (8.5-10.1); Chloride 104 mmol/L (98-107); Creatinine, Serum 0.81 mg/dL (0.55-1.02); EST Glomerular Filtration Rate 91 mL/min (>60); Est Glom Filt Rate - Afr Amer 110 mL/min (>60); Glucose 264 mg/dL (74-106); Magnesium 1.3 mg/dL (1.6-2.6); Potassium 3.3 mmol/L (3.5-5.1); Sodium Level 136 mmol/L (136-145)
[2023-03-28 02:55] LABS: D-Dimer Quantitative (DVT/PE) 1.08 FEU/ug/m (0.27-0.49)
--- NOTE | 2023-03-28 02:56 | CT_ITS ---
INDICATION: dyspnea with elevated d-dimer EXAMINATION: CT CHEST WITH CONTRAST - CTA Chest WO/W Contrast Injection TECHNIQUE: Helically acquired images were obtained of the chest following IV contrast timed in the pulmonary arterial phase with sagittal and coronal reconstructed images. Post-processing of the angiographic images was performed with multiplanar reformation and 3D reconstruction. Individualized dose optimization techniques were used for this CT. IV contrast dosage and agent: 100 mL of Isovue-370. COMPARISON: None. FINDINGS: LUNGS, PLEURA AND LARGE AIRWAYS: No consolidation or edema. No pulmonary nodule. No pleural effusion. No pneumothorax. THYROID: Unremarkable. HEART AND PERICARDIUM: No evidence of coronary artery calcification. No pericardial effusion. No evidence of right heart strain. Right ventricle to left ventricle ratio measures less than 1. MEDIASTINUM AND JAMES: No mediastinal or hilar adenopathy. Esophagus is unremarkable. No hiatal hernia. VESSELS: No evidence of a pulmonary embolism. The distal lobar and the segmental and subsegmental pulmonary arteries are not well opacified. No thoracic aortic aneurysm. UPPER ABDOMEN: The visualized upper abdomen is unremarkable. BONES: No acute abnormality. CT/CTA Chest W/WO Contrast IMPRESSION: Significantly limited exam due to artifact from patient''s body habitus and timing of contrast bolus. The distal lobar, segmental and subsegmental pulmonary arteries were not well opacified and therefore not well evaluated for pulmonary emboli. Electronically Signed: Miguelito James DO at 3:56 EDT ,
[2023-03-28 03:00] VITALS: BP 148/77; PULSE 151; RESP 24; O2SAT 95
[2023-03-28 03:23] LABS: International Normalized Ratio 1.1; Prothrombin Time (Protime)PT. 14.2 SECONDS (11.7-14.9)
[2023-03-28 03:24] LABS: Partial Thromboplast Time 25.1 Seconds (24.1-36.2)
--- NOTE | 2023-03-28 04:04 | EX.ED.DYSGE1 ---
HPI History of Present Illness Chief Complaint: Shortness of Breath Informant: patient and family Narrative Narrative: Patient is a 27-year-old female with past medical history of diabetes and asthma. She states that roughly 2 to 3 days ago she developed some congestion fatigue and shortness of breath and was evaluated in the hospital and was positive for COVID. She states that today mainly with any type of ambulation or motion she felt dizzy and short of breath. Secondary to these changes she was concerned that her COVID may be worsening and therefore comes in for evaluation [facility] Medical History ADHD Anemia Anxiety disorder, unspecified Arthritis Asthma Bipolar 1 disorder Cancer Cancer Cardiology follow-up encounter [place]'s disease Depression Diabetes Diabetes Dietary restriction Gastric reflux GERD (gastroesophageal reflux disease) Herniated disc History of echocardiogram History of irregular heartbeat History of pain when walking History of steroid therapy Hypertriglyceridemia Injury of back Injury of head and neck Kidney stones Non-smoker Obesity Obesity Ovarian cyst PCOS (polycystic ovarian syndrome) Proteinuria due to type 2 diabetes mellitus Walker as ambulation aid Home Medications ferrous sulfate 325 mg (65 mg iron) tablet 1 tab PO DAILY 05/16/19 [History Last Taken 01/24/21 08:00] cholecalciferol (vitamin D3) 125 mcg (5,000 unit) capsule 125 mcg PO DAILY supplement 05/17/19 [History Last Taken 01/24/21 08:00] epinephrine 0.3 mg/0.3 mL injection, auto-injector 0.3 mg (0.3 mL) IM X1 PRN Anaphylaxis ##1 05/14/20 [Rx Last Taken 01/30/21 08:00] Fenofibrate 48 mg PO DAILY 07/23/20 [History Last Taken 01/30/21 08:00] albuterol sulfate 2.5 mg/3 mL (0.083 %) solution for nebulization 2.5 mg inhalation PRN PRN ASTHMA 01/25/21 [History Last Taken 01/30/21 08:00] lisinopril 5 mg tablet 5 mg PO DAILY 01/25/21 [History Last Taken 01/30/21 08:00] aripiprazole 10 mg tablet 30 mg PO DAILY 07/16/21 [History Last Taken Unknown] promethazine 25 mg tablet 25 mg PO Q6H PRN PRN Nausea 07/16/21 [History Last Taken Unknown] pantoprazole 40 mg tablet,delayed release 40 mg PO BID 07/31/21 [History Last Taken Unknown] glimepiride 2 mg tablet 4 mg PO DAILY 01/07/22 [History Last Taken Unknown] atorvastatin 10 mg tablet 10 mg PO QHS 08/07/22 [History Last Taken Unknown] lithium carbonate 150 mg capsule 150 mg PO BREAKFAST 08/07/22 [History Last Taken Unknown] semaglutide 1 mg/dose (4 mg/3 mL) subcutaneous pen injector (Ozempic) 1 mg subcut QWEEK 08/07/22 [History Last Taken Unknown] hydroxyzine HCl 50 mg tablet 50 mg PO BID PRN PRN Anxiety 08/20/22 [History Last Taken Unknown] hydroxyzine HCl 50 mg tablet 100 mg PO QHS 08/20/22 [History Last Taken Unknown] lithium carbonate 150 mg capsule 150 mg PO QHS 08/20/22 [History Last Taken Unknown] metoprolol tartrate 75 mg tablet 75 mg PO DAILY 08/20/22 [History Last Taken Unknown] albuterol sulfate 90 mcg/actuation aerosol inhaler 2 puff inhalation PRN PRN ASTHMA #6.7 grams 10/22/22 [Rx Last Taken Unknown] hydrocodone-acetaminophen 5-325mg 5mg-325mg 1 tab PO Q6H PRN PRN Pain 3 days #10 TABLETS 02/07/23 [Rx Last Taken Unknown] albuterol sulfate 2.5 mg/3 mL (0.083 %) solution for nebulization 2.5 mg (3 mL) inhalation Q6H PRN shortness of breath or wheezing #75 mL 03/26/23 [Rx Last Taken Unknown] ondansetron 4 mg disintegrating tablet 4 mg PO Q8H PRN PRN Nausea #12 tabs 03/26/23 [Rx Last Taken Unknown] prednisone 50 mg tablet 50 mg PO DAILY #5 tabs 03/26/23 [Rx Last Taken Unknown] nirmatrelvir 300 mg (150 mg x2)-ritonavir 100 mg tablet,dose pack (Paxlovid) See Rx Instructions PO .COMPLEX #30 tabs 03/28/23 [Rx Last Taken Unknown] Allergy/AdvReac Type Severity Reaction Status Date / Time nitrofurantoin Allergy Intermediate rash Verified 03/27/23 23:53 [From Macrobid] penicillin V potassium Allergy Mild Rash Verified 03/27/23 23:53 [From Pen-Vee K] adhesive tape [plastic tape] Allergy Rash Verified 03/27/23 23:53 brompheniramine maleate Allergy Shortness Verified 03/27/23 23:53 [From Dimetapp of breath (brompheniramine-PPA)] celery Allergy Swelling Verified 03/27/23 23:53 phenylpropanolamine HCl Allergy Shortness Verified 03/27/23 23:53 [From Dimetapp of breath (brompheniramine-PPA)] amoxicillin trihydrate AdvReac Intermediate Diarrhea Verified 03/27/23 23:53 [From Augmentin] potassium clavulanate AdvReac Intermediate Diarrhea Verified 03/27/23 23:53 [From Augmentin] dicyclomine HCl [From Bentyl] AdvReac Nausea/Vom/ Verified 03/27/23 23:53 Diarrhea fructose AdvReac Nausea/Vom/ Verified 03/27/23 23:53 Diarrhea sertraline [From Zoloft] AdvReac Other Verified 03/27/23 23:53 Family History Father Diabetes Mother Hypertension Grandmother Breast cancer 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 H/O endoscopy H/O oophorectomy H/O ovarian cystectomy H/O partial adrenalectomy H/O wisdom tooth extraction History of adrenal surgery History of back surgery History of tonsillectomy and adenoidectomy Hx of cholecystectomy Social History household members: family Smoking Status: Never smoker alcohol intake: current alcohol intake frequency: a few times a month substance use type: does not use seatbelt use: always do you feel safe at home: Yes ROS ROS ED Constitutional Constitutional ED: Denies chills or fever(s) Eyes Eyes: Denies change in vision ENT ENT ED: Reports rhinorrhea and sore throat Cardiovascular Cardiovascular: Reports racing heartbeat; Denies chest pain Respiratory/Chest Respiratory/Chest: Reports cough and dyspnea Gastrointestinal Gastrointestinal: Denies abdominal pain, diarrhea, nausea or vomiting Genitourinary Genitourinary ED: Denies dysuria Musculoskeletal Musculoskeletal: Reports myalgias Integumentary Denies rash Neurologic Neurologic: Reports headache(s) Hematologic/Lymphatic Hematologic/Lymphatic: Denies easy bleeding or easy bruising EXAM Physical Exam Const Vital Signs: 03/27/23 23:53 03/27/23 23:52 03/28/23 01:52 Temperature 97.7 F L Temperature Source Temporal Pulse Rate 154 H 154 H Respiratory Rate 28 H Respiratory Effort Short of Breath Respiratory Depth Shallow Respiratory Pattern Tachypnea Blood Pressure 155/73 H Blood Pressure Mean 100 Pulse Ox 100 97 Oxygen Delivery Method Room Air Room Air 03/28/23 03:00 Temperature Temperature Source Pulse Rate 151 H Respiratory Rate 24 H Respiratory Effort Respiratory Depth Respiratory Pattern Blood Pressure 148/77 H Blood Pressure Mean 100 Pulse Ox 95 Oxygen Delivery Method Room Air Positive well nourished, well developed and obese General Appearance ED: well developed Nutritional Appearance: obese HEENT HEENT Narrative: Cobblestoning the posterior pharynx consistent with sinus drainage without airway edema or compromise No secondary changes noted in the posterior pharynx to suggest infection Eyes PERRL and EOMs intact bilaterally Neck supple and no JVD Neck Narrative: No nuchal rigidity or meningeal signs noted Chest Wall palpation of chest normal Resp Resp Narrative: Patient has mild respiratory distress with slight tachypnea and accessory muscle use. Breath sounds are diminished throughout with faint expiratory wheeze. Cardio regular rhythm Rate: tachycardic and other Other Details: Tachycardic rate with regular rhythm No murmurs rubs or gallops noted Radial and carotid pulses equal and symmetric Extremity normal to inspection Extremity Narrative: No asymmetric edema no pitting edema negative Homans' sign bilaterally Neuro oriented x3, CN's II-XII intact bilaterally and no sensory deficits noted Sensorium / Orientation: alert Motor Exam: strength 5/5 throughout Psych mental status grossly normal Skin no rashes or lesions noted MDM MDM MDM Narrative Medical decision making narrative: Patient presented to the ER tachycardic at approximate 150 bpm. She states her baseline heart rate is approximately 110. With her recent COVID diagnosis there is concern that she could be developing a potential pulmonary embolus based on the tachycardia and secondary to this basic laboratory studies were obtained. Differential diagnosis is for COVID-19 versus COVID-pneumonia versus pulmonary embolus versus acute blood loss anemia versus acute kidney injury. Blood work revealed an elevated D-dimer which could be secondary to her COVID diagnosis but also potentially a pulmonary embolus based on her tachycardia. Therefore CTA was obtained which revealed no sign of heart strain or obvious large pulmonary embolus. The patient was ambulated and heart rate remained stable at 150 and pulse ox however between 96 to 97% on room air. At this time as the patient does not have findings for acute kidney injury or DKA and there is no hypoxia with ambulation and CTA does not reveal a large pulmonary embolus I do not feel there is need for further treatment in the hospital and she will be discharged home with symptomatic care History & Record Review Discussion w/independent historian: Patient and Family Lab Data Attestation: I reviewed the patient's lab results. Labs: Laboratory Results - last 24 hr 03/28/23 03/28/23 02:31 02:34 WBC 12.4 H RBC 4.70 Hgb 12.4 Hct 39.5 MCV 84.0 MCH 26.4 L MCHC 31.4 L RDW Std Deviation 44.2 H RDW Coeff of Silvia 14.6 Plt Count 333 MPV 10.4 Immature Gran % (Auto) 0.700 Neut % (Auto) 87.3 H Lymph % (Auto) 8.7 L Cloud % (Auto) 2.5 Eos % (Auto) 0.4 Baso % (Auto) 0.4 Absolute Neuts (auto) 10.8 H Absolute Lymphs (auto) 1.08 Nucleated RBC % 0 PT 14.2 INR 1.1 APTT 25.1 D-Dimer Quant (PE/DVT) 1.08 H* Sodium 136 Potassium 3.3 L Chloride 104 Carbon Dioxide 22.0 Anion Gap 10 BUN 15 Creatinine 0.81 Estim Creat Clear Calc 107.10 Est GFR (MDRD) Af Amer 110 Est GFR (MDRD) Non-Af 91 BUN/Creatinine Ratio 18.4 Glucose 264 H Calcium 8.9 Magnesium 1.3 L Radiography Diagnostic Testing: Clinical Impression(s) from Imaging Studies Chest CTA 03/28/23 02:56 IMPRESSION: Significantly limited exam due to artifact from patient''s body habitus and timing of contrast bolus. The distal lobar, segmental and subsegmental pulmonary arteries were not well opacified and therefore not well evaluated for pulmonary emboli. Electronically Signed: Miguelito James DO at 3:56 EDT , Discharge Plan Triage Chief Complaint: Shortness of Breath ED Provider: Sudarshan Angelo Dx/Rx/DC Orders Clinical Impression: COVID-19, Type 2 diabetes mellitus, Sinus tachycardia Instructions: Coronavirus Disease 2019 (COVID-19): Caring for Yourself or Others Prescriptions: New Paxlovid 300 mg (150 mg x 2)-100 mg tablets,dose pack See Rx Instructions .ROUTE .COMPLEX Qty: 30 0RF Rx Instructions: take TWO 150 mg tablets of nirmatrelvir with ONE 100 mg tablet of ritonavir twice daily for 5 days No Action glimepiride 2 mg tablet 4 mg PO DAILY Patient Comments: TAKE 1 TABLET BY MOUTH ONCE DAILY WITH BREAKFAST ferrous sulfate 325 MG tablet 1 tab PO DAILY Patient Comments: TAKE 1 TABLET BY MOUTH ONCE DAILY WITH BREAKFAST cholecalciferol (vitamin D3) 125 MCG capsule 125 mcg PO DAILY epinephrine 0.3 MG syringe 0.3 mg IM X1 PRN (Reason: Anaphylaxis) Qty: 1 0RF Fenofibrate 48 mg PO DAILY albuterol sulfate 2.5 mg /3 mL (0.083 %) solution for nebulization 2.5 mg inhalation PRN PRN (Reason: ASTHMA) Patient Comments: INHALE 1 VIAL VIA NEBULIZER EVERY 6 HOURS NEEDED FOR SHORTNESS OF BREATH AND WHEEZING lisinopril 5 mg tablet 5 mg PO DAILY Patient Comments: TAKE 1 TABLET BY MOUTH ONCE DAILY promethazine 25 mg tablet 25 mg PO Q6H PRN PRN (Reason: Nausea) Patient Comments: TAKE (1) TABLET BY MOUTH EVERY 6 HOURS NEEDED FOR NAUSEA/VOMITING aripiprazole 10 mg tablet 30 mg PO DAILY Patient Comments: TAKE 1 TABLET BY MOUTH EVERY DAY AT BEDTIME pantoprazole 40 mg Tablet,Delayed Release (Dr/Ec) 40 mg PO BID atorvastatin 10 mg tablet 10 mg PO QHS Patient Comments: TAKE 1 TABLET BY MOUTH ONCE DAILY AT BEDTIME FOR CHOLESTEROL lithium carbonate 150 mg capsule 150 mg PO BREAKFAST Ozempic 1 mg/dose (4 mg/3 mL) pen injector 1 mg SUBCUT QWEEK lithium carbonate 150 mg Capsule 150 mg PO QHS Patient Comments: stop lithium in 7 days hydroxyzine HCl 50 mg Tablet 100 mg PO QHS hydroxyzine HCl 50 mg Tablet 50 mg PO BID PRN PRN (Reason: Anxiety) metoprolol tartrate 75 mg Tablet 75 mg PO DAILY albuterol sulfate 90 mcg/actuation HFA aerosol inhaler 2 puff INHALATION PRN PRN (Reason: ASTHMA) Qty: 6.7 0RF prednisone 50 mg tablet 50 mg PO DAILY Qty: 5 0RF ondansetron 4 mg tablet,disintegrating 4 mg PO Q8H PRN PRN (Reason: Nausea) Qty: 12 0RF albuterol sulfate 2.5 mg /3 mL (0.083 %) solution for nebulization 2.5 mg inhalation Q6H PRN (Reason: shortness of breath or wheezing) Qty: 75 0RF hydrocodone-acetaminophen [hydrocodone-acetaminophen] 5-325 mg tablet 1 tab PO Q6H PRN PRN (Reason: Pain) 3 Days Qty: 10 0RF Rx Instructions: Emergency Rx Primary Care Provider: Miguelito Ungre Referrals: Miguelito Unger MD [Primary Care Provider] - Activity Restrictions/Additional Instructions: Please keep yourself well-hydrated and continue your home medications as previously directed. You will need to hold your atorvastatin/high cholesterol medication while you are on the Paxlovid. If you have any further concerns or worsening symptoms please return to the ER for repeat evaluation Disposition Disposition: Home, Self Care Discharge Date/Time: 03/28/23 04:46
== END 2023-03-28 04:46 | disposition home or self-care (01) ==
PROVIDERS: Emergency Provider Emergency Medicine; PCP Family Medicine; Visit Provider Emergency Medicine
DX: U07.1 COVID-19 (principal); E11.9 Type 2 diabetes mellitus without complications; R00.0 Tachycardia, unspecified
CPT/HCPCS: 71275; 80048; 83735; 85025; 85379; 85610; 85730; 93005; 99283; J7030; Q9967; A4216

== ENCOUNTER 2023-08-31 08:38 | Emergency (ER) | payer MEDICAID, SELFPAY ==
[2023-08-31 08:38] VITALS: BP 145/72; PULSE 102; RESP 16; TEMP 36.3; O2SAT 95; BMI 64.3
--- NOTE | 2023-08-31 09:00 | EX.ED.DYSGE1 ---
HPI History of Present Illness Chief Complaint: Nausea/Vomiting/Diarrhea Informant: patient and parent Narrative Narrative: 28-year-old female presenting to the emergency room with vomiting diarrhea. Patient states that on Thursday she began to have vomiting and diarrhea. She denies any blood in the stools or vomit. No fevers. No significant cough or rhinorrhea or rashes. She states that her friends children 1 by fell ill with similar illness on Thursday. Patient states that she started to feel dehydrated. She notes lightheadedness particularly with exertion. She states it has been very difficult for her to keep any fluids down. She notes she started gabapentin about 1 month ago but otherwise no new medicines. She had been on gabapentin before without difficulties. She describes the stool as brown water. She denies known kidney issues. No significant muscle cramping. [facility] Medical History ADHD Anemia Anxiety disorder, unspecified Arthritis Asthma Bipolar 1 disorder Cancer Cancer Cardiology follow-up encounter Abner's disease Depression Diabetes Diabetes Dietary restriction Gastric reflux GERD (gastroesophageal reflux disease) Herniated disc History of echocardiogram History of irregular heartbeat History of pain when walking History of steroid therapy Hypertriglyceridemia Injury of back Injury of head and neck Kidney stones Non-smoker Obesity Obesity Ovarian cyst PCOS (polycystic ovarian syndrome) Proteinuria due to type 2 diabetes mellitus Walker as ambulation aid Home Medications ferrous sulfate 325 mg (65 mg iron) tablet 1 tab PO DAILY 05/16/19 [History Last Taken 01/24/21 08:00] cholecalciferol (vitamin D3) 125 mcg (5,000 unit) capsule 125 mcg PO DAILY supplement 05/17/19 [History Last Taken 01/24/21 08:00] epinephrine 0.3 mg/0.3 mL injection, auto-injector 0.3 mg (0.3 mL) IM X1 PRN Anaphylaxis ##1 05/14/20 [Rx Last Taken 01/30/21 08:00] Fenofibrate 48 mg PO DAILY 07/23/20 [History Last Taken 01/30/21 08:00] albuterol sulfate 2.5 mg/3 mL (0.083 %) solution for nebulization 2.5 mg inhalation PRN PRN ASTHMA 01/25/21 [History Last Taken 01/30/21 08:00] lisinopril 5 mg tablet 5 mg PO DAILY 01/25/21 [History Last Taken 01/30/21 08:00] aripiprazole 10 mg tablet 30 mg PO DAILY 07/16/21 [History Last Taken Unknown] promethazine 25 mg tablet 25 mg PO Q6H PRN PRN Nausea 07/16/21 [History Last Taken Unknown] pantoprazole 40 mg tablet,delayed release 40 mg PO BID 07/31/21 [History Last Taken Unknown] glimepiride 2 mg tablet 4 mg PO DAILY 01/07/22 [History Last Taken Unknown] atorvastatin 10 mg tablet 10 mg PO QHS 08/07/22 [History Last Taken Unknown] lithium carbonate 150 mg capsule 150 mg PO BREAKFAST 08/07/22 [History Last Taken Unknown] semaglutide 1 mg/dose (4 mg/3 mL) subcutaneous pen injector (Ozempic) 1 mg subcut QWEEK 08/07/22 [History Last Taken Unknown] hydroxyzine HCl 50 mg tablet 50 mg PO BID PRN PRN Anxiety 08/20/22 [History Last Taken Unknown] hydroxyzine HCl 50 mg tablet 100 mg PO QHS 08/20/22 [History Last Taken Unknown] lithium carbonate 150 mg capsule 150 mg PO QHS 08/20/22 [History Last Taken Unknown] metoprolol tartrate 75 mg tablet 75 mg PO DAILY 08/20/22 [History Last Taken Unknown] albuterol sulfate 90 mcg/actuation aerosol inhaler 2 puff inhalation PRN PRN ASTHMA #6.7 grams 10/22/22 [Rx Last Taken Unknown] hydrocodone-acetaminophen 5-325mg 5mg-325mg 1 tab PO Q6H PRN PRN Pain 3 days #10 TABLETS 02/07/23 [Rx Last Taken Unknown] albuterol sulfate 2.5 mg/3 mL (0.083 %) solution for nebulization 2.5 mg (3 mL) inhalation Q6H PRN shortness of breath or wheezing #75 mL 03/26/23 [Rx Last Taken Unknown] ondansetron 4 mg disintegrating tablet 4 mg PO Q8H PRN PRN Nausea #12 tabs 03/26/23 [Rx Last Taken Unknown] prednisone 50 mg tablet 50 mg PO DAILY #5 tabs 03/26/23 [Rx Last Taken Unknown] nirmatrelvir 300 mg (150 mg x2)-ritonavir 100 mg tablet,dose pack (Paxlovid) See Rx Instructions PO .COMPLEX #30 tabs 03/28/23 [Rx Last Taken Unknown] ondansetron 4 mg disintegrating tablet 4 mg PO Q6H PRN PRN Nausea #15 tabs 08/31/23 [Rx Last Taken Unknown] Allergy/AdvReac Type Severity Reaction Status Date / Time nitrofurantoin Allergy Intermediate rash Verified 08/31/23 08:41 [From Macrobid] penicillin V potassium Allergy Mild Rash Verified 08/31/23 08:41 [From Pen-Vee K] adhesive tape [plastic tape] Allergy Rash Verified 08/31/23 08:41 brompheniramine maleate Allergy Shortness Verified 08/31/23 08:41 [From Dimetapp of breath (brompheniramine-PPA)] celery Allergy Swelling Verified 08/31/23 08:41 phenylpropanolamine HCl Allergy Shortness Verified 08/31/23 08:41 [From Dimetapp of breath (brompheniramine-PPA)] amoxicillin trihydrate AdvReac Intermediate Diarrhea Verified 08/31/23 08:41 [From Augmentin] potassium clavulanate AdvReac Intermediate Diarrhea Verified 08/31/23 08:41 [From Augmentin] dicyclomine HCl [From Bentyl] AdvReac Nausea/Vom/ Verified 08/31/23 08:41 Diarrhea fructose AdvReac Nausea/Vom/ Verified 08/31/23 08:41 Diarrhea sertraline [From Zoloft] AdvReac Other Verified 08/31/23 08:41 Family History Father Diabetes Mother Hypertension Grandmother Breast cancer 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 H/O endoscopy H/O oophorectomy H/O ovarian cystectomy H/O partial adrenalectomy H/O wisdom tooth extraction History of adrenal surgery History of back surgery History of tonsillectomy and adenoidectomy Hx of cholecystectomy Social History household members: family Smoking Status: Never smoker alcohol intake: current alcohol intake frequency: a few times a month substance use type: does not use seatbelt use: always do you feel safe at home: Yes ROS ROS ED ROS Narrative Lightheadedness particularly with exertion Constitutional Constitutional ED: Denies chills, fever(s) or weight loss Eyes Eyes: Denies change in vision or diplopia ENT ENT ED: Denies ear pain, rhinorrhea or sore throat Cardiovascular Cardiovascular: Denies chest pain, orthopnea, palpitations or racing heartbeat Respiratory/Chest Respiratory/Chest: Denies cough, dyspnea or orthopnea Gastrointestinal Gastrointestinal: Reports diarrhea, nausea and vomiting; Denies abdominal pain or melena Genitourinary Genitourinary ED: Reports other Details: Decreased urination ; Denies dysuria, hematuria or urinary frequency Musculoskeletal Musculoskeletal: Denies arthralgias or myalgias Integumentary Denies abscess or rash Neurologic Neurologic: Denies headache(s) or weakness Psychiatric Psychiatric: Denies anxiety, depression, suicidal ideation or suicidal thoughts Endocrine Endocrinology: Denies polydipsia, polyphagia or polyuria Allergic/Immunologic Allergic/Immunologic ED: Denies mouth swelling, tongue swelling or urticaria EXAM Physical Exam Const Vital Signs: 08/31/23 08:38 08/31/23 10:30 Temperature 97.3 F L Temperature Source Temporal Pulse Rate 102 H 98 Respiratory Rate 16 18 Blood Pressure 145/72 H 142/78 H Blood Pressure Mean 96 99 Pulse Ox 95 98 Oxygen Delivery Method Room Air Room Air Positive well nourished, well developed and obese General Appearance ED: well developed Nutritional Appearance: obese HEENT Reports normocephalic, head/scalp atraumatic and dry mucous membranes Mouth ED: Yes dry mucous membranes Mouth: dry mucous membranes Eyes PERRL and EOMs intact bilaterally Neck no lymphadenopathy, supple and no JVD Resp normal respiratory effort and clear to auscultation bilaterally Cardio regular rate, regular rhythm and no murmurs Cardio Narrative: HR 92 bpm on my exam GI normal to inspection, nondistended, normoactive bowel sounds and non-tender Palpation: soft Back/Spine no CVA tenderness and normal ROM Extremity normal to inspection General Extremety ED: Negative for edema General Extremity: Negative for edema Neuro oriented x3 and CN's II-XII intact bilaterally Sensorium / Orientation: alert Motor Exam: strength 5/5 throughout Psych mental status grossly normal Mood & Affect: Negative for depressed or tearful Skin no rashes or lesions noted and no wounds MDM MDM MDM Narrative Medical decision making narrative: Differential diagnosis includes but not limited to a viral or bacterial gastroenteritis, electrolyte disturbance, colitis, obstruction, lithium toxicity, acute kidney injury, hepatitis. Patient was given a liter of IV fluids and Zofran. Given the vomiting and diarrhea CMP was obtained. We also checked a lithium level. These were fairly unremarkable. No elevation liver enzymes other than AST of 80. ALT total bilirubin within normal limits. Glucose 255. Normal CO2 normal anion gap. Patient had a bowel movement here and states that she thinks she saw some bright red blood with it. She gave another specimen so we can send it to the lab is described as green by nursing. I will send this for enteric pathogens ova and parasites. I will write for the patient to have some Zofran. Most likely this is a viral gastroenteritis. Would recommend follow-up if not improving return if worsening History & Record Review Discussion w/independent historian: Patient and Family Lab Data Attestation: I reviewed the patient's lab results. Labs: Laboratory Results - last 24 hr 08/31/23 09:50 Sodium 136 Potassium 3.5 Chloride 106 Carbon Dioxide 23.0 Anion Gap 7 BUN 8 Creatinine 0.68 Estim Creat Clear Calc 227.78 Est GFR (MDRD) Af Amer 134 Est GFR (MDRD) Non-Af 111 BUN/Creatinine Ratio 11.7 Glucose 255 H Calcium 8.7 Total Bilirubin 0.40 AST 80 H ALT 45 Alkaline Phosphatase 57 Total Protein 7.3 Albumin 2.9 L Globulin 4.4 H Albumin/Globulin Ratio 0.7 L [place] < 0.20 L Discharge Plan Triage Chief Complaint: Nausea/Vomiting/Diarrhea ED Provider: Branden Kay Dx/Rx/DC Orders Clinical Impression: Nausea, vomiting and diarrhea, Gastroenteritis Instructions: ED Gastroenteritis, Viral (Adult) Prescriptions: New ondansetron [ondansetron] 4 mg tablet,disintegrating 4 mg PO Q6H PRN PRN (Reason: Nausea) Qty: 15 0RF No Action glimepiride 2 mg tablet 4 mg PO DAILY Patient Comments: TAKE 1 TABLET BY MOUTH ONCE DAILY WITH BREAKFAST ferrous sulfate 325 MG tablet 1 tab PO DAILY Patient Comments: TAKE 1 TABLET BY MOUTH ONCE DAILY WITH BREAKFAST cholecalciferol (vitamin D3) 125 MCG capsule 125 mcg PO DAILY epinephrine 0.3 MG syringe 0.3 mg IM X1 PRN (Reason: Anaphylaxis) Qty: 1 0RF Fenofibrate 48 mg PO DAILY albuterol sulfate 2.5 mg /3 mL (0.083 %) solution for nebulization 2.5 mg inhalation PRN PRN (Reason: ASTHMA) Patient Comments: INHALE 1 VIAL VIA NEBULIZER EVERY 6 HOURS NEEDED FOR SHORTNESS OF BREATH AND WHEEZING lisinopril 5 mg tablet 5 mg PO DAILY Patient Comments: TAKE 1 TABLET BY MOUTH ONCE DAILY promethazine 25 mg tablet 25 mg PO Q6H PRN PRN (Reason: Nausea) Patient Comments: TAKE (1) TABLET BY MOUTH EVERY 6 HOURS NEEDED FOR NAUSEA/VOMITING aripiprazole 10 mg tablet 30 mg PO DAILY Patient Comments: TAKE 1 TABLET BY MOUTH EVERY DAY AT BEDTIME pantoprazole 40 mg Tablet,Delayed Release (Dr/Ec) 40 mg PO BID atorvastatin 10 mg tablet 10 mg PO QHS Patient Comments: TAKE 1 TABLET BY MOUTH ONCE DAILY AT BEDTIME FOR CHOLESTEROL lithium carbonate 150 mg capsule 150 mg PO BREAKFAST Ozempic 1 mg/dose (4 mg/3 mL) pen injector 1 mg SUBCUT QWEEK lithium carbonate 150 mg Capsule 150 mg PO QHS Patient Comments: stop lithium in 7 days hydroxyzine HCl 50 mg Tablet 100 mg PO QHS hydroxyzine HCl 50 mg Tablet 50 mg PO BID PRN PRN (Reason: Anxiety) metoprolol tartrate 75 mg Tablet 75 mg PO DAILY albuterol sulfate 90 mcg/actuation HFA aerosol inhaler 2 puff INHALATION PRN PRN (Reason: ASTHMA) Qty: 6.7 0RF prednisone 50 mg tablet 50 mg PO DAILY Qty: 5 0RF ondansetron 4 mg tablet,disintegrating 4 mg PO Q8H PRN PRN (Reason: Nausea) Qty: 12 0RF albuterol sulfate 2.5 mg /3 mL (0.083 %) solution for nebulization 2.5 mg inhalation Q6H PRN (Reason: shortness of breath or wheezing) Qty: 75 0RF Paxlovid 300 mg (150 mg x 2)-100 mg tablets,dose pack See Rx Instructions .ROUTE .COMPLEX Qty: 30 0RF Rx Instructions: take TWO 150 mg tablets of nirmatrelvir with ONE 100 mg tablet of ritonavir twice daily for 5 days hydrocodone-acetaminophen [hydrocodone-acetaminophen] 5-325 mg tablet 1 tab PO Q6H PRN PRN (Reason: Pain) 3 Days Qty: 10 0RF Rx Instructions: Emergency Rx Primary Care Provider: Miguelito Unger Referrals: Miguelito Unger MD [Primary Care Provider] - As Needed
[2023-08-31] MEDS: Ondansetron 4 MG/2 ML Vial IV (10:14)
[2023-08-31] MEDS: 0.9% Normal Saline (1000mL) 1,000 ML 999 ML IV (10:14)
[2023-08-31 10:18] LABS: ALB/GLOB Ratio 0.7 RATIO (0.9-2.4); AST(SGOT) 80 U/L (15-37); Alanine Aminotransfer ALT/SGPT 45 U/L (13-56); Albumin, Serum 2.9 g/dL (3.2-5.0); Alkaline Phosphatase 57 U/L (45-117); Anion Gap 7 (5-15); BUN 8 mg/dL (7-18); BUN/Creat Ratio 11.7 RATIO (10-20); Calcium,Total 8.7 mg/dL (8.5-10.1); Chloride 106 mmol/L (98-107); Creatinine, Serum 0.68 mg/dL (0.55-1.02); EST Glomerular Filtration Rate 111 mL/min (>60); Est Glom Filt Rate - Afr Amer 134 mL/min (>60); Estimated Creatinine Clearance 227.78 ml/min; Globulin 4.4 g/dL (2.2-4.2); Glucose 255 mg/dL (74-106); Potassium 3.5 mmol/L (3.5-5.1); Protein, Total 7.3 g/dL (6.4-8.2); Sodium Level 136 mmol/L (136-145)
[2023-08-31 10:24] LABS: Lithium < 0.20 mmol/L (0.60-1.20)
[2023-08-31 10:30] VITALS: BP 142/78; PULSE 98; RESP 18; O2SAT 98
[2023-08-31 12:08] VITALS: BP 129/63; PULSE 71; RESP 18; TEMP 36.7; O2SAT 100
--- NOTE | 2023-08-31 15:26 | ED.RN ---
Pt called about pos norovirus. no further orders at this time. Pt told to make sure she is hydrating and treating the symptoms.
== END 2023-08-31 12:55 | disposition home or self-care (01) ==
PROVIDERS: Emergency Provider Emergency Medicine; PCP Family Medicine; Visit Provider Emergency Medicine
DX: K52.9 Noninfective gastroenteritis and colitis, unspecified (principal); F31.9 Bipolar disorder, unspecified; E66.9 Obesity, unspecified
CPT/HCPCS: 80053; 80178; 87177; 87209; 87329; 87506; 96374; 99282; J7030; A4216; J2405

== ENCOUNTER 2023-09-16 17:03 | Emergency (ER) | payer MEDICAID, SELFPAY ==
[2023-09-16 17:03] VITALS: BP 143/89; PULSE 98; RESP 22; TEMP 36.2; O2SAT 100; BMI 67.8
--- NOTE | 2023-09-16 19:02 | ED.RN ---
Called name for ED room, pt not in triage area anymore.
== END 2023-09-16 19:01 | disposition left against medical advice (07) ==
LOC: ED 19:40
PROVIDERS: PCP Family Medicine
DX: Z53.21 Procedure and treatment not carried out due to patient leaving prior to being seen by health care provider (principal)

== ENCOUNTER 2023-11-20 15:55 | Emergency (ER) | payer MEDICAID, SELFPAY ==
[2023-11-20 15:57] VITALS: BP 137/90; PULSE 101; RESP 16; TEMP 35.8; O2SAT 97
--- NOTE | 2023-11-20 16:12 | EDS_ITS ---
HPI HPI - GI History of Present Illness Chief Complaint: Nausea/Vomiting Informant: patient Abdominal Pain/Flank Pain Onset: Today Context: Sudden Onset Timing: Continuous Quality: Sharp Location: RUQ and RLQ Worsened by: Movement and - (Ambulation) Relieved by: Nothing Nausea/Vomiting/Emesis GI Symptom: Positive for Nausea and Vomiting Onset: Weeks (2) Quality: Positive for Nonbilious; Negative for Blood streaks, Coffee ground or Hematemesis Diarrhea/Melena/Hematochezia GI Symptom: Negative for Diarrhea, Melena or Hematochezia Associated Symptoms Associated Symptoms: Negative for Dysuria, Frequency or Hematuria LMP: Unknown Narrative Narrative: Patient presents with abdominal pain that began today. Patient states she woke up from her nap today and had pain in the right side of her abdomen. Patient states it began rather suddenly. Patient describes her pain as sharp. Patient states it is worse with movement and with walking. Patient states she has had some nausea and vomiting over the past 2 weeks. Patient denies any hematemesis or coffee-ground emesis. Patient denies any diarrhea, melena, or hematochezia. Patient denies any dysuria, hematuria, or frequency. Patient is unsure of her last menstrual period. Patient states that her menstrual periods are irregular. [facility] Medical History Proteinuria due to type 2 diabetes mellitus Obesity Hypertriglyceridemia Diabetes Anxiety disorder, unspecified ADHD Bipolar 1 disorder Herniated disc Cancer Depression History of steroid therapy Walker as ambulation aid Arthritis Kidney stones Anemia Injury of back Injury of head and neck Dietary restriction Gastric reflux Non-smoker History of pain when walking History of echocardiogram Cardiology follow-up encounter History of irregular heartbeat Abner's disease Cancer Diabetes Obesity GERD (gastroesophageal reflux disease) Ovarian cyst Asthma PCOS (polycystic ovarian syndrome) Home Medications ?Medication ?Instructions ?Recorded ?Last Taken ?Type ferrous sulfate 325 mg (65 mg 1 tab PO DAILY 05/16/19 01/24/21 08:00 History iron) tablet cholecalciferol (vitamin D3) 125 125 mcg PO DAILY supplement 05/17/19 01/24/21 08:00 History mcg (5,000 unit) capsule epinephrine 0.3 mg/0.3 mL 0.3 mg (0.3 mL) IM X1 PRN 05/14/20 01/30/21 08:00 Rx injection, auto-injector Anaphylaxis ##1 Fenofibrate 48 mg PO DAILY 07/23/20 01/30/21 08:00 History albuterol sulfate 2.5 mg/3 mL 2.5 mg inhalation PRN PRN ASTHMA 01/25/21 01/30/21 08:00 History (0.083 %) solution for nebulization lisinopril 5 mg tablet 5 mg PO DAILY 01/25/21 01/30/21 08:00 History aripiprazole 10 mg tablet 30 mg PO DAILY 07/16/21 Unknown History promethazine 25 mg tablet 25 mg PO Q6H PRN PRN Nausea 07/16/21 Unknown History pantoprazole 40 mg tablet,delayed 40 mg PO BID 07/31/21 Unknown History release glimepiride 2 mg tablet 4 mg PO DAILY 01/07/22 Unknown History atorvastatin 10 mg tablet 10 mg PO QHS 08/07/22 Unknown History lithium carbonate 150 mg capsule 150 mg PO BREAKFAST 08/07/22 Unknown History semaglutide 1 mg/dose (4 mg/3 mL) 1 mg subcut QWEEK 08/07/22 Unknown History subcutaneous pen injector (Ozempic) hydroxyzine HCl 50 mg tablet 50 mg PO BID PRN PRN Anxiety 08/20/22 Unknown History hydroxyzine HCl 50 mg tablet 100 mg PO QHS 08/20/22 Unknown History lithium carbonate 150 mg capsule 150 mg PO QHS 08/20/22 Unknown History metoprolol tartrate 75 mg tablet 75 mg PO DAILY 08/20/22 Unknown History albuterol sulfate 90 mcg/actuation 2 puff inhalation PRN PRN ASTHMA 10/22/22 Unknown Rx aerosol inhaler #6.7 grams hydrocodone-acetaminophen 5-325mg 1 tab PO Q6H PRN PRN Pain 3 days 02/07/23 Unknown Rx 5mg-325mg #10 TABLETS albuterol sulfate 2.5 mg/3 mL 2.5 mg (3 mL) inhalation Q6H PRN 03/26/23 Unknown Rx (0.083 %) solution for nebulization shortness of breath or wheezing #75 mL ondansetron 4 mg disintegrating 4 mg PO Q8H PRN PRN Nausea #12 tabs 03/26/23 Unknown Rx tablet prednisone 50 mg tablet 50 mg PO DAILY #5 tabs 03/26/23 Unknown Rx nirmatrelvir 300 mg (150 mg See Rx Instructions PO .COMPLEX 03/28/23 Unknown Rx x2)-ritonavir 100 mg tablet,dose #30 tabs pack (Paxlovid) ondansetron 4 mg disintegrating 4 mg PO Q6H PRN PRN Nausea #15 tabs 08/31/23 Unknown Rx tablet naproxen 500 mg tablet 500 mg PO BID PRN #20 tabs 11/20/23 Unknown Rx Allergy/AdvReac Type Severity Reaction Status Date / Time nitrofurantoin (From Allergy Intermediate rash Verified 11/20/23 15:56 Macrobid) penicillin V potassium (From Allergy Mild Rash Verified 11/20/23 15:56 Pen-Vee K) adhesive tape (plastic tape) Allergy Rash Verified 11/20/23 15:56 brompheniramine maleate Allergy Shortness Verified 11/20/23 15:56 (From Dimetapp of breath (brompheniramine-PPA)) celery Allergy Swelling Verified 11/20/23 15:56 phenylpropanolamine HCl Allergy Shortness Verified 11/20/23 15:56 (From Dimetapp of breath (brompheniramine-PPA)) amoxicillin trihydrate (From AdvReac Intermediate Diarrhea Verified 11/20/23 15:56 Augmentin) potassium clavulanate (From AdvReac Intermediate Diarrhea Verified 11/20/23 15:56 Augmentin) dicyclomine HCl (From Bentyl) AdvReac Nausea/Vom/ Verified 11/20/23 15:56 Diarrhea fructose AdvReac Nausea/Vom/ Verified 11/20/23 15:56 Diarrhea sertraline (From Zoloft) AdvReac Other Verified 11/20/23 15:56 Family History Father Diabetes Mother Hypertension Grandmother Breast cancer 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 H/O partial adrenalectomy History of back surgery History of adrenal surgery H/O oophorectomy H/O endoscopy History of tonsillectomy and adenoidectomy H/O wisdom tooth extraction H/O ovarian cystectomy Hx of cholecystectomy Social History household members: family Smoking Status: Never smoker alcohol intake: current alcohol intake frequency: a few times a month substance use type: does not use seatbelt use: always do you feel safe at home: Yes ROS ROS ED Constitutional Constitutional ED: Denies chills or fever(s) Eyes Eyes: Denies blurry vision or change in vision ENT ENT ED: Denies rhinorrhea or sore throat Cardiovascular Cardiovascular: Denies chest pain or palpitations Respiratory/Chest Respiratory/Chest: Denies cough or dyspnea Gastrointestinal Gastrointestinal: Reports abdominal pain, nausea and vomiting; Denies diarrhea or melena Genitourinary Genitourinary ED: Denies dysuria or hematuria Musculoskeletal Musculoskeletal: Denies back pain or neck pain Integumentary Denies abscess or rash Neurologic Neurologic: Denies headache(s) or weakness Allergic/Immunologic Allergic/Immunologic ED: Denies mouth swelling or urticaria EXAM Physical Exam Const Vital Signs: 11/20/23 15:57 Temperature 96.4 F L Temperature Source Temporal Pulse Rate 101 H Respiratory Rate 16 Blood Pressure 137/90 H Blood Pressure Mean 105 Pulse Ox 97 Oxygen Delivery Method Room Air Positive well nourished, well developed and obese General Appearance ED: well developed and NAD Nutritional Appearance: obese HEENT Reports moist mucous membranes Neck supple and no JVD Resp normal respiratory effort and clear to auscultation bilaterally Cardio regular rate and regular rhythm GI non-distended Palpation: soft and tender RLQ; Negative for guarding or rebound tenderness present Neuro CN's II-XII intact bilaterally, moves all extremities and no sensory deficits noted Sensorium / Orientation: alert Motor Exam: strength 5/5 throughout Psych mental status grossly normal MDM MDM MDM Narrative Medical decision making narrative: Differential diagnosis includes appendicitis, ovarian cyst, ovarian torsion, ectopic , urinary tract infection, ureteral calculus, pyelonephritis, gastroenteritis, bowel obstruction, and perforation. CBC will be obtained to assess for leukocytosis and anemia. Comprehensive metabolic profile will be obtained to assess for hepatic function, renal function, and electrolyte abnormality. Lipase will be obtained to assess for pancreatitis. Urinalysis will be obtained to assess for urinary tract infection or hematuria. Serum hCG will be obtained to assess for . CT scan of the abdomen pelvis will be obtained to assess for bowel obstruction, perforation, appendicitis, and ureteral calculus. Lab Data Attestation: I reviewed the patient's lab results. Lab results narrative: CBC was reviewed. There is a mild leukocytosis of 14.2. The remainder is within normal limits. Comprehensive metabolic profile was reviewed and is essentially within normal limits. Serum hCG was reviewed and was negative. Urinalysis was reviewed. There is no evidence of urinary tract infection or hematuria. Labs: Laboratory Results - last 24 hr 11/20/23 11/20/23 16:34 17:09 WBC 14.2 H RBC 4.82 Hgb 12.2 Hct 40.0 MCV 83.0 MCH 25.3 L MCHC 30.5 L RDW Std Deviation 44.9 H RDW Coeff of Silvia 14.9 H Plt Count 369 MPV 10.2 Immature Gran % (Auto) 0.400 Neut % (Auto) 65.3 Lymph % (Auto) 25.9 [place] % (Auto) 5.8 Eos % (Auto) 2.2 Baso % (Auto) 0.4 Absolute Neuts (auto) 9.3 H Absolute Lymphs (auto) 3.68 Nucleated RBC % 0 Sodium 137 Potassium 4.8 Chloride 106 Carbon Dioxide 22.0 Anion Gap 9 BUN 10 Creatinine 0.63 Estim Creat Clear Calc 256.05 Est GFR (MDRD) Af Amer 146 Est GFR (MDRD) Non-Af 121 BUN/Creatinine Ratio 15.8 Glucose 203 H Calcium 9.2 Total Bilirubin 0.20 AST 43 H ALT 29 Alkaline Phosphatase 49 Total Protein 7.5 Albumin 2.9 L Globulin 4.6 H Albumin/Globulin Ratio 0.6 L Serum , Qual NEGATIVE Urine Color Yellow Urine Clarity Sl. Cloudy Urine pH 7.0 Ur Specific Julian 1.010 Urine Protein Negative Urine Glucose (UA) 250 H Urine Ketones Negative Urine Occult Blood Negative Urine Nitrite Negative Urine Bilirubin Negative Urine Urobilinogen Normal Ur Leukocyte Esterase 100 H Urine RBC 0 SEEN Urine WBC 0-5 SEEN Ur Squamous Epith Cells 0-5 SEEN Amorphous Sediment 2+ Urine Bacteria 1+ Urine Mucus 0 SEEN Urine Yeast RARE Radiography Diagnostic Testing: Clinical Impression(s) from Imaging Studies Abdomen/Pelvis CT 11/20/23 16:17 IMPRESSION: Hepatosplenomegaly. Right ovarian 2.5 cm cyst without surrounding inflammation or free fluid, similar in appearance to January 16, 2023. This can represent recurrent dominant follicle or persistent cystic lesion. Ultrasound follow-up is recommended in 6 or 10 weeks to ensure resolution. Nonobstructive bilateral nephrolithiasis. Electronically Signed: Ashwin Cerda MD at 17:47 EDT , CT scan of the abdomen and pelvis was obtained. There is a 2.5 cm right ovarian cyst without surrounding inflammation or free fluid. This is similar to previous CT scan from 01/16/2023. There are nonobstructive renal stones. There is no ureteral calculus noted. The appendix was visualized and was normal. This was interpreted by the radiologist and was also independently reviewed by myself. Treatment and Re-Evaluation :: Patient was given IV fluids, morphine, and Zofran. Patient was advised of her findings. 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 Patient was given a prescription for Naprosyn. Patient was instructed to return if worse in any way. Patient understood and was agreeable with the plan. All questions were answered. Discharge Plan Triage Chief Complaint: Nausea/Vomiting ED Provider: Gio Ceron Dx/Rx/DC Orders Clinical Impression: Cyst of right ovary, Abdominal pain, right lower quadrant Instructions: ED Ovarian Cyst Prescriptions: New naproxen 500 mg tablet 500 mg PO BID PRN Qty: 20 0RF No Action glimepiride 2 mg tablet 4 mg PO DAILY Patient Comments: TAKE 1 TABLET BY MOUTH ONCE DAILY WITH BREAKFAST ferrous sulfate 325 MG tablet 1 tab PO DAILY Patient Comments: TAKE 1 TABLET BY MOUTH ONCE DAILY WITH BREAKFAST cholecalciferol (vitamin D3) 125 MCG capsule 125 mcg PO DAILY epinephrine 0.3 MG syringe 0.3 mg IM X1 PRN (Reason: Anaphylaxis) Qty: 1 0RF Fenofibrate 48 mg PO DAILY albuterol sulfate 2.5 mg /3 mL (0.083 %) solution for nebulization 2.5 mg inhalation PRN PRN (Reason: ASTHMA) Patient Comments: INHALE 1 VIAL VIA NEBULIZER EVERY 6 HOURS NEEDED FOR SHORTNESS OF BREATH AND WHEEZING lisinopril 5 mg tablet 5 mg PO DAILY Patient Comments: TAKE 1 TABLET BY MOUTH ONCE DAILY promethazine 25 mg tablet 25 mg PO Q6H PRN PRN (Reason: Nausea) Patient Comments: TAKE (1) TABLET BY MOUTH EVERY 6 HOURS NEEDED FOR NAUSEA/VOMITING aripiprazole 10 mg tablet 30 mg PO DAILY Patient Comments: TAKE 1 TABLET BY MOUTH EVERY DAY AT BEDTIME pantoprazole 40 mg Tablet,Delayed Release (Dr/Ec) 40 mg PO BID atorvastatin 10 mg tablet 10 mg PO QHS Patient Comments: TAKE 1 TABLET BY MOUTH ONCE DAILY AT BEDTIME FOR CHOLESTEROL lithium carbonate 150 mg capsule 150 mg PO BREAKFAST Ozempic 1 mg/dose (4 mg/3 mL) pen injector 1 mg SUBCUT QWEEK lithium carbonate 150 mg Capsule 150 mg PO QHS Patient Comments: stop lithium in 7 days hydroxyzine HCl 50 mg Tablet 100 mg PO QHS hydroxyzine HCl 50 mg Tablet 50 mg PO BID PRN PRN (Reason: Anxiety) metoprolol tartrate 75 mg Tablet 75 mg PO DAILY albuterol sulfate 90 mcg/actuation HFA aerosol inhaler 2 puff INHALATION PRN PRN (Reason: ASTHMA) Qty: 6.7 0RF prednisone 50 mg tablet 50 mg PO DAILY Qty: 5 0RF ondansetron 4 mg tablet,disintegrating 4 mg PO Q8H PRN PRN (Reason: Nausea) Qty: 12 0RF albuterol sulfate 2.5 mg /3 mL (0.083 %) solution for nebulization 2.5 mg inhalation Q6H PRN (Reason: shortness of breath or wheezing) Qty: 75 0RF Paxlovid 300 mg (150 mg x 2)-100 mg tablets,dose pack See Rx Instructions .ROUTE .COMPLEX Qty: 30 0RF Rx Instructions: take TWO 150 mg tablets of nirmatrelvir with ONE 100 mg tablet of ritonavir twice daily for 5 days hydrocodone-acetaminophen [hydrocodone-acetaminophen] 5-325 mg tablet 1 tab PO Q6H PRN PRN (Reason: Pain) 3 Days Qty: 10 0RF Rx Instructions: Emergency Rx ondansetron [ondansetron] 4 mg tablet,disintegrating 4 mg PO Q6H PRN PRN (Reason: Nausea) Qty: 15 0RF Primary Care Provider: Miguelito Unger Referrals: Miguelito Unger MD [Primary Care Provider] - 5-7 Days Print Language: [place] Disposition Disposition: Home, Self Care
--- NOTE | 2023-11-20 16:17 | CT_ITS ---
INDICATION: Pain EXAMINATION: CT ABDOMEN AND PELVIS WITHOUT CONTRAST - CT Abdomen And Pelvis W/O Contrast Injection TECHNIQUE: Helically acquired images were obtained of the abdomen and pelvis without oral or IV contrast. A radiation dose optimization technique was used for this scan. IV Contrast dosage and agent: None. Oral contrast: None. COMPARISON: January 16, 2023. FINDINGS: LOWER CHEST: Lung bases are clear. No cardiomegaly or pericardial effusion. LIVER: Homogeneous parenchyma with hepatomegaly. No noncontrast evidence of focal mass. GALLBLADDER AND BILIARY TREE: Cholecystectomy. No intra- or extrahepatic biliary ductal dilation. PANCREAS: No focal cystic or solid mass. SPLEEN: Homogeneous splenomegaly. ADRENAL GLANDS: Unremarkable right adrenal. Absent left adrenal.. KIDNEYS AND URETERS: Multiple small bilateral renal stones up to 4 mm right renal lower pole. Homogeneous hyperdense left renal exophytic 8mm lesion, likely hyperdense cyst. Normal renal size and position. No hydronephrosis. No perinephric inflammation. PERITONEUM: No ascites or free air. No other fluid collection. BOWEL: No acute gastric finding. No small bowel distention or focal wall thickening. Normal appendix. No acute colonic finding. . LYMPH NODES: No enlarged mesenteric or retroperitoneal lymph nodes. VESSELS: Aorta is non-dilated. URINARY BLADDER: Unremarkable. REPRODUCTIVE ORGANS: Anteverted uterus. Left ovary is surgically absent. Right ovarian 2.5 cm cyst.. ABDOMINAL WALL: Fat-containing umbilical hernia without inflammation. No discrete abdominal or pelvic wall hernia. BONES: No lytic or blastic abnormality. CT/Abdomen/Pelvis without Cont IMPRESSION: Hepatosplenomegaly. Right ovarian 2.5 cm cyst without surrounding inflammation or free fluid, similar in appearance to January 16, 2023. This can represent recurrent dominant follicle or persistent cystic lesion. Ultrasound follow-up is recommended in 6 or 10 weeks to ensure resolution. Nonobstructive bilateral nephrolithiasis. Electronically Signed: Ashwin Cerda MD at 17:47 EDT ,
[2023-11-20 16:24] VITALS: BMI 68.3
[2023-11-20 16:54] LABS: Absolute Lymphocyte Count 3.68 X10^3/uL (0.83-4.51); Absolute Neutrophil Count 9.3 X10^3/uL (2.0-7.7); Basophil# 0.06 X10^3/uL; Basophil% 0.4 % (0-1); Eosinophil# 0.31 X10^3/uL; Eosinophils% 2.2 % (0-5); Hemoglobin 12.2 g/dL (12.0-15.0); Lymphocyte # 3.68 X10^3/ul (0.83-4.51); Lymphocyte % 25.9 % (19-41); Mean Corp Hgb Conc 30.5 g/dL (32-36); Mean Corpuscular Hgb 25.3 pg (27.0-32.0); Mean Platelet Vol. 10.2 fl (6.2-12.0); Monocyte# 0.82 X10^3/uL; Monocyte% 5.8 % (0-10); NRBC Flagged by Analyzer 0 % (0-5); Neutrophil # 9.28 X10^3/uL (2.7-7.7); Neutrophil % 65.3 % (47-70); Platelet Count 369 K/mm3 (150-450); RBC Distribution Width CV 14.9 % (11.6-14.6); RBC Distribution Width SD 44.9 fl (35.1-43.9); Red Blood Count 4.82 M/mm3 (4.2-5.4); White Blood Count 14.2 K/mm3 (4.4-11.0)
[2023-11-20] MEDS: 0.9% Normal Saline (1000mL) 1,000 ML 999 ML IV (16:58)
[2023-11-20] MEDS: Ondansetron 4 MG/2 ML Vial IV (16:58)
[2023-11-20] MEDS: Morphine 4 MG/ML Syringe IV (16:58)
[2023-11-20 16:59] LABS: Internal QC Validated? YES +Cl - CLEAR BKGD; Pregnancy, Serum, hCG Quali. NEGATIVE Negative
[2023-11-20 17:08] LABS: ALB/GLOB Ratio 0.6 RATIO (0.9-2.4); AST(SGOT) 43 U/L (15-37); Alanine Aminotransfer ALT/SGPT 29 U/L (13-56); Albumin, Serum 2.9 g/dL (3.2-5.0); Alkaline Phosphatase 49 U/L (45-117); Anion Gap 9 (5-15); BUN 10 mg/dL (7-18); BUN/Creat Ratio 15.8 RATIO (10-20); Calcium,Total 9.2 mg/dL (8.5-10.1); Chloride 106 mmol/L (98-107); Creatinine, Serum 0.63 mg/dL (0.55-1.02); EST Glomerular Filtration Rate 121 mL/min (>60); Est Glom Filt Rate - Afr Amer 146 mL/min (>60); Estimated Creatinine Clearance 256.05 ml/min; Globulin 4.6 g/dL (2.2-4.2); Glucose 203 mg/dL (74-106); Potassium 4.8 mmol/L (3.5-5.1); Protein, Total 7.5 g/dL (6.4-8.2); Sodium Level 137 mmol/L (136-145)
[2023-11-20 17:22] LABS: Mucous, Urine 0 SEEN /hpf (<or=2+); Red Blood Cells-Urine 0 SEEN /hpf (0-5)
[2023-11-20 17:36] LABS: Color, Urine Yellow (Yellow); Glucose, Dipstick 250 mg/dl (Normal); Ketone-Dipstick Negative (Negative); Leukocyte Esterase-Dipstick 100 /ul (Negative); Nitrite-Dipstick Negative (Negative); Occult Blood-Urine Negative /ul (Negative); Protein-Dipstick Negative (Negative); Urine Bilirubin Dipstick Negative (Negative); Urine Clarity Sl. Cloudy (Clear); Urine Urobilinogen Normal (Normal)
[2023-11-20 17:48] LABS: Amorphous Sediment 2+; Bacteria 1+ /hpf (None Seen); Squamous Epithelial Cells - UA 0-5 SEEN /hpf (5-10); White Blood Cells 0-5 SEEN /hpf (0-5); Yeast-Urine RARE /hpf (None Seen)
[2023-11-20 17:59] VITALS: BMI 68.3
[2023-11-20 18:07] VITALS: BP 118/75; PULSE 84; RESP 14; TEMP 36.6; O2SAT 97
== END 2023-11-20 18:07 | disposition home or self-care (01) ==
PROVIDERS: Emergency Provider Emergency Medicine; PCP Family Medicine; Visit Provider Emergency Medicine
DX: N83.201 Unspecified ovarian cyst, right side (principal); R10.31 Right lower quadrant pain; J45.909 Unspecified asthma, uncomplicated; E66.9 Obesity, unspecified
CPT/HCPCS: 74176; 80053; 81001; 84703; 85025; 96361; 96374; 96375; 96376; 99283; J7030; A4216; J2405

== ENCOUNTER → 2023-11-25 | Outpatient (CLI) | payer MEDICAID, SELFPAY ==
--- NOTE | 2023-11-25 09:05 | NEURO ---
NCS and/or EMG Patient Report Ordering Doctor: Miguelito Unger DATE OF SERVICE: 11/25/23 Georgiana complains of hypersensitivity in her legs, primarily below the knees. She has a history of lower back surgery. Electrodiagnostic findings: Right peroneal motor nerve demonstrates normal distal latency with normal amplitude and reduced conduction velocity. Left peroneal motor nerve demonstrates normal distal latency, amplitude and conduction velocity. Right tibial motor nerve demonstrates normal distal latency, amplitude and conduction velocity. Left tibial motor nerve demonstrates normal distal latency with reduced amplitude and normal conduction velocity. Prolonged right tibial F?wave. Sensory responses were not obtainable. Needle EMG testing was performed in the lower limbs. All muscles tested showed no evidence of denervation with normal motor unit action potentials. Electrodiagnostic assessment: This is an abnormal study. 1. 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 This may be secondary to diabetes. However, the study is somewhat compromised by the patient's body habitus. 2. There is no electrodiagnostic evidence for lumbosacral radiculopathy. Multi Select Codes Neurology Neurology Interp Codes: 30244-07 Musc test done w/n test comp (interp) (2) and 89026-01 Nrv cndj test 9-10 studies (interp)
== END | disposition home or self-care (01) ==
LOC: PSN 06:32
PROVIDERS: PCP Family Medicine; Referring Provider Family Medicine; Visit Provider Family Medicine
DX: G62.9 Polyneuropathy, unspecified (principal)
CPT/HCPCS: 95886; 95911

== ENCOUNTER 2024-01-05 22:35 | Emergency (ER) | payer MEDICAID, MEDICARE, SELFPAY ==
[2024-01-05 22:36] VITALS: BP 160/80; PULSE 81; RESP 20; TEMP 35.9; O2SAT 97; BMI 64.3
--- NOTE | 2024-01-05 23:15 | EDS_ITS ---
HPI History of Present Illness Chief Complaint: Abd Pain Informant: patient and parent Narrative Narrative: Patient is a 28-year-old female with remote history of ovarian cancer as well as diabetes. She was seen 1 month ago secondary to abdominal pain and found to have a right-sided ovarian cyst. Patient states that this ovarian cyst has been known and is being followed by her oncologist. Today she states that she ate [employer] breakfast this morning and then 30 minutes to 1 hour later developed generalized abdominal pain and has had 3-5 bouts of vomiting throughout the day. She states that pain and nausea has persisted and she does have concern about dehydration as well as potential infectious process based on the prolonged nature of her symptoms and therefore comes in for evaluation [facility] Medical History Osteoporosis GERD (gastroesophageal reflux disease) CPAP (continuous positive airway pressure) dependence Sleep apnea Proteinuria due to type 2 diabetes mellitus Obesity Hypertriglyceridemia Diabetes Anxiety disorder, unspecified ADHD Bipolar 1 disorder Herniated disc Cancer Depression History of steroid therapy Walker as ambulation aid Arthritis Kidney stones Anemia Injury of back Injury of head and neck Dietary restriction Gastric reflux Non-smoker History of pain when walking History of echocardiogram Cardiology follow-up encounter History of irregular heartbeat Elmira's disease Cancer Diabetes Obesity GERD (gastroesophageal reflux disease) Ovarian cyst Asthma PCOS (polycystic ovarian syndrome) Home Medications ?Medication ?Instructions ?Recorded ?Last Taken ?Type ferrous sulfate 325 mg (65 mg 1 tab PO DAILY 05/16/19 01/24/21 08:00 History iron) tablet cholecalciferol (vitamin D3) 125 125 mcg PO DAILY supplement 05/17/19 01/24/21 08:00 History mcg (5,000 unit) capsule epinephrine 0.3 mg/0.3 mL 0.3 mg (0.3 mL) IM X1 PRN 05/14/20 01/30/21 08:00 Rx injection, auto-injector Anaphylaxis ##1 Fenofibrate 48 mg PO DAILY 07/23/20 01/30/21 08:00 History albuterol sulfate 2.5 mg/3 mL 2.5 mg inhalation PRN PRN ASTHMA 01/25/21 01/30/21 08:00 History (0.083 %) solution for nebulization lisinopril 5 mg tablet 5 mg PO DAILY 01/25/21 01/30/21 08:00 History aripiprazole 10 mg tablet 30 mg PO DAILY 07/16/21 Unknown History promethazine 25 mg tablet 25 mg PO Q6H PRN PRN Nausea 07/16/21 Unknown History pantoprazole 40 mg tablet,delayed 40 mg PO BID 07/31/21 Unknown History release glimepiride 2 mg tablet 4 mg PO DAILY 01/07/22 Unknown History atorvastatin 10 mg tablet 10 mg PO QHS 08/07/22 Unknown History hydroxyzine HCl 50 mg tablet 50 mg PO BID PRN PRN Anxiety 08/20/22 Unknown History hydroxyzine HCl 50 mg tablet 100 mg PO QHS 08/20/22 Unknown History metoprolol tartrate 75 mg tablet 75 mg PO DAILY 08/20/22 Unknown History albuterol sulfate 90 mcg/actuation 2 puff inhalation PRN PRN ASTHMA 10/22/22 Unknown Rx aerosol inhaler #6.7 grams albuterol sulfate 2.5 mg/3 mL 2.5 mg (3 mL) inhalation Q6H PRN 03/26/23 Unknown Rx (0.083 %) solution for nebulization shortness of breath or wheezing #75 mL ondansetron 4 mg disintegrating 4 mg PO Q8H PRN PRN Nausea #12 tabs 03/26/23 Unknown Rx tablet ondansetron 4 mg disintegrating 4 mg PO Q6H PRN PRN Nausea #15 tabs 08/31/23 Unknown Rx tablet guanfacine 3 mg tablet,extended 3 mg PO DAILY 01/05/24 Unknown History release 24 hr (Intuniv ER) insulin glargine-yfgn 100 unit/mL 70 unit subcut QHS 01/05/24 Unknown History (3 mL) subcutaneous pen insulin lispro 100 unit/mL 4 unit subcut .with meals 01/05/24 Unknown History subcutaneous pen norethindrone acetate 1 mg-ethinyl 1 tab PO DAILY 01/05/24 Unknown History estradiol 20 mcg tablet (Microgestin) prazosin 2 mg capsule 2 mg PO QHS 01/05/24 Unknown History trazodone 100 mg tablet 200 mg PO QHS 01/05/24 Unknown History cephalexin 500 mg capsule 500 mg PO TID 7 days #21 caps 01/06/24 Unknown Rx ondansetron 4 mg disintegrating 4 mg PO TID PRN nausea and 01/06/24 Unknown Rx tablet vomiting #21 tabs Allergy/AdvReac Type Severity Reaction Status Date / Time nitrofurantoin (From Allergy Intermediate rash Verified 01/05/24 22:36 Macrobid) penicillin V potassium (From Allergy Mild Rash Verified 01/05/24 22:36 Pen-Vee K) adhesive tape (plastic tape) Allergy Rash Verified 01/05/24 22:36 brompheniramine maleate Allergy Shortness Verified 01/05/24 22:36 (From Dimetapp of breath (brompheniramine-PPA)) celery Allergy Swelling Verified 01/05/24 22:36 phenylpropanolamine HCl Allergy Shortness Verified 01/05/24 22:36 (From Dimetapp of breath (brompheniramine-PPA)) amoxicillin trihydrate (From AdvReac Intermediate Diarrhea Verified 01/05/24 22:36 Augmentin) potassium clavulanate (From AdvReac Intermediate Diarrhea Verified 01/05/24 22:36 Augmentin) dicyclomine HCl (From Bentyl) AdvReac Nausea/Vom/ Verified 01/05/24 22:36 Diarrhea fructose AdvReac Nausea/Vom/ Verified 01/05/24 22:36 Diarrhea sertraline (From Zoloft) AdvReac Other Verified 01/05/24 22:36 Family History Father Diabetes Mother Hypertension Grandmother Breast cancer 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 H/O partial adrenalectomy History of back surgery History of adrenal surgery H/O oophorectomy H/O endoscopy History of tonsillectomy and adenoidectomy H/O wisdom tooth extraction H/O ovarian cystectomy Hx of cholecystectomy Social History household members: family Smoking Status: Never smoker alcohol intake: current alcohol intake frequency: a few times a month substance use type: does not use seatbelt use: always do you feel safe at home: Yes ROS ROS ED Constitutional Constitutional ED: Denies chills or fever(s) ENT ENT ED: Denies sore throat Cardiovascular Cardiovascular: Denies chest pain Respiratory/Chest Respiratory/Chest: Denies cough or dyspnea Gastrointestinal Gastrointestinal: Reports abdominal pain, diarrhea, nausea and vomiting Genitourinary Genitourinary ED: Reports dysuria Musculoskeletal Musculoskeletal: Denies myalgias Integumentary Denies rash Neurologic Neurologic: Denies headache(s) Hematologic/Lymphatic Hematologic/Lymphatic: Denies easy bleeding or easy bruising EXAM Physical Exam Const Vital Signs: 01/05/24 22:36 01/06/24 00:35 01/06/24 01:58 Temperature 96.6 F L 98.2 F Temperature Source Temporal Oral Pulse Rate 81 82 89 Respiratory Rate 20 H 16 16 Blood Pressure 160/80 H 103/52 L 107/29 L Blood Pressure Mean 106 69 55 Pulse Ox 97 96 98 Oxygen Delivery Method Room Air Room Air 01/06/24 03:00 Temperature Temperature Source Pulse Rate 85 Respiratory Rate 16 Blood Pressure 156/58 H Blood Pressure Mean 90 Pulse Ox 97 Oxygen Delivery Method Room Air Positive well nourished, well developed and obese General Appearance ED: well developed; Negative for pallor Nutritional Appearance: obese HEENT Reports moist mucous membranes HEENT Narrative: No tongue or lip swelling no oral lesions no airway edema or compromise No secondary findings in the posterior pharynx to suggest infection Eyes PERRL and EOMs intact bilaterally General Eye ED: Negative for scleral icterus Neck supple Neck Narrative: No nuchal rigidity or meningeal signs noted Resp normal respiratory effort and clear to auscultation bilaterally Cardio regular rate and regular rhythm GI non-distended and no masses GI Narrative: Abdomen is soft and nondistended with hyperactive bowel sounds. There is mild diffuse pain with palpation but greatest in the right lower quadrant without voluntary guarding or rigidity. Negative heel strike psoas and obturator signs. No pulsatile mass or fluid wave Auscultation: normoactive bowel sounds Palpation: soft Extremity normal to inspection Neuro oriented x3, CN's II-XII intact bilaterally and no sensory deficits noted Sensorium / Orientation: alert Motor Exam: strength 5/5 throughout Psych mental status grossly normal Skin no rashes or lesions noted General Skin Exam: Negative for jaundice or pallor MDM MDM MDM Narrative Medical decision making narrative: Patient arrived to the ER with stable vitals and a soft nonsurgical abdomen. She had been seen roughly 1 month ago and had a CT scan at that time which documented an ovarian cyst but otherwise no acute abdominal pathology. Based on her stable vitals and physical exam and the fact she had a CT scan roughly 4 weeks ago I do not want to perform further imaging. However in order to check for potential urinary tract infection versus acute kidney injury versus biliary colic versus pancreatitis versus DKA versus HHS I did elect to perform basic laboratory studies. Patient's white count is elevated at 16.1 but kidney function is normal going against acute kidney injury there are no clinically significant electrolyte abnormalities her lipase is normal going against pancreatitis and her liver enzymes are normal going against biliary colic or acute cholecystitis. Her serum bicarb is normal her anion gap is normal going against DKA. Her calculated serum osmolality is 294 going against HHS. The patient reported dysuria and urine sample does show changes consistent with infection as it has positive nitrates 25-50 white blood cells +2 bacteria and no epithelial. Therefore the urine will be sent for culture and she will be sta rted on Rocephin. However at this time as vitals are stable she does not have signs of acute kidney injury or urosepsis there is no need for further workup and she is otherwise safe for discharge History & Record Review Discussion w/independent historian: Patient and Family Lab Data Attestation: I reviewed the patient's lab results. Labs: Laboratory Results - last 24 hr 01/05/24 01/06/24 23:30 03:00 WBC 16.1 H RBC 4.87 Hgb 12.4 Hct 39.4 MCV 80.9 L MCH 25.5 L MCHC 31.5 L RDW Std Deviation 41.8 RDW Coeff of Silvia 14.4 Plt Count 391 MPV 10.4 Immature Gran % (Auto) 0.600 Neut % (Auto) 62.7 Lymph % (Auto) 29.2 [place] % (Auto) 5.0 Eos % (Auto) 2.1 Baso % (Auto) 0.4 Absolute Neuts (auto) 10.1 H Absolute Lymphs (auto) 4.69 H Nucleated RBC % 0 Diff Path Review May foll Atypical Lymphocytes 2+ Sodium 139 Potassium 3.7 Chloride 104 Carbon Dioxide 27.0 Anion Gap 8 BUN 10 Creatinine 0.71 Estim Creat Clear Calc 218.33 Est GFR (MDRD) Af Amer 127 Est GFR (MDRD) Non-Af 105 BUN/Creatinine Ratio 14.1 Glucose 216 H Calcium 9.4 Total Bilirubin 0.20 Direct Bilirubin 0.12 AST 23 ALT 29 Alkaline Phosphatase 62 Total Protein 8.0 Albumin 3.1 L Globulin 4.9 H Lipase 34 Urine Color Yellow Urine Clarity Clear Urine pH 6.0 Ur Specific Gratz 1.020 Urine Protein 30 H Urine Glucose (UA) 100 H Urine Ketones 5 H Urine Occult Blood 10 H Urine Nitrite Positive H Urine Bilirubin Negative Urine Urobilinogen 1 H Ur Leukocyte Esterase 500 H Urine RBC 0 SEEN Urine WBC 25-50 SEEN Ur Squamous Epith Cells 0-5 SEEN Urine Bacteria 2+ Urine Mucus 0 SEEN Urine Test Negative Discharge Plan Triage Chief Complaint: Abd Pain ED Provider: Sudarshan Angelo Dx/Rx/DC Orders Clinical Impression: Urinary tract infection, Abdominal pain, Nausea vomiting and diarrhea, Insulin dependent diabetes mellitus, Morbid obesity Instructions: Abdominal Pain, Urinary Tract Infections in Women, ED Gastroenteritis, Viral (Adult) Prescriptions: New ondansetron 4 mg tablet,disintegrating 4 mg PO TID PRN (Reason: nausea and vomiting) Qty: 21 0RF cephalexin 500 mg capsule 500 mg PO TID 7 Days Qty: 21 0RF No Action glimepiride 2 mg tablet 4 mg PO DAILY Patient Comments: TAKE 1 TABLET BY MOUTH ONCE DAILY WITH BREAKFAST ferrous sulfate 325 MG tablet 1 tab PO DAILY Patient Comments: TAKE 1 TABLET BY MOUTH ONCE DAILY WITH BREAKFAST cholecalciferol (vitamin D3) 125 MCG capsule 125 mcg PO DAILY epinephrine 0.3 MG syringe 0.3 mg IM X1 PRN (Reason: Anaphylaxis) Qty: 1 0RF Fenofibrate 48 mg PO DAILY albuterol sulfate 2.5 mg /3 mL (0.083 %) solution for nebulization 2.5 mg inhalation PRN PRN (Reason: ASTHMA) Patient Comments: INHALE 1 VIAL VIA NEBULIZER EVERY 6 HOURS NEEDED FOR SHORTNESS OF BREATH AND WHEEZING lisinopril 5 mg tablet 5 mg PO DAILY Patient Comments: TAKE 1 TABLET BY MOUTH ONCE DAILY promethazine 25 mg tablet 25 mg PO Q6H PRN PRN (Reason: Nausea) Patient Comments: TAKE (1) TABLET BY MOUTH EVERY 6 HOURS NEEDED FOR NAUSEA/VOMITING aripiprazole 10 mg tablet 30 mg PO DAILY Patient Comments: TAKE 1 TABLET BY MOUTH EVERY DAY AT BEDTIME pantoprazole 40 mg Tablet,Delayed Release (Dr/Ec) 40 mg PO BID atorvastatin 10 mg tablet 10 mg PO QHS Patient Comments: TAKE 1 TABLET BY MOUTH ONCE DAILY AT BEDTIME FOR CHOLESTEROL hydroxyzine HCl 50 mg Tablet 100 mg PO QHS hydroxyzine HCl 50 mg Tablet 50 mg PO BID PRN PRN (Reason: Anxiety) metoprolol tartrate 75 mg Tablet 75 mg PO DAILY albuterol sulfate 90 mcg/actuation HFA aerosol inhaler 2 puff INHALATION PRN PRN (Reason: ASTHMA) Qty: 6.7 0RF ondansetron 4 mg tablet,disintegrating 4 mg PO Q8H PRN PRN (Reason: Nausea) Qty: 12 0RF albuterol sulfate 2.5 mg /3 mL (0.083 %) solution for nebulization 2.5 mg inhalation Q6H PRN (Reason: shortness of breath or wheezing) Qty: 75 0RF ondansetron [ondansetron] 4 mg tablet,disintegrating 4 mg PO Q6H PRN PRN (Reason: Nausea) Qty: 15 0RF insulin glargine-yfgn 100 unit/mL (3 mL) insulin pen 70 unit subcut QHS insulin lispro 100 unit/mL insulin pen 4 unit subcut .with meals trazodone 100 mg tablet 200 mg PO QHS norethindrone ac-eth estradiol [Microgestin 06/27 ()] 1-20 mg-mcg tablet 1 tab PO DAILY prazosin 2 mg capsule 2 mg PO QHS guanfacine [Intuniv ER] 3 mg tablet extended release 24 hr 3 mg PO DAILY Primary Care Provider: Miguelito Unger Referrals: Miguelito Unger MD [Primary Care Provider] - Activity Restrictions/Additional Instructions: Please take your antibiotic as directed to resolve your urinary tract infection. Keep yourself well-hydrated and return to the ER should you have any further co ncerns or worsening of symptoms. Print Language: Bolivian Disposition Disposition: Home, Self Care
[2024-01-05 23:39] LABS: Absolute Lymphocyte Count 4.69 X10^3/uL (0.83-4.51); Absolute Neutrophil Count 10.1 X10^3/uL (2.0-7.7); Basophil# 0.06 X10^3/uL; Basophil% 0.4 % (0-1); Eosinophil# 0.33 X10^3/uL; Eosinophils% 2.1 % (0-5); Hematocrit 39.4 % (37-47); Hemoglobin 12.4 g/dL (12.0-15.0); Lymphocyte # 4.69 X10^3/ul (0.83-4.51); Lymphocyte % 29.2 % (19-41); Mean Corp Hgb Conc 31.5 g/dL (32-36); Mean Corpuscular Hgb 25.5 pg (27.0-32.0); Mean Corpuscular Volume 80.9 fL (81-99); Mean Platelet Vol. 10.4 fl (6.2-12.0); Monocyte# 0.81 X10^3/uL; NRBC Flagged by Analyzer 0 % (0-5); Neutrophil % 62.7 % (47-70); POSITIVE MORPHOLOGY YES; Platelet Count 391 K/mm3 (150-450); RBC Distribution Width CV 14.4 % (11.6-14.6); RBC Distribution Width SD 41.8 fl (35.1-43.9); Red Blood Count 4.87 M/mm3 (4.2-5.4); White Blood Count 16.1 K/mm3 (4.4-11.0)
[2024-01-05 23:58] LABS: Differential Indicated SCAN CRITERIA MET
[2024-01-06 00:08] LABS: Atypical Lymphocyte 2+ %
[2024-01-06 00:15] LABS: AST(SGOT) 23 U/L (15-37); Alanine Aminotransfer ALT/SGPT 29 U/L (13-56); Albumin, Serum 3.1 g/dL (3.2-5.0); Alkaline Phosphatase 62 U/L (45-117); Anion Gap 8 (5-15); BUN 10 mg/dL (7-18); BUN/Creat Ratio 14.1 RATIO (10-20); Bilirubin, Direct 0.12 mg/dL (0.00-0.30); Calcium,Total 9.4 mg/dL (8.5-10.1); Chloride 104 mmol/L (98-107); Creatinine, Serum 0.71 mg/dL (0.55-1.02); EST Glomerular Filtration Rate 105 mL/min (>60); Est Glom Filt Rate - Afr Amer 127 mL/min (>60); Estimated Creatinine Clearance 218.33 ml/min; Globulin 4.9 g/dL (2.2-4.2); Glucose 216 mg/dL (74-106); Lipase 34 U/L (13-75); Potassium 3.7 mmol/L (3.5-5.1); Sodium Level 139 mmol/L (136-145)
[2024-01-06] MEDS: Morphine 4 MG/ML Syringe IV (00:32)
[2024-01-06] MEDS: 0.9% Normal Saline (1000mL) 1,000 ML 999 ML IV ×2 (00:32→01:59)
[2024-01-06] MEDS: Ondansetron 4 MG/2 ML Vial IV (00:32)
[2024-01-06 00:35] VITALS: BP 103/52; PULSE 82; RESP 16; TEMP 36.8; O2SAT 96
[2024-01-06 01:58] VITALS: BP 107/29; PULSE 89; RESP 16; O2SAT 98
[2024-01-06 03:00] VITALS: BP 156/58; PULSE 85; RESP 16; O2SAT 97
[2024-01-06 03:08] LABS: Mucous, Urine 0 SEEN /hpf (<or=2+); Red Blood Cells-Urine 0 SEEN /hpf (0-5)
[2024-01-06 03:09] LABS: Color, Urine Yellow (Yellow); Glucose, Dipstick 100 mg/dl (Normal); Ketone-Dipstick 5 mg/dl (Negative); Leukocyte Esterase-Dipstick 500 /ul (Negative); Nitrite-Dipstick Positive (Negative); Occult Blood-Urine 10 /ul (Negative); Protein-Dipstick 30 mg/dl (Negative); Urine Bilirubin Dipstick Negative (Negative); Urine Clarity Clear (Clear); Urine Urobilinogen 1 mg/dl (Normal)
[2024-01-06 03:20] LABS: Bacteria 2+ /hpf (None Seen); Internal QC Validated? YES +Cl - CLEAR BKGD; Pregnancy, Urine Negative Negative; Squamous Epithelial Cells - UA 0-5 SEEN /hpf (5-10); White Blood Cells 25-50 SEEN /hpf (0-5)
[2024-01-06 03:44] VITALS: BP 128/57; PULSE 75; RESP 18; TEMP 36.9; O2SAT 97
[2024-01-06] MEDS: Ceftriaxone 1 GM/50 ML BAG IV (03:44)
[2024-01-06 13:44] LABS: Pathologist Review Reviewed
== END 2024-01-06 04:12 | disposition home or self-care (01) ==
PROVIDERS: Emergency Provider Emergency Medicine; PCP Family Medicine; Visit Provider Emergency Medicine
DX: N39.0 Urinary tract infection, site not specified (principal); E66.01 Morbid (severe) obesity due to excess calories; E11.9 Type 2 diabetes mellitus without complications; Z79.4 Long term (current) use of insulin; R11.2 Nausea with vomiting, unspecified; R19.7 Diarrhea, unspecified; Z79.51 Long term (current) use of inhaled steroids; Z79.899 Other long term (current) drug therapy; Z79.84 Long term (current) use of oral hypoglycemic drugs
CPT/HCPCS: 80048; 80076; 81001; 81025; 83690; 85025; 87077; 87086; 87088; 87186; 96361; 96365; 96375; 96376; 99282; J7030; J7050; A4216; J2405

== ENCOUNTER 2024-03-13 07:51 | Emergency (ER) | payer MEDICARE, MEDICAID, SELFPAY ==
[2024-03-13 07:52] VITALS: BP 149/90; PULSE 76; RESP 18; TEMP 36.6; O2SAT 98
[2024-03-13 08:06] VITALS: BMI 52.0
--- NOTE | 2024-03-13 08:06 | EX.ED.DYSGE1 ---
HPI History of Present Illness Chief Complaint: Edema Informant: patient Narrative Narrative: 28-year-old female presenting to the emergency room with bilateral lower feet swelling and pain. Patient states that she recently traveled to [place] by car. It took her 3 days to get there 3 days to get home. She states the trip was 33 hours from [place] to [place]. She states she has not even gone home and was dropped off here at the emergency department. She states that on the trip she developed swelling in the bilateral feet. She notes pain on the bottom of her feet. She notes a history of diabetes. She denies history of hypertension. No known renal disease. Patient has had normal creatinines this year. She denies pain in the calf no chest pain shortness of breath. No fevers. [facility] Medical History Osteoporosis GERD (gastroesophageal reflux disease) CPAP (continuous positive airway pressure) dependence Sleep apnea Proteinuria due to type 2 diabetes mellitus Obesity Hypertriglyceridemia Diabetes Anxiety disorder, unspecified ADHD Bipolar 1 disorder Herniated disc Cancer Depression History of steroid therapy Walker as ambulation aid Arthritis Kidney stones Anemia Injury of back Injury of head and neck Dietary restriction Gastric reflux Non-smoker History of pain when walking History of echocardiogram Cardiology follow-up encounter History of irregular heartbeat 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 Cancer Diabetes Obesity GERD (gastroesophageal reflux disease) Ovarian cyst Asthma PCOS (polycystic ovarian syndrome) Home Medications ?Medication ?Instructions ?Recorded ?Last Taken ?Type ferrous sulfate 325 mg (65 mg 1 tab PO DAILY 05/16/19 01/24/21 08:00 History iron) tablet cholecalciferol (vitamin D3) 125 125 mcg PO DAILY supplement 05/17/19 01/24/21 08:00 History mcg (5,000 unit) capsule epinephrine 0.3 mg/0.3 mL 0.3 mg (0.3 mL) IM X1 PRN 05/14/20 01/30/21 08:00 Rx injection, auto-injector Anaphylaxis ##1 Fenofibrate 48 mg PO DAILY 07/23/20 01/30/21 08:00 History albuterol sulfate 2.5 mg/3 mL 2.5 mg inhalation PRN PRN ASTHMA 01/25/21 01/30/21 08:00 History (0.083 %) solution for nebulization lisinopril 5 mg tablet 5 mg PO DAILY 01/25/21 01/30/21 08:00 History aripiprazole 10 mg tablet 30 mg PO DAILY 07/16/21 Unknown History promethazine 25 mg tablet 25 mg PO Q6H PRN PRN Nausea 07/16/21 Unknown History pantoprazole 40 mg tablet,delayed 40 mg PO BID 07/31/21 Unknown History release glimepiride 2 mg tablet 4 mg PO DAILY 01/07/22 Unknown History atorvastatin 10 mg tablet 10 mg PO QHS 08/07/22 Unknown History hydroxyzine HCl 50 mg tablet 50 mg PO BID PRN PRN Anxiety 08/20/22 Unknown History hydroxyzine HCl 50 mg tablet 100 mg PO QHS 08/20/22 Unknown History metoprolol tartrate 75 mg tablet 75 mg PO DAILY 08/20/22 Unknown History albuterol sulfate 90 mcg/actuation 2 puff inhalation PRN PRN ASTHMA 10/22/22 Unknown Rx aerosol inhaler #6.7 grams albuterol sulfate 2.5 mg/3 mL 2.5 mg (3 mL) inhalation Q6H PRN 03/26/23 Unknown Rx (0.083 %) solution for nebulization shortness of breath or wheezing #75 mL ondansetron 4 mg disintegrating 4 mg PO Q8H PRN PRN Nausea #12 tabs 03/26/23 Unknown Rx tablet ondansetron 4 mg disintegrating 4 mg PO Q6H PRN PRN Nausea #15 tabs 08/31/23 Unknown Rx tablet guanfacine 3 mg tablet,extended 3 mg PO DAILY 01/05/24 Unknown History release 24 hr (Intuniv ER) insulin glargine-yfgn 100 unit/mL 70 unit subcut QHS 01/05/24 Unknown History (3 mL) subcutaneous pen insulin lispro 100 unit/mL 4 unit subcut .with meals 01/05/24 Unknown History subcutaneous pen norethindrone acetate 1 mg-ethinyl 1 tab PO DAILY 01/05/24 Unknown History estradiol 20 mcg tablet (Microgestin) prazosin 2 mg capsule 2 mg PO QHS 01/05/24 Unknown History trazodone 100 mg tablet 200 mg PO QHS 01/05/24 Unknown History cephalexin 500 mg capsule 500 mg PO TID 7 days #21 caps 01/06/24 Unknown Rx ondansetron 4 mg disintegrating 4 mg PO TID PRN nausea and 01/06/24 Unknown Rx tablet vomiting #21 tabs furosemide 40 mg tablet (Lasix) 40 mg PO BID 5 days #10 tabs 03/13/24 Unknown Rx Allergy/AdvReac Type Severity Reaction Status Date / Time nitrofurantoin (From Allergy Intermediate rash Verified 03/13/24 07:52 Macrobid) penicillin V potassium (From Allergy Mild Rash Verified 03/13/24 07:52 Pen-Vee K) adhesive tape (plastic tape) Allergy Rash Verified 03/13/24 07:52 brompheniramine maleate Allergy Shortness Verified 03/13/24 07:52 (From Dimetapp of breath (brompheniramine-PPA)) celery Allergy Swelling Verified 03/13/24 07:52 phenylpropanolamine HCl Allergy Shortness Verified 03/13/24 07:52 (From Dimetapp of breath (brompheniramine-PPA)) amoxicillin trihydrate (From AdvReac Intermediate Diarrhea Verified 03/13/24 07:52 Augmentin) potassium clavulanate (From AdvReac Intermediate Diarrhea Verified 03/13/24 07:52 Augmentin) dicyclomine HCl (From Bentyl) AdvReac Nausea/Vom/ Verified 03/13/24 07:52 Diarrhea fructose AdvReac Nausea/Vom/ Verified 03/13/24 07:52 Diarrhea sertraline (From Zoloft) AdvReac Other Verified 03/13/24 07:52 Family History Father Diabetes Mother Hypertension Grandmother Breast cancer 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 H/O partial adrenalectomy History of back surgery History of adrenal surgery H/O oophorectomy H/O endoscopy History of tonsillectomy and adenoidectomy H/O wisdom tooth extraction H/O ovarian cystectomy Hx of cholecystectomy Social History household members: family Smoking Status: Never smoker alcohol intake: current alcohol intake frequency: a few times a month substance use type: does not use seatbelt use: always do you feel safe at home: Yes ROS ROS ED Constitutional Constitutional ED: Denies chills or weight loss Eyes Eyes: Denies change in vision or diplopia ENT ENT ED: Denies ear pain, rhinorrhea or sore throat Cardiovascular Cardiovascular: Denies chest pain, orthopnea, palpitations or racing heartbeat Respiratory/Chest Respiratory/Chest: Denies cough, dyspnea, dyspnea on exertion or orthopnea Gastrointestinal Gastrointestinal: Denies abdominal pain, diarrhea, nausea or vomiting Genitourinary Genitourinary ED: Denies dysuria, hematuria or urinary frequency Musculoskeletal Musculoskeletal: Reports other Details: See history of present illness ; Denies arthralgias or myalgias Integumentary Denies abscess or rash Neurologic Neurologic: Denies headache(s) or weakness Psychiatric Psychiatric: Denies anxiety, depression, suicidal ideation or suicidal thoughts Endocrine Endocrinology: Denies polydipsia, polyphagia or polyuria Allergic/Immunologic Allergic/Immunologic ED: Denies mouth swelling, tongue swelling or urticaria EXAM Physical Exam Const Vital Signs: 03/13/24 07:52 Temperature 98 F Temperature Source Temporal Pulse Rate 76 Respiratory Rate 18 Blood Pressure 149/90 H Blood Pressure Mean 109 Pulse Ox 98 Oxygen Delivery Method Room Air Positive well nourished, well developed and obese General Appearance ED: well developed and NAD Nutritional Appearance: obese HEENT Reports normocephalic, head/scalp atraumatic and moist mucous membranes Eyes PERRL and EOMs intact bilaterally Neck no lymphadenopathy, supple and no JVD Resp normal respiratory effort and clear to auscultation bilaterally Cardio regular rate, regular rhythm and no murmurs GI normal to inspection, nondistended, normoactive bowel sounds and non-tender Palpation: soft Back/Spine no CVA tenderness and normal ROM Extremity Extremity Narrative: Bilateral lower extremity edema. There is pitting edema of the mid tibia. The calf is nontender. No palpable cords. The skin is of normal color. General Extremety ED: Yes edema General Extremity: edema bilateral lower extremity Details: moderate Neuro oriented x3 and CN's II-XII intact bilaterally Sensorium / Orientation: alert Motor Exam: strength 5/5 throughout Psych mental status grossly normal Mood & Affect: Negative for depressed or tearful Skin no rashes or lesions noted and no wounds MDM MDM MDM Narrative Medical decision making narrative: Differential diagnosis includes but not limited to lymphedema DVT volume overload congestive heart failure peripheral vascular disease venous insufficiency Patient has bilateral lower extremity edema after a vacation in which she drove to [place] from [place] and back. I think this is less likely to be DVT and more likely to be lymphedema. She has multiple risk factors for this. Patient will be started on a short course of twice daily Lasix and will follow-up with primary care 5 to 7 days for repeat evaluation History & Record Review Discussion w/independent historian: Patient Discharge Plan Triage Chief Complaint: Edema ED Provider: Branden Kay Dx/Rx/DC Orders Clinical Impression: Diabetes, Obesity, Lymphedema Instructions: ED Peripheral Edema, Bilateral Prescriptions: New furosemide [Lasix] 40 mg tablet 40 mg PO BID 5 Days Qty: 10 0RF No Action glimepiride 2 mg tablet 4 mg PO DAILY Patient Comments: TAKE 1 TABLET BY MOUTH ONCE DAILY WITH BREAKFAST ferrous sulfate 325 MG tablet 1 tab PO DAILY Patient Comments: TAKE 1 TABLET BY MOUTH ONCE DAILY WITH BREAKFAST cholecalciferol (vitamin D3) 125 MCG capsule 125 mcg PO DAILY epinephrine 0.3 MG syringe 0.3 mg IM X1 PRN (Reason: Anaphylaxis) Qty: 1 0RF Fenofibrate 48 mg PO DAILY albuterol sulfate 2.5 mg /3 mL (0.083 %) solution for nebulization 2.5 mg inhalation PRN PRN (Reason: ASTHMA) Patient Comments: INHALE 1 VIAL VIA NEBULIZER EVERY 6 HOURS NEEDED FOR SHORTNESS OF BREATH AND WHEEZING lisinopril 5 mg tablet 5 mg PO DAILY Patient Comments: TAKE 1 TABLET BY MOUTH ONCE DAILY promethazine 25 mg tablet 25 mg PO Q6H PRN PRN (Reason: Nausea) Patient Comments: TAKE (1) TABLET BY MOUTH EVERY 6 HOURS NEEDED FOR NAUSEA/VOMITING aripiprazole 10 mg tablet 30 mg PO DAILY Patient Comments: TAKE 1 TABLET BY MOUTH EVERY DAY AT BEDTIME pantoprazole 40 mg Tablet,Delayed Release (Dr/Ec) 40 mg PO BID atorvastatin 10 mg tablet 10 mg PO QHS Patient Comments: TAKE 1 TABLET BY MOUTH ONCE DAILY AT BEDTIME FOR CHOLESTEROL hydroxyzine HCl 50 mg Tablet 100 mg PO QHS hydroxyzine HCl 50 mg Tablet 50 mg PO BID PRN PRN (Reason: Anxiety) metoprolol tartrate 75 mg Tablet 75 mg PO DAILY albuterol sulfate 90 mcg/actuation HFA aerosol inhaler 2 puff INHALATION PRN PRN (Reason: ASTHMA) Qty: 6.7 0RF ondansetron 4 mg tablet,disintegrating 4 mg PO Q8H PRN PRN (Reason: Nausea) Qty: 12 0RF albuterol sulfate 2.5 mg /3 mL (0.083 %) solution for nebulization 2.5 mg inhalation Q6H PRN (Reason: shortness of breath or wheezing) Qty: 75 0RF ondansetron [ondansetron] 4 mg tablet,disintegrating 4 mg PO Q6H PRN PRN (Reason: Nausea) Qty: 15 0RF insulin glargine-yfgn 100 unit/mL (3 mL) insulin pen 70 unit subcut QHS insulin lispro 100 unit/mL insulin pen 4 unit subcut .with meals trazodone 100 mg tablet 200 mg PO QHS norethindrone ac-eth estradiol [Microgestin 06/27 ()] 1-20 mg-mcg tablet 1 tab PO DAILY prazosin 2 mg capsule 2 mg PO QHS guanfacine [Intuniv ER] 3 mg tablet extended release 24 hr 3 mg PO DAILY ondansetron 4 mg tablet,disintegrating 4 mg PO TID PRN (Reason: nausea and vomiting) Qty: 21 0RF cephalexin 500 mg capsule 500 mg PO TID 7 Days Qty: 21 0RF Primary Care Provider: Miguelito Unger Referrals: Miguelito Unger MD [Primary Care Provider] - 5-7 Days Print Language: Dominican Disposition Disposition: Home, Self Care
== END 2024-03-13 08:34 | disposition home or self-care (01) ==
PROVIDERS: Emergency Provider Emergency Medicine; PCP Family Medicine; Visit Provider Emergency Medicine
DX: I89.0 Lymphedema, not elsewhere classified (principal); F31.9 Bipolar disorder, unspecified; E11.9 Type 2 diabetes mellitus without complications; M79.672 Pain in left foot; M79.671 Pain in right foot; E66.9 Obesity, unspecified; Z90.49 Acquired absence of other specified parts of digestive tract; K21.9 Gastro-esophageal reflux disease without esophagitis; F41.9 Anxiety disorder, unspecified; J45.909 Unspecified asthma, uncomplicated; D64.9 Anemia, unspecified
CPT/HCPCS: 96374; 96375; 96376; 99282

== ENCOUNTER 2024-03-30 15:58 | Emergency (ER) | payer MEDICARE, MEDICAID, SELFPAY ==
[2024-03-30 15:59] VITALS: BP 147/108; PULSE 98; RESP 18; TEMP 36.4; O2SAT 99; BMI 65.3
--- NOTE | 2024-03-30 16:07 | EDS_ITS ---
HPI History of Present Illness Chief Complaint: Hyperglycemia Informant: patient Onset/Context/Timing Onset: Today Context: Sudden Onset Timing: Continuous Quality: Tired Location: Generalized Worsened by: Nothing Relieved by: Nothing Narrative Narrative: Patient presents with elevated blood sugars that began today approximately 4 hours prior to arrival. Patient states that they went up rather suddenly. Patient admits to some increasing fatigue. Patient also admits to some sharp pain in her right lower abdomen. Patient states nothing makes her symptoms any better and nothing makes them any worse. Patient admits to polyuria and polydipsia. Patient denies any fevers or chills. Patient denies any nausea or vomiting. Patient is on insulin and oral hypoglycemics. [facility] Medical History Osteoporosis GERD (gastroesophageal reflux disease) CPAP (continuous positive airway pressure) dependence Sleep apnea Proteinuria due to type 2 diabetes mellitus Obesity Hypertriglyceridemia Diabetes Anxiety disorder, unspecified ADHD Bipolar 1 disorder Herniated disc Cancer Depression History of steroid therapy Walker as ambulation aid Arthritis Kidney stones Anemia Injury of back Injury of head and neck Dietary restriction Gastric reflux Non-smoker History of pain when walking History of echocardiogram Cardiology follow-up encounter History of irregular heartbeat Abner's disease Cancer Diabetes Obesity GERD (gastroesophageal reflux disease) Ovarian cyst Asthma PCOS (polycystic ovarian syndrome) Home Medications ?Medication ?Instructions ?Recorded ?Last Taken ?Type ferrous sulfate 325 mg (65 mg 1 tab PO DAILY 05/16/19 01/24/21 08:00 History iron) tablet cholecalciferol (vitamin D3) 125 125 mcg PO DAILY supplement 05/17/19 01/24/21 08:00 History mcg (5,000 unit) capsule epinephrine 0.3 mg/0.3 mL 0.3 mg (0.3 mL) IM X1 PRN 05/14/20 01/30/21 08:00 Rx injection, auto-injector Anaphylaxis ##1 Fenofibrate 48 mg PO DAILY 07/23/20 01/30/21 08:00 History albuterol sulfate 2.5 mg/3 mL 2.5 mg inhalation PRN PRN ASTHMA 01/25/21 01/30/21 08:00 History (0.083 %) solution for nebulization lisinopril 5 mg tablet 5 mg PO DAILY 01/25/21 01/30/21 08:00 History aripiprazole 10 mg tablet 30 mg PO DAILY 07/16/21 Unknown History promethazine 25 mg tablet 25 mg PO Q6H PRN PRN Nausea 07/16/21 Unknown History pantoprazole 40 mg tablet,delayed 40 mg PO BID 07/31/21 Unknown History release glimepiride 2 mg tablet 4 mg PO DAILY 01/07/22 Unknown History atorvastatin 10 mg tablet 10 mg PO QHS 08/07/22 Unknown History hydroxyzine HCl 50 mg tablet 50 mg PO BID PRN PRN Anxiety 08/20/22 Unknown History hydroxyzine HCl 50 mg tablet 100 mg PO QHS 08/20/22 Unknown History metoprolol tartrate 75 mg tablet 75 mg PO DAILY 08/20/22 Unknown History albuterol sulfate 90 mcg/actuation 2 puff inhalation PRN PRN ASTHMA 10/22/22 Unknown Rx aerosol inhaler #6.7 grams albuterol sulfate 2.5 mg/3 mL 2.5 mg (3 mL) inhalation Q6H PRN 03/26/23 Unknown Rx (0.083 %) solution for nebulization shortness of breath or wheezing #75 mL ondansetron 4 mg disintegrating 4 mg PO Q8H PRN PRN Nausea #12 tabs 03/26/23 Unknown Rx tablet ondansetron 4 mg disintegrating 4 mg PO Q6H PRN PRN Nausea #15 tabs 08/31/23 Unknown Rx tablet guanfacine 3 mg tablet,extended 3 mg PO DAILY 01/05/24 Unknown History release 24 hr (Intuniv ER) insulin glargine-yfgn 100 unit/mL 70 unit subcut QHS 01/05/24 Unknown History (3 mL) subcutaneous pen insulin lispro 100 unit/mL 4 unit subcut .with meals 01/05/24 Unknown History subcutaneous pen norethindrone acetate 1 mg-ethinyl 1 tab PO DAILY 01/05/24 Unknown History estradiol 20 mcg tablet (Microgestin) prazosin 2 mg capsule 2 mg PO QHS 01/05/24 Unknown History trazodone 100 mg tablet 200 mg PO QHS 01/05/24 Unknown History ondansetron 4 mg disintegrating 4 mg PO TID PRN nausea and 01/06/24 Unknown Rx tablet vomiting #21 tabs furosemide 40 mg tablet (Lasix) 40 mg PO BID 5 days #10 tabs 03/13/24 Unknown Rx cephalexin 500 mg capsule 500 mg PO TID 3 days #9 caps 03/30/24 Unknown Rx Allergy/AdvReac Type Severity Reaction Status Date / Time nitrofurantoin (From Allergy Intermediate rash Verified 03/13/24 07:52 Macrobid) penicillin V potassium (From Allergy Mild Rash Verified 03/13/24 07:52 Pen-Vee K) adhesive tape (plastic tape) Allergy Rash Verified 03/13/24 07:52 brompheniramine maleate Allergy Shortness Verified 03/13/24 07:52 (From Dimetapp of breath (brompheniramine-PPA)) celery Allergy Swelling Verified 03/13/24 07:52 phenylpropanolamine HCl Allergy Shortness Verified 03/13/24 07:52 (From Dimetapp of breath (brompheniramine-PPA)) amoxicillin trihydrate (From AdvReac Intermediate Diarrhea Verified 03/13/24 07:52 Augmentin) potassium clavulanate (From AdvReac Intermediate Diarrhea Verified 03/13/24 07:52 Augmentin) dicyclomine HCl (From Bentyl) AdvReac Nausea/Vom/ Verified 03/13/24 07:52 Diarrhea fructose AdvReac Nausea/Vom/ Verified 03/13/24 07:52 Diarrhea sertraline (From Zoloft) AdvReac Other Verified 03/13/24 07:52 Family History Father Diabetes Mother Hypertension Grandmother Breast cancer 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 H/O partial adrenalectomy History of back surgery History of adrenal surgery H/O oophorectomy H/O endoscopy History of tonsillectomy and adenoidectomy H/O wisdom tooth extraction H/O ovarian cystectomy Hx of cholecystectomy Social History household members: family Smoking Status: Never smoker alcohol intake: current alcohol intake frequency: a few times a month substance use type: does not use seatbelt use: always do you feel safe at home: Yes ROS ROS ED Constitutional Constitutional ED: Denies chills or fever(s) Eyes Eyes: Denies blurry vision or change in vision ENT ENT ED: Denies rhinorrhea or sore throat Cardiovascular Cardiovascular: Denies chest pain or palpitations Respiratory/Chest Respiratory/Chest: Denies cough or dyspnea Gastrointestinal Gastrointestinal: Denies nausea or vomiting Genitourinary Genitourinary ED: Reports urinary frequency; Denies dysuria or hematuria Musculoskeletal Musculoskeletal: Denies back pain or neck pain Integumentary Reports rash; Denies abscess Neurologic Neurologic: Denies headache(s) or weakness Endocrine Endocrinology: Reports polydipsia and polyuria Allergic/Immunologic Allergic/Immunologic ED: Denies mouth swelling or urticaria EXAM Physical Exam Const Vital Signs: 03/30/24 15:59 03/30/24 16:59 03/30/24 17:00 Temperature 97.6 F L Temperature Source Oral Pulse Rate 98 90 91 Respiratory Rate 18 21 H 24 H Respiratory Effort Respiratory Pattern Blood Pressure 147/108 H 129/100 H 141/104 H Blood Pressure Mean 121 109 116 Pulse Ox 99 97 97 Oxygen Delivery Method Room Air Room Air Room Air 03/30/24 17:15 Temperature Temperature Source Pulse Rate Respiratory Rate Respiratory Effort Normal Respiratory Pattern Normal Blood Pressure Blood Pressure Mean Pulse Ox Oxygen Delivery Method Positive well nourished and well developed General Appearance ED: well developed and NAD HEENT Reports moist mucous membranes Neck supple and no JVD Resp normal respiratory effort and clear to auscultation bilaterally Cardio regular rate and regular rhythm GI non-distended Palpation: soft and tender RLQ; Negative for guarding or rebound tenderness present Neuro oriented x3, CN's II-XII intact bilaterally and no sensory deficits noted Sensorium / Orientation: alert Motor Exam: strength 5/5 throughout MDM MDM MDM Narrative Medical decision making narrative: Differential diagnosis includes diabetic ketoacidosis, hyperosmolar hyperglycemic nonketotic state, hyperglycemia, viral illness, appendicitis, urinary tract infection, and ovarian cyst. CBC will be obtained to assess for leukocytosis and anemia. Basic metabolic profile will be obtained to assess for hyperglycemia, electrolyte abnormality, and renal function. Serum acetone will be obtained to assess for ketosis. Venous blood gas will be obtained to assess for acidosis. CT scan of the abdomen and pelvis will be obtained to assess for appendicitis. Urinalysis will be obtained to assess for urinary tract infection, hematuria, glucosuria, and ketonuria. Lab Data Attestation: I reviewed the patient's lab results. Lab results narrative: CBC was reviewed. There is a mild leukocytosis of 14.9. The remainder was within normal limits. Basic metabolic profile was reviewed. Glucose was elevated at 393. Anion gap was normal. Electrolytes were within normal limits. Serum hCG was reviewed and was negative. Serum acetone was reviewed and was negative. Urinalysis was reviewed. There are positive nitrites and a leukocyte esterase of 25. There are 5-10 white blood cells and 1+ bacteria. Urine glucose was 1000. Urine ketones were negative. Labs: Laboratory Results - last 24 hr 03/30/24 03/30/24 03/30/24 16:22 16:50 16:57 WBC 14.9 H RBC 5.08 Hgb 13.2 Hct 41.9 MCV 82.5 MCH 26.0 L MCHC 31.5 L RDW Std Deviation 43.2 RDW Coeff of Silvia 14.6 Plt Count 341 MPV 10.8 Immature Gran % (Auto) 0.600 Neut % (Auto) 70.4 H Lymph % (Auto) 21.8 [place] % (Auto) 5.0 Eos % (Auto) 1.7 Baso % (Auto) 0.5 Absolute Neuts (auto) 10.5 H Absolute Lymphs (auto) 3.25 Nucleated RBC % 0 Sodium 134 L Potassium 4.3 Chloride 104 Carbon Dioxide 22.0 Anion Gap 7 BUN 15 Creatinine 0.72 Estim Creat Clear Calc 217.50 Est GFR (MDRD) Af Amer 125 Est GFR (MDRD) Non-Af 103 BUN/Creatinine Ratio 20.7 H Glucose 393 H Calcium 9.6 HCG, Quant < 1 Urine Color Yellow Urine Clarity Clear Urine pH 7.0 Ur Specific [place] 1.010 Urine Protein 15 H Urine Glucose (UA) 1000 H Urine Ketones Negative Urine Occult Blood 10 H Urine Nitrite Positive H Urine Bilirubin Negative Urine Urobilinogen Normal Ur Leukocyte Esterase 25 H Urine RBC 0-5 SEEN Urine WBC 5-10 SEEN Ur Squamous Epith Cells 0-5 SEEN Urine Bacteria 1+ Urine Mucus 0 SEEN Acetone Level NEGATIVE POC Glucose 432 H ABG Data Attestation: I personally reviewed and interpreted this ABG as follows: Interpretation: Venous blood gas was reviewed. pH was 7.48, CO2 was 25, bicarb was 24. ABG results: ABG 03/30/24 17:05 Specimen Type AMBER Sample Site Not entered VBG pH 7.48 H VBG pO2 70 H VBG HCO3 24 VBG Total CO2 25 VBG O2 Sat (Calc) 95 H VBG Base Excess 1 POC Mix VBG pCO2 Pt Tmp 32.5 L O2 Delivery Device Not entered Radiography Diagnostic Testing: Clinical Impression(s) from Imaging Studies Abdomen/Pelvis CT 03/30/24 16:39 IMPRESSION: 1. Status post cholecystectomy without ductal dilatation. 2. No masses bowel obstruction abscess free fluid or free air, normal appendix. No evidence of appendicitis. 3. RIGHT ovarian cyst slightly increased size in the interval currently measuring 4.8 x 5.1 cm. Consider follow-up evaluation with ultrasound given the size and interval increase in size. 4. 3 mm nonobstructing calcification in the RIGHT kidney. No ureteral stones or obstructive uropathy. 5. Midline anterior abdominal wall fat-containing hernia located immediately superior to the umbilicus. Electronically Signed: Joe Moody MD at 18:09 EDT , CT scan of the abdomen pelvis was obtained. There is a right ovarian cyst measuring 4.8 x 5.1 cm. There are no masses, obstruction, free fluid, or free air. The appendix was visualized and was normal. This was interpreted by the radiologist and was also independently reviewed by myself. Treatment and Re-Evaluation :: Patient was advised of her findings. Patient was given injection of Humalog here. Patient was given a dose of Bactrim here. Patient was given a prescription for Bactrim. Patient was instructed to continue her insulin as previously prescribed. Patient was instructed to follow-up with her primary care physician in 3 to 5 days for further evaluation. Patient understood and was agreeable with the plan. All questions were answered. Discharge Plan Triage Chief Complaint: Hyperglycemia ED Provider: Gio Ceron Dx/Rx/DC Orders Clinical Impression: Hyperglycemia, Diabetes Instructions: ED Diabetic Hyperglycemia Prescriptions: Continued cephalexin 500 mg capsule 500 mg PO TID 3 Days Qty: 9 0RF No Action glimepiride 2 mg tablet 4 mg PO DAILY Patient Comments: TAKE 1 TABLET BY MOUTH ONCE DAILY WITH BREAKFAST ferrous sulfate 325 MG tablet 1 tab PO DAILY Patient Comments: TAKE 1 TABLET BY MOUTH ONCE DAILY WITH BREAKFAST cholecalciferol (vitamin D3) 125 MCG capsule 125 mcg PO DAILY epinephrine 0.3 MG syringe 0.3 mg IM X1 PRN (Reason: Anaphylaxis) Qty: 1 0RF Fenofibrate 48 mg PO DAILY albuterol sulfate 2.5 mg /3 mL (0.083 %) solution for nebulization 2.5 mg inhalation PRN PRN (Reason: ASTHMA) Patient Comments: INHALE 1 VIAL VIA NEBULIZER EVERY 6 HOURS NEEDED FOR SHORTNESS OF BREATH AND WHEEZING lisinopril 5 mg tablet 5 mg PO DAILY Patient Comments: TAKE 1 TABLET BY MOUTH ONCE DAILY promethazine 25 mg tablet 25 mg PO Q6H PRN PRN (Reason: Nausea) Patient Comments: TAKE (1) TABLET BY MOUTH EVERY 6 HOURS NEEDED FOR NAUSEA/VOMITING aripiprazole 10 mg tablet 30 mg PO DAILY Patient Comments: TAKE 1 TABLET BY MOUTH EVERY DAY AT BEDTIME pantoprazole 40 mg Tablet,Delayed Release (Dr/Ec) 40 mg PO BID atorvastatin 10 mg tablet 10 mg PO QHS Patient Comments: TAKE 1 TABLET BY MOUTH ONCE DAILY AT BEDTIME FOR CHOLESTEROL hydroxyzine HCl 50 mg Tablet 100 mg PO QHS hydroxyzine HCl 50 mg Tablet 50 mg PO BID PRN PRN (Reason: Anxiety) metoprolol tartrate 75 mg Tablet 75 mg PO DAILY albuterol sulfate 90 mcg/actuation HFA aerosol inhaler 2 puff INHALATION PRN PRN (Reason: ASTHMA) Qty: 6.7 0RF ondansetron 4 mg tablet,disintegrating 4 mg PO Q8H PRN PRN (Reason: Nausea) Qty: 12 0RF albuterol sulfate 2.5 mg /3 mL (0.083 %) solution for nebulization 2.5 mg inhalation Q6H PRN (Reason: shortness of breath or wheezing) Qty: 75 0RF furosemide [Lasix] 40 mg tablet 40 mg PO BID 5 Days Qty: 10 0RF ondansetron [ondansetron] 4 mg tablet,disintegrating 4 mg PO Q6H PRN PRN (Reason: Nausea) Qty: 15 0RF insulin glargine-yfgn 100 unit/mL (3 mL) insulin pen 70 unit subcut QHS insulin lispro 100 unit/mL insulin pen 4 unit subcut .with meals trazodone 100 mg tablet 200 mg PO QHS norethindrone ac-eth estradiol [Microgestin 06/27 (21)] 1-20 mg-mcg tablet 1 tab PO DAILY prazosin 2 mg capsule 2 mg PO QHS guanfacine [Intuniv ER] 3 mg tablet extended release 24 hr 3 mg PO DAILY ondansetron 4 mg tablet,disintegrating 4 mg PO TID PRN (Reason: nausea and vomiting) Qty: 21 0RF Primary Care Provider: Miguelito Unger Referrals: Miguelito Unger MD [Primary Care Provider] - 3-5 Days Print Language: Slovenian Disposition Disposition: Home, Self Care
--- NOTE | 2024-03-30 16:39 | CT_ITS ---
INDICATION: Abdominal pain EXAMINATION: CT ABDOMEN AND PELVIS with CONTRAST - CT Abdomen And Pelvis W/ Contrast Injection TECHNIQUE: Multiple axial images were obtained of the abdomen and pelvis following administration of IV contrast. Planar reconstructions obtained. A radiation dose optimization technique was used for this scan. RADIATION DOSAGE (If Supplied By Facility): CTDIvol = ( 17.07 ) mGy, DLP = ( 1324.88 ) mGycm IV Contrast dosage and agent: 100 mL Isovue-300 Oral contrast: None. COMPARISON: 01/16/2023 FINDINGS: LOWER CHEST: 1. Lung bases are clear. 2. No cardiomegaly or pericardial effusion. 3. No significant coronary vascular calcifications. HEPATOBILIARY: Liver: The liver is homogeneous and shows no evidence of focal lesion, however the liver is enlarged appeared. Gallbladder: Surgically absent, no ductal dilatation. Pancreas: Pancreas is normal size configuration and density. No mass is noted. Spleen: The spleen is homogeneous and normal in size. . BOWEL: Stomach: The stomach is normal in size configuration, no evidence of focal masses, abnormal calcifications. No hiatal hernia noted. Bowel: Small and large have normal configuration, no masses or bowel obstruction noted. Appendix: The visualized appendix has normal appearance.: GENITOURINARY: Adrenals: Both adrenal glands are normal in size. Kidneys: Kidneys appear symmetric in size. There is a 3 mm nonobstructing calcification lower pole RIGHT kidney. No ureteral stones noted. There is no hydronephrosis or surrounding fluid. Bladder: Normal Pelvic organs: Uterus has normal configuration. There is a RIGHT ovarian cyst measuring 4.8 x 5.1 cm, slightly increased in size in the interval from prior exam. RETROPERITONEUM: There is normal appearance of the abdominal aorta and inferior vena cava. LYMPH NODES: No evidence of retroperitoneal or para-aortic masses fluid collections or adenopathy. PERITONEAL CAVITY: No ascites noted ANTERIOR ABDOMINAL WALL: Midline fat-containing hernia without evidence of bowel involvement, this is immediately superior to the umbilicus. BONES AND SOFT TISSUES: The skeleton shows no evidence for fractures or destructive lesions. OTHER: None CT/Abdomen/Pelvis W IV Cont ONLY IMPRESSION: 1. Status post cholecystectomy without ductal dilatation. 2. No masses bowel obstruction abscess free fluid or free air, normal appendix. No evidence of appendicitis. 3. RIGHT ovarian cyst slightly increased size in the interval currently measuring 4.8 x 5.1 cm. Consider follow-up evaluation with ultrasound given the size and interval increase in size. 4. 3 mm nonobstructing calcification in the RIGHT kidney. No ureteral stones or obstructive uropathy. 5. Midline anterior abdominal wall fat-containing hernia located immediately superior to the umbilicus. Electronically Signed: Joe Moody MD at 18:09 EDT ,
[2024-03-30 16:40] LABS: Bedside Glucose 432 mg/dL (74-106)
[2024-03-30 16:59] VITALS: BP 129/100; PULSE 90; RESP 21; O2SAT 97
[2024-03-30 17:00] VITALS: BP 141/104; PULSE 91; RESP 24; O2SAT 97
[2024-03-30 17:00] LABS: Absolute Lymphocyte Count 3.25 X10^3/uL (0.83-4.51); Absolute Neutrophil Count 10.5 X10^3/uL (2.0-7.7); Basophil# 0.07 X10^3/uL; Basophil% 0.5 % (0-1); Eosinophil# 0.26 X10^3/uL; Eosinophils% 1.7 % (0-5); Hematocrit 41.9 % (37-47); Hemoglobin 13.2 g/dL (12.0-15.0); Lymphocyte # 3.25 X10^3/ul (0.83-4.51); Lymphocyte % 21.8 % (19-41); Mean Corp Hgb Conc 31.5 g/dL (32-36); Mean Corpuscular Volume 82.5 fL (81-99); Mean Platelet Vol. 10.8 fl (6.2-12.0); Monocyte# 0.75 X10^3/uL; NRBC Flagged by Analyzer 0 % (0-5); Neutrophil % 70.4 % (47-70); Platelet Count 341 K/mm3 (150-450); RBC Distribution Width CV 14.6 % (11.6-14.6); RBC Distribution Width SD 43.2 fl (35.1-43.9); Red Blood Count 5.08 M/mm3 (4.2-5.4); White Blood Count 14.9 K/mm3 (4.4-11.0)
[2024-03-30 17:03] LABS: Mucous, Urine 0 SEEN /hpf (<or=2+)
[2024-03-30 17:09] LABS: Blood Gas Specimen Type VEN; O2 Delivery Device Not entered; SITE Not entered; VBG BASE EXCESS 1 mmol/L (-1.0-3.5); VBG Bicarbonate 24 mmol/L (22-26); VBG PO2 70 mmHg (25-40); VBG SO2 95 % (50-70); VBG TCO2 25 mmol/L (23-33); VBG pCO2 32.5 mmHg (41-51); VBG pH 7.48 (7.32-7.42)
[2024-03-30 17:17] LABS: Color, Urine Yellow (Yellow); Glucose, Dipstick 1000 mg/dl (Normal); Ketone-Dipstick Negative (Negative); Leukocyte Esterase-Dipstick 25 /ul (Negative); Nitrite-Dipstick Positive (Negative); Occult Blood-Urine 10 /ul (Negative); Protein-Dipstick 15 mg/dl (Negative); Urine Bilirubin Dipstick Negative (Negative); Urine Clarity Clear (Clear); Urine Urobilinogen Normal (Normal)
[2024-03-30 17:19] LABS: Anion Gap 7 (5-15); BUN 15 mg/dL (7-18); BUN/Creat Ratio 20.7 RATIO (10-20); Calcium,Total 9.6 mg/dL (8.5-10.1); Chloride 104 mmol/L (98-107); Creatinine, Serum 0.72 mg/dL (0.55-1.02); EST Glomerular Filtration Rate 103 mL/min (>60); Est Glom Filt Rate - Afr Amer 125 mL/min (>60); Glucose 393 mg/dL (74-106); Potassium 4.3 mmol/L (3.5-5.1); Sodium Level 134 mmol/L (136-145)
[2024-03-30 17:25] LABS: hCG Titer Quant., Serum < 1 mIU/mL (1-3)
[2024-03-30 17:29] LABS: Bacteria 1+ /hpf (None Seen); Red Blood Cells-Urine 0-5 SEEN /hpf (0-5); Squamous Epithelial Cells - UA 0-5 SEEN /hpf (5-10); White Blood Cells 5-10 SEEN /hpf (0-5)
[2024-03-30 18:00] VITALS: BP 135/73; PULSE 80; RESP 19; O2SAT 97
[2024-03-30] MEDS: Insulin Lispro 100 UNIT/ML INSULN.PEN 8 UNIT SC (18:25)
[2024-03-30] MEDS: Smz/Tmp Ds Tablet 1 TABLET PO (18:25)
[2024-03-30 18:45] VITALS: BP 144/78; PULSE 84; RESP 18; TEMP 36.6; O2SAT 99
== END 2024-03-30 19:02 | disposition home or self-care (01) ==
PROVIDERS: Emergency Provider Emergency Medicine; PCP Family Medicine; Visit Provider Emergency Medicine
DX: E11.65 Type 2 diabetes mellitus with hyperglycemia (principal); F31.9 Bipolar disorder, unspecified; Z79.4 Long term (current) use of insulin; N83.201 Unspecified ovarian cyst, right side; R10.31 Right lower quadrant pain; D64.9 Anemia, unspecified; M81.0 Age-related osteoporosis without current pathological fracture; K21.9 Gastro-esophageal reflux disease without esophagitis; E66.9 Obesity, unspecified; E78.1 Pure hyperglyceridemia; E28.2 Polycystic ovarian syndrome; F90.9 Attention-deficit hyperactivity disorder, unspecified type; M19.90 Unspecified osteoarthritis, unspecified site; J45.909 Unspecified asthma, uncomplicated; G47.30 Sleep apnea, unspecified; Z88.1 Allergy status to other antibiotic agents; Z88.0 Allergy status to penicillin; Z90.49 Acquired absence of other specified parts of digestive tract; Z79.84 Long term (current) use of oral hypoglycemic drugs; Z87.442 Personal history of urinary calculi; Z79.899 Other long term (current) drug therapy
CPT/HCPCS: 74177; 80048; 81001; 82009; 82803; 82962; 84702; 85025; 87086; 87088; 96372; 99283; Q9967; A4216

== ENCOUNTER → 2024-05-07 | Outpatient (CLI) | payer MEDICARE, MEDICAID, SELFPAY ==
--- NOTE | 2024-05-07 07:35 | MRI_ITS ---
EXAM: MR LEFT LOWER EXTREMITY WITHOUT INTRAVENOUS CONTRAST, KNEE CLINICAL INDICATION: MEDIAL AND POSTERIOR PAIN, INSTABILITY, NO KNOWN INJURY TECHNIQUE: Multiplanar and multisequence MR images of the left knee without intravenous contrast. COMPARISON: No relevant prior studies available. FINDINGS: BONES/JOINTS: No significant abnormality. No fracture. No synovial hypertrophy. No intra-articular body. EXTENSOR MECHANISM: No significant abnormality. MEDIAL MENISCUS: No significant abnormality. LATERAL MENISCUS: No significant abnormality. MEDIAL CAPSULE/SUPPORTING STRUCTURES: No significant abnormality. Intact. LATERAL CAPSULE/SUPPORTING STRUCTURES: No significant abnormality. Lateral collateral ligamentous complex, inclusive of the popliteal tendon, are intact. ANTERIOR CRUCIATE LIGAMENT: Normal orientation of the anterior cruciate ligament although with abnormal signal perhaps indicating an ACL strain rather than tear. Correlate for associated physical exam findings. POSTERIOR CRUCIATE LIGAMENT: No significant abnormality. Intact. MUSCLES: No significant abnormality. CARTILAGE: No significant abnormality. Intact. FLUID: There is a small joint effusion. OTHER SOFT TISSUES: No significant abnormality. No popliteal cyst. MRI/Lower Ext Joint Only (Routine) IMPRESSION: 1. Normal orientation of the anterior cruciate ligament although with abnormal signal perhaps indicating an ACL strain rather than tear. Correlate for associated physical exam findings. 2. There is a small joint effusion. Electronically Signed: Chance Abel DO at 17:07 EST ,
== END | disposition home or self-care (01) ==
LOC: MRI 07:01
PROVIDERS: PCP Family Medicine; Referring Provider Physician Assistant; Visit Provider Physician Assistant
DX: S83.8X2A Sprain of other specified parts of left knee, initial encounter (principal); M25.562 Pain in left knee; M25.362 Other instability, left knee
CPT/HCPCS: 73721

== ENCOUNTER 2024-05-21 12:39 | Emergency (ER) | payer MEDICARE, MEDICAID, SELFPAY ==
[2024-05-21 12:39] VITALS: PULSE 115; PULSE 120; RESP 14; TEMP 36.6; O2SAT 98
[2024-05-21 12:44] VITALS: BMI 67.6
[2024-05-21 12:57] VITALS: BP 154/94; PULSE 120; RESP 12; O2SAT 98; BMI 67.6
--- NOTE | 2024-05-21 12:57 | CT_ITS ---
We are attempting to reach an attending provider to discuss findings. An addendum with communication details will be sent when the communication is complete. HISTORY: Neuro deficit, acute, stroke suspected. TECHNIQUE: [place]/head and carotid CT angiogram protocol was performed after the intravenous administration of 100 mL Isovue 370. NASCET criteria using the distal ICAs for comparison were used for evaluation of stenoses. 3D reconstructions were reviewed. A radiation dose optimization technique was used for this scan. 2228 images. COMPARISON: None. FINDINGS: Limited evaluation due to suboptimal contrast bolus and artifact from body habitus. AORTIC ARCH AND BRANCHES: No significant stenosis. RIGHT CCA/ICA: No occlusion, dissection, or significant stenosis. LEFT CCA/ICA: No occlusion dissection, or significant stenosis. RIGHT VERTEBRAL ARTERY: No occlusion. LEFT VERTEBRAL ARTERY: No occlusion. Originates directly off the arch. OTHER: Small linear lucency in the left C6 articular process. Mild prominent cervical lymph nodes, likely reactive. ICAs: No significant stenosis at the intracranial/visualized segments. ACAs: No significant stenosis at the visualized segments. MCAs: No significant stenosis at the visualized segments. analog ic design engineer: No significant stenosis at the visualized segments. BASILAR ARTERY: No significant stenosis. VERTEBRAL ARTERIES: No significant stenosis at the intradural/visualized segments. No evidence of intracranial aneurysm or vascular malformation. CT/STROKE CTA Head AND Neck W/Con IMPRESSION: Limited CTA neck due to artifact from body habitus and suboptimal contrast bolus. No evidence for significant stenosis or occlusion in the carotid or vertebral arteries of the neck. Small linear lucency in the left C6 articular process, likely old nondisplaced fracture. No evidence for large vessel occlusion in the [place] region. Electronically Signed: Bianka Wilkins MD at 13:49 EST ,
--- NOTE | 2024-05-21 12:57 | CT_ITS ---
We are attempting to reach an attending provider to discuss findings. An addendum with communication details will be sent when the communication is complete. INDICATION: Neuro deficit, acute, stroke suspected -- Vertigo not positional EXAMINATION: CT BRAIN - CT Head Stroke Protocol W/O Contrast Injection TECHNIQUE: Multiple axial images were obtained of the head without intravenous contrast. The protocol utilizes one or more of the following dose reduction techniques: automated exposure control, adjustment of mA and/or kV according to patient size,and/or use of iterative reconstruction technique. IV Contrast dosage and agent: None. RADIATION DOSAGE (If Supplied By Facility): CTDIvol = ( ) mGy, DLP = ( ) mGycm COMPARISON: No relevant prior comparison study available FINDINGS: BRAIN PARENCHYMA: No intra- or extra-axial hemorrhage. No evidence of acute infarct. No intracranial mass or mass effect. There is preservation of the leiva/white matter interface. Posterior fossa structures are unremarkable. CSF SPACES: Appropriate for age. No hydrocephalus. Basal cisterns are patent. CALVARIUM, SKULL BASE, PARANASAL SINUSES AND MASTOID AIR CELLS: There are round low-attenuation foci within the maxillary sinuses consistent with mucous retention cysts or polyps. No discrete lytic or blastic abnormalities. ORBITS: Both globes, extraocular muscles, optic nerves and retrobulbar fat appear unremarkable. ASPECTS Score for Acute Strokes: 10 CT/STROKE Brain/Head without Cont IMPRESSION: No acute intracranial process. Electronically Signed: Grecia Ontiveros MD at 13:13 EST ,
--- NOTE | 2024-05-21 12:57 | EKG12_ITS ---
Test Reason : NEURO Blood Pressure : */* mmHG Vent. Rate : 121 BPM Atrial Rate : 121 BPM P-R Int : 160 ms QRS Dur : 82 ms QT Int : 322 ms P-R-T Axes : 32 5 47 degrees QTcB Int : 457 ms Sinus tachycardia with Premature ventricular complexes or Fusion complexes Septal infarct , age undetermined Possible Lateral infarct , age undetermined Abnormal ECG Confirmed by BESSY MARCH, WESTON ([id number]), film editor supervisor KRISTIE CARRERO ([id number]) on 05/25/2024 1:37:58 P M Referred By: Confirmed By: WESTON DOHERTY MD
--- NOTE | 2024-05-21 13:03 | ED.VIS.STROK ---
HPI History of Present Illness Chief Complaint: Dizziness Detail of Chief Complaint: Room/she is spending Informant: patient and parent Onset/Context/Timing Onset: Hours (Onset 1210 when she text her mother) Context: Sudden Onset Timing: Continuous Quality and Location: Positive for Difficulty with Ambulation Onset: 1210 Current Severity: Mild Maximum Severity: Moderate Worsened by: Having patient sit up with arms extended. Relieved by: Nothing Associated Symptoms Associated Symptoms: Positive for Nausea; Negative for Headache, Vomiting or Chest Pain Narrative Narrative: Patient is a 28-year-old type II diabetic on insulin for the past 9 years who presents with vertiginous symptoms. She feels like her body is moving and balance is off. She also has history of hypercholesterolemia. Review of prior records indicates she has history of polycystic ovarian syndrome. Patient presents with complaint of dizziness. When asked to define dizziness she feels like things are spinning and her balance is off. She denies visual changes. Denies trouble speech or swallowing. Denies ringing or ears. She denies cardiac or respiratory symptoms. She does endorse nausea without vomiting or diarrhea. There is no history of head trauma. Prior similar symptoms: No Recent Illness/Hospitalization: No PFSH PFS Medical History Osteoporosis GERD (gastroesophageal reflux disease) CPAP (continuous positive airway pressure) dependence Sleep apnea Proteinuria due to type 2 diabetes mellitus Obesity Hypertriglyceridemia Diabetes Anxiety disorder, unspecified ADHD Bipolar 1 disorder Herniated disc Cancer Depression History of steroid therapy Walker as ambulation aid Arthritis Kidney stones Anemia Injury of back Injury of head and neck Dietary restriction Gastric reflux Non-smoker History of pain when walking History of echocardiogram Cardiology follow-up encounter History of irregular heartbeat Abner's disease Cancer Diabetes Obesity GERD (gastroesophageal reflux disease) Ovarian cyst Asthma PCOS (polycystic ovarian syndrome) Home Medications ?Medication ?Instructions ?Recorded ?Last Taken ?Type cholecalciferol (vitamin D3) 125 125 mcg PO DAILY supplement 05/17/19 01/24/21 08:00 History mcg (5,000 unit) capsule epinephrine 0.3 mg/0.3 mL 0.3 mg (0.3 mL) IM X1 PRN 05/14/20 01/30/21 08:00 Rx injection, auto-injector Anaphylaxis ##1 albuterol sulfate 2.5 mg/3 mL 2.5 mg inhalation PRN PRN ASTHMA 01/25/21 01/30/21 08:00 History (0.083 %) solution for nebulization lisinopril 5 mg tablet 5 mg PO DAILY 01/25/21 01/30/21 08:00 History pantoprazole 40 mg tablet,delayed 40 mg PO BID 07/31/21 Unknown History release glimepiride 2 mg tablet 4 mg PO DAILY 01/07/22 Unknown History atorvastatin 10 mg tablet 10 mg PO QHS 08/07/22 Unknown History hydroxyzine HCl 50 mg tablet 50 mg PO BID PRN PRN Anxiety 08/20/22 Unknown History hydroxyzine HCl 50 mg tablet 100 mg PO QHS 08/20/22 Unknown History albuterol sulfate 90 mcg/actuation 2 puff inhalation PRN PRN ASTHMA 10/22/22 Unknown Rx aerosol inhaler #6.7 grams albuterol sulfate 2.5 mg/3 mL 2.5 mg (3 mL) inhalation Q6H PRN 03/26/23 Unknown Rx (0.083 %) solution for nebulization shortness of breath or wheezing #75 mL guanfacine 3 mg tablet,extended 3 mg PO DAILY 01/05/24 Unknown History release 24 hr (Intuniv ER) insulin glargine-yfgn 100 unit/mL 70 unit subcut QHS 01/05/24 Unknown History (3 mL) subcutaneous pen insulin lispro 100 unit/mL 4 unit subcut .with meals 01/05/24 Unknown History subcutaneous pen norethindrone acetate 1 mg-ethinyl 1 tab PO DAILY 01/05/24 Unknown History estradiol 20 mcg tablet (Microgestin) prazosin 2 mg capsule 2 mg PO QHS 01/05/24 Unknown History trazodone 100 mg tablet 200 mg PO QHS 01/05/24 Unknown History ondansetron 4 mg disintegrating 4 mg PO TID PRN nausea and 01/06/24 Unknown Rx tablet vomiting #21 tabs furosemide 40 mg tablet (Lasix) 40 mg PO BID 5 days #10 tabs 03/13/24 Unknown Rx aripiprazole 20 mg tablet 20 mg PO QHS 05/21/24 Unknown History cephalexin 500 mg capsule 500 mg PO Q6 #28 CAPSULES 05/21/24 Unknown Rx fenofibrate nanocrystallized 48 mg 48 mg PO DAILY 05/21/24 Unknown History tablet ferrous sulfate 140 mg (45 mg 140 mg PO DAILY 05/21/24 Unknown History iron) tablet,extended release (Slow Release Iron) gabapentin 300 mg capsule 300 mg PO TID 05/21/24 Unknown History lamotrigine 100 mg tablet 100 mg PO QHS 05/21/24 Unknown History lamotrigine 25 mg tablet 75 mg PO DAILY 05/21/24 Unknown History meloxicam 15 mg tablet 15 mg PO DAILY 05/21/24 Unknown History metformin 500 mg tablet,extended 1,000 mg PO BID 05/21/24 Unknown History release 24 hr metoprolol succinate 50 mg 75 mg PO DAILY 05/21/24 Unknown History tablet,extended release 24 hr Allergy/AdvReac Type Severity Reaction Status Date / Time nitrofurantoin (From Allergy Intermediate rash Verified 05/21/24 12:40 Macrobid) penicillin V potassium (From Allergy Mild Rash Verified 05/21/24 12:40 Pen-Vee K) adhesive tape (plastic tape) Allergy Rash Verified 05/21/24 12:40 brompheniramine maleate Allergy Shortness Verified 05/21/24 12:40 (From Dimetapp of breath (brompheniramine-PPA)) celery Allergy Swelling Verified 05/21/24 12:40 phenylpropanolamine HCl Allergy Shortness Verified 05/21/24 12:40 (From Dimetapp of breath (brompheniramine-PPA)) amoxicillin trihydrate (From AdvReac Intermediate Diarrhea Verified 05/21/24 12:40 Augmentin) potassium clavulanate (From AdvReac Intermediate Diarrhea Verified 05/21/24 12:40 Augmentin) dicyclomine HCl (From Bentyl) AdvReac Nausea/Vom/ Verified 05/21/24 12:40 Diarrhea fructose AdvReac Nausea/Vom/ Verified 05/21/24 12:40 Diarrhea sertraline (From Zoloft) AdvReac Other Verified 05/21/24 12:40 Family History Father Diabetes Mother Hypertension Grandmother Breast cancer 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 H/O partial adrenalectomy History of back surgery History of adrenal surgery H/O oophorectomy H/O endoscopy History of tonsillectomy and adenoidectomy H/O wisdom tooth extraction H/O ovarian cystectomy Hx of cholecystectomy Social History household members: family Smoking Status: Never smoker alcohol intake: current alcohol intake frequency: a few times a month substance use type: does not use seatbelt use: always do you feel safe at home: Yes ROS ROS ED Constitutional Constitutional ED: Denies chills, fever(s), subjective or sweats Eyes Eyes: Denies blurry vision, change in vision or diplopia ENT ENT ED: Denies ear pain, rhinorrhea or sore throat Cardiovascular Cardiovascular: Denies chest pain or palpitations Respiratory/Chest Respiratory/Chest: Denies cough, dyspnea or dyspnea on exertion Gastrointestinal Gastrointestinal: Reports nausea; Denies abdominal pain, diarrhea or vomiting Musculoskeletal Musculoskeletal: Denies arthralgias, back pain or myalgias Integumentary Denies rash Neurologic Neurologic: Reports other Details: Problems with balance ; Denies headache(s), paresthesias or weakness Endocrine Endocrinology: Denies polydipsia or polyuria Hematologic/Lymphatic Hematologic/Lymphatic: Denies easy bleeding or easy bruising EXAM Physical Exam Const Vital Signs: 05/21/24 12:39 05/21/24 12:39 05/21/24 12:57 Temperature 98 F Temperature Source Temporal Pulse Rate 115 H 120 H 120 H Respiratory Rate 14 12 Blood Pressure 154/94 H Blood Pressure Mean 114 Pulse Ox 98 98 Oxygen Delivery Method Room Air Room Air 05/21/24 12:57 05/21/24 13:27 05/21/24 14:00 Temperature Temperature Source Pulse Rate 119 H 118 H Respiratory Rate 18 16 Blood Pressure 143/71 H 163/85 H Blood Pressure Mean 95 111 Pulse Ox 98 99 Oxygen Delivery Method Room Air Room Air Room Air 05/21/24 14:30 Temperature Temperature Source Pulse Rate 128 H Respiratory Rate 20 H Blood Pressure 147/86 H Blood Pressure Mean 106 Pulse Ox 98 Oxygen Delivery Method Room Air Positive well nourished and well developed Constitutional Narrative: BMI is 67.6. General Appearance ED: well developed and NAD HEENT Reports moist mucous membranes atraumatic Nose: other Other Details: Normal. Posterior pharynx is normal. There is no deviation with protrusion. Eyes PERRL and EOMs intact bilaterally General Eye ED: Negative for pale conjunctiva or scleral icterus Neck no lymphadenopathy, supple and no JVD Neck Narrative: There are no carotid bruits. Resp normal respiratory effort and clear to auscultation bilaterally Cardio no murmurs Rate: regular rate Rhythm: regular rhythm Heart Sounds: S1 normal and S2 normal GI normal to inspection, nondistended, normoactive bowel sounds, soft to palpation, non-tender, non-distended and no masses Back/Spine no CVA tenderness Extremity normal to inspection Extremity Narrative: Finger-nose to finger was performed adequately. Patient unable to do [id number] because of body habitus. Having the patient sit up because difficulty. She begins to sway. Her dizziness does not resolve when she closes her eyes. There is no nystagmus noted with lateral gaze to the right or left. There is no scleral icterus. Conjunctive is normal. General Extremety ED: Negative for deformity or edema General Extremity: Negative for deformity or edema Neuro oriented x3, CN's II-XII intact bilaterally and no sensory deficits noted Bruce Coma Scale: document GCS findings Spontaneous Obeys Commands Oriented 15 Sensorium / Orientation: alert Motor Exam: strength 5/5 throughout Psych mental status grossly normal Skin no wounds General Skin Exam: Negative for jaundice Lesions: no lesions Rashes: no rashes NIHSS NIHSS Initial: 1a Level of Consciousness: 0 1b LOC Questions (Score 2 if aphasic/stupor): 0 1c LOC Commands (Only score 1st attempt): 0 2 Best Gaze (If aphasic, use reflexive mvmts.): 0 3 Visual: 0 4 Facial Palsy: 0 5 Motor Arm Right (UN = amputation/fusion): 0 5 Motor Arm Left: 0 6 Motor Leg Right: 0 6 Motor Leg Left: 0 7 Limb ataxia (Only + if out of proportion): 0 8 Sensory (Aphasia/stupor=0 or 1, coma=2): 0 9 Best Language: 0 10 Dysarthria (mute, coma=2, intubated=UN): 0 11 Extinction and Inattention (only scored if +): 0 Total Score: 0 MDM MDM MDM Narrative Medical decision making narrative: Patient has truncal ataxia. With her reporting no change in position and still having vertigo with eyes closed concerned this represents a stroke. Stroke team was called. Stroke order set was initiated. Patient's NIH is 0. She does have truncal ataxia. Lab Data Attestation: I reviewed the patient's lab results. Labs: Laboratory Results - last 24 hr 05/21/24 05/21/24 05/21/24 12:50 13:10 15:23 WBC 14.6 H RBC 5.04 Hgb 13.2 Hct 41.3 MCV 81.9 MCH 26.2 L MCHC 32.0 RDW Std Deviation 42.1 RDW Coeff of Silvia 14.4 Plt Count 371 MPV 10.7 Immature Gran % (Auto) 0.700 Neut % (Auto) 85.2 H Lymph % (Auto) 9.1 L [place] % (Auto) 3.2 Eos % (Auto) 1.4 Baso % (Auto) 0.4 Absolute Neuts (auto) 12.4 H Absolute Lymphs (auto) 1.33 Nucleated RBC % 0 PT 13.1 INR 1.0 APTT 25.2 Sodium 135 L Potassium 4.4 Chloride 101 Carbon Dioxide 26.0 Anion Gap 8 BUN 10 Creatinine 0.63 Estim Creat Clear Calc 254.34 Est GFR (MDRD) Af Amer 147 Est GFR (MDRD) Non-Af 121 BUN/Creatinine Ratio 15.9 Glucose 251 H Calcium 9.5 Troponin I High Sens < 3 L Urine Color Yellow Urine Clarity Clear Urine pH 6.5 Ur Specific Candor 1.010 Urine Protein 15 H Urine Glucose (UA) 1000 H Urine Ketones Negative Urine Occult Blood 25 H Urine Nitrite Positive H Urine Bilirubin Negative Urine Urobilinogen Normal Ur Leukocyte Esterase 100 H Urine RBC 0-5 SEEN Urine WBC 5-10 SEEN Ur Squamous Epith Cells 0 SEEN Urine Bacteria 3+ Urine Mucus 0 SEEN POC Glucose 275 H Radiography Diagnostic Testing: Clinical Impression(s) from Imaging Studies Brain CT 05/21/24 12:57 IMPRESSION: No acute intracranial process. Electronically Signed: Grecia Ontiveros MD at 13:13 EST , ADDENDUM: 05/21/24 1320 IMPRESSION: No acute intracranial process. N.B. : The above Results were Read Back by Grecia Ontiveros MD to Ehsan Campbell MD, and understanding confirmed on 05/21/2024 13:13:44 (ET). Electronically Signed: Grecia Ontiveros MD at 13:13 EST , Head/Neck CTA 05/21/24 12:57 IMPRESSION: Limited CTA neck due to artifact from body habitus and suboptimal contrast bolus. No evidence for significant stenosis or occlusion in the carotid or vertebral arteries of the neck. Small linear lucency in the left C6 articular process, likely old nondisplaced fracture. No evidence for large vessel occlusion in the [place]. Electronically Signed: Bianka Wilkins MD at 13:49 EST , ADDENDUM: 05/21/24 1357 IMPRESSION: Limited CTA neck due to artifact from body habitus and suboptimal contrast bolus. No evidence for significant stenosis or occlusion in the carotid or vertebral arteries of the neck. Small linear lucency in the left C6 articular process, likely old nondisplaced fracture. No evidence for large vessel occlusion in the [place]. N.B. : The above Results were Read Back by Bianka Wilkins MD to Ehsan Campbell MD, and understanding confirmed on 05/21/2024 13:50:11 (ET). Electronically Signed: Bianka Wilkins MD at 13:49 EST , Chest X-Ray 05/21/24 14:49 IMPRESSION: No radiographic evidence of acute cardiopulmonary disease. Electronically Signed: Grecia Ontiveros MD at 15:18 EST , CT of the head without contrast reveals no obvious abnormality. Awaiting formal read by radiologist. Received call from Dr. Grecia Ontiveros radiologist at 1314. CT revealed no acute intracranial process. EKG Initial EKG: Interpretation: Sinus Tachycardia (Rate is 121. There is significant motion artifact. There is decreased anterior force. There may be left atrial enlargement. MT interval is under 60 ms Rickers duration 82 ms. QT duration 322 ms. [place] is normal. This EKG is difficult to interpret due to artifact/poor quality.) Management Discussion w/another healthcare provider: Radiologist (Dr. Lori Ontiveros informing of the CAT scan results.) Treatment and Re-Evaluation Narrative: The charge nurse informing that patient walked into the ER. She was able to get herself into the bed without difficulty. This raises concern that this may be a conversion reaction. Will speak with Dr. Steinberg the [facility] neurologist once he is available. I was informed by nurse at 1330 that her mother states she gets like this when she has urinary tract infection. In light of this straight cath was ordered and a complete urinalysis. I was informed by nurse when patient was informed that we did a urinalysis she urinated in the bed. When I went back to inform patient and mother that I was awaiting the results of the urinalysis mother informing that she sometimes gets like this when she is dehydrated. Patient is lying on her left side. She moves her head with no symptoms even though she is still complaining of being dizzy . Spoke to mother and patient. Both of them states she has had cephalexin in the past. Therefore will prescribe cephalexin. Urine culture was sent. Patient was able to turn from left decubitus to supine position with no symptoms. Discharge Plan Triage Chief Complaint: Dizziness ED Provider: Ehsan Campbell Dx/Rx/DC Orders Clinical Impression: Conversion disorder with mixed symptoms, History of polycystic ovarian syndrome, Urinary tract infection, Body mass index (BMI) greater than 50, Leukocytosis, Hyperglycemia due to type 2 diabetes mellitus Instructions: ED Cystitis Female Adult Prescriptions: New cephalexin 500 mg capsule 500 mg PO Q6 Qty: 28 0RF No Action glimepiride 2 mg tablet 4 mg PO DAILY Patient Comments: TAKE 1 TABLET BY MOUTH ONCE DAILY WITH BREAKFAST cholecalciferol (vitamin D3) 125 MCG capsule 125 mcg PO DAILY epinephrine 0.3 MG syringe 0.3 mg IM X1 PRN (Reason: Anaphylaxis) Qty: 1 0RF albuterol sulfate 2.5 mg /3 mL (0.083 %) solution for nebulization 2.5 mg inhalation PRN PRN (Reason: ASTHMA) Patient Comments: INHALE 1 VIAL VIA NEBULIZER EVERY 6 HOURS NEEDED FOR SHORTNESS OF BREATH AND WHEEZING lisinopril 5 mg tablet 5 mg PO DAILY Patient Comments: TAKE 1 TABLET BY MOUTH ONCE DAILY pantoprazole 40 mg Tablet,Delayed Release (Dr/Ec) 40 mg PO BID atorvastatin 10 mg tablet 10 mg PO QHS Patient Comments: TAKE 1 TABLET BY MOUTH ONCE DAILY AT BEDTIME FOR CHOLESTEROL hydroxyzine HCl 50 mg Tablet 100 mg PO QHS hydroxyzine HCl 50 mg Tablet 50 mg PO BID PRN PRN (Reason: Anxiety) albuterol sulfate 90 mcg/actuation HFA aerosol inhaler 2 puff INHALATION PRN PRN (Reason: ASTHMA) Qty: 6.7 0RF albuterol sulfate 2.5 mg /3 mL (0.083 %) solution for nebulization 2.5 mg inhalation Q6H PRN (Reason: shortness of breath or wheezing) Qty: 75 0RF furosemide [Lasix] 40 mg tablet 40 mg PO BID 5 Days Qty: 10 0RF insulin glargine-yfgn 100 unit/mL (3 mL) insulin pen 70 unit subcut QHS insulin lispro 100 unit/mL insulin pen 4 unit subcut .with meals trazodone 100 mg tablet 200 mg PO QHS norethindrone ac-eth estradiol [Microgestin 06/27 ()] 1-20 mg-mcg tablet 1 tab PO DAILY prazosin 2 mg capsule 2 mg PO QHS guanfacine [Intuniv ER] 3 mg tablet extended release 24 hr 3 mg PO DAILY ondansetron 4 mg tablet,disintegrating 4 mg PO TID PRN (Reason: nausea and vomiting) Qty: 21 0RF metoprolol succinate 50 mg tablet extended release 24 hr 75 mg PO DAILY meloxicam 15 mg tablet 15 mg PO DAILY lamotrigine 25 mg tablet 75 mg PO DAILY gabapentin 300 mg capsule 300 mg PO TID metformin 500 mg tablet extended release 24 hr 1,000 mg PO BID lamotrigine 100 mg tablet 100 mg PO QHS aripiprazole 20 mg tablet 20 mg PO QHS fenofibrate nanocrystallized 48 mg tablet 48 mg PO DAILY Slow Release Iron 140 mg (45 mg iron) tablet extended release 140 mg PO DAILY Primary Care Provider: Miguelito Unger Referrals: Miguelito Unger MD [Primary Care Provider] - Print Language: Malay Disposition Disposition: Home, Self Care
[2024-05-21 13:09] LABS: Bedside Glucose 275 mg/dL (74-106)
[2024-05-21 13:27] VITALS: BP 143/71; PULSE 119; RESP 18; O2SAT 98
[2024-05-21 13:31] LABS: Absolute Lymphocyte Count 1.33 X10^3/uL (0.83-4.51); Absolute Neutrophil Count 12.4 X10^3/uL (2.0-7.7); Basophil# 0.06 X10^3/uL; Basophil% 0.4 % (0-1); Eosinophil# 0.21 X10^3/uL; Eosinophils% 1.4 % (0-5); Hematocrit 41.3 % (37-47); Hemoglobin 13.2 g/dL (12.0-15.0); Lymphocyte # 1.33 X10^3/ul (0.83-4.51); Lymphocyte % 9.1 % (19-41); Mean Corpuscular Hgb 26.2 pg (27.0-32.0); Mean Corpuscular Volume 81.9 fL (81-99); Mean Platelet Vol. 10.7 fl (6.2-12.0); Monocyte# 0.47 X10^3/uL; Monocyte% 3.2 % (0-10); NRBC Flagged by Analyzer 0 % (0-5); Neutrophil # 12.39 X10^3/uL (2.7-7.7); Neutrophil % 85.2 % (47-70); Platelet Count 371 K/mm3 (150-450); RBC Distribution Width CV 14.4 % (11.6-14.6); RBC Distribution Width SD 42.1 fl (35.1-43.9); Red Blood Count 5.04 M/mm3 (4.2-5.4); White Blood Count 14.6 K/mm3 (4.4-11.0)
[2024-05-21 13:35] LABS: Prothrombin Time (Protime)PT. 13.1 SECONDS (11.7-14.9)
[2024-05-21 13:36] LABS: Partial Thromboplast Time 25.2 Seconds (24.1-36.2)
[2024-05-21 13:45] LABS: Anion Gap 8 (5-15); BUN 10 mg/dL (7-18); BUN/Creat Ratio 15.9 RATIO (10-20); Calcium,Total 9.5 mg/dL (8.5-10.1); Chloride 101 mmol/L (98-107); Creatinine, Serum 0.63 mg/dL (0.55-1.02); EST Glomerular Filtration Rate 121 mL/min (>60); Est Glom Filt Rate - Afr Amer 147 mL/min (>60); Estimated Creatinine Clearance 254.34 ml/min; Glucose 251 mg/dL (74-106); Potassium 4.4 mmol/L (3.5-5.1); Sodium Level 135 mmol/L (136-145); Troponin-I HS < 3 pg/mL (3.0-54.0)
[2024-05-21 14:00] VITALS: BP 163/85; PULSE 118; RESP 16; O2SAT 99
--- NOTE | 2024-05-21 14:12 | ED.RN ---
This RN spoke with [facility] stroke network. [facility] unable to connect with stroke cart.
[2024-05-21 14:30] VITALS: BP 147/86; PULSE 128; RESP 20; O2SAT 98
--- NOTE | 2024-05-21 14:49 | RAD_ITS ---
INDICATION: Neuro deficit, acute, stroke suspected EXAMINATION/TECHNIQUE: X-RAY - XR Chest 1 View COMPARISON: March 26, 2023 FINDINGS: LINES/DEVICES: None. LUNGS: No consolidation, edema or effusion. No pneumothorax. MEDIASTINUM AND CARDIOVASCULAR STRUCTURES: Cardiac silhouette not enlarged. Central airways and mediastinal contour are unremarkable. BONES AND SOFT TISSUES: Unremarkable. RAD/Chest 1 View IMPRESSION: No radiographic evidence of acute cardiopulmonary disease. Electronically Signed: Grecia Ontiveros MD at 15:18 EST ,
[2024-05-21 15:29] LABS: Mucous, Urine 0 SEEN /hpf (<or=2+); Squamous Epithelial Cells - UA 0 SEEN /hpf (5-10)
[2024-05-21 15:36] LABS: Color, Urine Yellow (Yellow); Glucose, Dipstick 1000 mg/dl (Normal); Ketone-Dipstick Negative (Negative); Leukocyte Esterase-Dipstick 100 /ul (Negative); Nitrite-Dipstick Positive (Negative); Occult Blood-Urine 25 /ul (Negative); Protein-Dipstick 15 mg/dl (Negative); Urine Bilirubin Dipstick Negative (Negative); Urine Clarity Clear (Clear); Urine Urobilinogen Normal (Normal); Urine pH 6.5 (5.0 - 8.0)
[2024-05-21 15:45] LABS: Bacteria 3+ /hpf (None Seen); Red Blood Cells-Urine 0-5 SEEN /hpf (0-5); White Blood Cells 5-10 SEEN /hpf (0-5)
[2024-05-21] MEDS: Cephalexin 500 MG Capsule PO (16:24)
[2024-05-21 16:25] VITALS: BP 155/78; PULSE 110; RESP 16; TEMP 36.8; O2SAT 98
== END 2024-05-21 16:26 | disposition home or self-care (01) ==
PROVIDERS: Emergency Provider Emergency Medicine; PCP Family Medicine; Visit Provider Emergency Medicine
DX: F44.7 Conversion disorder with mixed symptom presentation (principal); F31.9 Bipolar disorder, unspecified; Z68.44 Body mass index [BMI] 60.0-69.9, adult; E11.65 Type 2 diabetes mellitus with hyperglycemia; Z79.4 Long term (current) use of insulin; E28.2 Polycystic ovarian syndrome; N39.0 Urinary tract infection, site not specified; D72.829 Elevated white blood cell count, unspecified; E66.9 Obesity, unspecified; E78.00 Pure hypercholesterolemia, unspecified; K21.9 Gastro-esophageal reflux disease without esophagitis; F41.9 Anxiety disorder, unspecified; F90.9 Attention-deficit hyperactivity disorder, unspecified type; M81.0 Age-related osteoporosis without current pathological fracture; J45.909 Unspecified asthma, uncomplicated; G47.30 Sleep apnea, unspecified; Z88.0 Allergy status to penicillin; Z88.1 Allergy status to other antibiotic agents; Z79.84 Long term (current) use of oral hypoglycemic drugs; Z79.899 Other long term (current) drug therapy
CPT/HCPCS: 70450; 70496; 70498; 71045; 80048; 81001; 82962; 84484; 85025; 85610; 85730; 87077; 87086; 87088; 87186; 93005; 99285; P9612; Q9967

== ENCOUNTER 2024-07-18 12:26 | Emergency (ER) | payer MEDICARE, MEDICAID, SELFPAY ==
[2024-07-18 12:28] VITALS: BP 139/78; PULSE 89; RESP 18; TEMP 36.9; O2SAT 99; BMI 67.6
--- NOTE | 2024-07-18 15:53 | EDS_ITS ---
HPI History of Present Illness Chief Complaint: Abscess Detail of Chief Complaint: Abscess Informant: patient Narrative Narrative: Patient presents the emergency department concern for an abscess to her left upper thigh. Patient states that she was seen by her physician assistant nurse manager in her primary care physician's office today and was told she needed to have an incision and drainage but they could not find a surgeon to see her today. She was referred to the emergency department. Patient denies fever chills or sweats. She first noticed the lump to that area about 4 5 days ago. Today she states that it seemed opened up and drained some foul-smelling debris [facility] Medical History Osteoporosis GERD (gastroesophageal reflux disease) CPAP (continuous positive airway pressure) dependence Sleep apnea Proteinuria due to type 2 diabetes mellitus Obesity Hypertriglyceridemia Diabetes Anxiety disorder, unspecified ADHD Bipolar 1 disorder Herniated disc Cancer Depression History of steroid therapy Walker as ambulation aid Arthritis Kidney stones Anemia Injury of back Injury of head and neck Dietary restriction Gastric reflux Non-smoker History of pain when walking History of echocardiogram Cardiology follow-up encounter History of irregular heartbeat [place]'s disease Cancer Diabetes Obesity GERD (gastroesophageal reflux disease) Ovarian cyst Asthma PCOS (polycystic ovarian syndrome) Home Medications ?Medication ?Instructions ?Recorded ?Last Taken ?Type cholecalciferol (vitamin D3) 125 125 mcg PO DAILY supp lement 05/17/19 01/24/21 08:00 History mcg (5,000 unit) capsule epinephrine 0.3 mg/0.3 mL 0.3 mg (0.3 mL) IM X1 PRN 01/30/21 08:00 Rx injection, auto-injector Anaphylaxis ##1 albuterol sulfate 2.5 mg/3 mL 2.5 mg inhalation PRN [place] N ASTHMA 01/25/21 01/30/21 08:00 History (0.083 %) solution for nebulization lisinopril 5 mg tablet 5 mg PO DAILY 01/25/2101/30 08:00 History pantoprazole 40 mg tablet,delayed 40 mg PO BID 2 Unknown History release glimepiride 2 mg tablet 4 mg PO DAILY 01/07/22 Unkno wn History atorvastatin 10 mg tablet 10 mg PO QHS 08/07/22 Unknow n History hydroxyzine HCl 50 mg tablet 50 mg PO BID PRN PRN Anxi ety 08/20/22 Unknown History hydroxyzine HCl 50 mg tablet 100 mg PO QHS 08/20/22 Un known History albuterol sulfate 90 mcg/actuation 2 puff inhalation P RN PRN ASTHMA 10/22/22 Unknown Rx aerosol inhaler #6.7 grams albuterol sulfate 2.5 mg/3 mL 2.5 mg (3 mL) inhalation Q6H PRN 03/26/23 Unknown Rx (0.083 %) solution for nebulization shortness of breat h or wheezing #75 mL guanfacine 3 mg tablet,extended 3 mg PO DAILY 01/05/24 Unknown History release 24 hr (Intuniv ER) insulin glargine-yfgn 100 unit/mL 70 unit subcut QHS 0 01/05/24 Unknown History (3 mL) subcutaneous pen insulin lispro 100 unit/mL 4 unit subcut .with meals 0 01/05/24 Unknown History subcutaneous pen norethindrone acetate 1 mg-ethinyl 1 tab PO DAILY 12/08 Unknown History estradiol 20 mcg tablet (Microgestin) prazosin 2 mg capsule 2 mg PO QHS 01/05/24 Unknown History trazodone 100 mg tablet 200 mg PO QHS 01/05/24 Unkno wn History ondansetron 4 mg disintegrating 4 mg PO TID PRN nausea and 01/06/24 Unknown Rx tablet vomiting #21 tabs furosemide 40 mg tablet (Lasix) 40 mg PO BID 5 days #1 0 tabs 03/13/24 Unknown Rx aripiprazole 20 mg tablet 20 mg PO QHS 05/21/24 Unknow n History cephalexin 500 mg capsule 500 mg PO Q6 #28 CAPSULES Unknown Rx fenofibrate nanocrystallized 48 mg 48 mg PO DAILY 05/08 09/29 Unknown History tablet ferrous sulfate 140 mg (45 mg 140 mg PO DAILY 05/21/24 Unknown History iron) tablet,extended release (Slow Release Iron) gabapentin 300 mg capsule 300 mg PO TID 05/21/24 Unkno wn History lamotrigine 100 mg tablet 100 mg PO QHS 05/21/24 Unkno wn History lamotrigine 25 mg tablet 75 mg PO DAILY 05/21/24 Unkn own History meloxicam 15 mg tablet 15 mg PO DAILY 05/21/24 Unkn own History metformin 500 mg tablet,extended 1,000 mg PO BID 05/21 Unknown History release 24 hr metoprolol succinate 50 mg 75 mg PO DAILY 05/21/24 Unk nown History tablet,extended release 24 hr clindamycin HCl 300 mg capsule 300 mg PO Q6H #40 CAPSU LES 07/18/24 Unknown Rx (Cleocin HCl) hydrocodone-acetaminophen 5-325mg 1 tab PO Q4H PRN PRN Pain 2 days 07/18/24 Unknown Rx 5mg-325mg #10 TABLETS Allergy/AdvReac Type Severity Reaction Status Date / Time nitrofurantoin (From Allergy Intermediate rash Verified 07/18/24 12:28 Macrobid) penicillin V potassium (From Allergy Mild Rash Verified 07/18/24 12:28 Pen-Vee K) adhesive tape (plastic tape) Allergy Rash Verified 07/18/24 12:28 brompheniramine maleate Allergy Shortness Verified 07/18/24 12:28 (From Dimetapp of breath (brompheniramine-PPA)) celery Allergy Swelling Verified 07/18/24 12:28 phenylpropanolamine HCl Allergy Shortness Verified 07/18/24 12:28 (From Dimetapp of breath (brompheniramine-PPA)) amoxicillin trihydrate (From AdvReac Intermediate Diarrhea Verified 07/18/24 12:28 Augmentin) potassium clavulanate (From AdvReac Intermediate Diarrhea Verified 07/18/24 12:28 Augmentin) dicyclomine HCl (From Bentyl) AdvReac Nausea/Vom/ Verified 07/18/24 12:28 Diarrhea fructose AdvReac Nausea/Vom/ Verified 07/18/24 12:28 Diarrhea sertraline (From Zoloft) AdvReac Other Verified 07/18/24 12:28 Family History Father Diabetes Mother Hypertension Grandmother Breast cancer 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 H/O partial adrenalectomy History of back surgery History of adrenal surgery H/O oophorectomy H/O endoscopy History of tonsillectomy and adenoidectomy H/O wisdom tooth extraction H/O ovarian cystectomy Hx of cholecystectomy Social History household members: family Smoking Status: Never smoker alcohol intake: current alcohol intake frequency: a few times a month substance use type: does not use seatbelt use: always do you feel safe at home: Yes ROS ROS ED Review of Systems ROS Unobtainable: other Constitutional Constitutional ED: Reports lethargy; Denies chills, fever(s), sweats or weight loss Eyes Eyes: Denies blurry vision, change in vision or diplopia ENT ENT ED: Denies rhinorrhea or sore throat Cardiovascular Cardiovascular: Denies chest pain, orthopnea or racing heartbeat Respiratory/Chest Respiratory/Chest: Denies cough, dyspnea, dyspnea on exertion, orthopnea or sputum Gastrointestinal Gastrointestinal: Denies abdominal pain, diarrhea, nausea or vomiting Genitourinary Genitourinary ED: Denies dysuria, hematuria or urinary frequency Musculoskeletal Musculoskeletal: Reports other Details: Abscess left upper thigh ; Denies arthralgias, back pain, myalgias or neck pain Integumentary Reports abscess; Denies Abrasions or rash Neurologic Neurologic: Denies headache(s) or weakness Psychiatric Psychiatric: Denies anxiety, depression or suicidal thoughts Endocrine Endocrinology: Denies polydipsia, polyphagia or polyuria Hematologic/Lymphatic Hematologic/Lymphatic: Denies easy bleeding, easy bruising or lymphadenopathy Allergic/Immunologic Allergic/Immunologic ED: Denies mouth swelling, tongue swelling or urticaria EXAM Physical Exam Const Vital Signs: 07/18/24 12:28 07/18/24 16:27 Temperature 98.4 F Temperature Source Oral Pulse Rate 89 99 Respiratory Rate 18 18 Blood Pressure 139/78 H 132/77 H Blood Pressure Mean 98 95 Pulse Ox 99 98 Oxygen Delivery Method Room Air Positive well nourished and well developed General Appearance ED: well developed and NAD HEENT Reports TM's clear and moist mucous membranes normocephalic and atraumatic; Negative for trauma or tenderness Tympanic Membrane ED: Yes TM's clear Eyes PERRL and EOMs intact bilaterally General Eye ED: Negative for pale conjunctiva or scleral icterus Neck no lymphadenopathy, supple and no JVD General: Negative for tenderness Chest Wall inspection of chest normal and palpation of chest normal Chest: Negative for tenderness Resp normal respiratory effort and clear to auscultation bilaterally Effort and Inspection: Negative for respiratory distress or pain with movement Auscultation: Negative for rhonchi, wheezes or diminished lung sounds Cardio regular rate, regular rhythm, S1 normal heart sound, S2 normal heart sound and no murmurs Peripheral Pulses: pulses 2+ throughout GI normal to inspection, nondistended, normoactive bowel sounds, soft to palpation, non-tender, non-distended and no masses Back/Spine no CVA tenderness and no thoracic nor lumbar tenderness Extremity Extremity Narrative: Left upper thigh near the crease of the posterior buttock crease there is a soft tissue swelling measuring approximately 5 cm in diameter the central skin is excoriated and fat is exposed without any current drainage. No significant cellulitic changes noted. General Extremety ED: Negative for edema General Extremity: Negative for edema Neuro oriented x3, CN's II-XII intact bilaterally, no sensory deficits noted and gait normal Sensorium / Orientation: awake, alert, oriented to person, oriented to place and oriented to time Motor Exam: strength 5/5 throughout and strength abnormal Psych mental status grossly normal Skin no rashes or lesions noted and no wounds MDM MDM MDM Narrative Medical decision making narrative: Patient presents with concern for soft tissue abscess to the left posterior thigh. Initially she was agreed to a small incision incision and drainage procedure as the skin was already broken in this area and wanted to see if any purulent debris could be expressed. Using an 11 blade I made a small incision however only small amount of blood was expressed with compression of the wound. We obtained a CT scan with IV contrast of the area of concern as she did have a significantly large indurated area and was unclear if this was deeper abscess versus just inflammatory change. On CT there are cellulitic changes but no discrete fluid collections. At this point we will start her on clindamycin given that she is allergic to penicillin and Bactrim. Clinically she looks well. Will refer to general surgeon on-call for follow-up. Advised to return if increasing pain, redness, swelling, fever, or condition should worsen anyway. Radiography Diagnostic Testing: Clinical Impression(s) from Imaging Studies Pelvis CT 07/18/24 16:02 IMPRESSION: Cutaneous thickening and subcutaneous stranding along the medial upper left thigh, likely cellulitis/developing abscess. No discrete fluid collection identified. One or more dose reduction techniques were used (e.g., Automated exposure control, adjustment of the mA and/or kV according to patient size, use of iterative reconstruction technique). Reading Location: [facility] Discharge Plan Triage Chief Complaint: Abscess ED Provider: Mega Posey Dx/Rx/DC Orders Clinical Impression: Cellulitis of left thigh Instructions: ED Cellulitis Prescriptions: New clindamycin HCl [Cleocin HCl] 300 mg capsule 300 mg PO Q6H Qty: 40 0RF hydrocodone-acetaminophen 5-325 mg tablet 1 tab PO Q4H PRN PRN (Reason: Pain) 2 Days Qty: 10 0RF No Action glimepiride 2 mg tablet 4 mg PO DAILY Patient Comments: TAKE 1 TABLET BY MOUTH ONCE DAILY WITH BREAKFAST cholecalciferol (vitamin D3) 125 MCG capsule 125 mcg PO DAILY epinephrine 0.3 MG syringe 0.3 mg IM X1 PRN (Reason: Anaphylaxis) Qty: 1 0RF albuterol sulfate 2.5 mg /3 mL (0.083 %) solution for nebulization 2.5 mg inhalation PRN PRN (Reason: ASTHMA) Patient Comments: INHALE 1 VIAL VIA NEBULIZER EVERY 6 HOURS NEEDED FOR SHORTNESS OF BREATH AND WHEEZING lisinopril 5 mg tablet 5 mg PO DAILY Patient Comments: TAKE 1 TABLET BY MOUTH ONCE DAILY pantoprazole 40 mg Tablet,Delayed Release (Dr/Ec) 40 mg PO BID atorvastatin 10 mg tablet 10 mg PO QHS Patient Comments: TAKE 1 TABLET BY MOUTH ONCE DAILY AT BEDTIME FOR CHOLESTEROL hydroxyzine HCl 50 mg Tablet 100 mg PO QHS hydroxyzine HCl 50 mg Tablet 50 mg PO BID PRN PRN (Reason: Anxiety) albuterol sulfate 90 mcg/actuation HFA aerosol inhaler 2 puff INHALATION PRN PRN (Reason: ASTHMA) Qty: 6.7 0RF albuterol sulfate 2.5 mg /3 mL (0.083 %) solution for nebulization 2.5 mg inhalation Q6H PRN (Reason: shortness of breath or wheezing) Qty: 75 0RF furosemide [Lasix] 40 mg tablet 40 mg PO BID 5 Days Qty: 10 0RF insulin glargine-yfgn 100 unit/mL (3 mL) insulin pen 70 unit subcut QHS insulin lispro 100 unit/mL insulin pen 4 unit subcut .with meals trazodone 100 mg tablet 200 mg PO QHS norethindrone ac-eth estradiol [Microgestin 06/27 (21)] 1-20 mg-mcg tablet 1 tab PO DAILY prazosin 2 mg capsule 2 mg PO QHS guanfacine [Intuniv ER] 3 mg tablet extended release 24 hr 3 mg PO DAILY ondansetron 4 mg tablet,disintegrating 4 mg PO TID PRN (Reason: nausea and vomiting) Qty: 21 0RF metoprolol succinate 50 mg tablet extended release 24 hr 75 mg PO DAILY meloxicam 15 mg tablet 15 mg PO DAILY lamotrigine 25 mg tablet 75 mg PO DAILY gabapentin 300 mg capsule 300 mg PO TID metformin 500 mg tablet extended release 24 hr 1,000 mg PO BID lamotrigine 100 mg tablet 100 mg PO QHS aripiprazole 20 mg tablet 20 mg PO QHS fenofibrate nanocrystallized 48 mg tablet 48 mg PO DAILY Slow Release Iron 140 mg (45 mg iron) tablet extended release 140 mg PO DAILY cephalexin 500 mg capsule 500 mg PO Q6 Qty: 28 0RF Primary Care Provider: Miguelito Unger Referrals: Miguelito Unger MD [Primary Care Provider] - Wilfred Grover MD [Non-Staff] - 5-7 Days Print Language: Bermudian Disposition Disposition: Home, Self Care Discharge Date/Time: 07/18/24 18:11
--- NOTE | 2024-07-18 16:02 | CT_ITS ---
PROCEDURE: PELVIS WITH IV CONTRAST REASON FOR EXAM: 28-year-old female, abscess near left inner thigh. TECHNIQUE: Pelvic CT with intravenous contrast. IV CONTRAST: [id number] COMPARISON: None. FINDINGS: Visualized abdominal structures: The visualized bowel loops are normal in caliber. Normal appendix. No visualized ascites or free air. Visualized pelvic structures: The urinary bladder is moderately distended and unremarkable. Unremarkable uterus and physiologic right corpus luteum. No pelvic lymphadenopathy. Osseous structures: The visualized osseous structures are unremarkable. No acute fracture. Soft tissues: Mild cutaneous thickening with subcutaneous stranding along the upper medial left thigh, measuring approximately 2.6 cm AP (series 2, image 89). No discrete fluid collection identified. CT/Pelvis WITH IV Contrast IMPRESSION: Cutaneous thickening and subcutaneous stranding along the medial upper left thi gh, likely cellulitis/developing abscess. No discrete fluid collection identified. One or more dose reduction techniques were used (e.g., Automated exposure contr ol, adjustment of the mA and/or kV according to patient size, use of iterative reconstruction technique). Reading Location: [id number]
[2024-07-18] MEDS: Lidocaine 1% (20 ml mdv) 20 ML Vial 5 ML INFILT (16:06)
[2024-07-18 16:27] VITALS: BP 132/77; PULSE 99; RESP 18; O2SAT 98
--- NOTE | 2024-07-18 18:05 | CM.ED ---
Social Work Reason for visit: ED care plan Patient in ER due to abscess on leg. Patient stated that she has established doctors including PCP, a diabetic care team, oncology that is also her OBGYN, psychiatry and counseling. Patient states she feels that she does not have any needs that are not being addressed at this time. Patient expresses understanding of when to utilize physicians versus ER. No further needs identified. Dedra Restrepo, [employer]IC[employer], SQL DATABASE DEVELOPER
[2024-07-18] MEDS: Clindamycin HCl 150 MG Capsule 300 MG PO (18:07)
[2024-07-18 18:11] VITALS: BP 128/78; PULSE 94; RESP 16; TEMP 36.3; O2SAT 99
== END 2024-07-18 18:11 | disposition home or self-care (01) ==
PROVIDERS: Emergency Provider Emergency Medicine; PCP Family Medicine; Visit Provider Emergency Medicine
DX: L02.416 Cutaneous abscess of left lower limb (principal); F31.9 Bipolar disorder, unspecified; E11.9 Type 2 diabetes mellitus without complications; Z79.4 Long term (current) use of insulin; L03.116 Cellulitis of left lower limb; K21.9 Gastro-esophageal reflux disease without esophagitis; E28.2 Polycystic ovarian syndrome; E66.9 Obesity, unspecified; F41.9 Anxiety disorder, unspecified; F90.9 Attention-deficit hyperactivity disorder, unspecified type; D64.9 Anemia, unspecified; M81.0 Age-related osteoporosis without current pathological fracture; G47.30 Sleep apnea, unspecified; J45.909 Unspecified asthma, uncomplicated; Z88.0 Allergy status to penicillin; Z88.1 Allergy status to other antibiotic agents; Z79.84 Long term (current) use of oral hypoglycemic drugs; Z79.899 Other long term (current) drug therapy
CPT/HCPCS: 10060; 72193; 99283; Q9967

== ENCOUNTER 2024-08-10 09:20 | Outpatient (RCR) | payer MEDICARE, MEDICAID, SELFPAY ==
[2024-08-10 09:26] VITALS: BP 156/99; PULSE 109; RESP 22; TEMP 35.9; BMI 66.3
--- NOTE | 2024-08-10 14:56 | WC ---
PHOTO 08/10/24 LEFT INNER THIGH
--- NOTE | 2024-08-13 20:44 | PCM.WC.HP ---
History of Present Illness Date of Service: 08/10/24 Chief Complaint: Abscess on the left upper posterior thigh History of Wound: This is a 29-year-old morbidly obese, diabetic female with multiple pre-existing medical conditions. She presented to the [facility] Emergency Department on July 18, 2024, with an abscess on her left posterior upper thigh. Evaluation revealed that the abscess had drained spontaneously. The patient was prescribed clindamycin 300 mg p.o. every 6 hours for a total of 10 days. She was referred to the [facility] for follow-up care. A CT scan done during the patient's Emergency Department visit revealed cutaneous thickening along the medial upper left thigh with no discrete fluid collection identified. The patient subsequently was evaluated in an urgent care facility, and was placed on a course of oral cephalexin. The patient's most recent hemoglobin A1c was 10.6. She is currently being treated for tinea cruris by a local surgeon. With respect to the patient's morbid obesity, she is being primed for eventual bariatric surgery. 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 Abscess of left thigh Morbid obesity with BMI of 60.0-69.9, adult Osteoporosis GERD (gastroesophageal reflux disease) CPAP (continuous positive airway pressure) dependence Sleep apnea Proteinuria due to type 2 diabetes mellitus Obesity Hypertriglyceridemia Diabetes Anxiety disorder, unspecified ADHD Bipolar 1 disorder Herniated disc Cancer Depression History of steroid therapy Walker as ambulation aid Arthritis Kidney stones Anemia Injury of back Injury of head and neck Dietary restriction Gastric reflux Non-smoker History of pain when walking History of echocardiogram Cardiology follow-up encounter History of irregular heartbeat Purlear's disease Cancer Diabetes Obesity GERD (gastroesophageal reflux disease) Ovarian cyst Asthma PCOS (polycystic ovarian syndrome) Home Medications ?Medication ?Instructions ?Recorded ?Last Taken ?Type cholecalciferol (vitamin D3) 125 125 mcg PO DAILY supplement 05/17/19 01/24/21 08:00 History mcg (5,000 unit) capsule epinephrine 0.3 mg/0.3 mL 0.3 mg (0.3 mL) IM X1 PRN 05/14/20 01/30/21 08:00 Rx injection, auto-injector Anaphylaxis ##1 albuterol sulfate 2.5 mg/3 mL 2.5 mg inhalation PRN PRN ASTHMA 01/25/21 01/30/21 08:00 History (0.083 %) solution for nebulization lisinopril 5 mg tablet 5 mg PO DAILY 01/25/21 01/30/21 08:00 History pantoprazole 40 mg tablet,delayed 40 mg PO BID 07/31/21 Unknown History release atorvastatin 10 mg tablet 10 mg PO QHS 08/07/22 Unknown History hydroxyzine HCl 50 mg tablet 50 mg PO BID PRN PRN Anxiety 08/20/22 Unknown History hydroxyzine HCl 50 mg tablet 100 mg PO QHS 08/20/22 Unknown History albuterol sulfate 90 mcg/actuation 2 puff inhalation PRN PRN ASTHMA 10/22/22 Unknown Rx aerosol inhaler #6.7 grams albuterol sulfate 2.5 mg/3 mL 2.5 mg (3 mL) inhalation Q6H PRN 03/26/23 Unknown Rx (0.083 %) solution for nebulization shortness of breath or wheezing #75 mL guanfacine 3 mg tablet,extended 3 mg PO DAILY 01/05/24 Unknown History release 24 hr (Intuniv ER) insulin glargine-yfgn 100 unit/mL 70 unit subcut QHS 01/05/24 Unknown History (3 mL) subcutaneous pen insulin lispro 100 unit/mL 4 unit subcut .with meals 01/05/24 Unknown History subcutaneous pen norethindrone acetate 1 mg-ethinyl 1 tab PO DAILY 01/05/24 Unknown History estradiol 20 mcg tablet (Microgestin) prazosin 2 mg capsule 2 mg PO QHS 01/05/24 Unknown History trazodone 100 mg tablet 200 mg PO QHS 01/05/24 Unknown History ondansetron 4 mg disintegrating 4 mg PO TID PRN nausea and 01/06/24 Unknown Rx tablet vomiting #21 tabs aripiprazole 20 mg tablet 20 mg PO QHS 05/21/24 Unknown History cephalexin 500 mg capsule 500 mg PO Q6 #28 CAPSULES 05/21/24 Unknown Rx fenofibrate nanocrystallized 48 mg 48 mg PO DAILY 05/21/24 Unknown History tablet ferrous sulfate 140 mg (45 mg 140 mg PO DAILY 05/21/24 Unknown History iron) tablet,extended release (Slow Release Iron) gabapentin 300 mg capsule 300 mg PO TID 05/21/24 Unknown History lamotrigine 100 mg tablet 100 mg PO QHS 05/21/24 Unknown History lamotrigine 25 mg tablet 75 mg PO DAILY 05/21/24 Unknown History meloxicam 15 mg tablet 15 mg PO DAILY 05/21/24 Unknown History metformin 500 mg tablet,extended 1,000 mg PO BID 05/21/24 Unknown History release 24 hr metoprolol succinate 50 mg 75 mg PO DAILY 05/21/24 Unknown History tablet,extended release 24 hr hydrocodone-acetaminophen 5-325mg 1 tab PO Q4H PRN PRN Pain 2 days 07/18/24 Unknown Rx 5mg-325mg #10 TABLETS Rexuti 08/10/24 Unknown History Allergy/AdvReac Type Severity Reaction Status Date / Time nitrofurantoin (From Allergy Intermediate rash Verified 08/10/24 09:40 Macrobid) penicillin V potassium (From Allergy Mild Rash Verified 08/10/24 09:40 Pen-Vee K) adhesive tape (plastic tape) Allergy Rash Verified 08/10/24 09:40 brompheniramine maleate Allergy Shortness Verified 08/10/24 09:40 (From Dimetapp of breath (brompheniramine-PPA)) celery Allergy Swelling Verified 08/10/24 09:40 phenylpropanolamine HCl Allergy Shortness Verified 08/10/24 09:40 (From Dimetapp of breath (brompheniramine-PPA)) amoxicillin trihydrate (From AdvReac Intermediate Diarrhea Verified 08/10/24 09:40 Augmentin) potassium clavulanate (From AdvReac Intermediate Diarrhea Verified 08/10/24 09:40 Augmentin) dicyclomine HCl (From Bentyl) AdvReac Nausea/Vom/ Verified 08/10/24 09:40 Diarrhea fructose AdvReac Nausea/Vom/ Verified 08/10/24 09:40 Diarrhea sertraline (From Zoloft) AdvReac Other Verified 08/10/24 09:40 Family History Father Diabetes Mother Hypertension Grandmother Breast cancer 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 H/O partial adrenalectomy History of back surgery History of adrenal surgery H/O oophorectomy H/O endoscopy History of tonsillectomy and adenoidectomy H/O wisdom tooth extraction H/O ovarian cystectomy Hx of cholecystectomy Social History household members: family Smoking Status: Never smoker alcohol intake: current alcohol intake frequency: a few times a month substance use type: does not use seatbelt use: always do you feel safe at home: Yes Vital Signs Vital Signs Vital Signs: Weight Weight: 436 lb 3.447 oz Body Mass Index (BMI) 66.3 Debridement Note Debridement Note Post-Debridement Measurements and Additional Note: Post-Debridement Measurements/Treatment WC - Nurse 1 - General Ulcer Assessment Start: 08/10/24 09:25 Freq: Status: Active Protocol: TIGIST Activity Type Activity Date Activity User E-sign Co-sign Detail Recorded Client Recorded Date Recorded By Document 08/10/24 09:26 DL [id number] 08/10/24 09:37 DL 08/10/24 09:26 WC - Today's Visit Information Type of service Initial Visit Arrival Mode Ambulatory Height and Weight Height 5 ft 8 in Weight 436 lb 3.447 oz Weight in Pounds 436.2 lbs Body Mass Index (BMI) 66.3 BMI Classification Obese Vital Signs Temperature (97.8 F-99.1 F) 96.7 F L Temperature Source Temporal Pulse Rate (60-100) 109 H Pulse Location Monitor Respiratory Rate (12-18) 22 H Respiratory rate source Observation Blood Pressure (90/60-120/80) 156/99 H Blood Pressure Mean 118 Source Monitor Pain Scale: 0-10 Numeric Is Patient Pain Free? Yes Communication Assessment Preferred language Mauritian Tooth Clerk Required No Able to Read Yes Able to Write Yes Right Hearing Abillity Normal Left Hearing Abillity Normal Visual Assistive Devices Glasses Teaching Assessment Preferences Verbal,Written, Demonstration Barriers to Learning None Readiness To Learn Good Willingness to Engage in Self Management Med Activies Readiness to Engage in Self Management Med Activities Anxiety Level Calm Cooperation Cooperative Perception Coherent Interest in Health Problem Asks Questions Education Importance Acknowledges Need Does Patient Smoke tobacco or other No substances Smoking Status Never smoker Is Patient Diabetic Yes Functional Assessment Recent Decline in Ability to Perform Denies Any Declines Culture/Muslim/Transplant Surgeon Cultural/Muslim Needs that may affect No Treatment Plan Would you allow our hospital information technology professor to No meet you for the purpose of spiritual/ emotional support? Transplant Surgeon to contact place of sikh No Teaching: Wound Center *Welcome to the Wound Center -Person Taught Patient WC - Nurse 1 - General Ulcer Measurement Start: 08/10/24 09:25 Freq: Status: Active Protocol: Activity Type Activity Date Activity User E-sign Co-sign Detail Recorded Client Recorded Date Recorded By Document 08/10/24 09:26 DL [id number] 08/10/24 09:37 DL 08/10/24 09:26 Wound Center Nurse 1 #1 L Inner Thigh -Current Size (cm) - Length 0.5 -Current Size (cm) - Width 1.1 -Current Size (cm) - Depth 0.1 -Total Square Cm 0.55 -Photo Taken Yes -Classification - Thickness Full Thickness without Exposed Support Structure -Exudate Amt Medium -Exudate Type Serosanguineous -Wound Margin Distinct, Outline Attached -Granulation Amt None Present (0 %) -Slough/Fibrin Yes -Necrosis Amt Large (67-100%) -Necrotic Tissue Type Adherent Slough -Structure Exposed N/A -Texture (Rula-wound Skin Appearance) Scarring -Moisture (Rula-wound Skin Appearance) No Abnormality -Color (Rula-wound Skin Appearance) No Abnormality -Temperature (Rula-wound Skin No Abnormality Appearance) (Pt Warm) -Tenderness on Palpation (Rula-wound No Skin Appearance) -Ulcer Cleansing Soap and Water -Foul Odor after Cleansing No -Anesthetic Used 5% Lidocaine Gel CATHERINE - Nurse 2 - General Ulcer CM Notes Start: 08/10/24 09:25 Freq: Status: Active Protocol: Activity Type Activity Date Activity User E-sign Co-sign Detail Recorded Client Recorded Date Recorded By Document 08/10/24 10:00 [email or web address] [id number] 08/10/24 10:01 DS 08/10/24 10:00 Wound Center Nurse 2 -Time 09:55 -Correct Patient Yes -Correct Side, Site, Position Yes -Correct Procedure Yes -Procedure Performed Yes -Type of Procedure Debridement -Clinical Debridement Subcutaneous -Tissue Removed Subcutaneous -Post Debridement (cm) - Length 0.5 -Post Debridement (cm) - Width 1.5 -Post Debridement (cm) - Depth 0.1 -Total Square (Post) (cm) 0.75 -Area of Debridement (cm) - Length 0.5 -Area of Debridement (cm) - Width 1.5 -Total Square (Area) (cm) 0.75 -Tunneling No -Undermining/Tunneling No -Circular Undermining No -Wound/Ulcer Outcome Not Healed -Ulcer Cleansing Rinsed/ Irrigated with Saline -Foul Odor after Cleansing No -Bioengineered Tissue No -Bleeding Controlled with Pressure -Treatment Response Procedure Tolerated Well -Offloading No -Debridement - Subq, 1st 20sq cm Yes Pain Scale: 0-10 Numeric Is Patient Pain Free? Yes WC - Nurse 3 - General Ulcer D/C NN Start: 08/10/24 09:25 Freq: Status: Active Protocol: Activity Type Activity Date Activity User E-sign Co-sign Detail Recorded Client Recorded Date Recorded By Document 08/10/24 10:18 DL [id number] 08/10/24 10:19 DL 08/10/24 10:18 Wound Care Center Nurse 3 #1 L Inner Thigh -Ulcer Cleansing Rinsed/ Irrigated with Saline -Primary Dressing Applied C Hydrogel, Silicone Border Foam 4x4 -Hydrogel 1 -Silicone Border Foam 4x4 1 Treatment Response Procedure Tolerated Well Pain Scale: 0-10 Numeric Is Patient Pain Free? 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: CODE(S): L97.102 - Non-pressure chronic ulcer of unspecified thigh with fat layer exposed QUALIFIERS: Laterality: left Qualified Code(s): L97.122 - Non-pressure chronic ulcer of left thigh with fat layer exposed (2) Abscess of left thigh: CODE(S): L02.416 - Cutaneous abscess of left lower limb (3) Morbid obesity with BMI of 60.0-69.9, adult: CODE(S): E66.01 - Morbid (severe) obesity due to excess calories; Z68.44 - Body mass index [BMI] 60.0-69.9, adult (4) Diabetes: CODE(S): E11.9 - Type 2 diabetes mellitus without complications QUALIFIERS: Diabetes mellitus type: type 2 Diabetes mellitus intermediate manager insulin use: without mcfp use Diabetes mellitus complication status: with hyperglycemia Qualified Code(s): E11.65 - Type 2 diabetes mellitus with hyperglycemia (5) Chronic low back pain with sciatica: CODE(S): M54.40 - Lumbago with sciatica, unspecified side; G89.29 - Other chronic pain (6) Lumbar back pain with radiculopathy affecting lower extremity: CODE(S): M54.16 - Radiculopathy, lumbar region (7) RAD (reactive airway disease): CODE(S): J45.909 - Unspecified asthma, uncomplicated (8) Lumbar degenerative disc disease: CODE(S): M51.36 - Other intervertebral disc degeneration, lumbar region (9) 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 (10) History of ovarian cyst: CODE(S): Z87.42 - Personal history of other diseases of the female genital tract (11) History of polycystic ovarian syndrome: CODE(S): Z87.42 - Personal history of other diseases of the female genital tract (12) Lumbar radiculopathy: CODE(S): M54.16 - Radiculopathy, lumbar region (13) H/O partial adrenalectomy: CODE(S): E89.6 - Postprocedural adrenocortical (-medullary) hypofunction (14) Hypertriglyceridemia: CODE(S): E78.1 - Pure hyperglyceridemia (15) Osteoporosis: CODE(S): M81.0 - Age-related osteoporosis without current pathological fracture (16) GERD (gastroesophageal reflux disease): CODE(S): K21.9 - Gastro-esophageal reflux disease without esophagitis (17) CPAP (continuous positive airway pressure) dependence: CODE(S): Z99.89 - Dependence on other enabling machines and devices (18) Sleep apnea: CODE(S): G47.30 - Sleep apnea, unspecified (19) ADHD: CODE(S): F90.9 - Attention-deficit hyperactivity disorder, unspecified type (20) Bipolar 1 disorder: CODE(S): F31.9 - Bipolar disorder, unspecified (21) Cancer: CODE(S): C80.1 - Malignant (primary) neoplasm, unspecified (22) Arthritis: CODE(S): M19.90 - Unspecified osteoarthritis, unspecified site (23) History of irregular heartbeat: CODE(S): Z86.79 - Personal history of other diseases of the circulatory system (24) PCOS (polycystic ovarian syndrome): CODE(S): E28.2 - Polycystic ovarian syndrome (25) H/O oophorectomy: (26) History of tonsillectomy and adenoidectomy: CODE(S): Z98.890 - Other specified postprocedural states (27) H/O wisdom tooth extraction: CODE(S): K08.409 - Partial loss of teeth, unspecified cause, unspecified class (28) H/O ovarian cystectomy: CODE(S): Z98.890 - Other specified postprocedural states; Z87.42 - Personal history of other diseases of the female genital tract (29) Hx of cholecystectomy: CODE(S): Z90.49 - Acquired absence of other specified parts of digestive tract
--- NOTE | 2024-08-13 21:00 | PCM.WC.HP ---
History of Present Illness Date of Service: 08/10/24 Chief Complaint: Abscess on the left upper posterior thigh History of Wound: This is a 29-year-old morbidly obese, diabetic female with multiple pre-existing medical conditions. She presented to the [facility] Emergency Department on July 18, 2024, with an abscess on her left posterior upper thigh. Evaluation revealed that the abscess had drained spontaneously. The patient was prescribed clindamycin 300 mg p.o. every 6 hours for a total of 10 days. She was referred to the [facility] for follow-up care. A CT scan done during the patient's Emergency Department visit revealed cutaneous thickening along the medial upper left thigh with no discrete fluid collection identified. The patient subsequently was evaluated in an urgent care facility, and was placed on a course of oral cephalexin. The patient's most recent hemoglobin A1c was 10.6. She is currently being treated for tinea cruris by a local surgeon. With respect to the patient's morbid obesity, she is being primed for eventual bariatric surgery. 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 Abscess of left thigh Morbid obesity with BMI of 60.0-69.9, adult Osteoporosis GERD (gastroesophageal reflux disease) CPAP (continuous positive airway pressure) dependence Sleep apnea Proteinuria due to type 2 diabetes mellitus Obesity Hypertriglyceridemia Diabetes Anxiety disorder, unspecified ADHD Bipolar 1 disorder Herniated disc Cancer Depression History of steroid therapy Walker as ambulation aid Arthritis Kidney stones Anemia Injury of back Injury of head and neck Dietary restriction Gastric reflux Non-smoker History of pain when walking History of echocardiogram Cardiology follow-up encounter History of irregular heartbeat Evan[place]'s disease Cancer Diabetes Obesity GERD (gastroesophageal reflux disease) Ovarian cyst Asthma PCOS (polycystic ovarian syndrome) Home Medications ?Medication ?Instructions ?Recorded ?Last Taken ?Type cholecalciferol (vitamin D3) 125 125 mcg PO DAILY supplement 05/17/19 01/24/21 08:00 History mcg (5,000 unit) capsule epinephrine 0.3 mg/0.3 mL 0.3 mg (0.3 mL) IM X1 PRN 05/14/20 01/30/21 08:00 Rx injection, auto-injector Anaphylaxis ##1 albuterol sulfate 2.5 mg/3 mL 2.5 mg inhalation PRN PRN ASTHMA 01/25/21 01/30/21 08:00 History (0.083 %) solution for nebulization lisinopril 5 mg tablet 5 mg PO DAILY 01/25/21 01/30/21 08:00 History pantoprazole 40 mg tablet,delayed 40 mg PO BID 07/31/21 Unknown History release atorvastatin 10 mg tablet 10 mg PO QHS 08/07/22 Unknown History hydroxyzine HCl 50 mg tablet 50 mg PO BID PRN PRN Anxiety 08/20/22 Unknown History hydroxyzine HCl 50 mg tablet 100 mg PO QHS 08/20/22 Unknown History albuterol sulfate 90 mcg/actuation 2 puff inhalation PRN PRN ASTHMA 10/22/22 Unknown Rx aerosol inhaler #6.7 grams albuterol sulfate 2.5 mg/3 mL 2.5 mg (3 mL) inhalation Q6H PRN 03/26/23 Unknown Rx (0.083 %) solution for nebulization shortness of breath or wheezing #75 mL guanfacine 3 mg tablet,extended 3 mg PO DAILY 01/05/24 Unknown History release 24 hr (Intuniv ER) insulin glargine-yfgn 100 unit/mL 70 unit subcut QHS 01/05/24 Unknown History (3 mL) subcutaneous pen insulin lispro 100 unit/mL 4 unit subcut .with meals 01/05/24 Unknown History subcutaneous pen norethindrone acetate 1 mg-ethinyl 1 tab PO DAILY 01/05/24 Unknown History estradiol 20 mcg tablet (Microgestin) prazosin 2 mg capsule 2 mg PO QHS 01/05/24 Unknown History trazodone 100 mg tablet 200 mg PO QHS 01/05/24 Unknown History ondansetron 4 mg disintegrating 4 mg PO TID PRN nausea and 01/06/24 Unknown Rx tablet vomiting #21 tabs aripiprazole 20 mg tablet 20 mg PO QHS 05/21/24 Unknown History cephalexin 500 mg capsule 500 mg PO Q6 #28 CAPSULES 05/21/24 Unknown Rx fenofibrate nanocrystallized 48 mg 48 mg PO DAILY 05/21/24 Unknown History tablet ferrous sulfate 140 mg (45 mg 140 mg PO DAILY 05/21/24 Unknown History iron) tablet,extended release (Slow Release Iron) gabapentin 300 mg capsule 300 mg PO TID 05/21/24 Unknown History lamotrigine 100 mg tablet 100 mg PO QHS 05/21/24 Unknown History lamotrigine 25 mg tablet 75 mg PO DAILY 05/21/24 Unknown History meloxicam 15 mg tablet 15 mg PO DAILY 05/21/24 Unknown History metformin 500 mg tablet,extended 1,000 mg PO BID 05/21/24 Unknown History release 24 hr metoprolol succinate 50 mg 75 mg PO DAILY 05/21/24 Unknown History tablet,extended release 24 hr hydrocodone-acetaminophen 5-325mg 1 tab PO Q4H PRN PRN Pain 2 days 07/18/24 Unknown Rx 5mg-325mg #10 TABLETS Rexuti 08/10/24 Unknown History Allergy/AdvReac Type Severity Reaction Status Date / Time nitrofurantoin (From Allergy Intermediate rash Verified 08/10/24 09:40 Macrobid) penicillin V potassium (From Allergy Mild Rash Verified 08/10/24 09:40 Pen-Vee K) adhesive tape (plastic tape) Allergy Rash Verified 08/10/24 09:40 brompheniramine maleate Allergy Shortness Verified 08/10/24 09:40 (From Dimetapp of breath (brompheniramine-PPA)) celery Allergy Swelling Verified 08/10/24 09:40 phenylpropanolamine HCl Allergy Shortness Verified 08/10/24 09:40 (From Dimetapp of breath (brompheniramine-PPA)) amoxicillin trihydrate (From AdvReac Intermediate Diarrhea Verified 08/10/24 09:40 Augmentin) potassium clavulanate (From AdvReac Intermediate Diarrhea Verified 08/10/24 09:40 Augmentin) dicyclomine HCl (From Bentyl) AdvReac Nausea/Vom/ Verified 08/10/24 09:40 Diarrhea fructose AdvReac Nausea/Vom/ Verified 08/10/24 09:40 Diarrhea sertraline (From Zoloft) AdvReac Other Verified 08/10/24 09:40 Family History Father Diabetes Mother Hypertension Grandmother Breast cancer 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 H/O partial adrenalectomy History of back surgery History of adrenal surgery H/O oophorectomy H/O endoscopy History of tonsillectomy and adenoidectomy H/O wisdom tooth extraction H/O ovarian cystectomy Hx of cholecystectomy Social History household members: family Smoking Status: Never smoker alcohol intake: current alcohol intake frequency: a few times a month substance use type: does not use seatbelt use: always do you feel safe at home: Yes Vital Signs Vital Signs Vital Signs: Weight Weight: 436 lb 3.447 oz Body Mass Index (BMI) 66.3 Physical Exam Const alert, oriented x3, no apparent distress and well nourished Constitutional Narrative: The patient is morbidly obese, with a BMI of 66.3. General Appearance: cooperative, comfortable and well developed Orientation / Consciousness: awake, oriented to person, oriented to place and oriented to time Exam Limitations: no limitations HEENT normocephalic and head/scalp atraumatic Head and Scalp: normal to inspection, normocephalic and atraumatic Face and Sinus: normal facial exam Nose: external nose normal External Ear: external ears normal Eyes EOMs intact bilaterally General Eye: normal appearance of both eyes Neck full ROM Resp normal respiratory effort, normal air movement, no retractions and no use of accessory muscles Effort and Inspection: able to speak in complete sentences Extremity no calf tenderness General Extremity: Negative for clubbing or cyanosis Skin Wound Narrative: An open ulceration is noted on the patient's left upper posterior thigh. There is no sign of infection or cellulitis. Dimensions are documented elsewhere. The ulceration appears to be full-thickness in nature, through all layers of the dermis and into the subcutaneous tissues. There is a moderate amount of bioburden and nonviable tissue. Ulcer margins are moderately beveled. Neuro oriented x3, CN's II-XII intact bilaterally, moves all extremities, no focal motor deficits and no sensory deficits noted Sensorium / Orientation: awake, alert, oriented to person, oriented to place and oriented to time Cranial Nerves: CN normal except as noted Speech: speech normal Psych Appearance: grossly normal and appropriate Attitude: calm Activity / Motor Behavior: appropriate eye contact Speech: normal speech Mood & Affect: euthymic mood Thought Process: normal thought process Thought Content: normal thought content Attention / Concentration: attention grossly intact Debridement Note Debridement Note Wound debrided: Ulceration on the left upper posterior thigh Laterality: Left Type of Debridement: Excisional debridement Anesthesia Used: 5% Lidocaine Gel Depth: Down to and including healthy tissue and in the subcutaneous layer Percentage of wound debrided: 100 Instrument Used: 3mm curette Tissue Removed: Bioburden and nonviable tissue Severity: Fat Layer Exposed Amount of bleeding with debridement: Mild Bleeding Controlled with: Compression and gauze Patient tolerated procedure: Patient tolerated procedure well Post-Debridement Measurements and Additional Note: Post-Debridement Measurements/Treatment CATHERINE - Nurse 1 - General Ulcer Assessment Start: 08/10/24 09:25 Freq: Status: Active Protocol: TIGIST Activity Type Activity Date Activity User E-sign Co-sign Detail Recorded Client Recorded Date Recorded By Document 08/10/24 09:26 DL [id number] 08/10/24 09:37 DL 08/10/24 09:26 CATHERINE - Today's Visit Information Type of service Initial Visit Arrival Mode Ambulatory Height and Weight Height 5 ft 8 in Weight 436 lb 3.447 oz Weight in Pounds 436.2 lbs Body Mass Index (BMI) 66.3 BMI Classification Obese Vital Signs Temperature (97.8 F-99.1 F) 96.7 F L Temperature Source Temporal Pulse Rate (60-100) 109 H Pulse Location Monitor Respiratory Rate (12-18) 22 H Respiratory rate source Observation Blood Pressure (90/60-120/80) 156/99 H Blood Pressure Mean 118 Source Monitor Pain Scale: 0-10 Numeric Is Patient Pain Free? Yes Communication Assessment Preferred language [place] [employer] Required No Able to Read Yes Able to Write Yes Right Hearing Abillity Normal Left Hearing Abillity Normal Visual Assistive Devices Glasses Teaching Assessment Preferences Verbal,Written, Demonstration Barriers to Learning None Readiness To Learn Good Willingness to Engage in Self Management Med Activies Readiness to Engage in Self Management Med Activities Anxiety Level Calm Cooperation Cooperative Perception Coherent Interest in Health Problem Asks Questions Education Importance Acknowledges Need Does Patient Smoke tobacco or other No substances Smoking Status Never smoker Is Patient Diabetic Yes Functional Assessment Recent Decline in Ability to Perform Denies Any Declines Culture/Anglican/Water Resource Consultant Cultural/Anglican Needs that may affect No Treatment Plan Would you allow our hospital certified indoor environmentalist to No meet you for the purpose of spiritual/ emotional support? Water Resource Consultant to contact place of [facility] No Teaching: Wound Center *Welcome to the Wound Center -Person Taught Patient CATHERINE Berry Nurse 1 - General Ulcer Measurement Start: 08/10/24 09:25 Freq: Status: Active Protocol: Activity Type Activity Date Activity User E-sign Co-sign Detail Recorded Client Recorded Date Recorded By Document 08/10/24 09:26 DL [id number] 08/10/24 09:37 DL 08/10/24 09:26 Wound Center Nurse 1 #1 L Inner Thigh -Current Size (cm) - Length 0.5 -Current Size (cm) - Width 1.1 -Current Size (cm) - Depth 0.1 -Total Square Cm 0.55 -Photo Taken Yes -Classification - Thickness Full Thickness without Exposed Support Structure -Exudate Amt Medium -Exudate Type Serosanguineous -Wound Margin Distinct, Outline Attached -Granulation Amt None Present (0 %) -Slough/Fibrin Yes -Necrosis Amt Large (67-100%) -Necrotic Tissue Type Adherent Slough -Structure Exposed N/A -Texture (Rula-wound Skin Appearance) Scarring -Moisture (Rula-wound Skin Appearance) No Abnormality -Color (Rula-wound Skin Appearance) No Abnormality -Temperature (Rula-wound Skin No Abnormality Appearance) (Pt Warm) -Tenderness on Palpation (Rula-wound No Skin Appearance) -Ulcer Cleansing Soap and Water -Foul Odor after Cleansing No -Anesthetic Used 5% Lidocaine Gel WC - Nurse 2 - General Ulcer CM Notes Start: 08/10/24 09:25 Freq: Status: Active Protocol: Activity Type Activity Date Activity User E-sign Co-sign Detail Recorded Client Recorded Date Recorded By Document 08/10/24 10:00 DS [id number] 08/10/24 10:01 DS 08/10/24 10:00 Wound Center Nurse 2 -Time 09:55 -Correct Patient Yes -Correct Side, Site, Position Yes -Correct Procedure Yes -Procedure Performed Yes -Type of Procedure Debridement -Clinical Debridement Subcutaneous -Tissue Removed Subcutaneous -Post Debridement (cm) - Length 0.5 -Post Debridement (cm) - Width 1.5 -Post Debridement (cm) - Depth 0.1 -Total Square (Post) (cm) 0.75 -Area of Debridement (cm) - Length 0.5 -Area of Debridement (cm) - Width 1.5 -Total Square (Area) (cm) 0.75 -Tunneling No -Undermining/Tunneling No -Circular Undermining No -Wound/Ulcer Outcome Not Healed -Ulcer Cleansing Rinsed/ Irrigated with Saline -Foul Odor after Cleansing No -Bioengineered Tissue No -Bleeding Controlled with Pressure -Treatment Response Procedure Tolerated Well -Offloading No -Debridement - Subq, 1st 20sq cm Yes Pain Scale: 0-10 Numeric Is Patient Pain Free? Yes WC - Nurse 3 - General Ulcer D/C NN Start: 08/10/24 09:25 Freq: Status: Active Protocol: Activity Type Activity Date Activity User E-sign Co-sign Detail Recorded Client Recorded Date Recorded By Document 08/10/24 10:18 DL [id number] 08/10/24 10:19 DL 08/10/24 10:18 Wound Care Center Nurse 3 #1 L Inner Thigh -Ulcer Cleansing Rinsed/ Irrigated with Saline -Primary Dressing Applied C Hydrogel, Silicone Border Foam 4x4 -Hydrogel 1 -Silicone Border Foam 4x4 1 Treatment Response Procedure Tolerated Well Pain Scale: 0-10 Numeric Is Patient Pain Free? 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: CODE(S): L97.102 - Non-pressure chronic ulcer of unspecified thigh with fat layer exposed QUALIFIERS: Laterality: left Qualified Code(s): L97.122 - Non-pressure chronic ulcer of left thigh with fat layer exposed (2) Abscess of left thigh: CODE(S): L02.416 - Cutaneous abscess of left lower limb (3) Morbid obesity with BMI of 60.0-69.9, adult: CODE(S): E66.01 - Morbid (severe) obesity due to excess calories; Z68.44 - Body mass index [BMI] 60.0-69.9, adult (4) Diabetes: CODE(S): E11.9 - Type 2 diabetes mellitus without complications QUALIFIERS: Diabetes mellitus type: type 2 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: without senior care use Diabetes mellitus complication status: with hyperglycemia Qualified Code(s): E11.65 - Type 2 diabetes mellitus with hyperglycemia (5) Chronic low back pain with sciatica: CODE(S): M54.40 - Lumbago with sciatica, unspecified side; G89.29 - Other chronic pain (6) Lumbar back pain with radiculopathy affecting lower extremity: CODE(S): M54.16 - Radiculopathy, lumbar region (7) RAD (reactive airway disease): CODE(S): J45.909 - Unspecified asthma, uncomplicated (8) Lumbar degenerative disc disease: CODE(S): M51.36 - Other intervertebral disc degeneration, lumbar region (9) [place] disease: 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 (10) History of ovarian cyst: CODE(S): Z87.42 - Personal history of other diseases of the female genital tract (11) History of polycystic ovarian syndrome: CODE(S): Z87.42 - Personal history of other diseases of the female genital tract (12) Lumbar radiculopathy: CODE(S): M54.16 - Radiculopathy, lumbar region (13) H/O partial adrenalectomy: CODE(S): E89.6 - Postprocedural adrenocortical (-medullary) hypofunction (14) Hypertriglyceridemia: CODE(S): E78.1 - Pure hyperglyceridemia (15) Osteoporosis: CODE(S): M81.0 - Age-related osteoporosis without current pathological fracture (16) GERD (gastroesophageal reflux disease): CODE(S): K21.9 - Gastro-esophageal reflux disease without esophagitis (17) CPAP (continuous positive airway pressure) dependence: CODE(S): Z99.89 - Dependence on other enabling machines and devices (18) Sleep apnea: CODE(S): G47.30 - Sleep apnea, unspecified (19) ADHD: CODE(S): F90.9 - Attention-deficit hyperactivity disorder, unspecified type (20) Bipolar 1 disorder: CODE(S): F31.9 - Bipolar disorder, unspecified (21) Cancer: CODE(S): C80.1 - Malignant (primary) neoplasm, unspecified (22) Arthritis: CODE(S): M19.90 - Unspecified osteoarthritis, unspecified site (23) History of irregular heartbeat: CODE(S): Z86.79 - Personal history of other diseases of the circulatory system (24) PCOS (polycystic ovarian syndrome): CODE(S): E28.2 - Polycystic ovarian syndrome (25) H/O oophorectomy: (26) History of tonsillectomy and adenoidectomy: CODE(S): Z98.890 - Other specified postprocedural states (27) H/O wisdom tooth extraction: CODE(S): K08.409 - Partial loss of teeth, unspecified cause, unspecified class (28) H/O ovarian cystectomy: CODE(S): Z98.890 - Other specified postprocedural states; Z87.42 - Personal history of other diseases of the female genital tract (29) Hx of cholecystectomy: CODE(S): Z90.49 - Acquired absence of other specified parts of digestive tract PLAN: Plan This is a 29-year-old morbidly obese, diabetic female who presents with a recent abscess on the left upper posterior thigh. A full-thickness ulceration remains. The patient has been advised to optimize her nutritional intake, as well as her glycemic control. She has recently been placed on nystatin powder and ointment for the tinea cruris in her groins. This is to be continued. Given the area in which the ulceration is position, the patient has been advised to avoid friction and moisture to the area. We are to implement the use of collagen hydrogel, which will be applied topically on a daily basis. A foam border dressing will also be utilized. The patient has been advised to keep the area clean and dry, and is to wash with antibacterial soap on a regular basis. The patient is to return in 1 week for reevaluation. Total time: 45 minutes
== END 2024-09-05 23:59 | disposition home or self-care (01) ==
LOC: WC 09:20
PROVIDERS: PCP Family Medicine; Referring Provider Family Medicine; Visit Provider Surgery
DX: E11.622 Type 2 diabetes mellitus with other skin ulcer (principal); L97.122 Non-pressure chronic ulcer of left thigh with fat layer exposed; E24.0 Pituitary-dependent Cushing's disease; F31.9 Bipolar disorder, unspecified; E66.01 Morbid (severe) obesity due to excess calories; Z68.44 Body mass index [BMI] 60.0-69.9, adult; C80.1 Malignant (primary) neoplasm, unspecified; Z79.4 Long term (current) use of insulin; E11.65 Type 2 diabetes mellitus with hyperglycemia; L02.416 Cutaneous abscess of left lower limb; K21.9 Gastro-esophageal reflux disease without esophagitis; F90.9 Attention-deficit hyperactivity disorder, unspecified type; B35.6 Tinea cruris; J45.909 Unspecified asthma, uncomplicated; M51.16 Intervertebral disc disorders with radiculopathy, lumbar region; M19.90 Unspecified osteoarthritis, unspecified site; G47.30 Sleep apnea, unspecified; M81.0 Age-related osteoporosis without current pathological fracture; E78.1 Pure hyperglyceridemia; E28.2 Polycystic ovarian syndrome; Z87.42 Personal history of other diseases of the female genital tract; E89.6 Postprocedural adrenocortical (-medullary) hypofunction; Z99.89 Dependence on other enabling machines and devices; Z86.79 Personal history of other diseases of the circulatory system; K08.409 Partial loss of teeth, unspecified cause, unspecified class; Z90.49 Acquired absence of other specified parts of digestive tract
CPT/HCPCS: 11042; 99213; G0463

== ENCOUNTER 2024-08-29 09:48 | Emergency (ER) | payer MEDICARE, MEDICAID, SELFPAY ==
[2024-08-29 09:50] VITALS: BP 173/101; PULSE 99; RESP 20; TEMP 36.8; O2SAT 100
[2024-08-29 09:53] VITALS: BMI 66.6
--- NOTE | 2024-08-29 10:05 | ED.RN ---
PT WALKED IN TO ED TODAY WITH C/O PAIN IN BILATERAL SHOULDERS, RADIATES DOWN HER ARMS, BILATERAL LEGS, AND STERNAL. PT STATES SHE HAD A COLONOSCOPY ON Thursday08/26/24, AND HAD SOME N/V THE DAY OF AND AFTER PROCEDURE. TAKING TYLENOL FOR DISCOMFORT. SX STARTED THURSDAY AND HAS NOT BEEN RELIEVED.
--- NOTE | 2024-08-29 10:10 | EX.ED.DYSGE1 ---
HPI History of Present Illness Chief Complaint: General Illness Informant: patient Narrative Narrative: 29-year-old female presenting to the emergency room with abdominal pain and back pain. Patient states that on Thursday she underwent a colonoscopy for lower GI bleeding and was found to have a distal polyp. This was performed at [facility]. Patient states that she is had pain in her upper abdomen going into the bilateral shoulders as well as leg pain since. She called her doctor's office who stated that because her pain was at least an 8 out of 10 that she should come to emergency. She understands that this is not a [facility]. She denies any fever. She states that she has been back to eating and drinking. She has resumed normal bowel movements. She denies urinary symptoms. It was reported to me by nursing that the patient has a ED care plan. Patient reports a history of prior cholecystectomy and left to for ectomy. 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 Abscess of left thigh Morbid obesity with BMI of 60.0-69.9, adult Osteoporosis GERD (gastroesophageal reflux disease) CPAP (continuous positive airway pressure) dependence Sleep apnea Proteinuria due to type 2 diabetes mellitus Obesity Hypertriglyceridemia Diabetes Anxiety disorder, unspecified ADHD Bipolar 1 disorder Herniated disc Cancer Depression History of steroid therapy Walker as ambulation aid Arthritis Kidney stones Anemia Injury of back Injury of head and neck Dietary restriction Gastric reflux Non-smoker History of pain when walking History of echocardiogram Cardiology follow-up encounter History of irregular heartbeat Abner's disease Cancer Diabetes Obesity GERD (gastroesophageal reflux disease) Ovarian cyst Asthma PCOS (polycystic ovarian syndrome) Home Medications ?Medication ?Instructions ?Recorded ?Last Taken ?Type cholecalciferol (vitamin D3) 125 125 mcg PO DAILY supplement 05/17/19 01/24/21 08:00 History mcg (5,000 unit) capsule epinephrine 0.3 mg/0.3 mL 0.3 mg (0.3 mL) IM X1 PRN 05/14/20 01/30/21 08:00 Rx injection, auto-injector Anaphylaxis ##1 albuterol sulfate 2.5 mg/3 mL 2.5 mg inhalation PRN PRN ASTHMA 01/25/21 01/30/21 08:00 History (0.083 %) solution for nebulization lisinopril 5 mg tablet 5 mg PO DAILY 01/25/21 01/30/21 08:00 History pantoprazole 40 mg tablet,delayed 40 mg PO BID 07/31/21 Unknown History release atorvastatin 10 mg tablet 10 mg PO QHS 08/07/22 Unknown History hydroxyzine HCl 50 mg tablet 50 mg PO BID PRN PRN Anxiety 08/20/22 Unknown History hydroxyzine HCl 50 mg tablet 100 mg PO QHS 08/20/22 Unknown History albuterol sulfate 90 mcg/actuation 2 puff inhalation PRN PRN ASTHMA 10/22/22 Unknown Rx aerosol inhaler #6.7 grams albuterol sulfate 2.5 mg/3 mL 2.5 mg (3 mL) inhalation Q6H PRN 03/26/23 Unknown Rx (0.083 %) solution for nebulization shortness of breath or wheezing #75 mL guanfacine 3 mg tablet,extended 3 mg PO DAILY 01/05/24 Unknown History release 24 hr (Intuniv ER) insulin glargine-yfgn 100 unit/mL 70 unit subcut QHS 01/05/24 Unknown History (3 mL) subcutaneous pen insulin lispro 100 unit/mL 4 unit subcut .with meals 01/05/24 Unknown History subcutaneous pen norethindrone acetate 1 mg-ethinyl 1 tab PO DAILY 01/05/24 Unknown History estradiol 20 mcg tablet (Microgestin) prazosin 2 mg capsule 2 mg PO QHS 01/05/24 Unknown History trazodone 100 mg tablet 200 mg PO QHS 01/05/24 Unknown History ondansetron 4 mg disintegrating 4 mg PO TID PRN nausea and 01/06/24 Unknown Rx tablet vomiting #21 tabs aripiprazole 20 mg tablet 20 mg PO QHS 05/21/24 Unknown History cephalexin 500 mg capsule 500 mg PO Q6 #28 CAPSULES 05/21/24 Unknown Rx fenofibrate nanocrystallized 48 mg 48 mg PO DAILY 05/21/24 Unknown History tablet ferrous sulfate 140 mg (45 mg 140 mg PO DAILY 05/21/24 Unknown History iron) tablet,extended release (Slow Release Iron) gabapentin 300 mg capsule 300 mg PO TID 05/21/24 Unknown History lamotrigine 100 mg tablet 100 mg PO QHS 05/21/24 Unknown History lamotrigine 25 mg tablet 75 mg PO DAILY 05/21/24 Unknown History meloxicam 15 mg tablet 15 mg PO DAILY 05/21/24 Unknown History metformin 500 mg tablet,extended 1,000 mg PO BID 05/21/24 Unknown History release 24 hr metoprolol succinate 50 mg 75 mg PO DAILY 05/21/24 Unknown History tablet,extended release 24 hr hydrocodone-acetaminophen 5-325mg 1 tab PO Q4H PRN PRN Pain 2 days 07/18/24 Unknown Rx 5mg-325mg #10 TABLETS Rexuti 08/10/24 Unknown History Allergy/AdvReac Type Severity Reaction Status Date / Time nitrofurantoin (From Allergy Intermediate rash Verified 08/29/24 10:07 Macrobid) penicillin V potassium (From Allergy Mild Rash Verified 08/29/24 10:07 Pen-Vee K) adhesive tape (plastic tape) Allergy Rash Verified 08/29/24 10:07 brompheniramine maleate Allergy Shortness Verified 08/29/24 10:07 (From Dimetapp of breath (brompheniramine-PPA)) celery Allergy Swelling Verified 08/29/24 10:07 phenylpropanolamine HCl Allergy Shortness Verified 08/29/24 10:07 (From Dimetapp of breath (brompheniramine-PPA)) amoxicillin trihydrate (From AdvReac Intermediate Diarrhea Verified 08/29/24 10:07 Augmentin) potassium clavulanate (From AdvReac Intermediate Diarrhea Verified 08/29/24 10:07 Augmentin) dicyclomine HCl (From Bentyl) AdvReac Nausea/Vom/ Verified 08/29/24 10:07 Diarrhea fructose AdvReac Nausea/Vom/ Verified 08/29/24 10:07 Diarrhea sertraline (From Zoloft) AdvReac Other Verified 08/29/24 10:07 Family History Father Diabetes Mother Hypertension Grandmother Breast cancer 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 H/O partial adrenalectomy History of back surgery History of adrenal surgery H/O oophorectomy H/O endoscopy History of tonsillectomy and adenoidectomy H/O wisdom tooth extraction H/O ovarian cystectomy Hx of cholecystectomy Social History household members: family Smoking Status: Never smoker alcohol intake: current alcohol intake frequency: a few times a month substance use type: does not use seatbelt use: always do you feel safe at home: Yes ROS ROS ED Constitutional Constitutional ED: Denies chills, fever(s) or weight loss Eyes Eyes: Denies change in vision or diplopia ENT ENT ED: Denies ear pain, rhinorrhea or sore throat Cardiovascular Cardiovascular: Denies chest pain, orthopnea, palpitations or racing heartbeat Respiratory/Chest Respiratory/Chest: Denies cough, dyspnea or orthopnea Gastrointestinal Gastrointestinal: Reports abdominal pain; Denies constipation, diarrhea, melena, nausea or vomiting Genitourinary Genitourinary ED: Denies dysuria, hematuria or urinary frequency Musculoskeletal Musculoskeletal: Reports back pain and other Details: Bilateral shoulder pain ; Denies arthralgias or myalgias Integumentary Denies abscess or rash Neurologic Neurologic: Denies headache(s) or weakness Psychiatric Psychiatric: Denies anxiety, depression, suicidal ideation or suicidal thoughts Endocrine Endocrinology: Denies polydipsia, polyphagia or polyuria Allergic/Immunologic Allergic/Immunologic ED: Denies mouth swelling, tongue swelling or urticaria EXAM Physical Exam Const Vital Signs: 08/29/24 09:50 08/29/24 10:03 08/29/24 11:49 Temperature 98.2 F Temperature Source Oral Pulse Rate 99 90 Respiratory Rate 20 H 16 Respiratory Effort Normal Respiratory Pattern Normal Blood Pressure 173/101 H 146/79 H Blood Pressure Mean 125 101 Pulse Ox 100 95 Oxygen Delivery Method Room Air Room Air 08/29/24 13:38 08/29/24 14:59 Temperature Temperature Source Pulse Rate 70 79 Respiratory Rate 18 18 Respiratory Effort Respiratory Pattern Blood Pressure 100/81 H 148/65 H Blood Pressure Mean 87 92 Pulse Ox 98 97 Oxygen Delivery Method Room Air Positive well nourished, well developed and obese General Appearance ED: well developed and NAD Nutritional Appearance: obese HEENT Reports normocephalic, head/scalp atraumatic and moist mucous membranes Eyes PERRL and EOMs intact bilaterally Neck no lymphadenopathy, supple and no JVD Resp normal respiratory effort and clear to auscultation bilaterally Cardio regular rate, regular rhythm and no murmurs GI normal to inspection, nondistended, normoactive bowel sounds and non-tender Palpation: soft Back/Spine no CVA tenderness and normal ROM Extremity normal to inspection General Extremety ED: Negative for edema General Extremity: Negative for edema Neuro oriented x3 and CN's II-XII intact bilaterally Sensorium / Orientation: alert Motor Exam: strength 5/5 throughout Psych mental status grossly normal Mood & Affect: tearful; Negative for depressed Skin no rashes or lesions noted and no wounds MDM MDM MDM Narrative Medical decision making narrative: Differential diagnosis includes but not limited to pancreatitis bowel perforation intra-abdominal free air pneumonia UTI biliary disease Patient's white count 11.7 no left shift liver enzymes and lipase within normal limits glucose 302 creatinine 0.53. Urinalysis with hematuria but no overt infection. CT of the ab pelvis not demonstrate any acute findings to explain her symptoms specifically free intra-abdominal air. I do not see any inflammatory changes. Please see radiology read. History & Record Review Discussion w/independent historian: Patient Additional record(s) reviewed:: Prior ED visit and Prior labs Lab Data Attestation: I reviewed the patient's lab results. Labs: Laboratory Results - last 24 hr 08/29/24 08/29/24 11:12 11:21 WBC 11.7 H RBC 4.71 Hgb 12.4 Hct 39.2 MCV 83.2 MCH 26.3 L MCHC 31.6 L RDW Std Deviation 43.8 RDW Coeff of Silvia 14.5 Plt Count 316 MPV 10.5 Immature Gran % (Auto) 0.300 Neut % (Auto) 65.1 Lymph % (Auto) 26.3 [place] % (Auto) 5.7 Eos % (Auto) 2.1 Baso % (Auto) 0.5 Absolute Neuts (auto) 7.6 Absolute Lymphs (auto) 3.07 Nucleated RBC % 0 Sodium 135 Potassium 4.4 Chloride 100 Carbon Dioxide 22.0 Anion Gap 13 BUN 9 Creatinine 0.53 L Estim Creat Clear Calc 296.86 H Est GFR (MDRD) Non-Af 130 BUN/Creatinine Ratio 17.7 Glucose 302 H Calcium 9.4 Total Bilirubin 0.15 Direct Bilirubin < 0.08 AST 30 ALT 31 Alkaline Phosphatase 58 Total Protein 7.1 Albumin 3.9 Globulin 3.2 Lipase 40 Serum , Qual NEGATIVE Urine Color Yellow Urine Clarity Clear Urine pH 7.0 Ur Specific [place] 1.010 Urine Protein 15 H Urine Glucose (UA) 1000 H Urine Ketones Negative Urine Occult Blood 250 H Urine Nitrite Negative Urine Bilirubin Negative Urine Urobilinogen Normal Ur Leukocyte Esterase 100 H Urine RBC > 100 SEEN Urine WBC 0-5 SEEN Ur Squamous Epith Cells 0-5 SEEN Urine Bacteria 0 SEEN Urine Mucus 0 SEEN Radiography Diagnostic Testing: Clinical Impression(s) from Imaging Studies Abdomen/Pelvis CT 08/29/24 13:57 IMPRESSION: 1. Anterior ventral hernia of the mid abdomen containing fat. No bowel obstruction or pneumoperitoneum. 2. Hepatomegaly with fatty infiltration. Reading Location: [facility] Discharge Plan Triage Chief Complaint: General Illness ED Provider: Branden Kay Dx/Rx/DC Orders Clinical Impression: Abdominal pain, Acute shoulder pain Instructions: Abdominal Pain Prescriptions: No Action cholecalciferol (vitamin D3) 125 MCG capsule 125 mcg PO DAILY epinephrine 0.3 MG syringe 0.3 mg IM X1 PRN (Reason: Anaphylaxis) Qty: 1 0RF albuterol sulfate 2.5 mg /3 mL (0.083 %) solution for nebulization 2.5 mg inhalation PRN PRN (Reason: ASTHMA) Patient Comments: INHALE 1 VIAL VIA NEBULIZER EVERY 6 HOURS NEEDED FOR SHORTNESS OF BREATH AND WHEEZING lisinopril 5 mg tablet 5 mg PO DAILY Patient Comments: TAKE 1 TABLET BY MOUTH ONCE DAILY pantoprazole 40 mg Tablet,Delayed Release (Dr/Ec) 40 mg PO BID atorvastatin 10 mg tablet 10 mg PO QHS Patient Comments: TAKE 1 TABLET BY MOUTH ONCE DAILY AT BEDTIME FOR CHOLESTEROL hydroxyzine HCl 50 mg Tablet 100 mg PO QHS hydroxyzine HCl 50 mg Tablet 50 mg PO BID PRN PRN (Reason: Anxiety) albuterol sulfate 90 mcg/actuation HFA aerosol inhaler 2 puff INHALATION PRN PRN (Reason: ASTHMA) Qty: 6.7 0RF albuterol sulfate 2.5 mg /3 mL (0.083 %) solution for nebulization 2.5 mg inhalation Q6H PRN (Reason: shortness of breath or wheezing) Qty: 75 0RF hydrocodone-acetaminophen 5-325 mg tablet 1 tab PO Q4H PRN PRN (Reason: Pain) 2 Days Qty: 10 0RF insulin glargine-yfgn 100 unit/mL (3 mL) insulin pen 70 unit subcut QHS insulin lispro 100 unit/mL insulin pen 4 unit subcut .with meals trazodone 100 mg tablet 200 mg PO QHS norethindrone ac-eth estradiol [Microgestin 06/27 ()] 1-20 mg-mcg tablet 1 tab PO DAILY prazosin 2 mg capsule 2 mg PO QHS guanfacine [Intuniv ER] 3 mg tablet extended release 24 hr 3 mg PO DAILY ondansetron 4 mg tablet,disintegrating 4 mg PO TID PRN (Reason: nausea and vomiting) Qty: 21 0RF metoprolol succinate 50 mg tablet extended release 24 hr 75 mg PO DAILY meloxicam 15 mg tablet 15 mg PO DAILY lamotrigine 25 mg tablet 75 mg PO DAILY gabapentin 300 mg capsule 300 mg PO TID metformin 500 mg tablet extended release 24 hr 1,000 mg PO BID lamotrigine 100 mg tablet 100 mg PO QHS aripiprazole 20 mg tablet 20 mg PO QHS fenofibrate nanocrystallized 48 mg tablet 48 mg PO DAILY Slow Release Iron 140 mg (45 mg iron) tablet extended release 140 mg PO DAILY cephalexin 500 mg capsule 500 mg PO Q6 Qty: 28 0RF Rexuti Primary Care Provider: Miguelito Unger Referrals: Miguelito Unger MD [Primary Care Provider] - 3-5 Days if not improving Print Language: Albanian Disposition Disposition: Home, Self Care
[2024-08-29 11:24] LABS: Absolute Lymphocyte Count 3.07 X10^3/uL (0.83-4.51); Absolute Neutrophil Count 7.6 X10^3/uL (2.0-7.7); Basophil# 0.06 X10^3/uL; Basophil% 0.5 % (0-1); Eosinophil# 0.25 X10^3/uL; Eosinophils% 2.1 % (0-5); Hematocrit 39.2 % (37-47); Hemoglobin 12.4 g/dL (12.0-15.0); Lymphocyte # 3.07 X10^3/ul (0.83-4.51); Lymphocyte % 26.3 % (19-41); Mean Corp Hgb Conc 31.6 g/dL (32-36); Mean Corpuscular Hgb 26.3 pg (27.0-32.0); Mean Corpuscular Volume 83.2 fL (81-99); Mean Platelet Vol. 10.5 fl (6.2-12.0); Monocyte# 0.66 X10^3/uL; Monocyte% 5.7 % (0-10); NRBC Flagged by Analyzer 0 % (0-5); Neutrophil % 65.1 % (47-70); Platelet Count 316 K/mm3 (150-450); RBC Distribution Width CV 14.5 % (11.6-14.6); RBC Distribution Width SD 43.8 fl (35.1-43.9); Red Blood Count 4.71 M/mm3 (4.2-5.4); White Blood Count 11.7 K/mm3 (4.4-11.0)
[2024-08-29] MEDS: 0.9% Normal Saline (1000mL) 1,000 ML 999 ML IV (11:24)
[2024-08-29 11:27] LABS: Bacteria 0 SEEN /hpf (None Seen); Mucous, Urine 0 SEEN /hpf (<or=2+)
[2024-08-29 11:34] LABS: Color, Urine Yellow (Yellow); Glucose, Dipstick 1000 mg/dl (Normal); Ketone-Dipstick Negative (Negative); Leukocyte Esterase-Dipstick 100 /ul (Negative); Nitrite-Dipstick Negative (Negative); Occult Blood-Urine 250 /ul (Negative); Protein-Dipstick 15 mg/dl (Negative); Urine Bilirubin Dipstick Negative (Negative); Urine Clarity Clear (Clear); Urine Urobilinogen Normal (Normal)
[2024-08-29 11:40] LABS: Internal QC Validated? YES +Cl - CLEAR BKGD; Pregnancy, Serum, hCG Quali. NEGATIVE Negative
[2024-08-29 11:48] LABS: Red Blood Cells-Urine > 100 SEEN /hpf (0-5)
[2024-08-29 11:49] VITALS: BP 146/79; PULSE 90; RESP 16; O2SAT 95
[2024-08-29 11:49] LABS: Squamous Epithelial Cells - UA 0-5 SEEN /hpf (5-10); White Blood Cells 0-5 SEEN /hpf (0-5)
[2024-08-29] MEDS: Ketorolac 30 MG/ML Syringe IV (12:10)
[2024-08-29 13:38] VITALS: BP 100/81; PULSE 70; RESP 18; O2SAT 98
[2024-08-29 13:56] LABS: Lipase 40 U/L (13-75)
--- NOTE | 2024-08-29 13:57 | CT_ITS ---
EXAM: CT Abdomen, Pelvis and Lumbar Spine With Intravenous Contrast CLINICAL INDICATION: ABDOMINAL PAIN POD 3 COLONOSCOPY TECHNIQUE: Axial computed tomography images of the abdomen, pelvis and lumbar spine with intravenous contrast. This CT exam was performed using one or more of the following dose reduction techniques: automated exposure control, adjustment of the mA and/or kV according to patient size, and/or use of iterative reconstruction technique. COMPARISON: No relevant prior studies available. FINDINGS: LUNG BASES: Unremarkable. No mass. No consolidation. ABDOMEN: LIVER: Hepatomegaly with fatty infiltration. GALLBLADDER AND BILE DUCTS: Gallbladder is surgically absent. No ductal dilation. PANCREAS: Unremarkable. No mass. No ductal dilation. SPLEEN: Unremarkable. No splenomegaly. ADRENALS: Unremarkable. No mass. KIDNEYS AND URETERS: Unremarkable. No solid mass. No hydronephrosis. STOMACH AND BOWEL: Anterior ventral hernia of the mid abdomen containing fat. No bowel obstruction or pneumoperitoneum. No mucosal thickening. PELVIS: APPENDIX: No findings to suggest acute appendicitis. BLADDER: Unremarkable. No mass. REPRODUCTIVE: Unremarkable as visualized. LUMBAR SPINE: VERTEBRAE: Unremarkable. No acute fracture. DISCS/SPINAL CANAL/NEURAL FORAMINA: No acute findings. No significant spinal canal stenosis. ABDOMEN and PELVIS: INTRAPERITONEAL SPACE: See above. BONES/JOINTS: No acute fracture. No dislocation. SOFT TISSUES: See above. VASCULATURE: Unremarkable. No abdominal aortic aneurysm. LYMPH NODES: Unremarkable. No enlarged lymph nodes. CT/Abdomen/Pelvis W IV Cont ONLY IMPRESSION: 1. Anterior ventral hernia of the mid abdomen containing fat. No bowel obstru ction or pneumoperitoneum. 2. Hepatomegaly with fatty infiltration. Reading [facility]
[2024-08-29 14:07] LABS: AST(SGOT) 30 U/L (<=31); Alanine Aminotransfer ALT/SGPT 31 U/L (<=34); Albumin, Serum 3.9 g/dL (3.5-5.0); Alkaline Phosphatase 58 U/L (35-104); Anion Gap 13 (5-15); BUN 9 mg/dL (4-19); BUN/Creat Ratio 17.7 RATIO (10-20); Bilirubin, Direct < 0.08 mg/dL (0.00-0.30); Calcium,Total 9.4 mg/dL (7.6-11.0); Chloride 100 mmol/L (98-108); Creatinine, Serum 0.53 mg/dL (0.70-1.20); EST Glomerular Filtration Rate 130 (>60); Estimated Creatinine Clearance 296.86 ml/min (50-250); Globulin 3.2 g/dL (2.2-4.2); Glucose 302 mg/dL (70-99); Potassium 4.4 mmol/L (3.3-5.1); Protein, Total 7.1 g/dL (5.9-8.4); Sodium Level 135 mmol/L (133-145); Total Bilirubin 0.15 mg/dL (0.00-1.30)
[2024-08-29 14:59] VITALS: BP 148/65; PULSE 79; RESP 18; O2SAT 97
[2024-08-29 15:22] VITALS: BP 150/100; PULSE 89; RESP 18; TEMP 36.6; O2SAT 97
== END 2024-08-29 15:23 | disposition home or self-care (01) ==
PROVIDERS: Emergency Provider Emergency Medicine; PCP Family Medicine; Visit Provider Emergency Medicine
DX: R10.10 Upper abdominal pain, unspecified (principal); F31.9 Bipolar disorder, unspecified; E11.9 Type 2 diabetes mellitus without complications; Z79.4 Long term (current) use of insulin; M25.511 Pain in right shoulder; M25.512 Pain in left shoulder; K21.9 Gastro-esophageal reflux disease without esophagitis; F41.9 Anxiety disorder, unspecified; F90.9 Attention-deficit hyperactivity disorder, unspecified type; E78.1 Pure hyperglyceridemia; E28.2 Polycystic ovarian syndrome; E66.9 Obesity, unspecified; M81.0 Age-related osteoporosis without current pathological fracture; J45.909 Unspecified asthma, uncomplicated; Z88.0 Allergy status to penicillin; Z88.1 Allergy status to other antibiotic agents; Z90.49 Acquired absence of other specified parts of digestive tract; Z87.19 Personal history of other diseases of the digestive system; Z79.84 Long term (current) use of oral hypoglycemic drugs; Z79.899 Other long term (current) drug therapy
CPT/HCPCS: 74177; 80048; 80076; 81001; 83690; 84703; 85025; 87631; 96361; 96374; 99282; Q9967; A4216

== ENCOUNTER 2024-09-10 11:52 | Emergency (ER) | payer MEDICARE, MEDICAID, SELFPAY ==
[2024-09-10 11:52] VITALS: BP 177/92; PULSE 102; RESP 20; TEMP 36.6; O2SAT 97
--- NOTE | 2024-09-10 12:03 | CT_ITS ---
PROCEDURE: ABDOMEN/PELVIS WITHOUT CONT 09/10/2024 REASON FOR EXAM: RIGHT ABD/ FLANK PAIN. Pain radiating to groin. Partial adrenalectomy, oophorectomy and cholecystectomy TECHNIQUE: Abdomen and pelvis CT without intravenous contrast. Noncontrast technique limits evaluation of the abdominal and pelvic viscera. Coronal and Sagittal reconstruction series were provided. CTDI: 32.81. DLP: 2164.54 One or more dose reduction techniques were used (e.g., Automated exposure control, adjustment of the mA and/or kV according to patient size, use of iterative reconstruction technique). PATIENT PREPARATION: Per protocol ORAL CONTRAST TYPE: None. AMOUNT: mL COMPARISON: CT abdomen pelvis of 08/29/2024 FINDINGS: Lung bases: Clear. No consolidating airspace disease. No interstitial thickening. Liver: Normal. Gallbladder: Cholecystectomy clips in the gallbladder fossa. Spleen: Normal. Pancreas: Normal pancreas. Adrenals: Left adrenal gland not seen, likely related to adrenalectomy per history. The right adrenal gland has a normal appearance. Kidneys: Mild right hydronephrosis and proximal right hydroureter. The proximal 3rd of the right ureter there is a 2 mm stone. No additional stones in either kidney. Left kidney is normal size and demonstrates no hydronephrosis. Bladder: Unremarkable. Reproductive Organs: Right adnexal cyst. Correlate with surgical history or repeat ultrasound pelvis. Uterus is unremarkable. Bowel: Small and large bowel are normal caliber and appearance. Appendix: No indication of appendicitis. Lymph nodes: None. Vasculature: Unremarkable. Peritoneum / Retroperitoneum: No free air or free fluid. Bones: No aggressive bony lesion. CT/Abdomen/Pelvis without Cont IMPRESSION: 2 mm obstructing calculus in the proximal 3rd of the right kidney producing mil d right hydronephrosis Reading [facility]
--- NOTE | 2024-09-10 12:04 | EDS_ITS ---
HPI History of Present Illness Chief Complaint: Flank Pain Detail of Chief Complaint: Right lower abdomen and flank pain Informant: patient Narrative Narrative: Patient presents with right lower abdomen and flank pain that started initially 2 days ago. Initially was intermittent. She was woken twice early this morning with pain. Describes her pain as a 9 out of 10. She has had some nausea but no vomiting. She denies fever. She denies urinary symptoms. She has had prior cholecystectomy. She has had prior left oophorectomy due to ovarian cancer. She has history of hemorrhagic cysts on her right ovary. She still has her appendix. 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 Abscess of left thigh Morbid obesity with BMI of 60.0-69.9, adult Osteoporosis GERD (gastroesophageal reflux disease) CPAP (continuous positive airway pressure) dependence Sleep apnea Proteinuria due to type 2 diabetes mellitus Obesity Hypertriglyceridemia Diabetes Anxiety disorder, unspecified ADHD Bipolar 1 disorder Herniated disc Cancer Depression History of steroid therapy Walker as ambulation aid Arthritis Kidney stones Anemia Injury of back Injury of head and neck Dietary restriction Gastric reflux Non-smoker History of pain when walking History of echocardiogram Cardiology follow-up encounter History of irregular heartbeat [place]'s disease Cancer Diabetes Obesity GERD (gastroesophageal reflux disease) Ovarian cyst Asthma PCOS (polycystic ovarian syndrome) Home Medications ?Medication ?Instructions ?Recorded ?Last Taken ?Type cholecalciferol (vitamin D3) 125 125 mcg PO DAILY supp lement 05/17/19 01/24/21 08:00 History mcg (5,000 unit) capsule epinephrine 0.3 mg/0.3 mL 0.3 mg (0.3 mL) IM X1 PRN 01/30/21 08:00 Rx injection, auto-injector Anaphylaxis ##1 albuterol sulfate 2.5 mg/3 mL 2.5 mg inhalation PRN WI N ASTHMA 01/25/21 01/30/21 08:00 History (0.083 %) solution for nebulization lisinopril 5 mg tablet 5 mg PO DAILY 01/25/2101/30 08:00 History pantoprazole 40 mg tablet,delayed 40 mg PO BID 2 Unknown History release atorvastatin 10 mg tablet 10 mg PO QHS 08/07/22 Unknow n History hydroxyzine HCl 50 mg tablet 50 mg PO BID PRN PRN Anxi ety 08/20/22 Unknown History hydroxyzine HCl 50 mg tablet 100 mg PO QHS 08/20/22 Un known History albuterol sulfate 90 mcg/actuation 2 puff inhalation P RN PRN ASTHMA 10/22/22 Unknown Rx aerosol inhaler #6.7 grams albuterol sulfate 2.5 mg/3 mL 2.5 mg (3 mL) inhalation Q6H PRN 03/26/23 Unknown Rx (0.083 %) solution for nebulization shortness of breat h or wheezing #75 mL guanfacine 3 mg tablet,extended 3 mg PO DAILY 01/05/24 Unknown History release 24 hr (Intuniv ER) insulin glargine-yfgn 100 unit/mL 70 unit subcut QHS 0 01/05/24 Unknown History (3 mL) subcutaneous pen insulin lispro 100 unit/mL 4 unit subcut .with meals 0 01/05/24 Unknown History subcutaneous pen norethindrone acetate 1 mg-ethinyl 1 tab PO DAILY 12/08 Unknown History estradiol 20 mcg tablet (Microgestin) prazosin 2 mg capsule 2 mg PO QHS 01/05/24 Unknown History trazodone 100 mg tablet 200 mg PO QHS 01/05/24 Unkno wn History ondansetron 4 mg disintegrating 4 mg PO TID PRN nausea and 01/06/24 Unknown Rx tablet vomiting #21 tabs aripiprazole 20 mg tablet 20 mg PO QHS 05/21/24 Unknow n History cephalexin 500 mg capsule 500 mg PO Q6 #28 CAPSULES Unknown Rx fenofibrate nanocrystallized 48 mg 48 mg PO DAILY 05/08 09/29 Unknown History tablet ferrous sulfate 140 mg (45 mg 140 mg PO DAILY 05/21/24 Unknown History iron) tablet,extended release (Slow Release Iron) gabapentin 300 mg capsule 300 mg PO TID 05/21/24 Unkno wn History lamotrigine 100 mg tablet 100 mg PO QHS 05/21/24 Unkno wn History lamotrigine 25 mg tablet 75 mg PO DAILY 05/21/24 Unkn own History meloxicam 15 mg tablet 15 mg PO DAILY 05/21/24 Unkn own History metformin 500 mg tablet,extended 1,000 mg PO BID 05/21 Unknown History release 24 hr metoprolol succinate 50 mg 75 mg PO DAILY 05/21/24 Unk nown History tablet,extended release 24 hr hydrocodone-acetaminophen 5-325mg 1 tab PO Q4H PRN PRN Pain 2 days 07/18/24 Unknown Rx 5mg-325mg #10 TABLETS Rexuti 08/10/24 Unknown History hydrocodone-acetaminophen 5-325mg 1 tab PO Q4H PRN PRN Pain 2 days 09/10/24 Unknown Rx 5mg-325mg #10 TABLETS naproxen 500 mg tablet 500 mg PO BID #14 tabs 09/10 Unknown Rx ondansetron 4 mg disintegrating 4 mg PO Q8H PRN PRN Na usea #10 tabs 09/10/24 Unknown Rx tablet sulfamethoxazole 800 1 tab PO BID #6 TABLETS 10/30 Unknown Rx mg-trimethoprim 160 mg tablet Allergy/AdvReac Type Severity Reaction Status Date / Time nitrofurantoin (From Allergy Intermediate rash Verified 09/10/24 11:53 Macrobid) penicillin V potassium (From Allergy Mild Rash Verified 09/10/24 11:53 Pen-Vee K) adhesive tape (plastic tape) Allergy Rash Verified 09/10/24 11:53 brompheniramine maleate Allergy Shortness Verified 09/10/24 11:53 (From Dimetapp of breath (brompheniramine-PPA)) celery Allergy Swelling Verified 09/10/24 11:53 phenylpropanolamine HCl Allergy Shortness Verified 09/10/24 11:53 (From Dimetapp of breath (brompheniramine-PPA)) amoxicillin trihydrate (From AdvReac Intermediate Diarrhea Verified 09/10/24 11:53 Augmentin) potassium clavulanate (From AdvReac Intermediate Diarrhea Verified 09/10/24 11:53 Augmentin) dicyclomine HCl (From Bentyl) AdvReac Nausea/Vom/ Verified 09/10/24 11:53 Diarrhea fructose AdvReac Nausea/Vom/ Verified 09/10/24 11:53 Diarrhea sertraline (From Zoloft) AdvReac Other Verified 09/10/24 11:53 Family History Father Diabetes Mother Hypertension Grandmother Breast cancer 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 H/O partial adrenalectomy History of back surgery History of adrenal surgery H/O oophorectomy H/O endoscopy History of tonsillectomy and adenoidectomy H/O wisdom tooth extraction H/O ovarian cystectomy Hx of cholecystectomy Social History household members: family Smoking Status: Never smoker alcohol intake: current alcohol intake frequency: a few times a month substance use type: does not use seatbelt use: always do you feel safe at home: Yes ROS ROS ED Review of Systems ROS Unobtainable: other Constitutional Constitutional ED: Reports lethargy; Denies chills, fever(s), sweats or weight loss Eyes Eyes: Denies blurry vision, change in vision or diplopia ENT ENT ED: Denies rhinorrhea or sore throat Cardiovascular Cardiovascular: Denies chest pain, orthopnea or racing heartbeat Respiratory/Chest Respiratory/Chest: Denies cough, dyspnea, dyspnea on exertion, orthopnea or sputum Gastrointestinal Gastrointestinal: Reports abdominal pain and nausea; Denies diarrhea or vomiting Genitourinary Genitourinary ED: Denies dysuria, hematuria or urinary frequency Musculoskeletal Musculoskeletal: Denies arthralgias, back pain, myalgias or neck pain Integumentary Denies abscess, Abrasions or rash Neurologic Neurologic: Denies headache(s) or weakness Psychiatric Psychiatric: Denies anxiety, depression or suicidal thoughts Endocrine Endocrinology: Denies polydipsia, polyphagia or polyuria Hematologic/Lymphatic Hematologic/Lymphatic: Denies easy bleeding, easy bruising or lymphadenopathy Allergic/Immunologic Allergic/Immunologic ED: Denies mouth swelling, tongue swelling or urticaria EXAM Physical Exam Const Vital Signs: 09/10/24 11:52 09/10/24 13:52 Temperature 98 F Temperature Source Temporal Pulse Rate 102 H 84 Respiratory Rate 20 H 18 Blood Pressure 177/92 H 125/65 H Blood Pressure Mean 120 85 Pulse Ox 97 96 Oxygen Delivery Method Room Air Room Air Positive well nourished and well developed General Appearance ED: well developed and NAD HEENT Reports TM's clear and moist mucous membranes normocephalic and atraumatic; Negative for trauma or tenderness Tympanic Membrane ED: Yes TM's clear Eyes PERRL and EOMs intact bilaterally General Eye ED: Negative for pale conjunctiva or scleral icterus Neck no lymphadenopathy, supple and no JVD General: Negative for tenderness Chest Wall inspection of chest normal and palpation of chest normal Chest: Negative for tenderness Resp normal respiratory effort and clear to auscultation bilaterally Effort and Inspection: Negative for respiratory distress or pain with movement Auscultation: Negative for rhonchi, wheezes or diminished lung sounds Cardio regular rate, regular rhythm, S1 normal heart sound, S2 normal heart sound and no murmurs Peripheral Pulses: pulses 2+ throughout GI normal to inspection, nondistended, normoactive bowel sounds, soft to palpation, non-distended and no masses GI Narrative: Patient with high BMI and large body habitus. Tenderness to palpation over right lower quadrant with some guarding. Mild CVA tenderness on the right. There is no rebound, rigidity, or peritoneal signs. No mass palpated however exam difficult Back/Spine no CVA tenderness and no thoracic nor lumbar tenderness Extremity normal to inspection General Extremety ED: Negative for edema General Extremity: Negative for edema Neuro oriented x3, CN's II-XII intact bilaterally, no sensory deficits noted and gait normal Sensorium / Orientation: awake, alert, oriented to person, oriented to place and oriented to time Motor Exam: strength 5/5 throughout and strength abnormal Psych mental status grossly normal Skin no rashes or lesions noted and no wounds MDM MDM MDM Narrative Medical decision making narrative: Patient presents the emergency department with right-sided pain. Pain worsening since this morning. She does have a history of kidney stones. Clinically looks well. IV line established. She was medicated with Toradol, morphine, and Zofran and had good pain relief with that. CBC with differential showed a white count that was elevated at 12.8 which seems to be a chronic issue for her. Hemoglobin 12.3 and platelet count of 320. Chemistries unremarkable. Glucose elevated 300. hCG was negative. BUN 8 and creatinine 0.58. Urinalysis showed 500 leukocyte Estrace as well as 10-25 WBCs and +1 bacteria. I did send off a urine culture. CT scan of the abdomen pelvis without contrast showed a 2 mm stone within the proximal third of the right ureter with mild hydroureter and hydronephrosis. Patient will be discharged to home. She will be sent home with urine strainer's. She will be given a prescription for hydrocodone as well as naproxen and Zofran. Will refer to urology for follow-up. Advised to return if worsening pain, vomiting, fever, or condition should worsen anyway. Will also start patient on Bactrim. Lab Data Attestation: I reviewed the patient's lab results. Labs: Laboratory Results - last 24 hr 09/10/24 09/10/24 12:46 13:46 WBC 12.8 H RBC 4.70 Hgb 12.3 Hct 38.9 MCV 82.8 MCH 26.2 L MCHC 31.6 L RDW Std Deviation 43.2 RDW Coeff of Silvia 14.5 Plt Count 320 MPV 10.5 Immature Gran % (Auto) 0.400 Neut % (Auto) 70.2 H Lymph % (Auto) 20.4 [place] % (Auto) 6.4 Eos % (Auto) 2.1 Baso % (Auto) 0.5 Absolute Neuts (auto) 9.0 H Absolute Lymphs (auto) 2.61 Nucleated RBC % 0 Sodium 135 Potassium 4.2 Chloride 101 Carbon Dioxide 21.3 Anion Gap 13 BUN 8 Creatinine 0.58 L Estim Creat Clear Calc 272.46 H Est GFR (MDRD) Non-Af 127 BUN/Creatinine Ratio 14.0 Glucose 300 H Calcium 9.6 Serum , Qual NEGATIVE Urine Color Yellow Urine Clarity Sl. Cloudy Urine pH 6.0 Ur Specific [place] 1.015 Urine Protein 15 H Urine Glucose (UA) 1000 H Urine Ketones Negative Urine Occult Blood 25 H Urine Nitrite Negative Urine Bilirubin Negative Urine Urobilinogen Normal Ur Leukocyte Esterase 500 H Urine RBC 0-5 SEEN Urine WBC 10-25 SEEN Ur Squamous Epith Cells 0 SEEN Urine Bacteria 1+ Urine Mucus 0 SEEN Radiography Diagnostic Testing: Clinical Impression(s) from Imaging Studies Abdomen/Pelvis CT 09/10/24 12:03 IMPRESSION: 2 mm obstructing calculus in the proximal 3rd of the right kidney producing mild right hydronephrosis [facility] Discharge Plan Triage Chief Complaint: Flank Pain ED Provider: Mega Posey Dx/Rx/DC Orders Clinical Impression: Urolithiasis, UTI (urinary tract infection) Instructions: UTIs, ED Kidney Stone with Pain Prescriptions: New hydrocodone-acetaminophen 5-325 mg tablet 1 tab PO Q4H PRN PRN (Reason: Pain) 2 Days Qty: 10 0RF sulfamethoxazole-trimethoprim 800-160 mg tablet 1 tab PO BID Qty: 6 0RF ondansetron 4 mg tablet,disintegrating 4 mg PO Q8H PRN PRN (Reason: Nausea) Qty: 10 0RF naproxen 500 mg tablet 500 mg PO BID Qty: 14 0RF No Action cholecalciferol (vitamin D3) 125 MCG capsule 125 mcg PO DAILY epinephrine 0.3 MG syringe 0.3 mg IM X1 PRN (Reason: Anaphylaxis) Qty: 1 0RF albuterol sulfate 2.5 mg /3 mL (0.083 %) solution for nebulization 2.5 mg inhalation PRN PRN (Reason: ASTHMA) Patient Comments: INHALE 1 VIAL VIA NEBULIZER EVERY 6 HOURS NEEDED FOR SHORTNESS OF BREATH AND WHEEZING lisinopril 5 mg tablet 5 mg PO DAILY Patient Comments: TAKE 1 TABLET BY MOUTH ONCE DAILY pantoprazole 40 mg Tablet,Delayed Release (Dr/Ec) 40 mg PO BID atorvastatin 10 mg tablet 10 mg PO QHS Patient Comments: TAKE 1 TABLET BY MOUTH ONCE DAILY AT BEDTIME FOR CHOLESTEROL hydroxyzine HCl 50 mg Tablet 100 mg PO QHS hydroxyzine HCl 50 mg Tablet 50 mg PO BID PRN PRN (Reason: Anxiety) albuterol sulfate 90 mcg/actuation HFA aerosol inhaler 2 puff INHALATION PRN PRN (Reason: ASTHMA) Qty: 6.7 0RF albuterol sulfate 2.5 mg /3 mL (0.083 %) solution for nebulization 2.5 mg inhalation Q6H PRN (Reason: shortness of breath or wheezing) Qty: 75 0RF hydrocodone-acetaminophen 5-325 mg tablet 1 tab PO Q4H PRN PRN (Reason: Pain) 2 Days Qty: 10 0RF insulin glargine-yfgn 100 unit/mL (3 mL) insulin pen 70 unit subcut QHS insulin lispro 100 unit/mL insulin pen 4 unit subcut .with meals trazodone 100 mg tablet 200 mg PO QHS norethindrone ac-eth estradiol [Microgestin 06/27 ()] 1-20 mg-mcg tablet 1 tab PO DAILY prazosin 2 mg capsule 2 mg PO QHS guanfacine [Intuniv ER] 3 mg tablet extended release 24 hr 3 mg PO DAILY ondansetron 4 mg tablet,disintegrating 4 mg PO TID PRN (Reason: nausea and vomiting) Qty: 21 0RF metoprolol succinate 50 mg tablet extended release 24 hr 75 mg PO DAILY meloxicam 15 mg tablet 15 mg PO DAILY lamotrigine 25 mg tablet 75 mg PO DAILY gabapentin 300 mg capsule 300 mg PO TID metformin 500 mg tablet extended release 24 hr 1,000 mg PO BID lamotrigine 100 mg tablet 100 mg PO QHS aripiprazole 20 mg tablet 20 mg PO QHS fenofibrate nanocrystallized 48 mg tablet 48 mg PO DAILY Slow Release Iron 140 mg (45 mg iron) tablet extended release 140 mg PO DAILY cephalexin 500 mg capsule 500 mg PO Q6 Qty: 28 0RF Rexuti Primary Care Provider: Miguelito Unger Referrals: Nella Watson MD [Med Staff - Active Staff] - 3-5 Days Miguelito Unger MD [Primary Care Provider] - Print Language: Turkish Disposition Disposition: Home, Self Care
[2024-09-10 12:22] VITALS: BMI 67.1
[2024-09-10 13:06] LABS: Absolute Lymphocyte Count 2.61 X10^3/uL (0.83-4.51); Basophil# 0.06 X10^3/uL; Basophil% 0.5 % (0-1); Eosinophil# 0.27 X10^3/uL; Eosinophils% 2.1 % (0-5); Hematocrit 38.9 % (37-47); Hemoglobin 12.3 g/dL (12.0-15.0); Lymphocyte # 2.61 X10^3/ul (0.83-4.51); Lymphocyte % 20.4 % (19-41); Mean Corp Hgb Conc 31.6 g/dL (32-36); Mean Corpuscular Hgb 26.2 pg (27.0-32.0); Mean Corpuscular Volume 82.8 fL (81-99); Mean Platelet Vol. 10.5 fl (6.2-12.0); Monocyte# 0.82 X10^3/uL; Monocyte% 6.4 % (0-10); NRBC Flagged by Analyzer 0 % (0-5); Neutrophil # 8.98 X10^3/uL (2.7-7.7); Neutrophil % 70.2 % (47-70); Platelet Count 320 K/mm3 (150-450); RBC Distribution Width CV 14.5 % (11.6-14.6); RBC Distribution Width SD 43.2 fl (35.1-43.9); White Blood Count 12.8 K/mm3 (4.4-11.0)
[2024-09-10] MEDS: Ketorolac 30 MG/ML Syringe IV (13:09)
[2024-09-10] MEDS: Ondansetron 4 MG/2 ML Vial IV (13:09)
[2024-09-10] MEDS: Morphine 4 MG/ML Syringe IV (13:09)
[2024-09-10] MEDS: 0.9% Normal Saline (1000mL) 1,000 ML 125 ML IV (13:09)
[2024-09-10 13:20] LABS: Internal QC Validated? YES +Cl - CLEAR BKGD; Pregnancy, Serum, hCG Quali. NEGATIVE Negative
[2024-09-10 13:33] LABS: Anion Gap 13 (5-15); BUN 8 mg/dL (4-19); Calcium,Total 9.6 mg/dL (7.6-11.0); Carbon Dioxide 21.3 mmol/L (21.0-32.0); Chloride 101 mmol/L (98-108); Creatinine, Serum 0.58 mg/dL (0.70-1.20); EST Glomerular Filtration Rate 127 (>60); Estimated Creatinine Clearance 272.46 ml/min (50-250); Glucose 300 mg/dL (70-99); Potassium 4.2 mmol/L (3.3-5.1); Sodium Level 135 mmol/L (133-145)
[2024-09-10 13:50] LABS: Mucous, Urine 0 SEEN /hpf (<or=2+); Squamous Epithelial Cells - UA 0 SEEN /hpf (5-10)
[2024-09-10 13:52] VITALS: BP 125/65; PULSE 84; RESP 18; O2SAT 96
[2024-09-10 14:04] VITALS: RESP 18; O2SAT 97
[2024-09-10 14:15] LABS: Color, Urine Yellow (Yellow); Glucose, Dipstick 1000 mg/dl (Normal); Ketone-Dipstick Negative (Negative); Leukocyte Esterase-Dipstick 500 /ul (Negative); Nitrite-Dipstick Negative (Negative); Occult Blood-Urine 25 /ul (Negative); Protein-Dipstick 15 mg/dl (Negative); Specific Gravity, Urine 1.015 (1.002-1.030); Urine Bilirubin Dipstick Negative (Negative); Urine Clarity Sl. Cloudy (Clear); Urine Urobilinogen Normal (Normal)
[2024-09-10 14:22] LABS: White Blood Cells 10-25 SEEN /hpf (0-5)
[2024-09-10 14:23] LABS: Bacteria 1+ /hpf (None Seen); Red Blood Cells-Urine 0-5 SEEN /hpf (0-5)
[2024-09-10] MEDS: Smz/Tmp Ds Tablet 1 TABLET PO (15:07)
== END 2024-09-10 15:20 | disposition home or self-care (01) ==
PROVIDERS: Emergency Provider Emergency Medicine; PCP Family Medicine; Visit Provider Emergency Medicine
DX: N13.6 Pyonephrosis (principal); F31.9 Bipolar disorder, unspecified; E11.9 Type 2 diabetes mellitus without complications; Z79.4 Long term (current) use of insulin; K21.9 Gastro-esophageal reflux disease without esophagitis; E78.1 Pure hyperglyceridemia; E28.2 Polycystic ovarian syndrome; F41.9 Anxiety disorder, unspecified; F90.9 Attention-deficit hyperactivity disorder, unspecified type; D64.9 Anemia, unspecified; M81.0 Age-related osteoporosis without current pathological fracture; G47.30 Sleep apnea, unspecified; J45.909 Unspecified asthma, uncomplicated; Z79.3 Long term (current) use of hormonal contraceptives; Z88.0 Allergy status to penicillin; Z88.1 Allergy status to other antibiotic agents; Z85.43 Personal history of malignant neoplasm of ovary; Z79.84 Long term (current) use of oral hypoglycemic drugs; Z90.49 Acquired absence of other specified parts of digestive tract; Z79.899 Other long term (current) drug therapy; Z87.442 Personal history of urinary calculi
CPT/HCPCS: 74176; 80048; 81001; 84703; 85025; 87077; 87086; 87088; 87186; 96374; 96375; 99284; J2405

== ENCOUNTER 2024-09-12 20:09 | Emergency (ER) | payer MEDICARE, MEDICAID, SELFPAY ==
[2024-09-12 20:10] VITALS: BP 145/71; PULSE 85; RESP 18; TEMP 37.2; O2SAT 98
[2024-09-12 20:13] VITALS: BMI 68.6
[2024-09-12 22:10] VITALS: PULSE 73; RESP 18; O2SAT 97
[2024-09-12] MEDS: Ondansetron 4 MG/2 ML Vial IV (22:20)
[2024-09-12] MEDS: Ketorolac 30 MG/ML Syringe IV (22:20)
[2024-09-12] MEDS: 0.9% Normal Saline (1000mL) 1,000 ML 999 ML IV (22:20)
[2024-09-12] MEDS: Morphine 4 MG/ML Syringe IV (22:21)
--- NOTE | 2024-09-12 22:27 | EX.ED.DYSGE1 ---
HPI History of Present Illness Chief Complaint: Flank Pain Informant: patient Narrative Narrative: Patient is a 29-year-old female with past medical history of PCOS GERD MAXIMILIAN bipolar disorder and type 2 diabetes. She was seen just 2 days ago secondary to right sided abdominal/flank pain and found to have a 2 mm ureterolithiasis. Patient states she is on antibiotics Adel and naproxen but pain has been persistent. 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 Abscess of left thigh Morbid obesity with BMI of 60.0-69.9, adult Osteoporosis GERD (gastroesophageal reflux disease) CPAP (continuous positive airway pressure) dependence Sleep apnea Proteinuria due to type 2 diabetes mellitus Obesity Hypertriglyceridemia Diabetes Anxiety disorder, unspecified ADHD Bipolar 1 disorder Herniated disc Cancer Depression History of steroid therapy Walker as ambulation aid Arthritis Kidney stones Anemia Injury of back Injury of head and neck Dietary restriction Gastric reflux Non-smoker History of pain when walking History of echocardiogram Cardiology follow-up encounter History of irregular heartbeat Abner's disease Cancer Diabetes Obesity GERD (gastroesophageal reflux disease) Ovarian cyst Asthma PCOS (polycystic ovarian syndrome) Home Medications ?Medication ?Instructions ?Recorded ?Last Taken ?Type cholecalciferol (vitamin D3) 125 125 mcg PO DAILY supplement 05/17/19 01/24/21 08:00 History mcg (5,000 unit) capsule epinephrine 0.3 mg/0.3 mL 0.3 mg (0.3 mL) IM X1 PRN 05/14/20 01/30/21 08:00 Rx injection, auto-injector Anaphylaxis ##1 albuterol sulfate 2.5 mg/3 mL 2.5 mg inhalation PRN PRN ASTHMA 01/25/21 01/30/21 08:00 History (0.083 %) solution for nebulization lisinopril 5 mg tablet 5 mg PO DAILY 01/25/21 01/30/21 08:00 History atorvastatin 10 mg tablet 10 mg PO QHS 08/07/22 Unknown History hydroxyzine HCl 50 mg tablet 50 mg PO BID PRN PRN Anxiety 08/20/22 Unknown History albuterol sulfate 90 mcg/actuation 2 puff inhalation PRN PRN ASTHMA 10/22/22 Unknown Rx aerosol inhaler #6.7 grams albuterol sulfate 2.5 mg/3 mL 2.5 mg (3 mL) inhalation Q6H PRN 03/26/23 Unknown Rx (0.083 %) solution for nebulization shortness of breath or wheezing #75 mL guanfacine 3 mg tablet,extended 3 mg PO DAILY 01/05/24 Unknown History release 24 hr (Intuniv ER) norethindrone acetate 1 mg-ethinyl 1 tab PO DAILY 01/05/24 Unknown History estradiol 20 mcg tablet (Microgestin) prazosin 2 mg capsule 2 mg PO QHS 01/05/24 Unknown History trazodone 100 mg tablet 200 mg PO QHS 01/05/24 Unknown History aripiprazole 20 mg tablet 20 mg PO QHS 05/21/24 Unknown History fenofibrate nanocrystallized 48 mg 48 mg PO DAILY 05/21/24 Unknown History tablet ferrous sulfate 140 mg (45 mg 140 mg PO DAILY 05/21/24 Unknown History iron) tablet,extended release (Slow Release Iron) lamotrigine 100 mg tablet 100 mg PO QHS 05/21/24 Unknown History metformin 500 mg tablet,extended 1,000 mg PO BID 05/21/24 Unknown History release 24 hr metoprolol succinate 50 mg 75 mg PO DAILY 05/21/24 Unknown History tablet,extended release 24 hr Rexuti 08/10/24 Unknown History blood-glucose sensor (FreeStyle 09/10/24 Unknown History Guerrero 3 Sensor device) brexpiprazole 3 mg tablet (Rexulti) 3 mg PO DAILY 09/10/24 Unknown History buspirone 15 mg tablet 15 mg PO BID 09/10/24 Unknown History clotrimazole 1 % topical cream applic topical BID 09/10/24 Unknown History gabapentin 400 mg capsule 400 mg PO BID 09/10/24 Unknown History hydrocodone-acetaminophen 5-325mg 1 tab PO Q4H PRN PRN Pain 2 days 09/10/24 Unknown Rx 5mg-325mg #10 TABLETS insulin glargine 100 unit/mL (3 72 unit subcut DAILY 09/10/24 Unknown History mL) subcutaneous pen (Lantus Solostar U-100 Insulin) naproxen 500 mg tablet 500 mg PO BID #14 tabs 09/10/24 Unknown Rx norethindrone acetate 1.5 1 tab PO DAILY 09/10/24 Unknown History mg-ethinyl estradiol 30 mcg tablet (Microgestin) ondansetron 4 mg disintegrating 4 mg PO Q8H PRN PRN Nausea #10 tabs 09/10/24 Unknown Rx tablet pen needle, diabetic 32 gauge x 09/10/24 Unknown History (BD Evy 2nd Gen Pen Needle) sulfamethoxazole 800 1 tab PO BID #6 TABLETS 09/10/24 Unknown Rx mg-trimethoprim 160 mg tablet oxycodone 5 mg tablet 5 mg PO Q6H PRN pain 3 days #12 09/13/24 Unknown Rx tabs tamsulosin 0.4 mg capsule (Flomax) 0.4 mg PO DAILY 14 days #14 caps 09/13/24 Unknown Rx Allergy/AdvReac Type Severity Reaction Status Date / Time nitrofurantoin (From Allergy Intermediate rash Verified 09/12/24 20:10 Macrobid) penicillin V potassium (From Allergy Mild Rash Verified 09/12/24 20:10 Pen-Vee K) adhesive tape (plastic tape) Allergy Rash Verified 09/12/24 20:10 brompheniramine maleate Allergy Shortness Verified 09/12/24 20:10 (From Dimetapp of breath (brompheniramine-PPA)) celery Allergy Swelling Verified 09/12/24 20:10 phenylpropanolamine HCl Allergy Shortness Verified 09/12/24 20:10 (From Dimetapp of breath (brompheniramine-PPA)) amoxicillin trihydrate (From AdvReac Intermediate Diarrhea Verified 09/12/24 20:10 Augmentin) potassium clavulanate (From AdvReac Intermediate Diarrhea Verified 09/12/24 20:10 Augmentin) dicyclomine HCl (From Bentyl) AdvReac Nausea/Vom/ Verified 09/12/24 20:10 Diarrhea fructose AdvReac Nausea/Vom/ Verified 09/12/24 20:10 Diarrhea sertraline (From Zoloft) AdvReac Other Verified 09/12/24 20:10 Family History Father Diabetes Mother Hypertension Grandmother Breast cancer 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 H/O partial adrenalectomy History of back surgery History of adrenal surgery H/O oophorectomy H/O endoscopy History of tonsillectomy and adenoidectomy H/O wisdom tooth extraction H/O ovarian cystectomy Hx of cholecystectomy Social History household members: family Smoking Status: Never smoker alcohol intake: current alcohol intake frequency: a few times a month substance use type: does not use seatbelt use: always do you feel safe at home: Yes ROS ROS ED Constitutional Constitutional ED: Denies chills or fever(s) ENT ENT ED: Denies sore throat Cardiovascular Cardiovascular: Denies chest pain Respiratory/Chest Respiratory/Chest: Denies cough or dyspnea Gastrointestinal Gastrointestinal: Reports abdominal pain; Denies diarrhea, nausea or vomiting Genitourinary Genitourinary ED: Denies dysuria Musculoskeletal Musculoskeletal: Reports back pain Integumentary Denies rash Neurologic Neurologic: Denies headache(s) Psychiatric Psychiatric: Reports depression Hematologic/Lymphatic Hematologic/Lymphatic: Denies easy bleeding or easy bruising EXAM Physical Exam Const Vital Signs: 09/12/24 20:10 09/12/24 22:10 09/12/24 22:25 Temperature 98.9 F Temperature Source Temporal Pulse Rate 85 73 Respiratory Rate 18 18 Respiratory Effort Normal Respiratory Pattern Normal Blood Pressure 145/71 H Blood Pressure Mean 95 Pulse Ox 98 97 Oxygen Delivery Method Room Air 09/12/24 23:52 09/13/24 00:35 Temperature 98.2 F Temperature Source Pulse Rate 72 81 Respiratory Rate 20 H 18 Respiratory Effort Respiratory Pattern Blood Pressure 115/40 L 156/82 H Blood Pressure Mean 65 106 Pulse Ox 97 96 Oxygen Delivery Method Room Air Positive well nourished, well developed and obese General Appearance ED: well developed; Negative for pallor Nutritional Appearance: obese HEENT HEENT Narrative: Normocephalic atraumatic Eyes PERRL and EOMs intact bilaterally General Eye ED: Negative for scleral icterus Neck supple Resp normal respiratory effort and clear to auscultation bilaterally Cardio regular rate and regular rhythm Rate: other Other Details: Radial and carotid pulses are equal and symmetric GI non-distended and no masses GI Narrative: Abdomen is obese soft and nondistended with hypoactive bowel sounds. There is pain palpation along the right lower and lateral region of the abdomen consistent with location of ureterolithiasis from previous CT scan. No voluntary guarding or rigidity no pulsatile mass or fluid wave. Auscultation: hypoactive bowel sounds Palpation: soft Back/Spine Back/Spine Narrative: Positive right CVA pain Extremity normal to inspection Neuro oriented x3, CN's II-XII intact bilaterally and no sensory deficits noted Sensorium / Orientation: alert Motor Exam: strength 5/5 throughout Psych mental status grossly normal Skin no rashes or lesions noted and no wounds General Skin Exam: Negative for jaundice or pallor MDM MDM MDM Narrative Medical decision making narrative: Patient arrived to the ER with stable vitals. She reported a right sided abdominal/flank pain. She was seen roughly 2 days ago and had a CT scan confirming a right sided 2 mm stone. At this time with known stone I do not feel there is need for repeat imaging. However in order to ensure that she has not developed a UTI or acute kidney injury or urosepsis I did elect to perform basic laboratory studies with urine sample. Urine sample as she shows improvement from the previous day indicating her antibiotic is working and therefore she does not have UTI/urosepsis or pyelonephritis. Her creatinine has remained stable and normal as well going against GABBY. She was treated with Toradol morphine upon arrival which did help but not greatly and therefore Dilaudid was added. On repeat evaluation she now reports resolution of her pain. Therefore as the patient is not uroseptic or displaying acute kidney injury or showing signs of intractable pain there is no need for further workup and she is otherwise safe for discharge. As she was placed on Adel for home initially but this was not controlling symptoms I will change her to Percocet for improved pain control History & Record Review Discussion w/independent historian: Patient Lab Data Attestation: I reviewed the patient's lab results. Labs: Laboratory Results - last 24 hr 09/12/24 09/12/24 22:13 22:18 WBC 11.9 H RBC 4.66 Hgb 12.2 Hct 38.2 MCV 82.0 MCH 26.2 L MCHC 31.9 L RDW Std Deviation 43.4 RDW Coeff of Silvia 14.6 Plt Count 353 MPV 10.2 Immature Gran % (Auto) 0.500 Neut % (Auto) 64.1 Lymph % (Auto) 25.0 Barber % (Auto) 7.2 Eos % (Auto) 2.8 Baso % (Auto) 0.4 Absolute Neuts (auto) 7.7 Absolute Lymphs (auto) 2.99 Nucleated RBC % 0 Sodium 135 Potassium 4.3 Chloride 99 Carbon Dioxide 22.5 Anion Gap 13 BUN 10 Creatinine 0.56 L Estim Creat Clear Calc 286.58 H Est GFR (MDRD) Non-Af 128 BUN/Creatinine Ratio 17.4 Glucose 273 H Calcium 9.7 Urine Color Yellow Urine Clarity Clear Urine pH 6.0 Ur Specific [place] 1.015 Urine Protein Negative Urine Glucose (UA) 1000 H Urine Ketones Negative Urine Occult Blood 25 H Urine Nitrite Negative Urine Bilirubin Negative Urine Urobilinogen Normal Ur Leukocyte Esterase 25 H Urine RBC 5-10 SEEN Urine WBC 5-10 SEEN Ur Squamous Epith Cells 0-5 SEEN Urine Bacteria RARE Urine Mucus 0 SEEN Discharge Plan Triage Chief Complaint: Flank Pain Other Complaint: Edema ED Provider: Sudarshan Angelo Dx/Rx/DC Orders Clinical Impression: Kidney stone on right side, Renal colic, GERD (gastroesophageal reflux disease), Morbid obesity with BMI of 60.0-69.9, adult, Diabetes, Bipolar 1 disorder Instructions: ED Kidney Stone with Pain Prescriptions: New oxycodone 5 mg tablet 5 mg PO Q6H PRN (Reason: pain) 3 Days Qty: 12 0RF tamsulosin [Flomax] 0.4 mg capsule 0.4 mg PO DAILY 14 Days Qty: 14 0RF No Action cholecalciferol (vitamin D3) 125 MCG capsule 125 mcg PO DAILY epinephrine 0.3 MG syringe 0.3 mg IM X1 PRN (Reason: Anaphylaxis) Qty: 1 0RF albuterol sulfate 2.5 mg /3 mL (0.083 %) solution for nebulization 2.5 mg inhalation PRN PRN (Reason: ASTHMA) Patient Comments: INHALE 1 VIAL VIA NEBULIZER EVERY 6 HOURS NEEDED FOR SHORTNESS OF BREATH AND WHEEZING lisinopril 5 mg tablet 5 mg PO DAILY Patient Comments: TAKE 1 TABLET BY MOUTH ONCE DAILY atorvastatin 10 mg tablet 10 mg PO QHS Patient Comments: TAKE 1 TABLET BY MOUTH ONCE DAILY AT BEDTIME FOR CHOLESTEROL hydroxyzine HCl 50 mg Tablet 50 mg PO BID PRN PRN (Reason: Anxiety) albuterol sulfate 90 mcg/actuation HFA aerosol inhaler 2 puff INHALATION PRN PRN (Reason: ASTHMA) Qty: 6.7 0RF albuterol sulfate 2.5 mg /3 mL (0.083 %) solution for nebulization 2.5 mg inhalation Q6H PRN (Reason: shortness of breath or wheezing) Qty: 75 0RF hydrocodone-acetaminophen 5-325 mg tablet 1 tab PO Q4H PRN PRN (Reason: Pain) 2 Days Qty: 10 0RF sulfamethoxazole-trimethoprim 800-160 mg tablet 1 tab PO BID Qty: 6 0RF ondansetron 4 mg tablet,disintegrating 4 mg PO Q8H PRN PRN (Reason: Nausea) Qty: 10 0RF naproxen 500 mg tablet 500 mg PO BID Qty: 14 0RF gabapentin 400 mg capsule 400 mg PO BID norethindrone ac-eth estradiol [Microgestin 1.5 (21)] 1.5-30 mg-mcg tablet 1 tab PO DAILY clotrimazole 1 % cream topical BID buspirone 15 mg tablet 15 mg PO BID insulin glargine [Lantus Solostar U-100 Insulin] 100 unit/mL (3 mL) insulin pen 72 unit subcut DAILY (DME) FreeStyle Guerrero 3 Sensor Device MISCELLANEOUS QWEEK (DME) pen needle, diabetic [BD Evy 2nd Gen Pen Needle] 32 gauge x 5/32 needle MISCELLANEOUS DAILY Rexulti 3 mg tablet 3 mg PO DAILY trazodone 100 mg tablet 200 mg PO QHS norethindrone ac-eth estradiol [Microgestin 06/27 ()] 1-20 mg-mcg tablet 1 tab PO DAILY prazosin 2 mg capsule 2 mg PO QHS guanfacine [Intuniv ER] 3 mg tablet extended release 24 hr 3 mg PO DAILY metoprolol succinate 50 mg tablet extended release 24 hr 75 mg PO DAILY metformin 500 mg tablet extended release 24 hr 1,000 mg PO BID lamotrigine 100 mg tablet 100 mg PO QHS aripiprazole 20 mg tablet 20 mg PO QHS fenofibrate nanocrystallized 48 mg tablet 48 mg PO DAILY Slow Release Iron 140 mg (45 mg iron) tablet extended release 140 mg PO DAILY Rexuti Primary Care Provider: Miguelito Unger Referrals: Nella Watson MD [Med Staff - Active Staff] - Miguelito Unger MD [Primary Care Provider] - Activity Restrictions/Additional Instructions: Please stop the hydrocodone and begin taking the oxycodone for improved pain control. Follow-up with urology for repeat evaluation and return to the ER if you develop a fever of 100.4 or higher have intractable pain despite taking your medication. Print Language: Malay Disposition Disposition: Home, Self Care Discharge Date/Time: 09/13/24 00:52
[2024-09-12 22:30] LABS: Mucous, Urine 0 SEEN /hpf (<or=2+)
[2024-09-12 22:31] LABS: Absolute Lymphocyte Count 2.99 X10^3/uL (0.83-4.51); Absolute Neutrophil Count 7.7 X10^3/uL (2.0-7.7); Basophil# 0.05 X10^3/uL; Basophil% 0.4 % (0-1); Eosinophil# 0.33 X10^3/uL; Eosinophils% 2.8 % (0-5); Hematocrit 38.2 % (37-47); Hemoglobin 12.2 g/dL (12.0-15.0); Lymphocyte # 2.99 X10^3/ul (0.83-4.51); Mean Corp Hgb Conc 31.9 g/dL (32-36); Mean Corpuscular Hgb 26.2 pg (27.0-32.0); Mean Platelet Vol. 10.2 fl (6.2-12.0); Monocyte# 0.86 X10^3/uL; Monocyte% 7.2 % (0-10); NRBC Flagged by Analyzer 0 % (0-5); Neutrophil # 7.65 X10^3/uL (2.7-7.7); Neutrophil % 64.1 % (47-70); Platelet Count 353 K/mm3 (150-450); RBC Distribution Width CV 14.6 % (11.6-14.6); RBC Distribution Width SD 43.4 fl (35.1-43.9); Red Blood Count 4.66 M/mm3 (4.2-5.4); White Blood Count 11.9 K/mm3 (4.4-11.0)
[2024-09-12 22:33] LABS: Color, Urine Yellow (Yellow); Glucose, Dipstick 1000 mg/dl (Normal); Ketone-Dipstick Negative (Negative); Leukocyte Esterase-Dipstick 25 /ul (Negative); Nitrite-Dipstick Negative (Negative); Occult Blood-Urine 25 /ul (Negative); Protein-Dipstick Negative (Negative); Specific Gravity, Urine 1.015 (1.002-1.030); Urine Bilirubin Dipstick Negative (Negative); Urine Clarity Clear (Clear); Urine Urobilinogen Normal (Normal)
[2024-09-12 22:42] LABS: Bacteria RARE /hpf (None Seen); Red Blood Cells-Urine 5-10 SEEN /hpf (0-5); Squamous Epithelial Cells - UA 0-5 SEEN /hpf (5-10); White Blood Cells 5-10 SEEN /hpf (0-5)
[2024-09-12 22:56] LABS: Anion Gap 13 (5-15); BUN 10 mg/dL (4-19); BUN/Creat Ratio 17.4 RATIO (10-20); Calcium,Total 9.7 mg/dL (7.6-11.0); Carbon Dioxide 22.5 mmol/L (21.0-32.0); Chloride 99 mmol/L (98-108); Creatinine, Serum 0.56 mg/dL (0.70-1.20); EST Glomerular Filtration Rate 128 (>60); Estimated Creatinine Clearance 286.58 ml/min (50-250); Glucose 273 mg/dL (70-99); Potassium 4.3 mmol/L (3.3-5.1); Sodium Level 135 mmol/L (133-145)
[2024-09-12] MEDS: HYDROmorphone 1 MG/ML Syringe IV (23:50)
[2024-09-12 23:52] VITALS: BP 115/40; PULSE 72; RESP 20; O2SAT 97
[2024-09-13 00:35] VITALS: BP 156/82; PULSE 81; RESP 18; TEMP 36.8; O2SAT 96
[2024-09-13] MEDS: oxyCODONE 5 MG Tablet 10 MG PO (00:50)
== END 2024-09-13 00:52 | disposition home or self-care (01) ==
PROVIDERS: Emergency Provider Emergency Medicine; PCP Family Medicine; Visit Provider Emergency Medicine
DX: N20.0 Calculus of kidney (principal); F31.9 Bipolar disorder, unspecified; E66.01 Morbid (severe) obesity due to excess calories; Z68.44 Body mass index [BMI] 60.0-69.9, adult; E11.9 Type 2 diabetes mellitus without complications; Z79.4 Long term (current) use of insulin; E28.2 Polycystic ovarian syndrome; E78.1 Pure hyperglyceridemia; D64.9 Anemia, unspecified; K21.9 Gastro-esophageal reflux disease without esophagitis; M81.0 Age-related osteoporosis without current pathological fracture; F41.9 Anxiety disorder, unspecified; F90.9 Attention-deficit hyperactivity disorder, unspecified type; G47.33 Obstructive sleep apnea (adult) (pediatric); J45.909 Unspecified asthma, uncomplicated; Z88.0 Allergy status to penicillin; Z87.442 Personal history of urinary calculi; Z90.49 Acquired absence of other specified parts of digestive tract; Z79.84 Long term (current) use of oral hypoglycemic drugs; Z79.899 Other long term (current) drug therapy
CPT/HCPCS: 80048; 81001; 85025; 96361; 96374; 96375; 99284; A4216; J2405

== ENCOUNTER 2024-09-15 07:36 | Observation (INO) | payer MEDICARE, MEDICAID, SELFPAY ==
[2024-09-15 07:37] VITALS: BP 138/101; PULSE 100; RESP 18; TEMP 36.7; O2SAT 96; BMI 65.5
--- NOTE | 2024-09-15 07:55 | ED.VIS.FEGU ---
HPI HPI - Female History of Present Illness Chief Complaint: Flank Pain Narrative Narrative: Chief complaint and HPI: Right flank pain. 29-year-old female with past medical history of PCOS, GERD, MAXIMILIAN, bipolar, DM2 presents for evaluation of right flank pain. This is patient's third visit for the same symptom. On chart review, she was originally seen on 09/10 and diagnosed with a 2 mm urolithiasis. Patient has completed her Bactrim. She has called urology for follow-up but is yet to receive a call back. Patient states since diagnosis of the stone, she has been having intermittent right flank pain. She was seen again in our emergency department on 09/12 for this complaint. She had laboratory workup that was unremarkable, pain was controlled, and she was discharged home with the change in her pain medication. Patient states that she has been taking double the amount of pain medicine since discharge and has continued to have pain. She states she has mild nausea which she thinks is secondary to the pain. She denies any fever, chills, chest pain, shortness of breath, emesis, dysuria, hematuria diarrhea, constipation. Review of systems: See HPI Medications: As listed on the chart Allergies: As listed on the chart PFSH: Per chart Vital signs: As listed on the chart. Reviewed. 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 Abscess of left thigh Morbid obesity with BMI of 60.0-69.9, adult Osteoporosis GERD (gastroesophageal reflux disease) CPAP (continuous positive airway pressure) dependence Sleep apnea Proteinuria due to type 2 diabetes mellitus Obesity Hypertriglyceridemia Diabetes Anxiety disorder, unspecified ADHD Bipolar 1 disorder Herniated disc Cancer Depression History of steroid therapy Walker as ambulation aid Arthritis Kidney stones Anemia Injury of back Injury of head and neck Dietary restriction Gastric reflux Non-smoker History of pain when walking History of echocardiogram Cardiology follow-up encounter History of irregular heartbeat Abner's disease Cancer Diabetes Obesity GERD (gastroesophageal reflux disease) Ovarian cyst Asthma PCOS (polycystic ovarian syndrome) Home Medications ?Medication ?Instructions ?Recorded ?Last Taken ?Type cholecalciferol (vitamin D3) 125 125 mcg PO DAILY supplement 05/17/19 01/24/21 08:00 History mcg (5,000 unit) capsule epinephrine 0.3 mg/0.3 mL 0.3 mg (0.3 mL) IM X1 PRN 05/14/20 01/30/21 08:00 Rx injection, auto-injector Anaphylaxis ##1 albuterol sulfate 2.5 mg/3 mL 2.5 mg inhalation PRN PRN ASTHMA 01/25/21 01/30/21 08:00 History (0.083 %) solution for nebulization lisinopril 5 mg tablet 5 mg PO DAILY 01/25/21 01/30/21 08:00 History atorvastatin 10 mg tablet 10 mg PO QHS 08/07/22 Unknown History hydroxyzine HCl 50 mg tablet 50 mg PO BID PRN PRN Anxiety 08/20/22 Unknown History albuterol sulfate 90 mcg/actuation 2 puff inhalation PRN PRN ASTHMA 10/22/22 Unknown Rx aerosol inhaler #6.7 grams albuterol sulfate 2.5 mg/3 mL 2.5 mg (3 mL) inhalation Q6H PRN 03/26/23 Unknown Rx (0.083 %) solution for nebulization shortness of breath or wheezing #75 mL guanfacine 3 mg tablet,extended 3 mg PO DAILY 01/05/24 Unknown History release 24 hr (Intuniv ER) norethindrone acetate 1 mg-ethinyl 1 tab PO DAILY 01/05/24 Unknown History estradiol 20 mcg tablet (Microgestin) prazosin 2 mg capsule 2 mg PO QHS 01/05/24 Unknown History trazodone 100 mg tablet 200 mg PO QHS 01/05/24 Unknown History aripiprazole 20 mg tablet 20 mg PO QHS 05/21/24 Unknown History fenofibrate nanocrystallized 48 mg 48 mg PO DAILY 05/21/24 Unknown History tablet ferrous sulfate 140 mg (45 mg 140 mg PO DAILY 05/21/24 Unknown History iron) tablet,extended release (Slow Release Iron) lamotrigine 100 mg tablet 100 mg PO QHS 05/21/24 Unknown History metformin 500 mg tablet,extended 1,000 mg PO BID 05/21/24 Unknown History release 24 hr metoprolol succinate 50 mg 75 mg PO DAILY 05/21/24 Unknown History tablet,extended release 24 hr Rexuti 08/10/24 Unknown History blood-glucose sensor (FreeStyle 09/10/24 Unknown History Guerrero 3 Sensor device) brexpiprazole 3 mg tablet (Rexulti) 3 mg PO DAILY 09/10/24 Unknown History buspirone 15 mg tablet 15 mg PO BID 09/10/24 Unknown History clotrimazole 1 % topical cream applic topical BID 09/10/24 Unknown History gabapentin 400 mg capsule 400 mg PO BID 09/10/24 Unknown History hydrocodone-acetaminophen 5-325mg 1 tab PO Q4H PRN PRN Pain 2 days 09/10/24 Unknown Rx 5mg-325mg #10 TABLETS insulin glargine 100 unit/mL (3 72 unit subcut DAILY 09/10/24 Unknown History mL) subcutaneous pen (Lantus Solostar U-100 Insulin) naproxen 500 mg tablet 500 mg PO BID #14 tabs 09/10/24 Unknown Rx norethindrone acetate 1.5 1 tab PO DAILY 09/10/24 Unknown History mg-ethinyl estradiol 30 mcg tablet (Microgestin) ondansetron 4 mg disintegrating 4 mg PO Q8H PRN PRN Nausea #10 tabs 09/10/24 Unknown Rx tablet pen needle, diabetic 32 gauge x 09/10/24 Unknown History (BD Evy 2nd Gen Pen Needle) sulfamethoxazole 800 1 tab PO BID #6 TABLETS 09/10/24 Unknown Rx mg-trimethoprim 160 mg tablet oxycodone 5 mg tablet 5 mg PO Q6H PRN pain 3 days #12 09/13/24 Unknown Rx tabs tamsulosin 0.4 mg capsule (Flomax) 0.4 mg PO DAILY 14 days #14 caps 09/13/24 Unknown Rx Allergy/AdvReac Type Severity Reaction Status Date / Time nitrofurantoin (From Allergy Intermediate rash Verified 09/12/24 20:10 Macrobid) penicillin V potassium (From Allergy Mild Rash Verified 09/12/24 20:10 Pen-Vee K) adhesive tape (plastic tape) Allergy Rash Verified 09/12/24 20:10 brompheniramine maleate Allergy Shortness Verified 09/12/24 20:10 (From Dimetapp of breath (brompheniramine-PPA)) celery Allergy Swelling Verified 09/12/24 20:10 phenylpropanolamine HCl Allergy Shortness Verified 09/12/24 20:10 (From Dimetapp of breath (brompheniramine-PPA)) amoxicillin trihydrate (From AdvReac Intermediate Diarrhea Verified 09/12/24 20:10 Augmentin) potassium clavulanate (From AdvReac Intermediate Diarrhea Verified 09/12/24 20:10 Augmentin) dicyclomine HCl (From Bentyl) AdvReac Nausea/Vom/ Verified 09/12/24 20:10 Diarrhea fructose AdvReac Nausea/Vom/ Verified 09/12/24 20:10 Diarrhea sertraline (From Zoloft) AdvReac Other Verified 09/12/24 20:10 Family History Father Diabetes Mother Hypertension Grandmother Breast cancer 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 H/O partial adrenalectomy History of back surgery History of adrenal surgery H/O oophorectomy H/O endoscopy History of tonsillectomy and adenoidectomy H/O wisdom tooth extraction H/O ovarian cystectomy Hx of cholecystectomy Social History household members: family Smoking Status: Never smoker alcohol intake: current alcohol intake frequency: a few times a month substance use type: does not use seatbelt use: always do you feel safe at home: Yes EXAM Physical Exam Const Vital Signs: 09/15/24 07:37 09/15/24 09:42 09/15/24 11:12 Temperature 98.1 F Temperature Source Oral Pulse Rate 100 94 Respiratory Rate 18 21 H Blood Pressure 138/101 H 146/75 H Blood Pressure Mean 113 98 Pulse Ox 96 97 Oxygen Delivery Method Room Air MDM MDM MDM Narrative Medical decision making narrative: 29-year-old female with past differential diagnosis includes medical history of PCOS, GERD, MAXIMILIAN, bipolar, DM2 presents for evaluation of right flank pain. Patient has known 2 mm right urolithiasis. Differential diagnosis includes but is not limited to urolithiasis, hydronephrosis, electrolyte abnormality, GABBY, UTI, pyelonephritis. NS bolus, Toradol, Zofran ordered for symptoms. Laboratory workup ordered including CT abdomen pelvis without contrast. Patient had a negative test on 09/10. She denies any sexual activity since then. CBC without leukocytosis. Patient has mild anemia of 11.4. BMP unremarkable without significant electrolyte abnormality or GABBY. Patient does have hyperglycemia of 270. She is a known diabetic. CT abdomen pelvis shows 2 mm obstructing calculus at the proximal right ureter resulting in mild hydronephrosis, unchanged from previous CT abdomen pelvis on 09/10. Hepatomegaly with fatty infiltration. On reexamination, patient is still having pain. Morphine and another NS bolus ordered. Patient is yet to urinate. Urine positive for UTI. Previous culture on 09/10/2024 grew out E. coli and Klebsiella pneumonia. Both sensitive to Levaquin. Levaquin ordered given patient's allergy list. Reevaluation, patient is still endorsing pain. Given that patient has recurrent UTI with continued proximal ureteral stone and continued pain, urology was consulted. Patient was discussed with Dr. Forbes who accepted admission with plan for lithotripsy tomorrow. Patient was updated with result confirmed understanding the plan. Impression: 1. Right 2 mm proximal urolithiasis with mild hydronephrosis 2. UTI Lab Data Labs: Laboratory Results - last 24 hr 09/15/24 09/15/24 08:00 09:50 WBC 8.2 RBC 4.29 Hgb 11.4 L Hct 35.9 L MCV 83.7 MCH 26.6 L MCHC 31.8 L RDW Std Deviation 44.0 H RDW Coeff of Silvia 14.5 Plt Count 286 MPV 10.6 Immature Gran % (Auto) 0.600 Neut % (Auto) 64.0 Lymph % (Auto) 23.3 [place] % (Auto) 8.9 Eos % (Auto) 2.7 Baso % (Auto) 0.5 Absolute Neuts (auto) 5.3 Absolute Lymphs (auto) 1.92 Nucleated RBC % 0 Sodium 135 Potassium 4.4 Chloride 102 Carbon Dioxide 21.6 Anion Gap 12 BUN 8 Creatinine 0.49 L Estim Creat Clear Calc 317.28 H Est GFR (MDRD) Non-Af 132 BUN/Creatinine Ratio 17.2 Glucose 270 H Calcium 9.2 Urine Color Yellow Urine Clarity Clear Urine pH 6.0 Ur Specific [place] 1.020 Urine Protein 30 H Urine Glucose (UA) 1000 H Urine Ketones Negative Urine Occult Blood 150 H Urine Nitrite Negative Urine Bilirubin Negative Urine Urobilinogen Normal Ur Leukocyte Esterase 100 H Urine RBC 5-10 SEEN Urine WBC 25-50 SEEN Ur Squamous Epith Cells 5-10 SEEN Urine Bacteria 2+ Urine Mucus 0 SEEN Urine Yeast 1+ Radiography Diagnostic Testing: Clinical Impression(s) from Imaging Studies Abdomen/Pelvis CT 09/15/24 09:08 IMPRESSION: 1. 2 mm obstructing calculus of the proximal right ureter resulting in mild hydronephrosis, unchanged. 2. Hepatomegaly with fatty infiltration. Reading [facility] Discharge Plan Triage Chief Complaint: Flank Pain ED Provider: Sarbjit Murray Dx/Rx/DC Orders Prescriptions: No Action cholecalciferol (vitamin D3) 125 MCG capsule 125 mcg PO DAILY epinephrine 0.3 MG syringe 0.3 mg IM X1 PRN (Reason: Anaphylaxis) Qty: 1 0RF albuterol sulfate 2.5 mg /3 mL (0.083 %) solution for nebulization 2.5 mg inhalation PRN PRN (Reason: ASTHMA) Patient Comments: INHALE 1 VIAL VIA NEBULIZER EVERY 6 HOURS NEEDED FOR SHORTNESS OF BREATH AND WHEEZING lisinopril 5 mg tablet 5 mg PO DAILY Patient Comments: TAKE 1 TABLET BY MOUTH ONCE DAILY atorvastatin 10 mg tablet 10 mg PO QHS Patient Comments: TAKE 1 TABLET BY MOUTH ONCE DAILY AT BEDTIME FOR CHOLESTEROL hydroxyzine HCl 50 mg Tablet 50 mg PO BID PRN PRN (Reason: Anxiety) albuterol sulfate 90 mcg/actuation HFA aerosol inhaler 2 puff INHALATION PRN PRN (Reason: ASTHMA) Qty: 6.7 0RF albuterol sulfate 2.5 mg /3 mL (0.083 %) solution for nebulization 2.5 mg inhalation Q6H PRN (Reason: shortness of breath or wheezing) Qty: 75 0RF hydrocodone-acetaminophen 5-325 mg tablet 1 tab PO Q4H PRN PRN (Reason: Pain) 2 Days Qty: 10 0RF sulfamethoxazole-trimethoprim 800-160 mg tablet 1 tab PO BID Qty: 6 0RF ondansetron 4 mg tablet,disintegrating 4 mg PO Q8H PRN PRN (Reason: Nausea) Qty: 10 0RF naproxen 500 mg tablet 500 mg PO BID Qty: 14 0RF gabapentin 400 mg capsule 400 mg PO BID norethindrone ac-eth estradiol [Microgestin 1.5 ()] 1.5-30 mg-mcg tablet 1 tab PO DAILY clotrimazole 1 % cream topical BID buspirone 15 mg tablet 15 mg PO BID insulin glargine [Lantus Solostar U-100 Insulin] 100 unit/mL (3 mL) insulin pen 72 unit subcut DAILY (DME) FreeStyle Guerrero 3 Sensor Device MISCELLANEOUS QWEEK (DME) pen needle, diabetic [BD Evy 2nd Gen Pen Needle] 32 gauge x 5/32 needle MISCELLANEOUS DAILY Rexulti 3 mg tablet 3 mg PO DAILY oxycodone 5 mg tablet 5 mg PO Q6H PRN (Reason: pain) 3 Days Qty: 12 0RF tamsulosin [Flomax] 0.4 mg capsule 0.4 mg PO DAILY 14 Days Qty: 14 0RF trazodone 100 mg tablet 200 mg PO QHS norethindrone ac-eth estradiol [Microgestin 06/27 ()] 1-20 mg-mcg tablet 1 tab PO DAILY prazosin 2 mg capsule 2 mg PO QHS guanfacine [Intuniv ER] 3 mg tablet extended release 24 hr 3 mg PO DAILY metoprolol succinate 50 mg tablet extended release 24 hr 75 mg PO DAILY metformin 500 mg tablet extended release 24 hr 1,000 mg PO BID lamotrigine 100 mg tablet 100 mg PO QHS aripiprazole 20 mg tablet 20 mg PO QHS fenofibrate nanocrystallized 48 mg tablet 48 mg PO DAILY Slow Release Iron 140 mg (45 mg iron) tablet extended release 140 mg PO DAILY Rexuti Primary Care Provider: Miguelito Unger Referrals: Miguelito Unger MD [Primary Care Provider] - Print Language: [place]
[2024-09-15 08:19] LABS: Absolute Lymphocyte Count 1.92 X10^3/uL (0.83-4.51); Absolute Neutrophil Count 5.3 X10^3/uL (2.0-7.7); Basophil# 0.04 X10^3/uL; Basophil% 0.5 % (0-1); Eosinophil# 0.22 X10^3/uL; Eosinophils% 2.7 % (0-5); Hematocrit 35.9 % (37-47); Hemoglobin 11.4 g/dL (12.0-15.0); Lymphocyte # 1.92 X10^3/ul (0.83-4.51); Lymphocyte % 23.3 % (19-41); Mean Corp Hgb Conc 31.8 g/dL (32-36); Mean Corpuscular Hgb 26.6 pg (27.0-32.0); Mean Corpuscular Volume 83.7 fL (81-99); Mean Platelet Vol. 10.6 fl (6.2-12.0); Monocyte# 0.73 X10^3/uL; Monocyte% 8.9 % (0-10); NRBC Flagged by Analyzer 0 % (0-5); Neutrophil # 5.27 X10^3/uL (2.7-7.7); Platelet Count 286 K/mm3 (150-450); RBC Distribution Width CV 14.5 % (11.6-14.6); Red Blood Count 4.29 M/mm3 (4.2-5.4); White Blood Count 8.2 K/mm3 (4.4-11.0)
[2024-09-15] MEDS: 0.9% Normal Saline (1000mL) 1,000 ML 999 ML IV ×2 (08:20→10:21)
[2024-09-15] MEDS: Ketorolac 30 MG/ML Syringe IV (08:20)
[2024-09-15] MEDS: Ondansetron 4 MG/2 ML Vial IV ×2 (08:20→18:15)
[2024-09-15 08:31] LABS: Anion Gap 12 (5-15); BUN 8 mg/dL (4-19); BUN/Creat Ratio 17.2 RATIO (10-20); Calcium,Total 9.2 mg/dL (7.6-11.0); Carbon Dioxide 21.6 mmol/L (21.0-32.0); Chloride 102 mmol/L (98-108); Creatinine, Serum 0.49 mg/dL (0.70-1.20); EST Glomerular Filtration Rate 132 (>60); Estimated Creatinine Clearance 317.28 ml/min (50-250); Glucose 270 mg/dL (70-99); Potassium 4.4 mmol/L (3.3-5.1); Sodium Level 135 mmol/L (133-145)
--- NOTE | 2024-09-15 09:08 | CT_ITS ---
EXAM: CT Abdomen and Pelvis Without Intravenous Contrast CLINICAL INDICATION: PAIN TECHNIQUE: Axial computed tomography images of the abdomen and pelvis without intravenous contrast. This CT exam was performed using one or more of the following dose reduction techniques: automated exposure control, adjustment of the mA and/or kV according to patient size, and/or use of iterative reconstruction technique. COMPARISON: CT Abdomen Pelvis dated 09/10/2024 FINDINGS: LUNG BASES: Unremarkable. No mass. No consolidation. ABDOMEN: LIVER: Hepatomegaly with fatty infiltration. GALLBLADDER AND BILE DUCTS: Cholecystectomy. No ductal dilation. PANCREAS: Unremarkable. No ductal dilation. SPLEEN: Unremarkable. No splenomegaly. ADRENALS: Unremarkable. No mass. KIDNEYS AND URETERS: 2 mm obstructing calculus of the proximal right ureter resulting in mild hydronephrosis, unchanged. STOMACH AND BOWEL: Unremarkable. No obstruction. No mucosal thickening. PELVIS: APPENDIX: No findings to suggest acute appendicitis. BLADDER: Unremarkable. No stones. REPRODUCTIVE: Unremarkable as visualized. ABDOMEN and PELVIS: INTRAPERITONEAL SPACE: Unremarkable. No free air. No significant fluid collection. BONES/JOINTS: No acute fracture. No dislocation. SOFT TISSUES: Unremarkable. VASCULATURE: Unremarkable. No abdominal aortic aneurysm. LYMPH NODES: Unremarkable. No enlarged lymph nodes. CT/Abdomen/Pelvis without Cont IMPRESSION: 1. 2 mm obstructing calculus of the proximal right ureter resulting in mild hy dronephrosis, unchanged. 2. Hepatomegaly with fatty infiltration. Reading Location: [facility]
[2024-09-15 09:42] VITALS: PULSE 94; RESP 21; O2SAT 97
[2024-09-15] MEDS: Morphine 4 MG/ML Syringe IV (10:21)
[2024-09-15 10:47] LABS: Mucous, Urine 0 SEEN /hpf (<or=2+)
[2024-09-15 10:55] LABS: Color, Urine Yellow (Yellow); Glucose, Dipstick 1000 mg/dl (Normal); Ketone-Dipstick Negative (Negative); Leukocyte Esterase-Dipstick 100 /ul (Negative); Nitrite-Dipstick Negative (Negative); Occult Blood-Urine 150 /ul (Negative); Protein-Dipstick 30 mg/dl (Negative); Urine Bilirubin Dipstick Negative (Negative); Urine Clarity Clear (Clear); Urine Urobilinogen Normal (Normal)
[2024-09-15 11:12] VITALS: BP 146/75
[2024-09-15 11:36] LABS: White Blood Cells 25-50 SEEN /hpf (0-5)
[2024-09-15 11:37] LABS: Red Blood Cells-Urine 5-10 SEEN /hpf (0-5)
[2024-09-15 11:38] LABS: Bacteria 2+ /hpf (None Seen); Squamous Epithelial Cells - UA 5-10 SEEN /hpf (5-10); Yeast-Urine 1+ /hpf (None Seen)
[2024-09-15] MEDS: levoFLOXacin IV 750 MG/150 ML BAG 100 MG IV (12:38)
[2024-09-15 13:07] VITALS: BMI 68.1
--- NOTE | 2024-09-15 13:34 | PCM.HP.STD ---
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 Abscess of left thigh Morbid obesity with BMI of 60.0-69.9, adult Osteoporosis GERD (gastroesophageal reflux disease) CPAP (continuous positive airway pressure) dependence Sleep apnea Proteinuria due to type 2 diabetes mellitus Obesity Hypertriglyceridemia Diabetes Anxiety disorder, unspecified ADHD Bipolar 1 disorder Herniated disc Cancer Depression History of steroid therapy Walker as ambulation aid Arthritis Kidney stones Anemia Injury of back Injury of head and neck Dietary restriction Gastric reflux Non-smoker History of pain when walking History of echocardiogram Cardiology follow-up encounter History of irregular heartbeat Abner's disease Cancer Diabetes Obesity GERD (gastroesophageal reflux disease) Ovarian cyst Asthma PCOS (polycystic ovarian syndrome) Home Medications ?Medication ?Instructions ?Recorded ?Last Taken ?Type cholecalciferol (vitamin D3) 125 125 mcg PO DAILY supplement 05/17/19 01/24/21 08:00 History mcg (5,000 unit) capsule epinephrine 0.3 mg/0.3 mL 0.3 mg (0.3 mL) IM X1 PRN 05/14/20 01/30/21 08:00 Rx injection, auto-injector Anaphylaxis ##1 albuterol sulfate 2.5 mg/3 mL 2.5 mg inhalation PRN PRN ASTHMA 01/25/21 01/30/21 08:00 History (0.083 %) solution for nebulization lisinopril 5 mg tablet 5 mg PO DAILY 01/25/21 01/30/21 08:00 History atorvastatin 10 mg tablet 10 mg PO QHS 08/07/22 Unknown History guanfacine 3 mg tablet,extended 3 mg PO DAILY 01/05/24 Unknown History release 24 hr (Intuniv ER) Held on 09/15/24. Instructions: Ordered prazosin 2 mg capsule 2 mg PO QHS 01/05/24 Unknown History trazodone 100 mg tablet 200 mg PO QHS 01/05/24 Unknown History fenofibrate nanocrystallized 48 mg 48 mg PO DAILY 12/14/24 Unknown History tablet ferrous sulfate 140 mg (45 mg 140 mg PO DAILY 05/21/24 Unknown History iron) tablet,extended release (Slow Release Iron) lamotrigine 100 mg tablet 100 mg PO QHS 05/21/24 Unknown History metformin 500 mg tablet,extended 2,000 mg PO QHS DM 05/21/24 09/14/24 History release 24 hr metoprolol succinate 50 mg 75 mg PO DAILY 05/21/24 Unknown History tablet,extended release 24 hr Rexuti 08/10/24 Unknown History blood-glucose sensor (FreeStyle 09/10/24 Unknown History Guerrero 3 Sensor device) brexpiprazole 3 mg tablet (Rexulti) 3 mg PO DAILY 09/10/24 Unknown History buspirone 15 mg tablet 15 mg PO BID 09/10/24 Unknown History clotrimazole 1 % topical cream 1 applic topical BID 09/10/24 Unknown History gabapentin 400 mg capsule 400 mg PO BID 09/10/24 Unknown History insulin glargine 100 unit/mL (3 72 unit subcut DAILY 09/10/24 Unknown History mL) subcutaneous pen (Lantus Solostar U-100 Insulin) naproxen 500 mg tablet 500 mg PO BID #14 tabs 09/10/24 Unknown Rx norethindrone acetate 1.5 1 tab PO DAILY 09/10/24 Unknown History mg-ethinyl estradiol 30 mcg tablet (Microgestin) ondansetron 4 mg disintegrating 4 mg PO Q8H PRN PRN Nausea #10 tabs 09/10/24 Unknown Rx tablet pen needle, diabetic 32 gauge x 09/10/24 Unknown History (BD Evy 2nd Gen Pen Needle) oxycodone 5 mg tablet 5 mg PO Q6H PRN pain 3 days #12 09/13/24 Unknown Rx tabs tamsulosin 0.4 mg capsule (Flomax) 0.4 mg PO DAILY 14 days #14 caps 09/13/24 Unknown Rx Allergy/AdvReac Type Severity Reaction Status Date / Time nitrofurantoin (From Allergy Intermediate rash Verified 09/12/24 20:10 Macrobid) penicillin V potassium (From Allergy Mild Rash Verified 09/12/24 20:10 Pen-Vee K) adhesive tape (plastic tape) Allergy Rash Verified 09/12/24 20:10 brompheniramine maleate Allergy Shortness Verified 09/12/24 20:10 (From Dimetapp of breath (brompheniramine-PPA)) celery Allergy Swelling Verified 09/12/24 20:10 phenylpropanolamine HCl Allergy Shortness Verified 09/12/24 20:10 (From Dimetapp of breath (brompheniramine-PPA)) amoxicillin trihydrate (From AdvReac Intermediate Diarrhea Verified 09/12/24 20:10 Augmentin) potassium clavulanate (From AdvReac Intermediate Diarrhea Verified 09/12/24 20:10 Augmentin) dicyclomine HCl (From Bentyl) AdvReac Nausea/Vom/ Verified 09/12/24 20:10 Diarrhea fructose AdvReac Nausea/Vom/ Verified 09/12/24 20:10 Diarrhea sertraline (From Zoloft) AdvReac Other Verified 09/12/24 20:10 Family History Father Diabetes Mother Hypertension Grandmother Breast cancer 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 H/O partial adrenalectomy History of back surgery History of adrenal surgery H/O oophorectomy H/O endoscopy History of tonsillectomy and adenoidectomy H/O wisdom tooth extraction H/O ovarian cystectomy Hx of cholecystectomy Social History household members: family Smoking Status: Never smoker alcohol intake: current alcohol intake frequency: a few times a month substance use type: does not use seatbelt use: always do you feel safe at home: Yes Vital Signs Vital Signs Vital Signs: 09/15/24 07:37 09/15/24 09:42 09/15/24 11:12 Temperature 98.1 F Temperature Source Oral Pulse Rate 100 94 Respiratory Rate 18 21 H Blood Pressure 138/101 H 146/75 H Blood Pressure Mean 113 98 Pulse Ox 96 97 Oxygen Delivery Method Room Air Weight Weight: 203.4 kg Body Mass Index (BMI) 68.1 Physical Exam Const alert and oriented x3 General Appearance: cooperative HEENT normocephalic, head/scalp atraumatic, EAC's normal and TM's normal bilaterally Eyes PERRL and EOMs intact bilaterally Pupil: sluggish Neck no lymphadenopathy, supple and no JVD General: trachea midline Lymph Lymphatic: no lymphadenopathy noted, lymphedema and lymphadenopathy Resp normal respiratory effort, normal air movement and clear to auscultation bilaterally Cardio regular rate, regular rhythm and peripheral pulses 2+ throughout GI soft to palpation, non-tender and non-distended Extremity normal capillary refill and no clubbing, cyanosis or edema General Extremity: no tenderness to palpation of joints or extremities Skin no rashes or lesions noted General Skin Exam: turgor normal Lesions: no lesions Rashes: no rashes Neuro CN's II-XII intact bilaterally Speech: speech normal Motor Exam: strength 5/5 throughout; Negative for general weakness Psych thought process normal, cooperative and affect normal Appearance: appropriate Results Lab / Micro Data 09/15/24 08:00 09/15/24 08:00 Labs: Laboratory Results - last 24 hr 09/15/24 08:00: WBC 8.2, RBC 4.29, Hgb 11.4 L, Hct 35.9 L, MCV 83.7, MCH 26.6 L, MCHC 31.8 L, RDW Std Deviation 44.0 H, RDW Coeff of Silvia 14.5, Plt Count 286, MPV 10.6, Immature Gran % (Auto) 0.600, Neut % (Auto) 64.0, Lymph % (Auto) 23.3, [place] % (Auto) 8.9, Eos % (Auto) 2.7, Baso % (Auto) 0.5, Absolute Neuts (auto) 5.3, Absolute Lymphs (auto) 1.92, Nucleated RBC % 0, Sodium 135, Potassium 4.4, Chloride 102, Carbon Dioxide 21.6, Anion Gap 12, BUN 8, Creatinine 0.49 L, Estim Creat Clear Calc 317.28 H, Est GFR (MDRD) Non-Af 132, BUN/Creatinine Ratio 17.2, Glucose 270 H, Calcium 9.2 09/15/24 09:50: Urine Color Yellow, Urine Clarity Clear, Urine pH 6.0, Ur Specific [place] 1.020, Urine Protein 30 H, Urine Glucose (UA) 1000 H, Urine Ketones Negative, Urine Occult Blood 150 H, Urine Nitrite Negative, Urine Bilirubin Negative, Urine Urobilinogen Normal, Ur Leukocyte Esterase 100 H, Urine RBC 5-10 SEEN, Urine WBC 25-50 SEEN, Ur Squamous Epith Cells 5-10 SEEN, Urine Bacteria 2+, Urine Mucus 0 SEEN, Urine Yeast 1+ Imaging Radiology Impression Abdomen/Pelvis CT 09/15/24 09:08 IMPRESSION: 1. 2 mm obstructing calculus of the proximal right ureter resulting in mild hydronephrosis, unchanged. 2. Hepatomegaly with fatty infiltration. [facility] Assessment & Plan Assessment/Plan (1) Kidney stone on right side: PLAN: Admit for pain control plan to take the surgery tomorrow for right ESWL
[2024-09-15] MEDS: Cefazolin 1 GM/50 ML BAG IV ×2 (15:01→21:55)
[2024-09-15] MEDS: Morphine 2 MG/ML Syringe IV (15:01)
[2024-09-15] MEDS: oxyCODONE 5 MG Tablet PO (16:07)
[2024-09-15] MEDS: HYDROmorphone 1 MG/ML Syringe IV ×2 (17:39→21:55)
[2024-09-15] MEDS: 0.9% Saline Lock 10 ML Syringe IV ×2 (17:40→18:15)
[2024-09-15 20:00] VITALS: O2SAT 98
[2024-09-15 21:53] VITALS: BP 114/77; PULSE 86; RESP 16; TEMP 36.6; O2SAT 98
[2024-09-15] MEDS: Gabapentin 400 MG Capsule PO (21:56)
[2024-09-15] MEDS: lamoTRIgine 100 MG Tablet PO (21:56)
[2024-09-15] MEDS: Atorvastatin Calcium 10 MG Tablet PO (21:56)
[2024-09-15] MEDS: busPIRone 15 MG TABLET PO (21:56)
[2024-09-15 21:57] VITALS: PULSE 86
[2024-09-15] MEDS: traZODone 100 MG Tablet 200 MG PO (21:57)
[2024-09-15] MEDS: Metoprolol(XL)Succ 25 MG Tablet 75 MG PO (21:57)
[2024-09-15] MEDS: Prazosin HCl 1 MG Capsule 2 MG PO (21:57)
[2024-09-15] MEDS: Docusate Sodium 100 MG Capsule 200 MG PO (21:57)
[2024-09-15] MEDS: Fenofibrate 48 MG Tablet PO (21:58)
[2024-09-15] MEDS: Lisinopril 5 MG Tablet PO (21:58)
[2024-09-15] MEDS: metFORMIN (XR) 500 MG Tablet 2000 MG PO (22:04)
[2024-09-15 22:31] LABS: Bedside Glucose 223 mg/dL (74-106)
[2024-09-16] VITALS (18 sets, daily range): BP systolic 118–173; BP diastolic 54–97; PULSE 78–104; RESP 16–24; TEMP 36.1–37.1; O2SAT 88–99; BMI 68.1
[2024-09-16] MEDS: HYDROmorphone 1 MG/ML Syringe IV ×2 (04:21→19:56)
[2024-09-16] MEDS: 0.9% Saline Lock 10 ML Syringe IV (04:31)
[2024-09-16] MEDS: Ondansetron 4 MG/2 ML Vial IV ×2 (04:31→19:56)
[2024-09-16 05:19] LABS: Absolute Lymphocyte Count 2.91 X10^3/uL (0.83-4.51); Absolute Neutrophil Count 4.5 X10^3/uL (2.0-7.7); Basophil# 0.04 X10^3/uL; Basophil% 0.5 % (0-1); Eosinophil# 0.25 X10^3/uL; Hematocrit 35.7 % (37-47); Hemoglobin 11.2 g/dL (12.0-15.0); Lymphocyte # 2.91 X10^3/ul (0.83-4.51); Lymphocyte % 34.4 % (19-41); Mean Corp Hgb Conc 31.4 g/dL (32-36); Mean Corpuscular Hgb 26.4 pg (27.0-32.0); Mean Corpuscular Volume 84.2 fL (81-99); Mean Platelet Vol. 10.6 fl (6.2-12.0); Monocyte# 0.68 X10^3/uL; NRBC Flagged by Analyzer 0 % (0-5); Neutrophil # 4.54 X10^3/uL (2.7-7.7); Neutrophil % 53.6 % (47-70); Platelet Count 287 K/mm3 (150-450); RBC Distribution Width CV 14.7 % (11.6-14.6); RBC Distribution Width SD 44.8 fl (35.1-43.9); Red Blood Count 4.24 M/mm3 (4.2-5.4); White Blood Count 8.5 K/mm3 (4.4-11.0)
[2024-09-16 05:30] LABS: Internal QC Validated? YES +Cl - CLEAR BKGD; Pregnancy, Serum, hCG Quali. NEGATIVE Negative
[2024-09-16 05:49] LABS: Anion Gap 14 (5-15); BUN 8 mg/dL (4-19); BUN/Creat Ratio 15.4 RATIO (10-20); Calcium,Total 8.8 mg/dL (7.6-11.0); Chloride 102 mmol/L (98-108); Creatinine, Serum 0.52 mg/dL (0.70-1.20); EST Glomerular Filtration Rate 131 (>60); Estimated Creatinine Clearance 307.08 ml/min (50-250); Glucose 200 mg/dL (70-99); Potassium 4.1 mmol/L (3.3-5.1); Sodium Level 136 mmol/L (133-145)
[2024-09-16] MEDS: Cefazolin 1 GM/50 ML BAG IV ×3 (06:31→19:55)
[2024-09-16 06:52] LABS: Bedside Glucose 214 mg/dL (74-106)
[2024-09-16] MEDS: oxyCODONE 5 MG Tablet PO ×2 (10:19→17:45)
[2024-09-16 12:09] LABS: Bedside Glucose 216 mg/dL (74-106)
--- NOTE | 2024-09-16 13:50 | PRE.ANES_ITS ---
ASA Classification* ASA Classification ASA Classification: 3 Assessment & Plan Anesthesia* Anesthesia Assessment Anesthesia Assessment: Discussed sedation and/or anesthesia options, risks, benefits, and alternatives with patient/parents/legal guardian/POA. Questions invited. The patient/parents/legal guardian/POA seems to understand and agrees to proceed with anesthesia plan. Reviewed the physical assessment, medical history, allergy history and patient home medications list prior to surgery/procedure/anesthetic and documented any changes. Performed airway and anesthesia risk assessments. Anesthesia Type Anesthesia Type: General (History of anxiety. Feels claustrophobic with mask.) Anesthesia Focused Assessment* Temperature: 97.9 F Pulse Rate: 80 Blood Pressure: 140/66 Respiratory Rate: 18 Pulse Ox: 99 Airway Assessment Mouth opens: >3 cm Mallampati Score: II Focused Labs Anesthesia Preop lab: CBC WBC 8.5 K/mm3 (4.4-11.0) 09/16/24 04:32 09/16/24 RBC 4.24 M/mm3 (4.2-5.4) 09/16/24 04:32 09/16/24 Hgb 11.2 g/dL (12.0-15.0) L 09/16/24 04:32 5 Hct 35.7 % (37-47) L 09/16/24 04:32 09/16/24 Plt Count 287 K/mm3 (150-450) 09/16/24 04:32 09/16/24 CHEMISTRY Potassium 4.1 mmol/L (3.3-5.1) 09/16/24 04:32 09/16/24 Sodium 136 mmol/L (133-145) 09/16/24 04:32 09/16/24 Magnesium 1.3 mg/dL (1.6-2.6) L 03/28/23 02:31 03/28/23 BUN 8 mg/dL (4-19) 09/16/24 04:32 09/16/24 Creatinine 0.52 mg/dL (0.70-1.20) L 09/16/24 04:32 Glucose 200 mg/dL (70-99) H 09/16/24 04:32 09/16/24 POC Glucose 216 mg/dL (74-106) H 09/16/24 11:50 09/16/24 TSH 2.41 uIU/mL (0.358-3.74) 11/22/20 00:10 COAG PT 13.1 SECONDS (11.7-14.9) 05/21/24 13:10 HCG, Quant < 1 mIU/mL (1-3) 03/30/24 16:50 03/30/24 Urine Test Negative Negative 01/06/24 03:00 01/06/24 Pre-Assessment Diagnosis/Proposed Procedure Planned Operative Procedure(s): ESWL, stent insertion Anesthesia History Anesthesia History - patternmaker plastics: Anesthesia History - patternmaker plastics Hx Hospitalization No 01/25/21 11:44 Any Problems With Anesthesia No: PT REPORTS SHE'S A RED 09/16/24 09:14 HEAD AND REPORTS SHE NEEDS MORE ANESTHESIA Cholinesterase deficiency No 09/16/24 09:14 You/Your Family Experience No 09/16/24 09:14 fever (hyperthermia) with Relationship Recent Exposure to Contagious No 09/16/24 09:14 Disease Does patient have nerve No 09/16/24 09:14 stimulator Patient instructed to have device shut off --Does patient have Pacemaker or ICD? When Was Last Pacemaker Check QUESTION #4 FULL TEXT: You/Your Family Experience fever (hyperthermia) with Anesthesia Last Oral Intake Last Oral intake: Last Oral Intake NPO since 00:00 09/16/24 11:36 Meds taken in AM with sips of water? Meds patient instructed to take am of surgery PONV PONV - patternmaker plastics: PONV - patternmaker plastics Female HX of Motion Sickness HX of N/V After Surgery Non-Smoker Duration of Surgery greater than 60 minutes Number of Risk Factors PONV Score Height & Weight Height & Weight: Anesthesia: Height & Weight Height 5 ft 8 in 09/16/24 11:36 Weight: 203.4 kg 09/16/24 11:36 Body Mass Index (BMI) 68.1 09/16/24 11:36 Respiratory Assessment Respiratory Assessment - patternmaker plastics: Respiratory Tract Infection Hx - patternmaker plastics Hx Respiratory Tract Infection No 09/16/24 09:14 STOP Sleep Apnea STOP Sleep Apnea - patternmaker plastics: STOP Sleep Apnea - patternmaker plastics Hx Hypertension No 09/15/24 13:10 Hx Sleep Apnea Yes: mild 09/15/24 13:10 CPAP No 09/15/24 13:10 BIPAP No 09/15/24 13:10 Do you snore loudly (louder than talking or can be heard Do you often feel tired/ fatigued/ sleepy during daytime? Has anyone observed you stop breathing during sleep? STOP Results Positive 09/15/24 13:10 QUESTION #5 FULL TEXT : Do you snore loudly (louder than talking or can be heard through closed doors)? 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 Specify any problems Hx of Preganancy in last 3 No 09/15/24 13:10 Months Nurse Filling Out Transfusion [place] 09/15/24 13:10 & Questions: Date: 09/15/24 09/15/24 13:10 Time: 13:11 09/15/24 13:10 Patient unable to answer at this time (ie. confused, unrespo /Reproduction History /Reproductive History - patternmaker plastics: /Reproductive Hx- patternmaker plastics Hx Now No 09/16/24 09:14 Gestational Age (in weeks): EDC: Hx Hx Para Hx Section SAB No 09/16/24 09:14 Active Medications Active Medications: Current Medications Generic Name Dose Route Start Last Admin Trade Name Freq PRN Reason Stop Dose Admin Acetaminophen 650 mg 09/15/24 13:38 Acetaminophen 325 Mg Tablet PO Q6H PRN PRN Pain Score 1-10 Al Hydroxide/Mg Hydroxide 30 ml 09/15/24 13:38 Mag Hydrox/Al Hydrox/Simeth 30 Ml Udc PO Q4H PRN PRN HEARTBURN Albuterol Sulfate 2.5 mg 09/15/24 13:36 Albuterol 2.5 Mg/3 Ml Vial.Neb. INHALATION PRN PRN ASTHMA Atorvastatin Calcium 10 mg 09/15/24 22:00 09/15/24 21:56 Atorvastatin Calcium 10 Mg Tablet PO 10 mg QHS [facility] Administration Buspirone HCl 15 mg 09/15/24 22:00 09/16/24 08:15 Buspirone 15 Mg Tablet PO Not Given BID [facility] Docusate Sodium 200 mg 09/15/24 22:00 09/16/24 08:15 Docusate Sodium 100 Mg Capsule PO Not Given BID FRAN Fenofibrate 48 mg 09/15/24 22:00 09/15/24 21:58 Fenofibrate 48 Mg Tablet PO 48 mg QHS [facility] Administration Gabapentin 400 mg 09/15/24 22:00 09/16/24 08:16 Gabapentin 400 Mg Capsule PO Not Given BID [facility] Hydromorphone HCl 1 mg 09/15/24 17:10 09/16/24 04:21 Hydromorphone 1 Mg/Ml Syringe IV 1 mg Q2H PRN PRN Administration Pain Score 6-10 Cefazolin Sodium 1 gm in 50 mls @ 150 mls/hr 09/15/24 14:00 09/16/24 07:00 IV Infused Q8 [facility] Infusion Sodium Chloride 1,000 mls @ 15 mls/hr 09/16/24 13:45 IV .Q48H [facility] Insulin Glargine 72 unit 09/15/24 22:00 09/15/24 22:05 Insulin Glargine-Yfgn 100 Unit/Ml Pen SC Not Given QHS [facility] Lamotrigine 100 mg 09/15/24 22:00 09/15/24 21:56 Lamotrigine 100 Mg Tablet PO 100 mg QHS [facility] Administration Lisinopril 5 mg 09/15/24 22:00 09/15/24 21:58 Lisinopril 5 Mg Tablet PO 5 mg QHS [facility] Administration Protocol Metformin HCl 2,000 mg 09/15/24 22:00 09/15/24 22:04 Metformin (Xr) 500 Mg Tablet PO 2,000 mg QHS FRAN Administration Metoprolol Succinate 75 mg 09/15/24 22:00 09/15/24 21:57 Metoprolol(Xl)Succ 25 Mg Tablet PO 75 mg QHS FRAN Administration Protocol Non-Formulary Medication 3 mg 09/16/24 10:00 Brexpiprazole [Rexulti] PO DAILY [facility] Non-Formulary Medication 1 tablet 09/16/24 10:00 Norethindrone Ac-Eth Estradiol [Microgestin 1.11/04 (21)] PO DAILY [facility] Ondansetron HCl 4 mg 09/15/24 13:36 Ondansetron Odt 4 Mg Tablet PO Q8H PRN PRN Nausea Ondansetron HCl 4 mg 09/15/24 13:38 09/16/24 04:31 Ondansetron 4 Mg/2 Ml Vial IV 4 mg Q8H PRN Administration NAUSEA/VOMITING Oxycodone HCl 5 - 10 mg 09/15/24 13:38 09/16/24 10:19 Oxycodone 5 Mg Tablet PO 5 mg Q6H PRN PRN Administration Pain Score 4-10 Prazosin HCl 2 mg 09/15/24 22:00 09/15/24 21:57 Prazosin Hcl 1 Mg Capsule PO 2 mg QHS FRAN Administration Sodium Chloride 10 - 40 ml 09/15/24 13:02 09/16/24 04:31 0.9% Saline Lock 10 Ml Syringe IV 20 ml UD PRN Administration SALINE FLUSH Trazodone HCl 200 mg 09/15/24 22:00 09/15/24 21:57 Trazodone 100 Mg Tablet PO 200 mg QHS FRAN Administration PFSH Medical History 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 Abscess of left thigh Morbid obesity with BMI of 60.0-69.9, adult Osteoporosis GERD (gastroesophageal reflux disease) CPAP (continuous positive airway pressure) dependence Sleep apnea Proteinuria due to type 2 diabetes mellitus Obesity Hypertriglyceridemia Diabetes Anxiety disorder, unspecified ADHD Bipolar 1 disorder Herniated disc Cancer Depression History of steroid therapy Walker as ambulation aid Arthritis Kidney stones Anemia Injury of back Injury of head and neck Dietary restriction Gastric reflux Non-smoker History of pain when walking History of echocardiogram Cardiology follow-up encounter History of irregular heartbeat Morton's disease Cancer Diabetes Obesity GERD (gastroesophageal reflux disease) Ovarian cyst Asthma PCOS (polycystic ovarian syndrome) Home Medications ?Medication ?Instructions ?Recorded ?Last Taken ?Type cholecalciferol (vitamin D3) 125 125 mcg PO DAILY supp lement 05/17/19 01/24/21 08:00 History mcg (5,000 unit) capsule epinephrine 0.3 mg/0.3 mL 0.3 mg (0.3 mL) IM X1 PRN 01/30/21 08:00 Rx injection, auto-injector Anaphylaxis ##1 albuterol sulfate 2.5 mg/3 mL 2.5 mg inhalation PRN OR N ASTHMA 01/25/21 01/30/21 08:00 History (0.083 %) solution for nebulization lisinopril 5 mg tablet 5 mg PO DAILY 01/25/2101/30 08:00 History atorvastatin 10 mg tablet 10 mg PO QHS 08/07/22 Unknow n History guanfacine 3 mg tablet,extended 3 mg PO DAILY 01/05/24 Unknown History release 24 hr (Intuniv ER) Held on 09/15/24. Instructions: MD Ordered prazosin 2 mg capsule 2 mg PO QHS 01/05/24 Unknown History trazodone 100 mg tablet 200 mg PO QHS 01/05/24 Unkno wn History fenofibrate nanocrystallized 48 mg 48 mg PO DAILY 05/08 09/29 Unknown History tablet ferrous sulfate 140 mg (45 mg 140 mg PO DAILY 05/21/24 Unknown History iron) tablet,extended release (Slow Release Iron) lamotrigine 100 mg tablet 100 mg PO QHS 05/21/24 Unkno wn History metformin 500 mg tablet,extended 2,000 mg PO QHS DM 09/14/24 History release 24 hr metoprolol succinate 50 mg 75 mg PO DAILY 05/21/24 Unk nown History tablet,extended release 24 hr Rexuti 08/10/24 Unknown History blood-glucose sensor (FreeStyle 09/10/24 Unknown Hist ory Guerrero 3 Sensor device) brexpiprazole 3 mg tablet (Rexulti) 3 mg PO DAILY 10/30 Unknown History buspirone 15 mg tablet 15 mg PO BID 09/10/24 Unknow n History clotrimazole 1 % topical cream 1 applic topical BID Unknown History gabapentin 400 mg capsule 400 mg PO BID 09/10/24 Unkno wn History insulin glargine 100 unit/mL (3 72 unit subcut DAILY 0 09/10/24 Unknown History mL) subcutaneous pen (Lantus Solostar U-100 Insulin) naproxen 500 mg tablet 500 mg PO BID #14 tabs 09/10 Unknown Rx norethindrone acetate 1.5 1 tab PO DAILY 09/10/24 Unkn own History mg-ethinyl estradiol 30 mcg tablet (Microgestin) ondansetron 4 mg disintegrating 4 mg PO Q8H PRN PRN Na usea #10 tabs 09/10/24 Unknown Rx tablet pen needle, diabetic 32 gauge x 09/10/24 Unknown Hist ory (BD Evy 2nd Gen Pen Needle) oxycodone 5 mg tablet 5 mg PO Q6H PRN pain 3 days #12 09/13/24 Unknown Rx tabs tamsulosin 0.4 mg capsule (Flomax) 0.4 mg PO DAILY 14 days #14 caps 09/13/24 Unknown Rx Allergy/AdvReac Type Severity Reaction Status Date / Time nitrofurantoin (From Allergy Intermediate rash Verified 09/16/24 13:38 Macrobid) penicillin V potassium (From Allergy Mild Rash Verified 09/16/24 13:38 Pen-Vee K) adhesive tape (plastic tape) Allergy Rash Verified 09/16/24 13:38 brompheniramine maleate Allergy Shortness Verified 09/16/24 13:38 (From Dimetapp of breath (brompheniramine-PPA)) celery Allergy Swelling Verified 09/16/24 13:38 phenylpropanolamine HCl Allergy Shortness Verified 09/16/24 13:38 (From Dimetapp of breath (brompheniramine-PPA)) amoxicillin trihydrate (From AdvReac Intermediate Diarrhea Verified 09/16/24 13:38 Augmentin) potassium clavulanate (From AdvReac Intermediate Diarrhea Verified 09/16/24 13:38 Augmentin) dicyclomine HCl (From Bentyl) AdvReac Nausea/Vom/ Verified 09/16/24 13:38 Diarrhea fructose AdvReac Nausea/Vom/ Verified 09/16/24 13:38 Diarrhea sertraline (From Zoloft) AdvReac Other Verified 09/16/24 13:38 Family History Father Diabetes Mother Hypertension Grandmother Breast cancer 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 H/O partial adrenalectomy History of back surgery History of adrenal surgery H/O oophorectomy H/O endoscopy History of tonsillectomy and adenoidectomy H/O wisdom tooth extraction H/O ovarian cystectomy Hx of cholecystectomy Social History household members: family Smoking Status: Never smoker alcohol intake: current alcohol intake frequency: a few times a month substance use type: does not use seatbelt use: always do you feel safe at home: Yes Review of Systems (Anesthesia) ROS Narrative System reviewed and no additional complaints, except as documented.
[2024-09-16] MEDS: 0.9% Normal Saline (1000mL) 1,000 ML 15 ML IV (13:55)
[2024-09-16 14:28] LABS: Bedside Glucose 179 mg/dL (74-106)
--- NOTE | 2024-09-16 14:30 | CALC_PTH ---
PATIENT: SCAR CHERRY LOC: MS3 U#:[id number] AGE/SX: 29/F ROOM: [facility] RE09/15/[address]: Dr. Rodney Forbes MD : 1995 BED: 1 DIS: 09/17/2024 SPEC #: [id number] RECD: 09/16/24 15:35 STATUS: CORY ZARATE #: [id number] KRISTEN: 09/16/24 14:[address]: Rodney Forbes DEPT: SURGICAL PATHOLOGY RECD BY: Iqra Lundy ENTERED: 09/19/24 08:01 SP TYPE: Calculi OTHR DR: Dr. Miguelito Unger MD Tissues: CALCULI Procedures: Surgery Specimen Level I HEADER OPERATION: ESWL, cystoscopy, retrograde, right ureteroscopy, stone basket PRE-OP DIAGNOSIS: Kidney stone on right side TISSUE SUBMITTED: A- Right kidney stone GROSS DIAGNOSIS A. Right kidney, stone, removal: * Urolithiasis (gross examination only). * Chemical analysis pending, to be reported separately. GROSS DESCRIPTION A. Received fresh in a container labeled with the patient's name, date of , and right kidney stone is a 0.1 x 0.1 x 0.1 cm pacheco-pink and firm stone. The specimen is entirely submitted to a urolithiasis lab. [facility] 09/21/2024 CPT:00949
--- NOTE | 2024-09-16 14:37 | DCINST_ITS ---
Discharge Instructions Diet Discharge Diet: No restrictions DC O2, CPAP, BIPAP needs Home O2 Discharge instructions: No Dressing / Incision Discharge Activity: Return to Normal Activity and May Not Drive (while taking narcotic pain medications.) Dressing / Incision Call your doctor if you observe: Fever of 101 or Higher Follow Up Care Please Follow Up With: Rodney Forbes MD When: Call [phone] for an appointment Test Results: Test results from this visit will be discussed in further detail at your follow- up appointment, if applicable. Discharge Plan Admission Admit Date/Time: 09/15/24 13:35 Primary Reason for Your Visit: treat kidney stone Attending Provider: Rodney Forbes Primary Care Provider: Miguelito Unger Discharge Orders/Prescriptions Prescriptions: New oxycodone 5 mg tablet 10 mg PO Q6H PRN (Reason: pain) 3 Days Qty: 20 0RF Continued cholecalciferol (vitamin D3) 125 MCG capsule 125 mcg PO DAILY epinephrine 0.3 MG syringe 0.3 mg IM X1 PRN (Reason: Anaphylaxis) Qty: 1 0RF albuterol sulfate 2.5 mg /3 mL (0.083 %) solution for nebulization 2.5 mg inhalation PRN PRN (Reason: ASTHMA) Patient Comments: INHALE 1 VIAL VIA NEBULIZER EVERY 6 HOURS NEEDED FOR SHORTNESS OF BREATH AND WHEEZING lisinopril 5 mg tablet 5 mg PO DAILY Patient Comments: TAKE 1 TABLET BY MOUTH ONCE DAILY atorvastatin 10 mg tablet 10 mg PO QHS Patient Comments: TAKE 1 TABLET BY MOUTH ONCE DAILY AT BEDTIME FOR CHOLESTEROL ondansetron 4 mg tablet,disintegrating 4 mg PO Q8H PRN PRN (Reason: Nausea) Qty: 10 0RF naproxen 500 mg tablet 500 mg PO BID Qty: 14 0RF gabapentin 400 mg capsule 400 mg PO BID norethindrone ac-eth estradiol [Microgestin 1.5/30 (21)] 1.5-30 mg-mcg tablet 1 tab PO DAILY clotrimazole 1 % cream 1 applic topical BID buspirone 15 mg tablet 15 mg PO BID insulin glargine [Lantus Solostar U-100 Insulin] 100 unit/mL (3 mL) insulin pen 72 unit subcut DAILY (DME) FreeStyle Guerrero 3 Sensor Device MISCELLANEOUS QWEEK (DME) pen needle, diabetic [BD Evy 2nd Gen Pen Needle] 32 gauge x 5/32 needle MISCELLANEOUS DAILY Rexulti 3 mg tablet 3 mg PO DAILY oxycodone 5 mg tablet 5 mg PO Q6H PRN (Reason: pain) 3 Days Qty: 12 0RF tamsulosin [Flomax] 0.4 mg capsule 0.4 mg PO DAILY 14 Days Qty: 14 0RF trazodone 100 mg tablet 200 mg PO QHS prazosin 2 mg capsule 2 mg PO QHS guanfacine [Intuniv ER] 3 mg tablet extended release 24 hr 3 mg PO DAILY metoprolol succinate 50 mg tablet extended release 24 hr 75 mg PO DAILY metformin 500 mg tablet extended release 24 hr 2,000 mg PO QHS lamotrigine 100 mg tablet 100 mg PO QHS fenofibrate nanocrystallized 48 mg tablet 48 mg PO DAILY Slow Release Iron 140 mg (45 mg iron) tablet extended release 140 mg PO DAILY Rexuti Referrals / Follow Up: Miguelito Unger MD [Primary Care Provider] - Rodney Forbes MD [Med Staff - Active Staff] - Disposition Disposition (needs filled in before D/C Order can be placed): Home, Self Care
--- NOTE | 2024-09-16 14:37 | PCM.OPRPT ---
Operative Report (Standard) Operative Information Date of Procedure: 09/16/24 Pre-Operative Diagnosis: right proximal obstructing ureter. Post-Operative Diagnosis: same Surgery/Procedure Performed: Right extracorporeal shockwave lithotripsy, cystoscopy, right ureteroscopy basket extraction of stone fragment, right retrograde pyelogram health systems analyst: No Type of Anesthesia: General RN Documented Start/Stop Times: Operation Date: 09/16/24 14:30 Case Time Into Pre-Op 09/16/24 13:30 Procedure Start Time: 14:38 Procedure Stop Time: 15:32 Select all DRAINS/GRAFTS/IMPLANTS that apply: None Estimated Blood Loss: 0 Specimen collected: No Description of surgery: Patient presents to the hospital for treatment of a kidney stone with shockwave lithotripsy. In the preoperative area and x-ray was done to confirm the location of the stone. The x-ray was reviewed and the stone location was reviewed. In the preoperative setting I spoke with the patient regarding the treatment of the stone how the treatment would be conducted and the expectations after surgery. The patient understands there is a risk of bleeding and infection. Also discussed the very rare risk of hematoma or damage to the kidney. We also discussed the risk that the shockwave machine will fail to break the stone adequately and that the patient may need other surgical procedures. I also discussed the possibility that the patient may need a stent after the procedure. After reviewing the procedure with the patient, the patient is signed the consent form all the patient's questions were addressed and was taken back to the operating room for treatment of a kidney stone. Patient was taken back to the operating room, the patient was identified by the nursing staff, I identified the side of the treatment and the patient side of treatment had been marked by my initials. The patient underwent general anesthetic and was placed supine on the lithotripter table. I then used fluoroscopy to identify the stone on the Right side. It was quite difficult to identify the stone given the patient's body habitus, so we did a cystoscopy I performed a retrograde pyelogram he can see contrast going up to the mid ureter and the narrowed narrowing is to the area where I suspected the stone was stuck using a Pollick catheter to try and manipulate the stone in the upper pole of the kidney, left the wire in place then over the wire went in with a flexible ureteroscope was able to push the stone in the upper pole of the kidney and then we could see the scope and is he can see the stone in the upper pole of the kidney we then performed lithotripsy in the upper pole stone. I then worked my way down the ureter and then used a basket to extract the stone in the mid ureter. Then the patient's bladder was drained. I then positioned the patient under the lithotripter and I used triangulation technique to identify the location of the stone and then I made sure that the stone was engaged in the F2 focal point of F2 Donier lithoprior machine. Once the patient was positioned appropriately and the stone was identified and placed in the F2 focal point of the lithotripter machine I then proceeded with shockwave lithotripsy. In the beginning the shockwave was delivered at a rate of 90 shocks per minute, anesthesia monitored the EKG for any ectopy. The power was slowly increased to 5 kV and subsequently at the 7 kV. I then proceeded with the treatment with shock wave therapy and around during the treatment to make sure the stone stayed in the F2 focal point during the entire treatment and after 2000 shockwaves were delivered to the stone under fluoroscopic guidance the treatment was completed. The patient was given instructions to call the office to make an a follow-up appointment with an x-ray to evaluate the success of the treatment, patient understands that its possible the stones may need another procedure. At this point the patient's anesthetic was reversed patient was extubated and taken back to the PACU in stable condition. Surgical Findings: stone proximal ureter Complications Complications: No Admit VTE Documentation VTE Present on Admission: No VTE Mechan Device Prophylaxis: SCD's VTE Pharm Prophylaxis ordered?: No
--- NOTE | 2024-09-16 15:19 | PHA.DC.MR.R ---
Pharmacy [place] Med Reconciliation Pharmacy Service has performed discharge medication reconciliation for this patient. Just filled oxycodone a couple of days ago, did not senior living sales counselor. Medications reviewed. The patient's discharge medication list was reviewed for discrepancies and discrepancies were resolved. Medications at Discharge Home Medications cholecalciferol (vitamin D3) 125 mcg (5,000 unit) capsule 125 mcg PO DAILY supplement 05/17/19 epinephrine 0.3 mg/0.3 mL injection, auto-injector 0.3 mg (0.3 mL) IM X1 PRN Anaphylaxis ##1 05/14/20 albuterol sulfate 2.5 mg/3 mL (0.083 %) solution for nebulization 2.5 mg inhalation PRN PRN ASTHMA 01/25/21 lisinopril 5 mg tablet 5 mg PO DAILY 01/25/21 atorvastatin 10 mg tablet 10 mg PO QHS 08/07/22 guanfacine 3 mg tablet,extended release 24 hr (Intuniv ER) 3 mg PO DAILY 01/05/24 prazosin 2 mg capsule 2 mg PO QHS 01/05/24 trazodone 100 mg tablet 200 mg PO QHS 01/05/24 fenofibrate nanocrystallized 48 mg tablet 48 mg PO DAILY 05/21/24 ferrous sulfate 140 mg (45 mg iron) tablet,extended release (Slow Release Iron) 140 mg PO DAILY 05/21/24 lamotrigine 100 mg tablet 100 mg PO QHS 05/21/24 metformin 500 mg tablet,extended release 24 hr 2,000 mg PO QHS DM 05/21/24 metoprolol succinate 50 mg tablet,extended release 24 hr 75 mg PO DAILY 05/21/24 Rexuti 08/10/24 blood-glucose sensor (FreeStyle Guerrero 3 Sensor device) 09/10/24 brexpiprazole 3 mg tablet (Rexulti) 3 mg PO DAILY 09/10/24 buspirone 15 mg tablet 15 mg PO BID 09/10/24 clotrimazole 1 % topical cream 1 applic topical BID 09/10/24 gabapentin 400 mg capsule 400 mg PO BID 09/10/24 insulin glargine 100 unit/mL (3 mL) subcutaneous pen (Lantus Solostar U-100 Insulin) 72 unit subcut DAILY 09/10/24 naproxen 500 mg tablet 500 mg PO BID #14 tabs 09/10/24 norethindrone acetate 1.5 mg-ethinyl estradiol 30 mcg tablet (Microgestin) 1 tab PO DAILY 09/10/24 ondansetron 4 mg disintegrating tablet 4 mg PO Q8H PRN PRN Nausea #10 tabs 09/10/24 pen needle, diabetic 32 gauge x (BD Evy 2nd Gen Pen Needle) 09/10/24 oxycodone 5 mg tablet 5 mg PO Q6H PRN pain 3 days #12 tabs 09/13/24 tamsulosin 0.4 mg capsule (Flomax) 0.4 mg PO DAILY 14 days #14 caps 09/13/24 oxycodone 5 mg tablet 10 mg (2 x 5 mg) PO Q6H PRN pain 3 days #20 tabs 09/16/24
--- NOTE | 2024-09-16 15:20 | CASEMGMT ---
SIERRA RALPH NOTE: DC order is in. SIERRA RALPH to room. Pt is out of room @ procedure. Pt's mom, Rajani, in room waiting for pt to return. Mom states she is pt's POA and states pt is on the spectrum. Mom states pt lives w/her (mom) and pt's dad and her brother. Pt is independent @ baseline, uses no DME. Parents assist her as needed. Pt's dad will be able to take her and her mom home today. Mom aware Rx has been sent to [facility] and they can pick this up today. Mom aware they will need to call Dr Forbes's office to schedule f/u appt. She denies having other discharge needs, concerns, or questions. Patricia PAYNE RN, CM
--- NOTE | 2024-09-16 15:34 | CASEMGMT ---
Met with patient to complete KOENIG form. KOENIG form explained to patient who voiced understanding and signed form. Original form placed in pt?s chart and copy provided to patient. Elizabeth Harris, Discharge Planning Asst
--- NOTE | 2024-09-16 15:50 | PCM.POST.ANE ---
Anesthesia: Postop Eval I Current Vital Signs Temperature: 97.6 F Pulse Rate: 85 Blood Pressure: 160/88 Respiratory Rate: 24 Pulse Ox: 93 Oxygen Delivery Method: Venturi Mask Oxygen Flow Rate (L/min): 4 Assessment Airway patent: Yes Spontaneous unlabored respirations: Yes Mental status: Asleep nausea: No Vomiting: No Anesthesia Complication: No Fluid Hydration Crystalloid volume administer (ml): 1,000 Total IV fluid infused: 1,000 Progress Note Anesthesia document: Postop Eval 1 completed: Yes
--- NOTE | 2024-09-16 16:04 | POSTOPAN2_ITS ---
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 Spontaneous unlabored Yes 09/16/24 15:50 FAMILY [email or web address] respirations Mental status Asleep 09/16/24 15:50 FAMILY [email or web address] nausea No 09/16/24 15:50 FAMILY ASSESSMENT [email or web address] Vomiting No 09/16/24 15:50 FAMILY [email or web address] Anesthesia Postop Eval I: Fluid Summary Crystalloid volume administer 1,000 09/16/24 15:50 FAMILY [email or web address] (ml) Colloids volume administered ( ml) Blood Product volume administered (ml) Total IV fluid infused 1,000 09/16/24 15:50 FAMILY [email or web address] Anesthesia Postop Eval I: Summary Notes Anesthesia Complication No 09/16/24 15:50 [email or web address] [email or web address] Anesthesia Complication Comment: Post-operative progress note Anesthesia: Postop Eval II Evaluation Mental status: Awake Pain Level: 0 nausea: No Vomiting: No
--- NOTE | 2024-09-16 16:04 | PCM.POSTANE2 ---
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 [email or web address] Spontaneous unlabored Yes 09/16/24 15:50 NUCLEAR FUELS RESEARCH [email or web address] respirations Mental status Asleep 09/16/24 15:50 NUCLEAR FUELS RESEARCH [email or web address] nausea No 09/16/24 15:50 NUCLEAR FUELS RESEARCH [email or web address] Vomiting No 09/16/24 15:50 NUCLEAR FUELS RESEARCH [email or web address] Anesthesia Postop Eval I: Fluid Summary Crystalloid volume administer 1,000 09/16/24 15:50 NUCLEAR FUELS RESEARCH [email or web address] (ml) Colloids volume administered ( ml) Blood Product volume administered (ml) Total IV fluid infused 1,000 09/16/24 15:50 NUCLEAR FUELS RESEARCH [email or web address] Anesthesia Postop Eval I: Summary Notes Anesthesia Complication No 09/16/24 15:50 NUCLEAR FUELS RESEARCH [email or web address] Anesthesia Complication Comment: Post-operative progress note Anesthesia: Postop Eval II Evaluation Mental status: Awake Pain Level: 0 nausea: No Vomiting: No
[2024-09-16] MEDS: Albuterol 2.5 MG/3 ML VIAL.NEB. INHALATION (17:26)
[2024-09-16] MEDS: Acetaminophen 325 MG Tablet 650 MG PO (17:44)
[2024-09-16] MEDS: Docusate Sodium 100 MG Capsule 200 MG PO (19:56)
[2024-09-16] MEDS: Gabapentin 400 MG Capsule PO (19:56)
[2024-09-16] MEDS: lamoTRIgine 100 MG Tablet PO (19:57)
[2024-09-16] MEDS: Fenofibrate 48 MG Tablet PO (19:57)
[2024-09-16] MEDS: traZODone 100 MG Tablet 200 MG PO (19:57)
[2024-09-16] MEDS: Atorvastatin Calcium 10 MG Tablet PO (19:57)
[2024-09-16] MEDS: Metoprolol(XL)Succ 25 MG Tablet 75 MG PO (19:58)
[2024-09-16] MEDS: Prazosin HCl 1 MG Capsule 2 MG PO (20:00)
[2024-09-16] MEDS: metFORMIN (XR) 500 MG Tablet 2000 MG PO (20:00)
[2024-09-16] MEDS: Lisinopril 5 MG Tablet PO (20:00)
[2024-09-16] MEDS: busPIRone 15 MG TABLET PO (20:00)
[2024-09-16] MEDS: Insulin Glargine-YFGN 100 UNIT/ML Pen 72 UNIT SC (20:17)
[2024-09-16 21:55] LABS: Bedside Glucose 280 mg/dL (74-106)
[2024-09-17 00:10] VITALS: O2SAT 96
[2024-09-17] MEDS: oxyCODONE 5 MG Tablet PO ×2 (01:13→07:15)
[2024-09-17] MEDS: Acetaminophen 325 MG Tablet 650 MG PO ×2 (01:13→07:15)
[2024-09-17 01:14] VITALS: BP 150/65; PULSE 90; RESP 16; TEMP 36.7; O2SAT 98
[2024-09-17 03:52] VITALS: BP 153/72; PULSE 88; RESP 17; TEMP 36.7; O2SAT 97
[2024-09-17] MEDS: Cefazolin 1 GM/50 ML BAG IV (05:05)
[2024-09-17 06:40] LABS: Bedside Glucose 291 mg/dL (74-106)
[2024-09-17 07:14] LABS: Absolute Lymphocyte Count 1.55 X10^3/uL (0.83-4.51); Absolute Neutrophil Count 12.2 X10^3/uL (2.0-7.7); Basophil# 0.03 X10^3/uL; Basophil% 0.2 % (0-1); Hematocrit 36.7 % (37-47); Hemoglobin 11.7 g/dL (12.0-15.0); Lymphocyte # 1.55 X10^3/ul (0.83-4.51); Lymphocyte % 10.5 % (19-41); Mean Corp Hgb Conc 31.9 g/dL (32-36); Mean Corpuscular Hgb 26.9 pg (27.0-32.0); Mean Corpuscular Volume 84.4 fL (81-99); Mean Platelet Vol. 11.1 fl (6.2-12.0); Monocyte# 0.84 X10^3/uL; Monocyte% 5.7 % (0-10); NRBC Flagged by Analyzer 0 % (0-5); Neutrophil # 12.19 X10^3/uL (2.7-7.7); Platelet Count 330 K/mm3 (150-450); RBC Distribution Width CV 14.6 % (11.6-14.6); RBC Distribution Width SD 44.5 fl (35.1-43.9); Red Blood Count 4.35 M/mm3 (4.2-5.4); White Blood Count 14.7 K/mm3 (4.4-11.0)
[2024-09-17 07:38] LABS: Anion Gap 16 (5-15); BUN 8 mg/dL (4-19); BUN/Creat Ratio 12.8 RATIO (10-20); Calcium,Total 9.6 mg/dL (7.6-11.0); Carbon Dioxide 19.7 mmol/L (21.0-32.0); Chloride 100 mmol/L (98-108); Creatinine, Serum 0.63 mg/dL (0.70-1.20); EST Glomerular Filtration Rate 124 (>60); Estimated Creatinine Clearance 253.47 ml/min (50-250); Glucose 259 mg/dL (70-99); Potassium 4.1 mmol/L (3.3-5.1); Sodium Level 136 mmol/L (133-145)
--- NOTE | 2024-09-17 09:02 | PN.URO_ITS ---
Subjective Subjective s/p ESWL not painful anymore eating breakfast home today Objective Data Objective Data Vital Signs: Vital Signs Temp Pulse Resp BP Pulse Ox O2 Del Method O2 Flow Rate 98.1 F 88 17 153/72 H 97 Room Air 3 09/17/24 03:52 09/17/24 03:52 09/17/24 03:52 09/17/24 03:52 09/17/24 03:52 09/17/24 03:52 09/16/24 17:25 Oxygen Flow Rate (L/min) 3 Oxygen Delivery Method Room Air Weight: 203.4 kg Body Mass Index (BMI) 68.1 Intake & Output: Intake and Output for Last 24 Hours 09/15/24 09/16/24 09/17/24 23:59 23:59 23:59 Intake Total 2700 / 3500 1000 / 1000 650 / 650 Output Total 400 / 400 300 / 300 Balance 2300 / 3100 700 / 700 650 / 650 Lab / Micro Data 09/17/24 05:33 09/17/24 05:33 Labs: Laboratory Results - last 24 hr 09/16/24 11:50: POC Glucose 216 H 09/16/24 13:41: POC Glucose 179 H 09/16/24 20:15: POC Glucose 280 H 09/17/24 05:33: WBC 14.7 H, RBC 4.35, Hgb 11.7 L, Hct 36.7 L, MCV 84.4, MCH 26.9 L, MCHC 31.9 L, RDW Std Deviation 44.5 H, RDW Coeff of Silvia 14.6, Plt Count 330, MPV 11.1, Immature Gran % (Auto) 0.600, Neut % (Auto) 83.0 H, Lymph % (Auto) 10.5 L, [place] % (Auto) 5.7, Eos % (Auto) 0.0, Baso % (Auto) 0.2, Absolute Neuts (auto) 12.2 H, Absolute Lymphs (auto) 1.55, Nucleated RBC % 0, Sodium 136, Potassium 4.1, Chloride 100, Carbon Dioxide 19.7 L, Anion Gap 16 H, BUN 8, C reatinine 0.63 L, Estim Creat Clear Calc 253.47 H, Est GFR (MDRD) Non-Af 124, BUN/Creatinine Ratio 12.8, Glucose 259 H, Calcium 9.6 09/17/24 06:23: POC Glucose 291 H Micro: Microbiology 09/15/24 09:50 Urine, Clean Catch Urine Culture - Final Mixed Gram Pos & Gram Neg Org
[2024-09-17 09:25] VITALS: BP 148/59; PULSE 96; RESP 18; TEMP 36.6; O2SAT 96
[2024-09-17] MEDS: Docusate Sodium 100 MG Capsule 200 MG PO (09:47)
[2024-09-17] MEDS: busPIRone 15 MG TABLET PO (09:47)
[2024-09-17] MEDS: Gabapentin 400 MG Capsule PO (09:47)
[2024-09-26 23:07] LABS: Ca Oxalate, Dihydrate 60 % (.); Ca Oxalate, Monohydrate 40 % (.); Size <1 mm (.)
== END 2024-09-17 10:16 | disposition home or self-care (01) ==
LOC: ED 12:29 → MS3 13:44
PROVIDERS: Admitting Provider Urology; Emergency Provider Surgery; PCP Family Medicine; Visit Provider Urology
PROC: (CPT 50590; principal; 2024-09-16 14:20)
DX: N13.6 Pyonephrosis (principal); F31.9 Bipolar disorder, unspecified; E66.01 Morbid (severe) obesity due to excess calories; Z68.44 Body mass index [BMI] 60.0-69.9, adult; E11.65 Type 2 diabetes mellitus with hyperglycemia; Z79.4 Long term (current) use of insulin; E88.810 Metabolic syndrome; J45.909 Unspecified asthma, uncomplicated; K21.9 Gastro-esophageal reflux disease without esophagitis; G47.33 Obstructive sleep apnea (adult) (pediatric); Z79.899 Other long term (current) drug therapy
CPT/HCPCS: 52353; 00873; 36415; 74176; 80048; 81001; 82360; 82962; 84703; 85025; 87086; 87088; 88300; 94640; 96365; 96366; 96367; 96375; 96376; 97802; 99221; 99284; A4216; C1769; G0378; J2405

== ENCOUNTER → 2024-09-22 | Outpatient (CLI) | payer MEDICARE, MEDICAID, SELFPAY ==
--- NOTE | 2024-09-22 09:30 | RAD_ITS ---
PROCEDURE: ABDOMEN SINGLE VIEW 09/22/2024 REASON FOR EXAM: CALCULUS OF KIDNEY One-week post lithotripsy. TECHNIQUE: Single view abdomen. COMPARISON: Comparison is made with prior CT scan dated September 07, 2024. FINDINGS: Bowel gas: Bowel gas pattern is remarkable for mild constipation. No evidence of bowel obstruction. Calcifications: No calcifications are seen. Bones: Prior laminectomy at the L5 level. Other: RAD/Abdomen Single View IMPRESSION: NO ACUTE FINDINGS [facility]
== END | disposition home or self-care (01) ==
PROVIDERS: PCP Family Medicine; Referring Provider Nurse Practitioner; Visit Provider Nurse Practitioner
DX: N20.0 Calculus of kidney (principal)
CPT/HCPCS: 74018

== ENCOUNTER 2024-09-27 11:47 | Emergency (ER) | payer MEDICARE, MEDICAID, SELFPAY ==
[2024-09-27 11:49] VITALS: BP 166/68; PULSE 84; RESP 16; TEMP 36.6; O2SAT 97; BMI 66.0
--- NOTE | 2024-09-27 12:16 | CT_ITS ---
EXAM: CT Abdomen and Pelvis With Intravenous Contrast CLINICAL INDICATION: ABDOMINAL PAIN TECHNIQUE: Axial computed tomography images of the abdomen and pelvis with intravenous contrast. This CT exam was performed using one or more of the following dose reduction techniques: automated exposure control, adjustment of the mA and/or kV according to patient size, and/or use of iterative reconstruction technique. COMPARISON: CT Abdomen Pelvis dated 09/15/2024 FINDINGS: LUNG BASES: Unremarkable. No mass. No consolidation. ABDOMEN: LIVER: Fatty infiltration of the liver. GALLBLADDER AND BILE DUCTS: Cholecystectomy. No ductal dilation. PANCREAS: Unremarkable. No mass. No ductal dilation. SPLEEN: Unremarkable. No splenomegaly. ADRENALS: Unremarkable. No mass. KIDNEYS AND URETERS: Previously described obstructing 2 mm calculus of the proximal right ureter is no longer present. No hydronephrosis or hydroureter. STOMACH AND BOWEL: Unremarkable. No obstruction. No mucosal thickening. PELVIS: APPENDIX: No findings to suggest acute appendicitis. BLADDER: Unremarkable. No mass. REPRODUCTIVE: Unremarkable as visualized. ABDOMEN and PELVIS: INTRAPERITONEAL SPACE: Unremarkable. No free air. No significant fluid collection. BONES/JOINTS: No acute fracture. No dislocation. SOFT TISSUES: Umbilical hernia. VASCULATURE: Unremarkable. No abdominal aortic aneurysm. LYMPH NODES: Unremarkable. No enlarged lymph nodes. CT/Abdomen/Pelvis W IV Cont ONLY IMPRESSION: Previously described obstructing 2 mm calculus of the proximal right ureter is no longer present. No hydronephrosis or hydroureter. Reading Location: [facility]
--- NOTE | 2024-09-27 12:26 | ED.VIS.GI ---
HPI HPI - GI History of Present Illness Chief Complaint: Abd Pain Informant: patient Abdominal Pain/Flank Pain Onset: Today Context: Sudden Onset Timing: Continuous Quality: Cramping and Sharp Location: Epigastric, RUQ and RLQ Worsened by: Movement Relieved by: Nothing Nausea/Vomiting/Emesis GI Symptom: Positive for Nausea and Vomiting Quality: Positive for Nonbilious; Negative for Blood streaks, Coffee ground or Hematemesis Diarrhea/Melena/Hematochezia GI Symptom: Positive for Diarrhea; Negative for Melena Stool Quality: Positive for Loose Associated Symptoms Associated Symptoms: Negative for Dysuria, Frequency or Urgency LMP: 2 weeks ago Narrative Narrative: Patient presents with abdominal pain that began today. Patient states it started in the epigastric and right upper quadrant. Patient states that has spread to the right lower abdomen and periumbilical area. Patient describes it as cramping but sharp at times. Patient states it is worse with movement. Patient states nothing makes it better. Patient admits to some nausea and vomiting. Patient denies any hematemesis or coffee-ground emesis. Patient states her stools are loose but she denies any diarrhea or melena. Patient denies any urinary complaints. Patient states she recently started her menstrual period again after just finishing 1 week ago. 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 Abscess of left thigh Morbid obesity with BMI of 60.0-69.9, adult Osteoporosis GERD (gastroesophageal reflux disease) CPAP (continuous positive airway pressure) dependence Sleep apnea Proteinuria due to type 2 diabetes mellitus Obesity Hypertriglyceridemia Diabetes Anxiety disorder, unspecified ADHD Bipolar 1 disorder Herniated disc Cancer Depression History of steroid therapy Walker as ambulation aid Arthritis Kidney stones Anemia Injury of back Injury of head and neck Dietary restriction Gastric reflux Non-smoker History of pain when walking History of echocardiogram Cardiology follow-up encounter History of irregular heartbeat Abner's disease Cancer Diabetes Obesity GERD (gastroesophageal reflux disease) Ovarian cyst Asthma PCOS (polycystic ovarian syndrome) Home Medications ?Medication ?Instructions ?Recorded ?Last Taken ?Type cholecalciferol (vitamin D3) 125 125 mcg PO DAILY supplement 05/17/19 01/24/21 08:00 History mcg (5,000 unit) capsule epinephrine 0.3 mg/0.3 mL 0.3 mg (0.3 mL) IM X1 PRN 05/14/20 01/30/21 08:00 Rx injection, auto-injector Anaphylaxis ##1 albuterol sulfate 2.5 mg/3 mL 2.5 mg inhalation PRN PRN ASTHMA 01/25/21 01/30/21 08:00 History (0.083 %) solution for nebulization lisinopril 5 mg tablet 5 mg PO DAILY 01/25/21 01/30/21 08:00 History atorvastatin 10 mg tablet 10 mg PO QHS 08/07/22 Unknown History guanfacine 3 mg tablet,extended 3 mg PO DAILY 01/05/24 Unknown History release 24 hr (Intuniv ER) prazosin 2 mg capsule 2 mg PO QHS 01/05/24 Unknown History trazodone 100 mg tablet 200 mg PO QHS 01/05/24 Unknown History fenofibrate nanocrystallized 48 mg 48 mg PO DAILY 05/21/24 Unknown History tablet ferrous sulfate 140 mg (45 mg 140 mg PO DAILY 05/21/24 Unknown History iron) tablet,extended release (Slow Release Iron) lamotrigine 100 mg tablet 100 mg PO QHS 05/21/24 Unknown History metformin 500 mg tablet,extended 2,000 mg PO QHS DM 05/21/24 09/14/24 History release 24 hr metoprolol succinate 50 mg 75 mg PO DAILY 05/21/24 Unknown History tablet,extended release 24 hr Rexuti 08/10/24 Unknown History blood-glucose sensor (FreeStyle 09/10/24 Unknown History Guerrero 3 Sensor device) brexpiprazole 3 mg tablet (Rexulti) 3 mg PO DAILY 09/10/24 Unknown History buspirone 15 mg tablet 15 mg PO BID 09/10/24 Unknown History clotrimazole 1 % topical cream 1 applic topical BID 09/10/24 Unknown History gabapentin 400 mg capsule 400 mg PO BID 09/10/24 Unknown History insulin glargine 100 unit/mL (3 72 unit subcut DAILY 09/10/24 Unknown History mL) subcutaneous pen (Lantus Solostar U-100 Insulin) naproxen 500 mg tablet 500 mg PO BID #14 tabs 09/10/24 Unknown Rx norethindrone acetate 1.5 1 tab PO DAILY 09/10/24 Unknown History mg-ethinyl estradiol 30 mcg tablet (Microgestin) ondansetron 4 mg disintegrating 4 mg PO Q8H PRN PRN Nausea #10 tabs 09/10/24 Unknown Rx tablet pen needle, diabetic 32 gauge x 09/10/24 Unknown History (BD Evy 2nd Gen Pen Needle) oxycodone 5 mg tablet 5 mg PO Q6H PRN pain 3 days #12 09/13/24 Unknown Rx tabs tamsulosin 0.4 mg capsule (Flomax) 0.4 mg PO DAILY 14 days #14 caps 09/13/24 Unknown Rx oxycodone 5 mg tablet 10 mg (2 x 5 mg) PO Q6H PRN pain 3 09/16/24 Unknown Rx days #20 tabs Allergy/AdvReac Type Severity Reaction Status Date / Time nitrofurantoin (From Allergy Intermediate rash Verified 09/27/24 11:49 Macrobid) penicillin V potassium (From Allergy Mild Rash Verified 09/27/24 11:49 Pen-Vee K) adhesive tape (plastic tape) Allergy Rash Verified 09/27/24 11:49 brompheniramine maleate Allergy Shortness Verified 09/27/24 11:49 (From Dimetapp of breath (brompheniramine-PPA)) celery Allergy Swelling Verified 09/27/24 11:49 phenylpropanolamine HCl Allergy Shortness Verified 09/27/24 11:49 (From Dimetapp of breath (brompheniramine-PPA)) amoxicillin trihydrate (From AdvReac Intermediate Diarrhea Verified 09/27/24 11:49 Augmentin) potassium clavulanate (From AdvReac Intermediate Diarrhea Verified 09/27/24 11:49 Augmentin) dicyclomine HCl (From Bentyl) AdvReac Nausea/Vom/ Verified 09/27/24 11:49 Diarrhea fructose AdvReac Nausea/Vom/ Verified 09/27/24 11:49 Diarrhea sertraline (From Zoloft) AdvReac Other Verified 09/27/24 11:49 Family History Father Diabetes Mother Hypertension Grandmother Breast cancer 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 H/O partial adrenalectomy History of back surgery History of adrenal surgery H/O oophorectomy H/O endoscopy History of tonsillectomy and adenoidectomy H/O wisdom tooth extraction H/O ovarian cystectomy Hx of cholecystectomy Social History household members: family Smoking Status: Never smoker alcohol intake: current alcohol intake frequency: a few times a month substance use type: does not use seatbelt use: always do you feel safe at home: Yes ROS ROS ED Constitutional Constitutional ED: Denies chills or fever(s) Eyes Eyes: Denies blurry vision or change in vision ENT ENT ED: Denies rhinorrhea or sore throat Cardiovascular Cardiovascular: Denies chest pain or palpitations Respiratory/Chest Respiratory/Chest: Denies cough or dyspnea Gastrointestinal Gastrointestinal: Reports abdominal pain, nausea and vomiting; Denies diarrhea or melena Genitourinary Genitourinary ED: Denies dysuria or hematuria Musculoskeletal Musculoskeletal: Denies back pain or neck pain Integumentary Denies abscess or rash Neurologic Neurologic: Denies headache(s) or weakness Allergic/Immunologic Allergic/Immunologic ED: Denies mouth swelling or urticaria EXAM Physical Exam Const Vital Signs: 09/27/24 11:49 09/27/24 12:53 09/27/24 15:34 Temperature 97.8 F 98.6 F 97.9 F Temperature Source Oral Temporal Pulse Rate 84 78 75 Respiratory Rate 16 16 16 Blood Pressure 166/68 H 146/78 H 136/80 H Blood Pressure Mean 100 100 98 Pulse Ox 97 98 97 Oxygen Delivery Method Room Air Room Air Positive well nourished and well developed General Appearance ED: well developed and NAD HEENT Reports moist mucous membranes Neck supple and no JVD Resp normal respiratory effort and clear to auscultation bilaterally Cardio regular rate and regular rhythm GI non-distended Palpation: soft and tender epigastric, RLQ, RUQ, periumbilical and suprapubic; Negative for guarding or rebound tenderness present Extremity full ROM Neuro CN's II-XII intact bilaterally, moves all extremities and no sensory deficits noted Sensorium / Orientation: alert Motor Exam: strength 5/5 throughout Psych mental status grossly normal MDM MDM MDM Narrative Medical decision making narrative: Differential diagnosis includes gastroenteritis, pancreatitis, gastric ulcer, duodenal ulcer, pyelonephritis, urinary tract infection, and . CBC will be obtained to assess for leukocytosis and anemia. Comprehensive metabolic profile will be obtained to assess for hepatic function, renal function, and electrolyte abnormality. Lipase will be obtained to assess for pancreatitis. Serum hCG will be obtained to assess for . Urinalysis will be obtained to assess urinary tract infection and hematuria. CT scan of the abdomen and pelvis will be obtained to assess for bowel obstruction and perforation. History & Record Review Additional record(s) reviewed:: Prior inpatient record, Prior outpatient record, Prior ED visit and Prior labs Lab Data Attestation: I reviewed the patient's lab results. Lab results narrative: CBC was reviewed. There is a slight leukocytosis of 11.8. Comprehensive metabolic profile was reviewed and was essentially within normal limits. Serum hCG was reviewed and was negative. Lipase was reviewed and was normal. Urinalysis was reviewed. There is no evidence of urinary tract infection. Occult blood was 250. There were greater than 100 red blood cells. Labs: Laboratory Results - last 24 hr 09/27/24 09/27/24 12:26 13:59 WBC 11.8 H RBC 4.98 Hgb 13.1 Hct 40.6 MCV 81.5 MCH 26.3 L MCHC 32.3 RDW Std Deviation 42.8 RDW Coeff of Silvia 14.6 Plt Count 375 MPV 10.3 Immature Gran % (Auto) 0.500 Neut % (Auto) 67.9 Lymph % (Auto) 23.2 [place] % (Auto) 5.9 Eos % (Auto) 2.0 Baso % (Auto) 0.5 Absolute Neuts (auto) 8.0 H Absolute Lymphs (auto) 2.73 Nucleated RBC % 0 Sodium 137 Potassium 4.0 Chloride 102 Carbon Dioxide 22.1 Anion Gap 13 BUN 12 Creatinine 0.62 L Estim Creat Clear Calc 252.13 H Est GFR (MDRD) Non-Af 125 BUN/Creatinine Ratio 19.3 Glucose 252 H Calcium 9.4 Total Bilirubin 0.18 AST 48 H ALT 32 Alkaline Phosphatase 64 Total Protein 7.2 Albumin 3.8 Globulin 3.4 Albumin/Globulin Ratio 1.1 Lipase 39 Serum , Qual NEGATIVE Urine Color Yellow Urine Clarity Cloudy Urine pH 6.0 Ur Specific [place] 1.015 Urine Protein 30 H Urine Glucose (UA) 1000 H Urine Ketones Negative Urine Occult Blood 250 H Urine Nitrite Negative Urine Bilirubin Negative Urine Urobilinogen Normal Ur Leukocyte Esterase 25 H Urine RBC > 100 SEEN Urine WBC 0-5 SEEN Ur Squamous Epith Cells 0-5 SEEN Urine Bacteria 0 SEEN Urine Mucus 0 SEEN Radiography Diagnostic Testing: Clinical Impression(s) from Imaging Studies Abdomen/Pelvis CT 09/27/24 12:16 IMPRESSION: Previously described obstructing 2 mm calculus of the proximal right ureter is no longer present. No hydronephrosis or hydroureter. Reading Location: [facility] CT scan of the abdomen and pelvis was obtained. There is no ureteral calculus, hydronephrosis, or hydroureter. There is no acute abnormality noted. There is no free air or free fluid. This was interpreted by the radiologist and was also independently reviewed by myself. Treatment and Re-Evaluation :: Patient was given IV fluids, morphine, and Zofran. The patient was advised of her findings. Patient was instructed to follow-up with her primary care physician in 5 to 7 days. Patient was instructed to return if worse in any way. Patient understood and was agreeable with the plan. All questions were answered. Discharge Plan Triage Chief Complaint: Abd Pain ED Provider: Gio Ceron Dx/Rx/DC Orders Clinical Impression: Abdominal pain, Diabetes Instructions: ED Abdominal Pain Unkn Cause Fem Prescriptions: No Action cholecalciferol (vitamin D3) 125 MCG capsule 125 mcg PO DAILY epinephrine 0.3 MG syringe 0.3 mg IM X1 PRN (Reason: Anaphylaxis) Qty: 1 0RF albuterol sulfate 2.5 mg /3 mL (0.083 %) solution for nebulization 2.5 mg inhalation PRN PRN (Reason: ASTHMA) Patient Comments: INHALE 1 VIAL VIA NEBULIZER EVERY 6 HOURS NEEDED FOR SHORTNESS OF BREATH AND WHEEZING lisinopril 5 mg tablet 5 mg PO DAILY Patient Comments: TAKE 1 TABLET BY MOUTH ONCE DAILY atorvastatin 10 mg tablet 10 mg PO QHS Patient Comments: TAKE 1 TABLET BY MOUTH ONCE DAILY AT BEDTIME FOR CHOLESTEROL ondansetron 4 mg tablet,disintegrating 4 mg PO Q8H PRN PRN (Reason: Nausea) Qty: 10 0RF naproxen 500 mg tablet 500 mg PO BID Qty: 14 0RF gabapentin 400 mg capsule 400 mg PO BID norethindrone ac-eth estradiol [Microgestin 1.5/30 (21)] 1.5-30 mg-mcg tablet 1 tab PO DAILY clotrimazole 1 % cream 1 applic topical BID buspirone 15 mg tablet 15 mg PO BID insulin glargine [Lantus Solostar U-100 Insulin] 100 unit/mL (3 mL) insulin pen 72 unit subcut DAILY (DME) FreeStyle Guerrero 3 Sensor Device MISCELLANEOUS QWEEK (DME) pen needle, diabetic [BD Evy 2nd Gen Pen Needle] 32 gauge x 5/32 needle MISCELLANEOUS DAILY Rexulti 3 mg tablet 3 mg PO DAILY oxycodone 5 mg tablet 5 mg PO Q6H PRN (Reason: pain) 3 Days Qty: 12 0RF tamsulosin [Flomax] 0.4 mg capsule 0.4 mg PO DAILY 14 Days Qty: 14 0RF trazodone 100 mg tablet 200 mg PO QHS prazosin 2 mg capsule 2 mg PO QHS guanfacine [Intuniv ER] 3 mg tablet extended release 24 hr 3 mg PO DAILY metoprolol succinate 50 mg tablet extended release 24 hr 75 mg PO DAILY metformin 500 mg tablet extended release 24 hr 2,000 mg PO QHS lamotrigine 100 mg tablet 100 mg PO QHS fenofibrate nanocrystallized 48 mg tablet 48 mg PO DAILY Slow Release Iron 140 mg (45 mg iron) tablet extended release 140 mg PO DAILY Rexuti oxycodone 5 mg tablet 10 mg PO Q6H PRN (Reason: pain) 3 Days Qty: 20 0RF Primary Care Provider: Miguelito Unger Referrals: Miguelito Unger MD [Primary Care Provider] - 5-7 Days Print Language: Persian Disposition Disposition: Home, Self Care Discharge Date/Time: 09/27/24 15:38
[2024-09-27] MEDS: Ondansetron 4 MG/2 ML Vial IV (12:28)
[2024-09-27] MEDS: Morphine 4 MG/ML Syringe IV (12:28)
[2024-09-27] MEDS: 0.9% Normal Saline (1000mL) 1,000 ML 999 ML IV (12:28)
[2024-09-27 12:32] LABS: Absolute Lymphocyte Count 2.73 X10^3/uL (0.83-4.51); Basophil# 0.06 X10^3/uL; Basophil% 0.5 % (0-1); Eosinophil# 0.24 X10^3/uL; Hematocrit 40.6 % (37-47); Hemoglobin 13.1 g/dL (12.0-15.0); Lymphocyte # 2.73 X10^3/ul (0.83-4.51); Lymphocyte % 23.2 % (19-41); Mean Corp Hgb Conc 32.3 g/dL (32-36); Mean Corpuscular Hgb 26.3 pg (27.0-32.0); Mean Corpuscular Volume 81.5 fL (81-99); Mean Platelet Vol. 10.3 fl (6.2-12.0); Monocyte% 5.9 % (0-10); NRBC Flagged by Analyzer 0 % (0-5); Neutrophil # 7.98 X10^3/uL (2.7-7.7); Neutrophil % 67.9 % (47-70); Platelet Count 375 K/mm3 (150-450); RBC Distribution Width CV 14.6 % (11.6-14.6); RBC Distribution Width SD 42.8 fl (35.1-43.9); Red Blood Count 4.98 M/mm3 (4.2-5.4); White Blood Count 11.8 K/mm3 (4.4-11.0)
[2024-09-27 12:45] LABS: Internal QC Validated? YES +Cl - CLEAR BKGD; Pregnancy, Serum, hCG Quali. NEGATIVE Negative
[2024-09-27 12:53] VITALS: BP 146/78; PULSE 78; RESP 16; TEMP 37; O2SAT 98
[2024-09-27 12:53] LABS: ALB/GLOB Ratio 1.1 RATIO (0.9-2.4); AST(SGOT) 48 U/L (<=31); Alanine Aminotransfer ALT/SGPT 32 U/L (<=34); Albumin, Serum 3.8 g/dL (3.5-5.0); Alkaline Phosphatase 64 U/L (35-104); Anion Gap 13 (5-15); BUN 12 mg/dL (4-19); BUN/Creat Ratio 19.3 RATIO (10-20); Calcium,Total 9.4 mg/dL (7.6-11.0); Carbon Dioxide 22.1 mmol/L (21.0-32.0); Chloride 102 mmol/L (98-108); Creatinine, Serum 0.62 mg/dL (0.70-1.20); EST Glomerular Filtration Rate 125 (>60); Estimated Creatinine Clearance 252.13 ml/min (50-250); Globulin 3.4 g/dL (2.2-4.2); Glucose 252 mg/dL (70-99); Lipase 39 U/L (13-75); Protein, Total 7.2 g/dL (5.9-8.4); Sodium Level 137 mmol/L (133-145); Total Bilirubin 0.18 mg/dL (0.00-1.30)
[2024-09-27 14:11] LABS: Bacteria 0 SEEN /hpf (None Seen); Mucous, Urine 0 SEEN /hpf (<or=2+)
[2024-09-27 14:26] LABS: Color, Urine Yellow (Yellow); Glucose, Dipstick 1000 mg/dl (Normal); Ketone-Dipstick Negative (Negative); Leukocyte Esterase-Dipstick 25 /ul (Negative); Nitrite-Dipstick Negative (Negative); Occult Blood-Urine 250 /ul (Negative); Protein-Dipstick 30 mg/dl (Negative); Specific Gravity, Urine 1.015 (1.002-1.030); Urine Bilirubin Dipstick Negative (Negative); Urine Clarity Cloudy (Clear); Urine Urobilinogen Normal (Normal)
[2024-09-27 14:50] LABS: Red Blood Cells-Urine > 100 SEEN /hpf (0-5); Squamous Epithelial Cells - UA 0-5 SEEN /hpf (5-10); White Blood Cells 0-5 SEEN /hpf (0-5)
[2024-09-27 15:34] VITALS: BP 136/80; PULSE 75; RESP 16; TEMP 36.6; O2SAT 97
== END 2024-09-27 15:38 | disposition home or self-care (01) ==
PROVIDERS: Emergency Provider Emergency Medicine; PCP Family Medicine; Visit Provider Emergency Medicine
DX: R10.13 Epigastric pain (principal); F31.9 Bipolar disorder, unspecified; E11.9 Type 2 diabetes mellitus without complications; Z79.4 Long term (current) use of insulin; R10.31 Right lower quadrant pain; R10.11 Right upper quadrant pain; R11.2 Nausea with vomiting, unspecified; R19.7 Diarrhea, unspecified; D64.9 Anemia, unspecified; K21.9 Gastro-esophageal reflux disease without esophagitis; F41.9 Anxiety disorder, unspecified; F90.9 Attention-deficit hyperactivity disorder, unspecified type; E28.2 Polycystic ovarian syndrome; E78.1 Pure hyperglyceridemia; M81.0 Age-related osteoporosis without current pathological fracture; J45.909 Unspecified asthma, uncomplicated; Z90.49 Acquired absence of other specified parts of digestive tract; Z87.442 Personal history of urinary calculi; Z79.84 Long term (current) use of oral hypoglycemic drugs; Z79.899 Other long term (current) drug therapy
CPT/HCPCS: 74177; 80053; 81001; 83690; 84703; 85025; 96361; 96374; 96375; 99283; Q9967; A4216; J2405

== ENCOUNTER → 2024-10-28 | Outpatient (CLI) | payer MEDICARE, MEDICAID, SELFPAY ==
--- NOTE | 2024-10-28 16:46 | RAD_ITS ---
PROCEDURE: CHEST PA AND LATERAL 10/28/2024 REASON FOR EXAM: COUGH TECHNIQUE: Frontal and lateral views of the chest. COMPARISON: CT abdomen and pelvis 09/27/2024 FINDINGS: Heart: The heart size is normal. Mediastinum: The mediastinal contour is unremarkable. Lungs: The lungs are clear. No pleural effusion. Bones: The bones are unremarkable. RAD/Chest PA and Lateral IMPRESSION: No acute cardiopulmonary abnormality. Reading Location: [id number]
== END | disposition home or self-care (01) ==
LOC: MTRAD 16:46
PROVIDERS: PCP Family Medicine; Referring Provider Physician Assistant Surgical; Visit Provider Physician Assistant Surgical
DX: R05.9 Cough, unspecified (principal)
CPT/HCPCS: 71046

== ENCOUNTER 2024-11-01 06:32 | Emergency (ER) | payer MEDICARE, MEDICAID, SELFPAY ==
[2024-11-01 06:33] VITALS: BP 170/74; PULSE 90; RESP 21; TEMP 36.6; O2SAT 99
[2024-11-01 06:36] VITALS: BP 170/74; PULSE 90; RESP 21; TEMP 36.6; O2SAT 96
[2024-11-01 06:39] VITALS: O2SAT 99
--- NOTE | 2024-11-01 07:02 | RAD_ITS ---
PROCEDURE: CHEST PA AND LATERAL 11/01/2024 REASON FOR EXAM: COUGH TECHNIQUE: Frontal and lateral views of the chest. COMPARISON: 10/28/2024 FINDINGS: The lungs appear clear. Pulmonary vascularity appears within limits. No pleural effusion. The cardiac and mediastinal contours appear within limits. Visualized osseous structures appear within limits. RAD/Chest PA and Lateral IMPRESSION: No evidence of acute disease. Reading Location: [id number]
[2024-11-01] MEDS: dexAMETHasone 10 MG/ML Vial PO.IVFORM (07:12)
[2024-11-01] MEDS: guaiFENesin/Codeine 5 ML UDC 10 ML PO (07:12)
[2024-11-01] MEDS: Ipratropium/Albuterol Sulfate 3 ML AMPUL.NEB INHALATION (07:18)
[2024-11-01 07:19] VITALS: PULSE 90; RESP 24
--- NOTE | 2024-11-01 07:47 | EX.ED.DYSGE1 ---
HPI History of Present Illness Chief Complaint: Asthma Informant: patient Narrative Narrative: Patient is a 29-year-old female with past medical history of of GERD anxiety PCOS type 2 diabetes and asthma. She states her asthma is typically well-controlled with inhaler. She states over the past week she has had congestion and cough and increased shortness of breath/wheeze despite taking her inhaler. She reports she recently went to an urgent care because she was concerned about pneumonia and reportedly had a normal chest x-ray. She states she is taking the medications that were prescribed to her but still has symptoms and with this has concern that there is now a secondary infection and comes in for evaluation. 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 Abscess of left thigh Morbid obesity with BMI of 60.0-69.9, adult Osteoporosis GERD (gastroesophageal reflux disease) CPAP (continuous positive airway pressure) dependence Sleep apnea Proteinuria due to type 2 diabetes mellitus Obesity Hypertriglyceridemia Diabetes Anxiety disorder, unspecified ADHD Bipolar 1 disorder Herniated disc Cancer Depression History of steroid therapy Walker as ambulation aid Arthritis Kidney stones Anemia Injury of back Injury of head and neck Dietary restriction Gastric reflux Non-smoker History of pain when walking History of echocardiogram Cardiology follow-up encounter History of irregular heartbeat [place]'s disease Cancer Diabetes Obesity GERD (gastroesophageal reflux disease) Ovarian cyst Asthma PCOS (polycystic ovarian syndrome) Home Medications ?Medication ?Instructions ?Recorded ?Last Taken ?Type cholecalciferol (vitamin D3) 125 125 mcg PO DAILY supplement 05/17/19 01/24/21 08:00 History mcg (5,000 unit) capsule epinephrine 0.3 mg/0.3 mL 0.3 mg (0.3 mL) IM X1 PRN 05/14/20 01/30/21 08:00 Rx injection, auto-injector Anaphylaxis ##1 albuterol sulfate 2.5 mg/3 mL 2.5 mg inhalation PRN PRN ASTHMA 01/25/21 01/30/21 08:00 History (0.083 %) solution for nebulization lisinopril 5 mg tablet 5 mg PO DAILY 01/25/21 01/30/21 08:00 History atorvastatin 10 mg tablet 10 mg PO QHS 08/07/22 Unknown History guanfacine 3 mg tablet,extended 3 mg PO DAILY 01/05/24 Unknown History release 24 hr (Intuniv ER) prazosin 2 mg capsule 2 mg PO QHS 01/05/24 Unknown History trazodone 100 mg tablet 200 mg PO QHS 01/05/24 Unknown History fenofibrate nanocrystallized 48 mg 48 mg PO DAILY 05/21/24 Unknown History tablet ferrous sulfate 140 mg (45 mg 140 mg PO DAILY 05/21/24 Unknown History iron) tablet,extended release (Slow Release Iron) lamotrigine 100 mg tablet 100 mg PO QHS 05/21/24 Unknown History metformin 500 mg tablet,extended 2,000 mg PO QHS DM 05/21/24 09/14/24 History release 24 hr metoprolol succinate 50 mg 75 mg PO DAILY 05/21/24 Unknown History tablet,extended release 24 hr Rexuti 08/10/24 Unknown History blood-glucose sensor (FreeStyle 09/10/24 Unknown History Guerrero 3 Sensor device) brexpiprazole 3 mg tablet (Rexulti) 3 mg PO DAILY 09/10/24 Unknown History buspirone 15 mg tablet 15 mg PO BID 09/10/24 Unknown History clotrimazole 1 % topical cream 1 applic topical BID 09/10/24 Unknown History gabapentin 400 mg capsule 400 mg PO BID 09/10/24 Unknown History insulin glargine 100 unit/mL (3 72 unit subcut DAILY 09/10/24 Unknown History mL) subcutaneous pen (Lantus Solostar U-100 Insulin) naproxen 500 mg tablet 500 mg PO BID #14 tabs 09/10/24 Unknown Rx norethindrone acetate 1.5 1 tab PO DAILY 09/10/24 Unknown History mg-ethinyl estradiol 30 mcg tablet (Microgestin) ondansetron 4 mg disintegrating 4 mg PO Q8H PRN PRN Nausea #10 tabs 09/10/24 Unknown Rx tablet pen needle, diabetic 32 gauge x 09/10/24 Unknown History (BD Evy 2nd Gen Pen Needle) oxycodone 5 mg tablet 5 mg PO Q6H PRN pain 3 days #12 09/13/24 Unknown Rx tabs tamsulosin 0.4 mg capsule (Flomax) 0.4 mg PO DAILY 14 days #14 caps 09/13/24 Unknown Rx oxycodone 5 mg tablet 10 mg (2 x 5 mg) PO Q6H PRN pain 3 09/16/24 Unknown Rx days #20 tabs azithromycin 250 mg tablet See Rx Instructions PO .COMPLEX #6 10/28/24 Unknown Rx tabs prednisone 10 mg tablet 10 mg PO DIRECTED 12 days #28 10/28/24 Unknown Rx tabs codeine 10 mg-guaifenesin 100 mg/5 10 ml PO 4X/DAY PRN cough 7 days 11/01/24 Unknown Rx mL oral liquid (Guaifenesin AC) #280 mL hydrocortisone acetate 25 mg 25 mg ND BID 6 days #12 ea 11/02/24 Unknown Rx rectal suppository (Anusol-HC) nystatin 100,000 unit/gram topical 1 applic topical BID #30 grams 11/02/24 Unknown Rx cream Allergy/AdvReac Type Severity Reaction Status Date / Time nitrofurantoin (From Allergy Intermediate rash Verified 11/02/24 12:04 Macrobid) penicillin V potassium (From Allergy Mild Rash Verified 11/02/24 12:04 Pen-Vee K) adhesive tape (plastic tape) Allergy Rash Verified 11/02/24 12:04 brompheniramine maleate Allergy Shortness Verified 11/02/24 12:04 (From Dimetapp of breath (brompheniramine-PPA)) celery Allergy Swelling Verified 11/02/24 12:04 phenylpropanolamine HCl Allergy Shortness Verified 11/02/24 12:04 (From Dimetapp of breath (brompheniramine-PPA)) amoxicillin trihydrate (From AdvReac Intermediate Diarrhea Verified 11/02/24 12:04 Augmentin) potassium clavulanate (From AdvReac Intermediate Diarrhea Verified 11/02/24 12:04 Augmentin) dicyclomine HCl (From Bentyl) AdvReac Nausea/Vom/ Verified 11/02/24 12:04 Diarrhea fructose AdvReac Nausea/Vom/ Verified 11/02/24 12:04 Diarrhea sertraline (From Zoloft) AdvReac Other Verified 11/02/24 12:04 Family History Father Diabetes Mother Hypertension Grandmother Breast cancer 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 H/O partial adrenalectomy History of back surgery History of adrenal surgery H/O oophorectomy H/O endoscopy History of tonsillectomy and adenoidectomy H/O wisdom tooth extraction H/O ovarian cystectomy Hx of cholecystectomy Social History household members: family Smoking Status: Never smoker alcohol intake: current alcohol intake frequency: a few times a month substance use type: does not use seatbelt use: always do you feel safe at home: Yes ROS ROS ED Constitutional Constitutional ED: Denies chills or fever(s) ENT ENT ED: Reports rhinorrhea and sore throat Cardiovascular Cardiovascular: Denies chest pain Respiratory/Chest Respiratory/Chest: Reports cough and dyspnea Gastrointestinal Gastrointestinal: Denies abdominal pain, diarrhea, nausea or vomiting Genitourinary Genitourinary ED: Denies dysuria Musculoskeletal Musculoskeletal: Denies back pain or myalgias Integumentary Denies rash Neurologic Neurologic: Denies headache(s) Hematologic/Lymphatic Hematologic/Lymphatic: Denies easy bleeding or easy bruising Allergic/Immunologic Allergic/Immunologic ED: Denies mouth swelling or tongue swelling EXAM Physical Exam Const Vital Signs: 11/01/24 06:33 11/01/24 06:36 11/01/24 06:39 Temperature 97.9 F 97.9 F Temperature Source Oral Oral Pulse Rate 90 90 Respiratory Rate 21 H 21 H Respiratory Effort Short of Breath Respiratory Pattern Tachypnea Blood Pressure 170/74 H 170/74 H Blood Pressure Mean 106 106 Pulse Ox 99 96 Oxygen Delivery Method Room Air Room Air Room Air 11/01/24 07:19 Temperature Temperature Source Pulse Rate 90 Respiratory Rate 24 H Respiratory Effort Respiratory Pattern Tachypnea Blood Pressure Blood Pressure Mean Pulse Ox Oxygen Delivery Method Positive well nourished, well developed and obese General Appearance ED: well developed; Negative for pallor Nutritional Appearance: obese HEENT HEENT Narrative: Nasal mucosa is hyperemic and boggy with enlarged inferior turbinates There is cobblestoning in the posterior pharynx consistent with sinus drainage without airway edema or compromise; no secondary findings to suggest infection No tongue or lip swelling noted Eyes PERRL and EOMs intact bilaterally Neck supple and no JVD Chest Wall palpation of chest normal Resp normal respiratory effort Resp Narrative: Breath sounds are diminished throughout with diffuse expiratory wheeze Otherwise no nasal flaring retractions tachypnea or accessory muscle use Cardio regular rate and regular rhythm Extremity normal to inspection Extremity Narrative: No asymmetric edema no pitting edema negative Homans' sign bilaterally Neuro oriented x3, CN's II-XII intact bilaterally and no sensory deficits noted Sensorium / Orientation: alert Motor Exam: strength 5/5 throughout Psych mental status grossly normal Skin no rashes or lesions noted and no wounds General Skin Exam: Negative for jaundice or pallor MDM MDM MDM Narrative Medical decision making narrative: Patient arrived to the ER in no acute respiratory distress. She reported congestion cough and increased wheezing for the past week. Differential diagnosis is for viral upper respiratory tract infection such as COVID influenza or RSV versus pneumonia or pneumothorax. As her vitals are stable without fever hypotension or hypoxia I have low concern for systemic infection/sepsis. Therefore do not feel the need for laboratory studies. With concern for developing infection such as pneumonia I did elect to perform a repeat chest x-ray. Chest x-ray revealed no acute findings which correlates with the patient's physical exam and work of breathing. After receiving Decadron and DuoNeb in the ER as well as cough syrup her breath sounds did improve and she reported feeling better. Therefore at this time as she is not in respiratory distress or showing signs of hypoxia or systemic infection there is no need for further evaluation and she is otherwise safe for discharge History & Record Review Discussion w/independent historian: Patient Radiography Diagnostic Testing: Clinical Impression(s) from Imaging Studies Chest X-Ray 11/01/24 07:02 IMPRESSION: No evidence of acute disease. Reading Location: [facility] Chest x-ray is interpreted by the emergency medicine physician reveals no acute infiltrate pneumothorax or pleural effusion Discharge Plan Triage Chief Complaint: Asthma ED Provider: Sudarshan Angelo Dx/Rx/DC Orders Clinical Impression: Asthmatic bronchitis, GERD (gastroesophageal reflux disease), Morbid obesity with BMI of 60.0-69.9, adult, PCOS (polycystic ovarian syndrome), Type 2 diabetes mellitus Instructions: Acute Bronchitis, Asthma Prescriptions: New codeine-guaifenesin [Guaifenesin AC] 10-100 mg/5 mL liquid 10 ml PO 4X/DAY PRN (Reason: cough) 7 Days Qty: 280 0RF No Action azithromycin 250 mg tablet See Rx Instructions PO .COMPLEX Qty: 6 0RF Rx Instructions: take 500 mg today (day 1), then 250 mg for 4 days (days 2-5) PO prednisone 10 mg tablet 10 mg PO DIRECTED 12 Days Qty: 28 0RF Rx Instructions: Take 4 tabs once daily days 1-3 3 tabs once daily days 4-6 2 tabs once daily days 7-9 and 1 tab once daily days 10-12. cholecalciferol (vitamin D3) 125 MCG capsule 125 mcg PO DAILY epinephrine 0.3 MG syringe 0.3 mg IM X1 PRN (Reason: Anaphylaxis) Qty: 1 0RF albuterol sulfate 2.5 mg /3 mL (0.083 %) solution for nebulization 2.5 mg inhalation PRN PRN (Reason: ASTHMA) Patient Comments: INHALE 1 VIAL VIA NEBULIZER EVERY 6 HOURS NEEDED FOR SHORTNESS OF BREATH AND WHEEZING lisinopril 5 mg tablet 5 mg PO DAILY Patient Comments: TAKE 1 TABLET BY MOUTH ONCE DAILY atorvastatin 10 mg tablet 10 mg PO QHS Patient Comments: TAKE 1 TABLET BY MOUTH ONCE DAILY AT BEDTIME FOR CHOLESTEROL ondansetron 4 mg tablet,disintegrating 4 mg PO Q8H PRN PRN (Reason: Nausea) Qty: 10 0RF naproxen 500 mg tablet 500 mg PO BID Qty: 14 0RF gabapentin 400 mg capsule 400 mg PO BID norethindrone ac-eth estradiol [Microgestin 1.5/30 (21)] 1.5-30 mg-mcg tablet 1 tab PO DAILY clotrimazole 1 % cream 1 applic topical BID buspirone 15 mg tablet 15 mg PO BID insulin glargine [Lantus Solostar U-100 Insulin] 100 unit/mL (3 mL) insulin pen 72 unit subcut DAILY (DME) FreeStyle Guerrero 3 Sensor Device MISCELLANEOUS QWEEK (DME) pen needle, diabetic [BD Evy 2nd Gen Pen Needle] 32 gauge x 5/32 needle MISCELLANEOUS DAILY Rexulti 3 mg tablet 3 mg PO DAILY oxycodone 5 mg tablet 5 mg PO Q6H PRN (Reason: pain) 3 Days Qty: 12 0RF tamsulosin [Flomax] 0.4 mg capsule 0.4 mg PO DAILY 14 Days Qty: 14 0RF trazodone 100 mg tablet 200 mg PO QHS prazosin 2 mg capsule 2 mg PO QHS guanfacine [Intuniv ER] 3 mg tablet extended release 24 hr 3 mg PO DAILY metoprolol succinate 50 mg tablet extended release 24 hr 75 mg PO DAILY metformin 500 mg tablet extended release 24 hr 2,000 mg PO QHS lamotrigine 100 mg tablet 100 mg PO QHS fenofibrate nanocrystallized 48 mg tablet 48 mg PO DAILY Slow Release Iron 140 mg (45 mg iron) tablet extended release 140 mg PO DAILY Rexuti oxycodone 5 mg tablet 10 mg PO Q6H PRN (Reason: pain) 3 Days Qty: 20 0RF nystatin 100,000 unit/gram cream 1 applic topical BID Qty: 30 0RF hydrocortisone acetate [Anusol-HC] 25 mg suppository 25 mg ND BID 6 Days Qty: 12 0RF Stand Alone Forms: ED Work / School Excuse Primary Care Provider: Miguelito Unger Referrals: Miguelito Unger MD [Primary Care Provider] - Activity Restrictions/Additional Instructions: Your x-ray revealed no signs of pneumonia or fluid buildup in your lungs. Please continue all of your previous medications as directed by your doctor and add the cough syrup for improved symptom control. Return to the ER should you have any further concerns Print Language: Kiswahili Disposition Disposition: Home, Self Care Discharge Date/Time: 11/01/24 08:18
[2024-11-01 07:52] VITALS: BP 123/77; PULSE 101; RESP 20; TEMP 36.6; O2SAT 97
== END 2024-11-01 08:18 | disposition home or self-care (01) ==
PROVIDERS: Emergency Provider Emergency Medicine; PCP Family Medicine; Visit Provider Emergency Medicine
DX: J45.909 Unspecified asthma, uncomplicated (principal); F31.9 Bipolar disorder, unspecified; E66.01 Morbid (severe) obesity due to excess calories; Z68.44 Body mass index [BMI] 60.0-69.9, adult; E11.9 Type 2 diabetes mellitus without complications; Z79.4 Long term (current) use of insulin; K21.9 Gastro-esophageal reflux disease without esophagitis; F41.9 Anxiety disorder, unspecified; E28.2 Polycystic ovarian syndrome; M81.0 Age-related osteoporosis without current pathological fracture; F90.9 Attention-deficit hyperactivity disorder, unspecified type; E78.1 Pure hyperglyceridemia; D64.9 Anemia, unspecified; G47.30 Sleep apnea, unspecified; Z79.84 Long term (current) use of oral hypoglycemic drugs; Z79.899 Other long term (current) drug therapy
CPT/HCPCS: 71046; 94640; 99282

== ENCOUNTER 2024-11-02 12:03 | Emergency (ER) | payer MEDICARE, MEDICAID, SELFPAY ==
[2024-11-02 12:04] VITALS: BP 177/94; PULSE 84; RESP 16; TEMP 36.8; O2SAT 98; BMI 65.4
--- NOTE | 2024-11-02 12:38 | ED.VIS.GI ---
HPI HPI - GI History of Present Illness Chief Complaint: Diarrhea Narrative Narrative: 29-year-old female presents with bright red blood per rectum that she had this morning. Of note, she was seen in the emergency department yesterday and diagnosed with bronchitis. This morning, she had 2 episodes of bright red blood per rectum with bowel movements. She may have been slightly lightheaded but states that she gets dehydrated when she gets sick. No nausea or vomiting. She denies taking blood thinners although she is taking naproxen for pain. She does not take additional blood thinners. She denies other bleeding diathesis. While waiting, she did have a bowel movement and she had a small amount of bright red blood but it was not as severe as this morning. She states that she called her primary care provider who suggested that she come to the emergency department. 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 Abscess of left thigh Morbid obesity with BMI of 60.0-69.9, adult Osteoporosis GERD (gastroesophageal reflux disease) CPAP (continuous positive airway pressure) dependence Sleep apnea Proteinuria due to type 2 diabetes mellitus Obesity Hypertriglyceridemia Diabetes Anxiety disorder, unspecified ADHD Bipolar 1 disorder Herniated disc Cancer Depression History of steroid therapy Walker as ambulation aid Arthritis Kidney stones Anemia Injury of back Injury of head and neck Dietary restriction Gastric reflux Non-smoker History of pain when walking History of echocardiogram Cardiology follow-up encounter History of irregular heartbeat Heath's disease Cancer Diabetes Obesity GERD (gastroesophageal reflux disease) Ovarian cyst Asthma PCOS (polycystic ovarian syndrome) Home Medications ?Medication ?Instructions ?Recorded ?Last Taken ?Type cholecalciferol (vitamin D3) 125 125 mcg PO DAILY supplement 05/17/19 01/24/21 08:00 History mcg (5,000 unit) capsule epinephrine 0.3 mg/0.3 mL 0.3 mg (0.3 mL) IM X1 PRN 05/14/20 01/30/21 08:00 Rx injection, auto-injector Anaphylaxis ##1 albuterol sulfate 2.5 mg/3 mL 2.5 mg inhalation PRN PRN ASTHMA 01/25/21 01/30/21 08:00 History (0.083 %) solution for nebulization lisinopril 5 mg tablet 5 mg PO DAILY 01/25/21 01/30/21 08:00 History atorvastatin 10 mg tablet 10 mg PO QHS 08/07/22 Unknown History guanfacine 3 mg tablet,extended 3 mg PO DAILY 01/05/24 Unknown History release 24 hr (Intuniv ER) prazosin 2 mg capsule 2 mg PO QHS 01/05/24 Unknown History trazodone 100 mg tablet 200 mg PO QHS 01/05/24 Unknown History fenofibrate nanocrystallized 48 mg 48 mg PO DAILY 05/21/24 Unknown History tablet ferrous sulfate 140 mg (45 mg 140 mg PO DAILY 05/21/24 Unknown History iron) tablet,extended release (Slow Release Iron) lamotrigine 100 mg tablet 100 mg PO QHS 05/21/24 Unknown History metformin 500 mg tablet,extended 2,000 mg PO QHS DM 05/21/24 09/14/24 History release 24 hr metoprolol succinate 50 mg 75 mg PO DAILY 05/21/24 Unknown History tablet,extended release 24 hr Rexuti 08/10/24 Unknown History blood-glucose sensor (FreeStyle 09/10/24 Unknown History Guerrero 3 Sensor device) brexpiprazole 3 mg tablet (Rexulti) 3 mg PO DAILY 09/10/24 Unknown History buspirone 15 mg tablet 15 mg PO BID 09/10/24 Unknown History clotrimazole 1 % topical cream 1 applic topical BID 09/10/24 Unknown History gabapentin 400 mg capsule 400 mg PO BID 09/10/24 Unknown History insulin glargine 100 unit/mL (3 72 unit subcut DAILY 09/10/24 Unknown History mL) subcutaneous pen (Lantus Solostar U-100 Insulin) naproxen 500 mg tablet 500 mg PO BID #14 tabs 09/10/24 Unknown Rx norethindrone acetate 1.5 1 tab PO DAILY 09/10/24 Unknown History mg-ethinyl estradiol 30 mcg tablet (Microgestin) ondansetron 4 mg disintegrating 4 mg PO Q8H PRN PRN Nausea #10 tabs 09/10/24 Unknown Rx tablet pen needle, diabetic 32 gauge x 09/10/24 Unknown History (BD Evy 2nd Gen Pen Needle) oxycodone 5 mg tablet 5 mg PO Q6H PRN pain 3 days #12 09/13/24 Unknown Rx tabs tamsulosin 0.4 mg capsule (Flomax) 0.4 mg PO DAILY 14 days #14 caps 09/13/24 Unknown Rx oxycodone 5 mg tablet 10 mg (2 x 5 mg) PO Q6H PRN pain 3 09/16/24 Unknown Rx days #20 tabs azithromycin 250 mg tablet See Rx Instructions PO .COMPLEX #6 10/28/24 Unknown Rx tabs prednisone 10 mg tablet 10 mg PO DIRECTED 12 days #28 10/28/24 Unknown Rx tabs codeine 10 mg-guaifenesin 100 mg/5 10 ml PO 4X/DAY PRN cough 7 days 11/01/24 Unknown Rx mL oral liquid (Guaifenesin AC) #280 mL hydrocortisone acetate 25 mg 25 mg NE BID 6 days #12 ea 11/02/24 Unknown Rx rectal suppository (Anusol-HC) nystatin 100,000 unit/gram topical 1 applic topical BID #30 grams 11/02/24 Unknown Rx cream Allergy/AdvReac Type Severity Reaction Status Date / Time nitrofurantoin (From Allergy Intermediate rash Verified 11/02/24 12:04 Macrobid) penicillin V potassium (From Allergy Mild Rash Verified 11/02/24 12:04 Pen-Vee K) adhesive tape (plastic tape) Allergy Rash Verified 11/02/24 12:04 brompheniramine maleate Allergy Shortness Verified 11/02/24 12:04 (From Dimetapp of breath (brompheniramine-PPA)) celery Allergy Swelling Verified 11/02/24 12:04 phenylpropanolamine HCl Allergy Shortness Verified 11/02/24 12:04 (From Dimetapp of breath (brompheniramine-PPA)) amoxicillin trihydrate (From AdvReac Intermediate Diarrhea Verified 11/02/24 12:04 Augmentin) potassium clavulanate (From AdvReac Intermediate Diarrhea Verified 11/02/24 12:04 Augmentin) dicyclomine HCl (From Bentyl) AdvReac Nausea/Vom/ Verified 11/02/24 12:04 Diarrhea fructose AdvReac Nausea/Vom/ Verified 11/02/24 12:04 Diarrhea sertraline (From Zoloft) AdvReac Other Verified 11/02/24 12:04 Family History Father Diabetes Mother Hypertension Grandmother Breast cancer 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 H/O partial adrenalectomy History of back surgery History of adrenal surgery H/O oophorectomy H/O endoscopy History of tonsillectomy and adenoidectomy H/O wisdom tooth extraction H/O ovarian cystectomy Hx of cholecystectomy Social History household members: family Smoking Status: Never smoker alcohol intake: current alcohol intake frequency: a few times a month substance use type: does not use seatbelt use: always do you feel safe at home: Yes ROS ROS ED ROS Narrative Review of systems positive for bright red blood per rectum. This is with 2 bowel movements this morning. Slightly lightheaded. Denies other bleeding diathesis. No nausea or vomiting. EXAM Physical Exam Narrative Exam Narrative: Afebrile. Vital signs noted. Nontoxic-appearing. Cardiovascular examination reveals regular rate and rhythm. Lungs are clear to auscultation bilaterally. The abdomen is soft and nontender without guarding or rebound. Positive bowel sounds. Neurological examination nonfocal, nonlateralizing. Able to ambulate to the bathroom and back without difficulty in the emergency department. No pallor of skin. Const Vital Signs: 11/02/24 12:04 11/02/24 13:49 Temperature 98.2 F Temperature Source Oral Pulse Rate 84 Pulse Rate [Lying] 86 Pulse Rate [Sitting (for 1 minute prior to obtaining)] 98 Pulse Rate [Standing (for 1 minute prior to obtaining)] 95 Respiratory Rate 16 Blood Pressure 177/94 H Blood Pressure [Lying] 160/77 H Blood Pressure [Sitting (for 1 minute prior to obtaining)] 166/88 H Blood Pressure [Standing (for 1 minute prior to obtaining)] 166/94 H Blood Pressure Mean 121 Blood Pressure Mean [Lying] 104 Blood Pressure Mean [Sitting (for 1 minute prior to obtaining)] 114 Blood Pressure Mean [Standing (for 1 minute prior to obtaining)] 118 Pulse Ox 98 Oxygen Delivery Method Room Air MDM MDM MDM Narrative Medical decision making narrative: Concern is for stable lower GI bleeding from hemorrhoid versus AV malformation versus diverticular bleed. She is not showing any signs of abdominal pain and I do not feel that CT is indicated. I will check her CBC for anemia. BMP will be obtained to look for signs of dehydration. Orthostatics will also be obtained and chaperoned rectal examination performed. I reviewed her laboratory work and she has slightly elevated white count of 15, but when compared to prior labs she has a chronic leukocytosis which I think is nonspecific. Hemoglobin normal at 12.4 with hematocrit 38.9, platelet count normal at 362. Electrolyte panel is grossly unremarkable with a BUN of 10 and creatinine low at 0.59. While glucose is elevated at 335 she has a normal anion gap of 13, so I doubt any diabetic ketoacidosis. Orthostatics are negative. Her chaperoned rectal examination did show a candidal rash with exposed, reddened skin throughout the buttocks cleft. There was no active bleeding on rectal examination, and she had brown-colored stool. At this point in time, I favor more internal hemorrhoid and rectal bleeding. As long as her orthostatics are negative I feel she can be discharged to follow-up with her primary care provider and she may require follow-up with gastroenterology. She will return with increased rectal bleeding. I wrote her prescriptions for Anusol HC suppositories to use twice a day for the next 6 days, and for nystatin cream to apply to the affected area on her buttocks cleft as I feel she probably has more of a candidal infection. Return instructions to the emergency department were reviewed. She was told that she should not combine NSAIDs with steroids. Once again, return instructions were reviewed. Disposition is discharged home in stable condition. History & Record Review Discussion w/independent historian: Patient and Friend Lab Data Attestation: I reviewed the patient's lab results. Labs: Laboratory Results - last 24 hr 11/02/24 12:50 WBC 15.0 H RBC 4.68 Hgb 12.4 Hct 38.9 MCV 83.1 MCH 26.5 L MCHC 31.9 L RDW Std Deviation 44.1 H RDW Coeff of Silvia 14.6 Plt Count 362 MPV 9.9 Immature Gran % (Auto) 0.500 Neut % (Auto) 81.9 H Lymph % (Auto) 13.3 L Eaton % (Auto) 4.0 Eos % (Auto) 0.1 Baso % (Auto) 0.2 Absolute Neuts (auto) 12.3 H Absolute Lymphs (auto) 2.00 Nucleated RBC % 0 Sodium 135 Potassium 4.1 Chloride 99 Carbon Dioxide 22.6 Anion Gap 13 BUN 10 Creatinine 0.59 L Estim Creat Clear Calc 263.26 H Est GFR (MDRD) Non-Af 127 BUN/Creatinine Ratio 17.7 Glucose 335 H Calcium 9.3 Discharge Plan Triage Chief Complaint: Diarrhea ED Provider: Bo Lopez Dx/Rx/DC Orders Clinical Impression: Rectal bleeding, Sita infection Instructions: ED Sita Skin Infection (Adult), ED Lower GI Bleeding (Stable) Prescriptions: New nystatin 100,000 unit/gram cream 1 applic topical BID Qty: 30 0RF hydrocortisone acetate [Anusol-HC] 25 mg suppository 25 mg NE BID 6 Days Qty: 12 0RF No Action azithromycin 250 mg tablet See Rx Instructions PO .COMPLEX Qty: 6 0RF Rx Instructions: take 500 mg today (day 1), then 250 mg for 4 days (days 2-5) PO prednisone 10 mg tablet 10 mg PO DIRECTED 12 Days Qty: 28 0RF Rx Instructions: Take 4 tabs once daily days 1-3 3 tabs once daily days 4-6 2 tabs once daily days 7-9 and 1 tab once daily days 10-12. cholecalciferol (vitamin D3) 125 MCG capsule 125 mcg PO DAILY epinephrine 0.3 MG syringe 0.3 mg IM X1 PRN (Reason: Anaphylaxis) Qty: 1 0RF albuterol sulfate 2.5 mg /3 mL (0.083 %) solution for nebulization 2.5 mg inhalation PRN PRN (Reason: ASTHMA) Patient Comments: INHALE 1 VIAL VIA NEBULIZER EVERY 6 HOURS NEEDED FOR SHORTNESS OF BREATH AND WHEEZING lisinopril 5 mg tablet 5 mg PO DAILY Patient Comments: TAKE 1 TABLET BY MOUTH ONCE DAILY atorvastatin 10 mg tablet 10 mg PO QHS Patient Comments: TAKE 1 TABLET BY MOUTH ONCE DAILY AT BEDTIME FOR CHOLESTEROL ondansetron 4 mg tablet,disintegrating 4 mg PO Q8H PRN PRN (Reason: Nausea) Qty: 10 0RF naproxen 500 mg tablet 500 mg PO BID Qty: 14 0RF gabapentin 400 mg capsule 400 mg PO BID norethindrone ac-eth estradiol [Microgestin 1.5/30 (21)] 1.5-30 mg-mcg tablet 1 tab PO DAILY clotrimazole 1 % cream 1 applic topical BID buspirone 15 mg tablet 15 mg PO BID insulin glargine [Lantus Solostar U-100 Insulin] 100 unit/mL (3 mL) insulin pen 72 unit subcut DAILY (DME) FreeStyle Guerrero 3 Sensor Device MISCELLANEOUS QWEEK (DME) pen needle, diabetic [BD Evy 2nd Gen Pen Needle] 32 gauge x 5/32 needle MISCELLANEOUS DAILY Rexulti 3 mg tablet 3 mg PO DAILY oxycodone 5 mg tablet 5 mg PO Q6H PRN (Reason: pain) 3 Days Qty: 12 0RF tamsulosin [Flomax] 0.4 mg capsule 0.4 mg PO DAILY 14 Days Qty: 14 0RF codeine-guaifenesin [Guaifenesin AC] 10-100 mg/5 mL liquid 10 ml PO 4X/DAY PRN (Reason: cough) 7 Days Qty: 280 0RF trazodone 100 mg tablet 200 mg PO QHS prazosin 2 mg capsule 2 mg PO QHS guanfacine [Intuniv ER] 3 mg tablet extended release 24 hr 3 mg PO DAILY metoprolol succinate 50 mg tablet extended release 24 hr 75 mg PO DAILY metformin 500 mg tablet extended release 24 hr 2,000 mg PO QHS lamotrigine 100 mg tablet 100 mg PO QHS fenofibrate nanocrystallized 48 mg tablet 48 mg PO DAILY Slow Release Iron 140 mg (45 mg iron) tablet extended release 140 mg PO DAILY Rexuti oxycodone 5 mg tablet 10 mg PO Q6H PRN (Reason: pain) 3 Days Qty: 20 0RF Primary Care Provider: Miguelito Unger Referrals: Miguelito Unger MD [Primary Care Provider] - 3-5 Days Sabino Howe DO [Med Staff - Active Staff] - As soon as possible Activity Restrictions/Additional Instructions: Return with increased rectal bleeding, new or worsening symptoms. Follow-up with your primary care provider. You may need referral to gastroenterology. Print Language: Khmer Disposition Disposition: Home, Self Care
[2024-11-02 12:57] LABS: Absolute Neutrophil Count 12.3 X10^3/uL (2.0-7.7); Basophil# 0.03 X10^3/uL; Basophil% 0.2 % (0-1); Eosinophil# 0.02 X10^3/uL; Eosinophils% 0.1 % (0-5); Hematocrit 38.9 % (37-47); Hemoglobin 12.4 g/dL (12.0-15.0); Lymphocyte % 13.3 % (19-41); Mean Corp Hgb Conc 31.9 g/dL (32-36); Mean Corpuscular Hgb 26.5 pg (27.0-32.0); Mean Corpuscular Volume 83.1 fL (81-99); Mean Platelet Vol. 9.9 fl (6.2-12.0); NRBC Flagged by Analyzer 0 % (0-5); Neutrophil # 12.31 X10^3/uL (2.7-7.7); Neutrophil % 81.9 % (47-70); Platelet Count 362 K/mm3 (150-450); RBC Distribution Width CV 14.6 % (11.6-14.6); RBC Distribution Width SD 44.1 fl (35.1-43.9); Red Blood Count 4.68 M/mm3 (4.2-5.4)
[2024-11-02 13:26] LABS: Anion Gap 13 (5-15); BUN 10 mg/dL (4-19); BUN/Creat Ratio 17.7 RATIO (10-20); Calcium,Total 9.3 mg/dL (7.6-11.0); Carbon Dioxide 22.6 mmol/L (21.0-32.0); Chloride 99 mmol/L (98-108); Creatinine, Serum 0.59 mg/dL (0.70-1.20); EST Glomerular Filtration Rate 127 (>60); Estimated Creatinine Clearance 263.26 ml/min (50-250); Glucose 335 mg/dL (70-99); Potassium 4.1 mmol/L (3.3-5.1); Sodium Level 135 mmol/L (133-145)
--- NOTE | 2024-11-02 13:40 | CM.ED ---
Social work Reason for referral: ED care plan Referral source: Nehemias RN This SW was approached by Nehemias RN stating patient had been discharged from [facility] ED yesterday and was back in [facility] ED today. Patient has an active ED care plan. SW entered patient's room, introducing self and role at [facility] ED. Patient welcomed SW visit and stated ability to talk with patient's best friend at bedside. Patient confirmed having a PCP, diabetic care team, OBGYN, and oncologist. Patient stated currently going to the [facility] for psychiatry, but switching soon to [place] [id number] where patient reports having a counselor (Skylar Hull). Patient denied further needs at this time and patient expressed only coming today to [facility] ED at the urging of patient's PCP. Hue Daniels, [employer], [employer]
[2024-11-02 13:49] VITALS: BP 160/77; BP 166/88; BP 166/94; PULSE 86; PULSE 95; PULSE 98
[2024-11-02 14:04] VITALS: BP 162/78; PULSE 81; RESP 18; TEMP 36.6; O2SAT 98
== END 2024-11-02 14:09 | disposition home or self-care (01) ==
PROVIDERS: Emergency Provider Emergency Medicine; PCP Family Medicine; Visit Provider Emergency Medicine
DX: K62.5 Hemorrhage of anus and rectum (principal); F31.9 Bipolar disorder, unspecified; E11.9 Type 2 diabetes mellitus without complications; Z79.4 Long term (current) use of insulin; B37.2 Candidiasis of skin and nail; F41.9 Anxiety disorder, unspecified; F90.9 Attention-deficit hyperactivity disorder, unspecified type; K21.9 Gastro-esophageal reflux disease without esophagitis; E78.1 Pure hyperglyceridemia; E28.2 Polycystic ovarian syndrome; M81.0 Age-related osteoporosis without current pathological fracture; G47.30 Sleep apnea, unspecified; J45.909 Unspecified asthma, uncomplicated; Z90.49 Acquired absence of other specified parts of digestive tract; Z79.84 Long term (current) use of oral hypoglycemic drugs; Z79.899 Other long term (current) drug therapy
CPT/HCPCS: 80048; 85025; 99284; A4216

== ENCOUNTER → 2024-11-04 | Outpatient (CLI) | payer MEDICARE, MEDICAID, SELFPAY ==
[2024-11-07 14:08] LABS: Endomysial Antibody IgA Negative (Negative); Immunoglobulin A 189 mg/dL (87-352); t-Transglutaminase IgA <2 U/mL (0-3)
== END | disposition home or self-care (01) ==
PROVIDERS: PCP Family Medicine
DX: K62.5 Hemorrhage of anus and rectum (principal); R19.7 Diarrhea, unspecified
CPT/HCPCS: 36415; 82653; 82784; 83516; 83993; 86140; 86255

== ENCOUNTER 2024-11-05 15:17 | Emergency (ER) | payer MEDICARE, MEDICAID, SELFPAY ==
[2024-11-05 15:18] VITALS: BP 174/97; PULSE 106; RESP 18; TEMP 37; O2SAT 96; BMI 65.3
--- NOTE | 2024-11-05 15:32 | EX.ED.DYSGE1 ---
HPI <VITO Berrios - Last Filed: 11/05/24 19:09> History of Present Illness Chief Complaint: Hyperglycemia Narrative Narrative: 29-year-old female with PMH of DM2, asthma, morbid obesity presents with hyperglycemia with a fingerstick reading of 551 at home. Over the last 2 weeks she has had an upper respiratory infection and wheezing. She went to urgent care and was given a Medrol Dosepak. She has a second urgent care visit and was started on a prednisone taper, she thinks 40 mg and is now on 20 mg. Today her continuous glucose monitor read high prompting her to check a fingerstick which is 551. She has had a few days of fatigue, increased thirst, and increased urination. She is still having the bronchitis symptoms. She takes NovoLog 20 units plus sliding scale for meals and took 25 units before eating lunch. She also takes 80 units of long-acting insulin at bedtime. Denies history of DKA. 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 Abscess of left thigh Morbid obesity with BMI of 60.0-69.9, adult Osteoporosis GERD (gastroesophageal reflux disease) CPAP (continuous positive airway pressure) dependence Sleep apnea Proteinuria due to type 2 diabetes mellitus Obesity Hypertriglyceridemia Diabetes Anxiety disorder, unspecified ADHD Bipolar 1 disorder Herniated disc Cancer Depression History of steroid therapy Walker as ambulation aid Arthritis Kidney stones Anemia Injury of back Injury of head and neck Dietary restriction Gastric reflux Non-smoker History of pain when walking History of echocardiogram Cardiology follow-up encounter History of irregular heartbeat Abner's disease Cancer Diabetes Obesity GERD (gastroesophageal reflux disease) Ovarian cyst Asthma PCOS (polycystic ovarian syndrome) Home Medications ?Medication ?Instructions ?Recorded ?Last Taken ?Type cholecalciferol (vitamin D3) 125 125 mcg PO DAILY supplement 05/17/19 01/24/21 08:00 History mcg (5,000 unit) capsule epinephrine 0.3 mg/0.3 mL 0.3 mg (0.3 mL) IM X1 PRN 05/14/20 01/30/21 08:00 Rx injection, auto-injector Anaphylaxis #1 syringe albuterol sulfate 2.5 mg/3 mL 2.5 mg inhalation PRN PRN ASTHMA 01/25/21 01/30/21 08:00 History (0.083 %) solution for nebulization lisinopril 5 mg tablet 5 mg PO DAILY 01/25/21 01/30/21 08:00 History atorvastatin 10 mg tablet 10 mg PO QHS 08/07/22 Unknown History guanfacine 3 mg tablet,extended 3 mg PO DAILY 01/05/24 Unknown History release 24 hr (Intuniv ER) prazosin 2 mg capsule 2 mg PO QHS 01/05/24 Unknown History trazodone 100 mg tablet 200 mg PO QHS 01/05/24 Unknown History fenofibrate nanocrystallized 48 mg 48 mg PO DAILY 05/21/24 Unknown History tablet ferrous sulfate 140 mg (45 mg 140 mg PO DAILY 05/21/24 Unknown History iron) tablet,extended release (Slow Release Iron) lamotrigine 100 mg tablet 100 mg PO QHS 05/21/24 Unknown History metformin 500 mg tablet,extended 2,000 mg PO QHS DM 05/21/24 09/14/24 History release 24 hr metoprolol succinate 50 mg 75 mg PO DAILY 05/21/24 Unknown History tablet,extended release 24 hr Rexuti 08/10/24 Unknown History blood-glucose sensor (FreeStyle 09/10/24 Unknown History Guerrero 3 Sensor device) brexpiprazole 3 mg tablet (Rexulti) 3 mg PO DAILY 09/10/24 Unknown History buspirone 15 mg tablet 15 mg PO BID 09/10/24 Unknown History clotrimazole 1 % topical cream 1 applic topical BID 09/10/24 Unknown History gabapentin 400 mg capsule 400 mg PO BID 09/10/24 Unknown History insulin glargine 100 unit/mL (3 72 unit subcut DAILY 09/10/24 Unknown History mL) subcutaneous pen (Lantus Solostar U-100 Insulin) naproxen 500 mg tablet 500 mg PO BID #14 tabs 09/10/24 Unknown Rx norethindrone acetate 1.5 1 tab PO DAILY 09/10/24 Unknown History mg-ethinyl estradiol 30 mcg tablet (Microgestin) ondansetron 4 mg disintegrating 4 mg PO Q8H PRN PRN Nausea #10 tabs 09/10/24 Unknown Rx tablet pen needle, diabetic 32 gauge x 09/10/24 Unknown History (BD Evy 2nd Gen Pen Needle) oxycodone 5 mg tablet 5 mg PO Q6H PRN pain 3 days #12 09/13/24 Unknown Rx tabs tamsulosin 0.4 mg capsule (Flomax) 0.4 mg PO DAILY 14 days #14 caps 09/13/24 Unknown Rx oxycodone 5 mg tablet 10 mg (2 x 5 mg) PO Q6H PRN pain 3 09/16/24 Unknown Rx days #20 tabs azithromycin 250 mg tablet See Rx Instructions PO .COMPLEX #6 10/28/24 Unknown Rx tabs prednisone 10 mg tablet 10 mg PO DIRECTED 12 days #28 10/28/24 Unknown Rx tabs codeine 10 mg-guaifenesin 100 mg/5 10 ml PO 4X/DAY PRN cough 7 days 11/01/24 Unknown Rx mL oral liquid (Guaifenesin AC) #280 mL hydrocortisone acetate 25 mg 25 mg IA BID 6 days #12 ea 11/02/24 Unknown Rx rectal suppository (Anusol-HC) nystatin 100,000 unit/gram topical 1 applic topical BID #30 grams 11/02/24 Unknown Rx cream Allergy/AdvReac Type Severity Reaction Status Date / Time nitrofurantoin (From Allergy Intermediate rash Verified 11/05/24 15:18 Macrobid) penicillin V potassium (From Allergy Mild Rash Verified 11/04/24 08:06 Pen-Vee K) adhesive tape (plastic tape) Allergy Rash Verified 11/04/24 08:06 brompheniramine maleate Allergy Shortness Verified 11/04/24 08:06 (From Dimetapp of breath (brompheniramine-PPA)) celery Allergy Swelling Verified 11/04/24 08:06 phenylpropanolamine HCl Allergy Shortness Verified 11/04/24 08:06 (From Dimetapp of breath (brompheniramine-PPA)) amoxicillin trihydrate (From AdvReac Intermediate Diarrhea Verified 11/04/24 08:06 Augmentin) potassium clavulanate (From AdvReac Intermediate Diarrhea Verified 11/04/24 08:06 Augmentin) dicyclomine HCl (From Bentyl) AdvReac Nausea/Vom/ Verified 11/04/24 08:06 Diarrhea fructose AdvReac Nausea/Vom/ Verified 11/04/24 08:06 Diarrhea sertraline (From Zoloft) AdvReac Other Verified 11/04/24 08:06 Family History Father Diabetes Mother Hypertension Grandmother Breast cancer 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 H/O partial adrenalectomy History of back surgery History of adrenal surgery H/O oophorectomy H/O endoscopy History of tonsillectomy and adenoidectomy H/O wisdom tooth extraction H/O ovarian cystectomy Hx of cholecystectomy Social History household members: family Smoking Status: Never smoker alcohol intake: current alcohol intake frequency: a few times a month substance use type: does not use seatbelt use: always do you feel safe at home: Yes ROS <VITO Berrios - Last Filed: 11/05/24 19:09> ROS ED ROS Narrative Constitutional: Negative for fever, chills. CVS: Negative for chest pain. Respiratory: Positive for cough. GI: Negative for abdominal pain, nausea, vomiting. : Positive for frequency. No dysuria. EXAM <VITO Berrios - Last Filed: 11/05/24 19:09> Physical Exam Narrative Exam Narrative: CONST: Morbidly obese patient sitting in no acute distress. EYES: Normal inspection. NECK: Normal inspection. RESP: No respiratory distress, CTAB. CVS: Regular rate and rhythm, no murmur, no gallop. ABD: Soft and nontender, no guarding or rebound, nondistended. SKIN: Color normal, no rash, warm, dry, intact. EXTREMITIES: Normal appearance, no pedal edema. NEURO: Alert and answering questions appropriately. PSYCH: Normal affect. Const Vital Signs: 11/05/24 15:18 11/05/24 18:13 11/05/24 19:19 Temperature 98.6 F 98.3 F Temperature Source Oral Pulse Rate 106 H 97 71 Respiratory Rate 18 16 16 Blood Pressure 174/97 H 154/95 H 154/95 H Blood Pressure Mean 122 114 114 Pulse Ox 96 97 96 Oxygen Delivery Method Room Air Room Air <Dr. Ehsan Campbell MD - Last Filed: 11/05/24 19:32> Physical Exam Const Vital Signs: 11/05/24 15:18 11/05/24 18:13 11/05/24 19:19 Temperature 98.6 F 98.3 F Temperature Source Oral Pulse Rate 106 H 97 71 Respiratory Rate 18 16 16 Blood Pressure 174/97 H 154/95 H 154/95 H Blood Pressure Mean 122 114 114 Pulse Ox 96 97 96 Oxygen Delivery Method Room Air Room Air [facility] <VITO Berrios - Last Filed: 11/05/24 19:09> [facility] Narrative Medical decision making narrative: History gathered from: Patient and mom Differential includes diabetic hyperglycemia versus DKA 29-year-old female with insulin-dependent type 2 diabetes presents with hyperglycemia after being on steroids for the last 2 weeks for bronchitis. She has been taking her short and long-acting insulin as prescribed. She reports fatigue, polydipsia and polyuria. She appears well and nontoxic. Vital signs show BP of 174/97, HR 106, otherwise normal. Her exam is unremarkable. Labs are consistent with diabetic hyperglycemia without DKA. Glucose 437, CO2 21.3, gap 14. Normal electrolytes. Ketones negative. pH 7.415. White count is elevated 15.0. Urinalysis negative. After 2 L of IV fluids and 10 units of subcutaneous insulin her blood sugar is 219. I recommended she stop prednisone. For her bronchitis she can continue nebulizer treatments and antitussives. She reports already having a negative chest x-ray a few days ago so I did not repeat this. She will closely monitor using her continuous glucose monitor and follow her prescribed insulin instructions. Return precautions discussed. She was discharged in stable condition. I have personally performed a face to face assessment of the patient and have reviewed the SARAHI Note. I performed a substantive portion of the visit including all aspects of the following. My quarels findings include: History is remarkable for patient having high blood glucose readings. Seen at urgent care and placed on prednisone. She does have type 2 diabetes on long-term insulin. She has a sliding scale. And spite of administering insulin she has a high glucose reading. She endorses thirst, dry mouth, probably urea and nocturia. She denies fever, chills night sweats. She denies chest pain, pressure or heaviness. She denies shortness of breath. She denies vomiting or diarrhea. She denies dysuria or hematuria. Exam is patient's BMI is 65.4. She is not tachypneic. HEENT exam is remarkable for dry mucosa. Trachea is midline. Lungs are clear to auscultation. Heart is rapid and regular. There is no murmur, gallop or rub. Abdomen is soft nontender. Exam is limited due to body habitus. There are no obvious dermatologic lesions noted. GCS is 15. Medical Decision Making patient with hyperglycemia. Suspect this is due to the fact that she is on prednisone. Will obtain appropriate blood work to assess renal function, CO2 anion gap and electrolytes as well as white count. Beta hydroxybutyrate was obtained to assess for DKA. She will receive 1 L of normal saline wide open. Other additions or changes: [None] History & Record Review Additional record(s) reviewed:: Prior ED visit Lab Data Attestation: I reviewed the patient's lab results. Labs: Laboratory Results - last 24 hr 11/05/24 11/05/24 11/05/24 15:29 15:34 16:00 WBC 15.0 H RBC 4.91 Hgb 13.0 Hct 40.8 MCV 83.1 MCH 26.5 L MCHC 31.9 L RDW Std Deviation 43.9 RDW Coeff of Silvia 14.5 Plt Count 410 MPV 10.0 Immature Gran % (Auto) 1.100 H Neut % (Auto) 78.8 H Lymph % (Auto) 14.4 L Craven % (Auto) 4.2 Eos % (Auto) 1.1 Baso % (Auto) 0.4 Absolute Neuts (auto) 11.8 H Absolute Lymphs (auto) 2.15 Nucleated RBC % 0 Sodium 133 Potassium 4.7 Chloride 97 L Carbon Dioxide 21.3 Anion Gap 14 BUN 11 Creatinine 0.80 Estim Creat Clear Calc 194.03 Est GFR (MDRD) Non-Af 104 BUN/Creatinine Ratio 14.2 Glucose 437 H Calcium 9.6 b-Hydroxybutyric mmol/L 0.2 Urine Color Straw Urine Clarity Clear Urine pH 7.0 Ur Specific [place]da 1.005 Urine Protein Negative Urine Glucose (UA) 1000 H Urine Ketones Negative Urine Occult Blood Negative Urine Nitrite Negative Urine Bilirubin Negative Urine Urobilinogen Normal Ur Leukocyte Esterase 25 H Urine RBC 0-5 SEEN Urine WBC 0-5 SEEN Ur Squamous Epith Cells 0-5 SEEN Urine Bacteria 0 SEEN Urine Mucus 0 SEEN POC Glucose 402 H 11/05/24 11/05/24 17:37 18:57 WBC RBC Hgb Hct MCV MCH MCHC RDW Std Deviation RDW Coeff of Silvia Plt Count MPV Immature Gran % (Auto) Neut % (Auto) Lymph % (Auto) Craven % (Auto) Eos % (Auto) Baso % (Auto) Absolute Neuts (auto) Absolute Lymphs (auto) Nucleated RBC % Sodium Potassium Chloride Carbon Dioxide Anion Gap BUN Creatinine Estim Creat Clear Calc Est GFR (MDRD) Non-Af BUN/Creatinine Ratio Glucose Calcium b-Hydroxybutyric mmol/L Urine Color Urine Clarity Urine pH Ur Specific [place] Urine Protein Urine Glucose (UA) Urine Ketones Urine Occult Blood Urine Nitrite Urine Bilirubin Urine Urobilinogen Ur Leukocyte Esterase Urine RBC Urine WBC Ur Squamous Epith Cells Urine Bacteria Urine Mucus POC Glucose 266 H 219 H ABG Data ABG results: ABG 11/05/24 15:57 Specimen Type AMBER Sample Site Not entered VBG pH 7.42 VBG pO2 70 H VBG HCO3 27 H VBG Total CO2 28 VBG O2 Sat (Calc) 94 H VBG Base Excess 2 POC Mix VBG pCO2 Pt Tmp 42.0 O2 Delivery Device Room Air <Dr. Ehsan Campbell MD - Last Filed: 11/05/24 19:32> MDM MDM Narrative Medical decision making narrative: History gathered from: Patient and mom Differential includes diabetic hyperglycemia versus DKA 29-year-old female with insulin-dependent type 2 diabetes presents with hyperglycemia after being on steroids for the last 2 weeks for bronchitis. She has been taking her short and long-acting insulin as prescribed. She reports fatigue, polydipsia and polyuria. She appears well and nontoxic. Vital signs show BP of 174/97, HR 106, otherwise normal. Her exam is unremarkable. Labs are consistent with diabetic hyperglycemia without DKA. Glucose 437, CO2 21.3, gap 14. Normal electrolytes. Ketones negative. pH 7.415. White count is elevated 15.0. Urinalysis negative. After 2 L of IV fluids and 10 units of subcutaneous insulin her blood sugar is 219. I recommended she stop prednisone. For her bronchitis she can continue nebulizer treatments and antitussives. She reports already having a negative chest x-ray a few days ago so I did not repeat this. She will closely monitor using her continuous glucose monitor and follow her prescribed insulin instructions. Return precautions discussed. She was discharged in stable condition. I have personally performed a face to face assessment of the patient and have reviewed the SARAHI Note. I performed a substantive portion of the visit including all aspects of the following. My quarles findings include: History is remarkable for patient having high blood glucose readings. Seen at urgent care and placed on prednisone. She does have type 2 diabetes on long-term insulin. She has a sliding scale. And spite of administering insulin she has a high glucose reading. She endorses thirst, dry mouth, probably urea and nocturia. She denies fever, chills night sweats. She denies chest pain, pressure or heaviness. She denies shortness of breath. She denies vomiting or diarrhea. She denies dysuria or hematuria. Exam is patient's BMI is 65.4. She is not tachypneic. HEENT exam is remarkable for dry mucosa. Trachea is midline. Lungs are clear to auscultation. Heart is rapid and regular. There is no murmur, gallop or rub. Abdomen is soft nontender. Exam is limited due to body habitus. There are no obvious dermatologic lesions noted. GCS is 15. Medical Decision Making patient with hyperglycemia. Suspect this is due to the fact that she is on prednisone. Will obtain appropriate blood work to assess renal function, CO2 anion gap and electrolytes as well as white count. Beta hydroxybutyrate was obtained to assess for DKA. She will receive 1 L of normal saline wide open. Other additions or changes: Note by physician central supply assistant was reviewed. There are no changes Lab Data Lab results narrative: White count is elevated with slight shift. On the white count was elevated. Labs: Laboratory Results - last 24 hr 11/05/24 11/05/24 11/05/24 15:29 15:34 16:00 WBC 15.0 H RBC 4.91 Hgb 13.0 Hct 40.8 MCV 83.1 MCH 26.5 L MCHC 31.9 L RDW Std Deviation 43.9 RDW Coeff of Silvia 14.5 Plt Count 410 MPV 10.0 Immature Gran % (Auto) 1.100 H Neut % (Auto) 78.8 H Lymph % (Auto) 14.4 L Craven % (Auto) 4.2 Eos % (Auto) 1.1 Baso % (Auto) 0.4 Absolute Neuts (auto) 11.8 H Absolute Lymphs (auto) 2.15 Nucleated RBC % 0 Sodium 133 Potassium 4.7 Chloride 97 L Carbon Dioxide 21.3 Anion Gap 14 BUN 11 Creatinine 0.80 Estim Creat Clear Calc 194.03 Est GFR (MDRD) Non-Af 104 BUN/Creatinine Ratio 14.2 Glucose 437 H Calcium 9.6 b-Hydroxybutyric mmol/L 0.2 Urine Color Straw Urine Clarity Clear Urine pH 7.0 Ur Specific [place] 1.005 Urine Protein Negative Urine Glucose (UA) 1000 H Urine Ketones Negative Urine Occult Blood Negative Urine Nitrite Negative Urine Bilirubin Negative Urine Urobilinogen Normal Ur Leukocyte Esterase 25 H Urine RBC 0-5 SEEN Urine WBC 0-5 SEEN Ur Squamous Epith Cells 0-5 SEEN Urine Bacteria 0 SEEN Urine Mucus 0 SEEN POC Glucose 402 H 11/05/24 11/05/24 17:37 18:57 WBC RBC Hgb Hct MCV MCH MCHC RDW Std Deviation RDW Coeff of Silvia Plt Count MPV Immature Gran % (Auto) Neut % (Auto) Lymph % (Auto) Craven % (Auto) Eos % (Auto) Baso % (Auto) Absolute Neuts (auto) Absolute Lymphs (auto) Nucleated RBC % Sodium Potassium Chloride Carbon Dioxide Anion Gap BUN Creatinine Estim Creat Clear Calc Est GFR (MDRD) Non-Af BUN/Creatinine Ratio Glucose Calcium b-Hydroxybutyric mmol/L Urine Color Urine Clarity Urine pH Ur Specific Bethesda Urine Protein Urine Glucose (UA) Urine Ketones Urine Occult Blood Urine Nitrite Urine Bilirubin Urine Urobilinogen Ur Leukocyte Esterase Urine RBC Urine WBC Ur Squamous Epith Cells Urine Bacteria Urine Mucus POC Glucose 266 H 219 H ABG Data ABG results: ABG 11/05/24 15:57 Specimen Type AMBER Sample Site Not entered VBG pH 7.42 VBG pO2 70 H VBG HCO3 27 H VBG Total CO2 28 VBG O2 Sat (Calc) 94 H VBG Base Excess 2 POC Mix VBG pCO2 Pt Tmp 42.0 O2 Delivery Device Room Air Discharge Plan Triage Chief Complaint: Hyperglycemia ED Midlevel Provider: Aviva Moe ED Provider: Ehsan Campbell Dx/Rx/DC Orders Clinical Impression: Diabetes mellitus with hyperglycemia, History of recent steroid use, Bronchitis, GERD (gastroesophageal reflux disease), Morbid obesity with BMI of 60.0-69.9, adult, Abner disease, PCOS (polycystic ovarian syndrome), Elevated blood-pressure reading without diagnosis of hypertension Instructions: Diabetes and Illness Prescriptions: No Action azithromycin 250 mg tablet See Rx Instructions PO .COMPLEX Qty: 6 0RF Rx Instructions: take 500 mg today (day 1), then 250 mg for 4 days (days 2-5) PO prednisone 10 mg tablet 10 mg PO DIRECTED 12 Days Qty: 28 0RF Rx Instructions: Take 4 tabs once daily days 1-3 3 tabs once daily days 4-6 2 tabs once daily days 7-9 and 1 tab once daily days 10-12. cholecalciferol (vitamin D3) 125 MCG capsule 125 mcg PO DAILY epinephrine 0.3 MG syringe 0.3 mg IM X1 PRN (Reason: Anaphylaxis) Qty: 1 0RF albuterol sulfate 2.5 mg /3 mL (0.083 %) solution for nebulization 2.5 mg inhalation PRN PRN (Reason: ASTHMA) Patient Comments: INHALE 1 VIAL VIA NEBULIZER EVERY 6 HOURS NEEDED FOR SHORTNESS OF BREATH AND WHEEZING lisinopril 5 mg tablet 5 mg PO DAILY Patient Comments: TAKE 1 TABLET BY MOUTH ONCE DAILY atorvastatin 10 mg tablet 10 mg PO QHS Patient Comments: TAKE 1 TABLET BY MOUTH ONCE DAILY AT BEDTIME FOR CHOLESTEROL ondansetron 4 mg tablet,disintegrating 4 mg PO Q8H PRN PRN (Reason: Nausea) Qty: 10 0RF naproxen 500 mg tablet 500 mg PO BID Qty: 14 0RF gabapentin 400 mg capsule 400 mg PO BID norethindrone ac-eth estradiol [Microgestin 1.5/30 (21)] 1.5-30 mg-mcg tablet 1 tab PO DAILY clotrimazole 1 % cream 1 applic topical BID buspirone 15 mg tablet 15 mg PO BID insulin glargine [Lantus Solostar U-100 Insulin] 100 unit/mL (3 mL) insulin pen 72 unit subcut DAILY (DME) FreeStyle Guerrero 3 Sensor Device MISCELLANEOUS QWEEK (DME) pen needle, diabetic [BD Evy 2nd Gen Pen Needle] 32 gauge x /32 needle MISCELLANEOUS DAILY Rexulti 3 mg tablet 3 mg PO DAILY oxycodone 5 mg tablet 5 mg PO Q6H PRN (Reason: pain) 3 Days Qty: 12 0RF tamsulosin [Flomax] 0.4 mg capsule 0.4 mg PO DAILY 14 Days Qty: 14 0RF codeine-guaifenesin [Guaifenesin AC] 10-100 mg/5 mL liquid 10 ml PO 4X/DAY PRN (Reason: cough) 7 Days Qty: 280 0RF trazodone 100 mg tablet 200 mg PO QHS prazosin 2 mg capsule 2 mg PO QHS guanfacine [Intuniv ER] 3 mg tablet extended release 24 hr 3 mg PO DAILY metoprolol succinate 50 mg tablet extended release 24 hr 75 mg PO DAILY metformin 500 mg tablet extended release 24 hr 2,000 mg PO QHS lamotrigine 100 mg tablet 100 mg PO QHS fenofibrate nanocrystallized 48 mg tablet 48 mg PO DAILY Slow Release Iron 140 mg (45 mg iron) tablet extended release 140 mg PO DAILY Rexuti oxycodone 5 mg tablet 10 mg PO Q6H PRN (Reason: pain) 3 Days Qty: 20 0RF nystatin 100,000 unit/gram cream 1 applic topical BID Qty: 30 0RF hydrocortisone acetate [Anusol-HC] 25 mg suppository 25 mg IA BID 6 Days Qty: 12 0RF Primary Care Provider: Miguelito Unger Referrals: Miguelito Unger MD [Primary Care Provider] - Activity Restrictions/Additional Instructions: Stop taking prednisone as this has increased your blood sugars. Follow your insulin sliding scale and take everything as prescribed. Drink plenty of water. Recommend follow-up with your primary care doctor next week. If symptoms worsen come back to the ER. Print Language: Gabonese Disposition Disposition: Home, Self Care Discharge Date/Time: 11/05/24 19:20
[2024-11-05 15:48] LABS: Bedside Glucose 402 mg/dL (74-106)
[2024-11-05 15:48] LABS: Absolute Lymphocyte Count 2.15 X10^3/uL (0.83-4.51); Absolute Neutrophil Count 11.8 X10^3/uL (2.0-7.7); Basophil# 0.06 X10^3/uL; Basophil% 0.4 % (0-1); Eosinophil# 0.17 X10^3/uL; Eosinophils% 1.1 % (0-5); Hematocrit 40.8 % (37-47); Lymphocyte # 2.15 X10^3/ul (0.83-4.51); Lymphocyte % 14.4 % (19-41); Mean Corp Hgb Conc 31.9 g/dL (32-36); Mean Corpuscular Hgb 26.5 pg (27.0-32.0); Mean Corpuscular Volume 83.1 fL (81-99); Monocyte# 0.63 X10^3/uL; Monocyte% 4.2 % (0-10); NRBC Flagged by Analyzer 0 % (0-5); Neutrophil # 11.78 X10^3/uL (2.7-7.7); Neutrophil % 78.8 % (47-70); Platelet Count 410 K/mm3 (150-450); RBC Distribution Width CV 14.5 % (11.6-14.6); RBC Distribution Width SD 43.9 fl (35.1-43.9); Red Blood Count 4.91 M/mm3 (4.2-5.4)
[2024-11-05 16:00] LABS: Blood Gas Specimen Type VEN; O2 Delivery Device Room Air; SITE Not entered; VBG BASE EXCESS 2 mmol/L (-1.0-3.5); VBG Bicarbonate 27 mmol/L (22-26); VBG PO2 70 mmHg (25-40); VBG SO2 94 % (50-70); VBG TCO2 28 mmol/L (23-33); VBG pH 7.42 (7.32-7.42)
[2024-11-05] MEDS: 0.9% Normal Saline (1000mL) 1,000 ML 999 ML IV ×2 (16:01→17:37)
[2024-11-05 16:09] LABS: Bacteria 0 SEEN /hpf (None Seen); Mucous, Urine 0 SEEN /hpf (<or=2+)
[2024-11-05 16:11] LABS: Color, Urine Straw (Yellow); Glucose, Dipstick 1000 mg/dl (Normal); Ketone-Dipstick Negative (Negative); Leukocyte Esterase-Dipstick 25 /ul (Negative); Nitrite-Dipstick Negative (Negative); Occult Blood-Urine Negative /ul (Negative); Protein-Dipstick Negative (Negative); Specific Gravity, Urine 1.005 (1.002-1.030); Urine Bilirubin Dipstick Negative (Negative); Urine Clarity Clear (Clear); Urine Urobilinogen Normal (Normal)
[2024-11-05 16:19] LABS: Anion Gap 14 (5-15); BETA-HYDROXYBUTYRATE 0.2 mmol/L (0.0-0.3); BUN 11 mg/dL (4-19); BUN/Creat Ratio 14.2 RATIO (10-20); Calcium,Total 9.6 mg/dL (7.6-11.0); Carbon Dioxide 21.3 mmol/L (21.0-32.0); Chloride 97 mmol/L (98-108); EST Glomerular Filtration Rate 104 (>60); Estimated Creatinine Clearance 194.03 ml/min (50-250); Glucose 437 mg/dL (70-99); Potassium 4.7 mmol/L (3.3-5.1); Sodium Level 133 mmol/L (133-145)
[2024-11-05] MEDS: Insulin Lispro 100 UNIT/ML INSULN.PEN 10 UNIT SC (16:30)
[2024-11-05 17:43] LABS: Red Blood Cells-Urine 0-5 SEEN /hpf (0-5); White Blood Cells 0-5 SEEN /hpf (0-5)
[2024-11-05 17:44] LABS: Squamous Epithelial Cells - UA 0-5 SEEN /hpf (5-10)
[2024-11-05 17:57] LABS: Bedside Glucose 266 mg/dL (74-106)
[2024-11-05 18:13] VITALS: BP 154/95; PULSE 97; RESP 16; O2SAT 97
--- NOTE | 2024-11-05 19:10 | CM.ED ---
Social Work date of referral: 11/05/2024 Reason for referral: HPOA document not on file Referred by: Social Work identification Patient provided consent for social work visit. Patient's mother/HPOA was with patient and both stated they will bring in a copy the next time they come to the hospital or are close to the hospital to where they can drop it off. No other questions/concerns reported at this time. Noni Bee, CALCINER OPERATOR HELPER, SPORTS PSYCHOLOGIST
[2024-11-05 19:14] LABS: Bedside Glucose 219 mg/dL (74-106)
[2024-11-05 19:19] VITALS: BP 154/95; PULSE 71; RESP 16; TEMP 36.8; O2SAT 96
== END 2024-11-05 19:20 | disposition home or self-care (01) ==
PROVIDERS: Physician Assistant; Emergency Provider Emergency Medicine; PCP Family Medicine; Visit Provider Emergency Medicine
DX: E11.65 Type 2 diabetes mellitus with hyperglycemia (principal); F31.9 Bipolar disorder, unspecified; E66.01 Morbid (severe) obesity due to excess calories; Z68.44 Body mass index [BMI] 60.0-69.9, adult; Z79.4 Long term (current) use of insulin; E24.9 Cushing's syndrome, unspecified; R03.0 Elevated blood-pressure reading, without diagnosis of hypertension; K21.9 Gastro-esophageal reflux disease without esophagitis; F41.9 Anxiety disorder, unspecified; F90.9 Attention-deficit hyperactivity disorder, unspecified type; E78.1 Pure hyperglyceridemia; E28.2 Polycystic ovarian syndrome; D64.9 Anemia, unspecified; M81.0 Age-related osteoporosis without current pathological fracture; G47.30 Sleep apnea, unspecified; J45.909 Unspecified asthma, uncomplicated; Z79.84 Long term (current) use of oral hypoglycemic drugs; Z79.899 Other long term (current) drug therapy
CPT/HCPCS: 80048; 81001; 82010; 82803; 82962; 85025; 96360; 96361; 96372; 99283; A4216

== ENCOUNTER 2024-11-17 13:39 | Emergency (ER) | payer MEDICARE, MEDICAID, SELFPAY ==
[2024-11-17 13:41] VITALS: BP 150/90; PULSE 104; RESP 18; TEMP 36.6; O2SAT 98
--- NOTE | 2024-11-17 14:16 | ED.VIS.LOWEX ---
HPI History of Present Illness HPI Narrative: Patient presents with lower extremity swelling that has been getting worse over the past 5 days. Patient states she recently drove home from [place]. Patient states she went to urgent care. Patient states she was referred to the emergency department for possible DVT. Patient describes her pain as burning and stretching. Patient states it is worse with weightbearing and ambulation. Patient denies any trauma or injury. Patient admits to some numbness and tingling but states she has a history of neuropathy in her feet. 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 Abscess of left thigh Morbid obesity with BMI of 60.0-69.9, adult Osteoporosis GERD (gastroesophageal reflux disease) CPAP (continuous positive airway pressure) dependence Sleep apnea Proteinuria due to type 2 diabetes mellitus Obesity Hypertriglyceridemia Diabetes Anxiety disorder, unspecified ADHD Bipolar 1 disorder Herniated disc Cancer Depression History of steroid therapy Walker as ambulation aid Arthritis Kidney stones Anemia Injury of back Injury of head and neck Dietary restriction Gastric reflux Non-smoker History of pain when walking History of echocardiogram Cardiology follow-up encounter History of irregular heartbeat Hudson's disease Cancer Diabetes Obesity GERD (gastroesophageal reflux disease) Ovarian cyst Asthma PCOS (polycystic ovarian syndrome) Home Medications ?Medication ?Instructions ?Recorded ?Last Taken ?Type cholecalciferol (vitamin D3) 125 125 mcg PO DAILY supplement 05/17/19 01/24/21 08:00 History mcg (5,000 unit) capsule epinephrine 0.3 mg/0.3 mL 0.3 mg (0.3 mL) IM X1 PRN 05/14/20 01/30/21 08:00 Rx injection, auto-injector Anaphylaxis #1 syringe albuterol sulfate 2.5 mg/3 mL 2.5 mg inhalation PRN PRN ASTHMA 01/25/21 01/30/21 08:00 History (0.083 %) solution for nebulization lisinopril 5 mg tablet 5 mg PO DAILY 01/25/21 01/30/21 08:00 History atorvastatin 10 mg tablet 10 mg PO QHS 08/07/22 Unknown History guanfacine 3 mg tablet,extended 3 mg PO DAILY 01/05/24 Unknown History release 24 hr (Intuniv ER) prazosin 2 mg capsule 2 mg PO QHS 01/05/24 Unknown History trazodone 100 mg tablet 200 mg PO QHS 01/05/24 Unknown History fenofibrate nanocrystallized 48 mg 48 mg PO DAILY 05/21/24 Unknown History tablet ferrous sulfate 140 mg (45 mg 140 mg PO DAILY 05/21/24 Unknown History iron) tablet,extended release (Slow Release Iron) lamotrigine 100 mg tablet 100 mg PO QHS 05/21/24 Unknown History metformin 500 mg tablet,extended 2,000 mg PO QHS DM 05/21/24 09/14/24 History release 24 hr metoprolol succinate 50 mg 75 mg PO DAILY 05/21/24 Unknown History tablet,extended release 24 hr Rexuti 08/10/24 Unknown History blood-glucose sensor (FreeStyle 09/10/24 Unknown History Guerrero 3 Sensor device) brexpiprazole 3 mg tablet (Rexulti) 3 mg PO DAILY 09/10/24 Unknown History buspirone 15 mg tablet 15 mg PO BID 09/10/24 Unknown History clotrimazole 1 % topical cream 1 applic topical BID 09/10/24 Unknown History gabapentin 400 mg capsule 400 mg PO BID 09/10/24 Unknown History insulin glargine 100 unit/mL (3 72 unit subcut DAILY 09/10/24 Unknown History mL) subcutaneous pen (Lantus Solostar U-100 Insulin) naproxen 500 mg tablet 500 mg PO BID #14 tabs 09/10/24 Unknown Rx norethindrone acetate 1.5 1 tab PO DAILY 09/10/24 Unknown History mg-ethinyl estradiol 30 mcg tablet (Microgestin) ondansetron 4 mg disintegrating 4 mg PO Q8H PRN PRN Nausea #10 tabs 09/10/24 Unknown Rx tablet pen needle, diabetic 32 gauge x 09/10/24 Unknown History (BD Evy 2nd Gen Pen Needle) oxycodone 5 mg tablet 5 mg PO Q6H PRN pain 3 days #12 09/13/24 Unknown Rx tabs tamsulosin 0.4 mg capsule (Flomax) 0.4 mg PO DAILY 14 days #14 caps 09/13/24 Unknown Rx oxycodone 5 mg tablet 10 mg (2 x 5 mg) PO Q6H PRN pain 3 09/16/24 Unknown Rx days #20 tabs azithromycin 250 mg tablet See Rx Instructions PO .COMPLEX #6 10/28/24 Unknown Rx tabs codeine 10 mg-guaifenesin 100 mg/5 10 ml PO 4X/DAY PRN cough 7 days 11/01/24 Unknown Rx mL oral liquid (Guaifenesin AC) #280 mL hydrocortisone acetate 25 mg 25 mg ME BID 6 days #12 ea 11/02/24 Unknown Rx rectal suppository (Anusol-HC) nystatin 100,000 unit/gram topical 1 applic topical BID #30 grams 11/02/24 Unknown Rx cream Allergy/AdvReac Type Severity Reaction Status Date / Time nitrofurantoin (From Allergy Intermediate rash Verified 11/17/24 13:43 Macrobid) penicillin V potassium (From Allergy Mild Rash Verified 11/17/24 13:43 Pen-Vee K) adhesive tape (plastic tape) Allergy Rash Verified 11/17/24 13:43 brompheniramine maleate Allergy Shortness Verified 11/17/24 13:43 (From Dimetapp of breath (brompheniramine-PPA)) celery Allergy Swelling Verified 11/17/24 13:43 phenylpropanolamine HCl Allergy Shortness Verified 11/17/24 13:43 (From Dimetapp of breath (brompheniramine-PPA)) amoxicillin trihydrate (From AdvReac Intermediate Diarrhea Verified 11/17/24 13:43 Augmentin) potassium clavulanate (From AdvReac Intermediate Diarrhea Verified 11/17/24 13:43 Augmentin) dicyclomine HCl (From Bentyl) AdvReac Nausea/Vom/ Verified 11/17/24 13:43 Diarrhea fructose AdvReac Nausea/Vom/ Verified 11/17/24 13:43 Diarrhea sertraline (From Zoloft) AdvReac Other Verified 11/17/24 13:43 Family History Father Diabetes Mother Hypertension Grandmother Breast cancer 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 H/O partial adrenalectomy History of back surgery History of adrenal surgery H/O oophorectomy H/O endoscopy History of tonsillectomy and adenoidectomy H/O wisdom tooth extraction H/O ovarian cystectomy Hx of cholecystectomy Social History household members: family Smoking Status: Never smoker alcohol intake: current alcohol intake frequency: a few times a month substance use type: does not use seatbelt use: always do you feel safe at home: Yes ROS ROS ED Constitutional Constitutional ED: Denies chills or fever(s) Eyes Eyes: Denies blurry vision or change in vision ENT ENT ED: Denies rhinorrhea or sore throat Cardiovascular Cardiovascular: Denies chest pain or palpitations Respiratory/Chest Respiratory/Chest: Denies cough or dyspnea Gastrointestinal Gastrointestinal: Denies nausea or vomiting Genitourinary Genitourinary ED: Denies dysuria or hematuria Musculoskeletal Musculoskeletal: Denies back pain or neck pain Integumentary Denies abscess or rash Neurologic Neurologic: Denies headache(s) or weakness Allergic/Immunologic Allergic/Immunologic ED: Denies mouth swelling or urticaria EXAM Physical Exam Const Vital Signs: 11/17/24 13:41 Temperature 98 F Temperature Source Temporal Pulse Rate 104 H Respiratory Rate 18 Blood Pressure 150/90 H Blood Pressure Mean 110 Pulse Ox 98 Oxygen Delivery Method Room Air Positive well nourished and well developed General Appearance ED: well developed and NAD HEENT Reports moist mucous membranes Neck full ROM Extremity Extremity Narrative: There is mild tenderness over the feet and ankles bilaterally. There is nonpitting edema of the bilateral lower extremities. There is no erythema or warmth noted. Pedal pulses are equal bilaterally. Sensation was intact to light touch in all digits. Capillary refill is less than 2 seconds. Strength is 5/5 bilaterally in the lower extremities. Neuro oriented x3, CN's II-XII intact bilaterally and moves all extremities Sensorium / Orientation: alert Motor Exam: strength 5/5 throughout Psych mental status grossly normal MDM MDM MDM Narrative Medical decision making narrative: Differential diagnosis includes DVT, muscle strain, and peripheral edema. Venous duplex of the lower extremities will be obtained to assess for DVT. History & Record Review Additional record(s) reviewed:: Prior ED visit and Prior labs Radiography Diagnostic Testing: Venous duplex of the lower extremities was obtained. There is no evidence of DVT. Treatment and Re-Evaluation Narrative: Patient was advised of her findings. Patient was instructed to ice and elevate her lower extremities. Patient was instructed to follow-up with her primary care physician in 5 to 7 days. Patient understood and was agreeable with the plan. All questions were answered. Discharge Plan Triage Chief Complaint: Lower Extremity Injury ED Provider: Gio Ceron Dx/Rx/DC Orders Clinical Impression: Peripheral edema, Diabetes Instructions: ED Peripheral Edema, Bilateral Prescriptions: No Action azithromycin 250 mg tablet See Rx Instructions PO .COMPLEX Qty: 6 0RF Rx Instructions: take 500 mg today (day 1), then 250 mg for 4 days (days 2-5) PO cholecalciferol (vitamin D3) 125 MCG capsule 125 mcg PO DAILY epinephrine 0.3 MG syringe 0.3 mg IM X1 PRN (Reason: Anaphylaxis) Qty: 1 0RF albuterol sulfate 2.5 mg /3 mL (0.083 %) solution for nebulization 2.5 mg inhalation PRN PRN (Reason: ASTHMA) Patient Comments: INHALE 1 VIAL VIA NEBULIZER EVERY 6 HOURS NEEDED FOR SHORTNESS OF BREATH AND WHEEZING lisinopril 5 mg tablet 5 mg PO DAILY Patient Comments: TAKE 1 TABLET BY MOUTH ONCE DAILY atorvastatin 10 mg tablet 10 mg PO QHS Patient Comments: TAKE 1 TABLET BY MOUTH ONCE DAILY AT BEDTIME FOR CHOLESTEROL ondansetron 4 mg tablet,disintegrating 4 mg PO Q8H PRN PRN (Reason: Nausea) Qty: 10 0RF naproxen 500 mg tablet 500 mg PO BID Qty: 14 0RF gabapentin 400 mg capsule 400 mg PO BID norethindrone ac-eth estradiol [Microgestin 1.5/30 (21)] 1.5-30 mg-mcg tablet 1 tab PO DAILY clotrimazole 1 % cream 1 applic topical BID buspirone 15 mg tablet 15 mg PO BID insulin glargine [Lantus Solostar U-100 Insulin] 100 unit/mL (3 mL) insulin pen 72 unit subcut DAILY (DME) FreeStyle Guerrero 3 Sensor Device MISCELLANEOUS QWEEK (DME) pen needle, diabetic [BD Evy 2nd Gen Pen Needle] 32 gauge x /32 needle MISCELLANEOUS DAILY Rexulti 3 mg tablet 3 mg PO DAILY oxycodone 5 mg tablet 5 mg PO Q6H PRN (Reason: pain) 3 Days Qty: 12 0RF tamsulosin [Flomax] 0.4 mg capsule 0.4 mg PO DAILY 14 Days Qty: 14 0RF codeine-guaifenesin [Guaifenesin AC] 10-100 mg/5 mL liquid 10 ml PO 4X/DAY PRN (Reason: cough) 7 Days Qty: 280 0RF trazodone 100 mg tablet 200 mg PO QHS prazosin 2 mg capsule 2 mg PO QHS guanfacine [Intuniv ER] 3 mg tablet extended release 24 hr 3 mg PO DAILY metoprolol succinate 50 mg tablet extended release 24 hr 75 mg PO DAILY metformin 500 mg tablet extended release 24 hr 2,000 mg PO QHS lamotrigine 100 mg tablet 100 mg PO QHS fenofibrate nanocrystallized 48 mg tablet 48 mg PO DAILY Slow Release Iron 140 mg (45 mg iron) tablet extended release 140 mg PO DAILY Rexuti oxycodone 5 mg tablet 10 mg PO Q6H PRN (Reason: pain) 3 Days Qty: 20 0RF nystatin 100,000 unit/gram cream 1 applic topical BID Qty: 30 0RF hydrocortisone acetate [Anusol-HC] 25 mg suppository 25 mg ME BID 6 Days Qty: 12 0RF Primary Care Provider: Miguelito Unger Referrals: Miguelito Unger MD [Primary Care Provider] - 5-7 Days Print Language: Burmese Disposition Disposition: Home, Self Care
--- NOTE | 2024-11-17 14:34 | VDLE_ITS ---
Reason For Study Reason For Study: BLE Pain RIGHT LEFT GSV is normal. GSV is normal. CFV is compressible, spontaneous, phasic, competent CFV is compressible, spontaneous, phasic, competent, and demonstrates normal augmentation. and demonstrates normal augmentation. FV is compressible, spontaneous, phasic, competent FV is compressible, spontaneous, phasic, competent and demonstrates normal augmentation. and demonstrates normal augmentation. POP V is compressible, spontaneous, phasic, competent POP V is compressible, spontaneous, phasic, competent and demonstrates normal augmentation. and demonstrates normal augmentation. T/P Trunk is compressible. T/P Trunk is compressible. PTV is compressible. PTV is compressible. RT PerV is compressible. LT PerV is compressible. Procedure This is a venous duplex using B-mode, color flow and spectral Doppler. Exam performed portable in ED. The exam was diagnostic. The study was technically difficult. A preliminary report was called and/or faxed to Dr Ceron. VL/Venous Duplex US - Anthony Extrem Interpretation Summary Deep veins of the bilateral lower extremities are patent and compressible segme ntally. There is no evidence of bilateral lower extremity deep vein thrombosis. The bilateral great saphenous veins appea r patent and compressible segmentally. Ordering Physician: Gio Ceron Referring Physician: Miguelito Unger Performed By: Chay Paredes, RVT
[2024-11-17 16:05] VITALS: BP 127/57; PULSE 84; RESP 18; O2SAT 97; BMI 62.3
== END 2024-11-17 16:07 | disposition home or self-care (01) ==
PROVIDERS: Emergency Provider Emergency Medicine; PCP Family Medicine; Visit Provider Emergency Medicine
DX: R60.0 Localized edema (principal); E11.9 Type 2 diabetes mellitus without complications; Z79.4 Long term (current) use of insulin; Z90.49 Acquired absence of other specified parts of digestive tract; K21.9 Gastro-esophageal reflux disease without esophagitis; E28.2 Polycystic ovarian syndrome; Z99.89 Dependence on other enabling machines and devices; R20.2 Paresthesia of skin; D64.9 Anemia, unspecified
CPT/HCPCS: 93970; 99282

== ENCOUNTER 2024-11-28 18:30 | Emergency (ER) | payer MEDICARE, MEDICAID, SELFPAY ==
[2024-11-28 18:32] VITALS: BP 191/80; PULSE 106; RESP 18; TEMP 36.4; O2SAT 98; BMI 59.3
--- NOTE | 2024-11-28 19:29 | EKG12_ITS ---
Test Reason : CP Blood Pressure : */* mmHG Vent. Rate : 100 BPM Atrial Rate : 100 BPM P-R Int : 164 ms QRS Dur : 92 ms QT Int : 372 ms P-R-T Axes : 12 34 35 degrees QTcB Int : 479 ms Normal sinus rhythm Cannot rule out Anterior infarct , age undetermined Abnormal ECG Confirmed by MARIO MARCH, TED ([id number]), videotape editor KRISTIE CARRERO ([id number]) on 11/30/2024 11:04:02 AM Referred By: SABA Confirmed By: TED MARTIN MD
--- NOTE | 2024-11-28 19:39 | ED.RN ---
Called for pt at 1938 with no answer. LWBS.
== END 2024-11-28 19:23 | disposition left against medical advice (07) ==
LOC: ED 19:42
PROVIDERS: PCP Family Medicine
DX: Z53.21 Procedure and treatment not carried out due to patient leaving prior to being seen by health care provider (principal)
CPT/HCPCS: 93005

== ENCOUNTER → 2024-12-20 | Outpatient (CLI) | payer MEDICARE, MEDICAID, SELFPAY ==
--- NOTE | 2024-12-20 10:22 | RAD_ITS ---
EXAM: XR Lumbosacral Spine, 2 or 3 Views CLINICAL INDICATION: POSTLAMINECTOMY SYNDROME, NOT ELSEWHERE CLASSIFIED TECHNIQUE: Frontal and lateral views of the lumbar spine and sacrum. COMPARISON: No relevant prior studies available. FINDINGS: VERTEBRAE: Mild endplate degenerative changes and disc disease of L4-S1. Mild facet arthropathy of L4-S1. No acute fracture. Normal alignment. SACRUM/COCCYX: Unremarkable as visualized. No acute fracture. DISC SPACES: No acute findings. No significant narrowing. SOFT TISSUES: Unremarkable. RAD/Lumbar Spine 2 or 3 Views IMPRESSION: Degenerative changes as above. Reading [facility]
--- NOTE | 2024-12-20 10:22 | RAD_ITS ---
EXAM: XR Lumbosacral Spine, 2 or 3 Views CLINICAL INDICATION: POSTLAMINECTOMY SYNDROME, NOT ELSEWHERE CLASSIFIED TECHNIQUE: Frontal and lateral views of the lumbar spine and sacrum. COMPARISON: No relevant prior studies available. FINDINGS: VERTEBRAE: Mild endplate degenerative changes and disc disease of L4-S1. Mild facet arthropathy of L4-S1. No acute fracture. Normal alignment. SACRUM/COCCYX: Unremarkable as visualized. No acute fracture. DISC SPACES: No acute findings. No significant narrowing. SOFT TISSUES: Unremarkable. RAD/Lumbar Spine 2 or 3 Views IMPRESSION: Degenerative changes as above. Reading Location[facility]
--- NOTE | 2024-12-20 10:22 | RAD_ITS ---
EXAM: XR Lumbosacral Spine, 2 or 3 Views CLINICAL INDICATION: POSTLAMINECTOMY SYNDROME, NOT ELSEWHERE CLASSIFIED TECHNIQUE: Frontal and lateral views of the lumbar spine and sacrum. COMPARISON: No relevant prior studies available. FINDINGS: VERTEBRAE: Mild endplate degenerative changes and disc degeneration of L5-S1. No acute fracture. Normal alignment. SACRUM/COCCYX: Unremarkable as visualized. No acute fracture. DISC SPACES: No acute findings. No significant narrowing. SOFT TISSUES: Unremarkable. RAD/Sacrum-Coccyx min 2 Views IMPRESSION: Mild endplate degenerative changes and disc degeneration of L5-S1. Reading [facility]
--- NOTE | 2024-12-20 10:22 | RAD_ITS ---
EXAM: XR Lumbosacral Spine, 2 or 3 Views CLINICAL INDICATION: POSTLAMINECTOMY SYNDROME, NOT ELSEWHERE CLASSIFIED TECHNIQUE: Frontal and lateral views of the lumbar spine and sacrum. COMPARISON: No relevant prior studies available. FINDINGS: VERTEBRAE: Mild endplate degenerative changes and disc degeneration of L5-S1. No acute fracture. Normal alignment. SACRUM/COCCYX: Unremarkable as visualized. No acute fracture. DISC SPACES: No acute findings. No significant narrowing. SOFT TISSUES: Unremarkable. RAD/Sacrum-Coccyx min 2 Views IMPRESSION: Mild endplate degenerative changes and disc degeneration of L5-S1. Reading Location[facility]
== END | disposition home or self-care (01) ==
LOC: RAD 10:16
PROVIDERS: PCP Family Medicine; Referring Provider Anesthesiology Pain Medicine; Visit Provider Anesthesiology Pain Medicine
DX: M96.1 Postlaminectomy syndrome, not elsewhere classified (principal)
CPT/HCPCS: 72100; 72220

== ENCOUNTER 2025-01-16 10:18 | Emergency (ER) | payer MEDICARE, MEDICAID, SELFPAY ==
[2025-01-16 10:18] VITALS: BP 170/86; PULSE 115; RESP 18; TEMP 36.1; O2SAT 98; BMI 61.7
[2025-01-16] MEDS: Lidocaine 2% Viscous15 ML UDC 15 ML PO (11:28)
--- NOTE | 2025-01-16 11:55 | EX.ED.DYSGE1 ---
HPI History of Present Illness Chief Complaint: Abd Pain Detail of Chief Complaint: Patient presents with epigastric pain after taking a new medication. Informant: patient Onset/Context/Timing Onset: Days Context: Sudden Onset Timing: Intermittent Quality: Burning sensation epigastric and mid chest with warm sensation of the back Location: Upper GI Current Severity: Mild Maximum Severity: Moderate Worsened by: Supine Relieved by: Nothing Associated Symptoms Associated Symptoms: No other symptoms Narrative Narrative: Patient is a 29-year-old female. She has history of panic attacks, anxiety disorder, exocrine pancreatic insufficiency, renal colic, reactive airway disease, ovarian cysts, obstructive sleep apnea, GERD and hypertriglyceridemia. There is also history of diabetes. She is on metformin. Patient presents with epigastric/heartburn located in the epigastric area and chest. There is no other associated symptoms. Made worse when she is supine. Nothing alleviates it. There is no radiation of the pain. She denies black or maroon-colored stool. Prior similar symptoms: No Recent Illness/Hospitalization: No PFSH FORMERLY [facility], 1928–1983 Medical History Panic attacks Palpitations Tachycardia Vitamin D deficiency Exocrine pancreatic insufficiency Renal colic Kidney stone on right side Facial paresthesia Chronic low back pain with sciatica RAD (reactive airway disease) Chest pain of uncertain etiology Lumbar degenerative disc disease Blandon disease Paratubal cyst Morbid obesity with BMI of 60.0-69.9, adult Osteoporosis GERD (gastroesophageal reflux disease) CPAP (continuous positive airway pressure) dependence Sleep apnea Proteinuria due to type 2 diabetes mellitus Hypertriglyceridemia Diabetes Anxiety disorder, unspecified ADHD Bipolar 1 disorder Cancer Depression Arthritis Injury of back Injury of head and neck History of irregular heartbeat Ovarian cyst Asthma PCOS (polycystic ovarian syndrome) Home Medications ?Medication ?Instructions ?Recorded ?Last Taken ?Type cholecalciferol (vitamin D3) 125 125 mcg PO DAILY supplement 05/17/19 01/24/21 08:00 History mcg (5,000 unit) capsule epinephrine 0.3 mg/0.3 mL 0.3 mg (0.3 mL) IM X1 PRN 05/14/20 01/30/21 08:00 Rx injection, auto-injector Anaphylaxis #1 syringe albuterol sulfate 2.5 mg/3 mL 2.5 mg inhalation PRN PRN ASTHMA 01/25/21 01/30/21 08:00 History (0.083 %) solution for nebulization lisinopril 5 mg tablet 5 mg PO DAILY 01/25/21 01/30/21 08:00 History atorvastatin 10 mg tablet 10 mg PO QHS 08/07/22 Unknown History guanfacine 3 mg tablet,extended 3 mg PO DAILY 01/05/24 Unknown History release 24 hr (Intuniv ER) prazosin 2 mg capsule 2 mg PO QHS 01/05/24 Unknown History fenofibrate nanocrystallized 48 mg 48 mg PO DAILY 05/21/24 Unknown History tablet lamotrigine 100 mg tablet 100 mg PO QHS 05/21/24 Unknown History metformin 500 mg tablet,extended 2,000 mg PO QHS DM 05/21/24 09/14/24 History release 24 hr metoprolol succinate 50 mg 75 mg PO DAILY 05/21/24 Unknown History tablet,extended release 24 hr Rexuti 08/10/24 Unknown History blood-glucose sensor (FreeStyle 09/10/24 Unknown History Guerrero 3 Sensor device) brexpiprazole 3 mg tablet (Rexulti) 3 mg PO DAILY 09/10/24 Unknown History buspirone 15 mg tablet 15 mg PO BID 09/10/24 Unknown History clotrimazole 1 % topical cream 1 applic topical BID 09/10/24 Unknown History gabapentin 400 mg capsule 400 mg PO BID 09/10/24 Unknown History norethindrone acetate 1.5 1 tab PO DAILY 09/10/24 Unknown History mg-ethinyl estradiol 30 mcg tablet (Microgestin) ondansetron 4 mg disintegrating 4 mg PO Q8H PRN PRN Nausea #10 tabs 09/10/24 Unknown Rx tablet pen needle, diabetic 32 gauge x 09/10/24 Unknown History (BD Evy 2nd Gen Pen Needle) oxycodone 5 mg tablet 10 mg (2 x 5 mg) PO Q6H PRN pain 3 09/16/24 Unknown Rx days #20 tabs codeine 10 mg-guaifenesin 100 mg/5 10 ml PO 4X/DAY PRN cough 7 days 11/01/24 Unknown Rx mL oral liquid (Guaifenesin AC) #280 mL hydrocortisone acetate 25 mg 25 mg DE BID 6 days #12 ea 11/02/24 Unknown Rx rectal suppository (Anusol-HC) nystatin 100,000 unit/gram topical 1 applic topical BID #30 grams 11/02/24 Unknown Rx cream eovkow-mcvdshje-rrgvupi 2 cap PO TID EPI #300 caps 11/18/24 Unknown Rx 36,000-114,000-180,000 unit capsule,delay rel (Creon) ascorbic acid (vitamin C) 500 mg 500 mg PO BID 12/16/24 Unknown History tablet famotidine 20 mg tablet 20 mg PO DAILY 12/16/24 Unknown History ferrous sulfate 140 mg (45 mg 140 mg PO BID 12/16/24 Unknown History iron) tablet,extended release (Slow Release Iron) furosemide 20 mg tablet 20 mg PO DAILY 12/16/24 Unknown History insulin aspart U-100 100 unit/mL subcut 12/16/24 Unknown History (3 mL) subcutaneous pen (Novolog FlexPen U-100 Insulin aspart) insulin glargine 100 unit/mL (3 82 unit subcut DAILY 12/16/24 Unknown History mL) subcutaneous pen (Lantus Solostar U-100 Insulin) magnesium oxide 400 mg (241.3 mg 400 mg PO QDAY 12/16/24 Unknown History magnesium) tablet naproxen 500 mg tablet 500 mg PO BID PRN 12/16/24 Unknown History pantoprazole 40 mg tablet,delayed 40 mg PO BID 12/16/24 Unknown History release trazodone 100 mg tablet 100 mg PO QHS 12/16/24 Unknown History aluminum-mag hydroxide-simethicone 5 ml PO Q3H PRN heartburn #480 mL 01/16/25 Unknown Rx 200 mg-200 mg-20 mg/5 mL oral susp (Advanced Antacid-Antigas) Allergy/AdvReac Type Severity Reaction Status Date / Time celery Allergy Severe Anaphylaxis Verified 01/16/25 10:19 empagliflozin (From Allergy Intermediate yeast Verified 01/16/25 10:19 Jardiance) infection nitrofurantoin (From Allergy Intermediate rash Verified 01/16/25 10:19 Macrobid) sulfamethoxazole (From Allergy Intermediate intolerance Verified 01/16/25 10:19 Bactrim) trimethoprim (From Bactrim) Allergy Intermediate intolerance Verified 01/16/25 10:19 penicillin V potassium (From Allergy Mild Rash Verified 01/16/25 10:19 Pen-Vee K) adhesive tape (plastic tape) Allergy Rash Verified 01/16/25 10:19 brompheniramine maleate Allergy Shortness Verified 01/16/25 10:19 (From Dimetapp of breath (brompheniramine-PPA)) phenylpropanolamine HCl Allergy Shortness Verified 01/16/25 10:19 (From Dimetapp of breath (brompheniramine-PPA)) amoxicillin trihydrate (From AdvReac Intermediate Diarrhea Verified 01/16/25 10:19 Augmentin) metformin AdvReac Intermediate Diarrhea Verified 01/16/25 10:19 potassium clavulanate (From AdvReac Intermediate Diarrhea Verified 01/16/25 10:19 Augmentin) dicyclomine HCl (From Bentyl) AdvReac Nausea/Vom/ Verified 01/16/25 10:19 Diarrhea fructose AdvReac Nausea/Vom/ Verified 01/16/25 10:19 Diarrhea sertraline (From Zoloft) AdvReac Other Verified 01/16/25 10:19 Family History Father Diabetes Hypertension Mother Hypertension Asthma Grandmother Breast cancer Hypertension Heart disease Grandfather Hypertension Diabetes 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 H/O partial adrenalectomy History of back surgery History of adrenal surgery H/O oophorectomy History of tonsillectomy and adenoidectomy H/O wisdom tooth extraction H/O ovarian cystectomy Hx of cholecystectomy Social History household members: family Smoking Status: Never smoker alcohol intake: current alcohol intake frequency: a few times a month substance use type: marijuana seatbelt use: always do you feel safe at home: Yes ROS ROS ED Constitutional Constitutional ED: Denies chills, fever(s), subjective, sweats or weight loss Eyes Eyes: Reports other Details: Detailed HPI narrative ; Denies blurry vision or change in vision ENT ENT ED: Denies ear pain, rhinorrhea or sore throat Cardiovascular Cardiovascular: Reports chest pain; Denies orthopnea, palpitations, paroxysmal nocturnal dyspnea or racing heartbeat Respiratory/Chest Respiratory/Chest: Denies cough, dyspnea, dyspnea on exertion, orthopnea or paroxysmal nocturnal dyspnea Gastrointestinal Gastrointestinal: Reports abdominal pain and other Details: Detailed HPI narrative ; Denies constipation, diarrhea, melena, nausea or vomiting Musculoskeletal Musculoskeletal: Denies back pain Hematologic/Lymphatic Hematologic/Lymphatic: Reports systems reviewed and no addt'l complaints, except as documented EXAM Physical Exam Const Vital Signs: 01/16/25 10:18 Temperature 96.9 F L Temperature Source Temporal Pulse Rate 115 H Respiratory Rate 18 Blood Pressure 170/86 H Blood Pressure Mean 114 Pulse Ox 98 Oxygen Delivery Method Room Air Positive well nourished and well developed Constitutional Narrative: BMI 61.7 General Appearance ED: well developed and NAD; Negative for pallor HEENT Reports moist mucous membranes HEENT Narrative: Head is atraumatic normocephalic. Ears normal. Posterior pharynx is normal. Eyes PERRL and EOMs intact bilaterally General Eye ED: Negative for pale conjunctiva or scleral icterus Resp normal respiratory effort and clear to auscultation bilaterally Cardio regular rhythm, S1 normal heart sound, S2 normal heart sound and no murmurs Rate: tachycardic GI normal to inspection, nondistended, normoactive bowel sounds, non-distended and no masses; Negative for non-tender or hepatosplenomegaly GI Narrative: Exam is limited due to body habitus. Patient has significant tenderness in the epigastric area. This reproduces her pain. Extremity General Extremety ED: Negative for edema or tenderness General Extremity: Negative for edema Neuro oriented x3 and CN's II-XII intact bilaterally Sensorium / Orientation: alert Psych mental status grossly normal Skin no rashes or lesions noted, no wounds and skin turgor normal General Skin Exam: elasticity normal; Negative for jaundice or pallor MDM MDM MDM Narrative Medical decision making narrative: Patient presents with heartburn and epigastric pain. She has history of reflux. Patient's pain is reproducible. She has been seen in the past for GERD. Plan is GI cocktail. If she does not resolve with GI cocktail will workup for biliary disease, hepatic disease, peptic ulcer disease, pancreatitis etc. History & Record Review Additional record(s) reviewed:: Prior ED visit (Patient was seen end of December for peripheral edema. She was seen by me end of October for hyperglycemia. She also was seen in October for Sita infection. Also in October she was seen for GERD.) and Prior labs Discharge Plan Triage Chief Complaint: Abd Pain ED Provider: Campbell,Ehsan Dx/Rx/DC Orders Clinical Impression: Chest pain due to GERD, Sleep apnea, Anxiety disorder, unspecified, Elevated blood pressure reading Instructions: ED GERD (Adult), ED Hypertension, To Be Confirmed Prescriptions: New alum-mag hydroxide-simeth [Advanced Antacid-Antigas] 200-200-20 mg/5 mL suspension 5 ml PO Q3H PRN (Reason: heartburn) Qty: 480 0RF No Action furosemide 20 mg tablet 20 mg PO DAILY naproxen 500 mg tablet 500 mg PO BID PRN magnesium oxide 400 mg (241.3 mg magnesium) tablet 400 mg PO QDAY pantoprazole 40 mg tablet,delayed release (DR/EC) 40 mg PO BID famotidine 20 mg tablet 20 mg PO DAILY insulin aspart U-100 [Novolog FlexPen U-100 Insulin] 100 unit/mL (3 mL) insulin pen subcut Patient Comments: INJECT 20 UNITS SUBCUTANEOUSLY WITH MEALS AND INJECT PER SLIDING SCALE: 1 UNIT FOR EVERY 50 OVER 150 PRE MEAL BLOOD GLUCOSE. MAX 105 UNITS DAILY. ascorbic acid (vitamin C) 500 mg tablet 500 mg PO BID cholecalciferol (vitamin D3) 125 MCG capsule 125 mcg PO DAILY epinephrine 0.3 MG syringe 0.3 mg IM X1 PRN (Reason: Anaphylaxis) Qty: 1 0RF albuterol sulfate 2.5 mg /3 mL (0.083 %) solution for nebulization 2.5 mg inhalation PRN PRN (Reason: ASTHMA) Patient Comments: INHALE 1 VIAL VIA NEBULIZER EVERY 6 HOURS NEEDED FOR SHORTNESS OF BREATH AND WHEEZING lisinopril 5 mg tablet 5 mg PO DAILY Patient Comments: TAKE 1 TABLET BY MOUTH ONCE DAILY atorvastatin 10 mg tablet 10 mg PO QHS Patient Comments: TAKE 1 TABLET BY MOUTH ONCE DAILY AT BEDTIME FOR CHOLESTEROL ondansetron 4 mg tablet,disintegrating 4 mg PO Q8H PRN PRN (Reason: Nausea) Qty: 10 0RF gabapentin 400 mg capsule 400 mg PO BID norethindrone ac-eth estradiol [Microgestin 1.5/30 (21)] 1.5-30 mg-mcg tablet 1 tab PO DAILY clotrimazole 1 % cream 1 applic topical BID buspirone 15 mg tablet 15 mg PO BID (DME) FreeStyle Guerrero 3 Sensor Device MISCELLANEOUS QWEEK (DME) pen needle, diabetic [BD Evy 2nd Gen Pen Needle] 32 gauge x needle MISCELLANEOUS DAILY Rexulti 3 mg tablet 3 mg PO DAILY insulin glargine [Lantus Solostar U-100 Insulin] 100 unit/mL (3 mL) insulin pen 82 unit subcut DAILY codeine-guaifenesin [Guaifenesin AC] 10-100 mg/5 mL liquid 10 ml PO 4X/DAY PRN (Reason: cough) 7 Days Qty: 280 0RF prazosin 2 mg capsule 2 mg PO QHS guanfacine [Intuniv ER] 3 mg tablet extended release 24 hr 3 mg PO DAILY trazodone 100 mg tablet 100 mg PO QHS Rx Instructions: One tablet in AM and 2 tabs at HS metoprolol succinate 50 mg tablet extended release 24 hr 75 mg PO DAILY metformin 500 mg tablet extended release 24 hr 2,000 mg PO QHS lamotrigine 100 mg tablet 100 mg PO QHS fenofibrate nanocrystallized 48 mg tablet 48 mg PO DAILY Slow Release Iron 140 mg (45 mg iron) tablet extended release 140 mg PO BID Rexuti oxycodone 5 mg tablet 10 mg PO Q6H PRN (Reason: pain) 3 Days Qty: 20 0RF nystatin 100,000 unit/gram cream 1 applic topical BID Qty: 30 0RF hydrocortisone acetate [Anusol-HC] 25 mg suppository 25 mg DE BID 6 Days Qty: 12 0RF Creon 36,000-114,000- 180,000 unit capsule,delayed release(DR/EC) 2 cap PO TID Qty: 300 11RF Rx Instructions: administer 3 capsules with meals and 1 capsule with snacks. Primary Care Provider: Miguelito Unger Referrals: Miguelito Unger MD [Primary Care Provider] - 1 Week Print Language: Luxembourgish Disposition Disposition: Home, Self Care
[2025-01-16 12:07] VITALS: BP 118/77; PULSE 85; RESP 14; TEMP 36.4; O2SAT 97
== END 2025-01-16 12:08 | disposition home or self-care (01) ==
PROVIDERS: Emergency Provider Emergency Medicine; PCP Family Medicine; Visit Provider Emergency Medicine
DX: K21.9 Gastro-esophageal reflux disease without esophagitis (principal); F31.9 Bipolar disorder, unspecified; E11.9 Type 2 diabetes mellitus without complications; R07.9 Chest pain, unspecified; F41.9 Anxiety disorder, unspecified; R03.0 Elevated blood-pressure reading, without diagnosis of hypertension; G47.30 Sleep apnea, unspecified
CPT/HCPCS: 99283

== ENCOUNTER 2025-02-13 10:48 | Outpatient (RCR) | payer MEDICARE, MEDICAID, SELFPAY | END 2025-03-07 23:59 | LOC: NS 10:48 | PROVIDERS: PCP Family Medicine; Visit Provider Internal Medicine Gastroenterology | DX: Z71.3 Dietary counseling and surveillance (principal); E66.01 Morbid (severe) obesity due to excess calories; K21.9 Gastro-esophageal reflux disease without esophagitis; E11.65 Type 2 diabetes mellitus with hyperglycemia; Z68.44 Body mass index [BMI] 60.0-69.9, adult | CPT/HCPCS: 97802 ==

== ENCOUNTER 2025-03-19 06:44 | Emergency (ER) | payer MEDICARE, MEDICAID, SELFPAY ==
[2025-03-19 06:45] VITALS: BP 145/96; PULSE 88; RESP 22; TEMP 36.6; O2SAT 97; BMI 69.7
[2025-03-19 07:36] LABS: Hematocrit 39.4 % (37-47); Hemoglobin 12.4 g/dL (12.0-15.0); Immature Granulocytes Count 0.070 X10^3/uL (0.0-0.0); Mean Corp Hgb Conc 31.5 g/dL (32-36); Mean Corpuscular Volume 82.3 fL (81-99); Mean Platelet Vol. 10.5 fl (6.2-12.0); NRBC Flagged by Analyzer 0 % (0-5); Platelet Count 324 K/mm3 (150-450); RBC Distribution Width CV 14.7 % (11.6-14.6); RBC Distribution Width SD 44.2 fl (35.1-43.9); Red Blood Count 4.79 M/mm3 (4.2-5.4); White Blood Count 12.6 K/mm3 (4.4-11.0)
--- NOTE | 2025-03-19 07:38 | EX.ED.DYSGE1 ---
HPI History of Present Illness Chief Complaint: Flank Pain Narrative Narrative: Patient is a 29-year-old female presenting to the emergency department for left sided flank pain for the past couple of days. Patient has a past medical history of kidney stone, renal colic, abner disease, obesity, chronic low back pain, ovarian cancer with L sided oopherectomy in 2019, cholecystectomy and diabetes. Patient states that the pain is intermittent. Reports that it feels like her past kidney stones. Reports that she is having some right flank pain intermittently as well but not as frequent. Endorses nausea with nonbloody nonbilious emesis that last occurred yesterday morning. She denies fever, chills, chest pain, shortness of breath, dysuria or hematuria. Denies any vaginal bleeding, abnormal vaginal discharge or concern for any STDs. Last menstrual period was 1-1/2 weeks ago. She has not taken anything for the pain. [facility] Medical History Panic attacks Palpitations Tachycardia Vitamin D deficiency Exocrine pancreatic insufficiency Renal colic Kidney stone on right side Facial paresthesia Chronic low back pain with sciatica RAD (reactive airway disease) Chest pain of uncertain etiology Lumbar degenerative disc disease Abner disease Paratubal cyst Morbid obesity with BMI of 60.0-69.9, adult Osteoporosis GERD (gastroesophageal reflux disease) CPAP (continuous positive airway pressure) dependence Sleep apnea Proteinuria due to type 2 diabetes mellitus Hypertriglyceridemia Diabetes Anxiety disorder, unspecified ADHD Bipolar 1 disorder Cancer Depression Arthritis Injury of back Injury of head and neck History of irregular heartbeat Ovarian cyst Asthma PCOS (polycystic ovarian syndrome) Home Medications ?Medication ?Instructions ?Recorded ?Last Taken ?Type cholecalciferol (vitamin D3) 125 125 mcg PO DAILY supplement 05/17/19 01/24/21 08:00 History mcg (5,000 unit) capsule epinephrine 0.3 mg/0.3 mL 0.3 mg (0.3 mL) IM X1 PRN 05/14/20 01/30/21 08:00 Rx injection, auto-injector Anaphylaxis #1 syringe albuterol sulfate 2.5 mg/3 mL 2.5 mg inhalation PRN PRN ASTHMA 01/25/21 01/30/21 08:00 History (0.083 %) solution for nebulization lisinopril 5 mg tablet 5 mg PO DAILY 01/25/21 01/30/21 08:00 History atorvastatin 10 mg tablet 10 mg PO QHS 08/07/22 Unknown History guanfacine 3 mg tablet,extended 3 mg PO DAILY 01/05/24 Unknown History release 24 hr (Intuniv ER) prazosin 2 mg capsule 2 mg PO QHS 01/05/24 Unknown History fenofibrate nanocrystallized 48 mg 48 mg PO DAILY 05/21/24 Unknown History tablet lamotrigine 100 mg tablet 100 mg PO QHS 05/21/24 Unknown History metformin 500 mg tablet,extended 2,000 mg PO QHS DM 05/21/24 09/14/24 History release 24 hr metoprolol succinate 50 mg 75 mg PO DAILY 05/21/24 Unknown History tablet,extended release 24 hr blood-glucose sensor (FreeStyle 09/10/24 Unknown History Guerrero 3 Sensor device) brexpiprazole 3 mg tablet (Rexulti) 3 mg PO DAILY 09/10/24 Unknown History buspirone 15 mg tablet 15 mg PO BID 09/10/24 Unknown History clotrimazole 1 % topical cream 1 applic topical BID 09/10/24 Unknown History gabapentin 400 mg capsule 400 mg PO BID 09/10/24 Unknown History norethindrone acetate 1.5 1 tab PO DAILY 09/10/24 Unknown History mg-ethinyl estradiol 30 mcg tablet (Microgestin) ondansetron 4 mg disintegrating 4 mg PO Q8H PRN PRN Nausea #10 tabs 09/10/24 Unknown Rx tablet pen needle, diabetic 32 gauge x 09/10/24 Unknown History (BD Evy 2nd Gen Pen Needle) codeine 10 mg-guaifenesin 100 mg/5 10 ml PO 4X/DAY PRN cough 7 days 11/01/24 Unknown Rx mL oral liquid (Guaifenesin AC) #280 mL hydrocortisone acetate 25 mg 25 mg NC BID 6 days #12 ea 11/02/24 Unknown Rx rectal suppository (Anusol-HC) nystatin 100,000 unit/gram topical 1 applic topical BID #30 grams 11/02/24 Unknown Rx cream pfbhyt-fqhpaqgz-xkzlais 2 cap PO TID EPI #300 caps 11/18/24 Unknown Rx 36,000-114,000-180,000 unit capsule,delay rel (Creon) ascorbic acid (vitamin C) 500 mg 500 mg PO BID 12/16/24 Unknown History tablet famotidine 20 mg tablet 20 mg PO DAILY 12/16/24 Unknown History ferrous sulfate 140 mg (45 mg 140 mg PO BID 12/16/24 Unknown History iron) tablet,extended release (Slow Release Iron) insulin aspart U-100 100 unit/mL subcut 12/16/24 Unknown History (3 mL) subcutaneous pen (Novolog FlexPen U-100 Insulin aspart) insulin glargine 100 unit/mL (3 82 unit subcut DAILY 12/16/24 Unknown History mL) subcutaneous pen (Lantus Solostar U-100 Insulin) magnesium oxide 400 mg (241.3 mg 400 mg PO QDAY 12/16/24 Unknown History magnesium) tablet naproxen 500 mg tablet 500 mg PO BID PRN 12/16/24 Unknown History pantoprazole 40 mg tablet,delayed 40 mg PO BID 12/16/24 Unknown History release trazodone 100 mg tablet 100 mg PO QHS 12/16/24 Unknown History aluminum-mag hydroxide-simethicone 5 ml PO Q3H PRN heartburn #480 mL 01/16/25 Unknown Rx 200 mg-200 mg-20 mg/5 mL oral susp (Advanced Antacid-Antigas) cephalexin 500 mg capsule 500 mg PO Q6 #40 CAPSULES 03/19/25 Unknown Rx Allergy/AdvReac Type Severity Reaction Status Date / Time celery Allergy Severe Anaphylaxis Verified 01/18/25 09:32 empagliflozin (From Allergy Intermediate yeast Verified 01/18/25 09:32 Jardiance) infection nitrofurantoin (From Allergy Intermediate rash Verified 01/18/25 09:32 Macrobid) sulfamethoxazole (From Allergy Intermediate intolerance Verified 01/18/25 09:32 Bactrim) trimethoprim (From Bactrim) Allergy Intermediate intolerance Verified 01/18/25 09:32 penicillin V potassium (From Allergy Mild Rash Verified 01/18/25 09:32 Pen-Vee K) adhesive tape (plastic tape) Allergy Rash Verified 01/18/25 09:32 brompheniramine maleate Allergy Shortness Verified 01/18/25 09:32 (From Dimetapp of breath (brompheniramine-PPA)) phenylpropanolamine HCl Allergy Shortness Verified 01/18/25 09:32 (From Dimetapp of breath (brompheniramine-PPA)) amoxicillin trihydrate (From AdvReac Intermediate Diarrhea Verified 01/18/25 09:32 Augmentin) potassium clavulanate (From AdvReac Intermediate Diarrhea Verified 01/18/25 09:32 Augmentin) dicyclomine HCl (From Bentyl) AdvReac Nausea/Vom/ Verified 01/18/25 09:32 Diarrhea fructose AdvReac Nausea/Vom/ Verified 01/18/25 09:32 Diarrhea sertraline (From Zoloft) AdvReac Other Verified 01/18/25 09:32 Family History Father Diabetes Hypertension Mother Hypertension Asthma Grandmother Breast cancer Hypertension Heart disease Grandfather Hypertension Diabetes 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 H/O partial adrenalectomy History of back surgery History of adrenal surgery H/O oophorectomy History of tonsillectomy and adenoidectomy H/O wisdom tooth extraction H/O ovarian cystectomy Hx of cholecystectomy Social History household members: family Smoking Status: Never smoker alcohol intake: current alcohol intake frequency: a few times a month substance use type: marijuana seatbelt use: always do you feel safe at home: Yes ROS ROS ED ROS Narrative see HPI EXAM Physical Exam Narrative Exam Narrative: Vital signs: Reviewed General: Alert and oriented x 3. No acute distress. BMI of 69.7 HEENT: Head is normocephalic and atraumatic, sinuses nontender, pupils equal round and reactive. Nares are patent. Oropharynx and throat exams normal. Neck: Supple without lymphadenopathy nontender Cardiovascular: Regular rate and rhythm, no murmurs. No rubs or gallops. Normal S1 and S2 Respiratory: Clear to auscultation bilaterally. No wheezes, rales, rhonchi Abdominal: Soft and mildly tender to palpation in the left lower quadrant. No CVA tenderness to palpation. Normal bowel sounds. No guarding or rebound. Nonsurgical abdomen. Extremities: There is no midline cervical, thoracic or lumbar spinal tenderness to palpation. No step-offs or deformities. There is paraspinal upper lumbar lower thoracic tenderness to palpation. There is no erythema or rash to the back or flank. No tenderness. No bruising. Normal range of motion. Normal sensation. Skin: No rash or redness. The rest of the physical exam is unremarkable Const Vital Signs: 03/19/25 06:45 03/19/25 08:44 03/19/25 09:38 Temperature 97.9 F 98.1 F Temperature Source Oral Pulse Rate 88 79 80 Respiratory Rate 22 H 15 20 H Blood Pressure 145/96 H 149/76 H 120/58 L Blood Pressure Mean 112 100 78 Pulse Ox 97 98 96 Oxygen Delivery Method Room Air Room Air MDM MDM MDM Narrative Medical decision making narrative: Patient is a 29-year-old female presenting to the emergency department for flank pain for the last couple of days. Patient was seen and examined. Vitals are stable. Patient resting bed comfortably no acute distress. Differential includes but is not limited to: Nephrolithiasis, pyelonephritis, UTI, diverticulitis, musculoskeletal back pain. Patient has had a oophorectomy on the left side, no concern for ovarian pathology as the cause of her left sided pain. Patient started on fluids, given Toradol and Zofran for symptomatic control. CBC with mild leukocytosis of 12.6 and a normal hemoglobin. CMP with no significant abnormalities. Normal kidney function. Lipase within normal limits. Urinalysis with nitrites and 1+ bacteria with small amount of WBC. CT of the abdomen and pelvis with no acute intra-abdominal or pelvic pathology. No evidence of obstructing kidney stones. Patient was given first dose of antibiotics here. She has multiple antibiotic intolerances not allergies. Looks like she has tolerated Keflex before. I discussed trying this antibiotic here and patient is agreeable. She tolerated well, no evidence of an allergic reaction. Given the patient's UTI and complaints of flank pain however no true CVA tenderness on exam I will cover her with pyelonephritis dosing of Keflex 4 times a day. I think this is likely a urinary tract infection with musculoskeletal lower back pain however will treat for pyelonephritis. Patient discharged from the Emergency Department. I do not feel that the patient's evaluation reveals any acute reason for admission at this time. I instructed them to either follow-up with their primary care physician or promptly return to the Emergency Department for reevaluation should symptoms worsen or new symptoms develop. I explained what symptoms would indicate the need to return to the emergency department. Shared decision making was used. The patient voiced understanding of the treatment plan and is agreeable with it. Clinical impression: UTI Musculoskeletal back pain History & Record Review Discussion w/independent historian: Patient Lab Data Attestation: I reviewed the patient's lab results. Labs: Laboratory Results - last 24 hr 03/19/25 03/19/25 07:27 08:41 WBC 12.6 H RBC 4.79 Hgb 12.4 Hct 39.4 MCV 82.3 MCH 25.9 L MCHC 31.5 L RDW Std Deviation 44.2 H RDW Coeff of Silvia 14.7 H Plt Count 324 MPV 10.5 Immature Gran % (Auto) 0.600 Neut % (Auto) 68.2 Lymph % (Auto) 23.1 [place] % (Auto) 5.3 Eos % (Auto) 2.3 Baso % (Auto) 0.5 Absolute Neuts (auto) 8.6 H Absolute Lymphs (auto) 2.90 Nucleated RBC % 0 Sodium 135 Potassium 4.3 Chloride 99 Carbon Dioxide 22.8 Anion Gap 13 BUN 9 Creatinine 0.47 L Estim Creat Clear Calc 344.97 H Est GFR (MDRD) Non-Af 134 BUN/Creatinine Ratio 19.4 Glucose 299 H Calcium 9.1 Total Bilirubin 0.17 AST 29 ALT 28 Alkaline Phosphatase 54 Total Protein 6.7 Albumin 3.5 Globulin 3.1 Albumin/Globulin Ratio 1.1 Lipase 40 Urine Color Yellow Urine Clarity Clear Urine pH 6.5 Ur Specific [place] 1.015 Urine Protein 30 H Urine Glucose (UA) 1000 H Urine Ketones Negative Urine Occult Blood Negative Urine Nitrite Positive H Urine Bilirubin Negative Urine Urobilinogen Normal Ur Leukocyte Esterase Negative Urine RBC 0 SEEN Urine WBC 10-25 SEEN Ur Squamous Epith Cells 0-5 SEEN Urine Bacteria 1+ Urine Mucus 0 SEEN Urine Yeast 1+ Urine Test Negative Radiography Diagnostic Testing: Clinical Impression(s) from Imaging Studies Abdomen/Pelvis CT 03/19/25 08:05 IMPRESSION: Negative for acute intra-abdominal or pelvic pathology. No evidence of obstructing kidney stones Patient reports previous oophorectomy and ovarian cancer. Correlate with surgical history. Reading Location: [facility] Discharge Plan Triage Chief Complaint: Flank Pain ED Provider: Yuki Casanova Dx/Rx/DC Orders Clinical Impression: UTI (urinary tract infection) Instructions: UTIs, ED Flank Pain with Uncertain Cause Prescriptions: New cephalexin 500 mg capsule 500 mg PO Q6 Qty: 40 0RF No Action naproxen 500 mg tablet 500 mg PO BID PRN magnesium oxide 400 mg (241.3 mg magnesium) tablet 400 mg PO QDAY pantoprazole 40 mg tablet,delayed release (DR/EC) 40 mg PO BID famotidine 20 mg tablet 20 mg PO DAILY insulin aspart U-100 [Novolog FlexPen U-100 Insulin] 100 unit/mL (3 mL) insulin pen subcut Patient Comments: INJECT 20 UNITS SUBCUTANEOUSLY WITH MEALS AND INJECT PER SLIDING SCALE: 1 UNIT FOR EVERY 50 OVER 150 PRE MEAL BLOOD GLUCOSE. MAX 105 UNITS DAILY. ascorbic acid (vitamin C) 500 mg tablet 500 mg PO BID cholecalciferol (vitamin D3) 125 MCG capsule 125 mcg PO DAILY epinephrine 0.3 MG syringe 0.3 mg IM X1 PRN (Reason: Anaphylaxis) Qty: 1 0RF albuterol sulfate 2.5 mg /3 mL (0.083 %) solution for nebulization 2.5 mg inhalation PRN PRN (Reason: ASTHMA) Patient Comments: INHALE 1 VIAL VIA NEBULIZER EVERY 6 HOURS NEEDED FOR SHORTNESS OF BREATH AND WHEEZING lisinopril 5 mg tablet 5 mg PO DAILY Patient Comments: TAKE 1 TABLET BY MOUTH ONCE DAILY atorvastatin 10 mg tablet 10 mg PO QHS Patient Comments: TAKE 1 TABLET BY MOUTH ONCE DAILY AT BEDTIME FOR CHOLESTEROL ondansetron 4 mg tablet,disintegrating 4 mg PO Q8H PRN PRN (Reason: Nausea) Qty: 10 0RF gabapentin 400 mg capsule 400 mg PO BID norethindrone ac-eth estradiol [Microgestin 1.530 (21)] 1.5-30 mg-mcg tablet 1 tab PO DAILY clotrimazole 1 % cream 1 applic topical BID buspirone 15 mg tablet 15 mg PO BID (DME) FreeStyle Guerrero 3 Sensor Device MISCELLANEOUS QWEEK (DME) pen needle, diabetic [BD Evy 2nd Gen Pen Needle] 32 gauge x needle MISCELLANEOUS DAILY Rexulti 3 mg tablet 3 mg PO DAILY insulin glargine [Lantus Solostar U-100 Insulin] 100 unit/mL (3 mL) insulin pen 82 unit subcut DAILY codeine-guaifenesin [Guaifenesin AC] 10-100 mg/5 mL liquid 10 ml PO 4X/DAY PRN (Reason: cough) 7 Days Qty: 280 0RF alum-mag hydroxide-simeth [Advanced Antacid-Antigas] 200-200-20 mg/5 mL suspension 5 ml PO Q3H PRN (Reason: heartburn) Qty: 480 0RF prazosin 2 mg capsule 2 mg PO QHS guanfacine [Intuniv ER] 3 mg tablet extended release 24 hr 3 mg PO DAILY trazodone 100 mg tablet 100 mg PO QHS Rx Instructions: One tablet in AM and 2 tabs at HS metoprolol succinate 50 mg tablet extended release 24 hr 75 mg PO DAILY metformin 500 mg tablet extended release 24 hr 2,000 mg PO QHS lamotrigine 100 mg tablet 100 mg PO QHS fenofibrate nanocrystallized 48 mg tablet 48 mg PO DAILY Slow Release Iron 140 mg (45 mg iron) tablet extended release 140 mg PO BID nystatin 100,000 unit/gram cream 1 applic topical BID Qty: 30 0RF hydrocortisone acetate [Anusol-HC] 25 mg suppository 25 mg NC BID 6 Days Qty: 12 0RF Creon 36,000-114,000- 180,000 unit capsule,delayed release(DR/EC) 2 cap PO TID Qty: 300 11RF Rx Instructions: administer 3 capsules with meals and 1 capsule with snacks. Primary Care Provider: Miguelito Unger Referrals: Miguelito Unger MD [Primary Care Provider, Family Practice] - As soon as possible Activity Restrictions/Additional Instructions: Take the antibiotic 4 times a day for 10 days. I sent your urine for culture as well to make sure we are treating you with the correct antibiotic. Please follow-up with your primary care doctor to discuss the urine culture results and further care. Need to return to the emergency department if you develop fever, chills, feeling unwell. Your evaluation in the Emergency Department did not reveal any acute reason for admission. However, I want to emphasize that you may be early in the course of a disease process or illness even if it is not present. For this reason you should follow-up within 24 hours for reevaluation with either your primary care physician or if necessary back here in the Emergency Department. You should return to the Emergency Department immediately if your symptoms worsen or new symptoms develop. Print Language: Upper Sorbian Disposition Disposition: Home, Self Care Discharge Date/Time: 03/19/25 09:55
[2025-03-19] MEDS: 0.9% Normal Saline (1000mL) 1,000 ML 999 ML IV (07:43)
[2025-03-19 07:54] LABS: AST(SGOT) 29 U/L (<=31); Alanine Aminotransfer ALT/SGPT 28 U/L (<=34); Albumin, Serum 3.5 g/dL (3.5-5.0); Alkaline Phosphatase 54 U/L (35-104); Anion Gap 13 (5-15); BUN 9 mg/dL (4-19); BUN/Creat Ratio 19.4 RATIO (10-20); Calcium,Total 9.1 mg/dL (7.6-11.0); Carbon Dioxide 22.8 mmol/L (21.0-32.0); Chloride 99 mmol/L (98-108); Estimated Creatinine Clearance 344.97 ml/min (50-250); Globulin 3.1 g/dL (2.2-4.2); Glucose 299 mg/dL (70-99); Lipase 40 U/L (13-75); Potassium 4.3 mmol/L (3.3-5.1)
--- NOTE | 2025-03-19 08:05 | CT_ITS ---
PROCEDURE: ABDOMEN/PELVIS WITHOUT CONT 03/19/2025 REASON FOR EXAM: PAIN/KIDNEY STONE? Left-sided abdominal pain. TECHNIQUE: Procedure Code: CTABDPEL Modality: CT Procedure: ABDOMEN/PELVIS WITHOUT CONT Noncontrast technique limits evaluation of the abdominal and pelvic viscera. Coronal and Sagittal reconstruction series were provided. One or more dose reduction techniques were used (e.g., Automated exposure control, adjustment of the mA and/or kV according to patient size, use of iterative reconstruction technique). RADIATION DOSE SUMMARY: CTDlvol: 25 mGy DLP: 1432 mGycm COMPARISON: September 2024. FINDINGS: Lung bases: Negative. ABDOMEN Liver: Mild fatty infiltration of the liver. Otherwise negative. Biliary system: Negative. Negative for intrahepatic or extrahepatic ductal dilatation. Gallbladder: Removed. Spleen: Negative. Pancreas: Negative. Adrenals: Negative. Kidneys: Negative. Negative for kidney stones, cysts or masses. Bowel: Mild diverticulosis. Negative for small or large-bowel obstruction. Appendix: The appendix is not identified. There is no inflammatory process identified in the right lower quadrant to suggest appendicitis. Vasculature: Negative for atherosclerotic vascular calcifications of the abdominal aorta and its branches. Peritoneum / Retroperitoneum: Small periumbilical hernia. PELVIS Lymph nodes: Negative for inguinal or iliac adenopathy. Bladder: Negative. Reproductive Organs: Lobulated appearance to the uterus. Right sided cystic mass likely adnexa measures 3.5 by 4.0 cm. No definitive left adnexa. Bones and Soft Tissues: Mild degenerative changes of the mid to lower lumbar spine. Age appropriate appearance off the lumbar spine hips and pelvis. CT/Abdomen/Pelvis without Cont IMPRESSION: Negative for acute intra-abdominal or pelvic pathology. No evidence of obstructing kidney stones Patient reports previous oophorectomy and ovarian cancer. Correlate with surgical history. Reading Location: [id number]
[2025-03-19 08:44] VITALS: BP 149/76; PULSE 79; RESP 15; O2SAT 98
[2025-03-19 08:47] LABS: Mucous, Urine 0 SEEN /hpf (<or=2+); Red Blood Cells-Urine 0 SEEN /hpf (0-5)
[2025-03-19 08:53] LABS: Glucose, Dipstick 1000 mg/dl (Normal); Ketone-Dipstick Negative (Negative); Leukocyte Esterase-Dipstick Negative /ul (Negative); Nitrite-Dipstick Positive (Negative); Occult Blood-Urine Negative /ul (Negative); Protein-Dipstick 30 mg/dl (Negative); Specific Gravity, Urine 1.015 (1.002-1.030); Urine Bilirubin Dipstick Negative (Negative)
[2025-03-19 08:58] LABS: Color, Urine Yellow (Yellow)
[2025-03-19 09:02] LABS: Internal QC Validated? YES +Cl - CLEAR BKGD; Pregnancy, Urine Negative Negative; Record Kit Lot#,Urine Preg 980607; Squamous Epithelial Cells - UA 0-5 SEEN /hpf (5-10); Yeast-Urine 1+ /hpf (None Seen)
[2025-03-19 09:38] VITALS: BP 120/58; PULSE 80; RESP 20; TEMP 36.7; O2SAT 96
== END 2025-03-19 09:55 | disposition home or self-care (01) ==
PROVIDERS: Emergency Provider Student in an Organized Health Care Education/Training Program; PCP Family Medicine; Visit Provider Student in an Organized Health Care Education/Training Program
DX: N39.0 Urinary tract infection, site not specified (principal); F31.9 Bipolar disorder, unspecified; E66.01 Morbid (severe) obesity due to excess calories; Z68.44 Body mass index [BMI] 60.0-69.9, adult; E11.9 Type 2 diabetes mellitus without complications; Z79.4 Long term (current) use of insulin; F90.9 Attention-deficit hyperactivity disorder, unspecified type; F41.9 Anxiety disorder, unspecified; K21.9 Gastro-esophageal reflux disease without esophagitis; E28.2 Polycystic ovarian syndrome; E24.9 Cushing's syndrome, unspecified; E55.9 Vitamin D deficiency, unspecified; M81.0 Age-related osteoporosis without current pathological fracture; M54.50 Low back pain, unspecified; G89.29 Other chronic pain; G47.30 Sleep apnea, unspecified; J45.909 Unspecified asthma, uncomplicated; Z90.49 Acquired absence of other specified parts of digestive tract; Z85.43 Personal history of malignant neoplasm of ovary; Z87.442 Personal history of urinary calculi; Z90.721 Acquired absence of ovaries, unilateral; Z79.84 Long term (current) use of oral hypoglycemic drugs; Z79.899 Other long term (current) drug therapy
CPT/HCPCS: 74176; 80053; 81001; 81025; 83690; 85025; 87077; 87086; 87088; 87186; 96361; 96374; 96375; 99283; A4216; J2405

== ENCOUNTER 2025-04-11 06:14 | Emergency (ER) | payer MEDICARE, MEDICAID, SELFPAY ==
[2025-04-11 06:15] VITALS: BP 160/74; PULSE 83; RESP 20; TEMP 36.6; O2SAT 100; BMI 66.3
[2025-04-11] MEDS: Albuterol 2.5 MG/3 ML VIAL.NEB. INHALATION (06:40)
[2025-04-11 06:41] VITALS: PULSE 84; RESP 19
[2025-04-11 07:19] VITALS: BP 134/72; PULSE 101; RESP 18; O2SAT 95
--- NOTE | 2025-04-11 07:51 | EDS_ITS ---
HPI History of Present Illness Chief Complaint: Asthma Informant: patient Narrative Narrative: Patient is a 29-year-old female with past medical history of PCOS bipolar disorder asthma and insulin-dependent diabetes. She states she has had 2 to 3 days of increased nasal congestion sore throat and cough. She reports that secondary to this she has had increased shortness of breath sensation. She denies any recent vaccinations or known sick contact. However as her symptoms are not improving she feels she could benefit from breathing treatments and with this presents for evaluation. [facility] Medical History Panic attacks Palpitations Tachycardia Vitamin D deficiency Exocrine pancreatic insufficiency Renal colic Kidney stone on right side Facial paresthesia Chronic low back pain with sciatica RAD (reactive airway disease) Chest pain of uncertain etiology Lumbar degenerative disc disease [place] disease Paratubal cyst Morbid obesity with BMI of 60.0-69.9, adult Osteoporosis GERD (gastroesophageal reflux disease) CPAP (continuous positive airway pressure) dependence Sleep apnea Proteinuria due to type 2 diabetes mellitus Hypertriglyceridemia Diabetes Anxiety disorder, unspecified ADHD Bipolar 1 disorder Cancer Depression Arthritis Injury of back Injury of head and neck History of irregular heartbeat Ovarian cyst Asthma PCOS (polycystic ovarian syndrome) Home Medications ?Medication ?Instructions ?Recorded ?Last Taken ?Type cholecalciferol (vitamin D3) 125 125 mcg PO DAILY supp lement 05/17/19 01/24/21 08:00 History mcg (5,000 unit) capsule epinephrine 0.3 mg/0.3 mL 0.3 mg (0.3 mL) IM X1 PRN 01/30/21 08:00 Rx injection, auto-injector Anaphylaxis #1 syringe albuterol sulfate 2.5 mg/3 mL 2.5 mg inhalation PRN AR N ASTHMA 01/25/21 01/30/21 08:00 History (0.083 %) solution for nebulization lisinopril 5 mg tablet 5 mg PO DAILY 01/25/2101/30 08:00 History atorvastatin 10 mg tablet 10 mg PO QHS 08/07/22 Unknow n History guanfacine 3 mg tablet,extended 3 mg PO DAILY 01/05/24 Unknown History release 24 hr (Intuniv ER) prazosin 2 mg capsule 2 mg PO QHS 01/05/24 Unknown History fenofibrate nanocrystallized 48 mg 48 mg PO DAILY 05/08 09/29 Unknown History tablet lamotrigine 100 mg tablet 100 mg PO QHS 05/21/24 Unkno wn History metformin 500 mg tablet,extended 2,000 mg PO QHS DM 09/14/24 History release 24 hr metoprolol succinate 50 mg 75 mg PO DAILY 05/21/24 Unk nown History tablet,extended release 24 hr blood-glucose sensor (FreeStyle 09/10/24 Unknown Hist ory Guerrero 3 Sensor device) brexpiprazole 3 mg tablet (Rexulti) 3 mg PO DAILY 10/30 Unknown History buspirone 15 mg tablet 15 mg PO BID 09/10/24 Unknow n History clotrimazole 1 % topical cream 1 applic topical BID Unknown History gabapentin 400 mg capsule 400 mg PO BID 09/10/24 Unkno wn History norethindrone acetate 1.5 1 tab PO DAILY 09/10/24 Unkn own History mg-ethinyl estradiol 30 mcg tablet (Microgestin) ondansetron 4 mg disintegrating 4 mg PO Q8H PRN PRN Na usea #10 tabs 09/10/24 Unknown Rx tablet pen needle, diabetic 32 gauge x 09/10/24 Unknown Hist ory (BD Evy 2nd Gen Pen Needle) codeine 10 mg-guaifenesin 100 mg/5 10 ml PO 4X/DAY PRN cough 7 days 11/01/24 Unknown Rx mL oral liquid (Guaifenesin AC) #280 mL hydrocortisone acetate 25 mg 25 mg AR BID 6 days #12 e a 11/02/24 Unknown Rx rectal suppository (Anusol-HC) nystatin 100,000 unit/gram topical 1 applic topical BI D #30 grams 11/02/24 Unknown Rx cream kqocma-vqsvvlyj-tokhcrs 2 cap PO TID EPI #300 caps 0 11/18/24 Unknown Rx 36,000-114,000-180,000 unit capsule,delay rel (Creon) ascorbic acid (vitamin C) 500 mg 500 mg PO BID 5 Unknown History tablet famotidine 20 mg tablet 20 mg PO DAILY 12/16/24 Unkn own History ferrous sulfate 140 mg (45 mg 140 mg PO BID 12/16/24 U nknown History iron) tablet,extended release (Slow Release Iron) insulin aspart U-100 100 unit/mL subcut 12/16/24 Unkno wn History (3 mL) subcutaneous pen (Novolog FlexPen U-100 Insulin aspart) insulin glargine 100 unit/mL (3 82 unit subcut DAILY 0 12/16/24 Unknown History mL) subcutaneous pen (Lantus Solostar U-100 Insulin) magnesium oxide 400 mg (241.3 mg 400 mg PO QDAY Unknown History magnesium) tablet naproxen 500 mg tablet 500 mg PO BID PRN 12/16/24 U nknown History pantoprazole 40 mg tablet,delayed 40 mg PO BID 5 Unknown History release trazodone 100 mg tablet 100 mg PO QHS 12/16/24 Unkno wn History aluminum-mag hydroxide-simethicone 5 ml PO Q3H PRN hea rtburn #480 mL 01/16/25 Unknown Rx 200 mg-200 mg-20 mg/5 mL oral susp (Advanced Antacid-[place]) cephalexin 500 mg capsule 500 mg PO Q6 #40 CAPSULES Unknown Rx albuterol sulfate 2.5 mg/3 mL 2.5 mg (3 mL) inhalation Q4H PRN 04/11/25 Unknown Rx (0.083 %) solution for nebulization shortness of breat h or wheezing #180 mL azelastine 137 mcg (0.1 %) nasal 2 spray intranasal BI D #30 mL 04/11/25 Unknown Rx spray azithromycin 250 mg tablet See Rx Instructions PO .COM PLEX #6 04/11/25 Unknown Rx (Zithromax Z-Wolf) tabs ipratropium 0.5 mg-albuterol 3 mg 3 ml inhalation Q6H PRN Shortness 04/11/25 Unknown Rx (2.5 mg base)/3 mL nebulization of breath or wheeze #9 0 mL soln Allergy/AdvReac Type Severity Reaction Status Date / Time celery Allergy Severe Anaphylaxis Verified 04/11/25 06:19 empagliflozin (From Allergy Intermediate yeast Verified 04/11/25 06:19 Jardiance) infection nitrofurantoin (From Allergy Intermediate rash Verified 04/11/25 06:19 Macrobid) sulfamethoxazole (From Allergy Intermediate intolerance Verified 04/11/25 06:19 Bactrim) trimethoprim (From Bactrim) Allergy Intermediate intolerance Verified 04/11/25 06:19 penicillin V potassium (From Allergy Mild Rash Verified 04/11/25 06:19 Pen-Vee K) adhesive tape (plastic tape) Allergy Rash Verified 04/11/25 06:19 brompheniramine maleate Allergy Shortness Verified 04/11/25 06:19 (From Dimetapp of breath (brompheniramine-PPA)) phenylpropanolamine HCl Allergy Shortness Verified 04/11/25 06:19 (From Dimetapp of breath (brompheniramine-PPA)) amoxicillin trihydrate (From AdvReac Intermediate Diarrhea Verified 04/11/25 06:19 Augmentin) potassium clavulanate (From AdvReac Intermediate Diarrhea Verified 04/11/25 06:19 Augmentin) dicyclomine HCl (From Bentyl) AdvReac Nausea/Vom/ Verified 04/11/25 06:19 Diarrhea fructose AdvReac Nausea/Vom/ Verified 04/11/25 06:19 Diarrhea sertraline (From Zoloft) AdvReac Other Verified 04/11/25 06:19 Family History Father Diabetes Hypertension Mother Hypertension Asthma Grandmother Breast cancer Hypertension Heart disease Grandfather Hypertension Diabetes 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 H/O partial adrenalectomy History of back surgery History of adrenal surgery H/O oophorectomy History of tonsillectomy and adenoidectomy H/O wisdom tooth extraction H/O ovarian cystectomy Hx of cholecystectomy Social History household members: family Smoking Status: Never smoker alcohol intake: current alcohol intake frequency: a few times a month substance use type: marijuana seatbelt use: always do you feel safe at home: Yes ROS ROS ED Constitutional Constitutional ED: Denies chills or fever(s) Eyes Eyes: Denies blurry vision or change in vision ENT ENT ED: Reports rhinorrhea and sore throat Cardiovascular Cardiovascular: Denies chest pain Respiratory/Chest Respiratory/Chest: Reports cough and dyspnea Gastrointestinal Gastrointestinal: Denies abdominal pain, diarrhea, nausea or vomiting Genitourinary Genitourinary ED: Denies dysuria Musculoskeletal Musculoskeletal: Reports myalgias Integumentary Denies rash Neurologic Neurologic: Denies headache(s) Hematologic/Lymphatic Hematologic/Lymphatic: Denies easy bleeding or easy bruising Allergic/Immunologic Allergic/Immunologic ED: Denies mouth swelling or tongue swelling EXAM Physical Exam Const Vital Signs: 04/11/25 06:15 04/11/25 06:18 04/11/25 06:41 Temperature 97.9 F Temperature Source Oral Pulse Rate 83 84 Respiratory Rate 20 H 19 H Respiratory Effort Short of Breath Respiratory Pattern Normal Blood Pressure 160/74 H Blood Pressure Mean 102 Pulse Ox 100 Oxygen Delivery Method Room Air 04/11/25 07:19 04/11/25 08:05 Temperature 98 F Temperature Source Pulse Rate 101 H 95 Respiratory Rate 18 16 Respiratory Effort Respiratory Pattern Blood Pressure 134/72 H 138/77 H Blood Pressure Mean 92 97 Pulse Ox 95 95 Oxygen Delivery Method Room Air Positive well nourished, well developed and obese General Appearance ED: well developed; Negative for pallor Nutritional Appearance: obese HEENT HEENT Narrative: Normocephalic atraumatic Nasal mucosa is hyperemic and boggy with enlarged inferior nasal turbinate No tongue or lip swelling no oral lesions no airway edema or compromise Cobblestoning is noted in the posterior pharynx consistent with sinus drainage; no secondary findings to suggest infection Eyes PERRL and EOMs intact bilaterally General Eye ED: Negative for scleral icterus Neck supple and no JVD Chest Wall palpation of chest normal Resp Resp Narrative: Breath sounds are diminished throughout with faint expiratory wheeze in the bilateral lower lobes Patient has mild tachypnea but no nasal flaring retractions accessory muscle use or stridor Cardio regular rate and regular rhythm Extremity normal to inspection Neuro oriented x3, CN's II-XII intact bilaterally and no sensory deficits noted Sensorium / Orientation: alert Motor Exam: strength 5/5 throughout Psych mental status grossly normal Skin no rashes or lesions noted General Skin Exam: Negative for jaundice or pallor MDM MDM MDM Narrative Medical decision making narrative: Patient arrived to ER hypertensive but otherwise in no acute distress satting 98 to 100% on room air. She reported congestion drainage and cough which is most consistent with viral upper respiratory tract infection. In order to assess for potential COVID influenza or RSV as a cause of this a viral swab was obtained. We discussed obtaining a chest x-ray to look for potential pneumonia but she is afebrile and she is not in respiratory distress and her physical exam does not show unilateral lung changes going against this and therefore we elected not to perform any chest x-ray. With history and exam indicating viral URI causing asthmatic bronchitis she was given DuoNeb breathing treatments in the ER. Following treatment she had improvement of her breath sounds as well as the mild
--- NOTE | 2025-04-11 07:51 | EX.ED.DYSGE1 ---
HPI History of Present Illness Chief Complaint: Asthma Informant: patient Narrative Narrative: Patient is a 29-year-old female with past medical history of PCOS bipolar disorder asthma and insulin-dependent diabetes. She states she has had 2 to 3 days of increased nasal congestion sore throat and cough. She reports that secondary to this she has had increased shortness of breath sensation. She denies any recent vaccinations or known sick contact. However as her symptoms are not improving she feels she could benefit from breathing treatments and with this presents for evaluation. [facility] Medical History Panic attacks Palpitations Tachycardia Vitamin D deficiency Exocrine pancreatic insufficiency Renal colic Kidney stone on right side Facial paresthesia Chronic low back pain with sciatica RAD (reactive airway disease) Chest pain of uncertain etiology Lumbar degenerative disc disease [place] disease Paratubal cyst Morbid obesity with BMI of 60.0-69.9, adult Osteoporosis GERD (gastroesophageal reflux disease) CPAP (continuous positive airway pressure) dependence Sleep apnea Proteinuria due to type 2 diabetes mellitus Hypertriglyceridemia Diabetes Anxiety disorder, unspecified ADHD Bipolar 1 disorder Cancer Depression Arthritis Injury of back Injury of head and neck History of irregular heartbeat Ovarian cyst Asthma PCOS (polycystic ovarian syndrome) Home Medications ?Medication ?Instructions ?Recorded ?Last Taken ?Type cholecalciferol (vitamin D3) 125 125 mcg PO DAILY supplement 05/17/19 01/24/21 08:00 History mcg (5,000 unit) capsule epinephrine 0.3 mg/0.3 mL 0.3 mg (0.3 mL) IM X1 PRN 05/14/20 01/30/21 08:00 Rx injection, auto-injector Anaphylaxis #1 syringe albuterol sulfate 2.5 mg/3 mL 2.5 mg inhalation PRN PRN ASTHMA 01/25/21 01/30/21 08:00 History (0.083 %) solution for nebulization lisinopril 5 mg tablet 5 mg PO DAILY 01/25/21 01/30/21 08:00 History atorvastatin 10 mg tablet 10 mg PO QHS 08/07/22 Unknown History guanfacine 3 mg tablet,extended 3 mg PO DAILY 01/05/24 Unknown History release 24 hr (Intuniv ER) prazosin 2 mg capsule 2 mg PO QHS 01/05/24 Unknown History fenofibrate nanocrystallized 48 mg 48 mg PO DAILY 05/21/24 Unknown History tablet lamotrigine 100 mg tablet 100 mg PO QHS 05/21/24 Unknown History metformin 500 mg tablet,extended 2,000 mg PO QHS DM 05/21/24 09/14/24 History release 24 hr metoprolol succinate 50 mg 75 mg PO DAILY 05/21/24 Unknown History tablet,extended release 24 hr blood-glucose sensor (FreeStyle 09/10/24 Unknown History Guerrero 3 Sensor device) brexpiprazole 3 mg tablet (Rexulti) 3 mg PO DAILY 09/10/24 Unknown History buspirone 15 mg tablet 15 mg PO BID 09/10/24 Unknown History clotrimazole 1 % topical cream 1 applic topical BID 09/10/24 Unknown History gabapentin 400 mg capsule 400 mg PO BID 09/10/24 Unknown History norethindrone acetate 1.5 1 tab PO DAILY 09/10/24 Unknown History mg-ethinyl estradiol 30 mcg tablet (Microgestin) ondansetron 4 mg disintegrating 4 mg PO Q8H PRN PRN Nausea #10 tabs 09/10/24 Unknown Rx tablet pen needle, diabetic 32 gauge x 09/10/24 Unknown History (BD Evy 2nd Gen Pen Needle) codeine 10 mg-guaifenesin 100 mg/5 10 ml PO 4X/DAY PRN cough 7 days 11/01/24 Unknown Rx mL oral liquid (Guaifenesin AC) #280 mL hydrocortisone acetate 25 mg 25 mg NE BID 6 days #12 ea 11/02/24 Unknown Rx rectal suppository (Anusol-HC) nystatin 100,000 unit/gram topical 1 applic topical BID #30 grams 11/02/24 Unknown Rx cream xqtrxo-vgponmxn-ukrrmht 2 cap PO TID EPI #300 caps 11/18/24 Unknown Rx 36,000-114,000-180,000 unit capsule,delay rel (Creon) ascorbic acid (vitamin C) 500 mg 500 mg PO BID 12/16/24 Unknown History tablet famotidine 20 mg tablet 20 mg PO DAILY 12/16/24 Unknown History ferrous sulfate 140 mg (45 mg 140 mg PO BID 12/16/24 Unknown History iron) tablet,extended release (Slow Release Iron) insulin aspart U-100 100 unit/mL subcut 12/16/24 Unknown History (3 mL) subcutaneous pen (Novolog FlexPen U-100 Insulin aspart) insulin glargine 100 unit/mL (3 82 unit subcut DAILY 12/16/24 Unknown History mL) subcutaneous pen (Lantus Solostar U-100 Insulin) magnesium oxide 400 mg (241.3 mg 400 mg PO QDAY 12/16/24 Unknown History magnesium) tablet naproxen 500 mg tablet 500 mg PO BID PRN 12/16/24 Unknown History pantoprazole 40 mg tablet,delayed 40 mg PO BID 12/16/24 Unknown History release trazodone 100 mg tablet 100 mg PO QHS 12/16/24 Unknown History aluminum-mag hydroxide-simethicone 5 ml PO Q3H PRN heartburn #480 mL 01/16/25 Unknown Rx 200 mg-200 mg-20 mg/5 mL oral susp (Advanced Antacid-Antigas) cephalexin 500 mg capsule 500 mg PO Q6 #40 CAPSULES 03/19/25 Unknown Rx albuterol sulfate 2.5 mg/3 mL 2.5 mg (3 mL) inhalation Q4H PRN 04/11/25 Unknown Rx (0.083 %) solution for nebulization shortness of breath or wheezing #180 mL azelastine 137 mcg (0.1 %) nasal 2 spray intranasal BID #30 mL 04/11/25 Unknown Rx spray azithromycin 250 mg tablet See Rx Instructions PO .COMPLEX #6 04/11/25 Unknown Rx (Zithromax Z-Wolf) tabs ipratropium 0.5 mg-albuterol 3 mg 3 ml inhalation Q6H PRN Shortness 04/11/25 Unknown Rx (2.5 mg base)/3 mL nebulization of breath or wheeze #90 mL soln Allergy/AdvReac Type Severity Reaction Status Date / Time celery Allergy Severe Anaphylaxis Verified 04/11/25 06:19 empagliflozin (From Allergy Intermediate yeast Verified 04/11/25 06:19 Jardiance) infection nitrofurantoin (From Allergy Intermediate rash Verified 04/11/25 06:19 Macrobid) sulfamethoxazole (From Allergy Intermediate intolerance Verified 04/11/25 06:19 Bactrim) trimethoprim (From Bactrim) Allergy Intermediate intolerance Verified 04/11/25 06:19 penicillin V potassium (From Allergy Mild Rash Verified 04/11/25 06:19 Pen-Vee K) adhesive tape (plastic tape) Allergy Rash Verified 04/11/25 06:19 brompheniramine maleate Allergy Shortness Verified 04/11/25 06:19 (From Dimetapp of breath (brompheniramine-PPA)) phenylpropanolamine HCl Allergy Shortness Verified 04/11/25 06:19 (From Dimetapp of breath (brompheniramine-PPA)) amoxicillin trihydrate (From AdvReac Intermediate Diarrhea Verified 04/11/25 06:19 Augmentin) potassium clavulanate (From AdvReac Intermediate Diarrhea Verified 04/11/25 06:19 Augmentin) dicyclomine HCl (From Bentyl) AdvReac Nausea/Vom/ Verified 04/11/25 06:19 Diarrhea fructose AdvReac Nausea/Vom/ Verified 04/11/25 06:19 Diarrhea sertraline (From Zoloft) AdvReac Other Verified 04/11/25 06:19 Family History Father Diabetes Hypertension Mother Hypertension Asthma Grandmother Breast cancer Hypertension Heart disease Grandfather Hypertension Diabetes 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 H/O partial adrenalectomy History of back surgery History of adrenal surgery H/O oophorectomy History of tonsillectomy and adenoidectomy H/O wisdom tooth extraction H/O ovarian cystectomy Hx of cholecystectomy Social History household members: family Smoking Status: Never smoker alcohol intake: current alcohol intake frequency: a few times a month substance use type: marijuana seatbelt use: always do you feel safe at home: Yes ROS ROS ED Constitutional Constitutional ED: Denies chills or fever(s) Eyes Eyes: Denies blurry vision or change in vision ENT ENT ED: Reports rhinorrhea and sore throat Cardiovascular Cardiovascular: Denies chest pain Respiratory/Chest Respiratory/Chest: Reports cough and dyspnea Gastrointestinal Gastrointestinal: Denies abdominal pain, diarrhea, nausea or vomiting Genitourinary Genitourinary ED: Denies dysuria Musculoskeletal Musculoskeletal: Reports myalgias Integumentary Denies rash Neurologic Neurologic: Denies headache(s) Hematologic/Lymphatic Hematologic/Lymphatic: Denies easy bleeding or easy bruising Allergic/Immunologic Allergic/Immunologic ED: Denies mouth swelling or tongue swelling EXAM Physical Exam Const Vital Signs: 04/11/25 06:15 04/11/25 06:18 04/11/25 06:41 Temperature 97.9 F Temperature Source Oral Pulse Rate 83 84 Respiratory Rate 20 H 19 H Respiratory Effort Short of Breath Respiratory Pattern Normal Blood Pressure 160/74 H Blood Pressure Mean 102 Pulse Ox 100 Oxygen Delivery Method Room Air 04/11/25 07:19 04/11/25 08:05 Temperature 98 F Temperature Source Pulse Rate 101 H 95 Respiratory Rate 18 16 Respiratory Effort Respiratory Pattern Blood Pressure 134/72 H 138/77 H Blood Pressure Mean 92 97 Pulse Ox 95 95 Oxygen Delivery Method Room Air Positive well nourished, well developed and obese General Appearance ED: well developed; Negative for pallor Nutritional Appearance: obese HEENT HEENT Narrative: Normocephalic atraumatic Nasal mucosa is hyperemic and boggy with enlarged inferior nasal turbinate No tongue or lip swelling no oral lesions no airway edema or compromise Cobblestoning is noted in the posterior pharynx consistent with sinus drainage; no secondary findings to suggest infection Eyes PERRL and EOMs intact bilaterally General Eye ED: Negative for scleral icterus Neck supple and no JVD Chest Wall palpation of chest normal Resp Resp Narrative: Breath sounds are diminished throughout with faint expiratory wheeze in the bilateral lower lobes Patient has mild tachypnea but no nasal flaring retractions accessory muscle use or stridor Cardio regular rate and regular rhythm Extremity normal to inspection Neuro oriented x3, CN's II-XII intact bilaterally and no sensory deficits noted Sensorium / Orientation: alert Motor Exam: strength 5/5 throughout Psych mental status grossly normal Skin no rashes or lesions noted General Skin Exam: Negative for jaundice or pallor MDM MDM MDM Narrative Medical decision making narrative: Patient arrived to ER hypertensive but otherwise in no acute distress satting 98 to 100% on room air. She reported congestion drainage and cough which is most consistent with viral upper respiratory tract infection. In order to assess for potential COVID influenza or RSV as a cause of this a viral swab was obtained. We discussed obtaining a chest x-ray to look for potential pneumonia but she is afebrile and she is not in respiratory distress and her physical exam does not show unilateral lung changes going against this and therefore we elected not to perform any chest x-ray. With history and exam indicating viral URI causing asthmatic bronchitis she was given DuoNeb breathing treatments in the ER. Following treatment she had improvement of her breath sounds as well as the mild tachypnea. Therefore this time with no signs of acute respiratory distress or hypoxia and improvement of symptoms I do not feel the need for further intervention. Patient will prescribe symptomatic medications and is otherwise safe for discharge History & Record Review Discussion w/independent historian: Patient Discharge Plan Triage Chief Complaint: Asthma ED Provider: Sudarshan Angelo Dx/Rx/DC Orders Clinical Impression: Asthmatic bronchitis, PCOS (polycystic ovarian syndrome), Bipolar 1 disorder, Insulin dependent diabetes mellitus, Morbid obesity with BMI of 60.0-69.9, adult Instructions: Acute Bronchitis, Asthma Action Plan Prescriptions: New albuterol sulfate 2.5 mg /3 mL (0.083 %) solution for nebulization 2.5 mg inhalation Q4H PRN (Reason: shortness of breath or wheezing) Qty: 180 0RF ipratropium-albuterol 0.5 mg-3 mg(2.5 mg base)/3 mL solution for nebulization 3 ml inhalation Q6H PRN (Reason: Shortness of breath or wheeze) Qty: 90 0RF azelastine 137 mcg (0.1 %) spray,non-aerosol 2 spray intranasal BID Qty: 30 0RF Rx Instructions: administer into each nostril azithromycin [Zithromax Z-Wolf] 250 mg tablet See Rx Instructions .ROUTE .COMPLEX Qty: 6 0RF Rx Instructions: For 250 mg dose pack: take 500 mg today (day 1), then 250 mg for 4 days (days 2-5) No Action naproxen 500 mg tablet 500 mg PO BID PRN magnesium oxide 400 mg (241.3 mg magnesium) tablet 400 mg PO QDAY pantoprazole 40 mg tablet,delayed release (DR/EC) 40 mg PO BID famotidine 20 mg tablet 20 mg PO DAILY insulin aspart U-100 [Novolog FlexPen U-100 Insulin] 100 unit/mL (3 mL) insulin pen subcut Patient Comments: INJECT 20 UNITS SUBCUTANEOUSLY WITH MEALS AND INJECT PER SLIDING SCALE: 1 UNIT FOR EVERY 50 OVER 150 PRE MEAL BLOOD GLUCOSE. MAX 105 UNITS DAILY. ascorbic acid (vitamin C) 500 mg tablet 500 mg PO BID cholecalciferol (vitamin D3) 125 MCG capsule 125 mcg PO DAILY epinephrine 0.3 MG syringe 0.3 mg IM X1 PRN (Reason: Anaphylaxis) Qty: 1 0RF albuterol sulfate 2.5 mg /3 mL (0.083 %) solution for nebulization 2.5 mg inhalation PRN PRN (Reason: ASTHMA) Patient Comments: INHALE 1 VIAL VIA NEBULIZER EVERY 6 HOURS NEEDED FOR SHORTNESS OF BREATH AND WHEEZING lisinopril 5 mg tablet 5 mg PO DAILY Patient Comments: TAKE 1 TABLET BY MOUTH ONCE DAILY atorvastatin 10 mg tablet 10 mg PO QHS Patient Comments: TAKE 1 TABLET BY MOUTH ONCE DAILY AT BEDTIME FOR CHOLESTEROL ondansetron 4 mg tablet,disintegrating 4 mg PO Q8H PRN PRN (Reason: Nausea) Qty: 10 0RF gabapentin 400 mg capsule 400 mg PO BID norethindrone ac-eth estradiol [Microgestin 1.5/30 (21)] 1.5-30 mg-mcg tablet 1 tab PO DAILY clotrimazole 1 % cream 1 applic topical BID buspirone 15 mg tablet 15 mg PO BID (DME) FreeStyle Guerrero 3 Sensor Device MISCELLANEOUS QWEEK (DME) pen needle, diabetic [BD Evy 2nd Gen Pen Needle] 32 gauge x 5/32 needle MISCELLANEOUS DAILY Rexulti 3 mg tablet 3 mg PO DAILY insulin glargine [Lantus Solostar U-100 Insulin] 100 unit/mL (3 mL) insulin pen 82 unit subcut DAILY codeine-guaifenesin [Guaifenesin AC] 10-100 mg/5 mL liquid 10 ml PO 4X/DAY PRN (Reason: cough) 7 Days Qty: 280 0RF alum-mag hydroxide-simeth [Advanced Antacid-Antigas] 200-200-20 mg/5 mL suspension 5 ml PO Q3H PRN (Reason: heartburn) Qty: 480 0RF prazosin 2 mg capsule 2 mg PO QHS guanfacine [Intuniv ER] 3 mg tablet extended release 24 hr 3 mg PO DAILY trazodone 100 mg tablet 100 mg PO QHS Rx Instructions: One tablet in AM and 2 tabs at HS metoprolol succinate 50 mg tablet extended release 24 hr 75 mg PO DAILY metformin 500 mg tablet extended release 24 hr 2,000 mg PO QHS lamotrigine 100 mg tablet 100 mg PO QHS fenofibrate nanocrystallized 48 mg tablet 48 mg PO DAILY Slow Release Iron 140 mg (45 mg iron) tablet extended release 140 mg PO BID nystatin 100,000 unit/gram cream 1 applic topical BID Qty: 30 0RF hydrocortisone acetate [Anusol-HC] 25 mg suppository 25 mg NE BID 6 Days Qty: 12 0RF cephalexin 500 mg capsule 500 mg PO Q6 Qty: 40 0RF Creon 36,000-114,000- 180,000 unit capsule,delayed release(DR/EC) 2 cap PO TID Qty: 300 11RF Rx Instructions: administer 3 capsules with meals and 1 capsule with snacks. Primary Care Provider: Miguelito Unger Referrals: Miguelito Unger MD [Primary Care Provider, [facility]] Activity Restrictions/Additional Instructions: Your COVID influenza and RSV test were negative. Your symptoms are consistent with a viral infection causing asthmatic bronchitis. This can last for 2 to 3 weeks. Continue to use your inhaler and nebulizer for shortness of breath sensation. You can take kajl-wco-ourqior medications for cough control. Use the prescribed nasal spray to reduce postnasal drip which would also help reduce cough. Return to the ER should you have any further concerns Print Language: Sinhala Disposition Disposition: Home, Self Care Discharge Date/Time: 04/11/25 08:10
[2025-04-11 08:05] VITALS: BP 138/77; PULSE 95; RESP 16; TEMP 36.6; O2SAT 95
== END 2025-04-11 08:10 | disposition home or self-care (01) ==
PROVIDERS: Emergency Provider Emergency Medicine; PCP Family Medicine; Visit Provider Emergency Medicine
DX: J45.909 Unspecified asthma, uncomplicated (principal); F31.9 Bipolar disorder, unspecified; E66.01 Morbid (severe) obesity due to excess calories; Z68.44 Body mass index [BMI] 60.0-69.9, adult; E11.9 Type 2 diabetes mellitus without complications; Z79.4 Long term (current) use of insulin; E28.2 Polycystic ovarian syndrome; E55.9 Vitamin D deficiency, unspecified; K21.9 Gastro-esophageal reflux disease without esophagitis; F41.9 Anxiety disorder, unspecified; F90.9 Attention-deficit hyperactivity disorder, unspecified type; E78.1 Pure hyperglyceridemia; M81.0 Age-related osteoporosis without current pathological fracture; G47.30 Sleep apnea, unspecified; G89.29 Other chronic pain; M51.369 Other intervertebral disc degeneration, lumbar region without mention of lumbar back pain or lower extremity pain; Z79.84 Long term (current) use of oral hypoglycemic drugs; Z79.899 Other long term (current) drug therapy
CPT/HCPCS: 87631; 94640; 99282

== ENCOUNTER 2025-04-12 15:25 | Emergency (ER) | payer MEDICARE, MEDICAID, SELFPAY ==
[2025-04-12 15:25] VITALS: BP 182/83; PULSE 108; RESP 26; TEMP 36.6; O2SAT 96
--- NOTE | 2025-04-12 15:37 | EDS_ITS ---
HPI History of Present Illness Chief Complaint: Shortness of Breath Detail of Chief Complaint: Increase shortness of breath, wheezing and productive cough Informant: patient Onset/Context/Timing Onset: Days (Onset beginning of the month) Context: sudden Timing: Continuous and Waxes and wanes Quality: Positive for Dyspnea on exertion and Wheezing; Negative for Orthopnea or PND Current Severity: Moderate Maximum Severity: Severe Worsened by: Exertion and Coughing Relieved by: Nothing Associated Symptoms cough, rhinorrhea, post nasal drip, fever and sore throat; Negative for ear pain, subjective, chills, sweats, clear sputum, white sputum, yellow sputum or green sputum Chest Pain: Positive for None and Burning (Left and right costal margin) Narrative Narrative: Patient is a 29-year-old female. She was seen on April 11 for wheezing with cough. She was diagnosed with asthmatic bronchitis. She is presently on cephalexin. She is on cephalexin due to a recent diagnosis of urinary tract infection. She has a remote history of ovarian cancer. She states she is in remission. This was diagnosed in 2019. She has no history of PE or DVT. She has leg pain, swelling discoloration. She has had no recent surgery, immobilization or on hormonal therapy. Patient does report fever. She states 1 hour after she took Tylenol she checked her temperature it was 99.9. She denies headache, visual, ocular or auditory symptoms. She does endorse rhinorrhea, congestion, postnasal drainage and sore throat. She does have a cough which is productive of colored sputum. The cough is not always productive. She denies any chest pressure, tightness or heaviness. She complains of a burning sensation under the right and left costal area anteriorly with breathing. She denies leg pain, swelling or discoloration. She denies orthopnea or PND. Patient's BMI is greater than 60. PE Risk Factors: Positive for Cancer (In remission); Negative for OCP + Smoking + > 35, Prior DVT or PE, Recent immobilization, Recent surgery or Recent travel Prior similar symptoms: Yes Recent Illness/Hospitalization: Yes [facility] Medical History (Updated 04/12/25 @ 18:[address] Ehsan Campbell MD) Panic attacks Palpitations Tachycardia Vitamin D deficiency Exocrine pancreatic insufficiency Renal colic Kidney stone on right side Morbid obesity with BMI of 60.0-69.9, adult Osteoporosis GERD (gastroesophageal reflux disease) CPAP (continuous positive airway pressure) dependence Sleep apnea Proteinuria due to type 2 diabetes mellitus Hypertriglyceridemia Diabetes Anxiety disorder, unspecified ADHD Bipolar 1 disorder Facial paresthesia Cancer Depression Arthritis Injury of back Injury of head and neck History of irregular heartbeat Chronic low back pain with sciatica RAD (reactive airway disease) Chest pain of uncertain etiology Lumbar degenerative disc disease [place] disease Ovarian cyst Asthma PCOS (polycystic ovarian syndrome) Paratubal cyst Home Medications ?Medication ?Instructions ?Recorded ?Last Taken ?Type cholecalciferol (vitamin D3) 125 125 mcg PO DAILY supp lement 05/17/19 01/24/21 08:00 History mcg (5,000 unit) capsule epinephrine 0.3 mg/0.3 mL 0.3 mg (0.3 mL) IM X1 PRN 01/30/21 08:00 Rx injection, auto-injector Anaphylaxis #1 syringe albuterol sulfate 2.5 mg/3 mL 2.5 mg inhalation PRN WI N ASTHMA 01/25/21 01/30/21 08:00 History (0.083 %) solution for nebulization lisinopril 5 mg tablet 5 mg PO DAILY 01/25/2101/30 08:00 History atorvastatin 10 mg tablet 10 mg PO QHS 08/07/22 Unknow n History guanfacine 3 mg tablet,extended 3 mg PO DAILY 01/05/24 Unknown History release 24 hr (Intuniv ER) prazosin 2 mg capsule 2 mg PO QHS 01/05/24 Unknown History fenofibrate nanocrystallized 48 mg 48 mg PO DAILY 05/08 09/29 Unknown History tablet lamotrigine 100 mg tablet 100 mg PO QHS 05/21/24 Unkno wn History metformin 500 mg tablet,extended 2,000 mg PO QHS DM 09/14/24 History release 24 hr metoprolol succinate 50 mg 75 mg PO DAILY 05/21/24 Unk nown History tablet,extended release 24 hr blood-glucose sensor (FreeStyle 09/10/24 Unknown Hist ory Guerrero 3 Sensor device) brexpiprazole 3 mg tablet (Rexulti) 3 mg PO DAILY 10/30 Unknown History buspirone 15 mg tablet 15 mg PO BID 09/10/24 Unknow n History clotrimazole 1 % topical cream 1 applic topical BID Unknown History gabapentin 400 mg capsule 400 mg PO BID 09/10/24 Unkno wn History norethindrone acetate 1.5 1 tab PO DAILY 09/10/24 Unkn own History mg-ethinyl estradiol 30 mcg tablet (Microgestin) ondansetron 4 mg disintegrating 4 mg PO Q8H PRN PRN Na usea #10 tabs 09/10/24 Unknown Rx tablet pen needle, diabetic 32 gauge x 09/10/24 Unknown Hist ory (BD Evy 2nd Gen Pen Needle) codeine 10 mg-guaifenesin 100 mg/5 10 ml PO 4X/DAY PRN cough 7 days 11/01/24 Unknown Rx mL oral liquid (Guaifenesin AC) #280 mL hydrocortisone acetate 25 mg 25 mg [place] BID 6 days #12 e a 11/02/24 Unknown Rx rectal suppository (Anusol-HC) nystatin 100,000 unit/gram topical 1 applic topical BI D #30 grams 11/02/24 Unknown Rx cream [id number]-nsmurkyt-jiprpju 2 cap PO TID EPI #300 caps 0 11/18/24 Unknown Rx 36,000-114,000-180,000 unit capsule,delay rel (Creon) ascorbic acid (vitamin C) 500 mg 500 mg PO BID 5 Unknown History tablet famotidine 20 mg tablet 20 mg PO DAILY 12/16/24 Unkn own History ferrous sulfate 140 mg (45 mg 140 mg PO BID 12/16/24 U nknown History iron) tablet,extended release (Slow Release Iron) insulin aspart U-100 100 unit/mL subcut 12/16/24 Unkno wn History (3 mL) subcutaneous pen (Novolog FlexPen U-100 Insulin aspart) insulin glargine 100 unit/mL (3 82 unit subcut DAILY 0 12/16/24 Unknown History mL) subcutaneous pen (Lantus Solostar U-100 Insulin) magnesium oxide 400 mg (241.3 mg 400 mg PO QDAY Unknown History magnesium) tablet naproxen 500 mg tablet 500 mg PO BID PRN pain 12/16 Unknown History pantoprazole 40 mg tablet,delayed 40 mg PO BID 5 Unknown History release trazodone 100 mg tablet 100 mg PO QHS 12/16/24 Unkno
--- NOTE | 2025-04-12 15:37 | ED.VIS.DYS ---
HPI History of Present Illness Chief Complaint: Shortness of Breath Detail of Chief Complaint: Increase shortness of breath, wheezing and productive cough Informant: patient Onset/Context/Timing Onset: Days (Onset beginning of the month) Context: sudden Timing: Continuous and Waxes and wanes Quality: Positive for Dyspnea on exertion and Wheezing; Negative for Orthopnea or PND Current Severity: Moderate Maximum Severity: Severe Worsened by: Exertion and Coughing Relieved by: Nothing Associated Symptoms cough, rhinorrhea, post nasal drip, fever and sore throat; Negative for ear pain, subjective, chills, sweats, clear sputum, white sputum, yellow sputum or green sputum Chest Pain: Positive for None and Burning (Left and right costal margin) Narrative Narrative: Patient is a 29-year-old female. She was seen on April 11 for wheezing with cough. She was diagnosed with asthmatic bronchitis. She is presently on cephalexin. She is on cephalexin due to a recent diagnosis of urinary tract infection. She has a remote history of ovarian cancer. She states she is in remission. This was diagnosed in 2019. She has no history of PE or DVT. She has leg pain, swelling discoloration. She has had no recent surgery, immobilization or on hormonal therapy. Patient does report fever. She states 1 hour after she took Tylenol she checked her temperature it was 99.9. She denies headache, visual, ocular or auditory symptoms. She does endorse rhinorrhea, congestion, postnasal drainage and sore throat. She does have a cough which is productive of colored sputum. The cough is not always productive. She denies any chest pressure, tightness or heaviness. She complains of a burning sensation under the right and left costal area anteriorly with breathing. She denies leg pain, swelling or discoloration. She denies orthopnea or PND. Patient's BMI is greater than 60. PE Risk Factors: Positive for Cancer (In remission); Negative for OCP + Smoking + > 35, Prior DVT or PE, Recent immobilization, Recent surgery or Recent travel Prior similar symptoms: Yes Recent Illness/Hospitalization: Yes [facility] Medical History (Updated 04/12/25 @ 18:[address] Ehsan Campbell MD) Panic attacks Palpitations Tachycardia Vitamin D deficiency Exocrine pancreatic insufficiency Renal colic Kidney stone on right side Morbid obesity with BMI of 60.0-69.9, adult Osteoporosis GERD (gastroesophageal reflux disease) CPAP (continuous positive airway pressure) dependence Sleep apnea Proteinuria due to type 2 diabetes mellitus Hypertriglyceridemia Diabetes Anxiety disorder, unspecified ADHD Bipolar 1 disorder Facial paresthesia Cancer Depression Arthritis Injury of back Injury of head and neck History of irregular heartbeat Chronic low back pain with sciatica RAD (reactive airway disease) Chest pain of uncertain etiology Lumbar degenerative disc disease Ellsworth disease Ovarian cyst Asthma PCOS (polycystic ovarian syndrome) Paratubal cyst Home Medications ?Medication ?Instructions ?Recorded ?Last Taken ?Type cholecalciferol (vitamin D3) 125 125 mcg PO DAILY supplement 05/17/19 01/24/21 08:00 History mcg (5,000 unit) capsule epinephrine 0.3 mg/0.3 mL 0.3 mg (0.3 mL) IM X1 PRN 05/14/20 01/30/21 08:00 Rx injection, auto-injector Anaphylaxis #1 syringe albuterol sulfate 2.5 mg/3 mL 2.5 mg inhalation PRN PRN ASTHMA 01/25/21 01/30/21 08:00 History (0.083 %) solution for nebulization lisinopril 5 mg tablet 5 mg PO DAILY 01/25/21 01/30/21 08:00 History atorvastatin 10 mg tablet 10 mg PO QHS 08/07/22 Unknown History guanfacine 3 mg tablet,extended 3 mg PO DAILY 01/05/24 Unknown History release 24 hr (Intuniv ER) prazosin 2 mg capsule 2 mg PO QHS 01/05/24 Unknown History fenofibrate nanocrystallized 48 mg 48 mg PO DAILY 05/21/24 Unknown History tablet lamotrigine 100 mg tablet 100 mg PO QHS 05/21/24 Unknown History metformin 500 mg tablet,extended 2,000 mg PO QHS DM 05/21/24 09/14/24 History release 24 hr metoprolol succinate 50 mg 75 mg PO DAILY 05/21/24 Unknown History tablet,extended release 24 hr blood-glucose sensor (FreeStyle 09/10/24 Unknown History Guerrero 3 Sensor device) brexpiprazole 3 mg tablet (Rexulti) 3 mg PO DAILY 09/10/24 Unknown History buspirone 15 mg tablet 15 mg PO BID 09/10/24 Unknown History clotrimazole 1 % topical cream 1 applic topical BID 09/10/24 Unknown History gabapentin 400 mg capsule 400 mg PO BID 09/10/24 Unknown History norethindrone acetate 1.5 1 tab PO DAILY 09/10/24 Unknown History mg-ethinyl estradiol 30 mcg tablet (Microgestin) ondansetron 4 mg disintegrating 4 mg PO Q8H PRN PRN Nausea #10 tabs 09/10/24 Unknown Rx tablet pen needle, diabetic 32 gauge x 09/10/24 Unknown History (BD Evy 2nd Gen Pen Needle) codeine 10 mg-guaifenesin 100 mg/5 10 ml PO 4X/DAY PRN cough 7 days 11/01/24 Unknown Rx mL oral liquid (Guaifenesin AC) #280 mL hydrocortisone acetate 25 mg 25 mg VA BID 6 days #12 ea 11/02/24 Unknown Rx rectal suppository (Anusol-HC) nystatin 100,000 unit/gram topical 1 applic topical BID #30 grams 11/02/24 Unknown Rx cream wjqkie-[id number]-qizposf 2 cap PO TID EPI #300 caps 11/18/24 Unknown Rx 36,000-114,000-180,000 unit capsule,delay rel (Creon) ascorbic acid (vitamin C) 500 mg 500 mg PO BID 12/16/24 Unknown History tablet famotidine 20 mg tablet 20 mg PO DAILY 12/16/24 Unknown History ferrous sulfate 140 mg (45 mg 140 mg PO BID 12/16/24 Unknown History iron) tablet,extended release (Slow Release Iron) insulin aspart U-100 100 unit/mL subcut 12/16/24 Unknown History (3 mL) subcutaneous pen (Novolog FlexPen U-100 Insulin aspart) insulin glargine 100 unit/mL (3 82 unit subcut DAILY 12/16/24 Unknown History mL) subcutaneous pen (Lantus Solostar U-100 Insulin) magnesium oxide 400 mg (241.3 mg 400 mg PO QDAY 12/16/24 Unknown History magnesium) tablet naproxen 500 mg tablet 500 mg PO BID PRN pain 12/16/24 Unknown History pantoprazole 40 mg tablet,delayed 40 mg PO BID 12/16/24 Unknown History release trazodone 100 mg tablet 100 mg PO QHS 12/16/24 Unknown History cephalexin 500 mg capsule 500 mg PO Q6 #40 CAPSULES 03/19/25 Unknown Rx albuterol sulfate 2.5 mg/3 mL 2.5 mg (3 mL) inhalation Q4H PRN 04/11/25 Unknown Rx (0.083 %) solution for nebulization shortness of breath or wheezing #180 mL azelastine 137 mcg (0.1 %) nasal 2 spray intranasal BID #30 mL 04/11/25 Unknown Rx spray azithromycin 250 mg tablet See Rx Instructions PO .COMPLEX #6 04/11/25 Unknown Rx (Zithromax Z-Wolf) tabs ipratropium 0.5 mg-albuterol 3 mg 3 ml inhalation Q6H PRN Shortness 04/11/25 Unknown Rx (2.5 mg base)/3 mL nebulization of breath or wheeze #90 mL soln prednisone 20 mg tablet 60 mg (3 x 20 mg) PO DAILY #12 04/12/25 Unknown Rx TABLETS Allergy/AdvReac Type Severity Reaction Status Date / Time celery Allergy Severe Anaphylaxis Verified 04/12/25 15:25 empagliflozin (From Allergy Intermediate yeast Verified 04/12/25 15:25 Jardiance) infection nitrofurantoin (From Allergy Intermediate rash Verified 04/12/25 15:25 Macrobid) sulfamethoxazole (From Allergy Intermediate intolerance Verified 04/12/25 15:25 Bactrim) trimethoprim (From Bactrim) Allergy Intermediate intolerance Verified 04/12/25 15:25 penicillin V potassium (From Allergy Mild Rash Verified 04/12/25 15:25 Pen-Vee K) adhesive tape (plastic tape) Allergy Rash Verified 04/12/25 15:25 brompheniramine maleate Allergy Shortness Verified 04/12/25 15:25 (From Dimetapp of breath (brompheniramine-PPA)) phenylpropanolamine HCl Allergy Shortness Verified 04/12/25 15:25 (From Dimetapp of breath (brompheniramine-PPA)) amoxicillin trihydrate (From AdvReac Intermediate Diarrhea Verified 04/12/25 15:25 Augmentin) potassium clavulanate (From AdvReac Intermediate Diarrhea Verified 04/12/25 15:25 Augmentin) dicyclomine HCl (From Bentyl) AdvReac Nausea/Vom/ Verified 04/12/25 15:25 Diarrhea fructose AdvReac Nausea/Vom/ Verified 04/12/25 15:25 Diarrhea sertraline (From Zoloft) AdvReac Other Verified 04/12/25 15:25 Family History Father Diabetes Hypertension Mother Hypertension Asthma Grandmother Breast cancer Hypertension Heart disease Grandfather Hypertension Diabetes 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 H/O partial adrenalectomy History of back surgery History of adrenal surgery H/O oophorectomy History of tonsillectomy and adenoidectomy H/O wisdom tooth extraction H/O ovarian cystectomy Hx of cholecystectomy Social History household members: family Smoking Status: Never smoker alcohol intake: current alcohol intake frequency: a few times a month substance use type: marijuana seatbelt use: always do you feel safe at home: Yes ROS ROS ED Constitutional Constitutional ED: Reports fever(s) and sweats; Denies chills or weight loss Eyes Eyes: Denies blurry vision, change in vision or diplopia ENT ENT ED: Reports rhinorrhea and sore throat; Denies ear pain Cardiovascular Cardiovascular: Denies chest pain, orthopnea, palpitations, paroxysmal nocturnal dyspnea or racing heartbeat Respiratory/Chest Respiratory/Chest: Reports cough, dyspnea, dyspnea on exertion and sputum; Denies orthopnea or paroxysmal nocturnal dyspnea Gastrointestinal Gastrointestinal: Denies abdominal pain, constipation, diarrhea, melena, nausea or vomiting Genitourinary Genitourinary ED: Denies dysuria, hematuria or urinary frequency Musculoskeletal Musculoskeletal: Denies arthralgias, back pain or myalgias Integumentary Denies rash Neurologic Neurologic: Denies headache(s) or paresthesias Psychiatric Psychiatric: Denies anxiety or depression Hematologic/Lymphatic Hematologic/Lymphatic: Denies easy bleeding or easy bruising EXAM Physical Exam Const Vital Signs: 04/12/25 15:25 04/12/25 15:46 04/12/25 16:18 Temperature 97.9 F 97.9 F Temperature Source Oral Oral Pulse Rate 108 H 96 101 H Respiratory Rate 26 H 20 H 20 H Respiratory Effort Respiratory Depth Respiratory Pattern Normal Blood Pressure 182/83 H 140/87 H Blood Pressure Mean 116 104 Pulse Ox 96 96 Oxygen Delivery Method Room Air Room Air 04/12/25 17:25 04/12/25 17:44 Temperature Temperature Source Pulse Rate 84 Respiratory Rate 20 H Respiratory Effort Short of Breath Respiratory Depth Normal Respiratory Pattern Normal Blood Pressure 120/58 L Blood Pressure Mean 78 Pulse Ox 95 Oxygen Delivery Method Room Air Room Air Positive well nourished and well developed Constitutional Narrative: Patient is tachypneic, tachycardic and has conversational dyspnea. Her voice is hoarse. Her blood pressure, heart rate, respiratory rate are all elevated. She is not hypoxic. She is not febrile presently either. Her BMI is greater than 60. General Appearance ED: well developed HEENT Reports moist mucous membranes HEENT Narrative: Posterior pharynx is unremarkable. atraumatic; Negative for tenderness Eyes PERRL and EOMs intact bilaterally General Eye ED: Negative for pale conjunctiva or scleral icterus Neck no lymphadenopathy, supple, no meningeal signs and no JVD Neck Narrative: Exam is limited due to body habitus Resp No normal respiratory effort and No clear to auscultation bilaterally Resp Narrative: Patient has decreased air movement, increased x-ray phase and high-pitched wheezes with forced expiration. Auscultation: wheezes expiratory wheezes and throughout Cardio regular rhythm, S1 normal heart sound, S2 normal heart sound and no murmurs Rate: tachycardic GI non-tender, non-distended and no masses Auscultation: normoactive bowel sounds Back/Spine no CVA tenderness and normal to inspection Extremity normal to inspection General Extremety ED: Negative for edema or tenderness General Extremity: Negative for edema Neuro oriented x3 and CN's II-XII intact bilaterally Sensorium / Orientation: alert Psych mental status grossly normal Skin no wounds and skin turgor normal Lesions: no lesions Rashes: no rashes MDM MDM MDM Narrative Medical decision making narrative: Records from the April 11 were reviewed. She did have a rapid antigen for COVID, influenza and RSV. These were negative. She did not have a chest x-ray at that time. She is in respiratory distress. Differential diagnosis is pneumonia, asthmatic bronchitis, need to consider pulmonary embolus. She is diabetic and poorly controlled. Her last A1c was 10.1. She denies history of PE or DVT. Clinically she does not have a DVT. With the patient have hoarse voice upper respiratory symptoms suspect this is infectious. Patient was treated with DuoNeb, albuterol x 2, Solu-Medrol and appropriate labs were obtained as well as the chest x-ray. History & Record Review Additional record(s) reviewed:: Prior ED visit and Prior labs Lab Data Attestation: I reviewed the patient's lab results. Lab results narrative: White count is 13.4 with slight shift. There is no bandemia. H&H is normal. Patient's lactate is elevated. This is due to her frequent use of nebulizer and MDI at home. This was written up in chest 1993 I believe. Labs: Laboratory Results - last 24 hr 04/12/25 04/12/25 16:08 16:17 WBC 13.4 H RBC 4.64 Hgb 12.0 Hct 38.4 MCV 82.8 MCH 25.9 L MCHC 31.3 L RDW Std Deviation 45.9 H RDW Coeff of Silvia 15.2 H Plt Count 326 MPV 10.5 Immature Gran % (Auto) 0.400 Neut % (Auto) 75.3 H Lymph % (Auto) 18.3 L Whitman % (Auto) 5.1 Eos % (Auto) 0.5 Baso % (Auto) 0.4 Absolute Neuts (auto) 10.1 H Absolute Lymphs (auto) 2.45 Nucleated RBC % 0 Sodium 137 Potassium 4.1 Chloride 101 Carbon Dioxide 21.4 Anion Gap 15 BUN 10 Creatinine 0.70 Estim Creat Clear Calc 224.00 Est GFR (MDRD) Non-Af 122 BUN/Creatinine Ratio 14.3 Glucose 283 H Lactic Acid 4.2 H* Calcium 9.6 Total Bilirubin 0.25 AST 57 H ALT 39 H Alkaline Phosphatase 67 Total Protein 7.2 Albumin 4.0 Globulin 3.2 Albumin/Globulin Ratio 1.2 POC Glucose 262 H Radiography Chest X-Ray - ED: 2 View, Read by ED Physician, Normal, Heart, Lungs, Mediastinum, Bony Structures and No Acute Disease (Technically difficult film due to body habitus, BMI 66.4) Diagnostic Testing: Clinical Impression(s) from Imaging Studies Chest X-Ray 04/12/25 16:55 IMPRESSION: No acute cardiopulmonary disease. Reading Location: [facility] [place] [facility] Treatment and Re-Evaluation :: Patient was reassessed at 1842. She is no longer tachypneic. She no longer has audible wheezing. She has no wheezing with normal breath. There is a slight wheeze noted on the right side with forced expiration. Expiratory phase is no longer delayed. Since she still has some wheezing even though she has an elevated A1c she was placed on a burst of prednisone. She is able to monitor her blood sugar continuously Discharge Plan Triage Chief Complaint: Shortness of Breath ED Provider: Ehsan Campbell Dx/Rx/DC Orders Clinical Impression: Acute bronchitis, Acute bronchospasm, Acidosis, lactic, Morbid obesity with BMI of 60.0-69.9, adult, GERD (gastroesophageal reflux disease), Sleep apnea, PCOS (polycystic ovarian syndrome) Instructions: ED Bronchitis with Wheezing (Adult) Prescriptions: New prednisone 20 mg tablet 60 mg PO DAILY Qty: 12 0RF No Action naproxen 500 mg tablet 500 mg PO BID PRN (Reason: pain) magnesium oxide 400 mg (241.3 mg magnesium) tablet 400 mg PO QDAY pantoprazole 40 mg tablet,delayed release (DR/EC) 40 mg PO BID famotidine 20 mg tablet 20 mg PO DAILY insulin aspart U-100 [Novolog FlexPen U-100 Insulin] 100 unit/mL (3 mL) insulin pen subcut Patient Comments: INJECT 20 UNITS SUBCUTANEOUSLY WITH MEALS AND INJECT PER SLIDING SCALE: 1 UNIT FOR EVERY 50 OVER 150 PRE MEAL BLOOD GLUCOSE. MAX 105 UNITS DAILY. ascorbic acid (vitamin C) 500 mg tablet 500 mg PO BID cholecalciferol (vitamin D3) 125 MCG capsule 125 mcg PO DAILY epinephrine 0.3 MG syringe 0.3 mg IM X1 PRN (Reason: Anaphylaxis) Qty: 1 0RF albuterol sulfate 2.5 mg /3 mL (0.083 %) solution for nebulization 2.5 mg inhalation PRN PRN (Reason: ASTHMA) Patient Comments: INHALE 1 VIAL VIA NEBULIZER EVERY 6 HOURS NEEDED FOR SHORTNESS OF BREATH AND WHEEZING lisinopril 5 mg tablet 5 mg PO DAILY Patient Comments: TAKE 1 TABLET BY MOUTH ONCE DAILY atorvastatin 10 mg tablet 10 mg PO QHS Patient Comments: TAKE 1 TABLET BY MOUTH ONCE DAILY AT BEDTIME FOR CHOLESTEROL ondansetron 4 mg tablet,disintegrating 4 mg PO Q8H PRN PRN (Reason: Nausea) Qty: 10 0RF gabapentin 400 mg capsule 400 mg PO BID norethindrone ac-eth estradiol [Microgestin 1.5/30 (21)] 1.5-30 mg-mcg tablet 1 tab PO DAILY clotrimazole 1 % cream 1 applic topical BID buspirone 15 mg tablet 15 mg PO BID (DME) FreeStyle Guerrero 3 Sensor Device MISCELLANEOUS QWEEK (DME) pen needle, diabetic [BD Evy 2nd Gen Pen Needle] 32 gauge x 5/32 needle MISCELLANEOUS DAILY Rexulti 3 mg tablet 3 mg PO DAILY insulin glargine [Lantus Solostar U-100 Insulin] 100 unit/mL (3 mL) insulin pen 82 unit subcut DAILY codeine-guaifenesin [Guaifenesin AC] 10-100 mg/5 mL liquid 10 ml PO 4X/DAY PRN (Reason: cough) 7 Days Qty: 280 0RF prazosin 2 mg capsule 2 mg PO QHS guanfacine [Intuniv ER] 3 mg tablet extended release 24 hr 3 mg PO DAILY trazodone 100 mg tablet 100 mg PO QHS Rx Instructions: One tablet in AM and 2 tabs at HS metoprolol succinate 50 mg tablet extended release 24 hr 75 mg PO DAILY metformin 500 mg tablet extended release 24 hr 2,000 mg PO QHS lamotrigine 100 mg tablet 100 mg PO QHS fenofibrate nanocrystallized 48 mg tablet 48 mg PO DAILY Slow Release Iron 140 mg (45 mg iron) tablet extended release 140 mg PO BID nystatin 100,000 unit/gram cream 1 applic topical BID Qty: 30 0RF hydrocortisone acetate [Anusol-HC] 25 mg suppository 25 mg VA BID 6 Days Qty: 12 0RF cephalexin 500 mg capsule 500 mg PO Q6 Qty: 40 0RF albuterol sulfate 2.5 mg /3 mL (0.083 %) solution for nebulization 2.5 mg inhalation Q4H PRN (Reason: shortness of breath or wheezing) Qty: 180 0RF ipratropium-albuterol 0.5 mg-3 mg(2.5 mg base)/3 mL solution for nebulization 3 ml inhalation Q6H PRN (Reason: Shortness of breath or wheeze) Qty: 90 0RF azelastine 137 mcg (0.1 %) spray,non-aerosol 2 spray intranasal BID Qty: 30 0RF Rx Instructions: administer into each nostril azithromycin [Zithromax Z-Wolf] 250 mg tablet See Rx Instructions .ROUTE .COMPLEX Qty: 6 0RF Rx Instructions: For 250 mg dose pack: take 500 mg today (day 1), then 250 mg for 4 days (days 2-5) Creon 36,000-114,000- 180,000 unit capsule,delayed release(DR/EC) 2 cap PO TID Qty: 300 11RF Rx Instructions: administer 3 capsules with meals and 1 capsule with snacks. Primary Care Provider: Miguelito Unger Referrals: Miguelito Unger MD [Primary Care Provider, [facility]] - 3-5 Days if not improving Activity Restrictions/Additional Instructions: Take prednisone until gone. 4 to 6 puffs of your metered-dose inhaler with spacer is equivalent to medication from a nebulizer. If you are having significant distress you may use 4 to 6 puffs and repeat in 15 minutes. If you are still having difficulty return to the emergency department Print Language: Estonian Disposition Disposition: Home, Self Care
[2025-04-12 15:46] VITALS: PULSE 96; RESP 20
[2025-04-12 16:18] VITALS: BP 140/87; PULSE 101; RESP 20; TEMP 36.6; O2SAT 96; BMI 66.4
[2025-04-12 16:21] LABS: Hematocrit 38.4 % (37-47); Hemoglobin 12.0 g/dL (12.0-15.0); Immature Granulocytes Count 0.060 X10^3/uL (0.0-0.0); Mean Corp Hgb Conc 31.3 g/dL (32-36); Mean Corpuscular Volume 82.8 fL (81-99); Mean Platelet Vol. 10.5 fl (6.2-12.0); NRBC Flagged by Analyzer 0 % (0-5); Platelet Count 326 K/mm3 (150-450); RBC Distribution Width CV 15.2 % (11.6-14.6); RBC Distribution Width SD 45.9 fl (35.1-43.9); Red Blood Count 4.64 M/mm3 (4.2-5.4); White Blood Count 13.4 K/mm3 (4.4-11.0)
[2025-04-12 16:48] LABS: AST(SGOT) 57 U/L (<=31); Alanine Aminotransfer ALT/SGPT 39 U/L (<=34); Albumin, Serum 4.0 g/dL (3.5-5.0); Alkaline Phosphatase 67 U/L (35-104); Anion Gap 15 (5-15); BUN 10 mg/dL (4-19); BUN/Creat Ratio 14.3 RATIO (10-20); Calcium,Total 9.6 mg/dL (7.6-11.0); Carbon Dioxide 21.4 mmol/L (21.0-32.0); Chloride 101 mmol/L (98-108); Estimated Creatinine Clearance 224.00 ml/min (50-250); Globulin 3.2 g/dL (2.2-4.2); Glucose 283 mg/dL (70-99); Potassium 4.1 mmol/L (3.3-5.1)
--- NOTE | 2025-04-12 16:55 | RAD_ITS ---
PROCEDURE: CHEST PA AND LATERAL 04/12/2025 REASON FOR EXAM: DYSPNEA, TACHYCARDIA, TACHYPNEA, PRODUCTIVE COUGH TECHNIQUE: Procedure Code: RADCXR Modality: DX Procedure: CHEST PA AND LATERAL COMPARISON: 11/01/2024 FINDINGS: Lungs/Pleura: No focal consolidation, pneumothorax or pleural effusion appreciated. Heart/Mediastinum: Normal in size and contour. No vascular congestion. Bones/Soft tissues: Unremarkable. RAD/Chest PA and Lateral IMPRESSION: No acute cardiopulmonary disease. Reading Location: [id number]
[2025-04-12 17:25] VITALS: BP 120/58; PULSE 84; RESP 20; O2SAT 95
[2025-04-12 17:44] VITALS: O2SAT 95
[2025-04-12 18:59] VITALS: BP 164/78; PULSE 89; RESP 20; TEMP 36.9; O2SAT 100
[2025-04-12 20:17] LABS: Reflex Lactate? Y
== END 2025-04-12 19:00 | disposition home or self-care (01) ==
PROVIDERS: Emergency Provider Emergency Medicine; PCP Family Medicine; Visit Provider Emergency Medicine
DX: J20.9 Acute bronchitis, unspecified (principal); F31.9 Bipolar disorder, unspecified; E66.01 Morbid (severe) obesity due to excess calories; Z68.44 Body mass index [BMI] 60.0-69.9, adult; Z79.4 Long term (current) use of insulin; E11.9 Type 2 diabetes mellitus without complications; E87.20 Acidosis, unspecified; E55.9 Vitamin D deficiency, unspecified; M81.0 Age-related osteoporosis without current pathological fracture; K21.9 Gastro-esophageal reflux disease without esophagitis; F41.9 Anxiety disorder, unspecified; F90.9 Attention-deficit hyperactivity disorder, unspecified type; E28.2 Polycystic ovarian syndrome; E78.1 Pure hyperglyceridemia; G47.30 Sleep apnea, unspecified; G89.29 Other chronic pain; M51.369 Other intervertebral disc degeneration, lumbar region without mention of lumbar back pain or lower extremity pain; J45.909 Unspecified asthma, uncomplicated; Z90.49 Acquired absence of other specified parts of digestive tract; Z85.43 Personal history of malignant neoplasm of ovary; Z79.84 Long term (current) use of oral hypoglycemic drugs; Z87.440 Personal history of urinary (tract) infections; Z79.899 Other long term (current) drug therapy
CPT/HCPCS: 71046; 80053; 82962; 83605; 85025; 93005; 94640; 96374; 99284; A4216

== ENCOUNTER 2025-04-23 08:39 | Emergency (ER) | payer MEDICARE, MEDICAID, SELFPAY ==
[2025-04-23 08:39] VITALS: BP 170/93; PULSE 105; RESP 18; TEMP 36.6; O2SAT 97; BMI 65.7
--- NOTE | 2025-04-23 08:47 | CT_ITS ---
PROCEDURE: ABDOMEN/PELVIS W IV CONT ONLY 04/23/2025 REASON FOR EXAM: RLQ PAIN TECHNIQUE: Procedure Code: [id number] Modality: CT Procedure: ABDOMEN/PELVIS W IV CONT ONLY Coronal and Sagittal reconstruction series were provided. CONTRAST: Isovue 370 VOLUME: 100 mL One or more dose reduction techniques were used (e.g., Automated exposure control, adjustment of the mA and/or kV according to patient size, use of iterative reconstruction technique. RADIATION DOSE SUMMARY: CTDlvol: 43.92 mGy DLP: 2128.88 mGycm COMPARISON: 03/19/2025 FINDINGS: Lung bases: Clear Liver: Diffuse fatty infiltration. Gallbladder: Surgically absent. Spleen: Normal size. Pancreas: Normal size without evidence of mass surrounding inflammation or ductal dilation. Adrenals: Unremarkable Kidneys: No obstructive uropathy, or suspicious solid renal lesion. Bladder: Incompletely distended, there is a bubble of air within the bladder which may be from recent catheterization. Reproductive Organs: Normal-appearing uterus. There is a 5.3 cm right adnexal cyst, given the patient's age, no specific follow-up is needed. There is no associated free fluid in the dependent pelvis. However, the size of the cysts could easily be responsible for the patient's discomfort. Bowel: No CTA evidence of obstruction, there is evidence of nondistended fluid- filled small bowel loops consistent with ileus. Retained stool noted in the colon. Appendix: Normal appendix seen on coronal recon images 72 through 84. Lymph nodes: No suspicious mesenteric or retroperitoneal adenopathy Vasculature: The abdominal aorta and IVC are normal. Peritoneum / Retroperitoneum: No free fluid or air Bones: Unremarkable Small fat containing ventral hernia CT/Abdomen/Pelvis W IV Cont ONLY IMPRESSION: No CTA evidence of an acute inflammatory process in the right lower quadrant. Normal appendix visualized There is a 5.3 cm right adnexal region cyst, given the patient's age, no specif ic follow-up is needed but the size of the cyst could easily be responsible for the patient's pain and discomfort Hepatomegaly with mild fatty infiltration of the liver, no discrete lesion Small-bowel ileus Reading Location: [id number]
--- NOTE | 2025-04-23 08:47 | EX.ED.DYSGE1 ---
HPI History of Present Illness Chief Complaint: Abd Pain Narrative Narrative: Patient is a 29-year-old female past medical history of eczema and pancreatic insufficiency, BMI of 65.8, MAXIMILIAN, type 2 diabetes, bipolar disorder, PCOS who presents to the emergency department chief complaint of abdominal pain. States that she went to urgent care and they sent her here to be further evaluated. States that has been going on for 4 days now and bowel movements. Make this worse. She states that she does not have issues with constipation. States that she had her left ovary removed and her right adrenal gland removed. [facility] Medical History Panic attacks Palpitations Tachycardia Vitamin D deficiency Exocrine pancreatic insufficiency Renal colic Kidney stone on right side Morbid obesity with BMI of 60.0-69.9, adult Osteoporosis GERD (gastroesophageal reflux disease) CPAP (continuous positive airway pressure) dependence Sleep apnea Proteinuria due to type 2 diabetes mellitus Hypertriglyceridemia Diabetes Anxiety disorder, unspecified ADHD Bipolar 1 disorder Facial paresthesia Cancer Depression Arthritis Injury of back Injury of head and neck History of irregular heartbeat Chronic low back pain with sciatica RAD (reactive airway disease) Chest pain of uncertain etiology Lumbar degenerative disc disease Abner disease Ovarian cyst Asthma PCOS (polycystic ovarian syndrome) Paratubal cyst Home Medications Medication Instructions Recorded Last Taken Type cholecalciferol (vitamin D3) 125 125 mcg PO DAILY supplement 05/17/19 01/24/21 08:00 History mcg (5,000 unit) capsule epinephrine 0.3 mg/0.3 mL 0.3 mg (0.3 mL) IM X1 PRN 05/14/20 01/30/21 08:00 Rx injection, auto-injector Anaphylaxis #1 syringe lisinopril 5 mg tablet 5 mg PO DAILY 01/25/21 01/30/21 08:00 History atorvastatin 10 mg tablet 10 mg PO QHS 08/07/22 Unknown History prazosin 2 mg capsule 2 mg PO QHS 01/05/24 Unknown History fenofibrate nanocrystallized 48 mg 48 mg PO DAILY 05/21/24 Unknown History tablet lamotrigine 100 mg tablet 100 mg PO QHS 05/21/24 Unknown History metformin 500 mg tablet,extended 2,000 mg PO QHS DM 05/21/24 09/14/24 History release 24 hr metoprolol succinate 50 mg 75 mg PO DAILY 05/21/24 Unknown History tablet,extended release 24 hr blood-glucose sensor (FreeStyle 09/10/24 Unknown History Guerrero 3 Sensor device) buspirone 15 mg tablet 15 mg PO BID 09/10/24 Unknown History norethindrone acetate 1.5 1 tab PO DAILY 09/10/24 Unknown History mg-ethinyl estradiol 30 mcg tablet (Microgestin) pen needle, diabetic 32 gauge x 09/10/24 Unknown History " (BD Evy 2nd Gen Pen Needle) hydrocortisone acetate 25 mg 25 mg OH BID 6 days #12 ea 11/02/24 Unknown Rx rectal suppository (Anusol-HC) [id number] 2 cap PO TID EPI #300 caps 11/18/24 Unknown Rx (pork)36,000-114,000-180k unit capsule,del rel (Creon) ascorbic acid (vitamin C) 500 mg 500 mg PO BID 12/16/24 Unknown History tablet ferrous sulfate 140 mg (45 mg 140 mg PO BID 12/16/24 Unknown History iron) tablet,extended release (Slow Release Iron) insulin aspart U-100 100 unit/mL subcut 12/16/24 Unknown History (3 mL) subcutaneous pen (Novolog FlexPen U-100 Insulin aspart) insulin glargine 100 unit/mL (3 82 unit subcut DAILY 12/16/24 Unknown History mL) subcutaneous pen (Lantus Solostar U-100 Insulin) magnesium oxide 400 mg (241.3 mg 400 mg PO QDAY 12/16/24 Unknown History magnesium) tablet pantoprazole 40 mg tablet,delayed 40 mg PO BID 12/16/24 Unknown History release trazodone 100 mg tablet 100 mg PO QHS 12/16/24 Unknown History cephalexin 500 mg capsule 500 mg PO Q6 #40 CAPSULES 03/19/25 Unknown Rx albuterol sulfate 2.5 mg/3 mL 2.5 mg (3 mL) inhalation Q4H PRN 04/11/25 Unknown Rx (0.083 %) solution for nebulization shortness of breath or wheezing #180 mL azelastine 137 mcg (0.1 %) nasal 2 spray intranasal BID #30 mL 04/11/25 Unknown Rx spray ipratropium 0.5 mg-albuterol 3 mg 3 ml inhalation Q6H PRN Shortness 04/11/25 Unknown Rx (2.5 mg base)/3 mL nebulization of breath or wheeze #90 mL soln prednisone 20 mg tablet 60 mg (3 x 20 mg) PO DAILY #12 04/12/25 Unknown Rx TABLETS brexpiprazole 4 mg tablet (Rexulti) 4 mg PO DAILY 04/23/25 Unknown History gabapentin 600 mg tablet 600 mg PO BID 04/23/25 Unknown History lamotrigine 25 mg tablet 50 mg PO DAILY 04/23/25 Unknown History ondansetron 4 mg disintegrating 4 mg PO Q6H PRN nausea and 04/23/25 Unknown Rx tablet vomiting #30 tabs prazosin 1 mg capsule 1 mg PO QHS 04/23/25 Unknown History Allergy/AdvReac Type Severity Reaction Status Date / Time celery Allergy Severe Anaphylaxis Verified 04/23/25 08:39 empagliflozin (From Allergy Intermediate yeast Verified 04/23/25 08:39 Jardiance) infection nitrofurantoin (From Allergy Intermediate rash Verified 04/23/25 08:39 Macrobid) sulfamethoxazole (From Allergy Intermediate intolerance Verified 04/23/25 08:39 Bactrim) trimethoprim (From Bactrim) Allergy Intermediate intolerance Verified 04/23/25 08:39 penicillin V potassium (From Allergy Mild Rash Verified 04/23/25 08:39 Pen-Vee K) adhesive tape (plastic tape) Allergy Rash Verified 04/23/25 08:39 brompheniramine maleate Allergy Shortness Verified 04/23/25 08:39 (From Dimetapp of breath (brompheniramine-PPA)) phenylpropanolamine HCl Allergy Shortness Verified 04/23/25 08:39 (From Dimetapp of breath (brompheniramine-PPA)) amoxicillin trihydrate (From AdvReac Intermediate Diarrhea Verified 04/23/25 08:39 Augmentin) potassium clavulanate (From AdvReac Intermediate Diarrhea Verified 04/23/25 08:39 Augmentin) dicyclomine HCl (From Bentyl) AdvReac Nausea/Vom/ Verified 04/23/25 08:39 Diarrhea fructose AdvReac Nausea/Vom/ Verified 04/23/25 08:39 Diarrhea sertraline (From Zoloft) AdvReac Other Verified 04/23/25 08:39 Family History Father Diabetes Hypertension Mother Hypertension Asthma Grandmother Breast cancer Hypertension Heart disease Grandfather Hypertension Diabetes 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 H/O partial adrenalectomy History of back surgery History of adrenal surgery H/O oophorectomy History of tonsillectomy and adenoidectomy H/O wisdom tooth extraction H/O ovarian cystectomy Hx of cholecystectomy Social History household members: family Smoking Status: Never smoker alcohol intake: current alcohol intake frequency: a few times a month substance use type: marijuana seatbelt use: always do you feel safe at home: Yes ROS ROS ED ROS Narrative Constitutional: Denies any fevers or chills Abdomen: Complains of abdominal pain as noted above denies nausea vomiting : Denies urinary symptoms Neurological: Denies any numbness, weakness, tingling Musculoskeletal: Denies back pain Skin: Denies any rashes or lesions EXAM Physical Exam Narrative Exam Narrative: General: Patient is lying in bed rest comfortably did not appear to be in acute distress Head: Atraumatic, normocephalic Eyes: PERRL bilaterally, EOMI bilaterally, no conjunctival injection noted Neck: Soft, supple, trachea midline Cardiovascular: Patient tachycardic with a regular rhythm Respiratory: Clear to auscultation bilaterally Abdomen: Soft, nondistended, tender to palpation in the right lower quadrant Extremities: +5/5 strength noted in the bilateral lower extremities Neurological: Patient following commands knew that she was at [facility] years 2024 Skin: Warm, dry, tact no rashes or lesions noted Const Vital Signs: 04/23/25 08:39 04/23/25 11:00 Temperature 98 F Temperature Source Temporal Pulse Rate 105 H 76 Respiratory Rate 18 16 Blood Pressure 170/93 H 121/54 H Blood Pressure Mean 118 76 Pulse Ox 97 95 Oxygen Delivery Method Room Air Room Air MDM MDM MDM Narrative Medical decision making narrative: Patient is a 29-year-old female who presented to the emergency department chief complaint of right lower quadrant abdominal pain. On the differential diagnose includes but not limited to appendicitis, constipation, viral gastroenteritis, bowel obstruction. Once workup is obtained reviewed she will be reevaluated. Patient white count is noted to be 13,000 this is chronically elevated, he was 12.2, platelet count of 332. Patient odium is 135, potassium normal 3.8, creatinine 0.46. Patient glucose chronically elevated today was noted be 301 anion gap normal at 11. Patient lipase normal at 40, testing was negative. Patient urinalysis reviewed and showed no evidence of infection. Patient CT ab pelvis with IV contrast reviewed showed no evidence of appendicitis, there is noted to be a right adnexal region cyst 5.3 cm. When discussing this with the patient she states that she has known about this and she is following with [employer] on this. Hepatomegaly with mild fatty infiltration of the liver no discrete lesions small bowel ileus. Patient is eating and drinking. On reevaluation the patient and she would like to go home at this point time. She is vies to follow-up with her doctor in outpatient setting return with worsening symptoms or any concerns. She is agreeable this plan all question concerns answered she was discharged home in stable condition. Patient given prescription for Zofran. Lab Data Labs: Laboratory Results - last 24 hr 04/23/25 04/23/25 09:10 10:00 WBC 13.0 H RBC 4.58 Hgb 12.2 Hct 38.0 MCV 83.0 MCH 26.6 L MCHC 32.1 RDW Std Deviation 44.1 H RDW Coeff of Silvia 14.6 Plt Count 332 MPV 9.9 Immature Gran % (Auto) 0.700 Neut % (Auto) 70.5 H Lymph % (Auto) 19.8 Bladen % (Auto) 6.6 Eos % (Auto) 2.0 Baso % (Auto) 0.4 Absolute Neuts (auto) 9.1 H Absolute Lymphs (auto) 2.56 Nucleated RBC % 0 Sodium 135 Potassium 3.8 Chloride 103 Carbon Dioxide 22.0 Anion Gap 11 BUN 8 Creatinine 0.46 L Estim Creat Clear Calc 338.79 H Est GFR (MDRD) Non-Af 134 BUN/Creatinine Ratio 16.6 Glucose 301 H Calcium 8.9 Total Bilirubin 0.22 AST 23 ALT 34 Alkaline Phosphatase 57 Total Protein 6.5 Albumin 3.5 Globulin 3.0 Albumin/Globulin Ratio 1.2 Lipase 40 Serum , Qual NEGATIVE Urine Color Yellow Urine Clarity Clear Urine pH 6.0 Ur Specific Eastman 1.015 Urine Protein 30 H Urine Glucose (UA) 1000 H Urine Ketones Negative Urine Occult Blood 10 H Urine Nitrite Negative Urine Bilirubin Negative Urine Urobilinogen Normal Ur Leukocyte Esterase 100 H Urine RBC 0 SEEN Urine WBC 0-5 SEEN Ur Squamous Epith Cells 0-5 SEEN Urine Bacteria RARE Urine Mucus 0 SEEN Radiography Diagnostic Testing: Clinical Impression(s) from Imaging Studies Abdomen/Pelvis CT 04/23/25 08:47 IMPRESSION: No CTA evidence of an acute inflammatory process in the right lower quadrant. Normal appendix visualized There is a 5.3 cm right adnexal region cyst, given the patient's age, no specific follow-up is needed but the size of the cyst could easily be responsible for the patient's pain and discomfort Hepatomegaly with mild fatty infiltration of the liver, no discrete lesion Small-bowel ileus Reading Location: [id number] Discharge Plan Triage Chief Complaint: Abd Pain ED Provider: Zeyad Aranda Dx/Rx/DC Orders Clinical Impression: Abdominal pain, Asthma, Sleep apnea, PCOS (polycystic ovarian syndrome) Prescriptions: New ondansetron 4 mg tablet,disintegrating 4 mg PO Q6H PRN (Reason: nausea and vomiting) Qty: 30 0RF No Action magnesium oxide 400 mg (241.3 mg magnesium) tablet 400 mg PO QDAY pantoprazole 40 mg tablet,delayed release (DR/EC) 40 mg PO BID insulin aspart U-100 [Novolog FlexPen U-100 Insulin] 100 unit/mL (3 mL) insulin pen subcut Patient Comments: INJECT 20 UNITS SUBCUTANEOUSLY WITH MEALS AND INJECT PER SLIDING SCALE: 1 UNIT FOR EVERY 50 OVER 150 PRE MEAL BLOOD GLUCOSE. MAX 105 UNITS DAILY. ascorbic acid (vitamin C) 500 mg tablet 500 mg PO BID cholecalciferol (vitamin D3) 125 MCG capsule 125 mcg PO DAILY epinephrine 0.3 MG syringe 0.3 mg IM X1 PRN (Reason: Anaphylaxis) Qty: 1 0RF lisinopril 5 mg tablet 5 mg PO DAILY Patient Comments: TAKE 1 TABLET BY MOUTH ONCE DAILY atorvastatin 10 mg tablet 10 mg PO QHS Patient Comments: TAKE 1 TABLET BY MOUTH ONCE DAILY AT BEDTIME FOR CHOLESTEROL norethindrone ac-eth estradiol [Microgestin 1.5/30 (21)] 1.5-30 mg-mcg tablet 1 tab PO DAILY buspirone 15 mg tablet 15 mg PO BID (DME) FreeStyle Guerrero 3 Sensor Device MISCELLANEOUS QWEEK (DME) pen needle, diabetic [BD Evy 2nd Gen Pen Needle] 32 gauge x 5/32" needle MISCELLANEOUS DAILY insulin glargine [Lantus Solostar U-100 Insulin] 100 unit/mL (3 mL) insulin pen 82 unit subcut DAILY gabapentin 600 mg tablet 600 mg PO BID prazosin 1 mg capsule 1 mg PO QHS lamotrigine 25 mg tablet 50 mg PO DAILY Rexulti 4 mg tablet 4 mg PO DAILY prazosin 2 mg capsule 2 mg PO QHS trazodone 100 mg tablet 100 mg PO QHS Rx Instructions: One tablet in AM and 2 tabs at HS metoprolol succinate 50 mg tablet extended release 24 hr 75 mg PO DAILY metformin 500 mg tablet extended release 24 hr 2,000 mg PO QHS lamotrigine 100 mg tablet 100 mg PO QHS fenofibrate nanocrystallized 48 mg tablet 48 mg PO DAILY Slow Release Iron 140 mg (45 mg iron) tablet extended release 140 mg PO BID hydrocortisone acetate [Anusol-HC] 25 mg suppository 25 mg OH BID 6 Days Qty: 12 0RF cephalexin 500 mg capsule 500 mg PO Q6 Qty: 40 0RF albuterol sulfate 2.5 mg /3 mL (0.083 %) solution for nebulization 2.5 mg inhalation Q4H PRN (Reason: shortness of breath or wheezing) Qty: 180 0RF ipratropium-albuterol 0.5 mg-3 mg(2.5 mg base)/3 mL solution for nebulization 3 ml inhalation Q6H PRN (Reason: Shortness of breath or wheeze) Qty: 90 0RF azelastine 137 mcg (0.1 %) spray,non-aerosol 2 spray intranasal BID Qty: 30 0RF Rx Instructions: administer into each nostril prednisone 20 mg tablet 60 mg PO DAILY Qty: 12 0RF Creon 36,000-114,000- 180,000 unit capsule,delayed release(DR/EC) 2 cap PO TID Qty: 300 11RF Rx Instructions: administer 3 capsules with meals and 1 capsule with snacks. Primary Care Provider: Miguelito Unger Referrals: Miguelito Unger MD [Primary Care Provider, Family Practice] Activity Restrictions/Additional Instructions: Follow-up your doctor in outpatient setting. Return with worsening symptoms or concerns. Your blood work not showing acute findings your CT did not show any evidence of appendicitis. Print Language: Croatian Disposition Disposition: Home, Self Care
[2025-04-23] MEDS: 0.9% Normal Saline (1000mL) 1,000 ML 999 ML IV ×2 (09:11→10:11)
[2025-04-23 09:19] LABS: Hematocrit 38.0 % (37-47); Hemoglobin 12.2 g/dL (12.0-15.0); Immature Granulocytes Count 0.090 X10^3/uL (0.0-0.0); Mean Corp Hgb Conc 32.1 g/dL (32-36); Mean Corpuscular Volume 83.0 fL (81-99); Mean Platelet Vol. 9.9 fl (6.2-12.0); NRBC Flagged by Analyzer 0 % (0-5); Platelet Count 332 K/mm3 (150-450); RBC Distribution Width CV 14.6 % (11.6-14.6); RBC Distribution Width SD 44.1 fl (35.1-43.9); Red Blood Count 4.58 M/mm3 (4.2-5.4); White Blood Count 13.0 K/mm3 (4.4-11.0)
[2025-04-23 09:30] LABS: Internal QC Validated? YES +Cl - CLEAR BKGD; Pregnancy, Serum, hCG Quali. NEGATIVE Negative
[2025-04-23 09:31] LABS: Record Kit Lot#, Serum Preg. 980607
[2025-04-23 09:47] LABS: AST(SGOT) 23 U/L (<=31); Alanine Aminotransfer ALT/SGPT 34 U/L (<=34); Albumin, Serum 3.5 g/dL (3.5-5.0); Alkaline Phosphatase 57 U/L (35-104); Anion Gap 11 (5-15); BUN 8 mg/dL (4-19); BUN/Creat Ratio 16.6 RATIO (10-20); Calcium,Total 8.9 mg/dL (7.6-11.0); Carbon Dioxide 22.0 mmol/L (21.0-32.0); Chloride 103 mmol/L (98-108); Estimated Creatinine Clearance 338.79 ml/min (50-250); Globulin 3.0 g/dL (2.2-4.2); Glucose 301 mg/dL (70-99); Lipase 40 U/L (13-75); Potassium 3.8 mmol/L (3.3-5.1)
[2025-04-23 10:09] LABS: Mucous, Urine 0 SEEN /hpf (<or=2+); Red Blood Cells-Urine 0 SEEN /hpf (0-5)
[2025-04-23 10:11] LABS: Color, Urine Yellow (Yellow); Glucose, Dipstick 1000 mg/dl (Normal); Ketone-Dipstick Negative (Negative); Leukocyte Esterase-Dipstick 100 /ul (Negative); Nitrite-Dipstick Negative (Negative); Occult Blood-Urine 10 /ul (Negative); Protein-Dipstick 30 mg/dl (Negative); Specific Gravity, Urine 1.015 (1.002-1.030); Urine Bilirubin Dipstick Negative (Negative)
[2025-04-23 10:18] LABS: Squamous Epithelial Cells - UA 0-5 SEEN /hpf (5-10)
[2025-04-23 11:00] VITALS: BP 121/54; PULSE 76; RESP 16; O2SAT 95
[2025-04-23 11:54] VITALS: BP 146/76; PULSE 64; RESP 18; TEMP 36.6; O2SAT 99
== END 2025-04-23 11:55 | disposition home or self-care (01) ==
PROVIDERS: Emergency Provider Emergency Medicine; PCP Family Medicine; Visit Provider Emergency Medicine
DX: R10.31 Right lower quadrant pain (principal); F31.9 Bipolar disorder, unspecified; E11.9 Type 2 diabetes mellitus without complications; K76.0 Fatty (change of) liver, not elsewhere classified; E28.2 Polycystic ovarian syndrome; J45.909 Unspecified asthma, uncomplicated; R16.0 Hepatomegaly, not elsewhere classified; K21.9 Gastro-esophageal reflux disease without esophagitis; Z79.899 Other long term (current) drug therapy; G47.30 Sleep apnea, unspecified
CPT/HCPCS: 74177; 80053; 81001; 83690; 84703; 85025; 96361; 96374; 99283; Q9967; A4216; J2405

== ENCOUNTER 2025-04-25 15:00 | Emergency (ER) | payer MEDICARE, MEDICAID, SELFPAY ==
[2025-04-25 15:00] VITALS: BP 169/82; PULSE 99; RESP 16; TEMP 36.8; O2SAT 97; BMI 65.5
[2025-04-25 15:42] LABS: Hematocrit 40.6 % (37-47); Hemoglobin 12.7 g/dL (12.0-15.0); Immature Granulocytes Count 0.130 X10^3/uL (0.0-0.0); Mean Corp Hgb Conc 31.3 g/dL (32-36); Mean Corpuscular Volume 83.5 fL (81-99); Mean Platelet Vol. 10.2 fl (6.2-12.0); NRBC Flagged by Analyzer 0 % (0-5); Platelet Count 390 K/mm3 (150-450); RBC Distribution Width CV 14.7 % (11.6-14.6); RBC Distribution Width SD 44.3 fl (35.1-43.9); Red Blood Count 4.86 M/mm3 (4.2-5.4); White Blood Count 18.2 K/mm3 (4.4-11.0)
[2025-04-25 15:51] LABS: Internal QC Validated? YES +Cl - CLEAR BKGD
[2025-04-25 15:52] LABS: Pregnancy, Serum, hCG Quali. NEGATIVE Negative; Record Kit Lot#, Serum Preg. 0000980607
[2025-04-25 16:05] LABS: AST(SGOT) 34 U/L (<=31); Alanine Aminotransfer ALT/SGPT 30 U/L (<=34); Albumin, Serum 3.7 g/dL (3.5-5.0); Alkaline Phosphatase 60 U/L (35-104); Anion Gap 14 (5-15); BUN 10 mg/dL (4-19); BUN/Creat Ratio 18.6 RATIO (10-20); Calcium,Total 9.5 mg/dL (7.6-11.0); Carbon Dioxide 19.0 mmol/L (21.0-32.0); Chloride 101 mmol/L (98-108); Estimated Creatinine Clearance 293.45 ml/min (50-250); Globulin 3.4 g/dL (2.2-4.2); Glucose 297 mg/dL (70-99); Lipase 31 U/L (13-75); Potassium 4.2 mmol/L (3.3-5.1)
--- NOTE | 2025-04-25 16:35 | US_ITS ---
PROCEDURE: TRANSVAGINAL NON- 04/25/2025 REASON FOR EXAM: RIGHT PELVIC PAIN WITH KNOWN OVARIAN CYST. TECHNIQUE: Procedure Code: USTVAG Modality: US Procedure: TRANSVAGINAL NON- FINDINGS: Uterus measures 8 x 4.6 x 3.8 cm. It is anteverted position. No uterine fibroids are noted. Endometrial stripe measures 2 mm. It is hyperechoic. Nabothian cysts are noted. Right ovary measures 6.9 x 6.0 x 6.0 cm and left ovary is removed. Right ovarian cyst measuring 5.3 x 4.9 x 4.3 cm. No significant free fluid within the cul-de-sac. Debris seen within the bladder. US/Transvaginal Non- IMPRESSION: Left ovary is removed. Right ovary contains a large cyst measuring 5.3 cm. No right ovarian torsion. Debris is noted within the bladder. Reading Location: [id number]
--- NOTE | 2025-04-25 16:38 | ED.VIS.GI ---
HPI HPI - GI History of Present Illness Chief Complaint: Abd Pain Detail of Chief Complaint: Right lower quadrant pelvic and abdominal pain. Informant: patient Abdominal Pain/Flank Pain Onset: Days Context: Gradual Onset Timing: Continuous Location: RLQ and See Diagram (Right-sided pelvic.) Current Severity: Moderate Maximum Severity: Moderate Worsened by: Nothing Relieved by: Nothing Nausea/Vomiting/Emesis GI Symptom: Positive for Nausea and Vomiting Onset: Today Severity: Mild Diarrhea/Melena/Hematochezia GI Symptom: Positive for Diarrhea Onset: Today Stool Quality: Positive for Loose Severity: Mild Associated Symptoms Associated Symptoms: Negative for Dysuria, Frequency, Hematuria or Urgency Narrative Narrative: 29-year-old female history of polycystic hearing syndrome, bipolar, diabetes. Prior cholecystectomy. Prior left ovarian cyst removed secondary to ovarian cancer. States that she has had right lower quadrant pain for days. She was seen here 2 days ago diagnosed with a 5.2 cm right ovarian cyst. Says it feels like her prior cyst which is more painful. States she has had increased nausea and vomiting. Denies any dysuria. Was seen in the emergency department negative test then. CAT scan showed cyst. Prior similar symptoms: Yes Recent Illness/Hospitalization: No PFSH [facility] Medical History Panic attacks Palpitations Tachycardia Vitamin D deficiency Exocrine pancreatic insufficiency Renal colic Kidney stone on right side Morbid obesity with BMI of 60.0-69.9, adult Osteoporosis GERD (gastroesophageal reflux disease) CPAP (continuous positive airway pressure) dependence Sleep apnea Proteinuria due to type 2 diabetes mellitus Hypertriglyceridemia Diabetes Anxiety disorder, unspecified ADHD Bipolar 1 disorder Facial paresthesia Cancer Depression Arthritis Injury of back Injury of head and neck History of irregular heartbeat Chronic low back pain with sciatica RAD (reactive airway disease) Chest pain of uncertain etiology Lumbar degenerative disc disease [place] disease Ovarian cyst Asthma PCOS (polycystic ovarian syndrome) Paratubal cyst Home Medications ?Medication ?Instructions ?Recorded ?Last Taken ?Type cholecalciferol (vitamin D3) 125 125 mcg PO DAILY supplement 05/17/19 01/24/21 08:00 History mcg (5,000 unit) capsule epinephrine 0.3 mg/0.3 mL 0.3 mg (0.3 mL) IM X1 PRN 05/14/20 01/30/21 08:00 Rx injection, auto-injector Anaphylaxis #1 syringe lisinopril 5 mg tablet 5 mg PO DAILY 01/25/21 01/30/21 08:00 History atorvastatin 10 mg tablet 10 mg PO QHS 08/07/22 Unknown History prazosin 2 mg capsule 2 mg PO QHS 01/05/24 Unknown History fenofibrate nanocrystallized 48 mg 48 mg PO DAILY 05/21/24 Unknown History tablet lamotrigine 100 mg tablet 100 mg PO QHS 05/21/24 Unknown History metformin 500 mg tablet,extended 2,000 mg PO QHS DM 05/21/24 09/14/24 History release 24 hr metoprolol succinate 50 mg 75 mg PO DAILY 05/21/24 Unknown History tablet,extended release 24 hr blood-glucose sensor (FreeStyle 09/10/24 Unknown History Guerrero 3 Sensor device) buspirone 15 mg tablet 15 mg PO BID 09/10/24 Unknown History norethindrone acetate 1.5 1 tab PO DAILY 09/10/24 Unknown History mg-ethinyl estradiol 30 mcg tablet (Microgestin) pen needle, diabetic 32 gauge x 09/10/24 Unknown History (BD Evy 2nd Gen Pen Needle) hydrocortisone acetate 25 mg 25 mg IN BID 6 days #12 ea 11/02/24 Unknown Rx rectal suppository (Anusol-HC) [id number] 2 cap PO TID EPI #300 caps 11/18/24 Unknown Rx (pork)36,000-114,000-180k unit capsule,del rel (Creon) ascorbic acid (vitamin C) 500 mg 500 mg PO BID 12/16/24 Unknown History tablet ferrous sulfate 140 mg (45 mg 140 mg PO BID 12/16/24 Unknown History iron) tablet,extended release (Slow Release Iron) insulin aspart U-100 100 unit/mL subcut 12/16/24 Unknown History (3 mL) subcutaneous pen (Novolog FlexPen U-100 Insulin aspart) insulin glargine 100 unit/mL (3 82 unit subcut DAILY 12/16/24 Unknown History mL) subcutaneous pen (Lantus Solostar U-100 Insulin) magnesium oxide 400 mg (241.3 mg 400 mg PO QDAY 12/16/24 Unknown History magnesium) tablet pantoprazole 40 mg tablet,delayed 40 mg PO BID 12/16/24 Unknown History release trazodone 100 mg tablet 100 mg PO QHS 12/16/24 Unknown History cephalexin 500 mg capsule 500 mg PO Q6 #40 CAPSULES 03/19/25 Unknown Rx albuterol sulfate 2.5 mg/3 mL 2.5 mg (3 mL) inhalation Q4H PRN 04/11/25 Unknown Rx (0.083 %) solution for nebulization shortness of breath or wheezing #180 mL azelastine 137 mcg (0.1 %) nasal 2 spray intranasal BID #30 mL 04/11/25 Unknown Rx spray ipratropium 0.5 mg-albuterol 3 mg 3 ml inhalation Q6H PRN Shortness 04/11/25 Unknown Rx (2.5 mg base)/3 mL nebulization of breath or wheeze #90 mL soln prednisone 20 mg tablet 60 mg (3 x 20 mg) PO DAILY #12 04/12/25 Unknown Rx TABLETS brexpiprazole 4 mg tablet (Rexulti) 4 mg PO DAILY 04/23/25 Unknown History gabapentin 600 mg tablet 600 mg PO BID 04/23/25 Unknown History lamotrigine 25 mg tablet 50 mg PO DAILY 04/23/25 Unknown History ondansetron 4 mg disintegrating 4 mg PO Q6H PRN nausea and 04/23/25 Unknown Rx tablet vomiting #30 tabs prazosin 1 mg capsule 1 mg PO QHS 04/23/25 Unknown History Allergy/AdvReac Type Severity Reaction Status Date / Time celery Allergy Severe Anaphylaxis Verified 04/25/25 15:02 empagliflozin (From Allergy Intermediate yeast Verified 04/25/25 15:02 Jardiance) infection nitrofurantoin (From Allergy Intermediate rash Verified 04/25/25 15:02 Macrobid) sulfamethoxazole (From Allergy Intermediate intolerance Verified 04/25/25 15:02 Bactrim) trimethoprim (From Bactrim) Allergy Intermediate intolerance Verified 04/25/25 15:02 penicillin V potassium (From Allergy Mild Rash Verified 04/25/25 15:02 Pen-Vee K) adhesive tape (plastic tape) Allergy Rash Verified 04/25/25 15:02 brompheniramine maleate Allergy Shortness Verified 04/25/25 15:02 (From Dimetapp of breath (brompheniramine-PPA)) phenylpropanolamine HCl Allergy Shortness Verified 04/25/25 15:02 (From Dimetapp of breath (brompheniramine-PPA)) amoxicillin trihydrate (From AdvReac Intermediate Diarrhea Verified 04/25/25 15:02 Augmentin) potassium clavulanate (From AdvReac Intermediate Diarrhea Verified 04/25/25 15:02 Augmentin) dicyclomine HCl (From Bentyl) AdvReac Nausea/Vom/ Verified 04/25/25 15:02 Diarrhea fructose AdvReac Nausea/Vom/ Verified 04/25/25 15:02 Diarrhea sertraline (From Zoloft) AdvReac Other Verified 04/25/25 15:02 Family History Father Diabetes Hypertension Mother Hypertension Asthma Grandmother Breast cancer Hypertension Heart disease Grandfather Hypertension Diabetes 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 H/O partial adrenalectomy History of back surgery History of adrenal surgery H/O oophorectomy History of tonsillectomy and adenoidectomy H/O wisdom tooth extraction H/O ovarian cystectomy Hx of cholecystectomy Social History household members: family Smoking Status: Never smoker alcohol intake: current alcohol intake frequency: a few times a month substance use type: marijuana seatbelt use: always do you feel safe at home: Yes ROS ROS ED ROS Narrative Abdominal pain. Nausea, vomiting diarrhea. No dysuria. No fever. Constitutional Constitutional ED: Denies chills or fever(s) ENT ENT ED: Denies ear pain Cardiovascular Cardiovascular: Denies chest pain Respiratory/Chest Respiratory/Chest: Denies cough or dyspnea Gastrointestinal Gastrointestinal: Reports abdominal pain, diarrhea, nausea and vomiting; Denies constipation or melena Genitourinary Genitourinary ED: Denies dysuria or hematuria Musculoskeletal Musculoskeletal: Denies arthralgias Integumentary Denies abscess Neurologic Neurologic: Denies headache(s) Psychiatric Psychiatric: Denies anxiety Endocrine Endocrinology: Denies polydipsia Hematologic/Lymphatic Hematologic/Lymphatic: Denies easy bleeding Allergic/Immunologic Allergic/Immunologic ED: Denies mouth swelling, tongue swelling or urticaria EXAM Physical Exam Narrative Exam Narrative: 29-year-old female sitting upright in bed vital signs stable afebrile. H EENT exam pupils round react light. Moist mucous membranes. Neck nontender. Back nontender. Lungs clear to auscultation bilateral. Heart regular rhythm no murmur. Chest wall ribs nontender. Abdomen tender right lower quadrant only. No rebound guarding rigidity. Also right sided pelvis. Right upper and left side the abdomen is nontender. No hernia or mass. No obstruction. No signs of trauma. Moving all 4 extremities. Nontender. Normal strength. Neurologically she is awake alert. Answering questions following commands. Const Vital Signs: 04/25/25 15:00 04/25/25 17:00 04/25/25 19:00 Temperature 98.2 F Temperature Source Oral Pulse Rate 99 87 87 Respiratory Rate 16 18 Blood Pressure 169/82 H 149/89 H Blood Pressure Mean 111 109 Pulse Ox 97 96 Oxygen Delivery Method Room Air Room Air MDM MDM MDM Narrative Medical decision making narrative: Please [id number] female history of PCOS known right ovarian cyst diagnosed 2 days ago on CAT scan worsening pain. To be treated with IV morphine, Toradol Zofran. Ultrasound to rule out torsion. Labs were done in triage. Repeat CMP is doing well at 7:30 PM. Pains much improved. Again no peritoneal signs. We went over her test results. Her ultrasound shows no signs of torsion. There is a known cyst. She be discharged home. Motrin Tylenol for pain. She does have a care plan. Follow-up with your [employer]. History & Record Review Discussion w/independent historian: Patient Additional record(s) reviewed:: Prior outpatient record, Prior ED visit and Prior labs Lab Data Attestation: I reviewed the patient's lab results. Lab results narrative: CBC shows a white count 18.2. H&H 12 and 40. Platelets 390. Electrolytes show sodium 134. Gap 14. BUN and creatinine of 10 and 0.5. Glucose 297. Liver enzymes unremarkable AST 34. Lipase normal at 31. Membranes to test negative. Urinalysis shows no nitrates. 50-100 white cells 10-25 epithelial cells is contaminated 1+ bacteria. She is having no urinary symptoms. Labs: Laboratory Results - last 24 hr 04/25/25 04/25/25 15:32 16:45 WBC 18.2 H RBC 4.86 Hgb 12.7 Hct 40.6 MCV 83.5 MCH 26.1 L MCHC 31.3 L RDW Std Deviation 44.3 H RDW Coeff of Silvia 14.7 H Plt Count 390 MPV 10.2 Immature Gran % (Auto) 0.700 Neut % (Auto) 75.8 H Lymph % (Auto) 16.0 L [place] % (Auto) 5.7 Eos % (Auto) 1.4 Baso % (Auto) 0.4 Absolute Neuts (auto) 13.8 H Absolute Lymphs (auto) 2.91 Nucleated RBC % 0 Sodium 134 Potassium 4.2 Chloride 101 Carbon Dioxide 19.0 L Anion Gap 14 BUN 10 Creatinine 0.53 L Estim Creat Clear Calc 293.45 H Est GFR (MDRD) Non-Af 130 BUN/Creatinine Ratio 18.6 Glucose 297 H Calcium 9.5 Total Bilirubin 0.37 AST 34 H ALT 30 Alkaline Phosphatase 60 Total Protein 7.1 Albumin 3.7 Globulin 3.4 Albumin/Globulin Ratio 1.1 Lipase 31 Serum , Qual NEGATIVE Urine Color Straw Urine Clarity Sl. Cloudy Urine pH 6.0 Ur Specific [place] 1.020 Urine Protein 15 H Urine Glucose (UA) 1000 H Urine Ketones Negative Urine Occult Blood 25 H Urine Nitrite Negative Urine Bilirubin Negative Urine Urobilinogen Normal Ur Leukocyte Esterase 500 H Urine RBC 0-5 SEEN Urine WBC 50-100 SEEN Ur Squamous Epith Cells 10-25 SEEN Urine Bacteria 1+ Urine Mucus 0 SEEN Urine Yeast 2+ Radiography Diagnostic Testing: Clinical Impression(s) from Imaging Studies Transvaginal US 04/25/25 16:35 IMPRESSION: Left ovary is removed. Right ovary contains a large cyst measuring 5.3 cm. No right ovarian torsion. Debris is noted within the bladder. Reading Location: [facility] Discharge Plan Triage Chief Complaint: Abd Pain ED Provider: Cecilio Cabrera Dx/Rx/DC Orders Clinical Impression: Pelvic pain, Cyst of right ovary Instructions: ED Ovarian Cyst Prescriptions: No Action magnesium oxide 400 mg (241.3 mg magnesium) tablet 400 mg PO QDAY pantoprazole 40 mg tablet,delayed release (DR/EC) 40 mg PO BID insulin aspart U-100 [Novolog FlexPen U-100 Insulin] 100 unit/mL (3 mL) insulin pen subcut Patient Comments: INJECT 20 UNITS SUBCUTANEOUSLY WITH MEALS AND INJECT PER SLIDING SCALE: 1 UNIT FOR EVERY 50 OVER 150 PRE MEAL BLOOD GLUCOSE. MAX 105 UNITS DAILY. ascorbic acid (vitamin C) 500 mg tablet 500 mg PO BID cholecalciferol (vitamin D3) 125 MCG capsule 125 mcg PO DAILY epinephrine 0.3 MG syringe 0.3 mg IM X1 PRN (Reason: Anaphylaxis) Qty: 1 0RF lisinopril 5 mg tablet 5 mg PO DAILY Patient Comments: TAKE 1 TABLET BY MOUTH ONCE DAILY atorvastatin 10 mg tablet 10 mg PO QHS Patient Comments: TAKE 1 TABLET BY MOUTH ONCE DAILY AT BEDTIME FOR CHOLESTEROL norethindrone ac-eth estradiol [Microgestin 1.5/30 (21)] 1.5-30 mg-mcg tablet 1 tab PO DAILY buspirone 15 mg tablet 15 mg PO BID (DME) FreeStyle Guerrero 3 Sensor Device MISCELLANEOUS QWEEK (DME) pen needle, diabetic [BD Evy 2nd Gen Pen Needle] 32 gauge x needle MISCELLANEOUS DAILY insulin glargine [Lantus Solostar U-100 Insulin] 100 unit/mL (3 mL) insulin pen 82 unit subcut DAILY gabapentin 600 mg tablet 600 mg PO BID prazosin 1 mg capsule 1 mg PO QHS lamotrigine 25 mg tablet 50 mg PO DAILY Rexulti 4 mg tablet 4 mg PO DAILY ondansetron 4 mg tablet,disintegrating 4 mg PO Q6H PRN (Reason: nausea and vomiting) Qty: 30 0RF prazosin 2 mg capsule 2 mg PO QHS trazodone 100 mg tablet 100 mg PO QHS Rx Instructions: One tablet in AM and 2 tabs at HS metoprolol succinate 50 mg tablet extended release 24 hr 75 mg PO DAILY metformin 500 mg tablet extended release 24 hr 2,000 mg PO QHS lamotrigine 100 mg tablet 100 mg PO QHS fenofibrate nanocrystallized 48 mg tablet 48 mg PO DAILY Slow Release Iron 140 mg (45 mg iron) tablet extended release 140 mg PO BID hydrocortisone acetate [Anusol-HC] 25 mg suppository 25 mg IN BID 6 Days Qty: 12 0RF cephalexin 500 mg capsule 500 mg PO Q6 Qty: 40 0RF albuterol sulfate 2.5 mg /3 mL (0.083 %) solution for nebulization 2.5 mg inhalation Q4H PRN (Reason: shortness of breath or wheezing) Qty: 180 0RF ipratropium-albuterol 0.5 mg-3 mg(2.5 mg base)/3 mL solution for nebulization 3 ml inhalation Q6H PRN (Reason: Shortness of breath or wheeze) Qty: 90 0RF azelastine 137 mcg (0.1 %) spray,non-aerosol 2 spray intranasal BID Qty: 30 0RF Rx Instructions: administer into each nostril prednisone 20 mg tablet 60 mg PO DAILY Qty: 12 0RF Creon 36,000-114,000- 180,000 unit capsule,delayed release(DR/EC) 2 cap PO TID Qty: 300 11RF Rx Instructions: administer 3 capsules with meals and 1 capsule with snacks. Primary Care Provider: Miguelito Unger Referrals: Miguelito Unger MD [Primary Care Provider, Family Practice] - As Needed Print Language: Chadian
[2025-04-25] MEDS: Ketorolac 30 MG/ML Syringe IV (16:50)
[2025-04-25 17:00] VITALS: PULSE 87; RESP 18; O2SAT 96
[2025-04-25 17:00] LABS: Mucous, Urine 0 SEEN /hpf (<or=2+)
[2025-04-25 17:09] LABS: Color, Urine Straw (Yellow); Glucose, Dipstick 1000 mg/dl (Normal); Ketone-Dipstick Negative (Negative); Leukocyte Esterase-Dipstick 500 /ul (Negative); Nitrite-Dipstick Negative (Negative); Occult Blood-Urine 25 /ul (Negative); Protein-Dipstick 15 mg/dl (Negative); Specific Gravity, Urine 1.020 (1.002-1.030); Urine Bilirubin Dipstick Negative (Negative)
[2025-04-25 17:25] LABS: Red Blood Cells-Urine 0-5 SEEN /hpf (0-5)
[2025-04-25 17:26] LABS: Squamous Epithelial Cells - UA 10-25 SEEN /hpf (5-10); Yeast-Urine 2+ /hpf (None Seen)
[2025-04-25 19:00] VITALS: BP 149/89; PULSE 87
[2025-04-25 19:37] VITALS: BP 149/89; PULSE 87; RESP 18; TEMP 36.8; O2SAT 96
== END 2025-04-25 19:43 | disposition home or self-care (01) ==
PROVIDERS: Emergency Provider Emergency Medicine; PCP Family Medicine; Visit Provider Emergency Medicine
DX: R10.20 Pelvic and perineal pain unspecified side (principal); E11.9 Type 2 diabetes mellitus without complications; R10.A0 Flank pain, unspecified side; Z90.49 Acquired absence of other specified parts of digestive tract; K21.9 Gastro-esophageal reflux disease without esophagitis; J45.909 Unspecified asthma, uncomplicated; Z79.899 Other long term (current) drug therapy; N83.201 Unspecified ovarian cyst, right side; R10.31 Right lower quadrant pain
CPT/HCPCS: 76830; 80053; 81001; 83690; 84703; 85025; 96374; 96375; 99283; A4216; J2405

== ENCOUNTER → 2025-05-19 | Outpatient (CLI) | payer MEDICARE, MEDICAID, SELFPAY ==
--- NOTE | 2025-05-19 07:41 | ECHOD_ITS ---
Reason For Study Reason For Study: PALPITAIONS Procedure This was a 2D Doppler, Color Flow transthoracic echocardiogram. The study was technically difficult. Exam performed in department. Left Ventricle Mild concentric left ventricular hypertrophy. Normal left ventricle. Mild global left ventricular systolic dysfunction. The left ventricular ejection fraction is 50 %. Right Ventricle Normal RV size. Normal systolic function. Atria The left and right atria are normal. Normal right atrium. Mitral Valve Normal mitral valve. Tricuspid Valve Normal tricuspid valve. Aortic Valve The aortic valve is not well visualized in the short axis view. There is no aortic stenosis. Pulmonic Valve Normal pulmonic valve. Great Vessels Normal sized aortic root. Pericardium/Pleural No pericardial effusion. MMode/2D Measurements & Calculations LVIDd: 5.4 cm IVSd: 1.1 cm LAV(MOD- bp): 42.7 ml LVIDs: 4.0 cm LVPWd: 1.1 cm LAV(MOD- bp) Indexed: 15.0 ml/m2 FS: 27.0 % LAV(MOD- sp2): 32.2 ml LAV(MOD- sp4): 50.6 ml LA dimension(2D): 4.9 cm LA A4 area: 18.1 cm2 RA A4 area: 10.5 cm2 Time Measurements MV dec time: 0.10 sec Doppler Measurements & Calculations MV E max justin: 115.2 cm/sec Lat Peak E' Justin: 10.5 cm/sec Med Peak E' Justin: 14.3 cm/sec MV A max justin: 70.8 cm/sec E/E' lat: 11.0 E/E' med: 8.0 MV E/A: 1.6 MV dec slope: 1116 cm/sec2 Ao V2 max: 161.8 cm/sec LV V1 max: 105.5 cm/sec Ao max P.5 mmHg LV V1 max P.5 mmHg Ao V2 mean: 112.0 cm/sec LV V1 mean P.2 mmHg Ao mean P.7 mmHg LV V1 mean: 63.3 cm/sec Ao V2 VTI: 32.9 cm LV V1 VTI: 21.0 cm AV (velocity ratio): 0.64 PA V2 max: 128.3 cm/sec PA V2 mean: 86.4 cm/sec ECHO/Echo Complete Interpretation Summary The left ventricular ejection fraction is 50 %. Structually normal valves. Mild concentric left ventricular hypertrophy. Mild global left ventricular systolic dysfunction. Normal left ventricle. The study was technically difficult. Ordering Physician: Jose Ramon^Flavio^^^ Referring Physician: Flavio Albright Performed By: Tiara Ortega RCS
== END | disposition home or self-care (01) ==
LOC: CVS 07:40
PROVIDERS: PCP Family Medicine; Referring Provider Internal Medicine Cardiovascular Disease; Visit Provider Internal Medicine Cardiovascular Disease
DX: R07.89 Other chest pain (principal); G47.30 Sleep apnea, unspecified
CPT/HCPCS: 93306

== ENCOUNTER 2025-05-24 16:22 | Emergency (ER) | payer MEDICARE, MEDICAID, SELFPAY ==
[2025-05-24 16:24] VITALS: BP 166/96; PULSE 95; RESP 18; TEMP 37.4; O2SAT 97
[2025-05-24 16:26] VITALS: BP 166/96; PULSE 95; RESP 18; TEMP 37.4; O2SAT 97
[2025-05-24 19:04] VITALS: BMI 67.7
[2025-05-24] MEDS: HYDROcodone Bitartrate/Apap 5/325 Tablet PO (19:05)
[2025-05-24 19:06] VITALS: BP 147/83; PULSE 97; RESP 18; O2SAT 98
--- NOTE | 2025-05-24 19:23 | ED.VIS.DENTA ---
HPI History of Present Illness Chief Complaint: Dental Detail of Chief Complaint: Abscess and irreversible pulpitis tooth #8 Informant: patient Onset/Context/Timing Onset: Days Context: Sudden Onset Timing: Continuous Quality: Pain Location: Tooth #8 Current Severity: Mild Maximum Severity: Severe Worsened by: Hot liquids Relieved by: NSAIDs and Topicals Associated Symptoms Assocated Symptom - Dental: face swelling and hot sensitivity; Negative for fever, jaw swelling or cold sensitivity Narrative Narrative: Patient is a 29-year-old female with dental pain due to irreversible pulpitis and abscess of tooth #8. She is presently on clindamycin 100 mg 4 times daily. She is allergic penicillin. She was not prescribed any pain medicine. She was referred to an business systems technician. The business systems technician apparently does not take her insurance. She is not able to be seen by anyone until November. She denies rheumatic fever, heart murmur, SBE. She has had temperature up to 103. She denies any visual or ocular symptoms. She denies any rhinorrhea, congestion postnasal drainage. She denies trismus. Does have dental pain. She has no other complaints. Prior similar symptoms: Yes Recent Illness/Hospitalization: Yes [facility] Medical History Panic attacks Palpitations Tachycardia Vitamin D deficiency Exocrine pancreatic insufficiency Renal colic Kidney stone on right side Morbid obesity with BMI of 60.0-69.9, adult Osteoporosis GERD (gastroesophageal reflux disease) CPAP (continuous positive airway pressure) dependence Sleep apnea Proteinuria due to type 2 diabetes mellitus Hypertriglyceridemia Diabetes Anxiety disorder, unspecified ADHD Bipolar 1 disorder Facial paresthesia Cancer Depression Arthritis Injury of back Injury of head and neck History of irregular heartbeat Chronic low back pain with sciatica RAD (reactive airway disease) Chest pain of uncertain etiology Lumbar degenerative disc disease Abner disease Ovarian cyst Asthma PCOS (polycystic ovarian syndrome) Paratubal cyst Home Medications ?Medication ?Instructions ?Recorded ?Last Taken ?Type cholecalciferol (vitamin D3) 125 125 mcg PO DAILY supplement 05/17/19 01/24/21 08:00 History mcg (5,000 unit) capsule epinephrine 0.3 mg/0.3 mL 0.3 mg (0.3 mL) IM X1 PRN 05/14/20 01/30/21 08:00 Rx injection, auto-injector Anaphylaxis #1 syringe lisinopril 5 mg tablet 5 mg PO DAILY 01/25/21 01/30/21 08:00 History atorvastatin 10 mg tablet 10 mg PO QHS 08/07/22 Unknown History prazosin 2 mg capsule 2 mg PO QHS 01/05/24 Unknown History fenofibrate nanocrystallized 48 mg 48 mg PO DAILY 05/21/24 Unknown History tablet lamotrigine 100 mg tablet 100 mg PO QHS 05/21/24 Unknown History metformin 500 mg tablet,extended 2,000 mg PO QHS DM 05/21/24 09/14/24 History release 24 hr blood-glucose sensor (FreeStyle 09/10/24 Unknown History Guerrero 3 Sensor device) buspirone 15 mg tablet 15 mg PO BID 09/10/24 Unknown History norethindrone acetate 1.5 1 tab PO DAILY 09/10/24 Unknown History mg-ethinyl estradiol 30 mcg tablet (Microgestin) pen needle, diabetic 32 gauge x 09/10/24 Unknown History (BD Evy 2nd Gen Pen Needle) hydrocortisone acetate 25 mg 25 mg NV BID 6 days #12 ea 11/02/24 Unknown Rx rectal suppository (Anusol-HC) [id number] 2 cap PO TID EPI #300 caps 11/18/24 Unknown Rx (pork)36,000-114,000-180k unit capsule,del rel (Creon) ascorbic acid (vitamin C) 500 mg 500 mg PO BID 12/16/24 Unknown History tablet ferrous sulfate 140 mg (45 mg 140 mg PO BID 12/16/24 Unknown History iron) tablet,extended release (Slow Release Iron) insulin aspart U-100 100 unit/mL subcut 12/16/24 Unknown History (3 mL) subcutaneous pen (Novolog FlexPen U-100 Insulin aspart) insulin glargine 100 unit/mL (3 82 unit subcut DAILY 12/16/24 Unknown History mL) subcutaneous pen (Lantus Solostar U-100 Insulin) magnesium oxide 400 mg (241.3 mg 400 mg PO QDAY 12/16/24 Unknown History magnesium) tablet pantoprazole 40 mg tablet,delayed 40 mg PO BID 12/16/24 Unknown History release trazodone 100 mg tablet 100 mg PO QHS 12/16/24 Unknown History cephalexin 500 mg capsule 500 mg PO Q6 #40 CAPSULES 03/19/25 Unknown Rx albuterol sulfate 2.5 mg/3 mL 2.5 mg (3 mL) inhalation Q4H PRN 04/11/25 Unknown Rx (0.083 %) solution for nebulization shortness of breath or wheezing #180 mL azelastine 137 mcg (0.1 %) nasal 2 spray intranasal BID #30 mL 04/11/25 Unknown Rx spray ipratropium 0.5 mg-albuterol 3 mg 3 ml inhalation Q6H PRN Shortness 04/11/25 Unknown Rx (2.5 mg base)/3 mL nebulization of breath or wheeze #90 mL soln prednisone 20 mg tablet 60 mg (3 x 20 mg) PO DAILY #12 04/12/25 Unknown Rx TABLETS brexpiprazole 4 mg tablet (Rexulti) 4 mg PO DAILY 04/23/25 Unknown History gabapentin 600 mg tablet 600 mg PO BID 04/23/25 Unknown History lamotrigine 25 mg tablet 50 mg PO DAILY 04/23/25 Unknown History ondansetron 4 mg disintegrating 4 mg PO Q6H PRN nausea and 04/23/25 Unknown Rx tablet vomiting #30 tabs prazosin 1 mg capsule 1 mg PO QHS 04/23/25 Unknown History metoprolol succinate 100 mg 100 mg PO QDAY #90 tabs 04/28/25 Unknown Rx tablet,extended release 24 hr (Toprol XL) clindamycin HCl 300 mg capsule 300 mg PO Q6H #28 CAPSULES 05/24/25 Unknown Rx (Cleocin HCl) hydrocodone-acetaminophen 5-325mg 1 tab PO Q6H PRN PRN Pain 3 days 05/24/25 Unknown Rx 5mg-325mg #10 TABLETS Allergy/AdvReac Type Severity Reaction Status Date / Time celery Allergy Severe Anaphylaxis Verified 05/24/25 16:25 empagliflozin (From Allergy Intermediate yeast Verified 05/24/25 16:25 Jardiance) infection nitrofurantoin (From Allergy Intermediate rash Verified 05/24/25 16:25 Macrobid) sulfamethoxazole (From Allergy Intermediate intolerance Verified 05/24/25 16:25 Bactrim) trimethoprim (From Bactrim) Allergy Intermediate intolerance Verified 05/24/25 16:25 penicillin V potassium (From Allergy Mild Rash Verified 05/24/25 16:25 Pen-Vee K) adhesive tape (plastic tape) Allergy Rash Verified 05/24/25 16:25 brompheniramine maleate Allergy Shortness Verified 05/24/25 16:25 (From Dimetapp of breath (brompheniramine-PPA)) phenylpropanolamine HCl Allergy Shortness Verified 05/24/25 16:25 (From Dimetapp of breath (brompheniramine-PPA)) amoxicillin trihydrate (From AdvReac Intermediate Diarrhea Verified 05/24/25 16:25 Augmentin) potassium clavulanate (From AdvReac Intermediate Diarrhea Verified 05/24/25 16:25 Augmentin) dicyclomine HCl (From Bentyl) AdvReac Nausea/Vom/ Verified 05/24/25 16:25 Diarrhea fructose AdvReac Nausea/Vom/ Verified 05/24/25 16:25 Diarrhea sertraline (From Zoloft) AdvReac Other Verified 05/24/25 16:25 Family History Father Diabetes Hypertension Mother Hypertension Asthma Grandmother Breast cancer Hypertension Heart disease Grandfather Hypertension Diabetes 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 H/O partial adrenalectomy History of back surgery History of adrenal surgery H/O oophorectomy History of tonsillectomy and adenoidectomy H/O wisdom tooth extraction H/O ovarian cystectomy Hx of cholecystectomy Social History household members: family Smoking Status: Never smoker alcohol intake: current alcohol intake frequency: a few times a month substance use type: marijuana seatbelt use: always do you feel safe at home: Yes ROS ROS ED Constitutional Constitutional ED: Reports chills and fever(s); Denies subjective Eyes Eyes: Denies blurry vision or change in vision ENT ENT ED: Denies ear pain, rhinorrhea or sore throat Cardiovascular Cardiovascular: Denies chest pain or palpitations Respiratory/Chest Respiratory/Chest: Denies cough, dyspnea or dyspnea on exertion Gastrointestinal Gastrointestinal: Denies nausea or vomiting Integumentary Denies rash Hematologic/Lymphatic Hematologic/Lymphatic: Denies easy bleeding or easy bruising EXAM Physical Exam Const Vital Signs: 05/24/25 16:24 05/24/25 16:26 05/24/25 19:06 Temperature 99.4 F H 99.4 F H Temperature Source Oral Oral Pulse Rate 95 95 97 Respiratory Rate 18 18 18 Blood Pressure 166/96 H 166/96 H 147/83 H Blood Pressure Mean 119 119 104 Pulse Ox 97 97 98 Oxygen Delivery Method Room Air Room Air Room Air Positive well nourished and well developed General Appearance ED: well developed and NAD HEENT Denies other HEENT Narrative: Patient has poor dentition. Patient has evidence of gingivitis of periodontal disease. Patient has no evidence of facial cellulitis. There is no trismus. There is no evidence of a periodontal abscess or fistulization of an apical abscess. Teeth are not malaligned. She does have evidence of cavities. Negative for trauma, tenderness or other Teeth and Gingiva: abnormal tooth and associated gingiva, caries, poor dentition and teeth discoloration Throat: posterior oropharynx normal Eyes PERRL and EOMs intact bilaterally General Eye ED: Negative for pale conjunctiva or scleral icterus Neck no lymphadenopathy, supple and no JVD Lymph Lymphatic: no lymphadenopathy noted Resp normal respiratory effort and clear to auscultation bilaterally Cardio regular rate, regular rhythm, S1 normal heart sound and no murmurs Extremity normal to inspection Neuro oriented x3 and CN's II-XII intact bilaterally Psych mental status grossly normal Skin no rashes or lesions noted and no wounds MDM MDM MDM Narrative Medical decision making narrative: Patient with irreversible pulpitis. Will prescribe opiate analgesia. She is given a prescription for clindamycin 300 mg and she was improperly dosed. She was told to take 2 clindamycin tablets every 6 hours. Since she had imaging at the dentist office is no indication for imaging here or laboratory work. Discharge Plan Triage Chief Complaint: Dental ED Provider: Ehsan Campbell Dx/Rx/DC Orders Clinical Impression: Abscess, apical, Symptomatic irreversible pulpitis, GERD (gastroesophageal reflux disease), Sleep apnea, PCOS (polycystic ovarian syndrome) Instructions: ED Dental Abscess Prescriptions: New hydrocodone-acetaminophen 5-325 mg tablet 1 tab PO Q6H PRN PRN (Reason: Pain) 3 Days Qty: 10 0RF clindamycin HCl [Cleocin HCl] 300 mg capsule 300 mg PO Q6H Qty: 28 0RF No Action magnesium oxide 400 mg (241.3 mg magnesium) tablet 400 mg PO QDAY pantoprazole 40 mg tablet,delayed release (DR/EC) 40 mg PO BID insulin aspart U-100 [Novolog FlexPen U-100 Insulin] 100 unit/mL (3 mL) insulin pen subcut Patient Comments: INJECT 20 UNITS SUBCUTANEOUSLY WITH MEALS AND INJECT PER SLIDING SCALE: 1 UNIT FOR EVERY 50 OVER 150 PRE MEAL BLOOD GLUCOSE. MAX 105 UNITS DAILY. ascorbic acid (vitamin C) 500 mg tablet 500 mg PO BID cholecalciferol (vitamin D3) 125 MCG capsule 125 mcg PO DAILY epinephrine 0.3 MG syringe 0.3 mg IM X1 PRN (Reason: Anaphylaxis) Qty: 1 0RF lisinopril 5 mg tablet 5 mg PO DAILY Patient Comments: TAKE 1 TABLET BY MOUTH ONCE DAILY atorvastatin 10 mg tablet 10 mg PO QHS Patient Comments: TAKE 1 TABLET BY MOUTH ONCE DAILY AT BEDTIME FOR CHOLESTEROL norethindrone ac-eth estradiol [Microgestin 1.5 (21)] 1.5-30 mg-mcg tablet 1 tab PO DAILY buspirone 15 mg tablet 15 mg PO BID (DME) FreeStyle Guerrero 3 Sensor Device MISCELLANEOUS QWEEK (DME) pen needle, diabetic [BD Evy 2nd Gen Pen Needle] 32 gauge x 5/32 needle MISCELLANEOUS DAILY insulin glargine [Lantus Solostar U-100 Insulin] 100 unit/mL (3 mL) insulin pen 82 unit subcut DAILY gabapentin 600 mg tablet 600 mg PO BID prazosin 1 mg capsule 1 mg PO QHS lamotrigine 25 mg tablet 50 mg PO DAILY Rexulti 4 mg tablet 4 mg PO DAILY ondansetron 4 mg tablet,disintegrating 4 mg PO Q6H PRN (Reason: nausea and vomiting) Qty: 30 0RF prazosin 2 mg capsule 2 mg PO QHS trazodone 100 mg tablet 100 mg PO QHS Rx Instructions: One tablet in AM and 2 tabs at HS metformin 500 mg tablet extended release 24 hr 2,000 mg PO QHS lamotrigine 100 mg tablet 100 mg PO QHS fenofibrate nanocrystallized 48 mg tablet 48 mg PO DAILY Slow Release Iron 140 mg (45 mg iron) tablet extended release 140 mg PO BID hydrocortisone acetate [Anusol-HC] 25 mg suppository 25 mg NV BID 6 Days Qty: 12 0RF cephalexin 500 mg capsule 500 mg PO Q6 Qty: 40 0RF albuterol sulfate 2.5 mg /3 mL (0.083 %) solution for nebulization 2.5 mg inhalation Q4H PRN (Reason: shortness of breath or wheezing) Qty: 180 0RF ipratropium-albuterol 0.5 mg-3 mg(2.5 mg base)/3 mL solution for nebulization 3 ml inhalation Q6H PRN (Reason: Shortness of breath or wheeze) Qty: 90 0RF azelastine 137 mcg (0.1 %) spray,non-aerosol 2 spray intranasal BID Qty: 30 0RF Rx Instructions: administer into each nostril prednisone 20 mg tablet 60 mg PO DAILY Qty: 12 0RF Creon 36,000-114,000- 180,000 unit capsule,delayed release(DR/EC) 2 cap PO TID Qty: 300 11RF Rx Instructions: administer 3 capsules with meals and 1 capsule with snacks. metoprolol succinate [Toprol XL] 100 mg tablet extended release 24 hr 100 mg PO QDAY Qty: 90 3RF Primary Care Provider: Miguelito Unger Referrals: Miguelito Unger MD [Primary Care Provider, Family Practice] Activity Restrictions/Additional Instructions: Take 2 of the 150 mg clindamycin tablets 4 times a day. You need to contact the dentist. You need root canal otherwise you will have pain until you have root canal. Print Language: Burmese Disposition Disposition: Home, Self Care
[2025-05-24 19:46] VITALS: BP 147/83; PULSE 97; RESP 18; TEMP 37.4; O2SAT 98
--- NOTE | 2025-05-24 20:48 | CM.ED ---
Social Work SW met with patient and patients mother. Patient states that she has a root canal scheduled but not until November. SW gave patient a list of local dentists including oral surgeons. Patient appreciative of same. Dedra Restrepo, DIGITAL MARKETING STRATEGIST, PLUNGER MACHINE OPERATOR
== END 2025-05-24 20:29 | disposition home or self-care (01) ==
PROVIDERS: Emergency Provider Emergency Medicine; PCP Family Medicine; Visit Provider Emergency Medicine
DX: E11.638 Type 2 diabetes mellitus with other oral complications (principal); Z79.4 Long term (current) use of insulin; K21.9 Gastro-esophageal reflux disease without esophagitis; Z83.3 Family history of diabetes mellitus; E28.2 Polycystic ovarian syndrome; G47.30 Sleep apnea, unspecified; K04.02 Irreversible pulpitis; K04.7 Periapical abscess without sinus; Z99.89 Dependence on other enabling machines and devices; Z90.49 Acquired absence of other specified parts of digestive tract; F12.90 Cannabis use, unspecified, uncomplicated
CPT/HCPCS: 99282

== ENCOUNTER 2025-05-26 12:45 | Emergency (ER) | payer MEDICARE, MEDICAID, SELFPAY ==
[2025-05-26 12:45] VITALS: BP 141/105; PULSE 108; RESP 18; TEMP 37.3; O2SAT 94
[2025-05-26 13:02] VITALS: BP 159/84; PULSE 99; RESP 16; TEMP 37.1; O2SAT 97; BMI 66.2
--- NOTE | 2025-05-26 14:00 | EX.ED.DYSGE1 ---
HPI History of Present Illness Chief Complaint: Dental Narrative Narrative: Pt is a 29-year-old female who is presenting to the ER today with chief complaint of chronic dental pain. Patient has a draining periapical abscess currently. Patient was seen at urgent care, and was sent to the ER for minimal facial swelling on the right. Patient has no fever. Patient does have active drainage of a small periapical abscess above tooth #8. Patient is currently on antibiotics. Patient was seen in the ER here several days ago and prescribed antibiotics and pain medication. Patient could not get into her dentist today. Patient knows that she needs a root canal and it cannot be done until November. Patient was given a dental list when she was in the ER. Patient has no nausea, vomiting, mother at bedside, no other acute complaints. REVIEW OF SYSTEMS: Unless otherwise stated in this report the patient's positive and negative responses for review of systems for constitutional, eyes, ENT, cardiovascular, respiratory, gastrointestinal, neurological, , musculoskeletal, and integument systems and related systems to the presenting problem are either stated in the history of present illness or were not pertinent or were negative for the symptoms and/or complaints related to the presenting medical problem. Nurse's notes and vital signs reviewed. The patient is not hypoxic. Vital signs reviewed and patient is not hypoxic. Nurses notes reviewed and patient is noted to be non-hypoxic. General: The patient is comfortable, alert and oriented x3, well appearing, non toxic in no apparent distress. Head: Atraumatic and normocephalic. Eyes: Normal conjunctiva ENT: The oropharynx is normal. No pharyngeal erythema, uvular edema, tonsillar exudates, asymmetry or trismus. Uvula is midline. Mouth is normal to inspection With the exception of a pain on percussion of the tooth #8 and evidence of multiple areas of dental caries. There is minimal right sided facial asymmetry of inflammation, there is no palpable abscess in her right cheek or abscess formation. Floor of the mouth is soft. No tenderness in the submental or submandibular space. No tongue elevation or deviation. The patient has evidence of periapical abscess above tooth #8, no significant gingivitis, ANUG or other acute pathology. Airway is patent. Neck: The neck demonstrates normal range of motion. No meningeals signs are present. No stridor. No masses or lymphandenopathy noted. Respiratory: No acute distress, lungs are clear to auscultation, no wheezing, rhonchi, or rales noted. No stridor or retractions are noted. Cardiovascular: Regular rate and rhythm Skin: The skin exam shows no evidence of rashes Neuro: Alert and oriented x4, normal speech Lymphatic: No cervical lymphadenopathy [facility] Medical History Panic attacks Palpitations Tachycardia Vitamin D deficiency Exocrine pancreatic insufficiency Renal colic Kidney stone on right side Morbid obesity with BMI of 60.0-69.9, adult Osteoporosis GERD (gastroesophageal reflux disease) CPAP (continuous positive airway pressure) dependence Sleep apnea Proteinuria due to type 2 diabetes mellitus Hypertriglyceridemia Diabetes Anxiety disorder, unspecified ADHD Bipolar 1 disorder Facial paresthesia Cancer Depression Arthritis Injury of back Injury of head and neck History of irregular heartbeat Chronic low back pain with sciatica RAD (reactive airway disease) Chest pain of uncertain etiology Lumbar degenerative disc disease Abner disease Ovarian cyst Asthma PCOS (polycystic ovarian syndrome) Paratubal cyst Home Medications ?Medication ?Instructions ?Recorded ?Last Taken ?Type cholecalciferol (vitamin D3) 125 125 mcg PO DAILY supplement 05/17/19 01/24/21 08:00 History mcg (5,000 unit) capsule epinephrine 0.3 mg/0.3 mL 0.3 mg (0.3 mL) IM X1 PRN 05/14/20 01/30/21 08:00 Rx injection, auto-injector Anaphylaxis #1 syringe lisinopril 5 mg tablet 5 mg PO DAILY 01/25/21 01/30/21 08:00 History atorvastatin 10 mg tablet 10 mg PO QHS 08/07/22 Unknown History prazosin 2 mg capsule 2 mg PO QHS 01/05/24 Unknown History fenofibrate nanocrystallized 48 mg 48 mg PO DAILY 05/21/24 Unknown History tablet lamotrigine 100 mg tablet 100 mg PO QHS 05/21/24 Unknown History metformin 500 mg tablet,extended 2,000 mg PO QHS DM 05/21/24 09/14/24 History release 24 hr blood-glucose sensor (FreeStyle 09/10/24 Unknown History Guerrero 3 Sensor device) buspirone 15 mg tablet 15 mg PO BID 09/10/24 Unknown History norethindrone acetate 1.5 1 tab PO DAILY 09/10/24 Unknown History mg-ethinyl estradiol 30 mcg tablet (Microgestin) pen needle, diabetic 32 gauge x 09/10/24 Unknown History (BD Evy 2nd Gen Pen Needle) hydrocortisone acetate 25 mg 25 mg SC BID 6 days #12 ea 11/02/24 Unknown Rx rectal suppository (Anusol-HC) [id number] 2 cap PO TID EPI #300 caps 11/18/24 Unknown Rx (pork)36,000-114,000-180k unit capsule,del rel (Creon) ascorbic acid (vitamin C) 500 mg 500 mg PO BID 12/16/24 Unknown History tablet ferrous sulfate 140 mg (45 mg 140 mg PO BID 12/16/24 Unknown History iron) tablet,extended release (Slow Release Iron) insulin aspart U-100 100 unit/mL subcut 12/16/24 Unknown History (3 mL) subcutaneous pen (Novolog FlexPen U-100 Insulin aspart) insulin glargine 100 unit/mL (3 82 unit subcut DAILY 12/16/24 Unknown History mL) subcutaneous pen (Lantus Solostar U-100 Insulin) magnesium oxide 400 mg (241.3 mg 400 mg PO QDAY 12/16/24 Unknown History magnesium) tablet pantoprazole 40 mg tablet,delayed 40 mg PO BID 12/16/24 Unknown History release trazodone 100 mg tablet 100 mg PO QHS 12/16/24 Unknown History cephalexin 500 mg capsule 500 mg PO Q6 #40 CAPSULES 03/19/25 Unknown Rx albuterol sulfate 2.5 mg/3 mL 2.5 mg (3 mL) inhalation Q4H PRN 04/11/25 Unknown Rx (0.083 %) solution for nebulization shortness of breath or wheezing #180 mL azelastine 137 mcg (0.1 %) nasal 2 spray intranasal BID #30 mL 04/11/25 Unknown Rx spray ipratropium 0.5 mg-albuterol 3 mg 3 ml inhalation Q6H PRN Shortness 04/11/25 Unknown Rx (2.5 mg base)/3 mL nebulization of breath or wheeze #90 mL soln prednisone 20 mg tablet 60 mg (3 x 20 mg) PO DAILY #12 04/12/25 Unknown Rx TABLETS brexpiprazole 4 mg tablet (Rexulti) 4 mg PO DAILY 04/23/25 Unknown History gabapentin 600 mg tablet 600 mg PO BID 04/23/25 Unknown History lamotrigine 25 mg tablet 50 mg PO DAILY 04/23/25 Unknown History ondansetron 4 mg disintegrating 4 mg PO Q6H PRN nausea and 04/23/25 Unknown Rx tablet vomiting #30 tabs prazosin 1 mg capsule 1 mg PO QHS 04/23/25 Unknown History metoprolol succinate 100 mg 100 mg PO QDAY #90 tabs 04/28/25 Unknown Rx tablet,extended release 24 hr (Toprol XL) clindamycin HCl 300 mg capsule 300 mg PO Q6H #28 CAPSULES 05/24/25 Unknown Rx (Cleocin HCl) hydrocodone-acetaminophen 5-325mg 1 tab PO Q6H PRN PRN Pain 3 days 05/24/25 Unknown Rx 5mg-325mg #10 TABLETS Allergy/AdvReac Type Severity Reaction Status Date / Time celery Allergy Severe Anaphylaxis Verified 05/26/25 12:46 empagliflozin (From Allergy Intermediate yeast Verified 05/26/25 12:46 Jardiance) infection nitrofurantoin (From Allergy Intermediate rash Verified 05/26/25 12:46 Macrobid) sulfamethoxazole (From Allergy Intermediate intolerance Verified 05/26/25 12:46 Bactrim) trimethoprim (From Bactrim) Allergy Intermediate intolerance Verified 05/26/25 12:46 penicillin V potassium (From Allergy Mild Rash Verified 05/26/25 12:46 Pen-Vee K) adhesive tape (plastic tape) Allergy Rash Verified 05/26/25 12:46 brompheniramine maleate Allergy Shortness Verified 05/26/25 12:46 (From Dimetapp of breath (brompheniramine-PPA)) phenylpropanolamine HCl Allergy Shortness Verified 05/26/25 12:46 (From Dimetapp of breath (brompheniramine-PPA)) amoxicillin trihydrate (From AdvReac Intermediate Diarrhea Verified 05/26/25 12:46 Augmentin) potassium clavulanate (From AdvReac Intermediate Diarrhea Verified 05/26/25 12:46 Augmentin) dicyclomine HCl (From Bentyl) AdvReac Nausea/Vom/ Verified 05/26/25 12:46 Diarrhea fructose AdvReac Nausea/Vom/ Verified 05/26/25 12:46 Diarrhea sertraline (From Zoloft) AdvReac Other Verified 05/26/25 12:46 Family History Father Diabetes Hypertension Mother Hypertension Asthma Grandmother Breast cancer Hypertension Heart disease Grandfather Hypertension Diabetes 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 H/O partial adrenalectomy History of back surgery History of adrenal surgery H/O oophorectomy History of tonsillectomy and adenoidectomy H/O wisdom tooth extraction H/O ovarian cystectomy Hx of cholecystectomy Social History household members: family Smoking Status: Never smoker alcohol intake: current alcohol intake frequency: a few times a month substance use type: marijuana seatbelt use: always do you feel safe at home: Yes EXAM Physical Exam Const Vital Signs: 05/26/25 12:45 05/26/25 13:02 Temperature 99.1 F 98.8 F Temperature Source Oral Oral Pulse Rate 108 H 99 Respiratory Rate 18 16 Blood Pressure 141/105 H 159/84 H Blood Pressure Mean 117 109 Pulse Ox 94 97 Oxygen Delivery Method Room Air Room Air MDM MDM MDM Narrative Medical decision making narrative: Patient has no facial abscess, she has mild facial swelling to the right cheek. Patient is actively draining maroonish foul taste/smell pus minimal coming from a periapical abscess above tooth #8. It is actively draining, does not have to have incision and drainage. Patient will continue antibiotic. Education on pain management and using ice. Patient has a dental list at home. Patient was given education on aspirin and [facility] as well. No question at discharge Discharge Plan Triage Chief Complaint: Dental ED Provider: Miguelito Das Dx/Rx/DC Orders Clinical Impression: Dental abscess, Abscess, apical, Atypical face pain, Dental caries Instructions: Stages of Periodontal Disease, Medicine for Pain, Understanding Tooth Decay, ED Abscess Antibiotic Treatment Only, ED Tooth Abscess Prescriptions: No Action magnesium oxide 400 mg (241.3 mg magnesium) tablet 400 mg PO QDAY pantoprazole 40 mg tablet,delayed release (DR/EC) 40 mg PO BID insulin aspart U-100 [Novolog FlexPen U-100 Insulin] 100 unit/mL (3 mL) insulin pen subcut Patient Comments: INJECT 20 UNITS SUBCUTANEOUSLY WITH MEALS AND INJECT PER SLIDING SCALE: 1 UNIT FOR EVERY 50 OVER 150 PRE MEAL BLOOD GLUCOSE. MAX 105 UNITS DAILY. ascorbic acid (vitamin C) 500 mg tablet 500 mg PO BID cholecalciferol (vitamin D3) 125 MCG capsule 125 mcg PO DAILY epinephrine 0.3 MG syringe 0.3 mg IM X1 PRN (Reason: Anaphylaxis) Qty: 1 0RF lisinopril 5 mg tablet 5 mg PO DAILY Patient Comments: TAKE 1 TABLET BY MOUTH ONCE DAILY atorvastatin 10 mg tablet 10 mg PO QHS Patient Comments: TAKE 1 TABLET BY MOUTH ONCE DAILY AT BEDTIME FOR CHOLESTEROL norethindrone ac-eth estradiol [Microgestin 1.5/30 (21)] 1.5-30 mg-mcg tablet 1 tab PO DAILY buspirone 15 mg tablet 15 mg PO BID (DME) FreeStyle Guerrero 3 Sensor Device MISCELLANEOUS QWEEK (DME) pen needle, diabetic [BD Evy 2nd Gen Pen Needle] 32 gauge x needle MISCELLANEOUS DAILY insulin glargine [Lantus Solostar U-100 Insulin] 100 unit/mL (3 mL) insulin pen 82 unit subcut DAILY gabapentin 600 mg tablet 600 mg PO BID prazosin 1 mg capsule 1 mg PO QHS lamotrigine 25 mg tablet 50 mg PO DAILY Rexulti 4 mg tablet 4 mg PO DAILY ondansetron 4 mg tablet,disintegrating 4 mg PO Q6H PRN (Reason: nausea and vomiting) Qty: 30 0RF prazosin 2 mg capsule 2 mg PO QHS trazodone 100 mg tablet 100 mg PO QHS Rx Instructions: One tablet in AM and 2 tabs at HS metformin 500 mg tablet extended release 24 hr 2,000 mg PO QHS lamotrigine 100 mg tablet 100 mg PO QHS fenofibrate nanocrystallized 48 mg tablet 48 mg PO DAILY Slow Release Iron 140 mg (45 mg iron) tablet extended release 140 mg PO BID hydrocortisone acetate [Anusol-HC] 25 mg suppository 25 mg SC BID 6 Days Qty: 12 0RF cephalexin 500 mg capsule 500 mg PO Q6 Qty: 40 0RF albuterol sulfate 2.5 mg /3 mL (0.083 %) solution for nebulization 2.5 mg inhalation Q4H PRN (Reason: shortness of breath or wheezing) Qty: 180 0RF ipratropium-albuterol 0.5 mg-3 mg(2.5 mg base)/3 mL solution for nebulization 3 ml inhalation Q6H PRN (Reason: Shortness of breath or wheeze) Qty: 90 0RF azelastine 137 mcg (0.1 %) spray,non-aerosol 2 spray intranasal BID Qty: 30 0RF Rx Instructions: administer into each nostril prednisone 20 mg tablet 60 mg PO DAILY Qty: 12 0RF hydrocodone-acetaminophen 5-325 mg tablet 1 tab PO Q6H PRN PRN (Reason: Pain) 3 Days Qty: 10 0RF clindamycin HCl [Cleocin HCl] 300 mg capsule 300 mg PO Q6H Qty: 28 0RF Creon 36,000-114,000- 180,000 unit capsule,delayed release(DR/EC) 2 cap PO TID Qty: 300 11RF Rx Instructions: administer 3 capsules with meals and 1 capsule with snacks. metoprolol succinate [Toprol XL] 100 mg tablet extended release 24 hr 100 mg PO QDAY Qty: 90 3RF Primary Care Provider: Miguelito Unger Referrals: Miguelito Unger MD [Primary Care Provider, [facility]] Activity Restrictions/Additional Instructions: You may alternate Tylenol and either Motrin, Advil, ibuprofen every 4 hours as needed for pain/fever. Take anti-inflammatories with food or drink to help buffer the medication. MAX dose of Tylenol is 3000 mg a day. MAX dose of Motrin, Advil, ibuprofen is 2400 mg a day. Continue taking antibiotic Use [id number] Orajel Follow-up with multiple dentist on the dental list that you were given, also you may follow-up with [facility]. Do not use any heat, use ice 20 minutes on, 20 minutes off as discussed Print Language: Tristanian Disposition Disposition: Home, Self Care Discharge Date/Time: 05/26/25 14:02
== END 2025-05-26 14:02 | disposition home or self-care (01) ==
PROVIDERS: Emergency Provider Emergency Medicine; PCP Family Medicine; Visit Provider Emergency Medicine
DX: K04.7 Periapical abscess without sinus (principal); F31.9 Bipolar disorder, unspecified; E66.01 Morbid (severe) obesity due to excess calories; Z68.44 Body mass index [BMI] 60.0-69.9, adult; E11.9 Type 2 diabetes mellitus without complications; Z79.4 Long term (current) use of insulin; K02.9 Dental caries, unspecified; E55.9 Vitamin D deficiency, unspecified; K21.9 Gastro-esophageal reflux disease without esophagitis; E78.5 Hyperlipidemia, unspecified; F41.9 Anxiety disorder, unspecified; F90.9 Attention-deficit hyperactivity disorder, unspecified type; E28.2 Polycystic ovarian syndrome; E78.1 Pure hyperglyceridemia; M81.0 Age-related osteoporosis without current pathological fracture; G47.30 Sleep apnea, unspecified; J45.909 Unspecified asthma, uncomplicated; Z79.84 Long term (current) use of oral hypoglycemic drugs; Z79.899 Other long term (current) drug therapy
CPT/HCPCS: 99282